=== PATIENT | female | born 1985 | race Caucasian/White ===

== ENCOUNTER 2017-11-26 14:21 | Inpatient (IN) | payer MEDICAID, SELFPAY ==
[2017-11-26] VITALS (18 sets, daily range): BP systolic 106–133; BP diastolic 53–80; PULSE 68–101; RESP 18–19; TEMP 35.9–39.6; O2SAT 95–100
--- NOTE | 2017-11-26 14:46 | ED.GENADUL_ITS ---
Discharge Plan Discharge Details Chief Complaint: Orthopedic Primary Care Provider: Devi Alex ED Provider: Tim Fitzpatrick Home Meds and New Rx's Prescriptions: No Action gabapentin 600 MG tablet PO TID RF: 0 methylphenidate HCl 20 MG tablet 20 mg PO TID RF: 0 buprenorphine-naloxone [Suboxone] 1 EACH film 2 film Sublingual DAILY RF: 0 etonogestrel [Nexplanon] 68 MG implant 1 ea Intradermal DIRECTED RF: 0 escitalopram oxalate [Lexapro] 20 MG tablet 20 g PO DAILY RF: 0 acetaminophen [Tylenol Extra Strength] 500 MG tablet 1,000 mg PO Q6H PRN (Reason: Pain) Qty: 20 RF: 0 ibuprofen 600 MG tablet 600 mg PO Q6H PRN (Reason: Pain) Qty: 16 RF: 0 Medical Decision Making MDM Narrative Medical decision making narrative: 32 yofemale with hx of ivdu on suboxone who recently relapsed, 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 She does have a fever here and is noted to have very red and swollen right knee , likely septic joint. I spoke with Dr. Flores given diffuse redness who recommended proceeding with arthrocentisis which patient consents to. pt remains stable, does have evidence of likely knee infection and on exam has faint systolic murmur at right anterior sternal border. I discussed the case with Dr. Flores who feels she will likely need washout of the knee but will likely due it tomorrow and not tonight and recommends medical admission for workup of possible endocarditis. Spoke with Dr. rivera who accepts the patient for admission. Differential Diagnosis septic joint, cellulitis Lab Data Lab results reviewed: Yes I reviewed the patient's lab results. HPI General Mode of arrival: wheelchair . Date/Time Provider Initiated Documentation: 11/26/17 14:25 . Information obtained by: patient . History of Present Illness 32 year old F presents to the emergency department with the chief complaint of right knee pain, described as severe, with intensity rated at 9. and is localized to the right and upper extremity. Patient reports no radiation. Patient started experiencing this day(s) (2) and it has been constant. No relieving factors improve symptom(s), No exacerbating factors reported . Patient notes no other symptoms.. Patient did receive the following treatments prior to arrival, none Related Data Home Medications Medication Instructions Recorded Confirmed etonogestrel [Nexplanon] 1 ea INTRADERMAL DIRECTED 10/30/16 04/21/17 escitalopram oxalate [Lexapro] 20 g PO DAILY 11/18/16 04/21/17 buprenorphine-naloxone [Suboxone] 2 film SUBLINGUAL DAILY 03/23/17 04/21/17 gabapentin 0 mg PO TID 03/23/17 04/21/17 methylphenidate HCl 20 mg PO TID 03/23/17 04/21/17 Previous Rx's Medication Instructions Recorded acetaminophen [Tylenol Extra 1,000 mg PO Q6H PRN #20 tab-cap 04/21/17 Strength] ibuprofen 600 mg PO Q6H PRN #16 tablet 04/21/17 Allergies Allergy/AdvReac Type Severity Reaction Status Date / Time bupropion HCl AdvReac Intermediate Contraindic Unverified 06/26/17 08:51 [From Wellbutrin SR] ated General Stated Complaint: Orthopedic CELESTE: 3 Review of Systems Review of Systems All systems reviewed & are unremarkable except as noted in HPI and below Constitutional Denies weakness Eyes Patient Denies loss of vision ENT Denies change in voice Cardiovascular Denies chest pain and Denies dyspnea Respiratory Denies dyspnea Gastrointestinal Denies abdominal pain, Denies nausea and Denies vomiting Genitourinary Denies dysuria Neurologic Denies loss of vision and Denies weakness Psychiatric Denies depression Endocrine Denies cold intolerance and Denies heat intolerance Allergic/Immunologic Reports urticaria PFSH Family History Mother No problems noted. Father No problems noted. Brother No problems noted. Grandfather No problems noted. Grandfather No problems noted. Grandmother No problems noted. Grandmother No problems noted. Son No problems noted. Son No problems noted. Daughter No problems noted. Daughter No problems noted. Medical History BV (bacterial vaginosis) Depression HSV infection Hepatitis C antibody test positive Incarceration Long-term current use of methadone for opiate dependence Tobacco use Social History Smoking/Tobacco Use Status: Current every day Surgical History Amputation section (11/24/12) Exam Const General: no acute distress Orientation: alert HENMT Head: normal to inspection Ears: external ears normal General nose exam: external nose normal Mouth: moist mucous membranes Eyes General: appearance normal, both eyes and all related structures Neck Neck: normal visual inspection Resp Effort & Inspection: normal respiratory effort and able to speak in complete sentences Cardio Rate: regular rate Skin General skin exam: erythema Neuro General: alert and oriented x3 Extrem General: normal capillary refill and other (diffuse redness and swelling of the right knee, warm to touch, limited rom) Psych Mental Status: mental status grossly normal Course Vital Signs Temperature 38.1 C H 11/26/17 14:31 Pulse 100 H 11/26/17 14:31 Respiratory Rate 18 11/26/17 14:31 Blood Pressure 121/77 11/26/17 14:31 Pulse Oximetry 98 11/26/17 14:31 Temperature 38.1 C H 11/26/17 14:31 Pulse 100 H 11/26/17 14:31 Respiratory Rate 18 11/26/17 14:31 Blood Pressure 121/77 11/26/17 14:31 Pulse Oximetry 98 11/26/17 14:31 Procedures Joint Aspiration/Injection Joint Asp./Inject. 1: Time Out Performed: Yes Side of body: right Joint Aspirated: knee Ultrasound Guidance: No Skin Prep: Chlorhexidene Local Anesthetic: Lidocaine 2% Amount of anesthesia used (mL): 6 Needle Size Used: 20G Fluid Obtained: bloody Total fluid obtained (mL): 10 Patient Tolerated Procedure: well
[2017-11-26 15:10] LABS: Abs Immature Grans 0.02 k/cumm (0.0-0.09); Absolute Basophil Count 0.02 k/cumm (0.0-0.2); Absolute Eosinophil Count 0.17 k/cumm (0.0-0.7); Absolute Lymphocyte Count 1.91 k/cumm (1.2-3.4); Absolute Monocyte Count 0.76 k/cumm (0.11-0.7); Absolute Neutrophil Count 5.41 k/cumm (1.2-6.7); Basophils % 0.2; Eosinophils % 2.1; HCT 40.6 % (36.0-46.0); HGB 13.5 g/dL (12.0-15.5); Immature Grans % 0.2; Lactate-non-spesis 1.6 mmol/L (0.6-1.4); Mean Corp. HGB Concentration 33.3 g/dL (32.0-36.0); Mean Corpuscular Volume 87.3 fL (80-95); Mean Platelet Volume 9.4 fL (8.0-11.0); Monocytes % 9.2; Neutrophils % 65.3; Platelet Count 263 x1000/uL (130-400); RBC 4.65 m/cumm (4.00-5.20); RBC Distribution Width 13.6 % (11.7-14.6); White Blood Cell Count 8.29 k/cumm (4.4-10.8)
[2017-11-26] MEDS: MORPHine 10 MG/ML VIAL 4 MG IVP ×2 (15:25→16:23)
[2017-11-26] MEDS: Normal Saline 1,000 ML 1000 ML IV (15:26)
[2017-11-26 15:35] LABS: ALT 144 U/L (12-78); AST 55 U/L (15-37); Albumin 4.1 g/dL (3.4-5.0); Alkaline Phosphatase 143 U/L (46-116); BUN 9 mg/dL (7-18); Bilirubin, Total 0.5 mg/dL (0.2-1.0); CREATININE 0.72 mg/dL (0.55-1.02); Calcium 9.1 mg/dL (8.5-10.1); Chloride 97 mmol/L (98-107); Glucose 106 mg/dL (70-100); Magnesium 2.1 mg/dL (1.8-2.4); Sodium 135 mmol/L (136-145); Total Protein 9.2 g/dL (6.4-8.2)
[2017-11-26 15:41] LABS: Clarity CLOUDY; Nucleated Cells 6010 /MM3 (0-0); Source R KNEE
[2017-11-26 16:04] LABS: Mononuclear Cells 14 % (0-0); Polynuclear Cells 86 % (0-0)
[2017-11-26] MEDS: VANCOMYCIN 1,000 MG in Normal Saline 250 ML 166.6666 MG IVPB (17:09)
[2017-11-26] MEDS: VANCOMYCIN 1,250 MG in Normal Saline 250 ML 166.6666 MG IVPB (17:45)
[2017-11-26] MEDS: Ibuprofen 800 MG TAB PO (19:48)
[2017-11-26] MEDS: Acetaminophen 325 MG TAB 650 MG PO (19:49)
--- NOTE | 2017-11-26 20:40 | W.PM.HP.N ---
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 She states that she has been clean for over a year now other than being on prescription suboxone. She is willing to undergo drug screen. At present she wants something for the pain in her right knee. I am only willing to treat her pain w/ NSAID's and will give her Toradol injectable for her pain. I spoke w/ Dr. Flores and he will evaluate her knee in the morning to aspirate the joint. For now she will be kept on broad spectrum antibiotics for presumptive staph bacteremia/septic arthritis/endocarditis until proven otherwise. She was started on Ceftriaxone 2 gm IVPB Q24hr and Vancomycin 1 gm Q8hr. I will ask pharmacy to dose her vancomycin w/ goal of trough of 15 to 20. History of Present Illness Chief Complaint: Fever with right knee pain and swelling and redness Narrative: 32-year-old female with a history of endocarditis and previous osteomyelitis of her right lower leg who is now status post right BKA is into the emergency department with a 2-day history of pain and swelling with redness over her right kneecap. She wears a prosthesis over her right BKA and has a abrasion over the end of the stump without any drainage from that. She states she has been having fevers of 102. Upon evaluation emergency department she was found to have a temperature of 38.1 Celsius. But surprisingly she had no leukocytosis with a total white cell count of 8200. Dr. Tim Fitzpatrick saw the patient and he did a tap of the right knee for which he says he genoveva off pus. Preliminary Gram stain showed no bacteria but many white blood cells. Cell count showed 6000 nucleated cells with 86% PMNs and 14% mononuclear cells in the fluid was cloudy. Fluid culture was sent and blood cultures were obtained and patient was started on broad-spectrum antibiotics including vancomycin. Review of Systems Constitutional Reports as per HPI Musculoskeletal Reports joint swelling (right knee) PFSH Family History Mother No problems noted. Father No problems noted. Brother No problems noted. Grandfather No problems noted. Grandfather No problems noted. Grandmother No problems noted. Grandmother No problems noted. Son No problems noted. Son No problems noted. Daughter No problems noted. Daughter No problems noted. Medical History BV (bacterial vaginosis) Depression HSV infection Hepatitis C antibody test positive Incarceration Long-term current use of methadone for opiate dependence Tobacco use Social History Smoking/Tobacco Use Status: Current every day Surgical History Amputation section (11/24/12) Meds Home Medications Medication Instructions Recorded Confirmed Type etonogestrel [Nexplanon] 1 ea INTRADERMAL DIRECTED 10/30/16 04/21/17 History escitalopram oxalate [Lexapro] 20 g PO DAILY 11/18/16 04/21/17 History buprenorphine-naloxone [Suboxone] 2 film SUBLINGUAL DAILY 03/23/17 11/27/17 History gabapentin 0 mg PO TID 03/23/17 11/27/17 History methylphenidate HCl 20 mg PO TID 03/23/17 11/27/17 History Allergies Allergy/AdvReac Type Severity Reaction Status Date / Time bupropion HCl AdvReac Intermediate Contraindic Unverified 06/26/17 08:51 [From Wellbutrin SR] ated Exam Const General: cooperative, well developed and ill appearing Nutritional Appearance: thin Orientation: alert, awake and oriented x3 HENMT Head: normal to inspection, normocephalic and atraumatic Ears: hearing grossly normal bilaterally General nose exam: external nose normal Face and sinus: normal facial exam Mouth: oral mucosae normal Eyes General: appearance normal, both eyes and all related structures Eyelids: eyelids normal Conjunctivae: conjunctivae normal Sclera: sclerae normal Cornea: corneas normal Pupils: PERRL EOM: EOM intact bilaterally Neck Neck: normal visual inspection, full ROM and no lymphadenopathy Carotids: normal carotid upstroke Lymphatic: no lymphadenopathy noted Resp Effort & Inspection: normal respiratory effort and able to speak in complete sentences Auscultation: clear to auscultation bilaterally Cardio Jugular venous pressure: no JVD Palpation: normal PMI Rate: regular rate Rhythm: regular rhythm Heart Sounds: S2 normal, normal, physiologic split S2 and murmur systolic early, crescendo, soft and at the apex Bruits: no abdominal aortic bruits and no carotid bruits GI Inspection: normal to inspection Palpation: soft, no hepatosplenomegaly and nontender Percussion: normal to percussion Auscultation: normal bowel sounds Skin General skin exam: erythema (over right patella) Neuro General: alert, awake, oriented x3, moves all extremities, normal light touch, pain and propioception and no focal motor deficits Extrem General: amputation noted Below the knee: right and edema Laterality: right Right lower extremity: knee Details: tenderness Location: of the patella Details: superiorly and swelling Location: of the pre-patellar area Results Imaging Imaging Studies: Patient Name: Tosha ROBERTS #: [id number]: ER Ordering Provider: Reymundo George NPAccount #: [id number]: [facility] ER Primary Care Provider: Devi Alex NPDate of Exam: 04/21/17ex: F : 1985Age: 31 Exam(s) [id number] RAD:Right Knee 3 View Complete [id number] RAD:Right Tib/Fib SYMPTOMS/DIAGNOSIS: BLUNT TRAUMA TO RIGHT KNEE, S/P [id number] AMPUTATION, FALL ONTO AMPUTATION RIGHT KNEE: Three views were obtained. No fracture is seen. RIGHT LEG: Two views were obtained. There is a [id number]-[id number]-[id number] amputation with multiple surgical clips projected at the amputation site. There is no evidence of acute fracture. Ordered By: Reymundo George SORT LINE CC: Dictated By: Joesph Lyman M.D. 04/21/17 1518 <Electronically signed by Joesph Lyman M.D.> 04/21/17 1529 Transcribed By: Arnold Cain 04/21/17 1522 Labs : 11/26/17 15:00 11/27/17 07:30 Laboratory Results - last 24 hr 11/26/17 11/26/17 11/26/17 15:00 15:00 15:00 WBC 8.29 RBC 4.65 Hgb 13.5 Hct 40.6 MCV 87.3 MCH 29.0 MCHC 33.3 RDW 13.6 Plt Count 263 MPV 9.4 Immature Gran % 0.2 Neutrophils % 65.3 Lymphocytes % 23.0 Monocytes % 9.2 Eosinophils % 2.1 Basophils % 0.2 Absolute Neutrophils 5.41 Absolute Lymphocytes 1.91 Absolute Monocytes 0.76 H Absolute Eosinophils 0.17 Absolute Basophils 0.02 Sodium 135 L Potassium 4.0 Chloride 97 L Carbon Dioxide 28.0 Anion Gap 10.0 BUN 9 Creatinine 0.72 Estimated GFR/1.73 m2 >= 60.00 Glucose 106 H Lactate 1.6 H Calcium 9.1 Magnesium 2.1 Total Bilirubin 0.5 AST 55 H ALT 144 H Alkaline Phosphatase 143 H Total Protein 9.2 H Albumin 4.1 Fluid Source Fluid Color Fluid Appearance Fluid WBC Fluid Mononuclear Cell Fl Polymorphonucl Cell Fluid Crystals Fluid Crystal Source 11/26/17 11/26/17 15:06 15:06 WBC RBC Hgb Hct MCV MCH MCHC RDW Plt Count MPV Immature Gran % Neutrophils % Lymphocytes % Monocytes % Eosinophils % Basophils % Absolute Neutrophils Absolute Lymphocytes Absolute Monocytes Absolute Eosinophils Absolute Basophils Sodium Potassium Chloride Carbon Dioxide Anion Gap BUN Creatinine Estimated GFR/1.73 m2 Glucose Lactate Calcium Magnesium Total Bilirubin AST ALT Alkaline Phosphatase Total Protein Albumin Fluid Source R knee Fluid Color Red Fluid Appearance Cloudy Fluid WBC 6010 H Fluid Mononuclear Cell 14 H Fl Polymorphonucl Cell 86 H Fluid Crystals See comment Fluid Crystal Source R knee
[2017-11-26] MEDS: Gabapentin 600 MG TAB PO (21:46)
[2017-11-26] MEDS: oxyCODONE 10 MG TAB PO (21:46)
[2017-11-26] MEDS: Normal Saline Flush 10 ML SYR IVP (21:55)
[2017-11-27] VITALS (23 sets, daily range): BP systolic 93–146; BP diastolic 44–81; PULSE 56–141; RESP 11–22; TEMP 36.3–37; O2SAT 95–100
[2017-11-27] MEDS: Ketorolac 30 MG/ML VIAL IVP ×3 (04:17→19:59)
[2017-11-27] MEDS: Normal Saline Flush 10 ML SYR IVP ×3 (04:20→22:49)
[2017-11-27] MEDS: VANCOMYCIN 1,000 MG in Normal Saline 250 ML 166.667 MG IVPB ×3 (06:52→21:18)
[2017-11-27] MEDS: Methylphenidate 10 MG TAB 20 MG PO ×3 (07:54→17:00)
[2017-11-27] MEDS: Gabapentin 600 MG TAB PO ×3 (07:55→19:58)
[2017-11-27 08:00] LABS: ALT 86 U/L (12-78); AST 30 U/L (15-37); Albumin 2.6 g/dL (3.4-5.0); Alkaline Phosphatase 88 U/L (46-116); Anion Gap 6.4 mmol/L (3-11); BUN 12 mg/dL (7-18); Bilirubin, Total 0.2 mg/dL (0.2-1.0); CO2 24.6 mmol/L (21.0-32.0); CREATININE 0.53 mg/dL (0.55-1.02); Calcium 8.2 mg/dL (8.5-10.1); Chloride 107 mmol/L (98-107); Glucose 115 mg/dL (70-100); Potassium 4.3 mmol/L (3.5-5.1); Sodium 138 mmol/L (136-145); Total Protein 6.4 g/dL (6.4-8.2)
--- NOTE | 2017-11-27 08:05 | MERGE_ITS ---
*[facility]* *[facility]* [address] [place] [address] Date of study: 11/27/2017 Transthoracic Echocardiography M-mode, complete 2D, complete spectral Doppler, and color Doppler *STUDY CONCLUSIONS* Impressions: No evidence of endocarditis, however, sensitivity for this finding on TTE is < 50%. LV/RV function has improved. Summary: 1. Left ventricle: The cavity size was normal. Wall thickness was normal. Systolic function was normal. The estimated ejection fraction was 55-60%. Wall motion was normal; there were no regional wall motion abnormalities. 2. Mitral valve: Mild thickening. There was mild regurgitation. 3. Right ventricle: The cavity size was normal. Wall thickness was normal. Systolic function was normal. 4. Pulmonic valve: Peak gradient (S): 6.7mm Hg. *PATIENT PRESENTATION* Height: 172.7cm ((68in) ) S/D Pressure: 115 / 70 Weight: 55.8kg ((122.7lb) ) BSA: 1.63m^2 Test start time: 08:05 AM. Test stop time: 09:12 AM. PERFORMING Unknown PERFORMING [facility] ORDERING Robbin Curtis REFERRING Robbin Curtis VICE PRESIDENT OF BUSINESS DEVELOPMENT Mary Felix *PROCEDURE DATA* Procedure information: This study was interpreted by [facility]. Pertinent images and digital data are archived for permanent storage and are available for subsequent review. Comparison was made to the study of 11/27/2016. Study status: Routine. Transthoracic echocardiography. M-mode, complete 2D, complete spectral Doppler, and color Doppler. A Transthoracic Echocardiogram was performed. Scanning was performed from the parasternal, apical, subcostal, and suprasternal notch acoustic windows. Images were obtained using an [employer] SC 2000 cardiac ultrasound machine. Image quality was fair. Study completion: The patient tolerated the procedure well. History: PMH: Hx endocarditis, Sepitc *CARDIAC ANATOMY* Left ventricle: The cavity size was normal. Wall thickness was normal. Systolic function was normal. The estimated ejection fraction was 55-60%. Wall motion was normal; there were no regional wall motion abnormalities. The study is not technically sufficient to allow evaluation of LV diastolic function. There was no evidence of elevated ventricular filling pressure by Doppler parameters. Aortic valve: Trileaflet; normal thickness leaflets. Mobility was not restricted. Doppler: Transvalvular velocity was within the normal range. There was no stenosis. There was no regurgitation. VTI ratio of LVOT to aortic valve: 0.79. Peak velocity ratio of LVOT to aortic valve: 0.77. Mean velocity ratio of LVOT to aortic valve: 0.62. Mean gradient (S): 6.2mm Hg. Peak gradient (S): 9.7mm Hg. Aorta: Aortic root: The aortic root was normal in size. Mitral valve: Mild thickening. Mobility was not restricted. Doppler: Transvalvular velocity was within the normal range. There was no evidence for stenosis. There was mild regurgitation. Valve area by pressure half-time: 4.7cm^2. Indexed valve area by pressure half-time: 2.9cm^2/m^2. Peak gradient (D): 2.7mm Hg. Left atrium: The atrium was normal in size. Right ventricle: The cavity size was normal. Wall thickness was normal. Systolic function was normal. Pulmonic valve: Poorly visualized. Doppler: Transvalvular velocity was within the normal range. There was no evidence for stenosis. There was no regurgitation. Peak gradient (S): 6.7mm Hg. Tricuspid valve: Structurally normal valve. Doppler: Transvalvular velocity was within the normal range. There was no evidence for stenosis. There was trivial regurgitation. Pulmonary artery: Pulmonary systolic pressure was within the normal range. Main pulmonary artery: The artery was not well visualized. Right atrium: The atrium was normal in size. Pericardium: There was no pericardial effusion. Systemic veins: Inferior vena cava: The vessel was patent and normal in size. The respirophasic diameter changes were in the normal range (greater than or equal to 50%), consistent with normal central venous pressure. Measurements Left ventricle Value 11/27/2016 Reference LV ID, ED, PLAX 4.6 cm 4.8 3.5 - 6.0 LV ID, ES, PLAX 2.9 cm 3.7 2.1 - 4.0 LV PW thickness, ED, PLAX 0.8 cm 0.9 LV end-diastolic volume, 1-p 106 ml 85 A2C LV ejection fraction, 1-p 59 % A2C LV end-diastolic volume, 1-p 86 ml 76 A4C LV ejection fraction, 1-p 56 % A4C Ventricular septum Value 11/27/2016 Reference IVS thickness, ED, PLAX 0.7 cm 1.0 LVOT Value 11/27/2016 Reference LVOT peak velocity, S 1.2 m/sec 1.3 LVOT mean velocity, S 0.75 m/sec LVOT VTI, S 19.7 cm 19.2 LVOT peak gradient, S 5.7 mm Hg 6.7 LVOT mean gradient, S 2.7 mm Hg 3.1 Aortic valve Value 11/27/2016 Reference Aortic valve peak velocity, 1.6 m/sec S Aortic valve mean velocity, 1.2 m/sec S Aortic valve VTI, S 25.1 cm Aortic mean gradient, S 6.2 mm Hg Aortic peak gradient, S 9.7 mm Hg VTI ratio, LVOT/AV 0.79 Velocity ratio, peak, 0.77 LVOT/AV Velocity ratio, mean, 0.62 LVOT/AV Aorta Value 11/27/2016 Reference Aortic root ID, ED 2.9 cm 2.8 Left atrium Value 11/27/2016 Reference LA ID, A-P, ES 3.0 cm LA ID/bsa, A-P 1.9 cm/m^2 <=2.2 LA area, ES, A4C 12.9 cm^2 14 8.8 - 23.4 LA area, ES, A2C 13 cm^2 LA volume/bsa, S 23 ml/m^2 LA volume, ES, 2-p 34 ml LA volume/bsa, ES, 2-p 21 ml/m^2 LA/aortic root ratio 1.05 1.18 Mitral valve Value 11/27/2016 Reference Mitral E-wave peak velocity 0.82 m/sec 0.91 Mitral A-wave peak velocity 1 m/sec 0.87 Mitral deceleration time 162 ms 150 - 230 Mitral pressure half-time 47 ms 44 Mitral peak gradient, D 2.7 mm Hg Mitral E/A ratio, peak 0.82 1.05 Mitral valve area, PHT, DP 4.7 cm^2 5 Right atrium Value 11/27/2016 Reference RA area, ES, A4C 9.5 cm^2 13 8.3 - 19.5 Pulmonic valve Value 11/27/2016 Reference Pulmonic peak gradient, S 6.7 mm Hg Legend: (L) and (H) carissa values outside specified reference range. I have personally reviewed the images and have reviewed and edited the reported findings. Electronically signed by Ermelinda Balderrama 11/27/2017:41
[2017-11-27 08:38] LABS: *AMPHETAMINES SCREEN URINE Negative (Negative); *BARBITURATES SCREEN URINE Negative (Negative); *BENZODIAZEPINES SCREEN URINE Negative (Negative); Cannabinoids THC Negative (Negative); Cocaine Screen,Urine Negative (Negative); METHADONE URINE SCREEN Negative (Negative); OPIATES URINE SCREEN Negative (Negative)
[2017-11-27 08:39] LABS: Tricyclic Antidepressants Negative (Negative)
[2017-11-27] MEDS: Lactated Ringers 1,000 ML 200 ML IV (09:40)
[2017-11-27 10:13] LABS: HCG Qual (Urine) Negative
[2017-11-27] MEDS: LORazepam 2 MG/ML VIAL 1 MG IVP ×2 (11:44→23:58)
--- NOTE | 2017-11-27 11:47 | PHARADMIT ---
Addendum entered by Konstantin Arias III 12/03/17 12:43: Pharmacy Note Subjective MD spoke to [facility], DEBORAH showed vegetation on heart valves. Smiley case. Oxacillin started. MRI of knee showed no osteo only pre-patelar swelling. Objective VS-OK Lytes, SCr, WBC, H&H,Plts-OK BG-135 Last BM 11/29 Assessment Oxacillin 2gm IV q4hrs started x 6 weeks. Plan IV restarted, (4th restart). Patient need 6 weeks of IV ABX. Original Note: Addendum entered by Konstantin Arias III 12/02/17 15:02: Pharmacy Note Subjective Patient had DEBORAH today (no results yet) wwill follow with CAT scan and then determine if 6 weeks of IV ABX are warranted. Spiked fever (38.5C) Objective Temp-37.4C VS-OK SCr-0.61 (Vanco trough-24.6) No other Labs, No BM reported since 11/29 Assessment Vancomycin dose adjusted to 1,250mg IV q8hr, restarting at 1800 Plan Patient not pleased at the prospect of 6weeks of IV ABX Original Note: Addendum entered by Konstantin Arias III 11/30/17 10:44: Pharmacy Note Subjective Spiked fever (38.C) BP-up (151/92). Stump infection of BKA, awaiting sensitivities. Objective K+4.6 Na-140 H&H-9.7/30.3 WBC-4.62 Assessment Vancomycin trough mis-drawn, reschedule trough for 1300 today. Jennifer Case Plan MD to schedule DEBORAH, patient refuses Drug Urine screening. MD suspects illicit activities in her room. Original Note: Addendum entered by Khloe Gibson 11/29/17 14:06: vanco trough came back low at 12.9, so vanco dosing changed to 1 gram Q6H to target a trough of 16.3 vanco trough scheduled for tomorrow morning at @0700 suboxone dosing was increased starting tomorrow Original Note: Addendum entered by Khloe Gibson 11/29/17 09:58: Pharmacy Note Subjective md wants to avoid opiates for pain control as much as possible (currently none ordered) Objective bp-144/100 hr-92 h/h-9.7/30.3 Assessment -synovial knee culture grew staph, one of the two blood cultures grew gram+ cocci, other had no growth -vanco and ceftriaxone continue, vanco trough scheduled for this afternoon duloxetine ordered, acetaminophen changed from PO PRN to IV scheduled, IV ketorolac discontinued, lorazepam discontinued Plan adjust vanco dosing if needed based on trough this afternoon Original Note: Admission Pharmacy Clinical Review dysphagia Code Status Full Code Current Weight 56.245 kg Renally Cleared and Narrow Therapeutic Index Meds crcl ~104ml/min QTc Value / Action Taken BP Control, Fever 125/63 afebrile Electrolytes reviewed ok DVT Prophylaxis no, surgery today Opiate Usage / Scheduled Bowel Regimen Ordered no/prn Plt/SCr for Heparin / Enoxaparin 263/0.53 INR for Warfarin na H/H stable, WBC/Bands 13.5/40.6 wbc 8.29 Antibiotic appropriateness vanco, one dose ceftriaxone given yesterday Cultures and Sensitivities Bc pending, synovial knee fluid no growth 24 hours Surgical ABX d/c within 24 hr na DM control / Insulin Dosing na Heart Failure (Check EF%) (ANABELLA's, B-Block, Diuretics) na IV to PO Switch Home Meds Reviewed Home Meds Not Ordered etonogestrel [Nexplanon] 1 ea INTRADERMAL DIRECTED 10/30/16 escitalopram oxalate [Lexapro] 20 g PO DAILY 11/18/16 buprenorphine-naloxone [Suboxone] 2 film SUBLINGUAL DAILY 03/23/17 ibuprofen 600 mg PO Q6H PRN #16 tablet 04/21/17 [Rx] Comments
--- NOTE | 2017-11-27 12:09 | ROE_ITS ---
DATE OF PROCEDURE: November 27, 2017 PREOPERATIVE DIAGNOSIS: Possible septic arthritis right knee. POSTOPERATIVE DIAGNOSIS: Prepatellar bursa infection, right. PROCEDURE: 1. Aspiration right knee. 2. Aspiration prepatellar bursa, right. ANESTHESIA: General, Arron Hillman CRNA SURGEON: Joesph Flores M.D. 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 She was being treated with Suboxone but admits that she has lapsed and has begun injecting opioids again . She presented to the Emergency Room yesterday with a painful, erythematous and swollen right knee. Tim Fitzpatrick M.D. initially saw her and performed an aspiration of her knee at my direction. The aspiration revealed 6000 white cells, 80% of them polys. It was presumed that she had a septic arth ritis of her right knee. This was decided when she had the previous below knee amputation for osteom yelitis. It was felt that she needed an arthroscopic washout to treat her infection. It would also require prolonged IV antibiotic administration for the infection. This would require insertion of a PICC line. The patient was taken to the operating room on 11/26/17 directly from the cardiac echo. I had not had a chance to see the patient until she presented to the operating room. On examination in PACU I tho ught that the patient actually had a prepatellar bursa infection. I thought that the aspiration that had been performed had been of the prepatellar bursa and not her knee. The nurse who inserts the PI CC line was not available. IV access was a problem. I discussed her case fully with Denisse the Nurse Supervisor [employer]. I felt that she probably will not need an arthroscopic washout of her knee. In order to confirm the diagnosis, I recommended that they star t a midline IV. I don't think that she's going to need anything long-term IV. I then would proceed to aspirate her knee. If there was no fluid in her knee, I would then proceed to aspirate the prepat ellar bursa in order to confirm that this is a prepatellar bursa infection. I would not recommend an y surgical procedure for a prepatellar bursa infection. If fluid is retrieved from the knee, would p roceed with a formal arthroscopic washout of her knee. The patient agreed with my treatment plan. PROCEDURE: The patient was taken to the operating room, placed supine on the operating table and a g eneral anesthetic was administered. With a sterile technique I inserted an 18 gauge needle into her knee, along with a 20 cc syringe. I was not able to aspirate any fluid from her knee. I then took a new 18 gauge needle with a 20 cc syringe and inserted it in the prepatellar bursa. I removed about 10 cc's of some bloody fluid from the prepatellar bursa. I felt at this point that the diagnosis was confirmed that this was a prepatellar bursa infection and not a septic arthritis of her right knee. The patient's anesthesia was reversed without complications. She was discharged to recovery in good condition.
--- NOTE | 2017-11-27 12:33 | PDOC.ANES ---
Date of service: 11/27/17 Time of Service: 09:40 Midline Placement: Consent received after patient made aware and all questions answered. Time out performed. Left upper arm cleaned with chlorhexadine. Ultrasound used to obtain target vessel (basilic Vein). Lidocaine injected into skin/subcutaneously. 20 gauge Powerglide pro midline catheter placed under direct ultrasound visualization and flash obtained. Guidewire advanced without resistance and catheter advanced into vessel with ease. Positive venous blood return noted and line connected to crystalloid fluid. Line dressed with statlock device and tegaderm. Positive blood return and easy to flush line. No complications encountered with this one provider one attempt procedure. Pt. tolerated very well.
--- NOTE | 2017-11-27 13:37 | W.PM.PROGNOT ---
Date of service: 11/27/17 Time of Service: 13:37 Assessment and Plan (1) Prepatellar bursitis of right knee: Current visit: No Status: Acute Continue broad-spectrum antibiotics until we get the results of her blood cultures and prepatellar bursal fluid culture. Continue NSAIDs for pain control. Patient's been resumed on her outpatient dose of Suboxone. No further narcotics will be ordered for her pain. Await results of her cultures and if no bacteremia then she can be discharged over the weekend on oral antibiotics, however, given her prior hx of endocarditis and osteomyelitis, I would await all culture reports and sensitivities before making a disposition and deciding on oral agents. I would even consider observation on oral antibiotics for 24 hr before discharge if the patient will allow. Case was reviewed w/ Dr. Flores Subjective Interval history since last seen: Patient's fevers have come down overnight since initiation of IV antibiotics. She is currently afebrile at 36.3. Dr. Flores took the patient to surgery and drain the right knee prepatellar bursa which was the source of her infection. Dr. Flores showed me pictures of her knee and indicated that she did not have a joint infection but had a prepatellar bursitis and that the site of aspiration perform by the emergency room personnel was from the prepatellar bursa and not from the knee joint itself. The preliminary reading on the right knee aspirate culture is that there is no growth. Analysis for crystals showed no evidence for crystals in the fluid. Blood cultures from yesterday are still pending. She remains on vancomycin and ceftriaxone empirically. Patient underwent an transthoracic echocardiogram this morning and no vegetations were seen. However the caveat is that a transthoracic echo is less than 50% sensitive for picking up endocarditis. Her left ventricular cavity size was normal with normal wall thickness and normal systolic function with no regional wall motion abnormalities. Mitral valve showed mild thickening with mild regurgitation. Right ventricular cavity size and wall thickness and systolic function was normal. I told Denisse that as long as her blood cultures show no evidence of bacteremia then she could be discharged home on oral antibiotics but I would not discharge her until we get the results of both her blood cultures and her prepatellar bursal fluid culture. For now keep her on ceftriaxone and vancomycin given her prior history of endocarditis. Exam Narrative Exam Narrative: I met Denisse in the intensive care unit after she had been brought back from surgery and nursing staff is getting ready to wheel her out to the medical/surgical floor. Examination of her right knee shows a marked decrease in the swelling and erythema. The prepatellar surface of her knee still has some mild to moderate erythema but the increased warmth that was noted last night has resolved. Furthermore her knee is less tender. Although the patient is requesting further Toradol. Objective Objective Clinical Data: Abnormal lab results 11/26/17 11/26/17 11/26/17 Range/Units 15:00 15:00 15:00 Absolute Monocytes 0.76 H (0.11-0.7) k/cumm Sodium 135 L (136-145) mmol/L Chloride 97 L (98-107) mmol/L Creatinine (0.55-1.02) mg/dL Glucose 106 H (70-100) mg/dL Lactate 1.6 H (0.6-1.4) mmol/L Calcium (8.5-10.1) mg/dL AST 55 H (15-37) U/L ALT 144 H (12-78) U/L Alkaline Phosphatase 143 H (46-116) U/L Total Protein 9.2 H (6.4-8.2) g/dL Albumin (3.4-5.0) g/dL Fluid WBC (0-0) /MM3 Fluid Mononuclear Cell (0-0) % Fl Polymorphonucl Cell (0-0) % 11/26/17 11/27/17 Range/Units 15:06 07:30 Absolute Monocytes (0.11-0.7) k/cumm Sodium (136-145) mmol/L Chloride (98-107) mmol/L Creatinine 0.53 L (0.55-1.02) mg/dL Glucose 115 H (70-100) mg/dL Lactate (0.6-1.4) mmol/L Calcium 8.2 L (8.5-10.1) mg/dL AST (15-37) U/L ALT 86 H (12-78) U/L Alkaline Phosphatase (46-116) U/L Total Protein (6.4-8.2) g/dL Albumin 2.6 L (3.4-5.0) g/dL Fluid WBC 6010 H (0-0) /MM3 Fluid Mononuclear Cell 14 H (0-0) % Fl Polymorphonucl Cell 86 H (0-0) % Vital Signs Temp 36.3 C L 11/27/17 13:11 Pulse 100 H 11/27/17 13:11 Resp 20 11/27/17 13:11 BP 133/73 11/27/17 13:11 Pulse Ox 100 11/27/17 13:11 Intake & Output 11/26/17 11/27/17 11/27/17 23:59 11:59 23:59 Intake Total 1810 / 1810 602.778 / 602.778 150 / 150 Output Total 900 / 900 Balance 1810 / 1810 -297.222 / -297.222 150 / 150 Weight 56.245 kg Intake: IV 250 / 250 602.778 / 602.778 150 / 150 Oral 1560 / 1560 Output: Urine 900 / 900 Other: Urine Color Yellow Urine Appearance Cloudy Emesis Description None None Laboratory Results WBC 8.29 k/cumm (4.4-10.8) 11/26/17 15:00 RBC 4.65 m/cumm (4.00-5.20) 11/26/17 15:00 Hgb 13.5 g/dL (12.0-15.5) 11/26/17 15:00 Hct 40.6 % (36.0-46.0) 11/26/17 15:00 MCV 87.3 fL (80-95) 11/26/17 15:00 MCH 29.0 pg (27.0-33.0) 11/26/17 15:00 MCHC 33.3 g/dL (32.0-36.0) 11/26/17 15:00 RDW 13.6 % (11.7-14.6) 11/26/17 15:00 Plt Count 263 x1000/uL (130-400) 11/26/17 15:00 MPV 9.4 fL (8.0-11.0) 11/26/17 15:00 Immature Gran % 0.2 11/26/17 15:00 Neutrophils % 65.3 11/26/17 15:00 Lymphocytes % 23.0 11/26/17 15:00 Monocytes % 9.2 11/26/17 15:00 Eosinophils % 2.1 11/26/17 15:00 Basophils % 0.2 11/26/17 15:00 Absolute Neutrophils 5.41 k/cumm (1.2-6.7) 11/26/17 15:00 Absolute Lymphocytes 1.91 k/cumm (1.2-3.4) 11/26/17 15:00 Absolute Monocytes 0.76 k/cumm (0.11-0.7) H 11/26/17 15:00 Absolute Eosinophils 0.17 k/cumm (0.0-0.7) 11/26/17 15:00 Absolute Basophils 0.02 k/cumm (0.0-0.2) 11/26/17 15:00 Sodium 138 mmol/L (136-145) 11/27/17 07:30 Potassium 4.3 mmol/L (3.5-5.1) 11/27/17 07:30 Chloride 107 mmol/L (98-107) 11/27/17 07:30 Carbon Dioxide 24.6 mmol/L (21.0-32.0) 11/27/17 07:30 Anion Gap 6.4 mmol/L (3-11) 11/27/17 07:30 BUN 12 mg/dL (7-18) 11/27/17 07:30 Creatinine 0.53 mg/dL (0.55-1.02) L 11/27/17 07:30 Estimated GFR/1.73 m2 >= 60.00 (mL/min/1.73m2) 11/27/17 07:30 Glucose 115 mg/dL (70-100) H 11/27/17 07:30 Lactate 1.6 mmol/L (0.6-1.4) H 11/26/17 15:00 Calcium 8.2 mg/dL (8.5-10.1) L 11/27/17 07:30 Magnesium 2.1 mg/dL (1.8-2.4) 11/26/17 15:00 Total Bilirubin 0.2 mg/dL (0.2-1.0) 11/27/17 07:30 AST 30 U/L (15-37) 11/27/17 07:30 ALT 86 U/L (12-78) H 11/27/17 07:30 Alkaline Phosphatase 88 U/L (46-116) 11/27/17 07:30 Total Protein 6.4 g/dL (6.4-8.2) 11/27/17 07:30 Albumin 2.6 g/dL (3.4-5.0) L 11/27/17 07:30 Urine HCG, Qual Negative 11/27/17 07:58 Fluid Source R knee 11/26/17 15:06 Fluid Color Red 11/26/17 15:06 Fluid Appearance Cloudy 11/26/17 15:06 Fluid WBC 6010 /MM3 (0-0) H 11/26/17 15:06 Fluid Mononuclear Cell 14 % (0-0) H 11/26/17 15:06 Fl Polymorphonucl Cell 86 % (0-0) H 11/26/17 15:06 Fluid Crystals See comment 11/26/17 15:06 Fluid Crystal Source R knee 11/26/17 15:06 Fl Crystal Path Review See comment 11/26/17 15:06 Urine Opiates Screen Negative (Negative) 11/27/17 07:58 Urine Methadone Screen Negative (Negative) 11/27/17 07:58 Ur Barbiturates Screen Negative (Negative) 11/27/17 07:58 Ur Tricyclics Screen Negative (Negative) 11/27/17 07:58 Ur Amphetamines Screen Negative (Negative) 11/27/17 07:58 U Benzodiazepines Scrn Negative (Negative) 11/27/17 07:58 Urine Cocaine Screen Negative (Negative) 11/27/17 07:58 Ur THC Screen Negative (Negative) 11/27/17 07:58 Path Cons Comment 11/26/17 15:06
--- NOTE | 2017-11-27 14:17 | PDOC.CMIN ---
- If Service Date Differs Date of service: 11/27/17 Time of Service: 14:17 Care Management Initial Assess REASON FOR HOSPITALIZATION:: Prepatellar brusitis of right knee. PAST MEDICAL HISTORY/PAST SURGICAL HISTORY:: Endocarditis, sepsis, Hep C, HSV, staphylococcus aureus bacteremia, mitral and tricuspid regurgitation, acute kidney injury, respiratory failure, opioid dependence, anemia, anxiety, PE, osteomyelitis. Surgical hx: R BKA, section. PREVIOUS FUNCTIONAL STATUS/SOCIAL/FAMILY SUPPORTS:: Denisse resides in [facility] in her mother's home. Her mother has custody of her 2 1/2 year old daughter, Jessica, who lives with them. Denisse had been working at the [employer] up until recently. She stopped working due to the long hours on her feet; Denisse has a right BKA. Denisse has a prosthetic leg and reports that she is getting a new one d/t changes in her stump size. She is independent with her ADLs. CURRENT FUNCTIONAL STATUS:: Denisse is sitting in her bed with boyfriend, Carlos, and two friends (one of whom is a pt at [facility]) at bedside. She is engaged in conversation, makes good eye contact and is talkative. She is receiving IV fluids and antibiotics and is being monitored on telemetry. ADVANCE DIRECTIVES:: None on file at [facility]. Has patient been provided with information about the portal?: No Did the patient sign up for the portal?: No CODE STATUS:: Full Code INSURANCE COVERAGE / FINANCIAL ISSUES:: Medicaid. CURRENT HOME/COMMUNITY SERVICES/EQUIPMENT:: No current home or community services. Denisse is interested in applying for disability. She has a prosthetic leg d/t a right BKA. PRIMARY CARE PHYSICIAN:: Devi Alex is on file, however Denisse reports that her PCP is Berenice Pavon. POTENTIAL DISCHARGE NEEDS:: Follow up appointment with PCP. PATIENT/FAMILY EDUCATION NEEDS:: Discharge education, any limitations and follow up plan of care. Ask Me Three discussion. ANTICIPATED BARRIERS TO DISCHARGE:: No anticipated barriers to discharge. TRANSPORTATION:: Denisse will transport via private vehicle with her boyfriend, Carlos. PLAN:: Denisse will discharge home when medically ready per MD. Anticipate pt will discharge with no services and follow up with PCP. Denisse will transport via private vehicle with her boyfriend, Carlos. CM will continue to provide support to patient and care team regarding discharge planning and disposition.
--- NOTE | 2017-11-27 14:37 | INITIAL_ITS ---
- If Service Date Differs Date of service: 11/27/17 Time of Service: 14:17 Care Management Initial Assess REASON FOR HOSPITALIZATION:: Prepatellar brusitis of right knee. PAST MEDICAL HISTORY/PAST SURGICAL HISTORY:: Endocarditis, sepsis, Hep C, HSV, staphylococcus aureus bacteremia, mitral and tricuspid regurgitation, acute kidney injury, respiratory failure, opioid dependence, anemia, anxiety, PE, osteomyelitis. Surgical hx: R BKA, section. PREVIOUS FUNCTIONAL STATUS/SOCIAL/FAMILY SUPPORTS:: Denisse resides in [facility] in her mother's home. Her mother has custody of her 2 1/2 year old daughter, Jessica, who lives with them. Denisse had been working at the [employer] up until recently. She stopped working due to the long hours on her feet; Denisse has a right BKA. Denisse has a prosthetic leg and reports that she is getting a new one d/t changes in her stump size. She is independent with her ADLs. CURRENT FUNCTIONAL STATUS:: Denisse is sitting in her bed with boyfriend, Carlos, and two friends (one of whom is a pt at [facility]) at bedside. She is engaged in conversation, makes good eye contact and is talkative. She is receiving IV fluids and antibiotics and is being monitored on telemetry. ADVANCE DIRECTIVES:: None on file at [facility]. Has patient been provided with information about the portal?: No Did the patient sign up for the portal?: No CODE STATUS:: Full Code INSURANCE COVERAGE / FINANCIAL ISSUES:: Medicaid. CURRENT HOME/COMMUNITY SERVICES/EQUIPMENT:: No current home or community services. Denisse is interested in applying for disability. She has a prosthetic leg d/t a right BKA. PRIMARY CARE PHYSICIAN:: Devi Alex is on file, however Denisse reports that her PCP is Berenice Pavon. POTENTIAL DISCHARGE NEEDS:: Follow up appointment with PCP. PATIENT/FAMILY EDUCATION NEEDS:: Discharge education, any limitations and follow up plan of care. Ask Me Three discussion. ANTICIPATED BARRIERS TO DISCHARGE:: No anticipated barriers to discharge. TRANSPORTATION:: Denisse will transport via private vehicle with her boyfriend, Carlos. PLAN:: Denisse will discharge home when medically ready per MD. Anticipate pt will discharge with no services and follow up with PCP. Denisse will transport via private vehicle with her boyfriend, Carlos. CM will continue to provide support to patient and care team regarding discharge planning and disposition.
[2017-11-27] MEDS: Acetaminophen 500 MG TAB 1000 MG PO (18:50)
[2017-11-27] MEDS: Buprenorphine/Naloxone 8 mg/2 mg FILM 1 EACH SL (19:58)
[2017-11-27] MEDS: Nicotine 21 MG/24 HR PATCH TD (23:56)
[2017-11-28] VITALS (7 sets, daily range): BP systolic 116–135; BP diastolic 70–85; PULSE 72–141; RESP 18–20; TEMP 36.6–37.2; O2SAT 97–99
[2017-11-28] MEDS: Normal Saline Flush 10 ML SYR IVP ×5 (00:13→21:29)
[2017-11-28] MEDS: Ketorolac 30 MG/ML VIAL IVP ×4 (00:44→21:30)
--- NOTE | 2017-11-28 01:30 | NUR.NOTE ---
Nursing Note: Pt cried out of pain on right knee, rated 10 continuously. Affected knee is red and swollen and warmth to touched. Ice pack applied and no relief as verbalized. MD economic forecaster called by Charge nurse and ordered to give scheduled Toradol at 02:00. Pt stated of med not effective. Refused to take tylenol as PRN. Advised to elevate affected BKA on pillow. Nicotine patch applied on left shoulder and Ativan 0.5 mg administered IVP as PRN. Fiancee at bedside. Pt keeps on taking off tele monitor. Requested to get more food at bedtime. Nursing will continue to monitor.
[2017-11-28] MEDS: Methylphenidate 10 MG TAB 20 MG PO ×3 (06:14→14:38)
[2017-11-28] MEDS: VANCOMYCIN 1,000 MG in Normal Saline 250 ML 166.667 MG IVPB ×2 (06:15→14:39)
[2017-11-28] MEDS: Gabapentin 600 MG TAB PO ×2 (08:24→13:14)
[2017-11-28] MEDS: Buprenorphine/Naloxone 8 mg/2 mg FILM 1 EACH SL (08:24)
[2017-11-28 10:08] LABS: Absolute Basophil Count 0.01 k/cumm (0.0-0.2); Absolute Eosinophil Count 0.18 k/cumm (0.0-0.7); Absolute Lymphocyte Count 1.16 k/cumm (1.2-3.4); Absolute Monocyte Count 0.29 k/cumm (0.11-0.7); Absolute Neutrophil Count 3.99 k/cumm (1.2-6.7); Basophils % 0.2; Eosinophils % 3.2; HCT 29.7 % (36.0-46.0); HGB 9.6 g/dL (12.0-15.5); Lymphocytes % 20.6; Mean Corp. HGB Concentration 32.3 g/dL (32.0-36.0); Mean Corpuscular Hemoglobin 28.8 pg (27.0-33.0); Mean Corpuscular Volume 89.2 fL (80-95); Mean Platelet Volume 9.1 fL (8.0-11.0); Monocytes % 5.2; Neutrophils % 70.8; Platelet Count 185 x1000/uL (130-400); RBC 3.33 m/cumm (4.00-5.20); RBC Distribution Width 13.1 % (11.7-14.6); White Blood Cell Count 5.63 k/cumm (4.4-10.8)
[2017-11-28 10:13] LABS: ALT 72 U/L (12-78); AST 24 U/L (15-37); Albumin 2.8 g/dL (3.4-5.0); Alkaline Phosphatase 95 U/L (46-116); Anion Gap 7.2 mmol/L (3-11); BUN 10 mg/dL (7-18); Bilirubin, Total 0.2 mg/dL (0.2-1.0); CO2 26.8 mmol/L (21.0-32.0); CREATININE 0.68 mg/dL (0.55-1.02); Calcium 8.3 mg/dL (8.5-10.1); Chloride 103 mmol/L (98-107); Glucose 161 mg/dL (70-100); Potassium 3.5 mmol/L (3.5-5.1); Sodium 137 mmol/L (136-145); Total Protein 6.5 g/dL (6.4-8.2)
[2017-11-28] MEDS: DULoxetine 30 MG CAP 60 MG PO (13:13)
--- NOTE | 2017-11-28 14:02 | PDOC.CMPRO ---
- If Service Date Differs Date of service: 11/28/17 Time of Service: 14:02 Care Management Progress Note S/O: Denisse is lying in bed when this physician underwriter visits with her this morning. She is pleasant and open to discussion. Denisse states that she has a hard time being hospitalized as she likes to be outside. Denisse also states that she was seeing a therapist in the past and feels as though she needs to reconnect with her at some point. Denisse had questions in regards to her HIPAA form, CM obtained current HIPAA form and reviewed with Denisse. Denisse wanted to update the HIPAA therefore CM assisted with this, scanned to access, and placed original on chart. Denisse talked about her daughter with this physician underwriter and how she is her motivation to maintain sobriety. Denisse also discussed how her blood cultures were positive and she is upset by this as she does not want to have to stay in the hospital for an extended period of time. A: 32 y/o female admitted 11/26/17 for Prepatellar brusitis of right knee. P: Anticipated Denisse will return home with no anticipated services once medically cleared. She will F/U with PCP and plan of care as prescribed. Denisse's SO Carlos to transport when ready.
--- NOTE | 2017-11-28 14:06 | CMPROGNOTE_ITS ---
- If Service Date Differs Date of service: 11/28/17 Time of Service: 14:02 Care Management Progress Note S/O: Denisse is lying in bed when this senior mortgage underwriter visits with her this morning. She is pleasant and open to discussion. Denisse states that she has a hard time being hospitalized as she likes to be outside. Denisse also states that she was seeing a therapist in the past and feels as though she needs to reconnect with her at some point. Denisse had questions in regards to her HIPAA form, CM obtained current HIPAA form and reviewed with Denisse. Denisse wanted to update the HIPAA therefore CM assisted with this, scanned to access, and placed original on chart. Denisse talked about her daughter with this senior mortgage underwriter and how she is her motivation to maintain sobriety. Denisse also discussed how her blood cultures were positive and she is upset by this as she does not want to have to stay in the hospital for an extended period of time. A: 32 y/o female admitted 11/26/17 for Prepatellar brusitis of right knee. P: Anticipated Denisse will return home with no anticipated services once medically cleared. She will F/U with PCP and plan of care as prescribed. Denisse' s SO Carlos to transport when ready.
--- NOTE | 2017-11-28 15:34 | PGE_ITS ---
Date of service: 11/28/17 Time of Service: 15:39 Assessment and Plan (1) Fever: Current visit: Yes Status: Acute Concern for septic arthritis with bacteremia, as current blood culture is growing Gram Positive Cocci - Obvious concern for staph bacteremia in patient with prior history of IVDA and endocarditis. Continue Vancomycin and Ceftriaxone, currently day #2. Continue to await blood and joint culture results. Consider DEBORAH, official ID consultation pending results of the above. (2) Opioid dependence: Current visit: Yes Status: Chronic Continue home dose of Buprenorphine. Avoid Opiates for pain control as much as possible. (3) DVT prophylaxis: Current visit: Yes Status: Acute Start SC Lovenox. Subjective Interval history since last seen: 32-year-old woman with a past medical history significant for IVDA, now reportedly in remission, with a prior sepsis syndrome , Osteomyelitis necessitating a right sided below the knee amputation, as well as endocarditis, presented to [facility] emergency department with a 2-day history of pain and swelling with redness over her right kneecap. Ms. Mcdermott wears a prosthesis over her right BKA and has a abrasion over the end of the stump without any reported drainage, but with noted swelling and erythema overlying the right knee. She also complained of fevers at home. The patient was initially found to be febrile but without a leukocytosis. She underwent a tap of the right knee in the ED, with evacuation of purulent material - showing many WBCs but without growth for 48 hours. There was some question as to whether the joint or the Prepatellar Bursa was actually drained, and the patient went to the OR with ortho with reported tap of the knee joint, culture results unavailable. Blood culture in one set is also showing growth of Gram Positive Cocci, with gram stain showing GPC in clusters. for which he says he genoveva off pus. Patient's fevers have resolved since hospitalization. Her echocardiogram showed no evidence of vegetation, but was a TTE. She remains on CTx and Vancomycin, now day #2. Also with reported pain at the site. No other events reported. Currently remains afebrile. Exam Narrative Exam Narrative: General: Patient appears comfortable, AAOX3, NAD Neck: Supple CV: Regular, nontachycardic, S1S2, No rubs, murmurs, or gallops. Pulmonary: Clear to auscultation bilaterally, no crackles, wheezing, or rhonchi Abdomen: + Bowel Sounds, soft, nontender, nondistended Vascular: No left lower extremity edema Musculoskeletal: Right below the knee amputation noted. Knee joint with swelling and mild erythema. Neurologic: CN II-XII grossly intact. No focal deficits. Psych: Normal mood and affect. Objective Objective Clinical Data: Abnormal lab results 11/28/17 11/28/17 Range/Units 09:45 09:45 RBC 3.33 L (4.00-5.20) m/cumm Hgb 9.6 L D (12.0-15.5) g/dL Hct 29.7 L D (36.0-46.0) % Absolute Lymphocytes 1.16 L (1.2-3.4) k/cumm Glucose 161 H (70-100) mg/dL Calcium 8.3 L (8.5-10.1) mg/dL Albumin 2.8 L (3.4-5.0) g/dL Vital Signs Temperature 36.6 C 11/28/17 11:40 Temperature Source Tympanic 11/28/17 07:32 Pulse 111 H 11/28/17 11:40 Pulse Rhythm Regular 11/28/17 10:46 Pulse 70 11/27/17 06:16 Respiratory Rate 20 11/28/17 11:40 Respiratory Effort Non-Labored 11/28/17 10:46 Respiratory Depth Normal 11/28/17 10:46 Respiratory Pattern Normal 11/28/17 10:46 Blood Pressure 130/85 11/28/17 11:40 Blood Pressure Mean 80 11/27/17 00:46 Blood Pressure Position Supine 11/26/17 19:33 Pulse Oximetry 99 11/28/17 11:40 Respiratory End-tidal CO2 32 11/27/17 12:30 Oxygen Delivery Method Room Air 11/28/17 11:40 Oxygen Flow Rate 0 11/28/17 11:40 Pain Level 0 11/28/17 11:40 Comment 11/26/17 23:45 Intake & Output 11/27/17 11/28/17 11/28/17 23:59 11:59 23:59 Intake Total 700 / 700 980 / 980 Output Total 450 / 450 Balance 700 / 700 530 / 530 Intake: IV 700 / 700 250 / 250 Oral 730 / 730 Output: Urine 450 / 450 Other: Urine Color Yellow Urine Appearance Clear Urine Odor Normal Emesis Description None Voiding Methods Toilet Laboratory Results WBC 5.63 k/cumm (4.4-10.8) 11/28/17 09:45 RBC 3.33 m/cumm (4.00-5.20) L 11/28/17 09:45 Hgb 9.6 g/dL (12.0-15.5) L D 11/28/17 09:45 Hct 29.7 % (36.0-46.0) L D 11/28/17 09:45 MCV 89.2 fL (80-95) 11/28/17 09:45 MCH 28.8 pg (27.0-33.0) 11/28/17 09:45 MCHC 32.3 g/dL (32.0-36.0) 11/28/17 09:45 RDW 13.1 % (11.7-14.6) 11/28/17 09:45 Plt Count 185 x1000/uL (130-400) 11/28/17 09:45 MPV 9.1 fL (8.0-11.0) 11/28/17 09:45 Immature Gran % 0.0 11/28/17 09:45 Neutrophils % 70.8 11/28/17 09:45 Lymphocytes % 20.6 11/28/17 09:45 Monocytes % 5.2 11/28/17 09:45 Eosinophils % 3.2 11/28/17 09:45 Basophils % 0.2 11/28/17 09:45 Absolute Neutrophils 3.99 k/cumm (1.2-6.7) 11/28/17 09:45 Absolute Lymphocytes 1.16 k/cumm (1.2-3.4) L 11/28/17 09:45 Absolute Monocytes 0.29 k/cumm (0.11-0.7) 11/28/17 09:45 Absolute Eosinophils 0.18 k/cumm (0.0-0.7) 11/28/17 09:45 Absolute Basophils 0.01 k/cumm (0.0-0.2) 11/28/17 09:45 Sodium 137 mmol/L (136-145) 11/28/17 09:45 Potassium 3.5 mmol/L (3.5-5.1) 11/28/17 09:45 Chloride 103 mmol/L (98-107) 11/28/17 09:45 Carbon Dioxide 26.8 mmol/L (21.0-32.0) 11/28/17 09:45 Anion Gap 7.2 mmol/L (3-11) 11/28/17 09:45 BUN 10 mg/dL (7-18) 11/28/17 09:45 Creatinine 0.68 mg/dL (0.55-1.02) 11/28/17 09:45 Estimated GFR/1.73 m2 >= 60.00 (mL/min/1.73m2) 11/28/17 09:45 Glucose 161 mg/dL (70-100) H 11/28/17 09:45 Lactate 1.6 mmol/L (0.6-1.4) H 11/26/17 15:00 Calcium 8.3 mg/dL (8.5-10.1) L 11/28/17 09:45 Magnesium 2.1 mg/dL (1.8-2.4) 11/26/17 15:00 Total Bilirubin 0.2 mg/dL (0.2-1.0) 11/28/17 09:45 AST 24 U/L (15-37) 11/28/17 09:45 ALT 72 U/L (12-78) 11/28/17 09:45 Alkaline Phosphatase 95 U/L (46-116) 11/28/17 09:45 Total Protein 6.5 g/dL (6.4-8.2) 11/28/17 09:45 Albumin 2.8 g/dL (3.4-5.0) L 11/28/17 09:45 Urine HCG, Qual Negative 11/27/17 07:58 Fluid Source R knee 11/26/17 15:06 Fluid Color Red 11/26/17 15:06 Fluid Appearance Cloudy 11/26/17 15:06 Fluid WBC 6010 /MM3 (0-0) H 11/26/17 15:06 Fluid Mononuclear Cell 14 % (0-0) H 11/26/17 15:06 Fl Polymorphonucl Cell 86 % (0-0) H 11/26/17 15:06 Fluid Crystals See comment 11/26/17 15:06 Fluid Crystal Source R knee 11/26/17 15:06 Fl Crystal Path Review See comment 11/26/17 15:06 Urine Opiates Screen Negative (Negative) 11/27/17 07:58 Urine Methadone Screen Negative (Negative) 11/27/17 07:58 Ur Barbiturates Screen Negative (Negative) 11/27/17 07:58 Ur Tricyclics Screen Negative (Negative) 11/27/17 07:58 Ur Amphetamines Screen Negative (Negative) 11/27/17 07:58 U Benzodiazepines Scrn Negative (Negative) 11/27/17 07:58 Urine Cocaine Screen Negative (Negative) 11/27/17 07:58 Ur THC Screen Negative (Negative) 11/27/17 07:58 Path Cons Comment 11/26/17 15:06
--- NOTE | 2017-11-28 16:36 | NUR.NOTE ---
Nursing Note: This RN has attempted x 3 to see this patient. The first time this RN was in the room she was called away. There was a wheelchair blocking the door so this RN had trouble entering the room all 3 times. The second time this RN was told she could not enter. The patient stated she was busy on the phone with family and could not make time for this RN. The 3rd time the patient allowed this nurse into the room but then refused all care, stating again that she was busy on the phone. This RN did not that the patient's Vancomycin was still running that should have ended 30 minutes earlier.
[2017-11-28] MEDS: Enoxaparin 40 MG/0.4 ML SYR SC (17:44)
[2017-11-28] MEDS: Acetaminophen 500 MG TAB 1000 MG PO (17:44)
[2017-11-28] MEDS: Gabapentin 600 MG TAB 1200 MG PO (21:30)
[2017-11-28] MEDS: Normal Saline 500 ML IVPB (21:34)
[2017-11-28] MEDS: VANCOMYCIN 1,000 MG in Normal Saline 250 ML 166.67 MG IVPB (21:35)
[2017-11-29 00:39] VITALS: BP 111/76; PULSE 89; RESP 20; TEMP 36.8; O2SAT 96
[2017-11-29] MEDS: Normal Saline Flush 10 ML SYR IVP ×5 (02:32→20:41)
[2017-11-29] MEDS: Ketorolac 30 MG/ML VIAL IVP ×2 (02:33→08:16)
[2017-11-29] MEDS: Methylphenidate 10 MG TAB 20 MG PO ×3 (06:46→14:26)
[2017-11-29] MEDS: Acetaminophen 500 MG TAB 1000 MG PO (06:46)
[2017-11-29] MEDS: VANCOMYCIN 1,000 MG in Normal Saline 250 ML 167 MG IVPB (07:05)
[2017-11-29 07:21] LABS: Absolute Basophil Count 0.01 k/cumm (0.0-0.2); Absolute Eosinophil Count 0.28 k/cumm (0.0-0.7); Absolute Lymphocyte Count 1.13 k/cumm (1.2-3.4); Basophils % 0.2; Eosinophils % 6.1; HCT 30.3 % (36.0-46.0); HGB 9.7 g/dL (12.0-15.5); Lymphocytes % 24.5; Mean Corpuscular Hemoglobin 28.4 pg (27.0-33.0); Mean Corpuscular Volume 88.6 fL (80-95); Mean Platelet Volume 8.8 fL (8.0-11.0); Monocytes % 6.5; Neutrophils % 62.7; Platelet Count 186 x1000/uL (130-400); RBC 3.42 m/cumm (4.00-5.20); RBC Distribution Width 13.1 % (11.7-14.6); White Blood Cell Count 4.62 k/cumm (4.4-10.8)
[2017-11-29 07:23] VITALS: BP 148/90; PULSE 104; RESP 18; TEMP 37.1; O2SAT 96
[2017-11-29 07:32] LABS: Anion Gap 7.5 mmol/L (3-11); BUN 11 mg/dL (7-18); CO2 28.5 mmol/L (21.0-32.0); CREATININE 0.73 mg/dL (0.55-1.02); Calcium 8.4 mg/dL (8.5-10.1); Chloride 104 mmol/L (98-107); Glucose 97 mg/dL (70-100); Potassium 4.6 mmol/L (3.5-5.1); Sodium 140 mmol/L (136-145)
[2017-11-29 07:35] VITALS: BP 144/100; PULSE 92; O2SAT 98
[2017-11-29 08:04] LABS: ESR 59 MM/HR (0-20)
[2017-11-29] MEDS: Buprenorphine/Naloxone 8 mg/2 mg FILM 1 EACH SL (08:16)
[2017-11-29] MEDS: DULoxetine 30 MG CAP 60 MG PO (08:16)
[2017-11-29] MEDS: Gabapentin 600 MG TAB 1200 MG PO ×2 (08:16→20:41)
[2017-11-29] MEDS: ACETAMINOPHEN 1,000 MG/100 ML BTL 400 MG IVPB ×2 (10:11→17:06)
--- NOTE | 2017-11-29 11:11 | CMPROGNOTE_ITS ---
- If Service Date Differs Date of service: 11/29/17 Time of Service: 11:09 Care Management Progress Note S/O: Denisse is sitting up in her chair when this senior technical writer visits this morning. She states that she is going stir crazy in her room and is hopeful that she will not need a long course of IV antibiotics. Denisse states that she is hopeful that she can quit smoking while she is here, she states that she is craving a cigarette and that by not smoking while in the hospital she feels as though she will be able to quit again. Denisse also states that she is in need of crutches at time of DC. She has requested a laptop, to assist with arranging this tomorrow. A: 32 y/o female admitted 11/26/17 for Prepatellar brusitis of right knee. P: Anticipated Denisse will return home with no anticipated services once medically cleared. She will F/U with PCP and plan of care as prescribed. Denisse' s SO Carlos to transport when ready.
[2017-11-29] MEDS: Gabapentin 600 MG TAB PO (12:25)
[2017-11-29 13:52] LABS: Vancomycin, Trough 12.9 ug/mL (10.0-20.0)
[2017-11-29] MEDS: VANCOMYCIN 1,000 MG in Normal Saline 250 ML 166.667 MG IVPB ×2 (14:15→20:50)
--- NOTE | 2017-11-29 15:54 | W.PM.PROGNOT ---
Assessment and Plan (1) Fever: Current visit: Yes Status: Acute Concern for septic arthritis with Staph bacteremia, as current blood culture is growing Gram Positive Cocci with knee aspirate showing staph aureus. Obvious concern for staph bacteremia in patient with prior history of IVDA and endocarditis. Continue Vancomycin and Ceftriaxone, currently day #3. Continue to await blood and joint culture results. If Blood Culture matches knee aspiration will discontinue CTx. Consider DEBORAH, official ID consultation pending results of the above. (2) Opioid dependence: Current visit: Yes Status: Chronic Continue home dose of Buprenorphine. Avoid Opiates for pain control as much as possible. Patient has displayed some occasional drug seeking behavior. (3) DVT prophylaxis: Current visit: Yes Status: Acute Continue SC Lovenox. Subjective Interval history since last seen: 32-year-old woman with a past medical history significant for IVDA, now reportedly in remission, with a prior sepsis syndrome, Osteomyelitis necessitating a right sided below the knee amputation, as well as endocarditis, presented to [facility] emergency department with a 2-day history of pain and swelling with redness over her right kneecap. Ms. Mcdermott wears a prosthesis over her right BKA and has a abrasion over the end of the stump without any reported drainage, but with noted swelling and erythema overlying the right knee. She also complained of fevers at home. The patient was initially found to be febrile but without a leukocytosis. She underwent a tap of the right knee in the ED, with evacuation of purulent material - showing many WBCs and now with Staphylococcus Aureus on culture. There was some question as to whether the joint or the Prepatellar Bursa was actually drained, and the patient went to the OR with ortho with reported tap of the knee joint, culture results unavailable. Blood culture in one set is also showing growth of Gram Positive Cocci, with gram stain showing GPC in clusters. Patient's fevers have resolved since hospitalization. Her echocardiogram showed no evidence of vegetation, but was a TTE. She remains on CTx and Vancomycin, now day #3. Also with reported pain and erythema at the site that is improved. No other events reported. Currently remains afebrile. Exam Narrative Exam Narrative: General: Patient appears comfortable, AAOX3, NAD Neck: Supple CV: Regular, nontachycardic, S1S2, No rubs, murmurs, or gallops. Pulmonary: Clear to auscultation bilaterally, no crackles, wheezing, or rhonchi Abdomen: + Bowel Sounds, soft, nontender, nondistended Vascular: No left lower extremity edema Musculoskeletal: Right below the knee amputation noted. Knee joint with swelling and mild erythema. Neurologic: CN II-XII grossly intact. No focal deficits. Psych: Normal mood and affect. Objective Objective Clinical Data: Abnormal lab results 11/29/17 11/29/17 Range/Units 07:05 07:05 RBC 3.42 L (4.00-5.20) m/cumm Hgb 9.7 L (12.0-15.5) g/dL Hct 30.3 L (36.0-46.0) % Absolute Lymphocytes 1.13 L (1.2-3.4) k/cumm ESR 59 H (0-20) MM/HR Calcium 8.4 L (8.5-10.1) mg/dL C-Reactive Protein 7.00 H (0.0-0.3) mg/dL Vital Signs Temperature 37.1 C 11/29/17 07:23 Temperature Source Tympanic 11/29/17 07:23 Pulse 92 H 11/29/17 07:35 Pulse Rhythm Regular 11/29/17 11:03 Pulse 70 11/27/17 06:16 Respiratory Rate 18 11/29/17 07:23 Respiratory Effort Non-Labored 11/29/17 11:03 Respiratory Depth Normal 11/29/17 11:03 Respiratory Pattern Normal 11/29/17 11:03 Blood Pressure 144/100 H 11/29/17 07:35 Blood Pressure Mean 80 11/27/17 00:46 Blood Pressure Position Supine 11/26/17 19:33 Pulse Oximetry 98 11/29/17 07:35 Respiratory End-tidal CO2 32 11/27/17 12:30 Oxygen Delivery Method Room Air 11/29/17 07:35 Oxygen Flow Rate 0 11/29/17 07:35 Pain Level 6 11/29/17 10:11 Comment 11/29/17 07:35 Intake & Output 11/28/17 11/29/17 11/29/17 23:59 11:59 23:59 Intake Total 1430.650 / 1430.650 830 / 830 450 / 450 Balance 1430.650 / 1430.650 830 / 830 450 / 450 Intake: IV 590.650 / 590.650 380 / 380 Oral 840 / 840 450 / 450 450 / 450 Other: Urine Odor Normal None Comment pt voiding in the bathroom independently VOID X 2 ONE DURING NOC AND AT 0650 Stool Size Small Stool Characteristics Formed Hard Voiding Methods Toilet Toilet Laboratory Results WBC 4.62 k/cumm (4.4-10.8) 11/29/17 07:05 RBC 3.42 m/cumm (4.00-5.20) L 11/29/17 07:05 Hgb 9.7 g/dL (12.0-15.5) L 11/29/17 07:05 Hct 30.3 % (36.0-46.0) L 11/29/17 07:05 MCV 88.6 fL (80-95) 11/29/17 07:05 MCH 28.4 pg (27.0-33.0) 11/29/17 07:05 MCHC 32.0 g/dL (32.0-36.0) 11/29/17 07:05 RDW 13.1 % (11.7-14.6) 11/29/17 07:05 Plt Count 186 x1000/uL (130-400) 11/29/17 07:05 MPV 8.8 fL (8.0-11.0) 11/29/17 07:05 Immature Gran % 0.0 11/29/17 07:05 Neutrophils % 62.7 11/29/17 07:05 Lymphocytes % 24.5 11/29/17 07:05 Monocytes % 6.5 11/29/17 07:05 Eosinophils % 6.1 11/29/17 07:05 Basophils % 0.2 11/29/17 07:05 Absolute Neutrophils 2.90 k/cumm (1.2-6.7) 11/29/17 07:05 Absolute Lymphocytes 1.13 k/cumm (1.2-3.4) L 11/29/17 07:05 Absolute Monocytes 0.30 k/cumm (0.11-0.7) 11/29/17 07:05 Absolute Eosinophils 0.28 k/cumm (0.0-0.7) 11/29/17 07:05 Absolute Basophils 0.01 k/cumm (0.0-0.2) 11/29/17 07:05 ESR 59 MM/HR (0-20) H 11/29/17 07:05 Sodium 140 mmol/L (136-145) 11/29/17 07:05 Potassium 4.6 mmol/L (3.5-5.1) D 11/29/17 07:05 Chloride 104 mmol/L (98-107) 11/29/17 07:05 Carbon Dioxide 28.5 mmol/L (21.0-32.0) 11/29/17 07:05 Anion Gap 7.5 mmol/L (3-11) 11/29/17 07:05 BUN 11 mg/dL (7-18) 11/29/17 07:05 Creatinine 0.73 mg/dL (0.55-1.02) 11/29/17 07:05 Estimated GFR/1.73 m2 >= 60.00 (mL/min/1.73m2) 11/29/17 07:05 Glucose 97 mg/dL (70-100) D 11/29/17 07:05 Lactate 1.6 mmol/L (0.6-1.4) H 11/26/17 15:00 Calcium 8.4 mg/dL (8.5-10.1) L 11/29/17 07:05 Magnesium 2.1 mg/dL (1.8-2.4) 11/26/17 15:00 Total Bilirubin 0.2 mg/dL (0.2-1.0) 11/28/17 09:45 AST 24 U/L (15-37) 11/28/17 09:45 ALT 72 U/L (12-78) 11/28/17 09:45 Alkaline Phosphatase 95 U/L (46-116) 11/28/17 09:45 C-Reactive Protein 7.00 mg/dL (0.0-0.3) H 11/29/17 07:05 Total Protein 6.5 g/dL (6.4-8.2) 11/28/17 09:45 Albumin 2.8 g/dL (3.4-5.0) L 11/28/17 09:45 Urine HCG, Qual Negative 11/27/17 07:58 Fluid Source R knee 11/26/17 15:06 Fluid Color Red 11/26/17 15:06 Fluid Appearance Cloudy 11/26/17 15:06 Fluid WBC 6010 /MM3 (0-0) H 11/26/17 15:06 Fluid Mononuclear Cell 14 % (0-0) H 11/26/17 15:06 Fl Polymorphonucl Cell 86 % (0-0) H 11/26/17 15:06 Fluid Crystals See comment 11/26/17 15:06 Fluid Crystal Source R knee 11/26/17 15:06 Fl Crystal Path Review See comment 11/26/17 15:06 Vancomycin Trough 12.9 ug/mL (10.0-20.0) 11/29/17 13:30 Urine Opiates Screen Negative (Negative) 11/27/17 07:58 Urine Methadone Screen Negative (Negative) 11/27/17 07:58 Ur Barbiturates Screen Negative (Negative) 11/27/17 07:58 Ur Tricyclics Screen Negative (Negative) 11/27/17 07:58 Ur Amphetamines Screen Negative (Negative) 11/27/17 07:58 U Benzodiazepines Scrn Negative (Negative) 11/27/17 07:58 Urine Cocaine Screen Negative (Negative) 11/27/17 07:58 Ur THC Screen Negative (Negative) 11/27/17 07:58 Path Cons Comment 11/26/17 15:06
[2017-11-29 16:11] VITALS: BP 151/92; PULSE 111; RESP 18; TEMP 37.1; O2SAT 96
[2017-11-29 17:03] VITALS: TEMP 38.3
[2017-11-29] MEDS: Enoxaparin 40 MG/0.4 ML SYR SC (17:21)
[2017-11-29] MEDS: busPIRone 5 MG TAB 10 MG PO (20:41)
[2017-11-29 22:20] VITALS: TEMP 38.4
[2017-11-30] VITALS (10 sets, daily range): BP systolic 122–128; BP diastolic 74–84; PULSE 64–100; RESP 16–22; TEMP 36.8–39.5; O2SAT 95–100
[2017-11-30] MEDS: Normal Saline 500 ML 400 ML IVPB (00:01)
[2017-11-30] MEDS: ACETAMINOPHEN 1,000 MG/100 ML BTL 400 MG IVPB ×4 (00:03→23:48)
[2017-11-30] MEDS: VANCOMYCIN 1,000 MG in Normal Saline 250 ML 167 MG IVPB ×2 (02:14→08:27)
[2017-11-30] MEDS: Methylphenidate 10 MG TAB 20 MG PO ×3 (06:20→14:03)
[2017-11-30] MEDS: DULoxetine 30 MG CAP 60 MG PO (08:26)
[2017-11-30] MEDS: busPIRone 5 MG TAB 10 MG PO ×3 (08:26→20:50)
[2017-11-30] MEDS: Gabapentin 600 MG TAB 1200 MG PO ×2 (08:26→20:50)
[2017-11-30] MEDS: Buprenorphine/Naloxone 8 mg/2 mg FILM 2 EACH SL (08:26)
[2017-11-30 09:44] LABS: Vancomycin, Trough 20.1 ug/mL (10.0-20.0)
--- NOTE | 2017-11-30 11:10 | PGE_ITS ---
Date of service: 11/30/17 Time of Service: 10:55 Subjective Interval history since last seen: This patient is still here receiving IV antibiotics. I determined on 11/27/2017 that her initial aspiration in the emergency room was of the prepatellar bursa and not of her knee joint. I performed an aspiration of her right knee on 11/27/2017 that did not yield any fluid. I then aspirated her prepatellar bursa which showed serosanguineous fluid. From the scab from her previous aspiration attempt, I determined that the prepatellar bursa had been aspirated in the emergency room and not her knee joint. I did not send fluid from my aspiration for culture. This is because the prepatellar bursa had already been aspirated and she has been on IV antibiotics since then. Apparently a confusion has resulted because the prepatellar bursa aspirate is growing staph aureus but the blood culture is growing staph species not aureus. The micro lab noted that the staph growing from the blood culture was probably a contaminant. I agree. Objective Objective Clinical Data: Abnormal lab results 11/30/17 Range/Units 09:02 Vancomycin Trough 20.1 H (10.0-20.0) ug/mL Vital Signs Temperature 37.4 C 11/30/17 07:35 Temperature Source Tympanic 11/30/17 07:35 Pulse 64 11/30/17 07:35 Pulse Rhythm Regular 11/30/17 07:35 Pulse 70 11/27/17 06:16 Respiratory Rate 22 11/30/17 07:35 Respiratory Effort Non-Labored 11/30/17 07:35 Respiratory Depth Normal 11/30/17 07:35 Respiratory Pattern Normal 11/30/17 07:35 Blood Pressure 126/74 11/30/17 07:35 Blood Pressure Mean 80 11/27/17 00:46 Blood Pressure Position Supine 11/26/17 19:33 Pulse Oximetry 100 11/30/17 07:35 Respiratory End-tidal CO2 32 11/27/17 12:30 Oxygen Delivery Method Room Air 11/30/17 07:35 Oxygen Flow Rate 0 11/30/17 07:35 Pain Level 3 11/30/17 07:30 Comment 11/30/17 00:15 Intake & Output 11/29/17 11/29/17 11/30/17 11:59 23:59 11:59 Intake Total 830 / 830 1225.667 / 1225.667 370 / 370 Balance 830 / 830 1225.667 / 1225.667 370 / 370 Weight 58.1 kg Intake: IV 380 / 380 775.667 / 775.667 370 / 370 Oral 450 / 450 450 / 450 Other: Urine Odor None Comment VOID X 2 ONE DURING NOC AND AT 0650 pt voiding independently and flushing, urine not viewed pt voiding independently and flushing, urine not viewed Stool Size Small Stool Characteristics Formed Hard Voiding Methods Toilet Toilet Toilet Laboratory Results WBC 4.62 k/cumm (4.4-10.8) 11/29/17 07:05 RBC 3.42 m/cumm (4.00-5.20) L 11/29/17 07:05 Hgb 9.7 g/dL (12.0-15.5) L 11/29/17 07:05 Hct 30.3 % (36.0-46.0) L 11/29/17 07:05 MCV 88.6 fL (80-95) 11/29/17 07:05 MCH 28.4 pg (27.0-33.0) 11/29/17 07:05 MCHC 32.0 g/dL (32.0-36.0) 11/29/17 07:05 RDW 13.1 % (11.7-14.6) 11/29/17 07:05 Plt Count 186 x1000/uL (130-400) 11/29/17 07:05 MPV 8.8 fL (8.0-11.0) 11/29/17 07:05 Immature Gran % 0.0 11/29/17 07:05 Neutrophils % 62.7 11/29/17 07:05 Lymphocytes % 24.5 11/29/17 07:05 Monocytes % 6.5 11/29/17 07:05 Eosinophils % 6.1 11/29/17 07:05 Basophils % 0.2 11/29/17 07:05 Absolute Neutrophils 2.90 k/cumm (1.2-6.7) 11/29/17 07:05 Absolute Lymphocytes 1.13 k/cumm (1.2-3.4) L 11/29/17 07:05 Absolute Monocytes 0.30 k/cumm (0.11-0.7) 11/29/17 07:05 Absolute Eosinophils 0.28 k/cumm (0.0-0.7) 11/29/17 07:05 Absolute Basophils 0.01 k/cumm (0.0-0.2) 11/29/17 07:05 ESR 59 MM/HR (0-20) H 11/29/17 07:05 Sodium 140 mmol/L (136-145) 11/29/17 07:05 Potassium 4.6 mmol/L (3.5-5.1) D 11/29/17 07:05 Chloride 104 mmol/L (98-107) 11/29/17 07:05 Carbon Dioxide 28.5 mmol/L (21.0-32.0) 11/29/17 07:05 Anion Gap 7.5 mmol/L (3-11) 11/29/17 07:05 BUN 11 mg/dL (7-18) 11/29/17 07:05 Creatinine 0.73 mg/dL (0.55-1.02) 11/29/17 07:05 Estimated GFR/1.73 m2 >= 60.00 (mL/min/1.73m2) 11/29/17 07:05 Glucose 97 mg/dL (70-100) D 11/29/17 07:05 Lactate 1.6 mmol/L (0.6-1.4) H 11/26/17 15:00 Calcium 8.4 mg/dL (8.5-10.1) L 11/29/17 07:05 Magnesium 2.1 mg/dL (1.8-2.4) 11/26/17 15:00 Total Bilirubin 0.2 mg/dL (0.2-1.0) 11/28/17 09:45 AST 24 U/L (15-37) 11/28/17 09:45 ALT 72 U/L (12-78) 11/28/17 09:45 Alkaline Phosphatase 95 U/L (46-116) 11/28/17 09:45 C-Reactive Protein 7.00 mg/dL (0.0-0.3) H 11/29/17 07:05 Total Protein 6.5 g/dL (6.4-8.2) 11/28/17 09:45 Albumin 2.8 g/dL (3.4-5.0) L 11/28/17 09:45 Urine HCG, Qual Negative 11/27/17 07:58 Fluid Source R knee 11/26/17 15:06 Fluid Color Red 11/26/17 15:06 Fluid Appearance Cloudy 11/26/17 15:06 Fluid WBC 6010 /MM3 (0-0) H 11/26/17 15:06 Fluid Mononuclear Cell 14 % (0-0) H 11/26/17 15:06 Fl Polymorphonucl Cell 86 % (0-0) H 11/26/17 15:06 Fluid Crystals See comment 11/26/17 15:06 Fluid Crystal Source R knee 11/26/17 15:06 Fl Crystal Path Review See comment 11/26/17 15:06 Vancomycin Trough 20.1 ug/mL (10.0-20.0) H 11/30/17 09:02 Urine Opiates Screen Negative (Negative) 11/27/17 07:58 Urine Methadone Screen Negative (Negative) 11/27/17 07:58 Ur Barbiturates Screen Negative (Negative) 11/27/17 07:58 Ur Tricyclics Screen Negative (Negative) 11/27/17 07:58 Ur Amphetamines Screen Negative (Negative) 11/27/17 07:58 U Benzodiazepines Scrn Negative (Negative) 11/27/17 07:58 Urine Cocaine Screen Negative (Negative) 11/27/17 07:58 Ur THC Screen Negative (Negative) 11/27/17 07:58 Path Cons Comment 11/26/17 15:06 Objective Narrative Objective Narrative: The cultur he is labeled as synovial fluid. However, this is incorrect. The fluid obtained was from the prepatellar bursa not from her knee joint. This is growing staph aureus, sensitive to oxacillin. Blood culture is growing staph species not aureus. This is a different organism from what is growing from her prepatellar bursa fluid. I agree with the lab that this growth is probably a contaminant. Assessment: Right prepatellar bursa infection. She should be switched to p.o. and antibiotics and treated as an outpatient. She can follow-up with me in 7- 10 days.
[2017-11-30] MEDS: Gabapentin 600 MG TAB PO (11:59)
--- NOTE | 2017-11-30 13:01 | PDOC.CMPRO ---
- If Service Date Differs Date of service: 11/30/17 Time of Service: 13:01 Care Management Progress Note S/O: Denisse is sitting up in bed with boyfriend Carlos, at bedside, when CM visits twice this morning. She is engaged in conversation, makes good eye contact and is talkative. Denisse has asked for a laptop and CM provided her with one to use. Denisse had asked about getting crutches for use at hospital and home. CM inquired with PT and was informed that there was not a pair available. Denisse's PCP has apparently ordered a pair for her and they will be available to Denisse upon discharge. Denisse continues to receive IV antibiotics. A: 32 y/o female admitted 11/26/17 for Sepsis. P: Denisse will return home with no anticipated services once medically cleared per MD. She will follow up with PCP and plan of care as prescribed. Denisse's boyfriend, Carlos will transport via private vehicle.
[2017-11-30] MEDS: Bacitracin 1 PACKET (16:20)
--- NOTE | 2017-11-30 17:12 | W.PM.PROGNOT ---
Date of service: 11/30/17 Time of Service: 17:12 Assessment and Plan (1) Fever: Current visit: Yes Status: Acute Concern for septic arthritis with what was initially thought to be Staph bacteremia, however now appears to be a contaminant. Continue Vancomycin and Ceftriaxone, currently day #4. Consider DEBORAH, official ID consultation pending results of the above. (2) Opioid dependence: Current visit: Yes Status: Chronic Continue home dose of Buprenorphine. Avoid Opiates for pain control as much as possible. Patient has displayed some occasional drug seeking behavior. (3) DVT prophylaxis: Current visit: Yes Status: Acute Continue SC Lovenox. Subjective Patient reports: no new complaints Interval history since last seen: 32-year-old woman with past medical history significant for IV drug use currently in remission, prior sepsis syndrome secondary to osteomyelitis requiring right below the knee amputation, as well as endocarditis, currently being treated for cellulitis of the right stump due to wound from prosthesis. Apparently there is some confusion regarding Of the right knee, which eventually grew Staphylococcus aureus on culture, however was thought to be drawn from the prepatellar bursa. Blood cultures are now growing staph, not staph aureus, that is thought to be a contaminant. Denisse ran a fever last night, however has remained afebrile today. Echocardiogram showed no evidence of vegetation, however this was a transthoracic echo. Is currently on day #4 of IV vancomycin. Her only complaint today is pain at her IV insertion site. Exam Narrative Exam Narrative: General: 32 yo thin female. Well developed and well nourished. No acute distress. A/Ox3. Pleasant and cooperative, anxious and tearful. HEENT: Normocephalic, Atraumatic. Conjunctiva clear, sclera non-icteric. PERRL. EOMI. Moist mucous membranes, oropharynx clear. Neck supple, no JVD, thyromegaly or lymphadenopathy. Cardiovascular: Regular rate and rhythm, S1S2, no S3 or S4. No murmur, rub, gallop. Respiratory: Chest expansion symmetrical, respirations unlabored. Lungs clear to auscultation, no adventitious breath sounds. GI: Abdomen round, soft, non-tender to palpation. Normoactive bowel sounds in all 4 quadrants. No hepatosplenomegaly or prominent masses. : deferred Extremities: Lower extremities without deformity or edema Neurological: non-focal. CN 2-12 grossly intact. Psychiatric: pleasant and cooperative. Speech clear and articulate. Objective Objective Clinical Data: Abnormal lab results 11/30/17 Range/Units 09:02 Vancomycin Trough 20.1 H (10.0-20.0) ug/mL Vital Signs Temperature 39.5 C H 11/30/17 17:03 Temperature Source Tympanic 11/30/17 17:03 Pulse 98 H 11/30/17 17:03 Pulse Rhythm Regular 11/30/17 07:35 Pulse 70 11/27/17 06:16 Respiratory Rate 16 11/30/17 17:03 Respiratory Effort Non-Labored 11/30/17 07:35 Respiratory Depth Normal 11/30/17 07:35 Respiratory Pattern Normal 11/30/17 07:35 Blood Pressure 122/74 11/30/17 17:03 Blood Pressure Mean 80 11/27/17 00:46 Blood Pressure Position Supine 11/26/17 19:33 Pulse Oximetry 96 11/30/17 17:03 Respiratory End-tidal CO2 32 11/27/17 12:30 Oxygen Delivery Method Room Air 11/30/17 17:03 Oxygen Flow Rate 0 11/30/17 17:03 Pain Level 3 11/30/17 17:02 Comment 11/30/17 14:08 Intake & Output 11/29/17 11/30/17 11/30/17 23:59 11:59 23:59 Intake Total 1225.667 / 7797.376 2558 / 1170 1100 / 1100 Balance 1225.667 / 7141.176 3897 / 1170 1100 / 1100 Weight 58.1 kg Intake: IV 775.667 / 775.667 720 / 720 Oral 450 / 450 450 / 450 1100 / 1100 Other: Comment pt voiding independently and flushing, urine not viewed pt voiding independently and flushing, urine not viewed Voiding Methods Toilet Toilet Laboratory Results WBC 4.62 k/cumm (4.4-10.8) 11/29/17 07:05 RBC 3.42 m/cumm (4.00-5.20) L 11/29/17 07:05 Hgb 9.7 g/dL (12.0-15.5) L 11/29/17 07:05 Hct 30.3 % (36.0-46.0) L 11/29/17 07:05 MCV 88.6 fL (80-95) 11/29/17 07:05 MCH 28.4 pg (27.0-33.0) 11/29/17 07:05 MCHC 32.0 g/dL (32.0-36.0) 11/29/17 07:05 RDW 13.1 % (11.7-14.6) 11/29/17 07:05 Plt Count 186 x1000/uL (130-400) 11/29/17 07:05 MPV 8.8 fL (8.0-11.0) 11/29/17 07:05 Immature Gran % 0.0 11/29/17 07:05 Neutrophils % 62.7 11/29/17 07:05 Lymphocytes % 24.5 11/29/17 07:05 Monocytes % 6.5 11/29/17 07:05 Eosinophils % 6.1 11/29/17 07:05 Basophils % 0.2 11/29/17 07:05 Absolute Neutrophils 2.90 k/cumm (1.2-6.7) 11/29/17 07:05 Absolute Lymphocytes 1.13 k/cumm (1.2-3.4) L 11/29/17 07:05 Absolute Monocytes 0.30 k/cumm (0.11-0.7) 11/29/17 07:05 Absolute Eosinophils 0.28 k/cumm (0.0-0.7) 11/29/17 07:05 Absolute Basophils 0.01 k/cumm (0.0-0.2) 11/29/17 07:05 ESR 59 MM/HR (0-20) H 11/29/17 07:05 Sodium 140 mmol/L (136-145) 11/29/17 07:05 Potassium 4.6 mmol/L (3.5-5.1) D 11/29/17 07:05 Chloride 104 mmol/L (98-107) 11/29/17 07:05 Carbon Dioxide 28.5 mmol/L (21.0-32.0) 11/29/17 07:05 Anion Gap 7.5 mmol/L (3-11) 11/29/17 07:05 BUN 11 mg/dL (7-18) 11/29/17 07:05 Creatinine 0.73 mg/dL (0.55-1.02) 11/29/17 07:05 Estimated GFR/1.73 m2 >= 60.00 (mL/min/1.73m2) 11/29/17 07:05 Glucose 97 mg/dL (70-100) D 11/29/17 07:05 Lactate 1.6 mmol/L (0.6-1.4) H 11/26/17 15:00 Calcium 8.4 mg/dL (8.5-10.1) L 11/29/17 07:05 Magnesium 2.1 mg/dL (1.8-2.4) 11/26/17 15:00 Total Bilirubin 0.2 mg/dL (0.2-1.0) 11/28/17 09:45 AST 24 U/L (15-37) 11/28/17 09:45 ALT 72 U/L (12-78) 11/28/17 09:45 Alkaline Phosphatase 95 U/L (46-116) 11/28/17 09:45 C-Reactive Protein 7.00 mg/dL (0.0-0.3) H 11/29/17 07:05 Total Protein 6.5 g/dL (6.4-8.2) 11/28/17 09:45 Albumin 2.8 g/dL (3.4-5.0) L 11/28/17 09:45 Urine HCG, Qual Negative 11/27/17 07:58 Fluid Source R knee 11/26/17 15:06 Fluid Color Red 11/26/17 15:06 Fluid Appearance Cloudy 11/26/17 15:06 Fluid WBC 6010 /MM3 (0-0) H 11/26/17 15:06 Fluid Mononuclear Cell 14 % (0-0) H 11/26/17 15:06 Fl Polymorphonucl Cell 86 % (0-0) H 11/26/17 15:06 Fluid Crystals See comment 11/26/17 15:06 Fluid Crystal Source R knee 11/26/17 15:06 Fl Crystal Path Review See comment 11/26/17 15:06 Vancomycin Trough 19.0 ug/mL (10.0-20.0) 11/30/17 13:08 Urine Opiates Screen Negative (Negative) 11/27/17 07:58 Urine Methadone Screen Negative (Negative) 11/27/17 07:58 Ur Barbiturates Screen Negative (Negative) 11/27/17 07:58 Ur Tricyclics Screen Negative (Negative) 11/27/17 07:58 Ur Amphetamines Screen Negative (Negative) 11/27/17 07:58 U Benzodiazepines Scrn Negative (Negative) 11/27/17 07:58 Urine Cocaine Screen Negative (Negative) 11/27/17 07:58 Ur THC Screen Negative (Negative) 11/27/17 07:58 Path Cons Comment 11/26/17 15:06
[2017-11-30] MEDS: VANCOMYCIN 1,000 MG in Normal Saline 250 ML 166.667 MG IVPB (17:30)
[2017-11-30] MEDS: Enoxaparin 40 MG/0.4 ML SYR SC (17:33)
--- NOTE | 2017-11-30 19:19 | NUR.NOTE ---
Nursing Note: Around 1700, RN noted that the midline dressing to the right upper arm was falling off. RN reinforced and educated patient about safety. About an hour later, RN was called into the room where patient stated that she got hung up in the bathroom sink, almost fell, and midline came out. Drsg applied to site, no active bleeding noted.
[2017-11-30 21:06] LABS: *AMPHETAMINES SCREEN URINE Negative (Negative); *BARBITURATES SCREEN URINE Negative (Negative); *BENZODIAZEPINES SCREEN URINE Negative (Negative); Cannabinoids THC Negative (Negative); Cocaine Screen,Urine Negative (Negative); METHADONE URINE SCREEN Negative (Negative); OPIATES URINE SCREEN Negative (Negative)
[2017-11-30 21:09] LABS: Tricyclic Antidepressants Negative (Negative)
[2017-11-30] MEDS: Normal Saline 500 ML 100 ML IVPB (23:47)
[2017-11-30] MEDS: Normal Saline Flush 10 ML SYR IVP (23:48)
[2017-12-01] VITALS (7 sets, daily range): BP systolic 119–141; BP diastolic 61–97; PULSE 96–117; RESP 14–20; TEMP 36.5–38.5; O2SAT 97–99
[2017-12-01] MEDS: VANCOMYCIN 1,000 MG in Normal Saline 250 ML 166.667 MG IVPB (00:34)
[2017-12-01] MEDS: VANCOMYCIN 1,000 MG in Normal Saline 250 ML 167 MG IVPB ×3 (06:21→18:21)
[2017-12-01] MEDS: Normal Saline Flush 10 ML SYR IVP ×3 (06:21→18:21)
[2017-12-01] MEDS: Methylphenidate 10 MG TAB 20 MG PO ×3 (06:40→14:17)
[2017-12-01] MEDS: ACETAMINOPHEN 1,000 MG/100 ML BTL 400 MG IVPB ×3 (09:01→23:17)
[2017-12-01] MEDS: Gabapentin 600 MG TAB 1200 MG PO ×2 (10:46→21:11)
[2017-12-01] MEDS: Buprenorphine/Naloxone 8 mg/2 mg FILM 2 EACH SL (10:46)
[2017-12-01] MEDS: DULoxetine 30 MG CAP 60 MG PO (10:47)
[2017-12-01 11:35] LABS: Vancomycin, Trough 18.9 ug/mL (10.0-20.0)
--- NOTE | 2017-12-01 13:57 | PDOC.CMPRO ---
- If Service Date Differs Date of service: 12/01/17 Time of Service: 13:57 Care Management Progress Note S/O: Patient presented at interdisciplinary rounds. Denisse is sitting up in bed when CM visits this morning. She reports that she is not having a good morning and has been angry and arguing with her nurse. Denisse reports that she ate peanut butter, crackers and cereal at 0430 (she was supposed to remain NPO prior to a procedure). CM informed TERESA Mccauley. CM continued to make phone calls to DSU and SPD regarding loaner crutches for Denisse. Following calls, Denisse realized that her crutches (ordered through her PCP) were waiting for her at [facility] and reported that her boyfriend, Carlos, could pick them up and bring them to her. Denisse continues to receive IV antibiotics. A: 32 y/o female admitted 11/26/17 for Sepsis. P: Denisse will return home with no anticipated services once medically cleared per MD. She will follow up with PCP and plan of care as prescribed. Denisse's boyfriend, Carlos will transport via private vehicle.
--- NOTE | 2017-12-01 14:08 | CMPROGNOTE_ITS ---
- If Service Date Differs Date of service: 12/01/17 Time of Service: 13:57 Care Management Progress Note S/O: Patient presented at interdisciplinary rounds. Denisse is sitting up in bed when CM visits this morning. She reports that she is not having a good morning and has been angry and arguing with her nurse. Denisse reports that she ate peanut butter, crackers and cereal at 0430 (she was supposed to remain NPO prior to a procedure). CM informed TERESA Mccauley. CM continued to make phone calls to DSU and SPD regarding loaner crutches for Denisse. Following calls, Denisse realized that her crutches (ordered through her PCP) were waiting for her at [email or web address] and reported that her boyfriend, Carlos, could pick them up and bring them to her. Denisse continues to receive IV antibiotics. A: 32 y/o female admitted 11/26/17 for Sepsis. P: Denisse will return home with no anticipated services once medically cleared per MD. She will follow up with PCP and plan of care as prescribed. Denisse's boyfriend, Carlos will transport via private vehicle.
[2017-12-01] MEDS: Gabapentin 600 MG TAB PO (14:17)
--- NOTE | 2017-12-01 15:14 | NUR.NOTE ---
Nursing Note: Pt reports to sandra that she ate at 0430 this morning. She was ordered to be NPO for DEBORAH. Coordinator Shayla Zhu notified.
[2017-12-01] MEDS: Enoxaparin 40 MG/0.4 ML SYR SC (15:57)
--- NOTE | 2017-12-01 17:29 | PGE_ITS ---
Date of service: 12/01/17 Time of Service: 17:28 Assessment and Plan (1) Fever: Current visit: No Status: Acute Continues to spike fevers in the setting of antibiotic therapy with IV Vancomycin. This was previously thought to be related to septic arthritis, she went for a washout of that knee, without culture results available. She has been followed by [place], Dr. Flores does not feel this is related to septic joint as her initial cultures were actually from her prepatellar bursa. She has a history of endocarditis. She had a TTE, with no noted vegetation of her valves. She will go on to have a DEBORAH tomorrow. She did have one set of blood cultures grow Micrococcus Luteus, which was reported as a probably contaminant. Blood cultures were repeated with her fever last night, results are currently pending. Plan to have DEBORAH tomorrow and continue to monitor blood culture results. Continue IV vancomycin. She will be NPO after midnight. (2) Opioid dependence: Current visit: No Status: Chronic Continue home dose of Buprenorphine. Avoid Opiates for pain control as much as possible. Patient has displayed some occasional drug seeking behavior. (3) DVT prophylaxis: Current visit: No Status: Acute Continue subcutaneous lovenox. (4) Discharge planning issues: Current visit: Yes Status: Acute She is a full code. This case was discussed with Dr. Villanueva who is in agreement. Subjective Interval history since last seen: 32-year-old woman with a past medical history significant for IVDA, now reportedly in remission, with a prior sepsis syndrome , Osteomyelitis necessitating a right sided below the knee amputation, as well as endocarditis, presented to [facility] emergency department with a 2-day history of pain and swelling with redness over her right kneecap. She wears a prosthesis over her right BKA and has a abrasion over the end of the stump without any reported drainage, but with noted swelling and erythema overlying the right knee. She also complained of fevers at home. The patient was initially found to be febrile but without a leukocytosis. She underwent a tap of the right knee in the ED, which actually from her prepatellar bursa, there was note of evacuation of purulent material, the culture grew Staph Aureus. She went on to go to the OR with Dr. Flores, Orthopedics, with reported tap of the knee joint, culture results unavailable. Blood culture in one set is also showing growth of micrococcus luteus, reportedly a probable contaminant. She continues to spike fevers, as high as 39.5 last night. Blood cultures were drawn at that time and are currently pending. She continues on IV Vanco, day # 5. She really has no complaints today, except that she is bored here. She mentioned that when she was at [facility] last year, they discussed the possibility of a valve replacement. We have requested records from [facility]. She is scheduled for a DEBORAH tomorrow. Exam Const General: cooperative, comfortable and no acute distress (Thin female.) Orientation: alert, awake and oriented x3 HENMT Head: normocephalic and atraumatic Mouth: moist mucous membranes Neck Neck: supple Resp Effort & Inspection: normal respiratory effort Auscultation: clear to auscultation bilaterally, no rales, no rhonchi and no wheezes Cardio Rate: regular rate and tachycardic Heart Sounds: no murmurs GI Palpation: soft, no masses and nontender Auscultation: normal bowel sounds Skin Wounds: amputation site (Wound noted on stump RLE, no drainage, no erythema. Mild edema above amputation site. Surgical incision well healed otherwise.) Extrem General: no clubbing, cyanosis or edema and amputation noted Below the knee: right Objective Objective Clinical Data: Vital Signs Temperature 37.0 C 12/01/17 16:00 Temperature Source Tympanic 12/01/17 16:00 Pulse 109 H 12/01/17 16:00 Pulse Rhythm Regular 12/01/17 08:00 Pulse 70 11/27/17 06:16 Respiratory Rate 20 12/01/17 16:00 Respiratory Effort Non-Labored 12/01/17 08:00 Respiratory Depth Normal 12/01/17 08:00 Respiratory Pattern Normal 12/01/17 08:00 Blood Pressure 141/97 H 12/01/17 16:00 Blood Pressure Mean 80 11/27/17 00:46 Blood Pressure Position Supine 11/26/17 19:33 Pulse Oximetry 97 12/01/17 16:00 Respiratory End-tidal CO2 32 11/27/17 12:30 Oxygen Delivery Method Room Air 12/01/17 16:00 Oxygen Flow Rate 0 12/01/17 16:00 Pain Level 3 11/30/17 17:02 Comment 11/30/17 20:44 Intake & Output 11/30/17 12/01/17 12/01/17 23:59 11:59 23:59 Intake Total 1550 / 1550 738.333 / 738.333 360 / 360 Balance 1550 / 1550 738.333 / 738.333 360 / 360 Weight 57.5 kg Intake: IV 738.333 / 738.333 Oral 1550 / 1550 360 / 360 Other: Urine Color Yellow Urine Appearance Clear Urine Odor None Comment urine specimen given voi x 2 voiding w/o difficulty in toilet. Voiding Methods Toilet Toilet Laboratory Results WBC 4.62 k/cumm (4.4-10.8) 11/29/17 07:05 RBC 3.42 m/cumm (4.00-5.20) L 11/29/17 07:05 Hgb 9.7 g/dL (12.0-15.5) L 11/29/17 07:05 Hct 30.3 % (36.0-46.0) L 11/29/17 07:05 MCV 88.6 fL (80-95) 11/29/17 07:05 MCH 28.4 pg (27.0-33.0) 11/29/17 07:05 MCHC 32.0 g/dL (32.0-36.0) 11/29/17 07:05 RDW 13.1 % (11.7-14.6) 11/29/17 07:05 Plt Count 186 x1000/uL (130-400) 11/29/17 07:05 MPV 8.8 fL (8.0-11.0) 11/29/17 07:05 Immature Gran % 0.0 11/29/17 07:05 Neutrophils % 62.7 11/29/17 07:05 Lymphocytes % 24.5 11/29/17 07:05 Monocytes % 6.5 11/29/17 07:05 Eosinophils % 6.1 11/29/17 07:05 Basophils % 0.2 11/29/17 07:05 Absolute Neutrophils 2.90 k/cumm (1.2-6.7) 11/29/17 07:05 Absolute Lymphocytes 1.13 k/cumm (1.2-3.4) L 11/29/17 07:05 Absolute Monocytes 0.30 k/cumm (0.11-0.7) 11/29/17 07:05 Absolute Eosinophils 0.28 k/cumm (0.0-0.7) 11/29/17 07:05 Absolute Basophils 0.01 k/cumm (0.0-0.2) 11/29/17 07:05 ESR 59 MM/HR (0-20) H 11/29/17 07:05 Sodium 140 mmol/L (136-145) 11/29/17 07:05 Potassium 4.6 mmol/L (3.5-5.1) D 11/29/17 07:05 Chloride 104 mmol/L (98-107) 11/29/17 07:05 Carbon Dioxide 28.5 mmol/L (21.0-32.0) 11/29/17 07:05 Anion Gap 7.5 mmol/L (3-11) 11/29/17 07:05 BUN 11 mg/dL (7-18) 11/29/17 07:05 Creatinine 0.73 mg/dL (0.55-1.02) 11/29/17 07:05 Estimated GFR/1.73 m2 >= 60.00 (mL/min/1.73m2) 11/29/17 07:05 Glucose 97 mg/dL (70-100) D 11/29/17 07:05 Lactate 1.6 mmol/L (0.6-1.4) H 11/26/17 15:00 Calcium 8.4 mg/dL (8.5-10.1) L 11/29/17 07:05 Magnesium 2.1 mg/dL (1.8-2.4) 11/26/17 15:00 Total Bilirubin 0.2 mg/dL (0.2-1.0) 11/28/17 09:45 AST 24 U/L (15-37) 11/28/17 09:45 ALT 72 U/L (12-78) 11/28/17 09:45 Alkaline Phosphatase 95 U/L (46-116) 11/28/17 09:45 C-Reactive Protein 7.00 mg/dL (0.0-0.3) H 11/29/17 07:05 Total Protein 6.5 g/dL (6.4-8.2) 11/28/17 09:45 Albumin 2.8 g/dL (3.4-5.0) L 11/28/17 09:45 Urine HCG, Qual Negative 11/27/17 07:58 Fluid Source R knee 11/26/17 15:06 Fluid Color Red 11/26/17 15:06 Fluid Appearance Cloudy 11/26/17 15:06 Fluid WBC 6010 /MM3 (0-0) H 11/26/17 15:06 Fluid Mononuclear Cell 14 % (0-0) H 11/26/17 15:06 Fl Polymorphonucl Cell 86 % (0-0) H 11/26/17 15:06 Fluid Crystals See comment 11/26/17 15:06 Fluid Crystal Source R knee 11/26/17 15:06 Fl Crystal Path Review See comment 11/26/17 15:06 Vancomycin Trough 18.9 ug/mL (10.0-20.0) 12/01/17 10:57 Urine Opiates Screen Negative (Negative) 11/30/17 18:22 Urine Methadone Screen Negative (Negative) 11/30/17 18:22 Ur Barbiturates Screen Negative (Negative) 11/30/17 18:22 Ur Tricyclics Screen Negative (Negative) 11/30/17 18:22 Ur Amphetamines Screen Negative (Negative) 11/30/17 18:22 U Benzodiazepines Scrn Negative (Negative) 11/30/17 18:22 Urine Cocaine Screen Negative (Negative) 11/30/17 18:22 Ur THC Screen Negative (Negative) 11/30/17 18:22 Path Cons Comment 11/26/17 15:06
[2017-12-02] VITALS (8 sets, daily range): BP systolic 128–133; BP diastolic 70–92; PULSE 114–117; RESP 18–20; TEMP 37.1–39.7; O2SAT 97–99
[2017-12-02] MEDS: VANCOMYCIN 1,000 MG in Normal Saline 250 ML 167 MG IVPB ×2 (00:29→06:47)
[2017-12-02] MEDS: Methylphenidate 10 MG TAB 20 MG PO ×3 (06:46→14:26)
--- NOTE | 2017-12-02 09:20 | MERGE_ITS ---
*[facility]* * Cardiology* [address] [place] [address] Date of study: 12/02/2017 Transesophageal Echocardiography 2D, spectral Doppler, and color Doppler *STUDY CONCLUSIONS* Impressions: Possible small vegetations associated with the aortic and pulmonic valves. Summary: 1. Left ventricle: The cavity size was normal. Wall thickness was normal. Systolic function was normal. The estimated ejection fraction was 55-60%. Wall motion was normal; there were no regional wall motion abnormalities. 2. Aortic valve: There was a possible, small, 1.0cm (L) x 0.2cm (W), strand-like, mobilemass on the aortic aspect of the right coronary cusp; the appearance is consistent with vegetation. 3. Mitral valve: Mild thickening. Mild systolic bowing without prolapse, involving the anterior leaflet. There was mild regurgitation. 4. Left atrium: No evidence of thrombus in the atrial cavity or appendage. The appendage was of normal size. Emptying velocity was mildly reduced. 5. Right ventricle: The cavity size was normal. Wall thickness was normal. Systolic function was normal. 6. Pulmonic valve: There was a possible, small, 0.9cm (L) x 0.3cm (W), strand-like, mobilemass on the pulmonic aspect of the right cusp; the appearance is consistent with vegetation. *PATIENT PRESENTATION* Height: 172.7cm ((68in) ) S/D Pressure: Weight: 57.2kg ((125.7lb) ) BSA: 1.65m^2 Test start time: 09:58 AM. Test stop time: 10:28 AM. PERFORMING Unknown PERFORMING [facility] ORDERING Robbin Curtis REFERRING Robbin Curtis RAZOR GRINDER Mary Felix *PROCEDURE DATA* Procedure information: This study was interpreted by [facility]. Pertinent images and digital data are archived for permanent storage and are available for subsequent review. Study status: Routine. Diagnostic transesophageal echocardiography. 2D, spectral Doppler, and color Doppler. Consent: The risks, benefits, and alternatives to the procedure were explained to the patient and consent was verbally obtained. Barriers to education: No barriers to education identified. Initial setup. The patient was brought to the laboratory in the fasting state. Surface ECG leads, blood pressure measurements, and pulse oximetric signals were monitored. Sedation. General anesthesia was administered by Anesthesiology. A Transesophageal echocardiogram was performed. Topical anesthesia was obtained using viscous lidocaine. An adult multiplane transesophageal probe was inserted by Ermelinda Balderrama MDwithout difficulty. Images were obtained using an [employer] SC 2000 cardiac ultrasound machine. Image quality was adequate. The transesophageal probe was removed. Study completion: The patient tolerated the procedure well. There was no blood loss or specimens removed during the procedure. Final verification was completed with patient and staff. Ermelinda Balderrama MD There were no complications. History: PMH: Staph bacteremia. *CARDIAC ANATOMY* Left ventricle: The cavity size was normal. Wall thickness was normal. Systolic function was normal. The estimated ejection fraction was 55-60%. Wall motion was normal; there were no regional wall motion abnormalities. Aortic valve: Structurally normal valve. Trileaflet; normal thickness leaflets. Cusp separation was normal. Mobility was not restricted. There was a possible, small, 1.0cm (L) x 0.2cm (W), strand-like, mobilemass on the aortic aspect of the right coronary cusp; the appearance is consistent with vegetation. Doppler: Transvalvular velocity was within the normal range. There was no stenosis. There was no regurgitation. Aorta: There was no atheroma. There was no evidence for dissection. Aortic root: The aortic root was not dilated. Ascending aorta: The ascending aorta was normal in size. Descending aorta: The descending aorta was normal in size. Mitral valve: Mild thickening. Leaflet separation was normal. Mobility was not restricted. Mild systolic bowing without prolapse, involving the anterior leaflet. No evidence of vegetation. No evidence of vegetation. Doppler: Transvalvular velocity was within the normal range. There was no evidence for stenosis. There was mild regurgitation. Left atrium: The atrium was normal in size. No evidence of thrombus in the atrial cavity or appendage. The appendage was of normal size. Emptying velocity was mildly reduced. Right ventricle: The cavity size was normal. Wall thickness was normal. Systolic function was normal. Pulmonic valve: Structurally normal valve. There was a possible, small, 0.9cm (L) x 0.3cm (W), strand-like, mobilemass on the pulmonic aspect of the right cusp; the appearance is consistent with vegetation. Doppler: Transvalvular velocity was within the normal range. There was no evidence for stenosis. There was no regurgitation. Tricuspid valve: Structurally normal valve. Leaflet separation was normal. No evidence of vegetation. Doppler: Transvalvular velocity was within the normal range. There was no evidence for stenosis. There was trivial regurgitation. Pulmonary artery: The main pulmonary artery was normal-sized. Right atrium: The atrium was normal in size. No evidence of thrombus. Pericardium: There was no pericardial effusion. I have personally reviewed the images and have reviewed and edited the reported findings. Electronically signed by Ermelinda Balderrama 12/02/2017 15:44
[2017-12-02] MEDS: Lactated Ringers 1,000 ML 80 ML IV (09:26)
[2017-12-02] MEDS: DULoxetine 30 MG CAP 60 MG PO (11:03)
[2017-12-02] MEDS: Gabapentin 600 MG TAB 1200 MG PO ×2 (11:03→21:44)
[2017-12-02] MEDS: busPIRone 5 MG TAB 10 MG PO ×2 (11:03→14:27)
[2017-12-02] MEDS: Buprenorphine/Naloxone 8 mg/2 mg FILM 2 EACH SL (11:04)
[2017-12-02] MEDS: ACETAMINOPHEN 1,000 MG/100 ML BTL 400 MG IVPB (11:04)
[2017-12-02] MEDS: Normal Saline Flush 10 ML SYR IVP ×3 (11:07→19:22)
[2017-12-02 11:54] LABS: CREATININE 0.61 mg/dL (0.55-1.02)
[2017-12-02 11:57] LABS: Vancomycin, Trough 24.6 ug/mL (10.0-20.0)
--- NOTE | 2017-12-02 14:05 | PDOC.CMPRO ---
- If Service Date Differs Date of service: 12/02/17 Time of Service: 14:05 Care Management Progress Note S/O: Patient presented at interdisciplinary rounds. Denisse is returning from the OR following a transeophageal echocardiography (DEBORAH) when CM visits. She reports that she is feeling better today compared with yesterday. Per MD, Denisse will have a CT scan and then continue on with IV antibiotics; possibly 6 weeks. Dneisse reports that she is not happy about this but is in better spirits today than she has been in the past. A: 32 y/o female admitted 11/26/17 for Sepsis. P: Denisse will return home with no anticipated services once medically cleared per MD. She will follow up with PCP and plan of care as prescribed. Denisse's boyfriend, Carlos will transport via private vehicle.
[2017-12-02] MEDS: Gabapentin 600 MG TAB PO (14:26)
--- NOTE | 2017-12-02 17:14 | PGE_ITS ---
Date of service: 12/02/17 Time of Service: 17:13 Assessment and Plan (1) Fever: Current visit: No Status: Acute Continues to spike fevers in the setting of antibiotic therapy with IV Vancomycin. This was previously thought to be related to septic arthritis, R knee was aspirated by Dr. Flores, from which he did not obtain any fluid. She has been followed by [facility], Dr. Flores does not feel this is related to septic joint as her initial cultures were actually from her prepatellar bursa. She has a history of endocarditis. She had a TTE, with no noted vegetation of her valves. She had a DEBORAH today, which did reveal what appears to be small vegetation on her aortic and pulmonic valves. She did have one set of blood cultures grow Micrococcus Luteus, which was reported as a probably contaminant. Blood cultures were repeated with her fever on 11/30/17 which have yielded no growth at 24 hours. Plan to continue IV vanco and contact ID at [facility] for recommendations. She has been seen at [facility] in the past and reports that there was discussion about potential valve replacement last year when she was a patient there. (2) Opioid dependence: Current visit: No Status: Chronic Continue home dose of Buprenorphine. Avoid Opiates for pain control as much as possible. Patient has displayed some occasional drug seeking behavior. (3) DVT prophylaxis: Current visit: No Status: Acute Continue subcutaneous lovenox. (4) Discharge planning issues: Current visit: Yes Status: Acute She is a full code. This case was discussed with Dr. Villanueva who is in agreement. (5) Insomnia: Current visit: Yes Status: Acute She reports insomnia. Melatonin and benadryl ordered for PRN use at . Subjective Interval history since last seen: Denisse is a 32-year-old woman with a past medical history significant for IVDA, now reportedly in remission, with a prior sepsis syndrome, Osteomyelitis necessitating a right sided below the knee amputation, as well as endocarditis, presented to [facility] emergency department with a 2-day history of pain and swelling with redness over her right kneecap. She wears a prosthesis over her right BKA and has a abrasion over the end of the stump without any reported drainage, but with noted swelling and erythema overlying the right knee. She also complained of fevers at home. The patient was initially found to be febrile but without a leukocytosis. She underwent a tap of the right knee in the ED, which actually from her prepatellar bursa, there was note of evacuation of purulent material, the culture grew Staph Aureus. She went on to go to the OR with Dr. Flores, Orthopedics, with reported tap of the knee joint, culture results unavailable. One set of blood cultures is growing micrococcus luteus, reportedly a probable contaminant. She had a TTE which did not show evidence of endocarditis. She went on to have a DEBORAH today, which revealed a possible, small, strand-like, mobile mass on the aortic valve, consistent with the appearance of vegetation. She also had a possible, small, strand-like, mobile mass on the pulmonic valve with the appearance consistent with vegetation as well. She continues to run fevers, as recently as 2315 last night she had a temperature of 38.5. She remains tachycardic. She is not sleeping well here and is asking for something to help her sleep. Otherwise, she denies chest pain/pressure, palpitations, no shortness of breath, coughing, wheezing. Her bowels and bladder are functioning well. Exam Const General: cooperative, comfortable and no acute distress (Thin female.) Orientation: alert, awake and oriented x3 HENMT Head: normocephalic and atraumatic Mouth: moist mucous membranes Neck Neck: supple Resp Effort & Inspection: normal respiratory effort Auscultation: clear to auscultation bilaterally, no rales, no rhonchi and no wheezes Cardio Rate: regular rate and tachycardic Heart Sounds: no murmurs GI Palpation: soft, no masses and nontender Auscultation: normal bowel sounds Skin Wounds: amputation site (Wound noted on stump RLE, no drainage, no erythema. Mild edema above amputation site, this is not an unusual finding for her. Surgical incision well healed otherwise. Knee appears benign.) Extrem General: no clubbing, cyanosis or edema and amputation noted Below the knee: right Objective Objective Clinical Data: Abnormal lab results 12/02/17 Range/Units 11:25 Vancomycin Trough 24.6 H* (10.0-20.0) ug/mL Vital Signs Temperature 37.1 C 12/02/17 16:21 Temperature Source Tympanic 12/02/17 16:21 Pulse 117 H 12/02/17 16:21 Pulse Rhythm Regular 12/02/17 09:00 Pulse 70 11/27/17 06:16 Respiratory Rate 20 12/02/17 16:21 Respiratory Effort Non-Labored 12/02/17 09:00 Respiratory Depth Normal 12/02/17 09:00 Respiratory Pattern Normal 12/02/17 09:00 Blood Pressure 133/92 H 12/02/17 16:21 Blood Pressure Mean 80 11/27/17 00:46 Blood Pressure Position Supine 11/26/17 19:33 Pulse Oximetry 97 12/02/17 16:21 Respiratory End-tidal CO2 32 11/27/17 12:30 Oxygen Delivery Method Room Air 12/02/17 16:21 Oxygen Flow Rate 0 12/02/17 16:21 Pain Level 0 12/02/17 07:25 Comment 12/01/17 23:15 Intake & Output 12/01/17 12/02/17 12/02/17 23:59 11:59 23:59 Intake Total 1190 / 1190 1025 / 1025 700 / 700 Balance 1190 / 1190 1025 / 1025 700 / 700 Intake: IV 350 / 350 1010 / 1010 Oral 840 / 840 15 / 15 700 / 700 Other: Urine Appearance Clear Comment not visualized, denies any issues with voiding. voiding w/o difficulty Voiding Methods Toilet Toilet Laboratory Results WBC 4.62 k/cumm (4.4-10.8) 11/29/17 07:05 RBC 3.42 m/cumm (4.00-5.20) L 11/29/17 07:05 Hgb 9.7 g/dL (12.0-15.5) L 11/29/17 07:05 Hct 30.3 % (36.0-46.0) L 11/29/17 07:05 MCV 88.6 fL (80-95) 11/29/17 07:05 MCH 28.4 pg (27.0-33.0) 11/29/17 07:05 MCHC 32.0 g/dL (32.0-36.0) 11/29/17 07:05 RDW 13.1 % (11.7-14.6) 11/29/17 07:05 Plt Count 186 x1000/uL (130-400) 11/29/17 07:05 MPV 8.8 fL (8.0-11.0) 11/29/17 07:05 Immature Gran % 0.0 11/29/17 07:05 Neutrophils % 62.7 11/29/17 07:05 Lymphocytes % 24.5 11/29/17 07:05 Monocytes % 6.5 11/29/17 07:05 Eosinophils % 6.1 11/29/17 07:05 Basophils % 0.2 11/29/17 07:05 Absolute Neutrophils 2.90 k/cumm (1.2-6.7) 11/29/17 07:05 Absolute Lymphocytes 1.13 k/cumm (1.2-3.4) L 11/29/17 07:05 Absolute Monocytes 0.30 k/cumm (0.11-0.7) 11/29/17 07:05 Absolute Eosinophils 0.28 k/cumm (0.0-0.7) 11/29/17 07:05 Absolute Basophils 0.01 k/cumm (0.0-0.2) 11/29/17 07:05 ESR 59 MM/HR (0-20) H 11/29/17 07:05 Sodium 140 mmol/L (136-145) 11/29/17 07:05 Potassium 4.6 mmol/L (3.5-5.1) D 11/29/17 07:05 Chloride 104 mmol/L (98-107) 11/29/17 07:05 Carbon Dioxide 28.5 mmol/L (21.0-32.0) 11/29/17 07:05 Anion Gap 7.5 mmol/L (3-11) 11/29/17 07:05 BUN 11 mg/dL (7-18) 11/29/17 07:05 Creatinine 0.61 mg/dL (0.55-1.02) 12/02/17 11:25 Estimated GFR/1.73 m2 >= 60.00 (mL/min/1.73m2) 12/02/17 11:25 Glucose 97 mg/dL (70-100) D 11/29/17 07:05 Lactate 1.6 mmol/L (0.6-1.4) H 11/26/17 15:00 Calcium 8.4 mg/dL (8.5-10.1) L 11/29/17 07:05 Magnesium 2.1 mg/dL (1.8-2.4) 11/26/17 15:00 Total Bilirubin 0.2 mg/dL (0.2-1.0) 11/28/17 09:45 AST 24 U/L (15-37) 11/28/17 09:45 ALT 72 U/L (12-78) 11/28/17 09:45 Alkaline Phosphatase 95 U/L (46-116) 11/28/17 09:45 C-Reactive Protein 7.00 mg/dL (0.0-0.3) H 11/29/17 07:05 Total Protein 6.5 g/dL (6.4-8.2) 11/28/17 09:45 Albumin 2.8 g/dL (3.4-5.0) L 11/28/17 09:45 Urine HCG, Qual Negative 11/27/17 07:58 Fluid Source R knee 11/26/17 15:06 Fluid Color Red 11/26/17 15:06 Fluid Appearance Cloudy 11/26/17 15:06 Fluid WBC 6010 /MM3 (0-0) H 11/26/17 15:06 Fluid Mononuclear Cell 14 % (0-0) H 11/26/17 15:06 Fl Polymorphonucl Cell 86 % (0-0) H 11/26/17 15:06 Fluid Crystals See comment 11/26/17 15:06 Fluid Crystal Source R knee 11/26/17 15:06 Fl Crystal Path Review See comment 11/26/17 15:06 Vancomycin Trough 24.6 ug/mL (10.0-20.0) H* 12/02/17 11:25 Urine Opiates Screen Negative (Negative) 11/30/17 18:22 Urine Methadone Screen Negative (Negative) 11/30/17 18:22 Ur Barbiturates Screen Negative (Negative) 11/30/17 18:22 Ur Tricyclics Screen Negative (Negative) 11/30/17 18:22 Ur Amphetamines Screen Negative (Negative) 11/30/17 18:22 U Benzodiazepines Scrn Negative (Negative) 11/30/17 18:22 Urine Cocaine Screen Negative (Negative) 11/30/17 18:22 Ur THC Screen Negative (Negative) 11/30/17 18:22 Path Cons Comment 11/26/17 15:06
[2017-12-02] MEDS: Enoxaparin 40 MG/0.4 ML SYR SC (17:21)
[2017-12-02] MEDS: VANCOMYCIN 1,250 MG in Normal Saline 250 ML 166.667 MG IVPB (17:27)
[2017-12-02] MEDS: Acetaminophen 500 MG TAB 1000 MG PO (19:22)
[2017-12-02] MEDS: Normal Saline 500 ML 167 ML IVPB (19:55)
[2017-12-02] MEDS: Ibuprofen 800 MG TAB PO (21:44)
[2017-12-03 00:15] VITALS: BP 100/57; PULSE 65; RESP 20; TEMP 35.3; O2SAT 96
[2017-12-03] MEDS: Normal Saline Flush 10 ML SYR IVP ×3 (00:49→10:40)
[2017-12-03] MEDS: VANCOMYCIN 1,250 MG in Normal Saline 250 ML 167 MG IVPB ×2 (00:49→05:23)
[2017-12-03] MEDS: Methylphenidate 10 MG TAB 20 MG PO ×3 (05:22→13:13)
[2017-12-03 07:20] VITALS: O2SAT 95
[2017-12-03 07:35] VITALS: BP 122/69; PULSE 95; RESP 18; TEMP 36.3; O2SAT 100
[2017-12-03 07:48] LABS: Abs Immature Grans 0.01 k/cumm (0.0-0.09); Absolute Basophil Count 0.04 k/cumm (0.0-0.2); Absolute Eosinophil Count 0.46 k/cumm (0.0-0.7); Absolute Lymphocyte Count 1.04 k/cumm (1.2-3.4); Absolute Monocyte Count 0.71 k/cumm (0.11-0.7); Absolute Neutrophil Count 4.98 k/cumm (1.2-6.7); Anion Gap 8.3 mmol/L (3-11); BUN 11 mg/dL (7-18); Basophils % 0.6; CO2 26.7 mmol/L (21.0-32.0); CREATININE 0.59 mg/dL (0.55-1.02); Calcium 8.4 mg/dL (8.5-10.1); Chloride 104 mmol/L (98-107); Eosinophils % 6.4; Glucose 135 mg/dL (70-100); HCT 31.4 % (36.0-46.0); HGB 10.2 g/dL (12.0-15.5); Immature Grans % 0.1; Lymphocytes % 14.4; Mean Corp. HGB Concentration 32.5 g/dL (32.0-36.0); Mean Corpuscular Hemoglobin 28.6 pg (27.0-33.0); Mean Platelet Volume 9.3 fL (8.0-11.0); Monocytes % 9.8; Neutrophils % 68.7; Platelet Count 244 x1000/uL (130-400); Potassium 4.3 mmol/L (3.5-5.1); RBC 3.57 m/cumm (4.00-5.20); RBC Distribution Width 12.9 % (11.7-14.6); Sodium 139 mmol/L (136-145); White Blood Cell Count 7.24 k/cumm (4.4-10.8)
--- NOTE | 2017-12-03 08:07 | NUR.NOTE ---
[id number] HUY came to tell me that pt's iv in L:fa was out. Entered room to find iv catheter out. gauze drsg applied.Pt had asked about me d/c ing her midline. Told pt that Annie (Martha) would be looking into her midline today. Came to nurse's station to get supplies to start a new iv and went back to room to find pt with her midline in her hand. Pt stated it was hurting her and she was worried about an infection so she took it out. HUY after this happened told this nurse that she was fiddling with the bottom of the tape on her midline drsg when he was in the room and he had told her not to pull at it and that Annie would be looking at it. drsg applied to site. Nursing Note:
[2017-12-03] MEDS: Gabapentin 600 MG TAB 1200 MG PO (08:40)
[2017-12-03] MEDS: DULoxetine 30 MG CAP 60 MG PO (08:40)
[2017-12-03] MEDS: Buprenorphine/Naloxone 8 mg/2 mg FILM 2 EACH SL (08:41)
--- NOTE | 2017-12-03 11:39 | DI.RAD_ITS ---
SYMPTOM/DIAGNOSIS: EVAL PRIOR TO MRI, ENDOCARDITIS, WOUND TO STUMP AP AND LATERAL PROJECTIONS RIGHT KNEE: There is prominent soft tissue swelling over the pre-patellar region. Bony structures appear intact. There are no regions of bony destruction or periosteal new bone involving the knee or stump in this patient who is status BK amputation.
--- NOTE | 2017-12-03 12:42 | W.PM.PROGNOT ---
Assessment and Plan (1) Fever: Current visit: No Status: Acute Continues to spike fevers in the setting of antibiotic therapy with IV Vancomycin. This was previously thought to be related to septic arthritis, R knee was aspirated by Dr. Flores, from which he did not obtain any fluid. She has been followed by Ortho, Dr. Flores does not feel this is related to septic joint as her initial cultures were actually from her prepatellar bursa (cutlure grew MSSA). She has a history of endocarditis. She had a TTE, with no noted vegetation of her valves. She had a DEBORAH 12/02/17, which did reveal what appears to be small vegetation on her aortic and pulmonic valves. She did have one set of blood cultures grow Micrococcus Luteus, which was reported as a probably contaminant. Blood cultures were repeated with her fever on 11/30/17 which have yielded no growth at 48 hours. This case was discussed with ID at [facility] for recommendations. She has been seen at [facility] in the past and reports that there was discussion about potential valve replacement last year when she was a patient there. ID at [facility] recommends MRI of the R knee and stump. ID agrees with changing her antibiotics over to Oxacillin as the original culture from the prepatellar bursa grew MSSA. Plan to MRI right knee and stump and CT chest, abdomen and pelvis to search for occult abscess. Her vancomycin has been discontinued and Oxacillin has been ordered. (2) Opioid dependence: Current visit: No Status: Chronic Continue home dose of Buprenorphine. Continue to avoid Opiates for pain control. Patient has displayed some occasional drug seeking behavior. She is not currently verbalizing pain. (3) DVT prophylaxis: Current visit: No Status: Acute Continue subcutaneous lovenox. (4) Discharge planning issues: Current visit: No Status: Acute She is a full code. This case was discussed with Dr. Villanueva who is in agreement. (5) Insomnia: Current visit: No Status: Acute She reports sleeping better last night. Melatonin and benadryl ordered for PRN use at . Subjective Interval history since last seen: Denisse is a 32-year-old woman with a past medical history significant for IVDA, now reportedly in remission, with a prior sepsis syndrome, Osteomyelitis necessitating a right sided below the knee amputation, as well as endocarditis, presented to [facility] emergency department with a 2-day history of pain and swelling with redness over her right kneecap. She wears a prosthesis over her right BKA and has a abrasion over the end of the stump without any reported drainage, but with noted swelling and erythema overlying the right knee. She also complained of fevers at home. The patient was initially found to be febrile but without a leukocytosis. She underwent a tap of the right knee in the ED, which actually from her prepatellar bursa, there was note of evacuation of purulent material, the culture grew Staph Aureus. She went on to go to the OR with Dr. Flores, Orthopedics, with reported tap of the knee joint, culture results unavailable. One set of blood cultures is growing micrococcus luteus, reportedly a probable contaminant. She had a TTE which did not show evidence of endocarditis. She went on to have a DEBORAH 12/02/17, which revealed a possible, small, strand-like, mobile mass on the aortic valve, consistent with the appearance of vegetation. She also had a possible, small, strand-like, mobile mass on the pulmonic valve with the appearance consistent with vegetation as well. She continues to run fevers, as recently as 2021 last night, her temperature at that time was 39.7. She reports that she slept better last night. We discussed the [facility] Infectious disease recommendation to switch her antibiotics to IV Oxacillin. She states she will not stay here for 6 weeks. She feels tearful, but denies any other concerns, such as chest pain/pressure, palpitations, no shortness of breath, coughing, wheezing. Her bowels and bladder are functioning well. Exam Const General: cooperative, comfortable and no acute distress (Thin female.) Orientation: alert, awake and oriented x3 [facility] Head: normocephalic and atraumatic Mouth: moist mucous membranes Neck Neck: supple Resp Effort & Inspection: normal respiratory effort Auscultation: clear to auscultation bilaterally, no rales, no rhonchi and no wheezes Cardio Rate: regular rate and not tachycardic (not tachycardic at present.) Heart Sounds: no murmurs GI Palpation: soft, no masses and nontender Auscultation: normal bowel sounds Skin Wounds: amputation site (Wound noted on stump RLE, no drainage, no erythema. Mild edema above amputation site, this is not an unusual finding for her. Surgical incision well healed otherwise. Knee appears benign. No warmth, edema or erythema to the knee joint.) Extrem General: no clubbing, cyanosis or edema and amputation noted Below the knee: right Objective Objective Clinical Data: Abnormal lab results 12/03/17 12/03/17 Range/Units 07:30 07:30 RBC 3.57 L (4.00-5.20) m/cumm Hgb 10.2 L (12.0-15.5) g/dL Hct 31.4 L (36.0-46.0) % Absolute Lymphocytes 1.04 L (1.2-3.4) k/cumm Absolute Monocytes 0.71 H (0.11-0.7) k/cumm Glucose 135 H (70-100) mg/dL Calcium 8.4 L (8.5-10.1) mg/dL Vital Signs Temperature 36.3 C L 12/03/17 07:35 Temperature Source Tympanic 12/03/17 07:35 Pulse 95 H 12/03/17 07:35 Pulse Rhythm Regular 12/03/17 00:15 Pulse 70 11/27/17 06:16 Respiratory Rate 18 12/03/17 07:35 Respiratory Effort 12/03/17 00:15 Respiratory Depth Normal 12/03/17 00:15 Respiratory Pattern Normal 12/03/17 00:15 Blood Pressure 122/69 12/03/17 07:35 Blood Pressure Mean 80 11/27/17 00:46 Blood Pressure Position Supine 11/26/17 19:33 Pulse Oximetry 100 12/03/17 07:35 Respiratory End-tidal CO2 32 11/27/17 12:30 Oxygen Delivery Method Room Air 12/03/17 07:35 Oxygen Flow Rate 0 12/03/17 07:35 Pain Level 0 12/03/17 07:35 Comment 12/03/17 00:15 Intake & Output 12/02/17 12/03/17 12/03/17 23:59 11:59 23:59 Intake Total 1040.617 / 2814.962 8362.717 / 1037.717 Balance 1040.617 / 3556.466 9831.717 / 1037.717 Intake: IV 340.617 / 340.617 497.717 / 497.717 Oral 700 / 700 540 / 540 Other: Urine Color Yellow Comment pt voiding independently in the toilet an flushing void x 2 during noc Voiding Methods Toilet Toilet Laboratory Results WBC 7.24 k/cumm (4.4-10.8) 12/03/17 07:30 RBC 3.57 m/cumm (4.00-5.20) L 12/03/17 07:30 Hgb 10.2 g/dL (12.0-15.5) L 12/03/17 07:30 Hct 31.4 % (36.0-46.0) L 12/03/17 07:30 MCV 88.0 fL (80-95) 12/03/17 07:30 MCH 28.6 pg (27.0-33.0) 12/03/17 07:30 MCHC 32.5 g/dL (32.0-36.0) 12/03/17 07:30 RDW 12.9 % (11.7-14.6) 12/03/17 07:30 Plt Count 244 x1000/uL (130-400) 12/03/17 07:30 MPV 9.3 fL (8.0-11.0) 12/03/17 07:30 Immature Gran % 0.1 12/03/17 07:30 Neutrophils % 68.7 12/03/17 07:30 Lymphocytes % 14.4 12/03/17 07:30 Monocytes % 9.8 12/03/17 07:30 Eosinophils % 6.4 12/03/17 07:30 Basophils % 0.6 12/03/17 07:30 Absolute Neutrophils 4.98 k/cumm (1.2-6.7) 12/03/17 07:30 Absolute Lymphocytes 1.04 k/cumm (1.2-3.4) L 12/03/17 07:30 Absolute Monocytes 0.71 k/cumm (0.11-0.7) H 12/03/17 07:30 Absolute Eosinophils 0.46 k/cumm (0.0-0.7) 12/03/17 07:30 Absolute Basophils 0.04 k/cumm (0.0-0.2) 12/03/17 07:30 ESR 59 MM/HR (0-20) H 11/29/17 07:05 Sodium 139 mmol/L (136-145) 12/03/17 07:30 Potassium 4.3 mmol/L (3.5-5.1) 12/03/17 07:30 Chloride 104 mmol/L (98-107) 12/03/17 07:30 Carbon Dioxide 26.7 mmol/L (21.0-32.0) 12/03/17 07:30 Anion Gap 8.3 mmol/L (3-11) 12/03/17 07:30 BUN 11 mg/dL (7-18) 12/03/17 07:30 Creatinine 0.59 mg/dL (0.55-1.02) 12/03/17 07:30 Estimated GFR/1.73 m2 >= 60.00 (mL/min/1.73m2) 12/03/17 07:30 Glucose 135 mg/dL (70-100) H 12/03/17 07:30 Lactate 1.6 mmol/L (0.6-1.4) H 11/26/17 15:00 Calcium 8.4 mg/dL (8.5-10.1) L 12/03/17 07:30 Magnesium 2.1 mg/dL (1.8-2.4) 11/26/17 15:00 Total Bilirubin 0.2 mg/dL (0.2-1.0) 11/28/17 09:45 AST 24 U/L (15-37) 11/28/17 09:45 ALT 72 U/L (12-78) 11/28/17 09:45 Alkaline Phosphatase 95 U/L (46-116) 11/28/17 09:45 C-Reactive Protein 7.00 mg/dL (0.0-0.3) H 11/29/17 07:05 Total Protein 6.5 g/dL (6.4-8.2) 11/28/17 09:45 Albumin 2.8 g/dL (3.4-5.0) L 11/28/17 09:45 Urine HCG, Qual Negative 11/27/17 07:58 Fluid Source R knee 11/26/17 15:06 Fluid Color Red 11/26/17 15:06 Fluid Appearance Cloudy 11/26/17 15:06 Fluid WBC 6010 /MM3 (0-0) H 11/26/17 15:06 Fluid Mononuclear Cell 14 % (0-0) H 11/26/17 15:06 Fl Polymorphonucl Cell 86 % (0-0) H 11/26/17 15:06 Fluid Crystals See comment 11/26/17 15:06 Fluid Crystal Source R knee 11/26/17 15:06 Fl Crystal Path Review See comment 11/26/17 15:06 Vancomycin Trough 24.6 ug/mL (10.0-20.0) H* 12/02/17 11:25 Urine Opiates Screen Negative (Negative) 11/30/17 18:22 Urine Methadone Screen Negative (Negative) 11/30/17 18:22 Ur Barbiturates Screen Negative (Negative) 11/30/17 18:22 Ur Tricyclics Screen Negative (Negative) 11/30/17 18:22 Ur Amphetamines Screen Negative (Negative) 11/30/17 18:22 U Benzodiazepines Scrn Negative (Negative) 11/30/17 18:22 Urine Cocaine Screen Negative (Negative) 11/30/17 18:22 Ur THC Screen Negative (Negative) 11/30/17 18:22 Path Cons Comment 11/26/17 15:06
--- NOTE | 2017-12-03 12:48 | PGE_ITS ---
Assessment and Plan (1) Fever: Current visit: No Status: Acute Continues to spike fevers in the setting of antibiotic therapy with IV Vancomycin. This was previously thought to be related to septic arthritis, R knee was aspirated by Dr. Flores, from which he did not obtain any fluid. She has been followed by Ortho, Dr. Flores does not feel this is related to septic joint as her initial cultures were actually from her prepatellar bursa (cutlure grew MSSA). She has a history of endocarditis. She had a TTE, with no noted vegetation of her valves. She had a DEBORAH 12/02/17, which did reveal what appears to be small vegetation on her aortic and pulmonic valves. She did have one set of blood cultures grow Micrococcus Luteus, which was reported as a probably contaminant. Blood cultures were repeated with her fever on 11/30/17 which have yielded no growth at 48 hours. This case was discussed with ID at [facility] for recommendations. She has been seen at [facility] in the past and reports that there was discussion about potential valve replacement last year when she was a patient there. ID at [facility] recommends MRI of the R knee and stump. ID agrees with changing her antibiotics over to Oxacillin as the original culture from the prepatellar bursa grew MSSA. Plan to MRI right knee and stump and CT chest, abdomen and pelvis to search for occult abscess. Her vancomycin has been discontinued and Oxacillin has been ordered. (2) Opioid dependence: Current visit: No Status: Chronic Continue home dose of Buprenorphine. Continue to avoid Opiates for pain control. Patient has displayed some occasional drug seeking behavior. She is not currently verbalizing pain. (3) DVT prophylaxis: Current visit: No Status: Acute Continue subcutaneous lovenox. (4) Discharge planning issues: Current visit: No Status: Acute She is a full code. This case was discussed with Dr. Villanueva who is in agreement. (5) Insomnia: Current visit: No Status: Acute She reports sleeping better last night. Melatonin and benadryl ordered for PRN use at . Subjective Interval history since last seen: Denisse is a 32-year-old woman with a past medical history significant for IVDA, now reportedly in remission, with a prior sepsis syndrome, Osteomyelitis necessitating a right sided below the knee amputation, as well as endocarditis, presented to [facility] emergency department with a 2-day history of pain and swelling with redness over her right kneecap. She wears a prosthesis over her right BKA and has a abrasion over the end of the stump without any reported drainage, but with noted swelling and erythema overlying the right knee. She also complained of fevers at home. The patient was initially found to be febrile but without a leukocytosis. She underwent a tap of the right knee in the ED, which actually from her prepatellar bursa, there was note of evacuation of purulent material, the culture grew Staph Aureus. She went on to go to the OR with Dr. Flores, Orthopedics, with reported tap of the knee joint, culture results unavailable. One set of blood cultures is growing micrococcus luteus, reportedly a probable contaminant. She had a TTE which did not show evidence of endocarditis. She went on to have a DEBORAH 12/02/17, which revealed a possible, small, strand-like, mobile mass on the aortic valve, consistent with the appearance of vegetation. She also had a possible, small, strand-like, mobile mass on the pulmonic valve with the appearance consistent with vegetation as well. She continues to run fevers, as recently as 2021 last night, her temperature at that time was 39.7. She reports that she slept better last night. We discussed the [facility] Infectious disease recommendation to switch her antibiotics to IV Oxacillin. She states she will not stay here for 6 weeks. She feels tearful, but denies any other concerns, such as chest pain/pressure, palpitations, no shortness of breath, coughing, wheezing. Her bowels and bladder are functioning well. Exam Const General: cooperative, comfortable and no acute distress (Thin female.) Orientation: alert, awake and oriented x3 [facility] Head: normocephalic and atraumatic Mouth: moist mucous membranes Neck Neck: supple Resp Effort & Inspection: normal respiratory effort Auscultation: clear to auscultation bilaterally, no rales, no rhonchi and no wheezes Cardio Rate: regular rate and not tachycardic (not tachycardic at present.) Heart Sounds: no murmurs GI Palpation: soft, no masses and nontender Auscultation: normal bowel sounds Skin Wounds: amputation site (Wound noted on stump RLE, no drainage, no erythema. Mild edema above amputation site, this is not an unusual finding for her. Surgical incision well healed otherwise. Knee appears benign. No warmth, edema or erythema to the knee joint.) Extrem General: no clubbing, cyanosis or edema and amputation noted Below the knee: right Objective Objective Clinical Data: Abnormal lab results 12/03/17 12/03/17 Range/Units 07:30 07:30 RBC 3.57 L (4.00-5.20) m/cumm Hgb 10.2 L (12.0-15.5) g/dL Hct 31.4 L (36.0-46.0) % Absolute Lymphocytes 1.04 L (1.2-3.4) k/cumm Absolute Monocytes 0.71 H (0.11-0.7) k/cumm Glucose 135 H (70-100) mg/dL Calcium 8.4 L (8.5-10.1) mg/dL Vital Signs Temperature 36.3 C L 12/03/17 07:35 Temperature Source Tympanic 12/03/17 07:35 Pulse 95 H 12/03/17 07:35 Pulse Rhythm Regular 12/03/17 00:15 Pulse 70 11/27/17 06:16 Respiratory Rate 18 12/03/17 07:35 Respiratory Effort 12/03/17 00:15 Respiratory Depth Normal 12/03/17 00:15 Respiratory Pattern Normal 12/03/17 00:15 Blood Pressure 122/69 12/03/17 07:35 Blood Pressure Mean 80 11/27/17 00:46 Blood Pressure Position Supine 11/26/17 19:33 Pulse Oximetry 100 12/03/17 07:35 Respiratory End-tidal CO2 32 11/27/17 12:30 Oxygen Delivery Method Room Air 12/03/17 07:35 Oxygen Flow Rate 0 12/03/17 07:35 Pain Level 0 12/03/17 07:35 Comment 12/03/17 00:15 Intake & Output 12/02/17 12/03/17 12/03/17 23:59 11:59 23:59 Intake Total 1040.617 / 4019.031 5684.717 / 1037.717 Balance 1040.617 / 8777.340 4894.717 / 1037.717 Intake: IV 340.617 / 340.617 497.717 / 497.717 Oral 700 / 700 540 / 540 Other: Urine Color Yellow Comment pt voiding independently in the toilet an flushing void x 2 during noc Voiding Methods Toilet Toilet Laboratory Results WBC 7.24 k/cumm (4.4-10.8) 12/03/17 07:30 RBC 3.57 m/cumm (4.00-5.20) L 12/03/17 07:30 Hgb 10.2 g/dL (12.0-15.5) L 12/03/17 07:30 Hct 31.4 % (36.0-46.0) L 12/03/17 07:30 MCV 88.0 fL (80-95) 12/03/17 07:30 MCH 28.6 pg (27.0-33.0) 12/03/17 07:30 MCHC 32.5 g/dL (32.0-36.0) 12/03/17 07:30 RDW 12.9 % (11.7-14.6) 12/03/17 07:30 Plt Count 244 x1000/uL (130-400) 12/03/17 07:30 MPV 9.3 fL (8.0-11.0) 12/03/17 07:30 Immature Gran % 0.1 12/03/17 07:30 Neutrophils % 68.7 12/03/17 07:30 Lymphocytes % 14.4 12/03/17 07:30 Monocytes % 9.8 12/03/17 07:30 Eosinophils % 6.4 12/03/17 07:30 Basophils % 0.6 12/03/17 07:30 Absolute Neutrophils 4.98 k/cumm (1.2-6.7) 12/03/17 07:30 Absolute Lymphocytes 1.04 k/cumm (1.2-3.4) L 12/03/17 07:30 Absolute Monocytes 0.71 k/cumm (0.11-0.7) H 12/03/17 07:30 Absolute Eosinophils 0.46 k/cumm (0.0-0.7) 12/03/17 07:30 Absolute Basophils 0.04 k/cumm (0.0-0.2) 12/03/17 07:30 ESR 59 MM/HR (0-20) H 11/29/17 07:05 Sodium 139 mmol/L (136-145) 12/03/17 07:30 Potassium 4.3 mmol/L (3.5-5.1) 12/03/17 07:30 Chloride 104 mmol/L (98-107) 12/03/17 07:30 Carbon Dioxide 26.7 mmol/L (21.0-32.0) 12/03/17 07:30 Anion Gap 8.3 mmol/L (3-11) 12/03/17 07:30 BUN 11 mg/dL (7-18) 12/03/17 07:30 Creatinine 0.59 mg/dL (0.55-1.02) 12/03/17 07:30 Estimated GFR/1.73 m2 >= 60.00 (mL/min/1.73m2) 12/03/17 07:30 Glucose 135 mg/dL (70-100) H 12/03/17 07:30 Lactate 1.6 mmol/L (0.6-1.4) H 11/26/17 15:00 Calcium 8.4 mg/dL (8.5-10.1) L 12/03/17 07:30 Magnesium 2.1 mg/dL (1.8-2.4) 11/26/17 15:00 Total Bilirubin 0.2 mg/dL (0.2-1.0) 11/28/17 09:45 AST 24 U/L (15-37) 11/28/17 09:45 ALT 72 U/L (12-78) 11/28/17 09:45 Alkaline Phosphatase 95 U/L (46-116) 11/28/17 09:45 C-Reactive Protein 7.00 mg/dL (0.0-0.3) H 11/29/17 07:05 Total Protein 6.5 g/dL (6.4-8.2) 11/28/17 09:45 Albumin 2.8 g/dL (3.4-5.0) L 11/28/17 09:45 Urine HCG, Qual Negative 11/27/17 07:58 Fluid Source R knee 11/26/17 15:06 Fluid Color Red 11/26/17 15:06 Fluid Appearance Cloudy 11/26/17 15:06 Fluid WBC 6010 /MM3 (0-0) H 11/26/17 15:06 Fluid Mononuclear Cell 14 % (0-0) H 11/26/17 15:06 Fl Polymorphonucl Cell 86 % (0-0) H 11/26/17 15:06 Fluid Crystals See comment 11/26/17 15:06 Fluid Crystal Source R knee 11/26/17 15:06 Fl Crystal Path Review See comment 11/26/17 15:06 Vancomycin Trough 24.6 ug/mL (10.0-20.0) H* 12/02/17 11:25 Urine Opiates Screen Negative (Negative) 11/30/17 18:22 Urine Methadone Screen Negative (Negative) 11/30/17 18:22 Ur Barbiturates Screen Negative (Negative) 11/30/17 18:22 Ur Tricyclics Screen Negative (Negative) 11/30/17 18:22 Ur Amphetamines Screen Negative (Negative) 11/30/17 18:22 U Benzodiazepines Scrn Negative (Negative) 11/30/17 18:22 Urine Cocaine Screen Negative (Negative) 11/30/17 18:22 Ur THC Screen Negative (Negative) 11/30/17 18:22 Path Cons Comment 11/26/17 15:06
--- NOTE | 2017-12-03 13:00 | DI.MRI_ITS ---
SYMPTOMS/DIAGNOSIS: CONTINUED FEVERS ON ABX, ENDOCARDITIS, ? ABSCESS RIGHT KNEE MRI: The examination was carried out according to the usual protocol. A large quantity of fluid and debris are noted in the prepatellar bursa. The extensor mechanism of the knee is intact. No significant bony signal abnormality is seen. The patella and patellar cartilage are well maintained. The medial and lateral patellar retinaculum and medial and lateral collateral ligaments of the knee appear intact. There is no evidence of a meniscal or cruciate tear. SUMMARY: Large quantity of fluid and heterogeneous signal is noted in the prepatellar bursa. The findings would certainly be consistent with an abscess. There is no evidence of intra-articular pathology and nothing to suggest osteomyelitis.
[2017-12-03] MEDS: Gabapentin 600 MG TAB PO (13:13)
[2017-12-03 13:20] VITALS: TEMP 39.1
[2017-12-03] MEDS: Acetaminophen 500 MG TAB 1000 MG PO (13:20)
[2017-12-03] MEDS: Omnipaque 350 MG/ML 50 ML BTL IJ (14:26)
[2017-12-03] MEDS: Breeza Beverage 473 ML BTL PO (14:26)
[2017-12-03] MEDS: Omnipaque 350 MG/ML 100 ML BTL IJ (14:27)
[2017-12-03 14:40] VITALS: TEMP 38.3
--- NOTE | 2017-12-03 15:12 | PDOC.CMPRO ---
- If Service Date Differs Date of service: 12/03/17 Time of Service: 15:12 Care Management Progress Note S/O: Denisse is lying in bed when this editorial writer visits this morning. She is pleasant throughout interaction. Team huddle held this afternoon to discuss direction of care, as well as behavioral health plan for Denisse. CM attempted to meet with Denisse again this afternoon to discuss Behavioral Health Plan, however she was in radiology for a CT. CM to review Behavioral Health Plan with Denisse when she is available to discuss the establishment of the plan, and to gain Denisse's input. Anticipate Denisse will require 6 weeks of IV antibiotics, awaiting further studies at this time. A: 32 y/o female admitted 11/26/17 for Sepsis. P: Denisse will return home with no anticipated services once medically cleared per MD. She will follow up with PCP and plan of care as prescribed. Denisse's boyfriend, Carlos will transport via private vehicle.
--- NOTE | 2017-12-03 15:15 | CMPROGNOTE_ITS ---
- If Service Date Differs Date of service: 12/03/17 Time of Service: 15:12 Care Management Progress Note S/O: Denisse is lying in bed when this contract technical writer visits this morning. She is pleasant throughout interaction. Team huddle held this afternoon to discuss direction of care, as well as behavioral health plan for Denisse. CM attempted to meet with Denisse again this afternoon to discuss Behavioral Health Plan, however she was in radiology for a CT. CM to review Behavioral Health Plan with Denisse when she is available to discuss the establishment of the plan, and to gain Denisse's input. Anticipate Denisse will require 6 weeks of IV antibiotics, awaiting further studies at this time. A: 32 y/o female admitted 11/26/17 for Sepsis. P: Denisse will return home with no anticipated services once medically cleared per MD. She will follow up with PCP and plan of care as prescribed. Denisse's boyfriend, Carlos will transport via private vehicle.
--- NOTE | 2017-12-03 17:18 | PDOC.ANES ---
Date of service: 12/03/17 Time of Service: 17:18 Anesthesia Note Report Anesthesia Note: Was called to obtain vascular access needed for IV antibiotics. On entering room she stated she does not want another IV and that I can leave. On re-questioning she restated that she does not want another IV. IV was not placed due to patient refusal.
--- NOTE | 2017-12-03 17:34 | PDOC.CMPRO ---
- If Service Date Differs Date of service: 12/03/17 Time of Service: 17:35 Care Management Progress Note CM met with Denisse to review behavioral health plan/contract and discuss changes or request to be made. Denisse began crying and screaming that she was leaving AMA. CM attempted to deescalated patient and educate her on risk of leaving against medical advice. She states that she has been clean and sober for a year and that she is humiliated and hurt that CM is presenting her with a behavior plan. CM explained to patient that behavioral plan is a means to engage her in her care plan and goals.She states that she does not agree with any of the behavioral plan and crumples it up. She states to CM that boyfriend has been spending the night and she is embarrassed of her amputation. She refuses to have her door open which was included in the plan. CM again redirected Denisse and provided reflection on her goals including treatment for infection and risk of is she was to leave AMA. Denisse states she will receive care but it will not be here at [facility]. CM encouraged Denisse to stay and continue to receive antibiotic therapy as recommended. Denisse does not have IV access at this time, while CM is with patient she refuses IV start by anaesthesia. CM met with providers and reviewed the above. At this time providers states that Denisse is competent to make her own decisions related to her health care. CCRN notified of patient wanting to leave AMA. Denisse contacted her boyfriend Carlos and demanded he pick her up at [facility].
--- NOTE | 2017-12-03 17:55 | NUR.NOTE ---
Nursing Note: This RN returned to the nurses station to find this patient standing at the desk with all of her belongings. This patient was crying and stating that she was leaving. This RN, NINA Hay and Annie Thomas, Nurse Transfer Station Operator explained the risks of leaving but the patient stated her mind was made up. The patient signed her AMA form and left [id number]
--- NOTE | 2017-12-03 17:58 | CMPROGNOTE_ITS ---
- If Service Date Differs Date of service: 12/03/17 Time of Service: 17:35 Care Management Progress Note CM met with Denisse to review behavioral health plan/contract and discuss changes or request to be made. Denisse began crying and screaming that she was leaving AMA. CM attempted to deescalated patient and educate her on risk of leaving against medical advice. She states that she has been clean and sober for a year and that she is humiliated and hurt that CM is presenting her with a behavior plan. CM explained to patient that behavioral plan is a means to engage her in her care plan and goals.She states that she does not agree with any of the behavioral plan and crumples it up. She states to CM that boyfriend has been spending the night and she is embarrassed of her amputation. She refuses to have her door open which was included in the plan. CM again redirected Denisse and provided reflection on her goals including treatment for infection and risk of is she was to leave AMA. Denisse states she will receive care but it will not be here at [facility]. CM encouraged Denisse to stay and continue to receive antibiotic therapy as recommended. Denisse does not have IV access at this time, while CM is with patient she refuses IV start by anaesthesia. CM met with providers and reviewed the above. At this time providers states that Denisse is competent to make her own decisions related to her health care. CCRN notified of patient wanting to leave AMA. Denisse contacted her boyfriend Carlos and demanded he pick her up at [facility].
== END 2017-12-03 17:53 | disposition left against medical advice (07) | DRG 557 ==
LOC: ER 17:16 → ICU 11-27 08:37 → MS 11-28 22:30 → ICU 12-21 13:35
PROVIDERS: Internal Medicine Cardiovascular Disease; Nurse Anesthetist, Certified Registered; Orthopaedic Surgery; Admitting Provider Internal Medicine; Emergency Provider Emergency Medicine; Visit Provider Internal Medicine
PROC: 0M9N3ZX Drainage of Right Knee Bursa and Ligament, Percutaneous Approach, Diagnostic (ICD-10-PCS; CPT 29870; principal; 2017-11-27 09:15)
PROC: B24BZZ4 Ultrasonography of Heart with Aorta, Transesophageal (ICD-10-PCS; CPT 93312; principal; 2017-12-02 09:30)
DX: M71.161 Other infective bursitis, right knee (principal); I33.0 Acute and subacute infective endocarditis; F11.20 Opioid dependence, uncomplicated; R50.9 Fever, unspecified; Z53.21 Procedure and treatment not carried out due to patient leaving prior to being seen by health care provider; F19.11 Other psychoactive substance abuse, in remission; F17.210 Nicotine dependence, cigarettes, uncomplicated; Z89.511 Acquired absence of right leg below knee; S80.211A Abrasion, right knee, initial encounter; X58.XXXA Exposure to other specified factors, initial encounter; I34.0 Nonrheumatic mitral (valve) insufficiency; Z86.19 Personal history of other infectious and parasitic diseases; B96.1 Klebsiella pneumoniae [K. pneumoniae] as the cause of diseases classified elsewhere; B95.2 Enterococcus as the cause of diseases classified elsewhere; B95.61 Methicillin susceptible Staphylococcus aureus infection as the cause of diseases classified elsewhere; Z16.23 Resistance to quinolones and fluoroquinolones; Z16.29 Resistance to other single specified antibiotic; T80.89XA Other complications following infusion, transfusion and therapeutic injection, initial encounter; Y71.8 Miscellaneous cardiovascular devices associated with adverse incidents, not elsewhere classified; Y92.230 Patient room in hospital as the place of occurrence of the external cause; Z76.5 Malingerer [conscious simulation]; G47.00 Insomnia, unspecified
CPT/HCPCS: 20610; 36415; 36416; 36569; 73721; 74177; 76942; 80048; 80053; 80307; 85652; 87040; 87077; 96361; 96365; 96366; 96368; 96375; 96376; 99223; 99232; 99233; 99285; J1650; NC; 71260; 73560; 80202; 81025; 82565; 83605; 83735; 85025; 86140; 87070; 87186; 87205; 89051; 89060; 93306; 93312; 93320; 93325; J0131; J1100; J1885; J2060; J2250; J2270; J2405; J2700; J3490; Q9967

== ENCOUNTER 2017-12-07 12:12 | Emergency (ER) | payer MEDICAID, SELFPAY ==
[2017-12-07 12:29] VITALS: BP 130/64; PULSE 78; RESP 16; TEMP 36.6; O2SAT 100
--- NOTE | 2017-12-07 12:53 | DI.US_ITS ---
SYMPTOMS/DIAGNOSIS: PALPABLE PAINFUL CORD DUPLEX VENOUS ULTRASOUND, RIGHT UPPER EXTREMITY: Duplex evaluation of deep venous system of the right upper extremity was performed according to the usual protocol. Note is made of thrombus in basilic and cephalic veins, thrombus corresponds to palpable abnormalities in this patient. CONCLUSION: Findings consistent with marked superficial venous thrombus involving basilic and cephalic veins. No DVT or proximal thrombus identified in axillary or subclavian veins.
--- NOTE | 2017-12-07 12:57 | W.ED.GENAD ---
Discharge Plan Disposition Patient Disposition: HOME Condition: Fair Discharge Details Chief Complaint: Vascular Clinical Impression: Superficial thrombophlebitis Primary Care Provider: Devi Alex ED Provider: Joyce Cornell Home Meds and New Rx's Prescriptions: New apixaban [Eliquis] 5 mg tablet 10 mg PO BID Qty: 14 RF: 0 Continue gabapentin 600 MG tablet PO TID RF: 0 methylphenidate HCl 20 MG tablet 20 mg PO TID RF: 0 buprenorphine-naloxone [Suboxone] 1 EACH film 2 film Sublingual DAILY RF: 0 duloxetine 60 mg Capsule,Delayed Release(Dr/Ec) 60 mg PO DAILY RF: 0 etonogestrel [Nexplanon] 68 MG implant 1 ea Intradermal DIRECTED RF: 0 escitalopram oxalate [Lexapro] 20 MG tablet 20 g PO DAILY RF: 0 acetaminophen [Tylenol Extra Strength] 500 MG tablet 1,000 mg PO Q6H PRN (Reason: Pain) Qty: 20 RF: 0 Discontinued ibuprofen 600 MG tablet 600 mg PO Q6H PRN (Reason: Pain) Qty: 16 RF: 0 Discharge Instructions Instructions: Apixaban (By mouth), Superficial Thrombophlebitis (ED) Additional Instructions: Encourage hydration. Please take Eliquis as prescribed. For the first week, please take 2 pills twice daily. After that you may take 1 pill twice daily. Please keep your appointment tomorrow with primary care and discuss her current issue as well as the discharge recommendations. Please follow-up with orthopedics regarding your ongoing knee pain history of infection. If you develop new or worsening symptoms please seek care urgently once again. Referrals: Devi Alex, LILIANE [Primary Care Provider] - Discharge Data Discharge Date/Time-TO BE ENTERED AT DEPARTURE: 12/07/17 14:54 Medical Decision Making Patient presents today with chief complaint of right arm pain. Patient was seen here and treated for sepsis, thought to be stemming from an orthopedic source, last week. Patient does not wish to discuss this issue at this time. Is not interested in readmission. Wants to address the discomfort has been having up her arm. Patient removed her PICC line herself prior to leaving [facility]. Since that time, she is reported increasing discomfort. On exam, there is a palpable cord running in the medial aspect of her upper arm. No signs of infection, no erythema, warmth or drainage. Patient is afebrile reports she has been afebrile at home although this report changes. She reported to nursing staff that she had low-grade temps at home and reported to myself that she has been afebrile. As the patient removed the PICC line herself, will obtain chest x-ray to ensure no retained fragments and obtain an ultrasound to evaluate for possible clot We are contacted by radiologist. Advised that the chest x-ray is significant for a left lung scarring which he associates with findings he was noted previously when she had multiple pulmonary emboli. Advises no acute cardiopulmonary process and does not note retained foreign body. The palpable area of the right upper arm is consistent with a thrombosed superficial vein over 5 cm in length. Discussed findings with the patient. Given the size of the clot, although this is noted to be superficial, up-to-date recommends anticoagulation. I did discuss this with the patient. We discussed the risks/benefits of anticoagulation in depth. I advised that she not take any anti-inflammatories while taking this medication. We also discussed activities that she should avoid. Patient has an appointment tomorrow with her primary care. She will begun on Eliquis today, first dose and was given here. She was given strict return precautions. I did advise that if at any time she would like to come back for reevaluation of her recent infection she may do so. I did advise that she follow-up with Dr. Flores as she typically sees him for her chronic knee pain and associated infection. All of her questions and concerns were addressed and she is in agreement with this plan HPI General Mode of arrival: ambulatory (patient has right BKA, uses crutches). Date/Time Provider Initiated Documentation: 12/07/17 12:17. Limitations to Documentation: no limitations. Information obtained by: patient. HPI Narrative: Patient is a 32-year-old female presenting today with chief complaint of right arm pain. Patient left AMA from inpatient status where she was being treated for sepsis 4 days ago. She reports that prior to leaving the department AGAINST MEDICAL ADVICE, she pulled out her own PICC line. States that prior to self extracting the PICC line, she had been having discomfort in this area. Had PICC line on the contralateral side of the place and was awaiting for the father someone to be removed. She remove this herself and left the department. Did not have any imaging. Patient reports that since that time she has developed a palpable hard area that runs on the medial aspect of the right upper arm. Patient is right-hand dominant. She denies any altered sensation in the right hand. She denies any recent trauma. States that she has had low-grade fevers. On the last day of her visit here, patient was continuing to spike fevers despite being on IV vancomycin. She denies any chest pain or shortness of breath. Reports that she is otherwise feeling improved. Related Data Home Medications Medication Instructions Recorded Confirmed etonogestrel [Nexplanon] 1 ea INTRADERMAL DIRECTED 10/30/16 04/21/17 escitalopram oxalate [Lexapro] 20 g PO DAILY 11/18/16 12/07/17 buprenorphine-naloxone [Suboxone] 2 film SUBLINGUAL DAILY 03/23/17 12/07/17 gabapentin 0 mg PO TID 03/23/17 12/07/17 methylphenidate HCl 20 mg PO TID 03/23/17 12/07/17 acetaminophen [Tylenol Extra 1,000 mg PO Q6H PRN #20 tab-cap 04/21/17 12/07/17 Strength] duloxetine 60 mg PO DAILY 11/28/17 12/07/17 apixaban [Eliquis] 10 mg PO BID #14 tab 12/07/17 Previous Rx's Medication Instructions Recorded acetaminophen [Tylenol Extra 1,000 mg PO Q6H PRN #20 tab-cap 04/21/17 Strength] apixaban [Eliquis] 10 mg PO BID #14 tab 12/07/17 Allergies Allergy/AdvReac Type Severity Reaction Status Date / Time bupropion HCl AdvReac Intermediate Contraindic Unverified 12/07/17 12:33 [From Wellbutrin SR] ated General Stated Complaint: Cellulitis CELESTE: 3 Review of Systems Constitutional Reports as per HPI Cardiovascular Reports as per HPI, Denies chest pain, Denies chest pain at rest, Denies dyspnea and Denies dyspnea on exertion Respiratory Denies cough, Denies dyspnea, Denies dyspnea on exertion, Denies stridor and Denies wheezing Gastrointestinal Denies change in bowel habits, Denies nausea and Denies vomiting Musculoskeletal Reports as per HPI Integumentary/Breasts Denies rash, Denies unusual bruising and Reports wounds (patient shows 2 puncture wounds to the right medial upper arm with associated ecchymosis) Neurologic Reports as per HPI Allergic/Immunologic Denies wheezing Exam Const General: cooperative, healthy appearing, comfortable, no acute distress, well developed and well groomed Nutritional Appearance: average body habitus and well nourished Orientation: alert and awake Eyes General: appearance normal, both eyes and all related structures Resp Effort & Inspection: normal respiratory effort, able to speak in complete sentences and no respiratory distress Auscultation: clear to auscultation bilaterally, no rales, no rhonchi and no wheezes Cardio Rate: regular rate Rhythm: regular rhythm Heart Sounds: S1 normal, S2 normal and no murmurs Skin General skin exam: ecchymosis (patient has multiple areas of ecchymosis over the right upper arm. ), no erythema, no excoriation(s), no fluctuance and induration (patient has palpable cord of induration running from just inferior to the right axilla to the elbow flexor surface, feels consistent with superficial thrombus. No superficial erythema, no warmth) Trauma: puncture (2 areas of puncture medial right upper arm, she reports this is from two PICC line placements while inpatient last week. Appear to be healing well with no surrounding erythema, warmth or drainage.) Neuro General: alert and awake Cognition: normal cognition Speech: speech normal Gait: normal gait Motor: strength 5/5 throughout (5/5 driller's offsider strength) Sensory Exam: no sensory deficits noted Extrem General: abnormal to inspection (as above, plapable area of induration concerning for thrombus. Full ROM. 2+ distal pulses), full ROM and normal capillary refill Psych Appearance: grossly normal and well kempt Mental Status: mental status grossly normal Speech and Movement: speech and movement normal Course Vital Signs Temperature 36.6 C 12/07/17 12:29 Pulse 78 12/07/17 12:29 Respiratory Rate 16 12/07/17 12:29 Blood Pressure 130/64 12/07/17 12:29 Pulse Oximetry 100 12/07/17 12:29 Temperature 36.6 C 12/07/17 12:29 Temperature Source Skin 12/07/17 12:29 Pulse 78 12/07/17 12:29 Respiratory Rate 16 12/07/17 12:29 Respiratory Effort Non-Labored 12/07/17 12:44 Respiratory Depth Normal 10/01/18 12:44 Respiratory Pattern Normal 12/07/17 12:44 Blood Pressure 130/64 12/07/17 12:29 Pulse Oximetry 100 12/07/17 12:29 Oxygen Delivery Method Room Air 12/07/17 12:29 Oxygen Flow Rate 0 12/07/17 12:29 Pain Level 10 12/07/17 12:44
--- NOTE | 2017-12-07 14:01 | DI.RAD_ITS ---
SYMPTOMS/DIAGNOSIS: PATIENT PULLED OUT HER PICC LINE, ? RETAINED FRAGMENT PA AND LATERAL CHEST: The heart is not enlarged. Lungs are generally clear except for minimal streaky radiodensities in the left lung apex. No pleural effusions seen. CONCLUSION: Minimal nonspecific, predominantly linear radiodensities in left lung apex. No gross consolidation identified.
[2017-12-07] MEDS: Apixaban 5 MG TAB 10 MG PO (14:58)
--- NOTE | 2017-12-08 15:54 | PDOC.ERCMPRO ---
Care Management Progress Note 12/08/17-Pt was seen 12/07/17 CHARLIE Henao for Superficial Thrombophlebitis of the Right arm. CM f/u with Pt to ensure she filled her Eliquis RX. Pt stated she dis not but, was on her way to do so now and that while in the ED with the first dose her arm had already started feeling better. CM expressed the importance of this med to Pt. Inpt NORMAN Rizvi was contacted by Pt who had requested faxes to be sent to her PCP, Berenice Whitley's at [facility] in [place], [place]. Inpt and ED reports have been faxed. Access has updated Pt's cell phone and PCP name, practice address and phone.
--- NOTE | 2017-12-08 16:10 | CMPROGNOTE_ITS ---
Care Management Progress Note 12/08/17-Pt was seen 12/07/17 CHARLIE Henao for Superficial Thrombophlebitis of the Right arm. CM f/u with Pt to ensure she filled her Eliquis RX. Pt stated she dis not but, was on her way to do so now and that while in the ED with the first dose her arm had already started feeling better. CM expressed the importance of this med to Pt. Inpt NORMAN Rizvi was contacted by Pt who had requested faxes to be sent to her PCP, Berenice Whitley's at [facility] in [place], [place]. Inpt and ED reports have been faxed. Access has updated Pt' s cell phone and PCP name, practice address and phone.
== END 2017-12-07 14:54 | disposition home or self-care (01) ==
PROVIDERS: Emergency Provider Physician Assistant
DX: I80.8 Phlebitis and thrombophlebitis of other sites (principal); M25.561 Pain in right knee; Z79.01 Long term (current) use of anticoagulants
CPT/HCPCS: 99285; 71046; 93971; 99284; E0114

== ENCOUNTER 2018-05-11 10:03 | Outpatient (CLI) | payer MEDICAID, SELFPAY ==
[2018-05-11 10:43] LABS: HCT 33.6 % (36.0-46.0); HGB 11.3 g/dL (12.0-15.5); Mean Corp. HGB Concentration 33.6 g/dL (32.0-36.0); Mean Corpuscular Volume 86.4 fL (80-95); Mean Platelet Volume 9.1 fL (8.0-11.0); Platelet Count 224 x1000/uL (130-400); RBC 3.89 m/cumm (4.00-5.20); RBC Distribution Width 15.1 % (11.7-14.6); White Blood Cell Count 6.17 k/cumm (4.4-10.8)
[2018-05-11 11:38] LABS: ALT 39 U/L (12-78); AST 19 U/L (15-37); Alkaline Phosphatase 108 U/L (46-116); Anion Gap 8.1 mmol/L (3-11); BUN 6 mg/dL (7-18); Bilirubin, Total 0.4 mg/dL (0.2-1.0); CO2 28.9 mmol/L (21.0-32.0); Calcium 8.5 mg/dL (8.5-10.1); Chloride 101 mmol/L (98-107); Cholesterol 125 mg/dL (50-200); Glucose 130 mg/dL (70-100); HDL Cholesterol 45 mg/dL (40-60); LDL CHOLESTEROL 68 mg/dL (<100); Potassium 3.8 mmol/L (3.5-5.1); Sodium 138 mmol/L (136-145); Total Protein 6.8 g/dL (6.4-8.2); Triglyceride 55 mg/dL (30-150)
[2018-05-12 10:37] LABS: HIV-1/2 Ag & Ab Screen Negative (NEGAT)
[2018-05-12 15:17] LABS: HCV RNA Detection Quantitative Undetected IU/mL (UNDECT)
== END 2018-05-11 10:23 ==
PROVIDERS: Visit Provider Nurse Practitioner Family
DX: Z13.0 Encounter for screening for diseases of the blood and blood-forming organs and certain disorders involving the immune mechanism (principal); Z13.228 Encounter for screening for other metabolic disorders; Z13.220 Encounter for screening for lipoid disorders; Z11.59 Encounter for screening for other viral diseases; Z11.4 Encounter for screening for human immunodeficiency virus [HIV]; Z00.00 Encounter for general adult medical examination without abnormal findings
CPT/HCPCS: 36415; 80053; 80061; 83721; 85027; 86803; 87389; 87522

== ENCOUNTER 2018-06-14 09:30 | Emergency (ER) | payer MEDICAID, SELFPAY ==
[2018-06-14 09:32] VITALS: BP 138/86; PULSE 110; TEMP 36.9; O2SAT 97
--- NOTE | 2018-06-14 10:01 | ED.GENADUL_ITS ---
Discharge Plan Disposition Patient Disposition: HOME Condition: Stable Discharge Details Chief Complaint: Cellulitis Clinical Impression: Cellulitis of face Primary Care Provider: Ivonne Hampton ED Provider: Lakia Florian Home Meds and New Rx's Prescriptions: New doxycycline hyclate 100 mg tablet 100 mg PO BID 10 Days Qty: 19 RF: 0 Continued gabapentin 600 MG tablet PO TID RF: 0 methylphenidate HCl 20 MG tablet 20 mg PO TID RF: 0 buprenorphine-naloxone [Suboxone] 1 EACH film 2 film Sublingual DAILY RF: 0 duloxetine 60 mg Capsule,Delayed Release(Dr/Ec) 60 mg PO DAILY RF: 0 Nexplanon 68 MG implant 1 ea Intradermal DIRECTED RF: 0 escitalopram oxalate [Lexapro] 20 MG tablet 20 g PO DAILY RF: 0 acetaminophen [Tylenol Extra Strength] 500 MG tablet 1,000 mg PO Q6H PRN (Reason: Pain) Qty: 20 RF: 0 Discharge Instructions Instructions: Cellulitis (ED) Additional Instructions: Please return immediately to the emergency department if you develop any new or worsening symptoms or if you become otherwise concerned it is extremely important that you attend your scheduled appointment with Ivonne Hampton tomorrow at 9:45. 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 On exam patient is well and nontoxic appearing. Tenderness of the nose extending to the left infraorbital area with painful extraocular movements of the left. Exam/history is not consistent with meningitis, infection involving airway, sepsis. Concern for cellulitis with possible extension beyond nose. Plan for screening labs, CT facial bones with c ontrast, venous fluid hydration, IV Toradol. Patient reports pain improved after Toradol. Dr. Bello, CT face shows mild left infraorbital edema without signs of abscess or other infection. Plan to treat for cellulitis with doxycycline. Care management involved for follow-up appointment, appointment scheduled for 9: 45 tomorrow a.m. for recheck. Patient also has appointment with PCP on 06/17, which she was encouraged to attend as well. Prior to discharge I had a lengthy discussion with the patient regarding return to emergency department precautions, home care, and importance of outpatient follow-up tomorrow and on 06/17. Patient was discharged with clear plan for follow-up. Patient verbalized understanding the plan was amenable. All questions were answered. Medical Records Medical records reviewed: Yes I reviewed the patient's medical records. Imaging Data Radiologic Study: Attestation: I personally reviewed and interpreted this imaging study as follows: Lab Data Lab results reviewed: Yes I reviewed the patient's lab results. 06/14/18 10:25 Blood Blood Culture - Pending 06/14/18 09:49 Blood Blood Culture - Pending Laboratory Tests Range/Units 06/14/18 06/14/18 06/14/18 10:25 10:25 10:25 WBC (4.4-10.8) k/cumm 8.64 RBC (4.00-5.20) m/cumm 4.74 Hgb (12.0-15.5) g/dL 13.7 Hct (36.0-46.0) % 41.2 MCV (80-95) fL 86.9 MCH (27.0-33.0) pg 28.9 MCHC (32.0-36.0) g/dL 33.3 RDW (11.7-14.6) % 14.1 Plt Count (130-400) x1000/uL 280 MPV (8.0-11.0) fL 9.1 Immature Gran % 0.1 Neutrophils % 65.0 Lymphocytes % 25.3 Monocytes % 5.8 Eosinophils % 3.6 Basophils % 0.2 Absolute Neutrophils (1.2-6.7) k/cumm 5.61 Absolute Lymphocytes (1.2-3.4) k/cumm 2.19 Absolute Monocytes (0.11-0.7) k/cumm 0.50 Absolute Eosinophils (0.0-0.7) k/cumm 0.31 Absolute Basophils (0.0-0.2) k/cumm 0.02 Sodium (136-145) mmol/L 136 Potassium (3.5-5.1) mmol/L 4.3 Chloride (98-107) mmol/L 101 Carbon Dioxide (21.0-32.0) mmol/L 26.1 Anion Gap (3-11) mmol/L 8.9 BUN (7-18) mg/dL 7 Creatinine (0.55-1.02) mg/dL 0.59 Estimated GFR/1.73 m2 (mL/min/1.73m2) >= 60.00 Glucose (70-100) mg/dL 119 H Lactate (0.6-1.4) mmol/l 1.1 Calcium (8.5-10.1) mg/dL 9.1 Total Bilirubin (0.2-1.0) mg/dL 0.3 AST (15-37) U/L 15 ALT (12-78) U/L 15 Alkaline Phosphatase (46-116) U/L 114 Total Protein (6.4-8.2) g/dL 8.2 Albumin (3.4-5.0) g/dL 3.7 HPI General Mode of arrival: ambulatory . Date/Time Provider Initiated Documentation: 06/14/18 09:32 . Limitations to Documentation: no limitations . Information obtained by: patient, RN notes reviewed and old records reviewed . HPI Narrative: Denisse Mcdermott is a 32-year-old woman with history of IV drug abuse in the past now on Suboxone, hepatitis C, cardiomyopathy, right BKA secondary to osteomyelitis presenting to the emergency department with infection of her nose. Patient reports that 2 days ago she noticed a pimple on the left side of her nose that she popped. She has had progressive redness of the outside of her nose since that time, along with worsening pain to her nose and her face. Patient reports that she came to the emergency department because pain has now extended beyond her nose into the area below her left eye. She also has significant pain on the inside of her left nare. She has had chills but no fever. No vomiting or diarrhea. No other pain. No other rash. Patient reports that she is currently on Suboxone and not using IV drugs. No other recent illness. No nasal discharge. Related Data Home Medications Medication Instructions Recorded Confirmed Nexplanon 1 ea INTRADERMAL DIRECTED 10/30/16 06/14/18 escitalopram oxalate [Lexapro] 20 g PO DAILY 11/18/16 06/14/18 buprenorphine-naloxone [Suboxone] 2 film SUBLINGUAL DAILY 03/23/17 06/14/18 gabapentin 0 mg PO TID 03/23/17 06/14/18 methylphenidate HCl 20 mg PO TID 03/23/17 06/14/18 acetaminophen [Tylenol Extra 1,000 mg PO Q6H PRN #20 tab-cap 04/21/17 06/14/18 Strength] duloxetine 60 mg PO DAILY 11/28/17 06/14/18 doxycycline hyclate 100 mg PO BID 10 Days #19 tab 06/14/18 Previous Rx's Medication Instructions Recorded acetaminophen [Tylenol Extra 1,000 mg PO Q6H PRN #20 tab-cap 04/21/17 Strength] doxycycline hyclate 100 mg PO BID 10 Days #19 tab 06/14/18 Allergies Allergy/AdvReac Type Severity Reaction Status Date / Time bupropion HCl AdvReac Intermediate Contraindic Unverified 06/14/18 09:38 [From Wellbutrin SR] ated General CELESTE: 3 Review of Systems Review of Systems Constitutional: denies fevers reports chills Eyes: denies eye pain ENT: Reports pain to her nose, left infraorbital area, denies dental pain, sore throat Cardiovascular: denies chest pain Respiratory: denies SOB, cough GI: denies abdominal pain, vomiting, diarrhea : denies flank pain MSK: denies back pain, neck pain, arthralgias, myalgias Skin: denies rash Neuro: denies headaches PFSH Medical History Hepatitis C infection (Chronic) Opioid dependence (Chronic) Anemia (Chronic) Anxiety (Chronic) BV (bacterial vaginosis) Depression HSV infection Hepatitis C antibody test positive Incarceration Long-term current use of methadone for opiate dependence Tobacco use Social History Smoking/Tobacco Use Status: Current every day Alcohol Intake: former Drug use: Current Sobriety Do you feel safe at home: Yes Do you feel safe in your relationship?: Yes Exam Narrative Exam Narrative: Constitutional: well and [id number], pleasant, conversing normally HENT: head atraumatic/normocephalic/normal inspection, mucous membranes moist, nose with erythema and edema over the cartilaginous area worse on the left, no intranasal lesion, no nasal discharge, exquisite tenderness over the nose extending into the left infraorbital area, mild edema without erythema of the left infraorbital area Eyes: conjunctiva normal, sclera normal, pupils 3mm b/l, extraocular movements intact but painful on the left Neck: no stridor, normal ROM, trachea midline Chest: normal inspection Resp: normal work of breathing, LCTAB Cardio: normal rate, normal rhythm, no murmur appreciated Skin: warm, dry, normal color, no rash Neuro: alert, not altered, grossly non-focal, normal tone, normal gait Psych: normal mood, normal affect, normal behavior
[2018-06-14 10:36] LABS: Lactate-non-spesis 1.1 mmol/l (0.6-1.4)
[2018-06-14 10:40] LABS: Abs Immature Grans 0.01 k/cumm (0.0-0.09); Absolute Basophil Count 0.02 k/cumm (0.0-0.2); Absolute Eosinophil Count 0.31 k/cumm (0.0-0.7); Absolute Lymphocyte Count 2.19 k/cumm (1.2-3.4); Absolute Neutrophil Count 5.61 k/cumm (1.2-6.7); Basophils % 0.2; Eosinophils % 3.6; HCT 41.2 % (36.0-46.0); HGB 13.7 g/dL (12.0-15.5); Immature Grans % 0.1; Lymphocytes % 25.3; Mean Corp. HGB Concentration 33.3 g/dL (32.0-36.0); Mean Corpuscular Hemoglobin 28.9 pg (27.0-33.0); Mean Corpuscular Volume 86.9 fL (80-95); Mean Platelet Volume 9.1 fL (8.0-11.0); Monocytes % 5.8; Platelet Count 280 x1000/uL (130-400); RBC 4.74 m/cumm (4.00-5.20); RBC Distribution Width 14.1 % (11.7-14.6); White Blood Cell Count 8.64 k/cumm (4.4-10.8)
[2018-06-14] MEDS: Normal Saline 1,000 ML 1000 ML IV (10:40)
[2018-06-14] MEDS: Ketorolac 15 MG/ML VIAL IVP (10:40)
[2018-06-14 11:01] LABS: ALT 15 U/L (12-78); AST 15 U/L (15-37); Albumin 3.7 g/dL (3.4-5.0); Alkaline Phosphatase 114 U/L (46-116); Anion Gap 8.9 mmol/L (3-11); BUN 7 mg/dL (7-18); Bilirubin, Total 0.3 mg/dL (0.2-1.0); CO2 26.1 mmol/L (21.0-32.0); CREATININE 0.59 mg/dL (0.55-1.02); Calcium 9.1 mg/dL (8.5-10.1); Chloride 101 mmol/L (98-107); Glucose 119 mg/dL (70-100); Potassium 4.3 mmol/L (3.5-5.1); Sodium 136 mmol/L (136-145); Total Protein 8.2 g/dL (6.4-8.2)
[2018-06-14] MEDS: Normal Saline Flush 10 ML SYR IVP (11:08)
--- NOTE | 2018-06-14 11:10 | DI.CT_ITS ---
SYMPTOMS/DIAGNOSIS: CELLULITIS OF NOSE, PAIN WITH EOM ON LT, TENDER TO PALPATION LT INFRAORBITAL AREA CT SCAN OF THE FACE: CT scan of the face was performed following the uneventful administration of intravenous contrast material. There is mild soft tissue swelling seen around the left periorbital region, over the left cheek and along the left nasal bone. No focal fluid collection is seen to suggest an abscess. This likely reflects cellulitis. The bones are intact. No evidence of an occult fracture or osteomyelitis. There is mild mucosal thickening seen in the right frontal sinus, the right sphenoid and a few ethmoid air cells. There is small mucous retention cysts or polyps in the maxillary sinuses bilaterally. No fluid levels are seen. The mastoid air cells are well pneumatized. The orbits and retro-orbital soft tissues are unremarkable. The nasal septum is unremarkable as are the ostiomeatal complexes and turbinates. IMPRESSION: Mild cellulitis over the left face and periorbital region. No focal fluid collection is seen to suggest an abscess. The findings were discussed with Dr. Lakia Florian of the emergency department on the date of the examination.
--- NOTE | 2018-06-14 11:54 | CMPROGNOTE_ITS ---
Care Management Progress Note 06/14-Dr. Karin Florian requested assistance with a PCP ([facility]) f/u tomorrow for cellulitis nose/face. Dr. Karin Florian has placed on doxycycline. Called [facility] and spoke with Mery. Mery scheduled Denisse for Thursday, 06/15 at [address] Karin Florian aware and she will place appt on d/c orders. Patient also given an appt card.
[2018-06-14] MEDS: Doxycycline Hyclate 100 MG CAP PO (11:57)
== END 2018-06-14 12:07 | disposition home or self-care (01) ==
PROVIDERS: Emergency Provider Student in an Organized Health Care Education/Training Program; PCP Nurse Practitioner Family
DX: L03.211 Cellulitis of face (principal)
CPT/HCPCS: 36415; 80053; 81025; 87040; 96361; 96374; 99284; 70487; 83605; 85025; J1885

== ENCOUNTER 2018-06-27 16:28 | Emergency (ER) | payer MEDICAID, SELFPAY ==
[2018-06-27 16:39] VITALS: BP 111/72; PULSE 92; RESP 16; TEMP 36.7; O2SAT 96
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
== END 2018-06-27 18:10 | disposition left against medical advice (07) ==
PROVIDERS: Emergency Provider Student in an Organized Health Care Education/Training Program; PCP Nurse Practitioner Family
DX: R07.89 Other chest pain (principal); Z53.29 Procedure and treatment not carried out because of patient's decision for other reasons
CPT/HCPCS: 99283

== ENCOUNTER 2018-07-16 10:24 | Outpatient (REF) | payer MEDICAID, SELFPAY ==
[2018-07-19 17:48] LABS: Fentanyl Interpretation Negative.; Fentanyl by LC-MS/MS Negative; Norfentanyl by LC-MS/MS Negative
[2018-07-20 05:30] LABS: Buprenorphine Negative; Norbuprenorphine Negative
[2018-07-20 06:08] LABS: Amphetamine Negative ng/mL (Cutoff: 25); Amphetamines Interpretation Negative.; MDA (Ecstasy Metabolite) Negative ng/mL (Cutoff: 25); MDMA (Ecstasy) Negative ng/mL (Cutoff: 25); Methamphetamine Negative ng/mL (Cutoff: 25); Phentermine Negative ng/mL (Cutoff: 25); Pseudoephedrine/Ephedrine Negative ng/mL (Cutoff: 25)
== END 2018-07-16 10:44 ==
LOC: NCHCN 10:24
PROVIDERS: PCP Nurse Practitioner Family; Visit Provider Nurse Practitioner Family
DX: F11.20 Opioid dependence, uncomplicated (principal); Z51.81 Encounter for therapeutic drug level monitoring
CPT/HCPCS: 80307; 80324; 80354

== ENCOUNTER 2018-08-26 20:19 | Emergency (ER) | payer MEDICAID, SELFPAY ==
[2018-08-26 20:29] VITALS: PULSE 100; RESP 16; TEMP 36.7; O2SAT 97
--- NOTE | 2018-08-26 20:58 | W.ED.GENAD ---
Discharge Plan Disposition Patient Disposition: HOME Condition: Stable Discharge Details Chief Complaint: Orthopedic Clinical Impression: Cellulitis Primary Care Provider: Ivonne Hampton ED Provider: Reymundo George Home Meds and New Rx's Prescriptions: New cephalexin [Keflex] 500 mg capsule 500 mg PO QID 7 Days Qty: 28 RF: 0 sulfamethoxazole-trimethoprim [Bactrim DS] 800-160 mg tablet 1 tab PO BID 7 Days Qty: 14 RF: 0 Continued gabapentin 600 MG tablet PO TID RF: 0 methylphenidate HCl 20 MG tablet 20 mg PO TID RF: 0 buprenorphine-naloxone [Suboxone] 1 EACH film 2 film Sublingual DAILY RF: 0 duloxetine 60 mg Capsule,Delayed Release(Dr/Ec) 60 mg PO DAILY RF: 0 Nexplanon 68 MG implant 1 ea Intradermal DIRECTED RF: 0 escitalopram oxalate [Lexapro] 20 MG tablet 20 g PO DAILY RF: 0 acetaminophen [Tylenol Extra Strength] 500 MG tablet 1,000 mg PO Q6H PRN (Reason: Pain) Qty: 20 RF: 0 Discharge Instructions Instructions: Cellulitis (ED) Additional Instructions: You should follow-up with your prosthetic provider for reassessment of your prosthesis as I feel that this may be causing some discomfort to your lower extremity. Please take the antibiotics in case this is an overlying cellulitis of the area as well. Return immediately to the emergency department for new or worsening symptoms, diffuse spread of redness to your lower extremity, inability to move your knee. Otherwise follow-up with your primary care provider for reassessment. It is recommended that you leave your prosthesis off for the next couple days and just use crutches for ambulation Referrals: Ivonne Hampton [Primary Care Provider] - (For reassessment if not improving) Discharge Data Discharge Date/Time-TO BE ENTERED AT DEPARTURE: 08/26/18 21:25 Medical Decision Making Patient presenting to the emergency department for chief complaint of right lower leg pain. 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 She states that her prosthesis has been bothering her and and rubbing which she has an appointment next week for adjustment but over the past week she has noted some increased redness, and irritation with use of her prosthesis. She states that when she removes this the pain and discomfort subsides but this evening pain was more significant. She does state that she hit her knee against a plastic chair also a week ago causing a small superficial abrasion to the knee. She states that the prosthesis has also been rubbing against this area causing discomfort. Physical exam shows full range of motion of the knee, redness to the lateral aspects and the stump of the knee along with some prepatellar swelling and mild erythema. Patient is otherwise stable, denies any chest pain or other symptoms, denies fever, is slightly anxious but otherwise unremarkable examination. Main concern of symptoms is due to prosthesis causing some irritation to the skin but also of consideration is mild infection. It is difficult to determine just since patient just removed prosthesis but given patient's history I do feel that antibiotics are warranted. I do not feel that labs are needed at this time given stable vital signs, patient stating that symptoms improved with prosthesis removed. These were considered and discussed with patient but patient states that she would prefer not to have labs drawn at this time. We did discuss then close return precautions which patient was agreeable and stated that she would return for any new or worsening symptoms. Patient was given crutches and told to leave the prosthesis off for the next couple days to see if this improves her symptoms otherwise patient placed on Keflex and Bactrim for concern of possible cellulitis. At this time I do not think that patient has infected joint as areas of erythema are very localized and not diffuse throughout the joint, joint has full range of motion, patient is afebrile, and patient not specifically complaining of joint pain as so much as pain to the lower portion of her leg. Return precautions were discussed. After discussion of diagnosis and plan of care patient is no further needs, questions, or concerns and states clear understanding to return to the emergency department for any worsening symptoms. HPI General Mode of arrival: wheelchair. Date/Time Provider Initiated Documentation: 08/26/18 20:25. Limitations to Documentation: no limitations. Information obtained by: patient and RN notes reviewed. History of Present Illness 33 year old F presents to the emergency department with the chief complaint of right leg pain, reddness , described as moderate, with intensity rated at 6. Quality is described as aching and sharp, and is localized to the right and lower extremity. Patient proximal. Patient started experiencing this week(s) (1) and it has been constant. other things that improve symptom(s), (Removing prosthesis) Other factors that worsen symptoms (Walking around on lower extremity prosthesis) . Patient notes no other symptoms.. Patient did receive the following treatments prior to arrival, none Related Data Home Medications Medication Instructions Recorded Confirmed Nexplanon 1 ea INTRADERMAL DIRECTED 10/30/16 08/26/18 escitalopram oxalate [Lexapro] 20 g PO DAILY 11/18/16 08/26/18 buprenorphine-naloxone [Suboxone] 2 film SUBLINGUAL DAILY 03/23/17 08/26/18 gabapentin 0 mg PO TID 03/23/17 08/26/18 methylphenidate HCl 20 mg PO TID 03/23/17 08/26/18 acetaminophen [Tylenol Extra 1,000 mg PO Q6H PRN #20 tab-cap 04/21/17 08/26/18 Strength] duloxetine 60 mg PO DAILY 11/28/17 08/26/18 cephalexin [Keflex] 500 mg PO QID 7 Days #28 cap 08/26/18 sulfamethoxazole-trimethoprim 1 tab PO BID 7 Days #14 tab 08/26/18 [Bactrim DS] Previous Rx's Medication Instructions Recorded acetaminophen [Tylenol Extra 1,000 mg PO Q6H PRN #20 tab-cap 04/21/17 Strength] cephalexin [Keflex] 500 mg PO QID 7 Days #28 cap 08/26/18 sulfamethoxazole-trimethoprim 1 tab PO BID 7 Days #14 tab 08/26/18 [Bactrim DS] Allergies Allergy/AdvReac Type Severity Reaction Status Date / Time bupropion HCl AdvReac Intermediate Contraindic Unverified 08/26/18 20:39 [From Wellbutrin SR] ated General Stated Complaint: Orthopedic CELESTE: 4 Review of Systems Constitutional Denies chills, Denies fever(s) and Denies malaise Cardiovascular Denies chest pain, Denies irregular heart rhythm, Denies palpitations and Denies dyspnea Respiratory Denies cough and Denies dyspnea Gastrointestinal Denies nausea and Denies vomiting Musculoskeletal Reports as per HPI, Reports joint swelling and Denies limited range of motion Integumentary/Breasts Reports as per HPI, Reports erythema and Reports wounds Endocrine Denies palpitations [facility] Medical History Hepatitis C infection (Chronic) Opioid dependence (Chronic) Anemia (Chronic) Anxiety (Chronic) BV (bacterial vaginosis) Depression HSV infection Hepatitis C antibody test positive Incarceration Long-term current use of methadone for opiate dependence Tobacco use Surgical History Amputation section (11/24/12) Family History Mother No problems noted. Father No problems noted. Brother No problems noted. Grandfather No problems noted. Grandfather No problems noted. Grandmother No problems noted. Grandmother No problems noted. Son No problems noted. Son No problems noted. Daughter No problems noted. Daughter No problems noted. Social History Smoking/Tobacco Use Status: Current every day Alcohol Intake: former Drug use: Current Sobriety Do you feel safe at home: Yes Do you feel safe in your relationship?: Yes Exam Const General: cooperative, comfortable, no acute distress and anxious Orientation: alert, awake and oriented x3 Resp Effort & Inspection: normal respiratory effort, able to speak in complete sentences and no respiratory distress Skin General skin exam: no rashes or lesions noted Extrem Right lower extremity: knee (Below the knee amputation is noted) Details: abnormal to inspection Details: erythematous (Pre-patella and proximal tib-fib), swelling Location: of the pre-patellar area and normal ROM; no lacerations Course Vital Signs Temperature 36.7 C 08/26/18 20:29 Pulse 100 H 08/26/18 20:29 Respiratory Rate 16 08/26/18 20:29 Pulse Oximetry 97 08/26/18 20:29 Temperature 36.7 C 08/26/18 20:29 Temperature Source Temporal Artery Scan 08/26/18 20:29 Pulse 100 H 08/26/18 20:29 Respiratory Rate 16 08/26/18 20:29 Respiratory Effort 08/26/18 20:29 Pulse Oximetry 97 08/26/18 20:29 Oxygen Delivery Method Room Air 08/26/18 20:29 Oxygen Flow Rate 0 08/26/18 20:29 Pain Level 7 08/26/18 20:38
--- NOTE | 2018-08-26 21:11 | ED.GENADUL_ITS ---
Discharge Plan Disposition Patient Disposition: HOME Condition: Stable Discharge Details Chief Complaint: Orthopedic Clinical Impression: Cellulitis Primary Care Provider: Ivonne Hampton ED Provider: Reymundo George Home Meds and New Rx's Prescriptions: New cephalexin [Keflex] 500 mg capsule 500 mg PO QID 7 Days Qty: 28 RF: 0 sulfamethoxazole-trimethoprim [Bactrim DS] 800-160 mg tablet 1 tab PO BID 7 Days Qty: 14 RF: 0 Continued gabapentin 600 MG tablet PO TID RF: 0 methylphenidate HCl 20 MG tablet 20 mg PO TID RF: 0 buprenorphine-naloxone [Suboxone] 1 EACH film 2 film Sublingual DAILY RF: 0 duloxetine 60 mg Capsule,Delayed Release(Dr/Ec) 60 mg PO DAILY RF: 0 Nexplanon 68 MG implant 1 ea Intradermal DIRECTED RF: 0 escitalopram oxalate [Lexapro] 20 MG tablet 20 g PO DAILY RF: 0 acetaminophen [Tylenol Extra Strength] 500 MG tablet 1,000 mg PO Q6H PRN (Reason: Pain) Qty: 20 RF: 0 Discharge Instructions Instructions: Cellulitis (ED) Additional Instructions: You should follow-up with your prosthetic provider for reassessment of your prosthesis as I feel that this may be causing some discomfort to your lower extremity. Please take the antibiotics in case this is an overlying cellulitis of the area as well. Return immediately to the emergency department for new or worsening symptoms, diffuse spread of redness to your lower extremity, inability to move your knee. Otherwise follow-up with your primary care provider for reassessment. It is recommended that you leave your prosthesis off for the next couple days and just use crutches for ambulation Referrals: Ivonne Hampton [Primary Care Provider] - (For reassessment if not improving) Discharge Data Discharge Date/Time-TO BE ENTERED AT DEPARTURE: 08/26/18 21:25 Medical Decision Making Patient presenting to the emergency department for chief complaint of right lower leg pain. 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 She states that her prosthesis has been bothering her and and rubbing which she has an appointment next week for adjustment but over the past week she has noted some increased redness, and irritation with use of her prosthesis. She states that when she removes this the pain and discomfort subsides but this evening pain was more significant. She does state that she hit her knee against a plastic chair also a week ago causing a small superficial abrasion to the knee. She states that the prosthesis has also been rubbing against this area causing discomfort. Physical exam shows full range of motion of the knee, redness to the lateral aspects and the stump of the knee along with some prepatellar swelling and mild erythema. Patient is otherwise stable, denies any chest pain or other symptoms, denies fever, is slightly anxious but otherwise unremarkable examination. Main concern of symptoms is due to prosthesis causing some irritation to the skin but also of consideration is mild infection. It is difficult to determine just since patient just removed prosthesis but given patient's history I do feel that antibiotics are warranted. I do not feel that labs are needed at this time given stable vital signs, patient stating that symptoms improved with prosthesis removed. These were considered and discussed with patient but patient states that she would prefer not to have labs drawn at this time. We did discuss then close return precautions which patient was agreeable and stated that she would return for any new or worsening symptoms. Patient was given crutches and told to leave the p rosthesis off for the next couple days to see if this improves her symptoms otherwise patient placed on Keflex and Bactrim for concern of possible cellulitis. At this time I do not think that patient has infected joint as areas of erythema are very localized and not diffuse throughout the joint, joint has full range of motion, patient is afebrile, and patient not specifically complaining of joint pain as so much as pain to the lower portion of her leg. Return precautions were discussed. After discussion of diagnosis and plan of care patient is no further needs, questions, or concerns and states clear understanding to return to the emergency department for any worsening symptoms. HPI General Mode of arrival: wheelchair . Date/Time Provider Initiated Documentation: 08/26/18 20:25 . Limitations to Documentation: no limitations . Information obtained by: patient and RN notes reviewed . History of Present Illness 33 year old F presents to the emergency department with the chief complaint of right leg pain, reddness , described as moderate, with intensity rated at 6. Quality is described as aching and sharp, and is localized to the right and lower extremity. Patient proximal. Patient started experiencing this week(s) (1) and it has been constant. other things that improve symptom(s), (Removing prosthesis) Other factors that worsen symptoms (Walking around on lower extremity prosthesis) . Patient notes no other symptoms.. Patient did receive the following treatments prior to arrival, none Related Data Home Medications Medication Instructions Recorded Confirmed Nexplanon 1 ea INTRADERMAL DIRECTED 10/30/16 08/26/18 escitalopram oxalate [Lexapro] 20 g PO DAILY 11/18/16 08/26/18 buprenorphine-naloxone [Suboxone] 2 film SUBLINGUAL DAILY 03/23/17 08/26/18 gabapentin 0 mg PO TID 03/23/17 08/26/18 methylphenidate HCl 20 mg PO TID 03/23/17 08/26/18 acetaminophen [Tylenol Extra 1,000 mg PO Q6H PRN #20 tab-cap 04/21/17 08/26/18 Strength] duloxetine 60 mg PO DAILY 11/28/17 08/26/18 cephalexin [Keflex] 500 mg PO QID 7 Days #28 cap 08/26/18 sulfamethoxazole-trimethoprim 1 tab PO BID 7 Days #14 tab 08/26/18 [Bactrim DS] Previous Rx's Medication Instructions Recorded acetaminophen [Tylenol Extra 1,000 mg PO Q6H PRN #20 tab-cap 04/21/17 Strength] cephalexin [Keflex] 500 mg PO QID 7 Days #28 cap 08/26/18 sulfamethoxazole-trimethoprim 1 tab PO BID 7 Days #14 tab 08/26/18 [Bactrim DS] Allergies Allergy/AdvReac Type Severity Reaction Status Date / Time bupropion HCl AdvReac Intermediate Contraindic Unverified 08/26/18 20:39 [From Wellbutrin SR] ated General Stated Complaint: Orthopedic CELESTE: 4 Review of Systems Constitutional Denies chills, Denies fever(s) and Denies malaise Cardiovascular Denies chest pain, Denies irregular heart rhythm, Denies palpitations and Denies dyspnea Respiratory Denies cough and Denies dyspnea Gastrointestinal Denies nausea and Denies vomiting Musculoskeletal Reports as per HPI, Reports joint swelling and Denies limited range of motion Integumentary/Breasts Reports as per HPI, Reports erythema and Reports wounds Endocrine Denies palpitations PFSH Medical History Hepatitis C infection (Chronic) Opioid dependence (Chronic) Anemia (Chronic) Anxiety (Chronic) BV (bacterial vaginosis) Depression HSV infection Hepatitis C antibody test positive Incarceration Long-term current use of methadone for opiate dependence Tobacco use Surgical History Amputation section (11/24/12) Family History Mother No problems noted. Father No problems noted. Brother No problems noted. Grandfather No problems noted. Grandfather No problems noted. Grandmother No problems noted. Grandmother No problems noted. Son No problems noted. Son No problems noted. Daughter No problems noted. Daughter No problems noted. Social History Smoking/Tobacco Use Status: Current every day Alcohol Intake: former Drug use: Current Sobriety Do you feel safe at home: Yes Do you feel safe in your relationship?: Yes Exam Const General: cooperative, comfortable, no acute distress and anxious Orientation: alert, awake and oriented x3 Resp Effort & Inspection: normal respiratory effort, able to speak in complete sentences and no respiratory distress Skin General skin exam: no rashes or lesions noted Extrem Right lower extremity: knee (Below the knee amputation is noted) Details: abn ormal to inspection Details: erythematous (Pre-patella and proximal tib-fib), swelling Location: of the pre-patellar area and normal ROM; no lacerations Course Vital Signs Temperature 36.7 C 08/26/18 20:29 Pulse 100 H 08/26/18 20:29 Respiratory Rate 16 08/26/18 20:29 Pulse Oximetry 97 08/26/18 20:29 Temperature 36.7 C 08/26/18 20:29 Temperature Source Temporal Artery Scan 08/26/18 20:29 Pulse 100 H 08/26/18 20:29 Respiratory Rate 16 08/26/18 20:29 Respiratory Effort 08/26/18 20:29 Pulse Oximetry 97 08/26/18 20:29 Oxygen Delivery Method Room Air 08/26/18 20:29 Oxygen Flow Rate 0 08/26/18 20:29 Pain Level 7 08/26/18 20:38
[2018-08-26] MEDS: Cephalexin 500 MG CAP PO (21:20)
[2018-08-26] MEDS: Sulfameth/Trimeth DS TAB 1 TAB PO (21:20)
[2018-08-26] MEDS: Acetaminophen 325 MG TAB 650 MG PO (21:20)
[2018-08-26] MEDS: Cephalexin 500 MG CAP 1000 MG PO (21:21)
== END 2018-08-26 21:25 | disposition home or self-care (01) ==
PROVIDERS: Emergency Provider Nurse Practitioner Family; PCP Nurse Practitioner Family
DX: L03.115 Cellulitis of right lower limb (principal)
CPT/HCPCS: 81025; 99283; E0114

== ENCOUNTER 2018-09-22 08:24 | Emergency (ER) | payer MEDICAID, SELFPAY ==
[2018-09-22 08:31] VITALS: BP 114/94; PULSE 71; RESP 16; TEMP 36.5; O2SAT 97
--- NOTE | 2018-09-22 08:43 | ED.GENADUL_ITS ---
Discharge Plan Disposition Patient Disposition: HOME Condition: Good Discharge Details Chief Complaint: EarProblem Clinical Impression: Otitis externa Primary Care Provider: Ivonne Hampton ED Provider: Reymundo George Home Meds and New Rx's Prescriptions: New Ciprodex 0.3-0.1 % drops,suspension 4 drp OT BID Qty: 7.5 RF: 0 Continued gabapentin 600 MG tablet 0 mg PO TID RF: 0 methylphenidate HCl 20 MG tablet 20 mg PO TID RF: 0 buprenorphine-naloxone [Suboxone] 1 EACH film 2 film Sublingual DAILY RF: 0 duloxetine 60 mg Capsule,Delayed Release(Dr/Ec) 60 mg PO DAILY RF: 0 Nexplanon 68 MG implant 1 ea Intradermal DIRECTED RF: 0 escitalopram oxalate [Lexapro] 20 MG tablet 20 g PO DAILY RF: 0 acetaminophen [Tylenol Extra Strength] 500 MG tablet 1,000 mg PO Q6H PRN (Reason: Pain) Qty: 20 RF: 0 Discharge Instructions Instructions: Otitis Externa (ED) Additional Instructions: You may continue to take [id number] pain medication such as Tylenol or ibuprofen as needed for discomfort along with your other prescribed medications. Please use eardrops for the next 7 days and feel free to return for any new or significant worsening of symptoms otherwise follow-up with your primary care provider as needed. Referrals: Ivonne Hampton [Primary Care Provider] - (As needed for reassessment) Medical Decision Making Patient presenting to the emergency department for chief complaint of right ear pain. Patient states that this is been going on for the past 3 days. Patient has been swimming recently. Patient denies any URI or other cold type symptoms, fever chills, any other complaints. Physical exam shows findings consistent with otitis externa of the right ear. There is no cerumen impaction and TM is able to be slightly visualized but not completely so I do not feel need for wicking material at this point. Patient placed up on Ciprodex. Return precautions discussed. After discussion of diagnosis and plan of care patient has no further needs, questions, or concerns and states clear understanding to return to the emergency department for any worsening symptoms. HPI General Mode of arrival: ambulatory . Date/Time Provider Initiated Documentation: 09/22/18 08:33 . Limitations to Documentation: no limitations . Information obtained by: RN notes reviewed . History of Present Illness 33 year old F presents to the emergency department with the chief complaint of Right ear pain, described as moderate, with intensity rated at 8. Quality is described as aching and sharp, and is localized to the right (ear). Patient started experiencing this day(s) (3) and it has been constant. No relieving factors improve symptom(s), No exacerbating factors reported . Patient notes no other symptoms.. Related Data Home Medications Medication Instructions Recorded Confirmed Nexplanon 1 ea INTRADERMAL DIRECTED 10/30/16 09/22/18 escitalopram oxalate [Lexapro] 20 g PO DAILY 11/18/16 09/22/18 buprenorphine-naloxone [Suboxone] 2 film SUBLINGUAL DAILY 03/23/17 09/22/18 gabapentin 0 mg PO TID 03/23/17 09/22/18 methylphenidate HCl 20 mg PO TID 03/23/17 09/22/18 acetaminophen [Tylenol Extra 1,000 mg PO Q6H PRN #20 tab-cap 04/21/17 09/22/18 Strength] duloxetine 60 mg PO DAILY 11/28/17 09/22/18 ciprofloxacin-dexamethasone 4 drp OT BID #7.5 ml 09/22/18 [Ciprodex] Previous Rx's Medication Instructions Recorded acetaminophen [Tylenol Extra 1,000 mg PO Q6H PRN #20 tab-cap 04/21/17 Strength] ciprofloxacin-dexamethasone 4 drp OT BID #7.5 ml 09/22/18 [Ciprodex] Allergies Allergy/AdvReac Type Severity Reaction Status Date / Time bupropion HCl AdvReac Intermediate Contraindic Unverified 09/22/18 08:34 [From Wellbutrin SR] ated General Stated Complaint: EarProblem CELESTE: 4 Review of Systems Constitutional Denies chills and Denies fever(s) Eyes Denies change in vision ENT Reports ear discharge, Reports otalgia, Denies nasal discharge and Denies nasal obstruction Respiratory Denies cough PFSH Medical History Anemia (Chronic) Anxiety (Chronic) BV (bacterial vaginosis) Depression Hepatitis C antibody test positive Hepatitis C infection (Chronic) HSV infection Incarceration Long-term current use of methadone for opiate dependence Opioid dependence (Chronic) Tobacco use Surgical History Amputation section (11/24/12) Family History Mother No problems noted. Father No problems noted. Brother No problems noted. Grandfather No problems noted. Grandfather No problems noted. Grandmother No problems noted. Grandmother No problems noted. Son No problems noted. Son No problems noted. Daughter No problems noted. Daughter No problems noted. Social History Smoking/Tobacco Use Status: Current every day Alcohol Intake: former Drug use: Current Sobriety Do you feel safe at home: Yes Do you feel safe in your relationship?: Yes Exam Const General: cooperative, comfortable and no acute distress Orientation: alert, awake and oriented x3 HENMT Head: normal to inspection Ears: TM normal on the left, mastoids normal, no periauricular adenopathy, EAC abnormal erythema, edema, EAC tenderness on the right and otic discharge purulent on the right and unable to visualize TM on the right (due to edema) Face and sinus: normal facial exam Resp Effort & Inspection: normal respiratory effort and able to speak in complete sentences Course Vital Signs Temperature 36.5 C 09/22/18 08:31 Pulse 71 09/22/18 08:31 Respiratory Rate 16 09/22/18 08:31 Blood Pressure 114/94 H 09/22/18 08:31 Pulse Oximetry 97 09/22/18 08:31 Temperature 36.5 C 09/22/18 08:31 Temperature Source Skin 09/22/18 08:31 Pulse 71 09/22/18 08:31 Respiratory Rate 16 09/22/18 08:31 Respiratory Effort Non-Labored 09/22/18 08:31 Blood Pressure 114/94 H 09/22/18 08:31 Blood Pressure Position Sitting 09/22/18 08:31 Pulse Oximetry 97 09/22/18 08:31 Oxygen Delivery Method Room Air 09/22/18 08:31 Oxygen Flow Rate 0 09/22/18 08:31 Pain Level 8 09/22/18 08:31
== END 2018-09-22 08:52 | disposition home or self-care (01) ==
PROVIDERS: Emergency Provider Nurse Practitioner Family; PCP Nurse Practitioner Family
DX: H60.501 Unspecified acute noninfective otitis externa, right ear (principal)
CPT/HCPCS: 99283

== ENCOUNTER 2018-10-12 16:39 | Outpatient (REF) | payer MEDICAID, SELFPAY ==
[2018-10-19 15:46] LABS: Methylphenidate NEGATIVE; Ritalinic Acid NEGATIVE
== END 2018-10-12 16:59 ==
LOC: NCHCN 16:39
PROVIDERS: PCP Nurse Practitioner Family; Visit Provider Nurse Practitioner Family
DX: Z51.81 Encounter for therapeutic drug level monitoring (principal); Z79.899 Other long term (current) drug therapy
CPT/HCPCS: 80360

== ENCOUNTER 2018-10-28 10:28 | Emergency (ER) | payer MEDICAID, SELFPAY ==
[2018-10-28 10:33] VITALS: BP 121/73; PULSE 84; RESP 14; TEMP 36.1; O2SAT 96
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
[2018-10-28] MEDS: Sulfameth/Trimeth DS TAB 1 TAB PO (11:06)
[2018-10-28] MEDS: Cephalexin 500 MG CAP PO (11:06)
[2018-10-28 11:14] VITALS: BP 121/73; PULSE 84; RESP 14; TEMP 36.1; O2SAT 96
--- NOTE | 2018-10-28 15:21 | NUR.NOTE ---
Spoke with Care Management Roxanna Rizvi, she will touch base with patient.Nursing Note:
== END 2018-10-28 11:14 | disposition home or self-care (01) ==
PROVIDERS: Emergency Provider Physician Assistant; PCP Nurse Practitioner Family
DX: S91.332A Puncture wound without foreign body, left foot, initial encounter (principal); L03.116 Cellulitis of left lower limb; W46.0XXA Contact with hypodermic needle, initial encounter; F11.20 Opioid dependence, uncomplicated
CPT/HCPCS: 99283

== ENCOUNTER 2018-11-25 09:03 | Emergency (ER) | payer MEDICAID, SELFPAY ==
[2018-11-25 09:06] VITALS: BP 143/79; PULSE 92; RESP 14; TEMP 36.7; O2SAT 97
--- NOTE | 2018-11-25 09:14 | DI.RAD_ITS ---
EXAM: XR WRIST LT COMPLETE INDICATION: Left WRIST/HAND PAIN AND SWELLING,S/P FALL COMPARISON: No exams were available for comparison TECHNIQUE: 2D digital imaging was performed. FINDINGS: Soft tissue swelling is demonstrated about the left wrist and proximal portion of the hand. There is no evidence of fracture or dislocation.
--- NOTE | 2018-11-25 09:15 | ED.GENADUL_ITS ---
Discharge Plan Disposition Patient Disposition: HOME Condition: Stable Discharge Details Chief Complaint: Orthopedic Clinical Impression: Left wrist sprain Primary Care Provider: Ivonne Hampton ED Provider: Joesph Pool Home Meds and New Rx's Prescriptions: Continued gabapentin 600 MG tablet 0 mg PO TID RF: 0 methylphenidate HCl 20 MG tablet 20 mg PO TID RF: 0 buprenorphine-naloxone [Suboxone] 1 EACH film 2 film Sublingual DAILY RF: 0 duloxetine 60 mg Capsule,Delayed Release(Dr/Ec) 60 mg PO DAILY RF: 0 Nexplanon 68 MG implant 1 ea Intradermal DIRECTED RF: 0 escitalopram oxalate [Lexapro] 20 MG tablet 20 g PO DAILY RF: 0 acetaminophen [Tylenol Extra Strength] 500 MG tablet 1,000 mg PO Q6H PRN (Reason: Pain) Qty: 20 RF: 0 No Action Ciprodex 0.3-0.1 % drops,suspension 4 drp OT BID Qty: 7.5 RF: 0 Discharge Instructions Instructions: Wrist Sprain (ED) Additional Instructions: Rest, ice, elevate to reduce pain and swelling. Wear splint for 7 to 10 days time. Return if you have increasing pain, develop a fever or redness overlying the joint, or any other acute concerns. Your x-ray did not show a fracture. Medical Decision Making 33 old female states she was horsing around with a friend last night and is had somewhat of a malfunctioning right below the knee prosthesis. This caused her to tumble down 5 stairs and strike her left wrist on the ground. She was able to sleep through the night, applied ice this morning. Now presents for evaluation of left wrist/hand pain and swelling. X-ray without underlying fracture. Will place in splint. Discussed with her home management. She says she has not been using illicit medications, there is no fever or warmth to the joint. Do not feel this represents osteomyelitis. Stable for outpatient management of contusion and strain. HPI General Mode of arrival: ambulatory . Date/Time Provider Initiated Documentation: 11/25/18 09:04 . Limitations to Documentation: no limitations . Information obtained by: patient . History of Present Illness 33 year old F presents to the emergency department with the chief complaint of Left wrist pain and swelling after fall last night, described as moderate, Quality is described as dull, and is localized to the left and upper extremity. Patient reports no radiation. Patient started experiencing this hour(s) and it has been constant. No relieving factors improve symptom(s), Movement worsens symptoms . Patient notes no other symptoms.; denies chest pain, fever/chills, headaches, syncope and weakness. Patient did receive the following treatments prior to arrival, none Related Data Home Medications Medication Instructions Recorded Confirmed Nexplanon 1 ea INTRADERMAL DIRECTED 10/30/16 11/25/18 escitalopram oxalate [Lexapro] 20 g PO DAILY 11/18/16 11/25/18 buprenorphine-naloxone [Suboxone] 2 film SUBLINGUAL DAILY 03/23/17 11/25/18 gabapentin 0 mg PO TID 03/23/17 11/25/18 methylphenidate HCl 20 mg PO TID 03/23/17 11/25/18 acetaminophen [Tylenol Extra 1,000 mg PO Q6H PRN #20 tab-cap 04/21/17 11/25/18 Strength] duloxetine 60 mg PO DAILY 11/28/17 11/25/18 Ciprodex 4 drp OT BID #7.5 ml 09/22/18 11/25/18 Previous Rx's Medication Instructions Recorded acetaminophen [Tylenol Extra 1,000 mg PO Q6H PRN #20 tab-cap 04/21/17 Strength] Ciprodex 4 drp OT BID #7.5 ml 09/22/18 Allergies Allergy/AdvReac Type Severity Reaction Status Date / Time bupropion HCl AdvReac Intermediate Contraindic Unverified 11/25/18 09:15 [From Wellbutrin SR] ated General Stated Complaint: Orthopedic CELESTE: 4 Review of Systems Review of Systems Narrative: 6 systems reviewed and otherwise negative. No numbness or tingling. States she has not been using IV drugs. [facility] Medical History Anemia (Chronic) Anxiety (Chronic) BV (bacterial vaginosis) Rx with Metronidazole vaginal gel. 04/19/15. Depression difficulty bonding with 2nd child. child removed from her custody. was on Wellbutrin but had sz and not on meds at this time. has appt with counselor 03/2015 Hepatitis C antibody test positive Hepatitis C infection (Chronic) HSV infection Hx of infant who one week after . ? HSV or H1N1 infection. Pt has been on prophylaxis with pregnancies. Incarceration violated probation with DUI infraction Long-term current use of methadone for opiate dependence weaning Opioid dependence (Chronic) Tobacco use Surgical History Amputation 12/23/16;[facility]; RIGHT BELOW THE KNEE section (11/24/12) PCD @ 35w. IUGR. NRFH. [id number]. [facility] [place]. 03/26/15 RCD. Pt arrived in labor and declined SUN. F. Jessica. Family History Mother No problems noted. Father No problems noted. Brother No problems noted. Grandfather No problems noted. Grandfather No problems noted. Grandmother No problems noted. Grandmother No problems noted. Son No problems noted. Son No problems noted. Daughter No problems noted. Daughter No problems noted. Social History Smoking/Tobacco Use Status: Current every day Alcohol Intake: former Drug use: Current Sobriety Do you feel safe at home: Yes Do you feel safe in your relationship?: Yes Exam Narrative Exam Narrative: GEN: awake, alert, oriented 3. Pleasant, well groomed, interactive. HEAD: Normocephalic, atraumatic ENT: Mucous membranes moist, oropharynx unremarkable, External ear exam unremarkable EYES: PERRL, EOMI NECK: Full ROM, no ALLEY, no menigismus CHEST/RESP: Nontender, clear to auscultation bilateral, no wheeze/rhonchi/rales CARDIOVASCULAR: RRR, no murmur, rub rosaline. 2+ Rad pulse bilateral ABDOMEN: Soft, nontender, no mass. +Bowel sounds EXT: Right below the knee amputation with prosthesis. Full ROM, left distal radius and hand tender and mildly edematous. Range of motion intact. Sensation intact throughout. Neuro: Grossly normal neurologic exam, conversant, interactive. Psych: Speech fluent, thoughts congruent, affect normal Course Vital Signs Vital signs: Vital Signs Temperature 36.7 C 11/25/18 09:06 Pulse 92 H 11/25/18 09:06 Respiratory Rate 14 11/25/18 09:06 Blood Pressure 143/79 H 11/25/18 09:06 Pulse Oximetry 97 11/25/18 09:06 Temperature 36.7 C 11/25/18 09:06 Temperature Source Skin 11/25/18 09:06 Pulse 92 H 11/25/18 09:06 Respiratory Rate 14 11/25/18 09:06 Respiratory Effort 11/25/18 09:12 Blood Pressure 143/79 H 11/25/18 09:06 Blood Pressure Position Sitting 11/25/18 09:06 Pulse Oximetry 97 11/25/18 09:06 Oxygen Delivery Method Room Air 11/25/18 09:06 Oxygen Flow Rate 0 11/25/18 09:06 Pain Level 8 11/25/18 09:10 Comment 11/25/18 09:06
[2018-11-25] MEDS: Naproxen 250 MG TAB PO (09:24)
[2018-11-25] MEDS: Ketorolac 15 MG/ML VIAL IM (09:54)
== END 2018-11-25 10:13 | disposition home or self-care (01) ==
PROVIDERS: Emergency Provider Emergency Medicine; PCP Nurse Practitioner Family
DX: S63.502A Unspecified sprain of left wrist, initial encounter (principal); W10.8XXA Fall (on) (from) other stairs and steps, initial encounter; Z89.511 Acquired absence of right leg below knee
CPT/HCPCS: 29125; 96372; 99284; 73110; J1885; L3908

== ENCOUNTER 2019-02-15 15:25 | Emergency (ER) | payer MEDICAID, SELFPAY ==
[2019-02-15 15:35] VITALS: BP 117/84; PULSE 103; RESP 16; TEMP 36.4; O2SAT 94
--- NOTE | 2019-02-15 16:00 | ED.GENADUL_ITS ---
Discharge Plan Disposition Patient Disposition: HOME Condition: Improving Discharge Details Chief Complaint: RashLesion Clinical Impression: Urticaria Primary Care Provider: Ivonne Hampton ED Provider: Joesph Pool Home Meds and New Rx's Prescriptions: New prednisone 50 mg tablet 50 mg PO DAILY 5 Days Qty: 5 RF: 0 Continued gabapentin 600 MG tablet 600 mg PO TID RF: 0 methylphenidate HCl 20 MG tablet 20 mg PO TID RF: 0 duloxetine 60 mg Capsule,Delayed Release(Dr/Ec) 60 mg PO DAILY RF: 0 Ciprodex 0.3-0.1 % drops,suspension 4 drp OT BID Qty: 7.5 RF: 0 Nexplanon 68 MG implant 1 ea Intradermal DIRECTED RF: 0 acetaminophen [Tylenol Extra Strength] 500 MG tablet 1,000 mg PO Q6H PRN (Reason: Pain) Qty: 20 RF: 0 amitriptyline 100 mg Tablet 100 mg PO .QHS RF: 0 Discharge Instructions Instructions: Urticaria (ED) Additional Instructions: Please take prednisone as prescribed. May use Benadryl 25 to 50 mg every 6 hours as needed for persistent itching. Please follow-up with Ivonne Caldera if not improving in 3 days time. Return to the emergency department for any acute concern or worsening. Medical Decision Making 33-year-old female presents emergency department complaining of day 2 of a diffuse itching rash that is minimally responded to Benadryl. She does not note any new topical exposure. Exam reveals a erythematous, raised rash that blanches to the touch. Most consistent with urticaria of unknown inciting agent. Will treat with a course of prednisone. She may continue [id number] antihistamine. She is stable for discharge home at this time. HPI General Mode of arrival: ambulatory . Date/Time Provider Initiated Documentation: 02/15/19 15:41 . Limitations to Documentation: no limitations . Information obtained by: patient . History of Present Illness 33 year old F presents to the emergency department with the chief complaint of Itching rash diffusely for 2 days, described as moderate, Quality is described as constant, and is localized to the head, chest and back. Patient reports no radiation. Patient started experiencing this day(s) and it has been constant. No relieving factors improve symptom(s), No exacerbating factors reported . Patient notes other (No drooling or change to voice. Does not note any recent new topical/Derm exposures.); denies shortness of breath. Patient did receive the following treatments prior to arrival, other (Benadryl) Related Data Home Medications Medication Instructions Recorded Confirmed Nexplanon 1 ea INTRADERMAL DIRECTED 10/30/16 02/15/19 gabapentin 600 mg PO TID 03/23/17 02/15/19 methylphenidate HCl 20 mg PO TID 03/23/17 02/15/19 acetaminophen [Tylenol Extra 1,000 mg PO Q6H PRN #20 tab-cap 04/21/17 02/15/19 Strength] duloxetine 60 mg PO DAILY 11/28/17 02/15/19 Ciprodex 4 drp OT BID #7.5 ml 09/22/18 02/15/19 amitriptyline 100 mg PO .QHS 02/15/19 02/15/19 prednisone 50 mg PO DAILY 5 Days #5 tab 02/15/19 Previous Rx's Medication Instructions Recorded acetaminophen [Tylenol Extra 1,000 mg PO Q6H PRN #20 tab-cap 04/21/17 Strength] Ciprodex 4 drp OT BID #7.5 ml 09/22/18 prednisone 50 mg PO DAILY 5 Days #5 tab 02/15/19 Allergies Allergy/AdvReac Type Severity Reaction Status Date / Time bupropion HCl AdvReac Intermediate Contraindic Unverified 02/15/19 15:38 [From Wellbutrin SR] ated General Stated Complaint: RashLesion CELESTE: 4 Review of Systems Narrative: No fever. No known new sick contacts or dermatologic exposures. Sick systems reviewed and otherwise negative [facility] Social History Smoking/Tobacco Use Status: Current every day Alcohol Intake: former Drug use: Current Sobriety Do you feel safe at home: Yes Do you feel safe in your relationship?: Yes Exam Narrative Exam Narrative: GEN: awake, alert, oriented 3. Pleasant, well groomed, interactive. HEAD: Normocephalic, atraumatic ENT: Mucous membranes moist, oropharynx unremarkable-no lesions, External ear exam unremarkable EYES: PERRL, EOMI NECK: Full ROM, no ALLEY, no menigismus CHEST/RESP: Nontender, clear to auscultation bilateral, no wheeze/rhonchi/rales CARDIOVASCULAR: RRR, no murmur, rub rosaline. 2+ Rad pulse bilateral EXT: Full ROM, no edema Skin: Mild diffuse areas of blanching, erythematous rash without vesicles or fluctuance. Nontender. Neuro: Grossly normal neurologic exam, conversant, interactive. Psych: Speech fluent, thoughts congruent, affect normal Course Vital Signs Vital signs: Vital Signs Temperature 36.4 C L 02/15/19 15:35 Pulse 103 H 02/15/19 15:35 Respiratory Rate 16 02/15/19 15:35 Blood Pressure 117/84 02/15/19 15:35 Pulse Oximetry 94 L 02/15/19 15:35 Temperature 36.4 C L 02/15/19 15:35 Temperature Source Skin 02/15/19 15:35 Pulse 103 H 02/15/19 15:35 Respiratory Rate 16 02/15/19 15:35 Respiratory Effort Non-Labored 02/15/19 15:35 Blood Pressure 117/84 02/15/19 15:35 Blood Pressure Position Sitting 02/15/19 15:35 Pulse Oximetry 94 L 02/15/19 15:35 Oxygen Delivery Method Room Air 02/15/19 15:35 Oxygen Flow Rate 0 02/15/19 15:35 Pain Level 0 02/15/19 15:35
[2019-02-15] MEDS: predniSONE 20 MG TAB 60 MG PO (16:15)
[2019-02-15 20:19] VITALS: BP 155/87; PULSE 86; RESP 12; TEMP 37.4; O2SAT 99
== END 2019-02-15 16:05 | disposition home or self-care (01) ==
PROVIDERS: Emergency Provider Emergency Medicine; PCP Nurse Practitioner Family
DX: L50.0 Allergic urticaria (principal)
CPT/HCPCS: 99283; J7512

== ENCOUNTER 2019-02-24 21:21 | Emergency (ER) | payer MEDICAID, SELFPAY ==
[2019-02-24] VITALS (11 sets, daily range): BP systolic 106–118; BP diastolic 62–76; PULSE 72–114; RESP 15–26; TEMP 35–37.5; O2SAT 96–100
[2019-02-24] MEDS: Rocuronium 50 MG/5 ML SYR 100 MG IVP (21:06)
--- NOTE | 2019-02-24 21:08 | DI.RAD_ITS ---
EXAM: XR PORTABLE CHEST AP POST LINE CLINICAL HISTORY: tube placement TECHNIQUE: COMPARISON: XR CHEST 2V PA LATERAL from 12/07/2017 CT HEAD CERVICAL SPINE WO from 02/24/2019 FINDINGS: Portable views of the chest were obtained and show endotracheal tube and NG tube in good position. L ungs are grossly clear and well expanded. IMPRESSION:
--- NOTE | 2019-02-24 21:26 | ED.GENADUL_ITS ---
Discharge Plan Disposition Patient Disposition: [facility] Condition: Stable Discharge Details Chief Complaint: OD/Poison Clinical Impression: Polysubstance overdose, Laceration of toe Primary Care Provider: Ivonne Hampton ED Provider: Mohsen Macedo Medshivam and New Rx's Prescriptions: No Action gabapentin 600 MG tablet 600 mg PO TID RF: 0 methylphenidate HCl 20 MG tablet 20 mg PO TID RF: 0 duloxetine 60 mg Capsule,Delayed Release(Dr/Ec) 60 mg PO DAILY RF: 0 Ciprodex 0.3-0.1 % drops,suspension 4 drp OT BID Qty: 7.5 RF: 0 Nexplanon 68 MG implant 1 ea Intradermal DIRECTED RF: 0 acetaminophen [Tylenol Extra Strength] 500 MG tablet 1,000 mg PO Q6H PRN (Reason: Pain) Qty: 20 RF: 0 amitriptyline 100 mg Tablet 100 mg PO .QHS RF: 0 Medical Decision Making Patient arrives with polysubstance overdose of probable suicide intent. Sedated with ketamine and Ativan in the field. Arrived without line. Right external jugular IV placed by me on arrival. Patient then given rocuronium 100 mg IV. She was intubated on first attempt with a 7-0 ET tube. Fluids were given and Versed drip was started. Mancuso and NG tube placed. Laboratory studies, ABG, portable chest x-ray, CT scan of head and cervical spine ordered. Both nursing and myself with ultrasound guidance attempted other IVs but were unsuccessful on multiple attempts. ABG was obtained and labs were obtained from this. Portable chest x-ray confirmed good ET tube placement. NG tube was still high. When we attempted to advance this patient suddenly woke up despite Versed drip. She was held down so was not to extubate herself. She was given 10 mg of vecuronium and 5 mg of Versed IV push. She then went for CT head and neck. Patient discussed with [facility] ICU team. Patient accepted to medical ICU under Dr. Lincoln at [facility]. [facility] called for transport. Laboratory studies significant for a blood gas which shows a pH of 7.40 with PCO2 of 41 and bicarb 25. She has a mild anemia. Chemistries are normal with no anion gap. Lactic acid normal. Liver function normal. test negative. Drug screen positive for opiates cocaine and tricyclics. Alcohol, acetaminophen, salicylate negative. CT scan of the head reveals no intracranial injury. There is an occipital hematoma and question laceration. I do not visualize any blood but did not specifically roll a look at the back of her head. Cervical spine negative for fracture. Questionable upper lung airspace disease. Toe laceration was closed by physician trade sales assistant Ariel. [facility] transport arrived to take patient to [facility]. Patient care transferred to [facility] medical team. She left ED in stable condition intubated and sedated. Lab Data Lab results reviewed: Yes I reviewed the patient's lab results. ECG Data Attestation: I personally reviewed and interpreted this ECG (s) as follows: Prior ECG tracings: available for review Interpretation: Sinus rhythm. No QRS widening. No prolonged T wave. No ST changes. HPI General Mode of arrival: EMS . Date/Time Provider Initiated Documentation: 02/24/19 21:26 . Limitations to Documentation: altered mental status . Information obtained by: family (boyfriend) and EMS . HPI Narrative: Patient brought in by EMS after responding to call for agitated individual. There was questionable report of seizure. EMS feels that this was more of combativeness, agitation, altered mental status than seizure. Per report she was a polysubstance drug ingestion. Subsequently boyfriend was able to inform us that she had taken heroin, crack, gabapentin, Ritalin, amitriptyline and red bull energy drink. It is presumed this was intentional as a possible suicide attempt although not known for sure. Patient received ketamine 250 mg IM and Ativan 2 mg IM prior to being placed in the ambulance due to combativeness and agitation. Per report she kicked and broke a mirror as well as slammed her head against schwab and floor during her combativeness. She arrives here deeply sedated with assisted ventilation. Per EMS report she had temperature of 103.9 for them. Related Data Home Medications Medication Instructions Recorded Confirmed Nexplanon 1 ea INTRADERMAL DIRECTED 10/30/16 02/15/19 gabapentin 600 mg PO TID 03/23/17 02/15/19 methylphenidate HCl 20 mg PO TID 03/23/17 02/15/19 acetaminophen [Tylenol Extra 1,000 mg PO Q6H PRN #20 tab-cap 04/21/17 02/15/19 Strength] duloxetine 60 mg PO DAILY 11/28/17 02/15/19 Ciprodex 4 drp OT BID #7.5 ml 09/22/18 02/15/19 amitriptyline 100 mg PO .QHS 02/15/19 02/15/19 Previous Rx's Medication Instructions Recorded acetaminophen [Tylenol Extra 1,000 mg PO Q6H PRN #20 tab-cap 04/21/17 Strength] Ciprodex 4 drp OT BID #7.5 ml 09/22/18 Allergies Allergy/AdvReac Type Severity Reaction Status Date / Time bupropion HCl AdvReac Intermediate Contraindic Unverified 02/15/19 15:38 [From Wellbutrin SR] ated General CELESTE: 4 Review of Systems Unobtainable due to mental status [facility] Medical History ADHD, hyperactive-impulsive type (Chronic 05/14/16) Anemia (Chronic) Anxiety (Chronic) Cardiomyopathy (Chronic 01/22/16) Depression difficulty bonding with 2nd child. child removed from her custody. was on Wellbutrin but had sz and not on meds at this time. has appt with counselor 03/2015 Hepatitis C infection (Chronic) HSV infection Hx of infant who one week after . ? HSV or H1N1 infection. Pt has been on prophylaxis with pregnancies. Opioid dependence (Chronic) Subacute endocarditis (Acute 01/22/16) MSSA endocarditis January, Surgical History Amputation 12/23/16;[facility]; RIGHT BELOW THE KNEE section (11/24/12) PCD @ 34w. IUGR. [facility]. [id number]. [facility]. 03/26/15 RCD. Pt arrived in labor and declined SUN. F. Jessica. Social History Smoking/Tobacco Use Status: Current every day Alcohol Intake: former Substance use type: crack/cocaine and heroin Do you feel safe at home: Yes Do you feel safe in your relationship?: Yes Exam Narrative Exam Narrative: Vitals: A febrile here with temperature sensing Mancuso. Mildly tachycardic. Normal blood pressure. Normal O2 saturations with assisted ventilation. Const: WDWN female deeply sedated with assisted ventilation. HEENT: NC/AT. Normal facial exam. Right external ear with dry/cracked eczematous type lesion. Eyes: PERRL. Anicteric. Neck: Trachea midline. Lungs: Assited ventilation. Lungs are clear. Cor: RRR without murmur/gallop. Tachy. Good radial pulses. GI: Soft and nondistended. Neuro: Deeply sedated. CHANEL x4. Ext: No C/C/E. No deformity. Right BKA. Laceration to 2nd toe on left. Superficial lac to dorsum left foot. Skin: Warm and dry. Laceration on toe about 1.5 cm. Superficial laceration of foot about 3cm. Procedures ABG Interpretation ABG Interpretation 1: Interpretation: normal EJ/Peripheral Line Neck R: Skin Cleansed in Sterile Fashion: Yes Size (gauge): 18 IV Secured and Dressing Applied: Yes Patient Tolerated Procedure: well Intubation Time out performed: Yes sedative: other (Ketamine and Ativan in field) paralytic: Rocuronium Mg Given: 100 Laryngoscope: Andrés ET Tube Size: 7 ET Tube Uncuffed: No Tube Secured Depth (cm): 23 Tube Secured Location: lips Tube Placement Confirmation: visualized tube passing through cords, equal breath sounds bilaterally and confirmation by capnometry Patient Tolerated Procedure: no complications Intubation Complications: none Critical Care Time Critical Care Time Critical Care Time: Yes Total Critical Care Time: 60 Attestation: Upon my evaluation, this patient had a high probability of imminent or life- threatening deterioration, which required my direct attention, intervention, and personal management. I have personally provided minutes of critical care time exclusive of time spent on separately billable procedures. Time includes review of laboratory data, radiology results, discussion with consultants, and monitoring for potential decompensation. Interventions were performed as documented above.
--- NOTE | 2019-02-24 21:50 | DI.VRAD_ITS ---
PROCEDURE INFORMATION: Exam: XR Chest, 1 View Exam date and time: 02/24/2019 21:27 Age: 33 years old Clinical indication: Device placement; Ng tube TECHNIQUE: Imaging protocol: XR of the chest Views: 1 view. COMPARISON: CR XR CHEST 2V PA LATERAL 12/07/2017 13:53 FINDINGS: Tubes, catheters and devices: Endotracheal tube in satisfactory position. The nasogastric tube terminates in the mid-to distal thoracic esophagus; advancement by 10-15 cm is recommended. Lungs: Mild vascular congestion with no isaac airspace consolidation. Pleural space: No significant pleural effusion. No pneumothorax. Heart/Mediastinum: No cardiomegaly. Bones/joints: No acute fracture. IMPRESSION: 1. Endotracheal tube in satisfactory position. 2. The nasogastric tube terminates in the mid-to distal thoracic esophagus; advancement by 10-15 cm is recommended. Dictated and Authenticated by: Dilma Padilla MD. Ordering:BECKI Connolly MD
[2019-02-24] MEDS: Vecuronium 10 MG VIAL IVP (21:55)
[2019-02-24] MEDS: Midazolam 5 MG/5 ML VIAL (21:56)
[2019-02-24] MEDS: Lactated Ringers 1,000 ML 1000 ML IV (22:17)
[2019-02-24] MEDS: Normal Saline Flush 10 ML SYR IVP (22:26)
[2019-02-24 22:27] LABS: BE 0.3 mmol/L (-3-3); HCO3 25 mmol/L (22-28); pCO2 41 mmHg (34-47); pO2 214 mmHg (83-108)
[2019-02-24 22:29] LABS: Site Right Radial
[2019-02-24 22:36] LABS: Abs Immature Grans 0.01 k/cumm (0.0-0.09); Absolute Basophil Count 0.01 k/cumm (0.0-0.2); Absolute Eosinophil Count 0.07 k/cumm (0.0-0.7); Absolute Lymphocyte Count 1.17 k/cumm (1.2-3.4); Absolute Monocyte Count 0.61 k/cumm (0.11-0.7); Absolute Neutrophil Count 5.76 k/cumm (1.2-6.7); Basophils % 0.1; Eosinophils % 0.9; HGB 11.2 g/dL (12.0-15.5); Immature Grans % 0.1; Lymphocytes % 15.3; Mean Corp. HGB Concentration 33.9 g/dL (32.0-36.0); Mean Corpuscular Hemoglobin 29.9 pg (27.0-33.0); Mean Corpuscular Volume 88.2 fL (80-95); Mean Platelet Volume 8.9 fL (8.0-11.0); Neutrophils % 75.6; Platelet Count 207 x1000/uL (130-400); RBC 3.74 m/cumm (4.00-5.20); RBC Distribution Width 13.2 % (11.7-14.6); White Blood Cell Count 7.63 k/cumm (4.4-10.8)
[2019-02-24 22:37] LABS: Bilirubin Negative (Negative); Blood Negative (Negative); Clarity Clear (Clear); Glucose Negative (Negative); Ketones Trace mg/dL (Negative); Leukocyte Esterase Negative (Negative); Nitrite Negative (Negative); Specific Gravity 1.025 (1.005-1.025); Urobilinogen 0.2 EU/dL (Up TO 0.2); pH 6.5 (5-8)
[2019-02-24] MEDS: Lactated Ringers 1,000 ML 200 ML IV (22:39)
--- NOTE | 2019-02-24 22:39 | W.ED.PROC ---
Procedures Laceration Laceration 1: Site: lower extremity Side (If applicable): left Size (cm): 2 Description: other (half herrera shaped) Depth: simple, single layer Local Anesthetic: other anesthetic (medically sedated, medically paralyzed. ) Pre-repair: wound explored and irrigated extensively Size (cm): 5-0 (prolene) Number of sutures: 4 Size: 5-0
[2019-02-24 22:45] LABS: Lactate 1.2 mmol/L (0.6-1.4)
[2019-02-24 22:46] LABS: Bacteria Negative HPF (Negative); Crystals Moderate Amorphous HPF (Negative); Epithelial Cells Negative HPF (Negative); Other Cells Negative (Negative); RBC Negative HPF (0-2); WBC 0-2 HPF (0-5)
[2019-02-24 22:47] LABS: C & S Indicated? No; Casts Negative LPF (Negative); Mucus Negative (Negative)
[2019-02-24 22:50] LABS: ALT 21 U/L (14-59); AST 20 U/L (15-37); Albumin 3.6 g/dL (3.4-5.0); Alkaline Phosphatase 56 U/L (46-116); Anion Gap 10.3 mmol/L (3-11); BUN 10 mg/dL (7-18); Bilirubin, Total 0.3 mg/dL (0.2-1.0); CO2 24.7 mmol/L (21.0-32.0); Calcium 8.5 mg/dL (8.5-10.1); Chloride 106 mmol/L (98-107); Glucose 92 mg/dL (74-106); Potassium 4.1 mmol/L (3.5-5.1); Sodium 141 mmol/L (136-145); Total Protein 6.5 g/dL (6.4-8.2)
[2019-02-24 22:52] LABS: *AMPHETAMINES SCREEN URINE Negative (Negative); *BARBITURATES SCREEN URINE Negative (Negative); *BENZODIAZEPINES SCREEN URINE Negative (Negative); Cannabinoids THC Negative (Negative); Cocaine Screen,Urine POSITIVE (Negative); METHADONE URINE SCREEN Negative (Negative); OPIATES URINE SCREEN POSITIVE (Negative)
[2019-02-24 22:55] LABS: Tricyclic Antidepressants POSITIVE (Negative)
--- NOTE | 2019-02-24 23:06 | DI.CT_ITS ---
EXAM: CT HEAD CERVICAL SPINE WO CLINICAL HISTORY: unresponsive/combative TECHNIQUE: The exam was performed according to protocol without contrast. COMPARISON: XR CHEST 2V PA LATERAL from 12/07/2017 CT FACIAL W from 06/14/2018 FINDINGS: CT examination of the cervical spine was performed with multi slice acquisition. Images obtained thr ough the lung apices show multiple areas of pleural thickening and also multiple areas of increased i ntrapulmonary radiodensity which are vaguely nodular, some of which appear to contain cysts or be cav itary in nature. Follow-up chest CT recommended to evaluate the possibility of chronic infectious or neoplastic process. No cervical spine fracture or dislocation seen. No cervical mass or adenopathy. Endotracheal tube a nd NG tube are noted in position. Noncontrast cranial CT was performed. Ventricular system is normal in appearance. No evidence of ac gisell intracranial hemorrhage, mass effect or midline shift. The orbital and temporal bone structures appear intact. No calvarial fracture identified. Paranasal sinuses and mastoid air cells are genera lly well aerated as visualized. IMPRESSION: No evidence of acute intracranial injury. No evidence of acute cervical spine fracture Multiple apical lung lesions, indeterminate but possibility of chronic infectious or neoplastic disea se is raised. Chest CT suggested for further evaluation.
[2019-02-24 23:23] LABS: Acetaminophen < 2 ug/mL (10-30)
--- NOTE | 2019-02-24 23:24 | DI.VRAD_ITS ---
PROCEDURE INFORMATION: Exam: CT Head Without Contrast Exam date and time: 02/24/2019 22:57 Age: 33 years old Clinical indication: Injury or trauma; Initial encounter; Injury date: 02/24/2019; Injury details: PT unresponsive/combative TECHNIQUE: Imaging protocol: Computed tomography of the head without contrast. Radiation optimization: All CT scans at this facility use at least one of these dose optimization techniques: automated exposure control; mA and/or kV adjustment per patient size (includes targeted exams where dose is matched to clinical indication); or iterative reconstruction. COMPARISON: CT HEAD WITHOUT CONTRAST 03/23/2017 10:21 FINDINGS: Brain: No hemorrhage. No significant white matter disease. No edema. Ventricles: No ventriculomegaly. Bones/joints: No acute fracture. Sinuses: Mild mucosal thickening in the ethmoid air cells. Mastoid air cells: No mastoid effusion. Soft tissues: Mild left parietal occipital scalp swelling and laceration. IMPRESSION: 1. No acute intracranial findings. 2. Mild left parietal occipital scalp swelling and laceration. PROCEDURE INFORMATION: Exam: CT Cervical Spine Without Contrast Exam date and time: 02/24/2019 22:57 Age: 33 years old Clinical indication: Injury or trauma; Initial encounter; Injury date: 02/24/2019; Injury details: PT unresponsive/combative TECHNIQUE: Imaging protocol: Computed tomography images of the cervical spine without contrast. Radiation optimization: All CT scans at this facility use at least one of these dose optimization techniques: automated exposure control; mA and/or kV adjustment per patient size (includes targeted exams where dose is matched to clinical indication); or iterative reconstruction. COMPARISON: CT HEAD WITHOUT CONTRAST 03/23/2017 10:21 FINDINGS: Tubes, catheters and devices: Nasogastric and endotracheal tubes partially seen in the expected position. Vertebrae: Reversal of the normal cervical lordosis. No acute fracture or subluxation. Discs/Spinal canal/Neural foramina: No significant spinal stenosis. Soft tissues: No suspicious lesions. Lungs: Airspace disease in both upper lobes. Left greater than right. Cystic regions present within areas of airspace opacification in the left lung apex. Vasculature: Very minor gas left neck superficial veins most likely related to medication or contrast injection. IMPRESSION: 1. No cervical spine fracture. 2. Airspace disease in both upper lobes suggests infection which may be nonacute. Dictated and Authenticated by: Dilma Padilla MD. Ordering:BECKI Connolly MD
--- NOTE | 2019-02-24 23:47 | NUR.NOTE ---
VICKY Sarmiento from home at 2047 as Yasmin Florentino, had been at home, agitated, out of control, kicking mirrors and speaking incomprehensible words. Was given 250mg ketamine IM and 2mg ativan IM en route. Dropped sats to 80's, bagged by EMS for several minutes till arrival. Per EMS temp 103.9 tympanically. On arrival #18 to REJ by MD Macedo. Intubation with 7.0 ETT, 24 at lip. NGT to right nare, 45 at nare. placed on versed drip at 39mcg/kg, changed to 20mcg/kg. Pt noted to have right BKA, left foot has mulitple lacerations and abrasions. Lac to 2nd toe sutured by CHARLIE George with 4 sutures. Steri-strips to abrasions. PERRLA, 4mm to 2mm. multiple attempts to place second line by RN, and using US with no success. Xray showed NGT needed advancement, attempted, pt became agitated, sat up in bed, required versed bolus to sedate. Per MD Macedo, will attempt to advance after return from CT. To CT without incident, began raising right arm on arrival back to ED, 2mg versed bolus per MD Macedo and [facility]. Transported to [facility] via [facility]. Report to Roxanna in ICU [phone].
== END 2019-02-24 23:30 | disposition short-term general hospital (02) ==
PROVIDERS: Emergency Provider Emergency Medicine; PCP Nurse Practitioner Family
DX: T40.1X2A Poisoning by heroin, intentional self-harm, initial encounter (principal); T40.5X2A Poisoning by cocaine, intentional self-harm, initial encounter; S00.03XA Contusion of scalp, initial encounter; T43.632A Poisoning by methylphenidate, intentional self-harm, initial encounter; S91.115A Laceration without foreign body of left lesser toe(s) without damage to nail, initial encounter; W25.XXXA Contact with sharp glass, initial encounter; S90.811A Abrasion, right foot, initial encounter
CPT/HCPCS: 12001; 31500; 36415; 51702; 71045; 80053; 80307; 81025; 82805; 87040; 93005; 96361; 96365; 96366; 96375; 96376; 99291; 36010; 36600; 70450; 72125; 80320; 80329; 81003; 81015; 83605; 85025; 93010; J2250; L0172

== ENCOUNTER 2019-05-03 08:22 | Emergency (ER) | payer MEDICAID, SELFPAY ==
[2019-05-03 08:25] VITALS: BP 144/78; PULSE 94; RESP 20; TEMP 36.6; O2SAT 97
--- NOTE | 2019-05-03 09:05 | W.ED.GENAD ---
Discharge Plan Disposition Patient Disposition: HOME Condition: Stable Discharge Details Chief Complaint: Fever Clinical Impression: Viral illness, Dehydration Primary Care Provider: Jah Ortiz ED Provider: Madyson George Home Meds and New Rx's Prescriptions: No Action gabapentin 600 MG tablet 600 mg PO TID RF: 0 methylphenidate HCl 20 MG tablet 20 mg PO TID RF: 0 pramipexole [Mirapex] 1 mg Tablet PO DAILY RF: 0 risperidone [Risperdal] 2 mg Tablet 2 mg PO DAILY RF: 0 prazosin 2 mg Capsule 2 mg PO TID RF: 0 Nexplanon 68 MG implant 1 ea Intradermal DIRECTED RF: 0 acetaminophen [Tylenol Extra Strength] 500 MG tablet 1,000 mg PO Q6H PRN (Reason: Pain) Qty: 20 RF: 0 Discharge Instructions Instructions: Dehydration (ED), Viral Syndrome (ED) Additional Instructions: Drink plenty of fluids. Rest activities as tolerated. You have blood cultures pending. We will call for any positive results. Follow-up closely with your primary care doctor. Please follow-up with the population health coach. Consider restarting on Suboxone or an alternative creative reducing medication as discussed. Abstain from using heroin or cocaine. Return to the emergency room for any worsening, concerns or alarming symptoms sooner if needed Medical Decision Making <CHARLIE Salas - Last Filed: 05/03/19 11:37> This is a 33-year-old patient presenting to the emergency room for complaints of fever for 1 week. Patient reports her daughter was also ill with similar symptoms prior to onset of her symptoms. Patient did report headache and body ache associated with nasal congestion, sore throat and coughing. Fevers for approximately 1 week intermittently. On day 6 of illness she did have several episodes of vomiting and reports throughout the week diarrhea was present. Patient denies chest pain, difficulty breathing or shortness of breath or wheezing. Patient reports no persistent vomiting or nausea. Patient is concerned as she did use IV drugs 1 week ago and does have a history of bacterial endocarditis. Patient's initial vital signs reviewed. Heart rate is 94 afebrile. Patient is in no apparent distress at this time. Patient with a notable TM perforations bilaterally. Patient does report some diminished hearing. I have recommended she follow-up with her PCP or ENT for this. Patient is aware of chronic perforations which she reports are due to trauma. Plan to check labs including blood cultures for concerns of bacterial endocarditis. Check influenza swab and rehydrate IV. EKG reviewed which reveals sinus rhythm with a heart rate of 78 with no interval abnormalities or ST segment changes. This was reviewed with Dr. Leyva. Nothing to indicate myocarditis at this time. No tachycardia noted. ice hockey coach called for consultation due to IV drug use. Patient consents to this consultation. Patient's labs entirely reassuring. Patient has no associated leukocytosis, very minimal elevation of sed rate at 22, CMP reviewed and normal, urinalysis reviewed and normal. Patient is not . Did provide patient 1 L of IV fluid. Patient is feeling well at this time. Patient spoke with population health coach at length. Together they have formed a plan of care to maintain sobriety. Patient intends to pursue this plan of care as an outpatient. Blood cultures pending. Patient feels comfortable discharge home at this time. Patient aware of alarming signs and symptoms for which she should return. The patient was stable and requested discharge. Prior to discharge, my usual and customary return precautions were reviewed with the patient - this included follow-up instructions and reasons to return to the Emergency Department if conditions worsens, does not improve as expected, or other new concerns arise. <Theodore Leyva DO - Last Filed: 05/03/19 09:32> Candidate vein examined with linear array probe - confirmed collapsibility, lack of pulsatility, and proper anatomic location. Using aseptic technique, IV catheter inserted with flash of blood noted, flow of venous blood confirmed. Flushes easily and without pain. No hematoma or complications noted. IV secured. Patient tolerated well. HPI <CHARLIE Salas - Last Filed: 05/03/19 11:37> General Date/Time Provider Initiated Documentation: 05/03/19 08:36. HPI Narrative: Is a 33-year-old patient presenting to the emergency room for complaints of fever. Patient reports 1 week of fever. Onset of nasal congestion, body ache, cough. Patient reports on day 6 of illness she began to vomit and vomited several times. Patient does report diarrhea throughout the course of the week. Patient denies difficulty breathing or shortness of breath or wheezing. Patient does feel dehydrated at this time. Fever seemingly resolved yesterday. She awoke afebrile this morning. Patient denies chills at this time. Patient denies nausea or vomiting at this time. Does report mild persistent diarrhea. Patient is also concerned as she did use IV drugs in her left foot 1 week ago prior to onset of her symptoms. Patient is concerned as she does have a significant medical history including endocarditis, osteomyelitis, right leg amputation, hepatitis C, anemia. Patient does report mild lower abdominal discomfort. No significant dysuria, urgency or frequency. Patient denies vaginal discharge or bleeding. Patient is concerned as she had not used IV drugs until 1 week ago and is concerned with the possibility of infection secondary to use. Related Data Home Medications Medication Instructions Recorded Confirmed Nexplanon 1 ea INTRADERMAL DIRECTED 10/30/16 05/03/19 gabapentin 600 mg PO TID 03/23/17 05/03/19 methylphenidate HCl 20 mg PO TID 03/23/17 05/03/19 acetaminophen [Tylenol Extra 1,000 mg PO Q6H PRN #20 tab-cap 04/21/17 05/03/19 Strength] pramipexole [Mirapex] mg PO DAILY 05/03/19 prazosin 2 mg PO TID 05/03/19 05/03/19 risperidone [Risperdal] 2 mg PO DAILY 05/03/19 05/03/19 Previous Rx's Medication Instructions Recorded acetaminophen [Tylenol Extra 1,000 mg PO Q6H PRN #20 tab-cap 04/21/17 Strength] Allergies Allergy/AdvReac Type Severity Reaction Status Date / Time bupropion HCl AdvReac Intermediate Contraindic Unverified 05/03/19 08:27 [From Wellbutrin SR] ated General Stated Complaint: Fever CELESTE: 4 Review of Systems <CHARLIE Salas - Last Filed: 05/03/19 11:37> All systems reviewed & are unremarkable except as noted in HPI and below Constitutional Constitutional: Denies chills, Reports fatigue, Reports fever(s) (Resolved this morning), Reports headache(s) and Reports malaise ENT Ears, Nose, Mouth, and Throat: Denies vertigo, Denies dizziness, Reports headache(s), Reports nasal congestion and Reports sore throat Cardiovascular Cardiovascular: Denies chest pain, Denies irregular heart rhythm, Denies palpitations, Denies dyspnea and Denies dyspnea on exertion Respiratory Respiratory: Reports cough, Denies dyspnea and Denies dyspnea on exertion Gastrointestinal Gastrointestinal: Reports abdominal pain, Reports diarrhea, Reports nausea and Reports vomiting Genitourinary Genitourinary: Denies hematuria and Denies dysuria Integumentary/Breasts Skin/Breast: Denies erythema and Denies skin swelling Neurologic Neurologic: Denies vertigo, Denies dizziness and Reports headache(s) Endocrine Endocrine: Reports fatigue and Denies palpitations PFSH <CHARLIE Salas - Last Filed: 05/03/19 11:37> Medical History ADHD, hyperactive-impulsive type (Chronic 05/14/16) Anemia (Chronic) Anxiety (Chronic) Cardiomyopathy (Chronic 01/22/16) Depression difficulty bonding with 2nd child. child removed from her custody. was on Wellbutrin but had sz and not on meds at this time. has appt with counselor 03/2015 Hepatitis C infection (Chronic) HSV infection Hx of who one week after . ? HSV or H1N1 infection. Pt has been on prophylaxis with pregnancies. Opioid dependence (Chronic) Subacute endocarditis (Acute 01/22/16) MSSA endocarditis January, Social History Smoking/Tobacco Use Status: Current every day Alcohol Intake: former Drug use: Daily Substance use type: crack/cocaine and heroin Do you feel safe at home: Yes Do you feel safe in your relationship?: Yes Exam <CHARLIE Salas - Last Filed: 05/03/19 11:37> Narrative Exam Narrative: CONST: Healthy appearing patient, in no acute distress. She is dry mucous membranes. Alert and oriented. HENMT: Head nomocephalic, normal to inspection. Atraumatic. Hearing grossly normal. TMs bilateral perforations present which appear chronic. No pharyngeal erythema. EYES: General normal appearance. Alignment normal. Eyelids normal. Conjunctiva normal. NECK: Normal visual inspection. FROM. Trachea midline. No Midline tenderness. No cervical lymphadenopathy at this time CHEST: Normal insepection of the chest. RESP: Normal respiratory effort. Speaking full sentences. No cough. No audible wheezing. No retractions. Breath sounds clear, full and equal bilaterally. No wheezing, rhonchi or rales. CARDIO: No JVD. No murmur. Regular rate and rhythm Abdomen: Bowel sounds are present in all 4 quadrants, abdomen is soft, mild suprapubic discomfort with palpation otherwise no palpable abdominal pain elicited. No peritoneal signs, rebound or guarding. MUSCULOSKELETAL: Below the knee prosthetic on the right leg. Left leg with multiple track gonzalez present without sign of associated abscess or infection at this time SKIN: Normal. Dry. No rashes. NEURO: Alert and awake. Speech clear. PSYCH: Normal affect. Cooperative. Course <CHARLIE Salas - Last Filed: 05/03/19 11:37> Vital Signs Vital signs: Vital Signs Temperature 36.6 C 05/03/19 08:25 Pulse 94 H 05/03/19 08:25 Respiratory Rate 20 05/03/19 08:25 Blood Pressure 144/78 H 05/03/19 08:25 Pulse Oximetry 97 05/03/19 08:25 Temperature 36.6 C 05/03/19 08:25 Temperature Source Temporal Artery Scan 05/03/19 08:25 Pulse 94 H 05/03/19 08:25 Respiratory Rate 20 05/03/19 08:25 Respiratory Effort Non-Labored 05/03/19 08:32 Blood Pressure 144/78 H 05/03/19 08:25 Pulse Oximetry 97 05/03/19 08:25 Pain Level 0 05/03/19 08:25 Lab/Test Results Lab/Test Results: 05/03/19 08:51 Nasopharynx Influenza Types A,B Antigen - Pending 05/03/19 08:38 Blood Blood Culture - Pending 05/03/19 08:38 Blood Blood Culture - Pending
[2019-05-03 09:20] LABS: Bilirubin Negative (Negative); Blood Negative (Negative); Clarity Clear (Clear); Glucose Negative (Negative); Ketones Negative (Negative); Leukocyte Esterase Negative (Negative); Nitrite Negative (Negative); Specific Gravity 1.015 (1.005-1.025); Urobilinogen 0.2 EU/dL (Up TO 0.2)
[2019-05-03 09:43] VITALS: BP 93/66; PULSE 78; RESP 18; TEMP 36.6; O2SAT 100
[2019-05-03 09:50] LABS: Abs Immature Grans 0.01 k/cumm (0.0-0.09); Absolute Basophil Count 0.02 k/cumm (0.0-0.2); Absolute Eosinophil Count 0.22 k/cumm (0.0-0.7); Absolute Lymphocyte Count 1.09 k/cumm (1.2-3.4); Absolute Monocyte Count 0.33 k/cumm (0.11-0.7); Basophils % 0.4; Eosinophils % 4.3; HCT 38.6 % (36.0-46.0); HGB 12.9 g/dL (12.0-15.5); Immature Grans % 0.2 %; Lymphocytes % 21.1; Mean Corp. HGB Concentration 33.4 g/dL (32.0-36.0); Mean Corpuscular Hemoglobin 30.5 pg (27.0-33.0); Mean Corpuscular Volume 91.3 fL (80-95); Mean Platelet Volume 9.3 fL (8.0-11.0); Monocytes % 6.4; Neutrophils % 67.6; Platelet Count 275 x1000/uL (130-400); RBC 4.23 m/cumm (4.00-5.20); RBC Distribution Width 13.5 % (11.7-14.6); White Blood Cell Count 5.17 k/cumm (4.4-10.8)
[2019-05-03 09:51] LABS: Lactate 0.9 mmol/L (0.6-1.4)
[2019-05-03 10:06] LABS: ALT 25 U/L (14-59); AST 21 U/L (15-37); Albumin 3.7 g/dL (3.4-5.0); Alkaline Phosphatase 73 U/L (46-116); Anion Gap 9.5 mmol/L (3-11); BUN 8 mg/dL (7-18); Bilirubin, Total 0.1 mg/dL (0.2-1.0); CO2 25.5 mmol/L (21.0-32.0); CREATININE 0.79 mg/dL (0.55-1.02); Calcium 8.4 mg/dL (8.5-10.1); Chloride 107 mmol/L (98-107); Glucose 105 mg/dL (74-106); Potassium 3.8 mmol/L (3.5-5.1); Sodium 142 mmol/L (136-145); Total Protein 7.5 g/dL (6.4-8.2)
[2019-05-03] MEDS: Methylphenidate 10 MG TAB 20 MG PO (10:20)
[2019-05-03 10:28] LABS: ESR 22 mm/hr (0-20)
[2019-05-03] MEDS: Normal Saline 1,000 ML 1000 ML IV (10:56)
== END 2019-05-03 11:45 | disposition home or self-care (01) ==
PROVIDERS: Emergency Provider Physician Assistant; PCP Counselor Mental Health
DX: B34.8 Other viral infections of unspecified site (principal); E86.0 Dehydration; F19.90 Other psychoactive substance use, unspecified, uncomplicated
CPT/HCPCS: 36415; 80053; 81025; 85652; 87040; 87449; 93005; 96360; 99284; 81003; 83605; 85025; 93010; 99283

== ENCOUNTER 2019-07-07 15:32 | Emergency (ER) | payer MEDICAID, SELFPAY ==
[2019-07-07 15:37] VITALS: BP 139/98; PULSE 99; TEMP 36.6; O2SAT 97
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
== END 2019-07-07 17:30 | disposition left against medical advice (07) ==
PROVIDERS: Emergency Provider Physician Assistant; PCP Counselor Mental Health
DX: S00.83XA Contusion of other part of head, initial encounter (principal); S01.511A Laceration without foreign body of lip, initial encounter; Y04.0XXA Assault by unarmed brawl or fight, initial encounter; Y07.03 Male partner, perpetrator of maltreatment and neglect; Z53.29 Procedure and treatment not carried out because of patient's decision for other reasons
CPT/HCPCS: 81025; 99283; 99282

== ENCOUNTER 2019-07-07 19:26 | Emergency (ER) | payer MEDICAID, SELFPAY ==
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
[2019-07-07 19:29] VITALS: BP 142/61; PULSE 83; RESP 16; TEMP 36.4; O2SAT 96
[2019-07-07] MEDS: Penicillin V POTASSIUM 500 MG TAB, 4 TABS/BTL PO (20:06)
[2019-07-07] MEDS: Penicillin V POTASSIUM 500 MG TAB PO (20:06)
[2019-07-07] MEDS: Fluorescein STRIPS 100/BOX 1 MG (20:07)
[2019-07-07] MEDS: Balanced Salt Solution 15 ML BTL (20:07)
[2019-07-07] MEDS: Tetracaine 0.5% 4 ML BTL (20:07)
--- NOTE | 2019-07-07 20:20 | DI.CT_ITS ---
EXAM: CT HEAD CERV SPINE FACIAL WO CLINICAL HISTORY: R eye hematoma, lip laceration. TECHNIQUE: Imaging Protocol: Axial computed tomography images with coronal and sagittal reformatted images were created and reviewed COMPARISON: CT HEAD CERVICAL SPINE WO from 02/24/2019 FINDINGS: Noncontrast cranial CT was performed. There is mild right periorbital soft tissue swelling. The ventricular system is normal in appearance. No evidence of acute intracranial hemorrhage, mass effect, or midline shift. The orbital structures are unremarkable. The temporal bone structures appear intact. Calvarium: Normal. Visualized Paranasal sinuses/Mastoids: Clear. Noncontrast facial CT was performed. No evidence of acute facial fracture. Orbital structures appear intact. No mandibular fracture. Paranasal sinuses are well aerated. Noncontrast cervical spine CT was performed. Nonspecific nodular pulmonary radiodensities are again n oted in the left lung apex, unchanged from 02/24/2019. Correlation with chest CT recommended. Neoplas tic disease not excluded.fungal or atypical mycobacterial infection not excluded. There is no evidence of a cervical spine fracture or dislocation. Tracheolaryngeal structures appear intact. IMPRESSION: No evidence of acute intracranial injury.. No evidence of acute facial fracture. No evidence of acute cervical spine fracture. Left apical multiple intrapulmonary nodules noted, infe ctious versus neoplastic etiology, chest CT recommended for further evaluation. RADIATION DOSE DELIVERED: Total DLP DATA REPOSITORY: All CT scans at this facility are submitted to the National Radiology Data Registry (NRDR) Dose Index Registry (DIR) with the [employer] ([employer]). RADIATION OPTIMIZATION: All CT scans at this facility use at least one of these dose optimization te chniques: automated exposure control; mA and/or kV adjustment per patient size (includes targeted exa ms where dose is matched to clinical indication); or iterative reconstruction.
[2019-07-07 21:10] VITALS: BP 142/78; PULSE 89; RESP 16; TEMP 36.3; O2SAT 98
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
--- NOTE | 2019-07-09 08:28 | W.ED.FU ---
Radiologist called the ED stating that patient was noted to have nonspecific nodular pulmonary radiodensities are again noted in the left lung apex, unchanged from 02/24/2019. Correlation with chest CT recommended. Neoplastic disease not excluded.fungal or atypical mycobacterial infection not excluded. on CT head/facial bones/cervical spine on ED visit this week. Patient's phone number in her chart not active. Case was discussed with care management who was able to obtain an appropriate number for patient and with a plan to establish care with a pcp to order an outpatient ct chest. Dr. 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 Patient was called at home at [phone]. She stated she has a follow-up appointment with [facility] on July 17. She was advised to call on Thursday morning 07/10 to have them schedule an outpatient CT chest and plan to follow-up on results. Patient has no acute complaints at this time. She is understanding of plan.
== END 2019-07-07 21:30 | disposition home or self-care (01) ==
PROVIDERS: Emergency Provider Emergency Medicine; PCP Counselor Mental Health
DX: S09.8XXA Other specified injuries of head, initial encounter (principal); S00.11XA Contusion of right eyelid and periocular area, initial encounter; S01.511A Laceration without foreign body of lip, initial encounter; Y04.0XXA Assault by unarmed brawl or fight, initial encounter; Y07.03 Male partner, perpetrator of maltreatment and neglect; Z86.79 Personal history of other diseases of the circulatory system
CPT/HCPCS: 12011; 99284; 70450; 70486; 72125; 99283; E0114

== ENCOUNTER 2019-07-08 15:37 | Outpatient (REF) | payer MEDICAID, SELFPAY ==
[2019-07-09 07:40] LABS: COVID-19 RT-PCR UVMMC Result Negative (Negative)
== END 2019-07-08 15:57 ==
LOC: NCHCN 15:37
PROVIDERS: PCP Counselor Mental Health; Visit Provider Physician Assistant
DX: Z11.59 Encounter for screening for other viral diseases (principal)
CPT/HCPCS: U0003

== ENCOUNTER 2019-08-21 20:42 | Emergency (ER) | payer MEDICAID, SELFPAY ==
--- NOTE | 2019-08-21 20:44 | W.ED.GENAD ---
Discharge Plan Disposition Patient Disposition: HOME Condition: Good Discharge Details Chief Complaint: Fever Clinical Impression: Cellulitis of foot Primary Care Provider: Glenn Tinajero ED Provider: Theodore Leyva Home Meds and New Rx's Prescriptions: New clindamycin HCl 150 mg capsule 450 mg PO TID 7 Days Qty: 63 RF: 0 No Action gabapentin 600 MG tablet 600 mg PO TID RF: 0 methylphenidate HCl [Ritalin] 20 mg Tablet 20 mg TID RF: 0 Nexplanon 68 MG implant 1 ea Intradermal DIRECTED RF: 0 acetaminophen [Tylenol Extra Strength] 500 MG tablet 1,000 mg PO Q6H PRN (Reason: Pain) Qty: 20 RF: 0 Discharge Instructions Instructions: Cellulitis (ED) Additional Instructions: Is you and I both know it is best for your health and wellbeing to stop using illicit drugs and injecting into the remaining foot. Please contact your strength and conditioning coach as we discussed tonight. Please take the antibiotic as directed. Make sure to take the antibiotic with a yogurt that has live cultures in like activity to help prevent any diarrhea. If you notice any worsening of your symptoms, or any new symptoms such as black spots, worsening swelling, worsening pain or redness, vomiting, diarrhea, fever, chills, shortness of breath, chest pain, numbness, weakness, or fainting , please return immediately to the emergency department for reevaluation. Please follow up with your primary care provider as soon as possible for reassessment and reevaluation. As always, it was a pleasure participating in your medical care today. Referrals: Glenn Tinajero [Primary Care Provider] - Medical Decision Making Patient is a 33-year-old female with a history of IV drug abuse, endocarditis, cardiomyopathy, anxiety and depression, hepatitis, HSV, previous amputation of the right lower extremity secondary to IV drug abuse, who presents today for evaluation of pain and swelling in her remaining left foot. Patient states that last night she injected into her left foot, it was with heroin, she was uncertain if it was cut with anything else. Since then she has noticed mild redness and swelling in the foot where she injected. She denies any significant fever or chills. She denies any mid or proximal leg pain. She denies any other systemic symptoms. She has no other complaints at this time. Physical exam demonstrates mild cellulitis in the left lower extremity, no evidence of circumferential redness. No systemic symptoms of fever chills, vital signs stable, no clinical evidence of septicemia. Signs and symptoms consistent with mild cellulitis. No evidence of trauma no indication for imaging or labs at this time. No murmur on cardiac exam, no evidence of infective endocarditis at this time clinically. Patient will be started on clindamycin, given the first dose here. I did offer to contact her strength and conditioning coach but she states that she will when she gets home. Discussed red flags for which to return. No clinical evidence of retained foreign body. I have extensively reviewed the treatment plan and discharge instructions with the patient. I have addressed all patient concerns at this time. The patient was made aware of what symptoms to monitor for that would warrant a return to the emergency department. Discussed the plan with the patient, they demonstrate verbal understanding and agreement with our assessment and plan at this time. HPI General Date/Time Provider Initiated Documentation: 08/21/19 20:42. HPI Narrative: Patient is a 33-year-old female with a history of IV drug abuse, endocarditis, cardiomyopathy, anxiety and depression, hepatitis, HSV, previous amputation of the right lower extremity secondary to IV drug abuse, who presents today for evaluation of pain and swelling in her remaining left foot. Patient states that last night she injected into her left foot, it was with heroin, she was uncertain if it was cut with anything else. Since then she has noticed mild redness and swelling in the foot where she injected. She denies any significant fever or chills. She denies any mid or proximal leg pain. She denies any other systemic symptoms. She has no other complaints at this time. Related Data Home Medications Medication Instructions Recorded Confirmed Nexplanon 1 ea INTRADERMAL DIRECTED 10/30/16 07/07/19 gabapentin 600 mg PO TID 03/23/17 07/07/19 acetaminophen [Tylenol Extra 1,000 mg PO Q6H PRN #20 tab-cap 04/21/17 07/07/19 Strength] methylphenidate HCl [Ritalin] 20 mg TID 07/07/19 07/07/19 clindamycin HCl 450 mg PO TID 7 Days #63 cap 08/21/19 Previous Rx's Medication Instructions Recorded acetaminophen [Tylenol Extra 1,000 mg PO Q6H PRN #20 tab-cap 04/21/17 Strength] clindamycin HCl 450 mg PO TID 7 Days #63 cap 08/21/19 Allergies Allergy/AdvReac Type Severity Reaction Status Date / Time bupropion HCl AdvReac Intermediate Contraindic Unverified 07/07/19 15:42 [From Wellbutrin SR] ated General CELESTE: 3 Review of Systems All systems reviewed & are unremarkable except as noted in HPI and below PFSH Medical History ADHD, hyperactive-impulsive type (Chronic 05/14/16) Anemia (Chronic) Anxiety (Chronic) Cardiomyopathy (Chronic 01/22/16) Depression difficulty bonding with 2nd child. child removed from her custody. was on Wellbutrin but had sz and not on meds at this time. has appt with counselor 03/2015 Hepatitis C infection (Chronic) HSV infection Hx of infant who one week after . ? HSV or H1N1 infection. Pt has been on prophylaxis with pregnancies. Opioid dependence (Chronic) Subacute endocarditis (Acute 01/22/16) MSSA endocarditis January, Surgical History Amputation 12/23/16;[facility]; RIGHT BELOW THE KNEE section (11/24/12) PCD @ 34w. [facility]. [facility]. [id number]. [facility] [place] [facility]. 03/26/15 RCD. Pt arrived in labor and declined SUN. F. Jessica. Family History Mother No problems noted. Father No problems noted. Brother No problems noted. Grandfather No problems noted. Grandfather No problems noted. Grandmother No problems noted. Grandmother No problems noted. Son No problems noted. Son No problems noted. Daughter No problems noted. Daughter No problems noted. Social History Smoking/Tobacco Use Status: Current every day Alcohol Intake: current Alcohol Intake frequency: a few times a month Alcohol type: beer Drug use: Daily Substance use type: crack/cocaine and heroin Do you feel safe at home: Yes Do you feel safe in your relationship?: Yes Exam Narrative Exam Narrative: 1.Const: Well-nourished, Well-developed, appearing stated age 2.Eyes: PERRL, no conjunctival injection, and symmetrical lids. 3.ENT: Atraumatic external nose and ears. Moist MM. Neck: Symmetric, trachea midline, No thyromegaly. 4.CVS: +S1/S2, No murmurs or gallops. Peripheral pulses 2+ and equal in all extremities. Brisk capillary refill in all extremities. 5.RESP: Unlabored respiratory effort. Clear to auscultation bilaterally. No wheezes rales or rhonchi 6.GI: Soft, Nontender/Nondistended, No hepatosplenomegaly. No guarding or rebound. 7.MSK: Below the knee amputation of the right lower extremity. Left lower extremity demonstrates mild swelling over the dorsum of the foot. Minimal redness. Mild tenderness on palpation, no fluctuance. Good capillary refill, good neurovascular exam. No evidence of necrotic lesions or ulcers. No pain or tenderness with movement of the ankle. Symptoms consistent with mild superficial cellulitis. Multiple previous injection sites are noted. 8.Skin: Warm, Dry. No rashes or lesions. 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 Sensation grossly intact, no focal neurologic deficits. 10.Psych: (AAO) x3. Appropriate mood and affect
[2019-08-21 20:48] VITALS: BP 131/71; PULSE 84; RESP 18; TEMP 36.9; O2SAT 96
[2019-08-21] MEDS: Clindamycin 150 MG CAP, 12 CAPS/BTL 450 MG PO (20:55)
== END 2019-08-21 21:00 | disposition home or self-care (01) ==
PROVIDERS: Emergency Provider Student in an Organized Health Care Education/Training Program; PCP Physician Assistant
DX: L03.116 Cellulitis of left lower limb (principal); F11.20 Opioid dependence, uncomplicated; Z89.511 Acquired absence of right leg below knee; W46.0XXA Contact with hypodermic needle, initial encounter
CPT/HCPCS: 99283

== ENCOUNTER 2019-09-13 13:34 | Outpatient (REF) | payer MEDICAID, SELFPAY ==
[2019-09-17 18:55] LABS: SARS-CoV-2 RNA Undetected (Undetected); SARS-CoV-2 Specimen Source Nasopharynx
== END 2019-09-13 13:54 ==
LOC: NCHCN 13:34
PROVIDERS: PCP Physician Assistant; Visit Provider Nurse Practitioner Family
DX: Z20.828 Contact with and (suspected) exposure to other viral communicable diseases (principal)
CPT/HCPCS: U0003

== ENCOUNTER 2019-12-04 15:50 | Emergency (ER) | payer MEDICAID, SELFPAY ==
[2019-12-04 15:56] VITALS: BP 113/72; PULSE 66; RESP 18; TEMP 36.5; O2SAT 97
--- NOTE | 2019-12-04 16:00 | DI.RAD_ITS ---
EXAM: XR ELBOW RT COMPLETE CLINICAL HISTORY: fall, posterior pin, swelling. TECHNIQUE: 2D digital imaging was performed. COMPARISON: CR LEFT ELBOW LIMITED from 09/29/2009 FINDINGS: BONES: No acute fracture is present. No bony destructive lesion is seen. JOINTS: The elbow is normally aligned. No joint effusion is seen. SOFT TISSUE: There is soft tissue swelling posterior to the olecranon . IMPRESSION: Posterior soft tissue swelling DATA REPOSITORY: RADIATION DOSE DELIVERED:
--- NOTE | 2019-12-04 16:09 | W.ED.GENAD ---
Discharge Plan Disposition Patient Disposition: HOME Condition: Stable Discharge Details Clinical Impression: Olecranon bursitis of right elbow Primary Care Provider: Glenn Tinajero ED Provider: Joesph Pool Home Meds and New Rx's Prescriptions: Continued gabapentin 600 MG tablet 1,200 mg PO TID RF: 0 methylphenidate HCl [Ritalin] 20 mg Tablet 20 mg QID RF: 0 duloxetine [Cymbalta] 60 mg Capsule,Delayed Release(Dr/Ec) 60 mg PO DAILY RF: 0 Nexplanon 68 MG implant 1 ea Intradermal DIRECTED RF: 0 acetaminophen [Tylenol Extra Strength] 500 MG tablet 1,000 mg PO Q6H PRN (Reason: Pain) Qty: 20 RF: 0 Discharge Instructions Instructions: Elbow Bursitis (ED) Additional Instructions: You have a traumatic olecranon bursitis. Ice, gentle compression, joint protection with a sling uppercase to healing as are a small amount of NSAIDs such as ibuprofen or naproxen twice daily. If you develop a fever, redness or inability to bend the elbow please see your regular doctor or return for reevaluation. Continue your regularly prescribed medications. Medical Decision Making 34-year-old female presents after slipping and falling while walking and striking her elbow on hard object. She did not injure self in any other way. She developed olecranon swelling and discomfort. No other injury and can move the joint fully. Her vital signs are normal. Most consistent with olecranon bursitis, must rule out underlying bony injury. She is referred for x-ray which does not show any acute underlying findings. Discussed with her joint protection with sling and Elfego bandage if needed. She will use NSAIDs. Do not feel there is any indication for aspiration as this is a traumatic bursitis, not consistent with infection or gout. HPI General Mode of arrival: ambulatory. Date/Time Provider Initiated Documentation: 12/04/19 15:57. Limitations to Documentation: no limitations. Information obtained by: patient. History of Present Illness 34 year old F presents to the emergency department with the chief complaint of Right elbow pain after fall, described as mild, Quality is described as dull, and is localized to the right and upper extremity. Patient reports no radiation. Patient started experiencing this minute(s) and it has been constant. No relieving factors improve symptom(s), No exacerbating factors reported . Patient notes no other symptoms.; denies weakness. Patient did receive the following treatments prior to arrival, none Related Data Home Medications Medication Instructions Recorded Confirmed Nexplanon 1 ea INTRADERMAL DIRECTED 10/30/16 12/04/19 gabapentin 1,200 mg PO TID 03/23/17 07/07/19 acetaminophen [Tylenol Extra 1,000 mg PO Q6H PRN #20 tab-cap 04/21/17 12/04/19 Strength] methylphenidate HCl [Ritalin] 20 mg QID 07/07/19 12/04/19 duloxetine [Cymbalta] 60 mg PO DAILY 12/04/19 12/04/19 Previous Rx's Medication Instructions Recorded acetaminophen [Tylenol Extra 1,000 mg PO Q6H PRN #20 tab-cap 04/21/17 Strength] Allergies Allergy/AdvReac Type Severity Reaction Status Date / Time bupropion HCl AdvReac Intermediate Contraindic Unverified 12/04/19 16:01 [From Wellbutrin SR] ated General Stated Complaint: Orthopedic CELESTE: 3 Review of Systems Narrative: Denies fever, no redness, no other injury. 4 systems reviewed and otherwise negative. [facility] Medical History (Updated 12/04/19 @ 16:33 by Joesph Pool MD) ADHD, hyperactive-impulsive type (05/14/16) Anemia Anxiety Cardiomyopathy (01/22/16) Depression difficulty bonding with 2nd child. child removed from her custody. was on Wellbutrin but had sz and not on meds at this time. has appt with counselor 03/2015 Hepatitis C infection HSV infection Hx of infant who one week after . ? HSV or H1N1 infection. Pt has been on prophylaxis with pregnancies. Opioid dependence Subacute endocarditis (01/22/16) MSSA endocarditis January, Surgical History Amputation 12/23/16;[facility]; RIGHT BELOW THE KNEE section (11/24/12) PCD @ 35w. IUGR. [facility]. [id number][place] [facility] [place] Pt arrived in labor and declined SUN. F. Jessica. Family History Mother No problems noted. Father No problems noted. Brother No problems noted. Grandfather No problems noted. Grandfather No problems noted. Grandmother No problems noted. Grandmother No problems noted. Son No problems noted. Son No problems noted. Daughter No problems noted. Daughter No problems noted. Social History Smoking/Tobacco Use Status: Current every day Tobacco Type: cigarettes Alcohol Intake: former Drug use: Current Sobriety Substance use type: former substance user, crack/cocaine and heroin Do you feel safe at home: Yes Do you feel safe in your relationship?: Yes Exam Narrative Exam Narrative: GEN: awake, alert, oriented 3. Pleasant, well groomed, interactive. HEAD: Normocephalic, atraumatic EYES: PERRL, EOMI NECK: Full ROM, no ALLEY, no menigismus CHEST/RESP: No respiratory distress EXT: Right olecranon bursa swelling and tenderness. Full range of motion including full extension. 2+ radial pulse bilaterally. Full ROM, no edema, no rash Neuro: Grossly normal neurologic exam, conversant, interactive. Psych: Speech fluent, thoughts congruent, affect normal Course Vital Signs Vital signs: Vital Signs Temperature 36.5 C 12/04/19 15:56 Pulse 66 12/04/19 15:56 Respiratory Rate 18 12/04/19 15:56 Blood Pressure 113/72 12/04/19 15:56 Pulse Oximetry 97 12/04/19 15:56 Temperature 36.5 C 12/04/19 15:56 Temperature Source Temporal Artery Scan 12/04/19 15:56 Pulse 66 12/04/19 15:56 Respiratory Rate 18 12/04/19 15:56 Respiratory Effort Non-Labored 12/04/19 16:04 Blood Pressure 113/72 12/04/19 15:56 Blood Pressure Position Sitting 12/04/19 15:56 Pulse Oximetry 97 12/04/19 15:56 Oxygen Delivery Method Room Air 12/04/19 15:56 Oxygen Flow Rate 0 12/04/19 15:56 Pain Level 7 12/04/19 15:56
--- NOTE | 2019-12-04 16:28 | DI.VRAD_ITS ---
PROCEDURE INFORMATION: Exam: XR Right Elbow Exam date and time: 12/04/2019 4:20 PM Age: 34 years old Clinical indication: Pain; Elbow; Right TECHNIQUE: Imaging protocol: XR Right elbow. Views: 3 or more views. COMPARISON: No relevant prior studies available. FINDINGS: Bones/joints: Normal. Soft tissues: Normal. IMPRESSION: No acute findings. Dictated and Authenticated by: Mona Lindquist MD. Ordering:RANCHO Pink MD
== END 2019-12-04 16:46 | disposition home or self-care (01) ==
PROVIDERS: Emergency Provider Emergency Medicine; PCP Physician Assistant
DX: M70.21 Olecranon bursitis, right elbow (principal); W18.39XA Other fall on same level, initial encounter
CPT/HCPCS: 99283; 73080; L3650

== ENCOUNTER 2019-12-05 08:15 | Emergency (ER) | payer MEDICAID, SELFPAY ==
[2019-12-05 08:26] VITALS: BP 113/73; PULSE 63; RESP 16; TEMP 36.8; O2SAT 98
--- NOTE | 2019-12-05 08:26 | ED.GENADUL_ITS ---
Discharge Plan Disposition Patient Disposition: HOME Condition: Stable Discharge Details Clinical Impression: Fracture of metacarpal, Bursitis, olecranon Primary Care Provider: Glenn Tinajero ED Provider: Chetan Harvey Home Meds and New Rx's Prescriptions: Continued gabapentin 600 MG tablet 1,200 mg PO TID RF: 0 methylphenidate HCl [Ritalin] 20 mg Tablet 20 mg QID RF: 0 duloxetine [Cymbalta] 60 mg Capsule,Delayed Release(Dr/Ec) 60 mg PO DAILY RF: 0 Nexplanon 68 MG implant 1 ea Intradermal DIRECTED RF: 0 acetaminophen [Tylenol Extra Strength] 500 MG tablet 1,000 mg PO Q6H PRN (Reason: Pain) Qty: 20 RF: 0 Discharge Instructions Instructions: Elbow Bursitis (ED), Hand Fracture (ED) Additional Instructions: Continue wearing Elfego wrap for the olecranon bursitis. Wear hand splint until reevaluation with orthopedics. Rest, elevate, cool compresses every 2 hours for 20 minutes. Please watch for new or worsening symptoms and return to the ER for any concerns. [id number] Tylenol and/or Motrin as directed for discomfort. I have placed you on the orthopedic list, I recommend contacting their office later today or tomorrow for prompt outpatient reevaluation Referrals: Joesph Flores MD [ [facility] STAFF PHYSICIAN] - Medical Decision Making 34-year-old female who is right-hand dominant presents concerned about right forearm and hand swelling status post a fall yesterday. She was seen in the ER yesterday, x-ray of the elbow was negative and diagnosed with olecranon bursitis. Examination is consistent with olecranon bursitis today as well. She is afebrile, there is no erythema or warmth. Full range of motion of the elbow, no signs of infection such as septic joint, septic bursitis, cellulitis, etc. I do believe that the swelling of her forearm and hand are likely secondary from her elbow injury, she did not have any pain yesterday. Upon awaking this morning she had swelling of both her forearm and hand. She has diffuse mild discomfort but no bony point tenderness or deformity. Neuro, vascular, tendon intact. I do believe that this is likely simply edema from the elbow injury and will resolve with cool compresses and elevation however I do think that obtaining x-ray of the forearm and hand is certainly reasonable. Patient is agreeable to this plan and has no additional questions or concerns. We discussed the importance of continuing care of her olecranon bursitis as directed yesterday. There is no clear indication for aspiration today. X-ray of forearm and hand obtained and read by radiology, question of a nondisplaced fracture of the fifth metacarpal. Findings with the patient. On reevaluation, she does have discomfort over the fifth metacarpal. Given the increased pain and swelling over the past 24 hours, pain over the fifth metacarpal I do believe that splinting is perfectly reasonable with outpatient follow-up through orthopedics. At that appointment they can likely reassess her olecranon bursitis as well. Patient is agreeable to this plan and does request something for pain. Will provide 60 IM Toradol. Patient placed into a ulnar gutter splint, tolerated well. Neuro, vascular, tendon intact status post splint application as examined by me. Elfego wrap reapplied to the olecranon bursitis. Patient to be placed on the orthopedic list. Medical Records Medical records reviewed: Yes I reviewed the patient's medical records. HPI General Mode of arrival: ambulatory . Date/Time Provider Initiated Documentation: 12/05/19 08:18 . Limitations to Documentation: no limitations . Information obtained by: patient . HPI Narrative: This is a 34-year-old female who was seen in the ER yesterday, negative elbow x-ray, subsequently diagnosed with olecranon bursitis. Original injury occurred secondary to a fall she denies any other injury from the fall. She denies any new injury or trauma overnight. Reports that her right elbow is the same as it was yesterday however upon waking this morning now her forearm and hand has significant swelling and moderate pain, there is no pain or swelling in these areas yesterday prior to going to bed. She is right-hand dominant. She denies fever, numbness, tingling, weakness. She has been wearing an Elfego wrap for her elbow. Patient has full range of motion of her elbow but limited in her hand because it is swollen and feels tight. She denies any recent IV drug use. Related Data Home Medications Medication Instructions Recorded Confirmed Nexplanon 1 ea INTRADERMAL DIRECTED 10/30/16 12/05/19 gabapentin 1,200 mg PO TID 03/23/17 12/05/19 acetaminophen [Tylenol Extra 1,000 mg PO Q6H PRN #20 tab-cap 04/21/17 12/05/19 Strength] methylphenidate HCl [Ritalin] 20 mg QID 07/07/19 12/05/19 duloxetine [Cymbalta] 60 mg PO DAILY 12/04/19 12/05/19 Previous Rx's Medication Instructions Recorded acetaminophen [Tylenol Extra 1,000 mg PO Q6H PRN #20 tab-cap 04/21/17 Strength] Allergies Allergy/AdvReac Type Severity Reaction Status Date / Time bupropion HCl AdvReac Intermediate Contraindic Unverified 12/05/19 08:28 [From Wellbutrin SR] ated General CELESTE: 3 Review of Systems Constitutional Constitutional: Denies fever(s) and Denies weakness Musculoskeletal Musculoskeletal: Denies numbness, Reports stiffness and Denies tingling Integumentary/Breasts Skin/Breast: Denies erythema Neurologic Neurologic: Denies numbness, Denies tingling and Denies weakness [facility] Medical History (Updated 12/05/19 @ 09:38 by CHARLIE Copeland) ADHD, hyperactive-impulsive type (05/14/16) Anemia Anxiety Cardiomyopathy (01/22/16) Depression difficulty bonding with 2nd child. child removed from her custody. was on Wellbutrin but had sz and not on meds at this time. has appt with counselor 03/2015 Hepatitis C infection HSV infection Hx of who one week after . ? HSV or H1N1 infection. Pt has been on prophylaxis with pregnancies. Opioid dependence Subacute endocarditis (01/22/16) MSSA endocarditis January, Surgical History Amputation 12/23/16;[facility]; RIGHT BELOW THE KNEE section (11/24/12) PCD @ 34w. IUGR. [facility]. [id number]. [facility] [place]. 03/26/15 RCD. Pt arrived in labor and declined SUN. F. Jessica. Family History Mother No problems noted. Father No problems noted. Brother No problems noted. Grandfather No problems noted. Grandfather No problems noted. Grandmother No problems noted. Grandmother No problems noted. Son No problems noted. Son No problems noted. Daughter No problems noted. Daughter No problems noted. Social History Smoking/Tobacco Use Status: Current every day Tobacco Type: cigarettes Alcohol Intake: former Drug use: Current Sobriety Substance use type: former substance user, crack/cocaine and heroin Do you feel safe at home: Yes Do you feel safe in your relationship?: Yes Exam Const General: cooperative, healthy appearing, comfortable and no acute distress Orientation: alert and awake HENMT Head: normal to inspection, normocephalic and atraumatic Mouth: moist mucous membranes Eyes Conjunctivae: conjunctivae normal Sclera: sclerae normal Neck Neck: normal visual inspection, trachea midline and supple Resp Effort & Inspection: normal respiratory effort and able to speak in complete sentences Cardio Rate: regular rate Rhythm: regular rhythm Skin General skin exam: no rashes or lesions noted Neuro General: patient alert, patient awake, moves all extremities and no focal motor deficits Motor: muscle tone normal throughout and strength 5/5 throughout Sensory Exam: no sensory deficits noted Extrem Right upper extremity: normal capillary refill, shoulder/upper arm Details: normal to inspection; no tenderness and no swelling, elbow/forearm Details: tenderness (Diffuse mild entire forearm) Location: of the olecranon (Posterior aspect), swelling (Diffuse mild entire forearm) Location: of the olecranon, normal ROM and distal pulses intact; no unusual warmth, wrist Details: swelling (Diffuse mild); no tenderness and hand Details: normal capillary refill, tendon exam normal, tenderness (Diffuse mild) and swelling (Diffuse mild); no ecchymosis Psych Appearance: grossly normal Mental Status: mental status grossly normal
--- NOTE | 2019-12-05 08:30 | DI.RAD_ITS ---
EXAM: XR FOREARM RT CLINICAL HISTORY: fall yesterday, pain/swelling now. TECHNIQUE: 2D digital imaging was performed. COMPARISON: CR,XR XR ELBOW RT COMPLETE from 12/04/2019 CR XR HAND RT COMPLETE from 12/05/2019 FINDINGS: BONES: No acute fracture is present. No bony destructive lesion is seen. Visualized portion of elbow and wrist joints are unremarkable. SOFT TISSUE: Swelling IMPRESSION: Soft tissue swelling. No fracture. DATA REPOSITORY: RADIATION DOSE DELIVERED:
--- NOTE | 2019-12-05 08:30 | DI.RAD_ITS ---
EXAM: XR HAND RT COMPLETE CLINICAL HISTORY: fall yesterday, pain/swelling now. TECHNIQUE: 2D digital imaging was performed. COMPARISON: No exams were available for comparison FINDINGS: There is marked soft tissue swelling over the dorsum of the metacarpal region. There is a question o f a nondisplaced fracture through the 5th metacarpal seen only on the lateral view. There is no evid ence of dislocation. Benign cystic changes are seen in the ulnar styloid. IMPRESSION: Soft tissue swelling. Question of a nondisplaced fracture of the 5th metacarpal. DATA REPOSITORY: RADIATION DOSE DELIVERED:
[2019-12-05] MEDS: Ketorolac 60 MG/2 ML VIAL IM (09:30)
== END 2019-12-05 09:47 | disposition home or self-care (01) ==
PROVIDERS: Emergency Provider Physician Assistant; PCP Physician Assistant
DX: M70.21 Olecranon bursitis, right elbow (principal); W18.39XA Other fall on same level, initial encounter; S62.356A Nondisplaced fracture of shaft of fifth metacarpal bone, right hand, initial encounter for closed fracture
CPT/HCPCS: 26600; 96372; 99282; 73090; 73130; 99281; E0114; J1885; L3809

== ENCOUNTER 2020-03-04 11:08 | Emergency (ER) | payer MEDICAID, SELFPAY ==
[2020-03-04 11:19] VITALS: BP 135/61; PULSE 89; RESP 16; TEMP 38.3; O2SAT 97
--- NOTE | 2020-03-04 11:33 | W.ED.GENAD ---
Discharge Plan Disposition Patient Disposition: HOME Condition: Improving Discharge Details Clinical Impression: Fever, Constipation, Cellulitis and abscess of leg Primary Care Provider: Ivonne Hampton ED Provider: Joesph Pool Home Meds and New Rx's Prescriptions: New cephalexin 500 mg capsule 500 mg PO TID 7 Days Qty: 21 RF: 0 Continued gabapentin 600 MG tablet 1,200 mg PO TID RF: 0 methylphenidate HCl [Ritalin] 20 mg Tablet 20 mg QID RF: 0 duloxetine [Cymbalta] 60 mg Capsule,Delayed Release(Dr/Ec) 60 mg PO DAILY RF: 0 Nexplanon 68 MG implant 1 ea Intradermal DIRECTED RF: 0 acetaminophen [Tylenol Extra Strength] 500 MG tablet 1,000 mg PO Q6H PRN (Reason: Pain) Qty: 20 RF: 0 Discharge Instructions Instructions: Constipation (ED), Cellulitis (ED), Fever in Adults (ED) Additional Instructions: Leave current Band-Aid in place for 24 hours, then may remove and replace once daily. Take Keflex as prescribed. Take Colace at bedtime the next 2-3 nights. (available over the counter) Return to the ER for any acute concerns. Continue your regular medications. Stand Alone Forms: PENDING COVID-19 TESTING Discharge Data Discharge Date/Time-TO BE ENTERED AT DEPARTURE: 03/04/20 14:54 Medical Decision Making 34-year old female presents with 10+ days of left flank pain. Today associated with fever. She arrives with both 38.3, pulse 89, blood pressure 135/61. She is tender to percussion left flank. Differential diagnosis includes pyelonephritis, UTI, colitis. She also has a small area of irritated skin in the popliteal fossa of the right leg which has undergone BKA and for which she wears a prosthesis. IV access, screening blood work and urinalysis obtained. She does not have evidence of UTI, white blood cell count is normal and labs are reassuring. CT of the abdomen obtained: Large amount of stool in the colon. Incidental findings noted. Please see formal report Patient's fever broke. Small area of irritated skin with question developing abscess was anesthetized and needle aspiration performed. Culture was sent to lab and patient to be placed on Keflex. Her normal white blood cell count is reassuring and she repeatedly denies any current IV drug use, therefore making osteomyelitis or endocarditis significantly less likely. I discussed with her indications to return. We will trial Colace at home for her constipation. She is stable and appropriate for discharge. HPI General Mode of arrival: ambulatory. Date/Time Provider Initiated Documentation: 03/04/20 11:17. Limitations to Documentation: no limitations. Information obtained by: patient. History of Present Illness 34 year old F presents to the emergency department with the chief complaint of Left flank pain, described as moderate, Quality is described as dull, and is localized to the back and left. Patient reports no radiation. Patient started experiencing this day(s) and it has been constant. other things that improve symptom(s), (Improved after drinking cranberry juice) No exacerbating factors reported . Patient notes fever/chills; denies cough, loss of appetite, nausea/vomiting and shortness of breath. Patient did receive the following treatments prior to arrival, other (Tylenol) Related Data Home Medications Medication Instructions Recorded Confirmed Nexplanon 1 ea INTRADERMAL DIRECTED 10/30/16 03/04/20 gabapentin 1,200 mg PO TID 03/23/17 03/04/20 acetaminophen [Tylenol Extra 1,000 mg PO Q6H PRN #20 tab-cap 04/21/17 03/04/20 Strength] methylphenidate HCl [Ritalin] 20 mg QID 07/07/19 03/04/20 duloxetine [Cymbalta] 60 mg PO DAILY 12/04/19 03/04/20 cephalexin 500 mg PO TID 7 Days #21 cap 03/04/20 Previous Rx's Medication Instructions Recorded acetaminophen [Tylenol Extra 1,000 mg PO Q6H PRN #20 tab-cap 04/21/17 Strength] cephalexin 500 mg PO TID 7 Days #21 cap 03/04/20 Allergies Allergy/AdvReac Type Severity Reaction Status Date / Time bupropion HCl AdvReac Intermediate Contraindic Unverified 03/04/20 11:24 [From Wellbutrin SR] ated General Stated Complaint: FlankPain CELESTE: 2 Review of Systems Narrative: No cough, eating and drinking normally, denies vaginal discharge or bleeding. States she is not using illicit drugs. 8 systems reviewed and otherwise negative [facility] Medical History (Updated 03/04/20 @ 14:26 by Joesph Pool MD) ADHD, hyperactive-impulsive type (05/14/16) Anemia Anxiety Cardiomyopathy (01/22/16) Depression difficulty bonding with 2nd child. child removed from her custody. was on Wellbutrin but had sz and not on meds at this time. has appt with counselor 03/2015 Hepatitis C infection HSV infection Hx of who one week after . ? HSV or H1N1 infection. Pt has been on prophylaxis with pregnancies. Opioid dependence Subacute endocarditis (01/22/16) MSSA endocarditis January, Surgical History Amputation 12/23/16;[facility]; RIGHT BELOW THE KNEE section (11/24/12) PCD @ 35w. IUGR. [facility]. [id number]. [facility] [place]. Pt arrived in labor and declined SUN. Daisy. Jessica. Family History Mother No problems noted. Father No problems noted. Brother No problems noted. Grandfather No problems noted. Grandfather No problems noted. Grandmother No problems noted. Grandmother No problems noted. Son No problems noted. Son No problems noted. Daughter No problems noted. Daughter No problems noted. Social History Smoking/Tobacco Use Status: Current every day Tobacco Type: cigarettes Smoking risk assessment performed?: Yes Alcohol Intake: former Drug use: Current Sobriety Substance use type: former substance user, crack/cocaine and heroin Do you feel safe at home: Yes Do you feel safe in your relationship?: Yes Exam Narrative Exam Narrative: GEN: awake, alert, oriented 3. Pleasant, well groomed, interactive. HEAD: Normocephalic, atraumatic ENT: Mucous membranes moist, oropharynx unremarkable, External ear exam unremarkable EYES: PERRL, EOMI NECK: Full ROM, no ALLEY, no menigismus CHEST/RESP: Nontender, clear to auscultation bilateral, no wheeze/rhonchi/rales CARDIOVASCULAR: RRR, no murmur, rub rosaline. 2+ Rad pulse bilateral ABDOMEN: Soft, the left flank is tender to percussion, no anterior tenderness, no mass. +Bowel sounds LEG: R BKA with small area irritated skin popliteal fossa Neuro: Grossly normal neurologic exam, conversant, interactive. Psych: Speech fluent, thoughts congruent, affect normal Course Vital Signs Vital signs: Vital Signs Temperature 38.3 C H 03/04/20 11:19 Pulse 89 03/04/20 11:19 Respiratory Rate 16 03/04/20 11:19 Blood Pressure 135/61 03/04/20 11:19 Pulse Oximetry 97 03/04/20 11:19 Temperature 38.3 C H 03/04/20 11:19 Temperature Source Oral 03/04/20 11:19 Pulse 89 03/04/20 11:19 Respiratory Rate 16 03/04/20 11:19 Respiratory Effort Non-Labored 03/04/20 11:19 Blood Pressure 135/61 03/04/20 11:19 Blood Pressure Position Sitting 03/04/20 11:19 Pulse Oximetry 97 03/04/20 11:19 Oxygen Delivery Method Room Air 03/04/20 11:19 Oxygen Flow Rate 0 03/04/20 11:19 Pain Level 10 03/04/20 11:19 Procedures Abscess I/D Site: Lower Extremity Side (if applicable): Right Local Anesthetic: Lidocaine 1% Amount of anesthesia used (mL): 2 Technique: Needle Aspiration Amount of fluid expressed (mL): 1.5
[2020-03-04 11:45] LABS: Bilirubin Negative (Negative); Blood Negative (Negative); Clarity Clear (Clear); Glucose Negative (Negative); Ketones Negative (Negative); Leukocyte Esterase Negative (Negative); Nitrite Negative (Negative); Urobilinogen 0.2 EU/dL (Up TO 0.2)
--- NOTE | 2020-03-04 11:47 | DI.CT_ITS ---
EXAM: CT ABDOMEN PELVIS W CLINICAL HISTORY: L flank pain fever. TECHNIQUE: Imaging Protocol: Axial computed tomography images with coronal and sagittal reformatted images were created and reviewed CONTRAST MATERIAL: Intravenous: Omnipaque 100cc Oral: None FINDINGS: VISUALIZED LUNG BASES: There is a tiny 3 millimeter nodule evident in the lateral basal segment left lower lobe (series 5/image 12). Mild increased markings in the posterior basal segments of left lowe r lobes exhibit benign appearance.. There are no associated pleural effusions ABDOMEN: There is no ascites. LIVER: There are no obvious focal hepatic lesions evident . GALLBLADDER/BILIARY: No obvious gallbladder pathology. CBD is not dilated. PANCREAS: No evidence of pancreatic mass nor dilatation of the pancreatic duct. SPLEEN: Spleen size is upper normal. No intrasplenic lesions evident. Splenic and portal veins are patent. ADRENALS: There are no significant adrenal masses. KIDNEYS:No cysts evident. No solid renal masses. No calculi nor hydronephrosis.. ABDOMINAL AORTA: Abdominal aorta is not enlarged and there is no [id number]-sgik-mfuflb adenopat hy. ABDOMINAL WALL/GI: No evidence of significant anterior abdominal wall hernia. No bowel obstruction. Position of the cecum is quite low sitting on top of the right side of the urinary bladder. There is no evidence of obvious inflammatory process at this level. PELVIS: GI: No evidence of appendicitis.No evidence of sigmoid diverticulitis. LYMPH NODES: There is no intrapelvic nor inguinal adenopathy. REPRODUCTIVE: Uterus and adnexal regions appear age appropriate. Prominent left adnexal veins drain into a prominent left gonadal vein which drains into the left renal vein. URINARY BLADDER: No calculi nor obvious masses evident OSSEOUS: There is no acute appearing fracture of the left transverse process of L3. there is no promi nent hematoma in this region. No other fractures identified nor significant focal renal findings. Sacroiliac joints appear unremarkable. IMPRESSION: 1. There is an acute appearing fracture of the left transverse process of L3. No large surrounding h ematoma evident. No other fractures identified. 2. There are prominent left adnexal veins which drain into a prominent gonadal vein which drains into (as is typically the case) into the left renal vein. This study 1st read by Shankar rivera. My final report called to the emergency room physician Thursday 020 7:50 p.m. RADIATION DOSE DELIVERED: 957.23mGy.cm Total DLP DATA REPOSITORY: All CT scans at this facility are submitted to the National Radiology Data Registry (NRDR) Dose Index Registry (DIR) with the [employer] (A[employer]). RADIATION OPTIMIZATION: All CT scans at this facility use at least one of these dose optimization te chniques: automated exposure control; mA and/or kV adjustment per patient size (includes targeted exa ms where dose is matched to clinical indication); or iterative reconstruction.
[2020-03-04] MEDS: Methylphenidate 10 MG TAB 20 MG PO ×2 (11:56→14:59)
[2020-03-04] MEDS: Gabapentin 400 MG CAP 1200 MG PO (11:56)
[2020-03-04] MEDS: DULoxetine 30 MG CAP 60 MG PO (11:56)
[2020-03-04] MEDS: Ibuprofen 800 MG TAB PO (11:56)
[2020-03-04 12:25] LABS: Abs Immature Grans 0.01 10^3/uL (0.0-0.06); Absolute Basophil Count 0.02 10^3/uL (0.0-0.2); Absolute Eosinophil Count 0.14 10^3/uL (0.0-0.7); Absolute Lymphocyte Count 1.26 10^3/uL (1.2-3.4); Absolute Monocyte Count 0.44 10^3/uL (0.1-0.8); Absolute Neutrophil Count 2.73 10^3/uL (1.2-6.7); Basophils % 0.4; HCT 36.6 % (36.0-46.0); HGB 12.1 g/dL (11.2-15.7); Immature Grans % 0.2; Lymphocytes % 27.4; MCH 29.5 pg (27.0-33.0); MCHC 33.1 % (32.0-36.0); MCV 89.3 fL (80-95); MPV 9.6 fL (8.0-11.0); Monocytes % 9.6; Neutrophils % 59.4; Nucleated RBC 0 %; Platelet Count 163 10^3/uL (130-400); RDW 13.5 % (11.7-14.6); RDW-SD 44.1 fL
[2020-03-04 12:40] LABS: ALT 38 U/L (14-59); AST 32 U/L (15-37); Albumin 3.9 g/dL (3.4-5.0); Alkaline Phosphatase 113 U/L (46-116); Anion Gap 9.7 mmol/L (3-11); BUN 10 mg/dL (7-18); Bilirubin, Total 0.4 mg/dL (0.2-1.0); CO2 25.3 mmol/L (21.0-32.0); CREATININE 0.78 mg/dL (0.55-1.02); Calcium 8.5 mg/dL (8.5-10.1); Chloride 99 mmol/L (98-107); Glucose 88 mg/dL (74-106); Potassium 4.3 mmol/L (3.5-5.1); Sodium 134 mmol/L (136-145); Total Protein 8.1 g/dL (6.4-8.2)
[2020-03-04] MEDS: Normal Saline 1,000 ML 150 ML IV (13:20)
[2020-03-04] MEDS: Omnipaque 350 MG/ML 100 ML BTL IV (13:41)
[2020-03-04] MEDS: Normal Saline - Diluent 50 ML VIAL IV (13:43)
[2020-03-04] MEDS: Normal Saline Flush 10 ML SYR IVP (13:44)
--- NOTE | 2020-03-04 14:11 | DI.VRAD_ITS ---
PROCEDURE INFORMATION: Exam: CT Abdomen And Pelvis With Contrast Exam date and time: 03/04/2020 1:43 PM Age: 34 years old Clinical indication: Other: L flank pain \T\ fever TECHNIQUE: Imaging protocol: Computed tomography of the abdomen and pelvis with intravenous contrast. Radiation optimization: All CT scans at this facility use at least one of these dose optimization techniques: automated exposure control; mA and/or kV adjustment per patient size (includes targeted exams where dose is matched to clinical indication); or iterative reconstruction. Contrast material: OMNIPAQUE 350; Contrast volume: 100 ml; Contrast route: INTRAVENOUS (IV); Other contrast: l flank pain \T\ fever; COMPARISON: CT Abdomen^CAP WITH (Adult) 12/03/2017 2:35 PM FINDINGS: Liver: Normal. No mass. Gallbladder and bile ducts: Normal. No calcified stones. No ductal dilation. Pancreas: Normal. No ductal dilation. Spleen: Normal. No splenomegaly. Adrenal glands: Normal. No mass. Kidneys and ureters: Normal. No hydronephrosis. Stomach and bowel: Large amount of stool in the colon. Appendix: No evidence of appendicitis. Intraperitoneal space: Unremarkable. No free air. No significant fluid collection. Vasculature: Unremarkable. No abdominal aortic aneurysm. Lymph nodes: Unremarkable. No enlarged lymph nodes. Urinary bladder: Cecum is located very low in the pelvis and causes mass effect on right side of the urinary bladder. Reproductive: Unremarkable as visualized. Bones/joints: Dilated left adnexal veins likely rib flex pelvic venous congestion. Soft tissues: Unremarkable. IMPRESSION: 1. No acute findings 2. Incidental dilated left adnexal vein likely reflects pelvic venous congestion. 3. Large amount stool in the colon with very low position of the cecum. Dictated and Authenticated by: Kyleigh Zhu MD. Ordering:RANCHO Pink MD
[2020-03-04 14:58] VITALS: BP 144/91; PULSE 104; RESP 17; TEMP 36.3; O2SAT 98
[2020-03-04] MEDS: Cephalexin 500 MG CAP, 2 CAPS/BTL PO (14:59)
[2020-03-04] MEDS: Docusate Sodium 100 MG CAP PO (14:59)
[2020-03-06 19:29] LABS: COVID-19 RT-PCR UVMMC Result Positive (Negative)
--- NOTE | 2020-03-06 19:51 | NUR.NOTE ---
Nursing Note: Attempted to reach patient. Number listed on file is for patient's father, and other number is not correct. Father will attempt to reach patient and have her call back.
--- NOTE | 2020-03-07 11:03 | ED.FU.B_ITS ---
Patient seen here on 03/04 for fever and back pain and had a Covid swab obtained which resulted positive on 03/06. Attempted to reach patient on the numbers listed on her chart and her father answered and he does not know her whereabouts. Multiple attempts were made to contact patient and unsuccessful. Discussed with Cee Quigley with infection control who advised that we call the [facility]. I discussed with Jhon from [facility] and she was given patient contact information for attempting to inform her of result and contact tracing. Shortly after case discussed with Department of Health, Denisse called the emergency department and she was informed of her results. She has an appointment with her PCP this afternoon. She was advised on social distancing, wearing a mask and over the counter treatment of viral symptoms.
== END 2020-03-04 14:54 | disposition home or self-care (01) ==
PROVIDERS: Emergency Provider Emergency Medicine; PCP Nurse Practitioner Family
DX: U07.1 COVID-19 (principal); K59.00 Constipation, unspecified; L03.115 Cellulitis of right lower limb; L02.415 Cutaneous abscess of right lower limb; Z89.511 Acquired absence of right leg below knee; R93.7 Abnormal findings on diagnostic imaging of other parts of musculoskeletal system
CPT/HCPCS: 10160; 36415; 80053; 81025; 96360; 96361; 99285; U0003; 74177; 81003; 85025; 87070; 87205; 99283; J3490

== ENCOUNTER 2020-09-24 06:22 | Emergency (ER) | payer MEDICAID, SELFPAY ==
[2020-09-24 06:27] VITALS: BP 130/73; PULSE 65; RESP 17; TEMP 36.5; O2SAT 97
--- NOTE | 2020-09-24 06:31 | W.ED.GENAD ---
Discharge Plan Disposition Patient Disposition: HOME Condition: Good Discharge Details Clinical Impression: Cellulitis of hand, right Primary Care Provider: Ivonne Hampton ED Provider: Theodore Leyva Home Meds and New Rx's Prescriptions: New clindamycin HCl 150 mg capsule 150 mg PO TID 10 Days Qty: 30 RF: 0 Continued methadone 10 mg tablet 80 mg PO DAILY RF: 0 dexmethylphenidate [Focalin XR] 40 mg capsule,ER biphasic 50-50 40 mg PO DAILY RF: 0 PNV no.[id number]-dha-epa 27 mg iron-1000 mcg-300 mg capsule 1 cap PO DAILY RF: 0 Narcan 4 mg/actuation spray,non-aerosol 4 mg intranasal Q2M PRNRF: 0 gabapentin 600 MG tablet 1,200 mg PO TID RF: 0 Discharge Instructions Instructions: Cellulitis (ED) Additional Instructions: You have cellulitis of your right hand. Please take the antibiotic clindamycin as directed. The prescription has been sent to your pharmacy on file. Please make sure to be eating yogurt with live culture to prevent any diarrhea. If you notice any worsening of your symptoms, or any new symptoms such as vomiting, diarrhea, fever, chills, shortness of breath, chest pain, numbness, weakness, or fainting , please return immediately to the emergency department for reevaluation. Please follow up with your primary care provider as soon as possible for reassessment and reevaluation. As always, it was a pleasure participating in your medical care today. 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 Patient states that she relapsed 4 to 5 days ago and injected IV drugs into her right hand. Subsequently at that site she has developed redness and swelling. She denies fever or chills. She denies any pain in her arm. She denies any chest pain or shortness of breath. She states that she feels that the needle was cleaned when she used it. She does not want additional help from recovery coaches at this time. No other complaints at this time. No significant pain or tenderness other than mild soreness. Physical exam demonstrates evidence consistent with mild cellulitis over the first metacarpal of the right hand where the patient injected. No abscess or fluctuance at all. Mild swelling of the hand in general, symptoms consistent with mild cellulitis. Compartments are warm and soft otherwise. Good capillary refill, good movement of the fingers. No evidence of systemic infection at this point. We will give clindamycin for treatment as she does have a history of MRSA and doxycycline would be inappropriate during . Discussed red flags for which to return. Did offer to call the recovery coaches however the patient refused this. I have extensively reviewed the treatment plan and discharge instructions with the patient. I have addressed all patient concerns at this time. The patient was made aware of what symptoms to monitor for that would warrant a return to the emergency department. Discussed the plan with the patient, they demonstrate verbal understanding and agreement with our assessment and plan at this time. The documentation in this chart was dictated using [employer] dictation software. Please excuse any dictation errors. HPI General Date/Time Provider Initiated Documentation: 09/24/20 06:24. 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 Patient states that she relapsed 4 to 5 days ago and injected IV drugs into her right hand. Subsequently at that site she has developed redness and swelling. She denies fever or chills. She denies any pain in her arm. She denies any chest pain or shortness of breath. She states that she feels that the needle was cleaned when she used it. She does not want additional help from recovery coaches at this time. No other complaints at this time. No significant pain or tenderness other than mild soreness. Related Data Home Medications Medication Instructions Recorded Confirmed gabapentin 1,200 mg PO TID 03/23/17 03/04/20 naloxone 4 mg/actuation nasal spray 4 mg INTRANASAL Q2M PRN 05/29/20 vits 100-iron 27 mg-folic cap PO DAILY cap 05/29/20 ac 1,000 mcg-dha 300 mg-epa capsule dexmethylphenidate 40 mg 40 mg PO DAILY 08/28/20 capsule,extended release [id number] methadone 10 mg tablet 80 mg PO DAILY tab 08/28/20 clindamycin HCl 150 mg PO TID 10 Days #30 cap 09/24/20 Previous Rx's Medication Instructions Recorded clindamycin HCl 150 mg PO TID 10 Days #30 cap 09/24/20 Allergies Allergy/AdvReac Type Severity Reaction Status Date / Time bupropion HCl AdvReac Intermediate Contraindic Unverified 09/24/20 06:38 [From Wellbutrin SR] ated General CELESTE: 2 Review of Systems All systems reviewed & are unremarkable except as noted in HPI and below PFSH Medical History ADHD ADHD, hyperactive-impulsive type (05/14/16) Alcohol abuse Amputation of right foot Anemia Anxiety Cardiomyopathy (01/22/16) COVID-19 virus infection Depression difficulty bonding with 2nd child. child removed from her custody. was on Wellbutrin but had sz and not on meds at this time. has appt with counselor 03/2015 Effusion, right knee Herpes, vulvar History of depression History of oligohydramnios in prior , currently in third trimester (01/11/15) HSV infection Hx of infant who one week after . ? HSV or H1N1 infection. Pt has been on prophylaxis with pregnancies. Hx of cocaine abuse Opioid dependence Paresthesia of both hands Personality disorder examination or test, positive result PTSD (post-traumatic stress disorder) Smoker Subacute endocarditis (01/22/16) MSSA endocarditis January, Surgical History Amputation 12/23/16;[facility]; RIGHT BELOW THE KNEE section (11/24/12) PCD @ 35w. IUGR. [facility]. [id number]. [facility] [place]. 03/26/15 RCD. Pt arrived in labor and declined SUN. Chad Lopez. Family History Mother No problems noted. Father No problems noted. Brother No problems noted. Grandfather No problems noted. Grandfather No problems noted. Grandmother No problems noted. Grandmother No problems noted. Son No problems noted. Son No problems noted. Daughter No problems noted. Daughter No problems noted. Social History Smoking/Tobacco Use Status: Current every day Tobacco Type: cigarettes Smoking risk assessment performed?: Yes Alcohol Intake: former Drug use: Current Sobriety Substance use type: former substance user, crack/cocaine and heroin Do you feel safe at home: Yes Do you feel safe in your relationship?: Yes History History 4 Para 4 Hx # Term Pregnancies Multiple births Hx # Pregnancies Ectopic pregnancies AB induced Hx Number of Living Children 3 AB spontaneous Exam Narrative Exam Narrative: 1.Const: Well-nourished, Well-developed, appearing stated age 2.Eyes: PERRL, no conjunctival injection, and symmetrical lids. 3.ENT: Atraumatic external nose and ears. Moist MM. Neck: Symmetric, trachea midline, No thyromegaly. 4.CVS: +S1/S2, No murmurs or gallops. Peripheral pulses 2+ and equal in all extremities. Brisk capillary refill in all extremities. 5.RESP: Unlabored respiratory effort. Clear to auscultation bilaterally. No wheezes rales or rhonchi 6.GI: Soft, Nontender/Nondistended, No hepatosplenomegaly. No guarding or rebound. 7.MSK: Right hand demonstrates mild edema, mild redness over the first metacarpal. Minimal tenderness there. Mild swelling is noted. No significant pain with movement of the joints. Good capillary refill in all fingers, good sensation throughout. Patient is able to move fingers well. No red streaking up the arm 8.Skin: Warm, Dry. Please see msc 9.Neuro: shift commander II-XII grossly intact. Sensation grossly intact, no focal neurologic deficits. 10.Psych: (AAO) x3. Appropriate mood and affect
[2020-09-24] MEDS: Clindamycin 150 MG CAP 450 MG PO (06:46)
== END 2020-09-24 06:50 | disposition home or self-care (01) ==
PROVIDERS: Emergency Provider Student in an Organized Health Care Education/Training Program; PCP Nurse Practitioner Family
DX: L03.113 Cellulitis of right upper limb (principal); Z33.1 Pregnant state, incidental
CPT/HCPCS: 99283

== ENCOUNTER 2020-10-04 11:16 | Emergency (ER) | payer MEDICAID, SELFPAY ==
[2020-10-04 11:23] VITALS: BP 129/67; PULSE 68; RESP 16; TEMP 36.2; O2SAT 100
--- NOTE | 2020-10-04 11:30 | DI.RAD_ITS ---
Exam(s) XR WRIST LT COMPLETE EXAM: XR WRIST LT COMPLETE CLINICAL HISTORY: eval for fb. TECHNIQUE: 2D digital imaging was performed. COMPARISON: CR XR WRIST LT COMPLETE from 11/25/2018 FINDINGS: There is a subtle nondisplaced fracture of the tip of the ulnar styloid. No distal radius fracture s een. No carpal dislocation. No radiopaque foreign body IMPRESSION: Nondisplaced fracture of the ulnar styloid tip. DATA REPOSITORY: RADIATION DOSE DELIVERED:
--- NOTE | 2020-10-04 11:45 | DI.US_ITS ---
Exam(s) US UPPER EXTREMITY VENOUS LT EXAM: US UPPER EXTREMITY VENOUS LT CLINICAL HISTORY: ivda with swelling and pain , look for dvt, and ab TECHNIQUE: GRAYSCALE, COLOR, DOPPLER IMAGING OF THE VENOUS SYSTEM OF THE UPPER EXTREMITY-BILATERAL COMPARISON: US US upper extremity venous RT from 12/07/2017 FINDINGS: This is a negative study with no evidence of superficial phlebitis nor intraluminal thrombus in the o ther interrogated upper extremity veins. Basilic vein: Patent. Normal color-flow and normal compression and augmentation properties. Brachial vein(s):Patent. Normal color flow. Normal compression and augmentation properties. Cephalic vein:Not visualized Axillary vein: Patent. Normal color flow. Normal compression and augmentation properties. Visualized subclavian vein: Patent. No obvious intraluminal thrombus. IMPRESSION: 1. No evidence of venous thrombosis in the left upper extremity. 2. No abnormal fluid collection. DATA REPOSITORY:
--- NOTE | 2020-10-04 12:04 | NUR.NOTE ---
2 rings removed from left hand--1 came off with surgilube and 1 had to be clipped off.Nursing Note:
[2020-10-04] MEDS: Gabapentin 400 MG CAP PO (12:19)
--- NOTE | 2020-10-04 12:32 | ED.GENADUL_ITS ---
Discharge Plan Disposition Patient Disposition: AGAINST MEDICAL ADVICE Condition: Serious Discharge Details Clinical Impression: Cellulitis Primary Care Provider: Ivonne Hampton ED Provider: Patricia Pereira Home Meds and New Rx's Prescriptions: New clindamycin HCl 150 mg capsule 450 mg PO TID Qty: 90 RF: 0 Saccharomyces boulardii [Florastor] 250 mg capsule 250 mg PO BID Qty: 14 RF: 0 No Action methadone 10 mg tablet 80 mg PO DAILY RF: 0 dexmethylphenidate [Focalin XR] 40 mg capsule,ER biphasic 50-50 40 mg PO DAILY RF: 0 PNV no.[id number] 27 mg iron-1000 mcg-300 mg capsule 1 cap PO DAILY RF: 0 Narcan 4 mg/actuation spray,non-aerosol 4 mg intranasal Q2M PRNRF: 0 gabapentin 600 MG tablet 1,200 mg PO TID RF: 0 Discharge Instructions Instructions: Cellulitis (ED) Medical Decision Making Patient receiving x-ray and ultrasound, initial plan was to order CT scan ricardo gan patient is IV vancomycin ordered, patient has been on Clinda for 1 week with persistent swelling and pain, she will need admission to the hospital for IV antibiotics There is no evidence of septic joint, she has limited range of motion secondary to swelling, she does not have significant pain with range of motion X-ray does not show acute abnormality or foreign body Ultrasound does not show DVT or evidence of abscess Recommendation was for patient to be admitted and I did order blood cultures and lab Patient is alert, oriented, of decisional capacity, initially she agreed to stay, however after discussion regarding risks of losing limb and further decompensation, she has declined and has left AGAINST MEDICAL ADVICE I did send a extended course of her clindamycin to her pharmacy She is encouraged to return at the earliest ability she did exhibit comprehension to make this decision at time of my evaluation HPI General Mode of arrival: ambulatory . Date/Time Provider Initiated Documentation: 10/04/20 11:17 . Limitations to Documentation: no limitations . Information obtained by: patient . HPI Narrative: This 35-year-old female presents with an left wrist pain and swelling. Patient does note 1 week ago had a fall as needed for rule out and injected heroin a week ago. She is been on antibiotics for the past week for suspected cellulitis not improving. She states she had subjective fevers. She is , she got out last week. She mentions approximately 3 weeks. She denies any chest pain or shortness of breath. She denies dizziness or weakness. She has been sober since the last of episode of abuse reportedly in using methadone at this time. She denies any additional complaints at this time. Related Data Home Medications Medication Instructions Recorded Confirmed gabapentin 1,200 mg PO TID 03/23/17 10/04/20 naloxone 4 mg/actuation nasal spray 4 mg INTRANASAL Q2M PRN 05/29/20 10/04/20 vits 100-iron 27 mg-folic 1 cap PO DAILY cap 05/29/20 10/04/20 ac 1,000 mcg-dha 300 mg-epa capsule dexmethylphenidate 40 mg 40 mg PO DAILY 08/28/20 10/04/20 capsule,extended release [id number] methadone 10 mg tablet 80 mg PO DAILY tab 08/28/20 10/04/20 Saccharomyces boulardii [Florastor] 250 mg PO BID #14 cap 10/04/20 clindamycin HCl 450 mg PO TID #90 cap 10/04/20 Previous Rx's Medication Instructions Recorded Saccharomyces boulardii [Florastor] 250 mg PO BID #14 cap 10/04/20 clindamycin HCl 450 mg PO TID #90 cap 10/04/20 Allergies Allergy/AdvReac Type Severity Reaction Status Date / Time bupropion HCl AdvReac Intermediate Contraindic Unverified 10/04/20 11:29 [From Wellbutrin SR] ated General Stated Complaint: Cellulitis CELESTE: 3 Review of Systems All systems reviewed & are unremarkable except as noted in HPI and below [facility] Medical History ADHD ADHD, hyperactive-impulsive type (05/14/16) Alcohol abuse Amputation of right foot Anemia Anxiety Cardiomyopathy (01/22/16) COVID-19 virus infection Depression difficulty bonding with 2nd child. child removed from her custody. was on Wellbutrin but had sz and not on meds at this time. has appt with counselor 03/2015 Effusion, right knee Herpes, vulvar History of depression History of oligohydramnios in prior , currently in third trimester (01/11/15) HSV infection Hx of who one week after . ? HSV or H1N1 infection. Pt has been on prophylaxis with pregnancies. Hx of cocaine abuse Opioid dependence Paresthesia of both hands Personality disorder examination or test, positive result PTSD (post-traumatic stress disorder) Smoker Subacute endocarditis (01/22/16) MSSA endocarditis January, Surgical History Amputation 12/23/16;[facility]; RIGHT BELOW THE KNEE section (11/24/12) PCD @ 34w. [facility]. [facility]. [id number]. [facility] [place]. Pt arrived in labor and declined SUN. F. Jessica. Family History Mother No problems noted. Father No problems noted. Brother No problems noted. Grandfather No problems noted. Grandfather No problems noted. Grandmother No problems noted. Grandmother No problems noted. Son No problems noted. Son No problems noted. Daughter No problems noted. Daughter No problems noted. Social History Smoking/Tobacco Use Status: Current every day Tobacco Type: cigarettes Smoking risk assessment performed?: Yes Alcohol Intake: former Drug use: Current Sobriety Substance use type: former substance user, crack/cocaine and heroin Do you feel safe at home: Yes Do you feel safe in your relationship?: Yes History History 4 Para 4 Hx # Term Pregnancies Multiple births Hx # Pregnancies Ectopic pregnancies AB induced Hx Number of Living Children 3 AB spontaneous Exam Const General: cooperative Eyes Pupils: PERRL Resp Effort & Inspection: normal respiratory effort Cardio Rate: regular rate Skin Other: Cellulitis noted to left upper extremity, significant swelling from mid forearm into the hand, lymphangitis surrounding thumb, diminished range of motion, no evidence of septic arthritis, neurovascularly intact No obvious [place] lesions Neuro General: patient alert and patient oriented x3 Course Vital Signs Vital signs: Vital Signs Temperature 36.2 C L 10/04/20 11:23 Pulse 68 10/04/20 11:23 Respiratory Rate 16 10/04/20 11:23 Blood Pressure 129/67 10/04/20 11:23 Pulse Oximetry 100 10/04/20 11:23 Temperature 36.2 C L 10/04/20 11:23 Temperature Source Skin 10/04/20 11:23 Pulse 68 10/04/20 11:23 Respiratory Rate 16 10/04/20 11:23 Respiratory Effort Non-Labored 10/04/20 11:23 Blood Pressure 129/67 10/04/20 11:23 Blood Pressure Position Sitting 10/04/20 11:23 Pulse Oximetry 100 10/04/20 11:23 Oxygen Delivery Method Room Air 10/04/20 11:23 Oxygen Flow Rate 0 10/04/20 11:23 Pain Level 8 10/04/20 11:23 Lab/Test Results Lab/Test Results: 10/04/20 11:44 Blood Blood Culture - Pending 10/04/20 11:44 Blood Blood Culture - Pending Laboratory Tests Range/Units 10/04/20 12:09 Urine HCG, Qual Cancelled
== END 2020-10-04 13:31 | disposition left against medical advice (07) ==
PROVIDERS: Emergency Provider Physician Assistant; PCP Nurse Practitioner Family
DX: L03.114 Cellulitis of left upper limb (principal); S52.612A Displaced fracture of left ulna styloid process, initial encounter for closed fracture; W18.39XA Other fall on same level, initial encounter; Z53.29 Procedure and treatment not carried out because of patient's decision for other reasons; Z33.1 Pregnant state, incidental
CPT/HCPCS: 80053; 85027; 85652; 87040; 99284; 73110; 81025; 86140; 93971

== ENCOUNTER 2020-10-22 11:06 | Emergency (ER) | payer MEDICAID, SELFPAY ==
[2020-10-22 11:10] VITALS: BP 123/51; PULSE 64; RESP 18; TEMP 36.5; O2SAT 100
--- NOTE | 2020-10-22 11:23 | ED.GENADUL_ITS ---
Discharge Plan Disposition Patient Disposition: HOME Condition: Stable Discharge Details Clinical Impression: Throat pain in adult Primary Care Provider: Ivonne Hampton ED Provider: Jeannette Duffy Home Meds and New Rx's Prescriptions: No Action methadone 10 mg tablet 80 mg PO DAILY RF: 0 dexmethylphenidate [Focalin XR] 40 mg capsule,ER biphasic 50-50 40 mg PO DAILY RF: 0 PNV no.[id number] 27 mg iron-1000 mcg-300 mg capsule 1 cap PO DAILY RF: 0 Narcan 4 mg/actuation spray,non-aerosol 4 mg intranasal Q2M PRNRF: 0 gabapentin 600 MG tablet 1,200 mg PO TID RF: 0 Saccharomyces boulardii [Florastor] 250 mg capsule 250 mg PO BID Qty: 14 RF: 0 Discharge Instructions Instructions: Benzocaine/Menthol (By mouth), Pharyngitis (ED) Additional Instructions: Use Hurricaine spray every 3-4 hours as needed for pain. Take Tylenol every 4-6 hours as needed. Gargle with warm salt water. Do not use marijuana during . Follow up with primary care provider in 3-5 days. Return to ED sooner if any worsening or concerns. Increase oral fluids. Referrals: Ivonne Hampton [Primary Care Provider] - Medical Decision Making 35-year-old female presents to the ER chief complaint of throat pain. Patient states that she was smoking marijuana pipe last night and burned the back of her throat. Patient is reporting trouble swallowing. She is speaking in full sentences no stridor. Patient is . Hurricaine spray and 10 mg Dexamethasone ordered PO. Patient given Hurricaine spray to go instructed on use, verbalized understanding. Patient remained hemodynamically stable throughout stay. HPI General Mode of arrival: ambulatory . Date/Time Provider Initiated Documentation: 10/22/20 11:09 . Limitations to Documentation: no limitations . Information obtained by: patient and RN notes reviewed . HPI Narrative: 35-year-old female presents to the ER chief complaint of throat pain. Patient states that she was smoking marijuana pipe last night and burned the back of her throat. Patient is reporting trouble swallowing. She is speaking in full sentences no stridor. Patient is . Related Data Home Medications Medication Instructions Recorded Confirmed gabapentin 1,200 mg PO TID 03/23/17 10/22/20 naloxone 4 mg/actuation nasal spray 4 mg INTRANASAL Q2M PRN 05/29/20 10/22/20 vits 100-iron 27 mg-folic 1 cap PO DAILY cap 05/29/20 10/22/20 ac 1,000 mcg-dha 300 mg-epa capsule dexmethylphenidate 40 mg 40 mg PO DAILY 08/28/20 10/22/20 capsule,extended release [id number] methadone 10 mg tablet 80 mg PO DAILY tab 08/28/20 10/22/20 Saccharomyces boulardii [Florastor] 250 mg PO BID #14 cap 10/04/20 10/22/20 Previous Rx's Medication Instructions Recorded Saccharomyces boulardii [Florastor] 250 mg PO BID #14 cap 10/04/20 Allergies Allergy/AdvReac Type Severity Reaction Status Date / Time bupropion HCl AdvReac Intermediate Contraindic Unverified 10/22/20 11:16 [From Wellbutrin SR] ated General Stated Complaint: Burn CELESTE: 3 Review of Systems All systems reviewed & are unremarkable except as noted in HPI and below ENT Ears, Nose, Mouth, and Throat: Reports as per HPI, Reports dysphagia and Reports sore throat Gastrointestinal Gastrointestinal: Reports dysphagia PFSH Medical History ADHD ADHD, hyperactive-impulsive type (05/14/16) Alcohol abuse Amputation of right foot Anemia Anxiety Cardiomyopathy (01/22/16) COVID-19 virus infection Depression difficulty bonding with 2nd child. child removed from her custody. was on Wellbutrin but had sz and not on meds at this time. has appt with counselor 03/2015 Effusion, right knee Herpes, vulvar History of depression History of oligohydramnios in prior , currently in third trim darrick (01/11/15) HSV infection Hx of infant who one week after . ? HSV or H1N1 infection. Pt has been on prophylaxis with pregnancies. Hx of cocaine abuse Opioid dependence Paresthesia of both hands Personality disorder examination or test, positive result PTSD (post-traumatic stress disorder) Smoker Subacute endocarditis (01/22/16) MSSA endocarditis January, Surgical History Amputation 12/23/16;[facility]; RIGHT BELOW THE KNEE section (11/24/12) PCD @ 35w. IUGR. NRFH. [id number][place] [facility] [place]. Pt arrived in labor and declined SUN. Chad Lopez. Family History Mother No problems noted. Father No problems noted. Brother No problems noted. Grandfather No problems noted. Grandfather No problems noted. Grandmother No problems noted. Grandmother No problems noted. Son No problems noted. Son No problems noted. Daughter No problems noted. Daughter No problems noted. Social History Smoking/Tobacco Use Status: Current every day Tobacco Type: cigarettes Smoking risk assessment performed?: Yes Alcohol Intake: former Substance use type: former substance user, marijuana, crack/cocaine and heroin Do you feel safe at home: Yes Do you feel safe in your relationship?: Yes History History 4 Para 4 Hx # Term Pregnancies Multiple births Hx # Pregnancies Ectopic pregnancies AB induced Hx Number of Living Children 3 AB spontaneous Exam Narrative Exam Narrative: Constitutional: Alert and oriented x3. Appears stated age. Normal body habitus. Head: Normocephalic, no trauma. Eyes: Pupils PERRLA, Red reflex noted, EOM's intact. Eyelids symmetrical without lesions, discharge, or swelling. ENT: Bilateral TM's WNL, External ear normal to inspection, no mastoid TTP, swelling, or erythema, Nasal turbinates WNL, no nasal discharge. Normal dentition, Posterior pharynx erythemic, uvula midline, no exudate. No stridor. Chest: RRR, Normal S1, S2, distal pulses intact. Resp: Lungs clear to auscultation bilaterally, no wheezes, rales, or rhonchi. Musculoskeletal: Normal gait, 5/5 strength to all four extremities. Skin: No suspicious rashes or lesions. Capillary refill less than 2 sec. Neurologic: Cranial nerves II-XII intact. Alert and oriented x 3. DTR's intact. Hematologic/Lymphatic: No ecchymosis, no lymphadenopathy. Course Vital Signs Vital signs: Vital Signs Temperature 36.5 C 10/22/20 11:10 Pulse 64 10/22/20 11:10 Respiratory Rate 18 10/22/20 11:10 Blood Pressure 123/51 L 10/22/20 11:10 Pulse Oximetry 100 10/22/20 11:10 Temperature 36.5 C 10/22/20 11:10 Temperature Source Temporal Artery Scan 10/22/20 11:10 Pulse 64 10/22/20 11:10 Respiratory Rate 18 10/22/20 11:10 Respiratory Effort Non-Labored 10/22/20 11:15 Blood Pressure 123/51 L 10/22/20 11:10 Blood Pressure Position Sitting 10/22/20 11:10 Pulse Oximetry 100 10/22/20 11:10 Oxygen Delivery Method Room Air 10/22/20 11:10 Oxygen Flow Rate 0 10/22/20 11:10 Pain Level 9 10/22/20 11:10
[2020-10-22] MEDS: Benzocaine 20% 60 ML CAN TP (11:29)
[2020-10-22] MEDS: Dexamethasone 10 MG/ML VIAL PO (11:30)
== END 2020-10-22 11:38 | disposition home or self-care (01) ==
LOC: ER 13:47
PROVIDERS: Emergency Provider Registered Nurse Emergency; PCP Nurse Practitioner Family
DX: R07.0 Pain in throat (principal); R13.10 Dysphagia, unspecified; Z3A.16 16 weeks gestation of pregnancy; O99.322 Drug use complicating pregnancy, second trimester; F12.10 Cannabis abuse, uncomplicated
CPT/HCPCS: 99283; J1100

== ENCOUNTER 2020-12-05 08:01 | Emergency (ER) | payer MEDICAID, SELFPAY ==
[2020-12-05 08:05] VITALS: BP 106/62; PULSE 80; RESP 18; TEMP 36.3; O2SAT 96
--- NOTE | 2020-12-05 08:45 | DI.RAD_ITS ---
Exam(s) XR ANKLE LT COMPLETE XR FOOT LT LIMITED EXAM: XR ANKLE LT COMPLETE and XR foot LT CLINICAL HISTORY: Left ankle foot pain swelling TECHNIQUE: 2D digital imaging was performed of the left ankle and foot. Six images were obtained. AP, lateral and oblique views were obtained. COMPARISON: No previous for comparison. FINDINGS: BONES: No acute fracture is present. No bony destructive lesion is seen. JOINTS:The ankle mortise is normally aligned. SOFT TISSUE: There is a 1 cm linear density in the soft tissues lateral to the cuboid with associated soft tissue swelling. IMPRESSION: 1. 1 cm linear foreign body in the soft tissues lateral to the cuboid. 2. Soft tissue swelling in the lateral hindfoot. DATA REPOSITORY: RADIATION DOSE DELIVERED:
--- NOTE | 2020-12-05 08:55 | ED.GENADUL_ITS ---
Discharge Plan Disposition Patient Disposition: HOME Condition: Stable Discharge Details Clinical Impression: Foreign body in foot, left Primary Care Provider: Ivonne Hampton ED Provider: Jeannette Duffy Home Meds and New Rx's Prescriptions: No Action methadone 10 mg tablet 90 mg PO DAILY RF: 0 dexmethylphenidate [Focalin XR] 40 mg capsule,ER biphasic 50-50 40 mg PO DAILY RF: 0 PNV no.[id number]-epa 27 mg iron-1000 mcg-300 mg capsule 1 cap PO DAILY RF: 0 Narcan 4 mg/actuation spray,non-aerosol 4 mg intranasal Q2M PRNRF: 0 gabapentin 600 MG tablet 1,200 mg PO TID RF: 0 mirtazapine 30 mg tablet 30 mg PO QHS RF: 0 Saccharomyces boulardii [Florastor] 250 mg capsule 250 mg PO BID Qty: 14 RF: 0 Discharge Instructions Instructions: Soft Tissue Foreign Body (ED) Additional Instructions: Please follow-up with orthopedics as discussed. Do not pick at area. Please return sooner or be seen sooner for any signs of infection including increased redness, swelling, drainage, chills or fever. Rest, ice, compression, elevation. Please take Tylenol with food every 4-6 hours as needed for pain and swelling. Referrals: Jj Ortiz MD [ [facility] STAFF PHYSICIAN] - 3 days Medical Decision Making 35-year-old female with a past medical history of opioid dependence disorder, cardiomyopathy, depression, ADHD, mitral regurgitation and a right below the knee amputation who is 5 months presents to the ER with left foot swelling and pain which she has noticed over the last week. She denies any known injury. She does have some ecchymosis noted on the lateral aspect of the foot. Foot is not erythemic or warm does not appear cellulitic. She denies any current drug use. She is on methadone daily. heart tones were obtained by triage nurse upon arrival and are within normal limits. She did not take any Tylenol before arrival. CLINICAL HISTORY: Left ankle foot pain swelling TECHNIQUE: 2D digital imaging was performed of the left ankle and foot. Six images were obtained. AP, lateral and oblique views were obtained. COMPARISON: No previous for comparison. FINDINGS: BONES: No acute fracture is present. No bony destructive lesion is seen. JOINTS:The ankle mortise is normally aligned. SOFT TISSUE: There is a 1 cm linear density in the soft tissues lateral to the cuboid with associated soft tissue swelling. IMPRESSION: 1. 1 cm linear foreign body in the soft tissues lateral to the cuboid. 2. Soft tissue swelling in the lateral hindfoot. 1025: Discussed x-ray results with patient who verbalizes understanding. She is unsure of how long this may have been in there does appear to be a possible needle. She reports it may have been in there for months and months. I did discuss the options to follow-up with Ortho versus attempting to obtain foreign body here in the department. She opted to follow-up with Ortho, Ortho paged. 1100: Spoke with Dr. Ortiz who reports that she would not be a candidate for removal in the ER or by procedure due to . Patient will be able to follow-up with Ortho to discuss possible procedures for foreign body removal after she is not anymore. At this time there is no signs of infection that I can see hourly. Foot is not warm or red. She denies any fever chills. I do feel like this is a reasonable plan of care. I did discuss strict return instructions and follow-up with patient. This text was generated using [employer] dictation system, please disregard any oddities of phrase or misspellings. HPI General Mode of arrival: ambulatory . Date/Time Provider Initiated Documentation: 12/05/20 08:46 . Limitations to Documentation: no limitations . Information obtained by: patient, RN notes reviewed and old records reviewed . HPI Narrative: 35-year-old female with a past medical history of opioid dependence disorder, cardiomyopathy, depression, ADHD, mitral regurgitation and a right below the knee amputation who is 5 months presents to the ER with left foot swelling and pain which she has noticed over the last week. She denies any known injury. She does have some ecchymosis noted on the lateral aspect of the foot. Foot is not erythemic or warm does not appear cellulitic. She denies any current drug use. She is on methadone daily. heart tones were obtained by triage nurse upon arrival and are within normal limits. She did not take any Tylenol before arrival. Related Data Home Medications Medication Instructions Recorded Confirmed gabapentin 1,200 mg PO TID 03/23/17 12/05/20 naloxone 4 mg/actuation nasal spray 4 mg INTRANASAL Q2M PRN 05/29/20 12/05/20 vits 100-iron 27 mg-folic 1 cap PO DAILY cap 05/29/20 10/22/20 ac 1,000 mcg-dha 300 mg-epa capsule dexmethylphenidate 40 mg 40 mg PO DAILY 08/28/20 12/05/20 capsule,extended release [id number] methadone 10 mg tablet 90 mg PO DAILY tab 08/28/20 12/05/20 Saccharomyces boulardii [Florastor] 250 mg PO BID #14 cap 10/04/20 10/22/20 mirtazapine 30 mg PO QHS 12/05/20 12/05/20 Previous Rx's Medication Instructions Recorded Saccharomyces boulardii [Florastor] 250 mg PO BID #14 cap 10/04/20 Allergies Allergy/AdvReac Type Severity Reaction Status Date / Time bupropion HCl AdvReac Intermediate Contraindic Unverified 12/05/20 08:09 [From Wellbutrin SR] ated General Stated Complaint: Orthopedic CELESTE: 3 Review of Systems All systems reviewed & are unremarkable except as noted in HPI and below Constitutional Constitutional: Denies chills and Denies fever(s) Musculoskeletal Musculoskeletal: Reports as per HPI, Denies deformity, Reports arthralgias, Reports joint swelling (Left foot swelling) and Denies loss of height [facility] Medical History ADHD ADHD, hyperactive-impulsive type (05/14/16) Alcohol abuse Amputation of right foot Anemia Anxiety Cardiomyopathy (01/22/16) COVID-19 virus infection Depression difficulty bonding with 2nd child. child removed from her custody. was on Wellbutrin but had sz and not on meds at this time. has appt with counselor 03/2015 Effusion, right knee Herpes, vulvar History of depression History of oligohydramnios in prior , currently in third trimester (01/11/15) HSV infection Hx of who one week after . ? HSV or H1N1 infection. Pt has been on prophylaxis with pregnancies. Hx of cocaine abuse Opioid dependence Paresthesia of both hands Personality disorder examination or test, positive result PTSD (post-traumatic stress disorder) Smoker Subacute endocarditis (01/22/16) MSSA endocarditis January, Surgical History Amputation 10/17/17;[facility]; RIGHT BELOW THE KNEE section (11/24/12) PCD @ 35w. IUGR. NRFH. [id number]. [facility] [place]. 03/26/15 RCD. Pt arrived in labor and declined SUN. Chad Jessica. Family History Mother No problems noted. Father No problems noted. Brother No problems noted. Grandfather No problems noted. Grandfather No problems noted. Grandmother No problems noted. Grandmother No problems noted. Son No problems noted. Son No problems noted. Daughter No problems noted. Daughter No problems noted. Social History Smoking/Tobacco Use Status: Current every day Tobacco Type: cigarettes Smoking risk assessment performed?: Yes Alcohol Intake: former Drug use: Current Sobriety Substance use type: former substance user, marijuana, crack/cocaine and heroin Do you feel safe at home: Yes Do you feel safe in your relationship?: Yes History History 4 Para 4 Hx # Term Pregnancies Multiple births Hx # Pregnancies Ectopic pregnancies AB induced Hx Number of Living Children 3 AB spontaneous Exam Narrative Exam Narrative: Constitutional: Alert and oriented x3. Appears stated age. Normal body habitus. Head: Normocephalic, no trauma. Eyes: Pupils PERRLA, Red reflex noted, EOM's intact. Eyelids symmetrical without lesions, discharge, or swelling. ENT: Bilateral TM's WNL, External ear normal to inspection, no mastoid TTP, swelling, or erythema, Nasal turbinates WNL, no nasal discharge. Normal dentition, Posterior pharynx WNL, no exudate. Chest: RRR, Normal S1, S2, distal pulses intact. Resp: Lungs clear to auscultation bilaterally, no wheezes, rales, or rhonchi. Abdomen: Consistent with 5-month gestation. Soft nontender to palpation. Musculoskeletal: Right below the knee amputation with a prosthetic leg. Left foot is swollen dorsal pedal pulses intact. Cap refill less than 2 seconds distally. Does have some ecchymosis laterally to the foot and generalized swelling to the foot and ankle. No obvious deformity no erythema or warmth. Skin: Capillary refill less than 2 sec. Neurologic: Cranial nerves II-XII intact. Alert and oriented x 3. DTR's intact. Hematologic/Lymphatic: No ecchymosis, no lymphadenopathy. Course Vital Signs Vital signs: Vital Signs Temperature 36.3 C L 12/05/20 08:05 Pulse 80 12/05/20 08:05 Respiratory Rate 18 12/05/20 08:05 Blood Pressure 106/62 12/05/20 08:05 Pulse Oximetry 96 12/05/20 08:05 Temperature 36.3 C L 12/05/20 08:05 Temperature Source Temporal Artery Scan 12/05/20 08:05 Pulse 80 12/05/20 08:05 Respiratory Rate 18 12/05/20 08:05 Respiratory Effort Non-Labored 12/05/20 08:12 Blood Pressure 106/62 12/05/20 08:05 Blood Pressure Position Sitting 12/05/20 08:05 Pulse Oximetry 96 12/05/20 08:05 Oxygen Delivery Method Room Air 12/05/20 08:05 Oxygen Flow Rate 0 12/05/20 08:05 Pain Level 8 12/05/20 08:05
[2020-12-05] MEDS: Acetaminophen 325 MG TAB PO (09:24)
[2020-12-05] MEDS: Gabapentin 300 MG CAP 600 MG PO (10:40)
[2020-12-05 11:07] VITALS: BP 107/58; PULSE 65; RESP 18; O2SAT 98
== END 2020-12-05 11:09 | disposition home or self-care (01) ==
PROVIDERS: Emergency Provider Registered Nurse Emergency; PCP Nurse Practitioner Family
DX: S91.342A Puncture wound with foreign body, left foot, initial encounter (principal); M79.89 Other specified soft tissue disorders; W45.8XXA Other foreign body or object entering through skin, initial encounter
CPT/HCPCS: 99284; 73610; 73620; 99283

== ENCOUNTER 2021-01-04 03:32 | Outpatient (CLI) | payer MEDICAID, SELFPAY ==
[2021-01-04 08:39] LABS: Abs Immature Grans 0.02 10^3/uL (0.0-0.06); Absolute Basophil Count 0.02 10^3/uL (0.0-0.2); Absolute Eosinophil Count 0.21 10^3/uL (0.0-0.7); Absolute Lymphocyte Count 1.61 10^3/uL (1.2-3.4); Absolute Monocyte Count 0.34 10^3/uL (0.1-0.8); Absolute Neutrophil Count 5.57 10^3/uL (1.2-6.7); Basophils % 0.3; Eosinophils % 2.7; HCT 35.6 % (36.0-46.0); HGB 11.8 g/dL (11.2-15.7); Immature Grans % 0.3; Lymphocytes % 20.7; MCH 29.4 pg (27.0-33.0); MCHC 33.1 % (32.0-36.0); MCV 88.8 fL (80-95); MPV 9.6 fL (8.0-11.0); Monocytes % 4.4; Neutrophils % 71.6; Nucleated RBC 0 %; Platelet Count 191 10^3/uL (130-400); RBC 4.01 10^6/uL (3.93-5.22); RDW 13.6 % (11.7-14.6); RDW-SD 44.5 fL; WBC 7.77 10^3/uL (4.4-10.8)
[2021-01-05 16:44] LABS: Syphilis Total Ab w/Reflex Nonreactive (Nonreactive)
[2021-01-07 09:57] LABS: Rubella IgG Ab (UVM) Positive (See Note)
[2021-01-07 10:58] LABS: Hepatitis B Surface Ag Negative (Negative)
[2021-01-07 11:52] LABS: HIV-1/2 Ag & Ab Screen Negative (Negative)
[2021-01-07 12:29] LABS: HCV RNA Detection Quantitative 276000 IU/mL (Undetected); HCV RNA Qualitative Detected (Undetected)
== END 2021-01-04 03:33 | disposition home or self-care (01) ==
LOC: LBO 03:32
PROVIDERS: PCP Nurse Practitioner Family; Visit Provider Nurse Practitioner Women's Health
DX: O09.522 Supervision of elderly multigravida, second trimester (principal); Z87.898 Personal history of other specified conditions
CPT/HCPCS: 36415; 86850; 86900; 86901; 87340; 87389; 87522; 85025; 86762; 86780

== ENCOUNTER 2021-02-20 15:14 | Emergency (ER) | payer MEDICAID, SELFPAY ==
[2021-02-20 15:23] VITALS: BP 128/83; PULSE 80; RESP 16; TEMP 36.3; O2SAT 98
--- NOTE | 2021-02-20 15:30 | DI.US_ITS ---
Exam(s) US LOWER EXTREMITY VENOUS LT EXAM: US LOWER EXTREMITY VENOUS LT CLINICAL HISTORY: swelling, pain TECHNIQUE: Grayscale, color, and doppler imaging of the deep venous system of the left lower extremi ty was performed. COMPARISON: US US UPPER EXTREMITY VENOUS LT from 10/04/2020 FINDINGS: There is no evidence of intraluminal thrombus and there is normal compression and augmentation demons trated within the common femoral vein, femoral vein, and popliteal vein. In the ipsilateral calf the interrogated veins also exhibit normal compression/ augmentation properti es. The ipsilateral saphenofemoral junction is patent. IMPRESSION: 1. No evidence of DVT in the left lower extremity. 2. DATA REPOSITORY:
--- NOTE | 2021-02-20 16:16 | ED.GENADUL_ITS ---
Discharge Plan Disposition Patient Disposition: AGAINST MEDICAL ADVICE Discharge Details Clinical Impression: Localized swelling of left lower extremity Primary Care Provider: Ivonne Hampton ED Provider: Ole Florian Home Meds and New Rx's Prescriptions: No Action methadone 10 mg tablet 110 mg PO DAILY RF: 0 dexmethylphenidate [Focalin XR] 40 mg capsule,ER biphasic 50-50 40 mg PO DAILY RF: 0 PNV [id number] 27 mg iron-1000 mcg-300 mg capsule 1 cap PO DAILY RF: 0 Narcan 4 mg/actuation spray,non-aerosol 4 mg intranasal Q2M PRNRF: 0 gabapentin 600 MG tablet 1,200 mg PO TID RF: 0 dexmethylphenidate [Focalin XR] 30 mg capsule,ER biphasic 50-50 30 mg PO .QHS RF: 0 dexmethylphenidate [Focalin XR] 40 mg capsule,ER biphasic 50-50 PO RF: 0 cefadroxil 500 mg Capsule 1,000 mg PO BID RF: 0 Discharge Data Discharge Date/Time-TO BE ENTERED AT DEPARTURE: 02/20/21 17:30 Medical Decision Making <Lakia Florian MD - Last Filed: 02/25/21 11:00> Denisse Mcdermott is a 35-year-old woman with a history of substance use disorder on methadone, mitral regurgitation, 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 On exam there is a 2 cm mass over the left anterior tibia at the midshaft level that is mildly tender to palpation, not warm, not erythematous without surrounding skin changes or other changes of the left lower extremity or foot. Consistent with hematoma, however patient reports that changes occurred without trauma. Concern for hematoma, possible old superficial thrombophlebitis, abscess, other. Exam/history at this time is not consistent with sepsis, worsening cellulitis to left lower extremity. Given recent history of cellulitis and hospitalization, plan for screening labs in addition to left lower extremity ultrasound. Lower extremity ultrasound negative for DVT or fluid collection in area of interest left anterior tibia. Patient signed out to Dr. Ole Florian at time of shift change awaiting screening labs. Medical Records Medical records reviewed: Yes I reviewed the patient's medical records. Imaging Data Radiologic Study: Attestation: I personally reviewed and interpreted this imaging study as follows: Radiologist's impression: EXAM: US LOWER EXTREMITY VENOUS LT CLINICAL HISTORY: swelling, pain TECHNIQUE: Grayscale, color, and doppler imaging of the deep venous system of the left lower extremity was performed. COMPARISON: US US UPPER EXTREMITY VENOUS LT from 10/04/2020 FINDINGS: There is no evidence of intraluminal thrombus and there is normal compression and augmentation demonstrated within the common femoral vein, femoral vein, and popliteal vein. In the ipsilateral calf the interrogated veins also exhibit normal compression/ augmentation properties. The ipsilateral saphenofemoral junction is patent. IMPRESSION: 1. No evidence of DVT in the left lower extremity. <Ole Florian MD - Last Filed: 02/20/21 17:47> Patient signed out by Dr. Yris Florian with plan to follow-up on CBC and BMP and reassess patient for disposition. Ultrasound of the left lower extremity negative for DVT per radiology. BMP interpreted by radiology as negative. CBC pending. Patient wishing to leave prior to completion of work-up. I had a discussion with the patient about my diagnostic/treatment plan. She declines plan and wishes to leave against medical advise. I reiterated my concerns to the patient and explained the risks of leaving prior to completion of workup and treatment. I specifically emphasized the possibility of life- threatening or lifestyle modifying disease that would not be appropriately treated if they leave. Patient verbalized understanding of my concerns and the potential for life threatening or lifestyle modifying disease. Patient has capacity to make informed decision. I again explained my concerns and urged the patient to stay for treatment as outlined. Patient continued to refused to wait for results. I recommended that the patient follow-up with primary care physician KAELYN or return to the Emergency Department at any time for further treatment. HPI <Lakia Florian MD - Last Filed: 02/25/21 11:00> General Mode of arrival: ambulatory . Date/Time Provider Initiated Documentation: 02/20/21 15:14 . Limitations to Documentation: no limitations . Information obtained by: patient, RN notes reviewed and old records reviewed . HPI Narrative: Denisse Mcdermott is a 35-year-old woman with a history of substance use disorder on methadone, amputation of right foot, currently at 30 weeks gestational age presenting to the emergency department for bump on left lower leg. Patient reports that she was admitted to [facility] last week for several days for left lower extremity cellulitis, was discharged home on cefadroxil which she has been taking as prescribed. Patient reports that yesterday she noticed a bump on the anterior aspect of her left lower leg approximately the midshaft tibia level. Patient reports that she does not recall trauma hitting her leg, or any other inciting event. Patient reports that her leg and foot are significantly less swollen than when she was initially being treated with cellulitis, and erythema from cellulitis has resolved. She reports no worsening of edema or erythema since being discharged from the hospital. Patient states that she presents emergency department because she was concerned that some on the front of her left lower leg could represent a blood clot. She denies pain, fevers, cough, shortness of breath, vomiting, diarrhea, numbness, weakness, vaginal bleeding. Patient reports that motion of the baby has been at his usual level. Has been eating and drinking as usual. Related Data Home Medications Medication Instructions Recorded Confirmed gabapentin 1,200 mg PO TID 03/23/17 02/20/21 naloxone 4 mg/actuation nasal spray 4 mg INTRANASAL Q2M PRN 05/29/20 02/20/21 vits 100-iron 27 mg-folic 1 cap PO DAILY cap 05/29/20 02/20/21 ac 1,000 mcg-dha 300 mg-epa capsule dexmethylphenidate 40 mg 40 mg PO DAILY 08/28/20 02/20/21 capsule,extended release [id number] methadone 10 mg tablet 110 mg PO DAILY tab 08/28/20 02/20/21 cefadroxil 1,000 mg PO BID 02/20/21 02/20/21 dexmethylphenidate [Focalin XR] 30 mg PO .QHS 02/20/21 02/20/21 dexmethylphenidate [Focalin XR] mg PO 02/20/21 02/20/21 Allergies Allergy/AdvReac Type Severity Reaction Status Date / Time bupropion HCl AdvReac Intermediate Contraindic Unverified 02/20/21 15:29 [From Wellbutrin SR] ated General Stated Complaint: Cellulitis CELESTE: 3 Review of Systems <Lakia Florian MD - Last Filed: 02/25/21 11:00> Narrative: Constitutional: denies fevers Eyes: denies eye pain ENT: denies ear pain, dental pain, sore throat Cardiovascular: denies chest pain, edema Respiratory: denies SOB, cough GI: denies abdominal pain, vomiting, diarrhea : denies flank pain MSK: denies back pain, neck pain, arthralgias, myalgias Skin: denies rash, reports mass left anterior lower leg Neuro: denies headaches, numbness, weakness PFS <Lakia Florian MD - Last Filed: 02/25/21 11:00> All Active Problems Foreign body in foot, left (Acute) Localized swelling of left lower extremity (Acute) Cellulitis of hand, right (Acute) Cellulitis (Acute) Throat pain in adult (Acute) (Acute) Smoker (Acute) Viral illness (Acute) Dehydration (Acute) ADHD, hyperactive-impulsive type (Chronic 05/14/16) Subacute endocarditis (Acute 01/22/16) MSSA endocarditis January, Cardiomyopathy (Chronic 01/22/16) Pleural effusion, bilateral (Acute 01/22/16) History of prior with IUGR (Acute 01/11/15) History of kidney injury (Acute 01/17/16) Acute January, History of drug abuse (Acute 01/17/16) In IP treatment at [facility], no longer on methadone as of 01/17/16. Family court is close to resolved - will end . She is expecting 1st daughter to come home. Depression (Acute 01/11/15) Chronic hepatitis C without hepatic coma (Acute 01/11/15) Bacterial vaginosis (Acute 05/24/13) Rx with Metronidazole cream given 04/19/15. Anemia of chronic disease (Acute 01/17/16) Insomnia (Acute) Discharge planning issues (Acute) DVT prophylaxis (Acute) Fever (Acute) Prepatellar bursitis of right knee (Acute) Edema (Acute) Mitral regurgitation (Chronic) Opioid dependence (Chronic) Anemia (Chronic) Anxiety (Chronic) Medical History ADHD Alcohol abuse Amputation of right foot COVID-19 virus infection Depression difficulty bonding with 2nd child. child removed from her custody. was on Wellbutrin but had sz and not on meds at this time. has appt with counselor 03/2015 Effusion, right knee Herpes, vulvar History of depression HSV infection Hx of infant who one week after . ? HSV or H1N1 infection. Pt has been on prophylaxis with pregnancies. Hx of cocaine abuse Paresthesia of both hands Personality disorder examination or test, positive result PTSD (post-traumatic stress disorder) Surgical History Amputation 12/23/16;[facility]; RIGHT BELOW THE KNEE section (11/24/12) PCD @ 35w. IUGR. [facility]. [id number]. [facility] [place]. 03/26/15 RCD. Pt arrived in labor and declined SUN. F. Jessica. Family History Mother No problems noted. Father No problems noted. Brother No problems noted. Grandfather No problems noted. Grandfather No problems noted. Grandmother No problems noted. Grandmother No problems noted. Son No problems noted. Son No problems noted. Daughter No problems noted. Daughter No problems noted. Social History Smoking/Tobacco Use Status: Current every day Tobacco Type: cigarettes Smoking risk assessment performed?: Yes Alcohol Intake: former Drug use: Current Sobriety Substance use type: former substance user, marijuana, crack/cocaine and heroin Do you feel safe at home: Yes Do you feel safe in your relationship?: Yes History History 4 Para 4 Hx # Term Pregnancies Multiple births Hx # Pregnancies Ectopic pregnancies AB induced Hx Number of Living Children 3 AB spontaneous Past Pregnancies Del. Date GA/Weeks # Outcome Route Wgt Sex Labor Lgth Anesthes ia Location Prov Complic 12/28/20 25 Delivery Date: 12/28/20 Patient transferred OB care to [facility] Roxanna Varma Exam <Lakia Florian MD - Last Filed: 02/25/21 11:00> Narrative Exam Narrative: Constitutional: well and [id number], pleasant, conversing normally HENT: head atraumatic/normocephalic/normal inspection, mucous membranes moist Eyes: conjunctiva normal, sclera normal, pupils 3mm b/l Neck: no stridor, normal ROM, trachea midline Chest: normal inspection Resp: normal work of breathing, LCTAB Cardio: normal rate, normal rhythm, no murmur appreciated GI: abdomen soft, non-tender, non-distended Back: normal inspection, no rash Skin: warm, dry, normal color, no rash Neuro: alert, not altered, grossly non-focal, normal tone Ext: no edema, right BKA, left DP pulses intact, approximately 2 cm raised area over the midshaft anterior tibia on the left, mildly tender to palpation, no warmth, no erythema, no fluctuance, no skin wound, associated with faint ecchymosis, no posterior calf tenderness palpation Psych: normal mood, normal affect, normal behavior Course <Lakia Florian MD - Last Filed: 02/25/21 11:00> Vital Signs Vital signs: Vital Signs Temperature 36.3 C L 02/20/21 15:23 Pulse 80 02/20/21 15:23 Respiratory Rate 16 02/20/21 15:23 Blood Pressure 128/83 02/20/21 15:23 Pulse Oximetry 98 02/20/21 15:23 Temperature 36.3 C L 02/20/21 15:23 Pulse 80 02/20/21 15:23 Respiratory Rate 16 02/20/21 15:23 Respiratory Effort Non-Labored 02/20/21 15:23 Blood Pressure 128/83 02/20/21 15:23 Blood Pressure Position Sitting 02/20/21 15:23 Pulse Oximetry 98 02/20/21 15:23 Oxygen Delivery Method Room Air 02/20/21 15:23 Oxygen Flow Rate 0 02/20/21 15:23 Pain Level 5 02/20/21 15:23 Sign Out <Lakia Florian MD - Last Filed: 02/25/21 11:00> Sign Out Data: Sign Out Comment: Patient signed out to Dr. Ole Florian at time of shift change with labs pending Last updated by Lakia Florian MD at 02/20/21 16:18
[2021-02-20 17:17] LABS: Abs Immature Grans 0.05 10^3/uL (0.0-0.06); Absolute Basophil Count 0.03 10^3/uL (0.0-0.2); Absolute Eosinophil Count 0.18 10^3/uL (0.0-0.7); Absolute Lymphocyte Count 2.56 10^3/uL (1.2-3.4); Absolute Monocyte Count 0.45 10^3/uL (0.1-0.8); Absolute Neutrophil Count 6.71 10^3/uL (1.2-6.7); Basophils % 0.3; Eosinophils % 1.8; HCT 35.8 % (36.0-46.0); HGB 11.5 g/dL (11.2-15.7); Immature Grans % 0.5; Lymphocytes % 25.7; MCHC 32.1 % (32.0-36.0); MCV 87.1 fL (80-95); Monocytes % 4.5; Neutrophils % 67.2; Nucleated RBC 0 %; RBC 4.11 10^6/uL (3.93-5.22); RDW 13.1 % (11.7-14.6); RDW-SD 41.2 fL; WBC 9.98 10^3/uL (4.4-10.8)
[2021-02-20 17:19] LABS: Anion Gap 8.6 mmol/L (3-11); BUN 10 mg/dL (7-18); CO2 25.4 mmol/L (21.0-32.0); CREATININE 0.5 mg/dL (0.55-1.02); Calcium 8.6 mg/dL (8.5-10.1); Chloride 101 mmol/L (98-107); Glucose 102 mg/dL (74-106); Potassium 4.2 mmol/L (3.5-5.1); Sodium 135 mmol/L (136-145)
== END 2021-02-20 17:30 | disposition left against medical advice (07) ==
PROVIDERS: Student in an Organized Health Care Education/Training Program; Emergency Provider Student in an Organized Health Care Education/Training Program; PCP Nurse Practitioner Family
DX: O26.893 Other specified pregnancy related conditions, third trimester (principal); R22.42 Localized swelling, mass and lump, left lower limb; Z3A.30 30 weeks gestation of pregnancy; Z53.29 Procedure and treatment not carried out because of patient's decision for other reasons
CPT/HCPCS: 80048; 99284; 85025; 93971; 99283

== ENCOUNTER 2021-05-31 12:26 | Emergency (ER) | payer MEDICAID, SELFPAY ==
[2021-05-31 12:37] VITALS: BP 119/70; PULSE 66; RESP 16; TEMP 36.1; O2SAT 97
--- NOTE | 2021-05-31 13:24 | ED.GENADUL_ITS ---
Discharge Plan Disposition Patient Disposition: AGAINST MEDICAL ADVICE Condition: Fair Discharge Details Clinical Impression: Cellulitis Primary Care Provider: Ivonne Hampton ED Provider: Reymundo George Home Meds and New Rx's Prescriptions: New clindamycin HCl 150 mg capsule 450 mg PO TID 7 Days Qty: 63 0RF Continued methadone 10 mg tablet 125 mg PO DAILY 0RF naloxone [Narcan] 4 mg/actuation spray,non-aerosol 4 mg intranasal Q2M PRN0RF Rx Instructions: spray 1 dose into ONE nostril; alternate nostrils w each dose until help arrives gabapentin 600 MG tablet 1,200 mg PO TID 0RF Label Comments: 1200MG MORNING, 600MG AFTERNOON, 1200MG BEDTIME (CONFIRMED W/[facility] F[facility] 03/17/17) Rx Instructions: 2 tablets by mouth every AM, 1 tablet in the afternoon, and 2 tablets at bedtime methylphenidate HCl 20 mg tablet 20 mg PO QID 0RF Label Comments: TAKE 1 TABLET BY MOUTH THREE TIMES DAILY. MAY FILL WHEN FOCALIN DUE mirtazapine 30 mg tablet 30 mg PO DAILY 0RF Label Comments: TAKE 1 TABLET BY MOUTH AT BEDTIME Discharge Instructions Instructions: Cellulitis (ED) Additional Instructions: As per our discussion you have chosen to leave AGAINST MEDICAL ADVICE. Please understand that not a full work-up was able to be completed such as x-rays blood work and full evaluation of your hand swelling. I am concerned for infection but there may be also other processes going on which are better evaluated with further testing. Please understand that you may return at any point to the emergency department to complete your full evaluation and take antibiotics as prescribed. Referrals: Ivonne Hampton [Primary Care Provider] - 3 days Discharge Data Discharge Date/Time-TO BE ENTERED AT DEPARTURE: 05/31/21 13:42 Medical Decision Making Patient presenting to the emergency department with chief complaint of left hand infection. She states that she just needs oral antibiotics and that she has to leave right away due to inability to miss appointment at 2 PM. Patient has significant cellulitis to left hand that is circumferential with significant swelling. Patient states that she is unwilling to stay for radiological imaging and blood work along with consideration of possible need of IV antibiotics. Patient denies any systemic symptoms. Patient is well familiar to myself and has significant history of drug abuse including injection. Patient denies any recent drug abuse but I am concerned for this being because. Patient reports that his was a cedar chest she was moving that she got multiple splinters but I have low suspicion of this being the actual cause as I see no obvious splinters. Patient states that she is going to leave AMA so we will give given initial dose of clindamycin p.o. and sent home with prescription but informed that she should return for complete and thorough evaluation that was unable to be completed here today. HPI General Mode of arrival: ambulatory . Date/Time Provider Initiated Documentation: 05/31/21 13:23 . Limitations to Documentation: no limitations . Information obtained by: patient . History of Present Illness 35 year old F presents to the emergency department with the chief complaint of left hand infection, described as moderate, with intensity rated at 8. Quality is described as aching, and is localized to the left and upper extremity. Patient reports no radiation. Patient started experiencing this day(s) (3) and it has been constant. improves with No relieving factors improve symptom(s), No exacerbating factors reported . Patient notes no other symptoms.. Patient did receive the following treatments prior to arrival, none Related Data Home Medications Medication Instructions Recorded Confirmed gabapentin 600 mg tablet 1,200 mg PO TID 03/23/17 05/31/21 naloxone 4 mg/actuation nasal 4 mg INTRANASAL Q2M PRN 05/29/20 05/31/21 spray (Narcan) methadone 10 mg tablet 125 mg PO DAILY tab 08/28/20 05/31/21 clindamycin HCl 150 mg capsule 450 mg PO TID 7 Days #63 cap 05/31/21 methylphenidate HCl 20 mg tablet 20 mg PO QID 05/31/21 05/31/21 mirtazapine 30 mg tablet 30 mg PO DAILY 05/31/21 05/31/21 Previous Rx's Medication Instructions Recorded clindamycin HCl 150 mg capsule 450 mg PO TID 7 Days #63 cap 05/31/21 Allergies Allergy/AdvReac Type Severity Reaction Status Date / Time bupropion HCl AdvReac Intermediate Contraindic Unverified 05/31/21 12:41 [From Wellbutrin SR] ated General Stated Complaint: Cellulitis CELESTE: 3 Review of Systems Constitutional Constitutional: Denies chills, Denies fever(s), Denies headache(s), Denies malaise and Denies poor appetite ENT Ears, Nose, Mouth, and Throat: Denies headache(s) Cardiovascular Cardiovascular: Denies chest pain and Denies dyspnea Respiratory Respiratory: Denies cough and Denies dyspnea Gastrointestinal Gastrointestinal: Denies diarrhea, Denies nausea and Denies vomiting Musculoskeletal Musculoskeletal: Reports as per HPI and Denies numbness Integumentary/Breasts Skin/Breast: Reports as per HPI, Reports skin pain, Reports skin swelling and Reports sores Neurologic Neurologic: Denies headache(s), Denies numbness and Denies paresthesias Hematologic/Lymphatic Hematologic/Lymphatic: Denies lymphadenopathy PFSH All Active Problems Foreign body in foot, left (Acute) Localized swelling of left lower extremity (Acute) Cellulitis of hand, right (Acute) Cellulitis (Acute) Throat pain in adult (Acute) (Acute) Smoker (Acute) Viral illness (Acute) Dehydration (Acute) ADHD, hyperactive-impulsive type (Chronic 05/14/16) Subacute endocarditis (Acute 01/22/16) MSSA endocarditis January, Cardiomyopathy (Chronic 01/22/16) Pleural effusion, bilateral (Acute 01/22/16) History of prior with IUGR (Acute 01/11/15) History of kidney injury (Acute 01/17/16) Acute January, History of drug abuse (Acute 01/17/16) In IP treatment at [place], no longer on methadone as of 01/17/16. Family court is close to resolved - will end . She is expecting 1st daughter to come home. Depression (Acute 01/11/15) Chronic hepatitis C without hepatic coma (Acute 01/11/15) Bacterial vaginosis (Acute 05/24/13) Rx with Metronidazole cream given 04/19/15. Anemia of chronic disease (Acute 01/17/16) Insomnia (Acute) Discharge planning issues (Acute) DVT prophylaxis (Acute) Fever (Acute) Prepatellar bursitis of right knee (Acute) Edema (Acute) Mitral regurgitation (Chronic) Opioid dependence (Chronic) Anemia (Chronic) Anxiety (Chronic) Medical History ADHD Alcohol abuse Amputation of right foot COVID-19 virus infection Depression difficulty bonding with 2nd child. child removed from her custody. was on Wellbutrin but had sz and not on meds at this time. has appt with counselor 03/2015 Effusion, right knee Herpes, vulvar History of depression HSV infection Hx of who one week after . ? HSV or H1N1 infection. Pt has been on prophylaxis with pregnancies. Hx of cocaine abuse Paresthesia of both hands Personality disorder examination or test, positive result PTSD (post-traumatic stress disorder) Surgical History Amputation 12/23/16;[facility]; RIGHT BELOW THE KNEE section (11/24/12) PCD @ 35w. IUGR. [facility]. [id number]. [facility] [place]. 03/26/15 RCD. Pt arrived in labor and declined SUN. Chad Hausera. Family History Mother No problems noted. Father No problems noted. Brother No problems noted. Grandfather No problems noted. Grandfather No problems noted. Grandmother No problems noted. Grandmother No problems noted. Son No problems noted. Son No problems noted. Daughter No problems noted. Daughter No problems noted. Social History Smoking/Tobacco Use Status: Current every day Tobacco Type: cigarettes Smoking risk assessment performed?: Yes Alcohol Intake: former Drug use: Current Sobriety Substance use type: former substance user, marijuana, crack/cocaine and heroin Do you feel safe at home: Yes Do you feel safe in your relationship?: Yes History History 4 Para 4 Hx # Term Pregnancies Multiple births Hx # Pregnancies Ectopic pregnancies AB induced Hx Number of Living Children 3 AB spontaneous Past Pregnancies Del. Date GA/Weeks # Outcome Route Wgt Sex [facility] Delivery Date: 12/28/20 Last Updated by: Roxanna Rocha LPN Patient transferred OB care to [facility] Exam Const General: cooperative, no acute distress and not ill appearing Orientation: alert, awake and oriented x3 Resp Effort & Inspection: normal respiratory effort, able to speak in complete sentences and no respiratory distress Cardio Rate: regular rate Rhythm: regular rhythm Pulses: radial pulses present Skin Trauma: abrasion (Multiple to both upper extremities) Neuro General: patient alert, patient awake, patient oriented x3, moves all extremities and no focal motor deficits Sensory Exam: no sensory deficits noted Extrem Right upper extremity: wrist Details: abnormal to inspection Details: erythema, tenderness, swelling and radial pulse present and hand Details: abnormal to inspection Details: joint swelling and other (Erythema), normal capillary refill, neuromotor exam normal, neurosensory exam normal, tendon exam normal, tenderness, normal ROM of fingers, warmth and swelling Course Vital Signs Vital signs: Vital Signs Temperature 36.1 C L 05/31/21 12:37 Pulse 66 05/31/21 12:37 Respiratory Rate 16 05/31/21 12:37 Blood Pressure 119/70 05/31/21 12:37 Pulse Oximetry 97 05/31/21 12:37 Temperature 36.1 C L 05/31/21 12:37 Temperature Source Skin 05/31/21 12:37 Pulse 66 05/31/21 12:37 Respiratory Rate 16 05/31/21 12:37 Respiratory Effort 05/31/21 12:37 Blood Pressure 119/70 05/31/21 12:37 Blood Pressure Position Sitting 05/31/21 12:37 Pulse Oximetry 97 05/31/21 12:37 Oxygen Delivery Method Room Air 05/31/21 12:37 Oxygen Flow Rate 0 05/31/21 12:37 Pain Level 8 05/31/21 12:37
--- NOTE | 2021-05-31 13:35 | NUR.NOTE ---
Nursing Note: PT INFO GIVEN TO CARE MANAGEMENT TO BE SEEN FOR LEFT HAND CELLULITIS IN 1 WEEK, CHANI, ED
[2021-05-31] MEDS: Clindamycin 150 MG CAP 450 MG PO (13:40)
== END 2021-05-31 13:42 | disposition left against medical advice (07) ==
PROVIDERS: Emergency Provider Nurse Practitioner Family; PCP Nurse Practitioner Family
DX: L03.114 Cellulitis of left upper limb (principal); Z53.29 Procedure and treatment not carried out because of patient's decision for other reasons
CPT/HCPCS: 99283

== ENCOUNTER 2021-06-01 16:34 | Inpatient (IN) | payer MEDICAID, SELFPAY ==
[2021-06-01 16:39] VITALS: BP 127/69; PULSE 65; RESP 16; TEMP 36; O2SAT 96
--- NOTE | 2021-06-01 16:45 | DI.RAD_ITS ---
Exam(s) XR FOREARM LT EXAM: XR FOREARM LT CLINICAL HISTORY: Swelling, R/O Fracture, gas. TECHNIQUE: 2D digital imaging was performed. COMPARISON: CR LEFT ELBOW LIMITED from 09/29/2009 CR XR FOREARM RT from 12/05/2019 FINDINGS: BONES: No acute fracture is present. No bony destructive lesion is seen. Visualized portion of elbow and wrist joints are unremarkable. SOFT TISSUE: Diffuse soft tissue edema greater around the wrist. There is a linear metallic foreign body seen on the lateral view projecting anterior to the distal humerus. This was present on a prior exam from 2009 and has the appearance an imbedded needle. No additional foreign bodies are seen mor e distally. IMPRESSION: Soft tissue swelling. Needle projecting anterior to humerus, unchanged. No additional foreign allen s. No fracture. DATA REPOSITORY: RADIATION DOSE DELIVERED:
--- NOTE | 2021-06-01 16:45 | DI.RAD_ITS ---
Exam(s) XR HAND LT COMPLETE EXAM: XR HAND LT COMPLETE CLINICAL HISTORY: Cellulitis, R/O Fracture, FB. TECHNIQUE: 2D digital imaging was performed. Three views. COMPARISON: CR XR HAND RT COMPLETE from 12/05/2019 FINDINGS: Exam limited by finger positioning. Fingers are held in flexion. BONES: No acute fracture is present. No bony destructive lesion is seen. JOINTS: No dislocation present. SOFT TISSUE: Marked dorsal soft tissue swelling. No gas collection or foreign body. IMPRESSION: Marked dorsal soft tissue swelling over the metacarpal region. No evidence of fracture or foreign romulo dy. DATA REPOSITORY: RADIATION DOSE DELIVERED:
--- NOTE | 2021-06-01 16:52 | ED.GENADUL_ITS ---
Discharge Plan Discharge Details Chief Complaint: Cellulitis Primary Care Provider: Ivonne Hampton ED Provider: Jeannette Duffy Home Meds and New Rx's Prescriptions: No Action methadone 10 mg tablet 125 mg PO DAILY 0RF naloxone [Narcan] 4 mg/actuation spray,non-aerosol 4 mg intranasal Q2M PRN0RF Rx Instructions: spray 1 dose into ONE nostril; alternate nostrils w each dose until help arrives gabapentin 600 MG tablet 1,200 mg PO TID 0RF Label Comments: 1200MG MORNING, 600MG AFTERNOON, 1200MG BEDTIME (CONFIRMED W/RITSamina VALLES, EMELY, LSAT FILLED 03/17/17) Rx Instructions: 2 tablets by mouth every AM, 1 tablet in the afternoon, and 2 tablets at bedtime methylphenidate HCl 20 mg tablet 20 mg PO QID 0RF Label Comments: TAKE 1 TABLET BY MOUTH THREE TIMES DAILY. MAY FILL WHEN FOCALIN DUE mirtazapine 30 mg tablet 30 mg PO DAILY 0RF Label Comments: TAKE 1 TABLET BY MOUTH AT BEDTIME clindamycin HCl 150 mg capsule 450 mg PO TID 7 Days Qty: 63 0RF Medical Decision Making 35-year-old female presents to the ER with chief complaint of left hand and forearm swelling. Patient was seen here yesterday for same and left AMA. Yesterday patient was declining lab work or imaging. At this time the swelling has gone up to mid forearm. She is unable to extend or flex her wrist. She reports that she was moving a cedar chest approximately 3 days ago when she dropped it and may have gotten some splinters into her fingers. She denies any IV drug use or skin popping. She reports that she is clean. She does have some small flexion extension of her left index finger. She denies any axillary tenderness. She does report chills. She was prescribed clindamycin yesterday. Past medical history includes hepatitis C, anemia, anxiety, bilateral pleural effusion, endocarditis, history of drug abuse, mitral regurgitation. IV, CBC, CMP, lactate, blood cultures x2, and x-ray of the left hand and forearm ordered. 1830: Attempted to get a ultrasound-guided IV which was unsuccessful. Casandra Colvin at bedside for attempt at IV access. Patient requesting her normal dose of methylphenidate and gabapentin. Orders placed. Casandra Colvin at bedside to attempt a midline or PICC line he was unsuccessful attempt x3. I did attempt a right EJ which was unsuccessful. Plan to move patient into a more proper room and discussed option for additional attempt at blood draw via femoral stick or an additional EJ placement versus central line. Imaging protocol: XR Left forearm. Views: 2 views. COMPARISON: CR XR WRIST LT COMPLETE 10/04/2020 13:03 FINDINGS: Bones/joints: No acute fracture or subluxation. No focal osseous erosion. Soft tissues: Generalized soft tissue swelling. Metallic linear 14 mm foreign body projecting over the volar distal upper arm. IMPRESSION: Needle fragment projecting over the volar distal upper arm. Thank you for allowing us to participate in the care of your patient. Dictated and Authenticated by: Dimla Padilla MD Imaging protocol: XR Left hand. Views: 3 or more views. COMPARISON: CR LEFT HAND COMPLETE 09/20/2015 13:33 FINDINGS: Bones/joints: Fixed flexion of the digits limits assessment of the phalanges. Allowing for this no fracture or listhesis. No focal osseous erosion. Slight lucency in the distal ulnar diaphysis appears well corticated and this favors a benign enchondroma or other chronic lesion. Soft tissues: Generalized soft tissue swelling. No emphysema or radiopaque foreign body. Benign calcifications in the soft tissues. IMPRESSION: Severe soft tissue swelling. No emphysema or radiopaque foreign body. Thank you for allowing us to participate in the care of your patient. Dictated and Authenticated by: Dilma Padilla MD 1917: Spoke with Dr. Washington with hospitalist regarding patient case and details he will not accept patient without IV access at this time. He recommends consult with Ortho or surgery for possible foreign body noted on the x-ray. Ortho paged. 2100: Central line placed by Dr. Janessa Wynne at my request. Blood was obtained. HPI General Mode of arrival: ambulatory . Date/Time Provider Initiated Documentation: 06/01/21 16:36 . Limitations to Documentation: no limitations . Information obtained by: patient, RN notes reviewed and old records reviewed . HPI Narrative: 35-year-old female presents to the ER with chief complaint of left hand and forearm swelling. Patient was seen here yesterday for same and left AMA. Yesterday patient was declining lab work or imaging. At this time the swelling has gone up to mid forearm. She is unable to extend or flex her wrist. She reports that she was moving a cedar chest approximately 3 days ago when she dropped it and may have gotten some splinters into her fingers. She denies any IV drug use or skin popping. She reports that she is clean. She does have some small flexion extension of her left index finger. She denies any axillary tenderness. She does report chills. She was prescribed clindamycin yesterday. Past medical history includes hepatitis C, anemia, anxiety, bilateral pleural effusion, endocarditis, history of drug abuse, mitral regurgitation. Related Data Home Medications Medication Instructions Recorded Confirmed gabapentin 600 mg tablet 1,200 mg PO TID 03/23/17 06/01/21 naloxone 4 mg/actuation nasal 4 mg INTRANASAL Q2M PRN 05/29/20 06/01/21 spray (Narcan) methadone 10 mg tablet 125 mg PO DAILY tab 08/28/20 06/01/21 clindamycin HCl 150 mg capsule 450 mg PO TID 7 Days #63 cap 05/31/21 06/01/21 methylphenidate HCl 20 mg tablet 20 mg PO QID 05/31/21 06/01/21 mirtazapine 30 mg tablet 30 mg PO DAILY 05/31/21 06/01/21 Previous Rx's Medication Instructions Recorded clindamycin HCl 150 mg capsule 450 mg PO TID 7 Days #63 cap 05/31/21 Allergies Allergy/AdvReac Type Severity Reaction Status Date / Time bupropion HCl AdvReac Intermediate Contraindic Unverified 06/01/21 16:42 [From Wellbutrin SR] ated General Stated Complaint: Cellulitis CELESTE: 3 Review of Systems All systems reviewed & are unremarkable except as noted in HPI and below Constitutional Constitutional: Reports as per HPI and Reports chills Musculoskeletal Musculoskeletal: Reports as per HPI, Reports arthralgias, Reports joint swelling, Reports limited range of motion and Reports stiffness PFSH All Active Problems Foreign body in foot, left (Acute) Localized swelling of left lower extremity (Acute) Cellulitis of hand, right (Acute) Cellulitis (Acute) Throat pain in adult (Acute) (Acute) Smoker (Acute) Viral illness (Acute) Dehydration (Acute) ADHD, hyperactive-impulsive type (Chronic 05/14/16) Subacute endocarditis (Acute 01/22/16) MSSA endocarditis January, Cardiomyopathy (Chronic 01/22/16) Pleural effusion, bilateral (Acute 01/22/16) History of prior with IUGR (Acute 01/11/15) History of kidney injury (Acute 01/17/16) Acute January, History of drug abuse (Acute 01/17/16) In IP treatment at [facility], no longer on methadone as of 01/17/16. Family court is close to resolved - will end . She is expecting 1st daughter to come home. Depression (Acute 01/11/15) Chronic hepatitis C without hepatic coma (Acute 01/11/15) Bacterial vaginosis (Acute 05/24/13) Rx with Metronidazole cream given 04/19/15. Anemia of chronic disease (Acute 01/17/16) Insomnia (Acute) Discharge planning issues (Acute) DVT prophylaxis (Acute) Fever (Acute) Prepatellar bursitis of right knee (Acute) Edema (Acute) Mitral regurgitation (Chronic) Opioid dependence (Chronic) Anemia (Chronic) Anxiety (Chronic) Medical History ADHD Alcohol abuse Amputation of right foot COVID-19 virus infection Depression difficulty bonding with 2nd child. child removed from her custody. was on Wellbutrin but had sz and not on meds at this time. has appt with counselor 03/2015 Effusion, right knee Herpes, vulvar History of depression HSV infection Hx of who one week after . ? HSV or H1N1 infection. Pt has been on prophylaxis with pregnancies. Hx of cocaine abuse Paresthesia of both hands Personality disorder examination or test, positive result PTSD (post-traumatic stress disorder) Surgical History Amputation 12/23/16;[facility]; RIGHT BELOW THE KNEE section (11/24/12) PCD @ 35w. IUGR. NRFH. [id number]. [facility] [place]. 03/26/15 RCD. Pt arrived in labor and declined SUN. F. Jessica. Family History Mother No problems noted. Father No problems noted. Brother No problems noted. Grandfather No problems noted. Grandfather No problems noted. Grandmother No problems noted. Grandmother No problems noted. Son No problems noted. Son No problems noted. Daughter No problems noted. Daughter No problems noted. Social History Smoking/Tobacco Use Status: Current every day Tobacco Type: cigarettes Smoking risk assessment performed?: Yes Alcohol Intake: former Drug use: Current Sobriety Substance use type: former substance user, marijuana, crack/cocaine and heroin Do you feel safe at home: Yes Do you feel safe in your relationship?: Yes History History 4 Para 4 Hx # Term Pregnancies Multiple births Hx # Pregnancies Ectopic pregnancies AB induced Hx Number of Living Children 3 AB spontaneous Past Pregnancies Del. Date GA/Weeks # Outcome Route Wgt Sex Labor Lgth Anesthes ia Location Prov Complic 12/28/20 25 Delivery Date: 12/28/20 Last Updated by: Roxanna Rocha LPN [facility] Exam Narrative Exam Narrative: Constitutional: Alert and oriented x3. Appears stated age. Normal body habitus. Head: Normocephalic, no trauma. Eyes: Pupils PERRL, Red reflex noted, EOM's intact. Eyelids symmetrical without lesions, discharge, or swelling. ENT: Bilateral TM's WNL, External ear normal to inspection, no mastoid TTP, swelling, or erythema, Nasal turbinates WNL, no nasal discharge. Normal dentition, Posterior pharynx WNL, no exudate. Chest: RRR, Normal S1, S2, distal pulses intact. Resp: Lungs clear to auscultation bilaterally, no wheezes, rales, or rhonchi. Abdomen: Soft, non-distended, Normoactive bowel sounds all 4 quads. Musculoskeletal:See Below: Skin: See Below Left hand Neurologic: Cranial nerves II-XII intact. Alert and oriented x 3. Motor: No deficits noted. Sensory: Intact bilaterally all 4 extremities. Reflexes: DTR's intact bilaterally.. Hematologic/Lymphatic: No ecchymosis, no lymphadenopathy. Extrem Left upper extremity: elbow/forearm Details: tenderness and swelling, wrist Details: tenderness, swelling and abnormal ROM and hand Details: abnormal to inspection, neuromotor exam abnormal Details: wrist extension abnormal, thumb opposition abnormal and thumb IP flexion abnormal, tenderness, warmth, swelling and puncture wound (Small questionable puncture wounds noted to fingers) Course Vital Signs Vital signs: Vital Signs Temperature 36.0 C L 06/01/21 16:39 Pulse 65 06/01/21 16:39 Respiratory Rate 16 06/01/21 16:39 Blood Pressure 127/69 06/01/21 16:39 Pulse Oximetry 96 06/01/21 16:39 Temperature 36.0 C L 06/01/21 16:39 Temperature Source Skin 06/01/21 16:39 Pulse 65 06/01/21 16:39 Respiratory Rate 16 06/01/21 16:39 Respiratory Effort 06/01/21 16:44 Blood Pressure 127/69 06/01/21 16:39 Blood Pressure Position Sitting 06/01/21 16:39 Pulse Oximetry 96 06/01/21 16:39 Oxygen Delivery Method Room Air 06/01/21 16:39 Oxygen Flow Rate 0 06/01/21 16:39 Pain Level 8 06/01/21 16:39 Comment 06/01/21 16:39 Lab/Test Results Lab/Test Results: 06/01/21 16:43 Blood Blood Culture - Pending 06/01/21 16:43 Blood Blood Culture - Pending
[2021-06-01 17:57] LABS: Bilirubin Negative (Negative); Blood Negative (Negative); Clarity Sl Cloudy (Clear); Glucose Negative (Negative); Ketones Negative (Negative); Leukocyte Esterase Negative (Negative); Nitrite Negative (Negative); Urobilinogen 0.2 EU/dL (Up TO 0.2); pH 7.5 (5-8)
[2021-06-01 18:15] LABS: *AMPHETAMINES SCREEN URINE Negative (Negative); *BARBITURATES SCREEN URINE Negative (Negative); *BENZODIAZEPINES SCREEN URINE Negative (Negative); Cannabinoids THC Negative (Negative); Cocaine Screen,Urine Negative (Negative); METHADONE URINE SCREEN Positive (Negative); OPIATES URINE SCREEN Negative (Negative)
[2021-06-01 18:19] LABS: Tricyclic Antidepressants Negative (Negative)
--- NOTE | 2021-06-01 18:58 | DI.VRAD_ITS ---
PROCEDURE INFORMATION: Exam: XR Left Forearm Exam date and time: 06/01/2021 17:40 Age: 35 years old Clinical indication: Swelling; Arm, lower; Left; Patient HX: Cellulitis, R/O fb TECHNIQUE: Imaging protocol: XR Left forearm. Views: 2 views. COMPARISON: CR XR WRIST LT COMPLETE 10/04/2020 13:03 FINDINGS: Bones/joints: No acute fracture or subluxation. No focal osseous erosion. Soft tissues: Generalized soft tissue swelling. Metallic linear 14 mm foreign body projecting over the volar distal upper arm. IMPRESSION: Needle fragment projecting over the volar distal upper arm. Dictated and Authenticated by: Dilma Padilla MD. Ordering:LULÚ Machado MD
--- NOTE | 2021-06-01 18:58 | DI.VRAD_ITS ---
PROCEDURE INFORMATION: Exam: XR Left Hand Exam date and time: 06/01/2021 17:41 Age: 35 years old Clinical indication: Arm, lower and hand; Left; Patient HX: Hand swelling, R/O FX, gas, fb. TECHNIQUE: Imaging protocol: XR Left hand. Views: 3 or more views. COMPARISON: CR LEFT HAND COMPLETE 09/20/2015 13:33 FINDINGS: Bones/joints: Fixed flexion of the digits limits assessment of the phalanges. Allowing for this no fracture or listhesis. No focal osseous erosion. Slight lucency in the distal ulnar diaphysis appears well corticated and this favors a benign enchondroma or other chronic lesion. Soft tissues: Generalized soft tissue swelling. No emphysema or radiopaque foreign body. Benign calcifications in the soft tissues. IMPRESSION: Severe soft tissue swelling. No emphysema or radiopaque foreign body. Dictated and Authenticated by: Dilma Padilla MD. Ordering:LULÚ Machado MD
[2021-06-01] MEDS: Methylphenidate 10 MG TAB 20 MG PO (19:18)
[2021-06-01] MEDS: Gabapentin 300 MG CAP 600 MG PO (19:18)
--- NOTE | 2021-06-01 20:45 | DI.RAD_ITS ---
Exam(s) XR LINE PLACEMENT PICC/CVA EXAM: XR LINE PLACEMENT PICC/CVA INDICATION: Post Central line placement. COMPARISON: CR CHEST 2 VIEWS PA,LAT from 11/29/2016 CT CHEST WITHOUT CONTRAST from 11/30/2016 CR,XR XR PORTABLE CHEST AP POST LINE from 02/24/2019 TECHNIQUE: 2D digital imaging was performed. Portable upright AP view. FINDINGS: A catheter is been inserted via the right internal jugular approach. The tip lies in the SVC. No ev idence of pneumothorax. Left upper lobe scarring. No acute infiltrate. Heart size normal. No effu sions. IMPRESSION: Satisfactory placement of internal jugular catheter. DATA REPOSITORY: RADIATION DOSE DELIVERED:
[2021-06-01 21:04] LABS: Lactate 0.5 mmol/L (0.6-1.4)
--- NOTE | 2021-06-01 21:04 | W.ED.PROC ---
Date of service: 06/01/21 Time of Service: 21:00 Procedures Central Line Placement Right IJ: Time Out Performed: Yes Patient Placed on Monitor/Pulse Ox: Yes MD Prep: mask, gown and gloves Central Line Prep: Chlorhexidine scrub Local Anesthetic: Lidocaine 1% Amount of anesthesia used (mL): 2 Ultrasound Used for Placement: Yes Central Line Lumen Inserted: triple Post Procedure: good blood return, all ports aspirated, flushed, capped and sutured in place with 3-0 nylon Patient Tolerated Procedure: well Complications: none Additional Comments: IJ inserted for IV access, blood draw, and meds; poor IV access peripherally Medical Decision Making Internal jugular triple-lumen access was needed given poor peripheral access due to chronic IV drug use.
[2021-06-01 21:07] LABS: Abs Immature Grans 0.01 10^3/uL (0.0-0.06); Absolute Basophil Count 0.02 10^3/uL (0.0-0.2); Absolute Eosinophil Count 0.26 10^3/uL (0.0-0.7); Absolute Lymphocyte Count 1.91 10^3/uL (1.2-3.4); Absolute Monocyte Count 0.46 10^3/uL (0.1-0.8); Absolute Neutrophil Count 3.04 10^3/uL (1.2-6.7); Basophils % 0.4; Eosinophils % 4.6; HCT 33.9 % (36.0-46.0); HGB 10.6 g/dL (11.2-15.7); Immature Grans % 0.2; Lymphocytes % 33.5; MCH 28.1 pg (27.0-33.0); MCHC 31.3 % (32.0-36.0); MCV 89.9 fL (80-95); MPV 9.2 fL (8.0-11.0); Monocytes % 8.1; Neutrophils % 53.2; Nucleated RBC 0 %; Platelet Count 213 10^3/uL (130-400); RBC 3.77 10^6/uL (3.93-5.22); RDW 14.1 % (11.7-14.6); RDW-SD 46.5 fL
[2021-06-01 21:19] LABS: ALT 29 U/L (14-59); AST 13 U/L (15-37); Albumin 3.1 g/dL (3.4-5.0); Alkaline Phosphatase 87 U/L (46-116); Anion Gap 4.2 mmol/L (3-11); BUN 12 mg/dL (7-18); Bilirubin, Total 0.2 mg/dL (0.2-1.0); CO2 28.8 mmol/L (21.0-32.0); CREATININE 0.7 mg/dL (0.55-1.02); Calcium 8.4 mg/dL (8.5-10.1); Chloride 104 mmol/L (98-107); Glucose 88 mg/dL (74-106); Magnesium 1.8 mg/dL (1.8-2.4); Potassium 4.5 mmol/L (3.5-5.1); Sodium 137 mmol/L (136-145)
--- NOTE | 2021-06-01 21:28 | DI.VRAD_ITS ---
PROCEDURE INFORMATION: Exam: XR Chest Exam date and time: 06/01/2021 21:08 Age: 35 years old Clinical indication: Device placement; Other: Central line placement TECHNIQUE: Imaging protocol: XR of the chest. Views: 1 view. COMPARISON: CR XR PORTABLE CHEST AP POST LINE 02/24/2019 21:08 FINDINGS: Tubes, catheters and devices: Right jugular catheter, satisfactory position. Lungs: Mild infiltrate, left lung apex. Pleural spaces: No pleural effusion. No pneumothorax. Heart/Mediastinum: No cardiomegaly. Bones/joints: No acute fracture. IMPRESSION: 1. Right jugular catheter, satisfactory position. 2. Mild infiltrate, left lung apex. Dictated and Authenticated by: Dilma Padilla MD. Ordering:LULÚ Machado MD
[2021-06-01] MEDS: ACETAMINOPHEN 1,000 MG/100 ML BTL 400 MG IVPB (21:41)
[2021-06-01] MEDS: VANCOMYCIN 1,000 MG in Normal Saline 250 ML 166.6666 MG IVPB (21:55)
--- NOTE | 2021-06-01 22:08 | HPE_ITS ---
Date of service: 06/01/21 Time of Service: 22:08 Assessment and Plan Assessment and plan (1) Cellulitis of left hand: Start date: 06/01/21 Status: Acute Assessment and plan: This is a 35-year-old lady who had cedar wooden splinters into her left hand and fingers about 3 days prior to admission operating with progressing cellulitis which is involving extensive amount of soft tissue of the hand and wrist. There are no tender epitrochlear lymph nodes and no fever or leukocytosis. She does not have ED IV access and has a central line placed. She will continue on vancomycin and cefepime with close monitoring. Symptoms and surgical consultation if needed. Pain control may be an issue with her opiate dependence. Will try to avoid IV narcotics and maintain her high-dose methadone using NSAIDs and acetaminophen. (2) Opioid dependence: Start date: 06/01/21 Status: Chronic Assessment and plan: Confirm and continue maintenance meds daily. She takes this in the morning. (3) ADHD, hyperactive-impulsive type: Start date: 06/01/21 Status: Chronic Assessment and plan: Continue high-dose methylphenidate dose 4 times daily. (4) Chronic hepatitis C without hepatic coma: Start date: 06/01/21 Status: Chronic Assessment and plan: Patient states that has not been treated as of yet and caution for exposure. Soft with a Mancuso in place. History of Present Illness History of Present Illness Chief Complaint: Left hand swelling and pain Narrative: This is a 35-year-old female patient with history of IV drug use and chronic hep C on chronic methadone who presented to the ED with swelling of her left hand having been sent home AMA refusing lab work or imaging but apparently on clindamycin now returning with worsening symptoms of swelling and not able to move her hand. She gives a history of having splinters in and moving monitor that eventually became infected and has had no IV drug use recently. She has failed outpatient therapy with clindamycin and imaging did not reveal any soft tissue gas or evidence of osteomyelitis with surgeon reviewing imaging. access obtained with central line and no no elevated WBC or fever, the patient needs IV antibiotic therapy to be initiated with central line access being obtained and maintenance of this access difficult to do safely as an outpatient with patient's history of IV drug use. When I examined the patient she was comfortable with pain having been given gabapentin and Tylenol and is on high- dose chronic methadone which is given in the morning. Patient is hospital status may be a split dose pain management and can be considered in the morning with shift change for the hospitalist. If needed Toradol IV can be given the patient taking ibuprofen chronic. Patient offers no other new complaints. Disabled with her right BKA status post x-ray about 4 years ago. Review of Systems Narrative: 13 point review of systems otherwise unrevealing or stable. PFSH All Active Problems (Updated 06/02/21 @ 06:43 by Sergio Acevedo) Cellulitis of left hand (Acute) Foreign body in foot, left (Acute) Localized swelling of left lower extremity (Acute) Cellulitis of hand, right (Acute) Cellulitis (Acute) Throat pain in adult (Acute) (Acute) Smoker (Acute) Viral illness (Acute) Dehydration (Acute) ADHD, hyperactive-impulsive type (Chronic 05/14/16) Subacute endocarditis (Acute 01/22/16) MSSA endocarditis January, Cardiomyopathy (Chronic 01/22/16) Pleural effusion, bilateral (Acute 01/22/16) History of prior with IUGR (Acute 01/11/15) History of kidney injury (Acute 01/17/16) Acute January, History of drug abuse (Acute 01/17/16) In IP treatment at [facility], no longer on methadone as of 01/17/16. Family court is close to resolved - will end . She is expecting 1st daughter to come home. Depression (Acute 01/11/15) Chronic hepatitis C without hepatic coma (Chronic 01/11/15) Bacterial vaginosis (Acute 05/24/13) Rx with Metronidazole cream given 04/19/15. Anemia of chronic disease (Acute 01/17/16) Insomnia (Acute) Discharge planning issues (Acute) DVT prophylaxis (Acute) Fever (Acute) Prepatellar bursitis of right knee (Acute) Edema (Acute) Mitral regurgitation (Chronic) Opioid dependence (Chronic) Anemia (Chronic) Anxiety (Chronic) Medical History ADHD Alcohol abuse Amputation of right foot COVID-19 virus infection Depression difficulty bonding with 2nd child. child removed from her custody. was on Wellbutrin but had sz and not on meds at this time. has appt with counselor 03/2015 Effusion, right knee Herpes, vulvar History of depression HSV infection Hx of who one week after . ? HSV or H1N1 infection. Pt has been on prophylaxis with pregnancies. Hx of cocaine abuse Paresthesia of both hands Personality disorder examination or test, positive result PTSD (post-traumatic stress disorder) Surgical History Amputation 12/23/16;[facility]; RIGHT BELOW THE KNEE section (11/24/12) PCD @ 35w. IUGR. NRFH. [id number]. [facility] [place]. 03/26/15 RCD. Pt arrived in labor and declined SUN. F. Jessica. Family History Mother No problems noted. Father No problems noted. Brother No problems noted. Grandfather No problems noted. Grandfather No problems noted. Grandmother No problems noted. Grandmother No problems noted. Son No problems noted. Son No problems noted. Daughter No problems noted. Daughter No problems noted. Social History Smoking/Tobacco Use Status: Current every day Tobacco Type: cigarettes Smoking risk assessment performed?: Yes Alcohol Intake: former Drug use: Current Sobriety Substance use type: former substance user, marijuana, crack/cocaine and heroin Do you feel safe at home: Yes Do you feel safe in your relationship?: Yes History History 4 Para 4 Hx # Term Pregnancies Multiple births Hx # Pregnancies Ectopic pregnancies AB induced Hx Number of Living Children 3 AB spontaneous Past Pregnancies Del. Date GA/Weeks # Outcome Route Wgt Sex Labor Lgth Anesthes ia Lo cation Prov Complic 12/28/20 25 Delivery Date: 12/28/20 Last Updated by: Roxanna Rocha LPN Patient transferred [email or web address] Meds Allergies and Home Medications Allergies Allergy/AdvReac Type Severity Reaction Status Date / Time bupropion HCl AdvReac Intermediate Contraindic Unverified 06/01/21 16:42 [From Wellbutrin SR] ated Home Medications Medication Instructions Recorded Confirmed Type gabapentin 600 mg tablet 1,200 mg PO TID 03/23/17 06/01/21 History naloxone 4 mg/actuation nasal 4 mg INTRANASAL Q2M PRN 05/29/20 06/01/21 History spray (Narcan) methadone 10 mg tablet 125 mg PO DAILY tab 08/28/20 06/01/21 History clindamycin HCl 150 mg capsule 450 mg PO TID 7 Days #63 cap 05/31/21 06/01/21 Rx methylphenidate HCl 20 mg tablet 20 mg PO QID 05/31/21 06/01/21 History mirtazapine 30 mg tablet 30 mg PO DAILY 05/31/21 06/01/21 History Exam Narrative Exam Narrative: General: Patient appears older than stated age, moderately obese, in no acute distress with slightly pressured speech and anxious. Good eye contact. She is alert and oriented x3. HEENT: Normocephalic, eyes pupils equal and reactive to light symmetrically, extraocular movement intact and sclera anicteric. Oropharynx with dry mucosa and poor dentition Neck: Supple without JVD. Lungs: Fair aeration and clear to auscultation percussion without localizing rales or rhonchi. Heart: Regular rate and rhythm with no murmurs or gallops.. Breast: Exam deferred. Abdomen: Mildly obese contour, soft nontender to palpate with no palpable hepatosplenomegaly. Bowel sounds positive all quadrants. Genitalia/rectal: Exam deferred. Skin: Normal color except over left hand and wrist where there is increased erythema but no ulceration. Normal warmth and turgor. Actinic changes over sun exposed areas. Skin is dry. Extremities: Right BKA with prosthesis in place, otherwise no edema, cyanosis or clubbing. Joints have fair range of motion. Left wrist and hand has tense edema with erythema and tenderness to any movement. No ulcerations noted but multiple superficial puncture wounds over the tips of the fingers. No discharge comes from the lesions. Peripheral pulses intact. Neuro: Cranial nerves II through XII grossly intact, no focal motor deficits. Psych: Slightly anxious with pressured speech, some attention deficit with wandering conversation, no abnormal thought processes. Remote and recent memory intact. Results Imaging Imaging Studies: Exam: XR Left Forearm Exam date and time: 06/01/2021 17:40 Age: 35 years old Clinical indication: Swelling; Arm, lower; Left; Patient HX: Cellulitis, R/O fb TECHNIQUE: Imaging protocol: XR Left forearm. Views: 2 views. COMPARISON: CR XR WRIST LT COMPLETE 10/04/2020 13:03 FINDINGS: Bones/joints: No acute fracture or subluxation. No focal osseous erosion. Soft tissues: Generalized soft tissue swelling. Metallic linear 14 mm foreign body projecting over the volar distal upper arm. IMPRESSION: Needle fragment projecting over the volar distal upper arm. Exam: XR Left Forearm Exam date and time: 06/01/2021 17:40 Age: 35 years old Clinical indication: Swelling; Arm, lower; Left; Patient HX: Cellulitis, R/O fb TECHNIQUE: Imaging protocol: XR Left forearm. Views: 2 views. COMPARISON: CR XR WRIST LT COMPLETE 10/04/2020 13:03 FINDINGS: Bones/joints: No acute fracture or subluxation. No focal osseous erosion. Soft tissues: Generalized soft tissue swelling. Metallic linear 14 mm foreign body projecting over the volar distal upper arm. IMPRESSION: Needle fragment projecting over the volar distal upper arm. Exam: XR Chest Exam date and time: 06/01/2021 21:08 Age: 35 years old Clinical indication: Device placement; Other: Central line placement TECHNIQUE: Imaging protocol: XR of the chest. Views: 1 view. COMPARISON: CR XR PORTABLE CHEST AP POST LINE 02/24/2019 21:08 FINDINGS: Tubes, catheters and devices: Right jugular catheter, satisfactory position. Lungs: Mild infiltrate, left lung apex. Pleural spaces: No pleural effusion. No pneumothorax. Heart/Mediastinum: No cardiomegaly. Bones/joints: No acute fracture.? IMPRESSION: 1. Right jugular catheter, satisfactory position. 2. Mild infiltrate, left lung apex. Labs Result diagrams: 06/01/21 21:00 06/01/21 21:00 Labs: Laboratory Results - last 24 hr 06/01/21 06/01/21 06/01/21 17:30 17:30 21:00 WBC RBC Hgb Hct MCV MCH MCHC RDW Plt Count MPV Immature Gran % Neutrophils % Lymphocytes % Monocytes % Eosinophils % Basophils % Nucleated RBC % Absolute Neutrophils Absolute Lymphocytes Absolute Monocytes Absolute Eosinophils Absolute Basophils VBG Lactate 0.5 L Sodium Potassium Chloride Carbon Dioxide Anion Gap BUN Creatinine Estimated GFR/1.73 m2 Glucose Calcium Magnesium Total Bilirubin AST ALT Alkaline Phosphatase Total Protein Albumin Urine Color Yellow Urine Clarity Sl Cloudy Urine pH 7.5 Ur Specific [place] 1.020 Urine Protein Negative Urine Ketones Negative Urine Blood Negative Urine Nitrite Negative Urine Bilirubin Negative Urine Urobilinogen 0.2 Ur Leukocyte Esterase Negative Urine Glucose Negative Urine Opiates Screen Negative Urine Methadone Screen Positive A Ur Barbiturates Screen Negative Ur Tricyclics Screen Negative Ur Amphetamines Screen Negative U Benzodiazepines Scrn Negative Urine Cocaine Screen Negative Ur THC Screen Negative 06/01/21 06/01/21 21:00 21:00 WBC 5.70 RBC 3.77 L Hgb 10.6 L Hct 33.9 L MCV 89.9 MCH 28.1 MCHC 31.3 L RDW 14.1 Plt Count 213 MPV 9.2 Immature Gran % 0.2 Neutrophils % 53.2 Lymphocytes % 33.5 Monocytes % 8.1 Eosinophils % 4.6 Basophils % 0.4 Nucleated RBC % 0 Absolute Neutrophils 3.04 Absolute Lymphocytes 1.91 Absolute Monocytes 0.46 Absolute Eosinophils 0.26 Absolute Basophils 0.02 VBG Lactate Sodium 137 Potassium 4.5 Chloride 104 Carbon Dioxide 28.8 Anion Gap 4.2 BUN 12 Creatinine 0.7 Estimated GFR/1.73 m2 >= 60.00 Glucose 88 Calcium 8.4 L Magnesium 1.8 Total Bilirubin 0.2 AST 13 L ALT 29 Alkaline Phosphatase 87 Total Protein 7.0 Albumin 3.1 L Urine Color Urine Clarity Urine pH Ur Specific [place] Urine Protein Urine Ketones Urine Blood Urine Nitrite Urine Bilirubin Urine Urobilinogen Ur Leukocyte Esterase Urine Glucose Urine Opiates Screen Urine Methadone Screen Ur Barbiturates Screen Ur Tricyclics Screen Ur Amphetamines Screen U Benzodiazepines Scrn Urine Cocaine Screen Ur THC Screen Last Vital Signs Temp 36.0 C L 06/01/21 16:39 Pulse 65 06/01/21 16:39 Resp 16 06/01/21 16:39 BP 127/69 06/01/21 16:39 Pulse Ox 96 06/01/21 16:39
[2021-06-01 22:18] LABS: Source Nasal/Nares
[2021-06-01 22:42] VITALS: BP 118/75; PULSE 87; RESP 18; O2SAT 98
[2021-06-01 22:54] LABS: COVID-19 PCR Negative (Negative)
[2021-06-01 23:22] VITALS: BP 126/74; PULSE 67; RESP 18; TEMP 36.9; O2SAT 95
[2021-06-01] MEDS: Gabapentin 300 MG CAP 900 MG PO (23:45)
[2021-06-02] MEDS: Methylphenidate 10 MG TAB 20 MG PO ×5 (00:37→19:37)
[2021-06-02] MEDS: CEFEPIME 2 GM in Normal Saline 100 ML IVPB ×3 (00:38→23:18)
[2021-06-02] MEDS: Acetaminophen 325 MG TAB 650 MG PO ×4 (03:13→21:09)
[2021-06-02 04:22] VITALS: BP 136/84; PULSE 63; RESP 20; TEMP 37; O2SAT 98
[2021-06-02] MEDS: Ketorolac 15 MG/ML VIAL IVP (06:21)
[2021-06-02 07:07] LABS: Abs Immature Grans 0.01 10^3/uL (0.0-0.06); Absolute Basophil Count 0.01 10^3/uL (0.0-0.2); Absolute Eosinophil Count 0.22 10^3/uL (0.0-0.7); Absolute Lymphocyte Count 1.49 10^3/uL (1.2-3.4); Absolute Monocyte Count 0.41 10^3/uL (0.1-0.8); Absolute Neutrophil Count 3.24 10^3/uL (1.2-6.7); Basophils % 0.2; Eosinophils % 4.1; HCT 33.7 % (36.0-46.0); HGB 10.5 g/dL (11.2-15.7); Immature Grans % 0.2; Lymphocytes % 27.7; MCH 27.8 pg (27.0-33.0); MCHC 31.2 % (32.0-36.0); MCV 89.2 fL (80-95); Monocytes % 7.6; Neutrophils % 60.2; Nucleated RBC 0 %; Platelet Count 193 10^3/uL (130-400); RBC 3.78 10^6/uL (3.93-5.22); RDW-SD 45.5 fL; WBC 5.38 10^3/uL (4.4-10.8)
[2021-06-02 07:24] LABS: ALT 25 U/L (14-59); AST 13 U/L (15-37); Alkaline Phosphatase 84 U/L (46-116); Anion Gap 7.3 mmol/L (3-11); BUN 10 mg/dL (7-18); Bilirubin, Total 0.2 mg/dL (0.2-1.0); CO2 26.7 mmol/L (21.0-32.0); CREATININE 0.7 mg/dL (0.55-1.02); Calcium 8.2 mg/dL (8.5-10.1); Chloride 104 mmol/L (98-107); Glucose 98 mg/dL (74-106); Potassium 4.1 mmol/L (3.5-5.1); Sodium 138 mmol/L (136-145); Total Protein 6.8 g/dL (6.4-8.2)
[2021-06-02 07:45] VITALS: BP 127/73; PULSE 62; RESP 16; TEMP 36.6; O2SAT 98
[2021-06-02] MEDS: Normal Saline Flush 10 ML SYR IVP ×3 (07:57→23:19)
[2021-06-02] MEDS: Gabapentin 400 MG CAP 1600 MG PO ×2 (07:58→19:36)
[2021-06-02] MEDS: Mirtazapine 15 MG TAB 30 MG PO ×2 (07:58→21:10)
[2021-06-02] MEDS: Methadone Liquid 10 MG/ML 125 MG PO (08:25)
[2021-06-02] MEDS: VANCOMYCIN/WATER (PEG) 1 GM/200 ML BAG IVPB ×3 (09:08→23:43)
--- NOTE | 2021-06-02 10:09 | PHACLINREV_ITS ---
Pharmacy Admission Review - Admission Clinical Review (Last Reviewed 06/01/21 @ 22:11 by Sergio Acevedo) Cellulitis of left hand (Acute) bupropion HCl [From Wellbutrin SR] Adverse Reaction (Intermediate, Unverified 06/01/21 16:42) Contraindicated Resuscitation Status Full Code Height 5 ft 8 in Weight 61.7 kg - Renal Dosing Renal Dosing: BUN 10 mg/dL (7-18) 06/02/21 06:30 Creatinine 0.7 mg/dL (0.55-1.02) 06/02/21 06:30 Medications needing adjustments: Reviewed (SCr: 0.7, eCrCl: 94.69mL/min. All medications dosed appropriately.) - Anticoagulation Anticoagulation: Hgb 10.5 g/dL (11.2-15.7) L 06/02/21 06:30 Hct 33.7 % (36.0-46.0) L 06/02/21 06:30 Plt Count 193 10^3/uL (130-400) 06/02/21 06:30 Creatinine 0.7 mg/dL (0.55-1.02) 06/02/21 06:30 DVT Prophylaxis: Reviewed Medications: Enoxaparin (Enoxaparin 40mg SC Q24H.) - Opiate Usage Evaluate Pain Scale/Pains Meds: Reviewed (Maintenance Methadone 125mg daily ordered.) Scheduled Bowel Reg ordered if on Opiates?: No (PRN Docusate, Miralax) - Relevant Labs Sodium 138 mmol/L (136-145) 06/02/21 06:30 Potassium 4.1 mmol/L (3.5-5.1) 06/02/21 06:30 Chloride 104 mmol/L (98-107) 06/02/21 06:30 Magnesium 1.8 mg/dL (1.8-2.4) 06/01/21 21:00 Electrolytes, C-Reactive P, ESR: Reviewed - DM Control DM Control: Glucose 98 mg/dL (74-106) 06/02/21 06:30 Insulin Dosing: N/A - Heart Failure/TX EF%, ANABELLA's, B-Blockers, Diuretics: N/A - BP Control BP Control: Blood Pressure 127/73 Blood Pressure 136/84 Blood Pressure 126/74 Blood Pressure 118/75 If elevated: Reviewed (Blood pressure within normal limits.) - Qtc Review If Elevated: N/A (QTc not recorded.) - IV to PO Switch IV Medications: Reviewed - Home Meds Home Med List reviewed: Reviewed (Methadone 125mg daily - Spoke with [facility] and confirmed dose of 125mg QAM at 0400 during inpatient stay 04/10/21-04/13/21. Will confirm with [facility] tomorrow when they open.) - Current meds Current Medication Order Review: Intervened (Administer Mirtazapine at bedtime, Methylphenidate 20mg QID (home meds Methylphenidate 20mg TID and Dexmethylphenidate XR 30mg daily - non-formulary, dosing Methylphenidate 20mg QID while inpatient), Gabapentin 800mg QID (ordered as 1600mg BID, same total daily dose).) - Comments Comments/Follow Ups: Continue to monitor labs, vancomycin trough, vitals and for medication changes. Antibiotic Activity - Pharmacy Antibiotic Review Pharmacy Antibiotic Activity: Reviewed, no change (Vancomycin (Day 2), Cefepime (Day 1) pending culture and sensitivies.)
[2021-06-02 12:01] VITALS: BP 118/74; PULSE 73; RESP 18; TEMP 36.6; O2SAT 97
--- NOTE | 2021-06-02 12:36 | PGE_ITS ---
Date of Service Date of service: 06/02/21 Time of Service: 12:36 Assessment and Plan Assessment and plan (1) Cellulitis of left hand: Status: Acute Assessment and plan: This is a 35-year-old lady who had cedar wood splinters into her left hand and fingers about 3 days prior to admission withprogressing cellulitis which is involving extensive amount of soft tissue of the hand and wrist. There are no tender epitrochlear lymph nodes and no fever or leukocytosis. She has a central line placed. She will continue on vancomycin and cefepime with close monitoring. Symptoms and surgical consultation if needed. Cont methadone. She endorses that she does not want narcotic pain meds. Cont prn NSAIDs and acetaminophen. Wrist xray, of note, indicated a needle fragment. Age of this is undetermined but she endorses being clean. UDS was negative except for methadone. (2) Opioid dependence: Status: Chronic Assessment and plan: Confirm and continue maintenance meds daily. She takes this in the morning. (3) ADHD, hyperactive-impulsive type: Status: Chronic Assessment and plan: Continue high-dose methylphenidate dose 4 times daily. (4) Chronic hepatitis C without hepatic coma: Status: Chronic Assessment and plan: Patient states that has not been treated as of yet and caution for exposure. Subjective Subjective Patient reports: no new complaints, still having pain (Left hand), tolerating a regular diet and afebrile; denies nausea or vomiting Exam Narrative Exam Narrative: General: Patient appears older than stated age, moderately obese, in no acute distress with slightly pressured speech and anxious. Good eye contact. She is alert and oriented x3. HEENT: Normocephalic, eyes pupils equal and reactive to light symmetrically, extraocular movement intact and sclera anicteric. Oropharynx with dry mucosa and poor dentition Neck: Supple without JVD. Lungs: Fair aeration and clear to auscultation percussion without localizing rales or rhonchi. Heart: Regular rate and rhythm with no murmurs or gallops.. Breast: Exam deferred. Abdomen: Mildly obese contour, soft nontender to palpate with no palpable hepatosplenomegaly. Bowel sounds positive all quadrants. Genitalia/rectal: Exam deferred. Skin: Normal color except over left hand and wrist where there is increased erythema but no ulceration. Normal warmth and turgor. Actinic changes over sun exposed areas. Skin is dry. Extremities: Right BKA with prosthesis in place, otherwise no edema, cyanosis or clubbing. Joints have fair range of motion. Left wrist and hand has tense edema with erythema and tenderness to any movement. No ulcerations noted but multiple superficial puncture wounds over the tips of the fingers. No discharge comes from the lesions. Peripheral pulses intact. Neuro: Cranial nerves II through XII grossly intact, no focal motor deficits. Psych: Slightly anxious with pressured speech, some attention deficit with wandering conversation, no abnormal thought processes. Remote and recent memory intact. Const General: cooperative, no acute distress and disheveled Nutritional Appearance: thin Orientation: alert and oriented x3 Eyes General: appearance normal, both eyes and all related structures Sclera: sclerae normal Resp Effort & Inspection: normal respiratory effort Auscultation: clear to auscultation bilaterally Cardio Rate: regular rate Rhythm: regular rhythm Heart Sounds: S1 normal and S2 normal GI Palpation: soft and nontender Skin Rashes: no rashes Trauma: puncture (Several on fingers of both hands; crusted over.) Neuro General: no focal motor deficits Cranial Nerves: facial strength normal Cognition: normal cognition Speech: speech normal Extrem General: no pedal edema and no calf tenderness Left upper extremity: hand (Dorsal swelling/mild erythema including the wrist& forearm.) Psych Mental Status: mental status grossly normal Mood: anxious mood Affect: normal affect (mildly animated) Objective Last Vital Signs Temp 36.6 C 06/02/21 12:01 Pulse 73 06/02/21 12:01 Resp 18 06/02/21 12:01 BP 118/74 06/02/21 12:01 Pulse Ox 97 06/02/21 12:01 Laboratory Results - last 24 hr 06/01/21 06/01/21 06/01/21 17:30 17:30 21:00 WBC RBC Hgb Hct MCV MCH MCHC RDW Plt Count MPV Immature Gran % Neutrophils % Lymphocytes % Monocytes % Eosinophils % Basophils % Nucleated RBC % Absolute Neutrophils Absolute Lymphocytes Absolute Monocytes Absolute Eosinophils Absolute Basophils VBG Lactate 0.5 L Sodium Potassium Chloride Carbon Dioxide Anion Gap BUN Creatinine Estimated GFR/1.73 m2 Glucose Calcium Magnesium Total Bilirubin AST ALT Alkaline Phosphatase Total Protein Albumin Urine Color Yellow Urine Clarity Sl Cloudy Urine pH 7.5 Ur Specific [place] 1.020 Urine Protein Negative Urine Ketones Negative Urine Blood Negative Urine Nitrite Negative Urine Bilirubin Negative Urine Urobilinogen 0.2 Ur Leukocyte Esterase Negative Urine Glucose Negative Urine Opiates Screen Negative Urine Methadone Screen Positive A Ur Barbiturates Screen Negative Ur Tricyclics Screen Negative Ur Amphetamines Screen Negative U Benzodiazepines Scrn Negative Urine Cocaine Screen Negative Ur THC Screen Negative COVID-19 Source SARS-CoV-2 (PCR) Hep Bs Antigen Hepatitis C Antibody 06/01/21 06/01/21 06/01/21 21:00 21:00 21:40 WBC 5.70 RBC 3.77 L Hgb 10.6 L Hct 33.9 L MCV 89.9 MCH 28.1 MCHC 31.3 L RDW 14.1 Plt Count 213 MPV 9.2 Immature Gran % 0.2 Neutrophils % 53.2 Lymphocytes % 33.5 Monocytes % 8.1 Eosinophils % 4.6 Basophils % 0.4 Nucleated RBC % 0 Absolute Neutrophils 3.04 Absolute Lymphocytes 1.91 Absolute Monocytes 0.46 Absolute Eosinophils 0.26 Absolute Basophils 0.02 VBG Lactate Sodium 137 Potassium 4.5 Chloride 104 Carbon Dioxide 28.8 Anion Gap 4.2 BUN 12 Creatinine 0.7 Estimated GFR/1.73 m2 >= 60.00 Glucose 88 Calcium 8.4 L Magnesium 1.8 Total Bilirubin 0.2 AST 13 L ALT 29 Alkaline Phosphatase 87 Total Protein 7.0 Albumin 3.1 L Urine Color Urine Clarity Urine pH Ur Specific [place] Urine Protein Urine Ketones Urine Blood Urine Nitrite Urine Bilirubin Urine Urobilinogen Ur Leukocyte Esterase Urine Glucose Urine Opiates Screen Urine Methadone Screen Ur Barbiturates Screen Ur Tricyclics Screen Ur Amphetamines Screen U Benzodiazepines Scrn Urine Cocaine Screen Ur THC Screen COVID-19 Source SARS-CoV-2 (PCR) Hep Bs Antigen Cancelled Hepatitis C Antibody Cancelled 06/01/21 06/02/21 06/02/21 21:55 06:30 06:30 WBC 5.38 RBC 3.78 L Hgb 10.5 L Hct 33.7 L MCV 89.2 MCH 27.8 MCHC 31.2 L RDW 14.0 Plt Count 193 MPV 9.0 Immature Gran % 0.2 Neutrophils % 60.2 Lymphocytes % 27.7 Monocytes % 7.6 Eosinophils % 4.1 Basophils % 0.2 Nucleated RBC % 0 Absolute Neutrophils 3.24 Absolute Lymphocytes 1.49 Absolute Monocytes 0.41 Absolute Eosinophils 0.22 Absolute Basophils 0.01 VBG Lactate Sodium 138 Potassium 4.1 Chloride 104 Carbon Dioxide 26.7 Anion Gap 7.3 BUN 10 Creatinine 0.7 Estimated GFR/1.73 m2 >= 60.00 Glucose 98 Calcium 8.2 L Magnesium Total Bilirubin 0.2 AST 13 L ALT 25 Alkaline Phosphatase 84 Total Protein 6.8 Albumin 3.0 L Urine Color Urine Clarity Urine pH Ur Specific [place] Urine Protein Urine Ketones Urine Blood Urine Nitrite Urine Bilirubin Urine Urobilinogen Ur Leukocyte Esterase Urine Glucose Urine Opiates Screen Urine Methadone Screen Ur Barbiturates Screen Ur Tricyclics Screen Ur Amphetamines Screen U Benzodiazepines Scrn Urine Cocaine Screen Ur THC Screen COVID-19 Source Nasal/Nares SARS-CoV-2 (PCR) Negative Hep Bs Antigen Hepatitis C Antibody
--- NOTE | 2021-06-02 13:02 | PDOC.CMIN ---
- If Service Date Differs Date of service: 06/02/21 Time of Service: 13:03 Care Management Initial Assess REASON FOR HOSPITALIZATION:: Cellulitis Left Hand PAST MEDICAL HISTORY/PAST SURGICAL HISTORY:: Medical History . ADHD. Alcohol abuse. Amputation of right foot. COVID-19 virus infection. Depression. difficulty bonding with 2nd child. child removed from her custody. was on Wellbutrin but had sz and not on meds at this time. has appt with counselor 03/2015. Effusion, right knee. Herpes, vulvar. History of depression. HSV infection. Hx of infant who one week after . ? HSV or H1N1 infection. Pt has been on prophylaxis with pregnancies. Hx of cocaine abuse. Paresthesia of both hands. Personality disorder. . examination or test, positive result. PTSD (post-traumatic stress disorder). Surgical History . Amputation. 12/23/16;[facility]; RIGHT BELOW THE KNEE. section (11/24/12). PCD @ 35w. [facility]. [facility]. [id number]. [facility] [place]. 03/26/15 RCD. Pt arrived in labor and declined SUN. F. Jessica. PREVIOUS FUNCTIONAL STATUS/SOCIAL/FAMILY SUPPORTS:: Denisse resides in [facility] with her mother, significant other and child. She is independent at baseline, with disability determination due to BKA. Denisse is in [facility] recovery at this time attached to maintenance program. CURRENT FUNCTIONAL STATUS:: Denisse is sitting on the side of her bed, on the phone-reviewing visitor policy. She is friendly in interaction and shares no concerns at this time. She is hopeful she can discharge tomorrow; per MD, Denisse may require medical terminologist IV ABX, dependent on I&D consult, cultures, etc. ADVANCE DIRECTIVES:: None on file. Has patient been provided with info about the portal/API?: Yes Did the patient sign up for the portal?: No CODE STATUS:: Full Code INSURANCE COVERAGE / FINANCIAL ISSUES:: Medicaid CURRENT HOME/COMMUNITY SERVICES/EQUIPMENT:: Opiate maintenance program: Methadone daily dosing. PRIMARY CARE PHYSICIAN:: Ivonne Hampton POTENTIAL DISCHARGE NEEDS:: Resumption of NUPUR maintenance program. Follow up appointments. PATIENT/FAMILY EDUCATION NEEDS:: Review discharge instructions, discuss Ask Me Three. ANTICIPATED BARRIERS TO DISCHARGE:: None identified at this time. TRANSPORTATION:: Via private vehicle with family. PLAN:: Denisse continues to be treated with IV ABX, anticipate I&D consult and surgical consult, if needed. Methadone treatment continues while inpatient-last dose letter will be provided upon discharge for transition of care. Denisse is advocating against narcotic pain meds. She will follow up with community based providers and transport via private vehicle with family. CM continues to follow.
[2021-06-02 15:54] VITALS: BP 130/79; PULSE 82; RESP 18; TEMP 37.7; O2SAT 100
[2021-06-02 19:32] VITALS: BP 125/76; PULSE 72; RESP 18; TEMP 36.5; O2SAT 98
[2021-06-02] MEDS: Enoxaparin 40 MG/0.4 ML SYR SC (21:11)
[2021-06-02 23:49] VITALS: BP 110/65; PULSE 66; RESP 18; TEMP 36.6; O2SAT 96
--- NOTE | 2021-06-03 | DI.US_ITS ---
Exam(s) US SOFT TISSUE EXTREMITY EXAM: US SOFT TISSUE EXTREMITY CLINICAL HISTORY: Cellulitis. Swelling of dorsum of Left hand.. TECHNIQUE: Ultrasound was performed using standard protocol. COMPARISON: CR,XR XR HAND LT COMPLETE from 06/01/2021 FINDINGS: Sonographic assessment utilizing grayscale and color Doppler imaging was performed and targeted to th e area of clinical concern at the dorsal aspect of the hand. There is a fluid collection measuring 4.2 cm in length by 1.1 x 2.5 cm which surrounds the extensor t endons. No intrinsic tendon abnormality is visible. There is severe edema in the subcutaneous fat b ut no drainable collection.. IMPRESSION: Cellulitis of the subcutaneous tissues of the dorsum of the hand without drainable collection. Fluid collection seen surrounding the extensor tendons at the dorsum of the hand. DATA REPOSITORY:
--- NOTE | 2021-06-03 00:28 | NUR.NOTE ---
Patient is very drowsy keeps falling asleep during assessment. Adamantly refused for left foot to be assessed beyond her heel, which is very callous, lotion applied
[2021-06-03 03:40] VITALS: BP 109/70; PULSE 66; RESP 18; TEMP 36.1; O2SAT 99
[2021-06-03 07:03] LABS: Vancomycin, Trough 16.4 ug/mL (10.0-20.0)
[2021-06-03 07:38] VITALS: BP 130/73; PULSE 79; RESP 17; TEMP 38; O2SAT 99
[2021-06-03] MEDS: Gabapentin 400 MG CAP 1600 MG PO ×2 (07:51→19:07)
[2021-06-03] MEDS: Methylphenidate 10 MG TAB 20 MG PO ×4 (07:51→19:06)
[2021-06-03] MEDS: Acetaminophen 325 MG TAB 650 MG PO ×2 (07:52→18:18)
[2021-06-03] MEDS: VANCOMYCIN/WATER (PEG) 1 GM/200 ML BAG IVPB ×2 (07:58→16:19)
[2021-06-03] MEDS: Normal Saline Flush 10 ML SYR IVP ×3 (07:58→18:19)
[2021-06-03] MEDS: Methadone Liquid 10 MG/ML 125 MG PO (08:14)
[2021-06-03] MEDS: Ketorolac 30 MG/ML VIAL IVP ×2 (09:53→18:17)
[2021-06-03 11:26] VITALS: BP 114/68; PULSE 75; RESP 17; TEMP 36.5; O2SAT 96
[2021-06-03] MEDS: CEFEPIME 2 GM in Normal Saline 100 ML IVPB ×2 (11:28→23:24)
--- NOTE | 2021-06-03 13:35 | W.PM.PROGNOT ---
Date of Service Date of service: 06/03/21 Time of Service: 13:36 Assessment and Plan Assessment and plan (1) Cellulitis of left hand: Status: Acute Assessment and plan: This is a 35-year-old lady who had cedar wood splinters into her left hand and fingers about 3 days prior to admission withprogressing cellulitis which is involving extensive amount of soft tissue of the hand and wrist. There are no tender epitrochlear lymph nodes and no fever or leukocytosis. She has a central line placed. She will continue on vancomycin and cefepime with close monitoring. Symptoms and surgical consultation if needed. No improvement in swelling. US of hand: Cellulitis of the subcutaneous tissues of the dorsum of the hand without drainable collection.? Fluid collection seen surrounding the extensor tendons at the dorsum of the hand.? Will elevate LUE with stockinette suspended from IV pole. Cont methadone. She endorses that she does not want narcotic pain meds. Cont prn Toradol and acetaminophen. Wrist xray, of note, indicated a needle fragment. Age of this is undetermined but she endorses being clean. UDS was negative except for methadone. (2) Opioid dependence: Status: Chronic Assessment and plan: Cont methadone. (3) ADHD, hyperactive-impulsive type: Status: Chronic Assessment and plan: Continue high-dose methylphenidate dose 4 times daily. (4) Chronic hepatitis C without hepatic coma: Status: Chronic Assessment and plan: Patient states that has not been treated as of yet and caution for exposure. Subjective Subjective Patient reports: no new complaints, still having pain (L hand and wrist. ) and fever (38 this AM); denies nausea, vomiting or shortness of breath Interval history since last seen: She endorses no improvement in the swelling of the dorsum of Left hand and wrist. Exam Const General: cooperative, no acute distress and disheveled Nutritional Appearance: thin Orientation: alert and oriented x3 Eyes General: appearance normal, both eyes and all related structures Sclera: sclerae normal Resp Effort & Inspection: normal respiratory effort Auscultation: clear to auscultation bilaterally Cardio Rate: regular rate Rhythm: regular rhythm Heart Sounds: S1 normal and S2 normal GI Palpation: soft and nontender Skin Rashes: no rashes Trauma: puncture (Several on fingers of both hands; crusted over.) Neuro General: no focal motor deficits Cranial Nerves: facial strength normal Cognition: normal cognition Speech: speech normal Extrem General: no pedal edema and no calf tenderness Left upper extremity: hand (Dorsal swelling/mild erythema including the wrist& forearm.) Psych Mental Status: mental status grossly normal Mood: anxious mood Affect: normal affect (mildly animated) Objective Last Vital Signs Temp 36.5 C 06/03/21 11:26 Pulse 75 06/03/21 11:26 Resp 17 06/03/21 11:26 BP 114/68 06/03/21 11:26 Pulse Ox 96 06/03/21 11:26 Laboratory Results - last 24 hr 06/03/21 06:00 Vancomycin Trough 16.4
[2021-06-03 15:55] VITALS: BP 118/70; PULSE 68; RESP 16; TEMP 36.7; O2SAT 97
--- NOTE | 2021-06-03 17:00 | CMPROGNOTE_ITS ---
- If Service Date Differs Date of service: 06/03/21 Time of Service: 17:00 Care Management Progress Note S/O: Denisse remains inpatient, on IV ABX through central line. She remains pleasant in interaction with no concerns at this time. CM continues to follow. A: 35 year old female admitted to [facility] 06/01/21 Cellulitis Left Hand P: Denisse continues to be treated with IV ABX, anticipate I&D consult and surgical consult, if needed. Methadone treatment continues while inpatient-last dose letter will be provided upon discharge for transition of care. Denisse is advocating against narcotic pain meds. She will follow up with community based providers and transport via private vehicle with family. CM continues to follow.
[2021-06-03 19:56] VITALS: BP 120/85; PULSE 87; RESP 20; TEMP 37.2; O2SAT 98
[2021-06-03] MEDS: Mirtazapine 15 MG TAB 30 MG PO (21:35)
[2021-06-04] MEDS: VANCOMYCIN/WATER (PEG) 1 GM/200 ML BAG IVPB ×3 (00:15→16:39)
[2021-06-04 00:28] VITALS: BP 119/79; PULSE 72; RESP 20; TEMP 36.5; O2SAT 98
[2021-06-04 03:44] VITALS: BP 109/65; PULSE 63; RESP 14; TEMP 36.7; O2SAT 96
[2021-06-04 06:56] LABS: HGB 10.2 g/dL (11.2-15.7); MCH 27.8 pg (27.0-33.0); MCHC 30.9 % (32.0-36.0); MCV 89.9 fL (80-95); MPV 8.9 fL (8.0-11.0); Platelet Count 195 10^3/uL (130-400); RBC 3.67 10^6/uL (3.93-5.22); RDW 13.9 % (11.7-14.6); RDW-SD 45.5 fL; WBC 3.81 10^3/uL (4.4-10.8)
[2021-06-04 08:11] VITALS: BP 115/78; PULSE 80; RESP 18; TEMP 36.2; O2SAT 99
[2021-06-04] MEDS: Methadone Liquid 10 MG/ML 125 MG PO (08:20)
[2021-06-04] MEDS: Ketorolac 30 MG/ML VIAL IVP ×2 (08:35→18:22)
[2021-06-04] MEDS: Normal Saline Flush 10 ML SYR IVP ×5 (08:35→20:48)
[2021-06-04] MEDS: Gabapentin 400 MG CAP 1600 MG PO ×2 (08:35→20:45)
[2021-06-04] MEDS: Methylphenidate 10 MG TAB 20 MG PO ×4 (08:35→20:45)
--- NOTE | 2021-06-04 11:02 | CMPROGNOTE_ITS ---
- If Service Date Differs Date of service: 06/04/21 Time of Service: 11:02 Care Management Progress Note S/O: Denisse was sitting up on the side of her bed when CM met with her. She stated that she is feeling well except for the pain in her hands. She explained to CM that she was moving a wooden chest and sustained some slivers in both of her hands which have since become infected. Denisse's main concern was that she receive a copy of the urine drug screen done on admission which was negative for any drugs other than the methadone she receives at [facility]. The nursing executive of the unit was able to provide her with this information. Denisse stated that she needs it for her oracle technical architect who is advocating for her to regain custody of her daughter. A: 35 year old female admitted to [facility] 06/01/21 Cellulitis Left Hand P: Denisse continues to be treated with IV antibiotics for cellulitis of her left hand. Methadone treatment continues while inpatient-last dose letter will be provided upon discharge for transition of care. Denisse is advocating against narcotic pain meds. She will follow up with community based providers and transport via private vehicle with family. CM will continue to support discharge planning concerns.
[2021-06-04 11:19] VITALS: BP 121/71; PULSE 68; RESP 18; TEMP 36.5; O2SAT 96
[2021-06-04] MEDS: CEFEPIME 2 GM in Normal Saline 100 ML IVPB (11:32)
[2021-06-04 14:37] VITALS: BP 134/83; PULSE 83; RESP 18; TEMP 36.6; O2SAT 95
[2021-06-04] MEDS: Acetaminophen 325 MG TAB 650 MG PO ×2 (16:37→22:01)
--- NOTE | 2021-06-04 17:49 | W.PM.PROGNOT ---
Date of Service Date of service: 06/04/21 Time of Service: 17:49 Assessment and Plan Assessment and plan (1) Cellulitis of left hand: Status: Acute Assessment and plan: This is a 35-year-old lady who had cedar wood splinters into her left hand and fingers about 3 days prior to admission withprogressing cellulitis which is involving extensive amount of soft tissue of the hand and wrist. There are no tender epitrochlear lymph nodes and no fever or leukocytosis. She has a central line placed. MRSA nasal swab positive. Stopped cefepime and continue vancomycin. Improvement in hand swelling and pain. US of hand: Cellulitis of the subcutaneous tissues of the dorsum of the hand without drainable collection.? Fluid collection seen surrounding the extensor tendons at the dorsum of the hand.? Ordere to elevate LUE with stockinette suspended from IV pole was not carried out yesterday but was today; should see more improvement by tomorrow. Cont methadone. She endorses that she does not want narcotic pain meds. Cont prn Toradol and acetaminophen. Wrist xray, of note, indicated a needle fragment. Age of this is undetermined but she endorses being clean. UDS was negative except for methadone. (2) Opioid dependence: Status: Chronic Assessment and plan: Cont methadone. (3) ADHD, hyperactive-impulsive type: Status: Chronic Assessment and plan: Continue high-dose methylphenidate dose 4 times daily. (4) Chronic hepatitis C without hepatic coma: Status: Chronic Assessment and plan: Patient states that has not been treated as of yet and caution for exposure. Subjective Subjective Patient reports: no new complaints and fever (38 this AM); denies nausea, vomiting or shortness of breath Exam Narrative Exam Narrative: General: Patient appears older than stated age, moderately obese, in no acute distress with slightly pressured speech and anxious. Good eye contact. She is alert and oriented x3. HEENT: Normocephalic, eyes pupils equal and reactive to light symmetrically, extraocular movement intact and sclera anicteric. Oropharynx with dry mucosa and poor dentition Neck: Supple without JVD. Lungs: Fair aeration and clear to auscultation percussion without localizing rales or rhonchi. Heart: Regular rate and rhythm with no murmurs or gallops.. Breast: Exam deferred. Abdomen: Mildly obese contour, soft nontender to palpate with no palpable hepatosplenomegaly. Bowel sounds positive all quadrants. Genitalia/rectal: Exam deferred. Skin: Normal color except over left hand and wrist where there is increased erythema but no ulceration. Normal warmth and turgor. Actinic changes over sun exposed areas. Skin is dry. Extremities: Right BKA with prosthesis in place, otherwise no edema, cyanosis or clubbing. Joints have fair range of motion. Left wrist and hand has tense edema with erythema and tenderness to any movement. No ulcerations noted but multiple superficial puncture wounds over the tips of the fingers. No discharge comes from the lesions. Peripheral pulses intact. Neuro: Cranial nerves II through XII grossly intact, no focal motor deficits. Psych: Slightly anxious with pressured speech, some attention deficit with wandering conversation, no abnormal thought processes. Remote and recent memory intact. Const General: cooperative, no acute distress and disheveled Nutritional Appearance: thin Orientation: alert and oriented x3 Eyes General: appearance normal, both eyes and all related structures Sclera: sclerae normal Resp Effort & Inspection: normal respiratory effort Auscultation: clear to auscultation bilaterally Cardio Rate: regular rate Rhythm: regular rhythm Heart Sounds: S1 normal and S2 normal GI Palpation: soft and nontender Skin Rashes: no rashes Trauma: puncture (Several on fingers of both hands; crusted over.) Neuro General: no focal motor deficits Cranial Nerves: facial strength normal Cognition: normal cognition Speech: speech normal Extrem General: no pedal edema and no calf tenderness Left upper extremity: hand (Improved Dorsal swelling/mild erythema including the wrist& forearm.) Psych Mental Status: mental status grossly normal Mood: anxious mood Affect: normal affect (mildly animated) Objective Last Vital Signs Temp 36.6 C 06/04/21 14:37 Pulse 83 06/04/21 14:37 Resp 18 06/04/21 14:37 BP 134/83 06/04/21 14:37 Pulse Ox 95 06/04/21 14:37 Laboratory Results - last 24 hr 06/04/21 06:10 WBC 3.81 L RBC 3.67 L Hgb 10.2 L Hct 33.0 L MCV 89.9 MCH 27.8 MCHC 30.9 L RDW 13.9 Plt Count 195 MPV 8.9
[2021-06-04 20:42] VITALS: BP 128/84; PULSE 84; RESP 19; TEMP 36.2; O2SAT 97
[2021-06-04] MEDS: Enoxaparin 40 MG/0.4 ML SYR SC (21:18)
[2021-06-04] MEDS: Mirtazapine 15 MG TAB 30 MG PO (21:18)
[2021-06-05 00:20] VITALS: BP 119/72; PULSE 81; RESP 19; TEMP 37.1; O2SAT 100
[2021-06-05] MEDS: Ketorolac 30 MG/ML VIAL IVP ×2 (00:23→08:31)
[2021-06-05] MEDS: VANCOMYCIN/WATER (PEG) 1 GM/200 ML BAG IVPB (00:24)
[2021-06-05] MEDS: Normal Saline Flush 10 ML SYR IVP ×2 (00:24→08:31)
[2021-06-05 05:20] VITALS: BP 119/71; PULSE 68; RESP 19; TEMP 36.3; O2SAT 99
[2021-06-05 07:48] VITALS: BP 139/73; PULSE 83; RESP 18; TEMP 37.3; O2SAT 99
--- NOTE | 2021-06-05 08:26 | W.PM.DS.N ---
Date of service: 06/05/21 Time of Service: 08:26 DS: Diagnosis Discharge Diagnosis (1) Cellulitis of left hand: Status: Acute (2) Opioid dependence: Status: Chronic (3) ADHD, hyperactive-impulsive type: Status: Chronic (4) Chronic hepatitis C without hepatic coma: Status: Chronic Discharge Plan Disposition Patient Disposition: HOME Condition: Good Discharge Details Reason For Visit: Cellulitis Left Hand Admit Date/Time: 06/01/21 21:54 Admit Provider: Sergio Acevedo Attending Provider: Sergio Acevedo Primary Care Provider: Ivonne Hampton Hospital Course Hospital Course: This is a 35-year-old female patient with history of IV drug use and chronic hep C on chronic methadone who presented to the ED with swelling of her left hand having been sent home AMA refusing lab work or imaging but apparently on clindamycin now returning with worsening symptoms of swelling and not able to move her hand.? She gives a history of having splinters in both hands that eventually became infected appearing. Denies IV drug use recently.? UDS negative other than for her prescribed methadone. She has failed outpatient therapy with clindamycin and imaging did not reveal any soft tissue gas or evidence of osteomyelitis with surgeon reviewing imaging.? IV Access obtained with central line. No elevated WBC or fever. PRN Toradol IV initiated. Cont methadone. ? Patient offers no other new complaints.? She is disabled with her right BKA . Vancomycin and cefepime initiated. Her hand swelling initially persisted until her affected LUE was elevated by suspending from an IV pole. This decreased the swelling significantly. During this stay an US of the hand was performed that showed no abscess. The erythema diminished significantly, as did the pain. She was transitioned to Bactrim DS BID for 7 days as outpatient. PCP follow up in 1 week. Home Meds and New Rx's Prescriptions: New Acetaminophen [Tylenol] 650 mg PO Q4H PRN PRNQty: 0 0RF sulfamethoxazole-trimethoprim 800-160 mg tablet 1 tab PO BID Qty: 14 0RF Continued naloxone [Narcan] 4 mg/actuation spray,non-aerosol 4 mg intranasal Q2M PRN0RF Rx Instructions: spray 1 dose into ONE nostril; alternate nostrils w each dose until help arrives methylphenidate HCl 30 mg capsule,ER biphasic 50-50 30 mg PO DAILY 0RF Label Comments: TAKE 1 CAPSULE BY MOUTH EVERY DAY Rx Instructions: Dexmethylphenidate ER 30mg QAM, Methylphenidate IR 20mg TID gabapentin 800 mg tablet 800 mg PO QID 0RF Label Comments: TAKE ONE TABLET BY MOUTH FOUR TIMES A DAY methadone 10 mg/mL Concentrate 125 mg PO DAILY 0RF Rx Instructions: CONFIRMED DOSE WITH [facility] 04/10/21-04/13/21. 125MG QAM AT 0400. WILL CONTACT LORIN IN AM TO CONFIRM CURRENT DOSING. methylphenidate HCl 20 mg tablet 20 mg PO TID 0RF Label Comments: TAKE 1 TABLET BY MOUTH THREE TIMES DAILY. MAY FILL WHEN FOCALIN DUE Rx Instructions: Dexmethylphenidate ER 30mg QAM, Methylphenidate IR 20mg TID mirtazapine 30 mg tablet 30 mg PO HS 0RF Label Comments: TAKE 1 TABLET BY MOUTH AT BEDTIME Discharge Instructions Instructions: Cellulitis (GEN) Additional Instructions: Elevate Left hand above heart level frequently throughout the day and overnight. Stand Alone Forms: Nursing Discharge Form Referrals: Ivonne Hampton [Primary Care Provider] - 06/20/21 8:30 am Activity:: Activity as Tolerated Equipment/Supplies:: No Equipment Needed Diet:: As Tolerated Discharge Orders Discharge Orders: Discharge Order (Routine); Ordered 06/05/21 Ordered By: Ray Khan Discharge Data Discharge Date/Time-TO BE ENTERED AT DEPARTURE: 06/05/21 09:01 DS: Summary Time Spent with Patient providing and/or coordinating discharge services: Greater than 30 minutes Status at Discharge Functional status at discharge: independent ambulation Overall status at discharge: patient is progressing back to baseline Mental Status: mental status grossly normal Speech and Movement: speech and movement normal Mood: anxious mood Affect: normal affect (mildly animated) Exam Const General: cooperative, no acute distress and disheveled Nutritional Appearance: thin Orientation: alert and oriented x3 Eyes General: appearance normal, both eyes and all related structures Sclera: sclerae normal Resp Effort & Inspection: normal respiratory effort Auscultation: clear to auscultation bilaterally Cardio Rate: regular rate Rhythm: regular rhythm Heart Sounds: S1 normal and S2 normal GI Palpation: soft and nontender Skin Rashes: no rashes Trauma: puncture (Several on fingers of both hands; crusted over.) Neuro General: no focal motor deficits Cranial Nerves: facial strength normal Cognition: normal cognition Speech: speech normal Extrem General: no pedal edema and no calf tenderness Left upper extremity: hand (Improved Dorsal swelling/mild erythema including the wrist& forearm.) Psych Mental Status: mental status grossly normal Speech and Movement: speech and movement normal Mood: anxious mood Affect: normal affect (mildly animated) DS: Data Vitals/I&O Vitals and I&O: Vital Signs Temperature 37.3 C 06/05/21 07:48 Temperature Source Tympanic 06/05/21 07:48 Pulse 83 06/05/21 07:48 Pulse Rhythm Regular 06/05/21 03:23 Respiratory Rate 18 06/05/21 07:48 Respiratory Effort Non-Labored 06/05/21 03:23 Respiratory Depth Normal 06/05/21 03:23 Respiratory Pattern Normal 06/05/21 03:23 Blood Pressure 139/73 06/05/21 07:48 Blood Pressure Position Sitting 06/01/21 16:39 Pulse Oximetry 99 06/05/21 07:48 Oxygen Delivery Method Room Air 06/05/21 07:48 Oxygen Flow Rate 0 06/05/21 07:48 Pain Level 6 06/05/21 07:48 Comment 06/01/21 16:39 Intake & Output 06/04/21 06/04/21 06/05/21 11:59 23:59 11:59 Intake Total 1000 / 1830 830 / 1830 120 / 120 Output Total 200 / 200 Balance 800 / 1630 830 / 1630 120 / 120 Weight 65.9 kg 66.3 kg Intake: IV 500 / 830 330 / 830 20 / 20 Oral 500 / 1000 500 / 1000 100 / 100 Output: Urine 200 / 200 Other: Urine Color Yellow Yellow Yellow Urine Appearance Clear Clear Clear Urine Odor Normal Normal Normal Comment unknown amount, pt stated she voided Voiding Methods Toilet Toilet Toilet Data Completed and Pending Labs on day of discharge: Labs from last 24 hours 06/05/21 06:35 Vancomycin Trough Pending Preliminary micro results at discharge 06/01/21 21:00 Blood Culture - Preliminary Blood NO GROWTH 72 HOURS 06/01/21 18:10 Blood Culture - Preliminary Blood NO GROWTH 72 HOURS PFSH All Active Problems Cellulitis of left hand (Acute) Foreign body in foot, left (Acute) Localized swelling of left lower extremity (Acute) Cellulitis of hand, right (Acute) Cellulitis (Acute) Throat pain in adult (Acute) (Acute) Smoker (Acute) Viral illness (Acute) Dehydration (Acute) ADHD, hyperactive-impulsive type (Chronic 05/14/16) Subacute endocarditis (Acute 01/22/16) 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 Family court is close to resolved - will end . She is expecting 1st daughter to come home. Depression (Acute 01/11/15) Chronic hepatitis C without hepatic coma (Chronic 01/11/15) Bacterial vaginosis (Acute 05/24/13) Rx with Metronidazole cream given 04/19/15. Anemia of chronic disease (Acute 01/17/16) Insomnia (Acute) Discharge planning issues (Acute) DVT prophylaxis (Acute) Fever (Acute) Prepatellar bursitis of right knee (Acute) Edema (Acute) Mitral regurgitation (Chronic) Opioid dependence (Chronic) Anemia (Chronic) Anxiety (Chronic) Medical History ADHD Alcohol abuse Amputation of right foot COVID-19 virus infection Depression difficulty bonding with 2nd child. child removed from her custody. was on Wellbutrin but had sz and not on meds at this time. has appt with counselor 03/2015 Effusion, right knee Herpes, vulvar History of depression HSV infection Hx of who one week after . ? HSV or H1N1 infection. Pt has been on prophylaxis with pregnancies. Hx of cocaine abuse Paresthesia of both hands Personality disorder examination or test, positive result PTSD (post-traumatic stress disorder) Surgical History Amputation 12/23/16;[facility]; RIGHT BELOW THE KNEE section (11/24/12) PCD @ 35w. IUGR. [facility]. [id number]. [facility] [place]. 03/26/[place] RCD. Pt arrived in labor and declined SUN. Chad Lopez. Family History Mother No problems noted. Father No problems noted. Brother No problems noted. Grandfather No problems noted. Grandfather No problems noted. Grandmother No problems noted. Grandmother No problems noted. Son No problems noted. Son No problems noted. Daughter No problems noted. Daughter No problems noted. Social History Smoking/Tobacco Use Status: Current every day Tobacco Type: cigarettes Smoking risk assessment performed?: Yes Alcohol Intake: former Drug use: Current Sobriety Substance use type: former substance user, marijuana, crack/cocaine and heroin Do you feel safe at home: Yes Do you feel safe in your relationship?: Yes History History 4 Para 4 Hx # Term Pregnancies Multiple births Hx # Pregnancies Ectopic pregnancies AB induced Hx Number of Living Children 3 AB spontaneous Past Pregnancies Del. Date GA/Weeks # Outcome Route Wgt Sex Labor Lgth Anesthesia Location Prov Complic 12/28/20 25 Delivery Date: 12/28/20 Last Updated by: Roxanna Rocha LPN Patient transferred OB care to [facility]
[2021-06-05] MEDS: Gabapentin 400 MG CAP 1600 MG PO (08:29)
[2021-06-05] MEDS: Methylphenidate 10 MG TAB 20 MG PO (08:29)
[2021-06-05] MEDS: Methadone Liquid 10 MG/ML 125 MG PO (08:30)
[2021-06-05] MEDS: Bacitracin 1 PACKET (08:45)
[2021-06-05 10:08] LABS: Vancomycin, Trough 19.8 ug/mL (10.0-20.0)
--- NOTE | 2021-06-05 11:49 | CMDISCH_ITS ---
- If Service Date Differs Date of service: 06/05/21 Time of Service: 11:49 LACE Index Scoring Tool - Questions: Length of Stay (in days): 4 - 6 Acuity (Admit via E.D.?): Yes E.D. Visits: 7 - Answers: Total Score: 11 Risk of Readmission: High Risk Care Management Discharge Reason for Hospitalization: Cellulitis Left Hand Discharge Plan: Denises will discharge home with no new services. She will follow up with community based providers and transport via private vehicle with claire grace. Patient/Family Education Needs: Review discharge instructions,limitations, activity, medications and discuss Ask Me Three.
== END 2021-06-05 09:01 | disposition home or self-care (01) | DRG 603 ==
LOC: ER 16:40 → MS 23:13
PROVIDERS: Family Medicine; Admitting Provider Family Medicine; Emergency Provider Registered Nurse Emergency; PCP Nurse Practitioner Family; Visit Provider Family Medicine
DX: L03.114 Cellulitis of left upper limb (principal); F11.20 Opioid dependence, uncomplicated; I42.9 Cardiomyopathy, unspecified; F90.1 Attention-deficit hyperactivity disorder, predominantly hyperactive type; B18.2 Chronic viral hepatitis C; F17.210 Nicotine dependence, cigarettes, uncomplicated; F32.9 Major depressive disorder, single episode, unspecified; D63.8 Anemia in other chronic diseases classified elsewhere; F41.9 Anxiety disorder, unspecified; I34.0 Nonrheumatic mitral (valve) insufficiency; G47.00 Insomnia, unspecified; F10.10 Alcohol abuse, uncomplicated; F14.11 Cocaine abuse, in remission; F43.10 Post-traumatic stress disorder, unspecified; Z89.431 Acquired absence of right foot
CPT/HCPCS: 36556; 76881; 77001; 80053; 80307; 81025; 85027; 86803; 87040; 87081; 87340; 87635; 96365; 96368; 99285; J1650; 73090; 73130; 80202; 81003; 83605; 83735; 85025; 99223; 99232; 99233; 99239; 99284; J0131; J1885

== ENCOUNTER 2021-07-13 06:44 | Emergency (ER) | payer MEDICAID, SELFPAY ==
[2021-07-13] VITALS (51 sets, daily range): BP systolic 94–154; BP diastolic 53–93; PULSE 61–110; RESP 9–32; TEMP 35–36.7; O2SAT 90–100
[2021-07-13] MEDS: Ketamine 500 MG/10 ML VIAL 250 MG IM (06:50)
[2021-07-13] MEDS: Etomidate 20 MG/10 ML VIAL IVP (07:27)
[2021-07-13] MEDS: Rocuronium 50 MG/5 ML SYR 70 MG IVP (07:27)
[2021-07-13 07:31] LABS: Bilirubin Negative (Negative); Blood Moderate (Negative); Clarity Sl Cloudy (Clear); Glucose Negative (Negative); Ketones Negative (Negative); Leukocyte Esterase Negative (Negative); Nitrite Negative (Negative); Specific Gravity >= 1.030 (1.005-1.025); Urobilinogen 0.2 EU/dL (Up TO 0.2); pH 5.5 (5-8)
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
[2021-07-13 07:40] LABS: Bacteria Negative HPF (Negative); C & S Indicated? No; Casts 3-5 Hyaline LPF (Negative); Crystals Moderate Amorphous HPF (Negative); Epithelial Cells Few HPF (Negative); Mucus Trace (Negative); WBC Negative HPF (0-5)
[2021-07-13] MEDS: Normal Saline 1,000 ML 150 ML IV (07:40)
[2021-07-13 07:42] LABS: *AMPHETAMINES SCREEN URINE Positive (Negative); *BARBITURATES SCREEN URINE Negative (Negative); *BENZODIAZEPINES SCREEN URINE Positive (Negative); Cannabinoids THC Negative (Negative); Cocaine Screen,Urine Positive (Negative); METHADONE URINE SCREEN Positive (Negative); OPIATES URINE SCREEN Negative (Negative)
[2021-07-13 07:43] LABS: Tricyclic Antidepressants Negative (Negative)
[2021-07-13] MEDS: Lidocaine 2% Multi-Dose 50 ML VIAL (07:45)
--- NOTE | 2021-07-13 07:45 | RT.EKG_ITS ---
APPROVED REPORT Exam: Resting ECG Reason for Exam: altered mentation Patient Location: E HR:73 bpm ECG Measurements Heart Rate 73 AXIS NH 148 P 83 QRSd 95 QRS 83 QT 434 T 62 QTc 479 Conclusion Sinus rhythm...normal P axis Probable left atrial enlargement
--- NOTE | 2021-07-13 08:11 | DI.CT_ITS ---
Exam(s) CT CHEST/ABD/PEL W EXAM: CT CHEST/ABD/PEL W TECHNIQUE: CT examination of the chest, abdomen, and pelvis was performed with intravenous infusion of 100 cc of Omnipaque 350... COMPARISON: CT CT HEAD CERVICAL SPINE WO from 02/24/[address] ABDOMEN PELVIS W from 03/04/2020 FINDINGS: There is no evidence of a thoracic vascular injury. There are consolidative and streaky opacities i n the lung apices, probably grossly unchanged from prior cervical CT of February 2019. There are bib asilar pulmonary peripheral posterior radiodensities which are nonspecific, pulmonary contusion not e xcluded. No other focal pulmonary findings.. No pneumothorax or pleural effusion. No mediastinal he matoma. No adenopathy in the chest. Tracheobronchial tree appears intact. The liver, spleen, and pancreas appear normal. Gallbladder and bile ducts are normal. Adrenals and kidneys are unremarkable. No evidence of urinary tract injury or obstruction. No abdominal or pelvic vascular injury seen. No abdominal or pelvic adenopathy. No significant abdomi nal wall hernia or hematoma. No evidence of bowel injury. There are anterior compression fractures of T12 and L1, vertical fracture plane extends through the m id to anterior vertebral body L1 with mild displacement. The middle and posterior columns appear int act. There is slight loss of height anteriorly of both T12 and L1 vertebral bodies. No additional f racture seen.. IMPRESSION: Anterior compression fractures of T12 and L1 vertebral bodies as described above without involvement of posterior or middle columns of the spine. No solid organ injury, although posterior lower lobe pu lmonary contusion is not excluded... RADIATION DOSE DELIVERED: 2489.39 mGy.cm Total DLP 2489.39 mGy.cm Total DLP !Error CTDIvol DATA REPOSITORY: All CT scans at this facility are submitted to the National Radiology Data Registry (NRDR) Dose Index Registry (DIR) with the [employer] (A[employer]). RADIATION OPTIMIZATION: All CT scans at this facility use at least one of these dose optimization te chniques: automated exposure control; mA and/or kV adjustment per patient size (includes targeted exa ms where dose is matched to clinical indication); or iterative reconstruction.
--- NOTE | 2021-07-13 08:11 | DI.CT_ITS ---
Exam(s) CT HEAD CERVICAL SPINE WO EXAM: CT HEAD CERVICAL SPINE WO COMPARISON: CT CT CHEST/ABD/PEL W from 07/13/2021 FINDINGS: CT examination of the cervical spine was performed without contrast administration. Note is made of an endotracheal tube in place. There is no evidence of acute cervical spine fracture or dislocation. Intervertebral disc spaces are well maintained. Tracheolaryngeal structures appear intact. No cervical mass or adenopathy. Noncontrast cranial CT was performed. Ventricular system is normal in appearance. No evidence of acute intracranial hemorrhage, mass effect, or midline shift. No calvarial fracture. The orbital and temporal bone structures appear intact. Visualized mastoid air cells and paranasal sinuses appear clear. IMPRESSION: No evidence of acute cervical spine injury. No evidence of acute intracranial injury. RADIATION DOSE DELIVERED: Total DLP Total DLP !Error CTDIvol DATA REPOSITORY: All CT scans at this facility are submitted to the National Radiology Data Registry (NRDR) Dose Index Registry (DIR) with the [employer] (ACR). RADIATION OPTIMIZATION: All CT scans at this facility use at least one of these dose optimization te chniques: automated exposure control; mA and/or kV adjustment per patient size (includes targeted exa ms where dose is matched to clinical indication); or iterative reconstruction.
[2021-07-13] MEDS: Omnipaque 350 MG/ML 100 ML BTL IJ (08:39)
[2021-07-13] MEDS: fentaNYL 1,000 MCG in Normal Saline 80 ML 7 MCG IV (08:45)
[2021-07-13] MEDS: MIDAZOLAM 50 MG in Normal Saline 90 ML IV (08:46)
[2021-07-13] MEDS: Midazolam 2 MG/2 ML VIAL IVP ×6 (08:56→11:44)
--- NOTE | 2021-07-13 08:59 | W.ED.PROC ---
Date of service: 07/13/21 Time of Service: 08:59 Procedures Central Line Placement Right Femoral: Time Out Performed: Yes Patient Placed on Monitor/Pulse Ox: Yes MD Prep: mask, gown and gloves Central Line Prep: Chlorhexidine scrub Local Anesthetic: Lidocaine 1% Amount of anesthesia used (mL): 1 Ultrasound Used for Placement: Yes Central Line Lumen Inserted: triple Post Procedure: good blood return, all ports aspirated, flushed, capped and sutured in place with nylon Complications: none Medical Decision Making Ultrasound this is right femoral triple-lumen catheter placed approximately 13 cm of depth, sutured in place. Performed under sterile conditions.
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
[2021-07-13 09:10] LABS: BE -2 mmol/L (-2-3); HCO3 25 mmol/L (22-26); pCO2 57 mmHg (35-45); pH 7.25 (7.35-7.45); pO2 117 mmHg (80-105); sO2 99 % (95-98); tCO2 24 mmol/L (23-27)
[2021-07-13] MEDS: fentaNYL 100 MCG/2 ML VIAL 50 MCG IVP ×2 (09:11→11:44)
[2021-07-13 09:12] LABS: FIO2 30 %; Site Right Radial
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
--- NOTE | 2021-07-13 09:14 | W.EDPROG ---
Date of service: 07/13/21 Time of Service: 09:15 Medical Decision Making Received signout from Dr. Florian. Please see his note regarding the patient's initial presentation and exam. Patient remained intubated and sedated. I placed a right femoral triple-lumen catheter due to lack of adequate peripheral access and reliance on an IO in L tibia. CT scan of the head and cervical spine were unremarkable for acute process other than resolving hematoma. CT scan of the chest/abdomen/pelvis showed questionable pulmonary contusions and note of small pleural-based nodular density to the of the right upper lobe. There is evidence of T12 and L1 endplate fractures. See formal read The patient's laboratories showed an ABG with pH 7.25 PCO2 of 57, PO2 of 117. Patient's minute ventilation was increased to blow off her CO2. Chemistry panel shows reassuring electrolytes, BUN 14 creatinine 1.6. AST 76, ALT 47, ammonia is 12. TSH was 1.7. Urine is concentrated with a specific gravity greater than 1.03. Given the traumatic injury, mild respiratory acidosis, the case was discussed with Dr. Andrea of [facility] trauma service. Patient accepted in transfer. Lab Data Lab results reviewed: Yes I reviewed the patient's lab results. Labs: Laboratory Results - last 24 hr 07/13/21 07/13/21 07/13/21 07:09 07:09 09:05 WBC RBC Hgb Hct MCV MCH MCHC RDW Plt Count MPV Immature Gran % Neutrophils % Lymphocytes % Monocytes % Eosinophils % Basophils % Nucleated RBC % Absolute Neutrophils Absolute Lymphocytes Absolute Monocytes Absolute Eosinophils Absolute Basophils ABG Sample Site Right Radial ABG pH 7.25 L ABG pCO2 57 H ABG pO2 117 H ABG HCO3 25 ABG Total CO2 24 ABG O2 Saturation 99 H ABG Base Excess -2 FiO2 30 Sodium Potassium Chloride Carbon Dioxide Anion Gap BUN Creatinine Estimated GFR/1.73 m2 Glucose Calcium Total Bilirubin AST ALT Alkaline Phosphatase Ammonia Total Protein Albumin TSH Urine Color Yellow Urine Clarity Sl Cloudy Urine pH 5.5 Ur Specific [place] >= 1.030 H Urine Protein 100 H Urine Ketones Negative Urine Blood Moderate H Urine Nitrite Negative Urine Bilirubin Negative Urine Urobilinogen 0.2 Ur Leukocyte Esterase Negative Urine RBC 5-10 H Urine WBC Negative Ur Epithelial Cells Few Urine Crystals Moderate Amorphous Urine Bacteria Negative Urine Casts 3-5 Hyaline Urine Mucus Trace Ur Culture Indicated? No Urine Glucose Negative Urine Opiates Screen Negative Urine Methadone Screen Positive A Ur Barbiturates Screen Negative Ur Tricyclics Screen Negative Ur Amphetamines Screen Positive A U Benzodiazepines Scrn Positive A Urine Cocaine Screen Positive A Ur THC Screen Negative Ethyl Alcohol COVID-19 Source SARS-CoV-2 (PCR) 07/13/21 07/13/21 07/13/21 09:24 09:24 09:24 WBC 13.49 H RBC 3.95 Hgb 11.0 L Hct 35.0 L MCV 89 MCH 27.8 MCHC 31.4 L RDW 14.0 Plt Count 217 MPV 9.2 Immature Gran % 0.6 Neutrophils % 89.7 Lymphocytes % 4.5 Monocytes % 4.9 Eosinophils % 0.1 Basophils % 0.2 Nucleated RBC % 0.0 Absolute Neutrophils 12.10 H Absolute Lymphocytes 0.61 L Absolute Monocytes 0.66 Absolute Eosinophils 0.01 Absolute Basophils 0.03 ABG Sample Site ABG pH ABG pCO2 ABG pO2 ABG HCO3 ABG Total CO2 ABG O2 Saturation ABG Base Excess FiO2 Sodium 139 Potassium 4.2 Chloride 105 Carbon Dioxide 27.3 Anion Gap 6.7 BUN 14 Creatinine 1.6 H Estimated GFR/1.73 m2 36.47 Glucose 106 Calcium 7.9 L Total Bilirubin 0.5 AST 76 H ALT 47 Alkaline Phosphatase 86 Ammonia 12 Total Protein 7.3 Albumin 3.6 TSH 1.77 Urine Color Urine Clarity Urine pH Ur Specific [place] Urine Protein Urine Ketones Urine Blood Urine Nitrite Urine Bilirubin Urine Urobilinogen Ur Leukocyte Esterase Urine RBC Urine WBC Ur Epithelial Cells Urine Crystals Urine Bacteria Urine Casts Urine Mucus Ur Culture Indicated? Urine Glucose Urine Opiates Screen Urine Methadone Screen Ur Barbiturates Screen Ur Tricyclics Screen Ur Amphetamines Screen U Benzodiazepines Scrn Urine Cocaine Screen Ur THC Screen Ethyl Alcohol < 3.0 COVID-19 Source SARS-CoV-2 (PCR) 07/13/21 09:28 WBC RBC Hgb Hct MCV MCH MCHC RDW Plt Count MPV Immature Gran % Neutrophils % Lymphocytes % Monocytes % Eosinophils % Basophils % Nucleated RBC % Absolute Neutrophils Absolute Lymphocytes Absolute Monocytes Absolute Eosinophils Absolute Basophils ABG Sample Site ABG pH ABG pCO2 ABG pO2 ABG HCO3 ABG Total CO2 ABG O2 Saturation ABG Base Excess FiO2 Sodium Potassium Chloride Carbon Dioxide Anion Gap BUN Creatinine Estimated GFR/1.73 m2 Glucose Calcium Total Bilirubin AST ALT Alkaline Phosphatase Ammonia Total Protein Albumin TSH Urine Color Urine Clarity Urine pH Ur Specific [place] Urine Protein Urine Ketones Urine Blood Urine Nitrite Urine Bilirubin Urine Urobilinogen Ur Leukocyte Esterase Urine RBC Urine WBC Ur Epithelial Cells Urine Crystals Urine Bacteria Urine Casts Urine Mucus Ur Culture Indicated? Urine Glucose Urine Opiates Screen Urine Methadone Screen Ur Barbiturates Screen Ur Tricyclics Screen Ur Amphetamines Screen U Benzodiazepines Scrn Urine Cocaine Screen Ur THC Screen Ethyl Alcohol COVID-19 Source Nasal/Nares SARS-CoV-2 (PCR) Negative Sign Out Sign Out Data: Sign Out Comment: f/u labs, ct, ekg. reassess pt for disposition. Last updated by Ole Florian MD at 07/13/21 08:33 Discharge Plan Disposition Patient Disposition: [facility] Condition: Critical Discharge Details Clinical Impression: Altered mental status, Polysubstance abuse Primary Care Provider: Ivonne Hampton ED Provider: Joesph Pool Home Meds and New Rx's Prescriptions: No Action naloxone [Narcan] 4 mg/actuation spray,non-aerosol 4 mg intranasal Q2M PRN0RF Rx Instructions: spray 1 dose into ONE nostril; alternate nostrils w each dose until help arrives methylphenidate HCl 30 mg capsule,ER biphasic 50-50 30 mg PO DAILY 0RF Label Comments: TAKE 1 CAPSULE BY MOUTH EVERY DAY Rx Instructions: Dexmethylphenidate ER 30mg QAM, Methylphenidate IR 20mg TID gabapentin 800 mg tablet 800 mg PO QID 0RF Label Comments: TAKE ONE TABLET BY MOUTH FOUR TIMES A DAY methadone 10 mg/mL Concentrate 125 mg PO DAILY 0RF Rx Instructions: CONFIRMED DOSE WITH [facility] FOR INPATIENT STAY 04/10/21-04/13/21. 125MG QAM AT 0400. WILL CONTACT LORIN IN AM TO CONFIRM CURRENT DOSING. Acetaminophen [Tylenol] 650 mg PO Q4H PRN PRNQty: 0 0RF sulfamethoxazole-trimethoprim 800-160 mg tablet 1 tab PO BID Qty: 14 0RF methylphenidate HCl 20 mg tablet 20 mg PO TID 0RF Label Comments: TAKE 1 TABLET BY MOUTH THREE TIMES DAILY. MAY FILL WHEN FOCALIN DUE Rx Instructions: Dexmethylphenidate ER 30mg QAM, Methylphenidate IR 20mg TID mirtazapine 30 mg tablet 30 mg PO HS 0RF Label Comments: TAKE 1 TABLET BY MOUTH AT BEDTIME
[2021-07-13 09:36] LABS: Source Nasal/Nares
[2021-07-13 09:37] LABS: Abs Immature Grans 0.08 10^3/uL (0.0-0.06); Absolute Basophil Count 0.03 10^3/uL (0.0-0.2); Absolute Eosinophil Count 0.01 10^3/uL (0.0-0.7); Absolute Lymphocyte Count 0.61 10^3/uL (1.2-3.4); Absolute Monocyte Count 0.66 10^3/uL (0.1-0.8); Basophils % 0.2; Eosinophils % 0.1; Immature Grans % 0.6; Lymphocytes % 4.5; MCH 27.8 pg (27.0-33.0); MCHC 31.4 % (32.0-36.0); MCV 89 fL (80-95); MPV 9.2 fL (8.0-11.0); Monocytes % 4.9; Neutrophils % 89.7; Platelet Count 217 10^3/uL (130-400); RBC 3.95 10^6/uL (3.93-5.22); RDW-SD 45.5 fL; WBC 13.49 10^3/uL (4.4-10.8)
[2021-07-13 09:45] LABS: Ammonia 12 umol/L (11-32)
[2021-07-13 09:56] LABS: ALT 47 U/L (14-59); AST 76 U/L (15-37); Albumin 3.6 g/dL (3.4-5.0); Alkaline Phosphatase 86 U/L (46-116); Anion Gap 6.7 mmol/L (3-11); BUN 14 mg/dL (7-18); Bilirubin, Total 0.5 mg/dL (0.2-1.0); CO2 27.3 mmol/L (21.0-32.0); CREATININE 1.6 mg/dL (0.55-1.02); Calcium 7.9 mg/dL (8.5-10.1); Chloride 105 mmol/L (98-107); Estimated GFR 36.47 (mL/min/1.73m2); Glucose 106 mg/dL (74-106); Potassium 4.2 mmol/L (3.5-5.1); Sodium 139 mmol/L (136-145); TSH (W/Ref FT4) 1.77 uIU/mL (0.36-3.74); Total Protein 7.3 g/dL (6.4-8.2)
[2021-07-13 10:04] LABS: ETHANOL BLOOD < 3.0 mg/dL (<10)
[2021-07-13 10:13] LABS: COVID-19 PCR Negative (Negative)
[2021-07-13] MEDS: fentaNYL 100 MCG/2 ML VIAL IVP (11:24)
--- NOTE | 2021-07-14 11:38 | DI.CT_ITS ---
Exam(s) CT THORACIC LUMBAR SPINE REC EXAM: CT THORACIC LUMBAR SPINE REC CLINICAL HISTORY: PER [facility]. TECHNIQUE: Imaging Protocol: Axial, coronal and sagittal images of the thoracic and lumbar spine wer e reconstructed from the chest abdomen pelvic CT. CONTRAST MATERIAL: Intravenous: Omnipaque 350 Contrast volume:No additional contrast given. Oral: no COMPARISON: CT CT HEAD CERVICAL SPINE WO from 07/13/[address] CHEST/ABD/PEL W from 07/13/2021 FINDINGS: Mild compression fracture anterior superior endplate of T12. Fracture of the anterosuperior endplate of L1 with mild loss of height. Additional fractures extending through the vertebral body without d isplacement. No posterior element involvement. Remaining vertebral bodies as well as pelvis are int act. IMPRESSION: Mild compression fracture T12. Compression fracture of L1 with additional fracture extending through the anterior to mid portion of the vertebral body. RADIATION DOSE DELIVERED: Total DLP Total DLP DATA REPOSITORY: All CT scans at this facility are submitted to the National Radiology Data Registry (NRDR) Dose Index Registry (DIR) with the [employer] (ACR). RADIATION OPTIMIZATION: All CT scans at this facility use at least one of these dose optimization te chniques: automated exposure control; mA and/or kV adjustment per patient size (includes targeted exa ms where dose is matched to clinical indication); or iterative reconstruction.
--- NOTE | 2021-07-14 14:54 | DI.VRAD_ITS ---
PROCEDURE INFORMATION: Exam: CT Thoracic Spine Without Contrast Exam date and time: 07/13/2021 7:59 AM Age: 35 years old Clinical indication: Trauma TECHNIQUE: Imaging protocol: Computed tomography images of the thoracic spine without contrast. COMPARISON: CT ABDOMEN PELVIS W 03/04/2020 1:39 PM FINDINGS: Vertebrae: The non spinal elements are evaluated separately. Mild acute compression deformity along the anterior superior margin of T12 not extending into the posterior elements. T1-T2: No significant disc protrusion. No severe spinal canal stenosis. No significant neural foraminal narrowing. T2-T3: No significant disc protrusion. No severe spinal canal stenosis. No significant neural foraminal narrowing. T3-T4: No significant disc protrusion. No severe spinal canal stenosis. No significant neural foraminal narrowing. T4-T5: No significant disc protrusion. No severe spinal canal stenosis. No significant neural foraminal narrowing. T5-T6: No significant disc protrusion. No severe spinal canal stenosis. No significant neural foraminal narrowing. T6-T7: No significant disc protrusion. No severe spinal canal stenosis. No significant neural foraminal narrowing. T7-T8: No significant disc protrusion. No severe spinal canal stenosis. No significant neural foraminal narrowing. T8-T9: No significant disc protrusion. No severe spinal canal stenosis. No significant neural foraminal narrowing. T9-T10: No significant disc protrusion. No severe spinal canal stenosis. No significant neural foraminal narrowing. T10-T11: No significant disc protrusion. No severe spinal canal stenosis. No significant neural foraminal narrowing. T11-T12: No significant disc protrusion. No severe spinal canal stenosis. No significant neural foraminal narrowing. T12-L1: No significant disc protrusion. No severe spinal canal stenosis. No significant neural foraminal narrowing. Spinal epidural space: No epidural fluid. Lungs: Patchy to nodular opacities in the lungs. Follow-up recommended. Soft tissues: Mild paraspinal thickening laterally at the level of the T12 fracture could be a small amount of paraspinal hematoma. Other findings: No high-grade central stenosis. IMPRESSION: T12 fracture without epidural fluid. No retropulsed fragments. PROCEDURE INFORMATION: Exam: CT Lumbar Spine Without Contrast Exam date and time: 07/13/2021 7:59 AM Age: 35 years old Clinical indication: Trauma TECHNIQUE: Imaging protocol: Computed tomography images of the lumbar spine without contrast. COMPARISON: CT ABDOMEN PELVIS W 03/04/2020 1:39 PM FINDINGS: Tubes, catheters and devices: Mancuso catheter in the urinary bladder. Vertebrae: Mild acute L1 compression deformity anteriorly with a transverse component through the vertebral body. No extension into the posterior elements. No other fractures are seen. The non spinal elements are evaluated separately. Disc spaces: Bulging discs at L4-L5, and L5-S1 with least mild central encroachment. Minimal bulging of the disc at T12-L1 without significant mass effect. More pronounced bulging of the disc at L2-L3 with mild to moderate central stenosis. Epidural space: No epidural fluid. Soft tissues: Mild paraspinal soft tissue thickening laterally at the level the fracture may be related to small amount of hematoma. Other findings: No high-grade central stenosis. IMPRESSION: L1 fracture without epidural fluid. No retropulsed fragments. Disc bulges at multiple levels. For Dictated and Authenticated by: Ray Goodrich MD. Ordering:[facility]
== END 2021-07-13 12:10 | disposition short-term general hospital (02) ==
PROVIDERS: Student in an Organized Health Care Education/Training Program; Emergency Provider Emergency Medicine; PCP Nurse Practitioner Family
DX: R41.82 Altered mental status, unspecified (principal); F15.10 Other stimulant abuse, uncomplicated; F14.10 Cocaine abuse, uncomplicated; F13.10 Sedative, hypnotic or anxiolytic abuse, uncomplicated; E87.2 Acidosis; S00.81XA Abrasion of other part of head, initial encounter; S22.088A Other fracture of T11-T12 vertebra, initial encounter for closed fracture; S32.018A Other fracture of first lumbar vertebra, initial encounter for closed fracture; X58.XXXA Exposure to other specified factors, initial encounter
CPT/HCPCS: 31500; 36415; 36556; 74177; 80053; 80307; 82805; 87635; 93005; 96365; 96366; 96367; 96372; 96376; 99291; 70450; 71260; 72125; 80320; 81003; 81015; 82140; 84443; 85025; 93010; J2250; J3010; J3490

== ENCOUNTER 2021-08-19 21:05 | Observation (INO) | payer MEDICAID, SELFPAY ==
[2021-08-19] VITALS (29 sets, daily range): BP systolic 110–164; BP diastolic 67–87; PULSE 65–113; RESP 12–26; O2SAT 90–100
[2021-08-19] MEDS: Ketamine 500 MG/10 ML VIAL (21:25)
--- NOTE | 2021-08-19 21:42 | W.ED.GENAD ---
Discharge Plan Disposition Patient Disposition: [facility] INPATIENT Condition: Improving Discharge Details Chief Complaint: AMS/LOC Clinical Impression: AMS (altered mental status), Agitated Primary Care Provider: Ivonne Hampton ED Provider: Theodore Leyva Home Meds and New Rx's Prescriptions: No Action naloxone [Narcan] 4 mg/actuation spray,non-aerosol 4 mg intranasal Q2M PRN Rx Instructions: spray 1 dose into ONE nostril; alternate nostrils w each dose until help arrives methylphenidate HCl 30 mg capsule,ER biphasic 50-50 30 mg PO DAILY Label Comments: TAKE 1 CAPSULE BY MOUTH EVERY DAY Rx Instructions: Dexmethylphenidate ER 30mg QAM, Methylphenidate IR 20mg TID gabapentin 800 mg tablet 800 mg PO QID Label Comments: TAKE ONE TABLET BY MOUTH FOUR TIMES A DAY methadone 10 mg/mL Concentrate 125 mg PO DAILY Rx Instructions: CONFIRMED DOSE WITH [facility] FOR INPATIENT STAY 04/10/21-04/13/21. 125MG QAM AT 0400. WILL CONTACT LORIN IN AM TO CONFIRM CURRENT DOSING. Acetaminophen [Tylenol] 650 mg PO Q4H PRN PRNQty: 0 0RF sulfamethoxazole-trimethoprim 800-160 mg tablet 1 tab PO BID Qty: 14 0RF methylphenidate HCl 20 mg tablet 20 mg PO TID Label Comments: TAKE 1 TABLET BY MOUTH THREE TIMES DAILY. 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 She presents today for agitated state and altered mental status. Her significant other patient was found in her bedroom, surrounded by vomit, leaning up against her bed, and it agitated and delirious state. She was brought to the ER for further assessment. Significant other is uncertain how long she was like that but estimates between 1 and 3 hours. Significant other does not know if she has had any recent drugs in her system, or has done any new home therapies. He states that this is similar to how she has been before when she has utilized other drugs in the past, but denies any knowledge of any on this episode. No other known recent trauma otherwise. Patient due to her altered mental status has no other complaints and is unable to add anything else to the history at this time. Physical exam demonstrates the patient in a notable agitated and delirious state, no clear focal neurologic deficit is appreciated that she demonstrates normal strength in all extremities, no facial asymmetry. No nuchal rigidity. Lungs are clear. High suspicion is for altered mental status secondary to drug intoxication or use, she is afebrile, and symptoms appearing consistent with serotonin syndrome, or malignant hyperthermia, or meningitis/encephalitis. No evidence of rash on exam or viral exanthem. We will evaluate for potential toxic etiology causing the patient's symptoms, gently rehydrate, monitor closely and reassess 9:45 PM Patient was not able to be brought to a state where inadequate assessment, line, labs could be drawn. Patient was sedated with ketamine to achieve this. She was put in three-point restraints for her own safety as she continued to flail about hitting the side rails of the bed. 10:24 PM On reassessment after the patient was woken up from ketamine she is significantly improved. She follows commands, she is slightly agitated but she is able to talk and converse and discussed the situation. She does not recall the event that brought her to this place. She does not want to discuss the previous episodes that occurred tonight either. She has nothing to add to the history at this time. 12:15 AM Patient was removed from restraints. Work-up is relatively unremarkable. Mild anion gap, mildly elevated BUN/creatinine. test negative. Urinalysis negative for infection. COVID flu and RSV negative. I suspect that patient is still suffering from taking an illicit substance that brought about this episode. Patient is still somewhat agitated and slightly confused. I do feel that she would benefit from continued admission and observation. Discussed the case with the hospitalist Dr. Anand. He agrees with the assessment and plan. I have extensively reviewed the treatment plan with the patient. I have addressed all patient concerns at this time. I have also discussed the plan with the admitting physician and they agree with the current assessment and plan and have agreed to assume responsibility for the patient. All parties demonstrate verbal understanding and agreement with our assessment and plan at this time. The documentation in this chart was dictated using [employer] dictation software. Please excuse any dictation errors. HPI General Date/Time Provider Initiated Documentation: 08/19/21 21:08. 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 She presents today for agitated state and altered mental status. Her significant other patient was found in her bedroom, surrounded by vomit, leaning up against her bed, and it agitated and delirious state. She was brought to the ER for further assessment. Significant other is uncertain how long she was like that but estimates between 1 and 3 hours. Significant other does not know if she has had any recent drugs in her system, or has done any new home therapies. He states that this is similar to how she has been before when she has utilized other drugs in the past, but denies any knowledge of any on this episode. No other known recent trauma otherwise. Patient due to her altered mental status has no other complaints and is unable to add anything else to the history at this time. Related Data Home Medications Medication Instructions Recorded Confirmed naloxone 4 mg/actuation nasal 4 mg intranasal Q2M PRN 05/29/20 07/13/21 spray (Narcan) methylphenidate HCl 20 mg tablet 20 mg PO TID 05/31/21 07/13/21 mirtazapine 30 mg tablet 30 mg PO HS 05/31/21 07/13/21 gabapentin 800 mg tablet 800 mg PO QID 06/02/21 07/13/21 methadone 10 mg/mL oral concentrate 125 mg PO DAILY 06/02/21 06/02/21 methylphenidate HCl 30 mg biphasic 30 mg PO DAILY 06/02/21 07/13/21 50-50 capsule,extended release Acetaminophen [Tylenol] 650 mg PO Q4H PRN PRN ##0 06/05/21 07/13/21 sulfamethoxazole 800 1 tab PO BID #14 tabs 06/05/21 mg-trimethoprim 160 mg tablet Previous Rx's Medication Instructions Recorded Acetaminophen [Tylenol] 650 mg PO Q4H PRN PRN ##0 06/05/21 sulfamethoxazole 800 1 tab PO BID #14 tabs 06/05/21 mg-trimethoprim 160 mg tablet Allergies Allergy/AdvReac Type Severity Reaction Status Date / Time bupropion HCl AdvReac Intermediate Contraindic Unverified 07/13/21 06:59 [From Wellbutrin SR] ated General CELESTE: 2 Review of Systems All systems reviewed & are unremarkable except as noted in HPI and below PFSH All Active Problems (Updated 08/20/21 @ 00:20 by Theodore Leyva DO) AMS (altered mental status) (Acute) Agitated (Acute) Cellulitis of left hand (Acute) Foreign body in foot, left (Acute) Localized swelling of left lower extremity (Acute) Cellulitis of hand, right (Acute) Cellulitis (Acute) Throat pain in adult (Acute) (Acute) Smoker (Acute) Viral illness (Acute) Dehydration (Acute) ADHD, hyperactive-impulsive type (Chronic 05/14/16) Subacute endocarditis (Acute 01/22/16) MSSA endocarditis January, Cardiomyopathy (Chronic 01/22/16) Pleural effusion, bilateral (Acute 01/22/16) History of prior with IUGR (Acute 01/11/15) History of kidney injury (Acute 01/17/16) Acute January, History of drug abuse (Acute 01/17/16) In IP treatment at [place], no longer on methadone as of 01/17/16. Family court is close to resolved - will end . She is expecting 1st daughter to come home. Depression (Acute 01/11/15) Chronic hepatitis C without hepatic coma (Chronic 01/11/15) Bacterial vaginosis (Acute 05/24/13) Rx with Metronidazole cream given 04/19/15. Anemia of chronic disease (Acute 01/17/16) Insomnia (Acute) Discharge planning issues (Acute) DVT prophylaxis (Acute) Fever (Acute) Prepatellar bursitis of right knee (Acute) Edema (Acute) Mitral regurgitation (Chronic) Opioid dependence (Chronic) Anemia (Chronic) Anxiety (Chronic) Medical History ADHD Alcohol abuse Amputation of right foot COVID-19 virus infection Depression difficulty bonding with 2nd child. child removed from her custody. was on Wellbutrin but had sz and not on meds at this time. has appt with counselor 03/2015 Effusion, right knee Herpes, vulvar History of depression HSV infection Hx of who one week after . ? HSV or H1N1 infection. Pt has been on prophylaxis with pregnancies. Hx of cocaine abuse Paresthesia of both hands Personality disorder examination or test, positive result PTSD (post-traumatic stress disorder) Surgical History Amputation 12/23/16;[facility]; RIGHT BELOW THE KNEE section (11/24/12) PCD @ 35w. IUGR. NRFH. [id number]. [facility] [place]. 03/26/15 RCD. Pt arrived in labor and declined SUN. F. Jessica. Family History Mother No problems noted. Father No problems noted. Brother No problems noted. Grandfather No problems noted. Grandfather No problems noted. Grandmother No problems noted. Grandmother No problems noted. Son No problems noted. Son No problems noted. Daughter No problems noted. Daughter No problems noted. Social History Smoking/Tobacco Use Status: Current every day Tobacco Type: cigarettes Smoking risk assessment performed?: Yes Alcohol Intake: former Drug use: Occasionally Substance use type: former substance user, marijuana, crack/cocaine and heroin Do you feel safe at home: Yes Do you feel safe in your relationship?: Yes History History 4 Para 4 Hx # Term Pregnancies Multiple births Hx # Pregnancies Ectopic pregnancies AB induced Hx Number of Living Children 3 AB spontaneous Past Pregnancies Del. Date GA/Weeks # Outcome Route Wgt Sex Labor Lgth Anesthesia Location Prov Complic 12/28/20 25 Delivery Date: 12/28/20 Last Updated by: Roxanna Rocha LPN Patient transferred OB care to [facility] Exam Narrative Exam Narrative: 1.Const: Well-nourished, Well-developed, appearing stated age 2.Eyes: PERRL, no conjunctival injection, and symmetrical lids. 3.ENT: Atraumatic external nose and ears. Moist MM. Neck: Symmetric, trachea midline, No thyromegaly. No nuchal rigidity. 4.CVS: +S1/S2, No murmurs or gallops. Peripheral pulses 2+ and equal in all extremities. Brisk capillary refill in all extremities. 5.RESP: Unlabored respiratory effort. Clear to auscultation bilaterally. No wheezes rales or rhonchi 6.GI: Soft, Nontender/Nondistended, No hepatosplenomegaly. No guarding or rebound. 7.MSK: Normocephalic/Atraumatic, patient is flailing all extremities. BKA on the right is unremarkable. No evidence of significant trauma. 8.Skin: Warm, Dry. No rashes or lesions. No clear evidence of rash, abscess, or cellulitis. 9.Neuro: Patient moving all extremities, patient is able to answer some questions in an altered form. She is able to focus for about half a seconds on certain focuses of attention and then rapidly goes back to flailing all extremities, and stating random words. All extremities demonstrate normal, strength. No facial droop. 10.Psych: In a notable state of an agitated and delirious sensorium
[2021-08-19 22:02] LABS: Abs Immature Grans 0.03 10^3/uL (0.0-0.06); Absolute Basophil Count 0.02 10^3/uL (0.0-0.2); Absolute Eosinophil Count 0.02 10^3/uL (0.0-0.7); Absolute Lymphocyte Count 0.92 10^3/uL (1.2-3.4); Absolute Neutrophil Count 6.14 10^3/uL (1.2-6.7); Basophils % 0.3; Eosinophils % 0.3; HCT 37.2 % (36.0-46.0); HGB 11.9 g/dL (11.2-15.7); Immature Grans % 0.4; Lymphocytes % 12.4; MCH 26.4 pg (27.0-33.0); MCV 83 fL (80-95); MPV 9.5 fL (8.0-11.0); Neutrophils % 82.6; Platelet Count 321 10^3/uL (130-400); RBC 4.51 10^6/uL (3.93-5.22); RDW 13.8 % (11.7-14.6); RDW-SD 41.5 fL; WBC 7.43 10^3/uL (4.4-10.8)
[2021-08-19 22:04] LABS: BE (Venous) 2 mmol/L (-2-3); HCO3 (Venous) 27 mmol/L (23-28); O2 Sat (Venous) 53 %; TCO2 (Venous) 25 mmol/L (24-29); pCO2 (Venous) 44 mmHg (41-51); pH (Venous) 7.39 (7.31-7.41); pO2 (Venous) 30 mmHg
[2021-08-19 22:08] LABS: ESR 54 mm/hr (0-20)
[2021-08-19 22:14] LABS: Bilirubin Negative (Negative); Blood Negative (Negative); Clarity Clear (Clear); Glucose Negative (Negative); Ketones Negative (Negative); Leukocyte Esterase Negative (Negative); Nitrite Negative (Negative); Specific Gravity >= 1.030 (1.005-1.025); Urobilinogen 0.2 EU/dL (Up TO 0.2)
[2021-08-19 22:20] LABS: WBC 0-2 HPF (0-5)
[2021-08-19 22:21] LABS: Bacteria Rare HPF (Negative); C & S Indicated? No; Casts 0-2 Hyaline LPF (Negative); Crystals Negative HPF (Negative); Epithelial Cells Few HPF (Negative); Mucus Trace (Negative); RBC Negative HPF (0-2)
[2021-08-19 22:26] LABS: *AMPHETAMINES SCREEN URINE Negative (Negative); *BARBITURATES SCREEN URINE Negative (Negative); *BENZODIAZEPINES SCREEN URINE Negative (Negative); Cannabinoids THC Negative (Negative); Cocaine Screen,Urine Negative (Negative); METHADONE URINE SCREEN Positive (Negative); OPIATES URINE SCREEN Negative (Negative)
[2021-08-19 22:27] LABS: Ammonia 16 umol/L (11-32)
[2021-08-19 22:28] LABS: Tricyclic Antidepressants Negative (Negative)
--- NOTE | 2021-08-19 22:37 | NUR.NOTE ---
Nursing Note: Pt father in waiting room, he questions if she had ritalin and this may of brought on tonights episode of delirium. States he dropped her off at home around 1800 and she was fine, provider notified.
[2021-08-19 22:49] LABS: Acetaminophen < 2 ug/mL (10-30); Salicylate 3.2 mg/dL (<2.8)
[2021-08-19 22:58] LABS: ALT 29 U/L (14-59); AST 30 U/L (15-37); Albumin 4.3 g/dL (3.4-5.0); Alkaline Phosphatase 136 U/L (46-116); Anion Gap 11.8 mmol/L (3-11); BUN 19 mg/dL (7-18); Bilirubin, Total 0.3 mg/dL (0.2-1.0); C-Reactive Protein 2.58 mg/dL (0.0-0.3); CO2 25.2 mmol/L (21.0-32.0); CREATININE 1.2 mg/dL (0.55-1.02); Calcium 9.6 mg/dL (8.5-10.1); Chloride 98 mmol/L (98-107); Estimated GFR 50.55 (mL/min/1.73m2); Glucose 98 mg/dL (74-106); Potassium 4.2 mmol/L (3.5-5.1); Sodium 135 mmol/L (136-145); TSH (W/Ref FT4) 2.11 uIU/mL (0.36-3.74); Total Protein 9.1 g/dL (6.4-8.2)
[2021-08-19 22:59] LABS: HCG Quant, Pregnancy < 1 mIU/mL (1-3)
[2021-08-19 23:01] LABS: ETHANOL BLOOD < 3.0 mg/dL (<10)
[2021-08-19 23:11] LABS: COVID-19 PCR Negative (Negative); Influenza A PCR Negative (Negative); Influenza B PCR Negative (Negative); RSV PCR Negative (Negative)
[2021-08-19 23:12] LABS: Source Nasopharynx
[2021-08-20] VITALS (96 sets, daily range): BP systolic 102–123; BP diastolic 51–74; PULSE 52–91; RESP 7–22; TEMP 36.5–37.2; O2SAT 96–100
--- NOTE | 2021-08-20 00:15 | DI.CT_ITS ---
Exam(s) CT HEAD WO EXAM: CT HEAD WO CLINICAL HISTORY: ams. TECHNIQUE: Imaging Protocol: Axial computed tomography images with coronal and sagittal reformatted images were created and reviewed COMPARISON: CT CT HEAD CERVICAL SPINE WO from 07/13/2021 FINDINGS: No skull fractures. Mucosal thickening in the maxillary sinuses is noted, left more so than right, not associated with fluid level therein. Sphenoid sinuses and frontal sinuses are clear, as are the ethmoidal air cells and mastoid air cells. There is no evidence of intracranial hemorrhage, mass effect, or shift of midline structures. There are no extra-axial fluid collections. The ventricles are not enlarged or shifted and there is no blo od within the ventricular system nor within the basal cisterns. IMPRESSION: No acute intracranial findings on this noninfused CT scan of the brain. RADIATION DOSE DELIVERED: 718.77mGy.cm Total DLP DATA REPOSITORY: All CT scans at this facility are submitted to the National Radiology Data Registry (NRDR) Dose Index Registry (DIR) with the [employer] (A[employer]). RADIATION OPTIMIZATION: All CT scans at this facility use at least one of these dose optimization te chniques: automated exposure control; mA and/or kV adjustment per patient size (includes targeted exa ms where dose is matched to clinical indication); or iterative reconstruction.
--- NOTE | 2021-08-20 00:22 | HPE_ITS ---
Date of service: 08/20/21 Time of Service: 00:22 Assessment and Plan Assessment and plan (1) AMS (altered mental status): Status: Acute Assessment and plan: Altered mental status. Almost certainly some drug ingestion, though for completeness sake will obtain head CT. Will provide general supportive measures overnight with hydration and close observation, and on telemetry. Hold all usual meds in interim. History of Present Illness History of Present Illness Chief Complaint: altered mental status Narrative: 36 female with h/o substance abuse. Boyfriend found her at home today agitated, confused, estimates she was not under observation for period of 1-3 hours. Brought to ER. In ER patiently agitated, thrashing about, required physical and chemical restraint (Ketamine) to evaluate. Evaluation of note for normal vital signs, non-focal exam; and general labs notably unremarkable save a CRP 2.58 (chronically elevated) and UDS positive only for Methadone (which she is on). After Ketamine patient is described as significantly improved though still altered. I was asked to evaluate for admission. Patient does not provide any history, and specifically no response when asked if she took any drugs tonight. Review of Systems Narrative: unable due to mental status PFSH All Active Problems AMS (altered mental status) (Acute) Agitated (Acute) Cellulitis of left hand (Acute) Foreign body in foot, left (Acute) Localized swelling of left lower extremity (Acute) Cellulitis of hand, right (Acute) Cellulitis (Acute) Throat pain in adult (Acute) (Acute) Smoker (Acute) Viral illness (Acute) Dehydration (Acute) ADHD, hyperactive-impulsive type (Chronic 05/14/16) Subacute endocarditis (Acute 01/22/16) MSSA endocarditis January, Cardiomyopathy (Chronic 01/22/16) Pleural effusion, bilateral (Acute 01/22/16) History of prior with IUGR (Acute 01/11/15) History of kidney injury (Acute 01/17/16) Acute January, History of drug abuse (Acute 01/17/16) In IP treatment at [place], no longer on methadone as of 01/17/16. [facility] is close to resolved - will end . She is expecting 1st daughter to come home. Depression (Acute 01/11/15) Chronic hepatitis C without hepatic coma (Chronic 01/11/15) Bacterial vaginosis (Acute 05/24/13) Rx with Metronidazole cream given 04/19/15. Anemia of chronic disease (Acute 01/17/16) Insomnia (Acute) Discharge planning issues (Acute) DVT prophylaxis (Acute) Fever (Acute) Prepatellar bursitis of right knee (Acute) Edema (Acute) Mitral regurgitation (Chronic) Opioid dependence (Chronic) Anemia (Chronic) Anxiety (Chronic) Medical History ADHD Alcohol abuse Amputation of right foot COVID-19 virus infection Depression difficulty bonding with 2nd child. child removed from her custody. was on Wellbutrin but had sz and not on meds at this time. has appt with counselor 03/2015 Effusion, right knee Herpes, vulvar History of depression HSV infection Hx of infant who one week after . ? HSV or H1N1 infection. Pt has been on prophylaxis with pregnancies. Hx of cocaine abuse Paresthesia of both hands Personality disorder examination or test, positive result PTSD (post-traumatic stress disorder) Surgical History Amputation 12/23/16;[facility]; RIGHT BELOW THE KNEE section (11/24/12) PCD @ 35w. IUGR. [facility]. [id number]. [facility]. [place]. Pt arrived in labor and declined SUN. F. Jessica. Family History Mother No problems noted. Father No problems noted. Brother No problems noted. Grandfather No problems noted. Grandfather No problems noted. Grandmother No problems noted. Grandmother No problems noted. Son No problems noted. Son No problems noted. Daughter No problems noted. Daughter No problems noted. Social History Smoking/Tobacco Use Status: Current every day Tobacco Type: cigarettes Smoking risk assessment performed?: Yes Alcohol Intake: former Drug use: Occasionally Substance use type: former substance user, marijuana, crack/cocaine and heroin Do you feel safe at home: Yes Do you feel safe in your relationship?: Yes History History 4 Para 4 Hx # Term Pregnancies Multiple births Hx # Pregnancies Ectopic pregnancies AB induced Hx Number of Living Children 3 AB spontaneous Past Pregnancies Del. Date GA/Weeks # Outcome Route Wgt Sex Labor Lgth Anesthes ia Location Prov Complic 12/28/20 25 Delivery Date: 12/28/20 Last Updated by: Roxanna Rocha LPN Patient transferred OB care to [facility] Meds Allergies and Home Medications Allergies Allergy/AdvReac Type Severity Reaction Status Date / Time bupropion HCl AdvReac Intermediate Contraindic Unverified 07/13/21 06:59 [From Wellbutrin SR] ated Home Medications Medication Instructions Recorded Confirmed Type naloxone 4 mg/actuation nasal 4 mg intranasal Q2M PRN 05/29/20 07/13/21 History spray (Narcan) methylphenidate HCl 20 mg tablet 20 mg PO TID 05/31/21 07/13/21 History mirtazapine 30 mg tablet 30 mg PO HS 05/31/21 07/13/21 History gabapentin 800 mg tablet 800 mg PO QID 06/02/21 07/13/21 History methadone 10 mg/mL oral concentrate 125 mg PO DAILY 06/02/21 06/02/21 History methylphenidate HCl 30 mg biphasic 30 mg PO DAILY 06/02/21 07/13/21 History 50-50 capsule,extended release Acetaminophen [Tylenol] 650 mg PO Q4H PRN PRN ##0 06/05/21 07/13/21 Rx sulfamethoxazole 800 1 tab PO BID #14 tabs 06/05/21 Rx mg-trimethoprim 160 mg tablet Exam Narrative Exam Narrative: 117/67, 68, 36.7, 15, 99% RA. HEENT atraumatic; neck supple; lungs clear; heart RRR; abdomen soft and NT; extremities w/o edema; neuro alternately resting or moaning with gentle thrashing of limbs, no verbal response but does follow one step commands with all 4s Results Labs Result diagrams: 08/19/21 21:55 08/19/21 21:55 Labs: Laboratory Results - last 24 hr 08/19/21 08/19/21 08/19/21 21:55 21:55 21:55 WBC RBC Hgb Hct MCV MCH MCHC RDW Plt Count MPV Immature Gran % Neutrophils % Lymphocytes % Monocytes % Eosinophils % Basophils % Nucleated RBC % Absolute Neutrophils Absolute Lymphocytes Absolute Monocytes Absolute Eosinophils Absolute Basophils ESR VBG pH VBG pCO2 VBG pO2 VBG HCO3 VBG Total CO2 VBG O2 Saturation VBG Base Excess Sodium 135 L Potassium 4.2 Chloride 98 Carbon Dioxide 25.2 Anion Gap 11.8 H BUN 19 H Creatinine 1.2 H Estimated GFR/1.73 m2 50.55 Glucose 98 Calcium 9.6 Total Bilirubin 0.3 AST 30 ALT 29 Alkaline Phosphatase 136 H Ammonia 16 C-Reactive Protein 2.58 H Total Protein 9.1 H Albumin 4.3 TSH 2.11 Beta HCG, Quant < 1 L Urine Color Urine Clarity Urine pH Ur Specific [place] Urine Protein Urine Ketones Urine Blood Urine Nitrite Urine Bilirubin Urine Urobilinogen Ur Leukocyte Esterase Urine RBC Urine WBC Ur Epithelial Cells Urine Crystals Urine Bacteria Urine Casts Urine Mucus Ur Culture Indicated? Urine Glucose Salicylates 3.2 Urine Opiates Screen Urine Methadone Screen Acetaminophen < 2 Ur Barbiturates Screen Ur Tricyclics Screen Ur Amphetamines Screen U Benzodiazepines Scrn Urine Cocaine Screen Ur THC Screen Ethyl Alcohol < 3.0 COVID-19 Source SARS-CoV-2 (PCR) Influenza Type A (PCR) Influenza Type B (PCR) RSV (PCR) 08/19/21 08/19/21 08/19/21 21:55 21:55 21:55 WBC 7.43 RBC 4.51 Hgb 11.9 Hct 37.2 MCV 83 MCH 26.4 L MCHC 32.0 RDW 13.8 Plt Count 321 MPV 9.5 Immature Gran % 0.4 Neutrophils % 82.6 Lymphocytes % 12.4 Monocytes % 4.0 Eosinophils % 0.3 Basophils % 0.3 Nucleated RBC % 0.0 Absolute Neutrophils 6.14 Absolute Lymphocytes 0.92 L Absolute Monocytes 0.30 Absolute Eosinophils 0.02 Absolute Basophils 0.02 ESR 54 H VBG pH 7.39 VBG pCO2 44 VBG pO2 30 VBG HCO3 27 VBG Total CO2 25 VBG O2 Saturation 53 VBG Base Excess 2 Sodium Potassium Chloride Carbon Dioxide Anion Gap BUN Creatinine Estimated GFR/1.73 m2 Glucose Calcium Total Bilirubin AST ALT Alkaline Phosphatase Ammonia C-Reactive Protein Total Protein Albumin TSH Beta HCG, Quant Urine Color Urine Clarity Urine pH Ur Specific [place] Urine Protein Urine Ketones Urine Blood Urine Nitrite Urine Bilirubin Urine Urobilinogen Ur Leukocyte Esterase Urine RBC Urine WBC Ur Epithelial Cells Urine Crystals Urine Bacteria Urine Casts Urine Mucus Ur Culture Indicated? Urine Glucose Salicylates Urine Opiates Screen Urine Methadone Screen Acetaminophen Ur Barbiturates Screen Ur Tricyclics Screen Ur Amphetamines Screen U Benzodiazepines Scrn Urine Cocaine Screen Ur THC Screen Ethyl Alcohol COVID-19 Source SARS-CoV-2 (PCR) Influenza Type A (PCR) Influenza Type B (PCR) RSV (PCR) 08/19/21 08/19/21 08/19/21 22:03 22:03 22:17 WBC RBC Hgb Hct MCV MCH MCHC RDW Plt Count MPV Immature Gran % Neutrophils % Lymphocytes % Monocytes % Eosinophils % Basophils % Nucleated RBC % Absolute Neutrophils Absolute Lymphocytes Absolute Monocytes Absolute Eosinophils Absolute Basophils ESR VBG pH VBG pCO2 VBG pO2 VBG HCO3 VBG Total CO2 VBG O2 Saturation VBG Base Excess Sodium Potassium Chloride Carbon Dioxide Anion Gap BUN Creatinine Estimated GFR/1.73 m2 Glucose Calcium Total Bilirubin AST ALT Alkaline Phosphatase Ammonia C-Reactive Protein Total Protein Albumin TSH Beta HCG, Quant Urine Color Yellow Urine Clarity Clear Urine pH 6.0 Ur Specific [place] >= 1.030 H Urine Protein Trace H Urine Ketones Negative Urine Blood Negative Urine Nitrite Negative Urine Bilirubin Negative Urine Urobilinogen 0.2 Ur Leukocyte Esterase Negative Urine RBC Negative Urine WBC 0-2 Ur Epithelial Cells Few Urine Crystals Negative Urine Bacteria Rare Urine Casts 0-2 Hyaline Urine Mucus Trace Ur Culture Indicated? No Urine Glucose Negative Salicylates Urine Opiates Screen Negative Urine Methadone Screen Positive A Acetaminophen Ur Barbiturates Screen Negative Ur Tricyclics Screen Negative Ur Amphetamines Screen Negative U Benzodiazepines Scrn Negative Urine Cocaine Screen Negative Ur THC Screen Negative Ethyl Alcohol COVID-19 Source Nasopharynx SARS-CoV-2 (PCR) Negative Influenza Type A (PCR) Negative Influenza Type B (PCR) Negative RSV (PCR) Negative Last Vital Signs Pulse 66 08/20/21 00:00 Resp 15 08/20/21 00:01 BP 117/67 08/20/21 00:00 Pulse Ox 99 08/20/21 00:01
--- NOTE | 2021-08-20 00:30 | NUR.NOTE ---
Nursing Note: Significant other, Carlos Bustillos, phone number is [phone]. Father, Toribio Bourgeois, phone number is [phone].
--- NOTE | 2021-08-20 01:10 | RESPIRATORY ---
2150 RT called in for conscious sedation on pt with altered mental status and violent behavior. Pt resting comfortably with intermittent bouts of agitation. Pt didn't require any supplemental O2. SpO2 > 98%.
[2021-08-20] MEDS: Lactated Ringers 1,000 ML 150 ML IV (02:15)
--- NOTE | 2021-08-20 02:59 | DI.VRAD_ITS ---
PROCEDURE INFORMATION: Exam: CT Head Without Contrast Exam date and time: 08/20/2021 12:38 AM Age: 36 years old Clinical indication: Altered mental status/memory loss; Confusion or disorientation; Patient HX: AMS TECHNIQUE: Imaging protocol: Computed tomography of the head without contrast. Radiation optimization: All CT scans at this facility use at least one of these dose optimization techniques: automated exposure control; mA and/or kV adjustment per patient size (includes targeted exams where dose is matched to clinical indication); or iterative reconstruction. COMPARISON: CT HEAD CERVICAL SPINE WO 07/13/2021 7:59 AM FINDINGS: Brain: Normal. No hemorrhage. Unremarkable white matter. No mass effect. Cerebral ventricles: No ventriculomegaly. Paranasal sinuses: Minimal mucosal thickening left maxillary sinus. No fluid levels. Mastoid air cells: Visualized mastoid air cells are well aerated. Bones/joints: Unremarkable. No acute fracture. Soft tissues: Unremarkable. IMPRESSION: No acute intracranial abnormality. Dictated and Authenticated by: Sean Lopez MD. Ordering:ARIANNE Jaimes MD
[2021-08-20] MEDS: ACETAMINOPHEN 1,000 MG/100 ML BTL 400 MG IVPB (04:02)
--- NOTE | 2021-08-20 07:57 | INITIAL_ITS ---
- If Service Date Differs Date of service: 08/20/21 Time of Service: 07:57 Care Management Initial Assess REASON FOR HOSPITALIZATION:: AMS PAST MEDICAL HISTORY/PAST SURGICAL HISTORY:: All Active Problems . AMS (altered mental status) (Acute). Agitated (Acute). Cellulitis of left hand (Acute). Foreign body in foot, left (Acute). Localized swelling of left lower extremity (Acute). Cellulitis of hand, right (Acute). Cellulitis (Acute). Throat pain in adult (Acute). (Acute). Smoker (Acute). Viral illness (Acute). Dehydration (Acute). ADHD, hyperactive-impulsive type (Chronic 05/14/16). Subacute endocarditis (Acute 01/22/16). MSSA endocarditis January,. Cardiomyopathy (Chronic 01/22/16). Pleural effusion, bilateral (Acute 01/22/16). History of prior with IUGR (Acute 01/11/15). History of kidney injury (Acute 01/17/16). Acute January,. History of drug abuse (Acute 01/17/16). In IP treatment at [place], no longer on methadone as of 01/17/16. Family court is close to resolved - will end . She is expecting 1st daughter to come home. Depression (Acute 01/11/15). Chronic hepatitis C without hepatic coma (Chronic 01/11/15). B acterial vaginosis (Acute 05/24/13). Rx with Metronidazole cream given 04/19/15. Anemia of chronic disease (Acute 01/17/16). Insomnia (Acute). Discharge planning issues (Acute). DVT prophylaxis (Acute). Fever (Acute). Prepatellar bursitis of right knee (Acute). Edema (Acute). Mitral regurgitation (Chronic). Opioid dependence (Chronic). Anemia (Chronic). Anxiety (Chronic). Medical History . ADHD. Alcohol abuse. Amputation of right foot. COVID-19 virus infection. Depression. difficulty bonding with 2nd child. child removed from her custody. was on Wellbutrin but had sz and not on meds at this time. has appt with counselor 03/2015. Effusion, right knee. Herpes, vulvar. History of depression. HSV infection. Hx of infant who one week after . ? HSV or H1N1 infection. Pt has been on prophylaxis with pregnancies. Hx of cocaine abuse. Paresthesia of both hands. Personality disorder. . examination or test, positive result. PTSD (post-traumatic stress disorder). Surgical History . Amputation. 12/23/16;[facility]; RIGHT BELOW THE KNEE. section (11/24/12). PCD @ 35w. [facility]. [facility]. [id number]. [facility] [place]. 03/26/15 RCD. Pt arrived in labor and declined SUN. Daisy. Jessica. PREVIOUS FUNCTIONAL STATUS/SOCIAL/FAMILY SUPPORTS:: Denisse resides in [place] with her mother and 2 children, a 6 month old baby and a 6 year old daughter.. She has a significant other, Carlos Bustillos, who often stays with her as well. Denisse is independent at baseline, with disability determination due to BKA. Denisse is in [facility] recovery at this time attached to maintenance program. CURRENT FUNCTIONAL STATUS:: Denisse was sitting up in bed preparing to be discharged when CM met with her. She was friendly and talkative and stated that she just wanted to go home to be with her children. She stated that she did not feel the need for any services. ADVANCE DIRECTIVES:: none on file at [facility] Has patient been provided with info about the portal/API?: Yes Did the patient sign up for the portal?: No CODE STATUS:: Full Code INSURANCE COVERAGE / FINANCIAL ISSUES:: Medicaid CURRENT HOME/COMMUNITY SERVICES/EQUIPMENT:: methadone maintenance PRIMARY CARE PHYSICIAN:: Ivonne Hampton POTENTIAL DISCHARGE NEEDS:: follow up with PCP and plan of care PATIENT/FAMILY EDUCATION NEEDS:: Review of discharge instructions, limitations, activity, medications, follow up plan; discuss Ask Me Three TRANSPORTATION:: via private vehicle with family PLAN:: Denisse will likely be dischgarge home with no new services. She will follow up with her PCP and plan of care and transport with shashi. CM will support Denisse and her discharge planning needs.
[2021-08-20] MEDS: Methadone Liquid 10 MG/ML 125 MG PO (09:24)
[2021-08-20] MEDS: Gabapentin 600 MG TAB PO ×2 (09:24→13:56)
[2021-08-20] MEDS: Normal Saline Flush 10 ML SYR IVP (09:43)
[2021-08-20] MEDS: Methylphenidate 10 MG TAB 30 MG PO ×3 (10:29→15:33)
--- NOTE | 2021-08-20 15:06 | DSE_ITS ---
Date of service: 08/20/21 Time of Service: 15:06 DS: Diagnosis Discharge Diagnosis (1) AMS (altered mental status): Status: Resolved Discharge Plan Disposition Patient Disposition: HOME Condition: Improving Discharge Details Reason For Visit: Altered Mental Status Admit Date/Time: 08/20/21 00:35 Admit Provider: Sergio Anand Attending Provider: Sergio Anand Primary Care Provider: Ivonne Hampton Hospital Course Hospital Course: This is a 36 female with h/o substance abuse, bacterial endocarditis, cardiomyopathy, chronic hepatitis C, depression/anxiety, personality disorder, ADHD, . She presented to the ED after her boyfriend found her at home agitated, confused. Estimates she was not under observation for a period of 1-3 hours. In ER she was agitated, thrashing about, required physical and chemical restraint (Ketamine) to evaluate. Evaluation of note for normal vital signs, non-focal exam; and general labs notably unremarkable save a CRP 2.58 (chronically elevated) and UDS positive only for Methadone (which she is on). After Ketamine patient is described as significantly improved though still altered. Hospitalist was asked to evaluate for admission. Patient did not provide any history, and specifically no response when asked if she took any drugs recently. Her UDS was positive methadone; she is prescribed this. Her hospital course was unremarkable. The day following admission she was at her baseline level of functioning / cognition and was d/c'd to home. Care management evaluated. PCP f/u in 1 week. Home Meds and New Rx's Prescriptions: Continued naloxone [Narcan] 4 mg/actuation spray,non-aerosol 4 mg intranasal Q2M PRN Rx Instructions: spray 1 dose into ONE nostril; alternate nostrils w each dose until help arrives gabapentin 800 mg tablet 800 mg PO QID Label Comments: TAKE ONE TABLET BY MOUTH FOUR TIMES A DAY methadone 10 mg/mL Concentrate 125 mg PO DAILY Rx Instructions: CONFIRMED DOSE WITH LORIN 08/20/21 125MG QAM Acetaminophen [Tylenol] 650 mg PO Q4H PRN PRNQty: 0 0RF olanzapine 5 mg tablet 5 mg PO TID PRN PRN (Reason: Agitation) Label Comments: TAKE ONE TABLET BY MOUTH EVERY EVENING AND EVERY 8 HOURS FOR AGITATION olanzapine 5 mg tablet 1 tab PO HS Label Comments: TAKE ONE TABLET BY MOUTH EVERY EVENING AND EVERY 8 HOURS FOR AGITATION methylphenidate HCl 10 mg tablet 10 mg PO TID Rx Instructions: take with 20 mg cap for 30 mg tid methylphenidate HCl 20 mg tablet 20 mg PO TID Label Comments: TAKE 1 TABLET BY MOUTH THREE TIMES DAILY. MAY FILL WHEN FOCALIN DUE Rx Instructions: Dexmethylphenidate ER 30mg QAM, Methylphenidate IR 20mg TID mirtazapine 30 mg tablet 30 mg PO HS Label Comments: TAKE 1 TABLET BY MOUTH AT BEDTIME Discharge Instructions Referrals: Ivonne Hampton [Primary Care Provider] - (Follow up with your PCP within 1 week.) Activity:: Activity as Tolerated Equipment/Supplies:: No Equipment Needed Diet:: Resume usual diet Discharge Orders Discharge Orders: Discharge Order (Routine); Ordered 08/20/21 Ordered By: Ray Khan Discharge Data Discharge Date/Time-TO BE ENTERED AT DEPARTURE: 08/20/21 15:40 Discharge Comment: All questions answered. Escorted to [facility]. DS: Summary Time Spent with Patient providing and/or coordinating discharge services: Less than 30 minutes Status at Discharge Functional status at discharge: independent ambulation Overall status at discharge: patient is back to baseline Mental Status: mental status grossly normal Speech and Movement: speech and movement normal Mood: anxious mood Affect: anxious affect Exam Psych Mental Status: mental status grossly normal Speech and Movement: speech and movement normal Mood: anxious mood Affect: anxious affect DS: Data Vitals/I&O Vitals and I&O: Vital Signs Temperature 37.1 C 08/20/21 12:00 Temperature Source Tympanic 08/20/21 12:00 Pulse 80 08/20/21 12:00 Pulse 74 08/20/21 13:50 Respiratory Rate 20 08/20/21 13:50 Respiratory Effort Non-Labored 08/20/21 12:00 Respiratory Depth Normal 08/20/21 12:00 Respiratory Pattern Normal 08/20/21 12:00 Blood Pressure 109/56 L 08/20/21 12:00 Blood Pressure Mean 73 08/20/21 12:00 Blood Pressure Position Supine 08/20/21 12:00 Pulse Oximetry 97 08/20/21 12:00 Oxygen Delivery Method Room Air 08/20/21 12:00 Oxygen Flow Rate 0 08/20/21 12:00 Pain Level 4 08/20/21 12:00 Intake & Output 08/19/21 08/20/2108/20/22 23:59 11:59 23:59 Intake Total 1590 / 1590 Output Total 450 / 950 500 / 950 Balance 1140 / 640 -500 / 640 Weight 62.142 kg 56.6 kg Intake: IV 1110 / 1110 Oral 480 / 480 Output: Urine 450 / 950 500 / 950 Other: Urine Color Dark Patricia Dark Patricia Urine Appearance Clear Cloudy Urine Odor Strong Normal Comment Tramatic straight cath in ED Tramatic straight cath in ED Stool Occult Blood Negative Stool Size Small Stool Characteristics Formed Voiding Methods Bedside Commode Bedside Commode Data Completed and Pending Labs on day of discharge: Labs from last 24 hours 08/19/21 08/19/21 08/19/21 22:17 22:03 22:03 WBC RBC Hgb Hct MCV MCH MCHC RDW Plt Count MPV Immature Gran % Neutrophils % Lymphocytes % Monocytes % Eosinophils % Basophils % Nucleated RBC % Absolute Neutrophils Absolute Lymphocytes Absolute Monocytes Absolute Eosinophils Absolute Basophils ESR VBG pH VBG pCO2 VBG pO2 VBG HCO3 VBG Total CO2 VBG O2 Saturation VBG Base Excess Sodium Potassium Chloride Carbon Dioxide Anion Gap BUN Creatinine Estimated GFR/1.73 m2 Glucose Calcium Total Bilirubin AST ALT Alkaline Phosphatase Ammonia C-Reactive Protein Total Protein Albumin TSH Beta HCG, Quant Urine Color Yellow Urine Clarity Clear Urine pH 6.0 Ur Specific [place] >= 1.030 H Urine Protein Trace H Urine Ketones Negative Urine Blood Negative Urine Nitrite Negative Urine Bilirubin Negative Urine Urobilinogen 0.2 Ur Leukocyte Esterase Negative Urine RBC Negative Urine WBC 0-2 Ur Epithelial Cells Few Urine Crystals Negative Urine Bacteria Rare Urine Casts 0-2 Hyaline Urine Mucus Trace Ur Culture Indicated? No Urine Glucose Negative Salicylates Urine Opiates Screen Negative Urine Methadone Screen Positive A Acetaminophen Ur Barbiturates Screen Negative Ur Tricyclics Screen Negative Ur Amphetamines Screen Negative U Benzodiazepines Scrn Negative Urine Cocaine Screen Negative Ur THC Screen Negative Ethyl Alcohol COVID-19 Source Nasopharynx SARS-CoV-2 (PCR) Negative Influenza Type A (PCR) Negative Influenza Type B (PCR) Negative RSV (PCR) Negative 08/19/21 08/19/21 08/19/21 21:55 21:55 21:55 WBC 7.43 RBC 4.51 Hgb 11.9 Hct 37.2 MCV 83 MCH 26.4 L MCHC 32.0 RDW 13.8 Plt Count 321 MPV 9.5 Immature Gran % 0.4 Neutrophils % 82.6 Lymphocytes % 12.4 Monocytes % 4.0 Eosinophils % 0.3 Basophils % 0.3 Nucleated RBC % 0.0 Absolute Neutrophils 6.14 Absolute Lymphocytes 0.92 L Absolute Monocytes 0.30 Absolute Eosinophils 0.02 Absolute Basophils 0.02 ESR 54 H VBG pH 7.39 VBG pCO2 44 VBG pO2 30 VBG HCO3 27 VBG Total CO2 25 VBG O2 Saturation 53 VBG Base Excess 2 Sodium Potassium Chloride Carbon Dioxide Anion Gap BUN Creatinine Estimated GFR/1.73 m2 Glucose Calcium Total Bilirubin AST ALT Alkaline Phosphatase Ammonia C-Reactive Protein Total Protein Albumin TSH Beta HCG, Quant Urine Color Urine Clarity Urine pH Ur Specific [place] Urine Protein Urine Ketones Urine Blood Urine Nitrite Urine Bilirubin Urine Urobilinogen Ur Leukocyte Esterase Urine RBC Urine WBC Ur Epithelial Cells Urine Crystals Urine Bacteria Urine Casts Urine Mucus Ur Culture Indicated? Urine Glucose Salicylates Urine Opiates Screen Urine Methadone Screen Acetaminophen Ur Barbiturates Screen Ur Tricyclics Screen Ur Amphetamines Screen U Benzodiazepines Scrn Urine Cocaine Screen Ur THC Screen Ethyl Alcohol COVID-19 Source SARS-CoV-2 (PCR) Influenza Type A (PCR) Influenza Type B (PCR) RSV (PCR) 08/19/21 08/19/21 08/19/21 21:55 21:55 21:55 WBC RBC Hgb Hct MCV MCH MCHC RDW Plt Count MPV Immature Gran % Neutrophils % Lymphocytes % Monocytes % Eosinophils % Basophils % Nucleated RBC % Absolute Neutrophils Absolute Lymphocytes Absolute Monocytes Absolute Eosinophils Absolute Basophils ESR VBG pH VBG pCO2 VBG pO2 VBG HCO3 VBG Total CO2 VBG O2 Saturation VBG Base Excess Sodium 135 L Potassium 4.2 Chloride 98 Carbon Dioxide 25.2 Anion Gap 11.8 H BUN 19 H Creatinine 1.2 H Estimated GFR/1.73 m2 50.55 Glucose 98 Calcium 9.6 Total Bilirubin 0.3 AST 30 ALT 29 Alkaline Phosphatase 136 H Ammonia 16 C-Reactive Protein 2.58 H Total Protein 9.1 H Albumin 4.3 TSH 2.11 Beta HCG, Quant < 1 L Urine Color Urine Clarity Urine pH Ur Specific [place] Urine Protein Urine Ketones Urine Blood Urine Nitrite Urine Bilirubin Urine Urobilinogen Ur Leukocyte Esterase Urine RBC Urine WBC Ur Epithelial Cells Urine Crystals Urine Bacteria Urine Casts Urine Mucus Ur Culture Indicated? Urine Glucose Salicylates 3.2 Urine Opiates Screen Urine Methadone Screen Acetaminophen < 2 Ur Barbiturates Screen Ur Tricyclics Screen Ur Amphetamines Screen U Benzodiazepines Scrn Urine Cocaine Screen Ur THC Screen Ethyl Alcohol < 3.0 COVID-19 Source SARS-CoV-2 (PCR) Influenza Type A (PCR) Influenza Type B (PCR) RSV (PCR) PFSH All Active Problems (Updated 08/21/21 @ 00:05 by LYDUMILA MUNGUIA) Cellulitis of left hand (Acute) Foreign body in foot, left (Acute) Localized swelling of left lower extremity (Acute) Cellulitis of hand, right (Acute) Cellulitis (Acute) Throat pain in adult (Acute) (Acute) Smoker (Acute) Viral illness (Acute) Dehydration (Acute) ADHD, hyperactive-impulsive type (Chronic 05/14/16) Subacute endocarditis (Acute 01/22/16) MSSA endocarditis January, Cardiomyopathy (Chronic 01/22/16) Pleural effusion, bilateral (Acute 01/22/16) History of prior with IUGR (Acute 01/11/15) History of kidney injury (Acute 01/17/16) Acute January, History of drug abuse (Acute 01/17/16) In IP treatment at [facility], no longer on methadone as of 01/17/16. Family court is close to resolved - will end . She is expecting 1st daughter to come home. Depression (Acute 01/11/15) Chronic hepatitis C without hepatic coma (Chronic 01/11/15) Bacterial vaginosis (Acute 05/24/13) Rx with Metronidazole cream given 04/19/15. Anemia of chronic disease (Acute 01/17/16) Insomnia (Acute) Discharge planning issues (Acute) DVT prophylaxis (Acute) Fever (Acute) Prepatellar bursitis of right knee (Acute) Edema (Acute) Mitral regurgitation (Chronic) Opioid dependence (Chronic) Anemia (Chronic) Anxiety (Chronic) Medical History ADHD Alcohol abuse Amputation of right foot COVID-19 virus infection Depression difficulty bonding with 2nd child. child removed from her custody. was on Wellbutrin but had sz and not on meds at this time. has appt with counselor 03/2015 Effusion, right knee Herpes, vulvar History of depression HSV infection Hx of who one week after . ? HSV or H1N1 infection. Pt has been on prophylaxis with pregnancies. Hx of cocaine abuse Paresthesia of both hands Personality disorder examination or test, positive result PTSD (post-traumatic stress disorder) Surgical History Amputation 12/23/16;[facility]; RIGHT BELOW THE KNEE section (11/24/12) PCD @ 35w. IUGR. NRFH. [id number][place] [facility] [place]. Pt arrived in labor and declined SUN. F. Jessica. Family History Mother No problems noted. Father No problems noted. Brother No problems noted. Grandfather No problems noted. Grandfather No problems noted. Grandmother No problems noted. Grandmother No problems noted. Son No problems noted. Son No problems noted. Daughter No problems noted. Daughter No problems noted. Social History Smoking/Tobacco Use Status: Current every day Tobacco Type: cigarettes Smoking risk assessment performed?: Yes Alcohol Intake: former Drug use: Occasionally Substance use type: former substance user, marijuana, crack/cocaine and heroin Do you feel safe at home: Yes Do you feel safe in your relationship?: Yes History History 4 Para 4 Hx # Term Pregnancies Multiple births Hx # Pregnancies Ectopic pregnancies AB induced Hx Number of Living Children 3 AB spontaneous Past Pregnancies Del. Date GA/Weeks # Outcome Route Wgt Sex Labor Lgth Anesthes ia Location Prov Complic 12/28/20 25 Delivery Date: 12/28/20 Last Updated by: Roxanna Rocha LPN Patient transferred OB care to [facility]
--- NOTE | 2021-08-20 17:56 | PDOC.CMDIS ---
- If Service Date Differs Date of service: 08/20/21 Time of Service: 17:56 LACE Index Scoring Tool - Questions: Length of Stay (in days): 1 Acuity (Admit via E.D.?): Yes Comorbidities: Liver or Renal Disease E.D. Visits: 9 - Answers: Total Score: 13 Risk of Readmission: High Risk Care Management Discharge Reason for Hospitalization: AMS Discharge Plan: Denisse will be dischgarge home with no new services. She will follow up with her PCP and plan of care and transport with family. Patient/Family Education Needs: Review of discharge instructions, limitations, activity, medications, follow up plan; discuss Ask Me Three
== END 2021-08-20 15:40 | disposition home or self-care (01) ==
LOC: ER 08-20 01:12 → ICU 08-20 01:43
PROVIDERS: Admitting Provider General Practice; Emergency Provider Student in an Organized Health Care Education/Training Program; PCP Nurse Practitioner Family; Visit Provider General Practice
DX: R41.82 Altered mental status, unspecified (principal); R45.1 Restlessness and agitation; Z78.1 Physical restraint status; F11.20 Opioid dependence, uncomplicated; F41.9 Anxiety disorder, unspecified; F32.A Depression, unspecified; F90.9 Attention-deficit hyperactivity disorder, unspecified type; F17.210 Nicotine dependence, cigarettes, uncomplicated; I42.9 Cardiomyopathy, unspecified; B18.2 Chronic viral hepatitis C; D63.8 Anemia in other chronic diseases classified elsewhere; F19.11 Other psychoactive substance abuse, in remission; I34.0 Nonrheumatic mitral (valve) insufficiency; Z20.822 Contact with and (suspected) exposure to COVID-19; Z89.511 Acquired absence of right leg below knee; Z32.02 Encounter for pregnancy test, result negative
CPT/HCPCS: 36415; 80053; 80307; 81025; 82805; 85652; 87637; 96361; 96365; 99285; 70450; 80320; 80329; 81003; 81015; 82140; 84443; 84702; 85025; 86140; 99235; G0378; J0131

== ENCOUNTER 2021-09-03 15:37 | Outpatient (REF) | payer MEDICAID, SELFPAY ==
[2021-09-03 15:41] LABS: Bilirubin Negative (Negative); Blood Trace-intact (Negative); Clarity Clear (Clear); Glucose Negative (Negative); Ketones Negative (Negative); Leukocyte Esterase Negative (Negative); Nitrite Negative (Negative); Urobilinogen 0.2 EU/dL (Up TO 0.2)
[2021-09-03 15:52] LABS: Bacteria Negative HPF (Negative); C & S Indicated? C&S Done As Ordered; Casts Negative LPF (Negative); Crystals Negative HPF (Negative); Epithelial Cells Negative HPF (Negative); Mucus Negative (Negative); Other Cells Negative (Negative)
[2021-09-04 19:32] LABS: Chlamydia Result Negative (Negative); GC Result Negative (Negative)
== END 2021-09-03 15:38 | disposition home or self-care (01) ==
LOC: LBN 15:37
PROVIDERS: PCP Nurse Practitioner Family; Visit Provider Nurse Practitioner Family
DX: N39.0 Urinary tract infection, site not specified (principal); R30.0 Dysuria
CPT/HCPCS: 87077; 87491; 87591; 81003; 81015; 87086; 87186

== ENCOUNTER 2021-10-13 14:12 | Emergency (ER) | payer MEDICAID, SELFPAY ==
[2021-10-13 14:19] VITALS: PULSE 68; RESP 18; O2SAT 98
--- NOTE | 2021-10-13 14:30 | DI.RAD_ITS ---
Exam(s) XR KNEE RT 4V AP,LAT,PORTER,PAT EXAM: XR KNEE RT 4V AP,LAT,PORTER,PAT CLINICAL HISTORY: pain. TECHNIQUE: 2D digital imaging was performed. Three views. COMPARISON: No exams were available for comparison FINDINGS: Below the knee amputation. Soft tissue swelling at stump. No bony erosions prepatellar edema. No j oint effusion. Joint spaces are well maintained. IMPRESSION: Soft tissue swelling at stump as well as prepatellar region. DATA REPOSITORY: RADIATION DOSE DELIVERED:
--- NOTE | 2021-10-13 14:32 | W.ED.GENAD ---
Discharge Plan Disposition Patient Disposition: HOME Discharge Details Clinical Impression: Leg pain Primary Care Provider: Ivonne Hampton ED Provider: Yair Leung Home Meds and New Rx's Prescriptions: No Action naloxone [Narcan] 4 mg/actuation spray,non-aerosol 4 mg intranasal Q2M PRN Rx Instructions: spray 1 dose into ONE nostril; alternate nostrils w each dose until help arrives gabapentin 800 mg tablet 800 mg PO QID Label Comments: TAKE ONE TABLET BY MOUTH FOUR TIMES A DAY methadone 10 mg/mL Concentrate 125 mg PO DAILY Rx Instructions: CONFIRMED DOSE WITH BAART 08/20/21 125MG QAM Acetaminophen [Tylenol] 650 mg PO Q4H PRN PRNQty: 0 0RF olanzapine 5 mg tablet 5 mg PO TID PRN PRN (Reason: Agitation) Label Comments: TAKE ONE TABLET BY MOUTH EVERY EVENING AND EVERY 8 HOURS FOR AGITATION olanzapine 5 mg tablet 1 tab PO HS Label Comments: TAKE ONE TABLET BY MOUTH EVERY EVENING AND EVERY 8 HOURS FOR AGITATION methylphenidate HCl 10 mg tablet 10 mg PO TID Rx Instructions: take with 20 mg cap for 30 mg tid methylphenidate HCl 20 mg tablet 20 mg PO TID Label Comments: TAKE 1 TABLET BY MOUTH THREE TIMES DAILY. MAY FILL WHEN FOCALIN DUE Rx Instructions: Dexmethylphenidate ER 30mg QAM, Methylphenidate IR 20mg TID mirtazapine 30 mg tablet 30 mg PO HS Label Comments: TAKE 1 TABLET BY MOUTH AT BEDTIME Discharge Instructions Additional Instructions: Apply ice pack to the affected area for comfort. You may take Tylenol or Motrin for the pain. Try not to use your prosthesis for the next 2 days. Follow-up with your primary care doctor in the next week Medical Decision Making X-ray of the knee and the stump site does not reveal any fracture. There is a question of this suspected prepatellar soft tissue edema. This could be secondary to the fall that she had over the use of the prosthesis. Patient will be discharged after dose of Toradol in the emergency department. She was told to follow-up with her PCP as needed. I have asked her to avoid using the prosthesis for the next 2 days to get the stump site arrest. HPI General Date/Time Provider Initiated Documentation: 10/13/21 14:31. HPI Narrative: 36-year-old presented to the emergency room for evaluation of pain on the stump of the right leg. She states that she was swimming in the pool this morning with her prosthesis. Upon getting out of the pool she slipped and somehow hurt her leg. He states that the site of the stump has been very tender since then. Unable to use her prosthesis. She does not believe she broke the prosthesis. This is an isolated injury to the right leg. No head trauma no chest trauma no back pain abdominal pain no other extremity injury. She took some Motrin prior to coming to the emergency department which seems to be helping a bit. She has not applied any ice. The pain is described as moderate. No radiation. Worse with touch. Related Data Home Medications Medication Instructions Recorded Confirmed naloxone 4 mg/actuation nasal 4 mg intranasal Q2M PRN 05/29/20 08/20/21 spray (Narcan) methylphenidate HCl 20 mg tablet 20 mg PO TID 05/31/21 08/20/21 mirtazapine 30 mg tablet 30 mg PO HS 05/31/21 08/20/21 gabapentin 800 mg tablet 800 mg PO QID 06/02/21 08/20/21 methadone 10 mg/mL oral concentrate 125 mg PO DAILY 06/02/21 08/20/21 Acetaminophen [Tylenol] 650 mg PO Q4H PRN PRN ##0 06/05/21 08/20/21 methylphenidate HCl 10 mg tablet 10 mg PO TID 08/20/21 08/20/21 olanzapine 5 mg tablet 1 tab PO HS 08/20/21 08/20/21 olanzapine 5 mg tablet 5 mg PO TID PRN PRN Agitation 08/20/21 08/20/21 Previous Rx's Medication Instructions Recorded Acetaminophen [Tylenol] 650 mg PO Q4H PRN PRN ##0 06/05/21 Allergies Allergy/AdvReac Type Severity Reaction Status Date / Time bupropion HCl AdvReac Intermediate Contraindic Unverified 08/20/21 01:11 [From Wellbutrin SR] ated General Stated Complaint: Orthopedic CELESTE: 4 Review of Systems Narrative: Constitutional negative for fever chills negative for malaise and fatigue HEENT negative Cardiovascular no palpitations no chest pain Pulmonary no shortness of breath no cough GI no abdominal pain no nausea vomiting MSK see HPI No rashes Neuro no headaches Hematological no blood thinners PFSH All Active Problems (Updated 10/13/21 @ 15:09 by Yair Leung MD) Leg pain (Acute) Cellulitis of left hand (Acute) Foreign body in foot, left (Acute) Localized swelling of left lower extremity (Acute) Cellulitis of hand, right (Acute) Cellulitis (Acute) Throat pain in adult (Acute) (Acute) Smoker (Acute) Viral illness (Acute) Dehydration (Acute) ADHD, hyperactive-impulsive type (Chronic 05/14/16) Subacute endocarditis (Acute 01/22/16) MSSA endocarditis January, Cardiomyopathy (Chronic 01/22/16) Pleural effusion, bilateral (Acute 01/22/16) History of prior with IUGR (Acute 01/11/15) History of kidney injury (Acute 01/17/16) Acute January, History of drug abuse (Acute 01/17/16) In IP treatment at [facility], no longer on methadone as of 01/17/16. Family court is close to resolved - will end . She is expecting 1st daughter to come home. Depression (Acute 01/11/15) Chronic hepatitis C without hepatic coma (Chronic 01/11/15) Bacterial vaginosis (Acute 05/24/13) Rx with Metronidazole cream given 04/19/15. Anemia of chronic disease (Acute 01/17/16) Insomnia (Acute) Discharge planning issues (Acute) DVT prophylaxis (Acute) Fever (Acute) Prepatellar bursitis of right knee (Acute) Edema (Acute) Mitral regurgitation (Chronic) Opioid dependence (Chronic) Anemia (Chronic) Anxiety (Chronic) Medical History ADHD Alcohol abuse Amputation of right foot COVID-19 virus infection Depression difficulty bonding with 2nd child. child removed from her custody. was on Wellbutrin but had sz and not on meds at this time. has appt with counselor 03/2015 Effusion, right knee Herpes, vulvar History of depression HSV infection Hx of infant who one week after . ? HSV or H1N1 infection. Pt has been on prophylaxis with pregnancies. Hx of cocaine abuse Paresthesia of both hands Personality disorder examination or test, positive result PTSD (post-traumatic stress disorder) Surgical History Amputation 12/23/16;[facility]; RIGHT BELOW THE KNEE section (11/24/12) PCD @ 35w. IUGR. NRFH. [id number]. [facility] [place]. Pt arrived in labor and declined SUN. Chad Lopez. Family History Mother No problems noted. Father No problems noted. Brother No problems noted. Grandfather No problems noted. Grandfather No problems noted. Grandmother No problems noted. Grandmother No problems noted. Son No problems noted. Son No problems noted. Daughter No problems noted. Daughter No problems noted. Social History Smoking/Tobacco Use Status: Current every day Tobacco Type: cigarettes Smoking risk assessment performed?: Yes Alcohol Intake: former Drug use: Occasionally Substance use type: former substance user, marijuana, crack/cocaine and heroin Do you feel safe at home: Yes Do you feel safe in your relationship?: Yes Additional Social history: pt states she is on methadone History History 4 Para 4 Hx # Term Pregnancies Multiple births Hx # Pregnancies Ectopic pregnancies AB induced Hx Number of Living Children 3 AB spontaneous Past Pregnancies Del. Date GA/Weeks # Preg Succ Route Wgt Sex Labor Lgth Anesthesia Location [facility] 12/28/20 25 Delivery Date: 12/28/20 Last Updated by: Roxanna Rocha LPN Patient transferred OB care to [facility] Exam Narrative Exam Narrative: Awake alert [place] x3 in mild discomfort. We will watch her in the waiting room. Normocephalic atraumatic PERRLA EOMI MMM anicteric Normal work of breathing. Cardiovascular normal cap refill Right leg. Stump site appears to have mild erythema. No break in the skin. Inspection no significant swelling Skin no rashes Neuro grossly intact Course Vital Signs Vital signs: Vital Signs Pulse 68 10/13/21 14:19 Respiratory Rate 18 10/13/21 14:19 Pulse Oximetry 98 10/13/21 14:19 Temperature Source Temporal Artery Scan 10/13/21 14:19 Pulse 68 10/13/21 14:19 Respiratory Rate 18 10/13/21 14:19 Respiratory Effort Non-Labored 10/13/21 14:26 Blood Pressure Position Supine 10/13/21 14:19 Pulse Oximetry 98 10/13/21 14:19 Oxygen Delivery Method Room Air 10/13/21 14:19 Oxygen Flow Rate 0 10/13/21 14:19 Pain Level 8 10/13/21 14:19
--- NOTE | 2021-10-13 15:08 | DI.VRAD_ITS ---
PROCEDURE INFORMATION: Exam: XR Left Knee Exam date and time: 10/13/2021 2:49 PM Age: 36 years old Clinical indication: Pain; Knee; Right TECHNIQUE: Imaging protocol: Radiologic exam of the Left knee. Views: 4 or more views. COMPARISON: No relevant prior studies available. FINDINGS: Bones/joints: Below the knee amputation. No acute fracture or dislocation. Soft tissues: Suspected prepatellar soft tissue edema, clinical correlation recommended. IMPRESSION: Suspected prepatellar soft tissue edema, clinical correlation recommended. Dictated and Authenticated by: Beth Christopher MD. Ordering:RICKIE Mazariegos MD
[2021-10-13] MEDS: Ketorolac 30 MG/ML VIAL IM (15:51)
== END 2021-10-13 15:51 | disposition home or self-care (01) ==
PROVIDERS: Emergency Provider Emergency Medicine; PCP Nurse Practitioner Family
DX: M79.604 Pain in right leg (principal); G89.11 Acute pain due to trauma; F17.210 Nicotine dependence, cigarettes, uncomplicated; Z96.651 Presence of right artificial knee joint; W18.40XA Slipping, tripping and stumbling without falling, unspecified, initial encounter; Y93.11 Activity, swimming; Y92.34 Swimming pool (public) as the place of occurrence of the external cause
CPT/HCPCS: 96372; 99284; 73564; J1885

== ENCOUNTER 2021-10-14 02:19 | Emergency (ER) | payer MEDICAID, SELFPAY ==
--- NOTE | 2021-10-14 02:15 | DI.RAD_ITS ---
Exam(s) XR TIB/FIB RT EXAM: XR TIB/FIB RT CLINICAL HISTORY: h/o bka, r/o foreign body, fx. TECHNIQUE: 2D digital imaging was performed. COMPARISON: No exams were available for comparison FINDINGS: 3 views There is below-knee amputation with no evidence of fracture and no radiographic evidence of osteomyel itis. There is some soft tissue thickening over the stump but no gas and no obvious skin ulcer evide nt. No radiographic evidence of osteomyelitis. No radiopaque foreign body evident. IMPRESSION: DATA REPOSITORY: RADIATION DOSE DELIVERED:
[2021-10-14 02:23] VITALS: BP 144/83; PULSE 64; RESP 18; TEMP 36.6; O2SAT 99
[2021-10-14] MEDS: Acetaminophen 500 MG TAB 1000 MG PO (03:00)
--- NOTE | 2021-10-14 03:35 | ED.GENADUL_ITS ---
Discharge Plan Disposition Patient Disposition: HOME Condition: Stable Discharge Details Clinical Impression: Contusion of leg, right, Hx of right BKA Primary Care Provider: Ivonne Hampton ED Provider: Marizol Forrest Home Meds and New Rx's Prescriptions: New cephalexin 500 mg capsule 500 mg PO QID 7 Days Qty: 28 0RF Continued naloxone [Narcan] 4 mg/actuation spray,non-aerosol 4 mg intranasal Q2M PRN Rx Instructions: spray 1 dose into ONE nostril; alternate nostrils w each dose until help arrives gabapentin 800 mg tablet 800 mg PO QID Label Comments: TAKE ONE TABLET BY MOUTH FOUR TIMES A DAY methadone 10 mg/mL Concentrate 125 mg PO DAILY Rx Instructions: CONFIRMED DOSE WITH [facility]ART 08/20/21 125MG QAM Acetaminophen [Tylenol] 650 mg PO Q4H PRN PRNQty: 0 0RF olanzapine 5 mg tablet 5 mg PO TID PRN PRN (Reason: Agitation) Label Comments: TAKE ONE TABLET BY MOUTH EVERY EVENING AND EVERY 8 HOURS FOR AGITATION olanzapine 5 mg tablet 1 tab PO HS Label Comments: TAKE ONE TABLET BY MOUTH EVERY EVENING AND EVERY 8 HOURS FOR AGITATION methylphenidate HCl 10 mg tablet 10 mg PO TID Rx Instructions: take with 20 mg cap for 30 mg tid methylphenidate HCl 20 mg tablet 20 mg PO TID Label Comments: TAKE 1 TABLET BY MOUTH THREE TIMES DAILY. MAY FILL WHEN FOCALIN DUE Rx Instructions: Dexmethylphenidate ER 30mg QAM, Methylphenidate IR 20mg TID mirtazapine 30 mg tablet 30 mg PO HS Label Comments: TAKE 1 TABLET BY MOUTH AT BEDTIME Discharge Instructions Instructions: Contusion in Adults (ED) Additional Instructions: Your x-ray today shows no evidence of fracture. Your lab work is reassuring and shows no significant concerning findings for infection. Due to your history of right foot infection, a prescription for antibiotics has been sent electronically to your pharmacy to start if you notice worsening right leg pain, redness, or swelling. Follow-up with your primary care doctor in 1 week. Return to the emergency department with any worsening or new concerning symptoms. 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 Her vitals are within normal limits. She has very minimal erythema noted to the right leg stump. There is no induration or fluctuance. She was referred for tib-fib x-ray which was unremarkable. Due to her history of osteomyelitis, screening labs were obtained which were reassuring. She has a normal white blood cell count with a CRP minimally elevated at 1.11. We will send a pr escription for oral antibiotics to her pharmacy if her redness does not improve or worsens. She is advised to return here immediately if she develops any fever, significant increase in pain, redness or swelling or any other concerns. Medical Records Medical records reviewed: Yes I reviewed the patient's medical records. Imaging Data Radiologic Study: Radiologist's impression: XR right Tibia and Fibula Exam date and time: 10/14/2021 3:10 AM Age: 36 years old Clinical indication: Pain; Lower leg; right; Prior surgery; Surgery date: 6+ months; Surgery type: Bka; Patient HX: FX, R/O fb TECHNIQUE: Imaging protocol: Radiologic exam of the right tibia and fibula. Views: 2 views. COMPARISON: CR XR FOOT LT LIMITED 12/05/2020 9:20 AM FINDINGS: Bones/joints: Status post BKA with sharp surgical margins. No acute fracture.? Films miss labeled left, studies of the right lower extremity Soft tissues: Normal. IMPRESSION: No acute finding. HPI General Mode of arrival: ambulatory . Date/Time Provider Initiated Documentation: 10/14/21 02:19 . Limitations to Documentation: no limitations . Information obtained by: patient . HPI Narrative: Patient is a 34-year-old female with a former history of IV drug abuse with history of right leg BKA who presents with pain at the stump after falling on her leg today. Patient states she was walking when she tripped and hit her right stump on the cement ground. She was seen here earlier today and had x- rays of her right knee and stump which were unremarkable but presents with per sistent pain. Related Data Home Medications Medication Instructions Recorded Confirmed naloxone 4 mg/actuation nasal 4 mg intranasal Q2M PRN 05/29/20 10/14/21 spray (Narcan) methylphenidate HCl 20 mg tablet 20 mg PO TID 05/31/21 10/14/21 mirtazapine 30 mg tablet 30 mg PO HS 05/31/21 10/14/21 gabapentin 800 mg tablet 800 mg PO QID 06/02/21 10/14/21 methadone 10 mg/mL oral concentrate 125 mg PO DAILY 06/02/21 10/14/21 Acetaminophen [Tylenol] 650 mg PO Q4H PRN PRN ##0 06/05/21 08/20/21 methylphenidate HCl 10 mg tablet 10 mg PO TID 08/20/21 10/14/21 olanzapine 5 mg tablet 1 tab PO HS 08/20/21 10/14/21 olanzapine 5 mg tablet 5 mg PO TID PRN PRN Agitation 08/20/21 10/14/21 cephalexin 500 mg capsule 500 mg PO QID 7 days #28 caps 10/14/21 Previous Rx's Medication Instructions Recorded Acetaminophen [Tylenol] 650 mg PO Q4H PRN PRN ##0 06/05/21 cephalexin 500 mg capsule 500 mg PO QID 7 days #28 caps 10/14/21 Allergies Allergy/AdvReac Type Severity Reaction Status Date / Time bupropion HCl AdvReac Intermediate Contraindic Unverified 08/20/21 01:11 [From Wellbutrin SR] ated General Stated Complaint: Orthopedic CELESTE: 4 Review of Systems All systems reviewed & are unremarkable except as noted in HPI and below Constitutional Constitutional: Reports as per HPI, Denies chills and Denies fever(s) Eyes Eyes: Denies blurry vision ENT Ears, Nose, Mouth, and Throat: Denies dizziness, Denies sore throat and Denies throat swelling Cardiovascular Cardiovascular: Denies chest pain and Denies dyspnea Respiratory Respiratory: Denies cough and Denies dyspnea Gastrointestinal Gastrointestinal: Denies abdominal pain, Denies diarrhea and Denies vomiting Genitourinary Genitourinary: Denies hematuria and Denies dysuria Musculoskeletal Musculoskeletal: Denies back pain and Denies numbness Integumentary/Breasts Skin/Breast: Denies lesions and Denies rash Comments: L leg pain Neurologic Neurologic: Denies dizziness, Denies localized weakness and Denies numbness Allergic/Immunologic Allergic/Immunologic: Denies throat swelling PFSH All Active Problems (Updated 10/14/21 @ 05:08 by Marizol Forrest DO) Leg pain (Acute) Contusion of leg, right (Acute) Hx of right BKA (Acute) Cellulitis of left hand (Acute) Foreign body in foot, left (Acute) Localized swelling of left lower extremity (Acute) Cellulitis of hand, right (Acute) Cellulitis (Acute) Throat pain in adult (Acute) (Acute) Smoker (Acute) Viral illness (Acute) Dehydration (Acute) ADHD, hyperactive-impulsive type (Chronic 05/14/16) Subacute endocarditis (Acute 01/22/16) MSSA endocarditis January, Cardiomyopathy (Chronic 01/22/16) Pleural effusion, bilateral (Acute 01/22/16) History of prior with IUGR (Acute 01/11/15) History of kidney injury (Acute 01/17/16) Acute January, History of drug abuse (Acute 01/17/16) In IP treatment at [place], no longer on methadone as of 01/17/16. Family court is close to resolved - will end . She is expecting 1st daughter to come home. Depression (Acute 01/11/15) Chronic hepatitis C without hepatic coma (Chronic 01/11/15) Bacterial vaginosis (Acute 05/24/13) Rx with Metronidazole cream given 04/19/15. Anemia of chronic disease (Acute 01/17/16) Insomnia (Acute) Discharge planning issues (Acute) DVT prophylaxis (Acute) Fever (Acute) Prepatellar bursitis of right knee (Acute) Edema (Acute) Mitral regurgitation (Chronic) Opioid dependence (Chronic) Anemia (Chronic) Anxiety (Chronic) Medical History ADHD Alcohol abuse Amputation of right foot COVID-19 virus infection Depression difficulty bonding with 2nd child. child removed from her custody. was on Wellbutrin but had sz and not on meds at this time. has appt with counselor 03/2015 Effusion, right knee Herpes, vulvar History of depression HSV infection Hx of who one week after . ? HSV or H1N1 infection. Pt has been on prophylaxis with pregnancies. Hx of cocaine abuse Paresthesia of both hands Personality disorder examination or test, positive result PTSD (post-traumatic stress disorder) Surgical History Amputation 12/23/16;[facility]; RIGHT BELOW THE KNEE section (11/24/12) PCD @ 34w. IUGR. NRFH. [id number]. [facility]. 03/26/15 RCD. Pt arrived in labor and declined SUN. Chad Lopez. Family History Mother No problems noted. Father No problems noted. Brother No problems noted. Grandfather No problems noted. Grandfather No problems noted. Grandmother No problems noted. Grandmother No problems noted. Son No problems noted. Son No problems noted. Daughter No problems noted. Daughter No problems noted. Social History Smoking/Tobacco Use Status: Current every day Tobacco Type: cigarettes Smoking risk assessment performed?: Yes Alcohol Intake: former Drug use: Occasionally Substance use type: former substance user, marijuana, crack/cocaine and heroin Do you feel safe at home: Yes Do you feel safe in your relationship?: Yes Additional Social history: pt states she is on methadone History History 4 Para 4 Hx # Term Pregnancies Multiple births Hx # Pregnancies Ectopic pregnancies AB induced Hx Number of Living Children 3 AB spontaneous Past Pregnancies Del. Date GA/Weeks # Preg Succ Route Wgt Sex Labor Lgth Anesth esia Location [facility] 12/28/20 25 Delivery Date: 12/28/20 Last Updated by: Roxanna Rocha LPN Patient transferred OB care to [facility] Exam Const General: cooperative and no acute distress Orientation: alert, awake and oriented x3 HENMT Head: normal to inspection Mouth: oral mucosae normal Eyes General: appearance normal, both eyes and all related structures Neck Neck: normal visual inspection Resp Effort & Inspection: normal respiratory effort and able to speak in complete sentences Cardio Rate: regular rate Skin General skin exam: no rashes or lesions noted Neuro General: patient alert, patient awake and patient oriented x3 Motor: muscle tone normal throughout Extrem Ankle/foot/toe images: 1. There is mild edema and erythema of distal end of stump. There is moderate tenderness to distal end of stump. No crepitus, induration, fluctuance, rash or lesions. There is no erythema or significant pain with ROM of Right knee. Psych Appearance: grossly normal Affect: normal affect Course Vital Signs Vital signs: Vital Signs Temperature 97.9 F 08/08/22 02:23 Pulse 64 10/14/21 02:23 Respiratory Rate 18 10/14/21 02:23 Blood Pressure 144/83 H 10/14/21 02:23 Pulse Oximetry 99 10/14/21 02:23 Temperature 97.9 F 10/14/21 02:23 Pulse 64 10/14/21 02:23 Respiratory Rate 18 10/14/21 02:23 Respiratory Effort Non-Labored 10/14/21 02:31 Blood Pressure 144/83 H 10/14/21 02:23 Pulse Oximetry 99 10/14/21 02:23 Pain Level 10 10/14/21 03:00
--- NOTE | 2021-10-14 03:38 | DI.VRAD_ITS ---
PROCEDURE INFORMATION: Exam: XR right Tibia and Fibula Exam date and time: 10/14/2021 3:10 AM Age: 36 years old Clinical indication: Pain; Lower leg; right; Prior surgery; Surgery date: 6+ months; Surgery type: Bka; Patient HX: FX, R/O fb TECHNIQUE: Imaging protocol: Radiologic exam of the right tibia and fibula. Views: 2 views. COMPARISON: CR XR FOOT LT LIMITED 12/05/2020 9:20 AM FINDINGS: Bones/joints: Status post BKA with sharp surgical margins. No acute fracture. Films miss labeled left, studies of the right lower extremity Soft tissues: Normal. IMPRESSION: No acute finding. Dictated and Authenticated by: Tim Lopez MD. Ordering:CRISTAL Fontana MD
[2021-10-14] MEDS: Ketorolac 60 MG/2 ML VIAL IM (04:17)
[2021-10-14 04:47] LABS: Abs Immature Grans 0.02 10^3/uL (0.0-0.06); Absolute Basophil Count 0.03 10^3/uL (0.0-0.2); Absolute Eosinophil Count 0.22 10^3/uL (0.0-0.7); Absolute Lymphocyte Count 1.77 10^3/uL (1.2-3.4); Absolute Monocyte Count 0.46 10^3/uL (0.1-0.8); Absolute Neutrophil Count 4.35 10^3/uL (1.2-6.7); Basophils % 0.4; Eosinophils % 3.2; HCT 34.4 % (36.0-46.0); HGB 10.8 g/dL (11.2-15.7); Immature Grans % 0.3; Lymphocytes % 25.8; MCH 26.7 pg (27.0-33.0); MCHC 31.4 % (32.0-36.0); MCV 85 fL (80-95); MPV 9.6 fL (8.0-11.0); Monocytes % 6.7; Neutrophils % 63.6; Platelet Count 273 10^3/uL (130-400); RBC 4.05 10^6/uL (3.93-5.22); RDW 16.4 % (11.7-14.6); RDW-SD 51.2 fL; WBC 6.85 10^3/uL (4.4-10.8)
[2021-10-14 05:04] LABS: ALT 36 U/L (14-59); AST 23 U/L (15-37); Albumin 3.3 g/dL (3.4-5.0); Alkaline Phosphatase 116 U/L (46-116); Anion Gap 3.6 mmol/L (3-11); BUN 16 mg/dL (7-18); Bilirubin, Total 0.2 mg/dL (0.2-1.0); C-Reactive Protein 1.11 mg/dL (0.0-0.3); CO2 30.4 mmol/L (21.0-32.0); CREATININE 0.9 mg/dL (0.55-1.02); Calcium 8.4 mg/dL (8.5-10.1); Chloride 105 mmol/L (98-107); Glucose 127 mg/dL (74-106); Potassium 4.5 mmol/L (3.5-5.1); Sodium 139 mmol/L (136-145); Total Protein 7.1 g/dL (6.4-8.2)
[2021-10-14 05:21] VITALS: BP 129/84; PULSE 62; RESP 16; O2SAT 98
--- NOTE | 2021-10-16 08:06 | NUR.NOTE ---
Nursing Note: Patient called spoke with Francesca Pastor and was asking to have the prescription sent to [facility] in [facility]. It was transmitted to [facility]. With Dr Lakia Florian permission I called in the prescription to [facility].
== END 2021-10-14 05:23 | disposition home or self-care (01) ==
PROVIDERS: Emergency Provider Physician Assistant; PCP Nurse Practitioner Family
DX: S80.11XA Contusion of right lower leg, initial encounter (principal); R79.82 Elevated C-reactive protein (CRP); F17.210 Nicotine dependence, cigarettes, uncomplicated; Z32.02 Encounter for pregnancy test, result negative; Z89.511 Acquired absence of right leg below knee; W01.198A Fall on same level from slipping, tripping and stumbling with subsequent striking against other object, initial encounter
CPT/HCPCS: 36415; 80053; 81025; 96372; 99284; 73590; 85025; 86140; J1885

== ENCOUNTER 2021-11-27 10:18 | Inpatient (IN) | payer MEDICAID, SELFPAY ==
[2021-11-27] VITALS (7 sets, daily range): BP systolic 107–131; BP diastolic 45–81; PULSE 88–104; RESP 18–24; TEMP 36.1–39.8; O2SAT 95–99
--- NOTE | 2021-11-27 12:00 | DI.RAD_ITS ---
Exam(s) XR THORACIC SPINE COMPLETE EXAM: XR THORACIC SPINE COMPLETE CLINICAL HISTORY: pain. TECHNIQUE: 2D digital imaging was performed. COMPARISON: CR,XR XR LINE PLACEMENT PICC/CVA from 06/01/2021 FINDINGS: Two views Mild compression fracture at superior endplate of T12, not new. This was evident on CT scan July 2021. There is also more prominent compression fracture of L1 again noted. IMPRESSION: As above. Please also note that there appear to be patchy infiltrates in the lung valdivia. DATA REPOSITORY: RADIATION DOSE DELIVERED:
--- NOTE | 2021-11-27 12:00 | DI.RAD_ITS ---
Exam(s) XR LUMBAR SPINE AP, LAT EXAM: XR LUMBAR SPINE AP, LAT CLINICAL HISTORY: pain. TECHNIQUE: 2D digital imaging was performed. COMPARISON: No exams were available for comparison FINDINGS: 3 views Compression fractures of T12 and L1 appear similar to the CT scan of July 2021. No additional fractur es identified. No disc space narrowing. No listhesis. No radiographic evidence of osteomyelitis. IMPRESSION: DATA REPOSITORY: RADIATION DOSE DELIVERED:
--- NOTE | 2021-11-27 12:07 | DI.RAD_ITS ---
Exam(s) XR CHEST 1V IN DI DEPT EXAM: XR CHEST 1V IN DI DEPT CLINICAL HISTORY: cough. TECHNIQUE: 2D digital imaging was performed. COMPARISON: CR,XR XR LINE PLACEMENT PICC/CVA from 06/01/2021 FINDINGS: Single AP portable view. Heart size is upper normal. The mediastinum is not widened. There are patchy infiltrates throughout both lung valdivia. No pleural effusions. IMPRESSION: There are patchy nodular infiltrates throughout both lungs. These were not present on 06/01/2021. T here are no pleural effusions. Discussed with ER physician DATA REPOSITORY: RADIATION DOSE DELIVERED:
--- NOTE | 2021-11-27 12:15 | DI.RAD_ITS ---
Exam(s) XR TIB/FIB RT EXAM: XR TIB/FIB RT CLINICAL HISTORY: pain, xray stump. TECHNIQUE: 2D digital imaging was performed. COMPARISON: CR,XR XR TIB/FIB RT from 10/14/2021 FINDINGS: Two views: Again noted is below-knee amputation. Amputation lines are sharp. No radiographic evidence of osteo myelitis. No gas in the soft tissues. IMPRESSION: DATA REPOSITORY: RADIATION DOSE DELIVERED:
--- NOTE | 2021-11-27 12:15 | RT.EKG_ITS ---
APPROVED REPORT Exam: Resting ECG Reason for Exam: CP/SOB Patient Location: E HR:99 bpm ECG Measurements Heart Rate 99 AXIS MN 131 P 82 QRSd 90 QRS 76 QT 340 T 59 QTc 437 Conclusion Sinus rhythm...normal P axis, V-rate 60- 99
[2021-11-27 13:18] LABS: COVID-19 PCR Negative (Negative); Influenza A PCR Negative (Negative); Influenza B PCR Negative (Negative); RSV PCR Negative (Negative)
[2021-11-27 13:24] LABS: Source Nasopharynx
[2021-11-27] MEDS: Lactated Ringers 1,000 ML 1000 ML IV (13:52)
[2021-11-27] MEDS: LORazepam 20 MG/10 ML VIAL IVP (13:54)
[2021-11-27] MEDS: Ketorolac 15 MG/ML VIAL IVP (13:56)
[2021-11-27 14:04] LABS: Lactate 1.6 mmol/L (0.6-1.4)
[2021-11-27 14:05] LABS: HCT 27.1 % (36.0-46.0); MCH 26.9 pg (27.0-33.0); MCHC 33.2 % (32.0-36.0); MCV 81 fL (80-95); MPV 9.9 fL (8.0-11.0); Platelet Count 204 10^3/uL (130-400); RBC 3.35 10^6/uL (3.93-5.22); RDW 16.8 % (11.7-14.6); RDW-SD 49.8 fL
[2021-11-27 14:17] LABS: Absolute Eosinophil Count 0.06 10^3/uL (0.0-0.7); Absolute Monocyte Count 0.24 10^3/uL (0.1-0.8); Bands % 3; Diff Comment Manual Differential; RBC Morphology Normal
[2021-11-27 14:27] LABS: ALT 32 U/L (14-59); AST 13 U/L (15-37); Albumin 2.7 g/dL (3.4-5.0); Alkaline Phosphatase 129 U/L (46-116); Anion Gap 6.7 mmol/L (3-11); BUN 11 mg/dL (7-18); Bilirubin, Total 0.4 mg/dL (0.2-1.0); CO2 28.3 mmol/L (21.0-32.0); CREATININE 0.9 mg/dL (0.55-1.02); Calcium 8.3 mg/dL (8.5-10.1); Chloride 92 mmol/L (98-107); Estimated GFR 84.44 (mL/min/1.73m2); Glucose 80 mg/dL (74-106); Potassium 4.5 mmol/L (3.5-5.1); Sodium 127 mmol/L (136-145); Total Protein 7.3 g/dL (6.4-8.2); Troponin I < 50 ng/L (<or=60)
[2021-11-27 14:45] LABS: Bilirubin Negative (Negative); Blood Trace-intact (Negative); Clarity Sl Cloudy (Clear); Glucose Negative (Negative); Ketones Negative (Negative); Leukocyte Esterase Negative (Negative); Nitrite Negative (Negative); Urobilinogen 0.2 EU/dL (Up TO 0.2); pH 7.5 (5-8)
[2021-11-27 14:51] LABS: Bacteria Moderate HPF (Negative); C & S Indicated? Yes; Casts Negative LPF (Negative); Crystals Few Amorphous HPF (Negative); Epithelial Cells Rare HPF (Negative); Mucus Negative (Negative); RBC 0-2 HPF (0-2); WBC Negative HPF (0-5)
[2021-11-27 15:20] LABS: *AMPHETAMINES SCREEN URINE Negative (Negative); *BARBITURATES SCREEN URINE Negative (Negative); *BENZODIAZEPINES SCREEN URINE Negative (Negative); Cannabinoids THC Negative (Negative); Cocaine Screen,Urine Negative (Negative); METHADONE URINE SCREEN Positive (Negative); OPIATES URINE SCREEN Negative (Negative); Tricyclic Antidepressants Negative (Negative)
[2021-11-27] MEDS: Ketamine 500 MG/10 ML VIAL 9 MG IVP (15:20)
[2021-11-27] MEDS: Midazolam 2 MG/2 ML VIAL IVP (15:20)
--- NOTE | 2021-11-27 15:45 | DI.MRI_ITS ---
Exam(s) MR LUMBAR SPINE WO/W EXAM: MR LUMBAR SPINE WO/W CLINICAL HISTORY: pain, fever. TECHNIQUE: Multiplanar multisequence MRI of the Lumbar spine was performed. COMPARISON: CT CT THORACIC LUMBAR SPINE REC from 07/13/2021 CR XR THORACIC SPINE COMPLETE from 11/27/2021 CR XR LUMBAR SPINE AP, LAT from 11/27/2021 FINDINGS: Quality of this study is severely limited by abundant motion artifact making interpretation very diff icult Bones:Compression fractures of T12 and L1 noted although these findings were evident on CT scan of . Mild residual bone edema at levels. No obvious abnormality in the L2 and below lumbar vert ebrae. With respect to the individual disc levels... These cannot be accurately assessed because of the danna unt of motion artifact here. IMPRESSION: 1. Fractures T12-L1 which were previously present on CT scan of 07/13/2021. There is no gross compro mise of the spinal canal at these levels, realizing the severe limitations the study due to the signi ficant amount of motion DATA REPOSITORY:
--- NOTE | 2021-11-27 16:45 | DI.MRI_ITS ---
Exam(s) MR THORACIC SPINE WO/W EXAM: MR THORACIC SPINE WO/W CLINICAL HISTORY: pain low thoracic , fever TECHNIQUE: Multiplanar multisequence MRI of the thoracic spine was performed without and with intrav enous contrast. Contrast injected was 12 mL Dotarem. COMPARISON: CT CT THORACIC LUMBAR SPINE REC from 07/13/2021 MR MR LUMBAR SPINE WO/W from 11/27/2021 FINDINGS: OSSEOUS: There are no acute appearing thoracic vertebral fractures. Mild loss of height of superior e ndplate of T12 noted which is not a new finding. Please note that L1 vertebral body is fractured but out of the field of view here. This is better seen on the lumbar spine study but is nevertheless no t an acute finding and was evident on prior CT scan. There is no compromise of the spinal canal at T 12 level. SIGNIFICANT INDIVIDUAL LEVEL FINDINGS: Suboptimal study due to abundant motion artifact making accurate interpretation not possible. IMPRESSION: 1. Limited study due to the amount of motion artifact, particularly in the axial images. 2. However, there are fractures of T12 and L1, mild at L2-12 superior endplate level and not new. Mo re prominent at L1 level which is beyond the field of view of this study and seen on the lumbar spine MRI. Both of these findings are not new 3. Difficult to determine if there abnormal enhancing structures on the axial images but none on the sagittal sequences. Discussed by myself with the ER physician. DATA REPOSITORY:
--- NOTE | 2021-11-27 17:29 | ED.GENADUL_ITS ---
Discharge Plan Disposition Patient Disposition: [facility] INPATIENT Condition: Serious Discharge Details Chief Complaint: GenMedical Clinical Impression: Pneumonia, Anemia, Hyponatremia Primary Care Provider: Ivonne Hampton ED Provider: Ole Florian Home Meds and New Rx's Prescriptions: No Action naloxone [Narcan] 4 mg/actuation spray,non-aerosol 4 mg intranasal Q2M PRN Rx Instructions: spray 1 dose into ONE nostril; alternate nostrils w each dose until help arrives gabapentin 800 mg tablet 800 mg PO QID Label Comments: TAKE ONE TABLET BY MOUTH FOUR TIMES A DAY methadone 10 mg/mL Concentrate 125 mg PO DAILY Rx Instructions: CONFIRMED DOSE WITH BAART 08/20/21 125MG QAM Acetaminophen [Tylenol] 650 mg PO Q4H PRN PRNQty: 0 0RF olanzapine 5 mg tablet 5 mg PO TID PRN PRN (Reason: Agitation) Label Comments: TAKE ONE TABLET BY MOUTH EVERY EVENING AND EVERY 8 HOURS FOR AGITATION olanzapine 5 mg tablet 1 tab PO HS Label Comments: TAKE ONE TABLET BY MOUTH EVERY EVENING AND EVERY 8 HOURS FOR AGITATION methylphenidate HCl 10 mg tablet 10 mg PO TID Rx Instructions: take with 20 mg cap for 30 mg tid methylphenidate HCl 20 mg tablet 20 mg PO TID Label Comments: TAKE 1 TABLET BY MOUTH THREE TIMES DAILY. MAY FILL WHEN FOCALIN DUE Rx Instructions: Dexmethylphenidate ER 30mg QAM, Methylphenidate IR 20mg TID mirtazapine 30 mg tablet 30 mg PO HS Label Comments: TAKE 1 TABLET BY MOUTH AT BEDTIME Medical Decision Making 1800 --36-year-old female with multiple medical problems including history of IV drug use, osteomyelitis of the right lower extremity now status post partial amputation, here with multiple complaints including generally not feeling well, fever with cough and severe low back pain. Patient is saturating well and in no respiratory distress. She does have rales bilaterally. EKG was reviewed and interpreted by me: Sinus rhythm 99 bpm, normal axis, nondiagnostic. Patient given IV fluid bolus and Toradol IV. Considered osteomyelitis and epidural spinal abscess given degree of back pain. MRI of the thoracic and lumbar spine were obtained. I spoke with Dr. Olivares who interpreted MRI and notes significant artifact due to motion but no acute infection present, chronic fracture is present and unchanged from prior CT. X-ray of right lower extremity stump was reviewed and interpreted by radiology: No osteomyelitis. Chest x-ray was reviewed and interpreted by radiology: Bilateral pulmonary infiltrates concerning for pneumonia. Labs reviewed and no leukocytosis. Lactate is mildly elevated. Blood patient is anemic. Plan to obtain additional blood cultures. I do not appreciate a murmur on exam but consider endocarditis -patient does have a history of this in the past. Plan to initiate treatment with vancomycin and add cefepime. Plan to admit for further work-up and treatment. Lab Data Lab results reviewed: Yes I reviewed the patient's lab results. Labs: 11/27/21 14:28 Urine - Reflex from Ua Urine Culture - Pending 11/27/21 13:50 Blood Blood Culture - Pending 11/27/21 12:07 Blood Blood Culture - Pending Laboratory Tests Range/Units 11/27/21 11/27/21 11/27/21 12:12 12:20 13:50 WBC (4.4-10.8) 10^3/uL RBC (3.93-5.22) 10^6/uL Hgb (11.2-15.7) g/dL Hct (36.0-46.0) % MCV (80-95) fL MCH (27.0-33.0) pg MCHC (32.0-36.0) % RDW (11.7-14.6) % Plt Count (130-400) 10^3/uL MPV (8.0-11.0) fL Immature Gran % Neutrophils % Band Neutrophils % Lymphocytes % Monocytes % Eosinophils % Basophils % Nucleated RBC % (0.0-0.3) % Absolute Neutrophils (1.2-6.7) 10^3/uL Absolute Lymphocytes (1.2-3.4) 10^3/uL Absolute Monocytes (0.1-0.8) 10^3/uL Absolute Eosinophils (0.0-0.7) 10^3/uL Absolute Basophils (0.0-0.2) 10^3/uL RBC Morphology VBG Lactate (0.6-1.4) mmol/L Sodium (136-145) mmol/L 127 L Potassium (3.5-5.1) mmol/L 4.5 Chloride (98-107) mmol/L 92 L Carbon Dioxide (21.0-32.0) mmol/L 28.3 Anion Gap (3-11) mmol/L 6.7 BUN (7-18) mg/dL 11 Creatinine (0.55-1.02) mg/dL 0.9 Est GFR (CKD-EPI 2020) (mL/min/1.73m2) 84.44 Glucose (74-106) mg/dL 80 Calcium (8.5-10.1) mg/dL 8.3 L Total Bilirubin (0.2-1.0) mg/dL 0.4 AST (15-37) U/L 13 L ALT (14-59) U/L 32 Alkaline Phosphatase (46-116) U/L 129 H Troponin I (<or=60) ng/L < 50 Total Protein (6.4-8.2) g/dL 7.3 Albumin (3.4-5.0) g/dL 2.7 L Urine Color (Yellow) Urine Clarity (Clear) Urine pH (5-8) Ur Specific Mystic (1.005-1.025) Urine Protein (Negative) mg/dL Urine Ketones (Negative) mg/dL Urine Blood (Negative) Urine Nitrite (Negative) Urine Bilirubin (Negative) Urine Urobilinogen (Up TO 0.2) EU/dL Ur Leukocyte Esterase (Negative) Urine RBC (0-2) HPF Urine WBC (0-5) HPF Ur Epithelial Cells (Negative) HPF Urine Crystals (Negative) HPF Urine Bacteria (Negative) HPF Urine Casts (Negative) LPF Urine Mucus (Negative) Ur Culture Indicated? Urine Glucose (Negative) mg/dL Urine Opiates Screen (Negative) Urine Methadone Screen (Negative) Ur Barbiturates Screen (Negative) Ur Tricyclics Screen (Negative) Ur Amphetamines Screen (Negative) U Benzodiazepines Scrn (Negative) Urine Cocaine Screen (Negative) Ur THC Screen (Negative) COVID-19 Source Cancelled Nasopharynx SARS-CoV-2 (PCR) Cancelled Negative Influenza Type A (PCR) (Negative) Negative Influenza Type B (PCR) (Negative) Negative RSV (PCR) (Negative) Negative Range/Units 11/27/21 11/27/21 11/27/21 13:50 13:50 14:28 WBC (4.4-10.8) 10^3/uL 6.00 RBC (3.93-5.22) 10^6/uL 3.35 L Hgb (11.2-15.7) g/dL 9.0 L Hct (36.0-46.0) % 27.1 L MCV (80-95) fL 81 MCH (27.0-33.0) pg 26.9 L MCHC (32.0-36.0) % 33.2 RDW (11.7-14.6) % 16.8 H Plt Count (130-400) 10^3/uL 204 MPV (8.0-11.0) fL 9.9 Immature Gran % 0.0 Neutrophils % 82.0 Band Neutrophils % 3 Lymphocytes % 10.0 Monocytes % 4.0 Eosinophils % 1.0 Basophils % 0.0 Nucleated RBC % (0.0-0.3) % 0.0 Absolute Neutrophils (1.2-6.7) 10^3/uL 5.10 Absolute Lymphocytes (1.2-3.4) 10^3/uL 0.60 L Absolute Monocytes (0.1-0.8) 10^3/uL 0.24 Absolute Eosinophils (0.0-0.7) 10^3/uL 0.06 Absolute Basophils (0.0-0.2) 10^3/uL 0.00 RBC Morphology Normal VBG Lactate (0.6-1.4) mmol/L 1.6 H Sodium (136-145) mmol/L Potassium (3.5-5.1) mmol/L Chloride (98-107) mmol/L Carbon Dioxide (21.0-32.0) mmol/L Anion Gap (3-11) mmol/L BUN (7-18) mg/dL Creatinine (0.55-1.02) mg/dL Est GFR (CKD-EPI 2020) (mL/min/1.73m2) Glucose (74-106) mg/dL Calcium (8.5-10.1) mg/dL Total Bilirubin (0.2-1.0) mg/dL AST (15-37) U/L ALT (14-59) U/L Alkaline Phosphatase (46-116) U/L Troponin I (<or=60) ng/L Total Protein (6.4-8.2) g/dL Albumin (3.4-5.0) g/dL Urine Color (Yellow) Urine Clarity (Clear) Urine pH (5-8) Ur Specific Mystic (1.005-1.025) Urine Protein (Negative) mg/dL Urine Ketones (Negative) mg/dL Urine Blood (Negative) Urine Nitrite (Negative) Urine Bilirubin (Negative) Urine Urobilinogen (Up TO 0.2) EU/dL Ur Leukocyte Esterase (Negative) Urine RBC (0-2) HPF Urine WBC (0-5) HPF Ur Epithelial Cells (Negative) HPF Urine Crystals (Negative) HPF Urine Bacteria (Negative) HPF Urine Casts (Negative) LPF Urine Mucus (Negative) Ur Culture Indicated? Urine Glucose (Negative) mg/dL Urine Opiates Screen (Negative) Negative Urine Methadone Screen (Negative) Positive A Ur Barbiturates Screen (Negative) Negative Ur Tricyclics Screen (Negative) Negative Ur Amphetamines Screen (Negative) Negative U Benzodiazepines Scrn (Negative) Negative Urine Cocaine Screen (Negative) Negative Ur THC Screen (Negative) Negative COVID-19 Source SARS-CoV-2 (PCR) Influenza Type A (PCR) (Negative) Influenza Type B (PCR) (Negative) RSV (PCR) (Negative) Range/Units 11/27/21 14:28 WBC (4.4-10.8) 10^3/uL RBC (3.93-5.22) 10^6/uL Hgb (11.2-15.7) g/dL Hct (36.0-46.0) % MCV (80-95) fL MCH (27.0-33.0) pg MCHC (32.0-36.0) % RDW (11.7-14.6) % Plt Count (130-400) 10^3/uL MPV (8.0-11.0) fL Immature Gran % Neutrophils % Band Neutrophils % Lymphocytes % Monocytes % Eosinophils % Basophils % Nucleated RBC % (0.0-0.3) % Absolute Neutrophils (1.2-6.7) 10^3/uL Absolute Lymphocytes (1.2-3.4) 10^3/uL Absolute Monocytes (0.1-0.8) 10^3/uL Absolute Eosinophils (0.0-0.7) 10^3/uL Absolute Basophils (0.0-0.2) 10^3/uL RBC Morphology VBG Lactate (0.6-1.4) mmol/L Sodium (136-145) mmol/L Potassium (3.5-5.1) mmol/L Chloride (98-107) mmol/L Carbon Dioxide (21.0-32.0) mmol/L Anion Gap (3-11) mmol/L BUN (7-18) mg/dL Creatinine (0.55-1.02) mg/dL Est GFR (CKD-EPI 2020) (mL/min/1.73m2) Glucose (74-106) mg/dL Calcium (8.5-10.1) mg/dL Total Bilirubin (0.2-1.0) mg/dL AST (15-37) U/L ALT (14-59) U/L Alkaline Phosphatase (46-116) U/L Troponin I (<or=60) ng/L Total Protein (6.4-8.2) g/dL Albumin (3.4-5.0) g/dL Urine Color (Yellow) Yellow Urine Clarity (Clear) Sl Cloudy Urine pH (5-8) 7.5 Ur Specific Mystic (1.005-1.025) 1.020 Urine Protein (Negative) mg/dL Negative Urine Ketones (Negative) mg/dL Negative Urine Blood (Negative) Trace-intact H Urine Nitrite (Negative) Negative Urine Bilirubin (Negative) Negative Urine Urobilinogen (Up TO 0.2) EU/dL 0.2 Ur Leukocyte Esterase (Negative) Negative Urine RBC (0-2) HPF 0-2 Urine WBC (0-5) HPF Negative Ur Epithelial Cells (Negative) HPF Rare Urine Crystals (Negative) HPF Few Amorphous Urine Bacteria (Negative) HPF Moderate Urine Casts (Negative) LPF Negative Urine Mucus (Negative) Negative Ur Culture Indicated? Yes Urine Glucose (Negative) mg/dL Negative Urine Opiates Screen (Negative) Urine Methadone Screen (Negative) Ur Barbiturates Screen (Negative) Ur Tricyclics Screen (Negative) Ur Amphetamines Screen (Negative) U Benzodiazepines Scrn (Negative) Urine Cocaine Screen (Negative) Ur THC Screen (Negative) COVID-19 Source SARS-CoV-2 (PCR) Influenza Type A (PCR) (Negative) Influenza Type B (PCR) (Negative) RSV (PCR) (Negative) HPI General Mode of arrival: ambulatory . Date/Time Provider Initiated Documentation: 11/27/21 11:08 . Limitations to Documentation: no limitations . Information obtained by: patient . HPI Narrative: 36-year-old female with history of prior IV drug use, osteomyelitis of the right lower leg status post partial amputation, multiple other medical problems, here with chief complaint of generally not feeling well. Patient notes she has been feeling sick for the past few days. She notes fever, body aches, cough. Symptoms are severe. She has been using Tylenol for fever. She notes pain in her mid to low back bilaterally. Back pain is severe. No associated numbness or tingling. Patient also notes pain in her right lower extremity partial amputation stump that has been present for the past couple months since she fell and sustained hematoma. Related Data Home Medications Medication Instructions Recorded Confirmed naloxone 4 mg/actuation nasal 4 mg intranasal Q2M PRN 05/29/20 10/14/21 spray (Narcan) methylphenidate HCl 20 mg tablet 20 mg PO TID 05/31/21 10/14/21 mirtazapine 30 mg tablet 30 mg PO HS 05/31/21 10/14/21 gabapentin 800 mg tablet 800 mg PO QID 06/02/21 10/14/21 methadone 10 mg/mL oral concentrate 125 mg PO DAILY 06/02/21 10/14/21 Acetaminophen [Tylenol] 650 mg PO Q4H PRN PRN ##0 06/05/21 08/20/21 methylphenidate HCl 10 mg tablet 10 mg PO TID 08/20/21 10/14/21 olanzapine 5 mg tablet 1 tab PO HS 08/20/21 10/14/21 olanzapine 5 mg tablet 5 mg PO TID PRN PRN Agitation 08/20/21 10/14/21 Previous Rx's Medication Instructions Recorded Acetaminophen [Tylenol] 650 mg PO Q4H PRN PRN ##0 06/05/21 Allergies Allergy/AdvReac Type Severity Reaction Status Date / Time bupropion HCl AdvReac Intermediate Contraindic Unverified 11/27/21 12:16 [From Wellbutrin SR] ated General Stated Complaint: GenMedical CELESTE: 3 Review of Systems All systems reviewed & are unremarkable except as noted in HPI and below Constitutional Constitutional: Reports fever(s) Respiratory Respiratory: Reports cough Musculoskeletal Musculoskeletal: Reports as per HPI PFSH All Active Problems (Updated 11/27/21 @ 18:02 by Ole Florian MD) Pneumonia (Acute) Anemia (Chronic) Hyponatremia (Acute) Cellulitis of left hand (Acute) Foreign body in foot, left (Acute) Localized swelling of left lower extremity (Acute) Cellulitis of hand, right (Acute) Cellulitis (Acute) Throat pain in adult (Acute) (Acute) Smoker (Acute) Viral illness (Acute) Dehydration (Acute) ADHD, hyperactive-impulsive type (Chronic 05/14/16) Subacute endocarditis (Acute 01/22/16) MSSA endocarditis January, Cardiomyopathy (Chronic 01/22/16) Pleural effusion, bilateral (Acute 01/22/16) History of prior with IUGR (Acute 01/11/15) History of kidney injury (Acute 01/17/16) Acute January, History of drug abuse (Acute 01/17/16) In IP treatment at [facility], no longer on methadone as of 01/17/16. F[place] ly court is close to resolved - will end . She is expecting 1st daughter to come home. Depression (Acute 01/11/15) Chronic hepatitis C without hepatic coma (Chronic 01/11/15) Bacterial vaginosis (Acute 05/24/13) Rx with Metronidazole cream given 04/19/15. Anemia of chronic disease (Acute 01/17/16) Insomnia (Acute) Discharge planning issues (Acute) DVT prophylaxis (Acute) Fever (Acute) Prepatellar bursitis of right knee (Acute) Edema (Acute) Mitral regurgitation (Chronic) Opioid dependence (Chronic) Anemia (Chronic) Anxiety (Chronic) Medical History ADHD Alcohol abuse Amputation of right foot COVID-19 virus infection Depression difficulty bonding with 2nd child. child removed from her custody. was on Wellbutrin but had sz and not on meds at this time. has appt with counselor 03/2015 Effusion, right knee Herpes, vulvar History of depression HSV infection Hx of infant who one week after . ? HSV or H1N1 infection. Pt has been on prophylaxis with pregnancies. Hx of cocaine abuse Paresthesia of both hands Personality disorder examination or test, positive result PTSD (post-traumatic stress disorder) Surgical History Amputation 12/23/16;[facility]; RIGHT BELOW THE KNEE section (11/24/12) PCD @ 35w. IUGR. NRFH. 0me11gi. [facility] – [place]. 03/26/15 RCD. Pt arrived in labor and declined [facility]. Family History Mother No problems noted. Father No problems noted. Brother No problems noted. Grandfather No problems noted. Grandfather No problems noted. Grandmother No problems noted. Grandmother No problems noted. Son No problems noted. Son No problems noted. Daughter No problems noted. Daughter No problems noted. Social History Smoking/Tobacco Use Status: Current every day Tobacco Type: cigarettes Smoking risk assessment performed?: Yes Alcohol Intake: former Drug use: Occasionally Substance use type: former substance user, marijuana, crack/cocaine and heroin Do you feel safe at home: Yes Do you feel safe in your relationship?: Yes Additional Social history: pt states she is on methadone History History 4 Para 4 Hx # Term Pregnancies Multiple births Hx # Pregnancies Ectopic pregnancies AB induced Hx Number of Living Children 3 AB spontaneous Past Pregnancies Del. Date GA/Weeks # Preg Succ Route Wgt Sex Labor Lgth Anesth esia Location Prov Complic 12/28/20 25 Delivery Date: 12/28/20 Last Updated by: Roxanna Rocha LPN [facility] Exam Const General: cooperative and uncomfortable HENMT Head: atraumatic Mouth: moist mucous membranes Eyes Conjunctivae: normal conjunctivae Sclera: normal sclerae EOM: EOM intact bilaterally Neck Neck: trachea midline and supple Resp Auscultation: rales bilaterally, no rhonchi and no wheezes Cardio Rate: regular rate and not tachycardic Rhythm: regular rhythm Heart Sounds: no murmurs GI Palpation: soft, not firm, no guarding, no masses, not rigid and nontender Back/Spine/Pelvis Cervical Spine: No cervical spinal tenderness Thoracic/Lumbar Spine: paraspinal tenderness, thoracic spinal tenderness and lumbar spinal tenderness Skin General skin exam: no rashes or lesions noted Neuro General: patient alert, patient awake and tone normal Extrem General: no edema Right lower extremity: lower leg (Below-knee amputation, stump with no rash, mild swelling and mild tendernes) Details: no erythema, no crepitus and no unusual warmth Psych Appearance: grossly normal Mental Status: mental status grossly normal Course Vital Signs Vital signs: Vital Signs Temperature 38.5 C H 11/27/21 10:39 Pulse 93 H 11/27/21 10:39 Respiratory Rate 22 11/27/21 10:39 Blood Pressure 114/58 L 11/27/21 10:39 Pulse Oximetry 98 11/27/21 10:39 Temperature 37.2 C 11/27/21 12:22 Temperature Source Skin 11/27/21 12:22 Pulse 101 H 11/27/21 12:22 Respiratory Rate 24 11/27/21 12:22 Blood Pressure 108/45 L 11/27/21 12:22 Blood Pressure Position Sitting 11/27/21 10:39 Pulse Oximetry 99 11/27/21 12:22 Oxygen Delivery Method Room Air 11/27/21 12:22 Oxygen Flow Rate 0 11/27/21 12:22 Pain Level 9 11/27/21 13:56 Lab/Test Results Lab/Test Results: 11/27/21 14:28 Urine - Reflex from Ua Urine Culture - Pending 11/27/21 13:50 Blood Blood Culture - Pending 11/27/21 12:07 Blood Blood Culture - Pending Laboratory Tests Range/Units 11/27/21 11/27/21 11/27/21 12:12 12:20 13:50 WBC (4.4-10.8) 10^3/uL RBC (3.93-5.22) 10^6/uL Hgb (11.2-15.7) g/dL Hct (36.0-46.0) % MCV (80-95) fL MCH (27.0-33.0) pg MCHC (32.0-36.0) % RDW (11.7-14.6) % Plt Count (130-400) 10^3/uL MPV (8.0-11.0) fL Immature Gran % Neutrophils % Band Neutrophils % Lymphocytes % Monocytes % Eosinophils % Basophils % Nucleated RBC % (0.0-0.3) % Absolute Neutrophils (1.2-6.7) 10^3/uL Absolute Lymphocytes (1.2-3.4) 10^3/uL Absolute Monocytes (0.1-0.8) 10^3/uL Absolute Eosinophils (0.0-0.7) 10^3/uL Absolute Basophils (0.0-0.2) 10^3/uL RBC Morphology VBG Lactate (0.6-1.4) mmol/L Sodium (136-145) mmol/L 127 L Potassium (3.5-5.1) mmol/L 4.5 Chloride (98-107) mmol/L 92 L Carbon Dioxide (21.0-32.0) mmol/L 28.3 Anion Gap (3-11) mmol/L 6.7 BUN (7-18) mg/dL 11 Creatinine (0.55-1.02) mg/dL 0.9 Est GFR (CKD-EPI 2020) (mL/min/1.73m2) 84.44 Glucose (74-106) mg/dL 80 Calcium (8.5-10.1) mg/dL 8.3 L Total Bilirubin (0.2-1.0) mg/dL 0.4 AST (15-37) U/L 13 L ALT (14-59) U/L 32 Alkaline Phosphatase (46-116) U/L 129 H Troponin I (<or=60) ng/L < 50 Total Protein (6.4-8.2) g/dL 7.3 Albumin (3.4-5.0) g/dL 2.7 L Urine Color (Yellow) Urine Clarity (Clear) Urine pH (5-8) Ur Specific Mystic (1.005-1.025) Urine Protein (Negative) mg/dL Urine Ketones (Negative) mg/dL Urine Blood (Negative) Urine Nitrite (Negative) Urine Bilirubin (Negative) Urine Urobilinogen (Up TO 0.2) EU/dL Ur Leukocyte Esterase (Negative) Urine RBC (0-2) HPF Urine WBC (0-5) HPF Ur Epithelial Cells (Negative) HPF Urine Crystals (Negative) HPF Urine Bacteria (Negative) HPF Urine Casts (Negative) LPF Urine Mucus (Negative) Ur Culture Indicated? Urine Glucose (Negative) mg/dL Urine Opiates Screen (Negative) Urine Methadone Screen (Negative) Ur Barbiturates Screen (Negative) Ur Tricyclics Screen (Negative) Ur Amphetamines Screen (Negative) U Benzodiazepines Scrn (Negative) Urine Cocaine Screen (Negative) Ur THC Screen (Negative) COVID-19 Source Cancelled Nasopharynx SARS-CoV-2 (PCR) Cancelled Negative Influenza Type A (PCR) (Negative) Negative Influenza Type B (PCR) (Negative) Negative RSV (PCR) (Negative) Negative Range/Units 11/27/21 11/27/21 11/27/21 13:50 13:50 14:28 WBC (4.4-10.8) 10^3/uL 6.00 RBC (3.93-5.22) 10^6/uL 3.35 L Hgb (11.2-15.7) g/dL 9.0 L Hct (36.0-46.0) % 27.1 L MCV (80-95) fL 81 MCH (27.0-33.0) pg 26.9 L MCHC (32.0-36.0) % 33.2 RDW (11.7-14.6) % 16.8 H Plt Count (130-400) 10^3/uL 204 MPV (8.0-11.0) fL 9.9 Immature Gran % 0.0 Neutrophils % 82.0 Band Neutrophils % 3 Lymphocytes % 10.0 Monocytes % 4.0 Eosinophils % 1.0 Basophils % 0.0 Nucleated RBC % (0.0-0.3) % 0.0 Absolute Neutrophils (1.2-6.7) 10^3/uL 5.10 Absolute Lymphocytes (1.2-3.4) 10^3/uL 0.60 L Absolute Monocytes (0.1-0.8) 10^3/uL 0.24 Absolute Eosinophils (0.0-0.7) 10^3/uL 0.06 Absolute Basophils (0.0-0.2) 10^3/uL 0.00 RBC Morphology Normal VBG Lactate (0.6-1.4) mmol/L 1.6 H Sodium (136-145) mmol/L Potassium (3.5-5.1) mmol/L Chloride (98-107) mmol/L Carbon Dioxide (21.0-32.0) mmol/L Anion Gap (3-11) mmol/L BUN (7-18) mg/dL Creatinine (0.55-1.02) mg/dL Est GFR (CKD-EPI 2020) (mL/min/1.73m2) Glucose (74-106) mg/dL Calcium (8.5-10.1) mg/dL Total Bilirubin (0.2-1.0) mg/dL AST (15-37) U/L ALT (14-59) U/L Alkaline Phosphatase (46-116) U/L Troponin I (<or=60) ng/L Total Protein (6.4-8.2) g/dL Albumin (3.4-5.0) g/dL Urine Color (Yellow) Urine Clarity (Clear) Urine pH (5-8) Ur Specific Mystic (1.005-1.025) Urine Protein (Negative) mg/dL Urine Ketones (Negative) mg/dL Urine Blood (Negative) Urine Nitrite (Negative) Urine Bilirubin (Negative) Urine Urobilinogen (Up TO 0.2) EU/dL Ur Leukocyte Esterase (Negative) Urine RBC (0-2) HPF Urine WBC (0-5) HPF Ur Epithelial Cells (Negative) HPF Urine Crystals (Negative) HPF Urine Bacteria (Negative) HPF Urine Casts (Negative) LPF Urine Mucus (Negative) Ur Culture Indicated? Urine Glucose (Negative) mg/dL Urine Opiates Screen (Negative) Negative Urine Methadone Screen (Negative) Positive A Ur Barbiturates Screen (Negative) Negative Ur Tricyclics Screen (Negative) Negative Ur Amphetamines Screen (Negative) Negative U Benzodiazepines Scrn (Negative) Negative Urine Cocaine Screen (Negative) Negative Ur THC Screen (Negative) Negative COVID-19 Source SARS-CoV-2 (PCR) Influenza Type A (PCR) (Negative) Influenza Type B (PCR) (Negative) RSV (PCR) (Negative) Range/Units 11/27/21 14:28 WBC (4.4-10.8) 10^3/uL RBC (3.93-5.22) 10^6/uL Hgb (11.2-15.7) g/dL Hct (36.0-46.0) % MCV (80-95) fL MCH (27.0-33.0) pg MCHC (32.0-36.0) % RDW (11.7-14.6) % Plt Count (130-400) 10^3/uL MPV (8.0-11.0) fL Immature Gran % Neutrophils % Band Neutrophils % Lymphocytes % Monocytes % Eosinophils % Basophils % Nucleated RBC % (0.0-0.3) % Absolute Neutrophils (1.2-6.7) 10^3/uL Absolute Lymphocytes (1.2-3.4) 10^3/uL Absolute Monocytes (0.1-0.8) 10^3/uL Absolute Eosinophils (0.0-0.7) 10^3/uL Absolute Basophils (0.0-0.2) 10^3/uL RBC Morphology VBG Lactate (0.6-1.4) mmol/L Sodium (136-145) mmol/L Potassium (3.5-5.1) mmol/L Chloride (98-107) mmol/L Carbon Dioxide (21.0-32.0) mmol/L Anion Gap (3-11) mmol/L BUN (7-18) mg/dL Creatinine (0.55-1.02) mg/dL Est GFR (CKD-EPI 2020) (mL/min/1.73m2) Glucose (74-106) mg/dL Calcium (8.5-10.1) mg/dL Total Bilirubin (0.2-1.0) mg/dL AST (15-37) U/L ALT (14-59) U/L Alkaline Phosphatase (46-116) U/L Troponin I (<or=60) ng/L Total Protein (6.4-8.2) g/dL Albumin (3.4-5.0) g/dL Urine Color (Yellow) Yellow Urine Clarity (Clear) Sl Cloudy Urine pH (5-8) 7.5 Ur Specific Mystic (1.005-1.025) 1.020 Urine Protein (Negative) mg/dL Negative Urine Ketones (Negative) mg/dL Negative Urine Blood (Negative) Trace-intact H Urine Nitrite (Negative) Negative Urine Bilirubin (Negative) Negative Urine Urobilinogen (Up TO 0.2) EU/dL 0.2 Ur Leukocyte Esterase (Negative) Negative Urine RBC (0-2) HPF 0-2 Urine WBC (0-5) HPF Negative Ur Epithelial Cells (Negative) HPF Rare Urine Crystals (Negative) HPF Few Amorphous Urine Bacteria (Negative) HPF Moderate Urine Casts (Negative) LPF Negative Urine Mucus (Negative) Negative Ur Culture Indicated? Yes Urine Glucose (Negative) mg/dL Negative Urine Opiates Screen (Negative) Urine Methadone Screen (Negative) Ur Barbiturates Screen (Negative) Ur Tricyclics Screen (Negative) Ur Amphetamines Screen (Negative) U Benzodiazepines Scrn (Negative) Urine Cocaine Screen (Negative) Ur THC Screen (Negative) COVID-19 Source SARS-CoV-2 (PCR) Influenza Type A (PCR) (Negative) Influenza Type B (PCR) (Negative) RSV (PCR) (Negative)
--- NOTE | 2021-11-27 17:40 | NUR.NOTE ---
Nursing Note: pt is currently complaining of severe pain. difficulty understanding speech. complains of cold. Has multiple blankets. report from previous rn CT stated she may be in withdrawl. Dr guillaume is aware.
--- NOTE | 2021-11-27 17:50 | DI.VRAD_ITS ---
PROCEDURE INFORMATION: Exam: XR Thoracic Spine Exam date and time: 11/27/2021 5:05 PM Age: 36 years old Clinical indication: Other: Pain TECHNIQUE: Imaging protocol: Radiologic exam of the thoracic spine. Views: 3 views. COMPARISON: MR THORACIC SPINE WO/W 11/27/2021 2:52 PM FINDINGS: Bones/joints: There is mild broad-based thoracic dextroscoliosis. The disc spaces are maintained without degenerative changes. There are no acute compression fractures or displaced fractures. There are no subluxations. Soft tissues: Unremarkable. Lungs: Findings suggest mild atelectasis/scarring within the lateral apical region of the left upper lobe. IMPRESSION: 1. No degenerative changes. 2. No acute fractures or subluxations. 3. Mild broad-based thoracic dextroscoliosis. 4. Findings suggest mild atelectasis/scarring within the lateral apical region the left upper lobe. Dictated and Authenticated by: Martín Callahan MD. Ordering:BRANDO Handy MD
--- NOTE | 2021-11-27 17:57 | DI.VRAD_ITS ---
PROCEDURE INFORMATION: Exam: XR Lumbosacral Spine Exam date and time: 11/27/2021 5:06 PM Age: 36 years old Clinical indication: Other: Pain TECHNIQUE: Imaging protocol: Radiologic exam of the lumbosacral spine. Views: 2 or 3 views. COMPARISON: MR LUMBAR SPINE WO/W 11/27/2021 2:52 PM as well as [address] of the chest, abdomen and pelvis dated 07/13/2021. FINDINGS: Bones/joints: There is a mild to moderate anterior wedge compression deformity of the L1 vertebra, as well as a mild anterior wedge compression deformity of the T12 vertebra. These appear very similar to prior CT of the chest, abdomen and pelvis dated 07/13/2021. No acute displaced fractures are identified. There are no subluxations. There is multilevel mild spondylosis around the thoracolumbar junction. Both sacroiliac joints are patent and symmetric and appear unremarkable. Soft tissues: Unremarkable. IMPRESSION: Anterior wedge compression deformities of the T12 and L1 vertebra which appear similar to prior CT of the chest, abdomen and pelvis dated 07/13/2021. Please refer to report of MRI of the lumbar spine and thoracic spine dated 11/27/2021 for further evaluation. Dictated and Authenticated by: Martín Callahan MD. Ordering:BRANDO Handy MD
--- NOTE | 2021-11-27 18:01 | DI.VRAD_ITS ---
PROCEDURE INFORMATION: Exam: XR Right Tibia and Fibula Exam date and time: 11/27/2021 5:03 PM Age: 36 years old Clinical indication: Pain TECHNIQUE: Imaging protocol: Radiologic exam of the Right tibia and fibula. Views: 2 views. 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 The amputation margins appear smooth and corticated. There is no focal osseous destruction or abnormal periosteal reaction to suggest acute osteomyelitis. Osseous mineralization is normal. There are no inflammatory osseous erosive changes. No focal osseous lesions are identified. There are no acute displaced fractures or subluxations. Soft tissues: The soft tissue swelling distal to the amputation sites appears improved. However, there is increased mild soft tissue swelling anterior to patella and patellar tendon extending inferiorly to the level of the tibial tuberosity. There is no soft tissue air. IMPRESSION: 1. No fractures or subluxations. 2. No radiographic evidence of acute osteomyelitis. 3. Increased soft tissue swelling anterior to the patella and patellar tendon, may be posttraumatic or could reflect cellulitis. Recommend clinical correlation. Dictated and Authenticated by: Martín Callahan MD. Ordering:BRANDO Handy MD
--- NOTE | 2021-11-27 18:06 | DI.VRAD_ITS ---
PROCEDURE INFORMATION: Exam: XR Chest Exam date and time: 11/27/2021 5:17 PM Age: 36 years old Clinical indication: Pain; Other: Cough TECHNIQUE: Imaging protocol: Radiologic exam of the chest. Views: 1 view. COMPARISON: CT CHEST/ABD/PEL W 07/13/2021 7:59 AM FINDINGS: Lungs: Again noted is focal mild patchy airspace opacity at the lateral apical region of the left upper lobe suggesting chronic pleuroparenchymal scarring. There is new mild patchy and nodular branching airspace opacity at the left lung base as well as in the bilateral midlung regions and at the lateral right lung base, suggesting mild multifocal bronchopneumonia. There is no pulmonary vascular congestion. Pleural spaces: There are no pleural effusions present. There is no evidence of pneumothorax. Heart/Mediastinum: The cardiomediastinal silhouette is within normal limits. Bones/joints: Unremarkable. IMPRESSION: Findings suggest new mild multifocal bronchopneumonia as described above. Recommend follow-up PA and lateral chest x-ray in 8 weeks to document resolution. Dictated and Authenticated by: Martín Callahan MD. Ordering:BRANDO Handy MD
[2021-11-27] MEDS: CEFEPIME 2 GM in Normal Saline 100 ML IVPB (18:49)
[2021-11-27] MEDS: Ibuprofen 600 MG TAB PO (18:49)
--- NOTE | 2021-11-27 18:50 | NUR.NOTE ---
Nursing Note: lab came to collect blood cultures. multiple attempts were made on both hands by lab. they were unable to get a sample after 25+ minutes. Spoke with Dr guillaume. - he is aware and was ok with starting the antibiotics anyway
--- NOTE | 2021-11-27 19:04 | W.PM.HP.N ---
Date of service: 11/27/21 Time of Service: 19:04 Assessment and Plan Assessment and plan (1) Pneumonia: Start date: 11/27/21 Status: Acute Assessment and plan: This is a 36-year-old lady with ongoing IV drug use and risk for bacteremia with Staphylococcus having a previous history of endocarditis. She already has growth and her blood culture done in the ED and she is on appropriate therapy with vancomycin and cefepime. Follow-up blood cultures and update echocardiogram because of persistent mitral regurg murmur and concern for endocarditis with recurrent bacteremia and IV drug use. Patient is a full code. Prognosis poor with behavior not changing. (2) Bacteremia: Start date: 11/27/21 Status: Acute Assessment and plan: Continue IV vancomycin and cefepime adjusting medical therapy to blood cultures and sensitivities. Patient may need prolonged course if any evidence of endocarditis or osteomyelitis thus far having no evidence of osteomyelitis over her spine where she has previous compression fractures. Echocardiogram is pending to evaluate for vegetations. (3) Intractable low back pain: Start date: 11/27/21 Status: Acute Assessment and plan: Patient has known compression fractures which are nonacute but has intractable back pain which is difficult to interpret with her drug addiction. She is on methadone and take home dosing with family supervising. Monitor back pain as we treat her acute processes and watch closely for complications of osteomyelitis with bacteremia. Hopefully this can be avoided. (4) Hyponatremia: Start date: 11/27/21 Status: Acute Assessment and plan: Most likely associated with acute pneumonia and will treat with gentle IV hydration and monitor may need fluid restriction. (5) Opioid dependence: Status: Chronic Assessment and plan: Continue methadone once assuring dosing with methadone clinic. Avoid short acting narcotics with patient's chronic pain and use NSAIDs and/or Tylenol cautiously. (6) ADHD, hyperactive-impulsive type: Status: Chronic Assessment and plan: Patient on methylphenidate but appears to be abusing this medication with this to be held for now. Long-term patient needs to be reevaluated on treatment of addictive personality and self treatment with snorting and/or IV drug use an ongoing issue. (7) Mitral regurgitation: Status: Chronic Assessment and plan: Update echocardiogram with patient now having bacteremia with IV drug use and persistent murmur. She she is at risk for repeated endocarditis. Her insight is poor. History of Present Illness History of Present Illness Chief Complaint: Multifocal Pneumonia, IVDU Narrative: This is a 36-year-old female patient with known IV drug use claiming that she had not used IV drugs since July of this year but during her initial stay on Med[facility] she was seen on video camera crushing what appeared to be her dosing of methylphenidate and attempting to use a syringe to dissolve in water and use IV. Most likely she has active IV drug use by this observation. She did present with cough and body aches with fever as well as severe back pain which had no radiation of neurological symptoms. 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 She did sustain a hematoma over the stump a couple months ago and has had pain in that area since. She has difficult to assess for pain because of her chronic opioid abuse and methadone treatment. She also has ongoing self treatment as mentioned above. She was admitted with probable bacteremia secondary to IV drug use and for multifocal pneumonia found on imaging. This was done by CT. She also had imaging of her back which did not suggest any acute infection with a chronic vertebral compression fractures which was present and unchanged from prior CT. imaging of the right stump also revealed mild soft tissue swelling but no evidence of osteomyelitis. Review of Systems Narrative: 13 point review of systems otherwise unrevealing or table with patient chronically having musculoskeletal complaints and pain issues with self treatment unfortunately with IV drug use ongoing. She has had no pleuritic chest discomfort or chest pain with previous history of endocarditis. [facility]LY [facility] All Active Problems Bacteremia (Acute) Intractable low back pain (Acute) Pneumonia (Acute) Anemia (Chronic) Hyponatremia (Acute) Cellulitis of left hand (Acute) Foreign body in foot, left (Acute) Localized swelling of left lower extremity (Acute) Cellulitis of hand, right (Acute) Cellulitis (Acute) Throat pain in adult (Acute) (Acute) Smoker (Acute) Viral illness (Acute) Dehydration (Acute) ADHD, hyperactive-impulsive type (Chronic 05/14/16) Subacute endocarditis (Acute 01/22/16) MSSA endocarditis January, Cardiomyopathy (Chronic 01/22/16) Pleural effusion, bilateral (Acute 01/22/16) History of prior with IUGR (Acute 01/11/15) History of kidney injury (Acute 01/17/16) Acute January, History of drug abuse (Acute 01/17/16) In IP treatment at [place], no longer on methadone as of 01/17/16. Family court is close to resolved - will end . She is expecting 1st daughter to come home. Depression (Acute 01/11/15) Chronic hepatitis C without hepatic coma (Chronic 01/11/15) Bacterial vaginosis (Acute 05/24/13) Rx with Metronidazole cream given 04/19/15. Anemia of chronic disease (Acute 01/17/16) Insomnia (Acute) Discharge planning issues (Acute) DVT prophylaxis (Acute) Fever (Acute) Prepatellar bursitis of right knee (Acute) Edema (Acute) Mitral regurgitation (Chronic) Opioid dependence (Chronic) Anemia (Chronic) Anxiety (Chronic) Medical History ADHD Alcohol abuse Amputation of right foot COVID-19 virus infection Depression difficulty bonding with 2nd child. child removed from her custody. was on Wellbutrin but had sz and not on meds at this time. has appt with counselor 03/2015 Effusion, right knee Herpes, vulvar History of depression HSV infection Hx of who one week after . ? HSV or H1N1 infection. Pt has been on prophylaxis with pregnancies. Hx of cocaine abuse Paresthesia of both hands Personality disorder examination or test, positive result PTSD (post-traumatic stress disorder) Surgical History Amputation 12/23/16;[facility]; RIGHT BELOW THE KNEE section (11/24/12) PCD @ 35w. [facility] [id number]. [facility]. 03/26/15 RCD. Pt arrived in labor and declined SUN. Chad Hausera. Family History Mother No problems noted. Father No problems noted. Brother No problems noted. Grandfather No problems noted. Grandfather No problems noted. Grandmother No problems noted. Grandmother No problems noted. Son No problems noted. Son No problems noted. Daughter No problems noted. Daughter No problems noted. Social History Smoking/Tobacco Use Status: Current every day Tobacco Type: cigarettes Smoking risk assessment performed?: Yes Alcohol Intake: former Drug use: Occasionally Substance use type: former substance user, marijuana, crack/cocaine and heroin Do you feel safe at home: Yes Do you feel safe in your relationship?: Yes Additional Social history: pt states she is on methadone History History 4 Para 4 Hx # Term Pregnancies Multiple births Hx # Pregnancies Ectopic pregnancies AB induced Hx Number of Living Children 3 AB spontaneous Past Pregnancies Del. Date GA/Weeks # Preg Succ Route Wgt Sex Labor Lgth Anesthesia Location Prov Complic 12/28/20 25 Delivery Date: 12/28/20 Last Updated by: Roxanna Rocha LPN Patient transferred OB care to [facility] Meds Allergies and Home Medications Allergies Allergy/AdvReac Type Severity Reaction Status Date / Time bupropion HCl AdvReac Intermediate Contraindic Unverified 11/27/21 12:16 [From Wellbutrin SR] ated Home Medications Medication Instructions Recorded Confirmed Type naloxone 4 mg/actuation nasal 4 mg intranasal Q2M PRN 05/29/20 11/27/21 History spray (Narcan) methylphenidate HCl 20 mg tablet 20 mg PO TID 05/31/21 11/27/21 History gabapentin 800 mg tablet 800 mg PO QID 06/02/21 11/27/21 History methadone 10 mg/mL oral concentrate 125 mg PO DAILY 06/02/21 11/27/21 History Acetaminophen [Tylenol] 650 mg PO Q4H PRN PRN ##0 06/05/21 08/20/21 Rx methylphenidate HCl 10 mg tablet 10 mg PO TID 08/20/21 11/27/21 History olanzapine 5 mg tablet 1 tab PO HS 08/20/21 11/27/21 History duloxetine 30 mg capsule,delayed cap PO 11/27/21 History release Exam Narrative Exam Narrative: General: Patient is in moderate severe distress crying and complaining of pain in her back though this is intermittent with patient focusing and stopping her tearfulness especially when agitated about being seen attempted to use a needle to inject her methylphenidate and denying the attempt though she admits she tried to hide the syringe in her vagina because she did not know what to do. She is alert and oriented least person and place. She has wandering conversation and is difficult at times to understand. HEENT: Normocephalic, coarsened facial features, poor dentition with moist oral mucosa, eyes with pupils equal and reactive light symmetrically, extraocular movement intact and sclera anicteric. Neck: Supple without JVD. Back: Stooped posture with tenderness to palpation over the thoracic and lumbar spine, loss of lordotic curve lumbar spine and decreased range of motion with increased tone of paraspinal muscles. No specific point tenderness to palpation to correlate with old compression fractures seen on imaging. No CVA tenderness. Lungs: Bronchovesicular breath sounds diffusely and occasional expiratory crackles without focalizing with normal expiratory phase and no auscultated expiratory wheeze. Fair aeration diffusely. Heart: Regular rate and rhythm with 3/6 holosystolic murmur over apex. No gallops or rubs. Breast: Exam deferred. Abdomen: Slightly obese contour, soft and nontender to palpation with no palpable hepatosplenomegaly. Genitalia/rectal: Exam deferred. Extremities: Low right BKA with stump covered with stocking but not grossly edematous and skin over knee not erythematous. Left lower extremity intact. Fair capillary refill. No clubbing, cyanosis or pitting edema. Skin: Normal color, warm and moist diffusely with patient slightly diaphoretic with fever. Neuro: Cranial nerves II through XII gross intact, no focalizing motor deficits or tremor. Psych: Labile affect and depressed mood with patient having strong element of denial but no other abnormal thought processes. She is a poor historian and has avoidance behavior when discussing difficult issues. Remote and recent memory appear to be grossly intact. Results Imaging Imaging Studies: Exam: XR Chest Exam date and time: 11/27/2021 5:17 PM Age: 36 years old Clinical indication: Pain; Other: Cough TECHNIQUE: Imaging protocol: Radiologic exam of the chest. Views: 1 view. COMPARISON: CT CHEST/ABD/PEL W 07/13/2021 7:59 AM FINDINGS: Lungs: Again noted is focal mild patchy airspace opacity at the lateral apical region of the left upper lobe suggesting chronic pleuroparenchymal scarring. There is new mild patchy and nodular branching airspace opacity at the left lung base as well as in the bilateral midlung regions and at the lateral right lung base, suggesting mild multifocal bronchopneumonia. There is no pulmonary vascular congestion. Pleural spaces: There are no pleural effusions present. There is no evidence of pneumothorax. Heart/Mediastinum: The cardiomediastinal silhouette is within normal limits. Bones/joints: Unremarkable. IMPRESSION: Findings suggest new mild multifocal bronchopneumonia as described above. Recommend follow-up PA and lateral chest x-ray in 8 weeks to document resolution. Exam: XR Right Tibia and Fibula Exam date and time: 11/27/2021 5:03 PM Age: 36 years old Clinical indication: Pain TECHNIQUE: Imaging protocol: Radiologic exam of the Right tibia and fibula. Views: 2 views. 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 The amputation margins appear smooth and corticated. There is no focal osseous destruction or abnormal periosteal reaction to suggest acute osteomyelitis. Osseous mineralization is normal. There are no inflammatory osseous erosive changes. No focal osseous lesions are identified. There are no acute displaced fractures or subluxations. Soft tissues: The soft tissue swelling distal to the amputation sites appears improved. However, there is increased mild soft tissue swelling anterior to patella and patellar tendon extending inferiorly to the level of the tibial tuberosity. There is no soft tissue air. IMPRESSION: 1. No fractures or subluxations. 2. No radiographic evidence of acute osteomyelitis. 3. Increased soft tissue swelling anterior to the patella and patellar tendon, may be posttraumatic or could reflect cellulitis. Recommend clinical correlation Exam: XR Lumbosacral Spine Exam date and time: 11/27/2021 5:06 PM Age: 36 years old Clinical indication: Other: Pain TECHNIQUE: Imaging protocol: Radiologic exam of the lumbosacral spine. Views: 2 or 3 views. COMPARISON: MR LUMBAR SPINE WO/W 11/27/2021 2:52 PM as well as CT of the chest, abdomen and pelvis dated 07/13/2021. FINDINGS: Bones/joints: There is a mild to moderate anterior wedge compression deformity of the L1 vertebra, as well as a mild anterior wedge compression deformity of the T12 vertebra. These appear very similar to prior CT of the chest, abdomen and pelvis dated 07/13/2021. No acute displaced fractures are identified. There are no subluxations. There is multilevel mild spondylosis around the thoracolumbar junction. Both sacroiliac joints are patent and symmetric and appear unremarkable. Soft tissues:? Unremarkable. IMPRESSION: Anterior wedge compression deformities of the T12 and L1 vertebra which appear similar to prior CT of the chest, abdomen and pelvis dated 07/13/2021. Please refer to report of MRI of the lumbar spine and thoracic spine dated 11/27/2021 for further evaluation. Exam: XR Thoracic Spine Exam date and time: 11/27/2021 5:05 PM Age: 36 years old Clinical indication: Other: Pain TECHNIQUE: Imaging protocol: Radiologic exam of the thoracic spine. Views: 3 views. COMPARISON: MR THORACIC SPINE WO/W 11/27/2021 2:52 PM FINDINGS: Bones/joints: There is mild broad-based thoracic dextroscoliosis. The disc spaces are maintained without degenerative changes. There are no acute compression fractures or displaced fractures. There are no subluxations. Soft tissues: Unremarkable. Lungs: Findings suggest mild atelectasis/scarring within the lateral apical region of the left upper lobe. IMPRESSION: 1. No degenerative changes. 2. No acute fractures or subluxations. 3. Mild broad-based thoracic dextroscoliosis. 4. Findings suggest mild atelectasis/scarring within the lateral apical region the left upper lobe. MR THORACIC SPINE WO/W EXAM:? MR THORACIC SPINE WO/W CLINICAL HISTORY:? pain low thoracic , fever TECHNIQUE:? Multiplanar multisequence MRI of the thoracic spine was performed without and with intravenous contrast.? Contrast injected was 12 mL Dotarem. COMPARISON:? CT CT THORACIC ? LUMBAR SPINE REC from 07/13/2021 MR MR LUMBAR SPINE WO/W from 11/27/2021 FINDINGS: OSSEOUS: There are no acute appearing thoracic vertebral fractures. Mild loss of height of superior endplate of T12 noted which is not a new finding.? Please note that L1 vertebral body is fractured but out of the field of view here.? This is better seen on the lumbar spine study but is nevertheless not an acute finding and was evident on prior CT scan.? There is no compromise of the spinal canal at T12 level. SIGNIFICANT INDIVIDUAL LEVEL FINDINGS: Suboptimal study due to abundant motion artifact making accurate interpretation not possible. IMPRESSION: 1. Limited study due to the amount of motion artifact, particularly in the axial images. 2. However, there are fractures of T12 and L1, mild at L2-12 superior endplate level and not new.? More prominent at L1 level which is beyond the field of view of this study and seen on the lumbar spine MRI.? Both of these findings are not new 3. Difficult to determine if there abnormal enhancing structures on the axial images but none on the sagittal sequences. MR LUMBAR SPINE WO/W EXAM:? MR LUMBAR SPINE WO/W CLINICAL HISTORY: ? pain, fever.? TECHNIQUE:? Multiplanar multisequence MRI of the Lumbar spine was performed. COMPARISON:? CT CT THORACIC ? LUMBAR SPINE REC from 07/13/2021 CR XR THORACIC SPINE COMPLETE from 11/27/2021 CR XR LUMBAR SPINE AP, LAT from 11/27/2021 FINDINGS: Quality of this study is severely limited by abundant motion artifact making interpretation very difficult Bones:Compression fractures of T12 and L1 noted although these findings were evident on CT scan of 07/13/2021. Mild residual bone edema at levels.? No obvious abnormality in the L2 and below lumbar vertebrae. With respect to the individual disc levels...? These cannot be accurately assessed because of the amount of motion artifact here. IMPRESSION: 1. Fractures T12-L1 which were previously present on CT scan of 07/13/2021.? There is no gross compromise of the spinal canal at these levels, realizing the severe limitations the study due to the significant amount of motion Labs Result diagrams: 11/27/21 13:50 11/27/21 13:50 Labs: Laboratory Results - last 24 hr 11/27/21 11/27/21 11/27/21 12:12 12:20 13:50 WBC RBC Hgb Hct MCV MCH MCHC RDW Plt Count MPV Immature Gran % Neutrophils % Band Neutrophils % Lymphocytes % Monocytes % Eosinophils % Basophils % Nucleated RBC % Absolute Neutrophils Absolute Lymphocytes Absolute Monocytes Absolute Eosinophils Absolute Basophils RBC Morphology VBG Lactate Sodium 127 L Potassium 4.5 Chloride 92 L Carbon Dioxide 28.3 Anion Gap 6.7 BUN 11 Creatinine 0.9 Est GFR (CKD-EPI 2020) 84.44 Glucose 80 Calcium 8.3 L Total Bilirubin 0.4 AST 13 L ALT 32 Alkaline Phosphatase 129 H Troponin I < 50 Total Protein 7.3 Albumin 2.7 L Urine Color Urine Clarity Urine pH Ur Specific [place] Urine Protein Urine Ketones Urine Blood Urine Nitrite Urine Bilirubin Urine Urobilinogen Ur Leukocyte Esterase Urine RBC Urine WBC Ur Epithelial Cells Urine Crystals Urine Bacteria Urine Casts Urine Mucus Ur Culture Indicated? Urine Glucose Urine Opiates Screen Urine Methadone Screen Ur Barbiturates Screen Ur Tricyclics Screen Ur Amphetamines Screen U Benzodiazepines Scrn Urine Cocaine Screen Ur THC Screen COVID-19 Source Cancelled Nasopharynx SARS-CoV-2 (PCR) Cancelled Negative Influenza Type A (PCR) Negative Influenza Type B (PCR) Negative RSV (PCR) Negative 11/27/21 11/27/21 11/27/21 13:50 13:50 14:28 WBC 6.00 RBC 3.35 L Hgb 9.0 L Hct 27.1 L MCV 81 MCH 26.9 L MCHC 33.2 RDW 16.8 H Plt Count 204 MPV 9.9 Immature Gran % 0.0 Neutrophils % 82.0 Band Neutrophils % 3 Lymphocytes % 10.0 Monocytes % 4.0 Eosinophils % 1.0 Basophils % 0.0 Nucleated RBC % 0.0 Absolute Neutrophils 5.10 Absolute Lymphocytes 0.60 L Absolute Monocytes 0.24 Absolute Eosinophils 0.06 Absolute Basophils 0.00 RBC Morphology Normal VBG Lactate 1.6 H Sodium Potassium Chloride Carbon Dioxide Anion Gap BUN Creatinine Est GFR (CKD-EPI 2020) Glucose Calcium Total Bilirubin AST ALT Alkaline Phosphatase Troponin I Total Protein Albumin Urine Color Urine Clarity Urine pH Ur Specific [place] Urine Protein Urine Ketones Urine Blood Urine Nitrite Urine Bilirubin Urine Urobilinogen Ur Leukocyte Esterase Urine RBC Urine WBC Ur Epithelial Cells Urine Crystals Urine Bacteria Urine Casts Urine Mucus Ur Culture Indicated? Urine Glucose Urine Opiates Screen Negative Urine Methadone Screen Positive A Ur Barbiturates Screen Negative Ur Tricyclics Screen Negative Ur Amphetamines Screen Negative U Benzodiazepines Scrn Negative Urine Cocaine Screen Negative Ur THC Screen Negative COVID-19 Source SARS-CoV-2 (PCR) Influenza Type A (PCR) Influenza Type B (PCR) RSV (PCR) 11/27/21 14:28 WBC RBC Hgb Hct MCV MCH MCHC RDW Plt Count MPV Immature Gran % Neutrophils % Band Neutrophils % Lymphocytes % Monocytes % Eosinophils % Basophils % Nucleated RBC % Absolute Neutrophils Absolute Lymphocytes Absolute Monocytes Absolute Eosinophils Absolute Basophils RBC Morphology VBG Lactate Sodium Potassium Chloride Carbon Dioxide Anion Gap BUN Creatinine Est GFR (CKD-EPI 2020) Glucose Calcium Total Bilirubin AST ALT Alkaline Phosphatase Troponin I Total Protein Albumin Urine Color Yellow Urine Clarity Sl Cloudy Urine pH 7.5 Ur Specific [place] 1.020 Urine Protein Negative Urine Ketones Negative Urine Blood Trace-intact H Urine Nitrite Negative Urine Bilirubin Negative Urine Urobilinogen 0.2 Ur Leukocyte Esterase Negative Urine RBC 0-2 Urine WBC Negative Ur Epithelial Cells Rare Urine Crystals Few Amorphous Urine Bacteria Moderate Urine Casts Negative Urine Mucus Negative Ur Culture Indicated? Yes Urine Glucose Negative Urine Opiates Screen Urine Methadone Screen Ur Barbiturates Screen Ur Tricyclics Screen Ur Amphetamines Screen U Benzodiazepines Scrn Urine Cocaine Screen Ur THC Screen COVID-19 Source SARS-CoV-2 (PCR) Influenza Type A (PCR) Influenza Type B (PCR) RSV (PCR) Last Vital Signs Temp 39.8 C H 11/27/21 18:52 Pulse 99 H 11/27/21 18:52 Resp 22 11/27/21 18:52 BP 108/50 L 11/27/21 18:52 Pulse Ox 99 11/27/21 18:52
[2021-11-27] MEDS: VANCOMYCIN 1,500 MG in Normal Saline 250 ML 166.6666 MG IVPB (19:40)
[2021-11-27] MEDS: OLANZapine 5 MG TAB PO (21:21)
[2021-11-27] MEDS: Acetaminophen 325 MG TAB PO (21:21)
[2021-11-27] MEDS: Normal Saline 1,000 ML 125 ML IV (21:22)
[2021-11-27] MEDS: Gabapentin 800 MG TAB PO (21:36)
[2021-11-27] MEDS: Mirtazapine 15 MG TAB 30 MG PO (21:36)
[2021-11-27] MEDS: Methylphenidate 10 MG TAB PO (22:19)
[2021-11-27] MEDS: Heparin 5,000 UNITS/ML VIAL 5000 UNITS SC (22:36)
[2021-11-28] VITALS (13 sets, daily range): BP systolic 98–142; BP diastolic 57–78; PULSE 65–116; RESP 16–20; TEMP 36.3–40; O2SAT 94–100
--- NOTE | 2021-11-28 00:06 | NUR.NOTE ---
Nursing Note: Patient was seen on video monitor removing 'a pill' (Last medication administered was Ritalin) from her mouth once RN left room. Pt then used her jello spoon and began to crush her pill on the bedside table. Patient then removed a syringe from her vaginal area, and RN ran to room door and knocked on the door, 'spooking' the patient . Patient immediately stopped what she was attempting. While RNs were donning PPE, patient was seen on camera squirting whatever was in the syringe onto the floor, then placing the syringe back into her vaginal area. Once RN entered the room, patient denied all actions, after several minutes of speaking with patient. Patient admitted to what she was doing, removed syringe from that body cavity and handed it over to RN to dispose of properly in sharps container. Patient was given very strict instructions that behavior would not be tolerated ever again. Patient became tearful and tried stating, I wouldn't even know how to do it, even if i was doing that. Regarding injecting crushed/dissolved medication into her IV line. NEW PLAN: Patient will be given her PO medication and show complete swallowing before RN leaves room. Patient has no belongings in her room. *Syringe did not come from room #217, possibly came from home or Dept. patient was in, before admission.
[2021-11-28] MEDS: Normal Saline 1,000 ML 125 ML IV (04:09)
[2021-11-28] MEDS: Acetaminophen 325 MG TAB PO ×4 (04:09→23:41)
[2021-11-28] MEDS: Ketorolac 15 MG/ML VIAL IVP ×3 (05:02→19:59)
--- NOTE | 2021-11-28 05:54 | NUR.NOTE ---
Nursing Note: 1x 15mg Toradol appears to be helping patients 10:10 back pain
[2021-11-28] MEDS: Normal Saline Flush 10 ML SYR IVP ×2 (08:06→19:59)
[2021-11-28] MEDS: DULoxetine 30 MG CAP PO (08:06)
[2021-11-28] MEDS: Gabapentin 800 MG TAB PO ×4 (08:15→19:59)
[2021-11-28] MEDS: Methadone Liquid 10 MG/ML 125 MG PO (08:22)
[2021-11-28 08:57] LABS: Lactate 3.5 mmol/L (0.6-1.4)
[2021-11-28 09:01] LABS: Abs Immature Grans 0.02 10^3/uL (0.0-0.06); HCT 27.9 % (36.0-46.0); HGB 9.2 g/dL (11.2-15.7); MCV 82 fL (80-95); MPV 10.9 fL (8.0-11.0); Platelet Count 134 10^3/uL (130-400); RBC 3.41 10^6/uL (3.93-5.22); RDW 17.1 % (11.7-14.6); RDW-SD 50.7 fL; WBC 3.75 10^3/uL (4.4-10.8)
[2021-11-28 09:07] LABS: INR 1.1 (0.9-1.1)
[2021-11-28 09:12] LABS: ALT 18 U/L (14-59); AST 10 U/L (15-37); Albumin 1.8 g/dL (3.4-5.0); Alkaline Phosphatase 100 U/L (46-116); Anion Gap 7.5 mmol/L (3-11); BUN 13 mg/dL (7-18); Bilirubin, Total 0.2 mg/dL (0.2-1.0); CO2 25.5 mmol/L (21.0-32.0); CREATININE 1.1 mg/dL (0.55-1.02); Calcium 7.8 mg/dL (8.5-10.1); Chloride 102 mmol/L (98-107); Estimated GFR 66.37 (mL/min/1.73m2); Glucose 176 mg/dL (74-106); Magnesium 1.7 mg/dL (1.8-2.4); Potassium 4.1 mmol/L (3.5-5.1); Sodium 135 mmol/L (136-145); Total Protein 5.7 g/dL (6.4-8.2)
--- NOTE | 2021-11-28 09:13 | INITIAL_ITS ---
- If Service Date Differs Date of service: 11/28/21 Time of Service: 09:14 Care Management Initial Assess REASON FOR HOSPITALIZATION:: Multifocal Pneumonia, IVDU PAST MEDICAL HISTORY/PAST SURGICAL HISTORY:: Medical History . ADHD. Alcohol abuse. Amputation of right foot. COVID-19 virus infection. Depression. difficulty bonding with 2nd child. child removed from her custody. was on Wellbutrin but had sz and not on meds at this time. has appt with counselor 03/2015. Effusion, right knee. Herpes, vulvar. History of depression. HSV infection. Hx of who one week after . ? HSV or H1N1 infection. Pt has been on prophylaxis with pregnancies. Hx of cocaine abuse. Paresthesia of both hands. Personality disorder. . examination or test, positive result. PTSD (post-traumatic stress disorder). Surgical History . Amputation. 12/23/16;[facility]; RIGHT BELOW THE KNEE. section (11/24/12). PCD @ 34w. [facility]. [id number]. [facility] [place]. Pt arrived in labor and declined SUN. Chad Lopez. PREVIOUS FUNCTIONAL STATUS/SOCIAL/FAMILY SUPPORTS:: Resides in [place], [place] with her mother. She is independent at baseline, with disability determination due to BKA. Denisse has been in and out of NPUUR recovery at this time; attached to maintenance program. CURRENT FUNCTIONAL STATUS:: Denisse is drowsy and resting. She has a significant medical and NUPUR history and often requires additional psychosocial support during hospitalizations. ADVANCE DIRECTIVES:: None on file. Has patient been provided with info about the portal/API?: Yes Did the patient sign up for the portal?: No CODE STATUS:: Full Code INSURANCE COVERAGE / FINANCIAL ISSUES:: Medicaid CURRENT HOME/COMMUNITY SERVICES/EQUIPMENT:: Opiate maintenance program: Methadone daily dosing. Wheelchair, tub seat/bench. PRIMARY CARE PHYSICIAN:: Ivonne Hampton POTENTIAL DISCHARGE NEEDS:: Resumption of NUPUR maintenance program. Follow up appointments. PATIENT/FAMILY EDUCATION NEEDS:: Review discharge instructions, discuss Ask Me Three. ANTICIPATED BARRIERS TO DISCHARGE:: None identified at this time. TRANSPORTATION:: Via private vehicle with family. PLAN:: Denisse continues to be treated with IV ABX, anticipate I&D consult and surgical consult, if needed. Methadone treatment continues while inpatient-last dose letter will be provided upon discharge for transition of care. She will follow up with community based providers and transport via private vehicle with family.
[2021-11-28 09:21] LABS: Absolute Lymphocyte Count 0.45 10^3/uL (1.2-3.4); Absolute Monocyte Count 0.23 10^3/uL (0.1-0.8); Absolute Neutrophil Count 3.04 10^3/uL (1.2-6.7); Bands % 5; Metamyelocytes % 1
[2021-11-28 09:22] LABS: C-Reactive Protein > 25.00 mg/dL (0.0-0.3); Diff Comment Manual Differential; Hypochromasia 2+
[2021-11-28 09:28] LABS: Procalcitonin 20.7 ng/mL
[2021-11-28] MEDS: CEFEPIME 2 GM in Normal Saline 100 ML IVPB ×2 (09:43→19:58)
[2021-11-28] MEDS: VANCOMYCIN 1,000 MG in Normal Saline 250 ML 167 MG IVPB ×2 (11:15→21:06)
[2021-11-28] MEDS: OLANZapine 5 MG TAB PO ×2 (11:15→21:07)
[2021-11-28] MEDS: Heparin 5,000 UNITS/ML VIAL 5000 UNITS SC (14:38)
--- NOTE | 2021-11-28 14:42 | DI.US_ITS ---
APPROVED REPORT EXAM: Comprehensive 2D, Doppler, and color-flow Echocardiogram Patient Location: In-Patient Room/Bed: 217 Program Review Director: Mary Felix RDCS (AE) Indications: Murmur with bacteremia Other Information Study Quality: Adequate. Technically limited study due to inability to position patient exam done sup ine bedside. Conclusion Normal left ventricular wall thickness and chamber size. Estimated ejection fraction is 60 to 65%. Wall motion is normal Normal right ventricular size and systolic function Both atria are normal in size Tricuspid valve leaflets appear thickened with probable vegetation Mild tricuspid regurgitation, 2 jets There are no additional valvular abnormalities Wall motion Left Ventricle The left ventricle is normal size. The left ventricular systolic function is normal. The left ventric ular ejection fraction is within the normal range. There is normal left ventricular wall thickness. T here is normal LV segmental wall motion. There is no ventricular septal defect visualized. LVEF is 60 -65%. Right Ventricle The right ventricle is normal size. The right ventricular systolic function is normal. The RVSP is 27 .6mmHg. Atria The left atrium size is normal. The right atrium size is normal. The interatrial septum is intact wit h no evidence for an atrial septal defect. Aortic Valve The aortic valve is normal in structure. Aortic valve is trileaflet. There is no aortic valvular sten osis. No aortic regurgitation is present. Mitral Valve The mitral valve is normal in structure. No evidence of mitral valve stenosis. Trace to mild mitral r egurgitation. Tricuspid Valve The tricuspid valve is appears thickened There is no tricuspid valve stenosis. Mild tricuspid regurgi tation. 2 separate jets Probable tricuspid valve vegetation Pulmonic Valve The pulmonary valve is normal in structure. There is no pulmonic valvular stenosis. There is no pulmo sharron valvular regurgitation. Great Vessels The aortic root is normal in size. The ascending aorta is normal in size. Aortic arch is normal in ca liber. IVC is normal in size and collapses >50% with inspiration. Pericardium There is no pericardial effusion. 2D Dimensions IVSD d PLAX 0.75 cm F: 0.6-1.0 LV Vol A2C d MOD 137.0 mL LVPW d PLAX 0.82 cm F: 0.6 - 1.0 LV Vol A4C d MOD 124.9 mL LVID d PLAX 5.41 cm F: 3.8 - 5.2 LA vol/ BSA A2C s A-L 18.2 mL/m2 LVDs 3.65 cm F: 2.2 - 3.5 LA vol/ BSA A4C s A-L 22.2 mL/m2 Ao Root d 2.64 cm F: 2.7 - 3.3 LA Vol/ BSA Biplane s A-L 20.7 mL/m2 Ao Asc Diam d 2.53 cm F: 2.3 - 3.1 LA Area A4C s MOD 15.02 cm2 LV EF Teichholz 59.5 % LA Area A2C s MOD 13.19 cm2 LVEF (Pruett's) 62.17 % F: 54 - 74 LV EF A4C MOD 65.5 % LV Volume 103.77 mL F: 46 - 106 LV EF A2C MOD 59.5 % LV Volume Index 59.63 mL/m2 F: 29 - 61 LV EF Biplane MOD 62.2 % LV Vol Biplane MOD 131.8 mL SV 81.93 mL FS 31.90 % SV Index 47.08 mL/m2 M-Mode TAPSE 2.85 cm (M/F) >1.7 LV Diastology MV E' medial 0.189 (>0.07 m/s) E/A Ratio 1.4 LV E/e MED 5.65 (<14) MV E Vmax 1.08 (0.4-1.3 m/s) MV E' lateral 0.200 (>0.1 m/s) MV A Vmax 0.75 (0.4-1.3 m/s) LV E/e LAT 5.35 (<14) MV E/A Ratio 1.40 MV E/E' medial 5.69 MV E/E' lateral 5.38 Aortic Valve LVOT Area 3.28 cm2 AoV Area Vmax 2.58 cm2 LVOT Vmax 1.23 m/s AoV Area/ BSA (Vmax) 1.48 cm2/m2 LVOT Mean Bhanu. 0.79 m/s J CARLOS Mean Bhanu. 2.20 cm2 LVOT Peak Grad 6.1 mmHg J CARLOS Mean Bhanu. Index 1.26 cm2/m2 LVOT Mean Grad 2.9 mmHg LVOT VTI 0.210 m LVOT Diam s 2.00 cm AoV Vmax 1.56 m/s Velocity Ratio 0.78 AoV Mean Bhanu. 1.17 m/s AoV Peak Grad 9.8 mmHg LVOT SV 68.96 mL AoV Mean Grad 6.1 mmHg AoV VTI 0.258 m AoV Area VTI 2.68 cm2 AoV Area/ BSA (VTI) 1.54 cm/m2 Mitral Valve MV DT 204 (160-240 msec) MV PHT 59 msec MV Area PHT 3.71 cm2 MV VTI 0.305 m MV Area VTI 2.26 (4.0-6.0 cm2) Pulmonary Valve PV Vmax 1.28 (0.5-1.5 m/s) RVOT Peak Gr. 3.79 mmHg PV Peak Grad 6.5 mmHg RVOT Mean Gr. 2.20 mmHg PV Mean Grad 3.3 mmHg RVOT VTI 0.168 m PV VTI 0.188 m RVOT Vmax 0.97 m/s Tricuspid Valve TR Peak Grad 24.6 mmHg TR Vmax 2.48 m/s RA Pressure 3.00 mmHg RVSP (TR) 27.6 mmHg
--- NOTE | 2021-11-28 18:20 | DI.RAD_ITS ---
Exam(s) XR SHOULDER RT COMPLETE 2+V EXAM: XR SHOULDER RT COMPLETE 2+V CLINICAL HISTORY: R shoulder pain - ?septic shoulder. TECHNIQUE: 2D digital imaging was performed. Five views. COMPARISON: CR,XR XR CHEST 1V IN DI DEPT from 11/27/2021 FINDINGS: BONES: No acute fracture is present. No bony destructive lesion is seen. JOINTS: No dislocation present. SOFT TISSUE: Normal. No abnormal gas collection or foreign body. Mild patchy nodular infiltrates vi sible in the right upper lobe. IMPRESSION: Unremarkable radiographs of the right shoulder. DATA REPOSITORY: RADIATION DOSE DELIVERED:
--- NOTE | 2021-11-28 18:28 | DI.VRAD_ITS ---
PROCEDURE INFORMATION: Exam: XR Right Shoulder Exam date and time: 11/28/2021 6:15 PM Age: 36 years old Clinical indication: Other: R shoulder pain - ? septic shoulder TECHNIQUE: Imaging protocol: Radiologic exam of the Right shoulder. Views: 2 or more views. COMPARISON: XR CHEST 1V IN DI DEPT 11/27/2021 5:17 PM FINDINGS: Bones/joints: Normal. Soft tissues: Normal. IMPRESSION: No acute findings. Dictated and Authenticated by: Sean Lopez MD. Ordering:LOGAN Bowman MD
[2021-11-28] MEDS: Lidocaine 5% Patch 2 PATCH TP (18:33)
--- NOTE | 2021-11-28 19:33 | W.PM.PROGNOT ---
Date of Service Date of service: 11/28/21 Time of Service: 17:00 Assessment and Plan Assessment and plan (1) Sepsis: Status: Acute Assessment and plan: Due to bacteremia and suspected endocarditis as well as pneumonia, present on admission. Blood cultures positive for GPCs (only 2 bottles collected on admission). Repeat blood cultures done this morning. Echo suggestive of tricuspid valve vegetation. Await blood culture results. Continue empiric vancomycin/cefepime. Trend lactates. (2) Endocarditis: Status: Acute Assessment and plan: As above (3) Pneumonia: Start date: 11/27/21 Status: Acute Assessment and plan: as above (4) Bacteremia: Start date: 11/27/21 Status: Acute Assessment and plan: As above (5) Intractable low back pain: Start date: 11/27/21 Status: Acute Assessment and plan: LUmbar and thoracic MRIs ruled out epidural abscesses or vertebral osteomyelitis. However, given R shoulder and neck discmofort, we will also obtain cervical and brain MRis. Will add lidocaine patches for pain control. (6) Hyponatremia: Start date: 11/27/21 Status: Acute Assessment and plan: Improved with IV hydration overnight. IVF d/c'ed. (7) Opioid dependence: Status: Chronic Assessment and plan: Continue methadone. (8) ADHD, hyperactive-impulsive type: Status: Chronic Assessment and plan: methylphenidate held due to reports of misuse in the room. At this point, the patient specifically told me not to talk to her PCP about ADHD medication choices. Will abstain from all ADHD medications at this time. (9) Mitral regurgitation: Status: Chronic Assessment and plan: Not explicitely mentioned on the echocardiogram today.. (10) DVT prophylaxis: Status: Acute Assessment and plan: SC heparin (11) Discharge planning issues: Status: Acute Assessment and plan: Full code Continues to require hospitalization Subjective Subjective Interval history since last seen: Denisse states that her R shoulder now hurts in addition to the lower back pain she has been having and she has a hard time elevating her R arm. She states that the pain travels down her shoulder into her arm. She endorsed neck pain to nursing today. She denies chest pain. States it hurts to take a deep breath. She blames it on pneumonia. She denies smoking anything but cigarettes. Exam Narrative Exam Narrative: General: Pleasant female who is eating dinner, A&Ox3, appears distracted HEENT: EOMI, MMM Heart: RRR, + ENID, tachycardic Lungs: CTAB Abdomen: soft, nontender, nondistended Extremities: S/p R BKA; L foot slightly swollen, nontender Objective Last Vital Signs Temp 36.6 C 11/28/21 17:12 Pulse 91 H 11/28/21 15:38 Resp 19 11/28/21 15:38 BP 122/68 11/28/21 15:38 Pulse Ox 96 11/28/21 15:38 Laboratory Results - last 24 hr 11/28/21 11/28/21 11/28/21 05:35 08:35 08:35 WBC 3.75 L RBC 3.41 L Hgb 9.2 L Hct 27.9 L MCV 82 MCH 27.0 MCHC 33.0 RDW 17.1 H Plt Count 134 MPV 10.9 Immature Gran % See Differential Neutrophils % 76.0 Band Neutrophils % 5 Lymphocytes % 12.0 Monocytes % 6.0 Eosinophils % 0.0 Basophils % 0.0 Metamyelocytes % 1 Nucleated RBC % 0.0 Absolute Neutrophils 3.04 Absolute Lymphocytes 0.45 L Absolute Monocytes 0.23 Absolute Eosinophils 0.00 Absolute Basophils 0.00 RBC Morphology See Below Hypochromasia 2+ PT 11.0 INR 1.1 VBG Lactate Sodium Cancelled Potassium Cancelled Chloride Cancelled Carbon Dioxide Cancelled Anion Gap Cancelled BUN Cancelled Creatinine Cancelled Est GFR (CKD-EPI 2020) Cancelled Glucose Cancelled Calcium Cancelled Magnesium Cancelled Total Bilirubin Cancelled AST Cancelled ALT Cancelled Alkaline Phosphatase Cancelled C-Reactive Protein Total Protein Cancelled Albumin Cancelled Procalcitonin 11/28/21 11/28/21 11/28/21 08:35 08:35 08:35 WBC RBC Hgb Hct MCV MCH MCHC RDW Plt Count MPV Immature Gran % Neutrophils % Band Neutrophils % Lymphocytes % Monocytes % Eosinophils % Basophils % Metamyelocytes % Nucleated RBC % Absolute Neutrophils Absolute Lymphocytes Absolute Monocytes Absolute Eosinophils Absolute Basophils RBC Morphology Hypochromasia PT INR VBG Lactate 3.5 H* Sodium 135 L Potassium 4.1 Chloride 102 Carbon Dioxide 25.5 Anion Gap 7.5 BUN 13 Creatinine 1.1 H Est GFR (CKD-EPI 2020) 66.37 Glucose 176 H Calcium 7.8 L Magnesium 1.7 L Total Bilirubin 0.2 AST 10 L ALT 18 Alkaline Phosphatase 100 C-Reactive Protein > 25.00 H Total Protein 5.7 L Albumin 1.8 L Procalcitonin 20.7 Objective Narrative Objective Narrative: Echo; Normal left ventricular wall thickness and chamber size.? Estimated ejection fraction is 60 to 65%.? Wall motion is normal Normal right ventricular size and systolic function Both atria are normal in size Tricuspid valve leaflets appear thickened with probable vegetation Mild tricuspid regurgitation, 2 jets There are no additional valvular abnormalities XR R shoulder: No acute findings.
[2021-11-28] MEDS: Normal Saline 500 ML 30 ML IV (19:58)
[2021-11-28] MEDS: Nicotine 14 MG/24 HR PATCH TD (19:59)
[2021-11-28] MEDS: Mirtazapine 15 MG TAB 30 MG PO (21:06)
[2021-11-29] VITALS (7 sets, daily range): BP systolic 110–135; BP diastolic 65–86; PULSE 76–109; RESP 16–20; TEMP 36.1–39.1; O2SAT 94–100
--- NOTE | 2021-11-29 | DI.MRI_ITS ---
Exam(s) MR CERVICAL SPINE WO/W EXAM: MR CERVICAL SPINE WO/W CLINICAL HISTORY: bacteremia, neck pain TECHNIQUE: Multiplanar multisequence MRI of the cervical spine was performed. CONTRAST MATERIAL: IV Contrast: 12 ML of Dotarem contrast administered. COMPARISON: CR,XR XR CHEST 1V IN DI DEPT from 11/27/2021 FINDINGS: BONES: Vertebral body heights are maintained. Intervertebral disc spaces are normal. Alignment is nor mal. In the posterior, left side of the T5 vertebral body, there is a small focus of high signal on T1 weighted images which shows suppression on fat suppressed sequences consistent with a small iliana ioma. CERVICAL CORD: Craniovertebral junction is unremarkable. The cervical cord is normal size and signal intensity. No lesion is present. SOFT TISSUES: Unremarkable. ENHANCEMENT: No suspicious enhancement identified. C2-3: No disc herniation or bulge is identified. C3-4: No disc herniation or bulge is identified. C4-5: No disc herniation or bulge is identified. C5-6: No disc herniation or bulge is identified. C6-7: No disc herniation or bulge is identified. C7-T1: No disc herniation or bulge is identified. IMPRESSION: Unremarkable MRI of the cervical spine. DATA REPOSITORY:
--- NOTE | 2021-11-29 | DI.MRI_ITS ---
Exam(s) MR BRAIN WO/W EXAM: MR BRAIN WO/W CLINICAL HISTORY: AMS, bacteremia. TECHNIQUE: Multiplanar multisequence MRI of the brain was performed. CONTRAST MATERIAL: IV Contrast: 12 ML of Dotarem contrast administered. COMPARISON: No exams were available for comparison FINDINGS: VENTRICLES AND EXTRA AXIAL SPACES: Normal in size and morphology for the patient's age. HEMORRHAGE: None. CEREBRAL PARENCHYMA: No focus of restricted diffusion to suggest acute infarct. No space-occupying le merly identified. MIDLINE SHIFT: None. BRAINSTEM/CEREBELLUM: Normal. CALVARIUM: Normal. ENHANCEMENT: No suspicious enhancement identified. VISUALIZED PARANASAL SINUSES/MASTOIDS: Clear. OTHER FINDINGS: None. IMPRESSION: Unremarkable MRI of the brain. DATA REPOSITORY:
[2021-11-29] MEDS: Ketorolac 15 MG/ML VIAL IVP ×4 (01:30→21:02)
[2021-11-29] MEDS: OLANZapine 5 MG TAB PO ×2 (01:31→21:02)
[2021-11-29] MEDS: VANCOMYCIN 1,000 MG in Normal Saline 250 ML 167 MG IVPB (04:35)
[2021-11-29] MEDS: Normal Saline Flush 10 ML SYR IVP ×3 (08:05→12:22)
[2021-11-29] MEDS: Nicotine 14 MG/24 HR PATCH TD (08:06)
[2021-11-29] MEDS: DULoxetine 30 MG CAP PO (08:07)
[2021-11-29] MEDS: Gabapentin 800 MG TAB PO ×4 (08:07→19:32)
[2021-11-29] MEDS: CEFEPIME 2 GM in Normal Saline 100 ML IVPB (08:07)
[2021-11-29] MEDS: Patch Removal 2 EACH TP (08:19)
[2021-11-29 08:38] LABS: Abs Immature Grans 0.05 10^3/uL (0.0-0.06); Absolute Basophil Count 0.02 10^3/uL (0.0-0.2); Absolute Eosinophil Count 0.09 10^3/uL (0.0-0.7); Absolute Lymphocyte Count 0.87 10^3/uL (1.2-3.4); Absolute Monocyte Count 0.59 10^3/uL (0.1-0.8); Absolute Neutrophil Count 5.03 10^3/uL (1.2-6.7); Basophils % 0.3; Eosinophils % 1.4; HCT 24.7 % (36.0-46.0); HGB 8.1 g/dL (11.2-15.7); Immature Grans % 0.8; Lymphocytes % 13.1; MCH 26.6 pg (27.0-33.0); MCHC 32.8 % (32.0-36.0); MCV 81 fL (80-95); Monocytes % 8.9; Neutrophils % 75.5; Platelet Count 196 10^3/uL (130-400); RBC 3.05 10^6/uL (3.93-5.22); RDW 17.2 % (11.7-14.6); WBC 6.65 10^3/uL (4.4-10.8)
[2021-11-29] MEDS: Acetaminophen 325 MG TAB PO ×3 (08:46→19:31)
[2021-11-29] MEDS: Methadone Liquid 10 MG/ML 125 MG PO (08:47)
[2021-11-29 08:55] LABS: Anion Gap 6.1 mmol/L (3-11); BUN 11 mg/dL (7-18); C-Reactive Protein 24.51 mg/dL (0.0-0.3); CO2 27.9 mmol/L (21.0-32.0); CREATININE 0.8 mg/dL (0.55-1.02); Calcium 8.3 mg/dL (8.5-10.1); Chloride 101 mmol/L (98-107); Estimated GFR 97.26 (mL/min/1.73m2); Glucose 85 mg/dL (74-106); Magnesium 1.9 mg/dL (1.8-2.4); Potassium 4.9 mmol/L (3.5-5.1); Sodium 135 mmol/L (136-145)
[2021-11-29] MEDS: LORazepam 20 MG/10 ML VIAL IVP (11:19)
[2021-11-29 13:09] LABS: Vancomycin, Trough 12.3 ug/mL (10.0-20.0)
[2021-11-29] MEDS: Heparin 5,000 UNITS/ML VIAL 5000 UNITS SC ×2 (14:01→21:02)
[2021-11-29] MEDS: VANCOMYCIN 1,250 MG in Normal Saline 250 ML 166.667 MG IVPB (15:01)
--- NOTE | 2021-11-29 16:19 | CMPROGNOTE_ITS ---
- If Service Date Differs Date of service: 11/29/21 Time of Service: 16:19 Care Management Progress Note S/O: Denisse remains inpatient, being treated for sepsis due to bacteremia and suspected endocarditis. Her boyfriend continues to visit, and she has been appropriate in presentation per report. CM continues to follow. A: 36 year old female admitted to [facility] 11/27/21 for multi-focal pneumonia, IVDU P: Denisse continues to be treated with IV ABX, anticipate I&D consult and surgical consult, if needed. Methadone treatment continues while inpatient-last dose letter will be provided upon discharge for transition of care. She will follow up with community based providers and transport via private vehicle with family.
[2021-11-29 17:08] LABS: HCG Qual (Urine) Negative
[2021-11-29] MEDS: Lidocaine 5% Patch 2 PATCH TP (17:25)
--- NOTE | 2021-11-29 19:30 | W.PM.PROGNOT ---
Date of Service Date of service: 11/29/21 Time of Service: 17:50 Assessment and Plan Assessment and plan (1) Sepsis: Status: Acute Assessment and plan: Due to MRSA bacteremia and suspected tricuspid valve endocarditis as well as pneumonia, present on admission. Blood cultures 11/27/21 (only 1 set collected): MRSA Blood cultures 11/28/21 (3/4 bottles): MRSA Will repeat blood cultures tomorrow am. Continue vancomycin. D/c cefepime. (2) Endocarditis: Status: Acute Assessment and plan: As above (3) Pneumonia: Status: Acute Assessment and plan: as above (4) Bacteremia: Status: Acute Assessment and plan: As above (5) Intractable low back pain: Status: Acute Assessment and plan: MRI brain, c-spine, lumbar and thoracic MRIs ruled out epidural abscesses or vertebral osteomyelitis. Continue tylenol, prn toradol, lidocaine patches. (6) Hyponatremia: Status: Acute Assessment and plan: Stable off of IVF. Continue to monitor. (7) Opioid dependence: Status: Chronic Assessment and plan: Continue methadone. (8) ADHD, hyperactive-impulsive type: Status: Chronic Assessment and plan: methylphenidate held due to reports of misuse in the room. At this point, the patient specifically told me not to talk to her PCP about ADHD medication choices. Will abstain from all ADHD medications at this time. (9) Mitral regurgitation: Status: Chronic Assessment and plan: Not explicitly mentioned on the echocardiogram (10) DVT prophylaxis: Status: Acute Assessment and plan: SC heparin (11) Discharge planning issues: Status: Acute Assessment and plan: Full code Continues to require hospitalization Subjective Subjective Interval history since last seen: States R shoulder feels better. Does not feel well overall. Still febrile most of the day. Denies dizziness,chest pain, shortness of breath, nausea. States it hurts to take a deep breath. Exam Narrative Exam Narrative: General: Pleasant female who is A&Ox3, appears distracted HEENT: EOMI, MMM Heart: RRR, + ENID, Lungs: CTAB Abdomen: soft, nontender, nondistended Extremities: S/p R BKA; L foot slightly swollen, nontender; improved ROM R shoulder Objective Last Vital Signs Temp 38.3 C H 11/29/21 15:23 Pulse 94 H 11/29/21 15:23 Resp 20 11/29/21 15:23 BP 121/66 11/29/21 15:23 Pulse Ox 96 11/29/21 15:23 Laboratory Results - last 24 hr 11/28/21 11/29/21 11/29/21 19:33 05:35 08:30 WBC 6.65 RBC 3.05 L Hgb 8.1 L Hct 24.7 L MCV 81 MCH 26.6 L MCHC 32.8 RDW 17.2 H Plt Count 196 MPV 11.0 Immature Gran % 0.8 Neutrophils % 75.5 Lymphocytes % 13.1 Monocytes % 8.9 Eosinophils % 1.4 Basophils % 0.3 Nucleated RBC % 0.0 Absolute Neutrophils 5.03 Absolute Lymphocytes 0.87 L Absolute Monocytes 0.59 Absolute Eosinophils 0.09 Absolute Basophils 0.02 VBG Lactate Cancelled Sodium 135 L Potassium 4.9 Chloride 101 Carbon Dioxide 27.9 Anion Gap 6.1 BUN 11 Creatinine 0.8 Est GFR (CKD-EPI 2020) 97.26 Glucose 85 Calcium 8.3 L Magnesium 1.9 C-Reactive Protein 24.51 H Urine HCG, Qual Vancomycin Trough 11/29/21 11/29/21 12:45 16:40 WBC RBC Hgb Hct MCV MCH MCHC RDW Plt Count MPV Immature Gran % Neutrophils % Lymphocytes % Monocytes % Eosinophils % Basophils % Nucleated RBC % Absolute Neutrophils Absolute Lymphocytes Absolute Monocytes Absolute Eosinophils Absolute Basophils VBG Lactate Sodium Potassium Chloride Carbon Dioxide Anion Gap BUN Creatinine Est GFR (CKD-EPI 2020) Glucose Calcium Magnesium C-Reactive Protein Urine HCG, Qual Negative Vancomycin Trough 12.3
[2021-11-29] MEDS: Mirtazapine 15 MG TAB 30 MG PO (21:02)
[2021-11-29] MEDS: VANCOMYCIN/WATER (PEG) 1.25 GM/250 ML BAG IVPB (21:28)
[2021-11-30] VITALS (12 sets, daily range): BP systolic 104–150; BP diastolic 60–83; PULSE 91–107; RESP 17–22; TEMP 36.7–39.9; O2SAT 94–98
[2021-11-30] MEDS: Ketorolac 15 MG/ML VIAL IVP ×3 (02:27→15:47)
[2021-11-30] MEDS: Acetaminophen 325 MG TAB PO ×4 (02:27→17:59)
[2021-11-30] MEDS: VANCOMYCIN/WATER (PEG) 1.25 GM/250 ML BAG IVPB ×3 (06:04→21:46)
[2021-11-30] MEDS: Patch Removal 2 EACH TP (06:05)
[2021-11-30] MEDS: Heparin 5,000 UNITS/ML VIAL 5000 UNITS SC ×3 (06:14→22:00)
[2021-11-30 06:43] LABS: Abs Immature Grans 0.05 10^3/uL (0.0-0.06); Absolute Basophil Count 0.03 10^3/uL (0.0-0.2); Absolute Eosinophil Count 0.09 10^3/uL (0.0-0.7); Absolute Lymphocyte Count 0.67 10^3/uL (1.2-3.4); Absolute Monocyte Count 0.57 10^3/uL (0.1-0.8); Absolute Neutrophil Count 5.84 10^3/uL (1.2-6.7); Basophils % 0.4; Eosinophils % 1.2; HCT 22.1 % (36.0-46.0); HGB 7.3 g/dL (11.2-15.7); Immature Grans % 0.7; Lymphocytes % 9.2; MCH 26.7 pg (27.0-33.0); MCV 81 fL (80-95); MPV 10.7 fL (8.0-11.0); Monocytes % 7.9; Neutrophils % 80.6; Platelet Count 204 10^3/uL (130-400); RBC 2.73 10^6/uL (3.93-5.22); RDW 17.5 % (11.7-14.6); RDW-SD 51.6 fL; WBC 7.25 10^3/uL (4.4-10.8)
[2021-11-30 07:08] LABS: Anion Gap 7.8 mmol/L (3-11); BUN 11 mg/dL (7-18); C-Reactive Protein 22.58 mg/dL (0.0-0.3); CO2 25.2 mmol/L (21.0-32.0); CREATININE 0.8 mg/dL (0.55-1.02); Calcium 8.2 mg/dL (8.5-10.1); Chloride 100 mmol/L (98-107); Estimated GFR 97.26 (mL/min/1.73m2); Glucose 166 mg/dL (74-106); Magnesium 1.5 mg/dL (1.8-2.4); Potassium 4.8 mmol/L (3.5-5.1); Sodium 133 mmol/L (136-145)
[2021-11-30 07:28] LABS: Procalcitonin 7.1 ng/mL
[2021-11-30] MEDS: OLANZapine 5 MG TAB PO ×2 (08:30→20:38)
[2021-11-30] MEDS: Gabapentin 800 MG TAB PO ×4 (08:30→20:29)
[2021-11-30] MEDS: DULoxetine 30 MG CAP PO (08:30)
[2021-11-30] MEDS: Methadone Liquid 10 MG/ML 125 MG PO (08:31)
[2021-11-30] MEDS: Normal Saline Flush 10 ML SYR IVP ×3 (09:13→21:42)
--- NOTE | 2021-11-30 12:16 | IN_ITS ---
PT Notes Visit Reasons: Multifocal Pneuomonia,IVDU Physical Therapy Inpatient Initial Evaluation Date: 11/30/21 Referring Doctor: Gracie Caro MD PT Orders: PT CONSULT: Limited Ability Precautions: Fall. Standard. R BKA. Patient Profile/Admitting Diagnosis: Denisse is 36 yo female that presented to the ER on 11/27 for malaise. She had a high fever and was admitted. Patient is starting to feel better with malaise today. Reports back pain limiting her ambulation. PMHX: See EMR Social History/Home Situation: Lives with mom, [address] and 2 level home. Independent at baseline with prosthetic and no use of AD. Equipment Owned/DME: None Subjective: Cleared by nursing to see patient and patient is agreeable to PT. Patient is standing in bathroom with FWW and right leg draped over the front while combing hair. She is independent in room. Notable swelling throughout b priscilla. This limits ability to wear prosthetic or get cast for a new one. Objective: General Observation: Easily distracted, cooperative Mental Status: A&O x3 Pain: 7/10 back ROM: Right Upper Extremity: Shoulder Flexion WFL. Shoulder abduction WFL. Elbow flexion WFL. Wrist flexion WFL. Opening and closing of hand WFL. Left Upper Extremity: Shoulder Flexion WFL. Shoulder abduction WFL. Elbow flexion WFL. Wrist flexion WFL. Opening and closing of hand WFL. Right Lower Extremity: Hip flexion WFL. Hip abduction WFL. Knee flexion WFL. Knee extension WFL. Left Lower Extremity: Hip flexion WFL. Hip abduction WFL. Knee flexion WFL. Knee extenison WFL. Ankle dorsiflexion WFL. Ankle plantarflexion WFL. Strength: Right Upper Extremity: Shoulder flexors 5/5. Shoulder abductors 5/5. Elbow flexors 5/5. Elbow extensors 5/5. Outbound Sales Advisor strong. Left Upper Extremity: Shoulder flexors 5/5. Shoulder abductors 5/5. Elbow flexors 5/5. Elbow extensors 5/5. Outbound Sales Advisor strong. Right Lower Extremity: Hip flexors 5/5. Knee flexors 5/5. Knee extensors 5/5. Ankle dorsiflexors 5/5. Ankle plantarflexors 5/5. Left Lower Extremity: Hip flexors 5/5. Knee flexors 5/5. Knee extensors 5/5. Ankle dorsiflexors 5/5. Ankle plantarflexors 5/5. Sensation: Intact as to pain and pressure on bilateral lower extremities. Bed Mobility/Transfers: Supine to sit: Min A Sit to supine: Independent Sit to stand: Independent Stand to sit: Independent Gait: Ambulated 10ft with FWW hopping on left LE, but reports pain. Stairs: Not assessed Balance: Static Sitting: Normal Dynamic Sitting: Normal Static Standing: Normal Dynamic Standing: Normal Therapeutic Exercise (00946) for ROM, strength, and endurance: 20 minutes Light STM to back seated Supine SKTC stretch Supine trunk rotation stretch Seated cat/cow stretch Seated forward reach stretch Provided handout with additional back exercises Instructed in use of loaner home TENs unit to help manage back pain (kai'ed by patient nurse and charge nurse) Special Tests: Mobility Limitations Standardized Measure [facility] AM-PAC 6 clicks Basic Mobility Inpatient Short Form: Raw Score: 18 CMS Score: 46% Informed Consent/Education: Patient instructed in purpose of PT consult and plan of care. Assessment: Patient presents with clinical signs and symptoms consistent with current/admitting diagnoses that have resulted to mobility limitations, gait instability, generalized weakness, and impairment of motor control as demonstrated by the following impairment level findings: 1. Impaired activity tolerance due to back pain Impairments are contributing to the following functional limitations: 1. Increased dependence with bed mobility skills 2. Inability to safely ambulate without assistive device and physical assistance 3. Increase completion time for mobility ADL performance 4. Increased fall risk 5. Inability to negotiate steps alone safely She reports light soft tissue mobilization of back feels good. Stretches do help some but can be irritating. Instructed in use of home TENS unit loaned during current admission. She reports this feels quite good on back as well. Patient is assessed as a Low complexity based on the following: History: 36 year old female with impairment level findings, functional limitations, and past medical history as indicated above Examination: Demonstrable impairment in strength, balance, and mobility level with underlying impairments and functional limitations as documented above Presentation: Stable Decision Making: Low complexity Goals: Goals x1 week 1. Supine-Sit: independent 2. Sit-Supine: independent 3. Sit-Stand: independent 4. Stand-Sit: independent 5. Bed-Chair: independent 6. Chair-Bed: independent 7. Independent gait on level surface with use of least restrictive device for at least 300 feet without report of pain nor dyspnea 8. Good static and dynamic standing balance/tolerance 9. Independent with home exercise program 10. Independent stair negotiation while holding onto bilateral rails for at least 10 steps without report of pain nor dyspnea Plan of Care/Treatment Plan: 1-2x/day, 7 days/week x1 week. Plan of care has been reviewed with the APPLIED ANTHROPOLOGIST providing the service under Physical Therapy direction. Initiate Physical Therapy intervention for strengthening, bed mobility, transfers, gait, stairs, balance training, and use of assistive device. Discharge Plan DISCHARGE RECOMMENDATIONS: Home with outpatient PT for back pain TREATMENT CODE/TIME: 11:45-12:25 (40 minutes), [id number], [id number] Thank you for the opportunity to participate in the care of this patient. Sherie Mosher, PT, DPT, OCS [facility] [place], [place]
[2021-11-30] MEDS: MAGNESIUM SULFATE 4 GM/100 ML BAG IVPB (12:38)
[2021-11-30 13:12] LABS: Vancomycin, Trough 16.9 ug/mL (10.0-20.0)
--- NOTE | 2021-11-30 17:59 | PGE_ITS ---
Date of Service Date of service: 11/30/21 Time of Service: 18:00 Assessment and Plan Assessment and plan (1) Sepsis: Status: Acute Assessment and plan: Due to MRSA bacteremia and suspected tricuspid valve endocarditis as well as pneumonia, present on admission. Blood cultures 11/27/21 (only 1 set collected): MRSA Blood cultures 11/28/21 (4/4 bottles): MRSA Blood cultures recollected today. Continue vancomycin. (2) Endocarditis: Status: Acute Assessment and plan: As above (3) Scalded skin syndrome: Status: Acute Assessment and plan: Continue vancomyicn. (4) Pneumonia: Status: Acute Assessment and plan: as above (5) Bacteremia: Status: Acute Assessment and plan: As above (6) Intractable low back pain: Status: Acute Assessment and plan: MRI brain, c-spine, lumbar and thoracic MRIs ruled out epidural abscesses or vertebral osteomyelitis. Continue tylenol, prn toradol, lidocaine patches. (7) Hyponatremia: Status: Acute Assessment and plan: Stable off of IVF. Continue to monitor. (8) Opioid dependence: Status: Chronic Assessment and plan: Continue methadone. (9) ADHD, hyperactive-impulsive type: Status: Chronic Assessment and plan: methylphenidate held initially due to reports of misuse in the room. We are resuming it, but administration will have to be supervised. (10) Mitral regurgitation: Status: Chronic Assessment and plan: Not explicitly mentioned on the echocardiogram (11) DVT prophylaxis: Status: Acute Assessment and plan: SC heparin (12) Discharge planning issues: Status: Acute Assessment and plan: Full code Continues to require hospitalization Subjective Subjective Interval history since last seen: Ms Mcdermott states that her hands started peeling and it's driving her nuts. She would like to have ritalin resumed. She takes 20 mg TID. Denies dizzines, chest pain, shortness of breath, nausea. Does point out that both of her legs are very swollen. Denies urinary symptoms currently. Exam Narrative Exam Narrative: General: Pleasant female who is A&Ox3, appears distracted HEENT: EOMI, MMM Heart: RRR, + ENID, Lungs: CTAB Abdomen: soft, nontender, nondistended Extremities: S/p R BKA; BLEs edematous; scalded skin appearance of bilateral hands Objective Last Vital Signs Temp 38.3 C H 11/30/21 16:56 Pulse 91 H 11/30/21 15:20 Resp 19 11/30/21 15:20 BP 126/75 11/30/21 15:20 Pulse Ox 98 11/30/21 15:20 Laboratory Results - last 24 hr 11/27/21 11/30/21 11/30/21 14:28 05:55 05:55 WBC RBC Hgb Hct MCV MCH MCHC RDW Plt Count MPV Immature Gran % Neutrophils % Lymphocytes % Monocytes % Eosinophils % Basophils % Nucleated RBC % Absolute Neutrophils Absolute Lymphocytes Absolute Monocytes Absolute Eosinophils Absolute Basophils Sodium 133 L Potassium 4.8 Chloride 100 Carbon Dioxide 25.2 Anion Gap 7.8 BUN 11 Creatinine 0.8 Est GFR (CKD-EPI 2020) 97.26 Glucose 166 H Calcium 8.2 L Magnesium 1.5 L C-Reactive Protein 22.58 H Procalcitonin 7.1 Urine Color Yellow Urine Clarity Sl Cloudy Urine pH 7.5 Ur Specific [place] 1.020 Urine Protein Negative Urine Ketones Negative Urine Blood Trace-intact H Urine Nitrite Negative Urine Bilirubin Negative Urine Urobilinogen 0.2 Ur Leukocyte Esterase Negative Urine RBC 0-2 Urine WBC Negative Ur Epithelial Cells Rare Urine Crystals Few Amorphous Urine Bacteria Moderate Urine Casts Negative Urine Mucus Negative Ur Culture Indicated? Yes Urine Glucose Negative Vancomycin Trough 11/30/21 11/30/21 05:55 12:54 WBC 7.25 RBC 2.73 L Hgb 7.3 L Hct 22.1 L MCV 81 MCH 26.7 L MCHC 33.0 RDW 17.5 H Plt Count 204 MPV 10.7 Immature Gran % 0.7 Neutrophils % 80.6 Lymphocytes % 9.2 Monocytes % 7.9 Eosinophils % 1.2 Basophils % 0.4 Nucleated RBC % 0.0 Absolute Neutrophils 5.84 Absolute Lymphocytes 0.67 L Absolute Monocytes 0.57 Absolute Eosinophils 0.09 Absolute Basophils 0.03 Sodium Potassium Chloride Carbon Dioxide Anion Gap BUN Creatinine Est GFR (CKD-EPI 2020) Glucose Calcium Magnesium C-Reactive Protein Procalcitonin Urine Color Urine Clarity Urine pH Ur Specific [place] Urine Protein Urine Ketones Urine Blood Urine Nitrite Urine Bilirubin Urine Urobilinogen Ur Leukocyte Esterase Urine RBC Urine WBC Ur Epithelial Cells Urine Crystals Urine Bacteria Urine Casts Urine Mucus Ur Culture Indicated? Urine Glucose Vancomycin Trough 16.9
[2021-11-30] MEDS: Lidocaine 5% Patch 2 PATCH TP (18:07)
[2021-11-30] MEDS: Ibuprofen 800 MG TAB PO (20:29)
[2021-11-30] MEDS: Mirtazapine 15 MG TAB 30 MG PO (21:42)
[2021-11-30] MEDS: Normal Saline 500 ML 10 ML IV (21:44)
[2021-11-30] MEDS: ACETAMINOPHEN 1,000 MG/100 ML BTL 400 MG IVPB (23:36)
[2021-12-01] VITALS (9 sets, daily range): BP systolic 115–156; BP diastolic 72–98; PULSE 57–117; RESP 15–23; TEMP 35.8–39.2; O2SAT 93–99
[2021-12-01] MEDS: Patch Removal 2 EACH TP (01:00)
[2021-12-01] MEDS: Ibuprofen 600 MG TAB PO ×5 (03:29→20:31)
[2021-12-01] MEDS: Normal Saline Flush 10 ML SYR IVP ×2 (05:34→21:57)
[2021-12-01] MEDS: ACETAMINOPHEN 1,000 MG/100 ML BTL 400 MG IVPB (05:40)
[2021-12-01] MEDS: Heparin 5,000 UNITS/ML VIAL 5000 UNITS SC ×3 (05:49→22:00)
[2021-12-01] MEDS: VANCOMYCIN/WATER (PEG) 1.25 GM/250 ML BAG IVPB ×3 (06:28→21:58)
[2021-12-01 06:43] LABS: Abs Immature Grans 0.05 10^3/uL (0.0-0.06); Absolute Basophil Count 0.02 10^3/uL (0.0-0.2); Absolute Eosinophil Count 0.13 10^3/uL (0.0-0.7); Absolute Monocyte Count 0.74 10^3/uL (0.1-0.8); Absolute Neutrophil Count 4.77 10^3/uL (1.2-6.7); Basophils % 0.3; HCT 21.7 % (36.0-46.0); Immature Grans % 0.8; Lymphocytes % 13.6; MCH 26.2 pg (27.0-33.0); MCHC 32.3 % (32.0-36.0); MCV 81 fL (80-95); MPV 10.4 fL (8.0-11.0); Monocytes % 11.2; Neutrophils % 72.1; Platelet Count 206 10^3/uL (130-400); RBC 2.67 10^6/uL (3.93-5.22); RDW 17.2 % (11.7-14.6); RDW-SD 51.4 fL; WBC 6.61 10^3/uL (4.4-10.8)
[2021-12-01 06:59] LABS: BUN 11 mg/dL (7-18); C-Reactive Protein 21.85 mg/dL (0.0-0.3); CREATININE 0.7 mg/dL (0.55-1.02); Calcium 8.4 mg/dL (8.5-10.1); Chloride 104 mmol/L (98-107); Estimated GFR 114.16 (mL/min/1.73m2); Glucose 142 mg/dL (74-106); Iron 10 ug/dL (50-170); Potassium 4.7 mmol/L (3.5-5.1); Sodium 136 mmol/L (136-145); Total Iron Binding Capacity 164 ug/dL (250-450); Transferrin Sat 6 % (15-50)
[2021-12-01 07:23] LABS: Folate 6.9 ng/mL (8.6-20.0); Vitamin B12 1487 pg/mL (193-986)
[2021-12-01 07:29] LABS: Ferritin 193 ng/mL (8-252)
[2021-12-01] MEDS: DULoxetine 30 MG CAP PO (08:17)
[2021-12-01] MEDS: Methylphenidate 10 MG TAB 20 MG PO ×3 (08:18→20:31)
[2021-12-01] MEDS: Gabapentin 800 MG TAB PO ×4 (08:18→20:31)
[2021-12-01] MEDS: Furosemide 20 MG TAB PO (08:19)
[2021-12-01] MEDS: Methadone Liquid 10 MG/ML 125 MG PO (08:20)
[2021-12-01] MEDS: Furosemide 20 MG/2 ML VIAL IVP (09:29)
--- NOTE | 2021-12-01 11:29 | PT.INNT ---
PT Notes Visit Reasons: Multifocal Pneuomonia,IVDU This PT spoke with patient. She had just gotten out of tub, but has been independent with mobility. Back continues to hurt, but TENs unit is helping. No additional needs today. Will check in on tomorrow.
[2021-12-01] MEDS: Acetaminophen 325 MG TAB 650 MG PO ×2 (14:37→23:34)
--- NOTE | 2021-12-01 17:10 | W.PM.PROGNOT ---
Date of Service Date of service: 12/01/21 Time of Service: 17:10 Assessment and Plan Assessment and plan (1) Sepsis: Status: Acute Assessment and plan: Due to MRSA bacteremia and suspected tricuspid valve endocarditis as well as pneumonia, present on admission. Blood cultures 11/27/21 (only 1 set collected): MRSA Blood cultures 11/28/21 (4/4 bottles): MRSA Blood cultures 11/30/21 (2/2 bottles): gram positive cocci Continue vancomycin. Repeat blood cultues in AM (2) Endocarditis: Status: Acute Assessment and plan: As above (3) Scalded skin syndrome: Status: Acute Assessment and plan: Continue vancomyicn. (4) Pneumonia: Status: Acute Assessment and plan: as above (5) Bacteremia: Status: Acute Assessment and plan: As above (6) Intractable low back pain: Status: Acute Assessment and plan: MRI brain, c-spine, lumbar and thoracic MRIs ruled out epidural abscesses or vertebral osteomyelitis. Continue tylenol, prn ibuprofen, lidocaine patches. (7) Hyponatremia: Status: Acute Assessment and plan: Stable off of IVF. Continue to monitor. (8) Opioid dependence: Status: Chronic Assessment and plan: Continue methadone. (9) ADHD, hyperactive-impulsive type: Status: Chronic Assessment and plan: methylphenidate held initially due to reports of misuse in the room. We are resuming it, but administration will have to be supervised. (10) Mitral regurgitation: Status: Chronic Assessment and plan: Not explicitly mentioned on the echocardiogram (11) DVT prophylaxis: Status: Acute Assessment and plan: SC heparin (12) Discharge planning issues: Status: Acute Assessment and plan: Full code Continues to require hospitalization Subjective Subjective Patient reports: no new complaints, still having pain ( in back), tolerating a regular diet (poor appetite. Drinking fluids well) and fever; denies nausea or vomiting Exam Narrative Exam Narrative: General: Pleasant female who is A&Ox3, sitting on edge of bed. Conversant. HEENT: EOMI, MMM, sclera clear. Heart: RRR, + ENID, Lungs: CTAB Abdomen: soft, nontender, nondistended Extremities: S/p R BKA; BLEs edematous; scalded skin appearance of bilateral hands with edema. Objective Last Vital Signs Temp 39.2 C H 12/01/21 16:36 Pulse 112 H 12/01/21 16:36 Resp 15 12/01/21 16:36 BP 136/76 12/01/21 16:36 Pulse Ox 95 12/01/21 16:36 Laboratory Results - last 24 hr 12/01/21 12/01/21 12/01/21 05:40 05:40 05:40 WBC 6.61 RBC 2.67 L Hgb 7.0 L* Hct 21.7 L MCV 81 MCH 26.2 L MCHC 32.3 RDW 17.2 H Plt Count 206 MPV 10.4 Immature Gran % 0.8 Neutrophils % 72.1 Lymphocytes % 13.6 Monocytes % 11.2 Eosinophils % 2.0 Basophils % 0.3 Nucleated RBC % 0.0 Absolute Neutrophils 4.77 Absolute Lymphocytes 0.90 L Absolute Monocytes 0.74 Absolute Eosinophils 0.13 Absolute Basophils 0.02 Sodium 136 Potassium 4.7 Chloride 104 Carbon Dioxide 26.0 Anion Gap 6.0 BUN 11 Creatinine 0.7 Est GFR (CKD-EPI 2020) 114.16 Glucose 142 H Calcium 8.4 L Magnesium 2.0 Iron 10 L TIBC 164 L Transferrin % Sat 6 L Ferritin 193 C-Reactive Protein 21.85 H Vitamin B12 Folate 12/01/21 05:40 WBC RBC Hgb Hct MCV MCH MCHC RDW Plt Count MPV Immature Gran % Neutrophils % Lymphocytes % Monocytes % Eosinophils % Basophils % Nucleated RBC % Absolute Neutrophils Absolute Lymphocytes Absolute Monocytes Absolute Eosinophils Absolute Basophils Sodium Potassium Chloride Carbon Dioxide Anion Gap BUN Creatinine Est GFR (CKD-EPI 2020) Glucose Calcium Magnesium Iron TIBC Transferrin % Sat Ferritin C-Reactive Protein Vitamin B12 1487 H Folate 6.9 L
[2021-12-01] MEDS: OLANZapine 5 MG TAB PO ×2 (17:46→21:55)
[2021-12-01] MEDS: Lidocaine 5% Patch 2 PATCH TP (17:46)
[2021-12-01] MEDS: Polyethylene Glycol 3350 17 GM PACKET PO (20:45)
[2021-12-01] MEDS: Mirtazapine 15 MG TAB 30 MG PO (21:55)
[2021-12-02] VITALS (11 sets, daily range): BP systolic 125–153; BP diastolic 72–91; PULSE 84–111; RESP 14–21; TEMP 36.5–38.2; O2SAT 89–98
[2021-12-02] MEDS: Acetaminophen 325 MG TAB 650 MG PO ×3 (03:47→21:27)
[2021-12-02] MEDS: Normal Saline Flush 10 ML SYR IVP ×4 (05:23→23:32)
[2021-12-02] MEDS: VANCOMYCIN/WATER (PEG) 1.25 GM/250 ML BAG IVPB (05:24)
[2021-12-02] MEDS: Heparin 5,000 UNITS/ML VIAL 5000 UNITS SC ×3 (05:26→21:26)
[2021-12-02] MEDS: Patch Removal 2 EACH TP (05:29)
[2021-12-02 07:05] LABS: HCT 21.4 % (36.0-46.0)
[2021-12-02 07:29] LABS: Vancomycin, Trough 39.1 ug/mL (10.0-20.0)
[2021-12-02] MEDS: Methadone Liquid 10 MG/ML 125 MG PO (08:12)
[2021-12-02] MEDS: Ibuprofen 600 MG TAB PO ×4 (08:13→23:33)
[2021-12-02] MEDS: Gabapentin 800 MG TAB PO ×4 (08:13→21:27)
[2021-12-02] MEDS: DULoxetine 30 MG CAP PO (08:13)
[2021-12-02] MEDS: Nicotine 14 MG/24 HR PATCH TD (08:13)
[2021-12-02] MEDS: Methylphenidate 10 MG TAB 20 MG PO ×3 (08:13→17:38)
[2021-12-02 13:28] LABS: Vancomycin, Trough 19.8 ug/mL (10.0-20.0)
--- NOTE | 2021-12-02 15:39 | W.PM.PROGNOT ---
Date of Service Date of service: 12/02/21 Time of Service: 15:39 Assessment and Plan Assessment and plan (1) Sepsis: Status: Acute Assessment and plan: Due to MRSA bacteremia and suspected tricuspid valve endocarditis as well as pneumonia, present on admission. Blood cultures 11/27/21 (only 1 set collected): MRSA Blood cultures 11/28/21 (4/4 bottles): MRSA Blood cultures 11/30/21 (2/2 bottles): MRSA Blood cultures 12/02/21: pending. Continue vancomycin. (2) Endocarditis: Status: Acute Assessment and plan: As above (3) Scalded skin syndrome: Status: Acute Assessment and plan: Mild desquamation of hands and feet. Continue vancomyicn. (4) Pneumonia: Status: Acute Assessment and plan: as above (5) Bacteremia: Status: Acute Assessment and plan: As above (6) Intractable low back pain: Status: Acute Assessment and plan: MRI brain, c-spine, lumbar and thoracic MRIs ruled out epidural abscesses or vertebral osteomyelitis. Continue tylenol, prn ibuprofen, lidocaine patches. (7) Hyponatremia: Status: Acute Assessment and plan: Stable off of IVF. Continue to monitor. (8) Opioid dependence: Status: Chronic Assessment and plan: Continue methadone. (9) ADHD, hyperactive-impulsive type: Status: Chronic Assessment and plan: methylphenidate held initially due to reports of misuse in the room. We are resuming it, but administration will have to be supervised. (10) Mitral regurgitation: Status: Chronic Assessment and plan: Not explicitly mentioned on the echocardiogram (11) DVT prophylaxis: Status: Acute Assessment and plan: SC heparin (12) Discharge planning issues: Status: Acute Assessment and plan: Full code Continues to require hospitalization (13) Anemia: Status: Chronic Assessment and plan: Likely bone marrow suppression from MRSA bacteremia/endocarditis as well as losses d/t need for frequent blood draws/blood cxs and possibly dietary. Hgb 7.0 x 2 days consecutively. Symptomatic; DILLARD. Transfuse 1 unit pRBCS. Monitor. Subjective Subjective Patient reports: no new complaints, shortness of breath (with ambulation. ) and afebrile; denies nausea or vomiting Interval history since last seen: Requests alteration in the scheduling of her methylphenidate Exam Narrative Exam Narrative: General: Pleasant female who is A&Ox3, sitting on edge of bed after walking from bathroom. Short of air. No CP. HEENT: EOMI, MMM, sclera clear. Heart: RRR, + ENID, Lungs: CTAB Abdomen: soft, nontender, nondistended Extremities: S/p R BKA; BLEs edematous; scalded skin appearance of bilateral hands with edema. Objective Last Vital Signs Temp 37 C 12/02/21 15:37 Pulse 109 H 12/02/21 15:37 Resp 18 12/02/21 15:37 BP 134/80 12/02/21 15:37 Pulse Ox 98 12/02/21 15:37 Laboratory Results - last 24 hr 12/02/21 12/02/21 12/02/21 06:00 06:00 13:10 Hgb 7.0 L* Hct 21.4 L Vancomycin Trough 39.1 H* 19.8 Patient ABO/Rh Antibody Screen Crossmatch 12/02/21 13:10 Hgb Hct Vancomycin Trough Patient ABO/Rh AB Positive Antibody Screen NEGATIVE Crossmatch See Detail
[2021-12-02] MEDS: VANCOMYCIN/WATER (PEG) 1 GM/200 ML BAG IVPB ×2 (16:26→23:31)
[2021-12-02] MEDS: Lidocaine 5% Patch 2 PATCH TP (17:54)
[2021-12-02] MEDS: OLANZapine 5 MG TAB PO (21:05)
[2021-12-02] MEDS: Mirtazapine 15 MG TAB 30 MG PO (21:05)
[2021-12-02] MEDS: Normal Saline 500 ML 30 ML IV (23:32)
[2021-12-03] VITALS (11 sets, daily range): BP systolic 112–172; BP diastolic 64–91; PULSE 73–119; RESP 16–21; TEMP 36.6–40.2; O2SAT 94–97
--- NOTE | 2021-12-03 01:08 | NUR.NOTE ---
Nursing Note: at 01:05 Patient called for assistance to disconnect the IV tubing with currently infusing vancomycin so she can take off her sweatshirt/hoodie. This nurse came to patient's room and explained to patient that the vancomysin need to be reconnected after she takes her sweatshirt off in order to finish administering the medication with 20 mL left in the bag. Patient insisted not to be reconnected to the medication until she gets back from the bathroom and until her bed is changed. Patient states,I don't want to wait for an hour for my bed to be change I'm soaking wet in here. This nurse replied, it would not be that long there is only a little left in the bag. Patient still refused. Once the IV medication was disconnected from the midline. This nurse about to leave the room to get the beddings for patient bed. Patient asked this nurse to help her take off her sweatshirt. This nurse asked the patient if she can do it by herself to encouraged the patient to continue being independent. Patient immediately raised her voice and states,you are rude, leave my room. This nurse replied, I only asked if you can do it yourself but then you got angry at me, I have been here taking care of you throughout the night making sure you are feeling better and now you are treating me like this. Patient states, leave my room, I don't want you here, you are rude, I'm going to call my mom. Patient took her sweatshirt off, got up from the bed, grabbed the walker and walked to the bathroom. This nurse left the room.
[2021-12-03] MEDS: Ibuprofen 600 MG TAB PO ×2 (06:27→12:19)
[2021-12-03] MEDS: Gabapentin 800 MG TAB PO ×4 (06:27→19:54)
[2021-12-03] MEDS: Normal Saline Flush 10 ML SYR IVP ×5 (06:28→19:57)
[2021-12-03] MEDS: Patch Removal 2 EACH TP (06:28)
[2021-12-03] MEDS: Heparin 5,000 UNITS/ML VIAL 5000 UNITS SC ×3 (06:28→22:08)
[2021-12-03 07:28] LABS: HCT 25.3 % (36.0-46.0); HGB 8.5 g/dL (11.2-15.7); MCH 27.2 pg (27.0-33.0); MCHC 33.6 % (32.0-36.0); MCV 81 fL (80-95); MPV 10.2 fL (8.0-11.0); Platelet Count 313 10^3/uL (130-400); RBC 3.13 10^6/uL (3.93-5.22); RDW-SD 50.3 fL; WBC 7.91 10^3/uL (4.4-10.8)
[2021-12-03] MEDS: Methadone Liquid 10 MG/ML 125 MG PO (08:13)
[2021-12-03] MEDS: Nicotine 14 MG/24 HR PATCH TD (08:14)
[2021-12-03] MEDS: DULoxetine 30 MG CAP PO (08:14)
[2021-12-03] MEDS: Acetaminophen 325 MG TAB 650 MG PO ×5 (08:15→23:39)
[2021-12-03] MEDS: Methylphenidate 10 MG TAB 20 MG PO ×3 (09:12→17:32)
[2021-12-03] MEDS: VANCOMYCIN/WATER (PEG) 1 GM/200 ML BAG IVPB ×3 (09:12→23:39)
[2021-12-03 16:39] LABS: Vancomycin, Trough 18.7 ug/mL (10.0-20.0)
--- NOTE | 2021-12-03 16:39 | W.PM.PROGNOT ---
Date of Service Date of service: 12/03/21 Time of Service: 16:39 Assessment and Plan Assessment and plan (1) Sepsis: Status: Acute Assessment and plan: Due to MRSA bacteremia and suspected tricuspid valve endocarditis as well as pneumonia, present on admission. Blood cultures 11/27/21 (only 1 set collected): MRSA Blood cultures 11/28/21 (4/4 bottles): MRSA Blood cultures 11/30/21 (2/2 bottles): MRSA Blood cultures 12/02/21 (2/2 bottles): gram + cocci Continue vancomycin. Consult with [facility] ID requested. (2) Endocarditis: Status: Acute Assessment and plan: As above (3) Scalded skin syndrome: Status: Acute Assessment and plan: Mild desquamation of hands and feet. Continue vancomyicn. (4) Pneumonia: Status: Acute Assessment and plan: as above Clinically resolved. (5) Bacteremia: Status: Acute Assessment and plan: As above (6) Intractable low back pain: Status: Acute Assessment and plan: MRI brain, c-spine, lumbar and thoracic MRIs ruled out epidural abscesses or vertebral osteomyelitis. Continue tylenol, lidocaine patches. Will d/c ibuprofen prn and schedule celebrex. (7) Hyponatremia: Status: Acute Assessment and plan: Stable off of IVF. Continue to monitor. (8) Opioid dependence: Status: Chronic Assessment and plan: Continue methadone. (9) ADHD, hyperactive-impulsive type: Status: Chronic Assessment and plan: methylphenidate held initially due to reports of misuse in the room. Now resumed and scheduled per her home schedule. (10) Mitral regurgitation: Status: Chronic Assessment and plan: Not explicitly mentioned on the echocardiogram (11) DVT prophylaxis: Status: Acute Assessment and plan: SC heparin (12) Discharge planning issues: Status: Acute Assessment and plan: Full code Continues to require hospitalization (13) Anemia: Status: Chronic Assessment and plan: Likely bone marrow suppression from MRSA bacteremia/endocarditis as well as losses d/t need for frequent blood draws/blood cxs and possibly dietary. Hgb 7.0 x 2 days consecutively. Symptomatic; DILLARD. Transfused 1 unit pRBCS. Hgb now 8.5 Much improvement in DILLARD Monitor. Subjective Subjective Patient reports: no new complaints, still having pain (back), tolerating a regular diet and fever (Tm today of 38.9); denies nausea or vomiting Exam Narrative Exam Narrative: General: Pleasant female who is A&Ox3, sitting on edge of bed after walking from bathroom. Short of air. No CP. HEENT: EOMI, MMM, sclera clear. Heart: RRR, + ENID, Lungs: CTAB Abdomen: soft, nontender, nondistended Extremities: S/p R BKA; BLEs edematous; scalded skin appearance of bilateral hands with edema. Nonpitting edema of hands. Objective Last Vital Signs Temp 38.9 C H 12/03/21 15:53 Pulse 101 H 12/03/21 15:42 Resp 21 12/03/21 15:42 BP 134/64 12/03/21 15:42 Pulse Ox 95 12/03/21 15:42 Laboratory Results - last 24 hr 12/02/21 12/03/21 12/03/21 13:10 06:40 06:40 WBC 7.91 RBC 3.13 L Hgb 8.5 L Cancelled Hct 25.3 L Cancelled MCV 81 MCH 27.2 MCHC 33.6 RDW 17.0 H Plt Count 313 D MPV 10.2 Crossmatch See Detail
--- NOTE | 2021-12-03 17:24 | CMPROGNOTE_ITS ---
- If Service Date Differs Date of service: 12/03/21 Time of Service: 17:24 Care Management Progress Note S/O: Denisse was sitting up on the side of her bed, CM provided patient devices; IPAD #5 and Patient Laptop to support Denisse in completing docusign forms for [employer]. CM collected signatures for releases for Gudelia Chen and [facility]IDEL as well. Denisse had visitors throughout the day including her significant other, her mother and daughter and father. She was gracious in interaction and forthcoming with information. CM continues to follow. A: 36 year old female admitted to [facility] 11/27/21 for multi-focal pneumonia, IVDU P: Denisse continues to be treated with IV ABX, anticipate I&D consult and surgi herminio consult, if needed. Methadone treatment continues while inpatient-last dose letter will be provided upon discharge for transition of care. CM continues to support care coordination with FIDEL, Gudelia Chen and [facility]. Anticipate Denisse may discharge to [facility], where she can reside with her daughter. She will follow up with community based providers and transport via private vehicle with family.
[2021-12-03] MEDS: Celecoxib 200 MG CAP PO (19:54)
[2021-12-03] MEDS: Mirtazapine 15 MG TAB 30 MG PO (22:07)
[2021-12-03] MEDS: OLANZapine 5 MG TAB PO (22:07)
[2021-12-04] VITALS (12 sets, daily range): BP systolic 111–148; BP diastolic 64–80; PULSE 70–105; RESP 16–18; TEMP 36–38.8; O2SAT 92–95
--- NOTE | 2021-12-04 | DI.CT_ITS ---
Exam(s) CT CHEST/ABD/PEL WO EXAM: CT CHEST/ABD/PEL WO CLINICAL HISTORY: MRSA bacteremia TECHNIQUE: COMPARISON: CT CT THORACIC LUMBAR SPINE REC from 07/13/2021 CR,XR XR THORACIC SPINE COMPLETE from 11/27/2021 MR MR THORACIC SPINE WO/W from 11/27/2021 MR MR LUMBAR SPINE WO/W from 11/27/2021 FINDINGS: CT examination of the chest, abdomen, and pelvis was performed without contrast administration. Note is made of previously described vertebral body fractures of T12 and L1, there is a free anterior fra gment L1 vertebral body which shows increased displacement in comparison prior CT examination of July 13. No gross interval change appearance of T12 vertebral body. No posterior element involvement L1 . No additional new spinal fracture seen. There are multiple enlarged axillary lymph nodes which is a nonspecific finding. Diffuse mild lympha denopathy of hilar and mediastinal lymph nodes also noted. There are numerous consolidative and cavi tating lesions seen throughout both lungs, of patient reportedly has history of MRSA bacteremia and t hese have appearance consistent with septic emboli. No pleural effusion seen. No pericardial effusi on seen. Liver and spleen have grossly unremarkable noncontrast appearance. Adrenals and kidneys appear opal l by noncontrast criteria. No urinary tract calcification or obstruction. Unremarkable appearance o f urinary bladder. No focal bowel pathology. No specific evidence of appendicitis or diverticulitis. No gross intra-ab dominal abscess by noncontrast criteria. Mild prominence of retroperitoneal lymph nodes, no bulky ad enopathy. Pancreas grossly intact as visualized. No free fluid in the peritoneal cavity. IMPRESSION: Increased displacement of anterior vertebral body fragment of L1 since July 13. No gross involvement of the posterior elements or the spinal canal. Multiple pulmonary lesions as described above, appearance is consistent with numerous bilateral septi c emboli. Multifocal mild lymphadenopathy noted as described above. RADIATION DOSE DELIVERED: 1,071.53mGy.cm Total DLP !Error CTDIvol DATA REPOSITORY: All CT scans at this facility are submitted to the National Radiology Data Registry (NRDR) Dose Index Registry (DIR) with the [employer] ([employer]). RADIATION OPTIMIZATION: All CT scans at this facility use at least one of these dose optimization te chniques: automated exposure control; mA and/or kV adjustment per patient size (includes targeted exa ms where dose is matched to clinical indication); or iterative reconstruction.
[2021-12-04] MEDS: Gabapentin 800 MG TAB PO ×4 (05:51→19:57)
[2021-12-04] MEDS: Heparin 5,000 UNITS/ML VIAL 5000 UNITS SC ×2 (05:52→22:55)
[2021-12-04] MEDS: Acetaminophen 325 MG TAB 650 MG PO ×3 (05:55→19:56)
[2021-12-04] MEDS: Normal Saline Flush 10 ML SYR IVP ×5 (05:57→19:58)
[2021-12-04 07:16] LABS: HCT 22.9 % (36.0-46.0); HGB 7.5 g/dL (11.2-15.7)
[2021-12-04] MEDS: Methadone Liquid 10 MG/ML 125 MG PO (08:40)
[2021-12-04] MEDS: DULoxetine 30 MG CAP PO (08:41)
[2021-12-04] MEDS: Nicotine 14 MG/24 HR PATCH TD (08:41)
[2021-12-04] MEDS: Methylphenidate 10 MG TAB 20 MG PO ×3 (08:41→17:16)
[2021-12-04] MEDS: Celecoxib 200 MG CAP PO ×2 (08:41→19:57)
[2021-12-04] MEDS: VANCOMYCIN/WATER (PEG) 1 GM/200 ML BAG IVPB ×3 (08:43→23:45)
--- NOTE | 2021-12-04 13:59 | CMPROGNOTE_ITS ---
- If Service Date Differs Date of service: 12/04/21 Time of Service: 13:59 Care Management Progress Note S/O: CM supported coordination of visit with her infant daughter, through Priscilla Mccain in the family room. CM also connected DCF worker Claudia Hitchcock with Dr. Khan and supported Denisse in email correspondence with her assemblies and installations inspector, as Denisse struggled to navigate her email. CM brought personal care supplies to Denisse, of which she verbalized feeling very thankful and appreciative. Denisse had visitors throughout the day including her significant other, and father. She remains gracious in interaction and forthcoming with information. CM continues to follow. A: 36 year old female admitted to [facility] 11/27/21 for multi-focal pneumonia, IVDU P: Denisse continues to be treated with IV ABX, though her fevers continue at this time per MD. Ongoing I&D consult and possible surgical consult, if indicated. Methadone treatment continues while inpatient-last dose letter will be provided upon discharge for transition of care. CM continues to support care coordination with [facility], Gudelia Chen and [place]. Anticipate Denisse may discharge to [facility], where she can reside with her daughter. She will follow up with community based providers and transport via private vehicle with family.
[2021-12-04 16:48] LABS: Lab Add On Test DONE
[2021-12-04] MEDS: OLANZapine 5 MG TAB PO ×2 (17:16→22:55)
--- NOTE | 2021-12-04 17:57 | W.PM.PROGNOT ---
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 Blood cultures 11/27/21 (only 1 set collected): MRSA Blood cultures 11/28/21 (4/4 bottles): MRSA Blood cultures 11/30/21 (2/2 bottles): MRSA Blood cultures 12/02/21 (2/2 bottles): MRSA Continue vancomycin. Discussed with ID at [facility] Recommended simmons-scanning to r/o abscess CT chest with bilateral multiple pulmonary nodues consistent with septic emboli. (2) Endocarditis: Status: Acute Assessment and plan: As above (3) Scalded skin syndrome: Status: Acute Assessment and plan: Mild desquamation of hands and feet. Continue vancomyicn. (4) Pneumonia: Status: Acute Assessment and plan: as above Clinically resolved. (5) Bacteremia: Status: Acute Assessment and plan: As above (6) Intractable low back pain: Status: Acute Assessment and plan: MRI brain, c-spine, lumbar and thoracic MRIs ruled out epidural abscesses or vertebral osteomyelitis. Continue tylenol, lidocaine patches. Will d/c ibuprofen prn and schedule celebrex. Not complaining of back pain currently. (7) Hyponatremia: Status: Acute Assessment and plan: Stable off of IVF. Continue to monitor. (8) Opioid dependence: Status: Chronic Assessment and plan: Continue methadone. (9) ADHD, hyperactive-impulsive type: Status: Chronic Assessment and plan: methylphenidate held initially due to reports of misuse in the room. Now resumed and scheduled per her home schedule. (10) Mitral regurgitation: Status: Chronic Assessment and plan: Not explicitly mentioned on the echocardiogram (11) DVT prophylaxis: Status: Acute Assessment and plan: SC heparin (12) Discharge planning issues: Status: Acute Assessment and plan: Full code Continues to require hospitalization (13) Anemia: Status: Chronic Assessment and plan: Likely bone marrow suppression from MRSA bacteremia/endocarditis as well as losses d/t need for frequent blood draws/blood cxs and possibly dietary. Hgb 7.0 x 2 days consecutively. Symptomatic; DILLARD. Transfused 1 unit pRBCS. Hgb improved to 85, then down to 7.5 Much improvement in DILLARD Monitor. (14) Pulmonary nodules: Status: Acute Assessment and plan: Likely septic emboli On Vancomycin Continues to be bacteremic. Subjective Subjective Patient reports: tolerating a regular diet and fever; denies nausea, vomiting or shortness of breath Interval history since last seen: Describes heaviness in her uterus lower mid abd. Exam Narrative Exam Narrative: General: Pleasant female who is A&Ox3. HEENT: EOMI, MMM, sclera clear. Heart: RRR, + ENID, Lungs: CTAB Abdomen: soft, mild tenderness in suprapubic area, nondistended Extremities: S/p R BKA; BLEs edematous; scalded skin appearance of bilateral hands with edema. Nonpitting edema of hands. MIld desquamation of hands/feet. Objective Last Vital Signs Temp 38.7 C H 12/04/21 15:25 Pulse 98 H 12/04/21 14:58 Resp 16 12/04/21 14:58 BP 120/78 12/04/21 14:58 Pulse Ox 94 12/04/21 14:58 Laboratory Results - last 24 hr 12/02/21 12/04/21 12/04/21 13:10 06:38 Unknown Hgb 7.5 L Hct 22.9 L Add-On Test Request DONE Patient ABO/Rh AB Positive Antibody Screen NEGATIVE Crossmatch See Detail
[2021-12-04 18:23] LABS: Creatine Kinase 9 U/L (26-192)
[2021-12-04] MEDS: Mirtazapine 15 MG TAB 30 MG PO (22:55)
[2021-12-04 23:03] LABS: *AMPHETAMINES SCREEN URINE Negative (Negative); *BARBITURATES SCREEN URINE Negative (Negative); *BENZODIAZEPINES SCREEN URINE Negative (Negative); Cannabinoids THC Negative (Negative); Cocaine Screen,Urine Negative (Negative); METHADONE URINE SCREEN Positive (Negative); OPIATES URINE SCREEN Negative (Negative)
[2021-12-04 23:04] LABS: Tricyclic Antidepressants Negative (Negative)
[2021-12-04] MEDS: Normal Saline 500 ML 30 ML IV (23:45)
[2021-12-05 05:50] VITALS: BP 164/88; PULSE 110; RESP 28; O2SAT 95
[2021-12-05 05:59] VITALS: TEMP 40.1
[2021-12-05] MEDS: Gabapentin 800 MG TAB PO ×4 (05:59→19:44)
[2021-12-05] MEDS: Acetaminophen 325 MG TAB 650 MG PO ×3 (05:59→19:44)
[2021-12-05 06:47] VITALS: TEMP 38.9
[2021-12-05 06:59] VITALS: TEMP 38.7
[2021-12-05] MEDS: Nicotine 14 MG/24 HR PATCH TD (07:43)
[2021-12-05] MEDS: Methylphenidate 10 MG TAB 20 MG PO ×3 (07:44→17:01)
[2021-12-05] MEDS: DULoxetine 30 MG CAP PO (07:44)
[2021-12-05] MEDS: Celecoxib 200 MG CAP PO ×2 (07:44→19:44)
[2021-12-05] MEDS: Methadone Liquid 10 MG/ML 125 MG PO (08:03)
[2021-12-05 09:10] LABS: HCT 27.6 % (36.0-46.0); HGB 9.3 g/dL (11.2-15.7)
[2021-12-05] MEDS: VANCOMYCIN/WATER (PEG) 1 GM/200 ML BAG IVPB ×3 (09:37→23:35)
--- NOTE | 2021-12-05 11:16 | NUR.NOTE ---
Nursing Note: $140 larson put in envelope and signed by this principal technical writer and pt. liaison officer chart to return money to pt.
[2021-12-05 11:34] VITALS: BP 110/63; PULSE 86; RESP 17; TEMP 36.3; O2SAT 96
[2021-12-05] MEDS: OLANZapine 5 MG TAB PO ×2 (14:29→21:48)
[2021-12-05] MEDS: Normal Saline Flush 10 ML SYR IVP (16:20)
--- NOTE | 2021-12-05 17:26 | CMPROGNOTE_ITS ---
- If Service Date Differs Date of service: 12/05/21 Time of Service: 17:26 Care Management Progress Note S/O: Denisse is being closely monitored and treated with IV abx for bacteremia.. Repeat Blood Cultures from today are pending, discussed Denisse's case with [facility] ID. Denisse was sitting on her bed talking with her boyfriend on the phone and visiting with her dad when CM met with her. She is pleasant in interaction, which she requested to be kept short so she could talk with her boyfriend, who is hard to reach by phone. Denisse has no questions or concerns at this time. CM continues to follow. A: 36 year old female admitted to [facility] 11/27/21 for multi-focal pneumonia, IVDU P: Denisse continues to be treated with IV ABX, though her fevers continue at this time per MD. Ongoing I&D consult and possible surgical consult, if indicated. Methadone treatment continues while inpatient-last dose letter will be provided upon discharge for transition of care. CM continues to support care coordination with [facility], Gudelia Chen and [place]. Anticipate Denisse may discharge to [facility], where she can reside with her daughter. She will follow up with community based providers and transport via private vehicle with family.
--- NOTE | 2021-12-05 18:26 | W.PM.PROGNOT ---
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 Blood cultures 11/27/21 (only 1 set collected): MRSA Blood cultures 11/28/21 (4/4 bottles): MRSA Blood cultures 11/30/21 (2/2 bottles): MRSA Blood cultures 12/02/21 (2/2 bottles): MRSA Blood cultures 12/05/21 (2/2 bottles): MRSA Continue vancomycin. Discussed with ID at [facility] Recommended simmons-scanning to r/o abscess CT chest with bilateral multiple pulmonary noduels consistent with septic emboli. (2) Endocarditis: Status: Acute Assessment and plan: As above (3) Scalded skin syndrome: Status: Acute Assessment and plan: Mild desquamation of hands and feet. Continue vancomyicn. (4) Pneumonia: Status: Acute Assessment and plan: as above Clinically resolved. (5) Bacteremia: Status: Acute Assessment and plan: As above (6) Intractable low back pain: Status: Acute Assessment and plan: MRI brain, c-spine, lumbar and thoracic MRIs ruled out epidural abscesses or vertebral osteomyelitis. Continue tylenol, lidocaine patches. Will d/c ibuprofen prn and schedule celebrex. Not complaining of back pain currently. (7) Hyponatremia: Status: Acute Assessment and plan: Stable off of IVF. Continue to monitor. (8) Opioid dependence: Status: Chronic Assessment and plan: Continue methadone. (9) ADHD, hyperactive-impulsive type: Status: Chronic Assessment and plan: methylphenidate held initially due to reports of misuse in the room. Now resumed and scheduled per her home schedule. (10) Mitral regurgitation: Status: Chronic Assessment and plan: Not explicitly mentioned on the echocardiogram (11) DVT prophylaxis: Status: Acute Assessment and plan: SC heparin (12) Discharge planning issues: Status: Acute Assessment and plan: Full code Continues to require hospitalization (13) Anemia: Status: Chronic Assessment and plan: Likely bone marrow suppression from MRSA bacteremia/endocarditis as well as losses d/t need for frequent blood draws/blood cxs and possibly dietary. Hgb 7.0 x 2 days consecutively. Symptomatic; DILLARD. Transfused 1 unit pRBCS. Hgb improved to 8.5, then down to 7.5 Transfused another 1 unit pRBCs Hgb 9.3. Much improvement in DILLARD Monitor. (14) Pulmonary nodules: Status: Acute Assessment and plan: Likely septic emboli On Vancomycin Continues to be bacteremic. Subjective Subjective Patient reports: tolerating a regular diet and fever; denies nausea, vomiting or shortness of breath Exam Narrative Exam Narrative: General: Pleasant female who is A&Ox3. HEENT: EOMI, MMM, sclera clear. Heart: RRR, + ENID, Lungs: CTAB Abdomen: soft, mild tenderness in suprapubic area, nondistended Extremities: S/p R BKA; BLEs edematous; scalded skin appearance of bilateral hands with edema. Nonpitting edema of hands. MIld desquamation of hands/feet. Objective Last Vital Signs Temp 36.3 C L 12/05/21 11:34 Pulse 86 12/05/21 11:34 Resp 17 12/05/21 11:34 BP 110/63 12/05/21 11:34 Pulse Ox 96 12/05/21 11:34 Laboratory Results - last 24 hr 12/04/21 12/05/21 22:25 08:50 Hgb 9.3 L Hct 27.6 L Urine Opiates Screen Negative Urine Methadone Screen Positive A Ur Barbiturates Screen Negative Ur Tricyclics Screen Negative Ur Amphetamines Screen Negative U Benzodiazepines Scrn Negative Urine Cocaine Screen Negative Ur THC Screen Negative
[2021-12-05 19:46] VITALS: BP 114/68; PULSE 87; RESP 16; TEMP 38.3; O2SAT 92
[2021-12-05] MEDS: Mirtazapine 15 MG TAB 30 MG PO (21:48)
[2021-12-06] VITALS (8 sets, daily range): BP systolic 114–144; BP diastolic 67–95; PULSE 79–108; RESP 17–20; TEMP 36.6–39.4; O2SAT 92–97
[2021-12-06] MEDS: Acetaminophen 325 MG TAB 650 MG PO ×5 (02:47→21:38)
[2021-12-06] MEDS: Gabapentin 800 MG TAB PO ×4 (05:44→19:12)
[2021-12-06] MEDS: Methylphenidate 10 MG TAB 20 MG PO ×3 (05:44→15:08)
[2021-12-06] MEDS: Patch Removal 2 EACH TP (05:45)
[2021-12-06] MEDS: Celecoxib 200 MG CAP PO ×2 (08:12→19:12)
[2021-12-06] MEDS: DULoxetine 30 MG CAP PO (08:12)
[2021-12-06] MEDS: Nicotine 14 MG/24 HR PATCH TD (08:12)
[2021-12-06] MEDS: Methadone Liquid 10 MG/ML 125 MG PO (08:19)
[2021-12-06] MEDS: Normal Saline Flush 10 ML SYR IVP (08:20)
[2021-12-06] MEDS: VANCOMYCIN/WATER (PEG) 1 GM/200 ML BAG IVPB ×2 (08:20→16:50)
--- NOTE | 2021-12-06 14:07 | PGE_ITS ---
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 Blood cultures 11/27/21 (only 1 set collected): MRSA Blood cultures 11/28/21 (4/4 bottles): MRSA Blood cultures 11/30/21 (2/2 bottles): MRSA Blood cultures 12/02/21 (2/2 bottles): MRSA Blood cultures 12/05/21 One set growing Gr+ cocci and a Gr+ naldo; likely contaminant; repeat blood cultures drawn today 12/06/21 and pending. Continue vancomycin. Discussed with ID at [facility] Recommended simmons-scanning to r/o abscess CT chest with bilateral multiple pulmonary noduels consistent with septic emboli. Also recommended considering changing antibiotics to ceftaroline and daptomycin. We don't have ceftaroline available. If current set of blood cultures that are pending are ultimately positive for MRSA, then consider transfer to [facility]. (2) Endocarditis: Status: Acute Assessment and plan: As above Vegetations on tricuspid valve. Mild regurgitation. (3) Scalded skin syndrome: Status: Acute Assessment and plan: Mild desquamation of hands and feet; mild. Continue vancomyicn. (4) Pneumonia: Status: Acute Assessment and plan: as above Clinically resolved. (5) Bacteremia: Status: Acute Assessment and plan: As above (6) Intractable low back pain: Status: Acute Assessment and plan: MRI brain, c-spine, lumbar and thoracic MRIs ruled out epidural abscesses or vertebral osteomyelitis. Continue tylenol, lidocaine patches. Will d/c ibuprofen prn and schedule celebrex. Not complaining of back pain currently. (7) Hyponatremia: Status: Acute Assessment and plan: Stable off of IVF. Continue to monitor. (8) Opioid dependence: Status: Chronic Assessment and plan: Continue methadone. (9) ADHD, hyperactive-impulsive type: Status: Chronic Assessment and plan: methylphenidate held initially due to reports of misuse in the room. Now resumed and scheduled per her home schedule. (10) Mitral regurgitation: Status: Chronic Assessment and plan: Not explicitly mentioned on the echocardiogram (11) DVT prophylaxis: Status: Acute Assessment and plan: SC heparin (12) Discharge planning issues: Status: Acute Assessment and plan: Full code Continues to require hospitalization (13) Anemia: Status: Chronic Assessment and plan: Likely bone marrow suppression from MRSA bacteremia/endocarditis as well as losses d/t need for frequent blood draws/blood cxs and possibly dietary. Hgb 7.0 x 2 days consecutively. Symptomatic; DILLARD. Transfused 1 unit pRBCS. Hgb improved to 8.5, then down to 7.5 Transfused another 1 unit pRBCs Hgb 9.3. Much improvement in DILLARD Monitor. (14) Pulmonary nodules: Status: Acute Assessment and plan: Likely septic emboli On Vancomycin Continues to be bacteremic. Subjective Subjective Patient reports: no new complaints, tolerating a regular diet and fever (Tm 38.3 overnight) Exam Narrative Exam Narrative: General: Pleasant female who is A&Ox3. She has her month old daughter visiting with DFS employee. HEENT: EOMI, MMM, sclera clear. Heart: RRR, + ENID, Lungs: CTAB Abdomen: soft, mild tenderness in suprapubic area, nondistended Extremities: S/p R BKA; BLEs edematous but improved; scalded skin appearance of bilateral hands with edema. Nonpitting edema of hands. MIld desquamation of hands/feet. Objective Last Vital Signs Temp 36.6 C 12/06/21 12:00 Pulse 79 12/06/21 12:00 Resp 17 12/06/21 12:00 BP 119/76 12/06/21 12:00 Pulse Ox 94 12/06/21 12:00
[2021-12-06 14:16] LABS: Bilirubin Negative (Negative); Blood Trace-intact (Negative); Clarity Clear (Clear); Glucose Negative (Negative); Ketones Negative (Negative); Leukocyte Esterase Negative (Negative); Nitrite Negative (Negative); Urobilinogen 0.2 EU/dL (Up TO 0.2); pH 6.5 (5-8)
[2021-12-06 14:24] LABS: Bacteria Few HPF (Negative); C & S Indicated? No/Sq. Contamination; Casts Negative LPF (Negative); Crystals Negative HPF (Negative); Epithelial Cells Moderate HPF (Negative); Mucus Negative (Negative); RBC 0-2 HPF (0-2); WBC Negative HPF (0-5)
--- NOTE | 2021-12-06 14:47 | CHAPLAIN ---
Denisse was walking around in her room when I visited. Her room was dark because she said she had a headache and if she opens the curtain it is too bright in her room. Her six year old daughter and Denisse's dad are visiting today and will be here soon. Denisse also has a seven month old daughter. Denisse said maybe transferred to [facility] is she doesn't get better soon. She perfers [facility] to [facility]. She spent two months at [facility] when her foot was amputated, and Denisse said the staff members were very kind at [facility]. Denisse has been her more than a week and she said she is very tired of being sick. She is being treated with IV antibiotics for an infection.
[2021-12-06] MEDS: Heparin 5,000 UNITS/ML VIAL 5000 UNITS SC (15:08)
[2021-12-06 16:02] LABS: Vancomycin, Trough 19.2 ug/mL (10.0-20.0)
--- NOTE | 2021-12-06 16:25 | CMPROGNOTE_ITS ---
- If Service Date Differs Date of service: 12/06/21 Time of Service: 16:25 Care Management Progress Note S/O: Denisse is being closely monitored and treated with IV abx for bacteremia.. Repeat Blood Cultures are redrawn today and pending. discussed Denisse's case with [facility] ID, and will consider transfer if her blood cultures from today are positive for MRSA. Denisse is pleasant in interaction and very upbeat. She had a supervised visit with her daughter today in the family room. CM continues to follow. A: 36 year old female admitted to [facility] 11/27/21 for multi-focal pneumonia, IVDU P: Denisse continues to be treated with IV ABX, though her fevers continue at this time per MD. Ongoing I&D consult and possible surgical consult, if indicated. Methadone treatment continues while inpatient-last dose letter will be provided upon discharge for transition of care. CM continues to support care coordination with [facility], Gudelia Chen and [place]. Anticipate Denisse may discharge to [facility], where she can reside with her daughter. She will follow up with community based providers and transport via private vehicle with family.
[2021-12-06 16:27] LABS: CREATININE 0.7 mg/dL (0.55-1.02); Estimated GFR 114.16 (mL/min/1.73m2)
[2021-12-06] MEDS: OLANZapine 5 MG TAB PO ×2 (16:43→21:38)
[2021-12-06] MEDS: Mirtazapine 15 MG TAB 30 MG PO (21:37)
[2021-12-07] VITALS (10 sets, daily range): BP systolic 114–167; BP diastolic 67–132; PULSE 67–112; RESP 4–18; TEMP 36.3–38.9; O2SAT 92–97
[2021-12-07] MEDS: VANCOMYCIN/WATER (PEG) 1 GM/200 ML BAG IVPB ×3 (00:07→15:57)
[2021-12-07] MEDS: Methylphenidate 10 MG TAB 20 MG PO ×3 (05:53→15:58)
[2021-12-07] MEDS: Gabapentin 800 MG TAB PO ×4 (05:53→21:21)
[2021-12-07] MEDS: Acetaminophen 325 MG TAB 650 MG PO ×2 (06:27→13:18)
[2021-12-07] MEDS: Nicotine 14 MG/24 HR PATCH TD (08:23)
[2021-12-07] MEDS: DULoxetine 30 MG CAP PO (08:23)
[2021-12-07] MEDS: Celecoxib 200 MG CAP PO ×2 (08:23→21:21)
[2021-12-07] MEDS: Methadone Liquid 10 MG/ML 125 MG PO (08:25)
[2021-12-07] MEDS: Bacitracin 1 PACKET (12:32)
[2021-12-07] MEDS: cefTRIAXone 2 GM/50 ML BAG IVPB (12:32)
[2021-12-07] MEDS: Heparin 5,000 UNITS/ML VIAL 5000 UNITS SC (13:18)
--- NOTE | 2021-12-07 13:43 | NUR.NOTE ---
Nursing Note: Tele applied to patient , she was asked if she would prefer to have a female attendant apply the instrument . She stated she really didn't want the tele period, as she didn't like it. Rationale for use, including the bacteremia and fungal infection which has been worsening. It was explained that staff would monitor for dysrythmia and changes. She allowed to have the tele applied. she stated it didn't matter to her if either male or female attendant applied it
--- NOTE | 2021-12-07 14:06 | NUR.NOTE ---
Nursing Note: Per MD, she feels the tip of the midline is a source of infection. ED SLAB PULLER gains access using a flex line with us guidance. Old Midline is removed tip sent for c&S
--- NOTE | 2021-12-07 14:26 | NUR.NOTE ---
Brought to charge nurses attentions, that shortly after exiting the bathroom patient had started slurring her words, and was exhibiting an altered level of mentation. Nursing Note:
[2021-12-07 15:04] LABS: *AMPHETAMINES SCREEN URINE Negative (Negative); *BARBITURATES SCREEN URINE Negative (Negative); *BENZODIAZEPINES SCREEN URINE Negative (Negative); Cannabinoids THC Negative (Negative); Cocaine Screen,Urine Negative (Negative); METHADONE URINE SCREEN Positive (Negative); OPIATES URINE SCREEN Negative (Negative)
[2021-12-07 15:07] LABS: Tricyclic Antidepressants Negative (Negative)
--- NOTE | 2021-12-07 17:40 | W.PM.PROGNOT ---
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 Now, blood cultures are also growing strep and yeast. Midline removed; a peripheral line was placed. Blood cultures to be repeated tomorrow. Ceftriaxone and micafungin added to vancomycin. Blood cultures 11/27/21 (only 1 set collected): MRSA Blood cultures 11/28/21 (4/4 bottles): MRSA Blood cultures 11/30/21 (2/2 bottles): MRSA Blood cultures 12/02/21 (2/2 bottles): MRSA Blood cultures 12/05/21 Strep spp and yeast. Blood cultures 12/06/21: GPCs CT chest with bilateral multiple pulmonary nodules consistent with septic emboli. Consider changing antibiotics to ceftaroline and daptomycin. Await blood culture results. Consider DEBORAH and transfer to [facility]. 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 (3) Scalded skin syndrome: Status: Resolved Assessment and plan: Continue vancomyicn. (4) Pneumonia: Status: Acute Assessment and plan: as above Obtain CXR. (5) Bacteremia: Status: Acute Assessment and plan: As above I am concerned about the fact that different bacteria are growing in blood now. IV changed. Awaiting speciation results. Also appears to have fungemia. (6) Intractable low back pain: Status: Acute Assessment and plan: No evidence of OM on MRIs c-spine through lumbar spine. However dose have increased displacement of her vertebral body fragment of L1 since July 13. I would consider repeating MRI since pain is worse. Continue tylenol, lidocaine patches, celebrex. PT is working with the patient. (7) Hyponatremia: Status: Acute Assessment and plan: Recheck labs in am. (8) Opioid dependence: Status: Chronic Assessment and plan: Continue methadone. (9) ADHD, hyperactive-impulsive type: Status: Chronic Assessment and plan: Continue methylphenidate. (10) Mitral regurgitation: Status: Chronic Assessment and plan: Not explicitly mentioned on the echocardiogram (11) Anemia: Status: Chronic Assessment and plan: S/p transfusion of 2 units pRBCs on this admission. No active bleeding. Recheck H/H in am. (12) Pulmonary nodules: Status: Acute Assessment and plan: Due to septic emboli. Continue vancomycin. (13) Discharge planning issues: Status: Acute Assessment and plan: Full code Continues to require hospitalization May require transfer to [facility] (down and back for a DEBORAH vs full transfer to [facility] where she is known). (14) DVT prophylaxis: Status: Acute Assessment and plan: SC heparin Subjective Subjective Interval history since last seen: Denisse reports a very sore throat (feels like strep; rapid strep is negative). It hurts to swallow. Denies dizziness, chest pain, endorses shortness of breath and cough productive of blood-tinged sputum. Denies n/v. Her midline had to come out today and was replaced witha peripheral because her blood cultu Exam Narrative Exam Narrative: General: Pleasant female who is A&Ox3, looks clinically better HEENT: EOMI, MMM, erythematous orpharynx with white spots Heart: RRR, + ENID Lungs: coarse breath sounds B, coughing Abdomen: soft, nontender, nondistended Extremities: S/p R BKA; mild edema LLE; RLE prosthesis in place Objective Last Vital Signs Temp 37.7 C H 12/07/21 09:49 Pulse 102 H 12/07/21 12:37 Resp 18 12/07/21 07:25 BP 114/67 12/07/21 07:25 Pulse Ox 92 12/07/21 07:25 Laboratory Results - last 24 hr 12/07/21 14:42 Urine Opiates Screen Negative Urine Methadone Screen Positive A Ur Barbiturates Screen Negative Ur Tricyclics Screen Negative Ur Amphetamines Screen Negative U Benzodiazepines Scrn Negative Urine Cocaine Screen Negative Ur THC Screen Negative
--- NOTE | 2021-12-07 18:20 | DI.RAD_ITS ---
Exam(s) XR PORTABLE CHEST AP EXAM: XR PORTABLE CHEST AP CLINICAL HISTORY: shortness of breath. TECHNIQUE: 2D digital imaging was performed. COMPARISON: CR,XR XR CHEST 1V IN DI DEPT from 11/27/[address] CHEST/ABD/PEL WO from 12/04/2021 FINDINGS: Single AP portable view. Heart size is normal. The mediastinum is not widened. There are multilevel bilateral patchy nodular infiltrates throughout both lung valdivia, as evident on recent imaging studies including CT scan of 12/04/2021. No pleural effusions. IMPRESSION: Extensive bilateral patchy nodular infiltrates throughout both lung valdivia again noted. No improveme nt. No pleural effusions. DATA REPOSITORY: RADIATION DOSE DELIVERED:
--- NOTE | 2021-12-07 18:30 | DI.VRAD_ITS ---
PROCEDURE INFORMATION: Exam: XR Chest Exam date and time: 12/07/2021 5:56 PM Age: 36 years old Clinical indication: Shortness of breath TECHNIQUE: Imaging protocol: Radiologic exam of the chest. Views: 1 view. COMPARISON: CT CHEST/ABD/PEL WO 12/04/2021 4:16 PM FINDINGS: Lungs: Moderate to severe interstitial thickening No consolidation. Pleural spaces: Minimal thickening of the minor fissure. No pneumothorax. Heart/Mediastinum: Enlargement of the tarsha No cardiomegaly. Bones/joints: Unremarkable. IMPRESSION: Moderate to severe pneumonitis versus edema and trace right fissural fluid Question hilar adenopathy Dictated and Authenticated by: Sean Lopez MD. Ordering:LOGAN Bowman MD
[2021-12-07] MEDS: Acetaminophen 500 MG TAB 1000 MG PO (18:36)
[2021-12-07] MEDS: Lidocaine 5% Patch 2 PATCH TP (18:37)
[2021-12-07 18:38] LABS: Source Nasal/Nares
[2021-12-07] MEDS: Levalbuterol HFA 15 GM INH 2 PUFF IH (18:38)
[2021-12-07 19:15] LABS: COVID-19 PCR Negative (Negative)
[2021-12-07] MEDS: OLANZapine 5 MG TAB PO ×2 (21:20→21:21)
[2021-12-07] MEDS: Mirtazapine 15 MG TAB 30 MG PO (21:20)
[2021-12-07] MEDS: cloNIDine 0.1 MG TAB 0.2 MG PO (21:21)
[2021-12-07] MEDS: Normal Saline Flush 10 ML SYR IVP (21:21)
[2021-12-07] MEDS: Albuterol 2.5 MG/3 ML INH SOLN VIAL UPD (21:22)
[2021-12-08 00:34] VITALS: BP 103/62; PULSE 73; RESP 16; TEMP 36.2; O2SAT 97
[2021-12-08] MEDS: Acetaminophen 500 MG TAB 1000 MG PO ×4 (00:35→19:55)
[2021-12-08] MEDS: VANCOMYCIN/WATER (PEG) 1 GM/200 ML BAG IVPB ×2 (00:35→19:54)
[2021-12-08] MEDS: Methylphenidate 10 MG TAB 20 MG PO ×3 (05:50→16:34)
[2021-12-08] MEDS: Gabapentin 800 MG TAB PO ×4 (05:50→19:56)
[2021-12-08 05:52] VITALS: BP 119/75; PULSE 86; RESP 16; TEMP 36; O2SAT 94
[2021-12-08 07:48] VITALS: BP 107/71; PULSE 88; RESP 16; TEMP 36.4; O2SAT 95
[2021-12-08] MEDS: Celecoxib 200 MG CAP PO ×2 (08:44→19:56)
[2021-12-08] MEDS: DULoxetine 30 MG CAP PO (08:44)
[2021-12-08] MEDS: Furosemide 20 MG/2 ML VIAL IVP (08:45)
[2021-12-08] MEDS: Normal Saline Flush 10 ML SYR IVP ×3 (08:46→21:53)
[2021-12-08] MEDS: Methadone Liquid 10 MG/ML 125 MG PO (08:47)
[2021-12-08] MEDS: Nicotine 14 MG/24 HR PATCH TD (08:47)
[2021-12-08] MEDS: cefTRIAXone 2 GM/50 ML BAG IVPB (10:09)
[2021-12-08 11:30] VITALS: BP 124/85; PULSE 106; RESP 16; TEMP 36.1; O2SAT 96
[2021-12-08 11:30] LABS: Abs Immature Grans 0.03 10^3/uL (0.0-0.06); Absolute Basophil Count 0.04 10^3/uL (0.0-0.2); Absolute Eosinophil Count 0.56 10^3/uL (0.0-0.7); Absolute Lymphocyte Count 1.51 10^3/uL (1.2-3.4); Absolute Monocyte Count 0.56 10^3/uL (0.1-0.8); Absolute Neutrophil Count 4.91 10^3/uL (1.2-6.7); Basophils % 0.5; Eosinophils % 7.4; HCT 34.7 % (36.0-46.0); Immature Grans % 0.4; Lymphocytes % 19.8; MCH 26.6 pg (27.0-33.0); MCHC 31.7 % (32.0-36.0); MCV 84 fL (80-95); MPV 9.6 fL (8.0-11.0); Monocytes % 7.4; Neutrophils % 64.5; Platelet Count 313 10^3/uL (130-400); RBC 4.13 10^6/uL (3.93-5.22); RDW 15.9 % (11.7-14.6); RDW-SD 49.2 fL; WBC 7.61 10^3/uL (4.4-10.8)
[2021-12-08 11:49] LABS: Vancomycin, Trough 17.1 ug/mL (10.0-20.0)
[2021-12-08 11:54] LABS: ALT 69 U/L (14-59); AST 60 U/L (15-37); Albumin 2.8 g/dL (3.4-5.0); Alkaline Phosphatase 316 U/L (46-116); Anion Gap 11.6 mmol/L (3-11); BUN 22 mg/dL (7-18); Bilirubin, Direct 0.1 mg/dL (0.0-0.2); Bilirubin, Total 0.2 mg/dL (0.2-1.0); CO2 24.4 mmol/L (21.0-32.0); Calcium 9.6 mg/dL (8.5-10.1); Chloride 102 mmol/L (98-107); Estimated GFR 74.41 (mL/min/1.73m2); Glucose 101 mg/dL (74-106); Magnesium 2.1 mg/dL (1.8-2.4); Potassium 5.3 mmol/L (3.5-5.1); Sodium 138 mmol/L (136-145); Total Protein 9.7 g/dL (6.4-8.2)
[2021-12-08 12:12] LABS: Procalcitonin 0.6 ng/mL
[2021-12-08 15:25] VITALS: BP 105/63; PULSE 85; RESP 18; TEMP 36; O2SAT 93
--- NOTE | 2021-12-08 15:56 | PGE_ITS ---
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 CT chest with bilateral multiple pulmonary nodules consistent with septic emboli. Now, blood cultures are also growing strep and yeast. Midline removed; a peripheral line was placed. Blood cultures to be repeated tomorrow. Ceftriaxone and micafungin added to vancomycin. Blood cultures 11/27/21 (only 1 set collected): MRSA Blood cultures 11/28/21 (4/4 bottles): MRSA Blood cultures 11/30/21 (2/2 bottles): MRSA Blood cultures 12/02/21 (2/2 bottles): MRSA Blood cultures 12/05/21 line draw: Strep spp x 2 and yeast. peripheral draw: strep spp (1 spp). Blood cultures 12/06/21: line draw: GNR, stresp spp, coag neg. staph peripheral draw: NGTD Cath tip cx 12/07: rare GPCs Blood cultures are being collected today. She has lost her replacement IV (placed yesterday). Awaiting alternative IV access. Continue vancomcyin/ceftraxone/micafungin. Once we have more speciation information available, I will call ID. Consider DEBORAH and transfer to [facility]. 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 As above - consider transfer for a DEBORAH. I suspect a component of yesterday's hypoxia was pulmonary edema. (3) Scalded skin syndrome: Status: Resolved Assessment and plan: Continue vancomyicn. (4) Pneumonia: Status: Acute Assessment and plan: as above Obtain CXR. (5) Bacteremia: Status: Acute Assessment and plan: As above I am concerned about the fact that different bacteria are growing in blood now. Originally infected line now out; awaiting alternative IV access. Awaiting speciation results. Also appears to have fungemia. (6) Intractable low back pain: Status: Acute Assessment and plan: No evidence of OM on MRIs c-spine through lumbar spine. However dose have increased displacement of her vertebral body fragment of L1 since July 13. Consider repeating MRI since pain is worse, but CRP and procalcitonin are improving, which is encouraging. Continue TENS unit. Continue tylenol, lidocaine patches, celebrex. PT is working with the patient. (7) Hyponatremia: Status: Acute Assessment and plan: Recheck labs in am. (8) Opioid dependence: Status: Chronic Assessment and plan: Continue methadone. (9) ADHD, hyperactive-impulsive type: Status: Chronic Assessment and plan: Continue methylphenidate. (10) Mitral regurgitation: Status: Chronic Assessment and plan: Not explicitly mentioned on the echocardiogram (11) Anemia: Status: Chronic Assessment and plan: S/p transfusion of 2 units pRBCs on this admission. No active bleeding. Recheck H/H in am. (12) Pulmonary nodules: Status: Acute Assessment and plan: Due to septic emboli. Continue vancomycin. (13) Discharge planning issues: Status: Acute Assessment and plan: Full code Continues to require hospitalization May require transfer to [facility] (down and back for a DEBORAH vs full transfer to [facility] where she is known). (14) DVT prophylaxis: Status: Acute Assessment and plan: SC heparin Subjective Subjective Interval history since last seen: Denisse states she feels better today. Her throat feels better, though it is still somewhat sore. Her cough is better. She required 3L of O2 last night but was able to come off of it this morning. She had a foul smelling stool this morning - diarrhea. She lost her IV and does not currently have IV access. Denies dizziness, chest pain, nausea. Does report a tummy ache after eating cookies for lunch and now in the room with me. Exam Narrative Exam Narrative: General: Pleasant female who is A&Ox3, looks better, appears to be in good spirits HEENT: EOMI, MMM Heart: RRR, + ENID Lungs: coarse breath sounds B, but improved from yesterday Abdomen: soft, nontender, nondistended Extremities: S/p R BKA; mild edema LLE Objective Last Vital Signs Temp 36.0 C L 12/08/21 15:25 Pulse 85 12/08/21 15:25 Resp 18 12/08/21 15:25 BP 105/63 12/08/21 15:25 Pulse Ox 93 12/08/21 15:25 Laboratory Results - last 24 hr 12/07/21 12/08/21 12/08/21 18:37 11:21 11:21 WBC RBC Hgb Hct MCV MCH MCHC RDW Plt Count MPV Immature Gran % Neutrophils % Lymphocytes % Monocytes % Eosinophils % Basophils % Nucleated RBC % Absolute Neutrophils Absolute Lymphocytes Absolute Monocytes Absolute Eosinophils Absolute Basophils Sodium 138 Potassium 5.3 H Chloride 102 Carbon Dioxide 24.4 Anion Gap 11.6 H BUN 22 H Creatinine 1.0 Est GFR (CKD-EPI 2020) 74.41 Glucose 101 Calcium 9.6 Magnesium 2.1 Total Bilirubin 0.2 Conjugated Bilirubin 0.1 AST 60 H ALT 69 H Alkaline Phosphatase 316 H C-Reactive Protein 16.40 H Total Protein 9.7 H Albumin 2.8 L Procalcitonin Vancomycin Trough 17.1 COVID-19 Source Nasal/Nares SARS-CoV-2 (PCR) Negative 12/08/21 12/08/21 11:21 11:21 WBC 7.61 RBC 4.13 Hgb 11.0 L Hct 34.7 L MCV 84 MCH 26.6 L MCHC 31.7 L RDW 15.9 H Plt Count 313 MPV 9.6 Immature Gran % 0.4 Neutrophils % 64.5 Lymphocytes % 19.8 Monocytes % 7.4 Eosinophils % 7.4 Basophils % 0.5 Nucleated RBC % 0.0 Absolute Neutrophils 4.91 Absolute Lymphocytes 1.51 Absolute Monocytes 0.56 Absolute Eosinophils 0.56 Absolute Basophils 0.04 Sodium Potassium Chloride Carbon Dioxide Anion Gap BUN Creatinine Est GFR (CKD-EPI 2020) Glucose Calcium Magnesium Total Bilirubin Conjugated Bilirubin AST ALT Alkaline Phosphatase C-Reactive Protein Total Protein Albumin Procalcitonin 0.6 Vancomycin Trough COVID-19 Source SARS-CoV-2 (PCR)
[2021-12-08 18:55] LABS: C Diff PCR Negative (Negative)
[2021-12-08] MEDS: Lidocaine 5% Patch 2 PATCH TP (21:50)
[2021-12-08] MEDS: cloNIDine 0.1 MG TAB 0.2 MG PO (21:53)
[2021-12-08] MEDS: OLANZapine 5 MG TAB PO (21:54)
[2021-12-08] MEDS: Mirtazapine 15 MG TAB 30 MG PO (21:54)
[2021-12-08] MEDS: Heparin 5,000 UNITS/ML VIAL 5000 UNITS SC (21:56)
[2021-12-09] VITALS (7 sets, daily range): BP systolic 102–137; BP diastolic 66–85; PULSE 65–118; RESP 16–20; TEMP 36–38.2; O2SAT 92–95
[2021-12-09] MEDS: Acetaminophen 500 MG TAB 1000 MG PO ×5 (01:00→23:30)
[2021-12-09] MEDS: VANCOMYCIN/WATER (PEG) 1 GM/200 ML BAG IVPB ×3 (04:25→23:31)
[2021-12-09] MEDS: Normal Saline Flush 10 ML SYR IVP ×4 (04:25→20:23)
[2021-12-09] MEDS: Methylphenidate 10 MG TAB 20 MG PO ×3 (05:17→15:32)
[2021-12-09] MEDS: Gabapentin 800 MG TAB PO ×4 (05:18→20:22)
[2021-12-09] MEDS: Patch Removal 2 EACH TP (05:21)
[2021-12-09 07:34] LABS: Abs Immature Grans 0.04 10^3/uL (0.0-0.06); Absolute Basophil Count 0.04 10^3/uL (0.0-0.2); Absolute Eosinophil Count 0.53 10^3/uL (0.0-0.7); Absolute Lymphocyte Count 1.67 10^3/uL (1.2-3.4); Absolute Monocyte Count 0.48 10^3/uL (0.1-0.8); Basophils % 0.5; HGB 10.8 g/dL (11.2-15.7); Immature Grans % 0.5; Lymphocytes % 22.1; MCH 26.7 pg (27.0-33.0); MCHC 31.8 % (32.0-36.0); MCV 84 fL (80-95); MPV 9.5 fL (8.0-11.0); Monocytes % 6.3; Neutrophils % 63.6; Platelet Count 337 10^3/uL (130-400); RBC 4.04 10^6/uL (3.93-5.22); RDW-SD 49.1 fL; WBC 7.56 10^3/uL (4.4-10.8)
[2021-12-09 08:00] LABS: ALT 49 U/L (14-59); AST 23 U/L (15-37); Albumin 2.7 g/dL (3.4-5.0); Alkaline Phosphatase 241 U/L (46-116); Anion Gap 10.4 mmol/L (3-11); BUN 26 mg/dL (7-18); Bilirubin, Direct 0.1 mg/dL (0.0-0.2); Bilirubin, Total 0.2 mg/dL (0.2-1.0); C-Reactive Protein 13.72 mg/dL (0.0-0.3); CO2 24.6 mmol/L (21.0-32.0); CREATININE 0.8 mg/dL (0.55-1.02); Calcium 9.5 mg/dL (8.5-10.1); Chloride 99 mmol/L (98-107); Estimated GFR 97.26 (mL/min/1.73m2); Glucose 112 mg/dL (74-106); Magnesium 2.1 mg/dL (1.8-2.4); Potassium 4.8 mmol/L (3.5-5.1); Sodium 134 mmol/L (136-145); Total Protein 9.3 g/dL (6.4-8.2)
[2021-12-09] MEDS: Methadone Liquid 10 MG/ML 125 MG PO (08:26)
[2021-12-09] MEDS: Celecoxib 200 MG CAP PO ×2 (08:33→20:22)
[2021-12-09] MEDS: DULoxetine 30 MG CAP PO (08:33)
--- NOTE | 2021-12-09 09:58 | CMPROGNOTE_ITS ---
- If Service Date Differs Date of service: 12/09/21 Time of Service: 09:58 Care Management Progress Note S/O: Denisse is pleasant in interaction and very upbeat. She had a supervised visit with her daughter this morning in the family room. Cultures are pending. Denisse was discharged from PT services today. Per provider: Consider down and back to [facility] for a DEBORAH vs. transfer to [facility], if indicated once cultures are resulted. A: 36 year old female admitted to [facility] 11/27/21 for multi-focal pneumonia, IVDU P: Denisse continues to be treated with IV ABX, though her fevers continue at this time per MD. Ongoing I&D consult and possible surgical consult, if indicated. Methadone treatment continues while inpatient-last dose letter will be provided upon discharge for transition of care. CM continues to support care coordination with [facility], [facility] and [place]. Anticipate Denisse may discharge to [facility], where she can reside with her daughter. She will follow up with community based providers and transport via private vehicle with family.
[2021-12-09] MEDS: cefTRIAXone 2 GM/50 ML BAG IVPB (10:05)
--- NOTE | 2021-12-09 13:28 | PT.INNT ---
Date of service: 12/09/21 Time of Service: 13:28 PT Notes Visit Reasons: Multifocal Pneuomonia,IVDU December 09, 2021 Went in to reassess Denisse this afternoon. Patient refused due to her children coming in for a visit. Denisse is up blow drying her hair. Continues to complain of back pain however is independent with all transfers and bed mobility. Does not require PT services at this time. Previously was utilizing TENs unit however complained it was not as beneficial. New pads were obtained if needed. Nursing can continue with Aqua K heating pads for pain management/control as needed. Patient will be considered discharged from PT services at this time. Yasmeen Olivarez,MPT
[2021-12-09] MEDS: Heparin 5,000 UNITS/ML VIAL 5000 UNITS SC (15:32)
--- NOTE | 2021-12-09 19:02 | PGE_ITS ---
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 CT chest with bilateral multiple pulmonary nodules consistent with septic emboli. Now, blood cultures are also growing strep and yeast. Midline removed; a peripheral line was placed. Blood cultures to be repeated tomorrow. Ceftriaxone and micafungin added to vancomycin. Blood cultures 11/27/21 (only 1 set collected): MRSA Blood cultures 11/28/21 (4/4 bottles): MRSA Blood cultures 11/30/21 (2/2 bottles): MRSA Blood cultures 12/02/21 (2/2 bottles): MRSA Blood cultures 12/05/21 line draw: Strep salivarius, strep mitis, and yeast. peripheral draw: strep spp (1 spp). Blood cultures 12/06/21: line draw: GNR, stresp spp, coag neg. staph peripheral draw: NGTD Cath tip cx 12/07: rare GPCs Blood cultures 12/08/21: NGTD s/p midline. Continue vancomcyin/ceftraxone/micafungin. Will obtain ID consult. Consider DEBORAH and transfer to [facility]. 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 As above - consider transfer for a DEBORAH. Component of hypoxia was pulmonary edema. Hypoxia now resolved. (3) Scalded skin syndrome: Status: Resolved Assessment and plan: Continue vancomyicn. (4) Pneumonia: Status: Acute Assessment and plan: as above CXR w/ evidence of B septic emboli. (5) Bacteremia: Status: Acute Assessment and plan: As above Also appears to have fungemia per line draw, but not peripherally Will discuss with ID. (6) Intractable low back pain: Status: Acute Assessment and plan: No evidence of OM on MRIs c-spine through lumbar spine. However dose have increased displacement of her vertebral body fragment of L1 since July 13. Consider repeating MRI since pain is worse, but CRP and procalcitonin are improving, which is encouraging. Continue TENS unit. Continue tylenol, lidocaine patches, celebrex. PT is working with the patient. (7) Hyponatremia: Status: Acute Assessment and plan: Worse today. Asymptomatic. Will recheck in am. (8) Opioid dependence: Status: Chronic Assessment and plan: Continue methadone. (9) ADHD, hyperactive-impulsive type: Status: Chronic Assessment and plan: Continue methylphenidate. (10) Mitral regurgitation: Status: Chronic Assessment and plan: Not explicitly mentioned on the echocardiogram (11) Anemia: Status: Chronic Assessment and plan: S/p transfusion of 2 units pRBCs on this admission. No active bleeding. Recheck H/H in am. I have asked blood bank to ensure that the blood we gave to the patient was not infected. (12) Pulmonary nodules: Status: Acute Assessment and plan: Due to septic emboli. Continue vancomycin. (13) Discharge planning issues: Status: Acute Assessment and plan: Full code Continues to require hospitalization May require transfer to [facility] (down and back for a DEBORAH vs full transfer to [facility] where she is known). (14) DVT prophylaxis: Status: Acute Assessment and plan: SC heparin Subjective Subjective Interval history since last seen: Denisse feels better. Denies dizziness, chest pain, shortness of breath, nausea. C/o that her RUE where she has the midline hurts. It is her boyfriend's birthday and she is doing her makeup. She has been afebrile x 24 hrs. Exam Narrative Exam Narrative: General: Pleasant female who is A&Ox3, looks better HEENT: EOMI, MMM Heart: not auscultated (patient is in the bathroom) Lungs: nonlabored breathing on RA Abdomen: soft, nondistended Extremities: S/p R BKA; mild edema LLE Objective Last Vital Signs Temp 36.9 C 12/09/21 16:11 Pulse 111 H 12/09/21 16:11 Resp 20 12/09/21 16:11 BP 137/83 12/09/21 16:11 Pulse Ox 92 12/09/21 16:11 Laboratory Results - last 24 hr 12/09/21 12/09/21 07:30 07:30 WBC 7.56 RBC 4.04 Hgb 10.8 L Hct 34.0 L MCV 84 MCH 26.7 L MCHC 31.8 L RDW 16.0 H Plt Count 337 MPV 9.5 Immature Gran % 0.5 Neutrophils % 63.6 Lymphocytes % 22.1 Monocytes % 6.3 Eosinophils % 7.0 Basophils % 0.5 Nucleated RBC % 0.0 Absolute Neutrophils 4.80 Absolute Lymphocytes 1.67 Absolute Monocytes 0.48 Absolute Eosinophils 0.53 Absolute Basophils 0.04 Sodium 134 L Potassium 4.8 Chloride 99 Carbon Dioxide 24.6 Anion Gap 10.4 BUN 26 H Creatinine 0.8 Est GFR (CKD-EPI 2020) 97.26 Glucose 112 H Calcium 9.5 Magnesium 2.1 Total Bilirubin 0.2 Conjugated Bilirubin 0.1 AST 23 ALT 49 Alkaline Phosphatase 241 H C-Reactive Protein 13.72 H Total Protein 9.3 H Albumin 2.7 L
[2021-12-09] MEDS: Mirtazapine 15 MG TAB 30 MG PO (22:26)
[2021-12-09] MEDS: OLANZapine 5 MG TAB PO (22:27)
[2021-12-09] MEDS: Lidocaine 5% Patch 2 PATCH TP (22:31)
[2021-12-09] MEDS: Levalbuterol HFA 15 GM INH 2 PUFF IH (22:34)
[2021-12-10] VITALS (57 sets, daily range): BP systolic 31–135; BP diastolic 14–95; PULSE 85–120; RESP 12–32; TEMP 36–37.4; O2SAT 92–100
--- NOTE | 2021-12-10 | DI.CT_ITS ---
Exam(s) CT HEAD CERVICAL SPINE WO EXAM: CT HEAD CERVICAL SPINE WO CLINICAL HISTORY: head trauma. TECHNIQUE: Imaging Protocol: Axial computed tomography images with coronal and sagittal reformatted images were created and reviewed COMPARISON: CT CT HEAD WO from 08/20/2021 FINDINGS: Head CT Ventricles and Extra axial spaces: Normal in size and morphology for the patient's age. Hemorrhage: None. Cerebral parenchyma: Normal. Midline shift: None. Brainstem/Cerebellum: Normal. Calvarium: Normal. Visualized Paranasal sinuses/Mastoids: Clear. Cervical Spine CT Endotracheal tube and nasogastric tube noted. BONES: Vertebral body heights are maintained. Alignment is normal. There is no evidence of acute frac ture. SOFT TISSUES: No paraspinal hematoma. The airway appears intact. IMPRESSION: Head CT: No acute abnormality. C-spine CT: no acute abnormality. RADIATION DOSE DELIVERED: 1,180.81mGy.cm Total DLP DATA REPOSITORY: All CT scans at this facility are submitted to the National Radiology Data Registry (NRDR) Dose Index Registry (DIR) with the [employer] (ACR). RADIATION OPTIMIZATION: All CT scans at this facility use at least one of these dose optimization te chniques: automated exposure control; mA and/or kV adjustment per patient size (includes targeted exa ms where dose is matched to clinical indication); or iterative reconstruction.
[2021-12-10] MEDS: Gabapentin 800 MG TAB PO ×4 (05:58→15:04)
[2021-12-10] MEDS: Methylphenidate 10 MG TAB 20 MG PO ×3 (05:58→15:04)
[2021-12-10] MEDS: Acetaminophen 500 MG TAB 1000 MG PO ×3 (05:58→12:32)
[2021-12-10 07:15] LABS: Abs Immature Grans 0.07 10^3/uL (0.0-0.06); Absolute Lymphocyte Count 2.11 10^3/uL (1.2-3.4); Absolute Monocyte Count 0.69 10^3/uL (0.1-0.8); Basophils % 0.6; Eosinophils % 5.6; HCT 33.2 % (36.0-46.0); HGB 10.9 g/dL (11.2-15.7); Immature Grans % 0.6; MCH 26.8 pg (27.0-33.0); MCHC 32.8 % (32.0-36.0); MCV 82 fL (80-95); MPV 9.1 fL (8.0-11.0); Monocytes % 5.6; Neutrophils % 70.6; Platelet Count 375 10^3/uL (130-400); RBC 4.07 10^6/uL (3.93-5.22); RDW 15.7 % (11.7-14.6); RDW-SD 47.4 fL; WBC 12.39 10^3/uL (4.4-10.8)
[2021-12-10 07:27] LABS: Absolute Basophil Count 0.07 10^3/uL (0.0-0.2); Absolute Eosinophil Count 0.69 10^3/uL (0.0-0.7); Absolute Neutrophil Count 8.75 10^3/uL (1.2-6.7)
[2021-12-10 07:42] LABS: ALT 41 U/L (14-59); AST 24 U/L (15-37); Albumin 2.7 g/dL (3.4-5.0); Alkaline Phosphatase 279 U/L (46-116); Anion Gap 11.1 mmol/L (3-11); BUN 19 mg/dL (7-18); Bilirubin, Direct 0.1 mg/dL (0.0-0.2); Bilirubin, Total 0.2 mg/dL (0.2-1.0); C-Reactive Protein 14.38 mg/dL (0.0-0.3); CO2 23.9 mmol/L (21.0-32.0); CREATININE 0.7 mg/dL (0.55-1.02); Calcium 9.4 mg/dL (8.5-10.1); Chloride 101 mmol/L (98-107); Estimated GFR 114.16 (mL/min/1.73m2); Glucose 76 mg/dL (74-106); Magnesium 2.2 mg/dL (1.8-2.4); Potassium 4.9 mmol/L (3.5-5.1); Sodium 136 mmol/L (136-145)
[2021-12-10 08:09] LABS: Procalcitonin 0.6 ng/mL
[2021-12-10] MEDS: Methadone Liquid 10 MG/ML 125 MG PO (08:13)
[2021-12-10] MEDS: DULoxetine 30 MG CAP PO (08:14)
[2021-12-10] MEDS: Celecoxib 200 MG CAP PO (08:14)
[2021-12-10] MEDS: cefTRIAXone 2 GM/50 ML BAG IVPB (09:56)
[2021-12-10] MEDS: Normal Saline Flush 10 ML SYR IVP ×4 (09:57→20:39)
[2021-12-10 10:06] LABS: Bilirubin Negative (Negative); Blood Negative (Negative); Clarity Clear (Clear); Glucose Negative (Negative); Ketones Negative (Negative); Leukocyte Esterase Negative (Negative); Nitrite Negative (Negative); Urobilinogen 0.2 EU/dL (Up TO 0.2)
[2021-12-10 10:19] LABS: Bacteria Rare HPF (Negative); C & S Indicated? C&S Done As Ordered; Casts Negative LPF (Negative); Crystals Negative HPF (Negative); Epithelial Cells Few HPF (Negative); Mucus Trace (Negative); Other Cells Negative (Negative); RBC Negative HPF (0-2); WBC 0-2 HPF (0-5)
--- NOTE | 2021-12-10 10:28 | PDOC.CMPRO ---
- If Service Date Differs Date of service: 12/10/21 Time of Service: 10:28 Care Management Progress Note S/O: NORMAN spoke with Denisse today around 1440pm. She c/o nausea and back pain, overall she just wasn't feeling well. Denisse mentioned that it was her boyfriends birthday yesterday and she ate 3 pieces of unicorn birthday cake and stated that a lot of sugar makes her sick. During our conversation, Denisse's primary RN entered the room and Denisse asked asked if she could have her 4pm medications an hour early. In addition, Denisse mentioned that she did not tolerate her morning medications and vomited them up. Denisse had a acute medical event sometime around 4pm, and was found unresponsive on her bathroom floor. A code response was called and she is now intubated in the ICU. During this time CM was able to reach patients s/o Carlos, and unable to reach pts mother Lashae and Father Toribio. Carlos came to the hospital and received updates from NORMAN and Dr. Caro. 1700 Contact is made to Densise's mom (via phone) and dad (in person). Both are updated, by Dr. Caro. A: 36 year old female admitted to [facility] 11/27/21 for multi-focal pneumonia, IVDU P: Denisse continues to be treated with IV ABX, though her fevers continue at this time per MD. Ongoing I&D consult and possible surgical consult, if indicated. Methadone treatment continues while inpatient-last dose letter will be provided upon discharge for transition of care. NORMAN continues to support care coordination with [facility], [facility] and [place]. Anticipate Denisse may discharge to [facility], where she can reside with her daughter. She will follow up with community based providers and transport via private vehicle with family.
[2021-12-10] MEDS: Patch Removal 2 EACH TP (10:43)
[2021-12-10] MEDS: VANCOMYCIN/WATER (PEG) 1 GM/200 ML BAG IVPB (11:10)
[2021-12-10 12:47] LABS: *AMPHETAMINES SCREEN URINE Negative (Negative); *BARBITURATES SCREEN URINE Negative (Negative); *BENZODIAZEPINES SCREEN URINE Negative (Negative); Cannabinoids THC Negative (Negative); Cocaine Screen,Urine Negative (Negative); METHADONE URINE SCREEN Positive (Negative); OPIATES URINE SCREEN Negative (Negative)
[2021-12-10 12:48] LABS: Tricyclic Antidepressants Negative (Negative)
[2021-12-10] MEDS: Levalbuterol HFA 15 GM INH 2 PUFF IH (12:59)
[2021-12-10] MEDS: LORazepam 2 MG/ML VIAL 0.5 MG IVP (15:03)
[2021-12-10] MEDS: Naloxone 0.4 MG/ML VIAL IVP (15:40)
[2021-12-10 16:35] LABS: BE -15 mmol/L (-2-3); HCO3 18 mmol/L (22-26); sO2 19 % (95-98); tCO2 20 mmol/L (23-27)
[2021-12-10 16:37] LABS: pCO2 94 mmHg (35-45); pH 6.89 (7.35-7.45)
[2021-12-10 16:38] LABS: pO2 28 mmHg (80-105)
[2021-12-10] MEDS: SODIUM BICARBONATE 150 MEQ in DEXTROSE 5%-WATER 850 ML 100 MEQ IV (16:40)
[2021-12-10] MEDS: PROPOFOL 1,000 MG/100 ML BTL 18.3 MG IVPB ×3 (16:45→23:00)
--- NOTE | 2021-12-10 16:45 | DI.RAD_ITS ---
Exam(s) XR PORTABLE CHEST AP EXAM: XR PORTABLE CHEST AP CLINICAL HISTORY: tube placement. TECHNIQUE: 2D digital imaging was performed. COMPARISON: CT CT CHEST/ABD/PEL WO from 12/04/2021 CR,XR XR PORTABLE CHEST AP from 12/07/2021 FINDINGS: Single AP portable view. The patient is now intubated. Distal tip of the endotracheal tube is in satisfactory position above the melissa. NG tube is noted in the stomach. Heart size is upper normal. The mediastinum is not widened. Multiple bilateral nodular infiltrates again noted throughout both lung valdivia. No obvious pleural e ffusions. No pneumothorax. There is a left subclavian catheter which is coiled in the subclavian vein left of center. IMPRESSION: Findings as above. DATA REPOSITORY: RADIATION DOSE DELIVERED:
--- NOTE | 2021-12-10 17:15 | DI.RAD_ITS ---
Exam(s) XR PORTABLE CHEST AP POST LINE EXAM: XR PORTABLE CHEST AP POST LINE CLINICAL HISTORY: Central line placement. TECHNIQUE: 2D digital imaging was performed. COMPARISON: CR XR PORTABLE CHEST AP from 12/10/2021 FINDINGS: Single AP portable view. Endotracheal tube is in satisfactory position and an NG tube is noted in the stomach. Heart size is upper normal. The mediastinum is not widened. Distal tip of the left subclavian central line is in the SVC just beyond the junction with the innomi ashish vein. On the opposite-right side there is a PICC line. Its distal tip appears to be in the axi llary vein. Nodular infiltrates again noted throughout both lung valdivia. No pleural effusions. No pneumothorax. IMPRESSION: As above. The left subclavian central line is in satisfactory position at this time DATA REPOSITORY: RADIATION DOSE DELIVERED:
--- NOTE | 2021-12-10 17:31 | W.ANESAIR ---
Airway Management Note Procedure Date and Time DO NOT use this note for patients in the OR, Use Intraop Record Instead Date Performed: 12/10/21 Procedure Time: 16:04 Procedure Location Procedure Location: Intensive Care Unit Requesting Provider: Gracie Caro Number of Previous Intubation attempts by other providers: 0 Procedure Type Procedure Type: Emergency Pre-Induction Setup Sterility: Hand Hygiene, Surgical Cap and Surgical Mask Preinduction Setup: Standard monitors applied, BVM at bedside, Suction ready, Airway equipment ready, Medications ready, IV/IO access patent & flowing and Post induction medications ready Induction Induction Time: 16:04 Induction setup: Pt. evaluated prior to induction, Bag Valve Mask Ventilation, Cervical immobilization maintained and Rapid Sequence Induction Induction Medications (Indicate Dose Given): Ketamine IV Dose:: 50mg, Propofol IV Dose:: 200mg wasted and Succinylcholine IV Dose:: 100mg Mask Ventilation: 2 provider Technique (RT) and Oral Airway Used Airway Device Airway Type: Intubation Laryngoscopy: Atraumatic Laryngoscopy and Teeth Intact Airway Grade: 1 Airway Blades: Glidescope 3 Endotracheal Tube: Oral, Cuffed and 7.0mm ETT Depth Where Secured (cm): 21 Placement Confirmation: Cuff inflated with minimally occlusive pressure, Secured with commercial device, Bilateral breath sounds, ETCO2 waveform present and Depth to teeth Number of Attempts (See previous attempts in note section): 1 Post Induction Management Post Induction Medications (Indicate Dose Given): Managed by Requesting Provider, Atropine IV Dose:: 1mg and Epinephrine IV Dose:: 1mg Gastric Tube Gastric Tube: Placed by Other Person Procedure Complications Procedure Complications: Other (Periarrest scenario) Procedure Outcome Procedure Outcome: Successful Procedure Comment: Called for a CODE BLUE in 217. Arrived to find pt. in ICU now with poorly effective respirations, being placed on monitor and assessing for pulse.. Equipment and medications prepared given closed mouth. Just prior to intubation, she became pulseless and CPR began. Intubated with brief pause in CPR with good ETCO2 return. Tube secured. Pt. noted to have bradycardia and 1mg atropine given with good effect. Shortly after, pulseless again and 1mg epi given. Assisted Dr. Caro who was primary provider. See her note for complete details. Proceduralist Performed By: Arron Hillman
[2021-12-10 17:52] LABS: HCO3 8 mmol/L (22-26); pCO2 40 mmHg (35-45); pO2 145 mmHg (80-105); sO2 96 % (95-98); tCO2 9 mmol/L (23-27)
[2021-12-10 17:56] LABS: FIO2 60 %; Site Left Radial; pH 6.93 (7.35-7.45)
--- NOTE | 2021-12-10 17:59 | CHAPLAIN ---
Denisse was transferred to the ICU from Med/Surg today following a code. She was found unresponsive in her bathroom. After CPR was administered, a pulse was found. She is intubated. Her boyfriend, Carlos, and her dad have been here. I will continue to support family. Dr. Caro explained to Carlos, and later Denisse's dad, that she is not sure how much of Denisse they were able to revive as she was without a heart rate for some time.
[2021-12-10 18:41] LABS: Lactate 9.5 mmol/L (0.6-1.4)
--- NOTE | 2021-12-10 18:42 | W.PM.PROGNOT ---
Date of Service Date of service: 12/10/21 Time of Service: 15:45 Assessment and Plan Assessment and plan (1) Cardiac asystole: Status: Acute (2) Lack of intravenous access: Status: Acute Assessment and plan: Ms Mcdermott is a 36-year-old female who was found down in her room with apneic breathing. She was brought to the ICU where she coded. I spent 3 hours with the patient helping with resuscitation and line placement. Subjective Subjective Interval history since last seen: Went to ICU for CODE BLUE. Patient of the hospitalists who was found down with agonal breathing. She was brought to the ICU were she coded. She was intubated and CPR was started. Eventually we got a pulse back. I was asked to place a Central line and a-line. Patient here for sepsis from iV drug abuse. HAs cardiac vegetations. Found down in her room with apneic respirations and brought to the ICU where she was intubated. Patient Coded 3 times. Central Line and a-line placed: Pre-op Dx: Code blue, need for IV access Post-op Dx: same Procedure: 1. attempted femoral Central line 2. Left subclavian triple lumen central line 3. Left radial artery a-line placement Surgeon: Tomer Rodríguez MD Anesthesia: Vented on Propofol Blood loss: 25 cc Specimen: none Complications: no immediate complications Procedure: During the first episode of CPR the patient's right groin was quickly prepped and draped in a sterile surgical fashion. The central line kit was opened. The long needle was inserted into what looked like the femoral vein. The removed blood was dark in color and did not look pulsatile. The guidewire was placed without difficulty into the vessel. The needle was removed. A small incision was made at the entrance of the guidewire with the 11 blade and the kit. The dilator was placed over the wire into the vessel. The dilator was removed and the triple-lumen catheter was placed over the guidewire into the vessel. The catheter was secured in place using a 2-0 silk suture. At this point the patient regained a pulse, and at that point I saw some pulsatile movement within the catheter. A guidewire was placed back into the vessel and the triple-lumen catheter removed. A femoral A-line catheter was placed over the guidewire into the vessel and secured in place with a pressure dressing. We could not get a good waveform from this arterial line so the catheter was removed and pressure was held for a minute. Another pressure dressing was applied. At this point the left chest wall was quickly prepped and draped in a sterile surgical fashion. Using the needle in a second central line kit the subclavian vein was found. Blood was easily pulled back. The guidewire was placed without any difficulty. A small incision was made at the entrance of the guidewire with the 11 blade and the dilator was placed over the guidewire into the subclavian vein. The dilator was removed and the true lumen catheter was placed over the guidewire into the vessel. The catheter secured. A chest x-ray was done and showed the tip of the catheter folded on itself. The sutures were cut and the catheter was pulled back and I was unable to straighten it without removing the catheter completely. Catheter was removed over the guidewire. Another central line kit was opened and a new triple-lumen catheter was placed over the guidewire it seemed to go a little bit easier this time. A follow-up chest x-ray showed the catheter in good position without any kinks. The catheter was secured. The skin was cleaned and dried and a dressing was applied. All 3 ports were flushed with saline. Blood was easily pulled back on all 3 ports. Next her left wrist was prepped and draped in a sterile surgical fashion. The radial artery arterial line kit was opened and a catheter was easily placed into the radial artery. The catheter was secured with a 2-0 silk suture and a dry dressing was applied to the. There was good waveform once the catheter was attached to the arterial line tubing. Objective Last Vital Signs Temp 97.9 F 12/10/21 12:07 Pulse 109 H 12/10/21 12:07 Resp 17 12/10/21 12:07 BP 105/59 L 12/10/21 12:07 Pulse Ox 92 12/10/21 12:07 Laboratory Results - last 24 hr 12/10/21 12/10/21 12/10/21 07:00 07:00 07:00 WBC 12.39 H RBC 4.07 Hgb 10.9 L Hct 33.2 L MCV 82 MCH 26.8 L MCHC 32.8 RDW 15.7 H Plt Count 375 MPV 9.1 Immature Gran % 0.6 Neutrophils % 70.6 Lymphocytes % 17.0 Monocytes % 5.6 Eosinophils % 5.6 Basophils % 0.6 Nucleated RBC % 0.0 Absolute Neutrophils 8.75 H Absolute Lymphocytes 2.11 Absolute Monocytes 0.69 Absolute Eosinophils 0.69 Absolute Basophils 0.07 ABG Sample Site ABG pH ABG pCO2 ABG pO2 ABG HCO3 ABG Total CO2 ABG O2 Saturation ABG Base Excess VBG Lactate Oxygen Liter Flow FiO2 Sodium 136 Potassium 4.9 Chloride 101 Carbon Dioxide 23.9 Anion Gap 11.1 H BUN 19 H Creatinine 0.7 Est GFR (CKD-EPI 2020) 114.16 Glucose 76 Calcium 9.4 Magnesium 2.2 Total Bilirubin 0.2 Conjugated Bilirubin 0.1 AST 24 ALT 41 Alkaline Phosphatase 279 H C-Reactive Protein 14.38 H Total Protein 9.0 H Albumin 2.7 L Procalcitonin 0.6 Urine Color Urine Clarity Urine pH Ur Specific [place] Urine Protein Urine Ketones Urine Blood Urine Nitrite Urine Bilirubin Urine Urobilinogen Ur Leukocyte Esterase Urine RBC Urine WBC Ur Epithelial Cells Urine Crystals Urine Bacteria Urine Casts Urine Mucus Urine Other Ur Culture Indicated? Urine Glucose Vancomycin Trough Urine Opiates Screen Urine Methadone Screen Ur Barbiturates Screen Ur Tricyclics Screen Ur Amphetamines Screen U Benzodiazepines Scrn Urine Cocaine Screen Ur THC Screen 12/10/21 12/10/21 12/10/21 09:30 09:41 09:41 WBC RBC Hgb Hct MCV MCH MCHC RDW Plt Count MPV Immature Gran % Neutrophils % Lymphocytes % Monocytes % Eosinophils % Basophils % Nucleated RBC % Absolute Neutrophils Absolute Lymphocytes Absolute Monocytes Absolute Eosinophils Absolute Basophils ABG Sample Site ABG pH ABG pCO2 ABG pO2 ABG HCO3 ABG Total CO2 ABG O2 Saturation ABG Base Excess VBG Lactate Oxygen Liter Flow FiO2 Sodium Potassium Chloride Carbon Dioxide Anion Gap BUN Creatinine Est GFR (CKD-EPI 2020) Glucose Calcium Magnesium Total Bilirubin Conjugated Bilirubin AST ALT Alkaline Phosphatase C-Reactive Protein Total Protein Albumin Procalcitonin Urine Color Yellow Urine Clarity Clear Urine pH 7.0 Ur Specific [place] 1.020 Urine Protein Trace H Urine Ketones Negative Urine Blood Negative Urine Nitrite Negative Urine Bilirubin Negative Urine Urobilinogen 0.2 Ur Leukocyte Esterase Negative Urine RBC Negative Urine WBC 0-2 Ur Epithelial Cells Few Urine Crystals Negative Urine Bacteria Rare Urine Casts Negative Urine Mucus Trace Urine Other Negative Ur Culture Indicated? C&S Done As Ordered Urine Glucose Negative Vancomycin Trough 15.0 Urine Opiates Screen Negative Urine Methadone Screen Positive A Ur Barbiturates Screen Negative Ur Tricyclics Screen Negative Ur Amphetamines Screen Negative U Benzodiazepines Scrn Negative Urine Cocaine Screen Negative Ur THC Screen Negative 12/10/21 12/10/21 12/10/21 16:20 17:48 18:17 WBC RBC Hgb Hct MCV MCH MCHC RDW Plt Count MPV Immature Gran % Neutrophils % Lymphocytes % Monocytes % Eosinophils % Basophils % Nucleated RBC % Absolute Neutrophils Absolute Lymphocytes Absolute Monocytes Absolute Eosinophils Absolute Basophils ABG Sample Site Unknown Left Radial ABG pH 6.89 L* 6.93 L* ABG pCO2 94 H* 40 ABG pO2 28 L* 145 H ABG HCO3 18 L 8 L ABG Total CO2 20 L 9 L ABG O2 Saturation 19 L 96 ABG Base Excess -15 L < -15 L VBG Lactate 9.5 H* Oxygen Liter Flow VT 370 PEEP 5 RR12 FiO2 60 Sodium Potassium Chloride Carbon Dioxide Anion Gap BUN Creatinine Est GFR (CKD-EPI 2020) Glucose Calcium Magnesium Total Bilirubin Conjugated Bilirubin AST ALT Alkaline Phosphatase C-Reactive Protein Total Protein Albumin Procalcitonin Urine Color Urine Clarity Urine pH Ur Specific [place] Urine Protein Urine Ketones Urine Blood Urine Nitrite Urine Bilirubin Urine Urobilinogen Ur Leukocyte Esterase Urine RBC Urine WBC Ur Epithelial Cells Urine Crystals Urine Bacteria Urine Casts Urine Mucus Urine Other Ur Culture Indicated? Urine Glucose Vancomycin Trough Urine Opiates Screen Urine Methadone Screen Ur Barbiturates Screen Ur Tricyclics Screen Ur Amphetamines Screen U Benzodiazepines Scrn Urine Cocaine Screen Ur THC Screen
[2021-12-10 18:50] LABS: HCT 32.4 % (36.0-46.0); MCH 27.2 pg (27.0-33.0); MCHC 30.9 % (32.0-36.0); MPV 9.6 fL (8.0-11.0); Platelet Count 467 10^3/uL (130-400); RBC 3.67 10^6/uL (3.93-5.22); RDW 16.1 % (11.7-14.6); RDW-SD 52.9 fL; WBC 20.28 10^3/uL (4.4-10.8)
[2021-12-10 18:52] LABS: MCV 88 fL (80-95)
--- NOTE | 2021-12-10 18:53 | DSE_ITS ---
Date of service: 12/10/21 Time of Service: 18:53 DS: Diagnosis Discharge Diagnosis (1) Sepsis: Status: Acute (2) Cardiac arrest with successful resuscitation: Status: Acute (3) Acute respiratory failure with hypoxia: Status: Acute (4) Metabolic acidosis: Status: Acute (5) Endocarditis: Status: Acute (6) Scalded skin syndrome: Status: Resolved (7) Pneumonia: Status: Acute (8) Bacteremia: Status: Acute (9) Intractable low back pain: Status: Acute (10) Hyponatremia: Status: Acute (11) ADHD, hyperactive-impulsive type: Status: Chronic (12) Mitral regurgitation: Status: Chronic (13) Pulmonary nodules: Status: Acute (14) Hyperkalemia: Status: Acute (15) Closed head injury: Status: Acute (16) Lactic acidosis: Status: Acute (17) PEGGY (acute kidney injury): Status: Acute (18) Fungemia: Status: Acute (19) RBBB: Status: Acute (20) Left posterior fascicular block (LPFB): Status: Acute (21) Anemia: Status: Chronic (22) Mild tricuspid regurgitation: Status: Acute (23) Opioid dependence: Status: Chronic (24) Hepatitis C: Status: Chronic (25) IV drug user: Status: Acute Discharge Plan Disposition Patient Disposition: [facility] Condition: Critical Discharge Details Reason For Visit: Multifocal Pneuomonia,IVDU Admit Date/Time: 11/27/21 19:07 Admit Provider: Sergio Acevedo Attending Provider: Sergio Acevedo Primary Care Provider: vIonne Hampton Hospital Course Hospital Course: Ms Mcdermott is a 36 year old female with PMHx of IVD use and h/o prior endocarditis, s/p R BKA, opioid depdence on methadone, ADHD on methylphenidate, suspected to be using it IV, who was admitted to [facility] under the hospitalist service on 11/27/21 for multifocal pneumonia and later found to be bacteremic with MRSA, having presented with cough and body aches as well as a fever and severe lower back pain. The patient was started on empiric vancomycin and cefepime, but continued on vancomycin alone once results of the blood cultures became known. MRI head through lumbar spine ruled out epidural abscess. Echoardiogram revealed a probable vegetation of the tricuspid valve with tricuspid valve leaflet thickening. There was evidence of mild tricuspid regurgitation and mild mitral regurgitation. She did have findings of scalded skin syndrome on her hands. The patient remained hospitalized while receiving IV vancomycin until her blood cultures grew organisms other than MRSA (strep salivarius and strep mitis, strep mutans), at which point ceftriaxone was introduced (12/07/21) and midline removed with a PIV placed x 24 hrs. Another midline was inserted when this line came out 24 hrs later. Micafungin was introduced on 12/08/21 when yeast was also reported in one of the blood cultures (line draw). On 12/08/21, the patient also reported symptoms of pharyngitis and had evidence of thrush. The patient had become hypoxic on the night of 12/07/21 and was more edematous. Her hypoxia and shortness of breath re solved with 1 dose of furosemide 20 mg IV. Flash pulmonary edema could not be ruled out. The patient does have evidence of septic emboli in her lungs on CT imaging. During the entirety of the patient's hospitalization, there was a strong suspicion that she might be injecting herself via her IV access while in the bathroom - possibly with methylphenidate, but this has never been confirmed. UDSs have been consistent positive for methadone only. Today, the patient was reporting worsening of her lumbar back pain, for which she was ordered to undergo an MRI of her lumbar spine with 0.5 mg of IV ativan ordered as pre- medication. About 40 minutes later the patient was found on the floor in the bathroom with agonal breaths and dilated pupils. It is suspected that she hit her head. Per nursing, the patient was conversant and responsive at her baseline mental status just 5 minutes prior to being found. She was hypoxic and unresponsive but initially still had a pulse. She did not respond to either narcan or flumazenil and was transferred to the ICU for impending respiratory arrest with code blue called. In the ICU, the patient became bradycardic to 30s, received atropine but did, in fact,end up losing her pulse with chest compressions being initiated and epinephrine given x 2 prior to regaining of the pulse with sinus complexes on the monitor. More narcan has been administered throughout the code. The patient was emergently intubated. Norepinephrine was initiated. She again lost her pulse, with resumption of chest compressions, more epinephrine given. Sodium bicarbonate and flumazenil were again repeated. Kian youngip initiated. Bicarb drip initiated. The patient regained her pulse. ABG revealed a pH of 6.89, pCO2 of 94, pO2 of 28, bicarb of 18, O2 sat of 19% on 100% with vent just being initiated. Repeat ABG showed a pH of 6.93, pCO2 of 40, pO2 of 145, bicarb of 8, and O2 sat of 96%. Her latest pH (19:40) is 7.03, w/ pCO2 of 37, pO2 of 88, bicarb of 10 and O2 sat of 91% on 80% fIo2. Post-code labs reveal a potassium of 7.0 which was treated with insulin + D50 and calcium chloride. Her lactate, which was initially 11 on the ABG is now down to 9.5. Her high sensitivity Troponin I is 750. Her EKG shows a RBBB and a LPFB. These findings were not seen on admission and raise a concern of a possible AV floresita abscess. During the code both central and arterial lines were placed. The patient did start to show evidence of wakefulness, squeezing my hand, opening eyes, responding to painful stimuli. Propofol was initiated for sedation. CT head and c-spine were negative. Parents and boyfriend were contacted and indicated that they wanted everything done, including transfer to a tertiary care center where [id number] critical care as well as specialty care such as DEBORAH and infectious diseases consultation could be provided. No critical care beds were available at [facility]. The patient was accepted in transfer to [facility] by Dr Aragon of critical care medicine. His assistance is greatly appreciated. Her culture data is as follows: Blood cultures 11/27/21 (only 1 set collected): MRSA (sensitive to vancomycin). Blood cultures 11/28/21 (4/4 bottles): MRSA Blood cultures 11/30/21 (4/4 bottles): MRSA Blood cultures 12/02/21 (3/4 bottles): MRSA Blood cultures 12/05/21 line draw (midline): Strep salivarius, strep mitis, and yeast. ? peripheral draw: strep mutans (viridans). Blood cultures 12/06/21: line draw: Acinetobacter baumanii complex, strep salivarius, staph epidermidis ? peripheral draw: NGTD Cath tip cx 12/07 (midline): rare GPCs, GP naldo Sputum cx 12/08: Normal truman, bud albicans Blood cultures 12/08/21: NGTD Blood cultures 12/10/21: pending (collected due to a new fever and a worsening of leucocytosis) Antibiotic hx: vancomycin 11/27/21 - present Ceftriaxone 12/07/21 - present micafungin 12/08/21 - present Please see MAR for list of inpatient medications. The list of medications below reflects outpatient prescriptions. Total Critical Care Time 180 minutes. Home Meds and New Rx's Prescriptions: No Action naloxone [Narcan] 4 mg/actuation spray,non-aerosol 4 mg intranasal Q2M PRN Label Comments: Patient does not have supply at home Rx Instructions: spray 1 dose into ONE nostril; alternate nostrils w each dose until help arrives gabapentin 800 mg tablet 800 mg PO QID Label Comments: TAKE ONE TABLET BY MOUTH FOUR TIMES A DAY methadone 10 mg/mL Concentrate 125 mg PO DAILY Rx Instructions: CONFIRMED DOSE WITH BAART 08/20/21 125MG QAM Acetaminophen [Tylenol] 650 mg PO Q4H PRN PRNQty: 0 0RF olanzapine 5 mg tablet 1 tab PO HS Label Comments: TAKE ONE TABLET BY MOUTH EVERY EVENING AND EVERY 8 HOURS FOR AGITATION methylphenidate HCl 10 mg tablet 10 mg PO TID Rx Instructions: take with 20 mg cap for 30 mg tid duloxetine 30 mg capsule,delayed release(DR/EC) 30 mg PO DAILY dexmethylphenidate [Focalin XR] 30 mg capsule,ER biphasic 50-50 30 mg PO DAILY Label Comments: 1 capsule by mouth once a day methylphenidate HCl 20 mg tablet 20 mg PO TID Label Comments: TAKE 1 TABLET BY MOUTH THREE TIMES DAILY. MAY FILL WHEN FOCALIN DUE Rx Instructions: Dexmethylphenidate ER 30mg QAM, Methylphenidate IR 20mg TID Discharge Instructions Activity:: bedrest Equipment/Supplies:: vent Diet:: NPO Discharge Orders Discharge Orders: Discharge Order (Routine); Ordered 12/10/21 Ordered By: Gracie Caro DS: Summary Time Spent with Patient providing and/or coordinating discharge services: Greater than 30 minutes Status at Discharge Functional status at discharge: bed bound Overall status at discharge: patient is not back to baseline Mental Status: other Speech and Movement: other Mood: other Affect: other Exam Narrative Exam Narrative: General: female, intubated/sedated, ET and OG tubes in place, c-collar on HEENT: symmetric dilated pupils, not tracking, dry MM Heart: RRR, tachycardic Lungs: CTAB Abdomen: soft, nondistended Extremities: s/p R BKA - stump well healed, +1 edema LLE Psych Mental Status: other Speech and Movement: other Mood: other Affect: other DS: Data Vitals/I&O Vitals and I&O: Vital Signs Temperature 36.6 C 12/10/21 12:07 Temperature Source Tympanic 12/10/21 12:07 Pulse 109 H 12/10/21 12:07 Pulse Rhythm Regular 12/10/21 07:05 Respiratory Rate 17 12/10/21 12:07 Respiratory Effort 12/10/21 15:30 Respiratory Depth Normal 12/10/21 07:05 Respiratory Pattern Normal 12/10/21 02:37 Blood Pressure 105/59 L 12/10/21 12:07 Blood Pressure Position Sitting 11/27/21 10:39 Pulse Oximetry 92 12/10/21 12:07 Oxygen Delivery Method Room Air 12/10/21 12:07 Oxygen Flow Rate 0 12/10/21 12:07 Pain Level 10 12/10/21 12:07 Comment 12/06/21 00:36 Intake & Output 12/09/21 12/10/21 12/10/21 23:59 11:59 23:59 Intake Total 300 / 1790 250 / 250 Balance 300 / 1790 250 / 250 Intake: IV 300 / 620 250 / 250 Other: Comment Pt voiding in toilet independently pT goes to the bathroom independently. Stool Size Moderate Stool Characteristics Liquid Soft Emesis Description Retching Voiding Methods Toilet Toilet Data Completed and Pending Completed studies during hospitalization [Text1]: CXR 11/27/21: There are patchy nodular infiltrates throughout both lungs.? These were not present on 06/01/2021.? There are no pleural effusions. XR thoracic spine 11/27/21: Mild compression fracture at superior endplate of T12, not new. This was evident on CT scan July 2021. There is also more prominent compression fracture of L1 again noted. Lumbar XR 11/27/21: Compression fractures of T12 and L1 appear similar to the CT scan of July 2021.? No additional fractures identified.? No disc space narrowing.? No listhesis.? No radiographic evidence of osteomyelitis. XR tib/fib 11/27/21: Again noted is below-knee amputation.? Amputation lines are sharp.? No radiographic evidence of osteomyelitis.? No gas in the soft tissues. Lumbar spine MRI w/w/o contrast 11/27/21: 1. Fractures T12-L1 which were prev iously present on CT scan of 07/13/2021.? There is no gross compromise of the spinal canal at these levels, realizing the severe limitations the study due to the significant amount of motion THoracic spine MRI w/w/o contrast 11/27/21: 1. Limited study due to the amount of motion artifact, particularly in the axial images. 2. However, there are fractures of T12 and L1, mild at L2-12 superior endplate level and not new.? More prominent at L1 level which is beyond the field of view of this study and seen on the lumbar spine MRI.? Both of these findings are not new 3. Difficult to determine if there abnormal enhancing structures on the axial images but none on the sagittal sequences. XR R shoulder 11/28/21: Unremarkable radiographs of the right shoulder. Echo 11/28/21; Normal left ventricular wall thickness and chamber size.? Estimated ejection fraction is 60 to 65%.? Wall motion is normal Normal right ventricular size and systolic function Both atria are normal in size Tricuspid valve leaflets appear thickened with probable vegetation Mild tricuspid regurgitation, 2 jets There are no additional valvular abnormalities MRI brain w/w/o contrast 11/29/21: Unremarkable MRI of the brain. MRI c-spine w/w/o contrast 11/29/21: Unremarkable MRI of the cervical spine. CT chest/abdomen/pelvis 12/04/21: Increased displacement of anterior vertebral body fragment of L1 since July 13.? No gross involvement of the posterior elements or the spinal canal. Multiple pulmonary lesions as described above, appearance is consistent with numerous bilateral septic emboli. Multifocal mild lymphadenopathy noted as described above. CXR 12/07/21: Extensive bilateral patchy nodular infiltrates throughout both lung valdivia again noted.? No improvement.? No pleural effusions. CT head/c-spine w/o contrast 12/10/21: No acute intracranial abnormality. The images of the lower cervical spine are mildly motion degraded from approximately C5 through C7. No evidence for acute cervical spine fracture, given limitations of motion degradation. CXR 12/10/21: The patient is now intubated.? Distal tip of the endotracheal tube is in satisfactory position above the melissa.? NG tube is noted in the stomach. Heart size is upper normal.? The mediastinum is not widened. Multiple bilateral nodular infiltrates again noted throughout both lung valdivia.? No obvious pleural effusions.? No pneumothorax. There is a left subclavian catheter which is coiled in the subclavian vein left of center. CXR #2 12/10/21: Endotracheal tube is in satisfactory position and an NG tube is noted in the stomach. Heart size is upper normal.? The mediastinum is not widened. Distal tip of the left subclavian central line is in the SVC just beyond the junction with the innominate vein.? On the opposite-right side there is a PICC line.? Its distal tip appears to be in the axillary vein. Nodular infiltrates again noted throughout both lung valdivia.? No pleural effusions.? No pneumothorax. Labs on day of discharge: Labs from last 24 hours 12/10/21 12/10/21 12/10/21 21:00 18:17 18:17 WBC Pending RBC Pending Hgb Pending Hct Pending MCV Pending MCH Pending MCHC Pending RDW Pending Plt Count Pending MPV Pending Immature Gran % Pending Neutrophils % Pending Lymphocytes % Pending Monocytes % Pending Eosinophils % Pending Basophils % Pending Nucleated RBC % Absolute Neutrophils Pending Absolute Lymphocytes Pending Absolute Monocytes Pending Absolute Eosinophils Pending Absolute Basophils Pending ABG Sample Site ABG pH ABG pCO2 ABG pO2 ABG HCO3 ABG Total CO2 ABG O2 Saturation ABG Base Excess VBG Lactate 9.5 H* Oxygen Liter Flow FiO2 Sodium Potassium Chloride Carbon Dioxide Anion Gap BUN Creatinine Est GFR (CKD-EPI 2020) Glucose Calcium Magnesium Total Bilirubin Conjugated Bilirubin AST ALT Alkaline Phosphatase Troponin I Pending C-Reactive Protein Total Protein Albumin Procalcitonin Urine Color Urine Clarity Urine pH Ur Specific [place] Urine Protein Urine Ketones Urine Blood Urine Nitrite Urine Bilirubin Urine Urobilinogen Ur Leukocyte Esterase Urine RBC Urine WBC Ur Epithelial Cells Urine Crystals Urine Bacteria Urine Casts Urine Mucus Urine Other Ur Culture Indicated? Urine Glucose Vancomycin Trough Urine Opiates Screen Urine Methadone Screen Ur Barbiturates Screen Ur Tricyclics Screen Ur Amphetamines Screen U Benzodiazepines Scrn Urine Cocaine Screen Ur THC Screen 12/10/21 12/10/21 12/10/21 18:17 17:48 16:20 WBC RBC Hgb Hct MCV MCH MCHC RDW Plt Count MPV Immature Gran % Neutrophils % Lymphocytes % Monocytes % Eosinophils % Basophils % Nucleated RBC % Absolute Neutrophils Absolute Lymphocytes Absolute Monocytes Absolute Eosinophils Absolute Basophils ABG Sample Site Left Radial Unknown ABG pH 6.93 L* 6.89 L* ABG pCO2 40 94 H* ABG pO2 145 H 28 L* ABG HCO3 8 L 18 L ABG Total CO2 9 L 20 L ABG O2 Saturation 96 19 L ABG Base Excess < -15 L -15 L VBG Lactate Oxygen Liter Flow VT 370 PEEP 5 RR12 FiO2 60 Sodium Pending Potassium Pending Chloride Pending Carbon Dioxide Pending Anion Gap Pending BUN Pending Creatinine Pending Est GFR (CKD-EPI 2020) Pending Glucose Pending Calcium Pending Magnesium Pending Total Bilirubin Conjugated Bilirubin AST ALT Alkaline Phosphatase Troponin I Pending C-Reactive Protein Total Protein Albumin Procalcitonin Urine Color Urine Clarity Urine pH Ur Specific [place] Urine Protein Urine Ketones Urine Blood Urine Nitrite Urine Bilirubin Urine Urobilinogen Ur Leukocyte Esterase Urine RBC Urine WBC Ur Epithelial Cells Urine Crystals Urine Bacteria Urine Casts Urine Mucus Urine Other Ur Culture Indicated? Urine Glucose Vancomycin Trough Urine Opiates Screen Urine Methadone Screen Ur Barbiturates Screen Ur Tricyclics Screen Ur Amphetamines Screen U Benzodiazepines Scrn Urine Cocaine Screen Ur THC Screen 12/10/21 12/10/21 12/10/21 09:41 09:41 09:30 WBC RBC Hgb Hct MCV MCH MCHC RDW Plt Count MPV Immature Gran % Neutrophils % Lymphocytes % Monocytes % Eosinophils % Basophils % Nucleated RBC % Absolute Neutrophils Absolute Lymphocytes Absolute Monocytes Absolute Eosinophils Absolute Basophils ABG Sample Site ABG pH ABG pCO2 ABG pO2 ABG HCO3 ABG Total CO2 ABG O2 Saturation ABG Base Excess VBG Lactate Oxygen Liter Flow FiO2 Sodium Potassium Chloride Carbon Dioxide Anion Gap BUN Creatinine Est GFR (CKD-EPI 2020) Glucose Calcium Magnesium Total Bilirubin Conjugated Bilirubin AST ALT Alkaline Phosphatase Troponin I C-Reactive Protein Total Protein Albumin Procalcitonin Urine Color Yellow Urine Clarity Clear Urine pH 7.0 Ur Specific [place] 1.020 Urine Protein Trace H Urine Ketones Negative Urine Blood Negative Urine Nitrite Negative Urine Bilirubin Negative Urine Urobilinogen 0.2 Ur Leukocyte Esterase Negative Urine RBC Negative Urine WBC 0-2 Ur Epithelial Cells Few Urine Crystals Negative Urine Bacteria Rare Urine Casts Negative Urine Mucus Trace Urine Other Negative Ur Culture Indicated? C&S Done As Ordered Urine Glucose Negative Vancomycin Trough 15.0 Urine Opiates Screen Negative Urine Methadone Screen Positive A Ur Barbiturates Screen Negative Ur Tricyclics Screen Negative Ur Amphetamines Screen Negative U Benzodiazepines Scrn Negative Urine Cocaine Screen Negative Ur THC Screen Negative 12/10/21 12/10/21 12/10/21 07:00 07:00 07:00 WBC 12.39 H RBC 4.07 Hgb 10.9 L Hct 33.2 L MCV 82 MCH 26.8 L MCHC 32.8 RDW 15.7 H Plt Count 375 MPV 9.1 Immature Gran % 0.6 Neutrophils % 70.6 Lymphocytes % 17.0 Monocytes % 5.6 Eosinophils % 5.6 Basophils % 0.6 Nucleated RBC % 0.0 Absolute Neutrophils 8.75 H Absolute Lymphocytes 2.11 Absolute Monocytes 0.69 Absolute Eosinophils 0.69 Absolute Basophils 0.07 ABG Sample Site ABG pH ABG pCO2 ABG pO2 ABG HCO3 ABG Total CO2 ABG O2 Saturation ABG Base Excess VBG Lactate Oxygen Liter Flow FiO2 Sodium 136 Potassium 4.9 Chloride 101 Carbon Dioxide 23.9 Anion Gap 11.1 H BUN 19 H Creatinine 0.7 Est GFR (CKD-EPI 2020) 114.16 Glucose 76 Calcium 9.4 Magnesium 2.2 Total Bilirubin 0.2 Conjugated Bilirubin 0.1 AST 24 ALT 41 Alkaline Phosphatase 279 H Troponin I C-Reactive Protein 14.38 H Total Protein 9.0 H Albumin 2.7 L Procalcitonin 0.6 Urine Color Urine Clarity Urine pH Ur Specific [place] Urine Protein Urine Ketones Urine Blood Urine Nitrite Urine Bilirubin Urine Urobilinogen Ur Leukocyte Esterase Urine RBC Urine WBC Ur Epithelial Cells Urine Crystals Urine Bacteria Urine Casts Urine Mucus Urine Other Ur Culture Indicated? Urine Glucose Vancomycin Trough Urine Opiates Screen Urine Methadone Screen Ur Barbiturates Screen Ur Tricyclics Screen Ur Amphetamines Screen U Benzodiazepines Scrn Urine Cocaine Screen Ur THC Screen 12/10/21 10:15 Blood Blood Culture - Pending 12/10/21 09:41 Urine - Clean Catch Urine Culture - Pending 12/10/21 09:30 Blood Blood Culture - Pending Preliminary micro results at discharge 12/08/21 16:05 Blood Culture - Preliminary Blood NO GROWTH 48 HOURS 12/08/21 15:47 Blood Culture - Preliminary Blood NO GROWTH 48 HOURS 12/06/21 11:10 Blood Culture - Preliminary Blood NO GROWTH 96 HOURS 12/10/21 10:15 Blood Culture - Pending Blood 12/10/21 09:41 Urine Culture - Pending Urine - Clean Catch 12/10/21 09:30 Blood Culture - Pending Blood 12/08/21 09:10 Sputum Culture - Preliminary Sputum - Expectorated Normal Truman Bud Albicans PFSH All Active Problems (Updated 12/10/21 @ 20:14 by Gracie Caro MD) IV drug user (Acute) Hepatitis C (Chronic) Mild tricuspid regurgitation (Acute) Left posterior fascicular block (LPFB) (Acute) RBBB (Acute) Acute respiratory failure with hypoxia (Acute) Fungemia (Acute) PEGGY (acute kidney injury) (Acute) Lactic acidosis (Acute) Closed head injury (Acute) Metabolic acidosis (Acute) Hyperkalemia (Acute) Cardiac arrest with successful resuscitation (Acute) Pulmonary nodules (Acute) Anemia (Chronic) Discharge planning issues (Acute) DVT prophylaxis (Acute) Endocarditis (Acute) Sepsis (Acute) Bacteremia (Acute) Intractable low back pain (Acute) Pneumonia (Acute) Anemia (Chronic) Hyponatremia (Acute) Cellulitis of left hand (Acute) Foreign body in foot, left (Acute) Localized swelling of left lower extremity (Acute) Cellulitis of hand, right (Acute) Cellulitis (Acute) Throat pain in adult (Acute) (Acute) Smoker (Acute) Viral illness (Acute) Dehydration (Acute) ADHD, hyperactive-impulsive type (Chronic 05/14/16) Subacute endocarditis (Acute 01/22/16) MSSA endocarditis January, Cardiomyopathy (Chronic 01/22/16) Pleural effusion, bilateral (Acute 01/22/16) History of prior with IUGR (Acute 01/11/15) History of kidney injury (Acute 01/17/16) Acute January, History of drug abuse (Acute 01/17/16) In IP treatment at [facility], no longer on methadone as of 01/17/16. Family court is close to resolved - will end . She is expecting 1st daughter to come home. Depression (Acute 01/11/15) Chronic hepatitis C without hepatic coma (Chronic 01/11/15) Bacterial vaginosis (Acute 05/24/13) Rx with Metronidazole cream given 2/11/16. Anemia of chronic disease (Acute 01/17/16) Insomnia (Acute) Discharge planning issues (Acute) DVT prophylaxis (Acute) Fever (Acute) Prepatellar bursitis of right knee (Acute) Edema (Acute) Mitral regurgitation (Chronic) Opioid dependence (Chronic) Anemia (Chronic) Anxiety (Chronic) Medical History ADHD Alcohol abuse Amputation of right foot COVID-19 virus infection Depression difficulty bonding with 2nd child. child removed from her custody. was on Wellbutrin but had sz and not on meds at this time. has appt with counselor 03/2015 Effusion, right knee Herpes, vulvar History of depression HSV infection Hx of who one week after . ? HSV or H1N1 infection. Pt has been on prophylaxis with pregnancies. Hx of cocaine abuse Paresthesia of both hands Personality disorder examination or test, positive result PTSD (post-traumatic stress disorder) Surgical History Amputation 12/23/16;[facility]; RIGHT BELOW THE KNEE section (11/24/12) PCD @ 34w. [id number]. 03/26/15 RCD. Pt arrived in labor and declined SUN. Chad Lopez. Family History Mother No problems noted. Father No problems noted. Brother No problems noted. Grandfather No problems noted. Grandfather No problems noted. Grandmother No problems noted. Grandmother No problems noted. Son No problems noted. Son No problems noted. Daughter No problems noted. Daughter No problems noted. Social History Smoking/Tobacco Use Status: Current every day Tobacco Type: cigarettes Smoking risk assessment performed?: Yes Alcohol Intake: former Drug use: Occasionally Substance use type: former substance user, marijuana, crack/cocaine and heroin Do you feel safe at home: Yes Do you feel safe in your relationship?: Yes Additional Social history: pt states she is on methadone History History 4 Para 4 Hx # Term Pregnancies Multiple births Hx # Pregnancies Ectopic pregnancies AB induced Hx Number of Living Children 3 AB spontaneous Past Pregnancies Del. Date GA/Weeks # Preg Succ Route Wgt Sex Labor Lgth Anesth esia Location Prov Complic 12/28/20 25 Delivery Date: 12/28/20 Last Updated by: Roxanna Rocha LPN Patient transferred OB care to [facility]
[2021-12-10 19:00] LABS: Anion Gap 21.6 mmol/L (3-11); BUN 26 mg/dL (7-18); CO2 13.4 mmol/L (21.0-32.0); CREATININE 1.7 mg/dL (0.55-1.02); Calcium 7.9 mg/dL (8.5-10.1); Chloride 102 mmol/L (98-107); Estimated GFR 39.36 (mL/min/1.73m2); Glucose 142 mg/dL (74-106); Magnesium 2.7 mg/dL (1.8-2.4); Sodium 137 mmol/L (136-145)
--- NOTE | 2021-12-10 19:00 | RT.EKG_ITS ---
APPROVED REPORT Exam: Resting ECG Reason for Exam: hyperkalemia Patient Location: I HR:103 bpm ECG Measurements Heart Rate 103 AXIS PA 186 P 102 QRSd 168 QRS 103 QT 423 T 5 QTc 554 Conclusion Sinus tachycardia...rate> 99 RBBB and LPFB...QRSd >120mS, axis(90,210)
[2021-12-10 19:04] LABS: Troponin I 750 ng/L (<or=60)
[2021-12-10 19:29] LABS: Absolute Lymphocyte Count 3.85 10^3/uL (1.2-3.4); Absolute Monocyte Count 0.61 10^3/uL (0.1-0.8); Absolute Neutrophil Count 15.21 10^3/uL (1.2-6.7); Atypical Lymphocytes % 1; Bands % 2
[2021-12-10 19:30] LABS: Anisocytosis 1+; Diff Comment Manual Differential; Hypochromasia 1+; Myelocytes % 2; Polychromasia Present
[2021-12-10 19:31] LABS: Poikilocytes 1+
[2021-12-10 19:39] LABS: HCO3 10 mmol/L (22-26); pCO2 37 mmHg (35-45); pO2 88 mmHg (80-105); sO2 91 % (95-98); tCO2 10 mmol/L (23-27)
[2021-12-10 19:41] LABS: FIO2 40 %; Site Right Radial; pH 7.03 (7.35-7.45)
--- NOTE | 2021-12-10 19:41 | DI.VRAD_ITS ---
PROCEDURE INFORMATION: Exam: CT Head Without Contrast Exam date and time: 12/10/2021 6:52 PM Age: 36 years old Clinical indication: Injury or trauma; Blunt trauma (contusions or hematomas); With loss of consciousness; Not specified; Injury date: 12/10/21; Injury details: Fall, head trauma TECHNIQUE: Imaging protocol: Computed tomography of the head without contrast. Radiation optimization: All CT scans at this facility use at least one of these dose optimization techniques: automated exposure control; mA and/or kV adjustment per patient size (includes targeted exams where dose is matched to clinical indication); or iterative reconstruction. COMPARISON: MR BRAIN WO/W 11/29/2021 11:38 AM FINDINGS: Brain: The brain parenchyma is normal appearance. No intracranial hemorrhage. No extra-axial fluid collection. No midline shift. Cerebral ventricles: No hydrocephalus. Paranasal sinuses: The paranasal sinuses are well aerated. Mastoid air cells: The mastoid air cells are well aerated. Orbital cavities: The intraorbital contents are normal appearance. Bones/joints: The skull and skull base are normal appearance. Slight angulation of the bilateral nasal bones, similar when compared to the prior study. Soft tissues: Unremarkable. IMPRESSION: No acute intracranial abnormality. PROCEDURE INFORMATION: Exam: CT Cervical Spine Without Contrast Exam date and time: 12/10/2021 6:52 PM Age: 36 years old Clinical indication: Injury or trauma; Blunt trauma (contusions or hematomas); With loss of consciousness; Not specified; Injury date: 12/10/21; Injury details: Fall, head trauma TECHNIQUE: Imaging protocol: Computed tomography of the cervical spine without contrast. Radiation optimization: All CT scans at this facility use at least one of these dose optimization techniques: automated exposure control; mA and/or kV adjustment per patient size (includes targeted exams where dose is matched to clinical indication); or iterative reconstruction. COMPARISON: MR CERVICAL SPINE WO/W 11/29/2021 11:51 AM FINDINGS: Bones/joints: Images of the lower cervical spine are motion degraded, for approximately C5 through C7. No evidence for acute fracture, given the limitations of motion degradation. No gross evidence for a high-grade neural foraminal or spinal canal stenosis. Lungs: The lung apices are not within the imaged field of view. Soft tissues: Unremarkable. IMPRESSION: The images of the lower cervical spine are mildly motion degraded from approximately C5 through C7. No evidence for acute cervical spine fracture, given limitations of motion degradation. Dictated and Authenticated by: Yvette Doe MD. Ordering:LOGAN Bowman MD
[2021-12-10] MEDS: Lactated Ringers 1,000 ML 1000 ML IV (19:46)
[2021-12-10] MEDS: Dextrose 50%-Water 25 GM/50 ML SYR IVP (19:47)
[2021-12-10] MEDS: Insulin REGULAR-Human 100 UNITS/ML UNIT IV (19:47)
[2021-12-10] MEDS: Calcium Chloride 1000 MG/10 ML SYR IVP (19:47)
--- NOTE | 2021-12-10 20:28 | NUR.NOTE ---
Addendum entered by Opal Mina 12/10/21 21:05: At 1551 Patient was being transferred to the ICU, accompanied by Jeferson Hillman CRNA, Dr. Caro, Raffaele Holcomb RT, Yuridia from RT, Shayla Owen RN, Penny Vieyra DNP and several other nurses from the Med Surg Unit. 1553 HR 57, RR 22, 02 @ 81 % 1556 HR 36 and neck collar being applied and Rt bagging patient. 1557 HR 64 1558 HR 103, RR 22, BP 107/78 1600 HR 72 1607 positive pulses, Sinus Tachycardia with HR at 151. 1609 BP 75/40, HR 127 per surveillance system monitor 1613 Postive pulses, Locus CPR machine placed on patient. 1613 HR 123, BP 118/96 1620 Positive pulses, HR 113 per surveillance system monitor 1625 BP 98/69, HR 112, C02 39 1630 OG placed 1635 BP 88/43, HR 117 per surveillance system monitor 1639 BP 60/27, HR 117 per surveillance system monitor, Patient trying to open her eyes. 1640 BP 104/61, HR 115 per surveillance system monitor 1645 Soft restraints Applied to UE's. Left Femoral Line removed by Arron Hillman CRNA. 1650 Dr Kapoor putting in a triple lumen central line (Left Chest) 1650 BP 86/66, Repeat BP 105/91 1700 Chest Xray being done, BP 99/67 1715 Arterial Line Placed in Left Radial Artery by Dr. Kapoor Original Note: Nursing Note: Medications Given per Code Blue Recorders: Roxanne Lopez RN, Penny Vieyra DPN, Yasmeen Verdin RN. 1557-Atropine 1 MG IVP 1559-Narcan 0.4 mg IVP 1600-Ketamine 50 mg IVP 1604-Epinephrine 1 mg IVP 1605-Narcan 2 mg IVP 1606-Epinephrine 1 mg IVP 1609-Norepinephrine 0.05 mcg/kg/min Drip 1610-Epinephrine 1 mg IVP 1613-Narcan 2 mg IVP 1617-Narcan IV 2 mg/hr Drip 1618-Epinephrine 1 mg IVP 1620-Sodium Bicarbonate 8.4%--50 meq IVP 1620-Norepinephrine 0.3 mcg/kg/min Drip 1625-50% Dextrose 25 grams IVP 1631-Flumazenil 0.2 mg IVP 1635-Flumazenil 0.2 mg IVP 1645-Propofol 50 mcg/kg/min Drip 1650-40 meq bolus given by Arron Hillman CRNA
[2021-12-10] MEDS: Lactated Ringers 1,000 ML 100 ML IV (23:01)
--- NOTE | 2021-12-11 00:36 | NUR.NOTE ---
Nursing Note: cardiac strips during code, 1900 and dc to [facility] pasted - would not load to [facility] see med records
--- NOTE | 2021-12-11 01:08 | NUR.NOTE ---
Nursing Note: all personal belongs brought by mariesucarlos a to icu office were brought to jeni zamora's office. safe was check for any additional belongings-none found. an inventory of all belonging was written competed by 2 staff in icu
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
== END 2021-12-10 20:55 | DRG 871 ==
LOC: ER 19:48 → MS 20:28 → ICU 12-10 15:55
PROVIDERS: Family Medicine; Internal Medicine; Admitting Provider Family Medicine; Emergency Provider Student in an Organized Health Care Education/Training Program; PCP Nurse Practitioner Family; Visit Provider Family Medicine
DX: A41.02 Sepsis due to Methicillin resistant Staphylococcus aureus (principal); I26.90 Septic pulmonary embolism without acute cor pulmonale; J18.9 Pneumonia, unspecified organism; I46.9 Cardiac arrest, cause unspecified; J96.01 Acute respiratory failure with hypoxia; J81.0 Acute pulmonary edema; E87.1 Hypo-osmolality and hyponatremia; F11.20 Opioid dependence, uncomplicated; I42.9 Cardiomyopathy, unspecified; J90 Pleural effusion, not elsewhere classified; I01.1 Acute rheumatic endocarditis; I76 Septic arterial embolism; T82.7XXA Infection and inflammatory reaction due to other cardiac and vascular devices, implants and grafts, initial encounter; N17.9 Acute kidney failure, unspecified; B49 Unspecified mycosis; I45.2 Bifascicular block; B37.0 Candidal stomatitis; Z89.511 Acquired absence of right leg below knee; D64.9 Anemia, unspecified; I34.0 Nonrheumatic mitral (valve) insufficiency; M54.50 Low back pain, unspecified; F90.1 Attention-deficit hyperactivity disorder, predominantly hyperactive type; G89.29 Other chronic pain; F17.210 Nicotine dependence, cigarettes, uncomplicated; E86.0 Dehydration; F32.A Depression, unspecified; B18.2 Chronic viral hepatitis C; G47.00 Insomnia, unspecified; F41.9 Anxiety disorder, unspecified; Z86.16 Personal history of COVID-19; F43.10 Post-traumatic stress disorder, unspecified; F14.11 Cocaine abuse, in remission; F60.9 Personality disorder, unspecified; M25.511 Pain in right shoulder; L00 Staphylococcal scalded skin syndrome; E87.5 Hyperkalemia; B95.4 Other streptococcus as the cause of diseases classified elsewhere; B95.7 Other staphylococcus as the cause of diseases classified elsewhere
CPT/HCPCS: 31500; 94002; 36556; 36410; 36415; 36591; 70553; 71045; 71250; 72158; 80048; 80053; 80076; 80307; 82550; 82805; 84145; 85027; 86850; 86900; 86901; 86920; 87040; 87077; 87493; 87635; 87637; 93005; 96361; 96365; 96367; 96375; 97110; 97161; 99285; 36600; 70450; 72072; 72100; 72125; 72156; 72157; 73030; 73590; 74176; 80202; 81003; 81015; 81025; 82565; 82607; 82728; 82746; 83540; 83550; 83605; 83735; 84484; 85014; 85018; 85025; 85610; 86140; 87070; 87081; 87086; 87186; 87205; 93010; 93306; 99223; 99232; 99233; 99291; 99292; J0131; J1644; J1885; J1941; J2060; J2250; J2310; J2704; J3475; J3490; J7060; J7613; P9016

== ENCOUNTER 2022-03-27 16:14 | Outpatient (REF) | payer MEDICAID, SELFPAY | END 2022-03-27 16:15 | disposition home or self-care (01) | LOC: LBN 16:14 | PROVIDERS: PCP Nurse Practitioner Family; Visit Provider Physician Assistant Medical | DX: L29.2 Pruritus vulvae (principal) | CPT/HCPCS: 87480; 87510; 87660 ==

== ENCOUNTER 2022-12-02 10:28 | Inpatient (IN) | payer MEDICAID, SELFPAY ==
[2022-12-02 10:33] VITALS: BP 151/88; PULSE 88; RESP 20; TEMP 36.8; O2SAT 99
--- NOTE | 2022-12-02 11:13 | ED.GENADUL_ITS ---
Discharge Plan Disposition Patient [facility] Discharge Details Clinical Impression: Acute foreign body of left foot, Cellulitis of left foot Admit Date/Time: 12/02/22 19:41 Admit Provider: Sergio Anand Attending Provider: Sergio Anand Primary Care Provider: Ivonne Hampton ED Provider: Martín Rao Discharge Data Discharge Date/Time-TO BE ENTERED AT DEPARTURE: 12/02/22 17:25 HPI General Date/Time Provider Initiated Documentation: 12/02/22 10:56 . HPI Narrative: HPI This is a 37-year-old female with a history of alcohol abuse endocarditis arri ving to the emergency department setting of left foot pain. Patient reports that 2 days ago she stepped on some glass. She went to urgent care yesterday to have the glass removed. She was placed on trimethoprim and sulfamethoxazole. She is concerned about worsening left foot swelling. She denies any foreign body insertions into her left foot. She has had subjective fevers but she denies nausea vomiting chest pain shortness of breath. She reports that she pulled the glass out of her foot 2 days ago. She has had no foul-smelling drainage from her foot. Exam General: Well-appearing in no acute distress speaking in complete sentences. Head: Normocephalic, atraumatic. Eye: Extraocular eye movements intact. No conjunctival injection. No scleral icterus. Ear, nose, mouth, throat: Grossly normal inspection. Normal voice, handling secretions normally. Neck: Trachea midline. Cardiovascular: Well-perfused distal extremities. Respiratory: Nonlabored respiration. Gastrointestinal: Nondistended abdomen. Musculoskeletal: Left foot markedly swollen and warm with diffuse erythema compared to contralateral foot. Intact PT and DP pulse. 4-5 strength in dorsi and plantarflexion of left foot. Cap refill less than 2 seconds in left toes. Patient does have a healing wound at the base of her left great toe, medial aspect. No pain out of proportion. No obvious fluctuance. Skin: Normal for age and race, grossly normal temperature and turgor. No acute rash. Neurologic: Alert and appropriate, no apparent acute deficits. Psychiatric: Mood and manner are appropriate. Grooming and personal hygiene are appropriate. MDM This is an uncomfortable appearing normothermic and not tachycardic 37-year-old female with history of IV drug use and left foot swelling concerning for retained foreign body given she stepped on glass several days ago. On the medial surface of her left foot near the base of the great toe half there is a healing abrasion. Her foot is markedly swollen. She has intact PT and DP pulses in her foot is warm so I am not concerned for critical limb ischemia. No pain out of proportion to suggest necrotizing soft tissue infection. No fluctuance to suggest abscess. Cellulitis is clearly present and patient has been receiving outpatient trimethoprim/sulfamethoxazole but has only received 1 dose. Patient is not septic appearing and though she does endorse systemic symptoms of fevers and chills she is not meeting SIRS criteria so I did not order lactate blood cultures nor treat empirically with IV antibiotics. We will ensure that she does not have a retained foreign body. If there is no obvious foreign body will allow patient to have a trial of oral outpatient antibiotics as she has only received 1 dose thus far. We will also add on cefpodoxime to cover strep in addition to MRSA coverage with trimethoprim/sulfamethoxazole. Patient denies that she could have injected any needles in her left foot. Patient has a history of endocarditis but has no obvious Janeway lesions. Patient reports that she has not been elevating her foot as she has a 2-year-old daughter at home. I counseled her on the importance of elevating her foot. 1:15 PM I spoke with Dr. Patel from podiatry who requested MRI. 1:45 PM I spoke with Dr. Bello from radiology who advised against MRI given concern for foreign body. I ordered a CT scan. 2:58 PM Base metabolic panel showing very mild hyponatremia. No PEGGY. No anion gap. CBC with no leukocytosis anemia nor thrombocytopenia. Patient was taken by podiatry to the OR. Chronic conditions affecting the care of the patient: Bacteremia endocarditis History obtained from an outside historian: N/A External record review: [facility] EMR records with [facility] record and History of cellulitis bacterial endocarditis hepatitis C Medications: abx Social determinants of health affecting disposition: N/A Management discussed with: podiatry Treatment/interventions considered: dc but given retained foreign body pt hospitalized Response to therapies provided: N/A Related Data Home Medications Medication Instructions Recorded Confirmed naloxone 4 mg/actuation nasal 4 mg intranasal Q2M PRN 05/29/20 12/02/22 spray (Narcan) methylphenidate HCl 20 mg tablet 20 mg PO TID 05/31/21 12/02/22 gabapentin 800 mg tablet 800 mg PO QID 06/02/21 12/02/22 methadone 10 mg/mL oral concentrate 125 mg PO DAILY 06/02/21 12/02/22 Acetaminophen [Tylenol] 650 mg PO Q4H PRN PRN ##0 06/05/21 12/02/22 methylphenidate HCl 10 mg tablet 10 mg PO TID 08/20/21 12/02/22 olanzapine 5 mg tablet 1 tab PO HS 08/20/21 12/02/22 duloxetine 30 mg capsule,delayed 30 mg PO DAILY 11/27/21 12/02/22 release dexmethylphenidate 30 mg 30 mg PO DAILY 12/08/21 12/02/22 capsule,extended release -48 (Focalin XR) Previous Rx's Medication Instructions Recorded Acetaminophen [Tylenol] 650 mg PO Q4H PRN PRN ##0 06/05/21 Allergies Allergy/AdvReac Type Severity Reaction Status Date / Time bupropion HCl AdvReac Intermediate Contraindic Unverified 12/02/22 12:17 [From Wellbutrin SR] ated General Stated Complaint: Cellulitis CELESTE: 3 PFSH All Active Problems (Updated 12/02/22 @ 16:53 by Cindi Patel DPM) Edema (Acute) Mitral regurgitation (Chronic) Opioid dependence (Chronic) Anemia (Chronic) Anxiety (Chronic) Prepatellar bursitis of right knee (Acute) Fever (Acute) DVT prophylaxis (Acute) Discharge planning issues (Acute) Insomnia (Acute) ADHD, hyperactive-impulsive type (Chronic 05/14/16) Anemia of chronic disease (Acute 01/17/16) Bacterial vaginosis (Acute 05/24/13) Rx with Metronidazole cream given 04/19/15. Cardiomyopathy (Chronic 01/22/16) Chronic hepatitis C without hepatic coma (Chronic 01/11/15) Depression (Acute 01/11/15) History of drug abuse (Acute 01/17/16) In IP treatment at [facility], no longer on methadone as of 01/17/16. Family court is close to resolved - will end . She is expecting 1st daughter to come home. History of kidney injury (Acute 01/17/16) Acute January, History of prior with IUGR (Acute 11/05/15) Pleural effusion, bilateral (Acute 01/22/16) Subacute endocarditis (Acute 01/22/16) MSSA endocarditis January, Viral illness (Acute) Dehydration (Acute) Smoker (Acute) (Acute) Cellulitis of hand, right (Acute) Cellulitis (Acute) Throat pain in adult (Acute) Foreign body in foot, left (Acute) Localized swelling of left lower extremity (Acute) Cellulitis of left hand (Acute) Pneumonia (Acute) Anemia (Chronic) Hyponatremia (Acute) Intractable low back pain (Acute) Bacteremia (Acute) Sepsis (Acute) Endocarditis (Acute) Anemia (Chronic) Pulmonary nodules (Acute) Cardiac arrest with successful resuscitation (Acute) Hyperkalemia (Acute) Metabolic acidosis (Acute) Closed head injury (Acute) Lactic acidosis (Acute) PEGGY (acute kidney injury) (Acute) Fungemia (Acute) Acute respiratory failure with hypoxia (Acute) RBBB (Acute) Left posterior fascicular block (LPFB) (Acute) Mild tricuspid regurgitation (Acute) Hepatitis C (Chronic) IV drug user (Acute) Cardiac asystole (Acute) Lack of intravenous access (Acute) Acute foreign body of left foot (Acute) Cellulitis of left foot (Acute) Pain in left foot (Acute) Medical History ADHD Alcohol abuse Amputation of right foot COVID-19 virus infection Depression difficulty bonding with 2nd child. child removed from her custody. was on Wellbutrin but had sz and not on meds at this time. has appt with counselor 03/2015 Effusion, right knee Herpes, vulvar History of depression HSV infection Hx of who one week after . ? HSV or H1N1 infection. Pt has been on prophylaxis with pregnancies. Hx of cocaine abuse Paresthesia of both hands Personality disorder examination or test, positive result PTSD (post-traumatic stress disorder) Surgical History Amputation 12/23/16;[facility]; RIGHT BELOW THE KNEE section (11/24/12) PCD @ 35w. IUGR. NRFH. [id number]. [facility]. 03/26/15 RCD. Pt arrived in labor and declined SUN. F. Jessica. Family History Mother No problems noted. Father No problems noted. Brother No problems noted. Grandfather No problems noted. Grandfather No problems noted. Grandmother No problems noted. Grandmother No problems noted. Son No problems noted. Son No problems noted. Daughter No problems noted. Daughter No problems noted. Social History Smoking/Tobacco Use Status: Current every day Tobacco Type: cigarettes Smoking risk assessment performed?: Yes Alcohol Intake: former Drug use: Occasionally Substance use type: former substance user, marijuana, crack/cocaine and heroin Housing: house Do you feel safe at home: Yes Do you feel safe in your relationship?: Yes Additional Social history: pt states she is on methadone History History 4 Para 4 Hx # Term Pregnancies Multiple births Hx # Pregnancies Ectopic pregnancies AB induced Hx Number of Living Children 3 AB spontaneous Past Pregnancies Del. Date GA/Weeks # Preg Succ Route Wgt Sex Labor Lgth Anesth esia Location [facility] 12/28/20 25 Delivery Date: 12/28/20 Last Updated by: Roxanna Rocha LPN [facility] Course Vital Signs Vital signs: Vital Signs Temperature 36.8 C 12/02/22 10:33 Pulse 88 12/02/22 10:33 Respiratory Rate 20 12/02/22 10:33 Blood Pressure 151/88 H 12/02/22 10:33 Pulse Oximetry 99 12/02/22 10:33 Temperature 36.8 C 12/02/22 10:33 Temperature Source Oral 12/02/22 10:33 Pulse 88 12/02/22 10:33 Respiratory Rate 20 12/02/22 10:33 Blood Pressure 151/88 H 12/02/22 10:33 Blood Pressure Position Supine 12/02/22 10:33 Pulse Oximetry 99 12/02/22 10:33 Oxygen Delivery Method Room Air 12/02/22 10:33 Oxygen Flow Rate 0 12/02/22 10:33 Pain Level 0 12/02/22 10:33
--- NOTE | 2022-12-02 11:17 | DI.RAD_ITS ---
Exam(s) XR FOOT LT COMPLETE EXAM: XR FOOT LT COMPLETE CLINICAL HISTORY: ? Foreign body glass. TECHNIQUE: 2D digital imaging was performed of the left foot. Images were obtained. AP, oblique a nd lateral views were obtained. COMPARISON: No exams were available for comparison FINDINGS: BONES: No acute fracture is present. No bony destructive lesion is seen. JOINTS: No dislocation present. SOFT TISSUE: There is a 1.2 cm long thin linear foreign body in the soft tissues lateral to the 5th t arsometatarsal joint. There is generalized diffuse soft tissue swelling of the foot noted. IMPRESSION: 1.2 cm thin for linear foreign body in the soft tissues lateral to the 5th tarsometatarsal joint with generalized soft tissue swelling of the foot. DATA REPOSITORY: RADIATION DOSE DELIVERED:
--- NOTE | 2022-12-02 13:30 | DI.CT_ITS ---
Exam(s) CT LOWER EXTREMITY LT WO EXAM: CT LOWER EXTREMITY LT WO CLINICAL HISTORY: Preoperative planning. TECHNIQUE: Imaging Protocol: Axial computed tomography images with coronal and sagittal reformatted images were created and reviewed. COMPARISON: CR XR FOOT LT COMPLETE from 12/02/2022 FINDINGS: Bones: The osseous structures and articular surfaces are intact. Bony alignment is satisfactory. N o cellulitic or osteomyelitic changes are identified. There is no evidence of joint space narrowing or cystic degeneration seen. No lytic or sclerotic lesions are identified. Soft Tissues: There is a 1.1 cm linear radiodense foreign body in the soft tissues lateral to the 5th tarsometatarsal joint. There is soft tissue swelling of the foot noted. There is a 4 mm density me dial to the talar navicular joint. IMPRESSION: 1. 1.1 cm linear foreign body in the soft tissues lateral to the 5th meta tarsal metatarsal joint. T his can be visualized on the x-ray of the left foot from the same day. 2. 4 mm density in the soft tissues medial to the talonavicular joint of indeterminate clinical signi ficance. Correlation with any puncture sites on the skin surface in this area. 3. Soft tissue swelling of the foot. RADIATION DOSE DELIVERED: 245.97mGy.cm Total DLP 245.97mGy.cm Total DLP DATA REPOSITORY: All CT scans at this facility are submitted to the National Radiology Data Registry (NRDR) Dose Index Registry (DIR) with the [employer] (A[employer]). RADIATION OPTIMIZATION: All CT scans at this facility use at least one of these dose optimization te chniques: automated exposure control; mA and/or kV adjustment per patient size (includes targeted exa ms where dose is matched to clinical indication); or iterative reconstruction.
[2022-12-02 14:41] LABS: Abs Immature Grans 0.01 10^3/uL (0.0-0.06); Absolute Basophil Count 0.02 10^3/uL (0.0-0.2); Absolute Eosinophil Count 0.13 10^3/uL (0.0-0.7); Absolute Lymphocyte Count 1.57 10^3/uL (1.2-3.4); Absolute Monocyte Count 0.51 10^3/uL (0.1-0.8); Absolute Neutrophil Count 4.17 10^3/uL (1.2-6.7); Basophils % 0.3; HCT 33.9 % (36.0-46.0); HGB 11.4 g/dL (11.2-15.7); Immature Grans % 0.2; Lymphocytes % 24.5; MCH 30.7 pg (27.0-33.0); MCHC 33.6 % (32.0-36.0); MCV 91 fL (80-95); MPV 9.4 fL (8.0-11.0); Platelet Count 195 10^3/uL (130-400); RBC 3.71 10^6/uL (3.93-5.22); RDW 13.3 % (11.7-14.6); RDW-SD 45.3 fL; WBC 6.41 10^3/uL (4.4-10.8)
[2022-12-02 14:53] LABS: Anion Gap 7.7 mmol/L (3-11); BUN 6 mg/dL (7-18); CO2 28.3 mmol/L (21.0-32.0); CREATININE 0.8 mg/dL (0.55-1.02); Calcium 9.2 mg/dL (8.5-10.1); Chloride 99 mmol/L (98-107); Estimated GFR 96.66 (mL/min/1.73m2); Glucose 90 mg/dL (74-106); Potassium 3.7 mmol/L (3.5-5.1); Sodium 135 mmol/L (136-145)
[2022-12-02] MEDS: PIPERACILLIN/TAZO 3.375 GM in Normal Saline 50 ML IVPB (14:57)
[2022-12-02 15:06] LABS: HCG Qual (Serum) Negative
[2022-12-02] MEDS: VANCOMYCIN/WATER (PEG) 1.5 GM/300 ML BAG IV (15:31)
[2022-12-02] MEDS: Ketorolac 15 MG/ML VIAL IVP (15:45)
--- NOTE | 2022-12-02 16:22 | W.PODCONSULT ---
Date of service: 12/02/22 Time of Service: 13:00 Assessment and Plan Assessment and plan (1) Foreign body in foot, left: Status: Acute (2) Localized swelling of left lower extremity: Status: Acute (3) Cellulitis of left foot: Status: Acute (4) Pain in left foot: Status: Acute Assessment and plan: Patient was seen in the ER today. Labs and imaging were reviewed. At this time there is significant edema erythema and warmth to the left foot. There is pain on palpation to the lateral aspect of the left foot along the fifth metatarsal base and cuboid joint. There is also tenderness to palpation and range of motion to the first metatarsophalangeal joint. There is also pain noted to the dorsal aspect of the left foot around the midfoot area. There is a small scab noted to the dorsal aspect of the left foot and the medial aspect of the left first metatarsophalangeal joint however no deeper lesions noted no palpable abscess noted. At this time, I recommend an OR exploratory I&D and attempting removal of the foreign body which is at the lateral aspect of the left foot. This will likely be left and packed open overnight. Patient may require further OR debridement. Patient has been n.p.o. We will proceed to the OR. History of Present Illness Narrative: 37-year-old female with a history of alcohol abuse endocarditis seen in the emergency department setting of left foot pain possible retained foreign body.? Patient reports that 2-3 days ago she stepped on some glass while running after her daughter.? She went to urgent care yesterday to have the glass removed which was removed. ? She was placed on aspirin and sulfamethoxazole. She states she has been taking the abx however the redness and swelling has been worsening.? She is concerned about worsening left foot swelling.? She denies any foreign body insertions into her left foot.? She has had subjective fevers but she denies nausea vomiting chest pain shortness of breath.? She reports that she pulled the glass out of her foot 2 days ago.? She has had no foul-smelling drainage from her foot. She states she has not used IV drugs for 6 months since completing her rehab. She also reports an amputation to the right lower extremity. She states about 6 yrs ago she jumped from the top of the truck and sustained fractures which subsequently got infected, she went into coma at that time and eventually lost her right leg. She has recovered from this completely however reports being traumatized from this. She is using a prosthetic to the right for ambulation. Review of Systems Constitutional Comments: Reports recent fevers. No chills noted. Integumentary/Breasts Comments: Edema and erythema to the right foot [facility] All Active Problems (Updated 12/02/22 @ 16:53 by Cindi Patel DPM) Pain in left foot (Acute) Edema (Acute) Mitral regurgitation (Chronic) Opioid dependence (Chronic) Anemia (Chronic) Anxiety (Chronic) Prepatellar bursitis of right knee (Acute) Fever (Acute) DVT prophylaxis (Acute) Discharge planning issues (Acute) Insomnia (Acute) ADHD, hyperactive-impulsive type (Chronic 05/14/16) Anemia of chronic disease (Acute 01/17/16) Bacterial vaginosis (Acute 05/24/13) Rx with Metronidazole cream given 04/19/15. Cardiomyopathy (Chronic 01/22/16) Chronic hepatitis C without hepatic coma (Chronic 01/11/15) Depression (Acute 01/11/15) History of drug abuse (Acute 01/17/16) In IP treatment at [facility], no longer on methadone as of 01/17/16. Family court is close to resolved - will end . She is expecting 1st daughter to come home. 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, Viral illness (Acute) Dehydration (Acute) Smoker (Acute) (Acute) Cellulitis of hand, right (Acute) Cellulitis (Acute) Throat pain in adult (Acute) Foreign body in foot, left (Acute) Localized swelling of left lower extremity (Acute) Cellulitis of left hand (Acute) Pneumonia (Acute) Anemia (Chronic) Hyponatremia (Acute) Intractable low back pain (Acute) Bacteremia (Acute) Sepsis (Acute) Endocarditis (Acute) Anemia (Chronic) Pulmonary nodules (Acute) Cardiac arrest with successful resuscitation (Acute) Hyperkalemia (Acute) Metabolic acidosis (Acute) Closed head injury (Acute) Lactic acidosis (Acute) PEGGY (acute kidney injury) (Acute) Fungemia (Acute) Acute respiratory failure with hypoxia (Acute) RBBB (Acute) Left posterior fascicular block (LPFB) (Acute) Mild tricuspid regurgitation (Acute) Hepatitis C (Chronic) IV drug user (Acute) Cardiac asystole (Acute) Lack of intravenous access (Acute) Acute foreign body of left foot (Acute) Cellulitis of left foot (Acute) Medical History ADHD Alcohol abuse Amputation of right foot COVID-19 virus infection Depression difficulty bonding with 2nd child. child removed from her custody. was on Wellbutrin but had sz and not on meds at this time. has appt with counselor 03/2015 Effusion, right knee Herpes, vulvar History of depression HSV infection Hx of infant who one week after . ? HSV or H1N1 infection. Pt has been on prophylaxis with pregnancies. Hx of cocaine abuse Paresthesia of both hands Personality disorder examination or test, positive result PTSD (post-traumatic stress disorder) Surgical History Amputation 12/23/16;[facility]; RIGHT BELOW THE KNEE section (11/24/12) PCD @ 35w. IUGR. [facility]. [id number]. [facility] [place]. 03/26/[place] RCD. Pt arrived in labor and declined SUN. Chad Lopez. Family History Mother No problems noted. Father No problems noted. Brother No problems noted. Grandfather No problems noted. Grandfather No problems noted. Grandmother No problems noted. Grandmother No problems noted. Son No problems noted. Son No problems noted. Daughter No problems noted. Daughter No problems noted. Social History Smoking/Tobacco Use Status: Current every day Tobacco Type: cigarettes Smoking risk assessment performed?: Yes Alcohol Intake: former Drug use: Occasionally Substance use type: former substance user, marijuana, crack/cocaine and heroin Do you feel safe at home: Yes Do you feel safe in your relationship?: Yes Additional Social history: pt states she is on methadone History History 4 Para 4 Hx # Term Pregnancies Multiple births Hx # Pregnancies Ectopic pregnancies AB induced Hx Number of Living Children 3 AB spontaneous Past Pregnancies Del. Date GA/Weeks # Preg Succ Route Wgt Sex Labor Lgth Anesthesia Location Prov Complic 12/28/20 25 Delivery Date: 12/28/20 Last Updated by: Roxanna Rocha LPN Patient transferred OB care to [facility] Exam HENME Head: normal to inspection Resp Effort & Inspection: normal respiratory effort and able to speak in complete sentences Auscultation: clear to auscultation bilaterally Cardio Rate: regular rate Rhythm: regular rhythm Extrem Other: Left lower extremity physical exam: Derm: Small eschar noted to the dorsum of the right foot, small eschar noted to the medial aspect of the right first metatarsophalangeal joint no open lesion is noted to the lateral aspect of the left foot. There is significant edema erythema and warmth noted to the left foot however no palpable abscess noted at this time no palpable foreign body at this time. No other open lesions or ulcerations noted. Vascular: DP PT pulses are faintly palpable secondary to edema skin is warm to touch CFT is brisk to all the toes. MSK: Muscle strength noted to be intact there is tenderness to palpation to the lateral aspect of the left and the fifth metatarsal cuboid joint, there is pain noted to the right first metatarsophalangeal joint as well as the dorsum of the left midfoot. Neuro: Light touch sensation noted to be intact without any hyperesthesias noted. Results Last Vital Signs Temp 98.2 F 12/02/22 10:33 Pulse 88 12/02/22 10:33 Resp 20 12/02/22 10:33 BP 151/88 H 12/02/22 10:33 Pulse Ox 99 12/02/22 10:33 Labs 12/02/22 14:30 12/02/22 14:30 Labs: Laboratory Results - last 24 hr 12/02/22 12/02/22 12/02/22 14:30 14:30 14:30 WBC 6.41 RBC 3.71 L Hgb 11.4 Hct 33.9 L MCV 91 MCH 30.7 MCHC 33.6 RDW 13.3 Plt Count 195 MPV 9.4 Immature Gran % 0.2 Neutrophils % 65.0 Lymphocytes % 24.5 Monocytes % 8.0 Eosinophils % 2.0 Basophils % 0.3 Nucleated RBC % 0.0 Absolute Neutrophils 4.17 Absolute Lymphocytes 1.57 Absolute Monocytes 0.51 Absolute Eosinophils 0.13 Absolute Basophils 0.02 Sodium 135 L Potassium 3.7 Chloride 99 Carbon Dioxide 28.3 Anion Gap 7.7 BUN 6 L Creatinine 0.8 Est GFR (CKD-EPI 2020) 96.66 Glucose 90 Calcium 9.2 Serum HCG, Qual Negative Imaging Imaging Studies: Patient Name: Denisse Mcdermott Unit #: [id number] Loc: ER ? Ordering Provider:? Martín Rao M.D. Status: REG ER ? Primary Care Provider: Ivonne Hampton Date of Exam: 12/02/22 Sex: F ? : 1985 Age: 37 ? Exam(s) a CT:CT lower extremity LT wo Exam(s) CT LOWER EXTREMITY LT WO EXAM: ? CT LOWER EXTREMITY LT WO CLINICAL HISTORY: ? Preoperative planning. ? TECHNIQUE:? Imaging Protocol: Axial computed tomography images with coronal and sagittal reformatted images were created and reviewed. COMPARISON:? CR XR FOOT LT COMPLETE from 12/02/2022 FINDINGS: Bones:? The osseous structures and articular surfaces are intact.? Bony alignment is satisfactory.? No cellulitic or osteomyelitic changes are identified.? There is no evidence of joint space narrowing or cystic degeneration seen. No lytic or sclerotic lesions are identified. Soft Tissues: There is a 1.1 cm linear radiodense foreign body in the soft tissues lateral to the 5th tarsometatarsal joint.? There is soft tissue swelling of the foot noted.? There is a 4 mm density medial to the talar navicular joint.? IMPRESSION: 1. 1.1 cm linear foreign body in the soft tissues lateral to the 5th meta tarsal metatarsal joint.? This can be visualized on the x-ray of the left foot from the same day. 2. 4 mm density in the soft tissues medial to the talonavicular joint of indeterminate clinical significance.? Correlation with any puncture sites on the skin surface in this area.? 3. Soft tissue swelling of the foot.
--- NOTE | 2022-12-02 16:45 | DI.RAD_ITS ---
Exam(s) XR FLOURO OR C-ARM <1 HR EXAM: XR FLOURO OR C-ARM <1 HR CLINICAL HISTORY: FOREIGN BODY/ SWOLLEN LEFT FOOT. TECHNIQUE: 2D digital imaging was performed. COMPARISON: No exams were available for comparison FINDINGS: Fluoroscopy was provided during procedure on left foot. See procedure report for details. Total fluoroscopy time 37 seconds. Radiation exposure index/cumulative dose: Ka,r= 0.6674 mGy IMPRESSION: DATA REPOSITORY: RADIATION DOSE DELIVERED:
--- NOTE | 2022-12-02 16:47 | ANES.PREOP_ITS ---
General Info Date of Service Date Performed: 12/02/22 Height: 5 ft 8 in Weight: 72.575 kg Body Mass Index (BMI): 24.3 Surgical Procedure: Operation Date: 12/02/22 16:25 Proposed Procedure Side Surgeon p I&D of Foot, Foreign Body Removal Left Cindi ShermanPEG mendez Meds Allergies and Home Medications Allergies Allergy/AdvReac Type Severity Reaction Status Date / Time bupropion HCl AdvReac Intermediate Contraindic Unverified 12/02/22 12:17 [From Wellbutrin SR] ated Home Medication Medication Instructions Recorded naloxone 4 mg/actuation nasal 4 mg intranasal Q2M PRN 05/29/20 spray (Narcan) methylphenidate HCl 20 mg tablet 20 mg PO TID 05/31/21 gabapentin 800 mg tablet 800 mg PO QID 06/02/21 methadone 10 mg/mL oral concentrate 125 mg PO DAILY 06/02/21 Acetaminophen [Tylenol] 650 mg PO Q4H PRN PRN ##0 06/05/21 methylphenidate HCl 10 mg tablet 10 mg PO TID 08/20/21 olanzapine 5 mg tablet 1 tab PO HS 08/20/21 duloxetine 30 mg capsule,delayed 30 mg PO DAILY 11/27/21 release dexmethylphenidate 30 mg 30 mg PO DAILY 12/08/21 capsule,extended release [id number] (Focalin XR) Current Visit Medications: Current Medications Generic Name Dose Route Start Last Admin Trade Name Freq PRN Reason Stop Dose Admin Sodium Chloride 500 mls @ 0 mls/hr 12/02/22 14:08 Saline 500ml Bag IV PRN PRN As Directed Cefazolin Sodium/Dextrose 2 gm in 50 mls @ 100 mls/hr 12/03/22 06:00 Ancef Duplex IVPB PREOP LUCY IV Miscellaneous Supplies 1 each 12/03/22 06:00 Iv Access IV DIRECTED LUCY Povidone Iodine 0 ml 12/02/22 15:00 Povidone-Iodine Soln. 118 Ml Btl TP DIRECTED LUCY Sodium Chloride 0 ml 12/02/22 14:08 Normal Saline Flush 10 Ml Syr IVP PRN PRN PFSH Active Problems Active Problems: Problem Status Onset Code Acute foreign body of left foot S90.852A Lack of intravenous access Z78.9 Cardiac asystole I46.9 IV drug user F19.90 Hepatitis C B19.20 Mild tricuspid regurgitation I07.1 Left posterior fascicular block (LPFB) I44.5 RBBB I45.10 Acute respiratory failure with hypoxia J96.01 Fungemia B49 PEGGY (acute kidney injury) N17.9 Lactic acidosis E87.20 Closed head injury S09.90XA Metabolic acidosis E87.20 Hyperkalemia E87.5 Cardiac arrest with successful resuscitation I46.9 Pulmonary nodules R91.8 Anemia D64.9 Scalded skin syndrome L00 Endocarditis I38 Sepsis A41.9 Bacteremia R78.81 Intractable low back pain M54.59 Pneumonia J18.9 Anemia D64.9 Hyponatremia E87.1 Cellulitis of left hand L03.114 Foreign body in foot, left S90.852A Localized swelling of left lower extremity R22.42 Cellulitis of hand, right L03.113 Cellulitis L03.90 Throat pain in adult R07.0 Z34.90 History of oligohydramnios in prior , currently in third trimester 01/11/15 O09.293 Smoker F17.200 Viral illness B34.9 Dehydration E86.0 ADHD, hyperactive-impulsive type 05/14/16 F90.1 Subacute endocarditis 01/22/16 I33.9 Cardiomyopathy 01/22/16 I42.9 Pleural effusion, bilateral 01/22/16 J90 History of prior with IUGR 01/11/15 Z87.59 History of kidney injury 01/17/16 Z87.828 History of drug abuse 01/17/16 Z87.898 Depression 01/11/15 F32.9 Chronic hepatitis C without hepatic coma 01/11/15 B18.2 Bacterial vaginosis 05/24/13 N76.0, B96.89 Anemia of chronic disease 01/17/16 D63.8 Insomnia G47.00 Discharge planning issues Z02.9 DVT prophylaxis Fever R50.9 Prepatellar bursitis of right knee M70.41 Edema R60.9 Mitral regurgitation I34.0 Opioid dependence F11.20 Anemia D64.9 Anxiety F41.9 Medical History Medical History ADHD Alcohol abuse Amputation of right foot COVID-19 virus infection Depression difficulty bonding with 2nd child. child removed from her custody. was on Wellbutrin but had sz and not on meds at this time. has appt with counselor 03/2015 Effusion, right knee Herpes, vulvar History of depression HSV infection Hx of infant who one week after . ? HSV or H1N1 infection. Pt has been on prophylaxis with pregnancies. Hx of cocaine abuse Paresthesia of both hands Personality disorder examination or test, positive result PTSD (post-traumatic stress disorder) Surgical History Surgical History Amputation 12/23/16;[facility]; RIGHT BELOW THE KNEE section (11/24/12) PCD @ 35w. [facility]. [facility]. [id number]. [facility] [place]. 03/26/15 RCD. Pt arrived in labor and declined SUN. Chad Lopez. Tobacco Smoking/Tobacco Use Status: Current every day Tobacco Type: cigarettes Smoking cigarettes per day: 10 Alcohol Alcohol Intake: former Substance Use Substance use: Occasionally Substance use type: former substance user, marijuana, crack/cocaine and heroin Prental History History 4 Para 4 Hx # Term Pregnancies Multiple births Hx # Pregnancies Ectopic pregnancies AB induced Hx Number of Living Children 3 AB spontaneous Past Pregnancies Del. Date GA/Weeks # Preg Succ Route Wgt Sex Labor Lgth Anesth esia Location [facility] [place] 12/28/20 25 Delivery Date: 12/28/20 Last Updated by: Roxanna Rocha LPN Patient transferred OB care to [facility] Vital Signs and Lab Results Vital Signs Most Recent Vital Signs in EMR: Most Recent Vital Signs Temp Pulse Resp BP Pulse Ox 36.8 C 88 20 151/88 H 99 12/02/22 10:33 12/02/22 10:33 12/02/22 10:33 12/02/22 10:33 12/02/22 10:33 Lab Results 12/02/22 14:30 12/02/22 14:30 Blood Type / Crossmatch: No Data to Display Complete Blood Count: White Blood Count 6.41 10^3/uL (4.4-10.8) 12/02/22 14:30 Red Blood Count 3.71 10^6/uL (3.93-5.22) L 12/02/22 14:30 Hemoglobin 11.4 g/dL (11.2-15.7) 12/02/22 14:30 Hematocrit 33.9 % (36.0-46.0) L 12/02/22 14:30 Platelet Count 195 10^3/uL (130-400) 12/02/22 14:30 Complete Metabolic Panel: Sodium 135 mmol/L (136-145) L 12/02/22 14:30 Potassium 3.7 mmol/L (3.5-5.1) 12/02/22 14:30 Chloride 99 mmol/L (98-107) 12/02/22 14:30 Carbon Dioxide 28.3 mmol/L (21.0-32.0) 12/02/22 14:30 BUN 6 mg/dL (7-18) L 12/02/22 14:30 Creatinine 0.8 mg/dL (0.55-1.02) 12/02/22 14:30 Est GFR (CKD-EPI 2020) 96.66 (mL/min/1.73m2) 12/02/22 14:30 Calcium 9.2 mg/dL (8.5-10.1) 12/02/22 14:30 Glucose 90 mg/dL (74-106) 12/02/22 14:30 Liver Function Panel: No Data to Display Coagulation Panel: No Data to Display Cardiac Panel: No Data to Display Arterial Blood Gas: No Data to Display Venous Blood Gas: No Data to Display Pancreas Panel: No Data to Display Thyroid Panel: No Data to Display Infectious Disease: No Data to Display Blood Cultures: No Data to Display Toxicology Panel: No Data to Display Panel: Serum HCG, Qualitative Negative 12/02/22 14:30 Anesthesia Assessment and Plan Anesthesia History Personal History: No History of Anesthesia Complications Family History: No Family History of Anesthesia Complications Exercise Tolerance Exercise Tolerance: Metabolic Equivalents>4 Pertinent Negatives Pertinent Negatives: No Symptoms of GERD Cardiac & Pulmonary Exam Cardiac Exam: Normal S1/S2 Heart Sounds Pulmonary Exam: Clear Bilateral Breath Sounds Implantable Cardiac Device Does patient have a Pacemaker or an ICD?: No Airway Exam Known Difficult Airway: No Mallampati Class: 1 Mouth Opening: Normal (> 3cm) Thyromental Distance: Greater than 3 cm Neck Range of Motion: Full ROM Neck Circumference: Normal Teeth Condition: Generalized Poor Dentition ASA Classification ASA Score: ASA 3 Emergency Case?: No NPO Status NPO Status: NPO Clears >2 hours, Solids >8 hours Status Status: Not Per Patient Anesthesia Plan Resuscitation Status: Full Code Anesthesia Technique: General Anesthesia Airway Planned: LMA Monitors Used: Standard Monitors Preoperative Comments:: Pt with extensive substance abuse history on methadone. Denies current use of no-prescription drugs or ETOH. Prior cardiac involvement with possible valvular vegetation from IV drug use.
[2022-12-02 16:51] VITALS: BMI 24.3
[2022-12-02 17:11] VITALS: BP 118/62; PULSE 74; RESP 14; TEMP 36.9; O2SAT 99
[2022-12-02] MEDS: Lactated Ringers 1,000 ML 125 ML IV ×2 (17:32→21:42)
[2022-12-02] MEDS: Lidocaine 1% Pres-Free 30 ML VIAL (17:48)
[2022-12-02] MEDS: Cellulose,Oxidized 2X3 PKT 1 EACH MC (19:17)
[2022-12-02] MEDS: Bupivacaine 0.25% Pres-Free 30 ML VIAL (19:28)
--- NOTE | 2022-12-02 19:58 | W.PM.OP ---
Date of service: 12/02/22 Time of Service: 17:30 Operative Note Operative Note DATE OF PROCEDURE: 12/02/22 PRE-OP DIAGNOSIS: Foreign body left foot Abscess, left foot Cellulitis, left foot POST-OP DIAGNOSIS: same PROCEDURE: Incision and drainage, left foot Foreign body removal, left foot SURGEON: Cindi Patel ANESTHESIA TYPE: Local By Surgeon (20 mL 1% lidocaine plain preop; 10 mL 0.25% Marcaine plain postop) and MAC Refer to Anesthesia Record ESTIMATED BLOOD LOSS: 70 PATHOLOGY: none sent (Wound cultures, foreign body, left foot) COMPLICATIONS: None Patient was transported to: observation Patient's condition: stable Implants: None Indications: This is a 37-year-old female patient with history significant for IV drug abuse. The patient suffered a puncture wound with glass in her foot about 2 to 3 days ago. Patient went to urgent care where the glass was removed. Over time patient noticed swelling and redness from the wound. Upon referral from her family she presented to the ER today. In the ER she was noted to have severe swelling redness and warmth to her foot. I was consulted to see the patient. Patient was noted to have a scabbed puncture wound to the dorsal aspect of the left foot a scab to the medial aspect of the left first metatarsophalangeal joint and edema and tenderness to palpation to the lateral aspect of the left foot just dorsal lateral to the fifth metatarsal base and cuboid joint. Findings: 10cc yellow marina purulence from the left 1st interspace incision tracking laterally to the 3rd metatarsal Serosanguinous drainage from the lateral incisions x 2 Serous drainage from the medial incision at the left 1st interspace Metal foreign body consistent with broken needle, lateral aspect of the 5th metatarsal base Procedure Description: Patient was identified in pre op. consent form was signed and reviewed. Patient was then brought to the OR with the anesthesia team and placed on the OR table in supine postion. Following induction of anesthesia, an ankle block was performed following prep with alcohol. An ankle TQ was then applied to the left foot. The left foot was then scrubbed prepped and draped in the usual aseptic manner. A timeout was then carried out. Using intraoperative fluoroscopy the foreign body was identified and marked on the skin to the lateral aspect of the left fifth metatarsal base. Using a skin marker an incision was planned at this site measuring approximately 2 cm using a sterile #15 blade incision was made in the skin the incision was then deepened through the skin and subcutaneous tissue no foreign body was visualized and then a decision was made to lengthen the incision to approximately 4 to 5 cm. The tourniquet was then inflated following exsanguination of the left foot as there was bleeding noted which was obscuring the surgical field. Foreign body was then not identified again intraoperatively fluoroscopy was then used to further identify and isolate the foreign body which was then identified and removed and passed from the surgical field to be sent to pathology. Attention was directed just superior to this incision site just below the ankle and overlying an area of bogginess a 2 to 3 cm linear longitudinal incision was made using a sterile #15 blade the incision was then deepened clear serous drainage was expressed. No evidence for purulence and no evidence for necrosis was noted at this site. Attention was then directed to the dorsal aspect of the left foot around the left first interspace where a scab and slight induration was noted. Using a sterile #15 blade, a 2 to 3 cm linear longitudinal incision was made directly over the scab the incision was deepened through the skin and subcutaneous tissue and immediately yellow-bonilla purulence was expressed the area was explored and was noted to track laterally to the third metatarsal. The purulence was then expressed slight necrotic tissue was noted to the wound bed which was removed using a rongeur. Attention was then directed to the medial aspect of the left first metatarsophalangeal joint where a scab was noted a 3 cm linear longitudinal incision was then planned with a skin marker incision was then made using a sterile #15 blade incision was then deepened no purulence was expressed here at this location clear serous fluid was expressed. Incision was deepened to explore the joint the joint appeared clean and without any purulence. The incision sites were then further explored 1 more time no further purulence was noted. The incision sites were then flushed with 3 L normal saline via cystoscopy tubing. All bleeders were ligated and cauterized as indicated. 2-0 Vicryl was used to reapproximate the first metatarsophalangeal joint medially. The tourniquet was then deflated. The skin was then closed using 4-0 nylon for all incisions. Dressings were then applied with Xeroform gauze, 4 x 4, ABD, Kerlix, Elfego wrap. Patient tolerated the procedure and anesthesia well with vital signs stable and vascular status intact to the left foot. Patient was transferred to inpatient observation for overnight monitoring. Patient is to keep the left lower extremity elevated at all times. She is to keep the dressings clean dry and intact. She is to apply ice to the ankle and behind the knee for 10 minutes on and 20 minutes off around the clock. Nursing may reinforce dressings as needed. I will evaluate the patient in house tomorrow.
[2022-12-02 20:00] VITALS: BP 114/70; BP 128/73; PULSE 63; PULSE 64; RESP 18; TEMP 35.4; TEMP 36.8; O2SAT 100
[2022-12-02 21:09] VITALS: BP 114/70; PULSE 63; RESP 18; TEMP 36.8; O2SAT 100
[2022-12-02] MEDS: Methylphenidate 10 MG TAB PO (21:42)
[2022-12-02] MEDS: Gabapentin 800 MG TAB PO (21:42)
[2022-12-02] MEDS: OLANZapine 5 MG TAB PO (21:43)
[2022-12-02 21:59] VITALS: BP 121/75; PULSE 66; RESP 16; TEMP 36.4; O2SAT 100
--- NOTE | 2022-12-03 | DI.MRI_ITS ---
Exam(s) MR LOWER EXTREMITY LT WO/W EXAM: MR LOWER EXTREMITY LT WO/W CLINICAL HISTORY: Abscess left foot. TECHNIQUE: Multiplanar multisequence MRI was performed. CONTRAST MATERIAL: IV Contrast: 15 mL of Dotarem contrast administered. COMPARISON: CR,XA XR FLOURO OR C-ARM <1 HR from 12/02/2022 CR XR FOOT LT COMPLETE from 12/02/[address] LOWER EXTREMITY LT WO from 12/02/2022 FINDINGS: BONES/JOINTS: No fracture or contusion pattern. No bone lesions identified. The talar dome is smooth. The ankle mortise is maintained. No joint effusion is present. No findings to suggest osteomyelitis. LIGAMENTS: The Lisfranc ligament is unremarkable. No evidence of a tear. MUSCULOTENDINOUS STRUCTURES: Achilles tendon: Unremarkable. Plantar fascia: Unremarkable. Anterior Extensor tendons: Unremarkable. Posterior Tibialis: There is mild increased signal seen in the distal aspect of the posterior tibiali s tendon. Flexor Digitorum longus: Unremarkable. Flexor Hallucis longus: Unremarkable. Peroneus longus: Unremarkable. Peroneus brevis:There is a short segment split thickness tear of the peroneus brevis tendon. SOFT TISSUES: There is diffuse subcutaneous edema particularly on the dorsum of the foot and the late ral aspect of the ankle. There are no focal/loculated fluid collections to suggest abscesses. There does appear to be a skin defect on the medial aspect of the dorsum of the foot. IMPRESSION: 1. No focal fluid collection to suggest an abscess. 2. Dense edema seen in the soft tissues on the dorsum of the foot with what appears to be a skin woun d along the medial aspect. 3. Tendinopathy or partial tear of the posterior tibialis tendon distally. 4. Question of a split-thickness tear of the peroneus brevis tendon. DATA REPOSITORY:
[2022-12-03] MEDS: PIPERACILLIN/TAZO 3.375 GM in Normal Saline 50 ML IVPB ×4 (00:30→17:50)
[2022-12-03 00:32] VITALS: BP 114/77; PULSE 61; RESP 16; TEMP 36.9; O2SAT 98
[2022-12-03] MEDS: VANCOMYCIN 750 MG in Normal Saline 250 ML 166.667 MG IVPB (01:17)
[2022-12-03] MEDS: Ketorolac 10 MG TAB 30 MG PO (02:45)
[2022-12-03 07:14] LABS: HCT 32.8 % (36.0-46.0); MCH 31.2 pg (27.0-33.0); MCHC 33.5 % (32.0-36.0); MCV 93 fL (80-95); MPV 9.7 fL (8.0-11.0); Platelet Count 173 10^3/uL (130-400); RBC 3.53 10^6/uL (3.93-5.22); RDW 13.3 % (11.7-14.6); RDW-SD 46.1 fL; WBC 4.58 10^3/uL (4.4-10.8)
[2022-12-03] MEDS: DULoxetine 30 MG CAP PO (07:52)
[2022-12-03] MEDS: Methylphenidate 10 MG TAB PO (07:53)
[2022-12-03 08:01] VITALS: BP 106/69; PULSE 64; RESP 18; TEMP 36.6; O2SAT 100
[2022-12-03] MEDS: Methadone Liquid 10 MG/ML 105 MG PO (08:04)
--- NOTE | 2022-12-03 08:19 | PDOC.CMIN ---
Date of service: 12/03/22 Time of Service: 08:19 Care Management Initial Assmt Initial Assessment REASON FOR HOSPITALIZATION:: foreign body in foot PREVIOUS FUNCTIONAL STATUS/SOCIAL/FAMILY SUPPORTS:: Denisse lives with her mother and 2 children in [facility]. She is disabled but independent with ADLs and self care. Denisse is attached to a [employer] maintenance program and takes suboxone daily. She has a wheelchair, crutches and tub/shower seat. CURRENT FUNCTIONAL STATUS:: Denisse was sitting up in bed when CM met with her in the morning. She expressed concern because her Ritalin dosing was incorrect. The issue was resolved when her Final [employer] rounded around noon. Denisse had an MRI this afternoon and is scheduled to have surgery again tomorrow. Dr. Lopez contacted CM to see if Denisse would be able to go to a SNF for a period of time for continued wound care and antibiotics. CM discussed this with Denisse. At first she agreed then later informed CM that she decided she would prefer to be at home with her children. As Denisse is on a Suboxone maintenance program, it is unlikely that she would receive a bed offer, as most SNFs cannot accommodate that need. ADVANCE DIRECTIVES:: none on file Has patient been provided with info about the portal/API?: Yes Did the patient sign up for the portal?: No CODE STATUS:: Full Code INSURANCE COVERAGE / FINANCIAL ISSUES:: Medicaid CURRENT HOME/COMMUNITY SERVICES/EQUIPMENT:: prosthesis, wheelchair, crutches, tub/shower chair, [employer] maintenance program. PRIMARY CARE PHYSICIAN:: Ivonne Hampton POTENTIAL DISCHARGE NEEDS:: follow up with PCP, Podiatry and plan of care PATIENT/FAMILY EDUCATION NEEDS:: Review of discharge instructions. limitations, activity, follow up plan, discuss Ask Me Three TRANSPORTATION:: via private vehicle with friend/family PLAN:: Denisse will likely be discharged home with new services home health services for dressing changes when medically cleared. She will follow up with her community providers and plan of care and transport with a friend or family. CM will follow and continue to support discharge planning needs. PFSH All Active Problems (Updated 12/03/22 @ 16:22 by Cindi Patel DPM) Edema (Acute) Mitral regurgitation (Chronic) Opioid dependence (Chronic) Anemia (Chronic) Anxiety (Chronic) Prepatellar bursitis of right knee (Acute) Fever (Acute) DVT prophylaxis (Acute) Discharge planning issues (Acute) Insomnia (Acute) ADHD, hyperactive-impulsive type (Chronic 05/14/16) Anemia of chronic disease (Acute 01/17/16) Bacterial vaginosis (Acute 05/24/13) Rx with Metronidazole cream given 04/19/15. Cardiomyopathy (Chronic 01/22/16) Chronic hepatitis C without hepatic coma (Chronic 01/11/15) Depression (Acute 01/11/15) History of drug abuse (Acute 01/17/16) In IP treatment at [facility], no longer on methadone as of 01/17/16. Family court is close to resolved - will end . She is expecting 1st daughter to come home. 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, Viral illness (Acute) Dehydration (Acute) Smoker (Acute) (Acute) Cellulitis of hand, right (Acute) Cellulitis (Acute) Throat pain in adult (Acute) Foreign body in foot, left (Acute) Localized swelling of left lower extremity (Acute) Cellulitis of left hand (Acute) Pneumonia (Acute) Anemia (Chronic) Hyponatremia (Acute) Intractable low back pain (Acute) Bacteremia (Acute) Sepsis (Acute) Endocarditis (Acute) Anemia (Chronic) Pulmonary nodules (Acute) Cardiac arrest with successful resuscitation (Acute) Hyperkalemia (Acute) Metabolic acidosis (Acute) Closed head injury (Acute) Lactic acidosis (Acute) PEGGY (acute kidney injury) (Acute) Fungemia (Acute) Acute respiratory failure with hypoxia (Acute) RBBB (Acute) Left posterior fascicular block (LPFB) (Acute) Mild tricuspid regurgitation (Acute) Hepatitis C (Chronic) IV drug user (Acute) Cardiac asystole (Acute) Lack of intravenous access (Acute) Acute foreign body of left foot (Acute) Cellulitis of left foot (Acute) Pain in left foot (Acute) Abscess of left foot excluding toes (Acute) Medical History ADHD Alcohol abuse Amputation of right foot COVID-19 virus infection Depression difficulty bonding with 2nd child. child removed from her custody. was on Wellbutrin but had sz and not on meds at this time. has appt with counselor 03/2015 Effusion, right knee Herpes, vulvar History of depression HSV infection Hx of who one week after . ? HSV or H1N1 infection. Pt has been on prophylaxis with pregnancies. Hx of cocaine abuse Paresthesia of both hands Personality disorder examination or test, positive result PTSD (post-traumatic stress disorder) Surgical History Amputation 12/23/16;[facility]; RIGHT BELOW THE KNEE section (11/24/12) PCD @ 35w. IUGR. [facility]. [id number]. [place]. 03/26/15 RCD. Pt arrived in labor and declined SUN. Chad Lopez. Family History Mother No problems noted. Father No problems noted. Brother No problems noted. Grandfather No problems noted. Grandfather No problems noted. Grandmother No problems noted. Grandmother No problems noted. Son No problems noted. Son No problems noted. Daughter No problems noted. Daughter No problems noted. Social History Smoking/Tobacco Use Status: Current every day Tobacco Type: cigarettes Smoking risk assessment performed?: Yes Alcohol Intake: former Drug use: Occasionally Substance use type: former substance user, marijuana, crack/cocaine and heroin Housing: house Do you feel safe at home: Yes Do you feel safe in your relationship?: Yes Additional Social history: pt states she is on methadone History History 4 Para 4 Hx # Term Pregnancies Multiple births Hx # Pregnancies Ectopic pregnancies AB induced Hx Number of Living Children 3 AB spontaneous Past Pregnancies Del. Date GA/Weeks # Preg Succ Route Wgt Sex Labor Lgth Anesthesia Location Prov Complic 12/28/20 25 Delivery Date: 12/28/20 Last Updated by: Roxanna Rocha LPN Patient transferred OB care to [facility]
[2022-12-03] MEDS: VANCOMYCIN/WATER (PEG) 750 MG/150 ML BAG 100 MG IV (10:06)
[2022-12-03 10:46] LABS: Absolute Basophil Count 0.02 10^3/uL (0.0-0.2); Absolute Eosinophil Count 0.19 10^3/uL (0.0-0.7); Absolute Lymphocyte Count 1.03 10^3/uL (1.2-3.4); Absolute Monocyte Count 0.45 10^3/uL (0.1-0.8); Absolute Neutrophil Count 2.78 10^3/uL (1.2-6.7); Basophils % 0.4; Eosinophils % 4.3; HCT 33.4 % (36.0-46.0); MCH 30.6 pg (27.0-33.0); MCHC 32.9 % (32.0-36.0); MCV 93 fL (80-95); MPV 9.8 fL (8.0-11.0); Monocytes % 10.1; Neutrophils % 62.2; Platelet Count 177 10^3/uL (130-400); RBC 3.59 10^6/uL (3.93-5.22); RDW 13.4 % (11.7-14.6); RDW-SD 45.7 fL; WBC 4.47 10^3/uL (4.4-10.8)
[2022-12-03] MEDS: Gabapentin 800 MG TAB PO ×3 (11:53→20:43)
[2022-12-03] MEDS: Normal Saline Flush 10 ML SYR IVP (15:16)
[2022-12-03] MEDS: Gadoterate meglumine 20 ML SYRINGE 15 ML IVP (15:17)
--- NOTE | 2022-12-03 15:51 | DI.VRAD_ITS ---
PROCEDURE INFORMATION: Exam: MR Left Lower Extremity Other Than Joint Without and With Contrast; Foot Exam date and time: 12/03/2022 3:05 PM Age: 37 years old Clinical indication: Edema; No, it is generalized; Prior surgery; Surgery date: Post-operative (0-2 days); Surgery type: Left foot surgery on 12/02/22 to remove f/b. Foot pain prior to surgery; Patient HX: Patient sts left foot feels hot severe left foot pain? Abscesses TECHNIQUE: Imaging protocol: Magnetic resonance imaging of the left lower extremity without and with contrast. Exam focused on the foot. Contrast material: DOTAREM; Contrast volume: 15 ml; Contrast route: INTRAVENOUS (IV); COMPARISON: CT LOWER EXTREMITY LT WO 12/02/2022 1:56 PM FINDINGS: Bones/joints: Thickening and heterogeneity the distal posterior tibialis tendon as it courses under navicular bone, suspicious for partial tearing tendinopathy. LIGAMENTS: Lisfranc ligament: Unremarkable. No evidence of tear. TENDONS: Flexor tendons of foot: Unremarkable. No evidence of tear. Tibialis posterior tendon: Unremarkable as visualized. Peroneal tendons: Unremarkable as visualized. Extensor tendons of foot: Unremarkable. No evidence of tear. Tibialis anterior tendon: Unremarkable as visualized. Tarsal canal (Sinus tarsi): Unremarkable. Tarsal tunnel: Unremarkable. Soft tissues: Diffuse subcutaneous edema, especially on top the foot on the lateral aspect ankle. Areas of non loculated fluid in the subcutaneous fat top foot. Skin wound top foot near the base of 1st and 2nd metatarsals extending into the dense edema. No loculated fluid collection is identified. Plantar fascia: Unremarkable as visualized. IMPRESSION: 1. Skin wound top of foot near the base of the 1st and 2nd MTP joints. 2. Very dense subcutaneous edema the foot, especially on the top of the foot 3. Short segment longitudinal split thickness tear peroneus brevis tendon 3. Tendinopathy or partial tearing posterior tibialis tendon Dictated and Authenticated by: Kyleigh Zhu MD. Ordering:NENITA Puente MD
--- NOTE | 2022-12-03 16:05 | W.ANESPOSTOP ---
Postoperative Evaluation Date, Time and Location Date Performed: 12/03/22 Time Performed: 16:05 Patient Location: Med/Surg Vital Signs Most Recent Imported Vital Signs: Most Recent Vital Signs Temp Pulse Resp BP Pulse Ox 36.6 C 64 18 106/69 100 12/03/22 08:01 12/03/22 08:01 12/03/22 08:01 12/03/22 08:01 12/03/22 08:01 Pain Score Most Recent Pain Score: Most Recent Pain Score Pain Level 7 12/03/22 02:45 Assessment Mental Status: Awake (Alert & Oriented to Patient Baseline) Airway and Respiratory Function: Patent airway with normal (patient baseline) respiratory exam Cardiovascular Function: Hemodynamically Stable Hydration Status: Adequately Hydrated Nausea & Vomiting: No Nausea or Vomiting Pain: Other (states her pain is okay, but she is uncomfortable and is asking for ketorloac - her RN was notified. ) Peripheral Nerve Block: Patient did not receive a nerve block
--- NOTE | 2022-12-03 16:11 | W.PM.PROGNOT ---
Date of Service Date of service: 12/03/22 Time of Service: 12:00 Assessment and Plan Assessment and plan (1) Abscess of left foot excluding toes: Status: Acute (2) Foreign body in foot, left: Status: Acute (3) Localized swelling of left lower extremity: Status: Acute (4) Cellulitis of left foot: Status: Acute (5) Pain in left foot: Status: Acute Assessment and plan: Patient was seen bedside today noted to be resting comfortably. All labs and imaging were reviewed. I ordered an MRI today. MRI shows evidence for dense edema to the left foot however no evidence for a drainable abscess or loculated collection noted. No evidence for glass or metal foreign body noted. Cultures were reviewed and noted to be with growth of Staphylococcus species. Patient does have history of MRSA. Vancomycin was discontinued and the patient was started on Bactrim. The left foot was evaluated today there was mild sanguinous drainage to the inner layer of dressings. There is palpable pain noted to the dorsal forefoot of the left foot particularly around the 1-5 metatarsal area. There is some residual erythema however erythema and edema noted to be significantly reduced at time. Patient was advised that considering the redness persists I recommend removal of 2 sutures to allow for the wound to be flushed. Patient understood and agreed. 2 sutures were removed from the dorsal first interspace incision site some coagulum was noted here however no purulence no malodor was noted. The area was irrigated with sterile saline. Dressings were then applied with Xeroform gauze, 4 x 4, ABD, Kerlix and an Elfego wrap. Patient is to keep the left lower extremity elevated at all times. Patient is to remain nonweightbearing to the left foot. Patient is advised to apply ice around the foot and behind the knee 10 minutes on 20 minutes off around the clock. We will plan to take the patient to the OR again tomorrow around noon for repeat washout since the redness, pain and edema persist. Patient to be n.p.o. midnight Subjective Subjective Interval history since last seen: Patient was seen bedside today resting comfortably. She reports some pain to the left foot when she attempted walking on it however with elevating the pain is controlled. She states that it feels 80% better than yesterday now. Overall pain is controlled. Denies any worsening denies fevers chills nausea vomiting or diarrhea. Patient is requesting her Ritalin Exam Extrem Other: Left lower extremity physical exam: Derm: 4 incision sites noted in total. Incision site medial aspect of the left first metatarsophalangeal joint is noted to be intact and healing well, sutures are intact without any signs of dehiscence there is no periwound erythema noted here. No bogginess no crepitus no fluctuance. Incision site dorsal aspect of the left interspace noted to be well coapted without any signs of dehiscence the sutures are in place, however there is erythema edema and tenderness to palpation noted here, no proximal streaking noted at this time no bogginess no crepitus no fluctuance no palpable abscess Incision site lateral aspect of the left fifth metatarsal base is noted to be healing very well with sutures in place without any signs of dehiscence no erythema mild edema no pain on palpation. Incision site just distal to the left ankle joint laterally is noted to be healing very well sutures are in place no signs of dehiscence no erythema mild edema no drainage no malodor noted. Vascular: DP PT pulses are palpable, skin is warm to touch, no calf pain no chest pain. MSK tenderness to palpation noted to the dorsal aspect of the left foot particularly around the midshaft of the 1-5 metatarsals. Neuro: Light touch sensation noted. To be intact. Objective Last Vital Signs Temp 97.9 F 12/03/22 08:01 Pulse 64 12/03/22 08:01 Resp 18 12/03/22 08:01 BP 106/69 12/03/22 08:01 Pulse Ox 100 12/03/22 08:01 Laboratory Results - last 24 hr 12/02/22 12/02/22 12/03/22 06:38 14:30 06:38 WBC 4.58 4.47 RBC 3.53 L 3.59 L Hgb 11.0 L 11.4 11.0 L Hct 32.8 L 33.4 L MCV 93 91 93 MCH 31.2 30.6 MCHC 33.5 33.6 32.9 RDW 13.3 13.4 Plt Count 173 195 177 MPV 9.7 9.8 Immature Gran % 0.0 Neutrophils % 62.2 Lymphocytes % 23.0 Monocytes % 10.1 Eosinophils % 4.3 Basophils % 0.4 Nucleated RBC % 0.0 Absolute Neutrophils 2.78 Absolute Lymphocytes 1.03 L Absolute Monocytes 0.45 Absolute Eosinophils 0.19 Absolute Basophils 0.02 Time Spent with Patient Time Spent with Patient: >50 minutes Time was spent: preparing to see the patient(eg.review tests), obtaining and/or reviewing separately otained hiistory, ordering medications,tests, procedures, referring, communicating with other health animal care supervisor, indepentently interpreting results, counseling the patient and care coordination
[2022-12-03 16:14] VITALS: BP 146/54; PULSE 76; RESP 18; TEMP 36.9; O2SAT 100
--- NOTE | 2022-12-03 16:16 | CHAPLAIN ---
Denisse and I remembered each other from previous admissions. She is here because her left foot and ankle are swollen. She had glass removed from her foot, according to ED notes and Denisse said she is going for a scan to see if there is any left in her foot that's causing the swelling. Her right foot was amputated a few years ago. Denisse asked for some snacks that I was able to get for her after checking with nursing staff.
[2022-12-03] MEDS: Lactated Ringers 1,000 ML 125 ML IV (18:31)
[2022-12-03] MEDS: Ketorolac 10 MG TAB PO (19:14)
[2022-12-03] MEDS: Sulfameth/Trimeth DS TAB 1 TAB PO (20:43)
[2022-12-04] VITALS (8 sets, daily range): BP systolic 72–122; BP diastolic 36–89; PULSE 52–70; RESP 11–18; TEMP 35.7–37; O2SAT 96–100; BMI 24.4
[2022-12-04] MEDS: PIPERACILLIN/TAZO 3.375 GM in Normal Saline 50 ML IVPB ×4 (01:14→20:13)
[2022-12-04] MEDS: Ketorolac 10 MG TAB PO ×3 (01:24→16:32)
[2022-12-04] MEDS: Sulfameth/Trimeth DS TAB 1 TAB PO ×2 (07:42→20:12)
[2022-12-04] MEDS: Normal Saline Flush 10 ML SYR IVP ×2 (07:43→20:13)
[2022-12-04] MEDS: DULoxetine 30 MG CAP 60 MG PO (07:45)
--- NOTE | 2022-12-04 08:13 | W.PODCONSULT ---
Date of service: 12/04/22 Time of Service: 07:45 Assessment and Plan Assessment and plan (1) Abscess of left foot excluding toes: Status: Acute (2) Foreign body in foot, left: Status: Acute (3) Localized swelling of left lower extremity: Status: Acute (4) Cellulitis of left foot: Status: Acute (5) Pain in left foot: Status: Acute Assessment and plan: Patient was seen bedside today noted to be resting comfortably. All labs and imaging were reviewed. I discussed the MRI findings with the patient today. Patient was discussed and advised that there is no evidence for glass remaining foreign body as noted in MRI at this time. She was also advised there is no evidence for a drainable abscess. Patient was advised that I am concerned about the persistent erythema and recommend repeat OR washout. Patient was advised that she is at risk for losing her left lower extremity. Patient verbalized understanding. Patient has been n.p.o. since midnight. Consult was placed to the hospitalist for medical management at this time. We will continue her on antibiotics. Final cultures pending History of Present Illness Narrative: Patient seen bedside today resting comfortably. Reports burning pain to the left foot. States she woke up several times overnight however that is normal for her being a mom. No events overnight. She is requesting Reglan dose change to 20 mg twice daily of Ritalin which is not extended release. She states that the dose she is getting here is not helping her. She did states that she has been taking Ritalin 40 mg daily along with methadone has been tolerating it well. She would like to know if her dose for gabapentin was changed. Review of Systems Integumentary/Breasts Comments: Left foot infection PFSH All Active Problems Abscess of left foot excluding toes (Acute) Pain in left foot (Acute) Edema (Acute) Mitral regurgitation (Chronic) Opioid dependence (Chronic) Anemia (Chronic) Anxiety (Chronic) Prepatellar bursitis of right knee (Acute) Fever (Acute) DVT prophylaxis (Acute) Discharge planning issues (Acute) Insomnia (Acute) ADHD, hyperactive-impulsive type (Chronic 05/14/16) Anemia of chronic disease (Acute 01/17/16) Bacterial vaginosis (Acute 05/24/13) Rx with Metronidazole cream given 04/19/15. Cardiomyopathy (Chronic 01/22/16) Chronic hepatitis C without hepatic coma (Chronic 01/11/15) Depression (Acute 01/11/15) History of drug abuse (Acute 01/17/16) In IP treatment at [place], no longer on methadone as of 01/17/16. Family court is close to resolved - will end . She is expecting 1st daughter to come home. 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, Viral illness (Acute) Dehydration (Acute) Smoker (Acute) (Acute) Cellulitis of hand, right (Acute) Cellulitis (Acute) Throat pain in adult (Acute) Foreign body in foot, left (Acute) Localized swelling of left lower extremity (Acute) Cellulitis of left hand (Acute) Pneumonia (Acute) Anemia (Chronic) Hyponatremia (Acute) Intractable low back pain (Acute) Bacteremia (Acute) Sepsis (Acute) Endocarditis (Acute) Anemia (Chronic) Pulmonary nodules (Acute) Cardiac arrest with successful resuscitation (Acute) Hyperkalemia (Acute) Metabolic acidosis (Acute) Closed head injury (Acute) Lactic acidosis (Acute) PEGGY (acute kidney injury) (Acute) Fungemia (Acute) Acute respiratory failure with hypoxia (Acute) RBBB (Acute) Left posterior fascicular block (LPFB) (Acute) Mild tricuspid regurgitation (Acute) Hepatitis C (Chronic) IV drug user (Acute) Cardiac asystole (Acute) Lack of intravenous access (Acute) Acute foreign body of left foot (Acute) Cellulitis of left foot (Acute) Medical History ADHD Alcohol abuse Amputation of right foot COVID-19 virus infection Depression difficulty bonding with 2nd child. child removed from her custody. was on Wellbutrin but had sz and not on meds at this time. has appt with counselor 03/2015 Effusion, right knee Herpes, vulvar History of depression HSV infection Hx of who one week after . ? HSV or H1N1 infection. Pt has been on prophylaxis with pregnancies. Hx of cocaine abuse Paresthesia of both hands Personality disorder examination or test, positive result PTSD (post-traumatic stress disorder) Surgical History Amputation 12/23/16;[facility]; RIGHT BELOW THE KNEE section (11/24/12) PCD @ 35w. IUGR. NRFH. [id number]. [facility] [place]. Pt arrived in labor and declined SUN. F. Jessica. Family History Mother No problems noted. Father No problems noted. Brother No problems noted. Grandfather No problems noted. Grandfather No problems noted. Grandmother No problems noted. Grandmother No problems noted. Son No problems noted. Son No problems noted. Daughter No problems noted. Daughter No problems noted. Social History Smoking/Tobacco Use Status: Current every day Tobacco Type: cigarettes Smoking risk assessment performed?: Yes Alcohol Intake: former Drug use: Occasionally Substance use type: former substance user, marijuana, crack/cocaine and heroin Housing: house Do you feel safe at home: Yes Do you feel safe in your relationship?: Yes Additional Social history: pt states she is on methadone History History 4 Para 4 Hx # Term Pregnancies Multiple births Hx # Pregnancies Ectopic pregnancies AB induced Hx Number of Living Children 3 AB spontaneous Past Pregnancies Del. Date GA/Weeks # Preg Succ Route Wgt Sex Labor Lgth Anesthesia Location Prov Complic 12/28/20 25 Delivery Date: 12/28/20 Last Updated by: Roxanna Rocha LPN Patient transferred OB care to [facility] Exam Extrem Other: Left lower extremity physical exam: Derm: 4 incision sites noted in total. Decreasing erythema and edema noted to the left foot however erythema does persist tenderness to palpation and paresthesias reported to the dorsum of the left foot. Incision site medial aspect of the left first metatarsophalangeal joint is noted to be intact and healing well, sutures are intact without any signs of dehiscence there is no periwound erythema noted here. No bogginess no crepitus no fluctuance. Incision site dorsal aspect of the left interspace noted to be well coapted without any signs of dehiscence the sutures are in place, however there is erythema edema and tenderness to palpation noted here, no proximal streaking noted at this time no bogginess no crepitus no fluctuance no palpable abscess Incision site lateral aspect of the left fifth metatarsal base is noted to be healing very well with sutures in place without any signs of dehiscence no erythema mild edema no pain on palpation. Incision site just distal to the left ankle joint laterally is noted to be healing very well sutures are in place no signs of dehiscence no erythema mild edema no drainage no malodor noted. Vascular: DP PT pulses are palpable, skin is warm to touch, no calf pain no chest pain. MSK tenderness to palpation noted to the dorsal aspect of the left foot particularly around the midshaft of the 1-5 metatarsals. Neuro: Light touch sensation noted. To be intact. Results Last Vital Signs Temp 98.6 F 12/04/22 07:55 Pulse 65 12/04/22 07:55 Resp 18 12/04/22 07:55 BP 108/69 12/04/22 07:55 Pulse Ox 98 12/04/22 07:55 Labs 12/03/22 06:38 12/02/22 14:30 Labs: Laboratory Results - last 24 hr 12/03/22 06:38 WBC 4.47 RBC 3.59 L Hgb 11.0 L Hct 33.4 L MCV 93 MCH 30.6 MCHC 32.9 RDW 13.4 Plt Count 177 MPV 9.8 Immature Gran % 0.0 Neutrophils % 62.2 Lymphocytes % 23.0 Monocytes % 10.1 Eosinophils % 4.3 Basophils % 0.4 Nucleated RBC % 0.0 Absolute Neutrophils 2.78 Absolute Lymphocytes 1.03 L Absolute Monocytes 0.45 Absolute Eosinophils 0.19 Absolute Basophils 0.02 Imaging Imaging Studies: Patient Name: Denisse Mcdermott Unit #: [id number] Loc: [place] ? Ordering Provider:? Status: ADM JESUSITA ? Primary Care Provider: Ivonne Hampton Date of Exam: 12/03/22 Sex: F ? : 1985 Age: 37 ? Exam(s) PROCEDURE INFORMATION: Exam: MR Left Lower Extremity Other Than Joint Without and With Contrast; Foot Exam date and time: 12/03/2022 3:05 PM Age: 37 years old Clinical indication: Edema; No, it is generalized; Prior surgery; Surgery date: Post-operative (0-2 days); Surgery type: Left foot surgery on 12/02/22 to remove f/b. Foot pain prior to surgery; Patient HX: Patient sts left foot feels hot severe left foot pain? Abscesses TECHNIQUE: Imaging protocol: Magnetic resonance imaging of the left lower extremity without and with contrast. Exam focused on the foot. Contrast material: DOTAREM; Contrast volume: 15 ml; Contrast route: INTRAVENOUS (IV);? COMPARISON: CT LOWER EXTREMITY LT WO 12/02/2022 1:56 PM FINDINGS: Bones/joints: Thickening and heterogeneity the distal posterior tibialis tendon as it courses under navicular bone, suspicious for partial tearing tendinopathy. LIGAMENTS: Lisfranc ligament: Unremarkable. No evidence of tear. TENDONS: Flexor tendons of foot: Unremarkable. No evidence of tear. Tibialis posterior tendon: Unremarkable as visualized. Peroneal tendons: Unremarkable as visualized. Extensor tendons of foot: Unremarkable. No evidence of tear. Tibialis anterior tendon: Unremarkable as visualized. Tarsal canal (Sinus tarsi): Unremarkable. Tarsal tunnel: Unremarkable. Soft tissues: Diffuse subcutaneous edema, especially on top the foot on the lateral aspect ankle. Areas of non loculated fluid in the subcutaneous fat top foot. Skin wound top foot near the base of 1st and 2nd metatarsals extending into the dense edema. No loculated fluid collection is identified. Plantar fascia: Unremarkable as visualized. IMPRESSION: 1. Skin wound top of foot near the base of the 1st and 2nd MTP joints. 2. Very dense subcutaneous edema the foot, especially on the top of the foot 3. Short segment longitudinal split thickness tear peroneus brevis tendon 3.? Tendinopathy or partial tearing posterior tibialis tendon? Dictated and Authenticated by: Kyleigh Zhu MD. Ordering:NENITA Puente MD Ordered By:? CC: ? Dictated By: Reports vrad? 12/03/22 1505 ? 12/03/22 1551 Transcribed By: Ivette Carrero?? ? This is privileged, confidential information intended only for the provider named. Any use or distribution by any person other than this provider is strictly prohibited. If you receive this report in error, please notify us immediately at [phone] and return the original report to us at the address above. Thank-you.
[2022-12-04] MEDS: Methadone Liquid 10 MG/ML 105 MG PO (08:38)
[2022-12-04] MEDS: Lactated Ringers 1,000 ML 125 ML IV (08:42)
[2022-12-04] MEDS: Gabapentin 800 MG TAB PO ×3 (10:07→20:12)
--- NOTE | 2022-12-04 10:10 | NUR.NOTE ---
Nursing Note:Gabapentin given 30mins past due, due to medication being question. med okay to give.
--- NOTE | 2022-12-04 11:37 | ANES.PREOP_ITS ---
General Info Date of Service Date Performed: 12/04/22 Height: 5 ft 8 in Weight: 72.857 kg Body Mass Index (BMI): 24.4 Surgical Procedure: Operation Date: 12/02/22 16:25 Proposed Procedure Side Surgeon p I&D of Foot, Foreign Body Removal Left Cindi PEG Patel Actual Procedure Side Surgeon p I&D of Foot, Foreign Body Removal Left Cindi Patel DPM Pre-Op Diagnosis Post-Op Diagnosis FOREIGN BODY/CELLULITIS/SWOLLEN LEFT FOOT FOREIGN BODY/CELLULITIS/SWOLLEN LEFT FOOT Operation Date: 12/04/22 12:10 Proposed Procedure Side Surgeon p I&D of Foot Left Cindi PEG Patel Meds Allergies and Home Medications Allergies Allergy/AdvReac Type Severity Reaction Status Date / Time bupropion HCl AdvReac Intermediate Contraindic Unverified 12/02/22 12:17 [From Wellbutrin SR] ated Home Medication Medication Instructions Recorded naloxone 4 mg/actuation nasal 4 mg intranasal Q2M PRN 05/29/20 spray (Narcan) gabapentin 800 mg tablet 800 mg PO QID 06/02/21 methadone 10 mg/mL oral concentrate 105 mg PO DAILY 06/02/21 duloxetine 30 mg capsule,delayed 60 mg PO DAILY 11/27/21 release furosemide 20 mg tablet 20 mg PO DAILY PRN PRN Edema 12/03/22 methylphenidate HCl 40 mg biphasic 40 mg PO DAILY 12/03/22 50-50 capsule,extended release (Ritalin LA) Current Visit Medications: Current Medications Generic Name Dose Route Start Last Admin Trade Name Freq PRN Reason Stop Dose Admin Duloxetine HCl 60 mg 12/04/22 08:30 12/04/22 07:45 Duloxetine 30 Mg Cap PO 60 mg DAILY LUCY Administration Gabapentin 800 mg 12/02/22 20:30 12/04/22 10:07 Gabapentin 800 Mg Tab PO 800 mg QID LUCY Administration Ringer's Solution 1,000 mls @ 125 mls/hr 12/02/22 18:00 12/04/22 08:42 IV 125 mls/hr INFUSION LUCY Administration Sodium Chloride 500 mls @ 0 mls/hr 12/02/22 19:41 Saline 500ml Bag IV PRN PRN As Directed Piperacillin Sod/Tazobactam 50 mls @ 100 mls/hr 12/03/22 06:00 12/04/22 06:12 Sod 3.375 gm/ Sodium Chloride IVPB Infused Q6H [facility] Infusion IV Miscellaneous Supplies 1 each 12/02/22 19:45 Iv Access IV DIRECTED [facility] Ketorolac Tromethamine 10 mg 12/03/22 18:48 12/04/22 07:42 Ketorolac 10 Mg Tab PO 10 mg Q6H PRN Administration Pain Methadone HCl 105 mg 12/03/22 08:30 12/04/22 08:38 Methadone Liquid 10 Mg/Ml PO 105 mg DAILY LUCY Administration Methylphenidate HCl 20 mg 12/03/22 17:00 12/04/22 07:01 Methylphenidate-Sr 20 Mg Tabcr PO Not Given BID@0500,1700 [facility] Povidone Iodine 0 ml 12/02/22 15:00 Povidone-Iodine Soln. 118 Ml Btl TP DIRECTED [facility] Sodium Chloride 0 ml 12/02/22 19:41 12/04/22 07:43 Normal Saline Flush 10 Ml Syr IVP 10 ml PRN PRN Administration Trimethoprim/Sulfamethoxazole 1 tab 12/03/22 20:00 12/04/22 07:42 Sulfameth/Trimeth Ds Tab PO 12/10/22 23:00 1 tab BID LUCY Administration Zolpidem Tartrate 5 mg 12/02/22 20:10 Zolpidem 5 Mg Tab PO HS PRN MAY REPEAT X1 PRN PFSH Active Problems Active Problems: Problem Status Onset Code Edema R60.9 Mitral regurgitation I34.0 Opioid dependence F11.20 Anemia D64.9 Anxiety F41.9 Prepatellar bursitis of right knee M70.41 Fever R50.9 DVT prophylaxis Discharge planning issues Z02.9 Insomnia G47.00 ADHD, hyperactive-impulsive type 05/14/16 F90.1 Anemia of chronic disease 01/17/16 D63.8 Bacterial vaginosis 05/24/13 N76.0, B96.89 Cardiomyopathy 01/22/16 I42.9 Chronic hepatitis C without hepatic coma 01/11/15 B18.2 Depression 01/11/15 F32.9 History of drug abuse 01/17/16 Z87.898 History of kidney injury 01/17/16 Z87.828 History of oligohydramnios in prior , currently in third trimester 11/05/15 O09.293 History of prior with IUGR 01/11/15 Z87.59 Pleural effusion, bilateral 01/22/16 J90 Subacute endocarditis 01/22/16 I33.9 Viral illness B34.9 Dehydration E86.0 Smoker F17.200 Z34.90 Cellulitis of hand, right L03.113 Cellulitis L03.90 Throat pain in adult R07.0 Foreign body in foot, left S90.852A Localized swelling of left lower extremity R22.42 Cellulitis of left hand L03.114 Pneumonia J18.9 Anemia D64.9 Hyponatremia E87.1 Intractable low back pain M54.59 Bacteremia R78.81 Sepsis A41.9 Endocarditis I38 Scalded skin syndrome L00 Anemia D64.9 Pulmonary nodules R91.8 Cardiac arrest with successful resuscitation I46.9 Hyperkalemia E87.5 Metabolic acidosis E87.20 Closed head injury S09.90XA Lactic acidosis E87.20 PEGGY (acute kidney injury) N17.9 Fungemia B49 Acute respiratory failure with hypoxia J96.01 RBBB I45.10 Left posterior fascicular block (LPFB) I44.5 Mild tricuspid regurgitation I07.1 Hepatitis C B19.20 IV drug user F19.90 Cardiac asystole I46.9 Lack of intravenous access Z78.9 Acute foreign body of left foot S90.852A Cellulitis of left foot L03.116 Pain in left foot M79.672 Abscess of left foot excluding toes L02.612 Medical History Medical History ADHD Alcohol abuse Amputation of right foot COVID-19 virus infection Depression difficulty bonding with 2nd child. child removed from her custody. was on Wellbutrin but had sz and not on meds at this time. has appt with counselor 03/2015 Effusion, right knee Herpes, vulvar History of depression HSV infection Hx of infant who one week after . ? HSV or H1N1 infection. Pt has been on prophylaxis with pregnancies. Hx of cocaine abuse Paresthesia of both hands Personality disorder examination or test, positive result PTSD (post-traumatic stress disorder) Surgical History Surgical History Amputation 12/23/16;[facility]; RIGHT BELOW THE KNEE section (11/24/12) PCD @ 35w. IUGR. NRFH. [id number]. [facility] [place]. 03/26/15 RCD. Pt arrived in labor and declined SUN. Chad Lopez. Tobacco Smoking/Tobacco Use Status: Current every day Tobacco Type: cigarettes Smoking cigarettes per day: 10 Alcohol Alcohol Intake: former Substance Use Substance use: Occasionally Substance use type: former substance user, marijuana, crack/cocaine and heroin Prental History History 4 Para 4 Hx # Term Pregnancies Multiple births Hx # Pregnancies Ectopic pregnancies AB induced Hx Number of Living Children 3 AB spontaneous Past Pregnancies Del. Date GA/Weeks # Preg Succ Route Wgt Sex Labor Lgth Anesth esia Location Prov [facility] 12/28/20 25 Delivery Date: 12/28/20 Last Updated by: Roxanna Rocha LPN Patient transferred OB care to [facility] Vital Signs and Lab Results Vital Signs Most Recent Vital Signs in EMR: Most Recent Vital Signs Temp Pulse Resp BP Pulse Ox 37.0 C 65 18 108/69 98 12/04/22 07:55 12/04/22 07:55 12/04/22 07:55 12/04/22 07:55 12/04/22 07:55 Lab Results 12/03/22 06:38 12/02/22 14:30 Blood Type / Crossmatch: No Data to Display Complete Blood Count: White Blood Count 4.47 10^3/uL (4.4-10.8) 12/03/22 06:38 Red Blood Count 3.59 10^6/uL (3.93-5.22) L 12/03/22 06:38 Hemoglobin 11.0 g/dL (11.2-15.7) L 12/03/22 06:38 Hematocrit 33.4 % (36.0-46.0) L 12/03/22 06:38 Platelet Count 177 10^3/uL (130-400) 12/03/22 06:38 Complete Metabolic Panel: Sodium 135 mmol/L (136-145) L 12/02/22 14:30 Potassium 3.7 mmol/L (3.5-5.1) 12/02/22 14:30 Chloride 99 mmol/L (98-107) 12/02/22 14:30 Carbon Dioxide 28.3 mmol/L (21.0-32.0) 12/02/22 14:30 BUN 6 mg/dL (7-18) L 12/02/22 14:30 Creatinine 0.8 mg/dL (0.55-1.02) 12/02/22 14:30 Est GFR (CKD-EPI 2020) 96.66 (mL/min/1.73m2) 12/02/22 14:30 Calcium 9.2 mg/dL (8.5-10.1) 12/02/22 14:30 Glucose 90 mg/dL (74-106) 12/02/22 14:30 Liver Function Panel: No Data to Display Coagulation Panel: No Data to Display Cardiac Panel: No Data to Display Arterial Blood Gas: No Data to Display Venous Blood Gas: No Data to Display Pancreas Panel: No Data to Display Thyroid Panel: No Data to Display Infectious Disease: No Data to Display Blood Cultures: No Data to Display Toxicology Panel: No Data to Display Panel: Serum HCG, Qualitative Negative 12/02/22 14:30 Imaging and Studies Imaging and Studies Study information below may be from another EMR and interpreted by another provider. Please see original notes in EMR for more complete details. EKG Summary: 12/10/2021: Exam: Resting ECG Reason for Exam: hyperkalemia Patient Location: I HR:103 bpm ECG Measurements Heart Rate [address] 186 P 102 QRSd 168 QRS 103 QT 423 T5 QTc 554 Conclusion Sinus tachycardia...rate> 99 RBBB and LPFB...QRSd >120mS, axis(90,210) Echocardiogram Summary: 11/28/2021: Conclusion Normal left ventricular wall thickness and chamber size. Estimated ejection fraction is 60 to 65%. Wall motion is normal Normal right ventricular size and systolic function Both atria are normal in size Tricuspid valve leaflets appear thickened with probable vegetation Mild tricuspid regurgitation, 2 jets There are no additional valvular abnormalities Anesthesia Assessment and Plan Anesthesia History Personal History: No History of Anesthesia Complications Family History: No Family History of Anesthesia Complications Exercise Tolerance Exercise Tolerance: Metabolic Equivalents>4 Pertinent Negatives Pertinent Negatives: No Symptoms of GERD, No Major Cardiovascular Symptoms or Complaints and No Major Pulmonary Symptoms or Complaints Cardiac & Pulmonary Exam Cardiac Exam: Normal S1/S2 Heart Sounds Pulmonary Exam: Clear Bilateral Breath Sounds Implantable Cardiac Device Does patient have a Pacemaker or an ICD?: No Airway Exam Known Difficult Airway: No Mallampati Class: 1 Mouth Opening: Normal (> 3cm) Thyromental Distance: Greater than 3 cm Neck Range of Motion: Full ROM Neck Circumference: Normal Teeth Condition: Generalized Poor Dentition ASA Classification ASA Score: ASA 3 Emergency Case?: No NPO Status NPO Status: NPO Clears >2 hours, Solids >8 hours Status Status: Negative HCG Anesthesia Plan Resuscitation Status: Full Code Anesthesia Technique: General Anesthesia Airway Planned: Natural Airway Monitors Used: Standard Monitors Preoperative Comments:: Surgeon to perform ankle block
[2022-12-04] MEDS: Lidocaine 1% Pres-Free 30 ML VIAL (13:11)
--- NOTE | 2022-12-04 13:11 | W.ANESVAS ---
Midline Placement Date Performed: 12/04/22 Procedure Time: 13:00 Requesting Provider: Nasima Castellanos Procedure Location: Operating Room Sedation Given (Indicate Dose Given): No Sedation given Patient Mental Status: Performed under general anesthesia Sterility: Hand Hygiene, Surgical Cap, Surgical Mask, Sterile Gloves, Sterile Drape/Sheet, Eye Protection and Chlorhexidine Laterality: Right Insertion Site: Brachial Midline Device: PowerGlide Pro 18G Catheter Length: 10 cm Midline Procedure Procedure: Vessel accessed with needle, Vessel accessed with catheter over needle, Guidewire placed with ease, Catheter placed without resistance and Guidewire removed Dressing: Other (Catheter removed) Blood Return: Present Flushes: Other (Did not flush) Ultrasound: Sterile probe cover and gel used Ultrasound Image Saved?: No Number of Attempts (See previous attempts in note section): 1 Procedure Tolerated: Complications Encountered Procedure Outcome: Unsuccessful Procedure Comment:: Ultrasound used with Yoni Cortés CRNA present. Under direct ultrasound guidance, vessel identified and compressible, and color doppler utilized. Vessel apears to be vein and accessed without difficulty, noted to have pulsating flow and catheter removed and pressure applied to site. No complications noted. Performed By: Nasima Castellanos
[2022-12-04] MEDS: Bupivacaine 0.5% Pres-Free 30 ML VIAL (13:20)
--- NOTE | 2022-12-04 13:33 | W.PM.OP ---
Date of service: 12/04/22 Time of Service: 12:00 Operative Note Operative Note DATE OF PROCEDURE: 12/02/22 PRE-OP DIAGNOSIS: Cellulitis, abscess, left foot POST-OP DIAGNOSIS: other (Cellulitis, left foot) PROCEDURE: Incision and drainage with debridement of necrotic tissue, left foot SURGEON: Cindi Patel ANESTHESIA TYPE: Local By Surgeon and MAC Refer to Anesthesia Record ESTIMATED BLOOD LOSS: 10 PATHOLOGY: none sent (Wound cultures, foreign body, left foot) TOURNIQUET TIME: 17 Patient was transported to: PACU Implants: None Indications: This is a 37-year-old female patient is status post ORIF I&D. Patient was seen postop day 1 and noted to have residual erythema and edema with severe tenderness to palpation to multiple sites of the left foot. Patient was seen on the floor again today noted to have edema erythema and tenderness to palpation to multiple sites on left foot of note, patient reports pain to the left first interspace, left fourth metatarsal, lateral aspect of the left fifth metatarsal with overlying the previous incision site, pain to left first interspace medially. Overall, patient reports less pain today however does continue to report severe pain. Advised patient I recommend repeat I&D to see if there is any residual abscess or foreign body. Patient understood and agreed. I discussed all risk benefits and possible complications of the procedure with the patient including but not limited to pain, nerve pain, delayed healing, nonhealing, wound dehiscence, need for further surgery or amputation, risk for DVT, PE, stroke, MA or with anesthesia, nerve pain CRPS or delayed healing. Patient understood and agree no contraindications were noted to the procedure at this time. All chart and imaging were reviewed. Procedure Description: Patient was identified in preop holding site was marked. I discussed the procedure in detail with the patient. Patient was brought to the operating room placed on the operating table in the supine position. After induction of general anesthesia the left lower extremity was blocked via a ankle block using 20 mL of 1% lidocaine plain. An ankle tourniquet was then applied. Left lower extremity was then scrubbed prepped and draped in the usual aseptic manner. The tourniquet was then inflated. Previous stitches were removed from the dorsal first interspace incision, medial and incision, lateral incision the incision site just below the ankle joint was left intact. These areas were then explored no further hematoma or abscess was noted. The skin looked clean however there was some necrotic tissue to the incision site at the first interspace this was debrided with a rongeur. Attention was then directed to the dorsal aspect of the left fourth metatarsal at the point of maximal tenderness identified prior and a 3 cm linear longitudinal incision was made using a sterile #15 blade this was deepened through the skin and subcutaneous tissue, care was taken not to violate any neurovascular structures, healthy yellow tissue was noted serous drainage was noted here as well and incision was made to not further deepen or explore this area as it looked healthy. All the incision sites were then irrigated with 3 mL saline with clindamycin solution. Incisions were then reapproximated using 3-0 nylon and the tourniquet was then deflated no extensive bleeders were identified. Dressings were then applied with Xeroform gauze, 4 x 4, Kerlix, Elfego wrap. Patient tolerated the procedure and anesthesia well with vital signs able and vascular status intact to left lower extremity. Patient was transferred to PACU for further monitoring. Patient is to be transferred back to the floor when stable. She is to keep the left lower extremity elevated at all times. She is to rest. She is to apply ice for 20 minutes on and 20 minutes off around the clock.
[2022-12-04] MEDS: ePHEDrine 25 MG/5 ML Syringe IVP (13:36)
--- NOTE | 2022-12-04 14:00 | W.ANESPOSTOP ---
Postoperative Evaluation Date, Time and Location Date Performed: 12/04/22 Time Performed: 14:00 Patient Location: Day Surgery Unit Vital Signs Most Recent Imported Vital Signs: Most Recent Vital Signs Temp Pulse Resp BP Pulse Ox 36.6 C 57 L 11 L 96/49 L 100 12/04/22 13:46 12/04/22 13:46 12/04/22 13:46 12/04/22 13:46 12/04/22 13:46 Most Recent Vital Signs Temp Pulse Resp BP Pulse Ox 36.6 C 64 18 106/69 100 12/03/22 08:01 12/03/22 08:01 12/03/22 08:01 12/03/22 08:01 12/03/22 08:01 Pain Score Most Recent Pain Score: Most Recent Pain Score Pain Level 5 12/04/22 07:55 Assessment Mental Status: Awake (Alert & Oriented to Patient Baseline) Airway and Respiratory Function: Patent airway with normal (patient baseline) respiratory exam Cardiovascular Function: Hemodynamically Stable Hydration Status: Adequately Hydrated Nausea & Vomiting: No Nausea or Vomiting Pain: Pt. Denies Any Pain Peripheral Nerve Block: Regional nerve block not resolved at time of post operative discharge (completed by surgeon)
[2022-12-04 16:38] LABS: Abs Immature Grans 0.01 10^3/uL (0.0-0.06); Absolute Basophil Count 0.01 10^3/uL (0.0-0.2); Absolute Eosinophil Count 0.08 10^3/uL (0.0-0.7); Absolute Lymphocyte Count 0.53 10^3/uL (1.2-3.4); Absolute Monocyte Count 0.14 10^3/uL (0.1-0.8); Absolute Neutrophil Count 3.71 10^3/uL (1.2-6.7); Basophils % 0.2; Eosinophils % 1.8; HCT 32.7 % (36.0-46.0); HGB 10.5 g/dL (11.2-15.7); Immature Grans % 0.2; Lymphocytes % 11.8; MCH 30.1 pg (27.0-33.0); MCHC 32.1 % (32.0-36.0); MCV 94 fL (80-95); MPV 9.2 fL (8.0-11.0); Monocytes % 3.1; Neutrophils % 82.9; Platelet Count 196 10^3/uL (130-400); RBC 3.49 10^6/uL (3.93-5.22); RDW 13.4 % (11.7-14.6); RDW-SD 45.9 fL; WBC 4.48 10^3/uL (4.4-10.8)
[2022-12-04 16:45] LABS: C-Reactive Protein 5.38 mg/dL (0.0-0.3)
--- NOTE | 2022-12-04 17:13 | PDOC.CMPRO ---
Date of service: 12/04/22 Time of Service: 17:14 Care Management Progress Note Progress Note Text Progress Note Text: S/O: venita was sitting up in bed when CM met with her. She was teary, stating that she misses her children. She returned to the OR today for further washout of her wound. She informed CM that she really wants to go home tomorrow. CM encouraged her to discuss her feelings and concerns with her provider in the morning, which she stated she plans to do. A: Venita is a 37 year old woman admitted on 12/03/22 with an abscess of her left foot. P:[facility] when medically cleared. She will follow up with her community providers and plan of care and transport with a friend or family. CM will follow and continue to support discharge planning needs.
--- NOTE | 2022-12-04 17:39 | NUR.NOTE ---
Nursing Note: pt recieved 20mg of ritalin @ 1500 and then 20 mg @1700 this is equal to pt home dose of 40mg, pharmacy is aware of how medication was given and signed off
[2022-12-05] MEDS: PIPERACILLIN/TAZO 3.375 GM in Normal Saline 50 ML IVPB ×4 (01:35→21:45)
[2022-12-05] MEDS: Ketorolac 10 MG TAB PO ×3 (04:17→16:42)
[2022-12-05 07:41] LABS: Abs Immature Grans 0.02 10^3/uL (0.0-0.06); Absolute Basophil Count 0.01 10^3/uL (0.0-0.2); Absolute Lymphocyte Count 0.83 10^3/uL (1.2-3.4); Absolute Monocyte Count 0.21 10^3/uL (0.1-0.8); Absolute Neutrophil Count 3.43 10^3/uL (1.2-6.7); Basophils % 0.2; Eosinophils % 4.3; HCT 35.5 % (36.0-46.0); Immature Grans % 0.4; Lymphocytes % 17.7; MCHC 33.8 % (32.0-36.0); MCV 92 fL (80-95); Monocytes % 4.5; Neutrophils % 72.9; RBC 3.87 10^6/uL (3.93-5.22); RDW 13.2 % (11.7-14.6); RDW-SD 44.4 fL
[2022-12-05 07:47] VITALS: BP 129/80; PULSE 83; RESP 18; TEMP 36.8; O2SAT 100
[2022-12-05 07:52] LABS: Diff Comment Diff Reviewed
[2022-12-05 07:53] LABS: RBC Morphology Normal
[2022-12-05] MEDS: Methadone Liquid 10 MG/ML 105 MG PO (08:31)
[2022-12-05] MEDS: DULoxetine 30 MG CAP 60 MG PO (08:32)
[2022-12-05] MEDS: Gabapentin 800 MG TAB PO ×4 (08:32→20:18)
[2022-12-05] MEDS: Sulfameth/Trimeth DS TAB 1 TAB PO ×2 (08:32→20:18)
--- NOTE | 2022-12-05 09:00 | PGE_ITS ---
Date of Service Date of service: 12/05/22 Time of Service: 09:01 Assessment and Plan Assessment and plan (1) Abscess of left foot excluding toes: Status: Acute (2) Foreign body in foot, left: Status: Acute (3) Localized swelling of left lower extremity: Status: Acute (4) Cellulitis of left foot: Status: Acute (5) Pain in left foot: Status: Acute Assessment and plan: Patient was seen and evaluated bedside today. The dressings were removed. There is resolving erythema resolving edema with very mild tenderness to palpation noted to the left foot uriah-incisional leg no drainage no bogginess no crepitus infection seems to be resolving very well at this time. There is no residual abscess at this time. Some erythema does persist. I reviewed labs and cultures today. Final cultures are pending for now we will continue Bactrim for Staph aureus we will continue Zosyn as well. Dressings were changed with nonadherent dressing, 4 x 4, Kerlix, Elfego wrap. Patient is to continue to keep her left lower extremity elevated at all times. I discussed the case in detail with the medicine team. Their recommendations are greatly appreciated. We will continue to follow Subjective Subjective Interval history since last seen: Patient was seen bedside today resting comfortably. She denies pain to the left foot. States that she feels about 80% better than she did yesterday with respect to the foot she states that there is only some tenderness to touch. Overall doing very well. States she did not sleep well last night because she had to take her Ritalin at 5. Patient would like her Ritalin dose to be adjusted. Exam Extrem Other: Left lower extremity physical exam: Derm: 5 incision sites noted in total. Decreasing erythema and edema noted to the left foot however erythema does persist tenderness to palpation and paresthesias reported to the dorsum of the left foot. Incision site medial aspect of the left first metatarsophalangeal joint is noted to be intact and healing well, sutures are intact without any signs of dehiscence there is no periwound erythema noted here. No bogginess no crepitus no fluctuance. Incision site dorsal aspect of the left interspace noted to be well coapted without any signs of dehiscence the sutures are in place, there is less erythema edema and tenderness to palpation noted here, no proximal streaking noted at this time no bogginess no crepitus no fluctuance no palpable abscess Incision site lateral aspect of the left fifth metatarsal base is noted to be healing very well with sutures in place without any signs of dehiscence no erythema mild edema no pain on palpation. Incision site just distal to the left ankle joint laterally is noted to be healing very well sutures are in place no signs of dehiscence no erythema mild edema no drainage no malodor noted. Incision site dorsal aspect of the left fourth metatarsal is noted to be healing very well and sutures are intact no signs of dehiscence no erythema no mild edema no drainage no malodor noted. Vascular: DP PT pulses are palpable, skin is warm to touch, no calf pain no chest pain. MSK there is less tenderness to palpation noted to the dorsal aspect of the left foot particularly around the midshaft of the 1-5 metatarsals. Neuro: Light touch sensation noted. To be intact. Objective Last Vital Signs Temp 98.2 F 12/05/22 07:47 Pulse 83 12/05/22 07:47 Resp 18 12/05/22 07:47 BP 129/80 12/05/22 07:47 Pulse Ox 100 12/05/22 07:47 Laboratory Results - last 24 hr 12/04/22 12/04/22 12/05/22 16:20 16:20 07:15 WBC 4.48 4.70 RBC 3.49 L 3.87 L Hgb 10.5 L 12.0 Hct 32.7 L 35.5 L MCV 94 92 MCH 30.1 31.0 MCHC 32.1 33.8 RDW 13.4 13.2 Plt Count 196 MPV 9.2 Immature Gran % 0.2 0.4 Neutrophils % 82.9 72.9 Lymphocytes % 11.8 17.7 Monocytes % 3.1 4.5 Eosinophils % 1.8 4.3 Basophils % 0.2 0.2 Nucleated RBC % 0.0 0.0 Absolute Neutrophils 3.71 3.43 Absolute Lymphocytes 0.53 L 0.83 L Absolute Monocytes 0.14 0.21 Absolute Eosinophils 0.08 0.20 Absolute Basophils 0.01 0.01 RBC Morphology Normal C-Reactive Protein 5.38 H Time Spent with Patient Time Spent with Patient: >50 minutes Time was spent: preparing to see the patient(eg.review tests), obtaining and/or reviewing separately otained hiistory, ordering medications,tests, procedures, referring, communicating with other health health care manager, indepentently interpreting results, counseling the patient and care coordination
[2022-12-05 09:13] VITALS: TEMP 38
--- NOTE | 2022-12-05 09:21 | PDOC.CMPRO ---
Date of service: 12/05/22 Time of Service: 09:21 Care Management Progress Note Progress Note Text Progress Note Text: S/O: Denisse was sitting up in bed when CM met with her. She was visiting with her dad and appeared to be in good spirits. Denisse again shared how much she misses her children and wants to go home. When asked, she did state that she had discussed this with her provider and hopes to be able to discharge tomorrow. Home health services for nursing will be ordered for daily dressing changes. She has been cleared by PT to ambulate in her room. A: Denisse is a 37 year old woman admitted on 12/03/22 with an abscess of her left foot. P:[facility] when medically cleared. She will follow up with her community providers and plan of care and transport with a friend or family. CM will follow and continue to support discharge planning needs.
--- NOTE | 2022-12-05 10:55 | PT.INIE ---
Date of service: 12/05/22 Time of Service: 10:55 PT Notes Visit Reasons: abscess left foot Physical Therapy Inpatient Initial Evaluation Date: 12/05/2022 Referring Doctor: Cindi Garcia MD and Sergio Acevedo MD PT Orders: PT CONSULT: S/P Ortho Surgery Precautions: Fall. Standard. Per Dr. Garcia, heel weight bearing only on the L with post op shoe and bilateral axillary crutches. Patient Profile/Admitting Diagnosis: Denisse is a 37-year-old female with diagnosis of abscess of left foot excluding toes, red body and left foot, localized swelling of left LE, cellulitis of left foot, and pain in the foot status post I&D with debridement of necrotic tissue and foreign body removal on 12/02/2022 and I and D of necrotic tissue on L foot on 12/04/2022. PMHX: All Active Problems?(Updated 12/02/22 @ 16:53 by Cindi Patel DPM) Pain in left foot (Acute) Edema (Acute) Mitral regurgitation (Chronic) Opioid dependence (Chronic) Anemia (Chronic) Anxiety (Chronic) Prepatellar bursitis of right knee (Acute) Fever (Acute) DVT prophylaxis (Acute) Discharge planning issues (Acute) Insomnia (Acute) ADHD, hyperactive-impulsive type (Chronic 05/14/16) Anemia of chronic disease (Acute 01/17/16) Bacterial vaginosis (Acute 05/24/13) Rx with Metronidazole cream given 04/19/15. Cardiomyopathy (Chronic 01/22/16) Chronic hepatitis C without hepatic coma (Chronic 01/11/15) Depression (Acute 01/11/15) History of drug abuse (Acute 01/17/16) In IP treatment at [facility], no longer on methadone as of 01/17/16.? Family court is close to resolved - will end .? She is expecting 1st daughter to come home. 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, Viral illness (Acute) Dehydration (Acute) Smoker (Acute) (Acute) Cellulitis of hand, right (Acute) Cellulitis (Acute) Throat pain in adult (Acute) Foreign body in foot, left (Acute) Localized swelling of left lower extremity (Acute) Cellulitis of left hand (Acute) Pneumonia (Acute) Anemia (Chronic) Hyponatremia (Acute) Intractable low back pain (Acute) Bacteremia (Acute) Sepsis (Acute) Endocarditis (Acute) Anemia (Chronic) Pulmonary nodules (Acute) Cardiac arrest with successful resuscitation (Acute) Hyperkalemia (Acute) Metabolic acidosis (Acute) Closed head injury (Acute) Lactic acidosis (Acute) PEGGY (acute kidney injury) (Acute) Fungemia (Acute) Acute respiratory failure with hypoxia (Acute) RBBB (Acute) Left posterior fascicular block (LPFB) (Acute) Mild tricuspid regurgitation (Acute) Hepatitis C (Chronic) IV drug user (Acute) Cardiac asystole (Acute) Lack of intravenous access (Acute) Acute foreign body of left foot (Acute) Cellulitis of left foot (Acute) Medical History? ADHD Alcohol abuse Amputation of right foot COVID-19 virus infection Depression difficulty bonding with 2nd child. child removed from her custody. was on Wellbutrin but had sz and not on meds at this time. has appt with counselor 03/2015 Effusion, right knee Herpes, vulvar History of depression HSV infection Hx of infant who one week after . ? HSV or H1N1 infection. Pt has been on prophylaxis with pregnancies. Hx of cocaine abuse Paresthesia of both hands Personality disorder examination or test, positive result PTSD (post-traumatic stress disorder) Surgical History? Amputation 12/23/16;[facility]; RIGHT BELOW THE KNEE section (11/24/12) PCD @ 35w. IUGR. NRFH. [id number]. [facility] [place]. 03/26/15 RCD. Pt arrived in labor and declined TOL. Chad Lopez. Social History/Home Situation: Independent with all aspects of ADLs prior to surgery. Uses a transtibial prosthesis on R prior to admission.. Equipment Owned/DME: Transtibial prosthesis on the R Subjective: Okay with being made independent in hallway using bilateral axillary crutches and post op shoe on the L side doing heel weight bearing on the right LE. Misses her kids. Objective: General Observation: Seated at edge of bed, putitng on her prosthesis. L transtibial residual limb cylindrical in shape. No skin issue noted. Mental Status: Alert and oriented as to person, place, time, and purpose. Able to pay attention, focus, and respond appropriately. Pain: 4-5/10 in the L foot with weight heel bearing Vital Signs: Wnl as closely monitored by nursing staff ROM: Right Upper Extremity: Shoulder Flexion WFL. Shoulder abduction WFL. Elbow flexion WFL. Wrist flexion WFL. Functional opening and closing of hand WFL. Left Upper Extremity: Shoulder Flexion WFL. Shoulder abduction WFL. Elbow flexion WFL. Wrist flexion WFL. Functional opening and closing of hand WFL. Right Lower Extremity: Hip flexion WFL. Hip abduction WFL. Knee flexion WFL. Left Lower Extremity: Hip flexion WFL. Hip abduction WFL. Knee flexion WFL. Ankle dorsiflexion able to heel weight bear. Ankle plantarflexion not assesed due to bulky dressing. Strength: Right Upper Extremity: Shoulder flexors 5/5. Shoulder abductors 5/5. Elbow flexors 5/5. Elbow extensors 5/5. Real Time Operator strong. Left Upper Extremity: Shoulder flexors 5/5. Shoulder abductors 5/5. Elbow flexors 5/5. Elbow extensors 5/5. Real Time Operator strong. Right Lower Extremity: Hip flexors 5/5. Hip abductors 5/5. Knee flexors 4-/5. Knee extensors 4-/5. Left Lower Extremity: Hip flexors 5/5. Hip abductors 5/5. Knee flexors 4/5. Knee extensors 4/5. Ankle dorsiflexors 3-/5. Ankle plantarflexors NT. Bed Mobility/Transfers: Rolling independent Supine to sit independent Sit to supine independent Sit to stand independent with bilateral axillary crutches, R transtibial prosthesis, and L post op shoe Stand to sit independent with bilateral axillary crutches, R transtibial prosthesis, and L post op shoe Gait: Instructed patient with level surface ambulation of 300 feet requiring supervision for verbal cueing with weight bearing precaution using front-wheeled walker. Pain report in L foot at 4-5/10. 3-point gait pattern recommended. Stairs: Ascended and descended 6 x 4 inch steps and 4 x 6 inch steps while holding onto bilateral rails using recommended a weightbearing precaution with supervision assist, step to gait pattern. Balance: Static Sitting: Normal Dynamic Sitting: Normal Static Standing: Fair Dynamic Standing: Fair Special Tests: Mobility Limitations Standardized Measure [facility] AM-PAC 6 clicks Basic Mobility Inpatient Short Form: Raw Score: 24 CMS Score: 0% deficit Informed Consent/Education: Patient was instructed in purpose of PT consult and plan of care. Understands the importance of complying with java consultant-ordered WB precaution of heel weight bearing on the L LE with post-op shoe and bilateral axllary cruthces. Assessment: Patient was made independent with use of bilateral axillary crutches, R transtibial prosthesis, and L post-op shoe inside room and in hallway. PT to do 3x/week session in order to slowly progress WB status per java consultant's recommendation. May go home with PT once medically cleared for functional mobility progression. Patient presents with clinical signs and symptoms consistent with current/admitting diagnoses that have resulted to mobility limitations, gait instability, generalized weakness, and overall ADL decline as demonstrated by the following impairment level findings: 1. Decreased strength to L ankle major muscle groups 2. Impaired standing balance 3. Impaired activity tolerance 4. Limitation of joint range of motion in L ankle Impairments are contributing to the following functional limitations: 1. Difficulty with ambulation without assistive device 2. Increased completion time for mobility ADL performance 3. Increased risk for falls Patient is assessed as a 34669 low complexity based on the following: History: 37-year-old female with past medical history as indicated above Examination: As above Presentation: Stable Decision Makin low complexity Goals: Patient to demonstrate modified indepedent with use of bilateral axillary crutches, L post op shoe, and R transtibial prosthesis over all ground surfaces for 1000 feet without LOB nor report of pain while complying with WB recommmednation by java consultant. Plan of Care/Treatment Plan: 1x/day, 3 days/week x 1 week. Plan of care has been reviewed with the GRADUATE INTERN providing the service under Physical Therapy direction. Initiate Physical Therapy intervention for pain management as needed, strengthening, bed mobility, transfers, gait, stairs, balance training, and use of assistive device. DISCHARGE RECOMMENDATIONS: [] Home with no services [] [X] Home with services. Patient will benefit from home health PT services in order to progress mobility level using least restrictive assistive ambulatory device, assess home safety, identify additional equipment needs, and establish a functional maintenance program that will increase ability of patient to remain at home. [] Home with outpatient PT [] [] SNF for continued rehabilitation [] [] Laundry Bag Punch Operator Care [] [] SNF versus LTC based on ability to participate and progress [] TREATMENT CODE/TIME: 38371 x 20 minutes, 90552 x 11 minutes beginning at 10:55 AM. Thank you for the opportunity to participate in the care of this patient. Pallavi Rodas PT, DPT, CLT [facility] [place], [place]
[2022-12-05 10:59] VITALS: TEMP 38
[2022-12-05] MEDS: Acetaminophen 325 MG TAB PO ×2 (10:59→16:02)
[2022-12-05 11:27] LABS: ESR (LRH) 53 mm/hr
[2022-12-05 14:36] VITALS: BP 113/63; PULSE 77; RESP 16; TEMP 37.2; O2SAT 95
[2022-12-05] MEDS: Normal Saline Flush 10 ML SYR IVP (20:19)
[2022-12-05] MEDS: Normal Saline 500 ML 30 ML IV (21:45)
[2022-12-06 00:16] VITALS: BP 135/64; PULSE 71; RESP 16; TEMP 36; O2SAT 94
[2022-12-06] MEDS: Ketorolac 10 MG TAB PO ×2 (00:33→07:51)
[2022-12-06] MEDS: PIPERACILLIN/TAZO 3.375 GM in Normal Saline 50 ML IVPB ×2 (02:58→10:15)
[2022-12-06 07:10] LABS: Abs Immature Grans 0.02 10^3/uL (0.0-0.06); Absolute Basophil Count 0.01 10^3/uL (0.0-0.2); Absolute Eosinophil Count 0.24 10^3/uL (0.0-0.7); Absolute Monocyte Count 0.34 10^3/uL (0.1-0.8); Absolute Neutrophil Count 2.68 10^3/uL (1.2-6.7); Basophils % 0.2; Eosinophils % 5.9; HCT 35.4 % (36.0-46.0); HGB 11.7 g/dL (11.2-15.7); Immature Grans % 0.5; Lymphocytes % 19.6; MCH 30.3 pg (27.0-33.0); MCHC 33.1 % (32.0-36.0); MCV 92 fL (80-95); MPV 9.6 fL (8.0-11.0); Monocytes % 8.3; Neutrophils % 65.5; Platelet Count 182 10^3/uL (130-400); RBC 3.86 10^6/uL (3.93-5.22); RDW 13.2 % (11.7-14.6); RDW-SD 45.1 fL; WBC 4.09 10^3/uL (4.4-10.8)
[2022-12-06 07:48] VITALS: BP 114/73; PULSE 84; RESP 18; TEMP 38.4; O2SAT 96
[2022-12-06] MEDS: DULoxetine 30 MG CAP 60 MG PO (07:50)
[2022-12-06] MEDS: Sulfameth/Trimeth DS TAB 1 TAB PO (07:50)
[2022-12-06 07:51] VITALS: TEMP 38.4
[2022-12-06] MEDS: Acetaminophen 325 MG TAB PO (07:51)
[2022-12-06] MEDS: Gabapentin 800 MG TAB PO ×2 (07:52→12:07)
[2022-12-06 08:51] VITALS: TEMP 36.3
[2022-12-06] MEDS: Methadone Liquid 10 MG/ML 105 MG PO (08:54)
[2022-12-06 12:02] VITALS: TEMP 36.3
--- NOTE | 2022-12-06 13:12 | W.PM.PROGNOT ---
Date of Service Date of service: 12/06/22 Time of Service: 13:13 Assessment and Plan Assessment and plan (1) Abscess of left foot excluding toes: Status: Acute (2) Foreign body in foot, left: Status: Acute (3) Localized swelling of left lower extremity: Status: Acute (4) Cellulitis of left foot: Status: Acute (5) Pain in left foot: Status: Acute Assessment and plan: Patient was seen and evaluated bedside today. The dressings were removed. There is resolved erythema resolving edema with no tenderness to palpation noted to the left foot uriah-incisional leg no drainage no bogginess no crepitus infection seems to be resolving very well at this time. There is no residual abscess at this time. I reviewed labs and cultures today. Final cultures are pending for now we will continue Bactrim for Staph aureus we will continue Zosyn as well. Dressings were changed with xeroform gauze, 4 x 4, Kerlix, Elfego wrap. Patient is to continue to keep her left lower extremity elevated at all times. Remain NWB to the left foot with heel touch for transfers. Will await final cultures and COVID results prior to d/c Will continue Tylenol for fevers. Have requsted Medicine to see for fevers since her left foot cellulitis/ abscess is now resolved however fevers persist. Will continue to follow Subjective Subjective Interval history since last seen: Patient is seen bedside today. Resting comfortably. Offers no complains. Requesting to go home now. Denies feeling feverish or chills. Exam Extrem Other: Left lower extremity physical exam: Derm: 5 incision sites noted in total. resolved erythema and edema noted to the left foot there is no tenderness to palpation and no paresthesias reported to the dorsum of the left foot. Incision site medial aspect of the left first metatarsophalangeal joint is noted to be intact and healing well, sutures are intact without any signs of dehiscence there is no periwound erythema noted here. No bogginess no crepitus no fluctuance. Incision site dorsal aspect of the left interspace noted to be well coapted without any signs of dehiscence the sutures are in place, there is no erythema edema and tenderness to palpation noted here, no proximal streaking noted at this time no bogginess no crepitus no fluctuance no palpable abscess Incision site lateral aspect of the left fifth metatarsal base is noted to be healing very well with sutures in place without any signs of dehiscence no erythema mild edema no pain on palpation. Incision site just distal to the left ankle joint laterally is noted to be healing very well sutures are in place no signs of dehiscence no erythema mild edema no drainage no malodor noted. Incision site dorsal aspect of the left fourth metatarsal is noted to be healing very well and sutures are intact no signs of dehiscence no erythema no mild edema no drainage no malodor noted. Vascular: DP PT pulses are palpable, skin is warm to touch, no calf pain no chest pain. MSK there is less tenderness to palpation noted to the dorsal aspect of the left foot particularly around the midshaft of the 1-5 metatarsals. Neuro: Light touch sensation noted. To be intact. Objective Last Vital Signs Temp 97.3 F L 12/06/22 12:02 Pulse 84 12/06/22 07:48 Resp 18 12/06/22 07:48 BP 114/73 12/06/22 07:48 Pulse Ox 96 12/06/22 07:48 Laboratory Results - last 24 hr 12/06/22 06:17 WBC 4.09 L RBC 3.86 L Hgb 11.7 Hct 35.4 L MCV 92 MCH 30.3 MCHC 33.1 RDW 13.2 Plt Count 182 MPV 9.6 Immature Gran % 0.5 Neutrophils % 65.5 Lymphocytes % 19.6 Monocytes % 8.3 Eosinophils % 5.9 Basophils % 0.2 Nucleated RBC % 0.0 Absolute Neutrophils 2.68 Absolute Lymphocytes 0.80 L Absolute Monocytes 0.34 Absolute Eosinophils 0.24 Absolute Basophils 0.01 Time Spent with Patient Time Spent with Patient: 25-34 minutes Time was spent: preparing to see the patient(eg.review tests), obtaining and/or reviewing separately otained hiistory, ordering medications,tests, procedures, referring, communicating with other health healthcare management consultant, indepentently interpreting results, counseling the patient and care coordination
[2022-12-06 13:16] LABS: Source Nasopharynx
[2022-12-06 13:49] LABS: COVID-19 PCR POSITIVE (Negative)
--- NOTE | 2022-12-06 13:56 | PDOC.DSDIS_ITS ---
Date of service: 12/06/22 Time of Service: 14:04 Discharge Plan Disposition Patient Disposition: Home Condition: Improving Discharge Details Reason For Visit: abscess left foot Admit Date/Time: 12/03/22 17:18 Admit Provider: Cindi Patel Attending Provider: Cindi Patel Primary Care Provider: Ivonne Hampton Hospital Course Hospital Course: Patient was placed on IV antibiotics through out her hospital course. Patient underwent OR I&D on 12/02/22 (purulence and foreign body) and then repeat I&D on 12/04/22. Intra op cultures postive for s. aureus and strep. Patient currently and discharged on abx. During hospital course, patient was also febrile despite resolved cellulitis. She was tested positive for COVID and discharged with Paxlovid considering resolved cellulitis, abscess and pain. Patient to follow up in office on Thursday. She is to keep the dressings clean, dry and intact. To use the surgical shoe. Patient to remain NWB to the left foot. Stable for d/c. Home Meds and New Rx's Prescriptions: New amoxicillin-pot clavulanate [Augmentin] 500-125 mg tablet 1 tab PO BID Qty: 20 0RF sulfamethoxazole-trimethoprim [Bactrim DS] 800-160 mg tablet 1 tab PO BID Qty: 20 0RF Continued naloxone [Narcan] 4 mg/actuation spray,non-aerosol 4 mg intranasal Q2M PRN Patient Comments: Patient does not have supply at home Rx Instructions: spray 1 dose into ONE nostril; alternate nostrils w each dose until help arrives gabapentin 800 mg tablet 800 mg PO QID Patient Comments: TAKE ONE TABLET BY MOUTH FOUR TIMES A DAY methadone 10 mg/mL Concentrate 105 mg PO DAILY Rx Instructions: CONFIRMED DOSE WITH [facility] 08/20/21 125MG QAM duloxetine 30 mg capsule,delayed release(DR/EC) 60 mg PO DAILY methylphenidate HCl [Ritalin LA] 40 mg capsule,ER biphasic 50-50 40 mg PO DAILY Patient Comments: Take 1 capsule by mouth once a day furosemide 20 mg tablet 20 mg PO DAILY PRN PRN (Reason: Edema) Patient Comments: 1 tablet by mouth once a day as needed TAKE ONE TABLET BY MOUTH EVERY DAY as needed for edema Discharge Instructions Instructions: How To Wash Your Hands (DC), Abscess (GEN), COVID-19 (Coronavirus Disease 2019) (DC), COVID-19: Slow the Coronavirus Spread (DC), Face Coverings (Masks) and COVID-19 (DC) Stand Alone Forms: Nursing Discharge Form Referrals: Cindi Patel DPM [[facility] STAFF PHYSICIAN] - (Please call Thursday morning to make a follow up appointment) Activity:: Activity as Tolerated Equipment/Supplies:: Crutches Diet:: As Tolerated Discharge Orders Discharge Orders: Discharge Order (Routine); Ordered 12/06/22 Ordered By: Cindi Patel Discharge Data Discharge Date/Time-TO BE ENTERED AT DEPARTURE: 12/06/22 14:26 DS: Diagnosis Discharge Diagnosis (1) Abscess of left foot excluding toes: Start date: 12/02/22 Status: Resolved Asessment and Plan: Patient was placed on IV antibiotics through out her hospital course. Patient underwent OR I&D on 12/02/22 and then repeat I&D on 12/04/22. Intra op cultures postive for s. aureus and strep. Patient currently and discharged on abx. During hospital course, patient was also febrile despite resolved cellulitis. She was tested positive for COVID and discharged with Paxlovid considering resolved cellulitis, abscess and pain. Patient to follow up in office on Thursday. She is to keep the dressings clean, dry and intact. To use the surgical shoe. Patient to remain NWB to the left foot. Stable for d/c. (2) Foreign body in foot, left: Start date: 12/02/22 Status: Resolved (3) Localized swelling of left lower extremity: Status: Acute (4) Cellulitis of left foot: Status: Resolved (5) Pain in left foot: Status: Resolved
--- NOTE | 2022-12-06 16:12 | PDOC.CMDIS ---
Date of service: 12/06/22 Time of Service: 16:13 LACE Index Scoring Tool Questions: Length of Stay (in days): 3 Was the patient admitted via the E.D.?: Yes E.D. Visits: 1 Answers: Total Score: 7 Risk of Readmission: Low Risk Care Management Discharge Plan Reason for Hospitalization: foreign body in foot Discharge Plan: Evelina is discharged home via private vehicle with family. She will follow up with community providers and her discharge plan of care as instructed. No [facility] is indicated at the time of discharge. Patient/Family Education Needs: Review discharge instructions, limitations, medications and plan to follow up with community providers. Discuss ask me three and goals of self care.
--- NOTE | 2022-12-08 09:00 | PT.INDS ---
PT Notes Visit Reasons: abscess left foot Patient seen for evaluation only, then able to discharge home prior to further intervention. Please see initial evaluation for functional status and discharge recommendations.
== END 2022-12-06 14:26 | disposition home or self-care (01) | DRG 571 ==
LOC: ER 15:46 → MS 12-03 13:35 → DSU 12-11 14:12 → ER 12-11 14:12 → MS 12-11 14:15
PROVIDERS: Admitting Provider Podiatrist; Emergency Provider Emergency Medicine; PCP Nurse Practitioner Family; Visit Provider Podiatrist
PROC: 0J9R0ZZ Drainage of Left Foot Subcutaneous Tissue and Fascia, Open Approach (ICD-10-PCS; CPT 10061; principal; 2022-12-02 16:15)
PROC: 0JBR0ZZ Excision of Left Foot Subcutaneous Tissue and Fascia, Open Approach (ICD-10-PCS; CPT 11042; principal; 2022-12-04 12:00)
DX: L03.116 Cellulitis of left lower limb (principal); F11.20 Opioid dependence, uncomplicated; I42.9 Cardiomyopathy, unspecified; I45.2 Bifascicular block; L02.612 Cutaneous abscess of left foot; S91.342A Puncture wound with foreign body, left foot, initial encounter; X58.XXXA Exposure to other specified factors, initial encounter; Z79.899 Other long term (current) drug therapy; F41.9 Anxiety disorder, unspecified; G47.00 Insomnia, unspecified; F90.1 Attention-deficit hyperactivity disorder, predominantly hyperactive type; D63.8 Anemia in other chronic diseases classified elsewhere; B18.2 Chronic viral hepatitis C; E86.0 Dehydration; F17.210 Nicotine dependence, cigarettes, uncomplicated; R91.8 Other nonspecific abnormal finding of lung field; Z86.74 Personal history of sudden cardiac arrest; F10.10 Alcohol abuse, uncomplicated; F32.A Depression, unspecified; Z89.431 Acquired absence of right foot; I08.1 Rheumatic disorders of both mitral and tricuspid valves; F14.11 Cocaine abuse, in remission; F60.9 Personality disorder, unspecified; F43.10 Post-traumatic stress disorder, unspecified
CPT/HCPCS: 10061; 28192; 11042; 36415; 76000; 80048; 85027; 85652; 87077; 87635; 96365; 96366; 96368; 96376; 97161; 97530; 99285; 73630; 73700; 73720; 84703; 85025; 86140; 87070; 87075; 87186; 87205; G0378; J1100; J1885; J2001; J2250; J2405; J2543; J3010

== ENCOUNTER 2022-12-22 09:43 | Inpatient (IN) | payer MEDICAID, SELFPAY ==
--- NOTE | 2022-12-22 09:45 | DI.RAD_ITS ---
Exam(s) XR FOOT LT COMPLETE EXAM: XR FOOT LT COMPLETE CLINICAL HISTORY: left foot pain, recent surgery, Fall, R/O gas,. TECHNIQUE: 2D digital imaging was performed of the left foot. Three images were obtained. AP, obli que and lateral views were obtained. COMPARISON: CR XR FOOT LT COMPLETE from 12/02/2022 FINDINGS: BONES: No acute fracture is present. No bony destructive lesion is seen. JOINTS: No dislocation present. SOFT TISSUE: There is soft tissue swelling of the foot. IMPRESSION: No acute fracture or dislocation. DATA REPOSITORY: RADIATION DOSE DELIVERED:
[2022-12-22 09:47] VITALS: BP 140/69; PULSE 69; RESP 20; TEMP 36.6; O2SAT 99
--- OUTSIDE RECORDS SUMMARY | 2022-12-22 09:51 | XMS_ITS | Continuity of Care Document ---
Author Name Unknown Organization [facility] Address Unknown Care Team Providers Care [employer] Name Role Phone Dylan Luna Primary Care Physician Encounter Date(s): 04/13/22 - 04/13/22 [facility] [address], [place] [address] Encounter Diagnosis Edema(Discharge Diagnosis) - 04/13/22 Discharge Disposition: Home or Self Care Attending Physician: MIKA FELDMAN PA-C Admitting Physician: MIKA FELDMAN PA-C Allergies, Adverse Reactions, Alerts Substance Reaction Severity Status Wellbutrin Seizures Active Medications gabapentin 800 mg oral tablet 800 mg = 1 tab(s), Oral, TID, # 270 tab(s), 0 Refill(s) Start Date: 04/13/22 Status: Ordered methadone 115 mg, Oral, Daily, 0 Refill(s) Start Date: 04/13/22 Status: Ordered Vyvanse 60 mg oral capsule 60 mg = 1 cap(s), Oral, qAM, 0 Refill(s) Start Date: 04/13/22 Status: Ordered Mental Status 04/13/22 Orientation Assessment Oriented x 4 Results Laboratory List Name Date .Estimated Glomerular Filtration Rate 04/13/22 Auto Differential 04/13/22 CBC Auto Diff reflex Manual Diff 04/13/22 Comprehensive Metabolic Panel (CMP) Thyroid Stimulating Hormone 04/13/22 Most recent to oldest [Reference Range]: 1 AGAP 7 *NA* (04/13/22 3:06 PM) A/G Ratio 1.1 *NA* (04/13/22 3:06 PM) BUN/Creat Ratio 18 *NA* (04/13/22 3:06 PM) RBC [4.00-5.20 x10(6)/mcL] 4.57 x10(6)/m cL (04/13/22 3:06 PM) RDW [11.5-14.5 %] 16.2 % *HI* (04/13/22 3:06 PM) Sodium Level [136-145 mmol/L] 136 mmol/L (04/13/22 3:06 PM) Total Protein [6.4-8.2 gm/dL] 7.2 gm/dL (04/13/22 3:06 PM) TSH [0.360-3.740 mcIU/mL] 3.450 mcIU/mL (04/13/22 3:06 PM) AST [15-37 IU/L] 25 IU/L (04/13/22 3:06 PM) Bili Total [0.20-1.00 mg/dL] 0.21 mg/dL (04/13/22 3:06 PM) CO2 [21-32 mmol/L] 28 mmol/L (04/13/22 3:06 PM) Albumin Level [3.4-5.0 gm/dL] 3.7 gm/dL (04/13/22 3:06 PM) Alk Phos [48-129 unit/L] 86 unit/L (04/13/22 3:06 PM) ALT [13-61 IU/L] 46 IU/L (04/13/22 3:06 PM) Hct [36.0-46.0 %] 39.0 % (04/13/22 3:06 PM) Hgb [12.0-15.0 gm/dL] 12.4 gm/dL (04/13/22 3:06 PM) MCH [26.0-34.0 pg] 27.1 pg (04/13/22 3:06 PM) MCHC [31.0-37.0 gm/dL] 31.8 gm/dL (04/13/22 3:06 PM) MCV [80-100 fL] 85 fL (04/13/22 3:06 PM) MPV [9.2-12.7 fL] 9.5 fL (04/13/22 3:06 PM) Glucose Level [74-106 mg/dL] 95 mg/dL (04/13/22 3:06 PM) Platelet [150-350 x10(3)/mcL] 190 x10(3) /mcL (04/13/22 3:06 PM) Potassium Level [3.5-5.1 mmol/L] 4.0 mmo l/L (04/13/22 3:06 PM) WBC [4.5-11.0 x10(3)/mcL] 4.5 x10(3)/mcL (04/13/22 3:06 PM) BUN [7-18 mg/dL] 16 mg/dL (04/13/22 3:06 PM) Calcium Level [8.5-10.1 mg/dL] 8.6 mg/dL (04/13/22 3:06 PM) Chloride [98-107 mmol/L] 105 mmol/L (04/13/22 3:06 PM) eGFR AA >60 mL/min/1.73 m2 *NA* (04/13/22 3:06 PM) eGFR THIERNO >60 mL/min/1.73 m2 *NA* (04/13/22 3:06 PM) Neutrophil Absolute [1.50-7.80 x10(3)/mc L] 1.98 x10(3)/mcL (04/13/22 3:06 PM) Lymphocyte Absolute [1.10-4.80 x10(3)/mc L] 1.78 x10(3)/mcL (04/13/22 3:06 PM) Monocyte Absolute 0.38 x10(3)/mcL *NA* (04/13/22 3:06 PM) Eosinophil Absolute 0.29 x10(3)/mcL *NA* (04/13/22 3:06 PM) Basophil Absolute 0.01 x10(3)/mcL *NA* (04/13/22 3:06 PM) Imm Gran Absolute 0.02 /mcL *NA* (04/13/22 3:06 PM) NRBC % [0.0-0.2 %] 0.0 % (04/13/22 3:06 PM) Osmol Calculated 273 mOsm/kg *NA* (04/13/22 3:06 PM) Eosinophil Auto [1.0-4.0 %] 6.5 % *HI* (04/13/22 3:06 PM) Immature Granulocyte Auto 0 % *NA* (04/13/22 3:06 PM) Lymphocyte Auto [24.0-44.0 %] 39.9 % (04/13/22 3:06 PM) Monocyte Auto [2.0-11.0 %] 8.5 % (04/13/22 3:06 PM) Neutrophil Auto [31.0-76.0 %] 44.5 % (04/13/22 3:06 PM) Basophil Auto [0.0-2.0 %] 0.2 % (04/13/22 3:06 PM) Creatinine [0.6-1.3 mg/dL] 0.9 mg/dL (04/13/22 3:06 PM) Vital Signs Most recent to oldest [Reference Range]: 1 2 Temperature Oral [35.8-37.3 DegC] 37 Deg C (04/13/22 2:14 PM) Peripheral Pulse Rate [60-100 bpm] 110 b pm *HI* (04/13/22 3:57 PM) 72 bpm (04/13/22 2:14 PM) Respiratory Rate [14-20 br/min] 18 br/mi n (04/13/22 3:57 PM) 20 br/min (04/13/22 2:14 PM) Blood Pressure 164/100mmHg (04/13/22 3:57 PM) 132/71mmHg (04/13/22 2:14 PM) Social History Social History Type Response Smoking Status Current every day sm oker; Type: Cigarettes; Tobacco use per day: 10; entered on: 04/13/22 Sex Female Hospital Discharge Instructions Patient Education 04/13/2022 15:43:48 Edema Edema Edema is an abnormal buildup of fluids in the body tissues and under the skin. Swelling of the legs, feet, and ankles is a common symptom that becomes more likely as you get older. Swelling is also common in looser tissues, like around the eyes. When the affected area is squeezed, the fluid may move out of that spot and leave a dent for a few moments. This dent is called pitting edema. There are many possible causes of edema. Eating too much salt (sodium) and being on your feet or sitting for a long time can cause edema in your legs, feet, and ankles. Hot weather may make edema worse. Common causes of edema include: ??? Heart failure. ??? Liver or kidney disease. ??? Weak leg blood vessels. ??? Cancer. ??? An injury. ??? . ??? Medicines. ??? Being obese. ??? Low protein levels in the blood. Edema is usually painless. Your skin may look swollen or shiny. Follow these instructions at home: ??? Keep the affected body part raised (elevated) above the level of your heart when you are sitting or lying down. ??? Do not sit still or stand for long periods of time. ??? Do not wear tight clothing. Do not wear garters on your upper legs. ??? Exercise your legs to get your circulation going. This helps to move the fluid back into your blood vessels, and it may help the swelling go down. ??? Wear elastic bandages or support stockings to reduce swelling as told by your health care provider. ??? Eat a low-salt (low-sodium) diet to reduce fluid as told by your health care provider. ??? Depending on the cause of your swelling, you may need to limit how much fluid you drink (fluid restriction). ??? Take [id number] and prescription medicines only as told by your health care provider. Contact a health care provider if: ??? Your edema does not get better with treatment. ??? You have heart, liver, or kidney disease and have symptoms of edema. ??? You have sudden and unexplained weight gain. Get help right away if: ??? You develop shortness of breath or chest pain. ??? You cannot breathe when you lie down. ??? You develop pain, redness, or warmth in the swollen areas. ??? You have heart, liver, or kidney disease and suddenly get edema. ??? You have a fever and your symptoms suddenly get worse. Summary ??? Edema is an abnormal buildup of fluids in the body tissues and under the skin. ??? Eating too much salt (sodium) and being on your feet or sitting for a long time can cause edemain your legs, feet, and ankles. ??? Keep the affected body part raised (elevated) above the level of your heart when you are sitting or lying down. This information is not intended to replace advice given to you by your health care provider. Make sure you discuss any questions you have with your health care provider. Document Revised: 07/25/2021 Document Reviewed: 12/18/2020 [employer] Patient Education ?? 2021 [employer]. Care Team Care Team Personnel Name: Dylan Luna MD Position: Physician - Psychiatry Member Role: Primary Care Physician Address: Address: [address] [place] [address] Name: Shantal Rios LPN Position: ED Nurse/[employer] Member Role: ED Nurse Name: MIKA FELDMAN PA-C Position: Physician - ED Member Role: Ordering Physician Address: Address: [address] [place] [address] Care Team Related Persons Name: HANSEL JAQUEZ
--- NOTE | 2022-12-22 09:52 | ED.GENADUL_ITS ---
Discharge Plan Disposition Patient Disposition: Admit to [facility] Discharge Details Clinical Impression: Postop check, Cellulitis of left foot Admit Date/Time: 12/22/22 12:45 Admit Provider: Ray Khan Attending Provider: Ray Khan Primary Care Provider: Glenn Tinajero ED Provider: Jeannette Duffy Discharge Data Discharge Date/Time-TO BE ENTERED AT DEPARTURE: 12/22/22 14:31 Discharge Physician: Jeannette Duffy Medical Decision Making 37-year-old female presents to the ER with a chief complaint of left foot pain, erythema and drainage. She recently had foreign body removal to her left foot approximately a couple weeks ago here. She did miss one of her follow-up appointments for suture removal. She does have an area of incision to her left lateral foot that is purulent, foot does appear infected. She did finish her previously prescribed antibiotics a week ago. She reports fever yesterday. None currently. She also states that she has not been using crutches at home. She does have crutches at home. Other associated symptoms as she did fall yesterday, also reports walking through puddles with possible fresh water exposure. 0957: Podiatry paged Spoke with Dr. Patel with podiatry, she recommends labs and XR. Orders placed. Will send her images of foot. 1223: 4 of the incisions the sutures were removed please see physical exam. A total of [address]. 19 sutures removed. Patient is tolerating with some difficulty. She is requesting more pain meds let ordered to place on the lateral incision. #3 Steri-Strips placed to incisions to reinforce them. Wound was cleaned with chlorhexidine surgical scrub by parts technician staff Arsenio. We will plan to send patient home on antibiotics. Will consider clinda and Augmentin versus Bactrim which she was on previously for 7 days. She has received 1 g of Rocephin here in the emergency department. 1240: Dr. Banks podiatry at bedside for patient jayne she did remove the remainder of the 6 sutures to the left lateral incision wound culture was obtained by her. She recommends admission under hospitalist, MRI foot with contrast ESR CRP add on and wound culture. 1245: Spoke with Dr. Khan who is on for hospitalist regarding patient case in details he agrees to accept for admission. This text was generated using [employer] system, please disregard any oddities of phrase or misspellings. Medical Records Medical records reviewed: Yes I reviewed the patient's medical records. Lab Data Lab results reviewed: Yes I reviewed the patient's lab results. Labs: Laboratory Tests Range/Units 12/22/22 10:50 WBC (4.4-10.8) 10^3/uL 5.01 RBC (3.93-5.22) 10^6/uL 4.18 Hgb (11.2-15.7) g/dL 12.4 Hct (36.0-46.0) % 37.7 MCV (80-95) fL 90 MCH (27.0-33.0) pg 29.7 MCHC (32.0-36.0) % 32.9 RDW (11.7-14.6) % 14.2 Plt Count (130-400) 10^3/uL 255 MPV (8.0-11.0) fL 9.0 Immature Gran % 0.2 Neutrophils % 60.7 Lymphocytes % 25.9 Monocytes % 9.2 Eosinophils % 3.4 Basophils % 0.6 Nucleated RBC % (0.0-0.3) % 0.0 Absolute Neutrophils (1.2-6.7) 10^3/uL 3.04 Absolute Lymphocytes (1.2-3.4) 10^3/uL 1.30 Absolute Monocytes (0.1-0.8) 10^3/uL 0.46 Absolute Eosinophils (0.0-0.7) 10^3/uL 0.17 Absolute Basophils (0.0-0.2) 10^3/uL 0.03 VBG Lactate (0.6-1.4) mmol/L 1.0 Sodium (136-145) mmol/L 136 Potassium (3.5-5.1) mmol/L 4.0 Chloride (98-107) mmol/L 101 Carbon Dioxide (21.0-32.0) mmol/L 28.1 Anion Gap (3-11) mmol/L 6.9 BUN (7-18) mg/dL 11 Creatinine (0.55-1.02) mg/dL 0.8 Est GFR (CKD-EPI 2020) (mL/min/1.73m2) 96.66 Glucose (74-106) mg/dL 110 H Calcium (8.5-10.1) mg/dL 9.6 Magnesium (1.8-2.4) mg/dL 2.2 Total Bilirubin (0.2-1.0) mg/dL 0.3 AST (15-37) U/L 16 ALT (14-59) U/L 17 Alkaline Phosphatase (46-116) U/L 137 H Total Protein (6.4-8.2) g/dL 8.7 H Albumin (3.4-5.0) g/dL 3.7 HPI General Mode of arrival: ambulatory . Date/Time Provider Initiated Documentation: 12/22/22 09:52 . Limitations to Documentation: no limitations . Information obtained by: patient, RN notes reviewed and old records reviewed . Related Data Home Medications Medication Instructions Recorded Confirmed naloxone 4 mg/actuation nasal 4 mg intranasal Q2M PRN 05/29/20 12/22/22 spray (Narcan) gabapentin 800 mg tablet 800 mg PO QID 06/02/21 12/22/22 methadone 10 mg/mL oral concentrate 105 mg PO DAILY 06/02/21 12/22/22 furosemide 20 mg tablet 20 mg PO DAILY PRN PRN Edema 12/03/22 12/22/22 methylphenidate HCl 40 mg biphasic 40 mg PO DAILY 12/03/22 12/22/22 50-50 capsule,extended release (Ritalin LA) amoxicillin 500 mg-potassium 1 tab PO BID #20 tabs 12/06/22 12/22/22 clavulanate 125 mg tablet (Augmentin) sulfamethoxazole 800 1 tab PO BID #20 tabs 12/06/22 12/22/22 mg-trimethoprim 160 mg tablet (Bactrim DS) duloxetine 60 mg capsule,delayed 60 mg PO DAILY 12/22/22 12/22/22 release Previous Rx's Medication Instructions Recorded amoxicillin 500 mg-potassium 1 tab PO BID #20 tabs 12/06/22 clavulanate 125 mg tablet (Augmentin) sulfamethoxazole 800 1 tab PO BID #20 tabs 12/06/22 mg-trimethoprim 160 mg tablet (Bactrim DS) Allergies Allergy/AdvReac Type Severity Reaction Status Date / Time bupropion HCl AdvReac Intermediate Contraindic Verified 12/22/22 09:53 [From Wellbutrin SR] ated General CELESTE: 3 Review of Systems All systems reviewed & are unremarkable except as noted in HPI and below Constitutional Constitutional: Reports as per HPI and Reports fever(s) (yeaterday) Musculoskeletal Musculoskeletal: Reports as per HPI Integumentary/Breasts Skin/Breast: Reports as per HPI, Reports erythema (Left foot), Reports skin pain and Reports skin swelling PFS All Active Problems (Updated 12/23/22 @ 16:25 by Jeannette Duffy NP) Cellulitis of left foot (Acute) Postop check (Acute) DVT prophylaxis (Acute) Wound infection (Acute) Wound dehiscence (Acute) Cardiac asystole (Acute) Hepatitis C (Chronic) Mild tricuspid regurgitation (Acute) Anemia (Chronic) Localized swelling of left lower extremity (Acute) Cellulitis (Acute) Smoker (Acute) Viral illness (Acute) History of prior with IUGR (Acute 01/11/15) History of kidney injury (Acute 01/17/16) Acute January, History of drug abuse (Acute 01/17/16) In treatment at [facility], no longer on methadone as of 01/17/16. Family court is close to resolved - will end . She is expecting 1st daughter to come home. Depression (Acute 01/11/15) Chronic hepatitis C without hepatic coma (Chronic 01/11/15) Cardiomyopathy (Chronic 01/22/16) Anemia of chronic disease (Acute 01/17/16) ADHD, hyperactive-impulsive type (Chronic 05/14/16) Insomnia (Acute) DVT prophylaxis (Acute) Fever (Acute) Prepatellar bursitis of right knee (Acute) Anxiety (Chronic) Anemia (Chronic) Opioid dependence (Chronic) Mitral regurgitation (Chronic) Edema (Acute) Medical History Lack of intravenous access IV drug user Left posterior fascicular block (LPFB) RBBB Acute respiratory failure with hypoxia Fungemia PEGGY (acute kidney injury) Lactic acidosis Closed head injury Metabolic acidosis Hyperkalemia Cardiac arrest with successful resuscitation Pulmonary nodules Anemia Scalded skin syndrome Endocarditis Sepsis Bacteremia Intractable low back pain Hyponatremia Pneumonia Cellulitis of left hand Cellulitis of hand, right Alcohol abuse History of depression Hx of cocaine abuse Personality disorder Herpes, vulvar PTSD (post-traumatic stress disorder) ADHD Amputation of right foot Paresthesia of both hands COVID-19 virus infection Effusion, right knee Dehydration Subacute endocarditis (01/22/16) MSSA endocarditis January, examination or test, positive result Pleural effusion, bilateral (01/22/16) Bacterial vaginosis (05/24/13) Rx with Metronidazole cream given 04/19/15. HSV infection Hx of infant who one week after . ? HSV or H1N1 infection. Pt has been on prophylaxis with pregnancies. Depression difficulty bonding with 2nd child. child removed from her custody. was on Wellbutrin but had sz and not on meds at this time. has appt with counselor 03/2015 Surgical History section (11/24/12) PCD @ 35w. IUGR. [facility]. [id number] [facility] [place]. Pt arrived in labor and declined SUN. F. Jessica. Amputation 12/23/16;[facility]; RIGHT BELOW THE KNEE Family History Mother No problems noted. Father No problems noted. Brother No problems noted. Grandfather No problems noted. Grandfather No problems noted. Grandmother No problems noted. Grandmother No problems noted. Son No problems noted. Son No problems noted. Daughter No problems noted. Daughter No problems noted. Social History Smoking/Tobacco Use Status: Current every day Tobacco Type: cigarettes Smoking risk assessment performed?: Yes Alcohol Intake: former Drug use: Occasionally Substance use type: former substance user, marijuana, crack/cocaine and heroin Housing: house Do you feel safe at home: Yes Do you feel safe in your relationship?: Yes Additional Social history: pt states she is on methadone History History 2 4 Para 4 Hx # Term Pregnancies Multiple births Hx # Pregnancies Ectopic pregnancies AB induced Hx Number of Living Children 3 AB spontaneous Past Pregnancies Del. Date GA/Weeks # Preg Succ Route Wgt Sex Labor Lgth Anesth esia Location [facility] 12/28/20 25 Delivery Date: 12/28/20 Last Updated by: Roxanna Rocha LPN Patient transferred OB care to [facility] Exam Narrative Exam Narrative: Constitutional: Alert and oriented x3. Appears stated age. Normal body habitus. Head: Normocephalic, no trauma. Eyes: Pupils PERRL, Red reflex noted, EOM's intact. Eyelids symmetrical without lesions, discharge, or swelling. ENT: Bilateral TM's WNL, External ear normal to inspection, no mastoid TTP, swelling, or erythema, Nasal turbinates WNL, no nasal discharge. Normal dentition, Posterior pharynx WNL, no exudate. Poor dentition. Chest: RRR, Normal S1, S2, distal pulses intact. Resp: Lungs clear to auscultation bilaterally, no wheezes, rales, or rhonchi. Abdomen: Soft, non-distended, Normoactive bowel sounds all 4 quads. Musculoskeletal: Normal gait, 5/5 strength to all four extremities. Skin: See extremity diagram and assessment below. She does have a right below the knee amputation with a prosthetic in place. Neurologic: Cranial nerves II-XII intact. Alert and oriented x 3. Motor: No deficits noted. Sensory: Intact bilaterally all 4 extremities. Hematologic/Lymphatic: No ecchymosis, no lymphadenopathy. Extrem Left lower extremity: foot (Erythema noted surrounding multiple incisions with sutures in place. ) Details: abnormal to inspection, tenderness, warmth, edema and other (erythema extends dorsum of mid foot) Ankle/foot/toe images: 2 1. [address] simple interrupted sutures in place, with surrounding erythema and purulent drainage, partially approximated. 2. 5 simple interrupted sutures in place with surrounding erythema and mild purulent drainage, well approximated. 3. 6 simple interrupted sutures in place with surrounding erythema and purulent drainage, partially approximated 4. Large approximately 5 cm poorly approximated laceration with sutures in place #6 with purulent drainage/ 5. Erythema
[2022-12-22] MEDS: Lidocaine 4% Cream 5 GM TUBE TP (10:28)
[2022-12-22 10:56] LABS: Abs Immature Grans 0.01 10^3/uL (0.0-0.06); Absolute Basophil Count 0.03 10^3/uL (0.0-0.2); Absolute Eosinophil Count 0.17 10^3/uL (0.0-0.7); Absolute Monocyte Count 0.46 10^3/uL (0.1-0.8); Absolute Neutrophil Count 3.04 10^3/uL (1.2-6.7); Basophils % 0.6; Eosinophils % 3.4; HCT 37.7 % (36.0-46.0); HGB 12.4 g/dL (11.2-15.7); Immature Grans % 0.2; Lymphocytes % 25.9; MCH 29.7 pg (27.0-33.0); MCHC 32.9 % (32.0-36.0); MCV 90 fL (80-95); Monocytes % 9.2; Neutrophils % 60.7; Platelet Count 255 10^3/uL (130-400); RBC 4.18 10^6/uL (3.93-5.22); RDW 14.2 % (11.7-14.6); RDW-SD 47.2 fL; WBC 5.01 10^3/uL (4.4-10.8)
[2022-12-22 11:12] LABS: ALT 17 U/L (14-59); AST 16 U/L (15-37); Albumin 3.7 g/dL (3.4-5.0); Alkaline Phosphatase 137 U/L (46-116); Anion Gap 6.9 mmol/L (3-11); BUN 11 mg/dL (7-18); Bilirubin, Total 0.3 mg/dL (0.2-1.0); CO2 28.1 mmol/L (21.0-32.0); CREATININE 0.8 mg/dL (0.55-1.02); Calcium 9.6 mg/dL (8.5-10.1); Chloride 101 mmol/L (98-107); Estimated GFR 96.66 (mL/min/1.73m2); Glucose 110 mg/dL (74-106); Magnesium 2.2 mg/dL (1.8-2.4); Sodium 136 mmol/L (136-145); Total Protein 8.7 g/dL (6.4-8.2)
[2022-12-22] MEDS: Gabapentin 300 MG CAP 600 MG PO (11:14)
[2022-12-22] MEDS: cefTRIAXone 1 GM/50 ML BAG IVPB (11:23)
[2022-12-22] MEDS: Methylphenidate 10 MG TAB 20 MG PO (12:28)
[2022-12-22] MEDS: Lidocaine/Epinephri/Tetracaine Topical Gel 3 ML TP (12:28)
--- NOTE | 2022-12-22 12:38 | DI.MRI_ITS ---
Exam(s) MR LOWER EXTREMITY LT WO/W EXAM: MR LOWER EXTREMITY LT WO/W CLINICAL HISTORY: Left Foot cellulitis TECHNIQUE: Multiplanar multisequence MRI was performed without intravenous contrast. COMPARISON: MR MR LOWER EXTREMITY LT WO/W from 12/03/2022 FINDINGS: SKIN: No evidence of ulcer nor subcutaneous tract. There is subcutaneous edema mostly over the dorsa l aspect of the foot. BONES/JOINTS: No evidence of fracture nor bone contusion. No osteochondral defects. Talar dome appe ars unremarkable. No bone edema. There is no evidence of para-articular ganglion. OSTEOMYELITIS?: There is no significant bone edema. There is no abnormal intraosseous enhancement. There is no confluent hypointense intraosseous T1 signal on precontrast images. Basically there is n o evidence of osteomyelitis. PLANTAR FASCIA: Unremarkable. LIGAMENTS: No obvious tears evident. No tenosynovitis. MUSCULOTENDINOUS STRUCTURES: No tendon tears nor tenosynovitis evident. SOFT TISSUES: Dorsal soft tissue swelling-edema but no evidence of formed abscess. OTHER FINDINGS: None. IMPRESSION: 1. Subcutaneous edema over the dorsal aspect of the foot consistent with cellulitis. No evidence of distinct soft tissue abscess. 2. No evidence of osteomyelitis. DATA REPOSITORY:
[2022-12-22] MEDS: CLINDAMYCIN 600 MG/50 ML BAG 100 MG IVPB ×3 (13:20→23:49)
[2022-12-22 13:30] LABS: Lab Add On Test DONE
[2022-12-22 13:40] LABS: C-Reactive Protein 7.52 mg/dL (0.0-0.3)
[2022-12-22 13:58] LABS: Source Nasal/Nares
[2022-12-22 14:30] LABS: COVID-19 PCR Negative (Negative)
--- OUTSIDE RECORDS SUMMARY | 2022-12-22 14:35 | XMS_ITS | Continuity of Care Document ---
Author Name Unknown Organization [facility] Address [address] [place] [address] Encounter LTTL_SC FIN NBR [id number] Date(s): 12/04/22 - 12/04/[address] [id number] Discharge Disposition: Home or Self Care Attending Physician: Unavailable, Physician Admitting Physician: Unavailable, Physician Referring Physician: Unavailable, Physician Results Laboratory List Name Date Sedimentation Rate (ESR) 12/04/22 Most recent to oldest [Reference Range]: 1 ESR, Westergren [0-20 mm/hr] 53 mm/hr *HI* (12/04/22 4:20 PM)
[2022-12-22 14:52] VITALS: BP 126/80; PULSE 61; RESP 14; TEMP 35; O2SAT 100
[2022-12-22] MEDS: Gadoterate meglumine 20 ML SYRINGE IVP (15:58)
[2022-12-22] MEDS: Normal Saline Flush 10 ML SYR IVP (15:58)
[2022-12-22] MEDS: Gabapentin 800 MG TAB PO ×2 (17:09→20:25)
--- NOTE | 2022-12-22 17:13 | POCOE_ITS ---
Date of service: 12/22/22 Time of Service: 12:00 Assessment and Plan Assessment and plan (1) Localized swelling of left lower extremity: Status: Acute (2) Cellulitis of left foot: Status: Resolved (3) Pain in left foot: Status: Resolved (4) Edema: Status: Acute (5) Cellulitis: Status: Acute (6) Wound dehiscence: Status: Acute Assessment and plan: Patient was seen and evaluated bedside today. Sutures were removed today by the ER and myself. There is some erythema and edema mild purulence from the wound as well as tenderness to palpation. There is recurrence of cellulitis. X-rays were reviewed and noted to be without any periosteal reaction. MRI were reviewed today and there is no evidence for a distinct soft tissue abscess at this time. I recommend IV antibiotic with clindamycin at this time. We will monitor response to antibiotics. If there is no response I would recommend an OR I&D however will hold off for now as there is no palpable abscess. I recommend daily dressing changes by nursing with Dakin's soaked 4 x 4, Kerlix, Elfego wrap. I counseled the patient on maintaining her appointments in office. She was advised that there is infection to the foot at this time. She was advised there is risk for amputation if there is osteomyelitis. Patient understands and verbalizes understanding. Thank you for allowing me to participate in this patient's care History of Present Illness Narrative: Patient is here today for infection pain redness swelling and drainage to the left foot. She states that a few days ago her foot got wet in the rain. She states that she missed her last 2 appointments due to a scheduling error on her part. Patient is status post OR I&D and foreign body removal on 12/02/2022 and repeat OR I&D on 12/04/2022 during her last hospitalization. Patient was seen in office on 12/08/2022 and was noted to be with resolving to nearly resolved cellulitis and well coapted healing incision sites. Patient was lost to follow- up for her 1 week appointment. We rescheduled the patient for the next day however patient was not able to make it for her appointment due to some scheduling issues. She is here today with pain redness swelling and drainage to the left foot. She denies fevers or chills. She does have history of recent COVID which she states that spread to her mother as she eventually tested positive as well. Patient denies nausea vomiting chills fever diarrhea shortness of breath or cough at this time. She states she is embarrassed that she knows she should do better and has not. Review of Systems Constitutional Constitutional: Denies weakness ENT Ears, Nose, Mouth, and Throat: Denies disequilibrium Cardiovascular Cardiovascular: Reports pedal edema and Denies dyspnea Respiratory Respiratory: Denies dyspnea Integumentary/Breasts Skin/Breast: Reports skin ulcer Neurologic Neurologic: Denies localized weakness, Denies paresthesias, Denies disequilibrium and Denies weakness PFS All Active Problems (Updated 12/22/22 @ 17:42 by Cindi Patel DPM) Wound dehiscence (Acute) Edema (Acute) Mitral regurgitation (Chronic) Opioid dependence (Chronic) Anemia (Chronic) Anxiety (Chronic) Prepatellar bursitis of right knee (Acute) Fever (Acute) DVT prophylaxis (Acute) Insomnia (Acute) ADHD, hyperactive-impulsive type (Chronic 05/14/16) Anemia of chronic disease (Acute 01/17/16) Cardiomyopathy (Chronic 01/22/16) Chronic hepatitis C without hepatic coma (Chronic 01/11/15) Depression (Acute 01/11/15) History of drug abuse (Acute 01/17/16) In IP treatment at [place], no longer on methadone as of 01/17/16. Family court is close to resolved - will end . She is expecting 1st daughter to come home. History of kidney injury (Acute 01/17/16) Acute January, History of prior with IUGR (Acute 01/11/15) Viral illness (Acute) Smoker (Acute) Cellulitis (Acute) Localized swelling of left lower extremity (Acute) Anemia (Chronic) Mild tricuspid regurgitation (Acute) Hepatitis C (Chronic) Cardiac asystole (Acute) Medical History Lack of intravenous access IV drug user Left posterior fascicular block (LPFB) RBBB Acute respiratory failure with hypoxia Fungemia PEGGY (acute kidney injury) Lactic acidosis Closed head injury Metabolic acidosis Hyperkalemia Cardiac arrest with successful resuscitation Pulmonary nodules Anemia Scalded skin syndrome Endocarditis Sepsis Bacteremia Intractable low back pain Hyponatremia Pneumonia Cellulitis of left hand Cellulitis of hand, right Alcohol abuse History of depression Hx of cocaine abuse Personality disorder Herpes, vulvar PTSD (post-traumatic stress disorder) ADHD Amputation of right foot Paresthesia of both hands COVID-19 virus infection Effusion, right knee Dehydration Subacute endocarditis (01/22/16) MSSA endocarditis January, examination or test, positive result Pleural effusion, bilateral (01/22/16) Bacterial vaginosis (05/24/13) Rx with Metronidazole cream given 04/19/15. HSV infection Hx of who one week after . ? HSV or H1N1 infection. Pt has been on prophylaxis with pregnancies. Depression difficulty bonding with 2nd child. child removed from her custody. was on Wellbutrin but had sz and not on meds at this time. has appt with counselor 03/2015 Surgical History section (11/24/12) PCD @ 35w. IUGR. NRFH. [id number]. [facility]. 03/26/15 RCD. Pt arrived in labor and declined SUN. [facility]. Amputation 12/23/16;[facility]; RIGHT BELOW THE KNEE Family History Mother No problems noted. Father No problems noted. Brother No problems noted. Grandfather No problems noted. Grandfather No problems noted. Grandmother No problems noted. Grandmother No problems noted. Son No problems noted. Son No problems noted. Daughter No problems noted. Daughter No problems noted. Social History Smoking/Tobacco Use Status: Current every day Tobacco Type: cigarettes Smoking risk assessment performed?: Yes Alcohol Intake: former Drug use: Occasionally Substance use type: former substance user, marijuana, crack/cocaine and heroin Housing: house Do you feel safe at home: Yes Do you feel safe in your relationship?: Yes Additional Social history: pt states she is on methadone History History 2 4 Para 4 Hx # Term Pregnancies Multiple births Hx # Pregnancies Ectopic pregnancies AB induced Hx Number of Living Children 3 AB spontaneous Past Pregnancies Del. Date GA/Weeks # Preg Succ Route Wgt Sex Labor Lgth Anesth esia Location [facility] 12/28/20 25 Delivery Date: 12/28/20 Last Updated by: Roxanna Rocha LPN Patient transferred OB care to [facility] Exam Extrem Other: Left lower extremity physical exam: Derm: 5 incision sites noted in total. Recurrence of erythema and edema noted to the left foot there is tenderness to palpation and no paresthesias reported to the dorsum of the left foot. Incision site medial aspect of the left first metatarsophalangeal joint is noted to be with slight dehiscence there is periwound erythema noted here. No bogginess no crepitus no fluctuance. No isaac drainage here Incision site dorsal aspect of the left first interspace noted to be with mild dehiscence dehiscence there is erythema edema and tenderness to palpation noted here, no proximal streaking noted at this time no bogginess no crepitus no fluctuance no palpable abscess Incision site lateral aspect of the left fifth metatarsal base is noted to be with dehiscence there is erythema edema, there is drainage noted pain on palpation., No crepitus no bogginess no fluctuance no palpable abscess Incision site just distal to the left ankle joint laterally is noted to be healing very well sutures are in place no signs of dehiscence no erythema mild edema no drainage no malodor noted. Incision site dorsal aspect of the left fourth metatarsal is noted to be with mild dehiscence there is erythema mild edema no drainage no malodor noted. Overall, several of the incision sites are with dehiscence, mild purulence no isaac abscess palpable at this time no crepitus no bogginess no proximal streaking however there is erythema edema and pain. Vascular: DP PT pulses are palpable, skin is warm to touch, no calf pain no chest pain. MSK there is less tenderness to palpation noted to the dorsal aspect of the left foot particularly around the midshaft of the 1-5 metatarsals. Neuro: Light touch sensation noted. To be intact. Results Last Vital Signs Temp 95 F L 12/22/22 14:52 Pulse 61 12/22/22 14:52 Resp 14 12/22/22 14:52 BP 126/80 12/22/22 14:52 Pulse Ox 100 12/22/22 14:52 Labs 12/22/22 10:50 12/22/22 10:50 Labs: Laboratory Results - last 24 hr 12/22/22 12/22/22 10:50 13:41 WBC 5.01 RBC 4.18 Hgb 12.4 Hct 37.7 MCV 90 MCH 29.7 MCHC 32.9 RDW 14.2 Plt Count 255 MPV 9.0 Immature Gran % 0.2 Neutrophils % 60.7 Lymphocytes % 25.9 Monocytes % 9.2 Eosinophils % 3.4 Basophils % 0.6 Nucleated RBC % 0.0 Absolute Neutrophils 3.04 Absolute Lymphocytes 1.30 Absolute Monocytes 0.46 Absolute Eosinophils 0.17 Absolute Basophils 0.03 VBG Lactate 1.0 Sodium 136 Potassium 4.0 Chloride 101 Carbon Dioxide 28.1 Anion Gap 6.9 BUN 11 Creatinine 0.8 Est GFR (CKD-EPI 2020) 96.66 Glucose 110 H Calcium 9.6 Magnesium 2.2 Total Bilirubin 0.3 AST 16 ALT 17 Alkaline Phosphatase 137 H C-Reactive Protein 7.52 H Total Protein 8.7 H Albumin 3.7 COVID-19 Source Nasal/Nares SARS-CoV-2 (PCR) Negative Add-On Test Request DONE Imaging Imaging Studies: Patient Name: Denisse Mcdermott Unit #: [id number] Loc: ER Ordering Provider: Jeannette Duffy NP Status: REG ER Primary Care Provider: Glenn Tinajero Date of Exam: 12/22/22 Sex: F Admission Date: 12/22/22 : 1985 Age: 37 Exam(s) XR FOOT LT COMPLETE EXAM: XR FOOT LT COMPLETE CLINICAL HISTORY: left foot pain, recent surgery, Fall, R/O gas,. TECHNIQUE: 2D digital imaging was performed of the left foot. Three images were obtained. AP, oblique and lateral views were obtained. COMPARISON: CR XR FOOT LT COMPLETE from 12/02/2022 FINDINGS: BONES: No acute fracture is present. No bony destructive lesion is seen. JOINTS: No dislocation present. SOFT TISSUE: There is soft tissue swelling of the foot. IMPRESSION: No acute fracture or dislocation. Patient Name: Denisse Mcdermott Unit #: [id number] Loc: [place] Ordering Provider: Jeannette Duffy [employer] Status: ADM IN Primary Care Provider: Glenn Tinajero Date of Exam: 12/22/22 Sex: F Admission Date: 12/22/22 : 1985 Age: 37 Exam(s) MR LOWER EXTREMITY LT WO/W EXAM: MR LOWER EXTREMITY LT WO/W CLINICAL HISTORY: Left Foot cellulitis TECHNIQUE: Multiplanar multisequence MRI was performed without intravenous contrast. COMPARISON: MR MR LOWER EXTREMITY LT WO/W from 12/03/2022 FINDINGS: SKIN: No evidence of ulcer nor subcutaneous tract. There is subcutaneous edema mostly over the dorsal aspect of the foot. BONES/JOINTS: No evidence of fracture nor bone contusion. No osteochondral defects. Talar dome appears unremarkable. No bone edema. There is no evidence of para-articular ganglion. OSTEOMYELITIS?: There is no significant bone edema. There is no abnormal intraosseous enhancement. There is no confluent hypointense intraosseous T1 signal on precontrast images. Basically there is no evidence of osteomyelitis. PLANTAR FASCIA: Unremarkable. LIGAMENTS: No obvious tears evident. No tenosynovitis. MUSCULOTENDINOUS STRUCTURES: No tendon tears nor tenosynovitis evident. SOFT TISSUES: Dorsal soft tissue swelling-edema but no evidence of formed abscess. OTHER FINDINGS: None. IMPRESSION: 1. Subcutaneous edema over the dorsal aspect of the foot consistent with cellulitis. No evidence of distinct soft tissue abscess. 2. No evidence of osteomyelitis.
--- NOTE | 2022-12-22 17:22 | DI.VRAD_ITS ---
PROCEDURE INFORMATION: Exam: MR Left Lower Extremity Other Than Joint Without and With Contrast; Foot Exam date and time: 12/22/2022 3:55 PM Age: 37 years old Clinical indication: Pain; Foot; Left; Prior surgery; Surgery date: <1 month; Surgery type: Foreign body removal TECHNIQUE: Imaging protocol: Magnetic resonance imaging of the left lower extremity without and with contrast. Exam focused on the foot. Contrast material: DOTAREM; Contrast volume: 15 ml; Contrast route: INTRAVENOUS (IV); COMPARISON: 1. Left foot complete 12/22/2022 2. MR LOWER EXTREMITY LT WO/W 12/03/2022 3:05 PM FINDINGS: Bones/joints: Unremarkable. No bone abnormalities. Articular cartilage is normal. No joint effusion. There is no pathologic infiltration of the bone marrow signal. LIGAMENTS: Lisfranc ligament: Unremarkable. No evidence of tear. TENDONS: Flexor tendons of foot: Unremarkable. No evidence of tear. Tibialis posterior tendon: Unremarkable as visualized. Peroneal tendons: Unremarkable as visualized. Extensor tendons of foot: Unremarkable. No evidence of tear. Tibialis anterior tendon: Unremarkable as visualized. Tarsal canal (Sinus tarsi): Unremarkable. Tarsal tunnel: Unremarkable. Soft tissues: Decreased edema throughout the dorsum of the foot. The small fluid collection deep to a dorsal skin wound is resolved and the wound is now coapted. Plantar fascia: Unremarkable as visualized. IMPRESSION: Decreased dorsal foot edema. There has been interval healing of the previously described dorsal wound. Dictated and Authenticated by: Kai Sanz MD. Ordering:LULÚ Machado MD
--- NOTE | 2022-12-22 19:00 | HPE_ITS ---
Date of service: 12/22/22 Time of Service: 17:00 Assessment and Plan Assessment and plan (1) Wound infection: Status: Acute Assessment and plan: Erythema, purulent discharge and pain to area of foot where foregin body was removed 12/[address] were still in place as patient did not make her podiatry appointments out pt; these were removed in the ED Xray and MRI done with no abscess noted IV Clindamycin started If no improvement Podiatry will take her to OR for wash out Podiatry recommends daily dsg changes by nursing with Dakin's soaked 4 x 4, Kerlix, Elfego wrap. (2) Wound dehiscence: Status: Acute Assessment and plan: As above (3) Hepatitis C: Status: Chronic Assessment and plan: Prior IVDA (4) Anxiety: Status: Chronic (5) DVT prophylaxis: Status: Acute Assessment and plan: Enoxaparin (6) Discharge planning issues: Status: Resolved Assessment and plan: Home when stable Non compliant with fu visits - has been told by podiatry she could have an amputation if she does not comply with medical instructions History of Present Illness History of Present Illness Chief Complaint: Painful left foot with drainage and redness Narrative: This is a 37-year-old female patient with past medical history of foreign body removal of left foot on 12/02 [place] and returned to OR on 12/04, was discharged to home and doing well. She followed up with podiatry once and did not keep the next two appointments and did not have sutures removed. Today she presented to the [facility] ED for evaluation of left foot pain, erythema and drainage, she states her foot got wet in the rain. She reported she did finish her previously prescribed antibiotics a week ago. She reported she had a subjective fever yesterday. None in ED. She also stated that she has not been using crutches at home, although she has crutches to use, and she fell yesterday. Patient does have an area of incision to her left lateral foot that is purulent, foot does appear infected. She was seen by podiatry in ED. Patient is admitted to the medical floor for IV abx and wound care. Patient is a full code. Review of Systems All systems reviewed & are unremarkable except as noted in HPI and below PFSH All Active Problems (Updated 12/22/22 @ 19:29 by Bere Doherty NP) DVT prophylaxis (Acute) Wound infection (Acute) Wound dehiscence (Acute) Cardiac asystole (Acute) Hepatitis C (Chronic) Mild tricuspid regurgitation (Acute) Anemia (Chronic) Localized swelling of left lower extremity (Acute) Cellulitis (Acute) Smoker (Acute) Viral illness (Acute) History of prior with IUGR (Acute 01/11/15) History of kidney injury (Acute 01/17/16) Acute January, History of drug abuse (Acute 01/17/16) In IP treatment at [place], no longer on methadone as of 01/17/16. Family court is close to resolved - will end . She is expecting 1st daughter to come home. Depression (Acute 01/11/15) Chronic hepatitis C without hepatic coma (Chronic 01/11/15) Cardiomyopathy (Chronic 01/22/16) Anemia of chronic disease (Acute 01/17/16) ADHD, hyperactive-impulsive type (Chronic 05/14/16) Insomnia (Acute) DVT prophylaxis (Acute) Fever (Acute) Prepatellar bursitis of right knee (Acute) Anxiety (Chronic) Anemia (Chronic) Opioid dependence (Chronic) Mitral regurgitation (Chronic) Edema (Acute) Medical History Lack of intravenous access IV drug user Left posterior fascicular block (LPFB) RBBB Acute respiratory failure with hypoxia Fungemia PEGGY (acute kidney injury) Lactic acidosis Closed head injury Metabolic acidosis Hyperkalemia Cardiac arrest with successful resuscitation Pulmonary nodules Anemia Scalded skin syndrome Endocarditis Sepsis Bacteremia Intractable low back pain Hyponatremia Pneumonia Cellulitis of left hand Cellulitis of hand, right Alcohol abuse History of depression Hx of cocaine abuse Personality disorder Herpes, vulvar PTSD (post-traumatic stress disorder) ADHD Amputation of right foot Paresthesia of both hands COVID-19 virus infection Effusion, right knee Dehydration Subacute endocarditis (01/22/16) MSSA endocarditis January, examination or test, positive result Pleural effusion, bilateral (01/22/16) Bacterial vaginosis (05/24/13) Rx with Metronidazole cream given 04/19/15. HSV infection Hx of infant who one week after . ? HSV or H1N1 infection. Pt has been on prophylaxis with pregnancies. Depression difficulty bonding with 2nd child. child removed from her custody. was on Wellbutrin but had sz and not on meds at this time. has appt with counselor 03/2015 Surgical History section (11/24/12) PCD @ 35w. IUGR. NRFH. [id number]. [facility] [place]. 03/26/15 RCD. Pt arrived in labor and declined SUN. [facility]. Amputation 12/23/16;[facility]; RIGHT BELOW THE KNEE Family History Mother No problems noted. Father No problems noted. Brother No problems noted. Grandfather No problems noted. Grandfather No problems noted. Grandmother No problems noted. Grandmother No problems noted. Son No problems noted. Son No problems noted. Daughter No problems noted. Daughter No problems noted. Social History Smoking/Tobacco Use Status: Current every day Tobacco Type: cigarettes Smoking risk assessment performed?: Yes Alcohol Intake: former Drug use: Occasionally Substance use type: former substance user, marijuana, crack/cocaine and heroin Housing: house Do you feel safe at home: Yes Do you feel safe in your relationship?: Yes Additional Social history: pt states she is on methadone History History 2 4 Para 4 Hx # Term Pregnancies Multiple births Hx # Pregnancies Ectopic pregnancies AB induced Hx Number of Living Children 3 AB spontaneous Past Pregnancies Del. Date GA/Weeks # Preg Succ Route Wgt Sex Labor Lgth Anesth esia Location [facility] 12/28/20 25 Delivery Date: 12/28/20 Last Updated by: Roxanna Rocha LPN [facility] Meds Allergies and Home Medications Allergies Allergy/AdvReac Type Severity Reaction Status Date / Time bupropion HCl AdvReac Intermediate Contraindic Verified 12/22/22 09:53 [From Wellbutrin SR] ated Home Medications Medication Instructions Recorded Confirmed Type naloxone 4 mg/actuation nasal 4 mg intranasal Q2M PRN 05/29/20 12/22/22 History spray (Narcan) gabapentin 800 mg tablet 800 mg PO QID 06/02/21 12/22/22 History methadone 10 mg/mL oral concentrate 105 mg PO DAILY 06/02/21 12/22/22 History furosemide 20 mg tablet 20 mg PO DAILY PRN PRN Edema 12/03/22 12/22/22 History methylphenidate HCl 40 mg biphasic 40 mg PO DAILY 12/03/22 12/22/22 History 50-50 capsule,extended release (Ritalin LA) amoxicillin 500 mg-potassium 1 tab PO BID #20 tabs 12/06/22 12/22/22 Rx clavulanate 125 mg tablet (Augmentin) sulfamethoxazole 800 1 tab PO BID #20 tabs 12/06/22 12/22/22 Rx mg-trimethoprim 160 mg tablet (Bactrim DS) duloxetine 60 mg capsule,delayed 60 mg PO DAILY 12/22/22 12/22/22 History release Exam Narrative Exam Narrative: Constitutional: Alert and oriented x3. Appears stated age. Normal body habitus. Head: Normocephalic, no trauma. Eyes: Pupils PERRL, Red reflex noted, EOM's intact. Eyelids symmetrical without lesions, discharge, or swelling. ENT: Bilateral TM's WNL, External ear normal to inspection, no mastoid TTP, swelling, or erythema, Nasal turbinates WNL, no nasal discharge. Normal dentition, Posterior pharynx WNL, no exudate. Poor dentition. Chest: RRR, Normal S1, S2, distal pulses intact. Resp: Lungs clear to auscultation bilaterally, no wheezes, rales, or rhonchi. Abdomen: Soft, non-distended, Normoactive bowel sounds all 4 quads. Musculoskeletal: Normal gait, 5/5 strength to all four extremities. Skin: See extremity diagram and assessment below. She does have a right below the knee amputation with a prosthetic in place. Neurologic: Cranial nerves II-XII intact. Alert and oriented x 3. Motor: No deficits noted. Sensory: Intact bilaterally all 4 extremities. Hematologic/Lymphatic: No ecchymosis, no lymphadenopathy. Extrem Left lower extremity: foot (Erythema noted surrounding multiple incisions with sutures in place. ) Details: abnormal to inspection, tenderness, warmth, edema and other (erythema extends dorsum of mid foot) Results Labs 12/22/22 10:50 12/22/22 10:50 Labs: Laboratory Results - last 24 hr 12/22/22 12/22/22 10:50 13:41 WBC 5.01 RBC 4.18 Hgb 12.4 Hct 37.7 MCV 90 MCH 29.7 MCHC 32.9 RDW 14.2 Plt Count 255 MPV 9.0 Immature Gran % 0.2 Neutrophils % 60.7 Lymphocytes % 25.9 Monocytes % 9.2 Eosinophils % 3.4 Basophils % 0.6 Nucleated RBC % 0.0 Absolute Neutrophils 3.04 Absolute Lymphocytes 1.30 Absolute Monocytes 0.46 Absolute Eosinophils 0.17 Absolute Basophils 0.03 VBG Lactate 1.0 Sodium 136 Potassium 4.0 Chloride 101 Carbon Dioxide 28.1 Anion Gap 6.9 BUN 11 Creatinine 0.8 Est GFR (CKD-EPI 2020) 96.66 Glucose 110 H Calcium 9.6 Magnesium 2.2 Total Bilirubin 0.3 AST 16 ALT 17 Alkaline Phosphatase 137 H C-Reactive Protein 7.52 H Total Protein 8.7 H Albumin 3.7 COVID-19 Source Nasal/Nares SARS-CoV-2 (PCR) Negative Add-On Test Request DONE Last Vital Signs Temp 35 C L 12/22/22 14:52 Pulse 61 12/22/22 14:52 Resp 14 12/22/22 14:52 BP 126/80 12/22/22 14:52 Pulse Ox 100 12/22/22 14:52 Time Spent Time spent with Patient: 55-74 minutes Time was spent: preparing to see the patient(eg.review tests), obtaining and/or reviewing separately otained hiistory, ordering medications,tests, procedures, referring, communicating with other health physician locums urgent care, indepentently interpreting results, counseling the patient and care coordination
[2022-12-22] MEDS: Enoxaparin 40 MG/0.4 ML SYR SC (20:25)
[2022-12-23 02:45] VITALS: BP 129/75; PULSE 68; RESP 18; TEMP 36.6; O2SAT 98
[2022-12-23] MEDS: Acetaminophen 325 MG TAB PO ×2 (02:52→08:01)
[2022-12-23] MEDS: CLINDAMYCIN 600 MG/50 ML BAG 100 MG IVPB ×4 (06:22→23:29)
[2022-12-23] MEDS: Normal Saline Flush 10 ML SYR IVP ×2 (06:26→12:31)
[2022-12-23 07:23] VITALS: BP 114/71; PULSE 76; RESP 22; TEMP 36.4; O2SAT 98
[2022-12-23 07:44] LABS: Abs Immature Grans 0.01 10^3/uL (0.0-0.06); Absolute Basophil Count 0.02 10^3/uL (0.0-0.2); Absolute Eosinophil Count 0.23 10^3/uL (0.0-0.7); Absolute Lymphocyte Count 1.07 10^3/uL (1.2-3.4); Absolute Monocyte Count 0.25 10^3/uL (0.1-0.8); Absolute Neutrophil Count 2.18 10^3/uL (1.2-6.7); Basophils % 0.5; Eosinophils % 6.1; HCT 37.8 % (36.0-46.0); HGB 12.2 g/dL (11.2-15.7); Immature Grans % 0.3; Lymphocytes % 28.5; MCH 29.3 pg (27.0-33.0); MCHC 32.3 % (32.0-36.0); MCV 91 fL (80-95); MPV 9.6 fL (8.0-11.0); Monocytes % 6.6; Platelet Count 210 10^3/uL (130-400); RBC 4.16 10^6/uL (3.93-5.22); RDW-SD 47.4 fL; WBC 3.76 10^3/uL (4.4-10.8)
[2022-12-23] MEDS: Gabapentin 800 MG TAB PO ×4 (08:01→19:55)
[2022-12-23] MEDS: DULoxetine 30 MG CAP 60 MG PO (08:01)
[2022-12-23 08:02] LABS: Anion Gap 6.6 mmol/L (3-11); BUN 12 mg/dL (7-18); CO2 27.4 mmol/L (21.0-32.0); CREATININE 0.7 mg/dL (0.55-1.02); Calcium 9.1 mg/dL (8.5-10.1); Chloride 101 mmol/L (98-107); Estimated GFR 113.46 (mL/min/1.73m2); Glucose 96 mg/dL (74-106); Magnesium 1.9 mg/dL (1.8-2.4); Potassium 4.2 mmol/L (3.5-5.1); Sodium 135 mmol/L (136-145)
[2022-12-23] MEDS: Methadone Liquid 10 MG/ML 105 MG PO (08:05)
--- NOTE | 2022-12-23 10:14 | PDOC.CMIN ---
Date of service: 12/23/22 Time of Service: 10:14 Care Management Initial Assmt Initial Assessment REASON FOR HOSPITALIZATION:: Cellulitis and abscess of foot PREVIOUS FUNCTIONAL STATUS/SOCIAL/FAMILY SUPPORTS:: Denisse lives with her mother and 2 children in [facility]. She is disabled but independent with ADLs and self care. Denisse is attached to a [employer] maintenance program and takes suboxone daily. She has a wheelchair, crutches and tub/shower seat. ADVANCE DIRECTIVES:: none on file Has patient been provided with info about the portal/API?: Yes Did the patient sign up for the portal?: No CODE STATUS:: Full Code INSURANCE COVERAGE / FINANCIAL ISSUES:: Medicaid CURRENT HOME/COMMUNITY SERVICES/EQUIPMENT:: prosthesis, wheelchair, crutches, tub/shower chair, [employer] maintenance program. PRIMARY CARE PHYSICIAN:: Ivonne Hampton POTENTIAL DISCHARGE NEEDS:: follow up with PCP, Podiatry and plan of care PATIENT/FAMILY EDUCATION NEEDS:: Review of discharge instructions. limitations, activity, follow up plan, discuss Ask Me Three TRANSPORTATION:: via private vehicle with friend/family PLAN:: Denisse will likely be discharged home with new services home health services for dressing changes when medically cleared. She will follow up with her community providers and plan of care and transport with a friend or family. CM will follow and continue to support discharge planning needs. PFSH All Active Problems (Updated 12/22/22 @ 19:29 by Bere Doherty NP) DVT prophylaxis (Acute) Wound infection (Acute) Wound dehiscence (Acute) Cardiac asystole (Acute) Hepatitis C (Chronic) Mild tricuspid regurgitation (Acute) Anemia (Chronic) Localized swelling of left lower extremity (Acute) Cellulitis (Acute) Smoker (Acute) Viral illness (Acute) History of prior with IUGR (Acute 01/11/15) History of kidney injury (Acute 01/17/16) Acute January, History of drug abuse (Acute 01/17/16) In IP treatment at [facility], no longer on methadone as of 01/17/16. Family court is close to resolved - will end . She is expecting 1st daughter to come home. Depression (Acute 01/11/15) Chronic hepatitis C without hepatic coma (Chronic 01/11/15) Cardiomyopathy (Chronic 01/22/16) Anemia of chronic disease (Acute 01/17/16) ADHD, hyperactive-impulsive type (Chronic 05/14/16) Insomnia (Acute) DVT prophylaxis (Acute) Fever (Acute) Prepatellar bursitis of right knee (Acute) Anxiety (Chronic) Anemia (Chronic) Opioid dependence (Chronic) Mitral regurgitation (Chronic) Edema (Acute) Medical History Lack of intravenous access IV drug user Left posterior fascicular block (LPFB) RBBB Acute respiratory failure with hypoxia Fungemia PEGGY (acute kidney injury) Lactic acidosis Closed head injury Metabolic acidosis Hyperkalemia Cardiac arrest with successful resuscitation Pulmonary nodules Anemia Scalded skin syndrome Endocarditis Sepsis Bacteremia Intractable low back pain Hyponatremia Pneumonia Cellulitis of left hand Cellulitis of hand, right Alcohol abuse History of depression Hx of cocaine abuse Personality disorder Herpes, vulvar PTSD (post-traumatic stress disorder) ADHD Amputation of right foot Paresthesia of both hands COVID-19 virus infection Effusion, right knee Dehydration Subacute endocarditis (01/22/16) MSSA endocarditis January, examination or test, positive result Pleural effusion, bilateral (01/22/16) Bacterial vaginosis (05/24/13) Rx with Metronidazole cream given 04/19/15. HSV infection Hx of infant who one week after . ? HSV or H1N1 infection. Pt has been on prophylaxis with pregnancies. Depression difficulty bonding with 2nd child. child removed from her custody. was on Wellbutrin but had sz and not on meds at this time. has appt with counselor 03/2015 Surgical History section (11/24/12) PCD @ 35w. [facility] [id number]. [facility]. 03/26/15 RCD. Pt arrived in labor and declined SUN. F. Jessica. Amputation 12/23/16;[facility]; RIGHT BELOW THE KNEE Family History Mother No problems noted. Father No problems noted. Brother No problems noted. Grandfather No problems noted. Grandfather No problems noted. Grandmother No problems noted. Grandmother No problems noted. Son No problems noted. Son No problems noted. Daughter No problems noted. Daughter No problems noted. Social History Smoking/Tobacco Use Status: Current every day Tobacco Type: cigarettes Smoking risk assessment performed?: Yes Alcohol Intake: former Drug use: Occasionally Substance use type: former substance user, marijuana, crack/cocaine and heroin Housing: house Do you feel safe at home: Yes Do you feel safe in your relationship?: Yes Additional Social history: pt states she is on methadone History History 4 Para 4 Hx # Term Pregnancies Multiple births Hx # Pregnancies Ectopic pregnancies AB induced Hx Number of Living Children 3 AB spontaneous Past Pregnancies Del. Date GA/Weeks # Preg Succ Route Wgt Sex Labor Lgth Anesthesia Location Prov Complic 12/28/20 25 Delivery Date: 12/28/20 Last Updated by: Roxanna Rocha LPN Patient transferred OB care to [facility] Readmission Within the Past 30 Days Yes or No: Yes Date of First Admission Date of 1st Admission: 12/02/22 Date of this Admission Date of Admission: 12/22/22 This admission was: Through ED Speicalist Appointments Have you seen any other specialist since your 1st Admission?: No Assessment for Readmission Summary of readmission circumstances, based upon interviews: Erythema, purulent discharge and pain to area of foot where foregin body was removed 12/02 [address]ures were still in place as patient did not make her podiatry appointments out pt; these were removed in the ED Xray and MRI done with no abscess noted IV Clindamycin started If no improvement Podiatry will take her to OR for wash out Podiatry recommends daily dsg changes by nursing with Dakin's soaked 4 x 4, Kerlix, Elfego wrap. Non compliant with fu visits - has been told by podiatry she could have an amputation if she does not comply with medical instructions
--- NOTE | 2022-12-23 10:39 | W.PM.PROGNOT ---
Date of Service Date of service: 12/23/22 Time of Service: 10:39 Assessment and Plan Assessment and plan (1) Wound infection: Status: Acute Assessment and plan: left foot erythema, decreased pain to left foot Contiune dressing as per podiatry:Podiatry recommends daily dsg changes by nursing with Dakin's soaked 4 x 4, Kerlix, Elfego wrap Xray and MRI done with no abscess noted IV Clindamycin If no improvement Podiatry will take her to OR for wash out (2) Wound dehiscence: Status: Acute Assessment and plan: As above (3) Hepatitis C: Status: Chronic Assessment and plan: Prior intravenous drug abuser (4) Anxiety: Status: Chronic Assessment and plan: Minimal when seen but reported by nursing as increasing Lorazepam considered but not recommended as per pharmacy (5) DVT prophylaxis: Status: Acute Assessment and plan: Continue Enoxaparin (6) Discharge planning issues: Status: Resolved Assessment and plan: Home when stable Non compliant with fu visits - has been told by podiatry she could have an amputation if she does not comply with medical instructions Subjective Subjective Patient reports: no new complaints, feels better, pain is less, tolerating liquids well, tolerating a regular diet, voiding w/o difficulty, bowel movement, shortness of breath and afebrile; denies flatus, diarrhea, nausea or vomiting Exam Narrative Exam Narrative: Constitutional The patient is sitting in bed comfortable and cooperative during the interview. SO at bedside The patient is without acute distress and has average body habitus HENMT: Head is atraumatic, normocephalic, no lymphadenopathy. Facial structures with normal appearance Eyes: Well aligned, intact ROM Neck: Normal ROM, no meningeal signs Neuro:alert and oriented to self, person, place time and situation. No neurological focal deficit, Chest:Chest is symmetrical and normal appearance Resp: Normal respiratory pattern, speaks in full sentences, unlabored breathing, clear lung bilaterally Cardio: regular rhythm, S1, S2, capillary refill<3 sec., bilateral radial and left dorsalis pedis pulses are positive, palpable GI: Abdomen is not distended, soft and non tender, bowel sounds are present : Negative Costovertebral angle tenderness, Back/spine/Pelvis: No back tenderness, Integumentary: skin lesions to left foot, dressing in place DCI Extremities: strength 5/5 to left lower and upper extremities, right BKA positive popliteal pulse Psych: RASS 0, congruent mood and normal affect. Objective Last Vital Signs Temp 36.4 C L 12/23/22 07:23 Pulse 76 12/23/22 07:23 Resp 22 12/23/22 07:23 BP 114/71 12/23/22 07:23 Pulse Ox 98 12/23/22 07:23 Laboratory Results - last 24 hr 12/22/22 12/22/22 12/23/22 10:50 13:41 07:10 WBC 5.01 3.76 L RBC 4.18 4.16 Hgb 12.4 12.2 Hct 37.7 37.8 MCV 90 91 MCH 29.7 29.3 MCHC 32.9 32.3 RDW 14.2 14.0 Plt Count 255 210 MPV 9.0 9.6 Immature Gran % 0.2 0.3 Neutrophils % 60.7 58.0 Lymphocytes % 25.9 28.5 Monocytes % 9.2 6.6 Eosinophils % 3.4 6.1 Basophils % 0.6 0.5 Nucleated RBC % 0.0 0.0 Absolute Neutrophils 3.04 2.18 Absolute Lymphocytes 1.30 1.07 L Absolute Monocytes 0.46 0.25 Absolute Eosinophils 0.17 0.23 Absolute Basophils 0.03 0.02 VBG Lactate 1.0 Sodium 136 135 L Potassium 4.0 4.2 Chloride 101 101 Carbon Dioxide 28.1 27.4 Anion Gap 6.9 6.6 BUN 11 12 Creatinine 0.8 0.7 Est GFR (CKD-EPI 2020) 96.66 113.46 Glucose 110 H 96 Calcium 9.6 9.1 Magnesium 2.2 1.9 Total Bilirubin 0.3 AST 16 ALT 17 Alkaline Phosphatase 137 H C-Reactive Protein 7.52 H 4.30 H Total Protein 8.7 H Albumin 3.7 COVID-19 Source Nasal/Nares SARS-CoV-2 (PCR) Negative Add-On Test Request DONE Time Spent with Patient Time Spent with Patient: >50 minutes Time was spent: preparing to see the patient(eg.review tests), ordering medications,tests, procedures, referring, communicating with other health pediatric critical care nurse, indepentently interpreting results, counseling the patient and care coordination
[2022-12-23] MEDS: Normal Saline 500 ML 100 ML IV (12:31)
[2022-12-23 14:19] LABS: MRSA PCR Negative (Negative)
[2022-12-23 14:48] LABS: ESR (LRH) 55 mm/hr
--- NOTE | 2022-12-23 17:00 | PGE_ITS ---
Date of Service Date of service: 12/23/22 Time of Service: 17:00 Assessment and Plan Assessment and plan (1) Localized swelling of left lower extremity: Status: Acute (2) Cellulitis of left foot: Status: Resolved (3) Pain in left foot: Status: Resolved (4) Edema: Status: Acute (5) Cellulitis: Status: Acute (6) Wound dehiscence: Status: Acute Assessment and plan: Patient was seen and evaluated bedside today. Dressings were removed today and noted to be with minimal to no drainage, there is resolving erythema noted throughout the left foot resolving edema noted there is no purulence noted today however there is very mild drainage noted. Dressings were applied today with Dakin soaked 4 x 4, 4 x 4, Kerlix, Elfego wrap to the left foot. Nursing to continue the same daily. Chart was reviewed today. MRI negative for soft tissue abscess. X-rays and MRI both were negative for osteomyelitis. No surgical intervention is indicated or planned at this time. I recommend continuing antibiotics at this time. Patient is complaining about a yeast infection communicated with this nursing patient may benefit from Diflucan. We will continue to follow. Subjective Subjective Interval history since last seen: Patient is seen bedside today resting comfortably. Reports less pain to the foot. She is complaining about developing a yeast infection at this time. No other pedal complaints. Exam Extrem Other: Left lower extremity physical exam: Derm: 5 incision sites noted in total. Resolving erythema and edema noted to the left foot there is less tenderness to palpation and no paresthesias reported to the dorsum of the left foot. Incision site medial aspect of the left first metatarsophalangeal joint is noted to be with slight dehiscence there is less periwound erythema noted here. No bogginess no crepitus no fluctuance. No isaac drainage here Incision site dorsal aspect of the left first interspace noted to be with mild dehiscence dehiscence there is less erythema edema and tenderness to palpation noted here, no proximal streaking noted at this time no bogginess no crepitus no fluctuance no palpable abscess Incision site lateral aspect of the left fifth metatarsal base is noted to be with dehiscence there is less erythema edema, there is less drainage noted pain on palpation., No crepitus no bogginess no fluctuance no palpable abscess Incision site just distal to the left ankle joint laterally is noted to be healing very well no erythema mild edema no drainage no malodor noted. Incision site dorsal aspect of the left fourth metatarsal is noted to be with mild dehiscence there is less erythema mild edema no drainage no malodor noted. Overall, several of the incision sites are with dehiscence, no purulence no isaac abscess palpable at this time no crepitus no bogginess no proximal streaking. There is now less erythema edema and pain. Vascular: DP PT pulses are palpable, skin is warm to touch, no calf pain no chest pain. MSK there is less tenderness to palpation noted to the dorsal aspect of the left foot particularly around the midshaft of the 1-5 metatarsals. Neuro: Light touch sensation noted. To be intact. Objective Last Vital Signs Temp 97.5 F L 12/23/22 07:23 Pulse 76 12/23/22 07:23 Resp 22 12/23/22 07:23 BP 114/71 12/23/22 07:23 Pulse Ox 98 12/23/22 07:23 Laboratory Results - last 24 hr 12/22/22 12/23/22 12/23/22 10:50 07:10 12:20 WBC 3.76 L RBC 4.16 Hgb 12.2 Hct 37.8 MCV 91 MCH 29.3 MCHC 32.3 RDW 14.0 Plt Count 210 MPV 9.6 Immature Gran % 0.3 Neutrophils % 58.0 Lymphocytes % 28.5 Monocytes % 6.6 Eosinophils % 6.1 Basophils % 0.5 Nucleated RBC % 0.0 Absolute Neutrophils 2.18 Absolute Lymphocytes 1.07 L Absolute Monocytes 0.25 Absolute Eosinophils 0.23 Absolute Basophils 0.02 ESR TNP 55 Sodium 135 L Potassium 4.2 Chloride 101 Carbon Dioxide 27.4 Anion Gap 6.6 BUN 12 Creatinine 0.7 Est GFR (CKD-EPI 2020) 113.46 Glucose 96 Calcium 9.1 Magnesium 1.9 C-Reactive Protein 4.30 H MRSA (TEM-PCR) Negative Time Spent with Patient Time Spent with Patient: 35-49 minutes Time was spent: preparing to see the patient(eg.review tests), obtaining and/or reviewing separately otained hiistory, ordering medications,tests, procedures, referring, communicating with other health health care / medical job titles, indepentently interpreting results, counseling the patient and care coordination
[2022-12-23] MEDS: Enoxaparin 40 MG/0.4 ML SYR SC (19:56)
[2022-12-23 19:59] VITALS: BP 165/96; PULSE 98; RESP 16; TEMP 37; O2SAT 99
[2022-12-23] MEDS: Fluconazole 150 MG TAB (23:30)
[2022-12-24 03:15] VITALS: BP 100/65; PULSE 79; RESP 16; TEMP 36.9; O2SAT 98
[2022-12-24] MEDS: CLINDAMYCIN 600 MG/50 ML BAG 100 MG IVPB ×3 (05:10→19:32)
[2022-12-24 07:27] LABS: Abs Immature Grans 0.01 10^3/uL (0.0-0.06); Absolute Basophil Count 0.01 10^3/uL (0.0-0.2); Absolute Eosinophil Count 0.28 10^3/uL (0.0-0.7); Absolute Lymphocyte Count 1.25 10^3/uL (1.2-3.4); Absolute Monocyte Count 0.29 10^3/uL (0.1-0.8); Absolute Neutrophil Count 2.22 10^3/uL (1.2-6.7); Basophils % 0.2; Eosinophils % 6.9; HCT 38.6 % (36.0-46.0); HGB 12.5 g/dL (11.2-15.7); Immature Grans % 0.2; Lymphocytes % 30.8; MCHC 32.4 % (32.0-36.0); MCV 90 fL (80-95); MPV 9.1 fL (8.0-11.0); Monocytes % 7.1; Neutrophils % 54.8; Platelet Count 235 10^3/uL (130-400); RBC 4.31 10^6/uL (3.93-5.22); RDW 13.7 % (11.7-14.6); RDW-SD 45.5 fL; WBC 4.06 10^3/uL (4.4-10.8)
[2022-12-24 07:40] LABS: BUN 8 mg/dL (7-18); CREATININE 0.7 mg/dL (0.55-1.02); Calcium 9.8 mg/dL (8.5-10.1); Chloride 100 mmol/L (98-107); Estimated GFR 113.46 (mL/min/1.73m2); Glucose 105 mg/dL (74-106); Potassium 4.1 mmol/L (3.5-5.1); Sodium 136 mmol/L (136-145)
[2022-12-24] MEDS: DULoxetine 30 MG CAP 60 MG PO (08:05)
[2022-12-24] MEDS: Methadone Liquid 10 MG/ML 105 MG PO (08:05)
[2022-12-24] MEDS: Gabapentin 800 MG TAB PO ×4 (08:05→19:33)
--- NOTE | 2022-12-24 09:13 | PDOC.CMPRO ---
Date of service: 12/24/22 Time of Service: 09:14 Care Management Progress Note Progress Note Text Progress Note Text: S/O:Denisse was sitting up in bed visiting with her father when CM met with her. She was smiling and seemed to be in good spirits. Denisse informed CM that she believes she will be able to go home in a day or two. She stated that she misses her children and wants to be with them. Clinically she is doing well. Per Dr. Patel, her foot looks better with less swelling and erythema and there is no purulent drainage. She will remain on IV antibiotics at this time. A: Denisse is a 37 year old woman admitted on 12/22/22 with cellulitis. P:Denisse will likely be discharged home with new services home health services for dressing changes when medically cleared. She will follow up with her community providers and plan of care and transport with a friend or family. CM will follow and continue to support discharge planning needs.
--- NOTE | 2022-12-24 13:02 | W.PM.PROGNOT ---
Date of Service Date of service: 12/24/22 Time of Service: 12:30 Assessment and Plan Assessment and plan (1) Localized swelling of left lower extremity: Status: Acute (2) Cellulitis of left foot: Status: Resolved (3) Pain in left foot: Status: Resolved (4) Edema: Status: Acute (5) Cellulitis: Status: Acute (6) Wound dehiscence: Status: Acute Assessment and plan: Patient was seen and evaluated bedside today. Dressings were removed today and noted to be with minimal to no drainage, there is resolving erythema noted throughout the left foot resolving edema noted there is no purulence noted today however there is no drainage noted. Dressings were applied today with Dakin soaked 4 x 4, 4 x 4, Kerlix, Elfego wrap to the left foot. Nursing to continue the same daily. Chart was reviewed today. MRI negative for soft tissue abscess. X-rays and MRI both were negative for osteomyelitis. No surgical intervention is indicated or planned at this time. I recommend continuing antibiotics at this time. We will plan on keeping the patient inpatient for now on IV antibiotics as this seems to be helping. Patient does have history of noncompliance which puts her at risk for limb loss. I discussed the case with the medicine team who agree with the above. Their recommendations are greatly appreciated. We will continue to follow. Subjective Subjective Interval history since last seen: Patient is seen resting in comfortably bedside today. She states that she would like to go home. Denies pain to the feet. Overall doing well. Denies new pedal complaints. Denies nausea vomiting chills fever or diarrhea. Exam Extrem Other: Left lower extremity physical exam: Derm: 5 incision sites noted in total. Resolving erythema and edema noted to the left foot there is less tenderness to palpation and no paresthesias reported to the dorsum of the left foot. Incision site medial aspect of the left first metatarsophalangeal joint is noted to be with slight dehiscence there is less periwound erythema noted here. No bogginess no crepitus no fluctuance. No isaac drainage here Incision site dorsal aspect of the left first interspace noted to be with mild dehiscence there is less erythema edema and tenderness to palpation noted here, no proximal streaking noted at this time no bogginess no crepitus no fluctuance no palpable abscess, appears to be healing Incision site lateral aspect of the left fifth metatarsal base is noted to be with dehiscence there is less erythema edema, there is less drainage noted pain on palpation. However there is a full-thickness ulceration noted here measuring approximately 4 cm x 0.5 cm x 0.5 cm with the base 50% fibrotic for necrotic,, No crepitus no bogginess no fluctuance no palpable abscess Incision site just distal to the left ankle joint laterally is noted to be healing very well no erythema mild edema no drainage no malodor noted, nearly healed Incision site dorsal aspect of the left fourth metatarsal is noted to be with less erythema mild edema no drainage no malodor noted, healing well now Overall, several of the incision sites are with dehiscence, no purulence no isaac abscess palpable at this time no crepitus no bogginess no proximal streaking. There is now less erythema edema and pain; increased healing noted today. Vascular: DP PT pulses are palpable, skin is warm to touch, no calf pain no chest pain. MSK there is less tenderness to palpation noted to the dorsal aspect of the left foot particularly around the midshaft of the 1-5 metatarsals. Neuro: Light touch sensation noted. To be intact. Objective Last Vital Signs Temp 98.4 F 12/24/22 03:15 Pulse 79 12/24/22 03:15 Resp 16 12/24/22 03:15 BP 100/65 12/24/22 03:15 Pulse Ox 98 12/24/22 03:15 Laboratory Results - last 24 hr 12/22/22 12/23/22 12/23/22 10:50 07:10 12:20 WBC RBC Hgb Hct MCV MCH MCHC RDW Plt Count MPV Immature Gran % Neutrophils % Lymphocytes % Monocytes % Eosinophils % Basophils % Nucleated RBC % Absolute Neutrophils Absolute Lymphocytes Absolute Monocytes Absolute Eosinophils Absolute Basophils ESR TNP 55 Sodium Potassium Chloride Carbon Dioxide Anion Gap BUN Creatinine Est GFR (CKD-EPI 2020) Glucose Calcium MRSA (TEM-PCR) Negative 12/24/22 07:00 WBC 4.06 L RBC 4.31 Hgb 12.5 Hct 38.6 MCV 90 MCH 29.0 MCHC 32.4 RDW 13.7 Plt Count 235 MPV 9.1 Immature Gran % 0.2 Neutrophils % 54.8 Lymphocytes % 30.8 Monocytes % 7.1 Eosinophils % 6.9 Basophils % 0.2 Nucleated RBC % 0.0 Absolute Neutrophils 2.22 Absolute Lymphocytes 1.25 Absolute Monocytes 0.29 Absolute Eosinophils 0.28 Absolute Basophils 0.01 ESR Sodium 136 Potassium 4.1 Chloride 100 Carbon Dioxide 30.0 Anion Gap 6.0 BUN 8 Creatinine 0.7 Est GFR (CKD-EPI 2020) 113.46 Glucose 105 Calcium 9.8 MRSA (TEM-PCR) Time Spent with Patient Time Spent with Patient: 25-34 minutes Time was spent: preparing to see the patient(eg.review tests), obtaining and/or reviewing separately otained hiistory, ordering medications,tests, procedures, referring, communicating with other health manager critical care unit, indepentently interpreting results, counseling the patient and care coordination
[2022-12-24] MEDS: Acetaminophen 325 MG TAB PO ×2 (13:21→23:58)
--- NOTE | 2022-12-24 16:11 | W.PM.PROGNOT ---
Date of Service Date of service: 12/24/22 Time of Service: 16:11 Assessment and Plan Assessment and plan (1) Wound infection: Status: Acute Assessment and plan: L foot, present on admission. Improving on clindamycin. Continue clindamycin IV + dressing changes. Dr Patel recommends discharge home tomorrow with bactrim. (2) Wound dehiscence: Status: Acute Assessment and plan: As above (3) Hepatitis C: Status: Chronic Assessment and plan: F/u as outpatient. (4) Anxiety: Status: Chronic Assessment and plan: The patient had a code in 2021 where it was not clear if anxiolytics played a role. I would like to avoid any substances at all that could recreate the situation. (5) DVT prophylaxis: Status: Acute Assessment and plan: SC enoxaparin (6) Discharge planning issues: Status: Resolved Assessment and plan: Ancitipate discharge home tomorrow. Subjective Subjective Interval history since last seen: Denisse remembers me from her admission in December of last year. Today she feels like her L foot is doing really well and she would like to go home. We discussed Dr Patel's recommendations for her to stay another night prior to being discharged home on bactrim. Denies dizziness, CP, SOB, nausea. States her arms hurt from infiltrated IVs. We discussed how she should use warm compresses. 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 She started to cry when this came up in conversation. She requrested that her room be changed. But then when that was actually offered she stated she was fine and didn't need to change her room. Exam Narrative Exam Narrative: General: Pleasant female who looks to be doing well, A&Ox3 HEENT: EOMI, MMM Heart: RRR, no m/r/g Lungs: CTAB Abdomen: soft, nontender, nondistended Extremities: s/p R BKA; L foot is dressed - c/d/i Objective Last Vital Signs Temp 36.9 C 12/24/22 03:15 Pulse 79 12/24/22 03:15 Resp 16 12/24/22 03:15 BP 100/65 12/24/22 03:15 Pulse Ox 98 12/24/22 03:15 Laboratory Results - last 24 hr 12/24/22 07:00 WBC 4.06 L RBC 4.31 Hgb 12.5 Hct 38.6 MCV 90 MCH 29.0 MCHC 32.4 RDW 13.7 Plt Count 235 MPV 9.1 Immature Gran % 0.2 Neutrophils % 54.8 Lymphocytes % 30.8 Monocytes % 7.1 Eosinophils % 6.9 Basophils % 0.2 Nucleated RBC % 0.0 Absolute Neutrophils 2.22 Absolute Lymphocytes 1.25 Absolute Monocytes 0.29 Absolute Eosinophils 0.28 Absolute Basophils 0.01 Sodium 136 Potassium 4.1 Chloride 100 Carbon Dioxide 30.0 Anion Gap 6.0 BUN 8 Creatinine 0.7 Est GFR (CKD-EPI 2020) 113.46 Glucose 105 Calcium 9.8 Time Spent with Patient Time Spent with Patient: 25-34 minutes Time was spent: preparing to see the patient(eg.review tests), obtaining and/or reviewing separately otained hiistory, ordering medications,tests, procedures, referring, communicating with other health health care marketing specialist, indepentently interpreting results, counseling the patient and care coordination
[2022-12-24] MEDS: Enoxaparin 40 MG/0.4 ML SYR SC (19:34)
[2022-12-24 23:19] VITALS: BP 119/75; PULSE 93; RESP 18; TEMP 37.2; O2SAT 98
[2022-12-25 07:16] VITALS: BP 131/97; PULSE 92; RESP 18; TEMP 37.1; O2SAT 97
[2022-12-25] MEDS: Methadone Liquid 10 MG/ML 105 MG PO (08:54)
--- NOTE | 2022-12-25 09:08 | PDOC.CMPRO ---
Date of service: 12/25/22 Time of Service: 09:09 Care Management Progress Note Progress Note Text Progress Note Text: S/O:Denisse left AMA this morning after receiving her dose of methadone. A: Denisse is a 37 year old woman admitted on 12/22/22 with cellulitis. P:Denisse left AMA before discharge services could be coordinated.
[2022-12-25] MEDS: Sulfameth/Trimeth DS TAB 2 TAB PO (09:11)
[2022-12-25] MEDS: DULoxetine 30 MG CAP 60 MG PO (09:14)
[2022-12-25] MEDS: Gabapentin 800 MG TAB PO (09:14)
--- NOTE | 2022-12-25 09:29 | PGE_ITS ---
Date of Service Date of service: 12/25/22 Time of Service: 12:00 Assessment and Plan Assessment and plan (1) Localized swelling of left lower extremity: Status: Acute (2) Cellulitis of left foot: Status: Resolved (3) Pain in left foot: Status: Resolved (4) Edema: Status: Acute (5) Cellulitis: Status: Acute (6) Wound dehiscence: Status: Acute Assessment and plan: Patient was seen and evaluated bedside today. Dressings were removed today and noted to be with no drainage, there is nearly resolved erythema noted throughout the left foot resolving edema noted there is no purulence noted today however there is no drainage noted. Dressings were applied today with Dakin soaked 4 x 4, 4 x 4, Kerlix, Elfego wrap to the left foot. Nursing to continue the same da luzma. I recommend continuing antibiotics at this time. Patient has nearly resolved erythema at this time she is adamant on leaving the hospital today. She states she will be leaving AMA. Patient was advised that I do not recommend this however she would like to continue. Patient was given strict instructions to follow-up in office on Thursday upon discharge. I discussed the risks for limb loss. She is advised to continue daily dressing changes as discussed above. We will continue to follow. Subjective Subjective Interval history since last seen: Patient was seen bedside resting comfortably. States that she would like to go home. Considering leaving AMA. Exam Extrem Other: Left lower extremity physical exam: Derm: 5 incision sites noted in total. Resolving erythema and edema noted to the left foot there is less tenderness to palpation and no paresthesias reported to the dorsum of the left foot. Incision site medial aspect of the left first metatarsophalangeal joint is noted to be with slight dehiscence there is nearly resolved periwound erythema noted here. No bogginess no crepitus no fluctuance. No isaac drainage here Incision site dorsal aspect of the left first interspace noted to be with mild dehiscence there is nearly resolved erythema edema and tenderness to palpation noted here, no proximal streaking noted at this time no bogginess no crepitus no fluctuance no palpable abscess, appears to be healing Incision site lateral aspect of the left fifth metatarsal base is noted to be with dehiscence there is nearly resolved erythema edema, there is less drainage noted pain on palpation. However there is a full-thickness ulceration noted here measuring approximately 4 cm x 0.5 cm x 0.5 cm with the base 50% fibrotic for necrotic,, No crepitus no bogginess no fluctuance no palpable abscess Incision site just distal to the left ankle joint laterally is noted to be healing very well no erythema mild edema no drainage no malodor noted, nearly healed Incision site dorsal aspect of the left fourth metatarsal is noted to be with nearly resolved erythema mild edema no drainage no malodor noted, healing well now Overall, several of the incision sites are with dehiscence, no purulence no isaac abscess palpable at this time no crepitus no bogginess no proximal streaking. There is now less erythema edema and pain; increased healing noted today. Vascular: DP PT pulses are palpable, skin is warm to touch, no calf pain no chest pain. MSK there is less tenderness to palpation noted to the dorsal aspect of the left foot particularly around the midshaft of the 1-5 metatarsals. Neuro: Light touch sensation noted. To be intact. Objective Last Vital Signs Temp 98.8 F 12/25/22 07:16 Pulse 92 H 12/25/22 07:16 Resp 18 12/25/22 07:16 BP 131/97 H 12/25/22 07:16 Pulse Ox 97 12/25/22 07:16 Time Spent with Patient Time Spent with Patient: >50 minutes Time was spent: preparing to see the patient(eg.review tests), obtaining and/or reviewing separately otained hiistory, ordering medications,tests, procedures, referring, communicating with other health specialist wound care, indepentently interpreting results, counseling the patient and care coordination
--- NOTE | 2022-12-25 09:57 | PDOC.CMDIS ---
LACE Index Scoring Tool Questions: Length of Stay (in days): 3 Was the patient admitted via the E.D.?: Yes Comorbidities: Liver or Renal Disease E.D. Visits: 7 Answers: Total Score: 15 Risk of Readmission: High Risk Care Management Discharge Plan Reason for Hospitalization: Cellulitis and abscess of foot
--- NOTE | 2022-12-25 10:14 | DSE_ITS ---
Date of service: 12/25/22 Time of Service: 10:14 DS: Diagnosis Discharge Diagnosis (1) Cellulitis of left foot: Status: Acute (2) Wound infection: Status: Acute Asessment and Plan: L foot (3) Wound dehiscence: Status: Acute (4) Localized swelling of left lower extremity: Status: Acute (5) Hepatitis C: Status: Chronic (6) Anxiety: Status: Chronic (7) Methadone maintenance therapy patient: Status: Acute (8) Fall: Status: Acute Discharge Plan Disposition Patient Disposition: Against Medical Advice Condition: Improving Discharge Details Reason For Visit: Cellulitis and abscess of foot Admit Date/Time: 12/22/22 12:45 Admit Provider: Ray Khan Attending Provider: Ray Khan Primary Care Provider: Glenn Tinajero Hospital Course Hospital Course: Ms Mcdermott is a 37 year old female with PMHx of prior IVD use, 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 The patient was started on IV clindamycin. XR and MRI of the foot ruled out an abscess. She was evaluated by Dr Patel in the hospital and did not require any surgical debridement. The patient improved significantly with IV antibiotics and dressing changes. Unfortunately, she left AMA today prior to being able to get discharge instructions. I did send in a script for 10 days of 2 tabs of DS bactrim BID and had asked care management to notify the patient of this script. We hope that she follow up with her PCP and with Dr Patel. I was unable to evaluate the patient today prior to her departure AMA. Home Meds and New Rx's Prescriptions: Continued gabapentin 800 mg tablet 800 mg PO QID Patient Comments: TAKE ONE TABLET BY MOUTH FOUR TIMES A DAY methadone 10 mg/mL Concentrate 105 mg PO DAILY Rx Instructions: CONFIRMED DOSE WITH [facility] 08/20/21 125MG QAM duloxetine 60 mg capsule,delayed release(DR/EC) 60 mg PO DAILY Patient Comments: Take 1 capsule by mouth once a day take 1 capsule by mouth daily naloxone 4 mg/actuation spray,non-aerosol 4 mg intranasal Q2M PRNQty: 2 12RF Rx Instructions: spray 1 dose into ONE nostril; alternate nostrils w each dose until help arrives methylphenidate HCl [Ritalin LA] 40 mg capsule,ER biphasic 50-50 40 mg PO DAILY Patient Comments: Take 1 capsule by mouth once a day furosemide 20 mg tablet 20 mg PO DAILY PRN PRN (Reason: Edema) Patient Comments: 1 tablet by mouth once a day as needed TAKE ONE TABLET BY MOUTH EVERY DAY as needed for edema Changed sulfamethoxazole-trimethoprim [Bactrim DS] 800-160 mg tablet 2 tab PO BID Qty: 40 0RF Discontinued amoxicillin-pot clavulanate [Augmentin] 500-125 mg tablet 1 tab PO BID Qty: 20 0RF Discharge Instructions Instructions: Sulfamethoxazole/Trimethoprim (By mouth), Cellulitis (DC) Referrals: Glenn Tinajero [Primary Care Provider] - Cindi Patel DPM [[facility] STAFF PHYSICIAN] - Discharge Orders Discharge Orders: Discharge Order (Routine); Ordered 12/25/22 Ordered By: Gracie Caro Discharge Data Discharge Date/Time-TO BE ENTERED AT DEPARTURE: 12/25/22 09:34 DS: Summary Time Spent with Patient providing and/or coordinating discharge services: Less than 30 minutes Status at Discharge Functional status at discharge: independent ambulation (with a prosthesis) Overall status at discharge: patient is progressing back to baseline Mental Status: mental status grossly normal Speech and Movement: speech and movement normal Mood: anxious mood Affect: anxious affect Exam Narrative Exam Narrative: Exam as of yesterday: General: Pleasant female who looks to be doing well, A&Ox3 HEENT: EOMI, MMM Heart: RRR, no m/r/g Lungs: CTAB Abdomen: soft, nontender, nondistended Extremities: s/p R BKA; L foot is dressed - c/d/i Psych Mental Status: mental status grossly normal Speech and Movement: speech and movement normal Mood: anxious mood Affect: anxious affect DS: Data Vitals/I&O Vitals and I&O: Vital Signs Temperature 37.1 C 12/25/22 07:16 Temperature Source Tympanic 12/25/22 07:16 Pulse 92 H 12/25/22 07:16 Pulse Rhythm Regular 12/25/22 00:10 Respiratory Rate 18 12/25/22 07:16 Respiratory Effort Normal 12/25/22 00:10 Respiratory Depth Normal 12/25/22 00:10 Respiratory Pattern Irregular 12/25/22 00:10 Blood Pressure 131/97 H 12/25/22 07:16 Blood Pressure Position Sitting 12/22/22 09:47 Pulse Oximetry 97 12/25/22 07:16 Oxygen Delivery Method Room Air 12/25/22 07:16 Oxygen Flow Rate 0 12/25/22 07:16 Pain Level 3 12/25/22 07:16 Comment bp called over the radio 12/25/22 07:16 Intake & Output 12/24/22 12/24/22 12/25/22 11:59 23:59 11:59 Intake Total 50 / 770 720 / 770 Balance 50 / 770 720 / 770 Intake: IV 50 / 150 100 / 150 Oral 620 / 620 Other: Urine Color Yellow Urine Appearance Clear Clear Clear Comment BRP didn't see void Voiding Methods Toilet Toilet Toilet Additional Comments Additional comments: XR L foot: No acute fracture or dislocation. MRI L foot: 1. Subcutaneous edema over the dorsal aspect of the foot consistent with cellulitis. No evidence of distinct soft tissue abscess. 2. No evidence of osteomyelitis. PFSH All Active Problems (Updated 12/25/22 @ 12:22 by Gracie Caro MD) Fall (Acute) Methadone maintenance therapy patient (Acute) Cellulitis of left foot (Acute) Postop check (Acute) DVT prophylaxis (Acute) Wound infection (Acute) Wound dehiscence (Acute) Cardiac asystole (Acute) Hepatitis C (Chronic) Mild tricuspid regurgitation (Acute) Anemia (Chronic) Localized swelling of left lower extremity (Acute) Cellulitis (Acute) Smoker (Acute) Viral illness (Acute) History of prior with IUGR (Acute 01/11/15) History of kidney injury (Acute 01/17/16) Acute January, History of drug abuse (Acute 01/17/16) In IP treatment at [facility] [place], no longer on methadone as of 01/17/16. Family court is close to resolved - will end . She is expecting 1st daughter to come home. Depression (Acute 01/11/15) Chronic hepatitis C without hepatic coma (Chronic 01/11/15) Cardiomyopathy (Chronic 01/22/16) Anemia of chronic disease (Acute 01/17/16) ADHD, hyperactive-impulsive type (Chronic 05/14/16) Insomnia (Acute) DVT prophylaxis (Acute) Fever (Acute) Prepatellar bursitis of right knee (Acute) Anxiety (Chronic) Anemia (Chronic) Opioid dependence (Chronic) Mitral regurgitation (Chronic) Edema (Acute) Medical History Lack of intravenous access IV drug user Left posterior fascicular block (LPFB) RBBB Acute respiratory failure with hypoxia Fungemia PEGGY (acute kidney injury) Lactic acidosis Closed head injury Metabolic acidosis Hyperkalemia Cardiac arrest with successful resuscitation Pulmonary nodules Anemia Scalded skin syndrome Endocarditis Sepsis Bacteremia Intractable low back pain Hyponatremia Pneumonia Cellulitis of left hand Cellulitis of hand, right Alcohol abuse History of depression Hx of cocaine abuse Personality disorder Herpes, vulvar PTSD (post-traumatic stress disorder) ADHD Amputation of right foot Paresthesia of both hands COVID-19 virus infection Effusion, right knee Dehydration Subacute endocarditis (01/22/16) MSSA endocarditis January, examination or test, positive result Pleural effusion, bilateral (01/22/16) Bacterial vaginosis (05/24/13) Rx with Metronidazole cream given 04/19/15. HSV infection Hx of who one week after . ? HSV or H1N1 infection. Pt has been on prophylaxis with pregnancies. Depression difficulty bonding with 2nd child. child removed from her custody. was on Wellbutrin but had sz and not on meds at this time. has appt with counselor 03/2015 Surgical History section (11/24/12) PCD @ 35w. IUGR. NRFH. [id number]. [facility] 03/26[place] RCD. Pt arrived in labor and declined SUN. F. Jessica. Amputation 12/23/16;[facility]; RIGHT BELOW THE KNEE Family History Mother No problems noted. Father No problems noted. Brother No problems noted. Grandfather No problems noted. Grandfather No problems noted. Grandmother No problems noted. Grandmother No problems noted. Son No problems noted. Son No problems noted. Daughter No problems noted. Daughter No problems noted. Social History Smoking/Tobacco Use Status: Current every day Tobacco Type: cigarettes Smoking risk assessment performed?: Yes Alcohol Intake: former Drug use: Occasionally Substance use type: former substance user, marijuana, crack/cocaine and heroin Housing: house Do you feel safe at home: Yes Do you feel safe in your relationship?: Yes Additional Social history: pt states she is on methadone History History 4 Para 4 Hx # Term Pregnancies Multiple births Hx # Pregnancies Ectopic pregnancies AB induced Hx Number of Living Children 3 AB spontaneous Past Pregnancies Del. Date GA/Weeks # Preg Succ Route Wgt Sex Labor [facility]th [facility] Delivery Date: 12/28/20 Last Updated by: Roxanna Rocha LPN Patient transferred OB care to [facility] Time Spent with Patient Time Spent with Patient: <45 minutes Time was spent: preparing to see the patient(eg.review tests), obtaining and/or reviewing separately otained hiistory, ordering medications,tests, procedures, referring, communicating with other health insurance healthcare representative, indepentently interpreting results and care coordination
--- NOTE | 2022-12-25 11:53 | NUR.NOTE ---
Pt with swelling in bilateral forearms. Red and warm to touch. MD notified. Pt not willing to stay to have this evaluated and decided to leave [place]. Paperwork completed. aware.
== END 2022-12-25 09:34 | disposition left against medical advice (07) | DRG 863 ==
LOC: ER 13:48 → MS 14:34
PROVIDERS: Nurse Practitioner Acute Care; Nurse Practitioner Family; Admitting Provider Family Medicine; Emergency Provider Registered Nurse Emergency; PCP Physician Assistant; Visit Provider Family Medicine
DX: T81.49XA Infection following a procedure, other surgical site, initial encounter (principal); L03.116 Cellulitis of left lower limb; T81.31XA Disruption of external operation (surgical) wound, not elsewhere classified, initial encounter; I42.9 Cardiomyopathy, unspecified; F11.20 Opioid dependence, uncomplicated; I34.0 Nonrheumatic mitral (valve) insufficiency; F41.9 Anxiety disorder, unspecified; G47.00 Insomnia, unspecified; F90.9 Attention-deficit hyperactivity disorder, unspecified type; D63.8 Anemia in other chronic diseases classified elsewhere; B18.2 Chronic viral hepatitis C; F32.A Depression, unspecified; F17.210 Nicotine dependence, cigarettes, uncomplicated; I45.10 Unspecified right bundle-branch block; F43.10 Post-traumatic stress disorder, unspecified
CPT/HCPCS: 00123; 36415; 80048; 80053; 85652; 87077; 87635; 87641; 96365; 96367; 99285; J1650; 73630; 73720; 83605; 83735; 85025; 86140; 87070; 87186; 87205; 99222; 99232; 99233; 99239; J0696

== ENCOUNTER 2023-01-18 07:20 | Emergency (ER) | payer MEDICAID, SELFPAY ==
[2023-01-18 07:22] VITALS: BP 156/132; PULSE 62; RESP 18; TEMP 36.8; O2SAT 99
[2023-01-18 07:33] VITALS: BP 128/74; PULSE 54; RESP 16; TEMP 36.8; O2SAT 100
[2023-01-18 07:51] VITALS: BP 124/79; PULSE 52; O2SAT 98
--- NOTE | 2023-01-18 08:20 | W.ED.GENAD ---
Discharge Plan Disposition Patient Disposition: Home Condition: Good Discharge Details Clinical Impression: Vomiting Primary Care Provider: Glenn Tinajero ED Provider: Yvette Yeung Home Meds and New Rx's Prescriptions: New ondansetron 4 mg tablet,disintegrating 4 mg PO Q8H PRNQty: 10 0RF No Action gabapentin 800 mg tablet 800 mg PO QID Patient Comments: TAKE ONE TABLET BY MOUTH FOUR TIMES A DAY methadone 10 mg/mL Concentrate 105 mg PO DAILY Rx Instructions: CONFIRMED DOSE WITH [facility] 08/20/21 125MG QAM duloxetine 60 mg capsule,delayed release(DR/EC) 60 mg PO DAILY Patient Comments: Take 1 capsule by mouth once a day take 1 capsule by mouth daily naloxone 4 mg/actuation spray,non-aerosol 4 mg intranasal Q2M PRNQty: 2 12RF Rx Instructions: spray 1 dose into ONE nostril; alternate nostrils w each dose until help arrives methylphenidate HCl [Ritalin LA] 40 mg capsule,ER biphasic 50-50 40 mg PO DAILY Patient Comments: Take 1 capsule by mouth once a day furosemide 20 mg tablet 20 mg PO DAILY PRN PRN (Reason: Edema) Patient Comments: 1 tablet by mouth once a day as needed TAKE ONE TABLET BY MOUTH EVERY DAY as needed for edema Discharge Instructions Instructions: Acute Nausea and Vomiting (ED) Additional Instructions: Zofran for nausea up to every 8 hours as needed. Call your primary care doctor tomorrow to schedule an appointment within 48 hours to follow up on your visit today. Return to the emergency department for new or worsening symptoms, including fever, inability to keep down fluids, new/different/worse abdominal pain, or if you have any other concerns. Referrals: Glenn Tinajero [Primary Care Provider] - Medical Decision Making 37yo F with hx anemia, hep C, polysubstance use, presenting with nausea and vomiting; onset yesterday evening, unable to keep anything down, associated diffuse crampy abdominal pain. Last BM 2-3 days ago, normal. Vital signs reassuring, no abdominal tenderness on exam. Not overtly septic. Will give 1L IVFB, zofran. With reassuring abdominal exam, will not pursue CT imaging at this time, low suspicion for acute/surgical intrabdominal process, obstruction, appendicitis, etc. IVFB and droperidol for symptoms. Labs reviewed as below, CBC & CMP with no actionable abnormalities, mild transaminitis consistent with known chronic disease processes. On reassessment she remains non-toxic appearing, abdominal remains nontender, she reports her symptoms have improved and she has tolerated PO fluids. She requests discharge home which is reasonable. EKG without significant QT prolongation.; will prescribe short course of PO zofran. Discharged home; discharge instructions including return precautions were reviewed with patient who verbalized understanding. All questions were answered and they are in full agreement with the plan. Lab Data Lab results reviewed: Yes I reviewed the patient's lab results. Labs: Laboratory Tests Range/Units 01/18/23 08:15 WBC (4.4-10.8) 10^3/uL 12.49 H RBC (3.93-5.22) 10^6/uL 4.62 Hgb (11.2-15.7) g/dL 13.2 Hct (36.0-46.0) % 40.6 MCV (80-95) fL 88 MCH (27.0-33.0) pg 28.6 MCHC (32.0-36.0) % 32.5 RDW (11.7-14.6) % 14.2 Plt Count (130-400) 10^3/uL 269 MPV (8.0-11.0) fL 9.3 Immature Gran % 0.3 Neutrophils % 92.5 Lymphocytes % 3.8 Monocytes % 3.0 Eosinophils % 0.2 Basophils % 0.2 Nucleated RBC % (0.0-0.3) % 0.0 Absolute Neutrophils (1.2-6.7) 10^3/uL 11.55 H Absolute Lymphocytes (1.2-3.4) 10^3/uL 0.47 L Absolute Monocytes (0.1-0.8) 10^3/uL 0.37 Absolute Eosinophils (0.0-0.7) 10^3/uL 0.02 Absolute Basophils (0.0-0.2) 10^3/uL 0.02 Sodium (136-145) mmol/L 134 L Potassium (3.5-5.1) mmol/L 4.2 Chloride (98-107) mmol/L 99 Carbon Dioxide (21.0-32.0) mmol/L 30.6 Anion Gap (3-11) mmol/L 4.4 BUN (7-18) mg/dL 15 Creatinine (0.55-1.02) mg/dL 0.8 Est GFR (CKD-EPI 2020) (mL/min/1.73m2) 96.66 Glucose (74-106) mg/dL 188 H Calcium (8.5-10.1) mg/dL 9.8 Magnesium (1.8-2.4) mg/dL 2.1 Total Bilirubin (0.2-1.0) mg/dL 0.4 AST (15-37) U/L 42 H ALT (14-59) U/L 71 H Alkaline Phosphatase (46-116) U/L 125 H Total Protein (6.4-8.2) g/dL 8.8 H Albumin (3.4-5.0) g/dL 3.8 HPI General Mode of arrival: ambulatory. Date/Time Provider Initiated Documentation: 01/18/23 07:22. Limitations to Documentation: no limitations. Information obtained by: patient. HPI Narrative: 37yo F with hx anemia, hep C, polysubstance use, presenting with nausea and vomiting. Symptoms started last night, frequent non-bloody nonbilious emesis. Has not been able to keep anything down. Last BM 2-3 days ago, normal. Diffuse abdominal pain,crampy. No fevers. She is otherwise in her usual state of health with no rash, dysuria, hematuria, chest pain, shortness of breath, lightheadedness, or other concerns. Related Data Home Medications Medication Instructions Recorded Confirmed gabapentin 800 mg tablet 800 mg PO QID 06/02/21 01/18/23 methadone 10 mg/mL oral concentrate 105 mg PO DAILY 06/02/21 01/18/23 furosemide 20 mg tablet 20 mg PO DAILY PRN PRN Edema 12/03/22 01/18/23 methylphenidate HCl 40 mg biphasic 40 mg PO DAILY 12/03/22 01/18/23 50-50 capsule,extended release (Ritalin LA) duloxetine 60 mg capsule,delayed 60 mg PO DAILY 12/22/22 01/18/23 release naloxone 4 mg/actuation nasal spray 4 mg intranasal Q2M PRN #2 ea 12/25/22 01/18/23 ondansetron 4 mg disintegrating 4 mg PO Q8H PRN #10 tabs 01/18/23 tablet Previous Rx's Medication Instructions Recorded naloxone 4 mg/actuation nasal spray 4 mg intranasal Q2M PRN #2 ea 12/25/22 ondansetron 4 mg disintegrating 4 mg PO Q8H PRN #10 tabs 01/18/23 tablet Allergies Allergy/AdvReac Type Severity Reaction Status Date / Time bupropion HCl AdvReac Intermediate Contraindic Verified 01/18/23 07:31 [From Wellbutrin SR] ated General Stated Complaint: Abd Prob CELESTE: 3 Review of Systems Narrative: see HPI PFSH All Active Problems (Updated 01/18/23 @ 11:03 by Yvette Yeung MD) Vomiting (Acute) Fall (Acute) Methadone maintenance therapy patient (Acute) Cellulitis of left foot (Acute) Postop check (Acute) Wound infection (Acute) Wound dehiscence (Acute) Cardiac asystole (Acute) Hepatitis C (Chronic) Mild tricuspid regurgitation (Acute) Anemia (Chronic) Localized swelling of left lower extremity (Acute) Cellulitis (Acute) Smoker (Acute) Viral illness (Acute) History of prior with IUGR (Acute 01/11/15) History of kidney injury (Acute 01/17/16) Acute January, History of drug abuse (Acute 01/17/16) In IP treatment at [place], no longer on methadone as of 01/17/16. Family court is close to resolved - will end . She is expecting 1st daughter to come home. Depression (Acute 01/11/15) Chronic hepatitis C without hepatic coma (Chronic 01/11/15) Cardiomyopathy (Chronic 01/22/16) Anemia of chronic disease (Acute 01/17/16) ADHD, hyperactive-impulsive type (Chronic 05/14/16) Insomnia (Acute) DVT prophylaxis (Acute) Fever (Acute) Prepatellar bursitis of right knee (Acute) Anxiety (Chronic) Anemia (Chronic) Opioid dependence (Chronic) Mitral regurgitation (Chronic) Edema (Acute) Medical History Lack of intravenous access IV drug user Left posterior fascicular block (LPFB) RBBB Acute respiratory failure with hypoxia Fungemia PEGGY (acute kidney injury) Lactic acidosis Closed head injury Metabolic acidosis Hyperkalemia Cardiac arrest with successful resuscitation Pulmonary nodules Anemia Scalded skin syndrome Endocarditis Sepsis Bacteremia Intractable low back pain Hyponatremia Pneumonia Cellulitis of left hand Cellulitis of hand, right Alcohol abuse History of depression Hx of cocaine abuse Personality disorder Herpes, vulvar PTSD (post-traumatic stress disorder) ADHD Amputation of right foot Paresthesia of both hands COVID-19 virus infection Effusion, right knee Dehydration Subacute endocarditis (01/22/16) MSSA endocarditis January, examination or test, positive result Pleural effusion, bilateral (01/22/16) Bacterial vaginosis (05/24/13) Rx with Metronidazole cream given 04/19/15. HSV infection Hx of infant who one week after . ? HSV or H1N1 infection. Pt has been on prophylaxis with pregnancies. Depression difficulty bonding with 2nd child. child removed from her custody. was on Wellbutrin but had sz and not on meds at this time. has appt with counselor 03/2015 Surgical History section (11/24/12) PCD @ 35w. IUGR. [facility]. [id number]. [facility]. 03/26/15 RCD. Pt arrived in labor and declined SUN. F. Jessica. Amputation 12/23/16;[facility]; RIGHT BELOW THE KNEE Family History Mother No problems noted. Father No problems noted. Brother No problems noted. Grandfather No problems noted. Grandfather No problems noted. Grandmother No problems noted. Grandmother No problems noted. Son No problems noted. Son No problems noted. Daughter No problems noted. Daughter No problems noted. Social History Smoking/Tobacco Use Status: Current every day Tobacco Type: cigarettes Smoking risk assessment performed?: Yes Alcohol Intake: current Alcohol Intake frequency: a few times a month Alcohol type: beer Drug use: Occasionally Substance use type: former substance user, marijuana, crack/cocaine and heroin Housing: house Do you feel safe at home: Yes Do you feel safe in your relationship?: Yes Additional Social history: pt states she is on methadone History History 4 Para 4 Hx # Term Pregnancies Multiple births Hx # Pregnancies Ectopic pregnancies AB induced Hx Number of Living Children 3 AB spontaneous Past Pregnancies Del. Date GA/Weeks # Preg Succ Route Wgt Sex Labor Lgth Anesthesia Location Prov Complic 12/28/20 25 Delivery Date: 12/28/20 Last Updated by: Roxanna Rocha LPN Patient transferred OB care to [facility] Exam Narrative Exam Narrative: General: Alert, well nourished, Head: Normocephalic, atraumatic Neck: Trachea midline, Neck supple. ENT: MMM. Poor dentition. Cardiac: RRR, no murmurs appreciated Resp: No respiratory distress. CTAB. Abd: Soft, non-distended, nontender : No suprapubic tenderness. Extremities: No deformities. No peripheral edema. Neurologic: GCS 15. Moves all extremities freely against gravity Course Vital Signs Vital signs: Vital Signs Temperature 36.8 C 01/18/23 07:22 Pulse 62 01/18/23 07:22 Respiratory Rate 18 01/18/23 07:22 Blood Pressure 156/132 H 01/18/23 07:22 Pulse Oximetry 99 01/18/23 07:22 Temperature 36.8 C 01/18/23 07:33 Temperature Source Skin 01/18/23 07:33 Pulse 52 L 01/18/23 07:51 Respiratory Rate 16 01/18/23 07:33 Respiratory Effort Normal 01/18/23 07:35 Blood Pressure 124/79 01/18/23 07:51 Blood Pressure Position Sitting 01/18/23 07:33 Pulse Oximetry 98 01/18/23 07:51 Oxygen Delivery Method Room Air 01/18/23 07:51 Oxygen Flow Rate 0 01/18/23 07:51 Pain Level 10 01/18/23 07:33 PAWSS Have you Been Recently Intoxicated or Drunk Within the Last 30 days?: Yes Have you Ever Experienced Previous Episodes of Alcohol Withdrawal?: No Have you ever Experienced Withdrawal Seizures?: No Have you ever Experienced Delirium Tremens(DT)s?: No Have you ever undergone Alcohol Rehabilitation Treatment (i.e, inpt ot outpatient treatment programs)?: No Have you ever Experienced Blackouts?: No Have you ever Combined Alcohol with other Downers within the last 90 days?: No Have you ever Combined Alcohol with any other Substance of Abuse during the last 90 days?: No Positive Blood Alcohol level on Presentation? [PCS.BAL]: No Evidence of Increased Autonomic Activity (i.e. HR>120, tremor, sweating, agitation, nausea)?: No Result: 1
[2023-01-18 08:23] LABS: Abs Immature Grans 0.04 10^3/uL (0.0-0.06); Absolute Eosinophil Count 0.02 10^3/uL (0.0-0.7); Basophils % 0.2; Eosinophils % 0.2; HCT 40.6 % (36.0-46.0); HGB 13.2 g/dL (11.2-15.7); Immature Grans % 0.3; Lymphocytes % 3.8; MCH 28.6 pg (27.0-33.0); MCHC 32.5 % (32.0-36.0); MCV 88 fL (80-95); MPV 9.3 fL (8.0-11.0); Neutrophils % 92.5; Platelet Count 269 10^3/uL (130-400); RBC 4.62 10^6/uL (3.93-5.22); RDW 14.2 % (11.7-14.6); RDW-SD 45.5 fL; WBC 12.49 10^3/uL (4.4-10.8)
[2023-01-18] MEDS: Droperidol 5 MG/2 ML VIAL 2.5 MG IVP (08:23)
[2023-01-18] MEDS: Normal Saline 1,000 ML 1000 ML IV (08:23)
[2023-01-18 08:25] LABS: Absolute Basophil Count 0.02 10^3/uL (0.0-0.2); Absolute Lymphocyte Count 0.47 10^3/uL (1.2-3.4); Absolute Monocyte Count 0.37 10^3/uL (0.1-0.8); Absolute Neutrophil Count 11.55 10^3/uL (1.2-6.7)
[2023-01-18 08:43] LABS: ALT 71 U/L (14-59); AST 42 U/L (15-37); Albumin 3.8 g/dL (3.4-5.0); Alkaline Phosphatase 125 U/L (46-116); Anion Gap 4.4 mmol/L (3-11); BUN 15 mg/dL (7-18); Bilirubin, Total 0.4 mg/dL (0.2-1.0); CO2 30.6 mmol/L (21.0-32.0); CREATININE 0.8 mg/dL (0.55-1.02); Calcium 9.8 mg/dL (8.5-10.1); Chloride 99 mmol/L (98-107); Estimated GFR 96.66 (mL/min/1.73m2); Glucose 188 mg/dL (74-106); Magnesium 2.1 mg/dL (1.8-2.4); Potassium 4.2 mmol/L (3.5-5.1); Sodium 134 mmol/L (136-145); Total Protein 8.8 g/dL (6.4-8.2)
--- NOTE | 2023-01-18 08:45 | RT.EKG_ITS ---
APPROVED REPORT Exam: Resting ECG Reason for Exam: QTc prolonging medication Patient Location: E HR:57 bpm ECG Measurements Heart Rate 57 AXIS WV 151 P 72 QRSd 90 QRS 76 QT 478 T 61 QTc 465 Conclusion Slow sinus arrhythmia...V-rate 50- 69, mean< 60
[2023-01-18 09:00] VITALS: BP 102/61; PULSE 58; RESP 16; TEMP 36.5; O2SAT 99
--- NOTE | 2023-01-18 09:52 | NUR.NOTE ---
0945: PO challenge Nursing Note:
[2023-01-18 10:02] VITALS: BP 96/68; PULSE 57; RESP 14; TEMP 36.4; O2SAT 100
== END 2023-01-18 11:22 | disposition home or self-care (01) ==
PROVIDERS: Emergency Provider Student in an Organized Health Care Education/Training Program; PCP Physician Assistant
DX: R10.9 Unspecified abdominal pain (principal); R11.2 Nausea with vomiting, unspecified; F17.210 Nicotine dependence, cigarettes, uncomplicated; Z86.74 Personal history of sudden cardiac arrest; Z89.431 Acquired absence of right foot
CPT/HCPCS: 36415; 80053; 93005; 96361; 96374; 99283; 83735; 85025; 93010; J1790

== ENCOUNTER 2023-03-19 16:50 | Emergency (ER) | payer MEDICAID, SELFPAY ==
[2023-03-19 16:57] VITALS: BP 136/96; PULSE 114; TEMP 37; O2SAT 100
--- NOTE | 2023-03-19 17:30 | RT.EKG_ITS ---
APPROVED REPORT Exam: Resting ECG Reason for Exam: seizure Patient Location: E HR:64 bpm ECG Measurements Heart Rate 64 AXIS KS 185 P 80 QRSd 96 QRS 85 QT 469 T 74 QTc 486 Conclusion Sinus rhythm normal axis no ST changes
--- NOTE | 2023-03-19 17:30 | DI.CT_ITS ---
Exam(s) CT HEAD WO EXAM: CT HEAD WO CLINICAL HISTORY: seizure. TECHNIQUE: Imaging Protocol: Axial computed tomography images with coronal and sagittal reformatted images were created and reviewed COMPARISON: CT CT HEAD CERVICAL SPINE WO from 12/10/2021 FINDINGS: Ventricles and Extra axial spaces: Normal in size and morphology for the patient's age. Hemorrhage: None. Cerebral parenchyma: Normal. Midline shift: None. Brainstem/Cerebellum: Normal. Calvarium: Normal. Visualized Paranasal sinuses/Mastoids: Clear. Soft Tissues: Unremarkable. IMPRESSION: No acute intracranial process. RADIATION DOSE DELIVERED: 720.56mGy.cm Total DLP DATA REPOSITORY: All CT scans at this facility are submitted to the National Radiology Data Registry (NRDR) Dose Index Registry (DIR) with the [employer] ([employer]). RADIATION OPTIMIZATION: All CT scans at this facility use at least one of these dose optimization te chniques: automated exposure control; mA and/or kV adjustment per patient size (includes targeted exa ms where dose is matched to clinical indication); or iterative reconstruction.
--- NOTE | 2023-03-19 17:34 | W.ED.GENAD ---
HPI General Stated Complaint: Seizure Mode of arrival: ambulatory. CELESTE: 3 Date/Time Provider Initiated Documentation: 03/19/23 17:02. Limitations to Documentation: altered mental status (under the influence). Information obtained by: patient, family, RN notes reviewed and old records reviewed. HPI Narrative: 37 year old female presents to the ED with her friend who reports that she was in the truck just prior to arrival looked behind her and went still, then had a grand mal seizure lasting approximately 2 minutes, she then was real sleepy. She endorses coke today and alcohol, she is also taking methadone. Pmhx includes Hx of IVDA, RBKA, hyponatremia, PTSD, herpes, ADHD, endocarditis, depression, On initial exam she has no signs of trauma denies hitting her head, she does appear to be influenza and easily falls asleep. She is maintaining her airway vital signs are stable. Related Data Home Medications Medication Instructions Recorded Confirmed gabapentin 800 mg tablet 800 mg PO QID 06/02/21 03/19/23 methadone 10 mg/mL oral concentrate 105 mg PO DAILY 06/02/21 03/19/23 furosemide 20 mg tablet 20 mg PO DAILY PRN PRN Edema 12/03/22 03/19/23 methylphenidate HCl 40 mg biphasic 40 mg PO DAILY 12/03/22 03/19/23 50-50 capsule,extended release (Ritalin LA) duloxetine 60 mg capsule,delayed 60 mg PO DAILY 12/22/22 03/19/23 release naloxone 4 mg/actuation nasal spray 4 mg intranasal Q2M PRN #2 ea 12/25/22 03/19/23 ondansetron 4 mg disintegrating 4 mg PO Q8H PRN #10 tabs 01/18/23 03/19/23 tablet Previous Rx's Medication Instructions Recorded naloxone 4 mg/actuation nasal spray 4 mg intranasal Q2M PRN #2 ea 12/25/22 ondansetron 4 mg disintegrating 4 mg PO Q8H PRN #10 tabs 01/18/23 tablet Allergies Allergy/AdvReac Type Severity Reaction Status Date / Time bupropion HCl AdvReac Intermediate Contraindic Verified 03/19/23 17:00 [From Wellbutrin SR] ated PFSH All Active Problems (Updated 03/19/23 @ 21:22 by Jeannette Duffy NP) Seizure (Acute) Substance abuse (Acute) Fall (Acute) Methadone maintenance therapy patient (Acute) Cellulitis of left foot (Acute) Postop check (Acute) Wound infection (Acute) Wound dehiscence (Acute) Cardiac asystole (Acute) Hepatitis C (Chronic) Mild tricuspid regurgitation (Acute) Anemia (Chronic) Localized swelling of left lower extremity (Acute) Cellulitis (Acute) Smoker (Acute) Viral illness (Acute) History of prior with IUGR (Acute 01/11/15) History of kidney injury (Acute 01/17/16) Acute January, History of drug abuse (Acute 01/17/16) In IP treatment at [place], no longer on methadone as of 01/17/16. Family court is close to resolved - will end . She is expecting 1st daughter to come home. Depression (Acute 01/11/15) Chronic hepatitis C without hepatic coma (Chronic 01/11/15) Cardiomyopathy (Chronic 01/22/16) Anemia of chronic disease (Acute 01/17/16) ADHD, hyperactive-impulsive type (Chronic 05/14/16) Insomnia (Acute) DVT prophylaxis (Acute) Fever (Acute) Prepatellar bursitis of right knee (Acute) Anxiety (Chronic) Anemia (Chronic) Opioid dependence (Chronic) Mitral regurgitation (Chronic) Edema (Acute) Medical History Lack of intravenous access IV drug user Left posterior fascicular block (LPFB) RBBB Acute respiratory failure with hypoxia Fungemia PEGGY (acute kidney injury) Lactic acidosis Closed head injury Metabolic acidosis Hyperkalemia Cardiac arrest with successful resuscitation Pulmonary nodules Anemia Scalded skin syndrome Endocarditis Sepsis Bacteremia Intractable low back pain Hyponatremia Pneumonia Cellulitis of left hand Cellulitis of hand, right Alcohol abuse History of depression Hx of cocaine abuse Personality disorder Herpes, vulvar PTSD (post-traumatic stress disorder) ADHD Amputation of right foot Paresthesia of both hands COVID-19 virus infection Effusion, right knee Dehydration Subacute endocarditis (01/22/16) MSSA endocarditis January, examination or test, positive result Pleural effusion, bilateral (01/22/16) Bacterial vaginosis (05/24/13) Rx with Metronidazole cream given 04/19/15. HSV infection Hx of who one week after . ? HSV or H1N1 infection. Pt has been on prophylaxis with pregnancies. Depression difficulty bonding with 2nd child. child removed from her custody. was on Wellbutrin but had sz and not on meds at this time. has appt with counselor 03/2015 Surgical History section (11/24/12) PCD @ 35w. IUGR. NRFH. [id number]. [facility]. 03/26/15 RCD. Pt arrived in labor and declined SUN. F. Jessica. Amputation 12/23/16;[facility]; RIGHT BELOW THE KNEE Family History Mother No problems noted. Father No problems noted. Brother No problems noted. Grandfather No problems noted. Grandfather No problems noted. Grandmother No problems noted. Grandmother No problems noted. Son No problems noted. Son No problems noted. Daughter No problems noted. Daughter No problems noted. Social History Smoking/Tobacco Use Status: Current every day Tobacco Type: cigarettes Smoking risk assessment performed?: Yes Alcohol Intake: current Alcohol Intake frequency: a few times a month Alcohol type: beer Drug use: Occasionally Substance use type: former substance user, marijuana, crack/cocaine and heroin Housing: house Do you feel safe at home: Yes Do you feel safe in your relationship?: Yes Additional Social history: pt states she is on methadone History History 4 Para 4 Hx # Term Pregnancies Multiple births Hx # Pregnancies Ectopic pregnancies AB induced Hx Number of Living Children 3 AB spontaneous Past Pregnancies Del. Date GA/Weeks # Preg Succ Route Wgt Sex Labor Lgth Anesthesia Location [facility] 12/28/20 25 Delivery Date: 12/28/20 Last Updated by: Roxanna Rocha LPN Patient transferred OB care to [facility] Course Vital Signs Vital signs: Vital Signs Temperature 37.0 C 03/19/23 16:57 Pulse 114 H 03/19/23 16:57 Blood Pressure 136/96 H 03/19/23 16:57 Pulse Oximetry 100 03/19/23 16:57 Temperature 37.0 C 03/19/23 16:57 Temperature Source Temporal Artery Scan 03/19/23 16:57 Pulse 114 H 03/19/23 16:57 Blood Pressure 136/96 H 03/19/23 16:57 Blood Pressure Position Sitting 03/19/23 16:57 Pulse Oximetry 100 03/19/23 16:57 Oxygen Delivery Method Room Air 03/19/23 16:57 Oxygen Flow Rate 0 03/19/23 16:57 Medical Decision Making 37 year old female presents to the ED with her friend who reports that she was in the truck just prior to arrival looked behind her and went still, then had a grand mal seizure lasting approximately 2 minutes, she then was real sleepy. She endorses coke today and alcohol, she is also taking methadone. Pmhx includes Hx of IVDA, RBKA, hyponatremia, PTSD, herpes, ADHD, endocarditis, depression, On initial exam she has no signs of trauma denies hitting her head, she does appear to be influenza and easily falls asleep. She is maintaining her airway vital signs are stable. [employer] baseball coach on phone to speak with patient and friend. Heart rate is responsive to liter of normal saline, she is no longer tachycardic. She is not hypertensive no tremors or evidence of alcohol withdrawal seizures. This could be related to the cocaine with methadone. She is not currently on antiepileptic medications. She does report that she has had a seizure in the past. Patient is somnolent, informed by set staff fitter and ED staff that patient's significant other is seen in and out of the room meeting with people in the parking lot. Security notified. Patient is maintaining her airway placed on pulse oximeter she is satting 95% on room air heart rate is 63, she does fall asleep easily. Will consider Narcan, due to somnolence. Unable to maintain a conversation at this time. 2044: Patient did respond to narcan, is up out of bed, opens the door of her room, she is c/o chills, still have not obtained a urine sample. Plan to discharge patient home with significant other. 2154: Patient ambulatory in department upon discharge. Discussed strict return instructions, home care, and follow up care. This text was generated using [employer] system, please disregard any oddities of phrase or misspellings. Medical Records Medical records reviewed: Yes I reviewed the patient's medical records. Imaging Data Radiologic Study: Imaging: CT Scan Radiologist's impression: CT HEAD WO EXAM: CT HEAD WO CLINICAL HISTORY: seizure. TECHNIQUE: Imaging Protocol: Axial computed tomography images with coronal and sagittal reformatted images were created and reviewed COMPARISON: CT CT HEAD CERVICAL SPINE WO from 12/10/2021 FINDINGS: Ventricles and Extra axial spaces: Normal in size and morphology for the patient's age. Hemorrhage: None. Cerebral parenchyma: Normal. Midline shift: None. Brainstem/Cerebellum: Normal. Calvarium: Normal. Visualized Paranasal sinuses/Mastoids: Clear. Soft Tissues: Unremarkable. IMPRESSION: No acute intracranial process. Lab Data Lab results reviewed: Yes I reviewed the patient's lab results. Labs: Laboratory Tests Range/Units 03/19/23 03/19/23 18:05 20:38 WBC (4.4-10.8) 10^3/uL 7.18 RBC (3.93-5.22) 10^6/uL 5.12 Hgb (11.2-15.7) g/dL 14.0 Hct (36.0-46.0) % 43.6 MCV (80-95) fL 85 MCH (27.0-33.0) pg 27.3 MCHC (32.0-36.0) % 32.1 RDW (11.7-14.6) % 14.5 Plt Count (130-400) 10^3/uL 443 H MPV (8.0-11.0) fL 8.7 Immature Gran % 0.3 Neutrophils % 70.5 Lymphocytes % 22.0 Monocytes % 3.5 Eosinophils % 3.3 Basophils % 0.4 Nucleated RBC % (0.0-0.3) % 0.0 Absolute Neutrophils (1.2-6.7) 10^3/uL 5.06 Absolute Lymphocytes (1.2-3.4) 10^3/uL 1.58 Absolute Monocytes (0.1-0.8) 10^3/uL 0.25 Absolute Eosinophils (0.0-0.7) 10^3/uL 0.24 Absolute Basophils (0.0-0.2) 10^3/uL 0.03 Sodium (136-145) mmol/L 136 Potassium (3.5-5.1) mmol/L 3.5 Chloride (98-107) mmol/L 98 Carbon Dioxide (21.0-32.0) mmol/L 31.9 Anion Gap (3-11) mmol/L 6.1 BUN (7-18) mg/dL 8 Creatinine (0.55-1.02) mg/dL 0.9 Est GFR (CKD-EPI 2020) (mL/min/1.73m2) 83.92 Glucose (74-106) mg/dL 102 Calcium (8.5-10.1) mg/dL 10.8 H Magnesium (1.8-2.4) mg/dL 2.6 H Total Bilirubin (0.2-1.0) mg/dL 0.2 AST (15-37) U/L 23 ALT (14-59) U/L 27 Alkaline Phosphatase (46-116) U/L 118 H Troponin I (< or =60) ng/L < 50 Cancelled Total Protein (6.4-8.2) g/dL 10.4 H Albumin (3.4-5.0) g/dL 4.4 TSH (0.36-3.74) uIU/mL 3.41 Salicylates (<2.8) mg/dL 3.0 Acetaminophen (10-30) ug/mL < 2 Ethyl Alcohol (<10) mg/dL < 3.0 Quality:SDOH Health Related Social Needs: No Data to Display Discharge Plan Disposition Patient Disposition: Home Condition: Improving Discharge Details Clinical Impression: Substance abuse, Seizure Primary Care Provider: Glenn Tinajero ED Provider: Jeannette Duffy [place] Meds and New Rx's Prescriptions: No Action gabapentin 800 mg tablet 800 mg PO QID Patient Comments: TAKE ONE TABLET BY MOUTH FOUR TIMES A DAY methadone 10 mg/mL Concentrate 105 mg PO DAILY Rx Instructions: CONFIRMED DOSE WITH LORIN 08/20/21 125MG QAM duloxetine 60 mg capsule,delayed release(DR/EC) 60 mg PO DAILY Patient Comments: Take 1 capsule by mouth once a day take 1 capsule by mouth daily naloxone 4 mg/actuation spray,non-aerosol 4 mg intranasal Q2M PRNQty: 2 12RF Rx Instructions: spray 1 dose into ONE nostril; alternate nostrils w each dose until help arrives ondansetron 4 mg tablet,disintegrating 4 mg PO Q8H PRNQty: 10 0RF methylphenidate HCl [Ritalin LA] 40 mg capsule,ER biphasic 50-50 40 mg PO DAILY Patient Comments: Take 1 capsule by mouth once a day furosemide 20 mg tablet 20 mg PO DAILY PRN PRN (Reason: Edema) Patient Comments: 1 tablet by mouth once a day as needed TAKE ONE TABLET BY MOUTH EVERY DAY as needed for edema Discharge Instructions Instructions: Generalized Tonic Clonic Seizures (ED) Additional Instructions: Please contact the [facility] for rehab options. Return to the ER for any further seizure-like activity or concerns. Follow up with primary care provider in 3-5 days. Return to ED sooner if any worsening or concerns. Increase oral fluids. Please take Tylenol or Ibuprofen with food every 4-6 hours as needed for pain and swelling. Referrals: [facility] [Outside] - 1 day (Please call) [facility] [Outside] Glenn Tinajero [Primary Care Provider] - 3 days
[2023-03-19] MEDS: Normal Saline 1,000 ML 1000 ML IV (18:09)
[2023-03-19 18:10] VITALS: O2SAT 97
[2023-03-19 18:12] VITALS: BP 114/64; PULSE 64; O2SAT 97
[2023-03-19 18:16] VITALS: BP 112/58; PULSE 64; O2SAT 96
[2023-03-19 18:18] LABS: Abs Immature Grans 0.02 10^3/uL (0.0-0.06); Absolute Basophil Count 0.03 10^3/uL (0.0-0.2); Absolute Eosinophil Count 0.24 10^3/uL (0.0-0.7); Absolute Lymphocyte Count 1.58 10^3/uL (1.2-3.4); Absolute Monocyte Count 0.25 10^3/uL (0.1-0.8); Absolute Neutrophil Count 5.06 10^3/uL (1.2-6.7); Basophils % 0.4; Eosinophils % 3.3; HCT 43.6 % (36.0-46.0); Immature Grans % 0.3; MCH 27.3 pg (27.0-33.0); MCHC 32.1 % (32.0-36.0); MCV 85 fL (80-95); MPV 8.7 fL (8.0-11.0); Monocytes % 3.5; Neutrophils % 70.5; Platelet Count 443 10^3/uL (130-400); RBC 5.12 10^6/uL (3.93-5.22); RDW 14.5 % (11.7-14.6); RDW-SD 45.2 fL; WBC 7.18 10^3/uL (4.4-10.8)
[2023-03-19 18:36] LABS: Troponin I < 50 ng/L (< or =60)
[2023-03-19 18:51] LABS: Acetaminophen < 2 ug/mL (10-30)
[2023-03-19 19:03] LABS: ALT 27 U/L (14-59); AST 23 U/L (15-37); Albumin 4.4 g/dL (3.4-5.0); Alkaline Phosphatase 118 U/L (46-116); Anion Gap 6.1 mmol/L (3-11); BUN 8 mg/dL (7-18); Bilirubin, Total 0.2 mg/dL (0.2-1.0); CO2 31.9 mmol/L (21.0-32.0); CREATININE 0.9 mg/dL (0.55-1.02); Calcium 10.8 mg/dL (8.5-10.1); Chloride 98 mmol/L (98-107); Estimated GFR 83.92 (mL/min/1.73m2); Glucose 102 mg/dL (74-106); Magnesium 2.6 mg/dL (1.8-2.4); Potassium 3.5 mmol/L (3.5-5.1); Sodium 136 mmol/L (136-145); TSH (W/Ref FT4) 3.41 uIU/mL (0.36-3.74); Total Protein 10.4 g/dL (6.4-8.2)
[2023-03-19 19:11] LABS: ETHANOL BLOOD < 3.0 mg/dL (<10)
[2023-03-19] MEDS: Naloxone 0.4 MG/ML VIAL IVP (20:40)
[2023-03-19 21:31] LABS: Bilirubin Negative (Negative); Blood Negative (Negative); Clarity Sl Cloudy (Clear); Glucose Negative (Negative); Ketones Negative (Negative); Leukocyte Esterase Negative (Negative); Nitrite Negative (Negative); Specific Gravity 1.015 (1.005-1.025); Urobilinogen 0.2 mg/dL (Up to 0.2)
[2023-03-19 21:56] LABS: *AMPHETAMINES SCREEN URINE Negative (Negative); *BARBITURATES SCREEN URINE Negative (Negative); *BENZODIAZEPINES SCREEN URINE Negative (Negative); Cannabinoids THC Negative (Negative); Cocaine Screen,Urine Positive (Negative); METHADONE URINE SCREEN Positive (Negative); OPIATES URINE SCREEN Negative (Negative); Tricyclic Antidepressants Negative (Negative)
== END 2023-03-19 21:57 | disposition home or self-care (01) ==
PROVIDERS: Emergency Provider Registered Nurse Emergency; PCP Physician Assistant
DX: G40.909 Epilepsy, unspecified, not intractable, without status epilepticus (principal); F19.90 Other psychoactive substance use, unspecified, uncomplicated; Z86.74 Personal history of sudden cardiac arrest; F17.210 Nicotine dependence, cigarettes, uncomplicated
CPT/HCPCS: 80053; 80307; 93005; 96360; 99284; 70450; 80320; 80329; 81003; 83735; 84443; 84484; 85025; 93010; J2310

== ENCOUNTER 2023-04-14 18:04 | Emergency (ER) | payer MEDICAID, SELFPAY ==
[2023-04-14] VITALS (7 sets, daily range): BP systolic 122; BP diastolic 75; PULSE 72–82; RESP 14–21; TEMP 39; O2SAT 97
--- NOTE | 2023-04-14 18:30 | DI.RAD_ITS ---
Exam(s) XR PORTABLE CHEST AP EXAM: XR PORTABLE CHEST AP CLINICAL HISTORY: fever. TECHNIQUE: 2D digital imaging was performed. COMPARISON: CR XR PORTABLE CHEST AP POST LINE from 12/10/2021 FINDINGS: Single AP portable view. Heart size is upper normal. The mediastinum is not widened. Nodular density over the right lung base is probably the breast nipple shadow. There is some platelike atelectasis or scarring in the left lung. No confluent infiltrates and no pl eural effusions. IMPRESSION: As above. No obvious acute infiltrates nor pleural effusions. DATA REPOSITORY: RADIATION DOSE DELIVERED:
[2023-04-14 18:32] LABS: Bilirubin Negative (Negative); Blood Negative (Negative); Clarity Clear (Clear); Glucose Negative (Negative); Ketones Negative (Negative); Leukocyte Esterase Negative (Negative); Nitrite Negative (Negative); Specific Gravity 1.015 (1.005-1.025); pH >= 9.0 (5-8)
[2023-04-14 18:38] LABS: Bacteria Negative HPF (Negative); C & S Indicated? No; Casts Negative LPF (Negative); Crystals Negative HPF (Negative); Epithelial Cells Rare HPF (Negative); Mucus Trace (Negative); RBC Negative HPF (0-2); WBC 0-2 HPF (0-5)
--- NOTE | 2023-04-14 19:30 | RT.EKG_ITS ---
APPROVED REPORT Exam: Resting ECG Reason for Exam: tachy Patient Location: E HR:74 bpm ECG Measurements Heart Rate 74 AXIS IN 143 P 83 QRSd 85 QRS 93 QT 390 T 56 QTc 433 Conclusion Sinus rhythm normal axis LVH no stemi
[2023-04-14] MEDS: Acetaminophen 500 MG TAB 1000 MG PO (19:48)
[2023-04-14] MEDS: Normal Saline 1,000 ML 1000 ML IV (19:48)
[2023-04-14] MEDS: Ketorolac 15 MG/ML VIAL 10 MG IVP (19:48)
[2023-04-14 20:01] LABS: Abs Immature Grans 0.06 10^3/uL (0.0-0.06); Absolute Eosinophil Count 0.03 10^3/uL (0.0-0.7); Absolute Lymphocyte Count 1.69 10^3/uL (1.2-3.4); Basophils % 0.2; Eosinophils % 0.2; HCT 31.4 % (36.0-46.0); HGB 10.4 g/dL (11.2-15.7); Immature Grans % 0.5; Lymphocytes % 12.7; MCH 27.7 pg (27.0-33.0); MCHC 33.1 % (32.0-36.0); MCV 84 fL (80-95); MPV 9.1 fL (8.0-11.0); Monocytes % 6.6; Neutrophils % 79.8; Platelet Count 202 10^3/uL (130-400); RBC 3.75 10^6/uL (3.93-5.22); RDW 14.6 % (11.7-14.6); RDW-SD 45.1 fL; WBC 13.27 10^3/uL (4.4-10.8)
[2023-04-14 20:02] LABS: Lactate 1.4 mmol/L (0.6-1.4)
[2023-04-14 20:08] LABS: ESR 52 mm/hr (0-20)
[2023-04-14 20:09] LABS: Absolute Basophil Count 0.03 10^3/uL (0.0-0.2); Absolute Monocyte Count 0.88 10^3/uL (0.1-0.8); Absolute Neutrophil Count 10.59 10^3/uL (1.2-6.7)
--- NOTE | 2023-04-14 20:10 | DI.VRAD_ITS ---
PROCEDURE INFORMATION: Exam: XR Chest Exam date and time: 04/14/2023 7:41 PM Age: 37 years old Clinical indication: Fever TECHNIQUE: Imaging protocol: Radiologic exam of the chest. Views: 1 view. COMPARISON: CR XR PORTABLE CHEST AP POST LINE 12/10/2021 5:09 PM FINDINGS: Lungs: No alveolar infiltrate. A few minimal areas of scarring within each lung. Pleural spaces: No pleural fluid collection. No pneumothorax. Heart/Mediastinum: Normal heart size. Bones/joints: Unremarkable for patient age. Soft tissues: Bilateral nipple shadows superimposed over each lower lung zone. IMPRESSION: No acute infiltrate. A few minimal areas of scarring within each lung. Dictated and Authenticated by: August Granados MD. Ordering:IRMA Hartman MD
[2023-04-14 20:20] LABS: C-Reactive Protein 13.06 mg/dL (<or=0.5)
[2023-04-14 20:24] LABS: ALT 154 U/L (14-59); AST 78 U/L (15-37); Albumin 2.8 g/dL (3.4-5.0); Alkaline Phosphatase 81 U/L (46-116); Anion Gap 9.3 mmol/L (3-11); BUN 11 mg/dL (7-18); Bilirubin, Total 0.5 mg/dL (0.2-1.0); CO2 25.7 mmol/L (21.0-32.0); CREATININE 0.8 mg/dL (0.55-1.02); Calcium 8.1 mg/dL (8.5-10.1); Chloride 99 mmol/L (98-107); Estimated GFR 96.66 (mL/min/1.73m2); Glucose 132 mg/dL (74-106); Sodium 134 mmol/L (136-145); Total Protein 6.5 g/dL (6.4-8.2)
[2023-04-14 20:25] LABS: COVID-19 PCR Negative (Negative); Influenza A PCR Negative (Negative); Influenza B PCR Negative (Negative); RSV PCR Negative (Negative)
[2023-04-14 20:26] LABS: Source NASOPHARYNX
[2023-04-14 20:44] LABS: Procalcitonin 0.4 ng/mL
--- NOTE | 2023-04-14 21:21 | ED.GENADUL_ITS ---
HPI General Date/Time Provider Initiated Documentation: 04/14/23 18:07 . Limitations to Documentation: no limitations . Information obtained by: patient . HPI Narrative: 37-year-old female with past medical history of severe opiate dependence, right lower extremity amputation, methadone maintenance therapy presents for evaluation of right side pain. Reports this has been ongoing since yesterday. She states that pain is severe, constant, worse with touching the area. She is worried that her kidneys are infected. She does not have any chest pain cough or shortness of breath. She did not know that she had a fever prior to today. She reports that there is a spot on her right stump that is painful. She states that she is lost a lot of weight and her prosthesis does not fit very well and so it rubs against her leg. She reports that she is still currently using IV injection drugs. Last use was this week. Related Data Home Medications Medication Instructions Recorded Confirmed gabapentin 800 mg tablet 800 mg PO QID 06/02/21 04/14/23 methadone 10 mg/mL oral concentrate 120 mg PO DAILY 06/02/21 04/14/23 furosemide 20 mg tablet 20 mg PO DAILY PRN PRN Edema 12/03/22 04/14/23 methylphenidate HCl 40 mg biphasic 40 mg PO DAILY 12/03/22 04/14/23 50-50 capsule,extended release (Ritalin LA) duloxetine 60 mg capsule,delayed 60 mg PO DAILY 12/22/22 04/14/23 release naloxone 4 mg/actuation nasal spray 4 mg intranasal Q2M PRN #2 ea 12/25/22 04/14/23 Previous Rx's Medication Instructions Recorded naloxone 4 mg/actuation nasal spray 4 mg intranasal Q2M PRN #2 ea 12/25/22 Allergies Allergy/AdvReac Type Severity Reaction Status Date / Time bupropion HCl AdvReac Intermediate Contraindic Verified 03/19/23 17:00 [From Wellbutrin SR] ated General Stated Complaint: FlankPain CELESTE: 3 Exam Narrative Exam Narrative: Review of Systems: All systems reviewed & are unremarkable except as noted in HPI and below Well-developed, no acute distress, very disheveled + Febrile NCAT PERRL, normal conjunctiva RRR, no murmurs Unlabored respiratory effort, clear breath sounds bilaterally no crackles Nondistended abdomen , nontender, no CVA tenderness Extremities w/o deformity, no cyanosis, no edema Right lower extremity BKA, there are some scabs on the stump, there is a small area of a one by one cm of erythema, no induration, no fluctuance, no drainage but it is tender Right flank with no skin changes no focal neurologic deficits Appropriate mood and affect Course Vital Signs Vital signs: Vital Signs Temperature 39 C H 04/14/23 18:11 Pulse 82 04/14/23 18:11 Respiratory Rate 21 04/14/23 18:11 Blood Pressure 122/75 04/14/23 18:11 Pulse Oximetry 97 04/14/23 18:11 Temperature 39 C H 04/14/23 18:28 Temperature Source Oral 04/14/23 18:28 Pulse 82 04/14/23 18:28 Pulse 72 04/14/23 20:30 Respiratory Rate 16 04/14/23 20:30 Respiratory Effort Normal, Non-Labored 04/14/23 18:21 Blood Pressure 122/75 04/14/23 18:28 Blood Pressure Position Sitting 04/14/23 18:28 Pulse Oximetry 97 04/14/23 18:28 Oxygen Delivery Method Room Air 04/14/23 18:28 Oxygen Flow Rate 0 04/14/23 18:28 Pain Level 8 04/14/23 18:28 Lab/Test Results Lab/Test Results: 04/14/23 19:37 Blood Blood Culture - Pending 04/14/23 18:38 Blood Blood Culture - Pending Laboratory Tests Range/Units 04/14/23 04/14/23 04/14/23 18:19 19:33 19:35 WBC (4.4-10.8) 10^3/uL 13.27 H RBC (3.93-5.22) 10^6/uL 3.75 L Hgb (11.2-15.7) g/dL 10.4 L Hct (36.0-46.0) % 31.4 L MCV (80-95) fL 84 MCH (27.0-33.0) pg 27.7 MCHC (32.0-36.0) % 33.1 RDW (11.7-14.6) % 14.6 Plt Count (130-400) 10^3/uL 202 MPV (8.0-11.0) fL 9.1 Immature Gran % 0.5 Neutrophils % 79.8 Lymphocytes % 12.7 Monocytes % 6.6 Eosinophils % 0.2 Basophils % 0.2 Nucleated RBC % (0.0-0.3) % 0.0 Absolute Neutrophils (1.2-6.7) 10^3/uL 10.59 H Absolute Lymphocytes (1.2-3.4) 10^3/uL 1.69 Absolute Monocytes (0.1-0.8) 10^3/uL 0.88 H Absolute Eosinophils (0.0-0.7) 10^3/uL 0.03 Absolute Basophils (0.0-0.2) 10^3/uL 0.03 ESR (0-20) mm/hr 52 H VBG Lactate (0.6-1.4) mmol/L 1.4 Sodium (136-145) mmol/L 134 L Potassium (3.5-5.1) mmol/L 4.0 Chloride (98-107) mmol/L 99 Carbon Dioxide (21.0-32.0) mmol/L 25.7 Anion Gap (3-11) mmol/L 9.3 BUN (7-18) mg/dL 11 Creatinine (0.55-1.02) mg/dL 0.8 Est GFR (CKD-EPI 2020) (mL/min/1.73m2) 96.66 Glucose (74-106) mg/dL 132 H Calcium (8.5-10.1) mg/dL 8.1 L Total Bilirubin (0.2-1.0) mg/dL 0.5 AST (15-37) U/L 78 H ALT (14-59) U/L 154 H Alkaline Phosphatase (46-116) U/L 81 C-Reactive Protein (<or=0.5) mg/dL 13.06 H Total Protein (6.4-8.2) g/dL 6.5 Albumin (3.4-5.0) g/dL 2.8 L Procalcitonin ng/mL 0.4 Urine Color (Yellow) Yellow Urine Clarity (Clear) Clear Urine pH (5-8) >= 9.0 H Ur Specific [place] (1.005-1.025) 1.015 Urine Protein (Negative) mg/dL 30 H Urine Ketones (Negative) mg/dL Negative Urine Blood (Negative) Negative Urine Nitrite (Negative) Negative Urine Bilirubin (Negative) Negative Urine Urobilinogen (Up to 0.2) mg/dL 1.0 H Ur Leukocyte Esterase (Negative) Negative Urine RBC (0-2) HPF Negative Urine WBC (0-5) HPF 0-2 Ur Epithelial Cells (Negative) HPF Rare Urine Crystals (Negative) HPF Negative Urine Bacteria (Negative) HPF Negative Urine Casts (Negative) LPF Negative Urine Mucus (Negative) Trace Ur Culture Indicated? No Urine Glucose (Negative) mg/dL Negative COVID-19 Source NASOPHARYNX SARS-CoV-2 (PCR) (Negative) Negative Influenza Type A (PCR) (Negative) Negative Influenza Type B (PCR) (Negative) Negative RSV (PCR) (Negative) Negative POC- Test(urine) Negative Medical Decision Making Emergent evaluation of acute febrile illness and right flank pain. Differential includes viral illness, UTI, pyelonephritis. The area of tenderness on her right stump is likely from irritation from the prosthesis and not infection, I do not appreciate abscess and do not think that this area would cause her to have a fever. She has no skin changes on the area of her right flank despite significant tenderness with light touch, could be early shingles but currently no signs of that. Given her fever and history of IV drug use and history of endocarditis, lab work will be obtained including blood cultures Lab work and cultures reviewed. She does have leukocytosis. Mild anemia. Her ESR is slightly elevated at 52, CRP slightly elevated at 13. Her procalcitonin is not elevated. Her urine is not infected. Her viral testing is negative. Chest x-ray obtained, there is no consolidative process or signs of heart failure. I have a high suspicion for endocarditis. I discussed this with the patient and at this time she does not want to stay in the hospital. Blood cultures have been sent and the patient understands that if her cultures are positive she needs to return to the emergency department immediately for further treatment. She he has the capacity to make this medical decision and decide if she wants to stay in the hospital at this time. The patient understands to return to the emergency department if she has persistent fevers. If she has any new additional symptoms of chest pain or shortness of breath. Any other concerns and the patient should have a low threshold for returning to the emergency department Medical Records Medical records reviewed: Yes I reviewed the patient's medical records. Lab Data Lab results reviewed: Yes I reviewed the patient's lab results. Quality:[facility] Health Related Social Needs: No Data to Display PFSH All Active Problems Acute flank pain (Acute) Seizure (Acute) Substance abuse (Acute) Fall (Acute) Methadone maintenance therapy patient (Acute) Cellulitis of left foot (Acute) Postop check (Acute) Wound infection (Acute) Wound dehiscence (Acute) Cardiac asystole (Acute) Hepatitis C (Chronic) Mild tricuspid regurgitation (Acute) Anemia (Chronic) Localized swelling of left lower extremity (Acute) Cellulitis (Acute) Smoker (Acute) Viral illness (Acute) History of prior with IUGR (Acute 01/11/15) History of kidney injury (Acute 01/17/16) Acute January, History of drug abuse (Acute 01/17/16) In IP treatment at [place], no longer on methadone as of 01/17/16. Family court is close to resolved - will end . She is expecting 1st daughter to come home. Depression (Acute 01/11/15) Chronic hepatitis C without hepatic coma (Chronic 01/11/15) Cardiomyopathy (Chronic 01/22/16) Anemia of chronic disease (Acute 01/17/16) ADHD, hyperactive-impulsive type (Chronic 05/14/16) Insomnia (Acute) DVT prophylaxis (Acute) Fever (Acute) Prepatellar bursitis of right knee (Acute) Anxiety (Chronic) Anemia (Chronic) Opioid dependence (Chronic) Mitral regurgitation (Chronic) Edema (Acute) Medical History Lack of intravenous access IV drug user Left posterior fascicular block (LPFB) RBBB Acute respiratory failure with hypoxia Fungemia PEGGY (acute kidney injury) Lactic acidosis Closed head injury Metabolic acidosis Hyperkalemia Cardiac arrest with successful resuscitation Pulmonary nodules Anemia Scalded skin syndrome Endocarditis Sepsis Bacteremia Intractable low back pain Hyponatremia Pneumonia Cellulitis of left hand Cellulitis of hand, right Alcohol abuse History of depression Hx of cocaine abuse Personality disorder Herpes, vulvar PTSD (post-traumatic stress disorder) ADHD Amputation of right foot Paresthesia of both hands COVID-19 virus infection Effusion, right knee Dehydration Subacute endocarditis (01/22/16) MSSA endocarditis January, examination or test, positive result Pleural effusion, bilateral (01/22/16) Bacterial vaginosis (05/24/13) Rx with Metronidazole cream given 04/19/15. HSV infection Hx of infant who one week after . ? HSV or H1N1 infection. Pt has been on prophylaxis with pregnancies. Depression difficulty bonding with 2nd child. child removed from her custody. was on Wellbutrin but had sz and not on meds at this time. has appt with counselor 03/2015 Surgical History section (11/24/12) PCD @ 35w. IUGR. NRFH. [id number]. [facility]. 03/26/15 RCD. Pt arrived in labor and declined SUN. [facility]. [facility]. Amputation 12/23/16;[facility]; RIGHT BELOW THE KNEE Family History Mother No problems noted. Father No problems noted. Brother No problems noted. Grandfather No problems noted. Grandfather No problems noted. Grandmother No problems noted. Grandmother No problems noted. Son No problems noted. Son No problems noted. Daughter No problems noted. Daughter No problems noted. Social History Smoking/Tobacco Use Status: Current every day Tobacco Type: cigarettes Smoking risk assessment performed?: Yes Alcohol Intake: current Alcohol Intake frequency: a few times a month Alcohol type: beer Drug use: Occasionally Substance use type: former substance user, marijuana, crack/cocaine and heroin Details: haven't used recreationally drugs for few days starting treatment Thursday. CHINO,RN 04/14/23 Housing: house Do you feel safe at home: Yes Do you feel safe in your relationship?: Yes Additional Social history: pt states she is on methadone History History 4 Para 4 Hx # Term Pregnancies Multiple births Hx # Pregnancies Ectopic pregnancies AB induced Hx Number of Living Children 3 AB spontaneous Past Pregnancies Del. Date GA/Weeks # Preg Succ Route Wgt Sex Labor Lgth Anesth esia Location [facility] 12/28/20 25 Delivery Date: 12/28/20 Last Updated by: Roxanna Rocha LPN Patient transferred OB care to [facility] PAWSS Have you Been Recently Intoxicated or Drunk Within the Last 30 days?: No Have you Ever Experienced Previous Episodes of Alcohol Withdrawal?: No Have you ever Experienced Withdrawal Seizures?: No Have you ever Experienced Delirium Tremens(DT)s?: No Have you ever undergone Alcohol Rehabilitation Treatment (i.e, inpt ot outpatient treatment programs)?: No Have you ever Experienced Blackouts?: No Have you ever Combined Alcohol with other Downers within the last 90 days?: No Have you ever Combined Alcohol with any other Substance of Abuse during the last 90 days?: No Result: 0 Discharge Plan Disposition Patient Disposition: Home Discharge Details Clinical Impression: Fever, Methadone maintenance therapy patient, Substance abuse, Acute flank pain Primary Care Provider: Glenn Tinajero ED Provider: Kayla Wiley Home Meds and New Rx's Prescriptions: No Action gabapentin 800 mg tablet 800 mg PO QID Patient Comments: TAKE ONE TABLET BY MOUTH FOUR TIMES A DAY methadone 10 mg/mL Concentrate 120 mg PO DAILY Rx Instructions: CONFIRMED DOSE WITH LORIN 08/20/21 125MG QAM duloxetine 60 mg capsule,delayed release(DR/EC) 60 mg PO DAILY Patient Comments: Take 1 capsule by mouth once a day take 1 capsule by mouth daily naloxone 4 mg/actuation spray,non-aerosol 4 mg intranasal Q2M PRNQty: 2 12RF Rx Instructions: spray 1 dose into ONE nostril; alternate nostrils w each dose until help arrives methylphenidate HCl [Ritalin LA] 40 mg capsule,ER biphasic 50-50 40 mg PO DAILY Patient Comments: Take 1 capsule by mouth once a day furosemide 20 mg tablet 20 mg PO DAILY PRN PRN (Reason: Edema) Patient Comments: 1 tablet by mouth once a day as needed TAKE ONE TABLET BY MOUTH EVERY DAY as needed for edema Discharge Instructions Instructions: Fever in Adults (ED) Additional Instructions: If fever persists, you develop chest pain or shortness of breath you need to return to the emergency department for reevaluation. If your cultures are positive, you will be contacted so that you can return to the emergency department for treatment. We have not ruled out that you might have endocarditis, so please return if there are any concerns
--- NOTE | 2023-04-15 12:10 | NUR.NOTE ---
Patient called asking if her cultures were done yet she still felt feverish. The blood cultures are not done. Told her it could be 24 to 48 hrs. If she feels worse she can return to the ED. Pt gave us a 3rd phone number to reach her [phone]. Nursing Note:
== END 2023-04-14 20:56 | disposition home or self-care (01) ==
PROVIDERS: Emergency Provider Emergency Medicine; PCP Physician Assistant
DX: R50.9 Fever, unspecified (principal); F11.20 Opioid dependence, uncomplicated; R10.9 Unspecified abdominal pain; R00.0 Tachycardia, unspecified; Z86.74 Personal history of sudden cardiac arrest; Z11.52 Encounter for screening for COVID-19; Z89.431 Acquired absence of right foot; F17.210 Nicotine dependence, cigarettes, uncomplicated
CPT/HCPCS: 80053; 84145; 85652; 87040; 87637; 93005; 96374; 99285; 71045; 81003; 81015; 83605; 85025; 86140; 93010; 99284; J1885

== ENCOUNTER 2023-05-29 13:45 | Outpatient (REF) | payer MEDICAID, SELFPAY ==
[2023-05-29 16:24] LABS: ALT 160 U/L (14-59); AST 31 U/L (15-37); Albumin 4.1 g/dL (3.4-5.0); Alkaline Phosphatase 141 U/L (46-116); Anion Gap 11.6 mmol/L (3-11); BUN 10 mg/dL (7-18); Bilirubin, Total 0.9 mg/dL (0.2-1.0); CO2 24.4 mmol/L (21.0-32.0); CREATININE 0.6 mg/dL (0.55-1.02); Calcium 9.2 mg/dL (8.5-10.1); Chloride 102 mmol/L (98-107); Estimated GFR 117.75 (mL/min/1.73m2); Glucose 78 mg/dL (74-106); Potassium 4.6 mmol/L (3.5-5.1); Sodium 138 mmol/L (136-145); Total Protein 8.3 g/dL (6.4-8.2)
== END 2023-05-29 13:46 | disposition home or self-care (01) ==
LOC: NCHCN 13:45
PROVIDERS: PCP Physician Assistant; Visit Provider Physician Assistant
DX: B18.2 Chronic viral hepatitis C (principal)
CPT/HCPCS: 80053

== ENCOUNTER 2023-08-25 00:52 | Inpatient (IN) | payer MEDICAID, SELFPAY ==
[2023-08-25] VITALS (40 sets, daily range): BP systolic 115–146; BP diastolic 6–96; PULSE 51–86; RESP 11–27; TEMP 36.1–37.4; O2SAT 95–100
--- NOTE | 2023-08-25 00:58 | ED.GENADUL_ITS ---
Discharge Plan Discharge Details Chief Complaint: Cellulitis Clinical Impression: Effusion of knee joint, left, Methadone maintenance therapy patient, IVDU (intravenous drug user) Primary Care Provider: Glenn Tinajero ED Provider: Mohsen Macedo Home Meds and New Rx's Prescriptions: No Action gabapentin 800 mg tablet 800 mg PO QID Patient Comments: TAKE ONE TABLET BY MOUTH FOUR TIMES A DAY methadone 10 mg/mL Concentrate 120 mg PO DAILY Rx Instructions: CONFIRMED DOSE WITH BAART 08/20/21 125MG QAM duloxetine 60 mg capsule,delayed release(DR/EC) 60 mg PO DAILY Patient Comments: Take 1 capsule by mouth once a day take 1 capsule by mouth daily naloxone 4 mg/actuation spray,non-aerosol 4 mg intranasal Q2M PRNQty: 2 12RF Rx Instructions: spray 1 dose into ONE nostril; alternate nostrils w each dose until help arrives methylphenidate HCl [Ritalin LA] 40 mg capsule,ER biphasic 50-50 40 mg PO DAILY Patient Comments: Take 1 capsule by mouth once a day furosemide 20 mg tablet 20 mg PO DAILY PRN PRN (Reason: Edema) Patient Comments: 1 tablet by mouth once a day as needed TAKE ONE TABLET BY MOUTH EVERY DAY as needed for edema HPI General Mode of arrival: EMS . Date/Time Provider Initiated Documentation: 08/25/23 00:56 . Limitations to Documentation: no limitations . Information obtained by: patient, RN notes reviewed and old records reviewed . HPI Narrative: Patient presents to ED with left lower extremity pain since waking up today. At this point unable to walk or bear weight. Knee is swollen and the pain seems to be centered in that area. The whole leg however is painful. She is a current IV drug abuser. She had a right BKA due to osteomyelitis in the past. She denies any fever or chills, cough, shortness of breath, chest pain, abdominal pain. She last used the night before and actually injected in to the left leg. Pain has become unbearable and she is unable to tolerate any type of range of motion in the knee. Related Data Home Medications Medication Instructions Recorded Confirmed gabapentin 800 mg tablet 800 mg PO QID 06/02/21 08/25/23 methadone 10 mg/mL oral concentrate 120 mg PO DAILY 06/02/21 08/25/23 furosemide 20 mg tablet 20 mg PO DAILY PRN PRN Edema 12/03/22 08/25/23 methylphenidate HCl 40 mg biphasic 40 mg PO DAILY 12/03/22 08/25/23 50-50 capsule,extended release (Ritalin LA) duloxetine 60 mg capsule,delayed 60 mg PO DAILY 12/22/22 08/25/23 release naloxone 4 mg/actuation nasal spray 4 mg intranasal Q2M PRN #2 ea 12/25/22 08/25/23 Previous Rx's Medication Instructions Recorded naloxone 4 mg/actuation nasal spray 4 mg intranasal Q2M PRN #2 ea 12/25/22 Allergies Allergy/AdvReac Type Severity Reaction Status Date / Time bupropion HCl AdvReac Intermediate Contraindic Verified 08/25/23 00:58 [From Wellbutrin SR] ated General Stated Complaint: Cellulitis CELESTE: 3 Review of Systems Narrative: Per HPI Exam Narrative Exam Narrative: Const: WDWN female in NAD. VS per triage. HEENT: NC/AT. Normal facial exam. Neck: Supple. Trachea midline. Lungs: Normal respiratory effort. Cor: Good radial pulses. GI: Soft/ND Neuro: A+O x 3. Normal speech, mentation. Cranial nerves II - XII grossly intact. No gross motor or sensory deficit. Ext: RLE BKA. LLE with markedly swollen knee and very limited ROM both passive and active. No erythema or rash. No tenderness involving thigh or calf. Able to roll hip and flex/extend ankle. Skin: No cellulitis. Multiple track gonzalez on all extremities. Course Vital Signs Vital signs: Vital Signs Temperature 99.4 F 08/25/23 00:51 Pulse 79 08/25/23 00:51 Respiratory Rate 16 08/25/23 00:51 Blood Pressure 143/88 H 08/25/23 00:51 Pulse Oximetry 97 08/25/23 00:51 Temperature 99.4 F 08/25/23 00:51 Pulse 79 08/25/23 00:51 Respiratory Rate 16 08/25/23 00:51 Respiratory Effort Normal 08/25/23 00:56 Blood Pressure 143/88 H 08/25/23 00:51 Pulse Oximetry 97 08/25/23 00:51 Oxygen Delivery Method Room Air 08/25/23 00:51 Oxygen Flow Rate 0 08/25/23 00:51 Pain Level 10 08/25/23 00:51 Procedures Joint Aspiration/Injection Joint Asp./Inject. 1: Side of body: left Joint Aspirated: knee Ultrasound Guidance: No Skin Prep: Povidone-Iodine1% Local Anesthetic: Lidocaine 1% and with Epi Amount of anesthesia used (mL): 2 Needle Size Used: 18G Fluid Obtained: turbid Total fluid obtained (mL): 20 Patient Tolerated Procedure: well Complications: none Medical Decision Making Patient presenting with left leg pain and swelling involving the knee. She is a active IV drug abuser. She has had a right BKA because of osteomyelitis. Suspect septic joint at this point. Does not appear to have muscle tenderness, skin change other than track gonzalze to suggest necrotizing fasciitis or cellulitis. Will need to obtain ultrasound-guided IV access as she is a very difficult patient to obtain access on. Laboratory studies including blood cultures sent. Fluids started. Acetaminophen and ketorolac given for pain. Patient verbally consented to left knee joint aspiration. Joint fluid obtained is a hazy yellow. Vancomycin and ceftriaxone ordered once cultures and the aspiration completed. Labs are notable for a white count of 10.9. Chemistries unremarkable. Synovial fluid with 18,000 white cells that are 95% polynuclear with no crystals. No bacteria noted on Gram stain. Discussed with orthopedics, Dr. Ortiz. Sheridan that he WBC count on the joint fluid is too low to be consistent with septic arthritis. Requesting tickborne panel, arthritis panel, CRP, ESR, GC/chlamydia PCR to be added on to testing. X-rays of the left knee ordered. Confirmed patient's methadone dosing with clinic. I have ordered her daily dose of methadone which is [address] Ortiz to review films and labs but patient likely to be admitted to hospitalist for management of pain and pending result of fluid aspirate culture. Signed out to oncoming ED physician Dr. Fitzpatrick. Medical Records Medical records reviewed: Yes I reviewed the patient's medical records. Medical records narrative: Records related to previous BKA and history of endocarditis Lab Data Lab results reviewed: Yes I reviewed the patient's lab results. Quality:[facility] Health Related Social Needs: No Data to Display PFSH All Active Problems (Updated 08/25/23 @ 07:32 by Mohsen Macedo MD) IVDU (intravenous drug user) (Acute) Effusion of knee joint, left (Acute) Fall (Acute) Methadone maintenance therapy patient (Acute) Cellulitis of left foot (Acute) Postop check (Acute) Wound infection (Acute) Wound dehiscence (Acute) Cardiac asystole (Acute) Hepatitis C (Chronic) Mild tricuspid regurgitation (Acute) Anemia (Chronic) Localized swelling of left lower extremity (Acute) Cellulitis (Acute) Smoker (Acute) Viral illness (Acute) History of prior with IUGR (Acute 01/11/15) History of kidney injury (Acute 01/17/16) Acute January, History of drug abuse (Acute 01/17/16) In IP treatment at [place], no longer on methadone as of 01/17/16. Family court is close to resolved - will end . She is expecting 1st daughter to come home. Depression (Acute 01/11/15) Chronic hepatitis C without hepatic coma (Chronic 01/11/15) Cardiomyopathy (Chronic 01/22/16) Anemia of chronic disease (Acute 01/17/16) ADHD, hyperactive-impulsive type (Chronic 05/14/16) Insomnia (Acute) DVT prophylaxis (Acute) Fever (Acute) Prepatellar bursitis of right knee (Acute) Anxiety (Chronic) Anemia (Chronic) Opioid dependence (Chronic) Mitral regurgitation (Chronic) Edema (Acute) Medical History Lack of intravenous access IV drug user Left posterior fascicular block (LPFB) RBBB Fungemia Closed head injury Cardiac arrest with successful resuscitation Pulmonary nodules Anemia Scalded skin syndrome Alcohol abuse Hx of cocaine abuse Personality disorder Herpes, vulvar PTSD (post-traumatic stress disorder) ADHD Subacute endocarditis (01/22/16) MSSA endocarditis January, HSV infection Hx of infant who one week after . ? HSV or H1N1 infection. Pt has been on prophylaxis with pregnancies. Depression difficulty bonding with 2nd child. child removed from her custody. was on Wellbutrin but had sz and not on meds at this time. has appt with counselor 03/2015 Surgical History section (11/24/12) PCD @ 35w. IUGR. NRFH. [id number]. [facility]. 03/26/15 RCD. Pt arrived in labor and declined SUN. F. Jessica. Amputation 12/23/16;[facility]; RIGHT BELOW THE KNEE Family History Mother No problems noted. Father No problems noted. Brother No problems noted. Grandfather No problems noted. Grandfather No problems noted. Grandmother No problems noted. Grandmother No problems noted. Son No problems noted. Son No problems noted. Daughter No problems noted. Daughter No problems noted. Social History Smoking/Tobacco Use Status: Current every day Tobacco Type: cigarettes Smoking risk assessment performed?: Yes Alcohol Intake: current Alcohol Intake frequency: a few times a month Alcohol type: beer Drug use: Occasionally Substance use type: former substance user, marijuana, crack/cocaine and heroin Details: haven't used recreationally drugs for few days starting treatment Thursday. CHINO,RN 04/14/23 Housing: house Do you feel safe at home: Yes Do you feel safe in your relationship?: Yes Additional Social history: pt states she is on methadone History History 4 Para 4 Hx # Term Pregnancies Multiple births Hx # Pregnancies Ectopic pregnancies AB induced Hx Number of Living Children 3 AB spontaneous Past Pregnancies Del. Date GA/Weeks # Preg Succ Route Wgt Sex Labor Lgth Anesth esia Location Prov [facility] 12/28/20 25 Delivery Date: 12/28/20 Last Updated by: Roxanna Rocha LPN Patient transferred OB care to [facility]
[2023-08-25 01:28] LABS: Abs Immature Grans 0.04 10^3/uL (0.0-0.06); Absolute Basophil Count 0.03 10^3/uL (0.0-0.2); Absolute Eosinophil Count 0.04 10^3/uL (0.0-0.7); Absolute Lymphocyte Count 0.91 10^3/uL (1.2-3.4); Absolute Monocyte Count 0.72 10^3/uL (0.1-0.8); Basophils % 0.3 %; Eosinophils % 0.4 %; HCT 39.9 % (36.0-46.0); HGB 13.2 g/dL (11.2-15.7); Immature Grans % 0.4 %; Lymphocytes % 8.4 %; MCH 29.2 pg (27.0-33.0); MCHC 33.1 % (32.0-36.0); MCV 88 fL (80-95); MPV 8.9 fL (8.0-11.0); Monocytes % 6.6 %; Neutrophils % 83.9 %; Platelet Count 287 10^3/uL (130-400); RBC 4.52 10^6/uL (3.93-5.22); RDW 13.2 % (11.7-14.6); RDW-SD 42.6 fL; WBC 10.88 10^3/uL (4.4-10.8)
[2023-08-25] MEDS: ACETAMINOPHEN 1,000 MG/100 ML BTL 400 MG IVPB (01:28)
[2023-08-25] MEDS: Lactated Ringers 500 ML 1000 ML IV (01:29)
[2023-08-25] MEDS: Ketorolac 30 MG/ML VIAL IVP (01:29)
[2023-08-25] MEDS: cefTRIAXone 1 GM/50 ML BAG IVPB (01:30)
[2023-08-25 01:31] LABS: Absolute Neutrophil Count 9.13 10^3/uL (1.2-6.7)
[2023-08-25 01:46] LABS: ALT 23 U/L (14-59); AST 24 U/L (15-37); Albumin 3.8 g/dL (3.4-5.0); Alkaline Phosphatase 126 U/L (46-116); Anion Gap 12.3 mmol/L (3-11); BUN 10 mg/dL (7-18); Bilirubin, Total 0.6 mg/dL (0.2-1.0); CO2 25.7 mmol/L (21.0-32.0); CREATININE 0.7 mg/dL (0.55-1.02); Chloride 98 mmol/L (98-107); Estimated GFR 112.75 (mL/min/1.73m2); Glucose 133 mg/dL (74-106); Potassium 4.1 mmol/L (3.5-5.1); Sodium 136 mmol/L (136-145); Total Protein 8.7 g/dL (6.4-8.2)
[2023-08-25 02:00] LABS: Lab Add On Test DONE
[2023-08-25 02:22] LABS: INR 1.1 (0.9-1.1); PTT Activated 27.2 sec (23.6-32.8); Prothrombin Time 10.6 sec (9.1-11.1)
[2023-08-25 02:35] LABS: Clarity Cloudy; Nucleated Cells 18040 uL (0)
[2023-08-25 02:37] LABS: HCG Qual (Serum) Negative
[2023-08-25] MEDS: VANCOMYCIN 1,300 MG in Normal Saline 500 ML 333.3333 MG IVPB (02:44)
[2023-08-25 03:03] LABS: Crystals (BF) No Crystals seen
[2023-08-25 03:08] LABS: Mononuclear Cells 5 %; Polynuclear Cells 95 %
--- NOTE | 2023-08-25 06:00 | DI.RAD_ITS ---
Exam(s) XR KNEE LT 3V AP,LAT,PORTER EXAM: XR KNEE LT 3V AP,LAT,PORTER CLINICAL HISTORY: knee pain/swelling. TECHNIQUE: 2D digital imaging was performed. COMPARISON: CR,XR XR KNEE RT 4V AP,LAT,PORTER,PAT from 10/13/2021 FINDINGS: 3 views No evidence of fracture. There is joint effusion noted which may signify an internal derangement. T here is also swelling anterior to the patella. No evidence of patellar fracture. Joint spaces in the are normal. IMPRESSION: Soft tissue swelling anterior to the patella as well as joint effusion. There are no acute osseous f indings. DATA REPOSITORY: RADIATION DOSE DELIVERED:
[2023-08-25 06:46] LABS: ESR 31 mm/hr (0-20)
[2023-08-25 07:00] LABS: C-Reactive Protein 6.16 mg/dL (<or=0.5); Uric Acid 3.9 mg/dL (2.6-6.0)
--- NOTE | 2023-08-25 07:23 | NUR.NOTE ---
Called [facility] to verify methadone dose. Nurse stated she comes daily for her 150 mg dose, but missed yesterday. Dr. Macedo advised.
--- NOTE | 2023-08-25 07:35 | OCONE_ITS ---
Date of service: 08/25/23 Time of Service: 12:00 Assessment and Plan Assessment and plan (1) Effusion of knee joint, left: Status: Acute Assessment and plan: 38-year-old female with left knee pain and effusion due to unknown cause No orthopedic surgeon on-call today, but reviewed with the emergency room doctor. High risk patient, but vital signs, lab work, aspiration, and clinical exam do not seem consistent with [place] joint acute septic arthritis. Recommend observation versus transfer to tertiary care facility if truly concerned about septic arthritis given lack of orthopedic surgery coverage today and complex infectious disease and social history. Otherwise, hospital medical admission reasonable with empiric antibiotics for Lyme disease and organism(s) that caused previous infections and amputation on the contralateral leg. NSAIDs for reactive arthrtis. Serial exams and repeat infectious/inflammatory markers. Follow knee aspiration results. Patient reports that she had been clean from any IV drug use for the past 45 days, relapsed with IV heroin over the past 2 days. She states that her left knee had been sore maybe for a day or so like she sprained it. She does admit to multiple falls, denies any specific injury that she can recall. She awoke from a nap yesterday with significant left knee pain. She prefers to hold her leg in near full extension. Reports that her knee is slightly swollen when compared to the contralateral side. Denies prior knee injury. Denies redness, warmth, fever. Denies prior knee injury. Reports discomfort about the entire knee. Denies any discomfort in the rest of her leg, hip, ankle, other joints. Left knee exam: Visual inspection without erythema or obvious deformity. There is diffuse mild anterior soft tissue swelling with small effusion. There are areas of ecchymosis in various stages of healing. Ecchymosis about the superolateral region likely secondary to recent aspiration. Patient prefers to hold her leg about 10 degrees short of full extension, active range of motion about 5-20. Passively I can get her knee just a couple degrees short of full extension, flexion to about 25-30 degrees. There is no warmth to palpation. There is diffuse discomfort about her entire knee. Knee is stable to varus and valgus stress without significant discomfort. Negative anterior draw. Examination for both Caron and Mana are challenging secondary guarding. Calf is soft, nontender, easily compressed. Track gonzalez noted about the lower extremity. PFSH All Active Problems (Updated 08/25/23 @ 12:42 by Bianca Fox APRN) Pain (Acute) On deep vein thrombosis (DVT) prophylaxis (Acute) IVDU (intravenous drug user) (Acute) Effusion of knee joint, left (Acute) Fall (Acute) Methadone maintenance therapy patient (Acute) Cellulitis of left foot (Acute) Postop check (Acute) Wound infection (Acute) Wound dehiscence (Acute) Cardiac asystole (Acute) Hepatitis C (Chronic) Mild tricuspid regurgitation (Acute) Anemia (Chronic) Localized swelling of left lower extremity (Acute) Cellulitis (Acute) Smoker (Acute) Viral illness (Acute) History of prior with IUGR (Acute 01/11/15) History of kidney injury (Acute 01/17/16) Acute January, History of drug abuse (Acute 01/17/16) In IP treatment at [place], no longer on methadone as of 01/17/16. Family court is close to resolved - will end . She is expecting 1st daughter to come home. Depression (Acute 01/11/15) Chronic hepatitis C without hepatic coma (Chronic 01/11/15) Cardiomyopathy (Chronic 01/22/16) Anemia of chronic disease (Acute 01/17/16) ADHD, hyperactive-impulsive type (Chronic 05/14/16) Insomnia (Acute) DVT prophylaxis (Acute) Fever (Acute) Prepatellar bursitis of right knee (Acute) Anxiety (Chronic) Anemia (Chronic) Opioid dependence (Chronic) Mitral regurgitation (Chronic) Edema (Acute) Medical History Lack of intravenous access IV drug user Left posterior fascicular block (LPFB) RBBB Fungemia Closed head injury Cardiac arrest with successful resuscitation Pulmonary nodules Anemia Scalded skin syndrome Alcohol abuse Hx of cocaine abuse Personality disorder Herpes, vulvar PTSD (post-traumatic stress disorder) ADHD Subacute endocarditis (01/22/16) MSSA endocarditis January, HSV infection Hx of infant who one week after . ? HSV or H1N1 infection. Pt has been on prophylaxis with pregnancies. Depression difficulty bonding with 2nd child. child removed from her custody. was on Wellbutrin but had sz and not on meds at this time. has appt with counselor 03/2015 Surgical History section (11/24/12) PCD @ 35w. IUGR. [facility]. [id number]. [facility] [place]. [place]/26[place]15 RCD. Pt arrived in labor and declined SUN. [facility]. Amputation 12/23/16;[facility]; RIGHT BELOW THE KNEE Family History Mother No problems noted. Father No problems noted. Brother No problems noted. Grandfather No problems noted. Grandfather No problems noted. Grandmother No problems noted. Grandmother No problems noted. Son No problems noted. Son No problems noted. Daughter No problems noted. Daughter No problems noted. Social History Smoking/Tobacco Use Status: Current every day Tobacco Type: cigarettes Smoking risk assessment performed?: Yes Alcohol Intake: current Alcohol Intake frequency: a few times a month Alcohol type: beer Drug use: Occasionally Substance use type: former substance user, marijuana, crack/cocaine and heroin Details: haven't used recreationally drugs for few days starting treatment Thursday. CHINO,RN 04/14/23 Housing: house Do you feel safe at home: Yes Do you feel safe in your relationship?: Yes Additional Social history: pt states she is on methadone History History 2 4 Para 4 Hx # Term Pregnancies Multiple births Hx # Pregnancies Ectopic pregnancies AB induced Hx Number of Living Children 3 AB spontaneous Past Pregnancies Del. Date GA/Weeks # Preg Succ Route Wgt Sex Labor Lgth Anesth esia Location [facility] 12/28/20 25 Delivery Date: 12/28/20 Last Updated by: Roxanna Rocha LPN Patient transferred OB care to [facility] Results Last Vital Signs Temp 97.0 F L 08/25/23 05:23 Pulse 61 08/25/23 06:16 Resp 12 08/25/23 06:30 BP 128/81 08/25/23 06:16 Pulse Ox 100 08/25/23 06:30 Labs 08/25/23 01:22 08/25/23 01:22 Labs: Laboratory Results - last 24 hr 06/18/24 06/18/24 06/18/24 01:22 01:26 01:40 WBC 10.88 H RBC 4.52 Hgb 13.2 Hct 39.9 MCV 88 MCH 29.2 MCHC 33.1 RDW 13.2 Plt Count 287 MPV 8.9 Immature Gran % 0.4 Neutrophils % 83.9 Lymphocytes % 8.4 Monocytes % 6.6 Eosinophils % 0.4 Basophils % 0.3 Nucleated RBC % 0.0 Absolute Neutrophils 9.13 H Absolute Lymphocytes 0.91 L Absolute Monocytes 0.72 Absolute Eosinophils 0.04 Absolute Basophils 0.03 ESR PT Cancelled Cancelled INR Cancelled Cancelled APTT Cancelled Cancelled Sodium 136 Potassium 4.1 Chloride 98 Carbon Dioxide 25.7 Anion Gap 12.3 H BUN 10 Creatinine 0.7 Est GFR (CKD-EPI 2020) 112.75 Glucose 133 H Uric Acid Calcium 9.0 Total Bilirubin 0.6 AST 24 ALT 23 Alkaline Phosphatase 126 H C-Reactive Protein Total Protein 8.7 H Albumin 3.8 Serum HCG, Qual Cancelled Fluid Source L Knee Fluid Color Yellow Fluid Clarity Cloudy Fluid WBC 72150 Fld Polynuclear WBCs % 95 Fluid Mononuclear Cell 5 Fluid Crystals No Crystals seen Fluid Crystal Source L Knee Add-On Test Request DONE 08/25/23 08/25/23 08/25/23 02:00 02:15 06:30 WBC RBC Hgb Hct MCV MCH MCHC RDW Plt Count MPV Immature Gran % Neutrophils % Lymphocytes % Monocytes % Eosinophils % Basophils % Nucleated RBC % Absolute Neutrophils Absolute Lymphocytes Absolute Monocytes Absolute Eosinophils Absolute Basophils ESR 31 H PT 10.6 INR 1.1 APTT 27.2 Sodium Potassium Chloride Carbon Dioxide Anion Gap BUN Creatinine Est GFR (CKD-EPI 2020) Glucose Uric Acid 3.9 Calcium Total Bilirubin AST ALT Alkaline Phosphatase C-Reactive Protein 6.16 H Total Protein Albumin Serum HCG, Qual Negative Fluid Source Fluid Color Fluid Clarity Fluid WBC Fld Polynuclear WBCs % Fluid Mononuclear Cell Fluid Crystals Fluid Crystal Source Add-On Test Request
--- NOTE | 2023-08-25 07:59 | NUR.NOTE ---
Called [facility] to verify patient's methadone dose. Nurse there stated that patient usually comes in daily for her 120 mg dose, but missed yesterday. Dr. Macedo advised.
[2023-08-25] MEDS: Ketorolac 15 MG/ML VIAL IVP ×3 (08:25→17:37)
[2023-08-25] MEDS: Normal Saline 10 ML VIAL IJ (08:26)
[2023-08-25] MEDS: Methadone Liquid 10 MG/ML 120 MG PO (08:35)
--- NOTE | 2023-08-25 09:32 | DI.VRAD_ITS ---
PROCEDURE INFORMATION: Exam: XR Left Knee Exam date and time: 08/25/2023 6:53 AM Age: 38 years old Clinical indication: Left; Patient HX: L knee pain after fall, cellulitis TECHNIQUE: Imaging protocol: Radiologic exam of the left knee. Views: 3 views. COMPARISON: MR LOWER EXTREMITY LT WO/W 12/22/2022 3:55 PM FINDINGS: Bones/joints: Small to moderate-sized articular effusion. Soft tissues: Thickening of the anterior soft tissues over the patella. IMPRESSION: 1. No acute osseous abnormality. 2. Nonspecific thickening of the anterior soft tissues over the patella, may represent infection, bursitis, posttraumatic change. 3. Small to moderate-sized articular effusion. Dictated and Authenticated by: Ousmane David MD. Ordering:BECKI Connolly MD
--- NOTE | 2023-08-25 10:07 | HPE_ITS ---
Date of service: 08/25/23 Time of Service: 10:07 Assessment and Plan Assessment and plan (1) Effusion of knee joint, left: Status: Acute Assessment and plan: IVDA hx with Hx of endocarditis and osteomyelitis and BKA right knee; currently still using IV drugs and using left leg as the injection site. Ortho consulted On ceftriaxone On Vancomycin Synovial fluid culture results pending Blood cultures results pending Trending inflammatory markers:ESR, CRP (2) Methadone maintenance therapy patient: Status: Acute Assessment and plan: On home dose of methadone (3) Pain: Status: Acute Assessment and plan: Scheduled APAP, ketorolac On home dose neurontin and cymbalta patient mentioned to RN Sydni Power that she would like to avoid narcotics (4) On deep vein thrombosis (DVT) prophylaxis: Status: Acute Assessment and plan: Will do Lovenox SC (5) Discharge planning issues: Status: Resolved Assessment and plan: CM to f/u as needed, no new need a this time. Discussed with Dr. 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 She reported being unable to bear weight on the leg.In the ED the patient denied fever, chills, cough , SOB, chest pain, GI symptoms. In the ED showed a WBC of 10.9 with unremarkable chemistries. X-ray of the left knee showed small to moderate size articular effusion with thickening of the anterior soft tissues over the patella which may represent infection, bursitis or posttraumatic change. Synovial fluid was noticeable for 18,000 white cells that are 95% polynuclear without crystals no bacteria noted on Gram stain. In the ED the patient was treated with IV ceftriaxone and vancomycin as well as acetaminophen and ketorolac for pain. The orthopedic surgeon was consulted and status post easy colored aspiration recommended observation, empiric antibiotics for Lyme disease and organism that caused the previous infection and amputation on the contralateral leg as well as NSAIDs for reactive arthritis. Dr. Ortiz evaluated that presentation does not seem consistent with [place] joint acute septic arthritis. When seen in her room, the patient was complaining of pain to her left knee. She reported having completed an injection to her left lower extremity four days prior to arrival to the ED, but could not remember the exact date today but knew it was August. She denied fainting, change in vision, nausea, vomiting, or dysuria. The patient reported subjective fevers, chills, tiredness, dizziness and also falling and hitting her left knee a few days ago. Review of Systems All systems reviewed & are unremarkable except as noted in HPI and below PFSH All Active Problems (Updated 08/25/23 @ 12:42 by Bianca Fox APRN) Pain (Acute) On deep vein thrombosis (DVT) prophylaxis (Acute) IVDU (intravenous drug user) (Acute) Effusion of knee joint, left (Acute) Fall (Acute) Methadone maintenance therapy patient (Acute) Cellulitis of left foot (Acute) Postop check (Acute) Wound infection (Acute) Wound dehiscence (Acute) Cardiac asystole (Acute) Hepatitis C (Chronic) Mild tricuspid regurgitation (Acute) Anemia (Chronic) Localized swelling of left lower extremity (Acute) Cellulitis (Acute) Smoker (Acute) Viral illness (Acute) History of prior with IUGR (Acute 01/11/15) History of kidney injury (Acute 01/17/16) Acute January, History of drug abuse (Acute 01/17/16) In IP treatment at [facility], no longer on methadone as of 01/17/16. Family court is close to resolved - will end . She is expecting 1st daughter to come home. Depression (Acute 01/11/15) Chronic hepatitis C without hepatic coma (Chronic 01/11/15) Cardiomyopathy (Chronic 01/22/16) Anemia of chronic disease (Acute 01/17/16) ADHD, hyperactive-impulsive type (Chronic 05/14/16) Insomnia (Acute) DVT prophylaxis (Acute) Fever (Acute) Prepatellar bursitis of right knee (Acute) Anxiety (Chronic) Anemia (Chronic) Opioid dependence (Chronic) Mitral regurgitation (Chronic) Edema (Acute) Medical History Lack of intravenous access IV drug user Left posterior fascicular block (LPFB) RBBB Fungemia Closed head injury Cardiac arrest with successful resuscitation Pulmonary nodules Anemia Scalded skin syndrome Alcohol abuse Hx of cocaine abuse Personality disorder Herpes, vulvar PTSD (post-traumatic stress disorder) ADHD Subacute endocarditis (01/22/16) MSSA endocarditis January, HSV infection Hx of who one week after . ? HSV or H1N1 infection. Pt has been on prophylaxis with pregnancies. Depression difficulty bonding with 2nd child. child removed from her custody. was on Wellbutrin but had sz and not on meds at this time. has appt with counselor 03/2015 Surgical History section (11/24/12) PCD @ 35w. [id number] [place]. 03/26/15 RCD. Pt arrived in labor and declined SUN. [facility]. Amputation 12/23/16;[facility]; RIGHT BELOW THE KNEE Family History Mother No problems noted. Father No problems noted. Brother No problems noted. Grandfather No problems noted. Grandfather No problems noted. Grandmother No problems noted. Grandmother No problems noted. Son No problems noted. Son No problems noted. Daughter No problems noted. Daughter No problems noted. Social History Smoking/Tobacco Use Status: Current every day Tobacco Type: cigarettes Smoking risk assessment performed?: Yes Alcohol Intake: current Alcohol Intake frequency: a few times a month Alcohol type: beer Drug use: Occasionally Substance use type: former substance user, marijuana, crack/cocaine and heroin Details: haven't used recreationally drugs for few days starting treatment Thursday. CHINO,RN 04/14/23 Housing: house Do you feel safe at home: Yes Do you feel safe in your relationship?: Yes Additional Social history: pt states she is on methadone History History 2 4 Para 4 Hx # Term Pregnancies Multiple births Hx # Pregnancies Ectopic pregnancies AB induced Hx Number of Living Children 3 AB spontaneous Past Pregnancies Del. Date GA/Weeks # Preg Succ Route Wgt Sex [facility] Delivery Date: 12/28/20 Last Updated by: Roxanna Rocha LPN Patient transferred OB care to [facility] Meds Allergies and Home Medications Allergies Allergy/AdvReac Type Severity Reaction Status Date / Time bupropion HCl AdvReac Intermediate Contraindic Verified 08/25/23 00:58 [From Wellbutrin SR] ated Home Medications Medication Instructions Recorded Confirmed Type gabapentin 800 mg tablet 800 mg PO QID 06/02/21 08/25/23 History methadone 10 mg/mL oral concentrate 120 mg PO DAILY 06/02/21 08/25/23 History furosemide 20 mg tablet 20 mg PO DAILY PRN PRN Edema 12/03/22 08/25/23 History methylphenidate HCl 40 mg biphasic 40 mg PO DAILY 12/03/22 08/25/23 History 50-50 capsule,extended release (Ritalin LA) duloxetine 60 mg capsule,delayed 60 mg PO DAILY 12/22/22 08/25/23 History release naloxone 4 mg/actuation nasal spray 4 mg intranasal Q2M PRN #2 ea 12/25/22 08/25/23 Rx Exam Narrative Exam Narrative: Constitutional The patient is sitting in bed uncomfortable but cooperative during the interview. The patient is without acute cardiovascular distress and has thin body habitus. HENMT: Head is atraumatic, normocephalic, no lymphadenopathy. Facial structures with normal appearance Eyes: Well aligned, intact ROM Neck: Normal ROM, no meningeal signs Neuro:alert and oriented to self, person, place and situation. No neurological focal deficit Resp: Normal respiratory pattern, speaks in full sentences, unlabored breathing, clear lung bilaterally Cardio: regular rhythm, S1, S2, no murmur, capillary refill<3 sec., bilateral radial and dorsalis pedis pulses are positive. GI: Abdomen is not distended, soft and non tender, bowel sounds are present : Negative Costovertebral angle tenderness, no bladder distension Back/spine/Pelvis: No back tenderness, normal alignment Integumentary: Track gonzalez to left lower leg, swollen knee, puncture site from ED tap visible w/o redness or drainage Extremities: left knee has limited active mobility Psych: RASS 0, congruent mood and normal affect. Results Labs 08/25/23 01:22 08/25/23 01:22 Labs: Laboratory Results - last 24 hr 08/25/23 08/25/23 08/25/23 01:22 01:26 01:40 WBC 10.88 H RBC 4.52 Hgb 13.2 Hct 39.9 MCV 88 MCH 29.2 MCHC 33.1 RDW 13.2 Plt Count 287 MPV 8.9 Immature Gran % 0.4 Neutrophils % 83.9 Lymphocytes % 8.4 Monocytes % 6.6 Eosinophils % 0.4 Basophils % 0.3 Nucleated RBC % 0.0 Absolute Neutrophils 9.13 H Absolute Lymphocytes 0.91 L Absolute Monocytes 0.72 Absolute Eosinophils 0.04 Absolute Basophils 0.03 ESR PT Cancelled Cancelled INR Cancelled Cancelled APTT Cancelled Cancelled Sodium 136 Potassium 4.1 Chloride 98 Carbon Dioxide 25.7 Anion Gap 12.3 H BUN 10 Creatinine 0.7 Est GFR (CKD-EPI 2020) 112.75 Glucose 133 H Uric Acid Calcium 9.0 Total Bilirubin 0.6 AST 24 ALT 23 Alkaline Phosphatase 126 H C-Reactive Protein Total Protein 8.7 H Albumin 3.8 Serum HCG, Qual Cancelled Fluid Source L Knee Fluid Color Yellow Fluid Clarity Cloudy Fluid WBC 15207 Fld Polynuclear WBCs % 95 Fluid Mononuclear Cell 5 Fluid Crystals No Crystals seen Fluid Crystal Source L Knee Add-On Test Request DONE 08/25/23 08/25/23 08/25/23 02:00 02:15 06:30 WBC RBC Hgb Hct MCV MCH MCHC RDW Plt Count MPV Immature Gran % Neutrophils % Lymphocytes % Monocytes % Eosinophils % Basophils % Nucleated RBC % Absolute Neutrophils Absolute Lymphocytes Absolute Monocytes Absolute Eosinophils Absolute Basophils ESR 31 H PT 10.6 INR 1.1 APTT 27.2 Sodium Potassium Chloride Carbon Dioxide Anion Gap BUN Creatinine Est GFR (CKD-EPI 2020) Glucose Uric Acid 3.9 Calcium Total Bilirubin AST ALT Alkaline Phosphatase C-Reactive Protein 6.16 H Total Protein Albumin Serum HCG, Qual Negative Fluid Source Fluid Color Fluid Clarity Fluid WBC Fld Polynuclear WBCs % Fluid Mononuclear Cell Fluid Crystals Fluid Crystal Source Add-On Test Request Last Vital Signs Temp 37.1 C 08/25/23 09:09 Pulse 72 08/25/23 09:09 Resp 20 08/25/23 09:09 BP 126/71 08/25/23 09:09 Pulse Ox 97 08/25/23 09:09 Time Spent Time spent with Patient: >75 minutes Time was spent: preparing to see the patient(eg.review tests), obtaining and/or reviewing separately otained hiistory, ordering medications,tests, procedures, referring, communicating with other health health care analyst, indepentently interpreting results, counseling the patient and care coordination
[2023-08-25] MEDS: Acetaminophen 325 MG TAB PO ×3 (11:01→19:19)
[2023-08-25] MEDS: Gabapentin 800 MG TAB PO ×3 (11:01→19:19)
[2023-08-25] MEDS: Normal Saline Flush 10 ML SYR IVP (11:06)
[2023-08-25] MEDS: DULoxetine 30 MG CAP 60 MG PO (12:04)
[2023-08-25] MEDS: Methylphenidate 10 MG TAB PO ×2 (12:05→14:07)
[2023-08-25] MEDS: VANCOMYCIN/WATER (PEG) 750 MG/150 ML BAG 150 MG IVPB (12:14)
[2023-08-25] MEDS: Enoxaparin 30 MG/0.3 ML SYR SC (14:49)
--- NOTE | 2023-08-25 15:55 | PHA.REVIEW2 ---
Pharmacy Admission Review Admission Clinical Review Admission Pharmacy Review: Pain (Acute) On deep vein thrombosis (DVT) prophylaxis (Acute) Effusion of knee joint, left (Acute) Methadone maintenance therapy patient (Acute) bupropion HCl [From Wellbutrin SR] Adverse Reaction (Intermediate, Verified 08/25/23 00:58) Contraindicated Resuscitation Status Full Code Height 5 ft 8 in Weight 60.328 kg Comments Comments/Follow Ups: Watch VS, labs, for culture results and for med changes. Pharmacy Admission Review Renal Dosing Renal Dosing: BUN 10 mg/dL (7-18) 08/25/23 01:22 Creatinine 0.7 mg/dL (0.55-1.02) 08/25/23 01:22 Medications needing adjustments: Reviewed (Crcl ~102.8 mL/min current meds okay) Anticoagulation Anticoagulation: Hgb 13.2 g/dL (11.2-15.7) 08/25/23 01:22 Hct 39.9 % (36.0-46.0) 08/25/23 01:22 Plt Count 287 10^3/uL (130-400) 08/25/23 01:22 INR 1.1 (0.9-1.1) 08/25/23 02:00 Creatinine 0.7 mg/dL (0.55-1.02) 08/25/23 01:22 DVT Prophylaxis: Reviewed Medications: Enoxaparin Opiate Usage Evaluate Pain Scale/Pains Meds: Reviewed Scheduled Bowel Reg ordered if on Opiates?: No (has PRN meds ordered) Relevant Labs Relevant Labs: ESR 31 mm/hr (0-20) H 08/25/23 06:30 Sodium 136 mmol/L (136-145) 08/25/23 01:22 Potassium 4.1 mmol/L (3.5-5.1) 08/25/23 01:22 Chloride 98 mmol/L (98-107) 08/25/23 01:22 C-Reactive Protein 6.16 mg/dL (<or=0.5) H 08/25/23 06:30 Electrolytes, C-Reactive P, ESR: Reviewed DM Control DM Control: N/A Cardiac Review BP, HR, EF%: Reviewed QTc Review QTc: N/A IV to PO Switch IV Medications: Reviewed Home Meds Home Med List reviewed: Intervened (methadone dose verified w/[facility].) Relevent Home Meds Not ordered & why?: furosemide (PRN), naloxone (PRN) Current Meds Current Medication Order Review: Intervened (Discontinued duplicate med orders.) Pharmacy Antibiotic Review Relevant Labs: Relevant Labs 08/25/23 06:30 C-Reactive Protein 6.16 H Pharmacy Antibiotic Activity: C/S review Comments: Blood and synovial knee cultures pending. Ceftriaxone and vanco ordered empirically due to effusion of knee joint. Vanco ordered 750 mg Q8H, predicted AUC 561. Change to trough based pending indication/cultures. Serum HCG negative, premix vanco okay. Comments Comments/Follow Ups: Watch VS, labs, for culture results and for med changes.
[2023-08-25 17:28] LABS: Rheumatoid Factor 15.1 IU/mL (<12.0)
[2023-08-25] MEDS: Methylphenidate 10 MG TAB 20 MG PO (17:37)
[2023-08-25] MEDS: VANCOMYCIN/WATER (PEG) 750 MG/150 ML BAG 300 MG IVPB (19:20)
[2023-08-26] VITALS (7 sets, daily range): BP systolic 126–149; BP diastolic 90–95; PULSE 20–90; RESP 18–20; TEMP 35.9–37.2; O2SAT 94–100
[2023-08-26] MEDS: Acetaminophen 325 MG TAB PO ×3 (03:52→22:11)
[2023-08-26] MEDS: Ketorolac 15 MG/ML VIAL IM (04:11)
[2023-08-26] MEDS: cefTRIAXone 1 GM VIAL IM (04:52)
[2023-08-26] MEDS: Water,Injection,Sterile 10 ML VIAL (05:06)
[2023-08-26] MEDS: Methylphenidate 10 MG TAB 20 MG PO (06:06)
[2023-08-26 07:13] LABS: HCT 37.6 % (36.0-46.0); HGB 12.4 g/dL (11.2-15.7); MCH 29.2 pg (27.0-33.0); MCV 89 fL (80-95); MPV 9.2 fL (8.0-11.0); Platelet Count 246 10^3/uL (130-400); RBC 4.25 10^6/uL (3.93-5.22); RDW 13.2 % (11.7-14.6); RDW-SD 42.5 fL; WBC 8.62 10^3/uL (4.4-10.8)
[2023-08-26 07:20] LABS: ESR 49 mm/hr (0-20)
[2023-08-26 07:49] LABS: Anion Gap 7.9 mmol/L (3-11); BUN 11 mg/dL (7-18); C-Reactive Protein 10.77 mg/dL (<or=0.5); CO2 28.1 mmol/L (21.0-32.0); CREATININE 0.8 mg/dL (0.55-1.02); Calcium 8.6 mg/dL (8.5-10.1); Chloride 102 mmol/L (98-107); Estimated GFR 96.06 (mL/min/1.73m2); Glucose 96 mg/dL (74-106); Magnesium 1.9 mg/dL (1.8-2.4); Potassium 4.5 mmol/L (3.5-5.1); Sodium 138 mmol/L (136-145)
[2023-08-26] MEDS: Gabapentin 800 MG TAB PO ×4 (08:21→22:11)
[2023-08-26] MEDS: VANCOMYCIN/WATER (PEG) 750 MG/150 ML BAG 150 MG IVPB (08:22)
[2023-08-26] MEDS: Normal Saline Flush 10 ML SYR IVP ×5 (08:23→22:12)
--- NOTE | 2023-08-26 08:23 | PGE_ITS ---
Date of Service Date of service: 08/26/23 Time of Service: 08:15 Assessment and Plan Assessment and plan (1) Effusion of knee joint, left: Status: Acute Assessment and plan: Patient states that she had a very challenging night secondary to pain. She states the pain seems to be spreading both proximally and distally away from her knee slightly. The pain now is worse just proximal and medial to the knee, less discomfort directly within the knee. She denies any new symptoms. Denies fever, rash, joint pain elsewhere in her body. Patient does state that if her pain is not more adequately controlled that she will consider leaving and going to [facility]. Patient is resting, no acute distress, but does appear slightly uncomfortable. Her left knee is elevated and flexed on pillows to about 15 degrees. Visual inspection without erythema or obvious deformity. There is slightly increased diffuse soft tissue swelling and larger effusion about the anterior knee, more so about the superior medial aspect. No induration or fluctuance. Patient is able to actively extend her knee to about 10 degrees, passively I can get this a few degrees further. She is able to flex her knee to about 50 degrees both actively and passively but states that she would prefer to do this passively because of less pain. She does have diffuse discomfort about her entire knee but there is increased discomfort about the proximal end in the medial soft tissue of the knee. Knee is stable to varus and valgus stress without significant discomfort. Negative anterior draw. She continues to receive antibiotics. Upon quick chart review, states patient was not given her overnight pain medications as she was sleeping. Her white blood cell count has decreased to 8.62. ESR has increased to 49 from 31 and her CRP is now 10.77 from 6.16. Her rheumatoid factor, MARIELLE, tickborne panel, remaining infectious workup is still pending. Presentation is challenging secondary to her multiple social and medical factors, relapse on heroin makes the details regarding the knee discomfort very challenging. Difficult to determine whether this was a injury secondary to fall or possible infectious process. Examination is not overly consistent with acute septic joint, no questioning more of a extra-articular etiology. Patient does admit to using heroin in her lower extremity, question deep soft tissue abscess and/or infection. Plan to make her n.p.o. and will obtain MRI of the left knee to determine next appropriate steps. PM update?patient has improved comfort since MRI, was able to mobilize more readily. Remains afebrile. Normal blood pressure and pulse. Pain scores remain about 10/10. MRI shows a large joint effusion and surrounding soft tissue edema. No purulence or gas visualized. No abscess. No meniscus or ligament tear. Likely incidental small patellar cartilage lesion. Heterogenous bone marrow signal unknown significance. Small suprapatellar prepatellar burs itis. Rheumatoid factor and MARIELLE are positive. Lyme, chlamydia, and gonorrhea are negative. Because of knee pain and effusion remains challenging. Possible autoimmune disease. Aspiration and blood cultures remain negative. Objectively, tolerates short arc passive motion and aspiration results no consistent with septic arthritis. Discussed with hospitalist team. Recommend pain control. Continue antibiotics for now. Follow-up remainder of lab work tomorrow. Repeat WBC, ESR, and CRP in the morning. N.p.o. after midnight. Consider knee arthroscopy to drain effusion and obtain additional fluid and soft tissue samples to aid in diagnosis. Objective Last Vital Signs Temp 35.9 C L 08/26/23 07:55 Pulse 20 L 08/26/23 07:55 Resp 20 08/26/23 07:55 BP 145/92 H 08/26/23 07:55 Pulse Ox 99 08/26/23 07:55 Laboratory Results - last 24 hr 08/25/23 08/26/23 01:26 06:56 WBC 8.62 RBC 4.25 Hgb 12.4 Hct 37.6 MCV 89 MCH 29.2 MCHC 33.0 RDW 13.2 Plt Count 246 MPV 9.2 ESR 49 H Sodium 138 Potassium 4.5 Chloride 102 Carbon Dioxide 28.1 Anion Gap 7.9 BUN 11 Creatinine 0.8 Est GFR (CKD-EPI 2020) 96.06 Glucose 96 Calcium 8.6 Magnesium 1.9 C-Reactive Protein 10.77 H Path Cons Comment SEE COMMENT Time Spent with Patient Time Spent with Patient: 35-49 minutes Time was spent: preparing to see the patient(eg.review tests), obtaining and/or reviewing separately otained hiistory, ordering medications,tests, procedures, referring, communicating with other health critical care nurse specialist, indepentently interpreting results, counseling the patient and care coordination
[2023-08-26] MEDS: Methadone Liquid 10 MG/ML 120 MG PO (08:26)
--- NOTE | 2023-08-26 08:26 | INITIAL_ITS ---
Date of service: 08/26/23 Time of Service: 08:26 Care Management Initial Assmt Initial Assessment Reason for Hospitalization: septic arthritis Functional Status/Living Situation Patient Presentation: Denisse was sitting up in bed when CM met with her. She was in good spirits and engaged easily with CM, well known to her from previous admissions. Denisse was admitted with a painful knee and septic arthritis is being ruled out. She has a history of endocarditis and osteomyelitis and has a right BKA. There was a possibility Denisse would go to surgery today for a wash out of her knee joint but that is no longer the plan. She is receiving IV antibiotics and will have repeat blood work in the morning to monitor her inflammatory markers. Denisse mentioned that she feels she should be eligible for disability. CM offered to send a referral to [facility] to assist with the process. Town of Residence: [place] [facility] Resides with: Parent (lives with her Mom) Significant Other/Family: Local Natural Supports: Mom and boyfriend Employment Status: Unemployed Instrumental Activities of Daily Living (ADLs): Independent Medications Medication Management: No Issues/Barriers identified Physical Functioning/Mobility Assistive Device: uses crutches and has a prosthesis for her right leg Advance Directives Advance Directives: Do you have an Advance Directive: N 07/16/12 17:03 AD On File at [facility]: N 06/13/12 00:00 Date Asked 08/25/23 08/25/23 09:05 AD Date Reviewed COLST On File at [facility] COLST Date Scanned Code Status Resuscitation Status Full Code Portal Pt does not currently have a portal and education provided: No Insurance Coverage/Financial Issues Insurance: Medicaid ACO Member: No Care Team Visit Care Team Role Provider Type Glenn Tinajero Primary Care Provider NON-[facility] STAFF PHYSICIAN Mohsen Macedo MD Emergency Provider [facility] STAFF PHYSICIAN Joseph Waldrop MD Admit Provider [facility] STAFF PHYSICIAN Attending Provider Discharge Potential Discharge Needs: PCP F/U Appt and Surgical F/U Appt Anticipated Barriers to Discharge: Medical Status Patient/Family Education Needs: Review discharge instructions, discuss Ask Me Three Transportation: RCT Plan: Anticipate Denisse will be discharged home when medically stable. She will follow up with her PCP and plan of care and transport via private vehicle. CM will follow and continue to assess for discharge needs. PFSH All Active Problems (Updated 08/26/23 @ 08:37 by Ángel Stark MD) Exhausted vascular access (Acute) Pain (Acute) On deep vein thrombosis (DVT) prophylaxis (Acute) IVDU (intravenous drug user) (Acute) Effusion of knee joint, left (Acute) Fall (Acute) Methadone maintenance therapy patient (Acute) Cellulitis of left foot (Acute) Postop check (Acute) Wound infection (Acute) Wound dehiscence (Acute) Cardiac asystole (Acute) Hepatitis C (Chronic) Mild tricuspid regurgitation (Acute) Anemia (Chronic) Localized swelling of left lower extremity (Acute) Cellulitis (Acute) Smoker (Acute) Viral illness (Acute) History of prior with IUGR (Acute 01/11/15) History of kidney injury (Acute 01/17/16) Acute January, History of drug abuse (Acute 01/17/16) In IP treatment at [place], no longer on methadone as of 01/17/16. Family court is close to resolved - will end . She is expecting 1st daughter to come home. Depression (Acute 01/11/15) Chronic hepatitis C without hepatic coma (Chronic 01/11/15) Cardiomyopathy (Chronic 01/22/16) Anemia of chronic disease (Acute 01/17/16) ADHD, hyperactive-impulsive type (Chronic 05/14/16) Insomnia (Acute) DVT prophylaxis (Acute) Fever (Acute) Prepatellar bursitis of right knee (Acute) Anxiety (Chronic) Anemia (Chronic) Opioid dependence (Chronic) Mitral regurgitation (Chronic) Edema (Acute) Medical History Lack of intravenous access IV drug user Left posterior fascicular block (LPFB) RBBB Fungemia Closed head injury Cardiac arrest with successful resuscitation Pulmonary nodules Anemia Scalded skin syndrome Alcohol abuse Hx of cocaine abuse Personality disorder Herpes, vulvar PTSD (post-traumatic stress disorder) ADHD Subacute endocarditis (01/22/16) MSSA endocarditis January, HSV infection Hx of who one week after . ? HSV or H1N1 infection. Pt has be en on prophylaxis with pregnancies. Depression difficulty bonding with 2nd child. child removed from her custody. was on Wellbutrin but had sz and not on meds at this time. has appt with counselor 03/2015 Surgical History section (11/24/12) PCD @ 35w. IUGR. NRFH. [id number]. [facility] [place]. 03/26/15 RCD. Pt arrived in labor and declined SUN. Daisy. Jessica. Amputation 12/23/16;[facility]; RIGHT BELOW THE KNEE Family History Mother No problems noted. Father No problems noted. Brother No problems noted. Grandfather No problems noted. Grandfather No problems noted. Grandmother No problems noted. Grandmother No problems noted. Son No problems noted. Son No problems noted. Daughter No problems noted. Daughter No problems noted. Social History Smoking/Tobacco Use Status: Current every day Tobacco Type: cigarettes Smoking risk assessment performed?: Yes Alcohol Intake: current Alcohol Intake frequency: a few times a month Alcohol type: beer Drug use: Occasionally Substance use type: former substance user, marijuana, crack/cocaine and heroin Details: haven't used recreationally drugs for few days starting treatment Thursday. CHINO,RN 04/14/23 Housing: house Do you feel safe at home: Yes Do you feel safe in your relationship?: Yes Additional Social history: pt states she is on methadone History History 4 Para 4 Hx # Term Pregnancies Multiple births Hx # Pregnancies Ectopic pregnancies AB induced Hx Number of Living Children 3 AB spontaneous Past Pregnancies Del. Date GA/Weeks # Preg Succ Route Wgt Sex Labor Lgth Anesth esia Location [facility] 12/28/20 25 Delivery Date: 12/28/20 Last Updated by: Roxanna Rocha LPN Patient transferred OB care to [facility] SDOH(Care Management) Screening Will the Patient Participate in the Screening?: Yes Do you worry about having a steady place to live?: no Problems where you live: no known problems In the past 12 months, have you had to go without electric, gas, oil or water in your home?: no Have you or anyone in your house had to go without enough food to eat?: no Has lack of transportation kept you from medical appointments or from doing things needed for daily living?: no Has anyone in your support network made you feel unsafe for any reason?: yes Health Related Social Needs Health related social needs: problem related to primary support group(Z63.9)
--- NOTE | 2023-08-26 08:35 | W.SURGCON ---
Date of service: 08/26/23 Time of Service: 08:35 Assessment and Plan Assessment and plan (1) Exhausted vascular access: Status: Acute Assessment and plan: 38-year-old woman who has difficult venous access because of IV drug use. She needs IV antibiotics. At this time of consult, a peripheral IV has been able to be placed by nursing staff. This access has been confirmed with the hospitalist as well as the nursing staff to be acceptable and sufficient for her IV antibiotics. Overall plan: Central access not required at this time. Surgery signing off. History of Present Illness Narrative: Asked by night hospitalist to come see the patient early this morning for IV access. Reportedly no one able to to get peripheral access on this patient who needs antibiotics this morning. Patient will need a central line. [facility] All Active Problems (Updated 08/26/23 @ 08:37 by Ángel Stark MD) Exhausted vascular access (Acute) Pain (Acute) On deep vein thrombosis (DVT) prophylaxis (Acute) IVDU (intravenous drug user) (Acute) Effusion of knee joint, left (Acute) Fall (Acute) Methadone maintenance therapy patient (Acute) Cellulitis of left foot (Acute) Postop check (Acute) Wound infection (Acute) Wound dehiscence (Acute) Cardiac asystole (Acute) Hepatitis C (Chronic) Mild tricuspid regurgitation (Acute) Anemia (Chronic) Localized swelling of left lower extremity (Acute) Cellulitis (Acute) Smoker (Acute) Viral illness (Acute) History of prior with IUGR (Acute 01/11/15) History of kidney injury (Acute 01/17/16) Acute January, History of drug abuse (Acute 01/17/16) In IP treatment at [place], no longer on methadone as of 01/17/16. Family court is close to resolved - will end . She is expecting 1st daughter to come home. Depression (Acute 01/11/15) Chronic hepatitis C without hepatic coma (Chronic 01/11/15) Cardiomyopathy (Chronic 01/22/16) Anemia of chronic disease (Acute 01/17/16) ADHD, hyperactive-impulsive type (Chronic 05/14/16) Insomnia (Acute) DVT prophylaxis (Acute) Fever (Acute) Prepatellar bursitis of right knee (Acute) Anxiety (Chronic) Anemia (Chronic) Opioid dependence (Chronic) Mitral regurgitation (Chronic) Edema (Acute) Medical History Lack of intravenous access IV drug user Left posterior fascicular block (LPFB) RBBB Fungemia Closed head injury Cardiac arrest with successful resuscitation Pulmonary nodules Anemia Scalded skin syndrome Alcohol abuse Hx of cocaine abuse Personality disorder Herpes, vulvar PTSD (post-traumatic stress disorder) ADHD Subacute endocarditis (01/22/16) MSSA endocarditis January, HSV infection Hx of who one week after . ? HSV or H1N1 infection. Pt has been on prophylaxis with pregnancies. Depression difficulty bonding with 2nd child. child removed from her custody. was on Wellbutrin but had sz and not on meds at this time. has appt with counselor 03/2015 Surgical History section (11/24/12) PCD @ 35w. IUGR. NRFH. [id number]. [facility] [place]. 03/26/15 RCD. Pt arrived in labor and declined SUN. F. Jessica. Amputation 12/23/16;[facility]; RIGHT BELOW THE KNEE Family History Mother No problems noted. Father No problems noted. Brother No problems noted. Grandfather No problems noted. Grandfather No problems noted. Grandmother No problems noted. Grandmother No problems noted. Son No problems noted. Son No problems noted. Daughter No problems noted. Daughter No problems noted. Social History Smoking/Tobacco Use Status: Current every day Tobacco Type: cigarettes Smoking risk assessment performed?: Yes Alcohol Intake: current Alcohol Intake frequency: a few times a month Alcohol type: beer Drug use: Occasionally Substance use type: former substance user, marijuana, crack/cocaine and heroin Details: haven't used recreationally drugs for few days starting treatment Thursday. [facility] 04/14/23 Housing: house Do you feel safe at home: Yes Do you feel safe in your relationship?: Yes Additional Social history: pt states she is on methadone History History 4 Para 4 Hx # Term Pregnancies Multiple births Hx # Pregnancies Ectopic pregnancies AB induced Hx Number of Living Children 3 AB spontaneous Past Pregnancies Del. Date GA/Weeks # Preg Succ Route Wgt Sex Labor Lgth Anesthesia Location Prov [facility] 12/28/20 25 Delivery Date: 12/28/20 Last Updated by: Roxanna Rocha LPN Patient transferred OB care to [facility] Exam Narrative Exam Narrative: Peripheral IV in place. Results Last Vital Signs Temp 96.6 F L 08/26/23 07:55 Pulse 20 L 08/26/23 07:55 Resp 20 08/26/23 07:55 BP 145/92 H 08/26/23 07:55 Pulse Ox 99 08/26/23 07:55 Labs 08/26/23 06:56 08/26/23 06:56 Labs: Laboratory Results - last 24 hr 08/25/23 08/26/23 01:26 06:56 WBC 8.62 RBC 4.25 Hgb 12.4 Hct 37.6 MCV 89 MCH 29.2 MCHC 33.0 RDW 13.2 Plt Count 246 MPV 9.2 ESR 49 H Sodium 138 Potassium 4.5 Chloride 102 Carbon Dioxide 28.1 Anion Gap 7.9 BUN 11 Creatinine 0.8 Est GFR (CKD-EPI 2020) 96.06 Glucose 96 Calcium 8.6 Magnesium 1.9 C-Reactive Protein 10.77 H Path Cons Comment SEE COMMENT
--- NOTE | 2023-08-26 09:02 | PGE_ITS ---
Date of Service Date of service: 08/26/23 Time of Service: 09:02 Assessment and Plan Assessment and plan (1) Effusion of knee joint, left: Status: Acute Assessment and plan: IVDA hx with Hx of endocarditis and osteomyelitis and BKA right knee; currently still using IV drugs and using left leg as the injection site. Ortho consult: MRI and wash out VS d/c pending result of imaging study -no drainage but recommends to d/c s/p improved inflammatory markers On ceftriaxone On Vancomycin: MRSA PCR pending Tick s and Lyme panel pending but lyme disease negative RF at 15.1, MARIELLE pending Synovial fluid culture results: no growth at 24 hours, GS w moderate WBC and no bacteria Blood cultures results: no growth at 24 hours Trending inflammatory markers:ESR up to 49 from 31, CRP up to 10.77 from 6.16 (2) Methadone maintenance therapy patient: Status: Acute Assessment and plan: continue home dose of methadone (3) Pain: Status: Acute Assessment and plan: Continue multimodal pain management with: Scheduled APAP, ketorolac On home dose neurontin and cymbalta patient had mentioned on admission day to RN Sydni Power that she would like to avoid narcotics (4) On deep vein thrombosis (DVT) prophylaxis: Status: Acute Assessment and plan: continue Lovenox SC (5) ADHD: Assessment and plan: On Ritalin ER 40 mg daily Will continue the dosing with IR 20 mg at 6AM and 10 mg at 10AM and 2PM Dose increase as requested by patient should be done with PCP (6) Discharge planning issues: Status: Resolved Assessment and plan: CM to f/u as needed, no new need a this time. Discussed with Dr. Waldrop Subjective Subjective Patient reports: feels better, still having pain, pain is less, tolerating liquids well, tolerating a regular diet, voiding w/o difficulty and bowel movement; denies diarrhea, nausea, vomiting or shortness of breath Exam Narrative Exam Narrative: Constitutional The patient is sitting in bed more comfortable but cooperative during the interview; able to remove pants and bend knee with less discomfort . Neuro:alert and oriented to self, person, place and situation Resp: clear lung bilaterally Cardio: regular rhythm, S1, S2, no murmur,left pedal pulse is positive GI: Abdomen is not distended, soft and non tender, bowel sounds are present : Negative Costovertebral angle tenderness, no bladder distension Back/spine/Pelvis: No back tenderness, normal alignment Integumentary: Track gonzalez to left lower leg, swollen knee, puncture site from ED tap minimally visible w/o redness or drainage Extremities: left knee has limited active mobility Psych: RASS 0, congruent mood and normal affect. Objective Last Vital Signs Temp 35.9 C L 08/26/23 07:55 Pulse 20 L 08/26/23 07:55 Resp 20 08/26/23 07:55 BP 145/92 H 08/26/23 07:55 Pulse Ox 99 08/26/23 07:55 Laboratory Results - last 24 hr 08/25/23 08/26/23 01:26 06:56 WBC 8.62 RBC 4.25 Hgb 12.4 Hct 37.6 MCV 89 MCH 29.2 MCHC 33.0 RDW 13.2 Plt Count 246 MPV 9.2 ESR 49 H Sodium 138 Potassium 4.5 Chloride 102 Carbon Dioxide 28.1 Anion Gap 7.9 BUN 11 Creatinine 0.8 Est GFR (CKD-EPI 2020) 96.06 Glucose 96 Calcium 8.6 Magnesium 1.9 C-Reactive Protein 10.77 H Path Cons Comment SEE COMMENT Time Spent with Patient Time Spent with Patient: >50 minutes Time was spent: preparing to see the patient(eg.review tests), obtaining and/or reviewing separately otained hiistory, ordering medications,tests, procedures, referring, communicating with other health health care marketing manager, indepentently interpreting results, counseling the patient and care coordination
[2023-08-26] MEDS: DULoxetine 30 MG CAP 60 MG PO (09:44)
[2023-08-26] MEDS: Methylphenidate 10 MG TAB PO ×2 (10:50→13:06)
[2023-08-26 11:52] LABS: Lyme Ab w Rflx to Lyme Confirm Negative (Negative)
--- NOTE | 2023-08-26 12:00 | DI.MRI_ITS ---
Exam(s) MR LOWER JOINT LT WO EXAM: MR LOWER JOINT LT WO CLINICAL HISTORY: Severe pain, injury vs infection. TECHNIQUE: Multiplanar multisequence MRI was performed. COMPARISON: MR MR lower joint RT wo from 12/03/2017 CR,XR XR KNEE LT 3V AP,LAT,PORTER from 08/25/2023 FINDINGS: Exam is limited by motion. BONES: There is no fracture or contusion pattern. JOINTS: A large joint effusion is present. Articular cartilage: Patellofemoral joint: Focal linear defect in the medial patellar facet extendin g down to but not involving underlying bone. Medial femoral tibial joint: Articular cartilage is unremarkable. Lateral femoral tibial joint: Articular cartilage is unremarkable. TENDONS: Extensor mechanism: Unremarkable. Medial retinaculum: Unremarkable. Lateral retinaculum: Unremarkable. Popliteus: Unremarkable. MUSCLES: Unremarkable. MENISCI: The medial meniscus is unremarkable. The lateral meniscus is unremarkable. SOFT TISSUES: Edema in the soft tissues LIGAMENTS: Anterior Cruciate: Unremarkable. Posterior Cruciate: Unremarkable. Medial Collateral:Unremarkable. Lateral Collateral: Unremarkable. IMPRESSION: Large joint effusion significant soft tissue edema surrounding the knee. No evidence of ligament or meniscal tear. No evidence of bone contusion. Focal linear defect in the medial patellar facet cartilage. DATA REPOSITORY:
[2023-08-26] MEDS: Ketorolac 15 MG/ML VIAL IVP ×2 (12:33→18:12)
[2023-08-26 12:55] LABS: ANA Interpretation Positive (Negative); ANA Titer Pattern 1:80 Speckled
[2023-08-26 13:12] LABS: Chlamydia Result Negative (Negative); GC Result Negative (Negative)
[2023-08-26] MEDS: Enoxaparin 30 MG/0.3 ML SYR SC (13:56)
[2023-08-26 15:14] LABS: Vancomycin, Trough 8.3 ug/mL (10.0-20.0)
[2023-08-26 16:43] LABS: MRSA PCR Positive (Negative)
[2023-08-26] MEDS: VANCOMYCIN/WATER (PEG) 1.5 GM/300 ML BAG IVPB (22:11)
[2023-08-27] VITALS (20 sets, daily range): BP systolic 105–140; BP diastolic 47–116; PULSE 62–118; RESP 11–31; TEMP 36.3–37.9; O2SAT 94–100; BMI 20.2
[2023-08-27] MEDS: Ketorolac 15 MG/ML VIAL IVP ×4 (00:21→23:08)
[2023-08-27] MEDS: cefTRIAXone 1 GM/50 ML BAG IVPB ×2 (00:21→23:08)
--- NOTE | 2023-08-27 07:18 | PGE_ITS ---
Date of Service Date of service: 08/27/23 Time of Service: 10:14 Assessment and Plan Assessment and plan (1) Effusion of knee joint, left: Status: Acute Assessment and plan: The patient states that she developed some chills, temperature was noted to be 37.3 Celsius. States that her pain is now an 8 out of 10, down from 10 out of 10. Still quite severe, unable to really move her leg anymore than yesterday. Denies any other new symptoms. Patient was resting comfortably and in no acute distress for my examination. Knee exam reveals slightly less anterior soft tissue swelling and effusion when compared to yesterday. Otherwise essentially the same. No change in tenderness or range of motion. White blood cell count trending downward, now 7.47. ESR continues to trend upward slightly, now 59. CRP about the same as yesterday, now 10.59. The patient with a challenging clinical situation, continues to have severe pain, no clear etiology of the painful effusion. Discussed options in length. Given the persistent pain, worse this afternoon, and developing low-grade fever and chills need to ensure no infection or septic joint despite low cell count, negative fluid cultures and blood cultures. Possible autoimmune arthritis given positive rheumatoid factor and MARIELLE. Reasonable and probably prudent to proceed with diagnostic intervention at this time. Would perform any necessary irrigation, debridement, and synovectomy if infection or inflammatory process. Will also obtain new fluid and tissue samples for culture and permanent specimen for rheumatoid disease. Discussed with medical team. Decision to proceed with surgery on 08/27/2023 left knee arthroscopy with irrigation, debridement, and synovial biopsy. Any other indicated meniscal, chondral, or synovial procedures. The risks, benefits, and alternatives were thoroughly discussed. Patient was counseled regarding pain management, expected postoperative course, and recovery timeline. Regional anesthesia will be used to optimize postoperative pain control. All questions were answered. Informed consent was obtained. Patient agrees and understands the treatment plan Objective Last Vital Signs Temp 97.5 F L 08/26/23 12:20 Pulse 84 08/26/23 12:20 Resp 20 08/26/23 12:20 BP 126/95 H 08/26/23 12:20 Pulse Ox 100 08/26/23 12:20 Laboratory Results - last 24 hr 08/25/23 08/25/23 08/26/23 06:30 07:08 06:56 WBC RBC Hgb Hct MCV MCH MCHC RDW Plt Count MPV Immature Gran % Neutrophils % Band Neutrophils % Lymphocytes % Atypical Lymphs % Monocytes % Eosinophils % Basophils % Metamyelocytes % Myelocytes % Promyelocytes % Other Cells % Nucleated RBC % Absolute Neutrophils Absolute Lymphocytes Absolute Monocytes Absolute Eosinophils Absolute Basophils RBC Morphology Polychromasia Hypochromasia Poikilocytosis Basophilic Stippling Anisocytosis Microcytosis Macrocytosis Spherocytes Tear Drop Cells Ovalocytes Stomatocytes [place] Bodies [place] Cells/Echinocytes Acanthocytes (Spur) Schistocytes ESR 49 H Sodium 138 Potassium 4.5 Chloride 102 Carbon Dioxide 28.1 Anion Gap 7.9 BUN 11 Creatinine 0.8 Est GFR (CKD-EPI 2020) 96.06 Glucose 96 Calcium 8.6 Magnesium 1.9 C-Reactive Protein 10.77 H Vancomycin Trough Random Vancomycin Rheumatoid Factor 15.1 H MARIELLE Titer 1:80 Speckled MARIELLE Titer 2 Not Applicable MARIELLE Titer 3 Not Applicable MARIELLE Interpretation Positive A Lyme Disease Antibody Negative Chlamydia DNA Probe Negative Chlamydia/GC DNA Source Not Applicable N.gonorrhoeae DNA Probe Negative MRSA (TEM-PCR) 08/26/23 08/26/23 08/26/23 08:00 14:00 14:10 WBC RBC Hgb Hct MCV MCH MCHC RDW Plt Count MPV Immature Gran % Neutrophils % Band Neutrophils % Lymphocytes % Atypical Lymphs % Monocytes % Eosinophils % Basophils % Metamyelocytes % Myelocytes % Promyelocytes % Other Cells % Nucleated RBC % Absolute Neutrophils Absolute Lymphocytes Absolute Monocytes Absolute Eosinophils Absolute Basophils RBC Morphology Polychromasia Hypochromasia Poikilocytosis Basophilic Stippling Anisocytosis Microcytosis Macrocytosis Spherocytes Tear Drop Cells Ovalocytes Stomatocytes [place] Bodies [place] Cells/Echinocytes Acanthocytes (Spur) Schistocytes ESR Sodium Potassium Chloride Carbon Dioxide Anion Gap BUN Creatinine Est GFR (CKD-EPI 2020) Glucose Calcium Magnesium C-Reactive Protein Vancomycin Trough 8.3 L Random Vancomycin Cancelled Rheumatoid Factor MARIELLE Titer MARIELLE Titer 2 MARIELLE Titer 3 MARIELLE Interpretation Lyme Disease Antibody Chlamydia DNA Probe Chlamydia/GC DNA Source N.gonorrhoeae DNA Probe MRSA (TEM-PCR) Positive A 08/27/23 08/27/23 05:35 06:00 WBC Cancelled RBC Cancelled Hgb Cancelled Hct Cancelled MCV Cancelled MCH Cancelled MCHC Cancelled RDW Cancelled Plt Count Cancelled MPV Cancelled Immature Gran % Cancelled Neutrophils % Cancelled Band Neutrophils % Cancelled Lymphocytes % Cancelled Atypical Lymphs % Cancelled Monocytes % Cancelled Eosinophils % Cancelled Basophils % Cancelled Metamyelocytes % Cancelled Myelocytes % Cancelled Promyelocytes % Cancelled Other Cells % Cancelled Nucleated RBC % Cancelled Absolute Neutrophils Cancelled Absolute Lymphocytes Cancelled Absolute Monocytes Cancelled Absolute Eosinophils Cancelled Absolute Basophils Cancelled RBC Morphology Cancelled Polychromasia Cancelled Hypochromasia Cancelled Poikilocytosis Cancelled Basophilic Stippling Cancelled Anisocytosis Cancelled Microcytosis Cancelled Macrocytosis Cancelled Spherocytes Cancelled Tear Drop Cells Cancelled Ovalocytes Cancelled Stomatocytes Cancelled [place] Bodies Cancelled [place] Cells/Echinocytes Cancelled Acanthocytes (Sp[place]) Cancelled Schistocytes Cancelled ESR Cancelled Sodium Cancelled Potassium Cancelled Chloride Cancelled Carbon Dioxide Cancelled Anion Gap Cancelled BUN Cancelled Creatinine Cancelled Est GFR (CKD-EPI 2020) Cancelled Glucose Cancelled Calcium Cancelled Magnesium C-Reactive Protein Cancelled Vancomycin Trough Random Vancomycin Cancelled Rheumatoid Factor MARIELLE Titer MARIELLE Titer 2 MARIELLE Titer 3 MARIELLE Interpretation Lyme Disease Antibody Chlamydia DNA Probe Chlamydia/GC DNA Source N.gonorrhoeae DNA Probe MRSA (TEM-PCR) Time Spent with Patient Time Spent with Patient: 35-49 minutes Time was spent: preparing to see the patient(eg.review tests), obtaining and/or reviewing separately otained hiistory, ordering medications,tests, procedures, referring, communicating with other health patient care technician, indepentently interpreting results and care coordination
[2023-08-27] MEDS: DULoxetine 30 MG CAP 60 MG PO (07:53)
[2023-08-27] MEDS: Acetaminophen 325 MG TAB PO ×4 (07:53→23:08)
[2023-08-27] MEDS: Gabapentin 800 MG TAB PO ×3 (07:54→19:23)
[2023-08-27] MEDS: Methylphenidate 10 MG TAB 20 MG PO (07:54)
[2023-08-27] MEDS: Normal Saline Flush 10 ML SYR IVP ×3 (07:55→19:23)
[2023-08-27 08:28] LABS: Abs Immature Grans 0.02 10^3/uL (0.0-0.06); Absolute Basophil Count 0.03 10^3/uL (0.0-0.2); Absolute Lymphocyte Count 0.89 10^3/uL (1.2-3.4); Absolute Monocyte Count 0.31 10^3/uL (0.1-0.8); Absolute Neutrophil Count 5.92 10^3/uL (1.2-6.7); Basophils % 0.4 %; HGB 12.2 g/dL (11.2-15.7); Immature Grans % 0.3 %; Lymphocytes % 11.9 %; MCH 29.3 pg (27.0-33.0); MCHC 32.1 % (32.0-36.0); MCV 91 fL (80-95); MPV 9.2 fL (8.0-11.0); Monocytes % 4.1 %; Neutrophils % 79.3 %; Nucleated RBC 0.3 % (0.0-0.3); Platelet Count 237 10^3/uL (130-400); RBC 4.17 10^6/uL (3.93-5.22); RDW 13.2 % (11.7-14.6); RDW-SD 44.3 fL; WBC 7.47 10^3/uL (4.4-10.8)
[2023-08-27] MEDS: Methadone Liquid 10 MG/ML 120 MG PO (08:31)
[2023-08-27 08:32] LABS: ESR 59 mm/hr (0-20)
[2023-08-27] MEDS: VANCOMYCIN/WATER (PEG) 1.5 GM/300 ML BAG IVPB ×2 (08:32→19:23)
[2023-08-27 08:47] LABS: Anion Gap 5.7 mmol/L (3-11); BUN 13 mg/dL (7-18); C-Reactive Protein 10.56 mg/dL (<or=0.5); CO2 28.3 mmol/L (21.0-32.0); CREATININE 0.7 mg/dL (0.55-1.02); Calcium 8.7 mg/dL (8.5-10.1); Chloride 103 mmol/L (98-107); Estimated GFR 112.75 (mL/min/1.73m2); Glucose 100 mg/dL (74-106); Potassium 4.7 mmol/L (3.5-5.1); Sodium 137 mmol/L (136-145)
[2023-08-27 08:52] LABS: Vancomycin, Random 12.1 ug/mL
[2023-08-27] MEDS: Methylphenidate 10 MG TAB PO ×2 (10:20→12:08)
--- NOTE | 2023-08-27 10:20 | W.PM.PROGNOT ---
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 Ortho consult: MRI and wash out VS d/c pending result of imaging study -no drainage but recommends to d/c s/p improved inflammatory markers On ceftriaxone On Vancomycin: MRSA PCR pending Tick s and Lyme panel pending but lyme disease negative RF at 15.1, MARIELLE pending Synovial fluid culture results: no growth at 24 hours, GS w moderate WBC and no bacteria Blood cultures results: no growth at 24 hours Trending inflammatory markers:ESR up to 49 from 31, CRP up to 10.77 from 6.16 (2) Methadone maintenance therapy patient: Status: Acute Assessment and plan: continue home dose of methadone (3) Pain: Status: Acute Assessment and plan: Continue multimodal pain management with: Scheduled APAP, ketorolac Continue home dose neurontin and cymbalta patient had mentioned on admission day to RN Sydni Power that she would like to avoid narcotics (4) On deep vein thrombosis (DVT) prophylaxis: Status: Acute Assessment and plan: On Lovenox SC (5) ADHD: Assessment and plan: On Ritalin ER 40 mg daily Continue the current dosing Dose increase as requested by patient should be done with PCP (6) Discharge planning issues: Status: Resolved Assessment and plan: CM to f/u as needed, no new need a this time. D/C in AM Discussed with Dr. Waldrop Subjective Subjective Patient reports: feels better, pain is less, tolerating liquids well, tolerating a regular diet, voiding w/o difficulty and fever; denies diarrhea, nausea, vomiting or shortness of breath Exam Narrative Exam Narrative: Constitutional The patient is sitting in bed more comfortable but cooperative during the interview; able to remove pants and bend knee with less discomfort . Neuro:alert and oriented to self, person, place and situation Resp: clear lung bilaterally Cardio: regular rhythm, S1, S2, no murmur,left pedal pulse is positive GI: Abdomen is not distended, soft and non tender, bowel sounds are present : Negative Costovertebral angle tenderness, no bladder distension Back/spine/Pelvis: No back tenderness, normal alignment Integumentary: Track gonzalez to left lower leg, swollen knee, puncture site from ED tap minimally visible w/o redness or drainage Extremities: left knee has limited active mobility Psych: RASS 0, congruent mood and normal affect. Objective Last Vital Signs Temp 37.3 C 08/27/23 07:53 Pulse 62 08/27/23 07:47 Resp 18 08/27/23 07:47 BP 140/116 H 08/27/23 07:47 Pulse Ox 100 08/27/23 07:47 Laboratory Results - last 24 hr 08/25/23 08/25/23 08/26/23 06:30 07:08 08:00 WBC RBC Hgb Hct MCV MCH MCHC RDW Plt Count MPV Immature Gran % Neutrophils % Band Neutrophils % Lymphocytes % Atypical Lymphs % Monocytes % Eosinophils % Basophils % Metamyelocytes % Myelocytes % Promyelocytes % Other Cells % Nucleated RBC % Absolute Neutrophils Absolute Lymphocytes Absolute Monocytes Absolute Eosinophils Absolute Basophils RBC Morphology Polychromasia Hypochromasia Poikilocytosis Basophilic Stippling Anisocytosis Microcytosis Macrocytosis Spherocytes Tear Drop Cells Ovalocytes Stomatocytes [place] Bodies [place] Cells/Echinocytes Acanthocytes (Spur) Schistocytes ESR Sodium Potassium Chloride Carbon Dioxide Anion Gap BUN Creatinine Est GFR (CKD-EPI 2020) Glucose Calcium C-Reactive Protein Vancomycin Trough Random Vancomycin Cancelled MARIELLE Titer 1:80 Speckled MARIELLE Titer 2 Not Applicable MARIELLE Titer 3 Not Applicable MARIELLE Interpretation Positive A Lyme Disease Antibody Negative Chlamydia DNA Probe Negative Chlamydia/GC DNA Source Not Applicable N.gonorrhoeae DNA Probe Negative MRSA (TEM-PCR) 08/26/23 08/26/23 08/27/23 14:00 14:10 05:35 WBC RBC Hgb Hct MCV MCH MCHC RDW Plt Count MPV Immature Gran % Neutrophils % Band Neutrophils % LANDSCAPE MANAGEMENT TECHNICIAN Lymphocytes % Atypical Lymphs % LANDSCAPE MANAGEMENT TECHNICIAN Monocytes % Eosinophils % Basophils % Metamyelocytes % LANDSCAPE MANAGEMENT TECHNICIAN Myelocytes % LANDSCAPE MANAGEMENT TECHNICIAN Promyelocytes % LANDSCAPE MANAGEMENT TECHNICIAN Other Cells % LANDSCAPE MANAGEMENT TECHNICIAN Nucleated RBC % Absolute Neutrophils Absolute Lymphocytes Absolute Monocytes Absolute Eosinophils Absolute Basophils RBC Morphology LANDSCAPE MANAGEMENT TECHNICIAN Polychromasia LANDSCAPE MANAGEMENT TECHNICIAN Hypochromasia LANDSCAPE MANAGEMENT TECHNICIAN Poikilocytosis LANDSCAPE MANAGEMENT TECHNICIAN Basophilic Stippling LANDSCAPE MANAGEMENT TECHNICIAN Anisocytosis LANDSCAPE MANAGEMENT TECHNICIAN Microcytosis LANDSCAPE MANAGEMENT TECHNICIAN Macrocytosis LANDSCAPE MANAGEMENT TECHNICIAN Spherocytes LANDSCAPE MANAGEMENT TECHNICIAN Tear Drop Cells LANDSCAPE MANAGEMENT TECHNICIAN Ovalocytes LANDSCAPE MANAGEMENT TECHNICIAN Stomatocytes LANDSCAPE MANAGEMENT TECHNICIAN [place] Bodies LANDSCAPE MANAGEMENT TECHNICIAN [place] Cells/Echinocytes LANDSCAPE MANAGEMENT TECHNICIAN Acanthocytes ([place]) LANDSCAPE MANAGEMENT TECHNICIAN Schistocytes LANDSCAPE MANAGEMENT TECHNICIAN ESR Sodium Potassium Chloride Carbon Dioxide Anion Gap BUN Creatinine Est GFR (CKD-EPI 2020) Glucose Calcium C-Reactive Protein Vancomycin Trough 8.3 L Random Vancomycin MARIELLE Titer MARIELLE Titer 2 MARIELLE Titer 3 MARIELLE Interpretation Lyme Disease Antibody Chlamydia DNA Probe Chlamydia/GC DNA Source N.gonorrhoeae DNA Probe MRSA (TEM-PCR) Positive A 08/27/23 08:10 WBC 7.47 RBC 4.17 Hgb 12.2 Hct 38.0 MCV 91 MCH 29.3 MCHC 32.1 RDW 13.2 Plt Count 237 MPV 9.2 Immature Gran % 0.3 Neutrophils % 79.3 Band Neutrophils % Lymphocytes % 11.9 Atypical Lymphs % Monocytes % 4.1 Eosinophils % 4.0 Basophils % 0.4 Metamyelocytes % Myelocytes % Promyelocytes % Other Cells % Nucleated RBC % 0.3 Absolute Neutrophils 5.92 Absolute Lymphocytes 0.89 L Absolute Monocytes 0.31 Absolute Eosinophils 0.30 Absolute Basophils 0.03 RBC Morphology Polychromasia Hypochromasia Poikilocytosis Basophilic Stippling Anisocytosis Microcytosis Macrocytosis Spherocytes Tear Drop Cells Ovalocytes Stomatocytes [place] Bodies [place] Cells/Echinocytes Acanthocytes ([place]) Schistocytes ESR 59 H Sodium 137 Potassium 4.7 Chloride 103 Carbon Dioxide 28.3 Anion Gap 5.7 BUN 13 Creatinine 0.7 Est GFR (CKD-EPI 2020) 112.75 Glucose 100 Calcium 8.7 C-Reactive Protein 10.56 H Vancomycin Trough Random Vancomycin 12.1 MARIELLE Titer MARIELLE Titer 2 MARIELLE Titer 3 MARIELLE Interpretation Lyme Disease Antibody Chlamydia DNA Probe Chlamydia/GC DNA Source N.gonorrhoeae DNA Probe MRSA (TEM-PCR) Time Spent with Patient Time Spent with Patient: >50 minutes Time was spent: preparing to see the patient(eg.review tests), obtaining and/or reviewing separately otained hiistory, ordering medications,tests, procedures, referring, communicating with other health care assistant, indepentently interpreting results, counseling the patient and care coordination
--- NOTE | 2023-08-27 11:34 | ANES.PREOP_ITS ---
General Info Date of Service Date Performed: 08/27/23 Height: 5 ft 8 in Weight: 60.328 kg Body Mass Index (BMI): 20.2 Surgical Procedure: Operation Date: 08/27/23 14:40 Proposed Procedure Side Surgeon p Knee Arthroscopy Jj Ortiz MD Meds Allergies and Home Medications Allergies Allergy/AdvReac Type Severity Reaction Status Date / Time bupropion HCl AdvReac Intermediate Contraindic Verified 08/25/23 00:58 [From Wellbutrin SR] ated Home Medication Medication Instructions Recorded gabapentin 800 mg tablet 800 mg PO QID 06/02/21 methadone 10 mg/mL oral concentrate 120 mg PO DAILY 06/02/21 furosemide 20 mg tablet 20 mg PO DAILY PRN PRN Edema 12/03/22 methylphenidate HCl 40 mg biphasic 40 mg PO DAILY 12/03/22 50-50 capsule,extended release (Ritalin LA) duloxetine 60 mg capsule,delayed 60 mg PO DAILY 12/22/22 release naloxone 4 mg/actuation nasal spray 4 mg intranasal Q2M PRN #2 ea 12/25/22 acetaminophen 500 mg capsule 1,000 mg (2 x 500 mg) PO Q6H PRN 08/26/23 #40 caps ibuprofen 800 mg tablet 800 mg PO TID #9 tabs 08/26/23 Current Visit Medications: Current Medications Generic Name Dose Route Start Last Admin Trade Name Freq PRN Reason Stop Dose Admin Acetaminophen 0 mg 08/25/23 09:16 08/27/23 07:53 Acetaminophen 325 Mg Tab PO 650 mg Q4H PRN PRN Administration Docusate Sodium 100 mg 08/25/23 09:16 Docusate Sodium 100 Mg Cap PO TID PRN PRN Duloxetine HCl 60 mg 08/25/23 11:15 08/27/23 07:53 Duloxetine 30 Mg Cap PO 60 mg DAILY LUCY Administration Enoxaparin Sodium 30 mg 08/25/23 14:00 08/26/23 13:56 Enoxaparin 30 Mg/0.3 Ml Syr SC 30 mg Q24H LUCY Administration Gabapentin 800 mg 08/25/23 11:00 08/27/23 07:54 Gabapentin 800 Mg Tab PO 800 mg QID LUCY Administration Ceftriaxone Sodium/Dextrose 1 gm in 50 mls @ 100 mls/hr 08/26/23 00:00 08/27/23 00:21 Rocephin IVPB 100 mls/hr Q24H LUCY Administration Vancomycin/PEG/NADA/Lysine/Water 1.5 gm in 300 mls @ 200 mls/hr 08/26/23 20:00 08/27/23 08:32 Vancocin Injection IVPB 200 mls/hr Q12H LUCY Administration IV Miscellaneous Supplies 1 each 08/25/23 09:16 Iv Access IV DIRECTED LUCY Ketorolac Tromethamine 15 mg 08/25/23 12:00 08/27/23 10:20 Ketorolac 15 Mg/Ml Vial IVP 08/30/23 11:59 15 mg Q6H LUCY Administration Methadone HCl 120 mg 08/26/23 08:30 08/27/23 08:31 Methadone Liquid 10 Mg/Ml PO 120 mg DAILY LUCY Administration Methylphenidate HCl 20 mg 08/26/23 06:00 08/27/23 07:54 Methylphenidate 10 Mg Tab PO 20 mg DAILY@0600 LUCY Administration Methylphenidate HCl 10 mg 08/26/23 09:00 08/27/23 10:20 Methylphenidate 10 Mg Tab PO 10 mg BID@0900,1300 LUCY Administration Polyethylene Glycol 17 gm 08/25/23 09:16 Polyethylene Glycol 3350 17 Gm Packet PO DAILY PRN PRN Constipation Sodium Chloride 0 ml 08/25/23 09:16 08/27/23 10:21 Normal Saline Flush 10 Ml Syr IVP 30 ml PRN PRN Administration Sodium Chloride 0 ml 08/25/23 09:16 08/27/23 07:55 Normal Saline Flush 10 Ml Syr IVP 10 ml BID LUCY Administration Sodium Chloride 0 ml 08/25/23 09:16 Normal Saline 10 Ml Vial IJ DIRECTED PRN PFSH Active Problems Active Problems: Problem Status Onset Code Exhausted vascular access Z45.2 Pain R52 On deep vein thrombosis (DVT) prophylaxis Z79.899 IVDU (intravenous drug user) F19.90 Effusion of knee joint, left M25.462 Fall W19.XXXA Methadone maintenance therapy patient F11.20 Cellulitis of left foot L03.116 Postop check Z09 Wound infection T14.8XXA, L08.9 Wound dehiscence T81.30XA Cardiac asystole I46.9 Hepatitis C B19.20 Mild tricuspid regurgitation I07.1 Anemia D64.9 Localized swelling of left lower extremity R22.42 Cellulitis L03.90 Smoker F17.200 Viral illness B34.9 History of prior with IUGR 01/11/15 Z87.59 History of oligohydramnios in prior , currently in third trimester 01/11/15 O09.293 History of kidney injury 01/17/16 Z87.828 History of drug abuse 01/17/16 Z87.898 Depression 01/11/15 F32.9 Chronic hepatitis C without hepatic coma 01/11/15 B18.2 Cardiomyopathy 01/22/16 I42.9 Anemia of chronic disease 01/17/16 D63.8 ADHD, hyperactive-impulsive type 05/14/16 F90.1 Insomnia G47.00 DVT prophylaxis Fever R50.9 Prepatellar bursitis of right knee M70.41 Anxiety F41.9 Anemia D64.9 Opioid dependence F11.20 Mitral regurgitation I34.0 Edema R60.9 Medical History Medical History Lack of intravenous access IV drug user Left posterior fascicular block (LPFB) RBBB Fungemia Closed head injury Cardiac arrest with successful resuscitation Pulmonary nodules Anemia Scalded skin syndrome Alcohol abuse Hx of cocaine abuse Personality disorder Herpes, vulvar PTSD (post-traumatic stress disorder) ADHD Subacute endocarditis (01/22/16) MSSA endocarditis January, HSV infection Hx of who one week after . ? HSV or H1N1 infection. Pt has been on prophylaxis with pregnancies. Depression difficulty bonding with 2nd child. child removed from her custody. was on Wellbutrin but had sz and not on meds at this time. has appt with counselor 03/2015 Surgical History Surgical History section (11/24/12) PCD @ 35w. IUGR. NRFH. [id number]. [facility] [place]26[place]CD. Pt arrived in labor and declined SUN. F. Jessica. Amputation 12/23/16;[facility]; RIGHT BELOW THE KNEE Tobacco Smoking/Tobacco Use Status: Current every day Tobacco Type: cigarettes Smoking cigarettes per day: 10 Alcohol Alcohol Intake: current Alcohol intake frequency: a few times a month Alcohol type: beer Substance Use Substance use: Occasionally Substance use type: former substance user, marijuana, crack/cocaine and heroin Details: haven't used recreationally drugs for few days starting treatment Thursday. CHINO,RN 04/14/23 Prental History History 2 4 Para 4 Hx # Term Pregnancies Multiple births Hx # Pregnancies Ectopic pregnancies AB induced Hx Number of Living Children 3 AB spontaneous Past Pregnancies Del. Date GA/Weeks # Preg Succ Route Wgt Sex Labor Lgth Anesth esia Location [facility] 12/28/20 25 Delivery Date: 12/28/20 Last Updated by: Roxanna Rocha LPN Patient transferred OB care to [facility] Vital Signs and Lab Results Vital Signs Most Recent Vital Signs in EMR: Most Recent Vital Signs Temp Pulse Resp BP Pulse Ox 36.3 C L 85 18 114/73 99 08/27/23 11:16 08/27/23 11:16 08/27/23 11:16 08/27/23 11:16 08/27/23 11:16 Lab Results 08/27/23 08:10 08/27/23 08:10 Blood Type / Crossmatch: 2 No Data to Display Complete Blood Count: 2 White Blood Count 7.47 10^3/uL (4.4-10.8) 08/27/23 08:10 Red Blood Count 4.17 10^6/uL (3.93-5.22) 08/27/23 08:10 Hemoglobin 12.2 g/dL (11.2-15.7) 08/27/23 08:10 Hematocrit 38.0 % (36.0-46.0) 08/27/23 08:10 Platelet Count 237 10^3/uL (130-400) 08/27/23 08:10 Complete Metabolic Panel: 2 Sodium 137 mmol/L (136-145) 08/27/23 08:10 Potassium 4.7 mmol/L (3.5-5.1) 08/27/23 08:10 Chloride 103 mmol/L (98-107) 08/27/23 08:10 Carbon Dioxide 28.3 mmol/L (21.0-32.0) 08/27/23 08:10 BUN 13 mg/dL (7-18) 08/27/23 08:10 Creatinine 0.7 mg/dL (0.55-1.02) 08/27/23 08:10 Est GFR (CKD-EPI 2020) 112.75 (mL/min/1.73m2) 08/27/23 08:10 Magnesium 1.9 mg/dL (1.8-2.4) 08/26/23 06:56 Calcium 8.7 mg/dL (8.5-10.1) 08/27/23 08:10 Albumin 3.8 g/dL (3.4-5.0) 08/25/23 01:22 Glucose 100 mg/dL (74-106) 08/27/23 08:10 C-Reactive Protein 10.56 mg/dL (<or=0.5) H 08/27/23 08:10 Liver Function Panel: 2 Alanine Aminotransferase (ALT/SGPT) 23 U/L (14-59) 08/25/23 01: 22 Aspartate Amino Transf (AST/SGOT) 24 U/L (15-37) 08/25/23 01:22 Coagulation Panel: 2 INR International Normalized Ratio 1.1 (0.9-1.1) 08/25/23 02:0 0 Prothrombin Time 10.6 sec (9.1-11.1) 08/25/23 02:00 Activated Partial Thromboplast Time 27.2 sec (23.6-32.8) 02:00 Cardiac Panel: 2 No Data to Display Arterial Blood Gas: 2 No Data to Display Venous Blood Gas: 2 No Data to Display Pancreas Panel: 2 No Data to Display Thyroid Panel: 2 No Data to Display Infectious Disease: 2 Neisseria gonorrhoeae DNA Probe Negative (Negative) 08/25/23 0 7:08 Blood Cultures: 2 No Data to Display Toxicology Panel: 2 No Data to Display Panel: 2 Serum HCG, Qualitative Negative 08/25/23 02:15 Imaging and Studies Imaging and Studies Study information below may be from another EMR and interpreted by another provider. Please see original notes in EMR for more complete details. EKG Summary: 12/10/2021: Exam: Resting ECG Reason for Exam: hyperkalemia Patient Location: I HR:103 bpm ECG Measurements Heart Rate 103 AXIS SD 186 P 102 QRSd 168 QRS 103 QT 423 T5 QTc 554 Conclusion Sinus tachycardia...rate> 99 RBBB and LPFB...QRSd >120mS, axis(90,210) Echocardiogram Summary: 11/28/2021: Conclusion Normal left ventricular wall thickness and chamber size. Estimated ejection fraction is 60 to 65%. Wall motion is normal Normal right ventricular size and systolic function Both atria are normal in size Tricuspid valve leaflets appear thickened with probable vegetation Mild tricuspid regurgitation, 2 jets There are no additional valvular abnormalities Anesthesia Assessment and Plan Anesthesia History Personal History: No History of Anesthesia Complications Family History: No Family History of Anesthesia Complications Exercise Tolerance Exercise Tolerance: Metabolic Equivalents>4 Cardiac & Pulmonary Exam Cardiac Exam: Normal S1/S2 Heart Sounds Pulmonary Exam: Clear Bilateral Breath Sounds Implantable Cardiac Device Does patient have a Pacemaker or an ICD?: No Airway Exam Known Difficult Airway: No Mallampati Class: 1 Mouth Opening: Normal (> 3cm) Thyromental Distance: Greater than 3 cm Neck Range of Motion: Full ROM Neck Circumference: Normal Teeth Condition: Generalized Poor Dentition ASA Classification ASA Score: ASA 3 Emergency Case?: No NPO Status NPO Status: NPO Clears >2 hours, Solids >8 hours Status Status: Not Relevant due to Medical History Anesthesia Plan Resuscitation Status: Full Code Anesthesia Technique: General Anesthesia Airway Planned: LMA Monitors Used: Standard Monitors Preoperative Comments:: 38 yo female for knee washout, admitted 08/25/23 with left knee pain. Sig PMHx: endocarditis, s/p right BKA (osteo), substance abuse/IVDA hx (methadone 120 mg/day), previous cardiac arrest, Hep C, smoker. Previous Anes/Airway: - I/D foot x 2, prop, natural airway, no issues. - DEBORAH, midaz, topical lido, prop, natural airway, no issues. - knee scope, prop, ketamine, LMA 4, no issues. - cardiac arrest, glide 3, grade 1.
[2023-08-27] MEDS: Lactated Ringers 1,000 ML 30 ML IV (14:19)
--- NOTE | 2023-08-27 14:37 | W.ANESNERVE ---
Nerve Block Single Injection Procedure Date and Time Date Performed: 08/27/23 Procedure Start: 14:29 Location Where Procedure Performed Procedure Location: Operating Room Procedure Stop: 14:34 Reason Performed: Postoperative Analgesia Requesting Provider: Jj Ortiz Timeout Performed Timeout Performed: Yes Monitoring Used ECG, Blood Pressure and SpO2 Sterility Sterility: Hand Hygiene, Surgical Cap, Surgical Mask, Sterile Gloves and Chlorhexidine Sedation Given During Procedure Sedation Given (Indicate Dose Given): No Sedation given Patient Mental Status Patient Mental Status: Performed under general anesthesia (Given under GA due to anxiety and likely inability to sit still and be blocked safely. ) Nerve Block 1st Nerve Block: Laterality: Left Block Type: Femoral Ultrasound Image Saved?: Yes Needle / Catheter Used: 120mm SonoPlex II Local Anesthetic Bolus (Indicate Dose Given): Injected in 3-5ml increments after negative blood aspiration and Bupivacaine 0.375% Dose:: 20 mL Additives (Indicate Dose Given): None Ultrasound: Sterile probe cover and gel used Nerve Stimulator: Supplement to Ultrasound use and No twitch or parasthesia noted < 0.5 mA Paresthesia: None Procedure Tolerated: No Complications Procedure Outcome: Successful Performed By: Bacilio Amaro
[2023-08-27] MEDS: Tranexamic Acid 1,000 MG/10 ML VIAL 1000 MG (14:45)
--- NOTE | 2023-08-27 14:55 | SYNOVIUM_PTH ---
PATIENT: Denisse Mcdermott LOC: U#:[id number] AGE/SX: 38/F ROOM: 230 RE08/25/[address]: Joseph Waldrop MD : [id number] BED: A DIS: 08/28/2023 SPEC #: [id number] RECD: 08/27/23 16:53 STATUS: LENY REQ #: [id number] JOSE: 08/27/23 14:[address]: Jj Ortiz DEPT: Surgical Specimen RECD BY: Patricia Otero ENTERED: 08/27/23 16:55 SP TYPE: SYNOVIUM OTHR DR: Glenn Tinajero MD Tissues: 1 - SYNOVIUM/IAL Procedures: GROSS AND MICRO LEVEL 4 SPECIAL STAIN 1 Comments: [id number]
[2023-08-27] MEDS: EPINEPHrine 10 MG/10 ML ML (15:09)
[2023-08-27] MEDS: Bupivacaine 0.25% Pres-Free W/EPI 30 ML VIAL (15:10)
--- NOTE | 2023-08-27 15:30 | ROE_ITS ---
Date of service: 08/27/23 Time of Service: 15:00 Operative Note Operative Note DATE OF PROCEDURE: 08/27/23 PRE-OP DIAGNOSIS: Left knee 1. Painful effusion 2. Chondromalacia patella POST-OP DIAGNOSIS: same Left knee 1. Painful effusion 2. Chondromalacia patella 3. small Lateral meniscus tear PROCEDURE: Left knee 1. Patellar chondroplasty, CPT #86929 2. Partial lateral meniscectomy, CPT #45200 3. Synovectomy, CPT #08108: Patellofemoral, anterior, intercondylar. SURGEON: Jj Ortiz UNIVERSITY RELATIONS DIRECTOR: None None ANESTHESIA TYPE: Local By Surgeon, General LMA/ETT and Primary Nerve Block (femoral) Refer to Anesthesia Record ESTIMATED BLOOD LOSS: 2 PATHOLOGY: other (fluid & tissue for cell count, cultures, and specimen) TOURNIQUET TIME: 0 COMPLICATIONS: None Patient was transported to: PACU Patient's condition: stable Indications: Please see complete medical record for details. Findings: Exam under anesthesia: Full knee range of motion, no instability, moderate effusion, no erythema, no other abscess or fluid collection Arthroscopic findings: Moderately sized effusion?no purulence, but small synovial debris. Mild suprapatellar and anterior synovitis, not significant. Small white zone lateral meniscus body tear. Moderate undersurface patella superior to central facet chondromalacia. Procedure Description: In the operating room, general anesthesia was induced. The patient was positioned supine on the operating room table. All bony prominences were well- padded. Preoperative antibiotics were held pending cultures. The knee was prepped and draped in the usual sterile fashion. The correct patient, procedure, and side of the procedure were all verified prior to incision. Exam under anesthesia was performed. The anterior lateral portal was establishe d and fluid drained through the arthroscope sheath into a specimen cup, and sent for cell count. Additional fluid was drained into another specimen cup and anaerobic and aerobic swab was used to obtain cultures. A diagnostic arthroscopy was done with relevant findings detailed above. Of note, there was no remarkable signs of inflammatory or infectious process to explain the severely painful effusion. About 30 cc effusion had been drained with small synovial debris. Pituitary rongeur was used to obtain synovial tissue samples from anterior and patellofemoral areas of most injection and mild small areas of synovial inflammation and into specimens for culture and pathology. Cefazolin antibiotics were administered. 30 cc of 0.25% bupivacaine containing epinephrine was infiltrated about the anterior medial, anterior lateral portals and about the knee joint. The mechanical shaver was used to remove the mildly abundant and inflamed patellofemoral and anterior and intercondylar synovitis. The mechanical shaver was used to debride the lateral meniscus body tear to a stable margin. The mechanical shaver was also used to debride the undersurface patella cartilage lesion to a more appropriate stable contour. 3 L of irrigation were then irrigated through the knee. Posterior medial posterior lateral compartments were also unrevealing. An 18-gauge needle was d irected anterior medial through the musculature down to the bone and retracted did not withdraw any fluid or pocket of infection in this area, which had the submuscular edema. The knee was then finally copiously irrigated with arthroscopic fluid until there was a clear effluent before being drained of all fluid. The anteromedial and anterolateral portals were closed in 3-0 Monocryl in a buried interrupted fashion. Mastisol, Steri-Strips, and 4 x 4 gauze were applied over the incisions. The knee was then wrapped gently with an ANABELLA comressive bandage. The patient awoke from anesthesia without complication and was transferred to the recovery room in a stable condition.
--- NOTE | 2023-08-27 15:42 | PDOC.CMPRO ---
Date of service: 08/27/23 Time of Service: 15:43 Care Management Progress Note Progress Note Text Progress Note Text: Denisse was in surgery when CM met with her. She is having left knee arthroscopy with irrigation, debridement, and synovial biopsy today with hopes of being able to go home later today or tomorrow. Last night she had chills and a low grade fever as well as tachycardia,which prompted the decision to do the procedure and obtain more information. Discharge Potential Discharge Needs: PCP F/U Appt and Surgical F/U Appt Anticipated Barriers to Discharge: None Identified Patient/Family Education Needs: Review discharge instructions, discuss Ask Me Three Transportation: Private vehicle Plan: Anticipate Denisse will be discharged home when medically stable. She will follow up with her PCP and plan of care and transport via private vehicle. CM will follow and continue to assess for discharge needs. SDOH(Care Management) Screening Will the Patient Participate in the Screening?: Yes Do you worry about having a steady place to live?: no Problems where you live: no known problems In the past 12 months, have you had to go without electric, gas, oil or water in your home?: no Have you or anyone in your house had to go without enough food to eat?: no Has lack of transportation kept you from medical appointments or from doing things needed for daily living?: no Has anyone in your support network made you feel unsafe for any reason?: yes Health Related Social Needs Health related social needs: problem related to primary support group(Z63.9)
--- NOTE | 2023-08-27 15:49 | W.ANESPOSTOP ---
Postoperative Evaluation Date, Time and Location Date Performed: 08/27/23 Time Performed: 15:42 Patient Location: PACU Vital Signs Most Recent Imported Vital Signs: Most Recent Vital Signs Temp Pulse Resp BP Pulse Ox 37.8 C H 91 H 11 L 108/55 L 94 08/27/23 15:38 08/27/23 15:40 08/27/23 15:41 08/27/23 15:40 08/27/23 15:41 Pain Score Most Recent Pain Score: Most Recent Pain Score Pain Level 9 08/27/23 11:16 Assessment Mental Status: Awake (Alert & Oriented to Patient Baseline) Airway and Respiratory Function: Patent airway with normal (patient baseline) respiratory exam Cardiovascular Function: Hemodynamically Stable Hydration Status: Adequately Hydrated Nausea & Vomiting: No Nausea or Vomiting Pain: Pt. Denies Any Pain Peripheral Nerve Block: Regional nerve block not resolved at time of post operative discharge
[2023-08-27 16:54] LABS: Clarity Bloody
[2023-08-27 16:57] LABS: Mononuclear Cells 4 %; Polynuclear Cells 96 %
--- NOTE | 2023-08-27 17:24 | DSE_ITS ---
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 The patient reported having injected herself in the left lower extremity last night made ambulating impossible as she was unable to bear weight on her left lower extremity. In the ED the patient denied fevers, chills, cough, shortness of breath, chest pain and gastrointestinal symptoms. Labs in the ED were unremarkable except for a WBC of 10.9. X-ray of the left knee showed small to moderate-sized articular effusion with thickening of the anterior soft tissue over the patella which may indicate infection versus bursitis versus posttraumatic changes. Synovial fluid was noticeable for 18,000 WBC that were 95% polynuclear without crystals and no bacteria noted on Gram stain. In the ED the patient was treated with IV ceftriaxone and IV vancomycin as well as acetaminophen and ketorolac for pain. An orthopedic consultation resulted in recommendation for observation, empiric IV antibiotics for Lyme disease and organism that caused the previous infection and amputation on the contralateral leg as well as NSAIDs for reactive arthritis. Evaluation resulted in the findings that presentation was not consistent with [place] joint acute septic arthritis. During the stay the patient continued to receive IV ceftriaxone and vancomycin. Leukocytosis resolved but CRP and ESR showed slowing in the uptrend. 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 Patient will be encouraged to pursue decolonization as directed by her primary care practitioner. Blood and synovial fluid cultures were negative at 72 hours. An MRI of the left knee was completed with no abuse injury but a focal linear defect in the medial patellar facet of the cartilage was observed. The MRI of the left knee also showed a large joint effusion significant with soft tissue edema surrounding the knee without evidence of ligament or meniscal tear or bone contusion. Dr. Ortiz, orthopedist, performed a drainage of the left knee effusion, fluid was collected for studies. Arthroscopic findings revealed moderate size effusion, without purulence but small synovial debris, insignificant mild suprapatellar and anterior synovitis, small white zone lateral meniscus body tear and moderate undersurface patella. S/p OR the nerve block persisted until this AM. Patient reported that her left leg was numb this AM but reported as ambulatory by nursing staff. Upon unannounced stimulation of her left sole the patient had a full knee flexion without pain then reported feeling tactile stimulation. Again today, the fluid collected from the left knee effusion is Gram stain is negative with no bacteria and only white blood cells. The patient remained afebrile without chills or night sweats except for 1 episode of postoperative fever status post left knee effusion drainage on 08/27/2023. The patient would benefit from a discussion regarding rheumatoid arthritis in the setting of rheumatoid factor level of 15.1 with her primary care provider and the need for DMARD drugs such as methotrexate versus expertise guideline with a follow-up with rheumatology. Lyme disease was negative and the Lyme and tick panel was still pending. The patient will be discharged on as needed ibuprofen and acetaminophen.As per the OR report,the anteromedial and anterolateral portals were closed in 3-0 Monocryl in a buried interrupted fashion. Mastisol, Steri-Strips, and 4 x 4 gauze were applied over the incisions. The knee was then wrapped gently with an ANABELLA compressive bandage. No redness and swelling noticed, anabella bandage slightly loosened this AM d/t c/o numbness. The patient should follow-up with her primary care practitioner within 7 days of discharge. Patient aware that she could not go initial pharmacy listed and ask for scripts to be sent to [place]. Also aware that She could also buy acetaminophen and ibuprofen over the counter. Discussed with Dr. Waldrop Maud Meds and New Rx's Prescriptions: New acetaminophen 500 mg tablet 1,000 mg PO Q6H PRNQty: 40 0RF ibuprofen 800 mg tablet 800 mg PO Q8H PRNQty: 15 0RF Continued gabapentin 800 mg tablet 800 mg PO QID Patient Comments: TAKE ONE TABLET BY MOUTH FOUR TIMES A DAY methadone 10 mg/mL Concentrate 120 mg PO DAILY Rx Instructions: CONFIRMED DOSE WITH LORIN 08/20/21 125MG QAM duloxetine 60 mg capsule,delayed release(DR/EC) 60 mg PO DAILY Patient Comments: Take 1 capsule by mouth once a day take 1 capsule by mouth daily naloxone 4 mg/actuation spray,non-aerosol 4 mg intranasal Q2M PRNQty: 2 12RF Rx Instructions: spray 1 dose into ONE nostril; alternate nostrils w each dose until help arrives methylphenidate HCl [Ritalin LA] 40 mg capsule,ER biphasic 50-50 40 mg PO DAILY Patient Comments: Take 1 capsule by mouth once a day furosemide 20 mg tablet 20 mg PO DAILY PRN PRN (Reason: Edema) Patient Comments: 1 tablet by mouth once a day as needed TAKE ONE TABLET BY MOUTH EVERY DAY as needed for edema Discharge Instructions Stand Alone Forms: Nursing Discharge Form Referrals: Glenn Tinajero [Primary Care Provider] - 09/02/23 1:30 pm () Activity:: Activity as Tolerated Equipment/Supplies:: R leg prosthesis at home Diet:: As Tolerated Discharge Orders Discharge Orders: Discharge Order (Routine); Ordered 08/28/23 Ordered By: Bianca Fox DS: Summary Time Spent with Patient providing and/or coordinating discharge services: Greater than 30 minutes Status at Discharge Functional status at discharge: independent ambulation Overall status at discharge: patient is progressing back to baseline Mental Status: mental status grossly normal Speech and Movement: speech and movement normal Mood: congruent mood Affect: normal affect Quality:SDOH Health Related Social Needs: Health related social needs personal safety Exam Narrative Exam Narrative: Neuro:alert and oriented to self, person, place and situation Resp: Clear lung bilaterally Cardio: regular rhythm, S1, S2, no murmur,left pedal pulse is positive Back/spine/Pelvis: No back tenderness, normal alignment Integumentary: Track gonzalez to left lower leg, swollen knee, arthroscopy site covered no visible w/o redness or drainage Extremities: left knee can be bent to 90 degrees with active mobility Psych: RASS 0, congruent mood and normal affect. Psych Mental Status: mental status grossly normal Speech and Movement: speech and movement normal Mood: congruent mood Affect: normal affect DS: Data Vitals/I&O Vitals and I&O: Vital Signs Temperature 37.9 C H 08/27/23 16:36 Temperature Source Tympanic 08/27/23 16:07 Pulse 89 08/27/23 16:07 Pulse Rhythm Regular 08/27/23 11:06 Pulse 100 H 08/27/23 15:41 Respiratory Rate 18 08/27/23 16:07 Respiratory Effort Normal, Non-Labored 08/27/23 11:06 Respiratory Depth Normal 08/27/23 11:06 Respiratory Pattern Normal 08/27/23 11:06 Blood Pressure 111/58 L 08/27/23 16:07 Blood Pressure Mean 72 08/27/23 15:40 Blood Pressure Position Sitting 08/25/23 05:23 Pulse Oximetry 98 08/27/23 16:07 Respiratory End-tidal CO2 08/27/23 15:35 Oxygen Delivery Method Room Air 08/27/23 16:07 Oxygen Flow Rate 0 08/27/23 16:07 Pain Level 0 08/27/23 16:07 Comment Refused 08/27/23 03:00 Intake & Output 08/26/23 08/27/23 08/27/23 23:59 11:59 23:59 Intake Total 300 / 700 400 / 700 Output Total 2 / 2 Balance 300 / 698 398 / 698 Weight 60.328 kg Intake: IV 300 / 700 400 / 700 Output: Estimated Blood Loss 2 / 2 Other: Urine Color Yellow Urine Appearance Clear Clear Comment voiding independently Stool Characteristics Soft Brown Emesis Description None Voiding Methods Bedside Commode Toilet Data Completed and Pending Labs on day of discharge: Labs from last 24 hours 08/27/23 08/27/23 08/27/23 14:50 08:10 05:35 WBC 7.47 RBC 4.17 Hgb 12.2 Hct 38.0 MCV 91 MCH 29.3 MCHC 32.1 RDW 13.2 Plt Count 237 MPV 9.2 Immature Gran % 0.3 Neutrophils % 79.3 Band Neutrophils % MANUFACTURING BUSINESS ANALYST Lymphocytes % 11.9 Atypical Lymphs % MANUFACTURING BUSINESS ANALYST Monocytes % 4.1 Eosinophils % 4.0 Basophils % 0.4 Metamyelocytes % MANUFACTURING BUSINESS ANALYST Myelocytes % MANUFACTURING BUSINESS ANALYST Promyelocytes % MANUFACTURING BUSINESS ANALYST Other Cells % MANUFACTURING BUSINESS ANALYST Nucleated RBC % 0.3 Absolute Neutrophils 5.92 Absolute Lymphocytes 0.89 L Absolute Monocytes 0.31 Absolute Eosinophils 0.30 Absolute Basophils 0.03 RBC Morphology MANUFACTURING BUSINESS ANALYST Polychromasia [employer]UFA[employer]URING BUSINESS ANALYST Hypochromasia [employer]UFACTURING BUSINESS [employer]NALYST Poikilocytosis MANUFACTURING BUSINESS ANALYST Basophilic Stippling [employer]UFACTURING BUSINESS ANALYST Anisocytosis MANUFACTURING BUSINESS ANALYST Microcytosis [employer]UFACTURING BUSINESS ANALYST Macrocytosis MANUFACTURING BUSINESS ANALYST Spherocytes MANUFACTURING BUSINESS ANALYST Tear Drop Cells MANUFACTURING BUSINESS ANALYST Ovalocytes MANUFACTURING BUSINESS ANALYST Stomatocytes MANUFACTURING BUSINESS ANALYST [place] Bodies MANUFACTURING BUSINESS ANALYST Andres Cells/Echinocytes MANUFACTURING BUSINESS ANALYST Acanthocytes (Spur) MANUFACTURING BUSINESS ANALYST Schistocytes MANUFACTURING BUSINESS ANALYST ESR 59 H Sodium 137 Potassium 4.7 Chloride 103 Carbon Dioxide 28.3 Anion Gap 5.7 BUN 13 Creatinine 0.7 Est GFR (CKD-EPI 2020) 112.75 Glucose 100 Calcium 8.7 C-Reactive Protein 10.56 H Fluid Source L Knee Fluid Color Red Fluid Clarity Bloody Fluid WBC 55214 Fld Polynuclear WBCs % 96 Fluid Mononuclear Cell 4 Random Vancomycin 12.1 Path Cons Comment Pending 08/27/23 14:50 Knee - Left Surgical Culture - Pending 08/27/23 14:50 Knee - Left Gram Stain - Pending 08/27/23 14:50 Knee - Left Anaerobic Culture - Pending 08/27/23 14:50 Knee - Left Anaerobic Culture - Pending 08/27/23 14:50 Knee - Left Surgical Culture - Pending 08/27/23 14:50 Knee - Left Gram Stain - Pending Preliminary micro results at discharge 08/27/23 14:50 Surgical Culture - Pending Knee - Left Gram Stain - Pending 08/27/23 14:50 Anaerobic Culture - Pending Knee - Left 08/27/23 14:50 Anaerobic Culture - Pending Knee - Left 08/27/23 14:50 Surgical Culture - Pending Knee - Left Gram Stain - Pending 08/25/23 01:26 Body Fluid Culture - Preliminary Synovial - Left Knee 08/25/23 01:40 Blood Culture - Preliminary Blood NO GROWTH 48 HOURS 08/25/23 01:22 Blood Culture - Preliminary Blood NO GROWTH 48 HOURS PFSH All Active Problems (Updated 08/26/23 @ 08:37 by Ángel Stark MD) Exhausted vascular access (Acute) Pain (Acute) On deep vein thrombosis (DVT) prophylaxis (Acute) IVDU (intravenous drug user) (Acute) Effusion of knee joint, left (Acute) Fall (Acute) Methadone maintenance therapy patient (Acute) Cellulitis of left foot (Acute) Postop check (Acute) Wound infection (Acute) Wound dehiscence (Acute) Cardiac asystole (Acute) Hepatitis C (Chronic) Mild tricuspid regurgitation (Acute) Anemia (Chronic) Localized swelling of left lower extremity (Acute) Cellulitis (Acute) Smoker (Acute) Viral illness (Acute) History of prior with IUGR (Acute 01/11/15) History of kidney injury (Acute 01/17/16) Acute January, History of drug abuse (Acute 01/17/16) In IP treatment at [place], no longer on methadone as of 01/17/16. Family court is close to resolved - will end . She is expecting 1st daughter to come home. Depression (Acute 01/11/15) Chronic hepatitis C without hepatic coma (Chronic 01/11/15) Cardiomyopathy (Chronic 01/22/16) Anemia of chronic disease (Acute 01/17/16) ADHD, hyperactive-impulsive type (Chronic 05/14/16) Insomnia (Acute) DVT prophylaxis (Acute) Fever (Acute) Prepatellar bursitis of right knee (Acute) Anxiety (Chronic) Anemia (Chronic) Opioid dependence (Chronic) Mitral regurgitation (Chronic) Edema (Acute) Medical History Lack of intravenous access IV drug user Left posterior fascicular block (LPFB) RBBB Fungemia Closed head injury Cardiac arrest with successful resuscitation Pulmonary nodules Anemia Scalded skin syndrome Alcohol abuse Hx of cocaine abuse Personality disorder Herpes, vulvar PTSD (post-traumatic stress disorder) ADHD Subacute endocarditis (01/22/16) MSSA endocarditis January, HSV infection Hx of infant who one week after . ? HSV or H1N1 infection. Pt has been on prophylaxis with pregnancies. Depression difficulty bonding with 2nd child. child removed from her custody. was on Wellbutrin but had sz and not on meds at this time. has appt with counselor 03/2015 Surgical History section (11/24/12) PCD @ 35w. [id number]. 03/26/15 RCD. Pt arrived in labor and declined SUN. F. Jessica. Amputation 12/23/16;[facility]; RIGHT BELOW THE KNEE Family History Mother No problems noted. Father No problems noted. Brother No problems noted. Grandfather No problems noted. Grandfather No problems noted. Grandmother No problems noted. Grandmother No problems noted. Son No problems noted. Son No problems noted. Daughter No problems noted. Daughter No problems noted. Social History Smoking/Tobacco Use Status: Current every day Tobacco Type: cigarettes Smoking risk assessment performed?: Yes Alcohol Intake: current Alcohol Intake frequency: a few times a month Alcohol type: beer Drug use: Occasionally Substance use type: former substance user, marijuana, crack/cocaine and heroin Details: haven't used recreationally drugs for few days starting treatment Thursday. CHINO,RN 04/14/23 Housing: house Do you feel safe at home: Yes Do you feel safe in your relationship?: Yes Additional Social history: pt states she is on methadone History History 4 Para 4 Hx # Term Pregnancies Multiple births Hx # Pregnancies Ectopic pregnancies AB induced Hx Number of Living Children 3 AB spontaneous Past Pregnancies Del. Date GA/Weeks # Preg Succ Route Wgt Sex Labor Lgth Anesth esia Location [facility] 12/28/20 25 Delivery Date: 12/28/20 Last Updated by: Roxanna Rocha LPN Patient transferred OB care to [facility] Time Spent with Patient Time Spent with Patient: 70-84 minutes4 Time was spent: preparing to see the patient(eg.review tests), obtaining and/or reviewing separately otained hiistory, ordering medications,tests, procedures, referring, communicating with other health rn progressive care unit, indepentently interpreting results, counseling the patient and care coordination
--- NOTE | 2023-08-27 20:31 | NUR.NOTE ---
Nursing Note: Pt drowsy upon initial assessment, able to be awoken by name/gentle shaking. Pt able to sit up to take scheduled PO medication. At 19:40, this RN was initiating scheduled IV vancomycin. Pt had fallen asleep with hand resting on bedside table. Pt knocked drink over off table onto bed/herself. Pt was startled and immediately sat at the edge of the bed and attempted to stand on L leg. Pt had no sensation in L leg d/t nerve block, lowered to floor to sitting position by this RN. Pt assisted up to bedside commode by staff x3, cleansed, linens changed and reassessed. Pt denies pain, VSS (T: 36.5, HR 80, BP 105/68, Resp 18, O2: 98%). Pt able to void while up to bedside commode (500cc clear yellow urine). Pt assisted with staff x3 to edge of bed and positioned self supine. Bed alarm set for patient safety. CC notified of event, will continue to monitor closely.
[2023-08-28 00:35] VITALS: BP 111/90; PULSE 61; RESP 16; TEMP 36.4; O2SAT 98
[2023-08-28] MEDS: Normal Saline Flush 10 ML SYR IVP ×2 (05:11→09:19)
[2023-08-28] MEDS: Ketorolac 15 MG/ML VIAL IVP ×2 (05:12→12:20)
[2023-08-28] MEDS: Methylphenidate 10 MG TAB 20 MG PO (05:12)
[2023-08-28] MEDS: Acetaminophen 325 MG TAB PO (05:12)
[2023-08-28 08:10] VITALS: BP 116/73; PULSE 81; RESP 17; TEMP 36.8; O2SAT 100
[2023-08-28] MEDS: DULoxetine 30 MG CAP 60 MG PO (09:19)
[2023-08-28] MEDS: Gabapentin 800 MG TAB PO ×2 (09:20→12:20)
[2023-08-28] MEDS: Methadone Liquid 10 MG/ML 120 MG PO (09:21)
[2023-08-28] MEDS: Methylphenidate 10 MG TAB PO ×2 (09:34→12:20)
[2023-08-28] MEDS: VANCOMYCIN/WATER (PEG) 1.5 GM/300 ML BAG IVPB (09:36)
[2023-08-28 11:34] VITALS: BP 131/85; PULSE 83; RESP 17; TEMP 36.6; O2SAT 99
[2023-08-28 23:47] LABS: Anaplasma phagocytophilum Negative (Negative); B. miyamotoi PCR Negative (Negative); Babesia divergens/MO-1 Negative (Negative); Babesia duncani Negative (Negative); Babesia microti Negative (Negative); Ehrlichia chaffeensis Negative (Negative); Ehrlichia ewingii/canis Negative (Negative); Ehrlichia muris eauclairensis Negative (Negative)
--- NOTE | 2023-08-29 14:27 | PDOC.CMDIS ---
Date of service: 08/28/23 Time of Service: 14:27 LACE Index Scoring Tool Questions: Length of Stay (in days): 3 Was the patient admitted via the E.D.?: Yes Comorbidities: Mild Liver/Renal Disease E.D. Visits: 2 Answers: Total Score: 10 Risk of Readmission: High Risk Care Management Discharge Plan Reason for Hospitalization: Septic Arthritis Discharge Plan: Denisse will be discharged home when medically stable. She will follow up with her PCP and plan of care and transport via private vehicle. Patient/Family Education Needs: Review discharge instructions, discuss Ask Me Three, to determine self care needs upon discharge. SDOH Health Related Social Needs: Health related social needs personal safety Health related social needs: problem related to primary support group(Z63.9)
== END 2023-08-28 13:03 | disposition home or self-care (01) | DRG 488 ==
LOC: ER 01:41 → MS 09:05
PROVIDERS: Nurse Practitioner Acute Care; Student in an Organized Health Care Education/Training Program; Admitting Provider Family Medicine; Emergency Provider Emergency Medicine; PCP Physician Assistant; Visit Provider Family Medicine
PROC: 0SBD4ZZ Excision of Left Knee Joint, Percutaneous Endoscopic Approach (ICD-10-PCS; CPT 29870; principal; 2023-08-27 14:30)
DX: M25.462 Effusion, left knee (principal); F11.20 Opioid dependence, uncomplicated; I42.9 Cardiomyopathy, unspecified; I45.2 Bifascicular block; M22.42 Chondromalacia patellae, left knee; F90.9 Attention-deficit hyperactivity disorder, unspecified type; R29.6 Repeated falls; B18.2 Chronic viral hepatitis C; F17.210 Nicotine dependence, cigarettes, uncomplicated; F32.A Depression, unspecified; D63.8 Anemia in other chronic diseases classified elsewhere; G47.00 Insomnia, unspecified; F41.9 Anxiety disorder, unspecified; I08.1 Rheumatic disorders of both mitral and tricuspid valves; Z86.74 Personal history of sudden cardiac arrest; F14.11 Cocaine abuse, in remission; F10.10 Alcohol abuse, uncomplicated; Z89.511 Acquired absence of right leg below knee; M25.561 Pain in right knee; D72.829 Elevated white blood cell count, unspecified; R50.9 Fever, unspecified; S83.282A Other tear of lateral meniscus, current injury, left knee, initial encounter; X58.XXXA Exposure to other specified factors, initial encounter; M65.862 Other synovitis and tenosynovitis, left lower leg; Z22.322 Carrier or suspected carrier of Methicillin resistant Staphylococcus aureus
CPT/HCPCS: 29876; 29881; 00123; 20610; 73562; 73721; 76942; 80048; 80053; 85027; 85652; 87040; 87491; 87591; 87641; 87798; 88305; 96365; 96366; 96367; 96375; 96376; 99285; 80202; 83735; 84550; 84703; 85025; 85610; 85730; 86038; 86140; 86431; 86618; 87070; 87075; 87205; 88312; 89051; 89060; 99223; 99233; 99239; J0131; J0171; J0665; J0690; J0696; J1100; J1650; J1885; J2001; J2250; J2405; J2704; J3010; J3370; J3372

== ENCOUNTER 2023-10-03 17:19 | Emergency (ER) | payer MEDICAID, SELFPAY ==
[2023-10-03 17:28] VITALS: BP 133/79; PULSE 69; RESP 16; TEMP 36.5; O2SAT 100
--- NOTE | 2023-10-03 18:00 | DI.RAD_ITS ---
Exam(s) XR THUMB RT EXAM: XR THUMB RT CLINICAL HISTORY: 1st digit. TECHNIQUE: 2D digital imaging was performed of the right finger. Three views were obtained. PA/AP, oblique, and lateral views were obtained. COMPARISON: CR XR HAND RT COMPLETE from 12/05/2019 FINDINGS: BONES: No acute fracture is present. No bony destructive lesion is seen. JOINTS: No dislocation present. SOFT TISSUE: Normal. IMPRESSION: No evidence of acute fracture or dislocation. DATA REPOSITORY: RADIATION DOSE DELIVERED:
--- NOTE | 2023-10-03 19:11 | DI.VRAD_ITS ---
PROCEDURE INFORMATION: Exam: XR Right Finger(s) Exam date and time: 10/03/2023 6:19 PM Age: 38 years old Clinical indication: Other: First digit TECHNIQUE: Imaging protocol: Radiologic exam of the right fingers. Views: Minimum 2 views. COMPARISON: CR XR FOREARM RT 12/05/2019 8:47 AM FINDINGS: Bones/joints: Normal. No fracture, dislocation or osseous abnormality. No arthropathic changes. Soft tissues: Soft tissue swelling of the thumb. IMPRESSION: No bony trauma. Dictated and Authenticated by: Joesph Stanton MD. Ordering:ANNMARIE Gomez MD
--- NOTE | 2023-10-04 16:04 | ED.GENADUL_ITS ---
Discharge Plan Discharge Details Chief Complaint: Orthopedic Primary Care Provider: Glenn Tinajero ED Provider: Patricia Pereira Home Meds and New Rx's Prescriptions: No Action gabapentin 800 mg tablet 800 mg PO QID Patient Comments: TAKE ONE TABLET BY MOUTH FOUR TIMES A DAY methadone 10 mg/mL Concentrate 120 mg PO DAILY Rx Instructions: CONFIRMED DOSE WITH [facility] 08/20/21 125MG QAM duloxetine 60 mg capsule,delayed release(DR/EC) 60 mg PO DAILY Patient Comments: Take 1 capsule by mouth once a day take 1 capsule by mouth daily naloxone 4 mg/actuation spray,non-aerosol 4 mg intranasal Q2M PRNQty: 2 12RF Rx Instructions: spray 1 dose into ONE nostril; alternate nostrils w each dose until help arrives methylphenidate HCl [Ritalin LA] 40 mg capsule,ER biphasic 50-50 40 mg PO DAILY Patient Comments: Take 1 capsule by mouth once a day furosemide 20 mg tablet 20 mg PO DAILY PRN PRN (Reason: Edema) Patient Comments: 1 tablet by mouth once a day as needed TAKE ONE TABLET BY MOUTH EVERY DAY as needed for edema acetaminophen 500 mg tablet 1,000 mg PO Q6H PRNQty: 40 0RF ibuprofen 800 mg tablet 800 mg PO Q8H PRNQty: 15 0RF Discharge Data Discharge Date/Time-TO BE ENTERED AT DEPARTURE: 10/03/23 18:56 HPI General Date/Time Provider Initiated Documentation: 10/03/23 18:04 . HPI Narrative: This 38-year-old female presents with injury to right thumb 3 days prior to arrival. States she shut it in a car door. Now with ecchymosis worsening swelling presents for assessment. Denies chance of . Denies any injections into the affected area. Thinks tetanus is up-to-date. Related Data Home Medications ?Medication ?Instructions ?Recorded ?Confirmed gabapentin 800 mg tablet 800 mg PO QID 06/02/21 10/03/23 methadone 10 mg/mL oral concentrate 120 mg PO DAILY 06/02/21 10/03/23 furosemide 20 mg tablet 20 mg PO DAILY PRN PRN Edema 12/03/22 10/03/23 methylphenidate HCl 40 mg biphasic 40 mg PO DAILY 12/03/22 10/03/23 50-50 capsule,extended release (Ritalin LA) duloxetine 60 mg capsule,delayed 60 mg PO DAILY 12/22/22 10/03/23 release naloxone 4 mg/actuation nasal spray 4 mg intranasal Q2M PRN #2 ea 12/25/22 10/03/23 acetaminophen 500 mg tablet 1,000 mg (2 x 500 mg) PO Q6H PRN 08/28/23 10/03/23 #40 tabs ibuprofen 800 mg tablet 800 mg PO Q8H PRN #15 tabs 08/28/23 10/03/23 Previous Rx's ?Medication ?Instructions ?Recorded naloxone 4 mg/actuation nasal spray 4 mg intranasal Q2M PRN #2 ea 12/25/22 acetaminophen 500 mg tablet 1,000 mg (2 x 500 mg) PO Q6H PRN 08/28/23 #40 tabs ibuprofen 800 mg tablet 800 mg PO Q8H PRN #15 tabs 08/28/23 Allergies Allergy/AdvReac Type Severity Reaction Status Date / Time bupropion HCl (From AdvReac Intermediate Contraindic Verified 10/03/23 17:32 Wellbutrin SR) ated General Stated Complaint: Orthopedic CELESTE: 4 Exam Narrative Exam Narrative: Left thumb with what appears to be purulent drainage in the tuft, swelling noted to the thumb, neurovascularly intact, no crepitus, no subungual hematoma Course Vital Signs Vital signs: Vital Signs Temperature 36.5 C 10/03/23 17:28 Pulse 69 10/03/23 17:28 Respiratory Rate 16 10/03/23 17:28 Blood Pressure 133/79 10/03/23 17:28 Pulse Oximetry 100 10/03/23 17:28 Temperature 36.5 C 10/03/23 17:28 Pulse 69 10/03/23 17:28 Respiratory Rate 16 10/03/23 17:28 Respiratory Effort Normal 10/03/23 17:32 Blood Pressure 133/79 10/03/23 17:28 Pulse Oximetry 100 10/03/23 17:28 Pain Level 4 10/03/23 19:14 Medical Decision Making 38-year-old female with history of polysubstance abuse presenting with left thumb injury with suspected abscess. X-ray per radiology interpretation my review does not show acute abnormality. Attempt made to perform incision and drainage, I performed a portion of a ring block, however patient became very aggressive and agitated and refused continuation of the procedure. Approximately 3 cc of Marcaine was used on the radial aspect of the thumb. She is aware that she could lose the thumb should not have further investigation. She is alert and oriented and does not appear to be under the influence of any mood altering substances at time of my assessment. I walked out of the room to give the patient time to reconsider continuation of procedure. I was told that she was leaving the hospital prior to being able to reassess patient. I did discuss risks of leaving prior to completion of procedure. Quality:SDOH Health Related Social Needs: Health related social needs personal safety PFSH All Active Problems (Updated 09/08/23 @ 13:04 by Jj Ortiz MD) No-show for appointment (Acute) Pain (Acute) IVDU (intravenous drug user) (Acute) Effusion of knee joint, left (Acute) Fall (Acute) Methadone maintenance therapy patient (Acute) Cellulitis of left foot (Acute) Postop check (Acute) Wound infection (Acute) Wound dehiscence (Acute) Cardiac asystole (Acute) Hepatitis C (Chronic) Mild tricuspid regurgitation (Acute) Anemia (Chronic) Localized swelling of left lower extremity (Acute) Cellulitis (Acute) Smoker (Acute) Viral illness (Acute) History of prior with IUGR (Acute 01/11/15) History of kidney injury (Acute 01/17/16) Acute January, History of drug abuse (Acute 01/17/16) In IP treatment at [place], no longer on methadone as of 01/17/16. Family court is close to resolved - will end . She is expecting 1st daughter to come home. Depression (Acute 01/11/15) Chronic hepatitis C without hepatic coma (Chronic 01/11/15) Cardiomyopathy (Chronic 01/22/16) Anemia of chronic disease (Acute 01/17/16) ADHD, hyperactive-impulsive type (Chronic 05/14/16) Insomnia (Acute) DVT prophylaxis (Acute) Fever (Acute) Prepatellar bursitis of right knee (Acute) Anxiety (Chronic) Anemia (Chronic) Opioid dependence (Chronic) Mitral regurgitation (Chronic) Edema (Acute) Medical History Lack of intravenous access IV drug user Left posterior fascicular block (LPFB) RBBB Fungemia Closed head injury Cardiac arrest with successful resuscitation Pulmonary nodules Anemia Scalded skin syndrome Alcohol abuse Hx of cocaine abuse Personality disorder Herpes, vulvar PTSD (post-traumatic stress disorder) ADHD Subacute endocarditis (01/22/16) MSSA endocarditis January, HSV infection Hx of who one week after . ? HSV or H1N1 infection. Pt has been on prophylaxis with pregnancies. Depression difficulty bonding with 2nd child. child removed from her custody. was on Wellbutrin but had sz and not on meds at this time. has appt with counselor 03/2015 Surgical History section (11/24/12) PCD @ 35w. IUGR. [facility]. [id number] [facility] [place]. Pt arrived in labor and declined SUN. [facility]. [facility]. Amputation 12/23/16;[facility]; RIGHT BELOW THE KNEE Family History Mother No problems noted. Father No problems noted. Brother No problems noted. Grandfather No problems noted. Grandfather No problems noted. Grandmother No problems noted. Grandmother No problems noted. Son No problems noted. Son No problems noted. Daughter No problems noted. Daughter No problems noted. Social History Smoking/Tobacco Use Status: Current every day Tobacco Type: cigarettes Smoking risk assessment performed?: Yes Alcohol Intake: current Alcohol Intake frequency: a few times a month Alcohol type: beer Drug use: Occasionally Substance use type: former substance user, marijuana, crack/cocaine and heroin Housing: house Do you feel safe at home: Yes Do you feel safe in your relationship?: Yes Additional Social history: pt states she is on methadone History History 4 Para 4 Hx # Term Pregnancies Multiple births Hx # Pregnancies Ectopic pregnancies AB induced Hx Number of Living Children 3 AB spontaneous Past Pregnancies Del. Date GA/Weeks # Preg Succ Route Wgt Sex Labor Lgth Anesth esia Location [facility] 12/28/20 25 Delivery Date: 12/28/20 Last Updated by: Roxanna Rocha LPN Patient transferred [facility] Have you Been Recently Intoxicated or Drunk Within the Last 30 days?: Yes Have you Ever Experienced Previous Episodes of Alcohol Withdrawal?: No Have you ever Experienced Withdrawal Seizures?: No Have you ever Experienced Delirium Tremens(DT)s?: No Have you ever undergone Alcohol Rehabilitation Treatment (i.e, inpt ot outpatient treatment programs)?: No Have you ever Experienced Blackouts?: No Have you ever Combined Alcohol with other Downers within the last 90 days?: No Have you ever Combined Alcohol with any other Substance of Abuse during the last 90 days?: No Positive Blood Alcohol level on Presentation? [PCS.BAL]: No Evidence of Increased Autonomic Activity (i.e. HR>120, tremor, sweating, agitation, nausea)?: No Result: 1
== END 2023-10-03 18:56 | disposition left against medical advice (07) ==
PROVIDERS: Emergency Provider Physician Assistant; PCP Physician Assistant
DX: S69.81XA Other specified injuries of right wrist, hand and finger(s), initial encounter (principal); F17.210 Nicotine dependence, cigarettes, uncomplicated; Z86.74 Personal history of sudden cardiac arrest; W23.0XXA Caught, crushed, jammed, or pinched between moving objects, initial encounter; Y93.89 Activity, other specified; Y92.018 Other place in single-family (private) house as the place of occurrence of the external cause; Z53.29 Procedure and treatment not carried out because of patient's decision for other reasons
CPT/HCPCS: 99283; 73140

== ENCOUNTER 2023-10-09 02:09 | Outpatient (RCR) | payer MEDICAID, SELFPAY ==
[2023-10-09] MEDS: DALBAVANCIN 1,500 MG in DEXTROSE 5%-WATER 325 ML 650 MG IVPB (13:13)
[2023-10-09] MEDS: Normal Saline Flush 10 ML SYR IVP (13:20)
== END 2023-11-07 23:59 | disposition home or self-care (01) ==
LOC: INF 02:09
PROVIDERS: PCP Physician Assistant; Visit Provider Internal Medicine
DX: L03.011 Cellulitis of right finger (principal)
CPT/HCPCS: 96365; J0875

== ENCOUNTER 2023-11-27 11:04 | Emergency (ER) | payer MEDICAID, SELFPAY ==
[2023-11-27 11:23] VITALS: BP 124/70; PULSE 66; RESP 18; TEMP 36.4; O2SAT 99
[2023-11-27 11:49] LABS: Bilirubin Negative (Negative); Blood Moderate (Negative); Clarity Cloudy (Clear); Glucose Negative (Negative); Ketones Negative (Negative); Leukocyte Esterase Moderate (Negative); Nitrite Positive (Negative); Specific Gravity 1.025 (1.005-1.025); Urobilinogen 0.2 mg/dL (Up to 0.2)
--- NOTE | 2023-11-27 11:52 | W.ED.GENAD ---
Discharge Plan Disposition Patient Disposition: Home Condition: Stable Discharge Details Clinical Impression: Urinary tract infection Primary Care Provider: Glenn Tinajero ED Provider: Theodore Pink Home Meds and New Rx's Prescriptions: New cefuroxime axetil 500 mg tablet 500 mg PO BID 10 Days Qty: 20 0RF Continued gabapentin 800 mg tablet 800 mg PO QID Patient Comments: TAKE ONE TABLET BY MOUTH FOUR TIMES A DAY methadone 10 mg/mL Concentrate 120 mg PO DAILY Rx Instructions: CONFIRMED DOSE WITH [facility] 08/20/21 125MG QAM duloxetine 60 mg capsule,delayed release(DR/EC) 60 mg PO DAILY Patient Comments: Take 1 capsule by mouth once a day take 1 capsule by mouth daily naloxone 4 mg/actuation spray,non-aerosol 4 mg intranasal Q2M PRNQty: 2 12RF Rx Instructions: spray 1 dose into ONE nostril; alternate nostrils w each dose until help arrives methylphenidate HCl [Ritalin LA] 40 mg capsule,ER biphasic 50-50 40 mg PO DAILY Patient Comments: Take 1 capsule by mouth once a day furosemide 20 mg tablet 20 mg PO DAILY PRN PRN (Reason: Edema) Patient Comments: 1 tablet by mouth once a day as needed TAKE ONE TABLET BY MOUTH EVERY DAY as needed for edema acetaminophen 500 mg tablet 1,000 mg PO Q6H PRNQty: 40 0RF ibuprofen 800 mg tablet 800 mg PO Q8H PRNQty: 15 0RF Discharge Instructions Instructions: Cefuroxime, Urinary Tract Infection, Adult ED Additional Instructions: You were seen in the emergency department for your dysuria, you have some left-sided flank pain and some chills over the past couple days were going to treat you for both UTI and kidney infection simultaneously. I sent cefuroxime to [facility] in [place], please stay well-hydrated. Please use therapeutic dosing of Tylenol (acetamenophen) & Advil (ibuprofen) in an alternating fashion as follows: Take 1000mg of Tylenol every 6 hours without missing doses- that is 4 times per day. [place] in between the Tylenol dosings, take 400-600mg of Advil also on a 6 hour schedule, that is also 4 times per day. The daily maximum dosing of Tylenol is 4000mg, and the daily maximum dosing of Advil is 2400mg. This is safe to do for weeks. Please note that some common cold medications & prescription pain medications may contain acetamenophen and you need to read OTC drug labels and factor that in to maximum daily dosings. Please return to the emergency department for any severe acute worsening of chills, nausea, weakness, fast heart rate, urinary retention or obstruction Referrals: Glenn Tinajero [Primary Care Provider] - Discharge Data Discharge Date/Time-TO BE ENTERED AT DEPARTURE: 11/27/23 12:32 HPI General Date/Time Provider Initiated Documentation: 11/27/23 11:07. HPI Narrative: 38 year-old female presents to ED today by POV/ambulating with a chief complaint of dysuria, urinary frequency, some flank pain with onset for the past 3 days. Quality described as burning with urination, no radiation to fever, nausea, vomiting, weakness, chest pain, shortness of breath, upper abdominal pain. Severity is described as moderate. Palliating factors include nothing specific attempted. Provoking factors include nothing specific. Events leading up to the incident/Associated Symptoms: Patient has history of UTIs. Patient not anticoagulated. Related Data Home Medications ?Medication ?Instructions ?Recorded ?Confirmed gabapentin 800 mg tablet 800 mg PO QID 06/02/21 11/27/23 methadone 10 mg/mL oral concentrate 120 mg PO DAILY 06/02/21 11/27/23 furosemide 20 mg tablet 20 mg PO DAILY PRN PRN Edema 12/03/22 11/27/23 methylphenidate HCl 40 mg biphasic 40 mg PO DAILY 12/03/22 11/27/23 50-50 capsule,extended release (Ritalin LA) duloxetine 60 mg capsule,delayed 60 mg PO DAILY 12/22/22 11/27/23 release naloxone 4 mg/actuation nasal spray 4 mg intranasal Q2M PRN #2 ea 12/25/22 11/27/23 acetaminophen 500 mg tablet 1,000 mg (2 x 500 mg) PO Q6H PRN 08/28/23 11/27/23 #40 tabs ibuprofen 800 mg tablet 800 mg PO Q8H PRN #15 tabs 08/28/23 11/27/23 cefuroxime axetil 500 mg tablet 500 mg PO BID 10 days #20 tabs 11/27/23 Previous Rx's ?Medication ?Instructions ?Recorded naloxone 4 mg/actuation nasal spray 4 mg intranasal Q2M PRN #2 ea 12/25/22 acetaminophen 500 mg tablet 1,000 mg (2 x 500 mg) PO Q6H PRN 08/28/23 #40 tabs ibuprofen 800 mg tablet 800 mg PO Q8H PRN #15 tabs 08/28/23 cefuroxime axetil 500 mg tablet 500 mg PO BID 10 days #20 tabs 11/27/23 Allergies Allergy/AdvReac Type Severity Reaction Status Date / Time bupropion HCl (From AdvReac Intermediate Contraindic Verified 11/27/23 11:28 Wellbutrin SR) ated General Stated Complaint: Urinary CELESTE: 4 Review of Systems All systems reviewed & are unremarkable except as noted in HPI and below Exam Narrative Exam Narrative: GENERAL APPEARANCE: Well-nourished, non-toxic, awake and alert, atraumatic, no acute distress. SKIN: Warm, pink, dry, intact, without rashes/lesions/ulcerations. HEAD: Normocephalic, atraumatic, normal hair distribution for gender/age. EYES: Normal conjunctiva, no exudates on lids/lashes. ENT: Nares patent, no circumoral cyanosis, no facial swelling NECK: Supple, trachea midline, painless cervical ROM. LUNGS/CHEST: Non-labored respirations, normal A/P diameter, symmetrical expansion, no chest wall deformity HEART (CV/PV): No peripheral edema, no JVD. ABDOMEN: Soft, non-distended, no guarding, L flank CVA tenderness to percussion MSK: Normal ROM, no swelling/deformity to bilateral UEs or LEs, moving all extremities without weakness, no cyanosis, spine midline without tenderness, normal curvature. NEURO: Mental Status AAOx4 - alert to person, place, time, events No facial droop, no forehead involvement. Motor: No focal weakness - strength 5/5 in bilateral UEs and LEs, proximal and distal, symmetric. Sensory: sensation intact to light touch globally. Gait normal: patient ambulated without ataxia into ED room. PSYCH: euthymic, cooperative, pleasant, appropriate speech Course Vital Signs Vital signs: Vital Signs Temperature 36.4 C 11/27/23 11:23 Pulse 66 11/27/23 11:23 Respiratory Rate 18 11/27/23 11:23 Blood Pressure 124/70 11/27/23 11:23 Pulse Oximetry 99 11/27/23 11:23 Temperature 36.4 C 11/27/23 11:23 Temperature Source Temporal Artery Scan 11/27/23 11:23 Pulse 66 11/27/23 11:23 Respiratory Rate 18 11/27/23 11:23 Blood Pressure 124/70 11/27/23 11:23 Pulse Oximetry 99 11/27/23 11:23 Oxygen Delivery Method Room Air 11/27/23 11:23 Oxygen Flow Rate 0 11/27/23 11:23 Lab/Test Results Lab/Test Results: Laboratory Tests Range/Units 11/27/23 10:30 Urine Color (Yellow) Yellow Urine Clarity (Clear) Cloudy Urine pH (5-8) 7.0 Ur Specific [place] (1.005-1.025) 1.025 Urine Protein (Neg-Trace) mg/dL 30 H Urine Ketones (Negative) mg/dL Negative Urine Blood (Negative) Moderate H Urine Nitrite (Negative) Positive H Urine Bilirubin (Negative) Negative Urine Urobilinogen (Up to 0.2) mg/dL 0.2 Ur Leukocyte Esterase (Negative) Moderate H Urine Glucose (Negative) mg/dL Negative POC- Test(urine) Negative Medical Decision Making This dictation utilizes [id number] dictation software and may contain unedited grammatical errors. 38 year-old female presents to ED today by POV/ambulating with a chief complaint of dysuria, urinary frequency, some flank pain with onset for the past 3 days. Quality described as burning with urination, no radiation to fever, nausea, vomiting, weakness, chest pain, shortness of breath, upper abdominal pain. Severity is described as moderate. Palliating factors include nothing specific attempted. Provoking factors include nothing specific. Events leading up to the incident/Associated Symptoms: Patient has history of UTIs. Patients' medical history: History of IV drug use, history of alcohol and cocaine abuse, subacute endocarditis, history of kidney injury. Family and social history: noncontributory. Pertinent exam findings / vital signs include mild lower abdominal tenderness, mild L flank tenderness to percussion, nontoxic vitals, afebrile, benign cardiopulmonary status. Differential / pathologies of concern include UTI, Pyelonephritis, unlikely sepsis. Diagnostic studies of: -UA - shows + nitrites, treating for UTI. Interventions of: -Rx Cefuroxime. ED Course/Assessment/Plan: 38-year-old female presents with dysuria and cramping with some mild left flank tenderness to percussion, treating for empiric pyelonephritis with subjective chills without overt fever with nitrite seen on urine, stressed strict return criteria for acute worsening, patient was provided with 1 dose of Azo prior to discharge. Findings not consistent with obstructive uropathy, toxic presentation, sepsis. Disposition of urinary tract infection. Patient verbalized understanding of the plan and return to ED criteria and engaged in shared decision making. Medical Records Medical records reviewed: Yes I reviewed the patient's medical records. Lab Data Lab results reviewed: Yes I reviewed the patient's lab results. Labs: Laboratory Tests Range/Units 11/27/23 10:30 Urine Color (Yellow) Yellow Urine Clarity (Clear) Cloudy Urine pH (5-8) 7.0 Ur Specific [place] (1.005-1.025) 1.025 Urine Protein (Neg-Trace) mg/dL 30 H Urine Ketones (Negative) mg/dL Negative Urine Blood (Negative) Moderate H Urine Nitrite (Negative) Positive H Urine Bilirubin (Negative) Negative Urine Urobilinogen (Up to 0.2) mg/dL 0.2 Ur Leukocyte Esterase (Negative) Moderate H Urine RBC (0-2) HPF 10-20 H Urine WBC (0-5) HPF 10-20 H Ur Epithelial Cells (Negative) HPF Many Urine Crystals (Negative) HPF Negative Urine Bacteria (Negative) HPF Moderate Urine Casts (Negative) LPF Negative Urine Mucus (Negative) Moderate Ur Culture Indicated? No/Sq. Contamination Urine Glucose (Negative) mg/dL Negative Quality:SDOH Health Related Social Needs: Health related social needs personal safety PFSH All Active Problems (Updated 11/27/23 @ 12:04 by CHARLIE Park) Urinary tract infection (Acute) No-show for appointment (Acute) Pain (Acute) IVDU (intravenous drug user) (Acute) Effusion of knee joint, left (Acute) Fall (Acute) Methadone maintenance therapy patient (Acute) Cellulitis of left foot (Acute) Postop check (Acute) Wound infection (Acute) Wound dehiscence (Acute) Cardiac asystole (Acute) Hepatitis C (Chronic) Mild tricuspid regurgitation (Acute) Anemia (Chronic) Localized swelling of left lower extremity (Acute) Cellulitis (Acute) Smoker (Acute) Viral illness (Acute) History of prior with IUGR (Acute 11/05/15) History of kidney injury (Acute 01/17/16) Acute January, History of drug abuse (Acute 01/17/16) In IP treatment at [place], no longer on methadone as of 01/17/16. Family court is close to resolved - will end . She is expecting 1st daughter to come home. Depression (Acute 01/11/15) Chronic hepatitis C without hepatic coma (Chronic 01/11/15) Cardiomyopathy (Chronic 01/22/16) Anemia of chronic disease (Acute 01/17/16) ADHD, hyperactive-impulsive type (Chronic 05/14/16) Insomnia (Acute) DVT prophylaxis (Acute) Fever (Acute) Prepatellar bursitis of right knee (Acute) Anxiety (Chronic) Anemia (Chronic) Opioid dependence (Chronic) Mitral regurgitation (Chronic) Edema (Acute) Medical History Lack of intravenous access IV drug user Left posterior fascicular block (LPFB) RBBB Fungemia Closed head injury Cardiac arrest with successful resuscitation Pulmonary nodules Anemia Scalded skin syndrome Alcohol abuse Hx of cocaine abuse Personality disorder Herpes, vulvar PTSD (post-traumatic stress disorder) ADHD Subacute endocarditis (01/22/16) MSSA endocarditis January, HSV infection Hx of infant who one week after . ? HSV or H1N1 infection. Pt has been on prophylaxis with pregnancies. Depression difficulty bonding with 2nd child. child removed from her custody. was on Wellbutrin but had sz and not on meds at this time. has appt with counselor 03/2015 Surgical History section (11/24/12) PCD @ 35w. [id number] [place]. 03/26/[place] RCD. Pt arrived in labor and declined SUN. [facility]. Jessica. Amputation 12/23/16;[facility]; RIGHT BELOW THE KNEE Family History Mother No problems noted. Father No problems noted. Brother No problems noted. Grandfather No problems noted. Grandfather No problems noted. Grandmother No problems noted. Grandmother No problems noted. Son No problems noted. Son No problems noted. Daughter No problems noted. Daughter No problems noted. Social History Smoking/Tobacco Use Status: Current every day Tobacco Type: cigarettes Smoking risk assessment performed?: Yes Alcohol Intake: current Alcohol Intake frequency: a few times a month Alcohol type: beer Drug use: Occasionally Substance use type: former substance user, marijuana, crack/cocaine and heroin Housing: house Do you feel safe at home: Yes Do you feel safe in your relationship?: Yes Additional Social history: pt states she is on methadone History History 4 Para 4 Hx # Term Pregnancies Multiple births Hx # Pregnancies Ectopic pregnancies AB induced Hx Number of Living Children 3 AB spontaneous Past Pregnancies Del. Date GA/Weeks # Preg Succ Route Wgt Sex Labor Lgth Anesthesia Location [facility] 12/28/20 25 Delivery Date: 12/28/20 Last Updated by: Roxanna Rocha LPN Patient transferred OB care to [facility]
[2023-11-27 11:54] LABS: Bacteria Moderate HPF (Negative); Crystals Negative HPF (Negative); Epithelial Cells Many HPF (Negative); Mucus Moderate (Negative)
[2023-11-27 11:55] LABS: C & S Indicated? No/Sq. Contamination; Casts Negative LPF (Negative)
[2023-11-27 12:26] VITALS: BP 128/80; PULSE 82; RESP 18; TEMP 36.8; O2SAT 98
[2023-11-27] MEDS: Phenazopyridine 200 MG TAB (12:32)
== END 2023-11-27 12:32 | disposition home or self-care (01) ==
PROVIDERS: Emergency Provider Physician Assistant; PCP Physician Assistant
DX: N39.0 Urinary tract infection, site not specified (principal); F17.210 Nicotine dependence, cigarettes, uncomplicated; Z86.74 Personal history of sudden cardiac arrest
CPT/HCPCS: 81025; 99283; 81003; 81015

== ENCOUNTER 2024-01-12 19:23 | Emergency (ER) | payer MEDICAID, SELFPAY ==
[2024-01-12] VITALS (90 sets, daily range): BP systolic 99–150; BP diastolic 44–69; PULSE 70–97; RESP 10–66; TEMP 35.8; O2SAT 90–98
--- NOTE | 2024-01-12 19:15 | RT.EKG_ITS ---
APPROVED REPORT Exam: Resting ECG Reason for Exam: meds Patient Location: E HR:80 bpm ECG Measurements Heart Rate 80 AXIS KS 155 P 84 QRSd 96 QRS 84 QT 438 T 67 QTc 504 Conclusion Sinus rhythm 80 normal axis no stemi
--- NOTE | 2024-01-12 19:31 | ED.GENADUL_ITS ---
Discharge Plan Discharge Details Chief Complaint: AMS/LOC Primary Care Provider: Glenn Tinajero ED Provider: Theodore Pink Home Meds and New Rx's Prescriptions: No Action gabapentin 800 mg tablet 800 mg PO QID Patient Comments: TAKE ONE TABLET BY MOUTH FOUR TIMES A DAY methadone 10 mg/mL Concentrate 120 mg PO DAILY Rx Instructions: CONFIRMED DOSE WITH MACARIO[facility] 08/20/21 125MG QAM duloxetine 60 mg capsule,delayed release(DR/EC) 60 mg PO DAILY Patient Comments: Take 1 capsule by mouth once a day take 1 capsule by mouth daily naloxone 4 mg/actuation spray,non-aerosol 4 mg intranasal Q2M PRNQty: 2 12RF Rx Instructions: spray 1 dose into ONE nostril; alternate nostrils w each dose until help arrives methylphenidate HCl [Ritalin LA] 40 mg capsule,ER biphasic 50-50 40 mg PO DAILY Patient Comments: Take 1 capsule by mouth once a day furosemide 20 mg tablet 20 mg PO DAILY PRN PRN (Reason: Edema) Patient Comments: 1 tablet by mouth once a day as needed TAKE ONE TABLET BY MOUTH EVERY DAY as needed for edema acetaminophen 500 mg tablet 1,000 mg PO Q6H PRNQty: 40 0RF ibuprofen 800 mg tablet 800 mg PO Q8H PRNQty: 15 0RF HPI General Date/Time Provider Initiated Documentation: 01/12/24 19:31 . HPI Narrative: 38 year-old female presents to ED today by EMS with a chief complaint of intoxication, patient recently got out of rehab and return to her family's home, went into the bathroom to ingest some substances and came out and was screaming and writhing on the floor whether their mother called the ambulance with onset just prior to arrival. Quality described as patient is restless and speaking in inappropriate words but appears intoxicated and not altered from seizure activ ity or other neurologic condition, no radiation to fever, toxic vitals, patient endorses taking down/heroin. Severity is described as unable to quantify/10. Palliating factors include nothing specific. Provoking factors include substance abuse. Patient not anticoagulated. Related Data Home Medications ?Medication ?Instructions ?Recorded ?Confirmed gabapentin 800 mg tablet 800 mg PO QID 06/02/21 11/27/23 methadone 10 mg/mL oral concentrate 120 mg PO DAILY 06/02/21 11/27/23 furosemide 20 mg tablet 20 mg PO DAILY PRN PRN Edema 12/03/22 11/27/23 methylphenidate HCl 40 mg biphasic 40 mg PO DAILY 12/03/22 11/27/23 50-50 capsule,extended release (Ritalin LA) duloxetine 60 mg capsule,delayed 60 mg PO DAILY 12/22/22 11/27/23 release naloxone 4 mg/actuation nasal spray 4 mg intranasal Q2M PRN #2 ea 12/25/22 11/27/23 acetaminophen 500 mg tablet 1,000 mg (2 x 500 mg) PO Q6H PRN 08/28/23 11/27/23 #40 tabs ibuprofen 800 mg tablet 800 mg PO Q8H PRN #15 tabs 08/28/23 11/27/23 Previous Rx's ?Medication ?Instructions ?Recorded naloxone 4 mg/actuation nasal spray 4 mg intranasal Q2M PRN #2 ea 12/25/22 acetaminophen 500 mg tablet 1,000 mg (2 x 500 mg) PO Q6H PRN 08/28/23 #40 tabs ibuprofen 800 mg tablet 800 mg PO Q8H PRN #15 tabs 08/28/23 Allergies Allergy/AdvReac Type Severity Reaction Status Date / Time bupropion HCl (From AdvReac Intermediate Contraindic Verified 11/27/23 11:28 Wellbutrin SR) ated General CELESTE: 4 Review of Systems All systems reviewed & are unremarkable except as noted in HPI and below Exam Narrative Exam Narrative: GENERAL APPEARANCE: Well-nourished, non-toxic, awake and intoxicated, atraumatic, no acute distress. SKIN: Warm, pink, dry, innumerous lesions of minor staph infection consistent with chronic IV drug use HEAD: Normocephalic, atraumatic, normal hair distribution for gender/age. EYES: Normal conjunctiva, no exudates on lids/lashes. ENT: Nares patent, no circumoral cyanosis, no facial swelling NECK: Supple, trachea midline, painless cervical ROM. LUNGS/CHEST: Lungs CTA bilaterally-no rhonchi/rales/wheezes diffusely, non- labored respirations, normal A/P diameter, symmetrical expansion, no chest wall deformity HEART (CV/PV): Regular rate and rhythm without murmur, no peripheral edema, no JVD. ABDOMEN: Soft, non-distended, no guarding, no overt tenderness. 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 Motor: No focal weakness - strength 5/5 in bilateral UEs and LEs, proximal and distal, symmetric. Sensory: sensation intact to light touch globally. Gait NT. PSYCH: dysthymic, cooperative, unpleasant, appropriate speech when prompted Medical Decision Making This dictation utilizes [id number] dictation software and may contain unedited grammatical errors. 38 year-old female presents to ED today by EMS with a chief complaint of intoxication, patient recently got out of rehab and return to her family's home, went into the bathroom to ingest some substances and came out and was screaming and writhing on the floor whether their mother called the ambulance with onset just prior to arrival. Quality described as patient is restless and speaking in inappropriate words but appears intoxicated and not altered from seizure activity or other neurologic condition, no radiation to fever, toxic vitals, patient endorses taking down/heroin. Severity is described as unable to quantify. Palliating factors include nothing specific. Provoking factors include substance abuse. Patients' medical history: Exhausted vascular access, IV drug use, right bundle branch block, alcohol abuse, cocaine abuse, personality disorder, hepatitis C, cardiomyopathy, opioid dependence. Family and social history: Endorses illicit drug use including heroin, also had her gabapentin and Ritalin at her normal doses she states, denies alcohol use. Pertinent exam findings / vital signs include innumerous minor lesions consistent with long-term IV drug use and likely subacute staph infections in various places, intoxicated on some sort of illicit substance that does not seem like at the present, otherwise nontoxic vitals and answering questions when prompted but easily distracted, no respiratory depression. Differential / pathologies of concern include illicit substance use, not seizure activity. Diagnostic studies of: -CBC, CMP, ethyl alcohol, TSH, lipase, BMP, magnesium, troponin, UDS, urinalysis, EKG. -CBC shows no leukocytosis -CMP shows no actionable abnormality -Troponin negative -BNP negative -Magnesium within normal limits -TSH within normal limits -Alcohol level negative -UA and UDS pending at time of signout Interventions of: -None, patient's vitals are stable she is resting comfortably and sleeping without signs of respiratory depression or hypoxia, remaining hemodynamically stable as observed on monitor. ED Course/Assessment/Plan: 38-year-old female landed to the bathroom in her parents home and ingested some sort of substance there is question whether she took her regular doses of Ritalin and gabapentin, she endorses taking down which is likely heroin but appears to be more intoxicated on methamphetamine like substance. She is resting comfortably and required no interventions and was cooperative with care before taking a nap. She likely needs to metabolize to discharge, patient signed out to oncoming provider Dr. Josselyn Yeung at shift change. Findings not consistent with respiratory depression, overdose, seizure activity. Disposition of Substance Abuse Disorder. Patient verbalized understanding of the plan and return to ED criteria and engaged in shared decision making. Medical Records Medical records reviewed: Yes I reviewed the patient's medical records. Lab Data Lab results reviewed: Yes I reviewed the patient's lab results. Labs: Laboratory Tests Range/Units 01/12/24 01/12/24 01/12/24 19:34 19:34 19:34 WBC (4.4-10.8) 10^3/uL 8.01 RBC (3.93-5.22) 10^6/uL 4.44 Hgb (11.2-15.7) g/dL 12.8 Hct (36.0-46.0) % 38.1 MCV (80-95) fL 86 MCH (27.0-33.0) pg 28.8 MCHC (32.0-36.0) % 33.6 RDW (11.7-14.6) % 13.1 Plt Count (130-400) 10^3/uL 325 MPV (8.0-11.0) fL 8.7 Immature Gran % % 0.1 Neutrophils % % 61.7 Lymphocytes % % 28.3 Monocytes % % 8.2 Eosinophils % % 1.2 Basophils % % 0.5 Nucleated RBC % (0.0-0.3) % 0.0 Absolute Neutrophils (1.2-6.7) 10^3/uL 4.93 Absolute Lymphocytes (1.2-3.4) 10^3/uL 2.27 Absolute Monocytes (0.1-0.8) 10^3/uL 0.66 Absolute Eosinophils (0.0-0.7) 10^3/uL 0.10 Absolute Basophils (0.0-0.2) 10^3/uL 0.04 Sodium (136-145) mmol/L 139 Potassium (3.5-5.1) mmol/L 4.8 Chloride (98-107) mmol/L 102 Carbon Dioxide (21.0-32.0) mmol/L 25.9 Anion Gap (3-11) mmol/L 11.1 H BUN (7-18) mg/dL 14 Creatinine (0.55-1.02) mg/dL 1.0 Est GFR (CKD-EPI 2020) (mL/min/1.73m2) 73.49 Glucose (74-106) mg/dL 95 Calcium (8.5-10.1) mg/dL 9.6 Magnesium (1.8-2.4) mg/dL 2.4 Cancelled Total Bilirubin (0.2-1.0) mg/dL 0.63 AST (15-37) U/L 39 H ALT (14-59) U/L 29 Alkaline Phosphatase (46-116) U/L 120 H Troponin I (<or=51) ng/L 4 Cancelled NT-Pro-B Natriuret Pep (<300) pg/mL 289 Total Protein (6.4-8.2) g/dL Albumin (3.4-5.0) g/dL Lipase (16-77) U/L TSH (0.36-3.74) uIU/mL Ethyl Alcohol (<10) mg/dL Range/Units 01/12/24 01/12/24 19:34 19:34 WBC (4.4-10.8) 10^3/uL RBC (3.93-5.22) 10^6/uL Hgb (11.2-15.7) g/dL Hct (36.0-46.0) % MCV (80-95) fL MCH (27.0-33.0) pg MCHC (32.0-36.0) % RDW (11.7-14.6) % Plt Count (130-400) 10^3/uL MPV (8.0-11.0) fL Immature Gran % % Neutrophils % % Lymphocytes % % Monocytes % % Eosinophils % % Basophils % % Nucleated RBC % (0.0-0.3) % Absolute Neutrophils (1.2-6.7) 10^3/uL Absolute Lymphocytes (1.2-3.4) 10^3/uL Absolute Monocytes (0.1-0.8) 10^3/uL Absolute Eosinophils (0.0-0.7) 10^3/uL Absolute Basophils (0.0-0.2) 10^3/uL Sodium (136-145) mmol/L Potassium (3.5-5.1) mmol/L Chloride (98-107) mmol/L Carbon Dioxide (21.0-32.0) mmol/L Anion Gap (3-11) mmol/L BUN (7-18) mg/dL Creatinine (0.55-1.02) mg/dL Est GFR (CKD-EPI 2020) (mL/min/1.73m2) Glucose (74-106) mg/dL Calcium (8.5-10.1) mg/dL Magnesium (1.8-2.4) mg/dL Total Bilirubin (0.2-1.0) mg/dL AST (15-37) U/L ALT (14-59) U/L Alkaline Phosphatase (46-116) U/L Troponin I (<or=51) ng/L NT-Pro-B Natriuret Pep (<300) pg/mL Cancelled Total Protein (6.4-8.2) g/dL 8.9 H Albumin (3.4-5.0) g/dL 4.1 Lipase (16-77) U/L 21 Cancelled TSH (0.36-3.74) uIU/mL 2.20 Ethyl Alcohol (<10) mg/dL < 3.0 Quality:SDOH Health Related Social Needs: Health related social needs problem related to primary support group(Z63.9) PFSH All Active Problems (Updated 12/28/23 @ 00:08 by LYUDMILA MUNGUIA) No-show for appointment (Acute) Pain (Acute) IVDU (intravenous drug user) (Acute) Effusion of knee joint, left (Acute) Fall (Acute) Methadone maintenance therapy patient (Acute) Cellulitis of left foot (Acute) Postop check (Acute) Wound infection (Acute) Wound dehiscence (Acute) Cardiac asystole (Acute) Hepatitis C (Chronic) Mild tricuspid regurgitation (Acute) Anemia (Chronic) Localized swelling of left lower extremity (Acute) Cellulitis (Acute) Smoker (Acute) Viral illness (Acute) History of prior with IUGR (Acute 01/11/15) History of kidney injury (Acute 01/17/16) Acute January, History of drug abuse (Acute 01/17/16) In IP treatment at [place], no longer on methadone as of 01/17/16. Family court is close to resolved - will end . She is expecting 1st daughter to come home. Depression (Acute 01/11/15) Chronic hepatitis C without hepatic coma (Chronic 01/11/15) Cardiomyopathy (Chronic 01/22/16) Anemia of chronic disease (Acute 01/17/16) ADHD, hyperactive-impulsive type (Chronic 05/14/16) Insomnia (Acute) DVT prophylaxis (Acute) Fever (Acute) Prepatellar bursitis of right knee (Acute) Anxiety (Chronic) Anemia (Chronic) Opioid dependence (Chronic) Mitral regurgitation (Chronic) Edema (Acute) Medical History Lack of intravenous access IV drug user Left posterior fascicular block (LPFB) RBBB Fungemia Closed head injury Cardiac arrest with successful resuscitation Pulmonary nodules Anemia Scalded skin syndrome Alcohol abuse Hx of cocaine abuse Personality disorder Herpes, vulvar PTSD (post-traumatic stress disorder) ADHD Subacute endocarditis (01/22/16) MSSA endocarditis January, HSV infection Hx of who one week after . ? HSV or H1N1 infection. Pt has been on prophylaxis with pregnancies. Depression difficulty bonding with 2nd child. child removed from her custody. was on Wellbutrin but had sz and not on meds at this time. has appt with counselor 03/2015 Surgical History section (11/24/12) PCD @ 35w. IUGR. NRFH. [id number]. [facility] [place]. 03/26/15 RCD. Pt arrived in labor and declined SUN. F. Jessica. Amputation 12/23/16;[facility]; RIGHT BELOW THE KNEE Family History Mother No problems noted. Father No problems noted. Brother No problems noted. Grandfather No problems noted. Grandfather No problems noted. Grandmother No problems noted. Grandmother No problems noted. Son No problems noted. Son No problems noted. Daughter No problems noted. Daughter No problems noted. Social History Smoking/Tobacco Use Status: Current every day Tobacco Type: cigarettes Smoking risk assessment performed?: Yes Alcohol Intake: current Alcohol Intake frequency: a few times a month Alcohol type: beer Drug use: Occasionally Substance use type: marijuana, crack/cocaine, heroin, amphetamines, opiates, IV drugs, methamphetamine and unknown Housing: house Do you feel safe at home: Yes Do you feel safe in your relationship?: Yes Additional Social history: pt states she is on methadone History History 4 Para 4 Hx # Term Pregnancies Multiple births Hx # Pregnancies Ectopic pregnancies AB induced Hx Number of Living Children 3 AB spontaneous Past Pregnancies Del. Date GA/Weeks # Preg Succ Route Wgt Sex [facility] Delivery Date: 12/28/20 Last Updated by: Roxanna Rocha LPN Patient transferred [facility]
[2024-01-12 19:41] LABS: Abs Immature Grans 0.01 10^3/uL (0.0-0.06); Absolute Basophil Count 0.04 10^3/uL (0.0-0.2); Absolute Lymphocyte Count 2.27 10^3/uL (1.2-3.4); Absolute Monocyte Count 0.66 10^3/uL (0.1-0.8); Absolute Neutrophil Count 4.93 10^3/uL (1.2-6.7); Basophils % 0.5 %; Eosinophils % 1.2 %; HCT 38.1 % (36.0-46.0); HGB 12.8 g/dL (11.2-15.7); Immature Grans % 0.1 %; Lymphocytes % 28.3 %; MCH 28.8 pg (27.0-33.0); MCHC 33.6 % (32.0-36.0); MCV 86 fL (80-95); MPV 8.7 fL (8.0-11.0); Monocytes % 8.2 %; Neutrophils % 61.7 %; Platelet Count 325 10^3/uL (130-400); RBC 4.44 10^6/uL (3.93-5.22); RDW 13.1 % (11.7-14.6); RDW-SD 40.8 fL; WBC 8.01 10^3/uL (4.4-10.8)
[2024-01-12 20:08] LABS: ALT 29 U/L (14-59); AST 39 U/L (15-37); Albumin 4.1 g/dL (3.4-5.0); Alkaline Phosphatase 120 U/L (46-116); Anion Gap 11.1 mmol/L (3-11); BUN 14 mg/dL (7-18); Bilirubin, Total 0.63 mg/dL (0.2-1.0); CO2 25.9 mmol/L (21.0-32.0); Calcium 9.6 mg/dL (8.5-10.1); Chloride 102 mmol/L (98-107); Estimated GFR 73.49 (mL/min/1.73m2); Glucose 95 mg/dL (74-106); Lipase 21 U/L (16-77); Magnesium 2.4 mg/dL (1.8-2.4); NT-proBNP 289 pg/mL (<300); Potassium 4.8 mmol/L (3.5-5.1); Sodium 139 mmol/L (136-145); Total Protein 8.9 g/dL (6.4-8.2); Troponin I 4 ng/L (<or=51)
[2024-01-12 20:21] LABS: ETHANOL BLOOD < 3.0 mg/dL (<10)
[2024-01-12 22:09] LABS: Troponin I 6 ng/L (<or=51)
--- NOTE | 2024-01-12 23:08 | ED.PROG_ITS ---
Date of service: 01/12/24 Time of Service: 22:30 Medical Decision Making This patient was signed out to me. Please see previous notes for H&P and initial eval. In brief, 38yo F presenting for substance abuse (reportedly on downer/heroin) however on arrival clinical presentation more consistent with methamphetamines/sympathomimetics. EKG and laboratory workup unremarkable. Signed out pending sober re-eval. UDS/UA ordered, pt declines to provide sample. No urinary symptoms and UDS will not private branch exchange service advisor; orders canceled. On reassessment she is awake, alert, with reassuring vital signs. Well appearing. Non-participatory in med rec. Discharged home; discharge instructions and return precautions were reviewed with patient who verbalized understanding. All questions were answered and she is in agreement with the plan. Lab Data Lab results reviewed: Yes I reviewed the patient's lab results. Quality:SDOH Health Related Social Needs: Health related social needs problem related to primary support group(Z63.9) Sign Out Sign Out Data: Sign Out Comment: UA, UDS pending- metabolize to freedom stated she may have done heroin, appeared more methy. No complications, observed hours sleeping on monitor without respiratory depression or hemodynamic instability Last updated by Theodore Pink PA at 01/12/24 21:46 Discharge Plan Disposition Patient Disposition: Home Condition: Good Discharge Details Clinical Impression: Substance abuse Primary Care Provider: Glenn Tinajero ED Provider: Yvette Yeung Home Meds and New Rx's Prescriptions: No Action gabapentin 800 mg tablet 800 mg PO QID Patient Comments: TAKE ONE TABLET BY MOUTH FOUR TIMES A DAY methadone 10 mg/mL Concentrate 120 mg PO DAILY Rx Instructions: CONFIRMED DOSE WITH LORIN 08/20/21 125MG QAM duloxetine 60 mg capsule,delayed release(DR/EC) 60 mg PO DAILY Patient Comments: Take 1 capsule by mouth once a day take 1 capsule by mouth daily naloxone 4 mg/actuation spray,non-aerosol 4 mg intranasal Q2M PRNQty: 2 12RF Rx Instructions: spray 1 dose into ONE nostril; alternate nostrils w each dose until help arrives methylphenidate HCl [Ritalin LA] 40 mg capsule,ER biphasic 50-50 40 mg PO DAILY Patient Comments: Take 1 capsule by mouth once a day furosemide 20 mg tablet 20 mg PO DAILY PRN PRN (Reason: Edema) Patient Comments: 1 tablet by mouth once a day as needed TAKE ONE TABLET BY MOUTH EVERY DAY as needed for edema acetaminophen 500 mg tablet 1,000 mg PO Q6H PRNQty: 40 0RF ibuprofen 800 mg tablet 800 mg PO Q8H PRNQty: 15 0RF Discharge Instructions Instructions: Drug Misuse and Addiction (DC) Additional Instructions: Call your primary care doctor today to schedule an appointment for within the next 72 hours to followup on your visit here. Make sure the people around you have Narcan and know how to use it should you need it. Return to the emergency department for new or worsening symptoms. Referrals: Glenn Tinajero [Primary Care Provider] -
[2024-01-13] VITALS (13 sets, daily range): BP systolic 111–131; BP diastolic 62–76; PULSE 68–88; RESP 12–22; TEMP 36.8; O2SAT 97
--- NOTE | 2024-01-13 07:39 | TELEP.MEDR_ITS ---
Date of service: 01/13/24 Time of Service: 07:45 Telepharmacy Home Med Rec Allergies Allergies: bupropion HCl (From Wellbutrin SR) Adverse Reaction (Intermediate, Verified 11/27/23 11:28) Contraindicated Interview Person Interviewed: * Patient Quality Quality of Interview/Accuracy of Medication List: Good Sources Sources used to compile medication list: [employer] Medication List, Retail Pharmacy, Patient List and SureScripts Changes made to Home Medication List: ADDITIONS: * none DELETIONS: * none CHANGES: * none Additional Notes Additional Notes: * Verified with LORIN that patient takes Methadone 120mg daily, last dose on 03/13/23 Recommended Changes Recommended Changes(reason for recommendation): * none Attestation: The home medication list is now updated to the best of my knowledge and is ready to be reconciled by the provider. Please contact the TelePharmacy Medication Reconciliation Pharmacist at for any questions.
--- NOTE | 2024-01-13 07:39 | TELEP.MEDREC ---
Date of service: 01/13/24 Time of Service: 07:45 Telepharmacy Home Med Rec Allergies Allergies: bupropion HCl (From Wellbutrin SR) Adverse Reaction (Intermediate, Verified 11/27/23 11:28) Contraindicated Interview Person Interviewed: Patient Quality Quality of Interview/Accuracy of Medication List: Good Sources Sources used to compile medication list: LMN-1 Medication List, Retail Pharmacy, Patient List and SureScripts Changes made to Home Medication List: ADDITIONS: none DELETIONS: none CHANGES: none Additional Notes Additional Notes: Verified with LORIN that patient takes Methadone 120mg daily, last dose on 01/12/24 Recommended Changes Recommended Changes(reason for recommendation): none Attestation: The home medication list is now updated to the best of my knowledge and is ready to be reconciled by the provider. Please contact the TelePharmacy Medication Reconciliation Pharmacist at for any questions.
== END 2024-01-13 08:15 | disposition home or self-care (01) ==
PROVIDERS: Physician Assistant; Emergency Provider Student in an Organized Health Care Education/Training Program; PCP Physician Assistant
DX: F14.20 Cocaine dependence, uncomplicated (principal); F11.20 Opioid dependence, uncomplicated; R41.82 Altered mental status, unspecified; F17.210 Nicotine dependence, cigarettes, uncomplicated; Z86.74 Personal history of sudden cardiac arrest
CPT/HCPCS: 00123; 80053; 83690; 93005; 99284; 80320; 83735; 83880; 84443; 84484; 85025; 93010

== ENCOUNTER 2024-02-16 09:03 | Emergency (ER) | payer MEDICAID, SELFPAY ==
[2024-02-16 09:14] VITALS: BP 118/74; PULSE 80; RESP 16; TEMP 36.8; O2SAT 96
--- NOTE | 2024-02-16 09:15 | DI.RAD_ITS ---
Exam(s) XR CHEST 2V PA LATERAL EXAM: XR CHEST 2V PA LATERAL CLINICAL HISTORY: cough with R sided CP, viral sx. TECHNIQUE: 2D digital imaging was performed. COMPARISON: CT CT CHEST/ABD/PEL WO from 12/04/2021 CR XR PORTABLE CHEST AP POST LINE from 12/10/2021 CR XR PORTABLE CHEST AP from 12/10/2021 CR,XR XR PORTABLE CHEST AP from 04/14/2023 FINDINGS: 2 views: Heart size is normal. The mediastinum is not widened. There is significant infiltrate evident in the right lower lobe. This measures approximately 6 x 5 c m. Does not exhibit cavitation at this time. There are also nodular infiltrates noted in the left l leonardo apex region, more so than previous. Remainder of the left lung is clear. There are no pleural e ffusions. No pulmonary edema. No pneumothorax. No fractures evident. IMPRESSION: Significant right lower lobe infiltrate. Also nodular densities in the left upper lobe sub apical re gion, more so than previous.No obvious pleural effusions. Incidentally noted is compression fracture of L1, as evident on CT scan of November 2021. DATA REPOSITORY: RADIATION DOSE DELIVERED:
--- NOTE | 2024-02-16 09:32 | W.ED.GENAD ---
Discharge Plan Disposition Patient Disposition: Home Discharge Details Clinical Impression: Right lower lobe pneumonia Primary Care Provider: Glenn Tinajero ED Provider: Aminta Ho Home Meds and New Rx's Prescriptions: New doxycycline hyclate 100 mg tablet 100 mg PO BID Qty: 10 0RF No Action gabapentin 800 mg tablet 800 mg PO QID Patient Comments: TAKE ONE TABLET BY MOUTH FOUR TIMES A DAY methadone 10 mg/mL Concentrate 120 mg PO DAILY Rx Instructions: CONFIRMED DOSE WITH [facility] ([phone]) 01/13/24 :120mg duloxetine 60 mg capsule,delayed release(DR/EC) 60 mg PO DAILY Patient Comments: Take 1 capsule by mouth once a day take 1 capsule by mouth daily naloxone 4 mg/actuation spray,non-aerosol 4 mg intranasal Q2M PRNQty: 2 12RF Rx Instructions: spray 1 dose into ONE nostril; alternate nostrils w each dose until help arrives methylphenidate HCl [Ritalin LA] 40 mg capsule,ER biphasic 50-50 40 mg PO DAILY Patient Comments: Take 1 capsule by mouth once a day furosemide 20 mg tablet 20 mg PO DAILY PRN PRN (Reason: Edema) Patient Comments: 1 tablet by mouth once a day as needed TAKE ONE TABLET BY MOUTH EVERY DAY as needed for edema acetaminophen 500 mg tablet 1,000 mg PO Q6H PRNQty: 40 0RF ibuprofen 800 mg tablet 800 mg PO Q8H PRNQty: 15 0RF Discharge Instructions Instructions: Community-Acquired Pneumonia, Adult (DC) Additional Instructions: Your chest x-ray was significant for a right lower lobe pneumonia. I recommend they call your primary care provider to schedule a follow-up appointment if you are not feeling significantly better by the end of the week. Please take the full course of doxycycline as prescribed. Return to emergency care if you develop high fevers after 48 hours of antibiotics, new difficulty breathing, worsening chest pain, episodes of passing out, inability to hold down your antibiotics, or if you are very worried and need to be rechecked again immediately Referrals: Glenn Tinajero [Primary Care Provider] - HPI General Date/Time Provider Initiated Documentation: 02/16/24 09:11. HPI Narrative: Denisse is a 38year old female who presents to the emergency department today for evaluation of cough with chest discomfort R>L, congestion, headaches, intermittent subjective fevers, postnasal drip, right ear discomfort, and sore throat. Symptoms started 4 to 5 days ago. She says that her daughter has been sick with similar symptoms. Denies productive cough, difficulty breathing, abdominal pain, nausea/vomiting, change in p.o. intake, change in urine output. She has had diarrhea to 3 times a day, watery stools with no blood since onset. She has a history of pneumonia requiring hospitalization in the past.. Past medical history is significant for former IV drug use with endocarditis, hep C, tobacco use, ADHD. She did not take her gabapentin this morning, says she is feeling uncomfortable all over. Physical exam reassuring. Easy work of breathing, lung sounds clear bilaterally. Occasional dry cough. Moist mucous membranes. No cervical or submandibular lymphadenopathy noted. Clear voice. Normal heart sounds. Abdomen soft, nondistended, nontender to palpation D/dx includes but is not limited to: Viral illness such as COVID or flu, pneumonia. No red flags concerning for cardiac etiology, sepsis, or serious systemic illness/dehydration/electrolyte derangement requiring bloodwork at this time. I independently interpreted the following tests: Chest x-ray remarkable for right lower lobe infiltrate consistent with pneumonia, this was confirmed by radiologist. COVID/flu negative. While in the emergency department, Denisse received first dose of doxycycline for treatment of pneumonia. Confirmed no abx within last 3 months. Reviewed discharge instructions with patient, including importance of completing full course of antibiotics, symptomatic management, and red flags indicating need for return to emergency care. She voices agreement with plan of care Related Data Home Medications ?Medication ?Instructions ?Recorded ?Confirmed gabapentin 800 mg tablet 800 mg PO QID 06/02/21 02/16/24 methadone 10 mg/mL oral concentrate 120 mg PO DAILY 06/02/21 02/16/24 furosemide 20 mg tablet 20 mg PO DAILY PRN PRN Edema 12/03/22 02/16/24 methylphenidate HCl 40 mg biphasic 40 mg PO DAILY 12/03/22 02/16/24 50-50 capsule,extended release (Ritalin LA) duloxetine 60 mg capsule,delayed 60 mg PO DAILY 12/22/22 02/16/24 release naloxone 4 mg/actuation nasal spray 4 mg intranasal Q2M PRN #2 ea 12/25/22 02/16/24 acetaminophen 500 mg tablet 1,000 mg (2 x 500 mg) PO Q6H PRN 08/28/23 02/16/24 #40 tabs ibuprofen 800 mg tablet 800 mg PO Q8H PRN #15 tabs 08/28/23 02/16/24 doxycycline hyclate 100 mg tablet 100 mg PO BID #10 tabs 02/16/24 Previous Rx's ?Medication ?Instructions ?Recorded naloxone 4 mg/actuation nasal spray 4 mg intranasal Q2M PRN #2 ea 12/25/22 acetaminophen 500 mg tablet 1,000 mg (2 x 500 mg) PO Q6H PRN 08/28/23 #40 tabs ibuprofen 800 mg tablet 800 mg PO Q8H PRN #15 tabs 08/28/23 doxycycline hyclate 100 mg tablet 100 mg PO BID #10 tabs 02/16/24 Allergies Allergy/AdvReac Type Severity Reaction Status Date / Time bupropion HCl (From AdvReac Intermediate Contraindic Verified 02/16/24 09:20 Wellbutrin SR) ated General Stated Complaint: RespSymp CELESTE: 4 Review of Systems Narrative: see HPI Exam Const General: cooperative, healthy appearing, comfortable, no acute distress and well developed Nutritional Appearance: average body habitus Orientation: alert and oriented x3 HENMT Head: normal to inspection Face and sinus: normal facial exam Mouth: oral mucosae normal and moist mucous membranes Teeth and gingiva: poor dentition Throat: posterior oropharynx normal Neck Neck: normal visual inspection, full ROM and no lymphadenopathy Resp Effort & Inspection: normal respiratory effort and able to speak in complete sentences Auscultation: clear to auscultation bilaterally Cardio Rate: regular rate Rhythm: regular rhythm GI Inspection: normal to inspection Palpation: soft, not firm, no guarding, not rigid and nontender Course Vital Signs Vital signs: Vital Signs Temperature 36.8 C 02/16/24 09:14 Pulse 80 02/16/24 09:14 Respiratory Rate 16 02/16/24 09:14 Blood Pressure 118/74 02/16/24 09:14 Pulse Oximetry 96 02/16/24 09:14 Temperature 36.8 C 02/16/24 09:14 Temperature Source Oral 02/16/24 09:14 Pulse 80 02/16/24 09:14 Respiratory Rate 16 02/16/24 09:14 Blood Pressure 118/74 02/16/24 09:14 Blood Pressure Position Sitting 02/16/24 09:14 Pulse Oximetry 96 02/16/24 09:14 Oxygen Delivery Method Room Air 02/16/24 09:14 Oxygen Flow Rate 0 02/16/24 09:14 Pain Level 7 02/16/24 09:14 Medical Decision Making Imaging Data Radiologic Study: Radiologist's impression: Exam(s) XR CHEST 2V PA LATERAL EXAM: XR CHEST 2V PA LATERAL CLINICAL HISTORY: cough with R sided CP, viral sx. TECHNIQUE: 2D digital imaging was performed. COMPARISON: CT CT CHEST/ABD/PEL WO from 12/04/2021 CR XR PORTABLE CHEST AP POST LINE from 12/10/2021 CR XR PORTABLE CHEST AP from 12/10/2021 CR,XR XR PORTABLE CHEST AP from 04/14/2023 FINDINGS: 2 views: Heart size is normal. The mediastinum is not widened. There is significant infiltrate evident in the right lower lobe. This measures approximately 6 x 5 cm. Does not exhibit cavitation at this time. There are also nodular infiltrates noted in the left lung apex region, more so than previous. Remainder of the left lung is clear. There are no pleural effusions. No pulmonary edema. No pneumothorax. No fractures evident. IMPRESSION: Significant right lower lobe infiltrate. Also nodular densities in the left upper lobe sub apical region, more so than previous.No obvious pleural effusions. Incidentally noted is compression fracture of L1, as evident on CT scan of November 2021. Quality:SDOH Health Related Social Needs: Health related social needs problem related to primary support group(Z63.9) [facility] All Active Problems (Updated 02/16/24 @ 10:09 by Aminta Graham) Right lower lobe pneumonia (Acute) No-show for appointment (Acute) Pain (Acute) IVDU (intravenous drug user) (Acute) Effusion of knee joint, left (Acute) Fall (Acute) Methadone maintenance therapy patient (Acute) Cellulitis of left foot (Acute) Postop check (Acute) Wound infection (Acute) Wound dehiscence (Acute) Cardiac asystole (Acute) Hepatitis C (Chronic) Mild tricuspid regurgitation (Acute) Anemia (Chronic) Localized swelling of left lower extremity (Acute) Cellulitis (Acute) Smoker (Acute) Viral illness (Acute) History of prior with IUGR (Acute 01/11/15) History of kidney injury (Acute 01/17/16) Acute January, History of drug abuse (Acute 01/17/16) In IP treatment at [place], no longer on methadone as of 01/17/16. Family court is close to resolved - will end . She is expecting 1st daughter to come home. Depression (Acute 01/11/15) Chronic hepatitis C without hepatic coma (Chronic 01/11/15) Cardiomyopathy (Chronic 01/22/16) Anemia of chronic disease (Acute 01/17/16) ADHD, hyperactive-impulsive type (Chronic 05/14/16) Insomnia (Acute) DVT prophylaxis (Acute) Fever (Acute) Prepatellar bursitis of right knee (Acute) Anxiety (Chronic) Anemia (Chronic) Opioid dependence (Chronic) Mitral regurgitation (Chronic) Edema (Acute) Medical History Lack of intravenous access IV drug user Left posterior fascicular block (LPFB) RBBB Fungemia Closed head injury Cardiac arrest with successful resuscitation Pulmonary nodules Anemia Scalded skin syndrome Alcohol abuse Hx of cocaine abuse Personality disorder Herpes, vulvar PTSD (post-traumatic stress disorder) ADHD Subacute endocarditis (01/22/16) MSSA endocarditis January, HSV infection Hx of infant who one week after . ? HSV or H1N1 infection. Pt has been on prophylaxis with pregnancies. Depression difficulty bonding with 2nd child. child removed from her custody. was on Wellbutrin but had sz and not on meds at this time. has appt with counselor 03/2015 Surgical History section (11/24/12) PCD @ 35w. IUGR. [facility]. [id number][place] [facility] [place]. Pt arrived in labor and declined SUN. [facility]. Amputation 12/23/16;[facility]; RIGHT BELOW THE KNEE Family History Mother No problems noted. Father No problems noted. Brother No problems noted. Grandfather No problems noted. Grandfather No problems noted. Grandmother No problems noted. Grandmother No problems noted. Son No problems noted. Son No problems noted. Daughter No problems noted. Daughter No problems noted. Social History Smoking/Tobacco Use Status: Current every day Tobacco Type: cigarettes Smoking risk assessment performed?: Yes Alcohol Intake: current Alcohol Intake frequency: a few times a month Alcohol type: beer Drug use: Occasionally Substance use type: marijuana, crack/cocaine, heroin, amphetamines, opiates, IV drugs, methamphetamine and unknown Housing: house Do you feel safe at home: Yes Do you feel safe in your relationship?: Yes Additional Social history: pt states she is on methadone History History 4 Para 4 Hx # Term Pregnancies Multiple births Hx # Pregnancies Ectopic pregnancies AB induced Hx Number of Living Children 3 AB spontaneous Past Pregnancies Del. Date GA/Weeks # Preg Succ Route Wgt Sex Labor Lgth Anesthesia Location Prov Complic 12/28/20 25 Delivery Date: 12/28/20 Last Updated by: Roxanna Rocha LPN Patient transferred OB care to [facility]
[2024-02-16] MEDS: Doxycycline Hyclate 100 MG CAP PO (10:18)
== END 2024-02-16 10:42 | disposition home or self-care (01) ==
PROVIDERS: Emergency Provider Nurse Practitioner Family; PCP Physician Assistant
DX: J18.9 Pneumonia, unspecified organism (principal); F17.210 Nicotine dependence, cigarettes, uncomplicated; Z86.74 Personal history of sudden cardiac arrest
CPT/HCPCS: 99284; 71046

== ENCOUNTER 2024-04-22 09:17 | Emergency (ER) | payer MEDICAID, SELFPAY ==
[2024-04-22 09:34] VITALS: BP 133/92; PULSE 63; RESP 18; TEMP 36.7; O2SAT 97
[2024-04-22 10:24] VITALS: BP 133/92; PULSE 63; RESP 18; TEMP 36.7; O2SAT 97
[2024-04-22] MEDS: Amoxicillin 875/Clav. 125 TAB PO (10:31)
[2024-04-22] MEDS: Ibuprofen 600 MG TAB PO (10:31)
[2024-04-22 10:51] LABS: Influenza A PCR Negative (Negative); Influenza B PCR Negative (Negative); RSV PCR Negative (Negative)
[2024-04-22 10:53] LABS: Source Nasopharynx
[2024-04-22 10:54] LABS: COVID-19 PCR Positive (Negative)
--- NOTE | 2024-04-22 10:55 | W.ED.GENAD ---
Discharge Plan Disposition Patient Disposition: Home Condition: Stable Discharge Details Clinical Impression: Right maxillary sinusitis, COVID-19 Primary Care Provider: Glenn Tinajero ED Provider: Ole Florian Home Meds and New Rx's Prescriptions: New amoxicillin-pot clavulanate 875-125 mg tablet 1 tab PO BID Qty: 13 0RF Continued gabapentin 800 mg tablet 800 mg PO QID Patient Comments: TAKE ONE TABLET BY MOUTH FOUR TIMES A DAY methadone 10 mg/mL Concentrate 120 mg PO DAILY Rx Instructions: CONFIRMED DOSE WITH [facility] ([phone]) 01/13/24 :120mg duloxetine 60 mg capsule,delayed release(DR/EC) 60 mg PO DAILY Patient Comments: Take 1 capsule by mouth once a day take 1 capsule by mouth daily naloxone 4 mg/actuation spray,non-aerosol 4 mg intranasal Q2M PRNQty: 2 12RF Rx Instructions: spray 1 dose into ONE nostril; alternate nostrils w each dose until help arrives methylphenidate HCl [Ritalin LA] 40 mg capsule,ER biphasic 50-50 40 mg PO DAILY Patient Comments: Take 1 capsule by mouth once a day furosemide 20 mg tablet 20 mg PO DAILY PRN PRN (Reason: Edema) Patient Comments: 1 tablet by mouth once a day as needed TAKE ONE TABLET BY MOUTH EVERY DAY as needed for edema acetaminophen 500 mg tablet 1,000 mg PO Q6H PRNQty: 40 0RF ibuprofen 800 mg tablet 800 mg PO Q8H PRNQty: 15 0RF Discharge Instructions Instructions: COVID-19 ED, Sinusitis, Adult ED Additional Instructions: Please drink plenty of fluids and allow for plenty of rest. Take antibiotic as prescribed. Be sure to complete the full course. You tested positive for covid today. You are contagious. Please see attached instructions. Return to the ER immediately for any worsening or new concerning symptoms. Take ibuoprofen for pain -- dose according to label. Stand Alone Forms: Work Release Referrals: Glenn Tinajero [Primary Care Provider] - Discharge Data Discharge Date/Time-TO BE ENTERED AT DEPARTURE: 04/22/24 11:01 HPI General Mode of arrival: ambulatory. Date/Time Provider Initiated Documentation: 04/22/24 09:47. Limitations to Documentation: no limitations. Information obtained by: patient. HPI Narrative: HISTORY OF PRESENT ILLNESS The patient presents for evaluation of sinusitis. She has been experiencing right-sided facial pain, fever, malaise, cough, and headaches for the past few days. The pain is described as similar to being struck in the face and is accompanied by pressure on her right eye with movement. No history of trauma, rashes, or swelling. She has been managing symptoms with Tylenol and is capable of ambulation. No known allergies to antibiotics. Related Data Home Medications ?Medication ?Instructions ?Recorded ?Confirmed gabapentin 800 mg tablet 800 mg PO QID 06/02/21 04/22/24 methadone 10 mg/mL oral concentrate 120 mg PO DAILY 06/02/21 04/22/24 furosemide 20 mg tablet 20 mg PO DAILY PRN PRN Edema 12/03/22 04/22/24 methylphenidate HCl 40 mg biphasic 40 mg PO DAILY 12/03/22 04/22/24 50-50 capsule,extended release (Ritalin LA) duloxetine 60 mg capsule,delayed 60 mg PO DAILY 12/22/22 04/22/24 release naloxone 4 mg/actuation nasal spray 4 mg intranasal Q2M PRN #2 ea 12/25/22 04/22/24 acetaminophen 500 mg tablet 1,000 mg (2 x 500 mg) PO Q6H PRN 08/28/23 04/22/24 #40 tabs ibuprofen 800 mg tablet 800 mg PO Q8H PRN #15 tabs 08/28/23 04/22/24 amoxicillin 875 mg-potassium 1 tab PO BID #13 tabs 04/22/24 clavulanate 125 mg tablet Previous Rx's ?Medication ?Instructions ?Recorded naloxone 4 mg/actuation nasal spray 4 mg intranasal Q2M PRN #2 ea 12/25/22 acetaminophen 500 mg tablet 1,000 mg (2 x 500 mg) PO Q6H PRN 08/28/23 #40 tabs ibuprofen 800 mg tablet 800 mg PO Q8H PRN #15 tabs 08/28/23 amoxicillin 875 mg-potassium 1 tab PO BID #13 tabs 04/22/24 clavulanate 125 mg tablet Allergies Allergy/AdvReac Type Severity Reaction Status Date / Time bupropion HCl (From AdvReac Intermediate Contraindic Verified 04/22/24 09:36 Wellbutrin SR) ated General Stated Complaint: RespSymp CELESTE: 4 Review of Systems All systems reviewed & are unremarkable except as noted in HPI and below Exam Narrative Exam Narrative: PHYSICAL EXAM General Appearance: Normal. Vital signs: Within normal limits. HEENT: Posterior oropharynx: mild erythema, no exudate or swelling. EOMI. Tenderness over right frontal and maxillary sinuses. No cervical lymphadenopathy. Respiratory: Lungs: rhonchi, no crackles or wheezing. Cardiovascular: Heart: regular rate and rhythm, no murmurs. Gastrointestinal: Abdomen: soft, nondistended, nontender. Skin: Warm and dry, no rash. Neurological: Normal. Course Vital Signs Vital signs: Vital Signs Temperature 36.7 C 04/22/24 09:34 Pulse 63 04/22/24 09:34 Respiratory Rate 18 04/22/24 09:34 Blood Pressure 133/92 H 04/22/24 09:34 Pulse Oximetry 97 04/22/24 09:34 Temperature 36.7 C 04/22/24 10:24 Temperature Source Oral 04/22/24 10:24 Pulse 63 04/22/24 10:24 Respiratory Rate 18 04/22/24 10:24 Respiratory Effort Normal, Non-Labored 04/22/24 10:25 Respiratory Depth Normal 04/22/24 10:25 Blood Pressure 133/92 H 04/22/24 10:24 Blood Pressure Position Sitting 04/22/24 10:24 Pulse Oximetry 97 04/22/24 10:24 Oxygen Delivery Method Room Air 04/22/24 10:24 Oxygen Flow Rate 0 04/22/24 10:24 Pain Level 7 04/22/24 10:24 Lab/Test Results Lab/Test Results: Laboratory Tests Range/Units 04/22/24 10:05 COVID-19 Source Nasopharynx SARS-CoV-2 (PCR) (Negative) Positive A Influenza Type A (PCR) (Negative) Negative Influenza Type B (PCR) (Negative) Negative RSV (PCR) (Negative) Negative Medical Decision Making ASSESSMENT AND PLAN Initial Assessment: Patient presents with right-sided facial pain, headache, and fever for a couple of days, suggestive of sinusitis. Differential Diagnosis: - Sinusitis: Clinical presentation suggests sinusitis. Plan to start amoxicillin, recommend ibuprofen for discomfort and inflammation, advise increased oral fluid intake and rest. - COVID-19 and Influenza: Tests ordered to rule out infections. ED Course: - Physical exam: Regular heart rate and rhythm, no murmurs. Lungs with upper airway rhonchi, no crackles or wheezing. Abdomen soft, nondistended, nontender. Mild erythema in posterior oropharynx, no exudate or swelling. No cervical lymphadenopathy. Tenderness over right frontal and right maxillary sinuses. - Medications: Administered ibuprofen for discomfort and inflammation. Prescribed Augmentin, sent to pharmacy. - Tests: COVID-19 and influenza tests ordered. - COVID positive. - Patient advised to increase oral fluid intake and rest. - Provided work note for return on Thursday if improved. Final Assessment: Patient diagnosed with sinusitis based on clinical presentation and physical exam findings. Treatment initiated with amoxicillin and ibuprofen. COVID-19 and influenza tests ordered to rule out other infections. Advised rest and increased fluid intake. Clinical Impression: - Sinusitis - COVID Disposition: - Discharge Patient Education: Advised to take ibuprofen for discomfort, start antibiotics, increase fluid intake, and rest. Usual and customary discharge instructions were reviewed. MDM Components Evaluation: - Number of Differential Diagnoses or Management Options: Sinusitis, COVID-19, Influenza - Amount and Complexity of Data Reviewed: Physical exam, COVID-19 and influenza tests - Risk of Complication and Morbidity or Mortality: Moderate risk due to potential for untreated sinusitis to worsen or lead to complications. This document was written with the assistance of SHERLY Elizondo. The patient consented to its use. Quality:SDOH Health Related Social Needs: No Data to Display PFSH All Active Problems (Updated 04/22/24 @ 10:57 by Ole Florian MD) COVID-19 (Acute) Right maxillary sinusitis (Acute) No-show for appointment (Acute) Pain (Acute) IVDU (intravenous drug user) (Acute) Effusion of knee joint, left (Acute) Fall (Acute) Methadone maintenance therapy patient (Acute) Cellulitis of left foot (Acute) Postop check (Acute) Wound infection (Acute) Wound dehiscence (Acute) Cardiac asystole (Acute) Hepatitis C (Chronic) Mild tricuspid regurgitation (Acute) Anemia (Chronic) Localized swelling of left lower extremity (Acute) Cellulitis (Acute) Smoker (Acute) Viral illness (Acute) History of prior with IUGR (Acute 01/11/15) History of kidney injury (Acute 01/17/16) Acute January, History of drug abuse (Acute 01/17/16) In treatment at [place], no longer on methadone as of 01/17/16. Family court is close to resolved - will end . She is expecting 1st daughter to come home. Depression (Acute 01/11/15) Chronic hepatitis C without hepatic coma (Chronic 01/11/15) Cardiomyopathy (Chronic 01/22/16) Anemia of chronic disease (Acute 01/17/16) ADHD, hyperactive-impulsive type (Chronic 05/14/16) Insomnia (Acute) DVT prophylaxis (Acute) Fever (Acute) Prepatellar bursitis of right knee (Acute) Anxiety (Chronic) Anemia (Chronic) Opioid dependence (Chronic) Mitral regurgitation (Chronic) Edema (Acute) Medical History Lack of intravenous access IV drug user Left posterior fascicular block (LPFB) RBBB Fungemia Closed head injury Cardiac arrest with successful resuscitation Pulmonary nodules Anemia Scalded skin syndrome Alcohol abuse Hx of cocaine abuse Personality disorder Herpes, vulvar PTSD (post-traumatic stress disorder) ADHD Subacute endocarditis (01/22/16) MSSA endocarditis January, HSV infection Hx of infant who one week after . ? HSV or H1N1 infection. Pt has been on prophylaxis with pregnancies. Depression difficulty bonding with 2nd child. child removed from her custody. was on Wellbutrin but had sz and not on meds at this time. has appt with counselor 03/2015 Surgical History section (11/24/12) PCD @ 35w. [id number] [place]. 03/26/15 RCD. Pt arrived in labor and declined SUN. [facility]. Amputation 12/23/16;[facility]; RIGHT BELOW THE KNEE Family History Mother No problems noted. Father No problems noted. Brother No problems noted. Grandfather No problems noted. Grandfather No problems noted. Grandmother No problems noted. Grandmother No problems noted. Son No problems noted. Son No problems noted. Daughter No problems noted. Daughter No problems noted. Social History Smoking/Tobacco Use Status: Current every day Tobacco Type: cigarettes Smoking risk assessment performed?: Yes Alcohol Intake: current Alcohol Intake frequency: a few times a month Alcohol type: beer Drug use: Occasionally Substance use type: marijuana, crack/cocaine, heroin, amphetamines, opiates, IV drugs, methamphetamine and unknown Housing: house Do you feel safe at home: Yes Do you feel safe in your relationship?: Yes Additional Social history: pt states she is on methadone History History 4 Para 4 Hx # Term Pregnancies Multiple births Hx # Pregnancies Ectopic pregnancies AB induced Hx Number of Living Children 3 AB spontaneous Past Pregnancies Del. Date GA/Weeks # Preg Succ Route Wgt Sex Labor Lgth Anesthesia Location Prov Complic 12/28/20 25 Delivery Date: 12/28/20 Last Updated by: Roxanna Rocha LPN Patient [facility]
[2024-04-22 11:00] VITALS: BP 115/76; PULSE 77; RESP 18; O2SAT 99
== END 2024-04-22 11:01 | disposition home or self-care (01) ==
PROVIDERS: Emergency Provider Student in an Organized Health Care Education/Training Program; PCP Physician Assistant
DX: J01.00 Acute maxillary sinusitis, unspecified (principal); U07.1 COVID-19
CPT/HCPCS: 87426; 87637; 99283

== ENCOUNTER 2024-05-02 10:03 | Inpatient (IN) | payer MEDICAID, SELFPAY ==
[2024-05-02] VITALS (24 sets, daily range): BP systolic 102–146; BP diastolic 51–92; PULSE 58–95; RESP 10–22; TEMP 37–39.4; O2SAT 76–100
[2024-05-02] MEDS: Acetaminophen 500 MG TAB 1000 MG PO ×2 (11:15→22:18)
[2024-05-02] MEDS: CEFEPIME 1 GM in Normal Saline 50 ML IVPB (12:06)
[2024-05-02 12:22] LABS: Abs Immature Grans 0.07 10^3/uL (0.0-0.06); Absolute Basophil Count 0.03 10^3/uL (0.0-0.2); Absolute Lymphocyte Count 1.09 10^3/uL (1.2-3.4); Absolute Neutrophil Count 11.18 10^3/uL (1.2-6.7); Basophils % 0.2 %; HCT 33.1 % (36.0-46.0); Immature Grans % 0.5 %; Lymphocytes % 8.2 %; MCH 30.4 pg (27.0-33.0); MCHC 33.2 % (32.0-36.0); MCV 91 fL (80-95); MPV 9.4 fL (8.0-11.0); Monocytes % 6.9 %; Neutrophils % 84.2 %; Platelet Count 217 10^3/uL (130-400); RBC 3.62 10^6/uL (3.93-5.22); RDW 14.2 % (11.7-14.6); RDW-SD 47.6 fL; WBC 13.28 10^3/uL (4.4-10.8)
[2024-05-02 12:23] LABS: Lactate 1.5 mmol/L (<or=2.0)
[2024-05-02 12:24] LABS: Absolute Monocyte Count 0.92 10^3/uL (0.1-0.8)
[2024-05-02 12:43] LABS: ALT 20 U/L (14-59); AST 19 U/L (15-37); Alkaline Phosphatase 119 U/L (46-116); BUN 8 mg/dL (7-18); Bilirubin, Total 0.73 mg/dL (0.2-1.0); CREATININE 0.7 mg/dL (0.55-1.02); Calcium 8.7 mg/dL (8.5-10.1); Chloride 97 mmol/L (98-107); Estimated GFR 112.75 (mL/min/1.73m2); Glucose 83 mg/dL (74-106); Magnesium 1.7 mg/dL (1.8-2.4); Potassium 4.2 mmol/L (3.5-5.1); Sodium 133 mmol/L (136-145); Total Protein 7.7 g/dL (6.4-8.2); Troponin I 6 ng/L (<or=51)
--- NOTE | 2024-05-02 12:45 | DI.CT_ITS ---
Exam(s) CT HEAD WO EXAM: CT HEAD WO CLINICAL HISTORY: FALL. TECHNIQUE: Imaging Protocol: Axial computed tomography images with coronal and sagittal reformatted images were created and reviewed COMPARISON: CT CT HEAD WO from 03/19/2023 FINDINGS: Ventricles and Extra axial spaces: Normal in size and morphology for the patient's age. Hemorrhage: None. Cerebral parenchyma: Normal. Midline shift: None. Brainstem/Cerebellum: Normal. Calvarium: Normal. Visualized Paranasal sinuses/Mastoids: Mucosal thickening in the visualized paranasal sinuses. Soft Tissues: Unremarkable. IMPRESSION: 1. No acute intracranial process. 2. Moderate paranasal sinusitis. RADIATION DOSE DELIVERED: 992.86mGy.cm Total DLP DATA REPOSITORY: All CT scans at this facility are submitted to the National Radiology Data Registry (NRDR) Dose Index Registry (DIR) with the [employer] ([employer]). RADIATION OPTIMIZATION: All CT scans at this facility use at least one of these dose optimization te chniques: automated exposure control; mA and/or kV adjustment per patient size (includes targeted exa ms where dose is matched to clinical indication); or iterative reconstruction.
[2024-05-02 13:03] LABS: Bilirubin Negative (Negative); Blood Negative (Negative); Clarity Sl Cloudy (Clear); Glucose Negative (Negative); Ketones Negative (Negative); Leukocyte Esterase Negative (Negative); Nitrite Negative (Negative); Urobilinogen >=8.0 mg/dL (Up to 0.2); pH 8.5 (5-8)
[2024-05-02 13:11] LABS: Bacteria Rare HPF (Negative); C & S Indicated? C&S Done As Ordered; Casts Negative LPF (Negative); Crystals Negative HPF (Negative); Epithelial Cells Many HPF (Negative); Mucus Negative (Negative); RBC 0-2 HPF (0-2); WBC 0-2 HPF (0-5)
--- NOTE | 2024-05-02 13:37 | NUR.NOTE ---
Nursing Note: [facility] & spoke w/Monet. Pt dose verified at 120mg QAM, was last dosed today 05/02/24
[2024-05-02 13:38] LABS: LDH 154 U/L (81-234)
[2024-05-02 13:43] LABS: Procalcitonin 0.29 ng/mL
[2024-05-02 14:01] LABS: Troponin I 6 ng/L (<or=51)
--- NOTE | 2024-05-02 14:05 | DI.RAD_ITS ---
Exam(s) XR CHEST 1V IN DI DEPT EXAM: XR CHEST 1V IN DI DEPT CLINICAL HISTORY: FEVER TECHNIQUE: 2D digital imaging was performed of the chest. One image was obtained. An AP view was ob tained. COMPARISON: CR,XR XR PORTABLE CHEST AP from 04/14/2023 CR XR CHEST 2V PA LATERAL from 02/16/2024 FINDINGS: MEDIASTINUM: Normal. HEART: Normal. PULMONARY VASCULATURE: Normal. LUNGS: There is underlying parenchymal scarring particularly seen in the left upper lobe. There are mildly increased interstitial markings in the lung bases particularly on the right. A superimposed p neumonia cannot be excluded. No focal consolidating infiltrate is seen. The lungs appear hyperinfla sara suggesting underlying COPD. PLEURAL SPACE: No pleural effusion or pneumothorax. BONE:Within normal limits for the patient's age. OTHER FINDINGS:Normal. IMPRESSION: 1. Increased lung markings in the bases bilaterally which may represent is developing pneumonia. No focal consolidating infiltrates are seen. 2. Findings suggestive underlying COPD and chronic scarring in the left upper lobe. DATA REPOSITORY: RADIATION DOSE DELIVERED:
[2024-05-02] MEDS: Gabapentin 800 MG TAB 1600 MG PO ×2 (14:23→20:54)
[2024-05-02] MEDS: Ondansetron 4 MG/2 ML VIAL IVP ×2 (15:05→20:59)
[2024-05-02] MEDS: VANCOMYCIN 1,500 MG in Normal Saline 250 ML 166.6666 MG IVPB (15:06)
[2024-05-02] MEDS: Methylphenidate 10 MG TAB PO (15:39)
--- NOTE | 2024-05-02 15:57 | W.PC.ACHO ---
Registration Status: Primary Language: Preferred Language: ED Information & Data Chief Complaint Fever 05/02/24 10:23 Chief Complaint Fever 05/02/24 10:16 Triage Note breathing problem, fevers x 05/02/24 10:16 2 days being taking ibuprofen and tylenol. patient state she had covid last week. headache and coughing, chills. state she took both tylenol and ibuprofen at 7am Medical / Surgical History (Last Reviewed 08/25/23 @ 01:42 by Mohsen Macedo MD) Exhausted vascular access Lack of intravenous access IV drug user Left posterior fascicular block (LPFB) RBBB Fungemia Closed head injury Cardiac arrest with successful resuscitation Pulmonary nodules Anemia Scalded skin syndrome Alcohol abuse Hx of cocaine abuse Personality disorder Herpes, vulvar PTSD (post-traumatic stress disorder) ADHD Subacute endocarditis (01/22/16) HSV infection Depression (Last Reviewed 08/25/23 @ 01:42 by Mohsen Macedo MD) section (11/24/12) Amputation Most Recent Vital Signs Temperature 39.3 C H 05/02/24 11:35 Temperature Source Oral 05/02/24 11:35 Pulse 74 05/02/24 15:43 Pulse 74 05/02/24 15:40 Respiratory Rate 16 05/02/24 15:40 Blood Pressure 146/92 H 05/02/24 15:43 Blood Pressure Mean 103 05/02/24 15:43 Blood Pressure Position Supine 05/02/24 11:35 Pulse Oximetry 96 05/02/24 14:30 Oxygen Delivery Method Room Air 05/02/24 11:35 Oxygen Flow Rate 0 05/02/24 10:16 Pain Level 7 05/02/24 10:16 Allergies bupropion HCl (From Wellbutrin SR) Adverse Reaction (Intermediate, Verified 04/22/24 09:36) Contraindicated PT. REPORTS CAN'T TAKE, SEIZURE Active Medications Generic Name Dose Route Start Last Admin Trade Name Freq PRN Reason Stop Dose Admin Gabapentin 1,600 mg 05/02/24 14:00 05/02/24 14:23 Gabapentin 800 Mg Tab PO 1,600 mg BID LUCY Administration IV IV Catheter Type [Left Peripheral IV Antecubital] IV Catheter Gauge [Left 18 Antecubital] Diet Orders Category Date Time Status Regular/Normal [DIET] Nutrition 05/02/24 Dinner Active Diagnostics 05/02/24 05/02/24 05/02/24 Range/Units 14:27 13:00 12:52 WBC (4.4-10.8) 10^3/uL RBC (3.93-5.22) 10^6/uL Hgb (11.2-15.7) g/dL Hct (36.0-46.0) % MCV (80-95) fL MCH (27.0-33.0) pg MCHC (32.0-36.0) % RDW (11.7-14.6) % Plt Count (130-400) 10^3/uL MPV (8.0-11.0) fL Immature Gran % % Neutrophils % % Lymphocytes % % Monocytes % % Eosinophils % % Basophils % % Nucleated RBC % (0.0-0.3) % Absolute Neutrophils (1.2-6.7) 10^3/uL Absolute Lymphocytes (1.2-3.4) 10^3/uL Absolute Monocytes (0.1-0.8) 10^3/uL Absolute Eosinophils (0.0-0.7) 10^3/uL Absolute Basophils (0.0-0.2) 10^3/uL VBG Lactate (<or=2.0) mmol/L Sodium (136-145) mmol/L Potassium (3.5-5.1) mmol/L Chloride (98-107) mmol/L Carbon Dioxide (21.0-32.0) mmol/L Anion Gap (3-11) mmol/L BUN (7-18) mg/dL Creatinine (0.55-1.02) mg/dL Est GFR (CKD-EPI 2020) (mL/min/1.73m2) Glucose (74-106) mg/dL Calcium (8.5-10.1) mg/dL Magnesium (1.8-2.4) mg/dL Total Bilirubin (0.2-1.0) mg/dL AST (15-37) U/L ALT (14-59) U/L Alkaline Phosphatase (46-116) U/L Lactate Dehydrogenase 154 (81-234) U/L Troponin I Pending 6 (<or=51) ng/L Total Protein (6.4-8.2) g/dL Albumin (3.4-5.0) g/dL Procalcitonin 0.29 ng/mL Urine Color Yellow (Yellow) Urine Clarity Sl Cloudy (Clear) Urine pH 8.5 H (5-8) Ur Specific [place] 1.020 (1.005-1.025) Urine Protein 100 H (Neg-Trace) mg/dL Urine Ketones Negative (Negative) mg/dL Urine Blood Negative (Negative) Urine Nitrite Negative (Negative) Urine Bilirubin Negative (Negative) Urine Urobilinogen >=8.0 H (Up to 0.2) mg/dL Ur Leukocyte Esterase Negative (Negative) Urine RBC 0-2 (0-2) HPF Urine WBC 0-2 (0-5) HPF Ur Epithelial Cells Many (Negative) HPF Urine Crystals Negative (Negative) HPF Urine Bacteria Rare (Negative) HPF Urine Casts Negative (Negative) LPF Urine Mucus Negative (Negative) Ur Culture Indicated? C&S Done As Ordered Urine Glucose Negative (Negative) mg/dL Fluid Type Fluid LDH ABO/Rh Antibody Screen 05/02/24 05/02/24 Range/Units 11:58 11:26 WBC 13.28 H (4.4-10.8) 10^3/uL RBC 3.62 L (3.93-5.22) 10^6/uL Hgb 11.0 L (11.2-15.7) g/dL Hct 33.1 L (36.0-46.0) % MCV 91 (80-95) fL MCH 30.4 (27.0-33.0) pg MCHC 33.2 (32.0-36.0) % RDW 14.2 (11.7-14.6) % Plt Count 217 (130-400) 10^3/uL MPV 9.4 (8.0-11.0) fL Immature Gran % 0.5 % Neutrophils % 84.2 % Lymphocytes % 8.2 % Monocytes % 6.9 % Eosinophils % 0.0 % Basophils % 0.2 % Nucleated RBC % 0.0 (0.0-0.3) % Absolute Neutrophils 11.18 H (1.2-6.7) 10^3/uL Absolute Lymphocytes 1.09 L (1.2-3.4) 10^3/uL Absolute Monocytes 0.92 H (0.1-0.8) 10^3/uL Absolute Eosinophils 0.00 (0.0-0.7) 10^3/uL Absolute Basophils 0.03 (0.0-0.2) 10^3/uL VBG Lactate 1.5 (<or=2.0) mmol/L Sodium 133 L (136-145) mmol/L Potassium 4.2 (3.5-5.1) mmol/L Chloride 97 L (98-107) mmol/L Carbon Dioxide 27.0 (21.0-32.0) mmol/L Anion Gap 9.0 (3-11) mmol/L BUN 8 (7-18) mg/dL Creatinine 0.7 (0.55-1.02) mg/dL Est GFR (CKD-EPI 2020) 112.75 (mL/min/1.73m2) Glucose 83 (74-106) mg/dL Calcium 8.7 (8.5-10.1) mg/dL Magnesium 1.7 L (1.8-2.4) mg/dL Total Bilirubin 0.73 (0.2-1.0) mg/dL AST 19 (15-37) U/L ALT 20 (14-59) U/L Alkaline Phosphatase 119 H (46-116) U/L Lactate Dehydrogenase (81-234) U/L Troponin I 6 (<or=51) ng/L Total Protein 7.7 (6.4-8.2) g/dL Albumin 3.0 L (3.4-5.0) g/dL Procalcitonin ng/mL Urine Color (Yellow) Urine Clarity (Clear) Urine pH (5-8) Ur Specific [place] (1.005-1.025) Urine Protein (Neg-Trace) mg/dL Urine Ketones (Negative) mg/dL Urine Blood (Negative) Urine Nitrite (Negative) Urine Bilirubin (Negative) Urine Urobilinogen (Up to 0.2) mg/dL Ur Leukocyte Esterase (Negative) Urine RBC (0-2) HPF Urine WBC (0-5) HPF Ur Epithelial Cells (Negative) HPF Urine Crystals (Negative) HPF Urine Bacteria (Negative) HPF Urine Casts (Negative) LPF Urine Mucus (Negative) Ur Culture Indicated? Urine Glucose (Negative) mg/dL Fluid Type Cancelled Fluid LDH Cancelled ABO/Rh AB Positive Antibody Screen NEGATIVE 05/02/24 15:01 Blood Culture - Pending Blood 05/02/24 12:52 Urine Culture - Pending Urine - Clean Catch 05/02/24 11:40 Blood Culture - Pending Blood 05/02/24 11:26 Blood Culture - Pending Blood [id number] Documentation POC Urine Test Start: 05/02/24 13:04 Freq: .Urine Test Status: Active Protocol: Activity Type Activity Date Activity User E-sign Co-sign Detail Recorded Client Recorded Date Recorded By Document 05/02/24 13:04 PS ED02 05/02/24 13:04 PS Intake and Output - 24 Hour Total 05/02/24 10:03 thru 05/02/24 12:39 Intake Total 50 Balance 50 Weight 65.771 kg Intake: IV 50 Falls Risk Assessment History of Falls Previous History 05/02/24 11:35 Contributing Factors Impairments 05/02/24 11:35 Ambulatory Aids Uses ambulatory device 05/02/24 11:35 Tubes/Lines None 05/02/24 11:35 Gait Evaluation W/no contributing factors 05/02/24 11:35 Cognition No cognitive impairment 05/02/24 11:35 Fall Total Score 43 05/02/24 11:35 Level of Risk Moderate Risk 05/02/24 11:35 Notes 05/02/24 13:37 Nursing Notes by Lakia Pagan Nursing Note: Called [facility] & spoke w/Monet. Pt dose verified at 120mg QAM, was last dosed today 05/02/24 Initialized on 05/02/24 13:37 - END OF NOTE v v v v v v v v v Sending and/or Receiving Nurses: Please use comment section below to note any information pertinent to the patient hand-off not included above. Information / Comments: Report received from: Mirtha MOORE 15:37
--- NOTE | 2024-05-02 15:59 | ED.GENADUL_ITS ---
Discharge Plan Disposition Patient Disposition: Admit to [facility] Condition: Poor Discharge Details Chief Complaint: Fever Clinical Impression: Fever, IVDU (intravenous drug user), Facial trauma, Pneumonia Primary Care Provider: Glenn Tinajero ED Provider: Kayla Wiley Home Meds and New Rx's Prescriptions: No Action gabapentin 800 mg tablet 1,600 mg PO BID methadone 10 mg/mL Concentrate 120 mg PO DAILY Rx Instructions: CONFIRMED DOSE WITH [facility] 05/02/24 :120mg duloxetine 60 mg capsule,delayed release(DR/EC) 60 mg PO DAILY Patient Comments: Take 1 capsule by mouth once a day take 1 capsule by mouth daily naloxone 4 mg/actuation spray,non-aerosol 4 mg intranasal Q2M PRNQty: 2 12RF Rx Instructions: spray 1 dose into ONE nostril; alternate nostrils w each dose until help arrives lamotrigine [Lamictal XR] 50 mg tablet extended release 24hr 50 mg PO DAILY methylphenidate HCl [Ritalin LA] 40 mg capsule,ER biphasic 50-50 20 mg PO TID Patient Comments: Take 1 capsule by mouth once a day furosemide 20 mg tablet 20 mg PO DAILY PRN PRN (Reason: Edema) Patient Comments: 1 tablet by mouth once a day as needed TAKE ONE TABLET BY MOUTH EVERY DAY as needed for edema acetaminophen 500 mg tablet 1,000 mg PO Q6H PRNQty: 40 0RF ibuprofen 800 mg tablet 800 mg PO Q8H PRNQty: 15 0RF HPI General Date/Time Provider Initiated Documentation: 05/02/24 10:40 . Limitations to Documentation: no limitations . Information obtained by: patient . HPI Narrative: 38-year-old female with past medical history of IV drug use, endocarditis, right lower extremity osteomyelitis with amputation, fungemia presents for evaluation of fever and weakness. She reports that she was evaluated in the emergency department 2 weeks ago and diagnosed with COVID. She states that she is still not felt all the way better, but she was not continuing to have fevers until 3 days ago when her fevers returned. She reports 3 days of high fevers, cough and some shortness of breath. She denies any chest pain. She reports poor oral intake and just generally feeling so terrible. She states that she has generalized weakness and had a fall which resulted in some facial trauma. She states that her last IV drug use was 6 months ago. She reports intermittent use of smoking fentanyl. Related Data Home Medications ?Medication ?Instructions ?Recorded ?Confirmed gabapentin 800 mg tablet 1,600 mg PO BID 06/02/21 05/02/24 methadone 10 mg/mL oral concentrate 120 mg PO DAILY 06/02/21 05/02/24 furosemide 20 mg tablet 20 mg PO DAILY PRN PRN Edema 12/03/22 05/02/24 methylphenidate HCl 40 mg biphasic 20 mg PO TID 12/03/22 05/02/24 50-50 capsule,extended release (Ritalin LA) duloxetine 60 mg capsule,delayed 60 mg PO DAILY 12/22/22 05/02/24 release naloxone 4 mg/actuation nasal spray 4 mg intranasal Q2M PRN #2 ea 12/25/22 05/02/24 acetaminophen 500 mg tablet 1,000 mg (2 x 500 mg) PO Q6H PRN 08/28/23 05/02/24 #40 tabs ibuprofen 800 mg tablet 800 mg PO Q8H PRN #15 tabs 08/28/23 05/02/24 lamotrigine 50 mg tablet,extended 50 mg PO DAILY 05/02/24 05/02/24 release 24 hr (Lamictal XR) Previous Rx's ?Medication ?Instructions ?Recorded naloxone 4 mg/actuation nasal spray 4 mg intranasal Q2M PRN #2 ea 12/25/22 acetaminophen 500 mg tablet 1,000 mg (2 x 500 mg) PO Q6H PRN 08/28/23 #40 tabs ibuprofen 800 mg tablet 800 mg PO Q8H PRN #15 tabs 08/28/23 Allergies Allergy/AdvReac Type Severity Reaction Status Date / Time bupropion HCl (From AdvReac Intermediate Contraindic Verified 04/22/24 09:36 Wellbutrin SR) ated General Stated Complaint: Fever CELESTE: 4 Exam Narrative Exam Narrative: Review of Systems: All systems reviewed & are unremarkable except as noted in HPI and below Ill-appearing, febrile Scab noted to mid forehead and periorbital bruising around the left eye, no facial instability or malocclusion PERRL, normal conjunctiva Tachycardic Coarse breath sounds, no focality Nondistended abdomen Right lower extremity with amputation noted No rashes or lesions. no focal neurologic deficits Appropriate mood and affect Course Vital Signs Vital signs: Vital Signs Temperature 39.4 C H 05/02/24 10:16 Pulse 95 H 05/02/24 10:16 Respiratory Rate 18 05/02/24 10:16 Blood Pressure 129/64 05/02/24 10:16 Pulse Oximetry 92 05/02/24 10:16 Temperature 39.3 C H 05/02/24 11:35 Temperature Source Oral 05/02/24 11:35 Pulse 74 05/02/24 15:43 Pulse 74 05/02/24 15:40 Respiratory Rate 16 05/02/24 15:40 Blood Pressure 146/92 H 05/02/24 15:43 Blood Pressure Mean 103 05/02/24 15:43 Blood Pressure Position Supine 05/02/24 11:35 Pulse Oximetry 96 05/02/24 14:30 Oxygen Delivery Method Room Air 05/02/24 11:35 Oxygen Flow Rate 0 05/02/24 10:16 Pain Level 7 05/02/24 10:16 Lab/Test Results Lab/Test Results: 05/02/24 15:01 Blood Blood Culture - Pending 05/02/24 12:52 Urine - Clean Catch Urine Culture - Pending 05/02/24 11:40 Blood Blood Culture - Pending 05/02/24 11:26 Blood Blood Culture - Pending Laboratory Tests Range/Units 05/02/24 05/02/24 05/02/24 11:26 11:58 12:52 WBC (4.4-10.8) 10^3/uL 13.28 H RBC (3.93-5.22) 10^6/uL 3.62 L Hgb (11.2-15.7) g/dL 11.0 L Hct (36.0-46.0) % 33.1 L MCV (80-95) fL 91 MCH (27.0-33.0) pg 30.4 MCHC (32.0-36.0) % 33.2 RDW (11.7-14.6) % 14.2 Plt Count (130-400) 10^3/uL 217 MPV (8.0-11.0) fL 9.4 Immature Gran % % 0.5 Neutrophils % % 84.2 Lymphocytes % % 8.2 Monocytes % % 6.9 Eosinophils % % 0.0 Basophils % % 0.2 Nucleated RBC % (0.0-0.3) % 0.0 Absolute Neutrophils (1.2-6.7) 10^3/uL 11.18 H Absolute Lymphocytes (1.2-3.4) 10^3/uL 1.09 L Absolute Monocytes (0.1-0.8) 10^3/uL 0.92 H Absolute Eosinophils (0.0-0.7) 10^3/uL 0.00 Absolute Basophils (0.0-0.2) 10^3/uL 0.03 VBG Lactate (<or=2.0) mmol/L 1.5 Sodium (136-145) mmol/L 133 L Potassium (3.5-5.1) mmol/L 4.2 Chloride (98-107) mmol/L 97 L Carbon Dioxide (21.0-32.0) mmol/L 27.0 Anion Gap (3-11) mmol/L 9.0 BUN (7-18) mg/dL 8 Creatinine (0.55-1.02) mg/dL 0.7 Est GFR (CKD-EPI 2020) (mL/min/1.73m2) 112.75 Glucose (74-106) mg/dL 83 Calcium (8.5-10.1) mg/dL 8.7 Magnesium (1.8-2.4) mg/dL 1.7 L Total Bilirubin (0.2-1.0) mg/dL 0.73 AST (15-37) U/L 19 ALT (14-59) U/L 20 Alkaline Phosphatase (46-116) U/L 119 H Lactate Dehydrogenase (81-234) U/L Troponin I (<or=51) ng/L 6 Total Protein (6.4-8.2) g/dL 7.7 Albumin (3.4-5.0) g/dL 3.0 L Procalcitonin ng/mL Urine Color (Yellow) Yellow Urine Clarity (Clear) Sl Cloudy Urine pH (5-8) 8.5 H Ur Specific [place] (1.005-1.025) 1.020 Urine Protein (Neg-Trace) mg/dL 100 H Urine Ketones (Negative) mg/dL Negative Urine Blood (Negative) Negative Urine Nitrite (Negative) Negative Urine Bilirubin (Negative) Negative Urine Urobilinogen (Up to 0.2) mg/dL >=8.0 H Ur Leukocyte Esterase (Negative) Negative Urine RBC (0-2) HPF 0-2 Urine WBC (0-5) HPF 0-2 Ur Epithelial Cells (Negative) HPF Many Urine Crystals (Negative) HPF Negative Urine Bacteria (Negative) HPF Rare Urine Casts (Negative) LPF Negative Urine Mucus (Negative) Negative Ur Culture Indicated? C&S Done As Ordered Urine Glucose (Negative) mg/dL Negative Fluid Type Cancelled Fluid LDH Cancelled ABO/Rh AB Positive Antibody Screen NEGATIVE Range/Units 05/02/24 13:00 WBC (4.4-10.8) 10^3/uL RBC (3.93-5.22) 10^6/uL Hgb (11.2-15.7) g/dL Hct (36.0-46.0) % MCV (80-95) fL MCH (27.0-33.0) pg MCHC (32.0-36.0) % RDW (11.7-14.6) % Plt Count (130-400) 10^3/uL MPV (8.0-11.0) fL Immature Gran % % Neutrophils % % Lymphocytes % % Monocytes % % Eosinophils % % Basophils % % Nucleated RBC % (0.0-0.3) % Absolute Neutrophils (1.2-6.7) 10^3/uL Absolute Lymphocytes (1.2-3.4) 10^3/uL Absolute Monocytes (0.1-0.8) 10^3/uL Absolute Eosinophils (0.0-0.7) 10^3/uL Absolute Basophils (0.0-0.2) 10^3/uL VBG Lactate (<or=2.0) mmol/L Sodium (136-145) mmol/L Potassium (3.5-5.1) mmol/L Chloride (98-107) mmol/L Carbon Dioxide (21.0-32.0) mmol/L Anion Gap (3-11) mmol/L BUN (7-18) mg/dL Creatinine (0.55-1.02) mg/dL Est GFR (CKD-EPI 2020) (mL/min/1.73m2) Glucose (74-106) mg/dL Calcium (8.5-10.1) mg/dL Magnesium (1.8-2.4) mg/dL Total Bilirubin (0.2-1.0) mg/dL AST (15-37) U/L ALT (14-59) U/L Alkaline Phosphatase (46-116) U/L Lactate Dehydrogenase (81-234) U/L 154 Troponin I (<or=51) ng/L 6 Total Protein (6.4-8.2) g/dL Albumin (3.4-5.0) g/dL Procalcitonin ng/mL 0.29 Urine Color (Yellow) Urine Clarity (Clear) Urine pH (5-8) Ur Specific [place] (1.005-1.025) Urine Protein (Neg-Trace) mg/dL Urine Ketones (Negative) mg/dL Urine Blood (Negative) Urine Nitrite (Negative) Urine Bilirubin (Negative) Urine Urobilinogen (Up to 0.2) mg/dL Ur Leukocyte Esterase (Negative) Urine RBC (0-2) HPF Urine WBC (0-5) HPF Ur Epithelial Cells (Negative) HPF Urine Crystals (Negative) HPF Urine Bacteria (Negative) HPF Urine Casts (Negative) LPF Urine Mucus (Negative) Ur Culture Indicated? Urine Glucose (Negative) mg/dL Fluid Type Fluid LDH ABO/Rh Antibody Screen POC- Test(urine) Negative Medical Decision Making Emergent evaluation of acute febrile illness. Patient has significant medical comorbidities including IV drug use that complicates her history. Prior history of endocarditis, prior history of cardiac arrest, septic vegetations that result ed in an lower extremity amputation. I am concerned about her current fever. Initial concerns include bacteremia, sepsis, endocarditis, viral illness. Patient had recent COVID diagnosis, viral testing today indicates a negative COVID and flu test. Given her history lab work and cultures were obtained, broad-spectrum antibiotics were initiated. Patient is noted to have a leukocytosis of 13. Does have some mild anemia of 11. Tripped she does have a left shift. Her lactic acid is not elevated. Her magnesium is slightly low and does not need emergent IV replacement. Her procalcitonin is slightly elevated. Her troponin was not elevated. Her urinalysis is not infected, but a urine culture has been sent. Her chest x-ray is indicative of bilateral infiltrate. This is pneumonia versus septic emboli until further evaluated. She is not hypoxic or having any respiratory distress or required respiratory intervention. I have reviewed her medical record and prior cultures but have not noted recent positive blood cultures. Old blood cultures were positive for MRSA. At this time the patient will be admitted for further management antibiotic therapy fever monitoring and echocardiogram to evaluate for further endocarditis complications. Quality:SDOH Health Related Social Needs: No Data to Display Critical Care Time Critical Care Time Critical Care Time: Yes Total Critical Care Time: 38 Attestation: CRITICAL CARE Upon my evaluation, this patient had a high probability of imminent or life- threatening deterioration due to sepsis which required my direct attention, intervention, and personal management. I have personally provided 38 minutes of critical care time exclusive of time spent on separately billable procedures. Time includes review of laboratory data, radiology results, discussion with consultants, and monitoring for potential decompensation. Interventions were performed as documented above. [facility] All Active Problems (Updated 05/02/24 @ 16:10 by Kayla Wiley MD) Pneumonia (Acute) Facial trauma (Acute) Fever (Acute) COVID-19 (Acute) Right maxillary sinusitis (Acute) No-show for appointment (Acute) Pain (Acute) IVDU (intravenous drug user) (Acute) Effusion of knee joint, left (Acute) Fall (Acute) Methadone maintenance therapy patient (Acute) Cellulitis of left foot (Acute) Postop check (Acute) Wound infection (Acute) Wound dehiscence (Acute) Cardiac asystole (Acute) Hepatitis C (Chronic) Mild tricuspid regurgitation (Acute) Anemia (Chronic) Localized swelling of left lower extremity (Acute) Cellulitis (Acute) Smoker (Acute) Viral illness (Acute) History of prior with IUGR (Acute 01/11/15) History of kidney injury (Acute 01/17/16) Acute January, History of drug abuse (Acute 01/17/16) In IP treatment at [facility], no longer on methadone as of 01/17/16. Family court is close to resolved - will end . She is expecting 1st daughter to come home. Depression (Acute 01/11/15) Chronic hepatitis C without hepatic coma (Chronic 01/11/15) Cardiomyopathy (Chronic 01/22/16) Anemia of chronic disease (Acute 01/17/16) ADHD, hyperactive-impulsive type (Chronic 05/14/16) Insomnia (Acute) DVT prophylaxis (Acute) Fever (Acute) Prepatellar bursitis of right knee (Acute) Anxiety (Chronic) Anemia (Chronic) Opioid dependence (Chronic) Mitral regurgitation (Chronic) Edema (Acute) Medical History Lack of intravenous access IV drug user Left posterior fascicular block (LPFB) RBBB Fungemia Closed head injury Cardiac arrest with successful resuscitation Pulmonary nodules Anemia Scalded skin syndrome Alcohol abuse Hx of cocaine abuse Personality disorder Herpes, vulvar PTSD (post-traumatic stress disorder) ADHD Subacute endocarditis (01/22/16) MSSA endocarditis January, HSV infection Hx of infant who one week after . ? HSV or H1N1 infection. Pt has been on prophylaxis with pregnancies. Depression difficulty bonding with 2nd child. child removed from her custody. was on Wellbutrin but had sz and not on meds at this time. has appt with counselor 03/2015 Surgical History section (11/24/12) PCD @ 35w. IUGR. NRFH. [id number]. [facility] [place]. 03/26/15 RCD. Pt arrived in labor and declined SUN. F. Jessica. Amputation 12/23/16;[facility]; RIGHT BELOW THE KNEE Family History Mother No problems noted. Father No problems noted. Brother No problems noted. Grandfather No problems noted. Grandfather No problems noted. Grandmother No problems noted. Grandmother No problems noted. Son No problems noted. Son No problems noted. Daughter No problems noted. Daughter No problems noted. Social History Smoking/Tobacco Use Status: Current every day Tobacco Type: cigarettes Smoking risk assessment performed?: Yes Alcohol Intake: current Alcohol Intake frequency: a few times a month Alcohol type: beer Drug use: Occasionally Substance use type: marijuana, crack/cocaine, heroin, amphetamines, opiates, IV drugs, methamphetamine and unknown Housing: house Do you feel safe at home: Yes Do you feel safe in your relationship?: Yes Additional Social history: pt states she is on methadone History History 4 Para 4 Hx # Term Pregnancies Multiple births Hx # Pregnancies Ectopic pregnancies AB induced Hx Number of Living Children 3 AB spontaneous Past Pregnancies Del. Date GA/Weeks # Preg Succ Route Wgt Sex Labor Lgth Anesth esia Location [facility] 12/28/20 25 Delivery Date: 12/28/20 Last Updated by: Roxanna Rocha LPN Patient transferred OB care to [facility] PAW Have you Been Recently Intoxicated or Drunk Within the Last 30 days?: No Have you Ever Experienced Previous Episodes of Alcohol Withdrawal?: No Have you ever Experienced Withdrawal Seizures?: No Have you ever Experienced Delirium Tremens(DT)s?: No Have you ever undergone Alcohol Rehabilitation Treatment (i.e, inpt ot outpatient treatment programs)?: No Have you ever Experienced Blackouts?: No Have you ever Combined Alcohol with other Downers within the last 90 days?: No Have you ever Combined Alcohol with any other Substance of Abuse during the last 90 days?: No Positive Blood Alcohol level on Presentation? [PCS.BAL]: No Evidence of Increased Autonomic Activity (i.e. HR>120, tremor, sweating, agitation, nausea)?: No Result: 0
[2024-05-02 17:08] LABS: Troponin I 6 ng/L (<or=51)
[2024-05-02] MEDS: Enoxaparin 40 MG/0.4 ML SYR SC (17:22)
[2024-05-02] MEDS: Normal Saline Flush 10 ML SYR IVP (17:24)
--- NOTE | 2024-05-02 20:11 | HPE_ITS ---
Date of service: 05/02/24 Time of Service: 14:30 Assessment and Plan Assessment and plan (1) Methadone maintenance therapy patient: Status: Acute Assessment and plan: continue home dose of methadone (2) Pain: Status: Acute Assessment and plan: Continue multimodal pain management with: home meds continue gabapentin, duloxetine, methadone Acetaminophen Midline- horrible access issues (3) On deep vein thrombosis (DVT) prophylaxis: Status: Deleted Assessment and plan: On Lovenox SC (4) ADHD: Assessment and plan: Continue methylphenidate 20 mg tid (5) Discharge planning issues: Status: Resolved Assessment and plan: CM to f/u as needed, no new need a this time. Discussed with Dr. Wilson History of Present Illness History of Present Illness Chief Complaint: Fever and generalized weakness N arrative: The patient is a 38-year-old female with a complex medical history, including intravenous drug use, endocarditis, right lower extremity osteomyelitis with amputation, and prior episodes of fungemia. She presents with a complaint of fever and generalized weakness, which started 3 days ago, along with high fevers, cough, and some shortness of breath. Her fevers had initially resolved after being diagnosed with COVID two weeks ago, but they have since returned. She denies chest pain but reports poor oral intake, generalized weakness, and a recent fall leading to facial trauma. She has a history of IV drug use, with her last reported use 6 months ago, and ongoing intermittent use of fentanyl. Given her complex background, including prior endocarditis, septic vegetations, and a history of cardiac arrest, there are concerns regarding possible bacteremia, sepsis, and endocarditis. The patient?s current presentation raises suspicion for bacterial infection or a viral illness, despite a recent COVID diagnosis. On initial evaluation, her laboratory results reveal leukocytosis (13), mild anemia (11), and a left shift. Her lactic acid level is normal, but her procalcitonin is slightly elevated. She is not hypoxic and has no respiratory distress, though her chest X-ray shows bilateral infiltrates, which may indicate pneumonia or septic emboli. Her urinalysis is not suggestive of infection, but a urine culture has been sent. Her troponin level is normal. Given her clinical presentation and history, she is being admitted for further workup, which includes broad-spectrum antibiotic therapy, fever monitoring, and an echocardiogram to evaluate for any further complications related to endocarditis. Patient is a full code. Review of Systems All systems reviewed & are unremarkable except as noted in HPI and below PFSH All Active Problems (Updated 05/02/24 @ 16:17 by LYUDMILA MUNGUIA) Pneumonia (Acute) Facial trauma (Acute) Fever (Acute) COVID-19 (Acute) Right maxillary sinusitis (Acute) No-show for appointment (Acute) Pain (Acute) IVDU (intravenous drug user) (Acute) Effusion of knee joint, left (Acute) Fall (Acute) Methadone maintenance therapy patient (Acute) Cellulitis of left foot (Acute) Postop check (Acute) Wound infection (Acute) Wound dehiscence (Acute) Cardiac asystole (Acute) Hepatitis C (Chronic) Mild tricuspid regurgitation (Acute) Anemia (Chronic) Localized swelling of left lower extremity (Acute) Cellulitis (Acute) Smoker (Acute) Viral illness (Acute) History of prior with IUGR (Acute 01/11/15) History of kidney injury (Acute 01/17/16) Acute January, History of drug abuse (Acute 01/17/16) In IP treatment at [facility], no longer on methadone as of 01/17/16. Family court is close to resolved - will end . She is expecting 1st daughter to come home. Depression (Acute 01/11/15) Chronic hepatitis C without hepatic coma (Chronic 01/11/15) Cardiomyopathy (Chronic 01/22/16) Anemia of chronic disease (Acute 01/17/16) ADHD, hyperactive-impulsive type (Chronic 05/14/16) Insomnia (Acute) DVT prophylaxis (Acute) Fever (Acute) Prepatellar bursitis of right knee (Acute) Anxiety (Chronic) Anemia (Chronic) Opioid dependence (Chronic) Mitral regurgitation (Chronic) Edema (Acute) Medical History Lack of intravenous access IV drug user Left posterior fascicular block (LPFB) RBBB Fungemia Closed head injury Cardiac arrest with successful resuscitation Pulmonary nodules Anemia Scalded skin syndrome Alcohol abuse Hx of cocaine abuse Personality disorder Herpes, vulvar PTSD (post-traumatic stress disorder) ADHD Subacute endocarditis (01/22/16) MSSA endocarditis January, HSV infection Hx of who one week after . ? HSV or H1N1 infection. Pt has been on prophylaxis with pregnancies. Depression difficulty bonding with 2nd child. child removed from her custody. was on Wellbutrin but had sz and not on meds at this time. has appt with counselor 03/2015 Surgical History section (11/24/12) PCD @ 35w. IUGR. [facility]. [id number]. [facility] [place]. 03/26/15 RCD. Pt arrived in labor and declined SUN. [facility]. [facility]. Amputation 12/23/16;[facility]; RIGHT BELOW THE KNEE Family History Mother No problems noted. Father No problems noted. Brother No problems noted. Grandfather No problems noted. Grandfather No problems noted. Grandmother No problems noted. Grandmother No problems noted. Son No problems noted. Son No problems noted. Daughter No problems noted. Daughter No problems noted. Social History Smoking/Tobacco Use Status: Current every day Tobacco Type: cigarettes Smoking risk assessment performed?: Yes Alcohol Intake: current Alcohol Intake frequency: a few times a month Alcohol type: beer Drug use: Occasionally Substance use type: marijuana, crack/cocaine, heroin, amphetamines, opiates, IV drugs, methamphetamine and unknown Housing: house Do you feel safe at home: Yes Do you feel safe in your relationship?: Yes Additional Social history: pt states she is on methadone History History 2 4 Para 4 Hx # Term Pregnancies Multiple births Hx # Pregnancies Ectopic pregnancies AB induced Hx Number of Living Children 3 AB spontaneous Past Pregnancies Del. Date GA/Weeks # Preg Succ Route Wgt Sex Labor Lgth Anesth esia Location Prov Complic 12/28/20 25 Delivery Date: 12/28/20 Last Updated by: Roxanna Rocha LPN Patient transferred OB care to [facility] Meds Allergies and Home Medications Allergies Allergy/AdvReac Type Severity Reaction Status Date / Time bupropion HCl (From AdvReac Intermediate Contraindic Verified 04/22/24 09:36 Wellbutrin SR) ated Home Medications ?Medication ?Instructions ?Recorded ?Confirmed ?Type gabapentin 800 mg tablet 1,600 mg PO BID 06/02/21 05/02/24 History methadone 10 mg/mL oral concentrate 120 mg PO DAILY 06/02/21 05/02/24 History furosemide 20 mg tablet 20 mg PO DAILY PRN PRN Edema 12/03/22 05/02/24 History methylphenidate HCl 40 mg biphasic 20 mg PO TID 12/03/22 05/02/24 History 50-50 capsule,extended release (Ritalin LA) duloxetine 60 mg capsule,delayed 60 mg PO DAILY 12/22/22 05/02/24 History release naloxone 4 mg/actuation nasal spray 4 mg intranasal Q2M PRN #2 ea 12/25/22 05/02/24 Rx acetaminophen 500 mg tablet 1,000 mg (2 x 500 mg) PO Q6H PRN 08/28/23 05/02/24 Rx #40 tabs ibuprofen 800 mg tablet 800 mg PO Q8H PRN #15 tabs 08/28/23 05/02/24 Rx lamotrigine 50 mg tablet,extended 50 mg PO DAILY 05/02/24 05/02/24 History release 24 hr (Lamictal XR) Exam Narrative Exam Narrative: * Ill-appearing, febrile female patient * Scab on mid-forehead, periorbital bruising around left eye * No facial instability or malocclusion * Pupils equal, round, reactive to light, normal conjunctiva * Tachycardic * Coarse breath sounds, no focal findings * Abdomen nondistended * Right lower extremity amputation noted * No rashes or lesions * No focal neurologic deficits * Appropriate mood and affect Results Labs 05/02/24 11:58 05/02/24 11:58 Labs: Laboratory Results - last 24 hr 05/02/24 05/02/24 05/02/24 11:26 11:58 12:52 WBC 13.28 H RBC 3.62 L Hgb 11.0 L Hct 33.1 L MCV 91 MCH 30.4 MCHC 33.2 RDW 14.2 Plt Count 217 MPV 9.4 Immature Gran % 0.5 Neutrophils % 84.2 Lymphocytes % 8.2 Monocytes % 6.9 Eosinophils % 0.0 Basophils % 0.2 Nucleated RBC % 0.0 Absolute Neutrophils 11.18 H Absolute Lymphocytes 1.09 L Absolute Monocytes 0.92 H Absolute Eosinophils 0.00 Absolute Basophils 0.03 VBG Lactate 1.5 Sodium 133 L Potassium 4.2 Chloride 97 L Carbon Dioxide 27.0 Anion Gap 9.0 BUN 8 Creatinine 0.7 Est GFR (CKD-EPI 2020) 112.75 Glucose 83 Calcium 8.7 Magnesium 1.7 L Total Bilirubin 0.73 AST 19 ALT 20 Alkaline Phosphatase 119 H Lactate Dehydrogenase Troponin I 6 Total Protein 7.7 Albumin 3.0 L Procalcitonin Urine Color Yellow Urine Clarity Sl Cloudy Urine pH 8.5 H Ur Specific Henderson 1.020 Urine Protein 100 H Urine Ketones Negative Urine Blood Negative Urine Nitrite Negative Urine Bilirubin Negative Urine Urobilinogen >=8.0 H Ur Leukocyte Esterase Negative Urine RBC 0-2 Urine WBC 0-2 Ur Epithelial Cells Many Urine Crystals Negative Urine Bacteria Rare Urine Casts Negative Urine Mucus Negative Ur Culture Indicated? C&S Done As Ordered Urine Glucose Negative Fluid Type Cancelled Fluid LDH Cancelled ABO/Rh AB Positive Antibody Screen NEGATIVE 05/02/24 05/02/24 13:00 16:44 WBC RBC Hgb Hct MCV MCH MCHC RDW Plt Count MPV Immature Gran % Neutrophils % Lymphocytes % Monocytes % Eosinophils % Basophils % Nucleated RBC % Absolute Neutrophils Absolute Lymphocytes Absolute Monocytes Absolute Eosinophils Absolute Basophils VBG Lactate Sodium Potassium Chloride Carbon Dioxide Anion Gap BUN Creatinine Est GFR (CKD-EPI 2020) Glucose Calcium Magnesium Total Bilirubin AST ALT Alkaline Phosphatase Lactate Dehydrogenase 154 Troponin I 6 6 Total Protein Albumin Procalcitonin 0.29 Urine Color Urine Clarity Urine pH Ur Specific Henderson Urine Protein Urine Ketones Urine Blood Urine Nitrite Urine Bilirubin Urine Urobilinogen Ur Leukocyte Esterase Urine RBC Urine WBC Ur Epithelial Cells Urine Crystals Urine Bacteria Urine Casts Urine Mucus Ur Culture Indicated? Urine Glucose Fluid Type Fluid LDH ABO/Rh Antibody Screen Last Vital Signs Temp 37 C 05/02/24 16:21 Pulse 73 05/02/24 16:21 Resp 16 05/02/24 16:21 BP 120/72 05/02/24 16:21 Pulse Ox 97 05/02/24 16:21 PAWSS Have you Been Recently Intoxicated or Drunk Within the Last 30 days?: Yes Have you Ever Experienced Previous Episodes of Alcohol Withdrawal?: Yes Have you ever Experienced Withdrawal Seizures?: No Have you ever Experienced Delirium Tremens(DT)s?: No Have you ever undergone Alcohol Rehabilitation Treatment (i.e, inpt ot outpatient treatment programs)?: Yes Have you ever Experienced Blackouts?: Yes Have you ever Combined Alcohol with other Downers within the last 90 days?: No Have you ever Combined Alcohol with any other Substance of Abuse during the last 90 days?: No Positive Blood Alcohol level on Presentation? [PCS.BAL]: No Evidence of Increased Autonomic Activity (i.e. HR>120, tremor, sweating, agitation, nausea)?: No Result: 4 Time Spent Time spent with Patient: 55-74 minutes Time was spent: preparing to see the patient(eg.review tests), obtaining and/or reviewing separately otained hiistory, ordering medications,tests, procedures, referring, communicating with other health manager career, indepentently interpreting results, counseling the patient and care coordination
[2024-05-02] MEDS: lamoTRIgine 25 MG TAB PO (23:03)
[2024-05-02] MEDS: CEFEPIME 2 GM in Normal Saline 100 ML IVPB (23:23)
[2024-05-02 23:57] LABS: Vancomycin, Trough 7.1 ug/mL (10.0-20.0)
[2024-05-03] VITALS (19 sets, daily range): BP systolic 107–140; BP diastolic 61–92; PULSE 53–82; RESP 18–20; TEMP 36–38.3; O2SAT 97–100
[2024-05-03] MEDS: Methylphenidate 10 MG TAB 20 MG PO ×3 (05:24→13:27)
[2024-05-03 07:06] LABS: Abs Immature Grans 0.02 10^3/uL (0.0-0.06); Absolute Basophil Count 0.02 10^3/uL (0.0-0.2); Absolute Eosinophil Count 0.08 10^3/uL (0.0-0.7); Absolute Lymphocyte Count 0.97 10^3/uL (1.2-3.4); Absolute Monocyte Count 0.43 10^3/uL (0.1-0.8); Absolute Neutrophil Count 4.19 10^3/uL (1.2-6.7); Basophils % 0.4 %; Eosinophils % 1.4 %; HCT 32.6 % (36.0-46.0); HGB 10.3 g/dL (11.2-15.7); Immature Grans % 0.4 %; MCH 29.9 pg (27.0-33.0); MCHC 31.6 % (32.0-36.0); MCV 95 fL (80-95); MPV 9.4 fL (8.0-11.0); Monocytes % 7.5 %; Neutrophils % 73.3 %; Platelet Count 180 10^3/uL (130-400); RBC 3.45 10^6/uL (3.93-5.22); RDW 14.1 % (11.7-14.6); RDW-SD 48.5 fL; WBC 5.71 10^3/uL (4.4-10.8)
[2024-05-03 07:30] LABS: Anion Gap 3.9 mmol/L (3-11); BUN 12 mg/dL (7-18); C-Reactive Protein 16.61 mg/dL (<or=0.5); CO2 31.1 mmol/L (21.0-32.0); CREATININE 0.7 mg/dL (0.55-1.02); Calcium 8.6 mg/dL (8.5-10.1); Chloride 105 mmol/L (98-107); Estimated GFR 112.75 (mL/min/1.73m2); Glucose 108 mg/dL (74-106); Magnesium 2.2 mg/dL (1.8-2.4); Potassium 4.2 mmol/L (3.5-5.1); Sodium 140 mmol/L (136-145)
[2024-05-03] MEDS: Ibuprofen 800 MG TAB PO ×2 (07:40→16:54)
[2024-05-03] MEDS: Gabapentin 800 MG TAB 1600 MG PO ×2 (07:40→20:08)
[2024-05-03] MEDS: DULoxetine 30 MG CAP 60 MG PO (07:40)
[2024-05-03] MEDS: Acetaminophen 500 MG TAB 1000 MG PO ×2 (07:41→16:53)
[2024-05-03] MEDS: Normal Saline Flush 10 ML SYR IVP (07:41)
[2024-05-03] MEDS: Methadone Liquid 10 MG/ML 120 MG PO (08:33)
[2024-05-03] MEDS: lamoTRIgine 25 MG TAB PO ×2 (08:48→20:08)
[2024-05-03] MEDS: CEFEPIME 2 GM in Normal Saline 100 ML IVPB ×3 (08:54→23:28)
[2024-05-03 10:44] LABS: Vancomycin, Random 1.4 ug/mL
[2024-05-03] MEDS: VANCOMYCIN/WATER (PEG) 1.75 GM/350 ML BAG IV (11:15)
--- NOTE | 2024-05-03 15:37 | NUR.NOTE ---
patient resting in room, denies pain, lung sounds similar to this AM (diminshed, no crackles, productive cough), MANAGER CATH LAB Bere to see pt soon, resting in bed, urine cx with NGTD. Denies further needs. Call serra in reachNursing Note:
[2024-05-03] MEDS: Enoxaparin 40 MG/0.4 ML SYR SC (16:41)
[2024-05-03] MEDS: Ondansetron 4 MG/2 ML VIAL IVP (16:55)
--- NOTE | 2024-05-03 17:44 | INITIAL_ITS ---
Date of service: 05/03/24 Time of Service: 16:00 Care Management Initial Assmt Initial Assessment Reason for Hospitalization: fever and generalized weakness, pneumonia Functional Status/Living Situation Patient Presentation: Denisse was admitted through the ED after coming in with c/o fever and generalized weakness, along with high fevers, cough and SOB. Denisse stated that she fell because she stood up without her prosthesis. She suffered a black eye a laceration on the bridge of her nose due to that fall. Today Denisse was sitting up in the bed when met with her. She was very pleas ant and easily engaged. She stated that she had never felt so sick, but is feeling better and hoping to go home tomorrow. Town of Residence: [facility] Resides with: Parent (Lives with parents and her 2 daughters. 1 daughter spends a good amount of time with her dad.) Significant Other/Family: Local (Parents, daughters and her daughter's father.) Natural Supports: family Employment Status: Unemployed (is working on getting disability. would like to work part -time once that is secured) Instrumental Activities of Daily Living (ADLs): Independent Activities/Hobbies/SocialSupport: Not doing much of anything right now. Focused on staying sober Medications Medication Management: No Issues/Barriers identified Advance Directives Advance Directives: Do you have an Advance Directive: N 07/16/12 17:03 AD On File at [facility]: N 06/13/12 00:00 Date Asked 04/22/24 04/22/24 09:19 AD Date Reviewed COLST On File at [facility] No 10/03/23 17:24 COLST Date Scanned Code Status Resuscitation Status Full Code Insurance Coverage/Financial Issues Insurance: Medicaid Care Team Visit Care Team Role Provider Type Bere Doherty NP MD [facility] STAFF PHYSICIAN Glenn Tinajero Primary Care Provider NON-[facility] STAFF PH YSICIAN Kayla Wiley MD Emergency Provider [facility] STAFF PHYSICIAN Ashok Wilson, Admit Provider [facility] STAFF PHYSICIAN Attending Provider Discharge Potential Discharge Needs: PCP F/U Appt Anticipated Barriers to Discharge: None Identified Patient/Family Education Needs: Review discharge instructions, discuss Ask Me Three Transportation: Private vehicle (after 2 pm) Plan: Anticipate that Denisse will be discharged home with no new services. She will be given resources to help with her addiction. She will f/u with her PCP and continue per her plan of care. She will be transported home in a private vehicle. CM will continue to follow and update the plan as needed. Social Determinants of Health Screening Social Determinants of Health last assessed: 05/03/24 Will the Patient Participate in the Screening?: Yes Do you worry about having a steady place to live?: no Problems where you live: no known problems In the past 12 months, have you had to go without electric, gas, oil or water in your home?: no Have you or anyone in your house had to go without enough food to eat?: no Has lack of transportation kept you from medical appointments or from doing things needed for daily living?: no Has anyone in your life made you feel unsafe or unsupported?: no How hard is it for you to pay for the very basics like food, housing, medical care, and heating? Would you say it is:: Not hard at all Do you want help finding or keeping work or a job?: I do not need or want help If for any reason you need help with day-to-day activities such as bathing, preparing meals, shopping, managing finances, etc., do you get the help you need?: I don?t need any help How often do you feel lonely or isolated from those around you?: Never Do you speak a language other than Maltese at home?: No Does the patient want assistance with any of the above?: No PFSH All Active Problems (Updated 05/02/24 @ 16:17 by LYUDMILA MUNGUIA) Pneumonia (Acute) Facial trauma (Acute) Fever (Acute) COVID-19 (Acute) Right maxillary sinusitis (Acute) No-show for appointment (Acute) Pain (Acute) IVDU (intravenous drug user) (Acute) Effusion of knee joint, left (Acute) Fall (Acute) Methadone maintenance therapy patient (Acute) Cellulitis of left foot (Acute) Postop check (Acute) Wound infection (Acute) Wound dehiscence (Acute) Cardiac asystole (Acute) Hepatitis C (Chronic) Mild tricuspid regurgitation (Acute) Anemia (Chronic) Localized swelling of left lower extremity (Acute) Cellulitis (Acute) Smoker (Acute) Viral illness (Acute) History of prior with IUGR (Acute 01/11/15) History of kidney injury (Acute 01/17/16) Acute January, History of drug abuse (Acute 01/17/16) In IP treatment at [place], no longer on methadone as of 01/17/16. Family court is close to resolved - will end . She is expecting 1st daughter to come home. Depression (Acute 01/11/15) Chronic hepatitis C without hepatic coma (Chronic 01/11/15) Cardiomyopathy (Chronic 01/22/16) Anemia of chronic disease (Acute 01/17/16) ADHD, hyperactive-impulsive type (Chronic 05/14/16) Insomnia (Acute) DVT prophylaxis (Acute) Fever (Acute) Prepatellar bursitis of right knee (Acute) Anxiety (Chronic) Anemia (Chronic) Opioid dependence (Chronic) Mitral regurgitation (Chronic) Edema (Acute) Medical History Lack of intravenous access IV drug user Left posterior fascicular block (LPFB) RBBB Fungemia Closed head injury Cardiac arrest with successful resuscitation Pulmonary nodules Anemia Scalded skin syndrome Alcohol abuse Hx of cocaine abuse Personality disorder Herpes, vulvar PTSD (post-traumatic stress disorder) ADHD Subacute endocarditis (01/22/16) MSSA endocarditis January, HSV infection Hx of who one week after . ? HSV or H1N1 infection. Pt has been on prophylaxis with pregnancies. Depression difficulty bonding with 2nd child. child removed from her custody. was on Wellbutrin but had sz and not on meds at this time. has appt with counselor 03/2015 Surgical History section (11/24/12) [facility] 35w[id number] [place]. 03/26/15 RCD. Pt arrived in labor and declined SUN. F. Jessica. Amputation 12/23/16;[facility]; RIGHT BELOW THE KNEE Family History Mother No problems noted. Father No problems noted. Brother No problems noted. Grandfather No problems noted. Grandfather No problems noted. Grandmother No problems noted. Grandmother No problems noted. Son No problems noted. Son No problems noted. Daughter No problems noted. Daughter No problems noted. Social History Smoking/Tobacco Use Status: Current every day Tobacco Type: cigarettes Smoking risk assessment performed?: Yes Alcohol Intake: current Alcohol Intake frequency: a few times a month Alcohol type: beer Drug use: Occasionally Substance use type: marijuana, crack/cocaine, heroin, amphetamines, opiates, IV drugs, methamphetamine and unknown Housing: house Do you feel safe at home: Yes Do you feel safe in your relationship?: Yes Additional Social history: pt states she is on methadone History History 4 Para 4 Hx # Term Pregnancies Multiple births Hx # Pregnancies Ectopic pregnancies AB induced Hx Number of Living Children 3 AB spontaneous Past Pregnancies Del. Date GA/Weeks # Preg Succ Route Wgt Sex Labor Lgth Anesth esia Location Prov Complic 12/28/20 25 Delivery Date: 12/28/20 Last Updated by: Roxanna Rocha LPN Patient transferred OB care to [facility] Readmission Within the Past 30 Days Yes or No: No
[2024-05-03] MEDS: VANCOMYCIN/WATER (PEG) 1.25 GM/250 ML BAG IV (18:34)
--- NOTE | 2024-05-03 18:47 | W.PM.PROGNOT ---
Date of Service Date of service: 05/03/24 Time of Service: 18:47 Assessment and Plan Assessment and plan (1) Fever: Status: Acute Assessment and plan: Continue vanco - add zosyn BC rechecked So far negative - continues to have fever Taking in oral liquids Tylenol for fever Hx endocarditits - echo in am (2) Methadone maintenance therapy patient: Status: Acute Assessment and plan: continue home dose of methadone (3) Pain: Status: Acute Assessment and plan: Continue multimodal pain management with: home meds continue gabapentin, duloxetine, methadone Acetaminophen Midline- in place (4) On deep vein thrombosis (DVT) prophylaxis: Status: Acute Assessment and plan: On Lovenox SC (5) Facial trauma: Status: Acute (6) ADHD: Assessment and plan: Continue methylphenidate 20 mg BID (corrected dose - discussed with [facility] re approp current dosing) (7) Discharge planning issues: Status: Resolved Assessment and plan: CM to f/u as needed, no new need a this time. Requests info re [facility] in [facility] - working on getting info. Discussed with Dr. Wilson Subjective Subjective Patient reports: no new complaints, tolerating liquids well, tolerating a regular diet, voiding w/o difficulty, bowel movement and fever; denies flatus, diarrhea, nausea, vomiting or shortness of breath Interval history since last seen: Awake and alert, tearful, states she does not want to do drugs anymore, has a good relationship with father of three year old also has a 9 year old. She is currently living with her mother and doing well, however knows she would benefit from acute intermediate frame tender drug rehab. Motivated to get well and clean. Exam Narrative Exam Narrative: Ill-appearing, febrile female patient Scab on mid-forehead, periorbital bruising around left eye No facial instability or malocclusion Pupils equal, round, reactive to light, normal conjunctiva Tachycardic Coarse breath sounds, no focal findings Abdomen nondistended Right lower extremity amputation noted No rashes or lesions No focal neurologic deficits Appropriate mood and affect Objective Last Vital Signs Temp 37.9 C H 05/03/24 18:34 Pulse 75 05/03/24 15:21 Resp 18 05/03/24 15:21 BP 128/92 H 05/03/24 15:21 Pulse Ox 98 05/03/24 15:21 Laboratory Results - last 24 hr 05/02/24 05/03/24 05/03/24 22:40 05:30 09:35 WBC 5.71 RBC 3.45 L Hgb 10.3 L Hct 32.6 L MCV 95 D MCH 29.9 MCHC 31.6 L RDW 14.1 Plt Count 180 MPV 9.4 Immature Gran % 0.4 Neutrophils % 73.3 Lymphocytes % 17.0 Monocytes % 7.5 Eosinophils % 1.4 Basophils % 0.4 Nucleated RBC % 0.0 Absolute Neutrophils 4.19 Absolute Lymphocytes 0.97 L Absolute Monocytes 0.43 Absolute Eosinophils 0.08 Absolute Basophils 0.02 Sodium 140 Potassium 4.2 Chloride 105 Carbon Dioxide 31.1 Anion Gap 3.9 BUN 12 Creatinine 0.7 Est GFR (CKD-EPI 2020) 112.75 Glucose 108 H Calcium 8.6 Magnesium 2.2 C-Reactive Protein 16.61 H Vancomycin Trough 7.1 L Random Vancomycin 1.4 PAWSS Have you Been Recently Intoxicated or Drunk Within the Last 30 days?: Yes Have you Ever Experienced Previous Episodes of Alcohol Withdrawal?: Yes Have you ever Experienced Withdrawal Seizures?: No Have you ever Experienced Delirium Tremens(DT)s?: No Have you ever undergone Alcohol Rehabilitation Treatment (i.e, inpt ot outpatient treatment programs)?: Yes Have you ever Experienced Blackouts?: Yes Have you ever Combined Alcohol with other Downers within the last 90 days?: No Have you ever Combined Alcohol with any other Substance of Abuse during the last 90 days?: No Positive Blood Alcohol level on Presentation? [PCS.BAL]: No Evidence of Increased Autonomic Activity (i.e. HR>120, tremor, sweating, agitation, nausea)?: No Result: 4 Time Spent with Patient Time Spent with Patient: >50 minutes Time was spent: preparing to see the patient(eg.review tests), obtaining and/or reviewing separately otained hiistory, ordering medications,tests, procedures, referring, communicating with other health director of managed care, indepentently interpreting results, counseling the patient and care coordination
[2024-05-03] MEDS: Zolpidem 10 MG TAB PO (20:08)
[2024-05-03] MEDS: Melatonin 3 MG TAB 9 MG PO (20:08)
[2024-05-04] MEDS: VANCOMYCIN/WATER (PEG) 1.25 GM/250 ML BAG IV ×3 (01:52→20:06)
[2024-05-04 02:30] VITALS: TEMP 38
[2024-05-04] MEDS: Acetaminophen 500 MG TAB 1000 MG PO ×2 (02:59→18:00)
[2024-05-04 04:01] VITALS: BP 128/79; PULSE 74; RESP 16; TEMP 38.6; O2SAT 96
[2024-05-04] MEDS: Methylphenidate 10 MG TAB 20 MG PO ×3 (05:21→14:15)
[2024-05-04 07:04] LABS: Abs Immature Grans 0.01 10^3/uL (0.0-0.06); Absolute Basophil Count 0.01 10^3/uL (0.0-0.2); Absolute Eosinophil Count 0.14 10^3/uL (0.0-0.7); Absolute Lymphocyte Count 0.52 10^3/uL (1.2-3.4); Absolute Monocyte Count 0.26 10^3/uL (0.1-0.8); Absolute Neutrophil Count 2.35 10^3/uL (1.2-6.7); Basophils % 0.3 %; Eosinophils % 4.3 %; HCT 31.2 % (36.0-46.0); Immature Grans % 0.3 %; Lymphocytes % 15.8 %; MCH 29.6 pg (27.0-33.0); MCHC 32.1 % (32.0-36.0); MCV 92 fL (80-95); MPV 9.2 fL (8.0-11.0); Monocytes % 7.9 %; Neutrophils % 71.4 %; Platelet Count 183 10^3/uL (130-400); RBC 3.38 10^6/uL (3.93-5.22); RDW 13.6 % (11.7-14.6); RDW-SD 46.2 fL; WBC 3.29 10^3/uL (4.4-10.8)
[2024-05-04 07:12] LABS: BUN 8 mg/dL (7-18); C-Reactive Protein 9.48 mg/dL (<or=0.5); CREATININE 0.6 mg/dL (0.55-1.02); Chloride 99 mmol/L (98-107); Estimated GFR 117.02 (mL/min/1.73m2); Glucose 105 mg/dL (74-106); Magnesium 1.7 mg/dL (1.8-2.4); Potassium 4.4 mmol/L (3.5-5.1); Sodium 134 mmol/L (136-145)
[2024-05-04 08:21] VITALS: BP 129/95; PULSE 76; RESP 16; TEMP 37.2; O2SAT 95
[2024-05-04] MEDS: Methadone Liquid 10 MG/ML 120 MG PO (08:23)
[2024-05-04] MEDS: Gabapentin 800 MG TAB 1600 MG PO ×2 (08:24→20:07)
[2024-05-04] MEDS: lamoTRIgine 25 MG TAB PO ×2 (08:24→20:07)
[2024-05-04] MEDS: DULoxetine 30 MG CAP 60 MG PO (08:24)
[2024-05-04] MEDS: Normal Saline Flush 10 ML SYR IVP ×2 (08:28→20:08)
[2024-05-04] MEDS: Ibuprofen 800 MG TAB PO (08:30)
[2024-05-04] MEDS: CEFEPIME 2 GM in Normal Saline 100 ML IVPB ×2 (09:37→18:01)
--- NOTE | 2024-05-04 15:12 | CHAPLAIN ---
Denisse and I know each other from her previous admissions. She said she came in after feeling weak. She had COVID two weeks ago. She feel recently and bruised her face. Denisse is working to stay in recovery.She said both her parents have many years of recovery, although her mom was actively drinking when Denisse was young. Her close friend is the director of the [facility] in [facility]. Denisse and her 9 year old daughter live with Denisse's mom and that is working well, Denisse said. Denisse's three year old daughter lives with the daughter's father, Carlos, and Denisse sees her often. Denisse said she and Carlos get along well. He is four years into his sobriety and is encouraging Denisse's sobriety as well. Denisse talked about the of her son, her first child, who came back to the hospital a few days after his and was [facility]ARTed to [facility] with Denisse and the flown to another hospital in [place]. He a few days later. Denisse talked about holding him for the lat time before he went in to the incubator. His is still prominent in Denisse's mind and we talked about how those life traumas stay with us for ever. We also talked about a variety of mandaeism faiths, the politics and if everything in life happens for a reason or is random. I will continue to visit.
[2024-05-04] MEDS: Enoxaparin 40 MG/0.4 ML SYR SC (16:53)
--- NOTE | 2024-05-04 17:56 | PDOC.CMPRO ---
Date of service: 05/04/24 Time of Service: 14:30 Care Management Progress Note Progress Note Text Progress Note Text: Denisse is feeling a bit better today, but is still c/o intermittent chills and a cough. She is planning on discharge for tomorrow as long as she is well enough. Denisse showered today, which she said felt amazing. Denisse spoke with a Optical Store Manager from [facility] today and after that meeting she called the [facility] in [place], [place], an addiction recovery center, and performed an intake over the phone. CM sat with Denisse and supported her while she made that call. CM also provided Denisse with other resources that she can attend as an outpatient, and other inpatient options Discharge Potential Discharge Needs: PCP F/U Appt Anticipated Barriers to Discharge: None Identified Patient/Family Education Needs: Review discharge instructions, discuss Ask Me Three Transportation: Private vehicle Plan: Anticipate that Denisse will be discharged home with no new services. She has been given resources to help with her addiction. She will f/u with her PCP and continue per her plan of care. She will be transported home in a private vehicle. CM will continue to follow and update the plan as needed. Social Determinants of Health Screening Social Determinants of Health last assessed: 05/04/24 Will the Patient Participate in the Screening?: Yes Do you worry about having a steady place to live?: no Problems where you live: no known problems In the past 12 months, have you had to go without electric, gas, oil or water in your home?: no Have you or anyone in your house had to go without enough food to eat?: no Has lack of transportation kept you from medical appointments or from doing things needed for daily living?: no Has anyone in your life made you feel unsafe or unsupported?: no How hard is it for you to pay for the very basics like food, housing, medical care, and heating? Would you say it is:: Not hard at all Do you want help finding or keeping work or a job?: I do not need or want help If for any reason you need help with day-to-day activities such as bathing, preparing meals, shopping, managing finances, etc., do you get the help you need?: I don?t need any help How often do you feel lonely or isolated from those around you?: Never Do you speak a language other than Slovenian at home?: No Does the patient want assistance with any of the above?: No
[2024-05-04 18:00] VITALS: TEMP 39.1
[2024-05-04 19:39] VITALS: BP 132/88; PULSE 85; RESP 20; TEMP 36.3; O2SAT 100
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
[2024-05-04] MEDS: Melatonin 3 MG TAB 9 MG PO (20:07)
[2024-05-04] MEDS: Zolpidem 10 MG TAB PO (20:07)
[2024-05-04 22:25] VITALS: BP 112/75; PULSE 72; RESP 18; TEMP 36; O2SAT 96
[2024-05-05] MEDS: Normal Saline Flush 10 ML SYR IVP ×3 (02:13→19:59)
[2024-05-05] MEDS: CEFEPIME 2 GM in Normal Saline 100 ML IVPB ×3 (02:13→20:08)
[2024-05-05 02:39] LABS: Vancomycin, Trough 14.6 ug/mL (10.0-20.0)
[2024-05-05 02:55] VITALS: BP 134/89; PULSE 68; RESP 17; TEMP 36.7; O2SAT 96
[2024-05-05] MEDS: VANCOMYCIN/WATER (PEG) 1.5 GM/300 ML BAG IV (04:14)
[2024-05-05] MEDS: Methylphenidate 10 MG TAB 20 MG PO ×3 (04:15→13:09)
[2024-05-05 06:14] VITALS: BP 138/84; PULSE 89; RESP 19; TEMP 38.3; O2SAT 97
[2024-05-05] MEDS: Acetaminophen 500 MG TAB 1000 MG PO (06:49)
[2024-05-05 06:51] LABS: Abs Immature Grans 0.02 10^3/uL (0.0-0.06); Absolute Basophil Count 0.01 10^3/uL (0.0-0.2); Absolute Eosinophil Count 0.24 10^3/uL (0.0-0.7); Absolute Lymphocyte Count 0.58 10^3/uL (1.2-3.4); Absolute Monocyte Count 0.32 10^3/uL (0.1-0.8); Absolute Neutrophil Count 1.71 10^3/uL (1.2-6.7); Basophils % 0.3 %; Eosinophils % 8.3 %; HCT 32.4 % (36.0-46.0); HGB 10.5 g/dL (11.2-15.7); Immature Grans % 0.7 %; Lymphocytes % 20.1 %; MCH 29.8 pg (27.0-33.0); MCHC 32.4 % (32.0-36.0); MCV 92 fL (80-95); MPV 8.9 fL (8.0-11.0); Monocytes % 11.1 %; Neutrophils % 59.5 %; Platelet Count 188 10^3/uL (130-400); RBC 3.52 10^6/uL (3.93-5.22); RDW 13.8 % (11.7-14.6); RDW-SD 47.1 fL; WBC 2.88 10^3/uL (4.4-10.8)
[2024-05-05 07:11] LABS: Anion Gap 4.6 mmol/L (3-11); BUN 9 mg/dL (7-18); CO2 27.4 mmol/L (21.0-32.0); CREATININE 0.7 mg/dL (0.55-1.02); Calcium 8.7 mg/dL (8.5-10.1); Chloride 101 mmol/L (98-107); Estimated GFR 112.75 (mL/min/1.73m2); Glucose 124 mg/dL (74-106); Magnesium 1.8 mg/dL (1.8-2.4); Potassium 4.3 mmol/L (3.5-5.1); Sodium 133 mmol/L (136-145)
[2024-05-05 07:44] VITALS: BP 132/90; PULSE 79; RESP 17; TEMP 37.3; O2SAT 99
[2024-05-05] MEDS: Gabapentin 800 MG TAB 1600 MG PO ×2 (08:06→19:58)
[2024-05-05] MEDS: DULoxetine 30 MG CAP 60 MG PO (08:09)
[2024-05-05] MEDS: lamoTRIgine 25 MG TAB PO ×2 (08:10→19:58)
[2024-05-05] MEDS: Methadone Liquid 10 MG/ML 120 MG PO (08:12)
[2024-05-05] MEDS: Ondansetron 4 MG/2 ML VIAL IVP (08:28)
--- NOTE | 2024-05-05 09:59 | PDOC.CMDIS ---
Date of service: 05/05/24 Time of Service: 09:59 LACE Index Scoring Tool Questions: Length of Stay (in days): 3 Was the patient admitted via the E.D.?: Yes Comorbidities: Liver or Renal Disease E.D. Visits: 5 Answers: Total Score: 15 Risk of Readmission: High Risk Care Management Discharge Plan Reason for Hospitalization: fever, pneumonia Discharge Plan: Denisse is discharged today with no new services. She started intake at [facility] in [place], and will f/u with them. She has a PCP appt on 05/30 at 2pm. Denisse will continue her plan of care, and will be given a Last Dose letter for BAART. Denisse will transport home in a private vehicle. SDOH Health Related Social Needs: No Data to Display
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
[2024-05-05 11:12] LABS: Vancomycin, Random 14.6 ug/mL
[2024-05-05 12:01] VITALS: BP 124/82; PULSE 83; RESP 17; TEMP 36.7; O2SAT 98
[2024-05-05] MEDS: DOXYCYCLINE 100 MG in Normal Saline 100 ML IVPB (13:00)
[2024-05-05 14:12] VITALS: BP 142/97; PULSE 103; RESP 16; TEMP 38.5; O2SAT 96
[2024-05-05 15:21] VITALS: BP 126/63; PULSE 89; RESP 17; TEMP 38.4; O2SAT 97
--- NOTE | 2024-05-05 15:59 | NUR.NOTE ---
After some discussion with the patient, it was decided to turn off the bed alarms. The patient was very tearful and felt like she did not need the call bells. She stated she would notify using her call serra if she felt unsteady.
[2024-05-05 16:00] LABS: MRSA PCR Negative (Negative)
--- NOTE | 2024-05-05 16:47 | NUR.NOTE ---
Patient refused x-ray and CT scan. Clinician is aware.
--- NOTE | 2024-05-05 17:34 | CMPROGNOTE_ITS ---
Date of service: 05/05/24 Time of Service: 12:00 Care Management Progress Note Progress Note Text Progress Note Text: Denisse has been very pleasant with CM today. She is still not feeling well, and still having fevers. She would like to go home. CM strongly encouraged her to stay until she is feeling better. Her treatment course has yet to improve her status. Denisse fell today. She stated she bumped her head and her arm, and she lost her midline in the process. She told CM that she has no pain from the fall, but is embarrassed as now she is on the bed alarm. Denisse reported that she had a call from the [facility] today, that she missed. She had yet to call them back when CM met with her as she was febrile and feeling lousy. She was encouraged to call them, any time, as they have 24/7 hours of operation. Discharge Potential Discharge Needs: PCP F/U Appt (has appointment on 05/30 at 2pm) Anticipated Barriers to Discharge: Medical Status Patient/Family Education Needs: Review discharge instructions, discuss Ask Me Three Transportation: Private vehicle Plan: Anticipate that Denisse will be discharged home with no new services. She has been given resources to help with her addiction. She will f/u with her PCP and continue per her plan of care. She will be transported home in a private vehicle. CM will continue to follow and update the plan as needed. Social Determinants of Health Screening Social Determinants of Health last assessed: 05/05/24 Will the Patient Participate in the Screening?: Yes Do you worry about having a steady place to live?: no Problems where you live: no known problems In the past 12 months, have you had to go without electric, gas, oil or water in your home?: no Have you or anyone in your house had to go without enough food to eat?: no Has lack of transportation kept you from medical appointments or from doing thin gs needed for daily living?: no Has anyone in your life made you feel unsafe or unsupported?: no How hard is it for you to pay for the very basics like food, housing, medical care, and heating? Would you say it is:: Not hard at all Do you want help finding or keeping work or a job?: I do not need or want help If for any reason you need help with day-to-day activities such as bathing, preparing meals, shopping, managing finances, etc., do you get the help you need?: I don?t need any help How often do you feel lonely or isolated from those around you?: Never Do you speak a language other than Ukrainian at home?: No Does the patient want assistance with any of the above?: No
[2024-05-05] MEDS: Enoxaparin 40 MG/0.4 ML SYR SC (17:48)
[2024-05-05] MEDS: VANCOMYCIN 1,500 MG in Normal Saline 250 ML 166.667 MG IVPB (18:22)
[2024-05-05] MEDS: Melatonin 3 MG TAB 9 MG PO (19:57)
[2024-05-05] MEDS: Zolpidem 10 MG TAB PO (19:58)
[2024-05-06] MEDS: DOXYCYCLINE 100 MG in Normal Saline 100 ML IVPB ×2 (00:12→12:35)
[2024-05-06 01:18] VITALS: BP 125/70; PULSE 73; RESP 15; TEMP 36.7; O2SAT 95
[2024-05-06 01:44] LABS: *AMPHETAMINES SCREEN URINE Negative (Negative); *BARBITURATES SCREEN URINE Negative (Negative); *BENZODIAZEPINES SCREEN URINE Negative (Negative); Cannabinoids THC Negative (Negative); Cocaine Screen,Urine Negative (Negative); METHADONE URINE SCREEN Positive (Negative); OPIATES URINE SCREEN Negative (Negative)
[2024-05-06 01:49] LABS: Tricyclic Antidepressants Negative (Negative)
[2024-05-06] MEDS: VANCOMYCIN 1,500 MG in Normal Saline 250 ML 166.667 MG IVPB ×2 (02:25→10:36)
[2024-05-06 04:31] VITALS: BP 106/62; PULSE 69; RESP 17; TEMP 37; O2SAT 95
[2024-05-06] MEDS: Methylphenidate 10 MG TAB 20 MG PO ×3 (04:38→11:58)
[2024-05-06] MEDS: CEFEPIME 2 GM in Normal Saline 100 ML IVPB ×2 (04:39→13:51)
[2024-05-06] MEDS: Ondansetron 4 MG/2 ML VIAL IVP (04:58)
[2024-05-06] MEDS: Normal Saline Flush 10 ML SYR IVP ×3 (04:59→14:36)
[2024-05-06 07:30] VITALS: BP 114/77; PULSE 73; RESP 16; TEMP 36.1; O2SAT 98
[2024-05-06] MEDS: DULoxetine 30 MG CAP 60 MG PO (08:38)
[2024-05-06] MEDS: Methadone Liquid 10 MG/ML 120 MG PO (08:39)
[2024-05-06] MEDS: lamoTRIgine 25 MG TAB PO (08:39)
[2024-05-06] MEDS: Gabapentin 800 MG TAB 1600 MG PO (08:39)
--- NOTE | 2024-05-06 11:15 | DSE_ITS ---
Date of service: 05/06/24 Time of Service: 15:04 DS: Diagnosis Discharge Diagnosis (1) Fever: Status: Acute (2) Methadone maintenance therapy patient: Status: Acute (3) Pain: Status: Acute (4) On deep vein thrombosis (DVT) prophylaxis: Status: Acute (5) Facial trauma: Status: Acute (6) ADHD: (7) Discharge planning issues: Status: Resolved (8) Fall: Status: Acute Discharge Plan Disposition Patient Disposition: Against Medical Advice Condition: Improving Discharge Details Reason For Visit: Fever Admit Date/Time: 05/06/24 11:17 Admit Provider: Ashok Wilson Attending Provider: Ashok Wilson Primary Care Provider: Glenn Tinajero Hospital Course Hospital Course: 38 years old female with a complex past medical history including IV drug use, endocarditis with septic dilatation, cardiac arrest, right lower lobe extremity cellulitis with amputation fungemia MRSA colonization presented to the ED on 05/02/2024 with complaints of fever generalized weakness fall at home as well as well as cough and some shortness of breath. The patient was diagnosed with COVID 2 weeks prior to presentation which fever resolving the morning. Patient reported last IV drug use about 6 months ago with ongoing intermittent use of fentanyl. Workup in the ED showed leukocytosis of 13 anemia, slightly elevated procalcitonin chest x-ray showed bilateral infiltrates which might have presented pneumonia. Due to presentation and the possibility of possible bacteremia the patient was started on vancomycin and the patient was admitted to the medical surgical floor pending blood culture results and fever resolution and for evaluation and management of community acquired pneumonia . MRSA nares was negative, blood cultures showed no growth. The patient has been afebrile for over 24 hours. Strep pneumo, Legionella and mycoplasma testing were ordered. The patient will transition to Augmentin to complete the course of treatment. An echocardiogram was completed with LVEF 60 to 65% without findings of left ventricular thrombus, mitral valve chordae are thickened, cardiac valves without evidence of vegetation ; trace mitral valve regurgitation w/o prolapse. The patient will need to follow-up with outpatient cardiology. The patient will need to follow-up with her primary care practitioner within 7 days of discharge. Patient left AMA before provider could talk to her or discharge papers provided. Discussed with Dr. Wilson patient Home Meds and New Rx's Prescriptions: New amoxicillin-pot clavulanate 875-125 mg tablet 1 tab PO BID Qty: 7 0RF Continued gabapentin 800 mg tablet 1,600 mg PO BID methadone 10 mg/mL Concentrate 120 mg PO DAILY Rx Instructions: CONFIRMED DOSE WITH LORIN Khan [facility] 05/02/24 :120mg duloxetine 60 mg capsule,delayed release(DR/EC) 60 mg PO DAILY Patient Comments: Take 1 capsule by mouth once a day take 1 capsule by mouth daily naloxone 4 mg/actuation spray,non-aerosol 4 mg intranasal Q2M PRNQty: 2 12RF Rx Instructions: spray 1 dose into ONE nostril; alternate nostrils w each dose until help arrives lamotrigine [Lamictal XR] 50 mg tablet extended release 24hr 50 mg PO DAILY methylphenidate HCl [Ritalin LA] 40 mg capsule,ER biphasic 50-50 40 mg PO DAILY Patient Comments: Take 1 capsule by mouth once a day furosemide 20 mg tablet 20 mg PO DAILY PRN PRN (Reason: Edema) Patient Comments: 1 tablet by mouth once a day as needed TAKE ONE TABLET BY MOUTH EVERY DAY as needed for edema acetaminophen 500 mg tablet 1,000 mg PO Q6H PRNQty: 40 0RF ibuprofen 800 mg tablet 800 mg PO Q8H PRNQty: 15 0RF Discharge Instructions Instructions: Drug Misuse and Addiction (DC), Opioid use disorder Referrals: Glenn Tinajero [Primary Care Provider] - (Vmail with 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 ) Samira Marquez MD [ [facility] STAFF PHYSICIAN] - (Hx of septic endocarditis, moderate TR regurg on echo- no bacteremia this admit for pneumonia- will need a f/u in 1-2 weeks) Activity:: Activity as Tolerated Equipment/Supplies:: No Equipment Needed Diet:: As Tolerated Discharge Orders Discharge Orders: Discharge Order (Routine); Ordered 05/06/24 Ordered By: Bianca Fox Discharge Data Discharge Date/Time-TO BE ENTERED AT DEPARTURE: 05/06/24 15:41 Discharge Comment: left AMA DS: Summary Time Spent with Patient providing and/or coordinating discharge services: Greater than 30 minutes Status at Discharge Functional status at discharge: independent ambulation (leg prothesis) Overall status at discharge: patient is progressing back to baseline Mental Status: mental status grossly normal Speech and Movement: speech and movement normal Mood: congruent mood Affect: normal affect Quality:SDOH Health Related Social Needs: No Data to Display Exam Psych Mental Status: mental status grossly normal Speech and Movement: speech and movement normal Mood: congruent mood Affect: normal affect DS: Data Vitals/I&O Vitals and I&O: Vital Signs Temperature 36.1 C L 05/06/24 07:30 Temperature Source Temporal Artery Scan 05/06/24 07:30 Pulse 73 05/06/24 07:30 Pulse Rhythm Regular 05/02/24 16:21 Pulse 74 05/02/24 15:40 Respiratory Rate 16 05/06/24 07:30 Respiratory Effort Normal 05/02/24 16:21 Respiratory Depth Normal 05/02/24 16:21 Respiratory Pattern Normal 05/02/24 16:21 Blood Pressure 114/77 05/06/24 07:30 Blood Pressure Mean 103 05/02/24 15:43 Blood Pressure Position Supine 05/02/24 11:35 Pulse Oximetry 98 05/06/24 07:30 Oxygen Delivery Method Room Air 05/06/24 07:30 Oxygen Flow Rate 0 05/06/24 07:30 Pain Level 0 05/06/24 07:30 Comment Patient refused oral tylenol at this time. pt educated on topic, and stated she will ring for RN when she wants tylenol. 05/04/24 02:30 Intake & Output 05/05/24 05/05/24 05/06/24 11:59 23:59 11:59 Intake Total 1580 / 2230 650 / 2230 450 / 450 Output Total 600 / 600 Balance 1580 / 2230 650 / 2230 -150 / -150 Weight 66.2 kg Intake: IV 350 / 1000 650 / 1000 450 / 450 Oral 1230 / 1230 Output: Urine 600 / 600 Other: Urine Color Yellow Yellow Urine Appearance Clear Clear Stool Size Moderate Stool Characteristics Soft Data Completed and Pending Labs on day of discharge: Labs from last 24 hours 05/06/24 05/05/24 01:20 14:00 Urine Opiates Screen Negative Urine Methadone Screen Positive A Urine Fentanyl Screen Pending Ur Barbiturates Screen Negative Ur Tricyclics Screen Negative Ur Amphetamines Screen Negative U Benzodiazepines Scrn Negative Urine Cocaine Screen Negative Ur THC Screen Negative Urine Xylazine Pending MRSA (TEM-PCR) Negative Ur Strep pneumoniae Ag Pending Preliminary micro results at discharge 05/03/24 19:30 Blood Culture - Preliminary Blood NO GROWTH 48 HOURS 05/03/24 19:20 Blood Culture - Preliminary Blood NO GROWTH 48 HOURS 05/02/24 16:44 Blood Culture - Preliminary Blood NO GROWTH 72 HOURS 05/02/24 15:01 Blood Culture - Preliminary Blood NO GROWTH 72 HOURS 05/02/24 11:40 Blood Culture - Preliminary Blood NO GROWTH 72 HOURS PFSH All Active Problems (Updated 05/03/24 @ 18:50 by Bere Doherty NP) Pneumonia (Acute) Facial trauma (Acute) Fever (Acute) COVID-19 (Acute) Right maxillary sinusitis (Acute) On deep vein thrombosis (DVT) prophylaxis (Acute) No-show for appointment (Acute) Pain (Acute) IVDU (intravenous drug user) (Acute) Effusion of knee joint, left (Acute) Fall (Acute) Methadone maintenance therapy patient (Acute) Cellulitis of left foot (Acute) Postop check (Acute) Wound infection (Acute) Wound dehiscence (Acute) Cardiac asystole (Acute) Hepatitis C (Chronic) Mild tricuspid regurgitation (Acute) Anemia (Chronic) Localized swelling of left lower extremity (Acute) Cellulitis (Acute) Smoker (Acute) Viral illness (Acute) History of prior with IUGR (Acute 01/11/15) History of kidney injury (Acute 01/17/16) Acute January, History of drug abuse (Acute 01/17/16) In IP treatment at [place], no longer on methadone as of 01/17/16. Family court is close to resolved - will end . She is expecting 1st daughter to come home. Depression (Acute 01/11/15) Chronic hepatitis C without hepatic coma (Chronic 01/11/15) Cardiomyopathy (Chronic 01/22/16) Anemia of chronic disease (Acute 01/17/16) ADHD, hyperactive-impulsive type (Chronic 05/14/16) Insomnia (Acute) DVT prophylaxis (Acute) Fever (Acute) Prepatellar bursitis of right knee (Acute) Anxiety (Chronic) Anemia (Chronic) Opioid dependence (Chronic) Mitral regurgitation (Chronic) Edema (Acute) Medical History Lack of intravenous access IV drug user Left posterior fascicular block (LPFB) RBBB Fungemia Closed head injury Cardiac arrest with successful resuscitation Pulmonary nodules Anemia Scalded skin syndrome Alcohol abuse Hx of cocaine abuse Personality disorder Herpes, vulvar PTSD (post-traumatic stress disorder) ADHD Subacute endocarditis (01/22/16) MSSA endocarditis January, HSV infection Hx of who one week after . ? HSV or H1N1 infection. Pt has been on prophylaxis with pregnancies. Depression difficulty bonding with 2nd child. child removed from her custody. was on We llbutrin but had sz and not on meds at this time. has appt with counselor 03/2015 Surgical History section (11/24/12) PCD @ 34w. IUGR. [facility]. [id number]. [facility] [place]. 03/26/15 RCD. Pt arrived in labor and declined SUN. F. Jessica. Amputation 12/23/16;[facility]; RIGHT BELOW THE KNEE Family History Mother No problems noted. Father No problems noted. Brother No problems noted. Grandfather No problems noted. Grandfather No problems noted. Grandmother No problems noted. Grandmother No problems noted. Son No problems noted. Son No problems noted. Daughter No problems noted. Daughter No problems noted. Social History Smoking/Tobacco Use Status: Current every day Tobacco Type: cigarettes Smoking risk assessment performed?: Yes Alcohol Intake: current Alcohol Intake frequency: a few times a month Alcohol type: beer Drug use: Occasionally Substance use type: marijuana, crack/cocaine, heroin, amphetamines, opiates, IV drugs, methamphetamine and unknown Housing: house Do you feel safe at home: Yes Do you feel safe in your relationship?: Yes Additional Social history: pt states she is on methadone History History 4 Para 4 Hx # Term Pregnancies Multiple births Hx # Pregnancies Ectopic pregnancies AB induced Hx Number of Living Children 3 AB spontaneous Past Pregnancies Del. Date GA/Weeks # Preg Succ Route Wgt Sex Labor Lgth Anesth esia Location [facility] 12/28/20 25 Delivery Date: 12/28/20 Last Updated by: Roxanna Rocha LPN Patient transferred OB care to [facility] Time Spent with Patient Time Spent with Patient: 70-84 minutes4 Time was spent: preparing to see the patient(eg.review tests), obtaining and/or reviewing separately otained hiistory, ordering medications,tests, procedures, referring, communicating with other health career consultant, indepentently interpreting results, counseling the patient and care coordination
[2024-05-06 11:47] VITALS: BP 127/79; PULSE 87; RESP 16; TEMP 37.1; O2SAT 98
--- NOTE | 2024-05-06 14:39 | PDOC.CMDIS ---
Date of service: 05/06/24 Time of Service: 14:39 LACE Index Scoring Tool Questions: Length of Stay (in days): 4 - 6 Was the patient admitted via the E.D.?: Yes Comorbidities: Mild Liver/Renal Disease and Liver or Renal Disease (chronic hep C) E.D. Visits: 6 Answers: Total Score: 16 Risk of Readmission: High Risk Care Management Discharge Plan Reason for Hospitalization: fever Discharge Plan: Denisse will be discharged home later this afternoon with a plan to f/u with her PCP. She will continue her methadone tx program, and was given a last dose letter. Densise is actively seeking placement in rehab, and has been in touch with a couple of local facilities. Denisse will be given a prescription for oral antibiotics, and will continue per her plan of care. Denisse will transport home in a private vehicle. Patient/Family Education Needs: Review of discharge instructions, activity, limitations, and discuss ask me 3. SDOH Health Related Social Needs: No Data to Display
[2024-05-07 18:36] LABS: Fentanyl Scr w/Rfx Confirm Positive ng/mL (<1)
[2024-05-10 09:27] LABS: Xylazine, Confirmation Urine Negative ng/mL (<50)
[2024-05-10 09:29] LABS: Fentanyl Confirmation Negative ng/mL (<2); Norfentanyl Confirmation Negative ng/mL (<10)
[2024-05-16 08:45] LABS: Streptococcus Pneumoniae Ag, U Negative (Negative)
== END 2024-05-06 15:41 | disposition left against medical advice (07) | DRG 194 ==
LOC: ER 16:10 → MS 22:42
PROVIDERS: Family Medicine; Nurse Practitioner Family; Admitting Provider Hospitalist; Emergency Provider Emergency Medicine; PCP Physician Assistant; Responsible Provider Nurse Practitioner Acute Care; Visit Provider Hospitalist
DX: J18.9 Pneumonia, unspecified organism (principal); F11.20 Opioid dependence, uncomplicated; I42.9 Cardiomyopathy, unspecified; I45.2 Bifascicular block; Z79.899 Other long term (current) drug therapy; F90.9 Attention-deficit hyperactivity disorder, unspecified type; W19.XXXA Unspecified fall, initial encounter; Z89.511 Acquired absence of right leg below knee; R53.1 Weakness; S00.12XA Contusion of left eyelid and periocular area, initial encounter; Z86.74 Personal history of sudden cardiac arrest; D72.829 Elevated white blood cell count, unspecified; D64.9 Anemia, unspecified; Z86.14 Personal history of Methicillin resistant Staphylococcus aureus infection; Z79.01 Long term (current) use of anticoagulants; B18.2 Chronic viral hepatitis C; I07.1 Rheumatic tricuspid insufficiency; F17.210 Nicotine dependence, cigarettes, uncomplicated; J01.00 Acute maxillary sinusitis, unspecified; F32.A Depression, unspecified; F14.11 Cocaine abuse, in remission; F10.10 Alcohol abuse, uncomplicated; F43.10 Post-traumatic stress disorder, unspecified
CPT/HCPCS: 36410 ×2; 00123; 36415; 80048; 80053; 80307; 80354; 80375; 81025; 84145; 86850; 86900; 86901; 87040; 87641; 96365; 96366; 96367; 96368; 96372; 96375; 96376; 99291; J1650; 70450; 71045; 80202; 81003; 81015; 83605; 83615; 83735; 84484; 85025; 86140; 87086; 87899; 93306; 99222; 99232; 99233; 99239; J0692; J2405; J3370; J3372

== ENCOUNTER 2024-05-25 02:01 | Emergency (ER) | payer MEDICAID, SELFPAY ==
--- NOTE | 2024-05-25 02:00 | RT.EKG_ITS ---
APPROVED REPORT Exam: Resting ECG Reason for Exam: Chest pain Patient Location: E HR:121 bpm ECG Measurements Heart Rate 121 AXIS IL 148 P 94 QRSd 91 QRS 90 QT 335 T 62 QTc 476 Conclusion Sinus tachycardia...rate> [address] segment or T wave abnormalities to suggest occlusive CT
[2024-05-25 02:02] VITALS: BP 148/86; PULSE 123; RESP 18; TEMP 37.7; O2SAT 95
[2024-05-25 02:05] VITALS: BP 148/86; PULSE 123
[2024-05-25 02:09] VITALS: BP 148/86; PULSE 123; RESP 18; RESP 22; TEMP 37.7; O2SAT 95
--- NOTE | 2024-05-25 02:15 | DI.CT_ITS ---
Exam(s) CT HEAD WO EXAM: CT HEAD WO CLINICAL HISTORY: fall, head injury. TECHNIQUE: Imaging Protocol: Axial computed tomography images with coronal and sagittal reformatted images were created and reviewed COMPARISON: No exams were available for comparison FINDINGS: Ventricles and Extra axial spaces: Normal in size and morphology for the patient's age. Hemorrhage: None. Cerebral parenchyma: No evidence of acute infarct or mass. Midline shift: None. Brainstem/Cerebellum: Normal. Calvarium: Normal. Visualized Paranasal sinuses:Clear. Mastoids: Clear. Soft Tissues: Unremarkable. ORBITS: Unremarkable. PITUITARY: Not enlarged. IMPRESSION: No acute intracranial process. RADIATION DOSE DELIVERED: 881.3mGy.cm Total DLP DATA REPOSITORY: All CT scans at this facility are submitted to the National Radiology Data Registry (NRDR) Dose Index Registry (DIR) with the [employer] (A[employer]). RADIATION OPTIMIZATION: All CT scans at this facility use at least one of these dose optimization te chniques: automated exposure control; mA and/or kV adjustment per patient size (includes targeted exa ms where dose is matched to clinical indication); or iterative reconstruction.
--- NOTE | 2024-05-25 02:15 | DI.RAD_ITS ---
Exam(s) XR CHEST 2V PA LATERAL EXAM: XR CHEST 2V PA LATERAL CLINICAL HISTORY: chest pain TECHNIQUE: 2D digital imaging was performed. Two views. COMPARISON: CT CT CHEST/ABD/PEL WO from 12/04/2021 CR,XR XR PORTABLE CHEST AP from 12/07/2021 CR XR CHEST 1V IN DI DEPT from 05/02/2024 FINDINGS: HEART: Normal size. Aorta: Not dilated. PULMONARY VASCULATURE: Normal. MEDIASTINUM: Unremarkable. LUNGS: Biapical scarring, left greater than right. Chronic interstitial changes. PLEURAL SPACE: No pleural effusion or pneumothorax. BONE:Unremarkable for age. SOFT TISSUES: Unremarkable. IMPRESSION: No acute abnormality. DATA REPOSITORY: RADIATION DOSE DELIVERED:
[2024-05-25] MEDS: LORazepam 1 MG TAB PO (02:30)
[2024-05-25] MEDS: Acetaminophen 500 MG TAB 1000 MG PO (02:30)
--- NOTE | 2024-05-25 02:30 | DI.RAD_ITS ---
Exam(s) XR SHOULDER RT COMPLETE 2+V EXAM: XR SHOULDER RT COMPLETE 2+V CLINICAL HISTORY: rt shoulder pain s/p fall. TECHNIQUE: 2D digital imaging was performed. Five views. COMPARISON: CR,XR XR SHOULDER RT COMPLETE 2+V from 11/28/2021 FINDINGS: BONES: No acute fracture is present. No bony destructive lesion is seen. JOINTS: No dislocation present. The AC joint is not widened. The glenohumeral joint is maintained. SOFT TISSUE: Normal. IMPRESSION: Unremarkable radiographs of the right shoulder. DATA REPOSITORY: RADIATION DOSE DELIVERED:
--- NOTE | 2024-05-25 02:34 | W.ED.GENAD ---
Discharge Plan Disposition Patient Disposition: [facility] Condition: Good Discharge Details Clinical Impression: Head injury, Chest pain, Acute shoulder pain Primary Care Provider: Glenn Tinajero ED Provider: Yvette Yeung Home Meds and New Rx's Prescriptions: Continued gabapentin 800 mg tablet 1,600 mg PO BID methadone 10 mg/mL Concentrate 120 mg PO DAILY Patient Comments: pt states dose is 150mg 05/25/24 Rx Instructions: CONFIRMED DOSE WITH [facility] 05/02/24 :120mg duloxetine 60 mg capsule,delayed release(DR/EC) 60 mg PO DAILY Patient Comments: Take 1 capsule by mouth once a day take 1 capsule by mouth daily naloxone 4 mg/actuation spray,non-aerosol 4 mg intranasal Q2M PRNQty: 2 12RF Rx Instructions: spray 1 dose into ONE nostril; alternate nostrils w each dose until help arrives lamotrigine [Lamictal XR] 50 mg tablet extended release 24hr 50 mg PO DAILY methylphenidate HCl [Ritalin LA] 40 mg capsule,ER biphasic 50-50 40 mg PO DAILY Patient Comments: Take 1 capsule by mouth once a day furosemide 20 mg tablet 20 mg PO DAILY PRN PRN (Reason: Edema) Patient Comments: 1 tablet by mouth once a day as needed TAKE ONE TABLET BY MOUTH EVERY DAY as needed for edema acetaminophen 500 mg tablet 1,000 mg PO Q6H PRNQty: 40 0RF ibuprofen 800 mg tablet 800 mg PO Q8H PRNQty: 15 0RF Discharge Instructions Instructions: Chest Pain, Adult ED, Minor Head Injury, Adult ED Additional Instructions: Tylenol and ibuprofen over the counter for pain; follow the directions on the bottle. Return to the emergency department for new or worsening symptoms including severe headache, vomiting, numbness, weakness, vision changes, difficulty breathing, feeling like you are going to pass out, or if you have any other concerns. HPI General Mode of arrival: EMS. Date/Time Provider Initiated Documentation: 05/25/24 02:13. Limitations to Documentation: no limitations. Information obtained by: patient and EMS. HPI Narrative: 38yo F with hx IVDU, cardiomyopathy, PTSD, anxiety, presenting via EMS for medical clearance. Was reportedly in altercation with the police. Patient reports head pain; states the hit the right side of her head on the pavement as well as her right shoulder.. No LOC, not on AC. No neck pain. No numbness, tingling, weakness, nausea, vomiting, vision changes, or vertigo. She also reports that her chest feels 'tight'; does not think she injured her chest, tates it has felt this way 'all day' and she thinks it may be related to anxiety. No shortness of breath. No pleurtic pain. +ETOH today. Otherwise in her usual state of health with no fevers, chills, rash, abdominal pain, LE pain, or other concerns. Related Data Home Medications ?Medication ?Instructions ?Recorded ?Confirmed gabapentin 800 mg tablet 1,600 mg PO BID 06/02/21 05/25/24 methadone 10 mg/mL oral concentrate 120 mg PO DAILY 06/02/21 05/25/24 furosemide 20 mg tablet 20 mg PO DAILY PRN PRN Edema 12/03/22 05/25/24 methylphenidate HCl 40 mg biphasic 40 mg PO DAILY 12/03/22 05/25/24 50-50 capsule,extended release (Ritalin LA) duloxetine 60 mg capsule,delayed 60 mg PO DAILY 12/22/22 05/25/24 release naloxone 4 mg/actuation nasal spray 4 mg intranasal Q2M PRN #2 ea 12/25/22 05/25/24 acetaminophen 500 mg tablet 1,000 mg (2 x 500 mg) PO Q6H PRN 08/28/23 05/25/24 #40 tabs ibuprofen 800 mg tablet 800 mg PO Q8H PRN #15 tabs 08/28/23 05/25/24 lamotrigine 50 mg tablet,extended 50 mg PO DAILY 05/02/24 05/25/24 release 24 hr (Lamictal XR) Previous Rx's ?Medication ?Instructions ?Recorded naloxone 4 mg/actuation nasal spray 4 mg intranasal Q2M PRN #2 ea 12/25/22 acetaminophen 500 mg tablet 1,000 mg (2 x 500 mg) PO Q6H PRN 08/28/23 #40 tabs ibuprofen 800 mg tablet 800 mg PO Q8H PRN #15 tabs 08/28/23 Allergies Allergy/AdvReac Type Severity Reaction Status Date / Time bupropion HCl (From AdvReac Intermediate Contraindic Verified 05/25/24 02:18 Wellbutrin SR) ated General Stated Complaint: GenMedical CELESTE: 3 Review of Systems Narrative: see HPI Exam Narrative Exam Narrative: GENERAL: Alert, restless SKIN: Warm and well perfused. HEAD: TTP of right forehead. Erythema to right cheek. No lacerations. No edema. Facial bones otherwise without tenderness. EYES: PERRL. No scleral icterus or conjunctival injection. Extraocular muscles intact without nystagmus or diplopia. No proptosis or enophthalmos. NOSE: No discharge, tenderness, laxity. No nasal septal hematoma. MOUTH: No malocclusion or trismus. Moist mucus membranes without blood. NECK: Trachea midline. No discolorations or edema. CV: Tachycardiac, regular, Normal s1 and s2. No murmurs, rubs, or gallops. PV: Radial pulses 2+ bilaterally and symmetric. 2+ capillary refill. No extremity edema. CHEST: No abrasions or ecchymosis. Chest symmetric with respirations. No chest wall tenderness. Lungs are clear to auscultation bilaterally. ABDOMEN: No ecchymosis or abrasions. Soft, nondistended, nontender. BACK: No abrasions, skin openings, or ecchymosis. Spine without bony tenderness, no step offs. PELVIC: Pelvis stable, nontender to lateral compression : Normal external genitalia. No ecchymosis or edema. MSK: Right BKA. Otherwise no gross deformities or discolorations or lesions. Tolerates full range of motion of extremities without tenderness. No snuffbox tenderness. Abrasions to bilateral knees. NEURO: ? GCS 15.? PERRL.? EOMI.? Fluent speech, no dysarthria. Motor- 5/5 strength symmetric bilateral upper and lower extremities Sensation- ?Intact to light touch and symmetric multiple dermatomes including upper and lower extremities Coordination- No dysmetria on finger to nose Reflexes- 2/4 achilles & patellar, no clonus Gait/station: ?Normal stance (with prosthetic on).? No truncal ataxia. Steady gait with equal normal steps CRANIAL NERVES: II: Pupils equal and reactive, III, IV, : EOM intact, no gaze preference or deviation, no nystagmus. V: normal sensation in V1, V2, and V3 segments bilaterally VII: no asymmetry, no nasolabial fold flattening VIII: normal hearing to speech IX, X: normal palatal elevation, no uvular deviation XI: 5/5 head turn and 5/5 shoulder shrug bilaterally XII: midline tongue protrusion Course Vital Signs Vital signs: Vital Signs Temperature 37.7 C H 05/25/24 02:02 Pulse 123 H 05/25/24 02:02 Respiratory Rate 18 05/25/24 02:02 Blood Pressure 148/86 H 05/25/24 02:02 Pulse Oximetry 95 05/25/24 02:02 Temperature 37.7 C H 05/25/24 02:09 Pulse 123 H 05/25/24 02:09 Respiratory Rate 22 05/25/24 02:09 Respiratory Effort Normal 05/25/24 02:09 Respiratory Depth Normal 05/25/24 02:09 Respiratory Pattern Normal 05/25/24 02:09 Blood Pressure 148/86 H 05/25/24 02:09 Blood Pressure Position Supine 05/25/24 02:09 Pulse Oximetry 95 05/25/24 02:09 Oxygen Delivery Method Room Air 05/25/24 02:09 Oxygen Flow Rate 0 05/25/24 02:02 Pain Level 8 05/25/24 02:30 Lab/Test Results Lab/Test Results: Laboratory Tests Range/Units 05/25/24 02:24 Beta HCG, Quant Cancelled Medical Decision Making 38yo F with hx IVDU, cardiomyopathy, PTSD, anxiety, [facility]; was reportedly in altercation with the police. Pt states she hit the right side of her head and her right shoulder on the ground, no LOC. Tachycardiac on arrival, vital signs otherwise reassuring. Tearful and restless on exam. Erythema to right cheek and right forehead TTP, also has bilateral knee abrasions. No other significant traumatic findings. Normal neurologic exam. Low suspicion for significant traumatic injury including intracranial injury, however given pt clinically intoxicated will get CT head and plain films of chest and shoulder. Pt attributes her chest tightness to anxiety and I suspect she is correct; will evaluate for life threatening causes with EKG, labs including troponin, and CXR. I suspect her tachycardia is most likely due to her current anxiety and mild agitation. No shortness of breath, pleurtic pain, or hypoxia to suggest pulmonary embolism; very low suspicion for this and weighing risk of radiation will not get dimer or CT imaging. Not concerned for sepsis. -EKG sinus tachcyardia, no ST segment or T wave abnormalities to suggest occlusive WI. -Tylenol for headache, ativan for anxiety -Labs reviewed as below, CBC reassuring with Hg at baseline (mild anemia), CMP with no actionable abnormalities, Mg normal, troponin normal with low-risk HEART 1 for RF score (would not further pursue ACS, trend troponin, etc ), upreg neg. Initially ordered ETOH level however delay in drawing labs; by time of lab drawn pt clinically sober and so dced order. -CT independently reviewed; no mass or ICH on my view, radiology read below with no acute findings -CXR independently reviewed; no focal pneumonia or pneumothorax on my view, radiology read below with no acute findings. -shoulder XR independently reviewed; no displaced fracture on my view, radiology read below with no acute findings. On reassessment patient calm with reassuring vital signs, normal HR. Continued right shoulder soreness; ordered 15mg IM toradol. Discharged; discharge instructions and return precautions were reviewed with patient who verbalized understanding. All questions were answered and she is in full agreement with the plan. Imaging Data Radiologic Study: Imaging: X-Ray and CT Scan Radiologist's impression: shoulder XR: IMPRESSION: No fracture seen CXR:IMPRESSION: No acute findings to explain reported symptoms. CT head: IMPRESSION: No acute intracranial abnormality appreciated. Quality:SDOH Health Related Social Needs: No Data to Display PFSH All Active Problems (Updated 05/25/24 @ 05:38 by Yvette Yeung MD) Acute shoulder pain (Acute) Chest pain (Acute) Head injury (Acute) Pneumonia (Acute) Facial trauma (Acute) Fever (Acute) COVID-19 (Acute) Right maxillary sinusitis (Acute) No-show for appointment (Acute) Pain (Acute) Effusion of knee joint, left (Acute) Fall (Acute) Cellulitis of left foot (Acute) Postop check (Acute) Wound infection (Acute) Wound dehiscence (Acute) Cardiac asystole (Acute) Hepatitis C (Chronic) Mild tricuspid regurgitation (Acute) Anemia (Chronic) Localized swelling of left lower extremity (Acute) Cellulitis (Acute) Smoker (Acute) Viral illness (Acute) History of prior with IUGR (Acute 01/11/15) History of kidney injury (Acute 01/17/16) Acute January, History of drug abuse (Acute 01/17/16) In IP treatment at [facility], no longer on methadone as of 01/17/16. Family court is close to resolved - will end . She is expecting 1st daughter to come home. Depression (Acute 01/11/15) Chronic hepatitis C without hepatic coma (Chronic 01/11/15) Cardiomyopathy (Chronic 01/22/16) Anemia of chronic disease (Acute 01/17/16) ADHD, hyperactive-impulsive type (Chronic 05/14/16) Insomnia (Acute) DVT prophylaxis (Acute) Fever (Acute) Prepatellar bursitis of right knee (Acute) Anxiety (Chronic) Anemia (Chronic) Opioid dependence (Chronic) Mitral regurgitation (Chronic) Edema (Acute) Medical History Lack of intravenous access IV drug user Left posterior fascicular block (LPFB) RBBB Fungemia Closed head injury Cardiac arrest with successful resuscitation Pulmonary nodules Anemia Scalded skin syndrome Alcohol abuse Hx of cocaine abuse Personality disorder Herpes, vulvar PTSD (post-traumatic stress disorder) ADHD Subacute endocarditis (01/22/16) MSSA endocarditis January, HSV infection Hx of infant who one week after . ? HSV or H1N1 infection. Pt has been on prophylaxis with pregnancies. Depression difficulty bonding with 2nd child. child removed from her custody. was on Wellbutrin but had sz and not on meds at this time. has appt with counselor 03/2015 Surgical History section (11/24/12) PCD @ 34w. [facility]. [facility] [id number]. 03/26/15 RCD. Pt arrived in labor and declined SUN. F. Jessica. Amputation 12/23/16;[facility]; RIGHT BELOW THE KNEE Family History Mother No problems noted. Father No problems noted. Brother No problems noted. Grandfather No problems noted. Grandfather No problems noted. Grandmother No problems noted. Grandmother No problems noted. Son No problems noted. Son No problems noted. Daughter No problems noted. Daughter No problems noted. Social History Smoking/Tobacco Use Status: Current every day Tobacco Type: cigarettes Smoking risk assessment performed?: Yes Alcohol Intake: current Alcohol Intake frequency: a few times a month Alcohol type: beer Drug use: Occasionally Substance use type: crack/cocaine, heroin, amphetamines, opiates, IV drugs, methamphetamine and unknown Details: last used fentanyl tonight prior to coming in Housing: house Do you feel safe at home: Yes Do you feel safe in your relationship?: Yes Additional Social history: pt states she is on methadone History History 4 Para 4 Hx # Term Pregnancies Multiple births Hx # Pregnancies Ectopic pregnancies AB induced Hx Number of Living Children 3 AB spontaneous Past Pregnancies Del. Date GA/Weeks # Preg Succ Route Wgt Sex Labor Lgth Anesthesia Location Prov Complic 12/28/20 25 Delivery Date: 12/28/20 Last Updated by: Roxanna Rocha LPN Patient transferred OB care to [facility] PAW Have you Been Recently Intoxicated or Drunk Within the Last 30 days?: Yes Have you Ever Experienced Previous Episodes of Alcohol Withdrawal?: Yes Have you ever Experienced Withdrawal Seizures?: Yes Have you ever Experienced Delirium Tremens(DT)s?: Yes Have you ever undergone Alcohol Rehabilitation Treatment (i.e, inpt ot outpatient treatment programs)?: Yes Have you ever Experienced Blackouts?: Yes Have you ever Combined Alcohol with other Downers within the last 90 days?: Yes Have you ever Combined Alcohol with any other Substance of Abuse during the last 90 days?: Yes Positive Blood Alcohol level on Presentation? [PCS.BAL]: Yes Evidence of Increased Autonomic Activity (i.e. HR>120, tremor, sweating, agitation, nausea)?: Yes Result: 10
--- NOTE | 2024-05-25 04:48 | DI.VRAD_ITS ---
PROCEDURE INFORMATION: Exam: CT Head Without Contrast Exam date and time: 05/25/2024 2:47 AM Age: 38 years old Clinical indication: Injury or trauma; Blunt trauma (contusions or hematomas); Consciousness not specified; Injury date: 05/25/24; Injury details: Fall, head injury TECHNIQUE: Imaging protocol: Computed tomography of the head without contrast. Radiation optimization: All CT scans at this facility use at least one of these dose optimization techniques: automated exposure control; mA and/or kV adjustment per patient size (includes targeted exams where dose is matched to clinical indication); or iterative reconstruction. COMPARISON: CT HEAD WO 05/02/2024 1:52 PM FINDINGS: Brain: No intracranial hemorrhage appreciated. No significant focal mass effect or significant midline shift. Cerebral ventricles: No disproportionate ventriculomegaly. Paranasal sinuses: No air-fluid levels seen. Mastoid air cells: No mastoid effusion. Bones: No acute cranial vault fracture seen. Soft tissues: No acute findings. IMPRESSION: No acute intracranial abnormality appreciated. Dictated and Authenticated by: Kimmy Contreras MD. Orderin Gamal Crawford MD
--- NOTE | 2024-05-25 04:49 | DI.VRAD_ITS ---
PROCEDURE INFORMATION: Exam: XR Right Shoulder Exam date and time: 05/25/2024 3:11 AM Age: 38 years old Clinical indication: Right; R shoulder pain S/P fall TECHNIQUE: Imaging protocol: Radiologic exam of the right shoulder. Views: 2 or more views. COMPARISON: CR XR SHOULDER RT COMPLETE 2+V 11/28/2021 6:15 PM FINDINGS: Bones/joints: No fracture or dislocation appreciated. Soft tissues: No focal acute abnormality. IMPRESSION: No fracture seen. Dictated and Authenticated by: Kimmy Contreras MD. Orderin Gamal Crawford MD
--- NOTE | 2024-05-25 04:51 | DI.VRAD_ITS ---
PROCEDURE INFORMATION: Exam: XR Chest Exam date and time: 05/25/2024 3:08 AM Age: 38 years old Clinical indication: Right-sided; Chest pain TECHNIQUE: Imaging protocol: Radiologic exam of the chest. Views: 2 views. COMPARISON: CR XR CHEST 1V IN DI DEPT 05/02/2024 1:56 PM FINDINGS: Lungs: Ill-defined left apical opacity, unchanged. Pleural spaces: Minimal blunting of the right costophrenic angle, unchanged. Heart/Mediastinum: No cardiomegaly. Bones/joints: No acute abnormality. IMPRESSION: No acute findings to explain reported symptoms. Dictated and Authenticated by: Kimmy Contreras MD. Orderin Gamal Crawford MD
[2024-05-25 05:09] LABS: Abs Immature Grans 0.03 10^3/uL (0.0-0.06); Absolute Basophil Count 0.03 10^3/uL (0.0-0.2); Absolute Eosinophil Count 0.02 10^3/uL (0.0-0.7); Absolute Lymphocyte Count 1.33 10^3/uL (1.2-3.4); Absolute Neutrophil Count 5.05 10^3/uL (1.2-6.7); Basophils % 0.4 %; Eosinophils % 0.3 %; HCT 33.1 % (36.0-46.0); HGB 10.8 g/dL (11.2-15.7); Immature Grans % 0.4 %; Lymphocytes % 19.4 %; MCH 29.2 pg (27.0-33.0); MCHC 32.6 % (32.0-36.0); MCV 90 fL (80-95); MPV 8.9 fL (8.0-11.0); Monocytes % 5.8 %; Neutrophils % 73.7 %; Platelet Count 185 10^3/uL (130-400); RDW 14.3 % (11.7-14.6); RDW-SD 46.1 fL; WBC 6.86 10^3/uL (4.4-10.8)
[2024-05-25 05:26] LABS: ALT 38 U/L (14-59); AST 38 U/L (15-37); Albumin 3.5 g/dL (3.4-5.0); Alkaline Phosphatase 125 U/L (46-116); Anion Gap 11.1 mmol/L (3-11); BUN 15 mg/dL (7-18); Bilirubin, Total 0.4 mg/dL (0.2-1.0); CO2 23.9 mmol/L (21.0-32.0); CREATININE 0.9 mg/dL (0.55-1.02); Calcium 8.4 mg/dL (8.5-10.1); Chloride 102 mmol/L (98-107); Glucose 94 mg/dL (74-106); Magnesium 1.9 mg/dL (1.8-2.4); Potassium 4.1 mmol/L (3.5-5.1); Sodium 137 mmol/L (136-145); Total Protein 7.2 g/dL (6.4-8.2); Troponin I 18 ng/L (<or=51)
[2024-05-25 05:31] VITALS: BP 115/55; PULSE 78; TEMP 36.4; O2SAT 93
[2024-05-25] MEDS: Ketorolac 15 MG/ML VIAL IM (05:42)
[2024-05-25 05:51] VITALS: BP 115/55; PULSE 78; RESP 22; TEMP 36.4; O2SAT 93
== END 2024-05-25 05:51 ==
PROVIDERS: Emergency Provider Student in an Organized Health Care Education/Training Program; PCP Physician Assistant
DX: M25.511 Pain in right shoulder; S80.211A Abrasion, right knee, initial encounter; S80.212A Abrasion, left knee, initial encounter; R07.9 Chest pain, unspecified; R51.9 Headache, unspecified; Y35.93XA Legal intervention, means unspecified, suspect injured, initial encounter; F41.9 Anxiety disorder, unspecified; F19.10 Other psychoactive substance abuse, uncomplicated; W19.XXXA Unspecified fall, initial encounter
CPT/HCPCS: 36415; 80053; 81025; 93005; 96374; 99285; 70450; 71046; 73030; 80320; 83735; 84484; 84702; 85025; 93010; J1885

== ENCOUNTER 2024-09-07 05:51 | Emergency (ER) | payer MEDICAID, SELFPAY ==
[2024-09-07 05:53] VITALS: BP 109/73; PULSE 69; RESP 18; TEMP 36.6; O2SAT 100
--- NOTE | 2024-09-07 05:53 | W.ED.GENAD ---
Discharge Plan Disposition Patient Disposition: Home Condition: Good Discharge Details Clinical Impression: Contusion of left lower leg, initial encounter Primary Care Provider: Glenn Tinajero ED Provider: Mohsen Macedo Meds and New Rx's Prescriptions: Continued gabapentin 800 mg tablet 1,600 mg PO BID methadone 10 mg/mL Concentrate 120 mg PO DAILY Patient Comments: pt states dose is 150mg 05/25/24 Rx Instructions: CONFIRMED DOSE WITH [facility] 05/02/24 :120mg duloxetine 60 mg capsule,delayed release(DR/EC) 60 mg PO DAILY Patient Comments: Take 1 capsule by mouth once a day take 1 capsule by mouth daily naloxone 4 mg/actuation spray,non-aerosol 4 mg intranasal Q2M PRNQty: 2 12RF Rx Instructions: spray 1 dose into ONE nostril; alternate nostrils w each dose until help arrives lamotrigine [Lamictal XR] 50 mg tablet extended release 24hr 50 mg PO DAILY methylphenidate HCl [Ritalin LA] 40 mg capsule,ER biphasic 50-50 40 mg PO DAILY Patient Comments: Take 1 capsule by mouth once a day furosemide 20 mg tablet 20 mg PO DAILY PRN PRN (Reason: Edema) Patient Comments: 1 tablet by mouth once a day as needed TAKE ONE TABLET BY MOUTH EVERY DAY as needed for edema acetaminophen 500 mg tablet 1,000 mg PO Q6H PRNQty: 40 0RF ibuprofen 800 mg tablet 800 mg PO Q8H PRNQty: 15 0RF Discharge Instructions Instructions: Minor Contusion ED Additional Instructions: You were seen for pain in the lower leg after a fall overnight. X-rays do not show evidence of a fracture. You should alternate acetaminophen with ibuprofen and use ice on and off for the next few days. We are unable to supply you with your methadone as you are not being admitted. Please follow-up with [facility] for your methadone maintenance. Follow-up with primary care next week if you are not having improvement in your leg pain. Return to ED for any numbness or weakness involving the left leg, other concerns. Referrals: Glenn Tinajero [Primary Care Provider, Medicine] [facility] General Mode of arrival: EMS. Date/Time Provider Initiated Documentation: 09/07/24 05:52. Limitations to Documentation: no limitations. Information obtained by: patient, EMS and RN notes reviewed. HPI Narrative: Patient presents to ED from home by ambulance with complaint of left lower leg pain. Patient apparently fell last night. She denies hitting her head or loss of consciousness. She is having difficulty bearing weight and has pain just below the left knee. It initially seems a little sleepy and dozing off while answering questions for nurse. Subsequently, wide-awake and sitting up and requesting that we dose her with her methadone. Related Data Home Medications ?Medication ?Instructions ?Recorded ?Confirmed gabapentin 800 mg tablet 1,600 mg PO BID 06/02/21 09/07/24 methadone 10 mg/mL oral concentrate 120 mg PO DAILY 06/02/21 09/07/24 furosemide 20 mg tablet 20 mg PO DAILY PRN PRN Edema 12/03/22 09/07/24 methylphenidate HCl 40 mg biphasic 40 mg PO DAILY 12/03/22 09/07/24 50-50 capsule,extended release (Ritalin LA) duloxetine 60 mg capsule,delayed 60 mg PO DAILY 12/22/22 09/07/24 release naloxone 4 mg/actuation nasal spray 4 mg intranasal Q2M PRN #2 ea 12/25/22 09/07/24 acetaminophen 500 mg tablet 1,000 mg (2 x 500 mg) PO Q6H PRN 08/28/23 09/07/24 #40 tabs ibuprofen 800 mg tablet 800 mg PO Q8H PRN #15 tabs 08/28/23 09/07/24 lamotrigine 50 mg tablet,extended 50 mg PO DAILY 05/02/24 09/07/24 release 24 hr (Lamictal XR) Previous Rx's ?Medication ?Instructions ?Recorded naloxone 4 mg/actuation nasal spray 4 mg intranasal Q2M PRN #2 ea 12/25/22 acetaminophen 500 mg tablet 1,000 mg (2 x 500 mg) PO Q6H PRN 08/28/23 #40 tabs ibuprofen 800 mg tablet 800 mg PO Q8H PRN #15 tabs 08/28/23 Allergies Allergy/AdvReac Type Severity Reaction Status Date / Time bupropion HCl (From AdvReac Intermediate Contraindic Verified 09/07/24 05:59 Wellbutrin SR) ated General CELESTE: 3 Exam Narrative Exam Narrative: Const: WDWN female in NAD. VS per triage. HEENT: NC/AT. Normal facial exam. Neck: Supple. Trachea midline. Lungs: Normal respiratory effort. Neuro: A+O x 3. Normal speech, mentation. Cranial nerves II - XII grossly intact. No gross motor or sensory deficit. Ext: R BKA. Left leg without deformity or bruising, tender over fibula head. NVI. Normal ROM at hip and knee. Medical Decision Making Patient presents to ED by ambulance complaint of left lower extremity pain after a fall. Would also like us to dose her with her methadone. I informed her that unless she is admitted to the hospital we do not provide methadone. She will be able to go to the clinic after discharge if there is no evidence of fracture. Patient is very manipulative and reports that she will have to kill herself if we do not give her her methadone. States that she cannot go to the clinic to get her methadone because she has missed 5 days of dosing. Informed her that that is still not an indication for us to provide her methadone. Will obtain x-ray as planned. X-ray of the tib-fib on the left is negative per my read. Specifically, there is no fracture involving the fibular head. Patient will be given Tylenol. She will be referred to the [facility] clinic for her methadone. Recommend ice on and off for the next few days to help with contusion. Follow-up with primary care if not improving. Return precautions provided. Imaging Data Radiologic Study: Attestation: I personally reviewed and interpreted this imaging study as follows: Imaging: X-Ray My impression: see [facility] All Active Problems (Updated 09/07/24 @ 06:57 by Mohsen Macedo MD) Contusion of left lower leg, initial encounter (Acute) Mild tricuspid regurgitation (Acute) Smoker (Acute) History of prior with IUGR (Acute 01/11/15) History of kidney injury (Acute 01/17/16) Acute January, History of drug abuse (Acute 01/17/16) In IP treatment at [place], no longer on methadone as of 01/17/16. Family court is close to resolved - will end . She is expecting 1st daughter to come home. Insomnia (Acute) Anxiety (Chronic) Anemia (Chronic) Opioid dependence (Chronic) Mitral regurgitation (Chronic) Medical History Cardiomyopathy (01/22/16) Hepatitis C IVDU (intravenous drug user) Methadone maintenance therapy patient Exhausted vascular access Left posterior fascicular block (LPFB) RBBB Closed head injury Cardiac arrest with successful resuscitation Pulmonary nodules Anemia Alcohol abuse Hx of cocaine abuse Personality disorder Herpes, vulvar PTSD (post-traumatic stress disorder) ADHD Subacute endocarditis (01/22/16) MSSA endocarditis January, HSV infection Hx of who one week after . ? HSV or H1N1 infection. Pt has been on prophylaxis with pregnancies. Depression difficulty bonding with 2nd child. child removed from her custody. was on Wellbutrin but had sz and not on meds at this time. has appt with counselor 03/2015 Surgical History section (11/24/12) PCD @ 34w. [address] [facility]. [id number]. [facility]. 03/26/15 RCD. Pt arrived in labor and declined SUN. [facility]. Amputation 12/23/16;[facility]; RIGHT BELOW THE KNEE Family History Mother No problems noted. Father No problems noted. Brother No problems noted. Grandfather No problems noted. Grandfather No problems noted. Grandmother No problems noted. Grandmother No problems noted. Son No problems noted. Son No problems noted. Daughter No problems noted. Daughter No problems noted. Social History Smoking/Tobacco Use Status: Current every day Tobacco Type: cigarettes Smoking risk assessment performed?: Yes Alcohol Intake: current Alcohol Intake frequency: a few times a month Alcohol type: beer Drug use: Current Sobriety Substance use type: former substance user, crack/cocaine, heroin, amphetamines, opiates, IV drugs, methamphetamine and unknown Details: states last use was 3 months ago as of 09/07/24 Housing: house Do you feel safe at home: Yes Do you feel safe in your relationship?: Yes Additional Social history: pt states she is on methadone History History 4 Para 4 Hx # Term Pregnancies Multiple births Hx # Pregnancies Ectopic pregnancies AB induced Hx Number of Living Children 3 AB spontaneous Past Pregnancies Del. Date GA/Weeks # Preg Succ Route Wgt Sex Labor Lgth Anesthesia Location Prov Complic 10/22/21 25 Delivery Date: 12/28/20 Last Updated by: Roxanna Rocha LPN Patient transferred OB care to [facility]
--- NOTE | 2024-09-07 06:00 | DI.RAD_ITS ---
Exam(s) XR TIB/FIB LT EXAM: XR TIB/FIB LT CLINICAL HISTORY: fall/trauma. TECHNIQUE: 2D digital imaging was performed. Two views. COMPARISON: CR,XR XR TIB/FIB RT from 11/27/2021 FINDINGS: BONES: No acute fracture is present. No bony destructive lesion is seen. Visualized portion of knee and ankle joints are unremarkable. SOFT TISSUE: Mild lower leg and ankle edema. IMPRESSION: Soft tissue swelling. No evidence of fracture. DATA REPOSITORY: RADIATION DOSE DELIVERED:
--- NOTE | 2024-09-07 07:09 | DI.VRAD_ITS ---
PROCEDURE INFORMATION: Exam: XR Left Tibia and Fibula Exam date and time: 09/07/2024 6:31 AM Age: 39 years old Clinical indication: Injury or trauma; Blunt trauma; Lower leg; Left; Fall/trauma TECHNIQUE: Imaging protocol: Radiologic exam of the left tibia and fibula. Views: 2 views. COMPARISON: MR LOWER JOINT LT WO 08/26/2023 11:27 AM FINDINGS: Bones/joints: Bone mineralization is age-appropriate. There is no evidence of fracture. No evidence of dislocation. The joint spaces are adequately preserved; no significant degenerative narrowing and no bony erosion seen. Soft tissues: No radiopaque foreign body present. There is soft tissue swelling present. IMPRESSION: 1. No acute osseous abnormality. 2. There is soft tissue swelling present. Dictated and Authenticated by: Arnold Jeff MD. Orderin Remington Connolly MD
[2024-09-07 07:30] VITALS: BP 130/83; PULSE 75; RESP 18; O2SAT 96
== END 2024-09-07 07:21 | disposition home or self-care (01) ==
PROVIDERS: Emergency Provider Emergency Medicine; PCP Physician Assistant
DX: S80.12XA Contusion of left lower leg, initial encounter (principal); F17.210 Nicotine dependence, cigarettes, uncomplicated; F11.20 Opioid dependence, uncomplicated
CPT/HCPCS: 99283; 73590

== ENCOUNTER 2024-09-07 10:49 | Inpatient (IN) | payer MEDICAID, SELFPAY ==
[2024-09-07] VITALS (45 sets, daily range): BP systolic 98–128; BP diastolic 62–86; PULSE 50–100; RESP 10–39; TEMP 36.1–37; O2SAT 94–100
--- NOTE | 2024-09-07 11:16 | W.ED.GENAD ---
Discharge Plan Disposition Patient Disposition: Admit to [facility] Condition: Poor Discharge Details Clinical Impression: Opioid dependence, Alcohol abuse, Withdrawal complaint Primary Care Provider: Glenn Tinajero ED Provider: Joyce Cornell Home Meds and New Rx's Prescriptions: No Action gabapentin 800 mg tablet 1,600 mg PO BID methadone 10 mg/mL Concentrate 120 mg PO DAILY Patient Comments: pt states last dose 4-5 days ago, unable to say where and when and how much Rx Instructions: CONFIRMED DOSE WITH LORIN [facility] 05/02/24 :120mg duloxetine 60 mg capsule,delayed release(DR/EC) 60 mg PO DAILY Patient Comments: Take 1 capsule by mouth once a day take 1 capsule by mouth daily naloxone 4 mg/actuation spray,non-aerosol 4 mg intranasal Q2M PRNQty: 2 12RF Rx Instructions: spray 1 dose into ONE nostril; alternate nostrils w each dose until help arrives lamotrigine [Lamictal XR] 50 mg tablet extended release 24hr 50 mg PO DAILY methylphenidate HCl [Ritalin LA] 40 mg capsule,ER biphasic 50-50 40 mg PO DAILY Patient Comments: Take 1 capsule by mouth once a day furosemide 20 mg tablet 20 mg PO DAILY PRN PRN (Reason: Edema) Patient Comments: 1 tablet by mouth once a day as needed TAKE ONE TABLET BY MOUTH EVERY DAY as needed for edema acetaminophen 500 mg tablet 1,000 mg PO Q6H PRNQty: 40 0RF ibuprofen 800 mg tablet 800 mg PO Q8H PRNQty: 15 0RF HPI General Date/Time Provider Initiated Documentation: 09/07/24 11:16. Limitations to Documentation: altered mental status (intoxicated appearing). Information obtained by: patient, RN/MD (contact by LORIN clinician prior to her arrival), RN notes reviewed and old records reviewed. History of Present Illness 39 year old F presents to the emergency department with the chief complaint of ETOH and narcotic withdrawal, described as moderate and similar to prior episodes, Patient started experiencing this minute(s) and it has been constant. No relieving factors improve symptom(s), No exacerbating factors reported . Patient notes denies chest pain, headaches, loss of appetite (requesting food), nausea/vomiting and shortness of breath. Patient did receive the following treatments prior to arrival, none Related Data Home Medications ?Medication ?Instructions ?Recorded ?Confirmed gabapentin 800 mg tablet 1,600 mg PO BID 06/02/21 09/07/24 methadone 10 mg/mL oral concentrate 120 mg PO DAILY 06/02/21 09/07/24 furosemide 20 mg tablet 20 mg PO DAILY PRN PRN Edema 12/03/22 09/07/24 methylphenidate HCl 40 mg biphasic 40 mg PO DAILY 12/03/22 09/07/24 50-50 capsule,extended release (Ritalin LA) duloxetine 60 mg capsule,delayed 60 mg PO DAILY 12/22/22 09/07/24 release naloxone 4 mg/actuation nasal spray 4 mg intranasal Q2M PRN #2 ea 12/25/22 09/07/24 acetaminophen 500 mg tablet 1,000 mg (2 x 500 mg) PO Q6H PRN 08/28/23 09/07/24 #40 tabs ibuprofen 800 mg tablet 800 mg PO Q8H PRN #15 tabs 08/28/23 09/07/24 lamotrigine 50 mg tablet,extended 50 mg PO DAILY 05/02/24 09/07/24 release 24 hr (Lamictal XR) Previous Rx's ?Medication ?Instructions ?Recorded naloxone 4 mg/actuation nasal spray 4 mg intranasal Q2M PRN #2 ea 12/25/22 acetaminophen 500 mg tablet 1,000 mg (2 x 500 mg) PO Q6H PRN 08/28/23 #40 tabs ibuprofen 800 mg tablet 800 mg PO Q8H PRN #15 tabs 08/28/23 Allergies Allergy/AdvReac Type Severity Reaction Status Date / Time bupropion HCl (From AdvReac Intermediate Contraindic Verified 09/07/24 05:59 Wellbutrin SR) ated General Stated Complaint: DrugWithdr/MAT CELESTE: 3 Review of Systems Constitutional Comments: Limited secondary to acute intoxication. Few questions answered are noted in HPI Exam Const General: comfortable (sleeping, needs to be aroused with physical stimuli), no acute distress, well developed, disheveled and intoxicated appearing Nutritional Appearance: average body habitus Orientation: alert and awake Eyes General: appearance normal, both eyes and all related structures Resp Effort & Inspection: normal respiratory effort and no respiratory distress Auscultation: clear to auscultation bilaterally, no rales, no rhonchi and no wheezes Cardio Rate: regular rate Rhythm: regular rhythm Heart Sounds: S1 normal and S2 normal Skin General skin exam: no rashes or lesions noted Neuro General: patient alert and patient awake Cognition: normal cognition Speech: speech normal Extrem General: normal to inspection (BKA on right, able to hop on left without pain) Psych Appearance: disheveled Mental Status: other (appears intoxicated) Speech and Movement: slurred speech Mood: labile mood and other (appears intoxicated) Insight: poor Judgment: poor Course Vital Signs Vital signs: Vital Signs Temperature 36.1 C L 09/07/24 11:01 Pulse 89 09/07/24 11:01 Respiratory Rate 13 09/07/24 11:01 Blood Pressure 98/62 L 09/07/24 11:01 Pulse Oximetry 100 09/07/24 11:01 Temperature 36.1 C L 09/07/24 11:01 Temperature Source Tympanic 09/07/24 11:01 Pulse 89 09/07/24 11:01 Respiratory Rate 13 09/07/24 11:01 Blood Pressure 98/62 L 09/07/24 11:01 Blood Pressure Position Supine 09/07/24 11:01 Pulse Oximetry 100 09/07/24 11:01 Oxygen Delivery Method Room Air 09/07/24 11:01 Oxygen Flow Rate 0 09/07/24 11:01 Medical Decision Making Patient is a 39-year-old female past medical history significant for cardiomyopathy, hepatitis C, IV drug use, methadone dependence, right bundle branch block, pulmonary nodules, alcohol abuse, PTSD, ADHD, depression, endocarditis, presenting today at the recommendation of the [facility] for Detox. Patient was seen here earlier this morning, please see prior note, at that time she was here for leg injury. Had requested to be discharged for methadone dosing. Went to the local clinic, please see my addendum to this morning's initial notes, where no methadone was given as the patient appeared acutely intoxicated and did have an elevated alcohol level. They advised that methadone with alcohol on board is contraindicated. They advised the patient go to the emergency department to discuss detox. Patient's father dropped her off here, he does not want to be involved with her continued management. On my initial exam, patient sleeping. She is hemodynamically stable and is not having any respiratory distress. When I try to wake her, she just continues to pull away and will not answer any of my questions. This sounds to be quite a different presentation than what my colleague witnessed in her this morning. Likely, patient had alcohol or drug exposure between that and now. I agree with the clinics clinician, adding methadone with her current inebriated state would be an appropriate. However, I am unable to discuss with the patient if she would like to undergo detox, I do not believe that she would be able to engage with a sales coach. In the event that the patient may have taken more than expected, we will obtain blood work. As she has been accompanied by her father or in the clinic since leaving here, been brought back by her father, no reason to think that she had any trauma between this morning and now. Her if usual discussed with me as well as her fatigue is more likely to be more intoxication. She is on monitor, will continue to reevaluate. Nursing staff and myself were reassessing the patient. We did temporarily put her on oxygen but this seemed to be more associated with poor pleth, after changing the O2 probe, we are able to get a better reading and oxygen no longer needed. Patient did also need to urinate and was able to jump up out of bed. She has had below the knee amp on her right was able to use the bedside commode. There is now joking with staff, asking for family. Labs are reassuring. Patient is positive for methadone and cocaine. Patient is alcohol back at 187. She does report that she has been drinking a large amount of vodka daily, was drinking a large amount this morning. Is now feeling anxious, tremulous and having symptoms of withdrawal. Will give Ativan. Patient does report that she has had seizures associated with her drawl historically and she is interested in going back to rehab. Patient seen by sales coach, she had been waffling between inpatient and outpatient treatment, now wants inpatient. She is back to more sedated. UInclear if cocaine washout, ETOH vs. other. Will begin on phenobarbital. Given CIWA score, starting at slightly lowered dose, the 6mg/kg instead of 10. Constulted with hospitalist who agrees to admission. Patient broke the IV line while initial dosing of phenobarbital was being infused. This patient continues to fluctuate between being quite sedated to being very anxious and appearing to have withdrawals, a decrease dosing does not seem to be completely inappropriate at this point as we can always add more. However, patient is now reporting withdrawals more from narcotics, consult with the hospitalist and will give clonidine. Patient admitted in stable condition to the ICU for alcohol and narcotic withdrawal. No acute trauma, no acute evidence of infection noted. Patient agreeable to admission. [facility] All Active Problems (Updated 09/07/24 @ 16:39 by CHARLIE Milton) Withdrawal complaint (Acute) Alcohol abuse (Chronic) Contusion of left lower leg, initial encounter (Acute) Mild tricuspid regurgitation (Acute) Smoker (Acute) History of prior with IUGR (Acute 01/11/15) History of kidney injury (Acute 01/17/16) Acute January, History of drug abuse (Acute 01/17/16) In IP treatment at [place], no longer on methadone as of 01/17/16. Family court is close to resolved - will end . She is expecting 1st daughter to come home. Insomnia (Acute) Anxiety (Chronic) Anemia (Chronic) Opioid dependence (Chronic) Mitral regurgitation (Chronic) Medical History Cardiomyopathy (01/22/16) Hepatitis C IVDU (intravenous drug user) Methadone maintenance therapy patient Exhausted vascular access Left posterior fascicular block (LPFB) RBBB Closed head injury Cardiac arrest with successful resuscitation Pulmonary nodules Anemia Alcohol abuse Hx of cocaine abuse Personality disorder Herpes, vulvar PTSD (post-traumatic stress disorder) ADHD Subacute endocarditis (01/22/16) MSSA endocarditis January, HSV infection Hx of who one week after . ? HSV or H1N1 infection. Pt has been on prophylaxis with pregnancies. Depression difficulty bonding with 2nd child. child removed from her custody. was on Wellbutrin but had sz and not on meds at this time. has appt with counselor 03/2015 Surgical History section (11/24/12) PCD @ 35w. IUGR. [facility]. [id number]. [facility] 03/26/[place] RCD. Pt arrived in labor and declined SUN. [facility]. Amputation 12/23/16;[facility]; RIGHT BELOW THE KNEE Family History Mother No problems noted. Father No problems noted. Brother No problems noted. Grandfather No problems noted. Grandfather No problems noted. Grandmother No problems noted. Grandmother No problems noted. Son No problems noted. Son No problems noted. Daughter No problems noted. Daughter No problems noted. Social History Smoking/Tobacco Use Status: Current every day Tobacco Type: cigarettes Smoking risk assessment performed?: Yes Alcohol Intake: current Alcohol Intake frequency: a few times a month Alcohol type: beer Drug use: Occasionally Substance use type: former substance user, crack/cocaine, heroin, amphetamines, opiates, IV drugs, methamphetamine and unknown Details: states last use was 3 months ago as of 09/07/24 Housing: house Do you feel safe at home: Yes Do you feel safe in your relationship?: Yes Additional Social history: pt states she is on methadone, states lives with father History History 4 Para 4 Hx # Term Pregnancies Multiple births Hx # Pregnancies Ectopic pregnancies AB induced Hx Number of Living Children 3 AB spontaneous Past Pregnancies Del. Date GA/Weeks # Preg Succ Route Wgt Sex Labor Lgth Anesthesia Location Prov Complic 12/28/20 25 Delivery Date: 12/28/20 Last Updated by: Roxanna Rocha LPN Patient [facility]
[2024-09-07 12:01] LABS: Abs Immature Grans 0.02 10^3/uL (0.0-0.06); HCT 37.6 % (36.0-46.0); HGB 12.5 g/dL (11.2-15.7); Immature Grans % 0.3 %; MCH 29.2 pg (27.0-33.0); MCHC 33.2 % (32.0-36.0); MCV 88 fL (80-95); MPV 9.3 fL (8.0-11.0); Platelet Count 263 10^3/uL (130-400); RBC 4.28 10^6/uL (3.93-5.22); RDW 13.4 % (11.7-14.6); RDW-SD 43.5 fL; WBC 7.54 10^3/uL (4.4-10.8)
[2024-09-07] MEDS: Normal Saline 1,000 ML 1000 ML IV (12:09)
[2024-09-07 12:10] LABS: Cannabinoids THC Negative (Negative); METHADONE URINE SCREEN Positive (Negative)
[2024-09-07 12:25] LABS: ALT 51 U/L (14-59); AST 30 U/L (15-37); Albumin 4.3 g/dL (3.4-5.0); Alkaline Phosphatase 90 U/L (46-116); Anion Gap 12.1 mmol/L (3-11); BUN 7 mg/dL (7-18); Bilirubin, Total 0.5 mg/dL (0.2-1.0); CO2 23.9 mmol/L (21.0-32.0); Calcium 8.6 mg/dL (8.5-10.1); Chloride 109 mmol/L (98-107); Estimated GFR 116.30 (mL/min/1.73m2); Glucose 100 mg/dL (74-106); Magnesium 2.2 mg/dL (1.8-2.4); Potassium 3.5 mmol/L (3.5-5.1); Salicylate < 2.8 mg/dL (<2.8); Sodium 145 mmol/L (136-145); Total Protein 8.1 g/dL (6.4-8.2)
[2024-09-07 12:27] LABS: Acetaminophen < 2 ug/mL (10-30)
[2024-09-07] MEDS: LORazepam 20 MG/10 ML VIAL IVP (13:28)
[2024-09-07] MEDS: PHENobarbital 140 MG in Normal Saline 50 ML 100 MG IVPB (15:36)
[2024-09-07] MEDS: cloNIDine 0.1 MG TAB PO ×2 (16:32→21:50)
--- NOTE | 2024-09-07 19:10 | HPE_ITS ---
<Statement entered by Martín Jasso - 09/08/24 06:52> Patient evaluated by Bere Doherty DATA SOLUTIONS ARCHITECT, then decided on ICU admission for MS monitoring given polysubstance use with phenobarbital protocol. Admission EKG was reassuring. Case reviewed and I agree with her note as above. - Martín Jasso MD Date of service: 09/07/24 Time of Service: 17:00 Assessment and Plan Assessment and plan (1) Alcohol abuse: Status: Acute Assessment and plan: ICU-level monitoring for alcohol withdrawal (CIWA protocol), sedative titration, and airway protection Hold methadone until ROMY normal and mental status improves; reassess dosing Monitor for arrhythmia, QTc prolongation (given methadone history and cardiac history) Alcohol Withdrawal ? Severe, with History of Seizures * Patient presents with acute alcohol withdrawal on a background of daily high- volume intake and prior withdrawal seizures. Recent discharge from rehab of 2 months stay. * CIWA scores fluctuating, currently requiring pharmacologic management. * Started on phenobarbital protocol (initial dose adjusted due to sedation risk). * Will continue phenobarbital taper and supportive care. * High risk for delirium tremens and seizure activity. * Thiamine, folate, multivitamins, IV fluids given. (2) Opioid dependence: Status: Acute Assessment and plan: Methadone-Dependent, Last Dose ~4?5 Days Ago * History of methadone maintenance (confirmed 120 mg/day). * Urine tox positive for cocaine and methadone. * Currently experiencing opioid withdrawal symptoms (anxiety, myalgias, lacrimation, restlessness). * Clonidine initiated for autonomic symptoms. * Currently sedated; fluctuating mental status likely due to poly-substance use. * Continuous monitoring for respiratory depression and hemodynamic instability. * O2 saturation stable, but patient placed on telemetry and pulse oximetry. * No naloxone needed at this time; will reassess if clinical status worsens. * Re-evaluate for possible methadone microdosing during hospitalization after stabilization. * Substance use counseling and NUPUR consult prior to discharge (3) Mild tricuspid regurgitation: Status: Chronic Assessment and plan: Past medical history of five cardiac arrests related to opioid-induced respiratory failure. History of cardiomyopathy, RBBB, LPFB, and mild valvular disease. EKG pending at time of admission; telemetry monitoring active. Avoid QT-prolonging medications and sedatives unless clearly indicated. History of Present Illness Narrative: Reason for Admission: Patient admitted to ICU for management of acute alcohol withdrawal in the setting of polysubstance abuse (methadone dependence, recent cocaine use) and elevated ROMY (187). At risk for seizures, autonomic instability, and respiratory compromise. High risk for medical complications due to history of alcohol withdrawal seizures, polysubstance dependence, and multiple prior cardiac arrests secondary to opioid-induced respiratory depression. Patient's clinical presentation fluctuated between sedation and agitation. History of Present Illness: 39-year-old female with extensive substance use history (methadone maintenance therapy, alcohol abuse, IV drug use, cocaine use) presented initially for evaluation of a leg contusion after a fall. While requesting methadone dosing, she was noted to be intoxicated with elevated ROMY and denied methadone at her clinic. Later returned to ED with complaints of withdrawal symptoms, was found to be somnolent, disoriented, and intermittently combative. Labs positive for methadone and cocaine. Patient has prior history of alcohol withdrawal seizures. Clinical Course in ED: * ROMY: 187 * Positive for methadone and cocaine * Exhibited signs of alcohol and opioid withdrawal * Received Ativan, then transitioned to phenobarbital protocol (initial reduced dose due to fluctuating sedation level) * Administered clonidine for opioid withdrawal symptoms * Fluctuating mentation; disoriented, slurred speech, poor insight * Initially declined detox, later agreed to inpatient treatment after [employer] involvement Assessment: Patient at high risk for complicated alcohol withdrawal, with history of seizures, current intoxication, and concurrent opioid withdrawal. Active risk of respiratory depression, cardiac instability, and behavioral dysregulation. Needs close monitoring, medication titration, and stabilization. Patient has a past medical history of cardiac arrest x 5; secondary to respiratory arrest in setting of opioids. Patient admitted to the ICU, guarded, for close observation, continuation of phenobarb protocol.. Review of Systems Narrative: Constitutional: Fatigue, episodic sedation, appears disheveled. No fever or chills reported. Neurologic: History of alcohol withdrawal seizures. Currently fluctuating between somnolence and agitation. No focal deficits noted on exam. Psychiatric: Labile mood, poor judgment, disorganized thought process. History of PTSD, depression, ADHD. Expressed suicidal ideation earlier in ED. Poor insight. Cardiovascular: History of cardiomyopathy, mitral/tricuspid regurgitation, and 5 prior cardiac arrests in setting of opioid-induced respiratory failure. Currently normotensive with regular rhythm. Respiratory: No current respiratory distress, but high risk for depression of respiratory drive due to alcohol, methadone, and other sedatives. History of opioid-related respiratory arrest. Gastrointestinal: Denies nausea or vomiting. Tolerating oral intake when awake. Musculoskeletal: Left leg pain secondary to recent fall; negative imaging for fracture. Right BKA?able to ambulate minimally. Skin: No rashes or signs of cellulitis. Skin intact. [facility] All Active Problems (Updated 09/07/24 @ 19:29 by Bere Doherty NP) Withdrawal complaint (Acute) Alcohol abuse (Acute) Contusion of left lower leg, initial encounter (Acute) Mild tricuspid regurgitation (Chronic) Smoker (Acute) History of prior with IUGR (Acute 01/11/15) History of kidney injury (Acute 01/17/16) Acute January, History of drug abuse (Acute 01/17/16) In IP treatment at [place], no longer on methadone as of 01/17/16. Family court is close to resolved - will end . She is expecting 1st daughter to come home. Insomnia (Acute) Anxiety (Chronic) Anemia (Chronic) Opioid dependence (Acute) Mitral regurgitation (Chronic) Medical History Cardiomyopathy (01/22/16) Hepatitis C IVDU (intravenous drug user) Methadone maintenance therapy patient Exhausted vascular access Left posterior fascicular block (LPFB) RBBB Closed head injury Cardiac arrest with successful resuscitation Pulmonary nodules Anemia Alcohol abuse Hx of cocaine abuse Personality disorder Herpes, vulvar PTSD (post-traumatic stress disorder) ADHD Subacute endocarditis (01/22/16) MSSA endocarditis January, HSV infection Hx of who one week after . ? HSV or H1N1 infection. Pt has been on prophylaxis with pregnancies. Depression difficulty bonding with 2nd child. child removed from her custody. was on Wellbutrin but had sz and not on meds at this time. has appt with counselor 03/2015 Surgical History section (11/24/12) PCD @ 35w. IUGR. [facility]. [id number] [facility] [place]. Pt arrived in labor and declined SUN. [facility]. Amputation 12/23/16;[facility]; RIGHT BELOW THE KNEE Family History Mother No problems noted. Father No problems noted. Brother No problems noted. Grandfather No problems noted. Grandfather No problems noted. Grandmother No problems noted. Grandmother No problems noted. Son No problems noted. Son No problems noted. Daughter No problems noted. Daughter No problems noted. Social History Smoking/Tobacco Use Status: Current every day Tobacco Type: cigarettes Smoking risk assessment performed?: Yes Alcohol Intake: current Alcohol Intake frequency: a few times a month Alcohol type: beer Drug use: Occasionally Substance use type: former substance user, crack/cocaine, heroin, amphetamines, opiates, IV drugs, methamphetamine and unknown Details: states last use was 3 months ago as of 09/07/24 Housing: house Do you feel safe at home: Yes Do you feel safe in your relationship?: Yes Additional Social history: pt states she is on methadone, states lives with father History History 2 4 Para 4 Hx # Term Pregnancies Multiple births Hx # Pregnancies Ectopic pregnancies AB induced Hx Number of Living Children 3 AB spontaneous Past Pregnancies Del. Date GA/Weeks # Preg Succ Route Wgt Sex Labor Lgth Anesth esia Location Prov Complic 12/28/20 Delivery Date: 12/28/20 Last Updated by: Roxanna Rocha LPN Patient transferred OB care to [facility] Meds Allergies and Home Medications Allergies Allergy/AdvReac Type Severity Reaction Status Date / Time bupropion HCl (From AdvReac Intermediate Contraindic Verified 09/07/24 05:59 Wellbutrin SR) ated Home Medications ?Medication ?Instructions ?Recorded ?Confirmed ?Type gabapentin 800 mg tablet 1,600 mg PO BID 06/02/2105/03 History methadone 10 mg/mL oral concentrate 120 mg PO DAILY 09/07/24 History furosemide 20 mg tablet 20 mg PO DAILY PRN PRN Edema 12/03/22 09/07/24 History methylphenidate HCl 40 mg biphasic 40 mg PO DAILY 11/0809/07/24 History 50-50 capsule,extended release (Ritalin LA) duloxetine 60 mg capsule,delayed 60 mg PO DAILY 09/07/24 History release naloxone 4 mg/actuation nasal spray 4 mg intranasal Q2 M PRN #2 ea 12/25/22 09/07/24 Rx acetaminophen 500 mg tablet 1,000 mg (2 x 500 mg) PO Q 6H PRN 08/28/23 09/07/24 Rx #40 tabs ibuprofen 800 mg tablet 800 mg PO Q8H PRN #15 tabs 0 08/28/23 09/07/24 Rx lamotrigine 50 mg tablet,extended 50 mg PO DAILY 05/0209/07/24 History release 24 hr (Lamictal XR) Exam Narrative Exam Narrative: General: Disheveled adult female, intermittently somnolent but arousable; labile affect. Appears intoxicated. No acute respiratory distress. Vital Signs: * Temp: 36.1?C * HR: 89 bpm, regular * RR: 13/min * BP: 98/62 mmHg * SpO?: 100% on room air HEENT: Normocephalic, atraumatic. Pupils equal, round, reactive to light. No scleral icterus. Oropharynx clear. Neck: Supple, no lymphadenopathy, no JVD, trachea midline. Cardiovascular: Regular rate and rhythm. Normal S1/S2. No murmurs, rubs, or gallops. History of RBBB and cardiomyopathy?monitoring ongoing. Respiratory: Clear to auscultation bilaterally. No wheezes, rales, or rhonchi. Normal work of breathing. Gastrointestinal: Soft, non-tender, non-distended. Normal bowel sounds. No hepatosplenomegaly. Neurologic: A&O x1?2 when aroused. Slurred speech. Moves all extremities spontaneously. Cranial nerves II?XII grossly intact. No focal motor or sensory deficits noted. History of seizures?precautions in place. Musculoskeletal: Left leg with mild tenderness at fibular head, no deformity. Right below-knee amputation with intact stump. [facility]. Skin: Warm, dry. No rashes, track gonzalez, or signs of cellulitis. No diaphoresis at this time. Psychiatric: Appears intoxicated. Labile mood, poor insight and judgment. Periods of agitation alternating with sedation. Poor impulse control. Results Labs 09/07/24 11:50 09/07/24 11:50 Labs: Laboratory Results - last 24 hr 09/07/24 09/07/24 11:41 11:50 WBC 7.54 RBC 4.28 Hgb 12.5 Hct 37.6 MCV 88 MCH 29.2 MCHC 33.2 RDW 13.4 Plt Count 263 MPV 9.3 Immature Gran % 0.3 Neutrophils % 79.4 Lymphocytes % 15.1 Monocytes % 5.0 Eosinophils % 0.1 Basophils % 0.1 Nucleated RBC % 0.0 Absolute Neutrophils 5.98 Absolute Lymphocytes 1.14 L Absolute Monocytes 0.38 Absolute Eosinophils 0.01 Absolute Basophils 0.01 Sodium 145 Potassium 3.5 Chloride 109 H Carbon Dioxide 23.9 Anion Gap 12.1 H BUN 7 Creatinine 0.6 Est GFR (CKD-EPI 2020) 116.30 Glucose 100 Calcium 8.6 Magnesium 2.2 Total Bilirubin 0.5 AST 30 ALT 51 Alkaline Phosphatase 90 Total Protein 8.1 Albumin 4.3 Salicylates < 2.8 Urine Opiates Screen Negative Urine Methadone Screen Positive A Acetaminophen < 2 Ur Barbiturates Screen Negative Ur Tricyclics Screen Negative Ur Amphetamines Screen Negative U Benzodiazepines Scrn Negative Urine Cocaine Screen Positive A Ur THC Screen Negative Ethyl Alcohol 187.4 H Last Vital Signs Temp 37.0 C 09/07/24 17:47 Pulse 100 H 09/07/24 16:10 Resp 39 H 09/07/24 17:33 BP 98/62 L 09/07/24 11:01 Pulse Ox 96 09/07/24 16:10 PAWSS Have you Been Recently Intoxicated or Drunk Within the Last 30 days?: Yes Have you Ever Experienced Previous Episodes of Alcohol Withdrawal?: Yes Have you ever Experienced Withdrawal Seizures?: Yes Have you ever Experienced Delirium Tremens(DT)s?: Yes Have you ever undergone Alcohol Rehabilitation Treatment (i.e, inpt ot outpatient treatment programs)?: Yes Have you ever Experienced Blackouts?: Yes Have you ever Combined Alcohol with other Downers within the last 90 days?: Yes Have you ever Combined Alcohol with any other Substance of Abuse during the last 90 days?: Yes Positive Blood Alcohol level on Presentation? [PCS.BAL]: Yes Evidence of Increased Autonomic Activity (i.e. HR>120, tremor, sweating, agitation, nausea)?: Yes Result: 10 Time Spent Time spent with Patient: 40-54 minutes Time was spent: preparing to see the patient(eg.review tests), obtaining and/or reviewing separately otained hiistory, ordering medications,tests, procedures, referring, communicating with other health child care group leader, indepentently interpreting results, counseling the patient and care coordination
[2024-09-07] MEDS: PHENobarbital 130 MG/ML VIAL IVP (23:49)
[2024-09-08] VITALS (31 sets, daily range): BP systolic 97–127; BP diastolic 69–98; PULSE 56–91; RESP 15–27; TEMP 36.9–37.3; O2SAT 93–99
[2024-09-08] MEDS: PHENobarbital 130 MG/ML VIAL IVP ×3 (01:17→05:40)
[2024-09-08] MEDS: Methadone 10 MG TAB 60 MG PO ×2 (06:23→10:00)
[2024-09-08 07:46] LABS: Abs Immature Grans 0.01 10^3/uL (0.0-0.06); HCT 31.9 % (36.0-46.0); HGB 10.8 g/dL (11.2-15.7); Immature Grans % 0.2 %; MCH 29.6 pg (27.0-33.0); MCHC 33.9 % (32.0-36.0); MCV 87 fL (80-95); MPV 9.3 fL (8.0-11.0); Platelet Count 212 10^3/uL (130-400); RBC 3.65 10^6/uL (3.93-5.22); RDW 13.2 % (11.7-14.6); RDW-SD 42.4 fL; WBC 5.31 10^3/uL (4.4-10.8)
--- NOTE | 2024-09-08 08:36 | INITIAL_ITS ---
Date of service: 09/08/24 Time of Service: 08:36 Care Management Initial Assmt Initial Assessment Reason for Hospitalization: ETOH abuse/withdrawal Functional Status/Living Situation Patient Presentation: Denisse presented to the ER yesterday morning with c/o ETOH and narcotic withdrawal. The ER had been contacted by [facility] clinician that Denisse would be presenting. She had gone to [facility] looking for methadone, but was intoxicated and sent to the ER. Denisse was sitting on the bed, fidgety, when NORMAN met with her today. Denisse is well known to NORMAN and she immediately responded with a hug. Denisse stated that she had been in rehab at a place called [facility] in [place] for 2.5 months. She was really feeling good, better than she had in years. When she was discharged, there was some confusion with her medications and her methadone was not restarted. She went 4 days without her methadone and was withdrawing from it. She felt so sick, and was withdrawing so hard, that she relapsed with drugs. Denisse stated that she feels embarrassed and that she has let her family down. She wants to feel good again. Denisse asked to get her the numbers for [facility] and also a rehab center called [facility], which was done. also called the [employer] at Denisse's request. Town of Residence: [facility] [facility] Resides with: Parent (Lives with parents and her 2 daughters. 1 daughter spends a good amount of time with her dad.) Significant Other/Family: Local (Parents, daughters and her daughter's father.) Natural Supports: family Employment Status: Unemployed (working on getting disability) Instrumental Activities of Daily Living (ADLs): Independent Physical Functioning/Mobility Assistive Device: right BKA prosthetic Advance Directives Advance Directives: Do you have an Advance Directive: N , 17:03 AD On File at [facility]: N 06/13/12, 00:00 Date Asked 09/07/24 09/07/24, 10:52 AD Date Reviewed COLST On File at [facility] No 10/03/23, 17:24 COLST Date Scanned Code Status Resuscitation Status Full Code Insurance Coverage/Financial Issues Insurance: Medicaid of [place] Care Team Visit Care Team Role Provider Type Glenn Tinajero Primary Care Provider NON-[facility] STAFF PHYSICIAN CHARLIE [facility] [employer] OFF[employer] Martín Jasso Admit Provider MD [facility] STAFF PHYSICIAN Attending Provider Discharge Potential Discharge Needs: PCP F/U Appt (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 She will f/u with her PCP and recovery supports and continue per her plan of care. CM will continue to follow. Social Determinants of Health Screening Social Determinants of health last assessed in clinic: 09/08/24 Will the Patient Participate in the Screening?: Yes Do you worry about having a steady place to live?: no Problems where you live: no known problems In the past 12 months, have you had to go without electric, gas, oil or water in your home?: no 1. Within the past 12 months, we worried whether our food would run out before we got money to buy more.: Never true 2. Within the past 12 months, the food we bought just didn't last and we didn't have money to get more.: Never true Has lack of transportation kept you from medical appointments or from doing things needed for daily living?: no Has anyone in your life made you feel unsafe or unsupported?: no How hard is it for you to pay for the very basics like food, housing, medical care, and heating? Would you say it is:: Somewhat hard Do you want help finding or keeping work or a job?: I do not need or want help If for any reason you need help with day-to-day activities such as bathing, preparing meals, shopping, managing finances, etc., do you get the help you need?: I get all the help I need How often do you feel lonely or isolated from those around you?: Sometimes Do you speak a language other than Korean at home?: No Does the patient want assistance with any of the above?: No Health Related Social Needs Health related social needs: problems related to housing/economic circumstances (Z59.89) and feeling lonely/isolated (Z60.8) Health related social needs details: patient utilizes the [facility] All Active Problems (Updated 09/07/24 @ 19:29 by Bere Doherty NP) Withdrawal complaint (Acute) Alcohol abuse (Acute) Contusion of left lower leg, initial encounter (Acute) Mild tricuspid regurgitation (Chronic) Smoker (Acute) History of prior with IUGR (Acute 01/11/15) History of kidney injury (Acute 01/17/16) Acute January, History of drug abuse (Acute 01/17/16) In IP treatment at [place], no longer on methadone as of 01/17/16. Family court is close to resolved - will end . She is expecting 1st daughter to come home. Insomnia (Acute) Anxiety (Chronic) Anemia (Chronic) Opioid dependence (Acute) Mitral regurgitation (Chronic) Medical History Cardiomyopathy (01/22/16) Hepatitis C IVDU (intravenous drug user) Methadone maintenance therapy patient Exhausted vascular access Left posterior fascicular block (LPFB) RBBB Closed head injury Cardiac arrest with successful resuscitation Pulmonary nodules Anemia Alcohol abuse Hx of cocaine abuse Personality disorder Herpes, vulvar PTSD (post-traumatic stress disorder) ADHD Subacute endocarditis (01/22/16) MSSA endocarditis January, HSV infection Hx of who one week after . ? HSV or H1N1 infection. Pt has been on prophylaxis with pregnancies. Depression difficulty bonding with 2nd child. child removed from her custody. was on Wellbutrin but had sz and not on meds at this time. has appt with counselor 03/2015 Surgical History section (11/24/12) PCD @ 35w. IUGR. [facility]. [id number] [facility] [place]. Pt arrived in labor and declined SUN. [facility]. Amputation 12/23/16;[facility]; RIGHT BELOW THE KNEE Family History Mother No problems noted. Father No problems noted. Brother No problems noted. Grandfather No problems noted. Grandfather No problems noted. Grandmother No problems noted. Grandmother No problems noted. Son No problems noted. Son No problems noted. Daughter No problems noted. Daughter No problems noted. Social History Smoking/Tobacco Use Status: Current every day Tobacco Type: cigarettes Smoking risk assessment performed?: Yes Alcohol Intake: current Alcohol Intake frequency: a few times a month Alcohol type: beer Drug use: Occasionally Substance use type: former substance user, crack/cocaine, heroin, amphetamines, opiates, IV drugs, methamphetamine and unknown Details: states last use was 3 months ago as of 09/07/24 Housing: house Do you feel safe at home: Yes Do you feel safe in your relationship?: Yes Additional Social history: pt states she is on methadone, states lives with father History History 4 Para 4 Hx # Term Pregnancies Multiple births Hx # Pregnancies Ectopic pregnancies AB induced Hx Number of Living Children 3 AB spontaneous Past Pregnancies Del. Date GA/Weeks # Preg Succ Route Wgt Sex Labor Lgth Anesth esia Location Prov Complic 12/28/20 25 Delivery Date: 12/28/20 Last Updated by: Roxanna Rocha LPN [facility]
[2024-09-08 08:41] LABS: ALT 39 U/L (14-59); AST 17 U/L (15-37); Albumin 3.7 g/dL (3.4-5.0); Alkaline Phosphatase 78 U/L (46-116); Anion Gap 11.2 mmol/L (3-11); BUN 8 mg/dL (7-18); Bilirubin, Total 0.6 mg/dL (0.2-1.0); CO2 23.8 mmol/L (21.0-32.0); Calcium 8.6 mg/dL (8.5-10.1); Chloride 107 mmol/L (98-107); Estimated GFR 121.52 (mL/min/1.73m2); Glucose 126 mg/dL (74-106); Potassium 3.6 mmol/L (3.5-5.1); Sodium 142 mmol/L (136-145); Total Protein 7.0 g/dL (6.4-8.2)
[2024-09-08] MEDS: Gabapentin 800 MG TAB 1600 MG PO (09:59)
[2024-09-08] MEDS: DULoxetine 30 MG CAP 60 MG PO (09:59)
[2024-09-08] MEDS: lamoTRIgine 25 MG TAB PO (09:59)
[2024-09-08] MEDS: Normal Saline Flush 10 ML SYR IVP ×2 (10:01→17:24)
[2024-09-08] MEDS: METHYLPHENIDATE PO (10:52)
--- NOTE | 2024-09-08 11:47 | W.NUTRFU ---
Date of service: 09/08/24 Time of Service: 11:47 Nutrition Note NOTE: 39yo female known to me from previous admissions. Hx of BKA. Currently in ICU on regular diet order with fair intake of lunch -reportedly well tolerated. Pt was ordered for IV MVI with 100mg B1 and 1mg FA No immediate nutrition concerns outside of the chronic detriments of etoh/substance use. Patient not appropriate currently for in-depth nutrition conversation/assessment Will monitor po intake, weight, nutrition-related labs, and follow up with patient regarding any specific nutrition needs this admission. Time Spent in Nutritional Counseling and Treatment: 0
[2024-09-08] MEDS: Methylphenidate 10 MG TAB PO (15:55)
--- NOTE | 2024-09-08 17:36 | DSE_ITS ---
Date of service: 09/08/24 Time of Service: 17:36 DS: Diagnosis Discharge Diagnosis (1) Alcohol abuse: Status: Acute (2) Opioid dependence: Status: Acute (3) Mild tricuspid regurgitation: Status: Chronic Discharge Plan Disposition Patient Disposition: Home Condition: Good Discharge Details Reason For Visit: Alcohol withdrawal; substance use disorder Admit Date/Time: 09/07/24 16:01 Admit Provider: Martín Jasso Attending Provider: Martín Jasso Primary Care Provider: Glenn Tinajero Hospital Course Hospital Course: 39 yo F with history of opioid use disorder on methadone, alcohol use disorder, cocaine use, h/o IVDU and multiple infectious complications including endocarditis and amputation, chornic HCV, ADHD, and anxiety/PTSD who presented agitated after an alcohol binge. She had been at rehab in [place] for 2+ mo nths and recently returned home, and was without her regular medications for 3-4 days, including methadone. Her alcohol level was 187.4 and her UDS was positive for methadone and cocaine. Due to her high risk history including withdrawal seizures and cardiac arrest, she was admitted to the ICU and started on phenobarbital protocol. By the following morning her mental status was clear. She did not get any additional prn phenobarbital doses. She stated she only drank for a day or two because she was trying to cope with opioid withdrawal from being off her methadone. Her methadone was resumed at 120mg day after a discussion with Dr. Mendosa from [facility] who states she can re-enroll. Dr. Mendosa did express concern for her alcohol use disorder being severe. She was not sedated on the 120mg of methadone. [facility] did not have her regular prescriptions so she was given a month prescription for her duloxetine and lamotrigine (she was off only for a few days) and one week of both versions of methylphenicate and her gabapentin. Acamprosate was prescribed for her alcohol use disorder. Her PCP is preparing to treat her HCV. HCV viral load and hepatitis B and HIV screens were sent to assess her current infection status. Her CBC and LFTs were not c/w advanced fibrosis. She made an appointment with her PCP Glenn Barton for 09/29, but plans to follow up sooner if she can as spots open up. Home Meds and New Rx's Prescriptions: New methylphenidate HCl 5 mg tablet 5 mg PO QPM Qty: 7 0RF methylphenidate HCl [Ritalin LA] 40 mg capsule,ER biphasic 50-50 40 mg PO QAM Qty: 7 0RF duloxetine 60 mg capsule,delayed release(DR/EC) 60 mg PO DAILY Qty: 30 0RF gabapentin 800 mg tablet 800 mg PO QID Qty: 28 0RF acamprosate 333 mg tablet,delayed release (DR/EC) 666 mg PO TID Qty: 270 2RF lamotrigine 50 mg tablet extended release 24hr 50 mg PO DAILY Qty: 30 0RF Continued methadone 10 mg/mL Concentrate 120 mg PO DAILY Patient Comments: pt states last dose 4-5 days ago, unable to say where and when and how much Rx Instructions: CONFIRMED DOSE WITH [facility] 05/02/24 :120mg naloxone 4 mg/actuation spray,non-aerosol 4 mg intranasal Q2M PRNQty: 2 12RF Rx Instructions: spray 1 dose into ONE nostril; alternate nostrils w each dose until help arrives furosemide 20 mg tablet 20 mg PO DAILY PRN PRN (Reason: Edema) Patient Comments: 1 tablet by mouth once a day as needed TAKE ONE TABLET BY MOUTH EVERY DAY as needed for edema acetaminophen 500 mg tablet 1,000 mg PO Q6H PRNQty: 40 0RF ibuprofen 800 mg tablet 800 mg PO Q8H PRNQty: 15 0RF Discontinued methylphenidate HCl [Ritalin LA] 40 mg capsule,ER biphasic 50-50 40 mg PO DAILY Patient Comments: Take 1 capsule by mouth once a day Discharge Instructions Instructions: Alcohol Use Disorder (DC) Additional Instructions: Try the acamprosate to help you not want to drink alcohol follow up with [facility] 09/09/[address] Mendosa Referrals: Glenn Tinajero [Primary Care Provider, Medicine] - 09/29/24 10:30 am Referral Note: Patient made appointment for 09/29 at 1030. Activity:: Activity as Tolerated Equipment/Supplies:: No Equipment Needed Diet:: As Tolerated Discharge Orders Discharge Orders: Discharge Order (Routine); Ordered 09/08/24 Ordered By: Martín Jasso DS: Summary Time Spent with Patient providing and/or coordinating discharge services: Greater than 30 minutes Status at Discharge Functional status at discharge: independent ambulation Overall status at discharge: patient is back to baseline Mental Status: mental status grossly normal Speech and Movement: speech and movement normal Mood: congruent mood Affect: normal affect Quality:SDOH Health Related Social Needs: Health related social needs house/econ circumstance lo antonio/isolated Health related social needs details patient utilizes t he [facility] Health related social needs details: patient utilizes the [facility] Exam Narrative Exam Narrative: GEN: Alert and oriented x 4, pleasant and cooperative. No acute distress at rest. Pupils mid-sized in room light. Yawning prior to methadone dose LUNGS: CTAB with normal effort CV: RRR ABD: active bowel sounds, soft, nontender and nondistended. No masses. EXT: no cyanosis. trace edema left, right AKA. NEURO: Normal movement, No tremor SKIN: No rashes or open wounds. PSYCH: normal mood and affect Psych Mental Status: mental status grossly normal Speech and Movement: speech and movement normal Mood: congruent mood Affect: normal affect DS: Data Vitals/I&O Vitals and I&O: Vital Signs Temperature 37.2 C 09/08/24 15:20 Temperature Source Temporal Artery Scan 09/08/24 15:20 Pulse 91 H 09/08/24 16:22 Pulse 68 09/08/24 03:20 Respiratory Rate 16 09/08/24 12:00 Respiratory Effort Normal 09/07/24 17:43 Respiratory Pattern Normal 09/07/24 14:54 Blood Pressure 127/78 09/08/24 16:22 Blood Pressure Mean 93 09/08/24 16:22 Blood Pressure Position Supine 09/07/24 11:01 Pulse Oximetry 98 09/08/24 16:22 Oxygen Delivery Method Room Air 09/08/24 15:20 Oxygen Flow Rate 0 09/08/24 15:20 Pain Level 10 09/07/24 13:28 Intake & Output 09/07/24 09/08/24 09/08/24 23:59 11:59 23:59 Intake Total 1030 / 1759 789.9719 / 641.8462 360 / 641.8462 Output Total 200 / 200 100 / 100 Balance 830 / 584 105.1343 / 541.8462 360 / 541.8462 Weight 75.1 kg Intake: IV 1030 / 9009 378.9877 / 101.8462 Oral 180 / 540 360 / 540 Output: Urine 200 / 200 100 / 100 Other: Urine Color Yellow Urine Appearance Clear Urine Odor Normal Comment unmeasurable mixed with stool in commode Stool Size Large Stool Characteristics Soft Formed Brown Data Completed and Pending Labs on day of discharge: Labs from last 24 hours 09/08/24 09/08/24 09/08/24 Unknown 16:16 07:00 WBC 5.31 RBC 3.65 L Hgb 10.8 L Hct 31.9 L MCV 87 MCH 29.6 MCHC 33.9 RDW 13.2 Plt Count 212 MPV 9.3 Immature Gran % 0.2 Neutrophils % 68.3 Lymphocytes % 23.0 Monocytes % 6.4 Eosinophils % 1.5 Basophils % 0.6 Nucleated RBC % 0.0 Absolute Neutrophils 3.63 Absolute Lymphocytes 1.22 Absolute Monocytes 0.34 Absolute Eosinophils 0.08 Absolute Basophils 0.03 Sodium 142 Potassium 3.6 Chloride 107 Carbon Dioxide 23.8 Anion Gap 11.2 H BUN 8 Creatinine 0.5 L Est GFR (CKD-EPI 2020) 121.52 Glucose 126 H Calcium 8.6 Total Bilirubin 0.6 AST 17 ALT 39 Alkaline Phosphatase 78 Total Protein 7.0 Albumin 3.7 Urine Color Pending Urine Clarity Pending Urine pH Pending Ur Specific [place] Pending Urine Protein Pending Urine Ketones Pending Urine Blood Pending Urine Nitrite Pending Urine Bilirubin Pending Urine Urobilinogen Pending Ur Leukocyte Esterase Pending Urine Glucose Pending Hep Bs Antigen Pending Hep Bs Antibody Pending Hep Bs Antibody, Quant Pending Hep B Core Total Ab Pending HCV RNA Qual (PCR) Pending Hepatitis C RNA Quant Pending HIV 1&2 Ag/Ab, 4th Gen Pending PFSH All Active Problems (Updated 09/07/24 @ 19:29 by Bere Doherty NP) Withdrawal complaint (Acute) Alcohol abuse (Acute) Contusion of left lower leg, initial encounter (Acute) Mild tricuspid regurgitation (Chronic) Smoker (Acute) History of prior with IUGR (Acute 01/11/15) History of kidney injury (Acute 01/17/16) Acute January, History of drug abuse (Acute 01/17/16) In IP treatment at [place], no longer on methadone as of 01/17/16. Family court is close to resolved - will end . She is expecting 1st daughter to come home. Insomnia (Acute) Anxiety (Chronic) Anemia (Chronic) Opioid dependence (Acute) Mitral regurgitation (Chronic) Medical History Cardiomyopathy (01/22/16) Hepatitis C IVDU (intravenous drug user) Methadone maintenance therapy patient Exhausted vascular access Left posterior fascicular block (LPFB) RBBB Closed head injury Cardiac arrest with successful resuscitation Pulmonary nodules Anemia Alcohol abuse Hx of cocaine abuse Personality disorder Herpes, vulvar PTSD (post-traumatic stress disorder) ADHD Subacute endocarditis (01/22/16) MSSA endocarditis January, HSV infection Hx of who one week after . ? HSV or H1N1 infection. Pt has been on prophylaxis with pregnancies. Depression difficulty bonding with 2nd child. child removed from her custody. was on Wellbutrin but had sz and not on meds at this time. has appt with counselor 03/2015 Surgical History section (11/24/12) PCD @ 35w. [facility]. [facility]. [id number]. [facility]. 03/26/15 RCD. Pt arrived in labor and declined SUN. [facility]. [facility]. Amputation 12/23/16;[facility]; RIGHT BELOW THE KNEE Family History Mother No problems noted. Father No problems noted. Brother No problems noted. Grandfather No problems noted. Grandfather No problems noted. Grandmother No problems noted. Grandmother No problems noted. Son No problems noted. Son No problems noted. Daughter No problems noted. Daughter No problems noted. Social History Smoking/Tobacco Use Status: Current every day Tobacco Type: cigarettes Smoking risk assessment performed?: Yes Alcohol Intake: current Alcohol Intake frequency: a few times a month Alcohol type: beer Drug use: Occasionally Substance use type: former substance user, crack/cocaine, heroin, amphetamines, opiates, IV drugs, methamphetamine and unknown Details: states last use was 3 months ago as of 09/07/24 Housing: house Do you feel safe at home: Yes Do you feel safe in your relationship?: Yes Additional Social history: pt states she is on methadone, states lives with father History History 4 Para 4 Hx # Term Pregnancies Multiple births Hx # Pregnancies Ectopic pregnancies AB induced Hx Number of Living Children 3 AB spontaneous Past Pregnancies Del. Date GA/Weeks # Preg Succ Route Wgt Sex Labor Lgth Anesth esia Location Prov Complic 12/28/20 25 Delivery Date: 12/28/20 Last Updated by: Roxanna Rocha LPN Patient transferred OB care to [facility] Time Spent with Patient Time Spent with Patient: 45-69 minutes Time was spent: preparing to see the patient(eg.review tests), obtaining and/or reviewing separately otained hiistory, ordering medications,tests, procedures, referring, communicating with other health lawn care technician, indepentently interpreting results, counseling the patient and care coordination
[2024-09-08 17:48] LABS: Glucose Negative (Negative)
[2024-09-09 17:17] LABS: HIV-1/2 Ag & Ab Screen Negative (Negative)
[2024-09-09 17:56] LABS: HBs Antibody, Quant 409.4 mIU/mL (See Note); Hepatitis B Surface Antigen Negative (Negative)
[2024-09-12 11:49] LABS: HCV RNA Detection Quantitative 13000 IU/mL (Undetected); HCV RNA Qualitative Detected (Undetected)
== END 2024-09-08 18:10 | disposition home or self-care (01) | DRG 897 ==
LOC: ER 16:39 → ICU 17:10
PROVIDERS: Nurse Practitioner Family; Admitting Provider Family Medicine; Emergency Provider Physician Assistant; PCP Physician Assistant; Responsible Provider Family Medicine; Visit Provider Family Medicine
DX: F10.139 Alcohol abuse with withdrawal, unspecified (principal); F11.20 Opioid dependence, uncomplicated; I42.9 Cardiomyopathy, unspecified; I45.2 Bifascicular block; I07.1 Rheumatic tricuspid insufficiency; Z86.74 Personal history of sudden cardiac arrest; Y90.6 Blood alcohol level of 120-199 mg/100 ml; F10.129 Alcohol abuse with intoxication, unspecified; F14.90 Cocaine use, unspecified, uncomplicated; B18.2 Chronic viral hepatitis C; F90.9 Attention-deficit hyperactivity disorder, unspecified type; F41.9 Anxiety disorder, unspecified; F43.10 Post-traumatic stress disorder, unspecified; Z89.611 Acquired absence of right leg above knee; Z59.89 Other problems related to housing and economic circumstances
CPT/HCPCS: 00123; 36410; 36415; 80053; 80307; 86704; 86706; 87340; 87389; 87522; 96361; 96365; 96375; 99285; 80320; 80329; 81003; 83735; 85025; 99222; 99223; 99239; J2060; J2560

== ENCOUNTER 2024-10-01 12:02 | Emergency (ER) | payer MEDICAID, SELFPAY ==
[2024-10-01 12:04] VITALS: BP 128/79; PULSE 71; RESP 16; TEMP 36.4; O2SAT 96
--- NOTE | 2024-10-01 12:21 | W.ED.GENAD ---
Discharge Plan Disposition Patient Disposition: Home Condition: Stable Discharge Details Clinical Impression: Blepharitis Primary Care Provider: Glenn Tinajero ED Provider: Tim Fitzpatrick Home Meds and New Rx's Prescriptions: Continued methadone 10 mg/mL Concentrate 140 mg PO DAILY Patient Comments: verified dose 10/01/24 w/BAART Rx Instructions: CONFIRMED DOSE WITH [facility] 05/02/24 :120mg naloxone 4 mg/actuation spray,non-aerosol 4 mg intranasal Q2M PRNQty: 2 12RF Rx Instructions: spray 1 dose into ONE nostril; alternate nostrils w each dose until help arrives furosemide 20 mg tablet 20 mg PO DAILY PRN PRN (Reason: Edema) Patient Comments: 1 tablet by mouth once a day as needed TAKE ONE TABLET BY MOUTH EVERY DAY as needed for edema acetaminophen 500 mg tablet 1,000 mg PO Q6H PRNQty: 40 0RF ibuprofen 800 mg tablet 800 mg PO Q8H PRNQty: 15 0RF methylphenidate HCl 5 mg tablet 5 mg PO QPM Qty: 7 0RF methylphenidate HCl [Ritalin LA] 40 mg capsule,ER biphasic 50-50 40 mg PO QAM Qty: 7 0RF duloxetine 60 mg capsule,delayed release(DR/EC) 60 mg PO DAILY Qty: 30 0RF gabapentin 800 mg tablet 800 mg PO QID Qty: 28 0RF lamotrigine 50 mg tablet extended release 24hr 50 mg PO DAILY Qty: 30 0RF No Action acamprosate 333 mg tablet,delayed release (DR/EC) 666 mg PO TID Qty: 270 2RF Discharge Instructions Additional Instructions: Use the eye ointment 3 times a day for 5 days or until the tube is gone on the left upper eyelid. If not improving within a week follow-up with your primary care provider. If you feel significantly more ill or have new symptoms such as high fevers or deep eye pain return to the emergency department for reevaluation HPI General Mode of arrival: ambulatory. Date/Time Provider Initiated Documentation: 10/01/24 12:12. Limitations to Documentation: no limitations. Information obtained by: patient. History of Present Illness 39 year old F presents to the emergency department with the chief complaint of left upper eyelid swollen, missed methadone dose, described as mild, Patient started experiencing this day(s) (2) and it has been constant. No relieving factors improve symptom(s), No exacerbating factors reported . Patient notes denies fever/chills. Patient did receive the following treatments prior to arrival, none Related Data Home Medications ?Medication ?Instructions ?Recorded ?Confirmed methadone 10 mg/mL oral concentrate 140 mg PO DAILY 06/02/21 10/01/24 furosemide 20 mg tablet 20 mg PO DAILY PRN PRN Edema 12/03/22 10/01/24 naloxone 4 mg/actuation nasal spray 4 mg intranasal Q2M PRN #2 ea 12/25/22 10/01/24 acetaminophen 500 mg tablet 1,000 mg (2 x 500 mg) PO Q6H PRN 08/28/23 10/01/24 #40 tabs ibuprofen 800 mg tablet 800 mg PO Q8H PRN #15 tabs 08/28/23 10/01/24 acamprosate 333 mg tablet,delayed 666 mg (2 x 333 mg) PO TID #270 09/08/24 10/01/24 release tabs duloxetine 60 mg capsule,delayed 60 mg PO DAILY #30 caps 09/08/24 10/01/24 release gabapentin 800 mg tablet 800 mg PO QID #28 tabs 09/08/24 10/01/24 lamotrigine 50 mg tablet,extended 50 mg PO DAILY #30 tabs 09/08/24 10/01/24 release 24 hr methylphenidate HCl 40 mg biphasic 40 mg PO QAM #7 caps 09/08/24 10/01/24 50-50 capsule,extended release (Ritalin LA) methylphenidate HCl 5 mg tablet 5 mg PO QPM #7 tabs 09/08/24 10/01/24 Previous Rx's ?Medication ?Instructions ?Recorded naloxone 4 mg/actuation nasal spray 4 mg intranasal Q2M PRN #2 ea 12/25/22 acetaminophen 500 mg tablet 1,000 mg (2 x 500 mg) PO Q6H PRN 08/28/23 #40 tabs ibuprofen 800 mg tablet 800 mg PO Q8H PRN #15 tabs 08/28/23 acamprosate 333 mg tablet,delayed 666 mg (2 x 333 mg) PO TID #270 09/08/24 release tabs duloxetine 60 mg capsule,delayed 60 mg PO DAILY #30 caps 09/08/24 release gabapentin 800 mg tablet 800 mg PO QID #28 tabs 09/08/24 lamotrigine 50 mg tablet,extended 50 mg PO DAILY #30 tabs 09/08/24 release 24 hr methylphenidate HCl 40 mg biphasic 40 mg PO QAM #7 caps 09/08/24 50-50 capsule,extended release (Ritalin LA) methylphenidate HCl 5 mg tablet 5 mg PO QPM #7 tabs 09/08/24 Allergies Allergy/AdvReac Type Severity Reaction Status Date / Time bupropion HCl (From AdvReac Intermediate Contraindic Verified 10/01/24 12:07 Wellbutrin SR) ated General Stated Complaint: EyeProblem CELESTE: 4 Review of Systems All systems reviewed & are unremarkable except as noted in HPI and below Constitutional Constitutional: Denies chills, Denies fever(s) and Denies weakness Eyes Eyes: Denies blurry vision Cardiovascular Cardiovascular: Denies chest pain and Denies dyspnea Respiratory Respiratory: Denies cough and Denies dyspnea Gastrointestinal Gastrointestinal: Denies abdominal pain, Denies nausea and Denies vomiting Neurologic Neurologic: Denies weakness Exam Const General: no acute distress Orientation: alert HENCO Head: normal to inspection Ears: external ears normal General nose exam: external nose normal Mouth: moist mucous membranes Eyes Alignment and Position: alignment normal Eyelids: abnormal eyelids Conjunctivae: conjunctivae normal Sclera: sclerae normal Pupils: PERRL EOM: EOM intact bilaterally Neck Neck: normal visual inspection Resp Effort & Inspection: normal respiratory effort and able to speak in complete sentences Cardio Rate: regular rate Skin General skin exam: no rashes or lesions noted Neuro General: patient alert and patient oriented x3 Extrem General: normal to inspection Psych Mental Status: mental status grossly normal Course Vital Signs Vital signs: Vital Signs Temperature 36.4 C 10/01/24 12:04 Pulse 71 10/01/24 12:04 Respiratory Rate 16 10/01/24 12:04 Blood Pressure 128/79 10/01/24 12:04 Pulse Oximetry 96 10/01/24 12:04 Temperature 36.4 C 10/01/24 12:04 Temperature Source Oral 10/01/24 12:04 Pulse 71 10/01/24 12:04 Respiratory Rate 16 10/01/24 12:04 Blood Pressure 128/79 10/01/24 12:04 Blood Pressure Position Sitting 10/01/24 12:04 Pulse Oximetry 96 10/01/24 12:04 Oxygen Delivery Method Room Air 10/01/24 12:04 Oxygen Flow Rate 0 10/01/24 12:04 Pain Level 7 10/01/24 12:04 Medical Decision Making 39-year-old female who states she is on methadone and is currently with umbrella and overslept this morning and missed her dose comes in with request for administration of her missed dose and also has been having issues with her left upper eyelid for 2 days. She says she gets eyelash distentions and thinks she had a reaction to it. She had them removed but her left upper eyelid is still itching and mildly swollen. She denies any changes in vision or fevers. She is well-appearing oriented x 4 with clear speech. She has no periorbital swelling but her left upper eyelid is mildly erythematous with swelling. Pupils are equal and reactive to light with extraocular eye movements intact. Exam findings are consistent with likely blepharitis and we will put her on erythromycin ointment. She has no findings on exam or history to suggest preseptal or orbital cellulitis and do not feel any labs or imaging are indicated. Patient is 20/25 in both eyes on my exam. Will confirm her methadone dose and order it once it is confirmed Differential Diagnosis Differential Diagnosis: Missed methadone dose, blepharitis, Quality:SDOH Health Related Social Needs: Health related social needs house/econ circumstance lonely/isolated Health related social needs details patient utilizes the [facility] All Active Problems (Updated 10/01/24 @ 12:31 by Tim Fitzpatrick MD) Blepharitis (Acute) Alcohol abuse (Acute) Contusion of left lower leg, initial encounter (Acute) Mild tricuspid regurgitation (Chronic) Smoker (Acute) History of prior with IUGR (Acute 01/11/15) History of kidney injury (Acute 01/17/16) Acute January, History of drug abuse (Acute 01/17/16) In IP treatment at [place], no longer on methadone as of 01/17/16. Family court is close to resolved - will end . She is expecting 1st daughter to come home. Insomnia (Acute) Anxiety (Chronic) Anemia (Chronic) Opioid dependence (Acute) Mitral regurgitation (Chronic) Medical History Cardiomyopathy (01/22/16) Hepatitis C IVDU (intravenous drug user) Methadone maintenance therapy patient Exhausted vascular access Left posterior fascicular block (LPFB) RBBB Closed head injury Cardiac arrest with successful resuscitation Pulmonary nodules Anemia Alcohol abuse Hx of cocaine abuse Personality disorder Herpes, vulvar PTSD (post-traumatic stress disorder) ADHD Subacute endocarditis (01/22/16) MSSA endocarditis January, HSV infection Hx of infant who one week after . ? HSV or H1N1 infection. Pt has been on prophylaxis with pregnancies. Depression difficulty bonding with 2nd child. child removed from her custody. was on Wellbutrin but had sz and not on meds at this time. has appt with counselor 03/2015 Surgical History section (11/24/12) PCD @ 35w. IU[facility]. [facility]. [id number]. [facility]. Pt arrived in labor and declined SUN. [facility]. Jessica. Amputation 12/23/16;[facility]; RIGHT BELOW THE KNEE Family History Mother No problems noted. Father No problems noted. Brother No problems noted. Grandfather No problems noted. Grandfather No problems noted. Grandmother No problems noted. Grandmother No problems noted. Son No problems noted. Son No problems noted. Daughter No problems noted. Daughter No problems noted. Social History Smoking/Tobacco Use Status: Current every day Tobacco Type: cigarettes Smoking risk assessment performed?: Yes Alcohol Intake: current Alcohol Intake frequency: a few times a month Alcohol type: beer Drug use: Occasionally Substance use type: former substance user, crack/cocaine, heroin, amphetamines, opiates, IV drugs, methamphetamine and unknown Details: states last use was 3 months ago as of 09/07/24 Housing: house Do you feel safe at home: Yes Do you feel safe in your relationship?: Yes Additional Social history: pt states she is on methadone, states lives with father History History 4 Para 4 Hx # Term Pregnancies Multiple births Hx # Pregnancies Ectopic pregnancies AB induced Hx Number of Living Children 3 AB spontaneous Past Pregnancies Del. Date GA/Weeks # Preg Succ Route Wgt Sex Labor Lgth Anesthesia Location Prov Complic 12/28/20 25 Delivery Date: 12/28/20 Last Updated by: Roxanna Rocha LPN Patient transferred OB care to [facility]
[2024-10-01] MEDS: Erythromycin Ophth Oint 3.5 GM TUBE OP (12:32)
--- NOTE | 2024-10-01 12:39 | NUR.NOTE ---
Nursing Note: Rosa torres/Raffaele @ [facility]. Patient dose is 140mg, last given yesterday 09/30/24
[2024-10-01] MEDS: Methadone Liquid 10 MG/ML 140 MG PO (13:45)
== END 2024-10-01 13:48 | disposition home or self-care (01) ==
PROVIDERS: Emergency Provider Emergency Medicine; PCP Physician Assistant
DX: H01.004 Unspecified blepharitis left upper eyelid (principal); F11.10 Opioid abuse, uncomplicated; F17.210 Nicotine dependence, cigarettes, uncomplicated; Z86.74 Personal history of sudden cardiac arrest
CPT/HCPCS: 99283

== ENCOUNTER 2024-10-02 10:37 | Emergency (ER) | payer MEDICAID, SELFPAY ==
[2024-10-02 10:47] VITALS: BP 116/76; PULSE 64; RESP 14; TEMP 36.7; O2SAT 97
--- NOTE | 2024-10-02 11:00 | DI.RAD_ITS ---
Exam(s) XR FOOT LT COMPLETE EXAM: XR FOOT LT COMPLETE CLINICAL HISTORY: pain and swelling. TECHNIQUE: 2D digital imaging was performed. Three views. COMPARISON: MR MR LOWER EXTREMITY LT WO/W from 12/22/2022 FINDINGS: BONES: No acute fracture is present. No bony destructive lesion is seen. JOINTS: No dislocation present. SOFT TISSUE: Dorsal soft tissue swelling. No foreign body or abnormal gas collection. IMPRESSION: Soft tissue swelling The preliminary [facility] report was reviewed. DATA REPOSITORY: RADIATION DOSE DELIVERED:
--- NOTE | 2024-10-02 11:15 | W.ED.GENAD ---
Discharge Plan Disposition Patient Disposition: Home Condition: Stable Discharge Details Clinical Impression: Cellulitis of foot, left Primary Care Provider: Glenn Tinajero ED Provider: Tim Fitzpatrick Home Meds and New Rx's Prescriptions: New amoxicillin-pot clavulanate 875-125 mg tablet 1 tab PO BID Qty: 14 0RF Continued methadone 10 mg/mL Concentrate 140 mg PO DAILY Patient Comments: verified dose 10/01/24 w/[facility] Rx Instructions: CONFIRMED DOSE WITH [facility] 05/02/24 :120mg naloxone 4 mg/actuation spray,non-aerosol 4 mg intranasal Q2M PRNQty: 2 12RF Rx Instructions: spray 1 dose into ONE nostril; alternate nostrils w each dose until help arrives furosemide 20 mg tablet 20 mg PO DAILY PRN PRN (Reason: Edema) Patient Comments: 1 tablet by mouth once a day as needed TAKE ONE TABLET BY MOUTH EVERY DAY as needed for edema acetaminophen 500 mg tablet 1,000 mg PO Q6H PRNQty: 40 0RF ibuprofen 800 mg tablet 800 mg PO Q8H PRNQty: 15 0RF methylphenidate HCl 5 mg tablet 5 mg PO QPM Qty: 7 0RF methylphenidate HCl [Ritalin LA] 40 mg capsule,ER biphasic 50-50 40 mg PO QAM Qty: 7 0RF duloxetine 60 mg capsule,delayed release(DR/EC) 60 mg PO DAILY Qty: 30 0RF gabapentin 800 mg tablet 800 mg PO QID Qty: 28 0RF lamotrigine 50 mg tablet extended release 24hr 50 mg PO DAILY Qty: 30 0RF Discontinued acamprosate 333 mg tablet,delayed release (DR/EC) 666 mg PO TID Qty: 270 2RF Discharge Instructions Additional Instructions: Take the antibiotic as prescribed. Follow-up with your primary care provider especially if it still not improving. If you feel more ill or develop new symptoms such as high fevers return to the emergency department for reevaluation. HPI General Mode of arrival: ambulatory. Date/Time Provider Initiated Documentation: 10/02/24 10:54. Limitations to Documentation: no limitations. Information obtained by: patient. History of Present Illness 39 year old F presents to the emergency department with the chief complaint of missed methadone dose, left foot discomfort/swelling, described as moderate, Quality is described as aching, and is localized to the left and lower extremity. Patient reports no radiation. and it has been constant. No relieving factors improve symptom(s), No exacerbating factors reported . Patient notes no other symptoms.. Patient did receive the following treatments prior to arrival, none Related Data Home Medications ?Medication ?Instructions ?Recorded ?Confirmed methadone 10 mg/mL oral concentrate 140 mg PO DAILY 06/02/21 10/02/24 furosemide 20 mg tablet 20 mg PO DAILY PRN PRN Edema 12/03/22 10/02/24 naloxone 4 mg/actuation nasal spray 4 mg intranasal Q2M PRN #2 ea 12/25/22 10/02/24 acetaminophen 500 mg tablet 1,000 mg (2 x 500 mg) PO Q6H PRN 08/28/23 10/02/24 #40 tabs ibuprofen 800 mg tablet 800 mg PO Q8H PRN #15 tabs 08/28/23 10/02/24 duloxetine 60 mg capsule,delayed 60 mg PO DAILY #30 caps 09/08/24 10/02/24 release gabapentin 800 mg tablet 800 mg PO QID #28 tabs 09/08/24 10/02/24 lamotrigine 50 mg tablet,extended 50 mg PO DAILY #30 tabs 09/08/24 10/02/24 release 24 hr methylphenidate HCl 40 mg biphasic 40 mg PO QAM #7 caps 09/08/24 10/02/24 50-50 capsule,extended release (Ritalin LA) methylphenidate HCl 5 mg tablet 5 mg PO QPM #7 tabs 09/08/24 10/02/24 amoxicillin 875 mg-potassium 1 tab PO BID #14 tabs 10/02/24 clavulanate 125 mg tablet Previous Rx's ?Medication ?Instructions ?Recorded naloxone 4 mg/actuation nasal spray 4 mg intranasal Q2M PRN #2 ea 12/25/22 acetaminophen 500 mg tablet 1,000 mg (2 x 500 mg) PO Q6H PRN 08/28/23 #40 tabs ibuprofen 800 mg tablet 800 mg PO Q8H PRN #15 tabs 08/28/23 duloxetine 60 mg capsule,delayed 60 mg PO DAILY #30 caps 09/08/24 release gabapentin 800 mg tablet 800 mg PO QID #28 tabs 09/08/24 lamotrigine 50 mg tablet,extended 50 mg PO DAILY #30 tabs 09/08/24 release 24 hr methylphenidate HCl 40 mg biphasic 40 mg PO QAM #7 caps 09/08/24 50-50 capsule,extended release (Ritalin LA) methylphenidate HCl 5 mg tablet 5 mg PO QPM #7 tabs 09/08/24 amoxicillin 875 mg-potassium 1 tab PO BID #14 tabs 10/02/24 clavulanate 125 mg tablet Allergies Allergy/AdvReac Type Severity Reaction Status Date / Time bupropion HCl (From AdvReac Intermediate Contraindic Verified 10/02/24 10:51 Wellbutrin SR) ated General Stated Complaint: Recheck CELESTE: 4 Review of Systems All systems reviewed & are unremarkable except as noted in HPI and below Constitutional Constitutional: Denies chills, Denies fever(s) and Denies weakness Cardiovascular Cardiovascular: Denies chest pain and Denies dyspnea Respiratory Respiratory: Denies cough and Denies dyspnea Gastrointestinal Gastrointestinal: Denies abdominal pain, Denies nausea and Denies vomiting Musculoskeletal Musculoskeletal: Reports other (foot swelling) Neurologic Neurologic: Denies weakness Exam Const General: no acute distress Orientation: alert HENAL Head: normal to inspection Ears: external ears normal General nose exam: external nose normal Mouth: moist mucous membranes Eyes General: appearance normal, both eyes and all related structures Neck Neck: normal visual inspection Resp Effort & Inspection: normal respiratory effort and able to speak in complete sentences Cardio Rate: regular rate Skin General skin exam: erythema Neuro General: patient alert and patient oriented x3 Extrem General: full ROM and capillary refill normal Psych Mental Status: mental status grossly normal Course Vital Signs Vital signs: Vital Signs Temperature 36.7 C 10/02/24 10:47 Pulse 64 10/02/24 10:47 Respiratory Rate 14 10/02/24 10:47 Blood Pressure 116/76 10/02/24 10:47 Pulse Oximetry 97 10/02/24 10:47 Temperature 36.7 C 10/02/24 10:47 Temperature Source Oral 10/02/24 10:47 Pulse 64 10/02/24 10:47 Respiratory Rate 14 10/02/24 10:47 Blood Pressure 116/76 10/02/24 10:47 Blood Pressure Position Supine 10/02/24 10:47 Pulse Oximetry 97 10/02/24 10:47 Oxygen Delivery Method Room Air 10/02/24 10:47 Oxygen Flow Rate 0 10/02/24 10:47 Pain Level 8 10/02/24 10:47 Medical Decision Making 39-year-old female comes in with 2 complaints. The first is that she missed her methadone dose today as part is closed and she is currently getting housing from brother was unable to hot die picker her weekend doses so came here for evaluation. She also notes that over the last several days her left foot has had some discomfort and swelling. She denies any high fevers or known trauma. She is well-appearing on exam. She does have some dorsal foot swelling on the left with very faint erythema. There is no significant warmth. She has full range of motion of the ankle and toes. Intact sensation and pulses. I will order her dose of methadone which was confirmed yesterday to be 140 mg. Will also obtain x-ray to exclude underlying fracture. I suspect either arthritis or cellulitis. X-ray negative, patient stable. She was seen yesterday for blepharitis of her left eyelid which seemed to improve yesterday but she states she lost the erythromycin so I will refill this for her. I am also starting her on Augmentin for possible cellulitis of the left foot. She is stable for discharge home follow-up with her PCP, return precautions given Differential Diagnosis Differential Diagnosis: Arthritis, cellulitis Quality:SDOH Health Related Social Needs: Health related social needs house/econ circumstance lonely/isolated Health related social needs details patient utilizes the [facility] All Active Problems (Updated 10/02/24 @ 13:41 by Tim Fitzpatrick MD) Cellulitis of foot, left (Acute) Blepharitis (Acute) Alcohol abuse (Acute) Contusion of left lower leg, initial encounter (Acute) Mild tricuspid regurgitation (Chronic) Smoker (Acute) History of prior with IUGR (Acute 01/11/15) History of kidney injury (Acute 01/17/16) Acute January, History of drug abuse (Acute 01/17/16) In IP treatment at [facility], no longer on methadone as of 01/17/16. Family court is close to resolved - will end . She is expecting 1st daughter to come home. Insomnia (Acute) Anxiety (Chronic) Anemia (Chronic) Opioid dependence (Acute) Mitral regurgitation (Chronic) Medical History Cardiomyopathy (01/22/16) Hepatitis C IVDU (intravenous drug user) Methadone maintenance therapy patient Exhausted vascular access Left posterior fascicular block (LPFB) RBBB Closed head injury Cardiac arrest with successful resuscitation Pulmonary nodules Anemia Alcohol abuse Hx of cocaine abuse Personality disorder Herpes, vulvar PTSD (post-traumatic stress disorder) ADHD Subacute endocarditis (01/22/16) MSSA endocarditis January, HSV infection Hx of who one week after . ? HSV or H1N1 infection. Pt has been on prophylaxis with pregnancies. Depression difficulty bonding with 2nd child. child removed from her custody. was on Wellbutrin but had sz and not on meds at this time. has appt with counselor 03/2015 Surgical History section (11/24/12) PCD @ 35w. IUGR. NRFH. [id number]. [facility] [place]. 03/26/15 RCD. Pt arrived in labor and declined SUN. [facility]. Amputation 12/23/16;[facility]; RIGHT BELOW THE KNEE Family History Mother No problems noted. Father No problems noted. Brother No problems noted. Grandfather No problems noted. Grandfather No problems noted. Grandmother No problems noted. Grandmother No problems noted. Son No problems noted. Son No problems noted. Daughter No problems noted. Daughter No problems noted. Social History Smoking/Tobacco Use Status: Current every day Tobacco Type: cigarettes Smoking risk assessment performed?: Yes Alcohol Intake: current Alcohol Intake frequency: a few times a month Alcohol type: beer Drug use: Occasionally Substance use type: former substance user, crack/cocaine, heroin, amphetamines, opiates, IV drugs, methamphetamine and unknown Details: states last use was 3 months ago as of 09/07/24 Housing: house Do you feel safe at home: Yes Do you feel safe in your relationship?: Yes Additional Social history: pt states she is on methadone, states lives with father History History 4 Para 4 Hx # Term Pregnancies Multiple births Hx # Pregnancies Ectopic pregnancies AB induced Hx Number of Living Children 3 AB spontaneous Past Pregnancies Del. Date GA/Weeks # Preg Succ Route Wgt Sex Labor Lgth Anesthesia Location Prov Complic 12/28/20 25 Delivery Date: 12/28/20 Last Updated by: Roxanna Rocha LPN Patient transferred OB care to [facility]
[2024-10-02] MEDS: Gabapentin 800 MG TAB PO (11:33)
[2024-10-02] MEDS: Methylphenidate 10 MG TAB 40 MG PO (11:33)
[2024-10-02] MEDS: Methadone Liquid 10 MG/ML 140 MG PO (11:34)
--- NOTE | 2024-10-02 12:44 | DI.VRAD_ITS ---
PROCEDURE INFORMATION: Exam: XR Left Foot Exam date and time: 10/02/2024 11:57 AM Age: 39 years old Clinical indication: Other: Pain and swelling TECHNIQUE: Imaging protocol: Radiologic exam of the left foot. Views: 3 or more views. COMPARISON: MR LOWER JOINT LT WO 08/26/2023 11:27 AM FINDINGS: Bones/joints: Bipartite medial hallux sesamoid. Soft tissues: There is soft tissue swelling. IMPRESSION: No acute fracture or dislocation. Dictated and Authenticated by: Gamal Kat MD. Orderin Amari Dumont MD
[2024-10-02 13:28] VITALS: BP 135/81; PULSE 76; RESP 16; O2SAT 98
[2024-10-02] MEDS: Erythromycin Ophth Oint 3.5 GM TUBE OP (13:49)
[2024-10-02] MEDS: Amox. 875/Clav. 125, 2 TABS/BTL 1 TAB PO (13:49)
== END 2024-10-02 13:53 | disposition home or self-care (01) ==
PROVIDERS: Emergency Provider Emergency Medicine; PCP Physician Assistant
DX: L03.116 Cellulitis of left lower limb (principal); F11.90 Opioid use, unspecified, uncomplicated
CPT/HCPCS: 99283; 99284; 73630

== ENCOUNTER 2024-10-04 11:34 | Emergency (ER) | payer MEDICAID, SELFPAY ==
[2024-10-04 11:35] VITALS: BP 107/67; PULSE 71; RESP 16; TEMP 36.8; O2SAT 93
--- NOTE | 2024-10-04 12:10 | W.ED.GENAD ---
Discharge Plan Disposition Patient Disposition: Home Condition: Stable Discharge Details Clinical Impression: Cellulitis of left foot Primary Care Provider: Glenn Tinajero ED Provider: Theodore Pink Home Meds and New Rx's Prescriptions: New clindamycin HCl [Cleocin HCl] 150 mg capsule 450 mg PO TID 10 Days Qty: 90 0RF Continued methadone 10 mg/mL Concentrate 140 mg PO DAILY Patient Comments: verified dose 10/01/24 w/[facility] Rx Instructions: CONFIRMED DOSE WITH [facility] 05/02/24 :120mg naloxone 4 mg/actuation spray,non-aerosol 4 mg intranasal Q2M PRNQty: 2 12RF Rx Instructions: spray 1 dose into ONE nostril; alternate nostrils w each dose until help arrives furosemide 20 mg tablet 20 mg PO DAILY PRN PRN (Reason: Edema) Patient Comments: 1 tablet by mouth once a day as needed TAKE ONE TABLET BY MOUTH EVERY DAY as needed for edema acetaminophen 500 mg tablet 1,000 mg PO Q6H PRNQty: 40 0RF ibuprofen 800 mg tablet 800 mg PO Q8H PRNQty: 15 0RF methylphenidate HCl 5 mg tablet 5 mg PO QPM Qty: 7 0RF methylphenidate HCl [Ritalin LA] 40 mg capsule,ER biphasic 50-50 40 mg PO QAM Qty: 7 0RF duloxetine 60 mg capsule,delayed release(DR/EC) 60 mg PO DAILY Qty: 30 0RF gabapentin 800 mg tablet 800 mg PO QID Qty: 28 0RF lamotrigine 50 mg tablet extended release 24hr 50 mg PO DAILY Qty: 30 0RF amoxicillin-pot clavulanate 875-125 mg tablet 1 tab PO BID Qty: 14 0RF Discharge Instructions Instructions: Cellulitis (Skin Infection), Adult ED Additional Instructions: You were seen in the emergency department for the cellulitis of your left foot. I think you need to keep taking your Augmentin that was prescribed at prior visit but I am adding clindamycin to cover MRSA, please return for any failure to improve, signs of systemic infection like fever, nausea, shakes or other emergent concerns. Referrals: Glenn Tinajero [Primary Care Provider, Medicine] Discharge Data Discharge Date/Time-TO BE ENTERED AT DEPARTURE: 10/04/24 12:44 HPI General Date/Time Provider Initiated Documentation: 10/04/24 11:38. HPI Narrative: 39 year-old female presents to ED today by POV/ambulating with a chief complaint of L foot swelling, tenderness, redness with onset 4 days ago- started on Augmentin for cellulitis here. Quality described as tender to touch, swells worse as she's up and walking on it, no radiation to drainage of pus, fever, red streaking, nausea. Severity is described as moderate. Palliating factors include nothing specific. Provoking factors include nothing specific. Events leading up to the incident/Associated Symptoms: Patient has a contralateral BKA and does not want this infection to progress. Patient not anticoagulated. Related Data Home Medications ?Medication ?Instructions ?Recorded ?Confirmed methadone 10 mg/mL oral concentrate 140 mg PO DAILY 06/02/21 10/04/24 furosemide 20 mg tablet 20 mg PO DAILY PRN PRN Edema 12/03/22 10/04/24 naloxone 4 mg/actuation nasal spray 4 mg intranasal Q2M PRN #2 ea 12/25/22 10/04/24 acetaminophen 500 mg tablet 1,000 mg (2 x 500 mg) PO Q6H PRN 08/28/23 10/04/24 #40 tabs ibuprofen 800 mg tablet 800 mg PO Q8H PRN #15 tabs 08/28/23 10/04/24 duloxetine 60 mg capsule,delayed 60 mg PO DAILY #30 caps 09/08/24 10/04/24 release gabapentin 800 mg tablet 800 mg PO QID #28 tabs 09/08/24 10/04/24 lamotrigine 50 mg tablet,extended 50 mg PO DAILY #30 tabs 09/08/24 10/04/24 release 24 hr methylphenidate HCl 40 mg biphasic 40 mg PO QAM #7 caps 09/08/24 10/04/24 50-50 capsule,extended release (Ritalin LA) methylphenidate HCl 5 mg tablet 5 mg PO QPM #7 tabs 09/08/24 10/04/24 amoxicillin 875 mg-potassium 1 tab PO BID #14 tabs 10/02/24 10/04/24 clavulanate 125 mg tablet clindamycin HCl 150 mg capsule 450 mg (3 x 150 mg) PO TID 10/04/24 (Cleocin HCl) cellulitis 10 days #90 caps Previous Rx's ?Medication ?Instructions ?Recorded naloxone 4 mg/actuation nasal spray 4 mg intranasal Q2M PRN #2 ea 12/25/22 acetaminophen 500 mg tablet 1,000 mg (2 x 500 mg) PO Q6H PRN 08/28/23 #40 tabs ibuprofen 800 mg tablet 800 mg PO Q8H PRN #15 tabs 08/28/23 duloxetine 60 mg capsule,delayed 60 mg PO DAILY #30 caps 09/08/24 release gabapentin 800 mg tablet 800 mg PO QID #28 tabs 09/08/24 lamotrigine 50 mg tablet,extended 50 mg PO DAILY #30 tabs 09/08/24 release 24 hr methylphenidate HCl 40 mg biphasic 40 mg PO QAM #7 caps 09/08/24 50-50 capsule,extended release (Ritalin LA) methylphenidate HCl 5 mg tablet 5 mg PO QPM #7 tabs 09/08/24 amoxicillin 875 mg-potassium 1 tab PO BID #14 tabs 10/02/24 clavulanate 125 mg tablet clindamycin HCl 150 mg capsule 450 mg (3 x 150 mg) PO TID 10/04/24 (Cleocin HCl) cellulitis 10 days #90 caps Allergies Allergy/AdvReac Type Severity Reaction Status Date / Time bupropion HCl (From AdvReac Intermediate Contraindic Verified 10/04/24 11:38 Wellbutrin SR) ated General Stated Complaint: Cellulitis CELESTE: 3 Review of Systems All systems reviewed & are unremarkable except as noted in HPI and below Exam Narrative Exam Narrative: GENERAL APPEARANCE: Well-nourished, non-toxic, awake and alert, atraumatic, no acute distress. SKIN: Warm, pink, dry, mild swelling and pink erythema to L foot diffusely without fluctuant swelling, drainage. brisk capillary refill, ROM intact, no pain with passive ROM HEAD: Normocephalic, atraumatic, normal hair distribution for gender/age. EYES: Normal conjunctiva, no exudates on lids/lashes. ENT: Nares patent, no circumoral cyanosis, no facial swelling NECK: Supple, trachea midline, painless cervical ROM. LUNGS/CHEST: Non-labored respirations, normal A/P diameter, symmetrical expansion, no chest wall deformity HEART (CV/PV): No peripheral edema, no JVD. ABDOMEN: Soft, non-distended, no guarding. MSK: Normal ROM, no swelling/deformity to bilateral UEs or L LE- R LE BKA, moving all extremities without weakness, no cyanosis, spine midline without tenderness, normal curvature. NEURO: Mental Status AAOx4 - alert to person, place, time, events No facial droop, no forehead involvement. Motor: No focal weakness Sensory: sensation intact to light touch globally. Gait normal: patient ambulated without ataxia into ED room. PSYCH: euthymic, cooperative, pleasant, appropriate speech Course Vital Signs Vital signs: Vital Signs Temperature 36.8 C 10/04/24 11:35 Pulse 71 10/04/24 11:35 Respiratory Rate 16 10/04/24 11:35 Blood Pressure 107/67 10/04/24 11:35 Pulse Oximetry 93 10/04/24 11:35 Temperature 36.8 C 10/04/24 11:35 Temperature Source Oral 10/04/24 11:35 Pulse 71 10/04/24 11:35 Respiratory Rate 16 10/04/24 11:35 Blood Pressure 107/67 10/04/24 11:35 Blood Pressure Position Sitting 10/04/24 11:35 Pulse Oximetry 93 10/04/24 11:35 Pain Level 7 10/04/24 11:35 Medical Decision Making This dictation utilizes [id number] dictation software and may contain unedited grammatical errors. 39 year-old female presents to ED today by POV/ambulating with a chief complaint of L foot swelling, tenderness, redness with onset 4 days ago- started on Augmentin for cellulitis here. Quality described as tender to touch, swells worse as she's up and walking on it, no radiation to drainage of pus, fever, red streaking, nausea. Severity is described as moderate. Palliating factors include nothing specific. Provoking factors include nothing specific. Events leading up to the incident/Associated Symptoms: Patient has a contralateral BKA and does not want this infection to progress. Patients' medical history: Cardiomyopathy, IVD use, hepatitis C, methadone patient, alcohol abuse, cocaine abuse, endocarditis. Pertinent exam findings / vital signs include diffuse mild swelling to the left foot, no jacob erythema or lymphadenitis, no drainage of pus from any wounds, no open lesions. Differential / pathologies of concern include cellulitis, abscess unlikely. Diagnostic studies of: -None. Interventions of: -Added Rx for clindamycin. ED Course/Assessment/Plan: 39-year-old female presents with left foot infection seen a few days ago for cellulitis started on Augmentin, has no fevers or systemic symptoms since then but noticed that the swelling is not improving, she has contralateral BKA due to infection and does not want this leg to end up the same. I did start her on clindamycin to cover for MRSA with her history and risk factors, stressed strict return criteria for worsening signs of infection for imaging at that time, patient engaged in shared decision making and verbalized understanding. Findings not consistent with neurovascular compromise, sepsis. Disposition of cellulitis of left foot. Medical Records Medical records reviewed: Yes I reviewed the patient's medical records. Quality:SDOH Health Related Social Needs: Health related social needs house/econ circumstance lonely/isolated Health related social needs details patient utilizes the [facility] All Active Problems (Updated 10/04/24 @ 12:15 by CHARLIE Park) Cellulitis of left foot (Acute) Cellulitis of foot, left (Acute) Blepharitis (Acute) Alcohol abuse (Acute) Contusion of left lower leg, initial encounter (Acute) Mild tricuspid regurgitation (Chronic) Smoker (Acute) History of prior with IUGR (Acute 01/11/15) History of kidney injury (Acute 01/17/16) Acute January, History of drug abuse (Acute 01/17/16) In IP treatment at [place], no longer on methadone as of 01/17/16. Family court is close to resolved - will end . She is expecting 1st daughter to come home. Insomnia (Acute) Anxiety (Chronic) Anemia (Chronic) Opioid dependence (Acute) Mitral regurgitation (Chronic) Medical History Cardiomyopathy (01/22/16) Hepatitis C IVDU (intravenous drug user) Methadone maintenance therapy patient Exhausted vascular access Left posterior fascicular block (LPFB) RBBB Closed head injury Cardiac arrest with successful resuscitation Pulmonary nodules Anemia Alcohol abuse Hx of cocaine abuse Personality disorder Herpes, vulvar PTSD (post-traumatic stress disorder) ADHD Subacute endocarditis (01/22/16) MSSA endocarditis January, HSV infection Hx of infant who one week after . ? HSV or H1N1 infection. Pt has been on prophylaxis with pregnancies. Depression difficulty bonding with 2nd child. child removed from her custody. was on Wellbutrin but had sz and not on meds at this time. has appt with counselor 03/2015 Surgical History section (11/24/12) PCD @ 35w. IUGR. NRFH. [id number]. [facility] [place]. 03/26/15 RCD. Pt arrived in labor and declined SUN. [facility]. [facility]. Amputation 12/23/16;[facility]; RIGHT BELOW THE KNEE Family History Mother No problems noted. Father No problems noted. Brother No problems noted. Grandfather No problems noted. Grandfather No problems noted. Grandmother No problems noted. Grandmother No problems noted. Son No problems noted. Son No problems noted. Daughter No problems noted. Daughter No problems noted. Social History Smoking/Tobacco Use Status: Current every day Tobacco Type: cigarettes Smoking risk assessment performed?: Yes Alcohol Intake: current Alcohol Intake frequency: a few times a month Alcohol type: beer Drug use: Occasionally Substance use type: former substance user, crack/cocaine, heroin, amphetamines, opiates, IV drugs, methamphetamine and unknown Details: states last use was 3 months ago as of 09/07/24 Housing: house Do you feel safe at home: Yes Do you feel safe in your relationship?: Yes Additional Social history: pt states she is on methadone, states lives with father History History 4 Para 4 Hx # Term Pregnancies Multiple births Hx # Pregnancies Ectopic pregnancies AB induced Hx Number of Living Children 3 AB spontaneous Past Pregnancies Del. Date GA/Weeks # Preg Succ Route Wgt Sex Labor Lgth Anesthesia Location Prov Complic 12/28/20 25 Delivery Date: 12/28/20 Last Updated by: Roxanna Rocha LPN [facility]
[2024-10-04 12:23] VITALS: BP 109/63; PULSE 69; RESP 16; TEMP 36; O2SAT 96
[2024-10-04] MEDS: Methylphenidate 10 MG TAB 40 MG PO (12:40)
[2024-10-04] MEDS: Gabapentin 400 MG CAP 800 MG PO (12:40)
== END 2024-10-04 12:44 | disposition home or self-care (01) ==
PROVIDERS: Emergency Provider Physician Assistant; PCP Physician Assistant
DX: L03.116 Cellulitis of left lower limb (principal)
CPT/HCPCS: 99283 ×2

== ENCOUNTER 2024-10-20 17:50 | Outpatient (REF) | payer MEDICAID, SELFPAY ==
[2024-10-20 19:40] LABS: Cannabinoids THC Negative (Negative); METHADONE URINE SCREEN Positive (Negative)
== END 2024-10-20 17:51 | disposition home or self-care (01) ==
LOC: NCHCN 17:50
PROVIDERS: PCP Physician Assistant; Visit Provider Physician Assistant
DX: Z79.899 Other long term (current) drug therapy (principal)
CPT/HCPCS: 80307

== ENCOUNTER 2024-10-25 10:06 | Emergency (ER) | payer MEDICAID, SELFPAY ==
[2024-10-25 10:13] VITALS: BP 137/81; PULSE 77; RESP 12; TEMP 36.6; O2SAT 94
--- NOTE | 2024-10-25 10:19 | W.ED.GENAD ---
Discharge Plan Discharge Details Chief Complaint: Orthopedic Primary Care Provider: Glenn Tinajero ED Provider: Theodore Pink Home Meds and New Rx's Prescriptions: No Action methadone 10 mg/mL Concentrate 140 mg PO DAILY Patient Comments: verified dose 10/01/24 w/[facility] Rx Instructions: CONFIRMED DOSE WITH [facility] 05/02/24 :120mg naloxone 4 mg/actuation spray,non-aerosol 4 mg intranasal Q2M PRNQty: 2 12RF Rx Instructions: spray 1 dose into ONE nostril; alternate nostrils w each dose until help arrives aripiprazole 5 mg tablet 5 mg PO DAILY Patient Comments: TAKE ONE TABLET BY MOUTH EVERY DAY furosemide 20 mg tablet 20 mg PO DAILY PRN PRN (Reason: Edema) Patient Comments: 1 tablet by mouth once a day as needed TAKE ONE TABLET BY MOUTH EVERY DAY as needed for edema acetaminophen 500 mg tablet 1,000 mg PO Q6H PRNQty: 40 0RF ibuprofen 800 mg tablet 800 mg PO Q8H PRNQty: 15 0RF methylphenidate HCl 5 mg tablet 5 mg PO QPM Qty: 7 0RF methylphenidate HCl [Ritalin LA] 40 mg capsule,ER biphasic 50-50 40 mg PO QAM Qty: 7 0RF duloxetine 60 mg capsule,delayed release(DR/EC) 60 mg PO DAILY Qty: 30 0RF gabapentin 800 mg tablet 800 mg PO QID Qty: 28 0RF lamotrigine 50 mg tablet extended release 24hr 50 mg PO DAILY Qty: 30 0RF HPI General Date/Time Provider Initiated Documentation: 10/25/24 10:10. HPI Narrative: [ ] year-old [ ] presents to ED today by [ ] with a chief complaint of [ ] with onset [ ]. Quality described as [ ], [ ] radiation to [ ]. Severity is described as [ ]/10. Palliating factors include [ ]. Provoking factors include [ ]. Events leading up to the incident/Associated Symptoms: [ ]. Patient [ ] anticoagulated. Related Data Home Medications ?Medication ?Instructions ?Recorded ?Confirmed methadone 10 mg/mL oral concentrate 140 mg PO DAILY 06/02/21 10/25/24 furosemide 20 mg tablet 20 mg PO DAILY PRN PRN Edema 12/03/22 10/25/24 naloxone 4 mg/actuation nasal spray 4 mg intranasal Q2M PRN #2 ea 12/25/22 10/25/24 acetaminophen 500 mg tablet 1,000 mg (2 x 500 mg) PO Q6H PRN 08/28/23 10/25/24 #40 tabs ibuprofen 800 mg tablet 800 mg PO Q8H PRN #15 tabs 08/28/23 10/25/24 duloxetine 60 mg capsule,delayed 60 mg PO DAILY #30 caps 09/08/24 10/25/24 release gabapentin 800 mg tablet 800 mg PO QID #28 tabs 09/08/24 10/25/24 lamotrigine 50 mg tablet,extended 50 mg PO DAILY #30 tabs 09/08/24 10/25/24 release 24 hr methylphenidate HCl 40 mg biphasic 40 mg PO QAM #7 caps 09/08/24 10/25/24 50-50 capsule,extended release (Ritalin LA) methylphenidate HCl 5 mg tablet 5 mg PO QPM #7 tabs 09/08/24 10/25/24 aripiprazole 5 mg tablet 5 mg PO DAILY 10/25/24 10/25/24 Previous Rx's ?Medication ?Instructions ?Recorded naloxone 4 mg/actuation nasal spray 4 mg intranasal Q2M PRN #2 ea 12/25/22 acetaminophen 500 mg tablet 1,000 mg (2 x 500 mg) PO Q6H PRN 08/28/23 #40 tabs ibuprofen 800 mg tablet 800 mg PO Q8H PRN #15 tabs 08/28/23 duloxetine 60 mg capsule,delayed 60 mg PO DAILY #30 caps 09/08/24 release gabapentin 800 mg tablet 800 mg PO QID #28 tabs 09/08/24 lamotrigine 50 mg tablet,extended 50 mg PO DAILY #30 tabs 09/08/24 release 24 hr methylphenidate HCl 40 mg biphasic 40 mg PO QAM #7 caps 09/08/24 50-50 capsule,extended release (Ritalin LA) methylphenidate HCl 5 mg tablet 5 mg PO QPM #7 tabs 09/08/24 Allergies Allergy/AdvReac Type Severity Reaction Status Date / Time bupropion HCl (From AdvReac Intermediate Contraindic Verified 10/25/24 10:15 Wellbutrin SR) ated General Stated Complaint: Orthopedic CELESTE: 4 Review of Systems All systems reviewed & are unremarkable except as noted in HPI and below Exam Narrative Exam Narrative: GENERAL APPEARANCE: Well-nourished, non-toxic, awake and alert, atraumatic, no acute distress. SKIN: Warm, pink, dry, intact, without rashes/lesions/ulcerations. HEAD: Normocephalic, atraumatic, normal hair distribution for gender/age. EYES: Normal conjunctiva, no exudates on lids/lashes. ENT: Nares patent, no circumoral cyanosis, no facial swelling NECK: Supple, trachea midline, painless cervical ROM. LUNGS/CHEST: Lungs CTA bilaterally, non-labored respirations, normal A/P diameter, symmetrical expansion, no chest wall deformity HEART (CV/PV): Regular rate and rhythm without murmur, no peripheral edema, no JVD. ABDOMEN: Soft, non-distended, no guarding. MSK: Normal ROM, no swelling/deformity to bilateral UEs or LEs, moving all extremities without weakness, no cyanosis, spine midline without tenderness, normal curvature. NEURO: Mental Status AAOx4 - alert to person, place, time, events No facial droop, no forehead involvement. Motor: No focal weakness - strength 5/5 in bilateral UEs and LEs, proximal and distal, symmetric. Sensory: sensation intact to light touch globally. Gait normal: patient ambulated without ataxia into ED room. PSYCH: euthymic, cooperative, pleasant, appropriate speech Course Vital Signs Vital signs: Vital Signs Temperature 36.6 C 10/25/24 10:13 Pulse 77 10/25/24 10:13 Respiratory Rate 12 10/25/24 10:13 Blood Pressure 137/81 10/25/24 10:13 Pulse Oximetry 94 10/25/24 10:13 Temperature 36.6 C 10/25/24 10:13 Temperature Source Oral 10/25/24 10:13 Pulse 77 10/25/24 10:13 Respiratory Rate 12 10/25/24 10:13 Blood Pressure 137/81 10/25/24 10:13 Blood Pressure Position Sitting 10/25/24 10:13 Pulse Oximetry 94 10/25/24 10:13 Oxygen Delivery Method Room Air 10/25/24 10:13 Oxygen Flow Rate 0 10/25/24 10:13 Medical Decision Making This dictation utilizes [id number] dictation software and may contain unedited grammatical errors. [ ]. Patients' medical history: [ ]. Family and social history: [ ]. Pertinent exam findings / vital signs include [ ]. Differential / pathologies of concern include [ ]. Diagnostic studies of: -[ ]. Interventions of: -[ ]. ED Course/Assessment/Plan: [ ]. Findings not consistent with [ ]. Disposition of [ ]. Patient verbalized understanding of the plan and return to ED criteria and engaged in shared decision making. Medical Records Medical records reviewed: Yes I reviewed the patient's medical records. Quality:SDOH Health Related Social Needs: Health related social needs house/econ circumstance lonely/isolated Health related social needs details patient utilizes the [facility] All Active Problems (Updated 10/04/24 @ 12:15 by CHARLIE Park) Cellulitis of left foot (Acute) Cellulitis of foot, left (Acute) Blepharitis (Acute) Alcohol abuse (Acute) Contusion of left lower leg, initial encounter (Acute) Mild tricuspid regurgitation (Chronic) Smoker (Acute) History of prior with IUGR (Acute 01/11/15) History of kidney injury (Acute 01/17/16) Acute January, History of drug abuse (Acute 01/17/16) In IP treatment at [place], no longer on methadone as of 01/17/16. Family court is close to resolved - will end . She is expecting 1st daughter to come home. Insomnia (Acute) Anxiety (Chronic) Anemia (Chronic) Opioid dependence (Acute) Mitral regurgitation (Chronic) Medical History Cardiomyopathy (01/22/16) Hepatitis C IVDU (intravenous drug user) Methadone maintenance therapy patient Exhausted vascular access Left posterior fascicular block (LPFB) RBBB Closed head injury Cardiac arrest with successful resuscitation Pulmonary nodules Anemia Alcohol abuse Hx of cocaine abuse Personality disorder Herpes, vulvar PTSD (post-traumatic stress disorder) ADHD Subacute endocarditis (01/22/16) MSSA endocarditis January, HSV infection Hx of who one week after . ? HSV or H1N1 infection. Pt has been on prophylaxis with pregnancies. Depression difficulty bonding with 2nd child. child removed from her custody. was on Wellbutrin but had sz and not on meds at this time. has appt with counselor 03/2015 Surgical History section (11/24/12) PCD @ 35w. IUGR. NRFH. [id number]. [facility]. 03/26/15 RCD. Pt arrived in labor and declined SUN. [facility]. Jessica. Amputation 12/23/16;[facility]; RIGHT BELOW THE KNEE Family History Mother No problems noted. Father No problems noted. Brother No problems noted. Grandfather No problems noted. Grandfather No problems noted. Grandmother No problems noted. Grandmother No problems noted. Son No problems noted. Son No problems noted. Daughter No problems noted. Daughter No problems noted. Social History Smoking/Tobacco Use Status: Current every day Tobacco Type: cigarettes Smoking risk assessment performed?: Yes Alcohol Intake: current Alcohol Intake frequency: a few times a month Alcohol type: beer Drug use: Occasionally Substance use type: former substance user, crack/cocaine, heroin, amphetamines, opiates, IV drugs, methamphetamine and unknown Details: states last use was 3 months ago as of 09/07/24 Housing: house Do you feel safe at home: Yes Do you feel safe in your relationship?: Yes Additional Social history: pt states she is on methadone, states lives with father History History 4 Para 4 Hx # Term Pregnancies Multiple births Hx # Pregnancies Ectopic pregnancies AB induced Hx Number of Living Children 3 AB spontaneous Past Pregnancies Del. Date GA/Weeks # Preg Succ Route Wgt Sex Labor Lgth Anesthesia Location Prov Complic 12/28/20 25 Delivery Date: 12/28/20 Last Updated by: Roxanna Rocha LPN Patient transferred OB care to [facility]
== END 2024-10-25 10:39 | disposition left against medical advice (07) ==
PROVIDERS: PCP Physician Assistant
DX: Z53.21 Procedure and treatment not carried out due to patient leaving prior to being seen by health care provider (principal)
CPT/HCPCS: 99024

== ENCOUNTER 2024-11-03 12:27 | Emergency (ER) | payer MEDICAID, SELFPAY ==
[2024-11-03 12:30] VITALS: BP 141/86; PULSE 57; RESP 16; TEMP 36.6; O2SAT 98
--- NOTE | 2024-11-03 12:36 | ED.GENADUL_ITS ---
Discharge Plan Disposition Patient Disposition: Home Condition: Good Discharge Details Clinical Impression: Pain of right scapula Primary Care Provider: Glenn Tinajero ED Provider: Theodore Leyva Home Meds and New Rx's Prescriptions: New cyclobenzaprine 10 mg tablet 10 mg PO TID Qty: 14 0RF lidocaine [Lidoderm] 5 % adhesive patch,medicated 1 patch Topical Q24H Qty: 15 0RF No Action methadone 10 mg/mL Concentrate 140 mg PO DAILY Patient Comments: verified dose 10/01/24 w/[facility] Rx Instructions: CONFIRMED DOSE WITH [facility] 05/02/24 :120mg naloxone 4 mg/actuation spray,non-aerosol 4 mg intranasal Q2M PRNQty: 2 12RF Rx Instructions: spray 1 dose into ONE nostril; alternate nostrils w each dose until help arrives aripiprazole 5 mg tablet 5 mg PO DAILY Patient Comments: TAKE ONE TABLET BY MOUTH EVERY DAY furosemide 20 mg tablet 20 mg PO DAILY PRN PRN (Reason: Edema) Patient Comments: 1 tablet by mouth once a day as needed TAKE ONE TABLET BY MOUTH EVERY DAY as needed for edema acetaminophen 500 mg tablet 1,000 mg PO Q6H PRNQty: 40 0RF ibuprofen 800 mg tablet 800 mg PO Q8H PRNQty: 15 0RF methylphenidate HCl 5 mg tablet 5 mg PO QPM Qty: 7 0RF methylphenidate HCl [Ritalin LA] 40 mg capsule,ER biphasic 50-50 40 mg PO QAM Qty: 7 0RF duloxetine 60 mg capsule,delayed release(DR/EC) 60 mg PO DAILY Qty: 30 0RF gabapentin 800 mg tablet 800 mg PO QID Qty: 28 0RF lamotrigine 50 mg tablet extended release 24hr 50 mg PO DAILY Qty: 30 0RF Discharge Instructions Instructions: Shoulder Pain ED Additional Instructions: At this time your x-ray shows no evidence of fracture or deformity for your chest or scapula. Your symptoms appear consistent with a spasm of your trapezius muscle in your rhomboid major and minor muscles. This is likely secondary to the position that you are in while sleeping on the couch with your daughter last night. Please apply the Lidoderm patches as prescribed. Please use ice and heat to your back to help with the spasm. Please take the muscle relaxant as prescribed. It can make you quite sleepy. Make sure not to operate firearms, drive, operate heavy equipment, swim, or climb ladders. If you notice any worsening of your symptoms, or any new symptoms such as vomiting, diarrhea, fever, chills, shortness of breath, chest pain, numbness, weakness, or fainting , please return immediately to the emergency department for reevaluation. Please follow up with your primary care provider as soon as possible for reassessment and reevaluation. As always, it was a pleasure participating in your medical care today. Referrals: Glenn Tinajero [Primary Care Provider, Medicine] [facility] General Date/Time Provider Initiated Documentation: 11/03/24 12:36 . HPI Narrative: This is a 39-year-old female with a history of IV drug abuse, endocarditis, cardiomyopathy, MRSA, anxiety and depression, hepatitis, HSV, previous amputation of the right lower extremity secondary to IV drug abuse, who states that she has not used for the last 5 months, who presents today for right shoulder pain. Patient states that she slept on the couch with her daughter last night when she woke up she is mildly sore behind the right scapula, then as the day went on it became more tense and spasmed. She denies fever or chills. She denies any trauma. She denies any headache, chest pain or shortness of breath. No other complaints at this time. No swelling in the extremities that is atypical. No warmth or redness. No injections in that area. No other complaints Related Data Home Medications ?Medication ?Instructions ?Recorded ?Confirmed methadone 10 mg/mL oral concentrate 140 mg PO DAILY 11/03/24 furosemide 20 mg tablet 20 mg PO DAILY PRN PRN Edema 12/03/22 11/03/24 naloxone 4 mg/actuation nasal spray 4 mg intranasal Q2 M PRN #2 ea 12/25/22 11/03/24 acetaminophen 500 mg tablet 1,000 mg (2 x 500 mg) PO Q 6H PRN 08/28/23 11/03/24 #40 tabs ibuprofen 800 mg tablet 800 mg PO Q8H PRN #15 tabs 0 08/28/23 11/03/24 duloxetine 60 mg capsule,delayed 60 mg PO DAILY #30 ca ps 09/08/24 11/03/24 release gabapentin 800 mg tablet 800 mg PO QID #28 tabs 09/0811/03/24 lamotrigine 50 mg tablet,extended 50 mg PO DAILY #30 t abs 09/08/24 11/03/24 release 24 hr methylphenidate HCl 40 mg biphasic 40 mg PO QAM #7 cap s 09/08/24 11/03/24 50-50 capsule,extended release (Ritalin LA) methylphenidate HCl 5 mg tablet 5 mg PO QPM #7 tabs 11/03/24 aripiprazole 5 mg tablet 5 mg PO DAILY 10/25/2411/03 cyclobenzaprine 10 mg tablet 10 mg PO TID #14 tabs lidocaine 5 % topical patch 1 patch topical Q24H #15 e a 11/03/24 (Lidoderm) Previous Rx's ?Medication ?Instructions ?Recorded naloxone 4 mg/actuation nasal spray 4 mg intranasal Q2 M PRN #2 ea 12/25/22 acetaminophen 500 mg tablet 1,000 mg (2 x 500 mg) PO Q 6H PRN 08/28/23 #40 tabs ibuprofen 800 mg tablet 800 mg PO Q8H PRN #15 tabs 0 08/28/23 duloxetine 60 mg capsule,delayed 60 mg PO DAILY #30 ca ps 09/08/24 release gabapentin 800 mg tablet 800 mg PO QID #28 tabs 09/08 lamotrigine 50 mg tablet,extended 50 mg PO DAILY #30 t abs 09/08/24 release 24 hr methylphenidate HCl 40 mg biphasic 40 mg PO QAM #7 cap s 09/08/24 50-50 capsule,extended release (Ritalin LA) methylphenidate HCl 5 mg tablet 5 mg PO QPM #7 tabs cyclobenzaprine 10 mg tablet 10 mg PO TID #14 tabs lidocaine 5 % topical patch 1 patch topical Q24H #15 e a 11/03/24 (Lidoderm) Allergies Allergy/AdvReac Type Severity Reaction Status Date / Time bupropion HCl (From AdvReac Intermediate Contraindic Verified 11/03/24 12:32 Wellbutrin SR) ated General Stated Complaint: Orthopedic CELESTE: 4 Exam Narrative Exam Narrative: 1.Const: Well-nourished, Well-developed, appearing stated age 2.Eyes: PERRL, no conjunctival injection, and symmetrical lids. 3.ENT: Atraumatic external nose and ears. Moist MM. Neck: Symmetric, trachea midline, No thyromegaly. 4.CVS: +S1/S2, Peripheral pulses 2+ and equal in all extremities. Brisk capillary refill in all extremities. 5.RESP: Unlabored respiratory effort. Clear to auscultation bilaterally. No wheezes rales or rhonchi 6.GI: Soft, Nontender/Nondistended, No hepatosplenomegaly. No guarding or rebound. 7.MSK: Normocephalic/Atraumatic, Extremities w/o deformity or ttp No cyanosis or clubbing, Normal movement of all extremities. Patient demonstrates good range of motion for the right upper extremity, however she does have notable spasm over the rhomboid major and rhomboid minor musculature, as well as the medial component of the trapezius muscle. No tenderness for the supraspinatus or infraspinatus areas. No midline cervical thoracic or lumbar spine tenderness. No tenderness on the ribs themselves. No warmth or redness in the shoulder or back to suggest cellulitis or abscess. No rash to suggest shingles. No other abnormalities. 8.Skin: Warm, Dry. No rashes or lesions. 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 Sensation grossly intact, no focal neurologic deficits. 10.Psych: (AAO) x3. Appropriate mood and affect Course Vital Signs Vital signs: Vital Signs Temperature 36.6 C 11/03/24 12:30 Pulse 57 L 11/03/24 12:30 Respiratory Rate 16 11/03/24 12:30 Blood Pressure 141/86 H 11/03/24 12:30 Pulse Oximetry 98 11/03/24 12:30 Temperature 36.6 C 11/03/24 12:30 Pulse 57 L 11/03/24 12:30 Respiratory Rate 16 11/03/24 12:30 Blood Pressure 141/86 H 11/03/24 12:30 Pulse Oximetry 98 11/03/24 12:30 Pain Level 8 11/03/24 12:30 Medical Decision Making This is a 39-year-old female with a history of IV drug abuse, endocarditis, cardiomyopathy, MRSA, anxiety and depression, hepatitis, HSV, previous amputation of the right lower extremity secondary to IV drug abuse, who states that she has not used for the last 5 months, who presents today for right shoulder pain. Patient states that she slept on the couch with her daughter last night when she woke up she is mildly sore behind the right scapula, then as the day went on it became more tense and spasmed. She denies fever or chills. She denies any trauma. She denies any headache, chest pain or shortness of breath. No other complaints at this time. No swelling in the extremities that is atypical. No warmth or redness. No injections in that area. No other complaints Patient demonstrates good range of motion for the right upper extremity, however she does have notable spasm over the rhomboid major and rhomboid minor musculature, as well as the medial component of the trapezius muscle. No tenderness for the supraspinatus or infraspinatus areas. No midline cervical thoracic or lumbar spine tenderness. No tenderness on the ribs themselves. No warmth or redness in the shoulder or back to suggest cellulitis or abscess. No rash to suggest shingles. No other abnormalities. Patient has no tachycardia or fever to suggest systemic infection, no pain in his shoulder to suggest septic arthritis. She denies any injections over the last 5 to 6 months. Low likelihood for traveling abscess or infectious component. X-ray was ordered and shows no evidence of bony abnormality, large parapneumonic abscess, pneumothorax, or other pathology. Patient feels improved after Lidoderm patches and cyclobenzaprine. Symptoms appear consistent with spasm of rhomboid musculature, likely secondary to Hyperflex back position that she slept in. Will recommend cyclobenzaprine, heat, Lidoderm patches and NSAID therapy at home. Patient is amendable to plan. Discussed red flags for which to return. I have extensively reviewed the treatment plan and discharge instructions with the patient. I have addressed all patient concerns at this time. The patient was made aware of what symptoms to monitor for that would warrant a return to the emergency department. Discussed the plan with the patient, they demonstrate verbal understanding and agreement with our assessment and plan at this time. The documentation in this chart was dictated using [employer] dictation software. Please excuse any dictation errors. FINDINGS: BONES: No acute fracture is present. No bony destructive lesion is seen. JOINTS: No dislocation present. SOFT TISSUE: Normal. IMPRESSION: No acute fracture or dislocation. Quality:SDOH Health Related Social Needs: Health related social needs house/econ circumstance lo antonio/isolated Health related social needs details patient utilizes t he [facility] All Active Problems (Updated 11/03/24 @ 14:18 by Theodore Leyva DO) Pain of right scapula (Acute) Cellulitis of left foot (Acute) Alcohol abuse (Acute) Contusion of left lower leg, initial encounter (Acute) Mild tricuspid regurgitation (Chronic) Smoker (Acute) History of prior with IUGR (Acute 01/11/15) History of kidney injury (Acute 01/17/16) Acute January, History of drug abuse (Acute 01/17/16) In IP treatment at [place], no longer on methadone as of 01/17/16. Family court is close to resolved - will end . She is expecting 1st daughter to come home. Insomnia (Acute) Anxiety (Chronic) Anemia (Chronic) Opioid dependence (Acute) Mitral regurgitation (Chronic) Medical History Cardiomyopathy (01/22/16) Hepatitis C IVDU (intravenous drug user) Methadone maintenance therapy patient Exhausted vascular access Left posterior fascicular block (LPFB) RBBB Closed head injury Cardiac arrest with successful resuscitation Pulmonary nodules Anemia Alcohol abuse Hx of cocaine abuse Personality disorder Herpes, vulvar PTSD (post-traumatic stress disorder) ADHD Subacute endocarditis (01/22/16) MSSA endocarditis January, HSV infection Hx of who one week after . ? HSV or H1N1 infection. Pt has been on prophylaxis with pregnancies. Depression difficulty bonding with 2nd child. child removed from her custody. was on Wellbutrin but had sz and not on meds at this time. has appt with counselor 03/2015 Surgical History section (11/24/12) PCD @ 35w. IUGR. NRFH. [id number]. [facility]. 03/26/15 RCD. Pt arrived in labor and declined SUN. F. Jessica. Amputation 12/23/16;[facility]; RIGHT BELOW THE KNEE Family History Mother No problems noted. Father No problems noted. Brother No problems noted. Grandfather No problems noted. Grandfather No problems noted. Grandmother No problems noted. Grandmother No problems noted. Son No problems noted. Son No problems noted. Daughter No problems noted. Daughter No problems noted. Social History Smoking/Tobacco Use Status: Current every day Tobacco Type: cigarettes Smoking risk assessment performed?: Yes Alcohol Intake: current Alcohol Intake frequency: a few times a month Alcohol type: beer Drug use: Occasionally Substance use type: former substance user, crack/cocaine, heroin, amphetamines, opiates, IV drugs, methamphetamine and unknown Housing: house Do you feel safe at home: Yes Do you feel safe in your relationship?: Yes Additional Social history: pt states she is on methadone, states lives with father History History 4 Para 4 Hx # Term Pregnancies Multiple births Hx # Pregnancies Ectopic pregnancies AB induced Hx Number of Living Children 3 AB spontaneous Past Pregnancies Del. Date GA/Weeks # Preg Succ Route Wgt Sex Labor Lgth Anesth esia Location [facility] 12/28/20 25 Delivery Date: 12/28/20 Last Updated by: Roxanna Rocha LPN Patient [facility]
--- NOTE | 2024-11-03 12:45 | DI.RAD_ITS ---
Exam(s) XR SCAPULA RT EXAM: XR SCAPULA RT CLINICAL HISTORY: right scapula pain, eval for fx. TECHNIQUE: 2D digital imaging was performed. Two images were obtained. COMPARISON: CT CT CHEST/ABD/PEL WO from 12/04/2021 CR,XR XR PORTABLE CHEST AP from 04/14/2023 CR,XR XR CHEST 2V PA LATERAL from 05/25/2024 CR,XR XR SHOULDER RT COMPLETE 2+V from 05/25/2024 FINDINGS: BONES: No acute fracture is present. No bony destructive lesion is seen. JOINTS: No dislocation present. SOFT TISSUE: Normal. IMPRESSION: No acute fracture or dislocation. DATA REPOSITORY: RADIATION DOSE DELIVERED:
[2024-11-03] MEDS: Lidocaine 5% Patch 2 PATCH TP (13:26)
[2024-11-03 13:38] VITALS: BP 119/69; PULSE 59; TEMP 36.6; O2SAT 96
[2024-11-03] MEDS: Cyclobenzaprine 10 MG TAB, 3 TABS/BTL PO (14:26)
[2024-11-03 14:32] VITALS: BP 115/68; PULSE 60; RESP 16; TEMP 37.1; O2SAT 99
== END 2024-11-03 14:33 | disposition home or self-care (01) ==
PROVIDERS: Emergency Provider Student in an Organized Health Care Education/Training Program; PCP Physician Assistant
DX: M54.9 Dorsalgia, unspecified (principal); Z59.89 Other problems related to housing and economic circumstances
CPT/HCPCS: 99283; 73010

== ENCOUNTER 2024-11-10 10:32 | Emergency (ER) | payer MEDICAID, SELFPAY ==
[2024-11-10 10:35] VITALS: BP 125/62; PULSE 69; RESP 18; TEMP 36.5; O2SAT 96
--- NOTE | 2024-11-10 11:23 | W.ED.GENAD ---
Discharge Plan Disposition Patient Disposition: Home Condition: Stable Discharge Details Clinical Impression: Cellulitis of right thigh Primary Care Provider: Glenn Tinajero ED Provider: Jeannette Duffy Home Meds and New Rx's Prescriptions: New sulfamethoxazole-trimethoprim [Bactrim DS] 800-160 mg tablet 1 tab PO BID 10 Days Qty: 20 0RF Rx Instructions: Please take 1 tablet by mouth twice daily for the next 10 days No Action methadone 10 mg/mL Concentrate 140 mg PO DAILY Patient Comments: verified dose 10/01/24 w/[facility] Rx Instructions: CONFIRMED DOSE WITH [facility] 05/02/24 :120mg naloxone 4 mg/actuation spray,non-aerosol 4 mg intranasal Q2M PRNQty: 2 12RF Rx Instructions: spray 1 dose into ONE nostril; alternate nostrils w each dose until help arrives aripiprazole 5 mg tablet 5 mg PO DAILY Patient Comments: TAKE ONE TABLET BY MOUTH EVERY DAY furosemide 20 mg tablet 20 mg PO DAILY PRN PRN (Reason: Edema) Patient Comments: 1 tablet by mouth once a day as needed TAKE ONE TABLET BY MOUTH EVERY DAY as needed for edema acetaminophen 500 mg tablet 1,000 mg PO Q6H PRNQty: 40 0RF ibuprofen 800 mg tablet 800 mg PO Q8H PRNQty: 15 0RF methylphenidate HCl 5 mg tablet 5 mg PO QPM Qty: 7 0RF methylphenidate HCl [Ritalin LA] 40 mg capsule,ER biphasic 50-50 40 mg PO QAM Qty: 7 0RF duloxetine 60 mg capsule,delayed release(DR/EC) 60 mg PO DAILY Qty: 30 0RF gabapentin 800 mg tablet 800 mg PO QID Qty: 28 0RF lamotrigine 50 mg tablet extended release 24hr 50 mg PO DAILY Qty: 30 0RF cyclobenzaprine 10 mg tablet 10 mg PO TID Qty: 14 0RF lidocaine [Lidoderm] 5 % adhesive patch,medicated 1 patch Topical Q24H Qty: 15 0RF Discharge Instructions Instructions: Cellulitis (Skin Infection), Adult ED Additional Instructions: At this time it does appear that you have an area that is infected around the sore on the right side of your upper leg. You are given the first antibiotic Bactrim here in the department with 2 tablets ago. Please follow-up with your primary care or prescribing provider for your normal daily medications do not use the ER to get your daily medications. You are able to get the gabapentin and lamotrigine here in the emergency department I am unable to give you your Ritalin at this time. Please watch the area of redness for any spreading give the antibiotics at least 3 to 5 days to kick in. Return to the ER for any fever, chills, spreading of the redness up your leg after 2 to 3 days of the antibiotic. Please take the antibiotic with yogurt or a probiotic. Change the dressing daily. Allow to air dry after the first 2 days. Follow up with primary care provider in 3-5 days. Return to ED sooner if any worsening or concerns. Please take Tylenol or Ibuprofen with food every 4-6 hours as needed for pain and swelling. Referrals: Glenn Tinajero [Primary Care Provider, Medicine] - 3 days Referral Note: For wound recheck and ER follow-up Clinical Impression: Cellulitis of right thigh Discharge Data Discharge Date/Time-TO BE ENTERED AT DEPARTURE: 11/10/24 12:14 HPI General Date/Time Provider Initiated Documentation: 11/10/24 11:22. Limitations to Documentation: no limitations. Information obtained by: patient, RN notes reviewed and old records reviewed. HPI Narrative: Patient has a past medical history of cardiomyopathy, hepatitis C, IV drug use, methadone maintenance therapy, alcohol abuse, anemia, PTSD, history of cocaine abuse, ADHD depression. Right below the knee amputation. Denies any other associated symptoms reports fever undocumented at this point, denies any chest pain shortness of breath. Related Data Home Medications ?Medication ?Instructions ?Recorded ?Confirmed methadone 10 mg/mL oral concentrate 140 mg PO DAILY 06/02/21 11/10/24 furosemide 20 mg tablet 20 mg PO DAILY PRN PRN Edema 12/03/22 11/10/24 naloxone 4 mg/actuation nasal spray 4 mg intranasal Q2M PRN #2 ea 12/25/22 11/10/24 acetaminophen 500 mg tablet 1,000 mg (2 x 500 mg) PO Q6H PRN 08/28/23 11/10/24 #40 tabs ibuprofen 800 mg tablet 800 mg PO Q8H PRN #15 tabs 08/28/23 11/10/24 duloxetine 60 mg capsule,delayed 60 mg PO DAILY #30 caps 09/08/24 11/10/24 release gabapentin 800 mg tablet 800 mg PO QID #28 tabs 09/08/24 11/10/24 lamotrigine 50 mg tablet,extended 50 mg PO DAILY #30 tabs 09/08/24 11/10/24 release 24 hr methylphenidate HCl 40 mg biphasic 40 mg PO QAM #7 caps 09/08/24 11/10/24 50-50 capsule,extended release (Ritalin LA) methylphenidate HCl 5 mg tablet 5 mg PO QPM #7 tabs 09/08/24 11/10/24 aripiprazole 5 mg tablet 5 mg PO DAILY 10/25/24 11/10/24 cyclobenzaprine 10 mg tablet 10 mg PO TID #14 tabs 11/03/24 11/10/24 lidocaine 5 % topical patch 1 patch topical Q24H #15 ea 11/03/24 11/10/24 (Lidoderm) sulfamethoxazole 800 1 tab PO BID Cellulitis 10 days 11/10/24 mg-trimethoprim 160 mg tablet #20 tabs (Bactrim DS) Previous Rx's ?Medication ?Instructions ?Recorded naloxone 4 mg/actuation nasal spray 4 mg intranasal Q2M PRN #2 ea 12/25/22 acetaminophen 500 mg tablet 1,000 mg (2 x 500 mg) PO Q6H PRN 08/28/23 #40 tabs ibuprofen 800 mg tablet 800 mg PO Q8H PRN #15 tabs 08/28/23 duloxetine 60 mg capsule,delayed 60 mg PO DAILY #30 caps 09/08/24 release gabapentin 800 mg tablet 800 mg PO QID #28 tabs 09/08/24 lamotrigine 50 mg tablet,extended 50 mg PO DAILY #30 tabs 09/08/24 release 24 hr methylphenidate HCl 40 mg biphasic 40 mg PO QAM #7 caps 09/08/24 50-50 capsule,extended release (Ritalin LA) methylphenidate HCl 5 mg tablet 5 mg PO QPM #7 tabs 09/08/24 cyclobenzaprine 10 mg tablet 10 mg PO TID #14 tabs 11/03/24 lidocaine 5 % topical patch 1 patch topical Q24H #15 ea 11/03/24 (Lidoderm) sulfamethoxazole 800 1 tab PO BID Cellulitis 10 days 11/10/24 mg-trimethoprim 160 mg tablet #20 tabs (Bactrim DS) Allergies Allergy/AdvReac Type Severity Reaction Status Date / Time bupropion HCl (From AdvReac Intermediate Contraindic Verified 11/10/24 10:37 Wellbutrin SR) ated General Stated Complaint: Cellulitis CELESTE: 3 Review of Systems All systems reviewed & are unremarkable except as noted in HPI and below Constitutional Constitutional: Reports as per HPI, Denies body ache(s) and Denies fever(s) Integumentary/Breasts Skin/Breast: Reports erythema, Reports skin pain, Reports skin swelling, Reports sores and Reports wounds Exam Resp Effort & Inspection: normal respiratory effort, able to speak in complete sentences, no audible wheezes, no cough, respiratory effort not decreased, no grunting, not labored and no nasal flaring Auscultation: clear to auscultation bilaterally Cardio Rate: regular rate Rhythm: regular rhythm Heart Sounds: S1 normal and S2 normal Extrem Elbow/forearm/wrist images:  1. Below the knee amputation 2. Approximately 5 cm x 4 cm in diameter area of erythema swelling and induration with a central scab or excoriation patient denies any known injury denies any skin popping or IV drug use. Course Vital Signs Vital signs: Vital Signs Temperature 36.5 C 11/10/24 10:35 Pulse 69 11/10/24 10:35 Respiratory Rate 18 11/10/24 10:35 Blood Pressure 125/62 11/10/24 10:35 Pulse Oximetry 96 11/10/24 10:35 Temperature 36.5 C 11/10/24 10:35 Pulse 69 11/10/24 10:35 Respiratory Rate 18 11/10/24 10:35 Blood Pressure 125/62 11/10/24 10:35 Pulse Oximetry 96 11/10/24 10:35 Oxygen Delivery Method Room Air 11/10/24 11:21 Oxygen Flow Rate 0 11/10/24 10:35 Pain Level 5 11/10/24 11:21 Procedure Abscess Drainage Date of Procedure: 11/10/24 Time of Procedure: 11:50 Provider that performed the procedure: Jeannette Davidson Time Out Performed: Yes Patient Consented: Verbally Pre Procedure Medication: Other (Pain-marcello topical spray) Location of Exam: Lower extremity/right (Right upper leg) Indication: Pain, Redness and Swelling. Local anesthetic: other anesthetic, Amount of Local Anesthetic Used (mL): 1. Sterility: Non Sterile. Procedure Prep: Hand hygiene, Surgical Mask, Chlohexidine and Alcohol. Technique used, needle aspiration. Amount of fluid expressed(mL): 0. Irrigation: no irrigation Procedure Prep: Hand hygiene and Surgical Mask. Outcome: Unsuccessful Procedure Description/Note: Needle aspiration attempted, no purulent drainage obtained, there is some sanguinous drainage noted. Patient tolerated with some difficulty. Complications: None Procedure Description Note: Dressing applied, erythema marked given instructions Bactrim here in the department and 2 tablets to go., Medical Decision Making 39-year-old female presents to the ER with a chief complaint of right upper leg wound, swelling and pain which she noticed yesterday. She does wear a prosthetic to that leg. She denies any skin popping or drug use. She is asking for her gabapentin and her daily medications. She did present here from the [facility] clinic and did get her daily methadone tablet. She reports that she is staying at her dad's house and has not been home to get her medications. On exam she does have a central scab with surrounding demarcated area of induration measuring approximately 7 cm x 4 cm in diameter. No significant fluctuance noted however, there is some swelling. Patient was seen in September and prescribed clindamycin which was added on to the Augmentin at that time for a foot sore. To her left foot. Will give her Bactrim here in the department and apply a dressing to the area. Will carissa to the erythema for observation. Patient is nontachycardic and afebrile here in the department. Will attempt a needle aspirate for possible abscess will consent verbally for procedure. Please see procedure note, no purulent discharge aspirated with needle aspiration I&D. Patient tolerated with some difficulty. Area was cleaned with chlorhexidine and alcohol swab, Pain-marcello spray applied and area injected with 21-gauge needle, sanguinous drainage noted. Dressing applied. Erythema marked with wound marker. Patient discharged with Bactrim first dose given here prescribed 10 days twice daily. Discussed strict return instructions and home care and follow-up care. Patient verbalized understanding. This text was generated using Complexaation system, please disregard any oddities of phrase or misspellings. Medical Records Medical records reviewed: Yes I reviewed the patient's medical records. Quality:SDOH Health Related Social Needs: Health related social needs house/econ circumstance lonely/isolated Health related social needs details patient utilizes the [facility] All Active Problems (Updated 11/10/24 @ 11:52 by Jeannette Duffy NP) Cellulitis of right thigh (Acute) Pain of right scapula (Acute) Alcohol abuse (Acute) Contusion of left lower leg, initial encounter (Acute) Mild tricuspid regurgitation (Chronic) Smoker (Acute) History of prior with IUGR (Acute 01/11/15) History of kidney injury (Acute 01/17/16) Acute January, History of drug abuse (Acute 01/17/16) In IP treatment at [place], no longer on methadone as of 01/17/16. Family court is close to resolved - will end . She is expecting 1st daughter to come home. Insomnia (Acute) Anxiety (Chronic) Anemia (Chronic) Opioid dependence (Acute) Mitral regurgitation (Chronic) Medical History Cardiomyopathy (01/22/16) Hepatitis C IVDU (intravenous drug user) Methadone maintenance therapy patient Exhausted vascular access Left posterior fascicular block (LPFB) RBBB Closed head injury Cardiac arrest with successful resuscitation Pulmonary nodules Anemia Alcohol abuse Hx of cocaine abuse Personality disorder Herpes, vulvar PTSD (post-traumatic stress disorder) ADHD Subacute endocarditis (01/22/16) MSSA endocarditis January, HSV infection Hx of who one week after . ? HSV or H1N1 infection. Pt has been on prophylaxis with pregnancies. Depression difficulty bonding with 2nd child. child removed from her custody. was on Wellbutrin but had sz and not on meds at this time. has appt with counselor 03/2015 Surgical History section (11/24/12) PCD @ 35w. IUGR. [facility]. [id number]. [facility]. 03/26/15 RCD. Pt arrived in labor and declined SUN. [facility]. Amputation 12/23/16;[facility]; RIGHT BELOW THE KNEE Family History Mother No problems noted. Father No problems noted. Brother No problems noted. Grandfather No problems noted. Grandfather No problems noted. Grandmother No problems noted. Grandmother No problems noted. Son No problems noted. Son No problems noted. Daughter No problems noted. Daughter No problems noted. Social History Smoking/Tobacco Use Status: Current every day Tobacco Type: cigarettes Smoking risk assessment performed?: Yes Alcohol Intake: current Alcohol Intake frequency: a few times a month Alcohol type: beer Drug use: Occasionally Substance use type: former substance user, crack/cocaine, heroin, amphetamines, opiates, IV drugs, methamphetamine and unknown Housing: house Do you feel safe at home: Yes Do you feel safe in your relationship?: Yes Additional Social history: pt states she is on methadone, states lives with father History History 4 Para 4 Hx # Term Pregnancies Multiple births Hx # Pregnancies Ectopic pregnancies AB induced Hx Number of Living Children 3 AB spontaneous Past Pregnancies Del. Date GA/Weeks # Preg Succ Route Wgt Sex Labor Lgth Anesthesia Location Prov Complic 12/28/20 25 Delivery Date: 12/28/20 Last Updated by: Roxanna Rocha LPN Patient transferred OB care to [facility] POCUS Exam (ED) Limited Soft Tissue Exam PROVIDER THAT PERFORMED THE STUDY: Jeannette Duffy
[2024-11-10] MEDS: Sulfameth/Trimeth DS, 2 TABS/BTL 1 TAB PO (11:38)
[2024-11-10] MEDS: Sulfameth/Trimeth DS TAB 1 TAB PO (11:38)
[2024-11-10 12:14] VITALS: BP 97/67; PULSE 63; RESP 16; O2SAT 94
[2024-11-10] MEDS: Gabapentin 300 MG CAP PO (12:14)
[2024-11-10] MEDS: lamoTRIgine 25 MG TAB 50 MG PO (12:14)
== END 2024-11-10 12:14 | disposition home or self-care (01) ==
PROVIDERS: Emergency Provider Registered Nurse Emergency; PCP Physician Assistant
DX: L03.115 Cellulitis of right lower limb (principal); Z97.13 Presence of artificial right leg (complete) (partial); Z59.89 Other problems related to housing and economic circumstances; Z60.8 Other problems related to social environment
CPT/HCPCS: 10060

== ENCOUNTER 2024-12-19 14:29 | Emergency (ER) | payer MEDICAID, SELFPAY ==
[2024-12-19 14:32] VITALS: BP 148/101; PULSE 76; RESP 16; TEMP 37; O2SAT 98
[2024-12-19] MEDS: Methadone Liquid 10 MG/ML 160 MG PO (15:23)
--- NOTE | 2024-12-19 15:42 | W.ED.GENAD ---
Discharge Plan Discharge Details Chief Complaint: DrugWithdr/MAT Primary Care Provider: Glenn Tinajero ED Provider: Patricia Pereira Home Meds and New Rx's Prescriptions: No Action methadone 10 mg/mL Concentrate 160 mg PO DAILY Patient Comments: verified dose 10/01/24 w/[facility] Rx Instructions: CONFIRMED DOSE WITH [facility] 05/02/24 :120mg naloxone 4 mg/actuation spray,non-aerosol 4 mg intranasal Q2M PRNQty: 2 12RF Rx Instructions: spray 1 dose into ONE nostril; alternate nostrils w each dose until help arrives aripiprazole 5 mg tablet 5 mg PO DAILY Patient Comments: TAKE ONE TABLET BY MOUTH EVERY DAY furosemide 20 mg tablet 20 mg PO DAILY PRN PRN (Reason: Edema) Patient Comments: 1 tablet by mouth once a day as needed TAKE ONE TABLET BY MOUTH EVERY DAY as needed for edema acetaminophen 500 mg tablet 1,000 mg PO Q6H PRNQty: 40 0RF ibuprofen 800 mg tablet 800 mg PO Q8H PRNQty: 15 0RF methylphenidate HCl 5 mg tablet 5 mg PO QPM Qty: 7 0RF methylphenidate HCl [Ritalin LA] 40 mg capsule,ER biphasic 50-50 40 mg PO QAM Qty: 7 0RF duloxetine 60 mg capsule,delayed release(DR/EC) 60 mg PO DAILY Qty: 30 0RF gabapentin 800 mg tablet 800 mg PO QID Qty: 28 0RF lamotrigine 50 mg tablet extended release 24hr 50 mg PO DAILY Qty: 30 0RF cyclobenzaprine 10 mg tablet 10 mg PO TID Qty: 14 0RF lidocaine [Lidoderm] 5 % adhesive patch,medicated 1 patch Topical Q24H Qty: 15 0RF HPI General Date/Time Provider Initiated Documentation: 12/19/24 14:30. HPI Narrative: This 39-year-old female presents with need for methadone therapy. Patient reportedly missed her dose of methadone today but she was with her daughter. She denies any current complaints and has not been utilizing any illicit substances. States she takes 160 mg. Related Data Home Medications ?Medication ?Instructions ?Recorded ?Confirmed methadone 10 mg/mL oral concentrate 160 mg PO DAILY 06/02/21 12/19/24 furosemide 20 mg tablet 20 mg PO DAILY PRN PRN Edema 12/03/22 12/19/24 naloxone 4 mg/actuation nasal spray 4 mg intranasal Q2M PRN #2 ea 12/25/22 12/19/24 acetaminophen 500 mg tablet 1,000 mg (2 x 500 mg) PO Q6H PRN 08/28/23 12/19/24 #40 tabs ibuprofen 800 mg tablet 800 mg PO Q8H PRN #15 tabs 08/28/23 12/19/24 duloxetine 60 mg capsule,delayed 60 mg PO DAILY #30 caps 09/08/24 12/19/24 release gabapentin 800 mg tablet 800 mg PO QID #28 tabs 09/08/24 12/19/24 lamotrigine 50 mg tablet,extended 50 mg PO DAILY #30 tabs 09/08/24 12/19/24 release 24 hr methylphenidate HCl 40 mg biphasic 40 mg PO QAM #7 caps 09/08/24 12/19/24 50-50 capsule,extended release (Ritalin LA) methylphenidate HCl 5 mg tablet 5 mg PO QPM #7 tabs 09/08/24 12/19/24 aripiprazole 5 mg tablet 5 mg PO DAILY 10/25/24 12/19/24 cyclobenzaprine 10 mg tablet 10 mg PO TID #14 tabs 11/03/24 12/19/24 lidocaine 5 % topical patch 1 patch topical Q24H #15 ea 11/03/24 12/19/24 (Lidoderm) Previous Rx's ?Medication ?Instructions ?Recorded naloxone 4 mg/actuation nasal spray 4 mg intranasal Q2M PRN #2 ea 12/25/22 acetaminophen 500 mg tablet 1,000 mg (2 x 500 mg) PO Q6H PRN 08/28/23 #40 tabs ibuprofen 800 mg tablet 800 mg PO Q8H PRN #15 tabs 08/28/23 duloxetine 60 mg capsule,delayed 60 mg PO DAILY #30 caps 09/08/24 release gabapentin 800 mg tablet 800 mg PO QID #28 tabs 09/08/24 lamotrigine 50 mg tablet,extended 50 mg PO DAILY #30 tabs 09/08/24 release 24 hr methylphenidate HCl 40 mg biphasic 40 mg PO QAM #7 caps 09/08/24 50-50 capsule,extended release (Ritalin LA) methylphenidate HCl 5 mg tablet 5 mg PO QPM #7 tabs 09/08/24 cyclobenzaprine 10 mg tablet 10 mg PO TID #14 tabs 11/03/24 lidocaine 5 % topical patch 1 patch topical Q24H #15 ea 11/03/24 (Lidoderm) Allergies Allergy/AdvReac Type Severity Reaction Status Date / Time bupropion HCl (From AdvReac Intermediate Contraindic Verified 12/19/24 14:34 Wellbutrin SR) ated General Stated Complaint: DrugWithdr/MAT CELESTE: 4 Exam Narrative Exam Narrative: This 39-year-old female is alert, oriented, no acute distress answering questions appropriately ambulatory with steady gait Course Vital Signs Vital signs: Vital Signs Temperature 37.0 C 12/19/24 14:32 Pulse 76 12/19/24 14:32 Respiratory Rate 16 12/19/24 14:32 Blood Pressure 148/101 H 12/19/24 14:32 Pulse Oximetry 98 12/19/24 14:32 Temperature 37.0 C 12/19/24 14:32 Pulse 76 12/19/24 14:32 Respiratory Rate 16 12/19/24 14:32 Blood Pressure 148/101 H 12/19/24 14:32 Pulse Oximetry 98 12/19/24 14:32 Pain Level 0 12/19/24 14:32 Medical Decision Making 160 mg of methadone was administered in the emergency department after confirmation that patient did not receive methadone today and dosing. Patient will follow-up with [facility] tomorrow. Sober on my assessment today. Quality:SDOH Health Related Social Needs: Health related social needs house/econ circumstance lonely/isolated Health related social needs details patient utilizes the [facility] All Active Problems (Updated 12/11/24 @ 00:02 by LYUDMILA MUNGUIA) Alcohol abuse (Acute) Contusion of left lower leg, initial encounter (Acute) Mild tricuspid regurgitation (Chronic) Smoker (Acute) History of prior with IUGR (Acute 01/11/15) History of kidney injury (Acute 01/17/16) Acute January, History of drug abuse (Acute 01/17/16) In IP treatment at [place], no longer on methadone as of 01/17/16. Family court is close to resolved - will end . She is expecting 1st daughter to come home. Insomnia (Acute) Anxiety (Chronic) Anemia (Chronic) Opioid dependence (Acute) Mitral regurgitation (Chronic) Medical History Cardiomyopathy (01/22/16) Hepatitis C IVDU (intravenous drug user) Methadone maintenance therapy patient Exhausted vascular access Left posterior fascicular block (LPFB) RBBB Closed head injury Cardiac arrest with successful resuscitation Pulmonary nodules Anemia Alcohol abuse Hx of cocaine abuse Personality disorder Herpes, vulvar PTSD (post-traumatic stress disorder) ADHD Subacute endocarditis (01/22/16) MSSA endocarditis January, HSV infection Hx of infant who one week after . ? HSV or H1N1 infection. Pt has been on prophylaxis with pregnancies. Depression difficulty bonding with 2nd child. child removed from her custody. was on Wellbutrin but had sz and not on meds at this time. has appt with counselor 03/2015 Surgical History section (11/24/12) PCD @ 35w. IUGR. [facility]. [id number]. [facility]. 03/26/15 RCD. Pt arrived in labor and declined SUN. [facility]. Amputation 12/23/16;[facility]; RIGHT BELOW THE KNEE Family History Mother No problems noted. Father No problems noted. Brother No problems noted. Grandfather No problems noted. Grandfather No problems noted. Grandmother No problems noted. Grandmother No problems noted. Son No problems noted. Son No problems noted. Daughter No problems noted. Daughter No problems noted. Social History Smoking/Tobacco Use Status: Current every day Tobacco Type: cigarettes Smoking risk assessment performed?: Yes Alcohol Intake: current Alcohol Intake frequency: a few times a month Alcohol type: beer Drug use: Never Substance use type: former substance user, crack/cocaine, heroin, amphetamines, opiates, IV drugs, methamphetamine and unknown Housing: house Do you feel safe at home: Yes Do you feel safe in your relationship?: Yes Additional Social history: pt states she is on methadone, states lives with father History History 4 Para 4 Hx # Term Pregnancies Multiple births Hx # Pregnancies Ectopic pregnancies AB induced Hx Number of Living Children 3 AB spontaneous Past Pregnancies Del. Date GA/Weeks # Preg Succ Route Wgt Sex Labor Lgth Anesthesia Location Prov Complic 12/28/20 25 Delivery Date: 12/28/20 Last Updated by: Roxanna Rocha LPN Patient transferred [facility]
== END 2024-12-19 15:28 | disposition home or self-care (01) ==
PROVIDERS: Emergency Provider Physician Assistant; PCP Physician Assistant
DX: F11.23 Opioid dependence with withdrawal (principal)
CPT/HCPCS: 99283 ×2

== ENCOUNTER 2025-01-04 11:30 | Emergency (ER) | payer MEDICAID, SELFPAY ==
[2025-01-04 12:07] VITALS: BP 136/93; PULSE 87; RESP 20; TEMP 36.4; O2SAT 98
--- NOTE | 2025-01-04 14:22 | W.ED.GENAD ---
Discharge Plan Disposition Patient Disposition: Home Condition: Stable Discharge Details Clinical Impression: Cellulitis of left leg Primary Care Provider: Glenn Tinajero ED Provider: Tim Fitzpatrick Home Meds and New Rx's Prescriptions: New sulfamethoxazole-trimethoprim [Bactrim DS] 800-160 mg tablet 1 tab PO BID Qty: 14 0RF amoxicillin-pot clavulanate 875-125 mg tablet 1 tab PO BID Qty: 14 0RF Continued methadone 10 mg/mL Concentrate 160 mg PO DAILY Patient Comments: verified dose 10/01/24 w/[facility] Rx Instructions: CONFIRMED DOSE WITH [facility] 05/02/24 :120mg naloxone 4 mg/actuation spray,non-aerosol 4 mg intranasal Q2M PRNQty: 2 12RF Rx Instructions: spray 1 dose into ONE nostril; alternate nostrils w each dose until help arrives aripiprazole 5 mg tablet 5 mg PO DAILY Patient Comments: TAKE ONE TABLET BY MOUTH EVERY DAY furosemide 20 mg tablet 20 mg PO DAILY PRN PRN (Reason: Edema) Patient Comments: 1 tablet by mouth once a day as needed TAKE ONE TABLET BY MOUTH EVERY DAY as needed for edema acetaminophen 500 mg tablet 1,000 mg PO Q6H PRNQty: 40 0RF ibuprofen 800 mg tablet 800 mg PO Q8H PRNQty: 15 0RF methylphenidate HCl 5 mg tablet 5 mg PO QPM Qty: 7 0RF methylphenidate HCl [Ritalin LA] 40 mg capsule,ER biphasic 50-50 40 mg PO QAM Qty: 7 0RF duloxetine 60 mg capsule,delayed release(DR/EC) 60 mg PO DAILY Qty: 30 0RF gabapentin 800 mg tablet 800 mg PO QID Qty: 28 0RF lamotrigine 50 mg tablet extended release 24hr 50 mg PO DAILY Qty: 30 0RF cyclobenzaprine 10 mg tablet 10 mg PO TID Qty: 14 0RF lidocaine [Lidoderm] 5 % adhesive patch,medicated 1 patch Topical Q24H Qty: 15 0RF Discharge Instructions Additional Instructions: Make the antibiotic as prescribed. Keeping your leg elevated when sitting or lying down can help with the swelling. If not improving within 5 days follow-up with primary care provider. If you feel significantly more ill or new symptoms such as high fevers return to emergency department for reevaluation. HPI General Mode of arrival: ambulatory. Date/Time Provider Initiated Documentation: 01/04/25 13:26. Limitations to Documentation: no limitations. Information obtained by: patient. History of Present Illness 39 year old F presents to the emergency department with the chief complaint of left leg redness, described as moderate, Quality is described as burning and aching, and is localized to the left and lower extremity. Patient reports no radiation. Patient started experiencing this day(s) (5) and it has been constant. No relieving factors improve symptom(s), No exacerbating factors reported . Patient notes no other symptoms.. Patient did receive the following treatments prior to arrival, none Related Data Home Medications Medication Instructions Recorded Confirmed methadone 10 mg/mL oral concentrate 160 mg PO DAILY 06/02/21 01/04/25 furosemide 20 mg tablet 20 mg PO DAILY PRN PRN Edema 12/03/22 01/04/25 naloxone 4 mg/actuation nasal spray 4 mg intranasal Q2M PRN #2 ea 12/25/22 01/04/25 acetaminophen 500 mg tablet 1,000 mg (2 x 500 mg) PO Q6H PRN 08/28/23 01/04/25 #40 tabs ibuprofen 800 mg tablet 800 mg PO Q8H PRN #15 tabs 08/28/23 01/04/25 duloxetine 60 mg capsule,delayed 60 mg PO DAILY #30 caps 09/08/24 01/04/25 release gabapentin 800 mg tablet 800 mg PO QID #28 tabs 09/08/24 01/04/25 lamotrigine 50 mg tablet,extended 50 mg PO DAILY #30 tabs 09/08/24 01/04/25 release 24 hr methylphenidate HCl 40 mg biphasic 40 mg PO QAM #7 caps 09/08/24 01/04/25 50-50 capsule,extended release (Ritalin LA) methylphenidate HCl 5 mg tablet 5 mg PO QPM #7 tabs 09/08/24 01/04/25 aripiprazole 5 mg tablet 5 mg PO DAILY 10/25/24 01/04/25 cyclobenzaprine 10 mg tablet 10 mg PO TID #14 tabs 11/03/24 01/04/25 lidocaine 5 % topical patch 1 patch topical Q24H #15 ea 11/03/24 01/04/25 (Lidoderm) amoxicillin 875 mg-potassium 1 tab PO BID #14 tabs 01/04/25 clavulanate 125 mg tablet sulfamethoxazole 800 1 tab PO BID #14 tabs 01/04/25 mg-trimethoprim 160 mg tablet (Bactrim DS) Previous Rx's Medication Instructions Recorded naloxone 4 mg/actuation nasal spray 4 mg intranasal Q2M PRN #2 ea 12/25/22 acetaminophen 500 mg tablet 1,000 mg (2 x 500 mg) PO Q6H PRN 08/28/23 #40 tabs ibuprofen 800 mg tablet 800 mg PO Q8H PRN #15 tabs 08/28/23 duloxetine 60 mg capsule,delayed 60 mg PO DAILY #30 caps 09/08/24 release gabapentin 800 mg tablet 800 mg PO QID #28 tabs 09/08/24 lamotrigine 50 mg tablet,extended 50 mg PO DAILY #30 tabs 09/08/24 release 24 hr methylphenidate HCl 40 mg biphasic 40 mg PO QAM #7 caps 09/08/24 50-50 capsule,extended release (Ritalin LA) methylphenidate HCl 5 mg tablet 5 mg PO QPM #7 tabs 09/08/24 cyclobenzaprine 10 mg tablet 10 mg PO TID #14 tabs 11/03/24 lidocaine 5 % topical patch 1 patch topical Q24H #15 ea 11/03/24 (Lidoderm) amoxicillin 875 mg-potassium 1 tab PO BID #14 tabs 01/04/25 clavulanate 125 mg tablet sulfamethoxazole 800 1 tab PO BID #14 tabs 01/04/25 mg-trimethoprim 160 mg tablet (Bactrim DS) Allergies Allergy/AdvReac Type Severity Reaction Status Date / Time bupropion HCl (From AdvReac Intermediate Contraindic Verified 01/04/25 12:06 Wellbutrin SR) ated General Stated Complaint: Orthopedic CELESTE: 3 Review of Systems All systems reviewed & are unremarkable except as noted in HPI and below Constitutional Constitutional: Denies chills, Denies fever(s) and Denies weakness Cardiovascular Cardiovascular: Denies dyspnea Respiratory Respiratory: Denies dyspnea Gastrointestinal Gastrointestinal: Denies vomiting Integumentary/Breasts Skin/Breast: Reports rash Neurologic Neurologic: Denies weakness Exam Const General: no acute distress Orientation: alert HENMT Head: normal to inspection Ears: external ears normal General nose exam: external nose normal Mouth: moist mucous membranes Eyes General: appearance normal, both eyes and all related structures Neck Neck: normal visual inspection Resp Effort & Inspection: normal respiratory effort and able to speak in complete sentences Cardio Rate: regular rate Skin General skin exam: erythema Neuro General: patient alert and patient oriented x3 Extrem General: full ROM Psych Mental Status: mental status grossly normal Course Vital Signs Vital signs: Vital Signs Temperature 36.4 C L 01/04/25 12:07 Pulse 87 01/04/25 12:07 Respiratory Rate 20 01/04/25 12:07 Blood Pressure 136/93 H 01/04/25 12:07 Pulse Oximetry 98 01/04/25 12:07 Temperature 36.4 C L 01/04/25 12:07 Temperature Source Tympanic 01/04/25 12:07 Pulse 87 01/04/25 12:07 Respiratory Rate 20 01/04/25 12:07 Blood Pressure 136/93 H 01/04/25 12:07 Blood Pressure Position Sitting 01/04/25 12:07 Pulse Oximetry 98 01/04/25 12:07 Oxygen Delivery Method Room Air 01/04/25 12:07 Oxygen Flow Rate 0 01/04/25 12:07 Pain Level 6 01/04/25 12:07 Medical Decision Making 39-year-old female on methadone who denies any illicit drug use recently comes in after she states in 5 to 6 days ago she cut her left her lower leg shaving with a razor. She has had increased redness and swelling of the leg since so came here for an evaluation. She denies any fevers or systemic symptoms or severe pain. She has an area of erythema 4 x 5 cm on the left medial lower leg between the knee and the ankle. She has full range of motion of the ankle knee without any pain is no erythema of any joints. She has no calf tenderness. Exam is consistent with likely cellulitis and she has no findings on exam or history to suggest entities such as sepsis, septic joint or necrotizing fasciitis so I do not feel any labs or imaging is indicated. I will start her on Augmentin and Bactrim. She will follow-up with her PCP if not improving and return precautions given. Quality:SDOH Health Related Social Needs: Health related social needs house/econ circumstance lonely/isolated Health related social needs details patient utilizes the [facility] All Active Problems (Updated 01/04/25 @ 14:23 by Tim Fitzpatrick MD) Cellulitis of left leg (Acute) Alcohol abuse (Acute) Contusion of left lower leg, initial encounter (Acute) Mild tricuspid regurgitation (Chronic) Smoker (Acute) History of prior with IUGR (Acute 01/11/15) History of kidney injury (Acute 01/17/16) Acute January, History of drug abuse (Acute 01/17/16) In IP treatment at [place], no longer on methadone as of 01/17/16. Family court is close to resolved - will end . She is expecting 1st daughter to come home. Insomnia (Acute) Anxiety (Chronic) Anemia (Chronic) Opioid dependence (Acute) Mitral regurgitation (Chronic) Medical History Cardiomyopathy (01/22/16) Hepatitis C IVDU (intravenous drug user) Methadone maintenance therapy patient Exhausted vascular access Left posterior fascicular block (LPFB) RBBB Closed head injury Cardiac arrest with successful resuscitation Pulmonary nodules Anemia Alcohol abuse Hx of cocaine abuse Personality disorder Herpes, vulvar PTSD (post-traumatic stress disorder) ADHD Subacute endocarditis (01/22/16) MSSA endocarditis January, HSV infection Hx of infant who one week after . ? HSV or H1N1 infection. Pt has been on prophylaxis with pregnancies. Depression difficulty bonding with 2nd child. child removed from her custody. was on Wellbutrin but had sz and not on meds at this time. has appt with counselor 03/2015 Surgical History section (11/24/12) PCD @ 35w. [id number]. 03/26/15 RCD. Pt arrived in labor and declined SUN. [facility]. Amputation 12/23/16;[facility]; RIGHT BELOW THE KNEE Family History Mother No problems noted. Father No problems noted. Brother No problems noted. Grandfather No problems noted. Grandfather No problems noted. Grandmother No problems noted. Grandmother No problems noted. Son No problems noted. Son No problems noted. Daughter No problems noted. Daughter No problems noted. Social History Smoking/Tobacco Use Status: Current every day Tobacco Type: cigarettes Smoking risk assessment performed?: Yes Alcohol Intake: current Alcohol Intake frequency: a few times a month Alcohol type: beer Drug use: Never Substance use type: former substance user, crack/cocaine, heroin, amphetamines, opiates, IV drugs, methamphetamine and unknown Housing: house Do you feel safe at home: Yes Do you feel safe in your relationship?: Yes Additional Social history: pt states she is on methadone, states lives with father History History 4 Para 4 Hx # Term Pregnancies Multiple births Hx # Pregnancies Ectopic pregnancies AB induced Hx Number of Living Children 3 AB spontaneous Past Pregnancies Del. Date GA/Weeks # Preg Succ Route Wgt Sex Labor Lgth Anesthesia Location Prov Complic 12/28/20 25 Delivery Date: 12/28/20 Last Updated by: Roxanna Rocha LPN Patient transferred OB care to [facility]
[2025-01-04] MEDS: Sulfameth/Trimeth DS, 2 TABS/BTL 1 TAB PO (14:28)
[2025-01-04] MEDS: Amox. 875/Clav. 125, 2 TABS/BTL 1 TAB PO (14:28)
[2025-01-04 14:36] VITALS: BP 135/96; PULSE 87; RESP 16; O2SAT 96
== END 2025-01-04 14:38 | disposition home or self-care (01) ==
PROVIDERS: Emergency Provider Emergency Medicine; PCP Physician Assistant
DX: L03.116 Cellulitis of left lower limb (principal)
CPT/HCPCS: 99283; 99284

== ENCOUNTER 2025-01-13 11:41 | Emergency (ER) | payer MEDICAID, SELFPAY ==
[2025-01-13 11:42] VITALS: BP 106/72; PULSE 78; RESP 18; TEMP 36.6; O2SAT 90
--- NOTE | 2025-01-13 12:00 | RT.EKG_ITS ---
APPROVED REPORT Exam: Resting ECG Reason for Exam: ams Patient Location: E HR:68 bpm ECG Measurements Heart Rate 68 AXIS NE 183 P 78 QRSd 95 QRS 75 QT 437 T 60 QTc 466 Conclusion Sinus rhythm...normal P axis, V-rate 60- 99 No STEMI
--- NOTE | 2025-01-13 12:12 | W.ED.GENAD ---
Discharge Plan Disposition Patient Disposition: Home Discharge Details Clinical Impression: Mental status change resolved, Edema, peripheral Primary Care Provider: Glenn Tinajeor ED Provider: Patricia Pereira Home Meds and New Rx's Prescriptions: New furosemide [Lasix] 20 mg tablet 20 mg PO DAILY Qty: 3 0RF Continued methadone 10 mg/mL Concentrate 160 mg PO DAILY Patient Comments: verified dose 10/01/24 w/[facility] Rx Instructions: CONFIRMED DOSE WITH [facility] 05/02/24 :120mg naloxone 4 mg/actuation spray,non-aerosol 4 mg intranasal Q2M PRNQty: 2 12RF Rx Instructions: spray 1 dose into ONE nostril; alternate nostrils w each dose until help arrives aripiprazole 5 mg tablet 5 mg PO DAILY Patient Comments: TAKE ONE TABLET BY MOUTH EVERY DAY sulfamethoxazole-trimethoprim [Bactrim DS] 800-160 mg tablet 1 tab PO BID Qty: 14 0RF amoxicillin-pot clavulanate 875-125 mg tablet 1 tab PO BID Qty: 14 0RF furosemide 20 mg tablet 20 mg PO DAILY PRN PRN (Reason: Edema) Patient Comments: 1 tablet by mouth once a day as needed TAKE ONE TABLET BY MOUTH EVERY DAY as needed for edema acetaminophen 500 mg tablet 1,000 mg PO Q6H PRNQty: 40 0RF ibuprofen 800 mg tablet 800 mg PO Q8H PRNQty: 15 0RF methylphenidate HCl 5 mg tablet 5 mg PO QPM Qty: 7 0RF methylphenidate HCl [Ritalin LA] 40 mg capsule,ER biphasic 50-50 40 mg PO QAM Qty: 7 0RF duloxetine 60 mg capsule,delayed release(DR/EC) 60 mg PO DAILY Qty: 30 0RF gabapentin 800 mg tablet 800 mg PO QID Qty: 28 0RF lamotrigine 50 mg tablet extended release 24hr 50 mg PO DAILY Qty: 30 0RF cyclobenzaprine 10 mg tablet 10 mg PO TID Qty: 14 0RF lidocaine [Lidoderm] 5 % adhesive patch,medicated 1 patch Topical Q24H Qty: 15 0RF Discharge Instructions Additional Instructions: Elevate your leg and wear compression stocking as much as possible Try to cut down on alcohol by 1 drink daily Take Lasix as prescribed for the next several days Talk to your doctor about possible options to help stay away from alcohol Continue with your methadone in the outpatient setting Please return earlier should you have new or worsening complaints Stand Alone Forms: Portal Information Referrals: [facility] [Outside] Glenn Tinajero [Primary Care Provider, Medicine] Discharge Data Discharge Date/Time-TO BE ENTERED AT DEPARTURE: 01/13/25 16:02 HPI General Date/Time Provider Initiated Documentation: 01/13/25 11:43. HPI Narrative: This chronically ill 39-year-old female with history of IV drug use, alcohol use endocarditis, methadone dependence presents with report of alteration in mental status at the methadone clinic just prior to arrival. She was in the bathroom and there was concern for potential seizure although this was not reportedly witnessed. A call was received from the [facility] physician. Discharged the patient from [facility] via private vehicle to the emergency department. Patient does endorse that she has been consuming alcohol daily, sixpack 12 ounce beer daily for the past month. She states she has had alcohol withdrawal seizures in the past however she normally has her first drink around this time and did drink last evening. Denies additional illicit substance use and states she has been compliant with methadone as well today. Denies any chance of fever or chills. Related Data Home Medications Medication Instructions Recorded Confirmed methadone 10 mg/mL oral concentrate 160 mg PO DAILY 06/02/21 01/13/25 furosemide 20 mg tablet 20 mg PO DAILY PRN PRN Edema 12/03/22 01/13/25 naloxone 4 mg/actuation nasal spray 4 mg intranasal Q2M PRN #2 ea 12/25/22 01/13/25 acetaminophen 500 mg tablet 1,000 mg (2 x 500 mg) PO Q6H PRN 08/28/23 01/13/25 #40 tabs ibuprofen 800 mg tablet 800 mg PO Q8H PRN #15 tabs 08/28/23 01/13/25 duloxetine 60 mg capsule,delayed 60 mg PO DAILY #30 caps 09/08/24 01/13/25 release gabapentin 800 mg tablet 800 mg PO QID #28 tabs 09/08/24 01/13/25 lamotrigine 50 mg tablet,extended 50 mg PO DAILY #30 tabs 09/08/24 01/13/25 release 24 hr methylphenidate HCl 40 mg biphasic 40 mg PO QAM #7 caps 09/08/24 01/13/25 50-50 capsule,extended release (Ritalin LA) methylphenidate HCl 5 mg tablet 5 mg PO QPM #7 tabs 09/08/24 01/13/25 aripiprazole 5 mg tablet 5 mg PO DAILY 10/25/24 01/13/25 cyclobenzaprine 10 mg tablet 10 mg PO TID #14 tabs 11/03/24 01/13/25 lidocaine 5 % topical patch 1 patch topical Q24H #15 ea 11/03/24 01/13/25 (Lidoderm) amoxicillin 875 mg-potassium 1 tab PO BID #14 tabs 01/04/25 01/13/25 clavulanate 125 mg tablet sulfamethoxazole 800 1 tab PO BID #14 tabs 01/04/25 01/13/25 mg-trimethoprim 160 mg tablet (Bactrim DS) furosemide 20 mg tablet (Lasix) 20 mg PO DAILY #3 tabs 01/13/25 Previous Rx's Medication Instructions Recorded naloxone 4 mg/actuation nasal spray 4 mg intranasal Q2M PRN #2 ea 12/25/22 acetaminophen 500 mg tablet 1,000 mg (2 x 500 mg) PO Q6H PRN 08/28/23 #40 tabs ibuprofen 800 mg tablet 800 mg PO Q8H PRN #15 tabs 08/28/23 duloxetine 60 mg capsule,delayed 60 mg PO DAILY #30 caps 09/08/24 release gabapentin 800 mg tablet 800 mg PO QID #28 tabs 09/08/24 lamotrigine 50 mg tablet,extended 50 mg PO DAILY #30 tabs 09/08/24 release 24 hr methylphenidate HCl 40 mg biphasic 40 mg PO QAM #7 caps 09/08/24 50-50 capsule,extended release (Ritalin LA) methylphenidate HCl 5 mg tablet 5 mg PO QPM #7 tabs 09/08/24 cyclobenzaprine 10 mg tablet 10 mg PO TID #14 tabs 11/03/24 lidocaine 5 % topical patch 1 patch topical Q24H #15 ea 11/03/24 (Lidoderm) amoxicillin 875 mg-potassium 1 tab PO BID #14 tabs 01/04/25 clavulanate 125 mg tablet sulfamethoxazole 800 1 tab PO BID #14 tabs 01/04/25 mg-trimethoprim 160 mg tablet (Bactrim DS) furosemide 20 mg tablet (Lasix) 20 mg PO DAILY #3 tabs 01/13/25 Allergies Allergy/AdvReac Type Severity Reaction Status Date / Time bupropion HCl (From AdvReac Intermediate Contraindic Verified 01/13/25 11:48 Wellbutrin SR) ated General Stated Complaint: ETOHWithdr CELESTE: 3 Exam Narrative Exam Narrative: Alert oriented but tired 39-year-old female in no acute distress, cardiac rate rhythm regular no murmur pupils equal round reactive to light and accommodation lungs clear to auscultation slightly slurred speech GCS 15 2+ edema to left lower extremity no meningismus Course Vital Signs Vital signs: Vital Signs Temperature 36.6 C 01/13/25 11:42 Pulse 78 01/13/25 11:42 Respiratory Rate 18 01/13/25 11:42 Blood Pressure 106/72 01/13/25 11:42 Pulse Oximetry 90 L 01/13/25 11:42 Temperature 36.6 C 01/13/25 11:42 Pulse 78 01/13/25 11:42 Respiratory Rate 18 01/13/25 11:42 Blood Pressure 106/72 01/13/25 11:42 Pulse Oximetry 90 L 01/13/25 11:42 Pain Level 0 01/13/25 11:42 Medical Decision Making Results: EKG does not show acute ischemia or QTc prolongation UDS positive for amphetamines methadone and cocaine all of which patient endorses, CBC and CMP reassuring, hemoglobin and hematocrit stable Assessment and plan: 39-year-old female initial presentation but was alcohol withdrawal although patient is exhibiting no signs or symptoms of alcohol withdrawal upon this encounter, it sounds like she perhaps had a presyncopal versus syncopal event, she has been alert and oriented although does endorse using cocaine yesterday evening. She denies any chest pain or current shortness of breath. Her lungs are clear to auscultation she is answering questions appropriately. She is not POC negative hemoglobin hematocrit are stable for patient she was observed on telemetry without obvious dysrhythmia. It sound like she is drinking alcohol again, we had a long discussion and she will talk to her doctor about possible options so that she can refrain from alcohol use, I am not sure if Vivitrol might be an option but I will leave this at the discretion of her PCP. She does have some peripheral edema I will order a DVT study for Thursday and compression stockings with Lasix for the next 3 days. [facility] referral and patient encouraged to follow-up with [facility] for counselor. At this time I think she stable for discharge home. She is requesting her methadone I will give her 140 mg. She is alert, oriented, answering questions appropriately and has stable vitals at time of discharge home Quality:SDOH Health Related Social Needs: Health related social needs house/econ circumstance lonely/isolated Health related social needs details patient utilizes the [facility] All Active Problems (Updated 01/13/25 @ 15:17 by CHARLIE De La Cruz) Edema, peripheral (Acute) Mental status change resolved (Acute) Cellulitis of left leg (Acute) Alcohol abuse (Acute) Contusion of left lower leg, initial encounter (Acute) Mild tricuspid regurgitation (Chronic) Smoker (Acute) History of prior with IUGR (Acute 01/11/15) History of kidney injury (Acute 01/17/16) Acute January, History of drug abuse (Acute 01/17/16) In treatment at [place], no longer on methadone as of 01/17/16. Family court is close to resolved - will end . She is expecting 1st daughter to come home. Insomnia (Acute) Anxiety (Chronic) Anemia (Chronic) Opioid dependence (Acute) Mitral regurgitation (Chronic) Medical History Cardiomyopathy (01/22/16) Hepatitis C IVDU (intravenous drug user) Methadone maintenance therapy patient Exhausted vascular access Left posterior fascicular block (LPFB) RBBB Closed head injury Cardiac arrest with successful resuscitation Pulmonary nodules Anemia Alcohol abuse Hx of cocaine abuse Personality disorder Herpes, vulvar PTSD (post-traumatic stress disorder) ADHD Subacute endocarditis (01/22/16) MSSA endocarditis January, HSV infection Hx of infant who one week after . ? HSV or H1N1 infection. Pt has been on prophylaxis with pregnancies. Depression difficulty bonding with 2nd child. child removed from her custody. was on Wellbutrin but had sz and not on meds at this time. has appt with counselor 03/2015 Surgical History section (11/24/12) PCD @ 35w. IUGR. [facility]. [id number]. [facility] [place] RCD. Pt arrived in labor and declined SUN. [facility]. Amputation 12/23/16;[facility]; RIGHT BELOW THE KNEE Family History Mother No problems noted. Father No problems noted. Brother No problems noted. Grandfather No problems noted. Grandfather No problems noted. Grandmother No problems noted. Grandmother No problems noted. Son No problems noted. Son No problems noted. Daughter No problems noted. Daughter No problems noted. Social History Smoking/Tobacco Use Status: Current every day Tobacco Type: cigarettes Smoking risk assessment performed?: Yes Alcohol Intake: current Alcohol Intake frequency: a few times a month Alcohol type: beer Drug use: Socially Substance use type: former substance user, crack/cocaine, heroin, amphetamines, opiates, IV drugs, methamphetamine and unknown Housing: house Do you feel safe at home: Yes Do you feel safe in your relationship?: Yes Additional Social history: pt states she is on methadone, states lives with father History History 4 Para 4 Hx # Term Pregnancies Multiple births Hx # Pregnancies Ectopic pregnancies AB induced Hx Number of Living Children 3 AB spontaneous Past Pregnancies Del. Date GA/Weeks # Preg Succ Route Wgt Sex Labor Lgth Anesthesia Location Prov Complic 12/28/20 25 Delivery Date: 12/28/20 Last Updated by: Roxanna Rocha LPN Patient transferred OB care to [facility]
[2025-01-13] MEDS: Normal Saline 1,000 ML 1000 ML IV (12:45)
[2025-01-13 13:01] LABS: Abs Immature Grans 0.01 10^3/uL (0.0-0.06); HCT 32.5 % (36.0-46.0); HGB 10.8 g/dL (11.2-15.7); Immature Grans % 0.3 %; MCH 30.2 pg (27.0-33.0); MCHC 33.2 % (32.0-36.0); MCV 91 fL (80-95); MPV 8.7 fL (8.0-11.0); Platelet Count 203 10^3/uL (130-400); RBC 3.58 10^6/uL (3.93-5.22); RDW 13.9 % (11.7-14.6); RDW-SD 46.6 fL; WBC 3.51 10^3/uL (4.4-10.8)
[2025-01-13 13:36] LABS: ALT 23 U/L (14-59); AST 29 U/L (15-37); Albumin 3.2 g/dL (3.4-5.0); Alkaline Phosphatase 115 U/L (46-116); Anion Gap 9.3 mmol/L (3-11); BUN 10 mg/dL (7-18); Bilirubin, Total 0.1 mg/dL (0.2-1.0); CO2 26.7 mmol/L (21.0-32.0); Calcium 8.4 mg/dL (8.5-10.1); Chloride 101 mmol/L (98-107); Glucose 95 mg/dL (74-106); Magnesium 1.9 mg/dL (1.8-2.4); Potassium 4.4 mmol/L (3.5-5.1); Sodium 137 mmol/L (136-145); TSH (W/Ref FT4) 2.26 uIU/mL (0.36-3.74); Total Protein 7.5 g/dL (6.4-8.2)
[2025-01-13] MEDS: Methadone Liquid 10 MG/ML 140 MG PO (15:17)
[2025-01-13 15:30] LABS: Cannabinoids THC Negative (Negative)
== END 2025-01-13 16:02 | disposition home or self-care (01) ==
PROVIDERS: Emergency Provider Physician Assistant; PCP Physician Assistant
DX: R60.0 Localized edema (principal)
CPT/HCPCS: 99284 ×2; 81025; 80053; 80307; 93005; 96360; 80320; 83735; 84443; 85025; 93010

== ENCOUNTER 2025-02-22 15:19 | Emergency (ER) | payer MEDICAID, SELFPAY ==
[2025-02-22 15:30] VITALS: BP 120/79; PULSE 102; RESP 18; TEMP 36.6; O2SAT 98
--- NOTE | 2025-02-22 15:50 | W.ED.GENAD ---
Discharge Plan Disposition Patient Disposition: Home Condition: Stable Discharge Details Clinical Impression: Cellulitis of left hip Primary Care Provider: Glenn Tinajero ED Provider: Theodore Pink Home Meds and New Rx's Prescriptions: New sulfamethoxazole-trimethoprim 800-160 mg tablet 1 tab PO BID 10 Days Qty: 20 0RF mupirocin [Centany] 2 % ointment 1 applic topical TID Qty: 15 0RF Continued methadone 10 mg/mL Concentrate 160 mg PO DAILY Patient Comments: verified dose 10/01/24 w/[facility] Rx Instructions: CONFIRMED DOSE WITH [facility] 05/02/24 :120mg naloxone 4 mg/actuation spray,non-aerosol 4 mg intranasal Q2M PRNQty: 2 12RF Rx Instructions: spray 1 dose into ONE nostril; alternate nostrils w each dose until help arrives aripiprazole 5 mg tablet 5 mg PO DAILY Patient Comments: TAKE ONE TABLET BY MOUTH EVERY DAY furosemide 20 mg tablet 20 mg PO DAILY PRN PRN (Reason: Edema) Patient Comments: 1 tablet by mouth once a day as needed TAKE ONE TABLET BY MOUTH EVERY DAY as needed for edema acetaminophen 500 mg tablet 1,000 mg PO Q6H PRNQty: 40 0RF ibuprofen 800 mg tablet 800 mg PO Q8H PRNQty: 15 0RF methylphenidate HCl 5 mg tablet 5 mg PO QPM Qty: 7 0RF methylphenidate HCl [Ritalin LA] 40 mg capsule,ER biphasic 50-50 40 mg PO QAM Qty: 7 0RF duloxetine 60 mg capsule,delayed release(DR/EC) 60 mg PO DAILY Qty: 30 0RF gabapentin 800 mg tablet 800 mg PO QID Qty: 28 0RF lamotrigine 50 mg tablet extended release 24hr 50 mg PO DAILY Qty: 30 0RF cyclobenzaprine 10 mg tablet 10 mg PO TID Qty: 14 0RF lidocaine [Lidoderm] 5 % adhesive patch,medicated 1 patch Topical Q24H Qty: 15 0RF furosemide [Lasix] 20 mg tablet 20 mg PO DAILY Qty: 3 0RF Discharge Instructions Instructions: Sulfamethoxazole and Trimethoprim, Mupirocin, Cellulitis (Skin Infection), Adult ED Additional Instructions: You were seen in the emergency department for your infected wound of left hip, this is a draining abscess, we did take a wound culture so we will get a report back in a matter of a few days to make sure the antibiotic works on this bacteria, in the meantime continue hot compresses, use the topical Neupro send 2-3 times per day and take the Bactrim antibiotic orally as prescribed, take Tylenol and ibuprofen for pain, return for any severe acute worsening despite treatment. You had an incidental finding of elevated liver enzymes, and I sent out a test for several forms of hepatitis, this should result in 4 to 5 days, please call back if you have not heard on results. Stand Alone Forms: Portal Information Referrals: Glenn Tinajero [Primary Care Provider, Medicine] Discharge Data Discharge Date/Time-TO BE ENTERED AT DEPARTURE: 02/22/25 17:50 HPI General Date/Time Provider Initiated Documentation: 02/22/25 15:35. HPI Narrative: 39 year-old female presents to ED today by POV/ambulating with her daughter with a chief complaint of draining boil on her left anterior thigh, intermittent fever/chills with onset of fever today, the boil has been ongoing for about a week. Quality described as drainage of pus, redness, no radiation to red streaking, nausea, shortness of breath, cough, headache, profound lethargy, chest pain, patient endorses mild swelling to the left leg, has a contralateral prosthesis. Severity is described as moderate. Palliating factors include has been performing hot compresses. Provoking factors include nothing specific. Events leading up to the incident/Associated Symptoms: Patient also wants her daughter checked for respiratory infection. Patient not anticoagulated. Related Data Home Medications ?Medication ?Instructions ?Recorded ?Confirmed methadone 10 mg/mL oral concentrate 160 mg PO DAILY 06/02/21 02/22/25 furosemide 20 mg tablet 20 mg PO DAILY PRN PRN Edema 12/03/22 02/22/25 naloxone 4 mg/actuation nasal spray 4 mg intranasal Q2M PRN #2 ea 12/25/22 02/22/25 acetaminophen 500 mg tablet 1,000 mg (2 x 500 mg) PO Q6H PRN 08/28/23 02/22/25 #40 tabs ibuprofen 800 mg tablet 800 mg PO Q8H PRN #15 tabs 08/28/23 02/22/25 duloxetine 60 mg capsule,delayed 60 mg PO DAILY #30 caps 09/08/24 02/22/25 release gabapentin 800 mg tablet 800 mg PO QID #28 tabs 09/08/24 02/22/25 lamotrigine 50 mg tablet,extended 50 mg PO DAILY #30 tabs 09/08/24 02/22/25 release 24 hr methylphenidate HCl 40 mg biphasic 40 mg PO QAM #7 caps 09/08/24 02/22/25 50-50 capsule,extended release (Ritalin LA) methylphenidate HCl 5 mg tablet 5 mg PO QPM #7 tabs 09/08/24 02/22/25 aripiprazole 5 mg tablet 5 mg PO DAILY 10/25/24 02/22/25 cyclobenzaprine 10 mg tablet 10 mg PO TID #14 tabs 11/03/24 02/22/25 lidocaine 5 % topical patch 1 patch topical Q24H #15 ea 11/03/24 02/22/25 (Lidoderm) furosemide 20 mg tablet (Lasix) 20 mg PO DAILY #3 tabs 01/13/25 02/22/25 mupirocin 2 % topical ointment 1 applic topical TID #15 grams 02/22/25 (Centany) sulfamethoxazole 800 1 tab PO BID 10 days #20 tabs 02/22/25 mg-trimethoprim 160 mg tablet Previous Rx's ?Medication ?Instructions ?Recorded naloxone 4 mg/actuation nasal spray 4 mg intranasal Q2M PRN #2 ea 12/25/22 acetaminophen 500 mg tablet 1,000 mg (2 x 500 mg) PO Q6H PRN 08/28/23 #40 tabs ibuprofen 800 mg tablet 800 mg PO Q8H PRN #15 tabs 08/28/23 duloxetine 60 mg capsule,delayed 60 mg PO DAILY #30 caps 09/08/24 release gabapentin 800 mg tablet 800 mg PO QID #28 tabs 09/08/24 lamotrigine 50 mg tablet,extended 50 mg PO DAILY #30 tabs 09/08/24 release 24 hr methylphenidate HCl 40 mg biphasic 40 mg PO QAM #7 caps 09/08/24 50-50 capsule,extended release (Ritalin LA) methylphenidate HCl 5 mg tablet 5 mg PO QPM #7 tabs 09/08/24 cyclobenzaprine 10 mg tablet 10 mg PO TID #14 tabs 11/03/24 lidocaine 5 % topical patch 1 patch topical Q24H #15 ea 11/03/24 (Lidoderm) furosemide 20 mg tablet (Lasix) 20 mg PO DAILY #3 tabs 01/13/25 mupirocin 2 % topical ointment 1 applic topical TID #15 grams 02/22/25 (Centany) sulfamethoxazole 800 1 tab PO BID 10 days #20 tabs 02/22/25 mg-trimethoprim 160 mg tablet Allergies Allergy/AdvReac Type Severity Reaction Status Date / Time bupropion HCl (From AdvReac Intermediate Contraindic Verified 02/22/25 15:32 Wellbutrin SR) ated General Stated Complaint: Cellulitis CELESTE: 3 Review of Systems All systems reviewed & are unremarkable except as noted in HPI and below Exam Narrative Exam Narrative: GENERAL APPEARANCE: Well-nourished, non-toxic, awake and alert, atraumatic, no acute distress. SKIN: Warm, pink, dry, 1x1cm draining abscess to L anterior hip, mild erythema 4x4cm surrounding this with no lymphadenitis HEAD: Normocephalic, atraumatic, normal hair distribution for gender/age. EYES: Normal conjunctiva, no exudates on lids/lashes. ENT: Nares patent, no circumoral cyanosis, no facial swelling NECK: Supple, trachea midline, painless cervical ROM. LUNGS/CHEST: Lungs CTA bilaterally- no rhonchi/rales/wheezes diffusely, non-labored respirations, normal A/P diameter, symmetrical expansion, no chest wall deformity HEART (CV/PV): Regular rate and rhythm without murmur, no peripheral edema, no JVD. ABDOMEN: Soft, non-distended, no guarding. MSK: Normal ROM, no swelling/deformity to bilateral UEs or LEs, moving all extremities without weakness, no cyanosis, spine midline without tenderness, normal curvature. NEURO: Mental Status AAOx4 - alert to person, place, time, events No facial droop, no forehead involvement. Motor: No focal weakness - strength 5/5 in bilateral UEs and LEs, proximal and distal, symmetric. Sensory: sensation intact to light touch globally. Gait normal: patient ambulated without ataxia into ED room. PSYCH: euthymic, cooperative, pleasant, appropriate speech Course Vital Signs Vital signs: Vital Signs Temperature 36.6 C 02/22/25 15:30 Pulse 102 H 02/22/25 15:30 Respiratory Rate 18 02/22/25 15:30 Blood Pressure 120/79 02/22/25 15:30 Pulse Oximetry 98 02/22/25 15:30 Temperature 36.6 C 02/22/25 15:30 Pulse 102 H 02/22/25 15:30 Respiratory Rate 18 02/22/25 15:30 Blood Pressure 120/79 02/22/25 15:30 Pulse Oximetry 98 02/22/25 15:30 Pain Level 5 02/22/25 15:30 Medical Decision Making This dictation utilizes [id number] dictation software and may contain unedited grammatical errors. 39 year-old female presents to ED today by POV/ambulating with her daughter with a chief complaint of draining boil on her left anterior thigh, intermittent fever/chills with onset of fever today, the boil has been ongoing for about a week. Quality described as drainage of pus, redness, no radiation to red streaking, nausea, shortness of breath, cough, headache, profound lethargy, chest pain, patient endorses mild swelling to the left leg, has a contralateral prosthesis. Severity is described as moderate. Palliating factors include has been performing hot compresses. Provoking factors include nothing specific. Events leading up to the incident/Associated Symptoms: Patient also wants her daughter checked for respiratory infection. Patients' medical history: History of hepatitis C, IVDU, polysubstance abuse, frequent alcohol use. Family and social history: Endorses still drinking red wine occasionally denies heavy drinking, states she sometimes still does drugs. Pertinent exam findings / vital signs include 1 x 1 cm draining abscess to the left anterior thigh and hip flexor area, no red streaking outward, has an area of mild erythema surrounding about 4 x 4 cm, no pitting edema to lower extremity, benign cardiopulmonary status, nontoxic and afebrile. Differential / pathologies of concern include draining abscess, cellulitis, sepsis. Diagnostic studies of: - CBC, CMP, lactate, blood cultures, wound culture. - CBC shows no leukocytosis - Lactate 2.6 but not likely in the setting of sepsis - CMP shows significantly elevated LFTs with AST and ALT both just above 200, patient is aware of her hep C, I did send an acute hepatitis panel - Wound and blood cultures pending Interventions of: - Started on Bactrim and Rx for topical mupirocin and recommend aggressive wound care. ED Course/Assessment/Plan: 39-year-old female presents with draining abscess to the left anterior hip area she has elevated LFTs incidentally on labs with known hep C, I did start her on Bactrim and topical mupirocin and recommend she continue hot compresses with strict return criteria for any acute worsening. Findings not consistent with sepsis, acute liver failure, active intoxication. Disposition of cellulitis of left hip. Patient verbalized understanding of the plan and return to ED criteria and engaged in shared decision making. Medical Records Medical records reviewed: Yes I reviewed the patient's medical records. Lab Data Lab results reviewed: Yes I reviewed the patient's lab results. Labs: 02/22/25 16:28 Hip - Left Wound Culture - Pending 02/22/25 16:28 Hip - Left Gram Stain - Final 02/22/25 17:00 Blood Blood Culture - Pending 02/22/25 16:46 Blood Blood Culture - Pending Laboratory Tests Range/Units 02/22/25 16:46 WBC (4.4-10.8) 10^3/uL 8.08 RBC (3.93-5.22) 10^6/uL 4.09 Hgb (11.2-15.7) g/dL 12.4 Hct (36.0-46.0) % 38.4 MCV (80-95) fL 94 MCH (27.0-33.0) pg 30.3 MCHC (32.0-36.0) % 32.3 RDW (11.7-14.6) % 13.4 Plt Count (130-400) 10^3/uL 189 MPV (8.0-11.0) fL 9.0 Immature Gran % % 0.4 Neutrophils % % 80.7 Lymphocytes % % 9.8 Monocytes % % 7.3 Eosinophils % % 1.4 Basophils % % 0.4 Nucleated RBC % (0.0-0.3) % 0.0 Absolute Neutrophils (1.2-6.7) 10^3/uL 6.53 Absolute Lymphocytes (1.2-3.4) 10^3/uL 0.79 L Absolute Monocytes (0.1-0.8) 10^3/uL 0.59 Absolute Eosinophils (0.0-0.7) 10^3/uL 0.11 Absolute Basophils (0.0-0.2) 10^3/uL 0.03 VBG Lactate (<or=2.0) mmol/L 2.6 H* Sodium (136-145) mmol/L 138 Potassium (3.5-5.1) mmol/L 4.5 Chloride (98-107) mmol/L 101 Carbon Dioxide (20.0-31.0) mmol/L 29.3 Anion Gap (3-11) mmol/L 7.7 BUN (9-23) mg/dL 7 L Creatinine (0.55-1.02) mg/dL 0.69 Est GFR (CKD-EPI 2020) (mL/min/1.73m2) 93.95 Glucose (74-106) mg/dL 102 Calcium (8.3-10.6) mg/dL 8.9 Total Bilirubin (0.2-1.2) mg/dL 0.4 AST (<34) U/L 201 H ALT (10-49) U/L 205 H Alkaline Phosphatase (46-116) U/L 173 H Total Protein (5.7-8.2) g/dL 7.9 Albumin (3.2-5.0) g/dL 4.3 Quality:SDOH Health Related Social Needs: Health related social needs house/econ circumstance lonely/isolated Health related social needs details patient utilizes the [facility] All Active Problems (Updated 02/22/25 @ 17:28 by CHARLIE Park) Cellulitis of left hip (Acute) Alcohol abuse (Acute) Contusion of left lower leg, initial encounter (Acute) Mild tricuspid regurgitation (Chronic) Smoker (Acute) History of prior with IUGR (Acute 01/11/15) History of kidney injury (Acute 01/17/16) Acute January, History of drug abuse (Acute 01/17/16) In IP treatment at [facility], no longer on methadone as of 01/17/16. Family court is close to resolved - will end . She is expecting 1st daughter to come home. Insomnia (Acute) Anxiety (Chronic) Anemia (Chronic) Opioid dependence (Acute) Mitral regurgitation (Chronic) Medical History Cardiomyopathy (01/22/16) Hepatitis C IVDU (intravenous drug user) Methadone maintenance therapy patient Exhausted vascular access Left posterior fascicular block (LPFB) RBBB Closed head injury Cardiac arrest with successful resuscitation Pulmonary nodules Anemia Alcohol abuse Hx of cocaine abuse Personality disorder Herpes, vulvar PTSD (post-traumatic stress disorder) ADHD Subacute endocarditis (01/22/16) MSSA endocarditis January, HSV infection Hx of infant who one week after . ? HSV or H1N1 infection. Pt has been on prophylaxis with pregnancies. Depression difficulty bonding with 2nd child. child removed from her custody. was on Wellbutrin but had sz and not on meds at this time. has appt with counselor 03/2015 Surgical History section (11/24/12) PCD @ 35w. IUGR. [facility]. [id number]. [facility]. 03/26/15 RCD. Pt arrived in labor and declined SUN. [facility]. [facility]. Amputation 12/23/16;[facility]; RIGHT BELOW THE KNEE Family History Mother No problems noted. Father No problems noted. Brother No problems noted. Grandfather No problems noted. Grandfather No problems noted. Grandmother No problems noted. Grandmother No problems noted. Son No problems noted. Son No problems noted. Daughter No problems noted. Daughter No problems noted. Social History Smoking/Tobacco Use Status: Current every day Tobacco Type: cigarettes and e-cigarettes Smoking risk assessment performed?: Yes Alcohol Intake: current Alcohol Intake frequency: a few times a month Alcohol type: beer Drug use: Socially Substance use type: former substance user, crack/cocaine, heroin, amphetamines, opiates, IV drugs, methamphetamine and unknown Housing: house Do you feel safe at home: Yes Do you feel safe in your relationship?: Yes Additional Social history: pt states she is on methadone, states lives with father History History 4 Para 4 Hx # Term Pregnancies Multiple births Hx # Pregnancies Ectopic pregnancies AB induced Hx Number of Living Children 3 AB spontaneous Past Pregnancies Del. Date GA/Weeks # Preg Succ Route Wgt Sex Labor Lgth Anesthesia Location [facility] 12/28/20 25 Delivery Date: 12/28/20 Last Updated by: Roxanna Rocha LPN Patient transferred OB care to [facility]
[2025-02-22 16:38] VITALS: BP 120/79; PULSE 102; RESP 18; TEMP 36.6; O2SAT 98
[2025-02-22 16:56] LABS: Abs Immature Grans 0.03 10^3/uL (0.0-0.06); HCT 38.4 % (36.0-46.0); HGB 12.4 g/dL (11.2-15.7); Immature Grans % 0.4 %; MCH 30.3 pg (27.0-33.0); MCHC 32.3 % (32.0-36.0); MCV 94 fL (80-95); MPV 9.0 fL (8.0-11.0); Platelet Count 189 10^3/uL (130-400); RBC 4.09 10^6/uL (3.93-5.22); RDW 13.4 % (11.7-14.6); RDW-SD 46.5 fL; WBC 8.08 10^3/uL (4.4-10.8)
[2025-02-22 17:15] LABS: ALT 205 U/L (10-49); AST 201 U/L (<34); Albumin 4.3 g/dL (3.2-5.0); Alkaline Phosphatase 173 U/L (46-116); Anion Gap 7.7 mmol/L (3-11); BUN 7 mg/dL (9-23); Bilirubin, Total 0.4 mg/dL (0.2-1.2); CO2 29.3 mmol/L (20.0-31.0); Calcium 8.9 mg/dL (8.3-10.6); Chloride 101 mmol/L (98-107); Glucose 102 mg/dL (74-106); Potassium 4.5 mmol/L (3.5-5.1); Sodium 138 mmol/L (136-145); Total Protein 7.9 g/dL (5.7-8.2)
[2025-02-22] MEDS: Sulfameth/Trimeth DS, 2 TABS/BTL 1 TAB PO (17:35)
[2025-02-23 20:40] LABS: Hepatitis A Antibody IgM Negative (Negative); Hepatitis C Ab w Rflx HCV PCR Reactive (Negative)
[2025-02-24 11:24] LABS: HCV RNA Qualitative Detected (Undetected)
[2025-02-27 12:27] LABS: HBc IgM Ab, S Negative (Negative)
== END 2025-02-22 17:50 | disposition home or self-care (01) ==
PROVIDERS: Emergency Provider Physician Assistant; PCP Physician Assistant
DX: L03.116 Cellulitis of left lower limb (principal); Z59.89 Other problems related to housing and economic circumstances; Z60.8 Other problems related to social environment
CPT/HCPCS: 36415; 80053; 86704; 86709; 86803; 87040; 87077; 87340; 87522; 99283; 83605; 85025; 86705; 87070; 87186; 87205

== ENCOUNTER 2025-02-23 09:58 | Emergency (ER) | payer MEDICAID, SELFPAY ==
[2025-02-23 10:04] VITALS: BP 124/81; PULSE 78; RESP 16; TEMP 36.5; O2SAT 98
--- NOTE | 2025-02-23 11:31 | W.ED.GENAD ---
Discharge Plan Disposition Patient Disposition: Against Medical Advice Condition: Critical Discharge Details Clinical Impression: Blood culture positive for microorganism Primary Care Provider: Glenn Tinajero ED Provider: Patricia Pereira Home Meds and New Rx's Prescriptions: No Action methadone 10 mg/mL Concentrate 160 mg PO DAILY Patient Comments: verified dose 10/01/24 w/BAART Rx Instructions: CONFIRMED DOSE WITH [facility] 05/02/24 :120mg naloxone 4 mg/actuation spray,non-aerosol 4 mg intranasal Q2M PRNQty: 2 12RF Rx Instructions: spray 1 dose into ONE nostril; alternate nostrils w each dose until help arrives aripiprazole 5 mg tablet 5 mg PO DAILY Patient Comments: TAKE ONE TABLET BY MOUTH EVERY DAY furosemide 20 mg tablet 20 mg PO DAILY PRN PRN (Reason: Edema) Patient Comments: 1 tablet by mouth once a day as needed TAKE ONE TABLET BY MOUTH EVERY DAY as needed for edema acetaminophen 500 mg tablet 1,000 mg PO Q6H PRNQty: 40 0RF ibuprofen 800 mg tablet 800 mg PO Q8H PRNQty: 15 0RF methylphenidate HCl 5 mg tablet 5 mg PO QPM Qty: 7 0RF methylphenidate HCl [Ritalin LA] 40 mg capsule,ER biphasic 50-50 40 mg PO QAM Qty: 7 0RF duloxetine 60 mg capsule,delayed release(DR/EC) 60 mg PO DAILY Qty: 30 0RF gabapentin 800 mg tablet 800 mg PO QID Qty: 28 0RF lamotrigine 50 mg tablet extended release 24hr 50 mg PO DAILY Qty: 30 0RF cyclobenzaprine 10 mg tablet 10 mg PO TID Qty: 14 0RF lidocaine [Lidoderm] 5 % adhesive patch,medicated 1 patch Topical Q24H Qty: 15 0RF furosemide [Lasix] 20 mg tablet 20 mg PO DAILY Qty: 3 0RF sulfamethoxazole-trimethoprim 800-160 mg tablet 1 tab PO BID 10 Days Qty: 20 0RF mupirocin [Centany] 2 % ointment 1 applic topical TID Qty: 15 0RF Discharge Instructions Stand Alone Forms: Portal Information HPI General Date/Time Provider Initiated Documentation: 02/23/25 10:14. HPI Narrative: This 39-year-old female with history of endocarditis alcohol abuse opiate abuse on methadone dependence and recent diagnosis of an abscess on left hip secondary to trauma with positive blood cultures presents for reassessment. She was instructed to return to the emergency department as she has positive blood cultures which were drawn yesterday. She is taking the Bactrim as prescribed. She states that she has general body aches, cough, weakness and her temp was 103 degrees orally prior to arrival she did take Tylenol. She does consume approximately 612 ounce packages of wine daily denies history of withdrawal. She is compliant with her methadone clinic administration and did receive her methadone dose prior to arrival. She has not used any IV illicit substances since approximately 2 months ago. She denies any chest pain or shortness of breath. She has had some pain across her back last evening but states this is resolved today. She does have tenderness overlying the abscess site which has been draining. She injured her head approximately a week and a half ago. She states she was sliding down a hill and a metal pole caused a laceration to her skin. Denies any known foreign body. Denies any chance of . Denies any stiff neck or headache. States she generally feels unwell. Related Data Home Medications ?Medication ?Instructions ?Recorded ?Confirmed methadone 10 mg/mL oral concentrate 160 mg PO DAILY 06/02/21 02/22/25 furosemide 20 mg tablet 20 mg PO DAILY PRN PRN Edema 12/03/22 02/22/25 naloxone 4 mg/actuation nasal spray 4 mg intranasal Q2M PRN #2 ea 12/25/22 02/22/25 acetaminophen 500 mg tablet 1,000 mg (2 x 500 mg) PO Q6H PRN 08/28/23 02/22/25 #40 tabs ibuprofen 800 mg tablet 800 mg PO Q8H PRN #15 tabs 08/28/23 02/22/25 duloxetine 60 mg capsule,delayed 60 mg PO DAILY #30 caps 09/08/24 02/22/25 release gabapentin 800 mg tablet 800 mg PO QID #28 tabs 09/08/24 02/22/25 lamotrigine 50 mg tablet,extended 50 mg PO DAILY #30 tabs 09/08/24 02/22/25 release 24 hr methylphenidate HCl 40 mg biphasic 40 mg PO QAM #7 caps 09/08/24 02/22/25 50-50 capsule,extended release (Ritalin LA) methylphenidate HCl 5 mg tablet 5 mg PO QPM #7 tabs 09/08/24 02/22/25 aripiprazole 5 mg tablet 5 mg PO DAILY 10/25/24 02/22/25 cyclobenzaprine 10 mg tablet 10 mg PO TID #14 tabs 11/03/24 02/22/25 lidocaine 5 % topical patch 1 patch topical Q24H #15 ea 11/03/24 02/22/25 (Lidoderm) furosemide 20 mg tablet (Lasix) 20 mg PO DAILY #3 tabs 01/13/25 02/22/25 mupirocin 2 % topical ointment 1 applic topical TID #15 grams 02/22/25 (Centany) sulfamethoxazole 800 1 tab PO BID 10 days #20 tabs 02/22/25 mg-trimethoprim 160 mg tablet Previous Rx's ?Medication ?Instructions ?Recorded naloxone 4 mg/actuation nasal spray 4 mg intranasal Q2M PRN #2 ea 12/25/22 acetaminophen 500 mg tablet 1,000 mg (2 x 500 mg) PO Q6H PRN 08/28/23 #40 tabs ibuprofen 800 mg tablet 800 mg PO Q8H PRN #15 tabs 08/28/23 duloxetine 60 mg capsule,delayed 60 mg PO DAILY #30 caps 09/08/24 release gabapentin 800 mg tablet 800 mg PO QID #28 tabs 09/08/24 lamotrigine 50 mg tablet,extended 50 mg PO DAILY #30 tabs 09/08/24 release 24 hr methylphenidate HCl 40 mg biphasic 40 mg PO QAM #7 caps 09/08/24 50-50 capsule,extended release (Ritalin LA) methylphenidate HCl 5 mg tablet 5 mg PO QPM #7 tabs 09/08/24 cyclobenzaprine 10 mg tablet 10 mg PO TID #14 tabs 11/03/24 lidocaine 5 % topical patch 1 patch topical Q24H #15 ea 11/03/24 (Lidoderm) furosemide 20 mg tablet (Lasix) 20 mg PO DAILY #3 tabs 01/13/25 mupirocin 2 % topical ointment 1 applic topical TID #15 grams 02/22/25 (Centany) sulfamethoxazole 800 1 tab PO BID 10 days #20 tabs 02/22/25 mg-trimethoprim 160 mg tablet Allergies Allergy/AdvReac Type Severity Reaction Status Date / Time bupropion HCl (From AdvReac Intermediate Contraindic Verified 02/23/25 10:10 Wellbutrin SR) ated General Stated Complaint: Cellulitis CELESTE: 3 Exam Narrative Exam Narrative: Alert and oriented 39-year-old female appears tired lungs have wheezes no respiratory distress, cardiac rate rhythm regular no abdominal tenderness no flank tenderness draining abscess noted to left upper thigh over anterior aspect, no lymphangitis no CVA tenderness distal pulse intact to left lower extremity right lower extremity prosthetic device in place pupils are equal round reactive to light and accommodation no meningismus answering questions appropriately Course Vital Signs Vital signs: Vital Signs Temperature 36.5 C 02/23/25 10:04 Pulse 78 02/23/25 10:04 Respiratory Rate 16 02/23/25 10:04 Blood Pressure 124/81 02/23/25 10:04 Pulse Oximetry 98 02/23/25 10:04 Temperature 36.5 C 02/23/25 10:04 Temperature Source Oral 02/23/25 10:04 Pulse 78 02/23/25 10:04 Respiratory Rate 16 02/23/25 10:04 Blood Pressure 124/81 02/23/25 10:04 Blood Pressure Position Sitting 02/23/25 10:04 Pulse Oximetry 98 02/23/25 10:04 Oxygen Delivery Method Room Air 02/23/25 10:04 Oxygen Flow Rate 0 02/23/25 10:04 Pain Level 5 02/23/25 10:04 Comment tylenol and ibuprofen 02/23/25 10:04 Medical Decision Making Assessment and plan: I ordered diagnostic imaging and blood work on this patient and plan for admission, however she left against medical recommendation as she would like to return to her home to bring supplies for an overnight stay. I was not able to speak with the patient prior to her leaving although she did relay to her registration staff that she was leaving. She was fully alert, oriented, decisional capacity at time of my initial assessment. She was made aware regarding need for admission for observation and IV antibiotics. Quality:SDOH Health Related Social Needs: Health related social needs house/econ circumstance lonely/isolated Health related social needs details patient utilizes the [facility] All Active Problems (Updated 02/23/25 @ 11:37 by CHARLIE De La Cruz) Blood culture positive for microorganism (Acute) Cellulitis of left hip (Acute) Alcohol abuse (Acute) Contusion of left lower leg, initial encounter (Acute) Mild tricuspid regurgitation (Chronic) Smoker (Acute) History of prior with IUGR (Acute 01/11/15) History of kidney injury (Acute 01/17/16) Acute January, History of drug abuse (Acute 01/17/16) In IP treatment at [place], no longer on methadone as of 01/17/16. Family court is close to resolved - will end . She is expecting 1st daughter to come home. Insomnia (Acute) Anxiety (Chronic) Anemia (Chronic) Opioid dependence (Acute) Mitral regurgitation (Chronic) Medical History Cardiomyopathy (01/22/16) Hepatitis C IVDU (intravenous drug user) Methadone maintenance therapy patient Exhausted vascular access Left posterior fascicular block (LPFB) RBBB Closed head injury Cardiac arrest with successful resuscitation Pulmonary nodules Anemia Alcohol abuse Hx of cocaine abuse Personality disorder Herpes, vulvar PTSD (post-traumatic stress disorder) ADHD Subacute endocarditis (01/22/16) MSSA endocarditis January, HSV infection Hx of infant who one week after . ? HSV or H1N1 infection. Pt has been on prophylaxis with pregnancies. Depression difficulty bonding with 2nd child. child removed from her custody. was on Wellbutrin but had sz and not on meds at this time. has appt with counselor 03/2015 Surgical History section (11/24/12) PCD @ 35w. IUGR. [facility]. [id number]. [facility] [place]. [place]/26[place]CD. Pt arrived in labor and declined SUN. [facility]. Amputation 12/23/16;[facility]; RIGHT BELOW THE KNEE Family History Mother No problems noted. Father No problems noted. Brother No problems noted. Grandfather No problems noted. Grandfather No problems noted. Grandmother No problems noted. Grandmother No problems noted. Son No problems noted. Son No problems noted. Daughter No problems noted. Daughter No problems noted. Social History Smoking/Tobacco Use Status: Current every day Tobacco Type: cigarettes and e-cigarettes Smoking risk assessment performed?: Yes Alcohol Intake: current Alcohol Intake frequency: a few times a month Alcohol type: beer Drug use: Current Sobriety Substance use type: former substance user, crack/cocaine, heroin, amphetamines, opiates, IV drugs, methamphetamine and unknown Housing: house Do you feel safe at home: Yes Do you feel safe in your relationship?: Yes Additional Social history: pt states she is on methadone, states lives with parents History History 4 Para 4 Hx # Term Pregnancies Multiple births Hx # Pregnancies Ectopic pregnancies AB induced Hx Number of Living Children 3 AB spontaneous Past Pregnancies Del. Date GA/Weeks # Preg Succ Route Wgt Sex Labor Lgth Anesthesia Location Prov Complic 12/28/20 25 Delivery Date: 12/28/20 Last Updated by: Roxanna Rocha LPN Patient transferred OB care to [facility]
== END 2025-02-23 11:37 | disposition left against medical advice (07) ==
PROVIDERS: Emergency Provider Physician Assistant; PCP Physician Assistant
DX: R79.89 Other specified abnormal findings of blood chemistry (principal); F10.10 Alcohol abuse, uncomplicated; F19.11 Other psychoactive substance abuse, in remission; Z53.29 Procedure and treatment not carried out because of patient's decision for other reasons
CPT/HCPCS: 99285 ×2

== ENCOUNTER 2025-02-23 12:56 | Inpatient (IN) | payer MEDICAID, SELFPAY ==
[2025-02-23 13:09] VITALS: BP 108/67; PULSE 78; RESP 16; TEMP 36.6; O2SAT 94
[2025-02-23 13:15] VITALS: BP 108/67; PULSE 78; RESP 16; TEMP 36.6; O2SAT 94
--- NOTE | 2025-02-23 13:15 | DI.RAD_ITS ---
Exam(s) XR HIP LT COMPLETE AP PELVIS EXAM: XR HIP LT COMPLETE AP PELVIS CLINICAL HISTORY: abscess, injury left hip. TECHNIQUE: 2D digital imaging was performed. Three views. COMPARISON: No exams were available for comparison FINDINGS: BONES: No acute fracture is present. No bony destructive lesion is seen. JOINTS: No dislocation present. The SI joints and pubic symphysis are intact. No significant degenerative changes. SOFT TISSUE: Normal. IMPRESSION: Unremarkable radiographs of the left hip. DATA REPOSITORY: RADIATION DOSE DELIVERED:
--- NOTE | 2025-02-23 13:15 | RT.EKG_ITS ---
APPROVED REPORT Exam: Resting ECG Reason for Exam: fever, weakness Patient Location: E HR:72 bpm ECG Measurements Heart Rate [address] 150 P 76 QRSd 95 QRS 65 QT 392 T 68 QTc 429 Conclusion Sinus rhythm...normal P axis, V-rate 60- 99 No Occlusion TN
--- NOTE | 2025-02-23 13:15 | DI.RAD_ITS ---
Exam(s) XR CHEST 2V PA LATERAL EXAM: XR CHEST 2V PA LATERAL CLINICAL HISTORY: blood culture + TECHNIQUE: 2D digital imaging was performed. Two views. COMPARISON: No exams were available for comparison FINDINGS: HEART: Normal size. Aorta: Not dilated. PULMONARY VASCULATURE: Normal. MEDIASTINUM: Unremarkable. LUNGS: Biapical scarring, left greater than right, otherwise clear. PLEURAL SPACE: No pleural effusion or pneumothorax. BONE:Unremarkable for age. SOFT TISSUES: Unremarkable. IMPRESSION: No acute abnormality. DATA REPOSITORY: RADIATION DOSE DELIVERED:
[2025-02-23 15:02] LABS: HCG Qual (Serum) Negative
--- NOTE | 2025-02-23 15:24 | W.ED.GENAD ---
Discharge Plan Disposition Patient Disposition: Home Condition: Stable Discharge Details Clinical Impression: Blood culture positive for microorganism, Abscess of left thigh Primary Care Provider: Glenn Tinajero ED Provider: Patricia Pereira Discharge Data Discharge Date/Time-TO BE ENTERED AT DEPARTURE: 02/23/25 17:46 HPI General Date/Time Provider Initiated Documentation: 02/23/25 13:21. HPI Narrative: This 39-year-old female with history of endocarditis alcohol abuse opiate abuse on methadone dependence and recent diagnosis of an abscess on left hip secondary to trauma with positive blood cultures presents for reassessment. She was instructed to return to the emergency department as she has positive blood cultures which were drawn yesterday. She is taking the Bactrim as prescribed. She states that she has general body aches, cough, weakness and her temp was 103 degrees orally prior to arrival she did take Tylenol. She does consume approximately 612 ounce packages of wine daily denies history of withdrawal. She is compliant with her methadone clinic administration and did receive her methadone dose prior to arrival. She has not used any IV illicit substances since approximately 2 months ago. She denies any chest pain or shortness of breath. She has had some pain across her back last evening but states this is resolved today. She does have tenderness overlying the abscess site which has been draining. She injured her head approximately a week and a half ago. She states she was sliding down a hill and a metal pole caused a laceration to her skin. Denies any known foreign body. Denies any chance of . Denies any stiff neck or headache. States she generally feels unwell. Related Data Home Medications ?Medication ?Instructions ?Recorded ?Confirmed methadone 10 mg/mL oral concentrate 160 mg PO DAILY 06/02/21 02/23/25 furosemide 20 mg tablet 20 mg PO DAILY Edema 12/03/22 02/23/25 naloxone 4 mg/actuation nasal spray 4 mg intranasal Q2M PRN #2 ea 12/25/22 02/23/25 acetaminophen 500 mg tablet 1,000 mg (2 x 500 mg) PO Q6H PRN 08/28/23 02/23/25 #40 tabs ibuprofen 800 mg tablet 800 mg PO Q8H PRN #15 tabs 08/28/23 02/23/25 duloxetine 60 mg capsule,delayed 60 mg PO DAILY #30 caps 09/08/24 02/23/25 release gabapentin 800 mg tablet 800 mg PO QID #28 tabs 09/08/24 02/23/25 methylphenidate HCl 40 mg biphasic 40 mg PO QAM #7 caps 09/08/24 02/23/25 50-50 capsule,extended release (Ritalin LA) aripiprazole 5 mg tablet 5 mg PO DAILY PRN 10/25/24 02/23/25 cyclobenzaprine 10 mg tablet 10 mg PO TID #14 tabs 11/03/24 02/22/25 lamotrigine 50 mg tablet,extended 150 mg PO DAILY 02/23/25 02/23/25 release 24 hr methylphenidate HCl 5 mg tablet 10 mg PO QPM 02/23/25 02/23/25 Previous Rx's ?Medication ?Instructions ?Recorded naloxone 4 mg/actuation nasal spray 4 mg intranasal Q2M PRN #2 ea 12/25/22 acetaminophen 500 mg tablet 1,000 mg (2 x 500 mg) PO Q6H PRN 08/28/23 #40 tabs ibuprofen 800 mg tablet 800 mg PO Q8H PRN #15 tabs 08/28/23 duloxetine 60 mg capsule,delayed 60 mg PO DAILY #30 caps 09/08/24 release gabapentin 800 mg tablet 800 mg PO QID #28 tabs 09/08/24 methylphenidate HCl 40 mg biphasic 40 mg PO QAM #7 caps 09/08/24 50-50 capsule,extended release (Ritalin LA) cyclobenzaprine 10 mg tablet 10 mg PO TID #14 tabs 11/03/24 Allergies Allergy/AdvReac Type Severity Reaction Status Date / Time bupropion HCl (From AdvReac Intermediate Contraindic Verified 02/23/25 13:14 Wellbutrin SR) ated General Stated Complaint: Cellulitis CELESTE: 3 Exam Narrative Exam Narrative: Patient is alert and oriented, she is slightly diaphoretic, cardiac rate rhythm regular distal pulses are intact abscess noted to left hip without crepitus, drainage noted, ambulatory with steady gait no abdominal tenderness lungs clear to auscultation no meningismus, small healing abscess noted to left forearm Course Vital Signs Vital signs: Vital Signs Temperature 36.6 C 02/23/25 13:09 Pulse 78 02/23/25 13:09 Respiratory Rate 16 02/23/25 13:09 Blood Pressure 108/67 02/23/25 13:09 Pulse Oximetry 94 02/23/25 13:09 Temperature 36.6 C 02/23/25 13:15 Temperature Source Temporal Artery Scan 02/23/25 13:15 Pulse 78 02/23/25 13:15 Respiratory Rate 16 02/23/25 13:15 Blood Pressure 108/67 02/23/25 13:15 Blood Pressure Position Sitting 02/23/25 13:15 Pulse Oximetry 94 02/23/25 13:15 Oxygen Delivery Method Room Air 02/23/25 13:15 Oxygen Flow Rate 0 02/23/25 13:15 Pain Level 5 02/23/25 13:15 Lab/Test Results Lab/Test Results: 02/23/25 14:38 Blood Blood Culture - Pending 02/23/25 14:29 Blood Blood Culture - Pending Laboratory Tests Range/Units 02/23/25 14:29 VBG Lactate (<or=2.0) mmol/L 3.4 H* Serum HCG, Qual Negative Medical Decision Making Results: CBC does not show acute abnormality, lactate of 3.4, chemistry pending chest x-ray and left hip x-ray do not show evidence of acute abnormality, positive blood cultures for gram-positive cocci Assessment and plan: Patient has positive blood cultures with an abscess on her leg although I do not have high suspicion that this is the cause, she has had a temperature of 103 today and has taken Tylenol twice last took Tylenol an hour and a half ago. My plan is to admit patient. Bango and [place] initiated, case discussed with admitting hospitalist, Dr. Gonzalez. Of note, patient does consume approximately 1-1/2 bottles of wine daily. Tox screen and alcohol pending. Please also review the documentation from earlier today. Patient in no acute distress, no hypoxemia, slightly diaphoretic, blood pressure stable. No clinical findings consistent with meningitis or additional findings overtly consistent with endocarditis. pt to be admitted to hospitalist service at this time. discussed with Dr Gonzalez. Quality:SDOH Health Related Social Needs: Health related social needs house/econ circumstance lonely/isolated Health related social needs details patient utilizes the [facility] All Active Problems (Updated 02/24/25 @ 14:09 by CHARLIE De La Cruz) Abscess of left thigh (Acute) Transaminitis (Acute) Severe sepsis (Acute) Substance abuse in remission (Acute) Gram-positive cocci bacteremia (Acute) Blood culture positive for microorganism (Acute) Cellulitis of left hip (Acute) Alcohol abuse (Acute) Contusion of left lower leg, initial encounter (Acute) Mild tricuspid regurgitation (Chronic) Smoker (Acute) History of prior with IUGR (Acute 01/11/15) History of kidney injury (Acute 01/17/16) Acute January, History of drug abuse (Acute 01/17/16) In treatment at [place], no longer on methadone as of 01/17/16. Family court is close to resolved - will end . She is expecting 1st daughter to come home. Insomnia (Acute) Anxiety (Chronic) Anemia (Chronic) Opioid dependence (Acute) Mitral regurgitation (Chronic) Medical History Cardiomyopathy (01/22/16) Hepatitis C IVDU (intravenous drug user) Methadone maintenance therapy patient Exhausted vascular access Left posterior fascicular block (LPFB) RBBB Closed head injury Cardiac arrest with successful resuscitation Pulmonary nodules Anemia Alcohol abuse Hx of cocaine abuse Personality disorder Herpes, vulvar PTSD (post-traumatic stress disorder) ADHD Subacute endocarditis (01/22/16) MSSA endocarditis January, HSV infection Hx of who one week after . ? HSV or H1N1 infection. Pt has been on prophylaxis with pregnancies. Depression difficulty bonding with 2nd child. child removed from her custody. was on Wellbutrin but had sz and not on meds at this time. has appt with counselor 03/2015 Surgical History section (11/24/12) PCD @ 35w. [id number] [place]. 03/26/15 RCD. Pt arrived in labor and declined SUN. [facility]. [facility]. Amputation 12/23/16;[facility]; RIGHT BELOW THE KNEE Family History Mother No problems noted. Father No problems noted. Brother No problems noted. Grandfather No problems noted. Grandfather No problems noted. Grandmother No problems noted. Grandmother No problems noted. Son No problems noted. Son No problems noted. Daughter No problems noted. Daughter No problems noted. Social History Smoking/Tobacco Use Status: Current every day Tobacco Type: cigarettes and e-cigarettes Smoking risk assessment performed?: Yes Alcohol Intake: current Alcohol Intake frequency: a few times a month Alcohol type: beer Drug use: Current Sobriety Substance use type: former substance user, crack/cocaine, heroin, amphetamines, opiates, IV drugs, methamphetamine and unknown Housing: house Do you feel safe at home: Yes Do you feel safe in your relationship?: Yes Additional Social history: pt states she is on methadone, states lives with parents History History 4 Para 4 Hx # Term Pregnancies Multiple births Hx # Pregnancies Ectopic pregnancies AB induced Hx Number of Living Children 3 AB spontaneous Past Pregnancies Del. Date GA/Weeks # Preg Succ Route Wgt Sex Labor Lgth Anesthesia Location Prov Complic 12/28/20 25 Delivery Date: 12/28/20 Last Updated by: Roxanna Rocha LPN Patient transferred OB care to [facility]
[2025-02-23 15:29] LABS: WBC 5.29 10^3/uL (4.4-10.8)
[2025-02-23 15:30] LABS: HCT 38.4 % (36.0-46.0); HGB 12.2 g/dL (11.2-15.7); MCH 30.5 pg (27.0-33.0); MCHC 31.8 % (32.0-36.0); MCV 96 fL (80-95); RBC 4.00 10^6/uL (3.93-5.22); RDW 13.3 % (11.7-14.6); RDW-SD 47.9 fL; Troponin I < 3 ng/L (<35)
[2025-02-23 15:33] LABS: Abs Immature Grans 0.01 10^3/uL (0.0-0.06); Immature Grans % 0.2 %; MPV 9.0 fL (8.0-11.0); Platelet Count 205 10^3/uL (130-400)
[2025-02-23] MEDS: Normal Saline 1,000 ML 1000 ML IV (15:38)
[2025-02-23] MEDS: PIPERACILLIN/TAZO 3.375 GM in Normal Saline 50 ML IVPB ×2 (15:39→21:54)
[2025-02-23] MEDS: Methylphenidate 10 MG TAB PO (15:40)
[2025-02-23 16:06] LABS: C-Reactive Protein 3.82 mg/dL (<=0.50)
[2025-02-23 16:14] LABS: ALT 210 U/L (10-49); AST 207 U/L (<34); Albumin 4.4 g/dL (3.2-5.0); Alkaline Phosphatase 171 U/L (46-116); Anion Gap 11.9 mmol/L (3-11); BUN 6 mg/dL (9-23); Bilirubin, Total 0.3 mg/dL (0.2-1.2); CO2 25.1 mmol/L (20.0-31.0); Calcium 8.8 mg/dL (8.3-10.6); Chloride 105 mmol/L (98-107); Glucose 98 mg/dL (74-106); Potassium 4.3 mmol/L (3.5-5.1); Sodium 142 mmol/L (136-145); Total Protein 8.3 g/dL (5.7-8.2)
[2025-02-23 16:16] LABS: ESR 1 mm/hr (0-20)
--- NOTE | 2025-02-23 16:17 | W.PM.HP.N ---
Date of service: 02/23/25 Time of Service: 16:17 Assessment and Plan Assessment and plan (1) Severe sepsis: Status: Acute Assessment and plan: As per HPI Tachycardia HR 92 and tachypnea RR 22 with source Left hip cellulitis and GPC baceremia Severity with lactate at 3.4 LR one liter bolus then repeat lactate at 1800 NS one liter given in the ED prior to lactate at 3.4 As below (2) Gram-positive cocci bacteremia: Status: Acute Assessment and plan: As per HPI Ongoing vancomycin Repeat blood Cx (3) Cellulitis of left hip: Status: Acute Assessment and plan: As per HPI Ongoing zosyn (4) Alcohol abuse: Status: Acute Assessment and plan: As per HPI Ethyl level pending (5) Depression: Assessment and plan: On home medicine regimen (6) Amputation: Assessment and plan: Uses prothesis at home - continue to use in acute setting (7) Substance abuse in remission: Status: Acute Assessment and plan: On methadone - continue outpatient dose UDS positive for opiates and amphetamines Urine fentanyl and xylazine pending (8) ADHD: Assessment and plan: On home medicine regimen (9) Opioid dependence: Status: Acute Assessment and plan: As per point 6 (10) Anxiety: Status: Chronic Assessment and plan: On home medicine regimen Discussed with Dr. Gonzalez Discharge Planning Discharge Planning: No determined yet History of Present Illness History of Present Illness Chief Complaint: Gram-positive bacteremia Narrative: This 39 years old female patient with past medical history of extensive substance abuse on methadone, endocarditis, cardiac arrest x 5, right BKA status post osteomyelitis, ADHD, PTSD, depression , presented today to the ED for evaluation of gram-positive bacteremia on blood culture drawn on 02/22/2025 for presentation on the said date for infected wound to the left hip?draining abscess for which she was discharged on Bactrim DS and mupirocin ointment. Patient was called to return to the emergency room after positive result on cultures today 02/23/2025. The patient reported general body aches, cough, weakness and a temperature of 103 prior to arrival for which she took acetaminophen, also reporting EtOH intake of 612 oz daily without withdrawal symptoms in the past. Patient denied illicit IV drug use in the past 2 months. No report of chest pain, shortness of breath, no tenderness over left hip abscess site which is continuously draining. Blood work was negative for leukocytosis, positive lactic at 3.4 and ongoing mild transaminitis, CRP 3.82. Full CODE STATUS confirmed Review of Systems All systems reviewed & are unremarkable except as noted in HPI and below PFSH All Active Problems (Updated 02/23/25 @ 17:02 by Bianca Fox APRN) Severe sepsis (Acute) Substance abuse in remission (Acute) Gram-positive cocci bacteremia (Acute) Blood culture positive for microorganism (Acute) Cellulitis of left hip (Acute) Alcohol abuse (Acute) Contusion of left lower leg, initial encounter (Acute) Mild tricuspid regurgitation (Chronic) Smoker (Acute) History of prior with IUGR (Acute 01/11/15) History of kidney injury (Acute 01/17/16) Acute January, History of drug abuse (Acute 01/17/16) In IP treatment at [place], no longer on methadone as of 01/17/16. Family court is close to resolved - will end . She is expecting 1st daughter to come home. Insomnia (Acute) Anxiety (Chronic) Anemia (Chronic) Opioid dependence (Acute) Mitral regurgitation (Chronic) Medical History Cardiomyopathy (01/22/16) Hepatitis C IVDU (intravenous drug user) Methadone maintenance therapy patient Exhausted vascular access Left posterior fascicular block (LPFB) RBBB Closed head injury Cardiac arrest with successful resuscitation Pulmonary nodules Anemia Alcohol abuse Hx of cocaine abuse Personality disorder Herpes, vulvar PTSD (post-traumatic stress disorder) ADHD Subacute endocarditis (01/22/16) MSSA endocarditis January, HSV infection Hx of infant who one week after . ? HSV or H1N1 infection. Pt has been on prophylaxis with pregnancies. Depression difficulty bonding with 2nd child. child removed from her custody. was on Wellbutrin but had sz and not on meds at this time. has appt with counselor 03/2015 Surgical History section (11/24/12) PCD @ 35w. IUGR. NR[facility]. [id number]. [facility] [place]. Pt arrived in labor and declined SUN. F. Jessica. Amputation 12/23/16;[facility]; RIGHT BELOW THE KNEE Family History Mother No problems noted. Father No problems noted. Brother No problems noted. Grandfather No problems noted. Grandfather No problems noted. Grandmother No problems noted. Grandmother No problems noted. Son No problems noted. Son No problems noted. Daughter No problems noted. Daughter No problems noted. Social History Smoking/Tobacco Use Status: Current every day Tobacco Type: cigarettes and e-cigarettes Smoking risk assessment performed?: Yes Alcohol Intake: current Alcohol Intake frequency: a few times a month Alcohol type: beer Drug use: Current Sobriety Substance use type: former substance user, crack/cocaine, heroin, amphetamines, opiates, IV drugs, methamphetamine and unknown Housing: house Do you feel safe at home: Yes Do you feel safe in your relationship?: Yes Additional Social history: pt states she is on methadone, states lives with parents History History 4 Para 4 Hx # Term Pregnancies Multiple births Hx # Pregnancies Ectopic pregnancies AB induced Hx Number of Living Children 3 AB spontaneous Past Pregnancies Del. Date GA/Weeks # Preg Succ Route Wgt Sex Labor Lgth Anesthesia Location Prov Complic 12/28/20 Delivery Date: 12/28/20 Last Updated by: Roxanna Rocha LPN Patient transferred OB care to [facility] Meds Allergies and Home Medications Allergies Allergy/AdvReac Type Severity Reaction Status Date / Time bupropion HCl (From AdvReac Intermediate Contraindic Verified 02/23/25 13:14 Wellbutrin SR) ated Home Medications ?Medication ?Instructions ?Recorded ?Confirmed ?Type methadone 10 mg/mL oral concentrate 160 mg PO DAILY 06/02/21 02/23/25 History furosemide 20 mg tablet 20 mg PO DAILY Edema 12/03/22 02/23/25 History naloxone 4 mg/actuation nasal spray 4 mg intranasal Q2M PRN #2 ea 12/25/22 02/23/25 Rx acetaminophen 500 mg tablet 1,000 mg (2 x 500 mg) PO Q6H PRN 08/28/23 02/23/25 Rx #40 tabs ibuprofen 800 mg tablet 800 mg PO Q8H PRN #15 tabs 08/28/23 02/23/25 Rx duloxetine 60 mg capsule,delayed 60 mg PO DAILY #30 caps 09/08/24 02/23/25 Rx release gabapentin 800 mg tablet 800 mg PO QID #28 tabs 09/08/24 02/23/25 Rx methylphenidate HCl 40 mg biphasic 40 mg PO QAM #7 caps 09/08/24 02/23/25 Rx 50-50 capsule,extended release (Ritalin LA) aripiprazole 5 mg tablet 5 mg PO DAILY PRN 10/25/24 02/23/25 History cyclobenzaprine 10 mg tablet 10 mg PO TID #14 tabs 11/03/24 02/22/25 Rx lamotrigine 50 mg tablet,extended 150 mg PO DAILY 02/23/25 02/23/25 History release 24 hr methylphenidate HCl 5 mg tablet 10 mg PO QPM 02/23/25 02/23/25 History Exam Narrative Exam Narrative: Alert oriented x 3, no acute distress, unlabored breathing, clear lungs, S1-S2, no murmur, abdomen is nondistended soft nontender, no CVA tenderness,L hip abscess site with serous purulent drainage and erythema, LLE trace edema non-pitting, R BKA site intact Results Labs 02/23/25 14:29 02/23/25 14:29 Labs: Laboratory Results - last 24 hr 02/23/25 14:29 WBC 5.29 RBC 4.00 Hgb 12.2 Hct 38.4 MCV 96 H MCH 30.5 MCHC 31.8 L RDW 13.3 Plt Count 205 MPV 9.0 Immature Gran % 0.2 Neutrophils % 54.5 Lymphocytes % 32.9 Monocytes % 9.5 Eosinophils % 2.5 Basophils % 0.4 Absolute Neutrophils 2.89 Absolute Lymphocytes 1.74 Absolute Monocytes 0.50 Absolute Eosinophils 0.13 Absolute Basophils 0.02 ESR 1 VBG Lactate 3.4 H* Sodium 142 Potassium 4.3 Chloride 105 Carbon Dioxide 25.1 Anion Gap 11.9 H BUN 6 L Creatinine 0.76 Est GFR (CKD-EPI 2020) 84.04 Glucose 98 Calcium 8.8 Total Bilirubin 0.3 AST 207 H ALT 210 H Alkaline Phosphatase 171 H Troponin I < 3 C-Reactive Protein 3.82 H Total Protein 8.3 H Albumin 4.4 Serum HCG, Qual Negative Last Vital Signs Temp 36.6 C 02/23/25 13:15 Pulse 78 02/23/25 13:15 Resp 16 02/23/25 13:15 BP 108/67 02/23/25 13:15 Pulse Ox 94 02/23/25 13:15 VTE Prohylaxis Risk Level: Moderate/High Risk Contraindications: None Prophylaxis: Pharmacologic Time Spent Time spent with Patient: >75 minutes Time was spent: preparing to see the patient(eg.review tests), obtaining and/or reviewing separately otained hiistory, ordering medications,tests, procedures, referring, communicating with other health wound care nurse, indepentently interpreting results, counseling the patient, care coordination and other
[2025-02-23 16:26] LABS: Cannabinoids THC Negative (Negative)
[2025-02-23] MEDS: VANCOMYCIN/WATER (PEG) 1.5 GM/300 ML BAG IVPB (16:30)
[2025-02-23 16:34] VITALS: BP 133/82; PULSE 92; RESP 22; TEMP 36.9; O2SAT 96
[2025-02-23 16:34] LABS: Troponin I < 3 ng/L (<35)
[2025-02-23 16:39] LABS: COVID-19 PCR Negative (Negative); RSV PCR Negative (Negative)
[2025-02-23 17:35] LABS: Fentanyl Scr w/Rflx to Conf, U Negative (Negative)
--- NOTE | 2025-02-23 17:37 | W.PC.ACHO ---
Registration Status: REG ER Primary Language: Preferred Language: Arabic ED Information & Data Chief Complaint Cellulitis 02/23/25 15:26 Triage Note pt returns for +BC 02/23/25 13:09 seen earlier today but didn' t want to wait Medical / Surgical History (Last Reviewed 09/07/24 @ 06:16 by Mohsen Macedo MD) Cardiomyopathy (01/22/16) Hepatitis C IVDU (intravenous drug user) Methadone maintenance therapy patient Exhausted vascular access Left posterior fascicular block (LPFB) RBBB Closed head injury Cardiac arrest with successful resuscitation Pulmonary nodules Anemia Alcohol abuse Hx of cocaine abuse Personality disorder Herpes, vulvar PTSD (post-traumatic stress disorder) ADHD Subacute endocarditis (01/22/16) HSV infection Depression (Last Reviewed 09/07/24 @ 06:16 by Mohsen Macedo MD) section (11/24/12) Amputation Most Recent Vital Signs Temperature 36.9 C 02/23/25 16:34 Temperature Source Temporal Artery Scan 02/23/25 13:15 Pulse 92 H 02/23/25 16:34 Respiratory Rate 22 02/23/25 16:34 Blood Pressure 133/82 02/23/25 16:34 Blood Pressure Mean 99 02/23/25 16:34 Blood Pressure Position Sitting 02/23/25 13:15 Pulse Oximetry 96 02/23/25 16:34 Oxygen Delivery Method Room Air 02/23/25 16:34 Oxygen Flow Rate 0 02/23/25 16:34 Pain Level 5 02/23/25 13:15 Allergies bupropion HCl (From Wellbutrin SR) Adverse Reaction (Intermediate, Verified 02/23/25 13:14) Contraindicated PT. REPORTS CAN'T TAKE, SEIZURE Active Medications Generic Name Dose Route Start Last Admin Trade Name Freq PRN Reason Stop Dose Admin Vancomycin/PEG/NADA/Lysine/Water 1.5 gm in 300 mls @ 200 mls/hr 02/23/25 16:15 02/23/25 16:30 Vancocin Injection IVPB 02/23/25 17:44 200 mls/hr NOW ONE Administration IV IV Catheter Type [Left Forearm Peripheral IV ] IV Catheter Gauge [Left 20 Forearm] Diagnostics 02/23/25 02/23/25 02/23/25 Range/Units 18:00 15:52 15:10 WBC (4.4-10.8) 10^3/uL RBC (3.93-5.22) 10^6/uL Hgb (11.2-15.7) g/dL Hct (36.0-46.0) % MCV (80-95) fL MCH (27.0-33.0) pg MCHC (32.0-36.0) % RDW (11.7-14.6) % Plt Count (130-400) 10^3/uL MPV (8.0-11.0) fL Immature Gran % % Neutrophils % % Lymphocytes % % Monocytes % % Eosinophils % % Basophils % % Absolute Neutrophils (1.2-6.7) 10^3/uL Absolute Lymphocytes (1.2-3.4) 10^3/uL Absolute Monocytes (0.1-0.8) 10^3/uL Absolute Eosinophils (0.0-0.7) 10^3/uL Absolute Basophils (0.0-0.2) 10^3/uL ESR (0-20) mm/hr VBG Lactate Pending (<or=2.0) mmol/L Sodium (136-145) mmol/L Potassium (3.5-5.1) mmol/L Chloride (98-107) mmol/L Carbon Dioxide (20.0-31.0) mmol/L Anion Gap (3-11) mmol/L BUN (9-23) mg/dL Creatinine (0.55-1.02) mg/dL Est GFR (CKD-EPI 2020) (mL/min/1.73m2) Glucose (74-106) mg/dL Calcium (8.3-10.6) mg/dL Total Bilirubin (0.2-1.2) mg/dL AST (<34) U/L ALT (10-49) U/L Alkaline Phosphatase (46-116) U/L Troponin I < 3 (<35) ng/L C-Reactive Protein (<=0.50) mg/dL Total Protein (5.7-8.2) g/dL Albumin (3.2-5.0) g/dL Serum HCG, Qual Urine Opiates Screen Negative (Negative) Urine Methadone Screen Positive A (Negative) Urine Fentanyl Screen Pending Ur Barbiturates Screen Negative (Negative) Ur Tricyclics Screen Negative (Negative) Ur Amphetamines Screen Positive A (Negative) U Benzodiazepines Scrn Negative (Negative) Urine Cocaine Screen Negative (Negative) U Cannabinoids Screen Negative (Negative) Ethyl Alcohol 207.2 H (<3) mg/dL Urine Xylazine Pending COVID-19 Source SARS-CoV-2 (PCR) (Negative) Influenza Type A (PCR) (Negative) Influenza Type B (PCR) (Negative) RSV (PCR) (Negative) 02/23/25 02/23/25 Range/Units 15:00 14:29 WBC 5.29 (4.4-10.8) 10^3/uL RBC 4.00 (3.93-5.22) 10^6/uL Hgb 12.2 (11.2-15.7) g/dL Hct 38.4 (36.0-46.0) % MCV 96 H (80-95) fL MCH 30.5 (27.0-33.0) pg MCHC 31.8 L (32.0-36.0) % RDW 13.3 (11.7-14.6) % Plt Count 205 (130-400) 10^3/uL MPV 9.0 (8.0-11.0) fL Immature Gran % 0.2 % Neutrophils % 54.5 % Lymphocytes % 32.9 % Monocytes % 9.5 % Eosinophils % 2.5 % Basophils % 0.4 % Absolute Neutrophils 2.89 (1.2-6.7) 10^3/uL Absolute Lymphocytes 1.74 (1.2-3.4) 10^3/uL Absolute Monocytes 0.50 (0.1-0.8) 10^3/uL Absolute Eosinophils 0.13 (0.0-0.7) 10^3/uL Absolute Basophils 0.02 (0.0-0.2) 10^3/uL ESR 1 (0-20) mm/hr VBG Lactate 3.4 H* (<or=2.0) mmol/L Sodium 142 (136-145) mmol/L Potassium 4.3 (3.5-5.1) mmol/L Chloride 105 (98-107) mmol/L Carbon Dioxide 25.1 (20.0-31.0) mmol/L Anion Gap 11.9 H (3-11) mmol/L BUN 6 L (9-23) mg/dL Creatinine 0.76 (0.55-1.02) mg/dL Est GFR (CKD-EPI 2020) 84.04 (mL/min/1.73m2) Glucose 98 (74-106) mg/dL Calcium 8.8 (8.3-10.6) mg/dL Total Bilirubin 0.3 (0.2-1.2) mg/dL AST 207 H (<34) U/L ALT 210 H (10-49) U/L Alkaline Phosphatase 171 H (46-116) U/L Troponin I < 3 (<35) ng/L C-Reactive Protein 3.82 H (<=0.50) mg/dL Total Protein 8.3 H (5.7-8.2) g/dL Albumin 4.4 (3.2-5.0) g/dL Serum HCG, Qual Negative Urine Opiates Screen (Negative) Urine Methadone Screen (Negative) Urine Fentanyl Screen Ur Barbiturates Screen (Negative) Ur Tricyclics Screen (Negative) Ur Amphetamines Screen (Negative) U Benzodiazepines Scrn (Negative) Urine Cocaine Screen (Negative) U Cannabinoids Screen (Negative) Ethyl Alcohol (<3) mg/dL Urine Xylazine COVID-19 Source Nasopharynx SARS-CoV-2 (PCR) Negative (Negative) Influenza Type A (PCR) Negative (Negative) Influenza Type B (PCR) Negative (Negative) RSV (PCR) Negative (Negative) 02/23/25 14:38 Blood Culture - Pending Blood 02/23/25 14:29 Blood Culture - Pending Blood [id number] Documentation POC Urine Test Start: 02/23/25 15:58 Freq: .Urine Test Status: Active Protocol: Activity Type Activity Date Activity User E-sign Co-sign Detail Recorded Client Recorded Date Recorded By Document 02/23/25 16:02 EC [id number] 02/23/25 16:04 EC Intake and Output - 24 Hour Total 02/23/25 12:56 thru 02/23/25 13:09 Weight 74.843 kg Falls Risk Assessment Contributing Factors No Factors 02/23/25 13:15 Fall Total Score 0 02/23/25 13:15 Level of Risk Standard/Low Risk 02/23/25 13:15 Problems (Last Reviewed 09/07/24 @ 06:16 by Mohsen Macedo MD) Severe sepsis (Acute) Substance abuse in remission (Acute) Gram-positive cocci bacteremia (Acute) Cellulitis of left hip (Acute) Alcohol abuse (Acute) Anxiety (Chronic) Opioid dependence (Acute) Attestation Statement: By documenting the first initial, last name, and credentials of the reporting nurse below, both parties acknowledge that all relevant information regarding the patient handoff has been communicated, and that all questions have been addressed to ensure continuity and safety of care. Additional Patient Information/Comments: Report Received From: paged at [phone], report called at [phone]. Report received from Tim full SBAR report given, no questions.
[2025-02-23 17:50] VITALS: BP 109/66; PULSE 82; RESP 16; TEMP 36.7; O2SAT 98
[2025-02-23 17:54] VITALS: BP 109/66; PULSE 82; RESP 16; TEMP 36.7; O2SAT 98
[2025-02-23] MEDS: Gabapentin 800 MG TAB PO (20:54)
[2025-02-23] MEDS: Cyclobenzaprine 10 MG TAB PO (20:54)
[2025-02-23] MEDS: Lactated Ringers 1,000 ML 1000 ML IV (22:44)
[2025-02-23 22:57] VITALS: BP 104/62; PULSE 76; RESP 16; TEMP 36.8; O2SAT 96
[2025-02-24] VITALS (7 sets, daily range): BP systolic 99–126; BP diastolic 64–78; PULSE 62–81; RESP 16; TEMP 35.9–36.8; O2SAT 95–99
[2025-02-24] MEDS: PIPERACILLIN/TAZO 3.375 GM in Normal Saline 50 ML IVPB ×4 (04:12→21:36)
[2025-02-24 07:27] LABS: Abs Immature Grans 0.01 10^3/uL (0.0-0.06); HCT 34.3 % (36.0-46.0); HGB 10.9 g/dL (11.2-15.7); Immature Grans % 0.3 %; MCH 30.3 pg (27.0-33.0); MCHC 31.8 % (32.0-36.0); MCV 95 fL (80-95); MPV 9.1 fL (8.0-11.0); Platelet Count 170 10^3/uL (130-400); RBC 3.60 10^6/uL (3.93-5.22); RDW 13.4 % (11.7-14.6); RDW-SD 47.7 fL; WBC 3.92 10^3/uL (4.4-10.8)
[2025-02-24] MEDS: Cyclobenzaprine 10 MG TAB PO ×3 (07:38→21:33)
[2025-02-24] MEDS: lamoTRIgine 100 MG TAB 150 MG PO (07:38)
[2025-02-24] MEDS: Gabapentin 800 MG TAB PO ×3 (07:38→21:33)
[2025-02-24] MEDS: Enoxaparin 40 MG/0.4 ML SYR SC (07:39)
[2025-02-24] MEDS: DULoxetine 30 MG CAP 60 MG PO (07:39)
[2025-02-24] MEDS: ARIPiprazole 5 MG TAB PO (07:43)
[2025-02-24 07:55] LABS: ALT 168 U/L (10-49); AST 162 U/L (<34); Albumin 3.6 g/dL (3.2-5.0); Alkaline Phosphatase 140 U/L (46-116); Anion Gap 7.6 mmol/L (3-11); BUN 10 mg/dL (9-23); Bilirubin, Total 0.2 mg/dL (0.2-1.2); CO2 26.4 mmol/L (20.0-31.0); Calcium 8.4 mg/dL (8.3-10.6); Chloride 105 mmol/L (98-107); Glucose 83 mg/dL (74-106); Potassium 4.5 mmol/L (3.5-5.1); Sodium 139 mmol/L (136-145); Total Protein 6.6 g/dL (5.7-8.2)
[2025-02-24] MEDS: Polyethylene Glycol 3350 17 GM PACKET PO (08:36)
[2025-02-24] MEDS: Methadone Liquid 10 MG/ML 160 MG PO (08:36)
[2025-02-24] MEDS: METHYLPHENIDATE PO (08:36)
--- NOTE | 2025-02-24 09:21 | PGE_ITS ---
Date of Service Date of service: 02/24/25 Time of Service: 09:21 Assessment and Plan Assessment and plan (1) Severe sepsis: Status: Acute Assessment and plan: Resolving - no fever - or SIRS symptoms today On admission : Tachycardia HR 92 and tachypnea RR 22 with source Left hip cellulitis and GPC baceremia Severity with lactate at 3.4- repeat 1.5 2 liters of IV crystalloid completed As below (2) Gram-positive cocci bacteremia: Status: Acute Assessment and plan: Ongoing vancomycin Repeat blood Cx #2 positive Blood Cx # 3 ordered for 14:00 02/24 Hx of endocarditis but denies having had a valve replaced - will review Hx to confirm (3) Cellulitis of left hip: Status: Acute Assessment and plan: As above Ongoing zosyn Surgical consult :As per discussion with Dr. 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 had left prior to 16:00 and was unable to come back CT w IV constrast ordered (4) Alcohol abuse: Status: Acute Assessment and plan: Ethyl level 207.2 on 02/23 Ongoing CIWA- call provider if positive (5) Depression: Assessment and plan: Home medicine regimen has not being filled and ordered as PRN -will hold for now (6) Amputation: Assessment and plan: Continue to use prosthesis in acute setting (7) Substance abuse in remission: Status: Acute Assessment and plan: On home methadone dose UDS positive for opiates and amphetamines Urine fentanyl and xylazine still pending- suspecting injection to Left ant hip site (8) ADHD: Assessment and plan: home medicine regimen (9) Opioid dependence: Status: Acute Assessment and plan: As per point 6 (10) Anxiety: Status: Chronic Assessment and plan: On home medicine regimen Discussed with Dr. Gonzalez (11) Transaminitis: Status: Acute Assessment and plan: improving hepatitis profile Hep B core + - also + in 09/[address] Jasso Subjective Subjective Patient reports: no new complaints, tolerating liquids well, tolerating a regular diet, voiding w/o difficulty, flatus, no bowel movement and other (fatigued, stating that she had stopped lamictal and restarted last week, not taking her meds all the time ); denies diarrhea, nausea, vomiting, shortness of breath or fever Exam Narrative Exam Narrative: Alert oriented x 3, no acute distress, unlabored breathing, clear lungs, S1-S2, no murmur, abdomen is nondistended soft nontender, no CVA tenderness,L hip abscess site with minimal erythema , no drainage , LLE trace edema non-pitting, R BKA site intact Objective Last Vital Signs Temp 35.9 C L 02/24/25 08:09 Pulse 81 02/24/25 08:09 Resp 16 02/24/25 08:09 BP 103/78 02/24/25 08:09 Pulse Ox 98 02/24/25 08:09 Laboratory Results - last 24 hr 02/23/25 02/23/25 02/23/25 14:29 15:00 15:10 WBC 5.29 RBC 4.00 Hgb 12.2 Hct 38.4 MCV 96 H MCH 30.5 MCHC 31.8 L RDW 13.3 Plt Count 205 MPV 9.0 Immature Gran % 0.2 Neutrophils % 54.5 Lymphocytes % 32.9 Monocytes % 9.5 Eosinophils % 2.5 Basophils % 0.4 Nucleated RBC % Absolute Neutrophils 2.89 Absolute Lymphocytes 1.74 Absolute Monocytes 0.50 Absolute Eosinophils 0.13 Absolute Basophils 0.02 ESR 1 VBG Lactate 3.4 H* Sodium 142 Potassium 4.3 Chloride 105 Carbon Dioxide 25.1 Anion Gap 11.9 H BUN 6 L Creatinine 0.76 Est GFR (CKD-EPI 2020) 84.04 Glucose 98 Calcium 8.8 Total Bilirubin 0.3 AST 207 H ALT 210 H Alkaline Phosphatase 171 H Troponin I < 3 C-Reactive Protein 3.82 H Total Protein 8.3 H Albumin 4.4 Serum HCG, Qual Negative Urine Opiates Screen Negative Urine Methadone Screen Positive A Urine Fentanyl Screen Negative Ur Barbiturates Screen Negative Ur Tricyclics Screen Negative Ur Amphetamines Screen Positive A U Benzodiazepines Scrn Negative Urine Cocaine Screen Negative U Cannabinoids Screen Negative Ethyl Alcohol COVID-19 Source Nasopharynx SARS-CoV-2 (PCR) Negative Influenza Type A (PCR) Negative Influenza Type B (PCR) Negative RSV (PCR) Negative 02/23/25 02/23/25 02/24/25 15:52 18:21 06:35 WBC 3.92 L RBC 3.60 L Hgb 10.9 L Hct 34.3 L MCV 95 MCH 30.3 MCHC 31.8 L RDW 13.4 Plt Count 170 MPV 9.1 Immature Gran % 0.3 Neutrophils % 54.3 Lymphocytes % 29.1 Monocytes % 11.0 Eosinophils % 4.8 Basophils % 0.5 Nucleated RBC % 0.0 Absolute Neutrophils 2.13 Absolute Lymphocytes 1.14 L Absolute Monocytes 0.43 Absolute Eosinophils 0.19 Absolute Basophils 0.02 ESR VBG Lactate 1.5 Sodium 139 Potassium 4.5 Chloride 105 Carbon Dioxide 26.4 Anion Gap 7.6 BUN 10 Creatinine 0.76 Est GFR (CKD-EPI 2020) 84.04 Glucose 83 Calcium 8.4 Total Bilirubin 0.2 AST 162 H ALT 168 H Alkaline Phosphatase 140 H Troponin I < 3 C-Reactive Protein Total Protein 6.6 Albumin 3.6 Serum HCG, Qual Urine Opiates Screen Urine Methadone Screen Urine Fentanyl Screen Ur Barbiturates Screen Ur Tricyclics Screen Ur Amphetamines Screen U Benzodiazepines Scrn Urine Cocaine Screen U Cannabinoids Screen Ethyl Alcohol 207.2 H COVID-19 Source SARS-CoV-2 (PCR) Influenza Type A (PCR) Influenza Type B (PCR) RSV (PCR) PAWSS Have you Been Recently Intoxicated or Drunk Within the Last 30 days?: No Have you Ever Experienced Previous Episodes of Alcohol Withdrawal?: No Have you ever Experienced Withdrawal Seizures?: No Have you ever Experienced Delirium Tremens(DT)s?: No Have you ever undergone Alcohol Rehabilitation Treatment (i.e, inpt ot outpatient treatment programs)?: Yes Have you ever Experienced Blackouts?: Yes Have you ever Combined Alcohol with other Downers within the last 90 days?: No Have you ever Combined Alcohol with any other Substance of Abuse during the last 90 days?: No Positive Blood Alcohol level on Presentation? [PCS.BAL]: Yes Evidence of Increased Autonomic Activity (i.e. HR>120, tremor, sweating, agitation, nausea)?: Yes Result: 4 VTE Prohylaxis Risk Level: Moderate/High Risk Contraindications: None Prophylaxis: Pharmacologic Time Spent with Patient Time Spent with Patient: >50 minutes Time was spent: preparing to see the patient(eg.review tests), obtaining and/or reviewing separately otained hiistory, ordering medications,tests, procedures, referring, communicating with other health medical care manager, indepentently interpreting results, counseling the patient, care coordination and other
[2025-02-24] MEDS: Normal Saline Flush 10 ML SYR IVP ×5 (10:16→21:33)
[2025-02-24] MEDS: VANCOMYCIN/WATER (PEG) 1.25 GM/250 ML BAG IVPB ×2 (11:28→22:06)
--- NOTE | 2025-02-24 12:02 | INITIAL_ITS ---
Date of service: 02/24/25 Time of Service: 12:02 Care Management Initial Assmt Initial Assessment Reason for Hospitalization: sepsis, left hip cellulitis and gram positive cocci bacteremia Functional Status/Living Situation Patient Presentation: Denisse had presented to the ED on 02/22 due to a wound in her left hip. She was diagnosed with an abscess on her left hip secondary to a trauma. She was sent home on Bactrim, but was instructed to come back in on 02/23 when her blood cultures were noted to be positive for gram positive cocci. Denisse was admitted for sepsis/cellulitis. She is on double antibiotics and close monitoring. Denisse was sitting up in the bed when CM met with her today. Her dad and her daughter were visiting. Denisse was very pleasant with CM, we have known each other for some time. Denisse looked well. She stated that she was very tired, but starting to feel a little better, and not having much pain. She is aware that she will likely need senior care antibiotics. 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 Care Team Visit Care Team Role Provider Type Bianca Fox APRN MD [facility] STAFF PHYSICIAN Glenn Tinajero Primary Care Provider NON-[facility] STAFF PHYSICIAN CHARLIE De La Cruz Emergency Provider [employer] COLLECTIONS DRIVER Maico Gonzalez MD Admit Provider [facility] STAFF PHYSICIAN Attending Provider Discharge Potential Discharge Needs: PCP F/U Appt, Surgical F/U Appt and Other (watermaster antibiotics) Anticipated Barriers to Discharge: Medical Status (Denisse is bacteremic and will likely need long-term antibiotics) Patient/Family Education Needs: Review discharge instructions, discuss Ask Me Three Transportation: Private vehicle Plan: Denisse will discharge home once medically stable. Depending on the course of her antibiotics, she will likely need swing bed or outpatient antibiotic therapy. Denisse will need to f/u with her PCP, and maybe the surgeon. She will transport home via private vehicle. CM will continue to follow and update the plan as needed. Social Determinants of Health Screening Social Determinants of health last assessed in clinic: 02/24/25 Will the Patient Participate in the Screening?: Yes Do you worry about having a steady place to live?: no Problems where you live: no known problems In the past 12 months, have you had to go without electric, gas, oil or water in your home?: no 1. Within the past 12 months, we worried whether our food would run out before we got money to buy more.: Don't know/refused 2. Within the past 12 months, the food we bought just didn't last and we didn't have money to get more.: Don't know/refused Has lack of transportation kept you from medical appointments or from doing things needed for daily living?: no Has anyone in your life made you feel unsafe or unsupported?: no How hard is it for you to pay for the very basics like food, housing, medical care, and heating? Would you say it is:: Not hard at all Do you want help finding or keeping work or a job?: I do not need or want help If for any reason you need help with day-to-day activities such as bathing, preparing meals, shopping, managing finances, etc., do you get the help you need?: I get all the help I need How often do you feel lonely or isolated from those around you?: Never Do you speak a language other than Sinhala at home?: No Does the patient want assistance with any of the above?: No PFSH All Active Problems (Updated 02/24/25 @ 14:09 by CHARLIE De La Cruz) Abscess of left thigh (Acute) Transaminitis (Acute) Severe sepsis (Acute) Substance abuse in remission (Acute) Gram-positive cocci bacteremia (Acute) Blood culture positive for microorganism (Acute) Cellulitis of left hip (Acute) Alcohol abuse (Acute) Contusion of left lower leg, initial encounter (Acute) Mild tricuspid regurgitation (Chronic) Smoker (Acute) History of prior with IUGR (Acute 01/11/15) History of kidney injury (Acute 01/17/16) Acute January, History of drug abuse (Acute 01/17/16) In IP treatment at [place], no longer on methadone as of 01/17/16. Family court is close to resolved - will end . She is expecting 1st daughter to come home. Insomnia (Acute) Anxiety (Chronic) Anemia (Chronic) Opioid dependence (Acute) Mitral regurgitation (Chronic) Medical History Cardiomyopathy (01/22/16) Hepatitis C IVDU (intravenous drug user) Methadone maintenance therapy patient Exhausted vascular access Left posterior fascicular block (LPFB) RBBB Closed head injury Cardiac arrest with successful resuscitation Pulmonary nodules Anemia Alcohol abuse Hx of cocaine abuse Personality disorder Herpes, vulvar PTSD (post-traumatic stress disorder) ADHD Subacute endocarditis (01/22/16) MSSA endocarditis January, HSV infection Hx of infant who one week after . ? HSV or H1N1 infection. Pt has been on prophylaxis with pregnancies. Depression difficulty bonding with 2nd child. child removed from her custody. was on Wellbutrin but had sz and not on meds at this time. has appt with counselor 03/2015 Surgical History section (11/24/12) PCD @ 35w. IUGR. NRFH. [id number]. [facility] [place]. 03/26/15 RCD. Pt arrived in labor and declined SUN. F. Jessica. Amputation 12/23/16;[facility]; RIGHT BELOW THE KNEE Family History Mother No problems noted. Father No problems noted. Brother No problems noted. Grandfather No problems noted. Grandfather No problems noted. Grandmother No problems noted. Grandmother No problems noted. Son No problems noted. Son No problems noted. Daughter No problems noted. Daughter No problems noted. Social History Smoking/Tobacco Use Status: Current every day Tobacco Type: cigarettes and e- cigarettes Smoking risk assessment performed?: Yes Alcohol Intake: current Alcohol Intake frequency: a few times a month Alcohol type: beer Drug use: Current Sobriety Substance use type: former substance user, crack/cocaine, heroin, amphetamines, opiates, IV drugs, methamphetamine and unknown Housing: house Do you feel safe at home: Yes Do you feel safe in your relationship?: Yes Additional Social history: pt states she is on methadone, states lives with parents History History 4 Para 4 Hx # Term Pregnancies Multiple births Hx # Pregnancies Ectopic pregnancies AB induced Hx Number of Living Children 3 AB spontaneous Past Pregnancies Del. Date GA/Weeks # Preg Succ Route Wgt Sex Labor Lgth Anesth esia Location Prov Complic 12/28/20 25 Delivery Date: 12/28/20 Last Updated by: Roxanna Rocha LPN Patient transferred OB care to [facility]
[2025-02-24] MEDS: Methylphenidate 10 MG TAB PO (13:39)
--- NOTE | 2025-02-24 15:27 | SCONE_ITS ---
Date of service: 02/24/25 Time of Service: 15:27 Assessment and Plan Assessment and plan (1) Abscess of left thigh: Status: Acute Assessment and plan: The wound is well-drained at this time, and at least by the markings on the skin, the surrounding cellulitis seems to be improving. It should be washed with warm soapy water, and the thin layer of Medihoney will also provide some protection to the surrounding tissues. It can be dressed with clean gauze with each nursing shift. I also recommend ultrasound of the left lower extremity to rule out DVT, as there is a fair amount of swelling in the lower portion of the leg. Overall, she seems to be responding to antibiotic therapy. But I would keep an eye out on the culture data to make sure that the Enterococcus is sensitive to vancomycin. History of Present Illness History of Present Illness Chief Complaint: Groin wound Narrative: Denisse is 39 years old. She is admitted to the hospital with bacteremia. She first came to the hospital on February. She complained of a wound on the left groin at that time. She described it as a boil, that had become increasingly painful and started to drain fluid. She was started on some antibiotics and subsequently discharged. As part of that workup, she underwent blood cultures. Blood cultures grew gram-positive cocci, and she was asked to return to the emergency department for admission and treatment of bacteremia. Blood cultures have since grown Enterococcus. She reports subjective fevers, and pain in the left groin. She does think that the pain has gotten better. She tells me that this all started as a injury in the groin that she says occurred when she was playing with her kids. She says she struck her groin on some type of pole when she was sledding. She did not seek any medical treatment at that time. The wound became more painful, thus the reason that she went to the emergency department. She tells me she has a past medical history of endocarditis, although she is not able to provide any real information about that. She has a right lower extremity BKA that she says was a result of a traumatic injury to the leg, and perhaps infection that developed after that. Review of Systems Constitutional Constitutional: Reports body ache(s), Reports fatigue, Reports fever(s) and Reports lethargy Eyes Eyes: Reports system reviewed and no additional complaints, except as documented ENT Ears, Nose, Mouth, and Throat: Reports system reviewed and no additional complaints, except as documented Cardiovascular Cardiovascular: Denies chest pain, Reports lightheadedness and Denies dyspnea Respiratory Respiratory: Denies chest congestion, Reports cough and Denies dyspnea Gastrointestinal Gastrointestinal: Reports system reviewed and no additional complaints, except as documented Musculoskeletal Musculoskeletal: Reports myalgias and Reports other (Upper and lower extremity swelling) Endocrine Endocrine: Reports fatigue PFSH All Active Problems (Updated 02/24/25 @ 14:09 by CHARLIE De La Cruz) Abscess of left thigh (Acute) Transaminitis (Acute) Severe sepsis (Acute) Substance abuse in remission (Acute) Gram-positive cocci bacteremia (Acute) Blood culture positive for microorganism (Acute) Cellulitis of left hip (Acute) Alcohol abuse (Acute) Contusion of left lower leg, initial encounter (Acute) Mild tricuspid regurgitation (Chronic) Smoker (Acute) History of prior with IUGR (Acute 01/11/15) History of kidney injury (Acute 01/17/16) Acute January, History of drug abuse (Acute 01/17/16) In IP treatment at [place], no longer on methadone as of 01/17/16. Family court is close to resolved - will end . She is expecting 1st daughter to come home. Insomnia (Acute) Anxiety (Chronic) Anemia (Chronic) Opioid dependence (Acute) Mitral regurgitation (Chronic) Medical History Cardiomyopathy (01/22/16) Hepatitis C IVDU (intravenous drug user) Methadone maintenance therapy patient Exhausted vascular access Left posterior fascicular block (LPFB) RBBB Closed head injury Cardiac arrest with successful resuscitation Pulmonary nodules Anemia Alcohol abuse Hx of cocaine abuse Personality disorder Herpes, vulvar PTSD (post-traumatic stress disorder) ADHD Subacute endocarditis (01/22/16) MSSA endocarditis January, HSV infection Hx of infant who one week after . ? HSV or H1N1 infection. Pt has been on prophylaxis with pregnancies. Depression difficulty bonding with 2nd child. child removed from her custody. was on Wellbutrin but had sz and not on meds at this time. has appt with counselor 03/2015 Surgical History section (11/24/12) PCD @ 35w. IUGR. NRFH. [id number]. [facility] [place]. 03/26/15 RCD. Pt arrived in labor and declined SUN. [facility]. Amputation 12/23/16;[facility]; RIGHT BELOW THE KNEE Family History Mother No problems noted. Father No problems noted. Brother No problems noted. Grandfather No problems noted. Grandfather No problems noted. Grandmother No problems noted. Grandmother No problems noted. Son No problems noted. Son No problems noted. Daughter No problems noted. Daughter No problems noted. Social History Smoking/Tobacco Use Status: Current every day Tobacco Type: cigarettes and e- cigarettes Smoking risk assessment performed?: Yes Alcohol Intake: current Alcohol Intake frequency: a few times a month Alcohol type: beer Drug use: Current Sobriety Substance use type: former substance user, crack/cocaine, heroin, amphetamines, opiates, IV drugs, methamphetamine and unknown Housing: house Do you feel safe at home: Yes Do you feel safe in your relationship?: Yes Additional Social history: pt states she is on methadone, states lives with parents History History 2 4 Para 4 Hx # Term Pregnancies Multiple births Hx # Pregnancies Ectopic pregnancies AB induced Hx Number of Living Children 3 AB spontaneous Past Pregnancies Del. Date GA/Weeks # Preg Succ Route Wgt Sex Labor Lgth Anesth esia Location [facility] 12/28/20 25 Delivery Date: 12/28/20 Last Updated by: Roxanna Rocha LPN Patient transferred OB care to [facility] Exam Const General: no acute distress and disheveled Orientation: alert and awake [facility] Head: normal to inspection Eyes General: appearance normal, both eyes and all related structures Neck Neck: normal visual inspection and full ROM Skin Other: There is a wound on the left groin. Approximately 2-1/2 cm long by about 1 cm top to bottom. This covered in fibrinous exudate. There is mild surrounding erythema that is within the confines of the previous skin marking. There are some induration. There is no drainage from the wound. It is tender. She has pulses in her foot. Left lower extremity is swollen about to the level of the knee, although she is wearing a compressive garment Extrem Right upper extremity: edema Left upper extremity: edema Left lower extremity: edema Results Last Vital Signs Temp 98.2 F 02/24/25 12:17 Pulse 71 02/24/25 12:17 Resp 16 02/24/25 12:17 BP 104/65 02/24/25 13:07 Pulse Ox 95 02/24/25 12:17 Labs 02/24/25 06:35 02/24/25 06:35 Labs: Laboratory Results - last 24 hr 02/23/25 02/23/25 02/23/25 14:29 15:00 15:10 WBC 5.29 RBC 4.00 Hgb 12.2 Hct 38.4 MCV 96 H MCH 30.5 MCHC 31.8 L RDW 13.3 Plt Count 205 MPV 9.0 Immature Gran % 0.2 Neutrophils % 54.5 Lymphocytes % 32.9 Monocytes % 9.5 Eosinophils % 2.5 Basophils % 0.4 Nucleated RBC % Absolute Neutrophils 2.89 Absolute Lymphocytes 1.74 Absolute Monocytes 0.50 Absolute Eosinophils 0.13 Absolute Basophils 0.02 ESR 1 VBG Lactate Sodium 142 Potassium 4.3 Chloride 105 Carbon Dioxide 25.1 Anion Gap 11.9 H BUN 6 L Creatinine 0.76 Est GFR (CKD-EPI 2020) 84.04 Glucose 98 Calcium 8.8 Total Bilirubin 0.3 AST 207 H ALT 210 H Alkaline Phosphatase 171 H Troponin I < 3 C-Reactive Protein 3.82 H Total Protein 8.3 H Albumin 4.4 Urine Opiates Screen Negative Urine Methadone Screen Positive A Urine Fentanyl Screen Negative Ur Barbiturates Screen Negative Ur Tricyclics Screen Negative Ur Amphetamines Screen Positive A U Benzodiazepines Scrn Negative Urine Cocaine Screen Negative U Cannabinoids Screen Negative Ethyl Alcohol COVID-19 Source Nasopharynx SARS-CoV-2 (PCR) Negative Influenza Type A (PCR) Negative Influenza Type B (PCR) Negative RSV (PCR) Negative 02/23/25 02/23/25 02/24/25 15:52 18:21 06:35 WBC 3.92 L RBC 3.60 L Hgb 10.9 L Hct 34.3 L MCV 95 MCH 30.3 MCHC 31.8 L RDW 13.4 Plt Count 170 MPV 9.1 Immature Gran % 0.3 Neutrophils % 54.3 Lymphocytes % 29.1 Monocytes % 11.0 Eosinophils % 4.8 Basophils % 0.5 Nucleated RBC % 0.0 Absolute Neutrophils 2.13 Absolute Lymphocytes 1.14 L Absolute Monocytes 0.43 Absolute Eosinophils 0.19 Absolute Basophils 0.02 ESR VBG Lactate 1.5 Sodium 139 Potassium 4.5 Chloride 105 Carbon Dioxide 26.4 Anion Gap 7.6 BUN 10 Creatinine 0.76 Est GFR (CKD-EPI 2020) 84.04 Glucose 83 Calcium 8.4 Total Bilirubin 0.2 AST 162 H ALT 168 H Alkaline Phosphatase 140 H Troponin I < 3 C-Reactive Protein Total Protein 6.6 Albumin 3.6 Urine Opiates Screen Urine Methadone Screen Urine Fentanyl Screen Ur Barbiturates Screen Ur Tricyclics Screen Ur Amphetamines Screen U Benzodiazepines Scrn Urine Cocaine Screen U Cannabinoids Screen Ethyl Alcohol 207.2 H COVID-19 Source SARS-CoV-2 (PCR) Influenza Type A (PCR) Influenza Type B (PCR) RSV (PCR)
--- NOTE | 2025-02-24 19:54 | W.ANESVAS ---
Midline Placement Date Performed: 02/24/25 Procedure Time: 19:15 Requesting Provider: Nasima Adler Requesting Provider (not listed above): RN request per supervising provider. Unable to obtain IV access. Procedure Location: Med/Surg Sedation Given (Indicate Dose Given): No Sedation given Patient Mental Status: Awake Sterility: Hand Hygiene, Surgical Cap, Surgical Mask, Sterile Gloves, Sterile Drape/Sheet and Chlorhexidine Laterality: Left Insertion Site: Basilic Midline Device: PowerGlide Pro 20G Catheter Length: 10 cm Midline Procedure Procedure: 1% Lidocaine to skin and subcutaneous tissue with 25g needle, Vessel accessed with needle, Vessel accessed with catheter over needle, Guidewire placed with ease, Catheter placed without resistance and Guidewire removed Dressing: Tegaderm Applied, Statlock Applied and Mastisol Used Blood Return: Present Flushes: Easily Ultrasound: Sterile probe cover and gel used Ultrasound Image Saved?: Yes Number of Attempts (See previous attempts in note section): 1 Procedure Tolerated: No Complications Procedure Outcome: Successful Procedure Comment:: Collapsible vessel, positive blood return/non-pulsatile, able to free flow fluid. Patient tolerated procedure well. Performed By: Nasima Adler
[2025-02-24 20:21] LABS: Vancomycin, Random 10.0 ug/mL
[2025-02-24] MEDS: lamoTRIgine 25 MG TAB 75 MG PO (21:33)
[2025-02-24] MEDS: Famotidine 20 MG TAB PO (22:06)
[2025-02-24] MEDS: Ondansetron O.D.T. 4 MG TABEF PO (22:06)
--- NOTE | 2025-02-25 | DI.CT_ITS ---
Exam(s) CT LOWER EXTREMITY LT W EXAM: CT LOWER EXTREMITY LT W CLINICAL HISTORY: LLE Swelling , DVT s/p abscess to L ant hip. TECHNIQUE: Imaging Protocol: Axial CT angiography was performed with multi- slice acquisition and multi-planar and/or 3D reconstructions. CONTRAST MATERIAL: Intravenous: Omnipaque 350 Contrast volume:structured data in ml mL Oral: yes / no COMPARISON: CT CT LOWER EXTREMITY LT WO from 12/02/2022 FINDINGS: Vascular Structures: The iliac veins in the veins of the lower extremities are not opacified due to the timing of the bolus. Pelvis: Iliac Arteries: No evidence of occlusion or significant stenosis. Lower extremity: Left: Femoral: No evidence of occlusion or significant stenosis. Deep femoral artery: No evidence of occlusion or significant stenosis. Popliteal: No evidence ofocclusion or significant stenosis. Knee Trifurcation: No evidence of occlusion or significant stenosis. Infrapopliteal arteries: No evidence of occlusion or significant stenosis. Soft Tissues: Lymph nodes: No significant adenopathy is present. Bladder: There is partial visualization of the urinary bladder. No gross abnormalities identified. Reproductive organs: The visualized reproductive organs are unremarkable. Bowel: No obstruction or bowel wall thickening. The appendix is unremarkable. Peritoneal cavity: No ascites, collection or mesenteric inflammatory response. No free air. Bones: Within normal limits for the patient's age. Soft tissues: There is a superficial wound overlying the anterior hip extending only into the subcutaneous tissues. (Series 11, images 57-72). No focal fluid collection is seen to suggest an abscess. There is mild subcutaneous edema seen in the lateral lower leg which may represent a cellulitis. No focal fluid collection is seen to suggest an abscess. IMPRESSION: 1. Due to the timing of the bolus, the lower extremity veins are not opacified. If there is continued clinical concern for lower extremity DVT, a lower extremity ultrasound is recommended for further evaluation. 2. No evidence of occlusion or significant stenosis of the left lower extremity arteries. 3. Superficial wound overlying the left anterior hip. There is no focal fluid collection to suggest an abscess. 4. The preliminary [facility] report was reviewed. RADIATION DOSE DELIVERED: 1,348.11mGy.cm Total DLP 1,348.11mGy.cm Total DLP 1,348.11mGy.cm Total DLP DATA REPOSITORY: All CT scans at this facility are submitted to the National Radiology Data Registry (NRDR) Dose Index Registry (DIR) with the [employer] ([employer]). RADIATION OPTIMIZATION: All CT scans at this facility use at least one of these dose optimization techniques: automated exposure control; mA and/or kV adjustment per patient size (includes targeted exams where dose is matched to clinical indication); or iterative reconstruction.
[2025-02-25] MEDS: Normal Saline Flush 10 ML SYR IVP ×7 (03:54→19:53)
[2025-02-25] MEDS: PIPERACILLIN/TAZO 3.375 GM in Normal Saline 50 ML IVPB ×4 (03:54→21:34)
[2025-02-25 06:55] LABS: Abs Immature Grans 0.01 10^3/uL (0.0-0.06); HCT 33.2 % (36.0-46.0); HGB 10.6 g/dL (11.2-15.7); Immature Grans % 0.2 %; MCH 30.1 pg (27.0-33.0); MCHC 31.9 % (32.0-36.0); MCV 94 fL (80-95); MPV 8.8 fL (8.0-11.0); Platelet Count 160 10^3/uL (130-400); RBC 3.52 10^6/uL (3.93-5.22); RDW 13.2 % (11.7-14.6); RDW-SD 45.8 fL; WBC 4.65 10^3/uL (4.4-10.8)
[2025-02-25 07:15] LABS: C-Reactive Protein 1.41 mg/dL (<=0.50)
[2025-02-25 07:17] LABS: ALT 162 U/L (10-49); AST 139 U/L (<34); Albumin 3.7 g/dL (3.2-5.0); Alkaline Phosphatase 141 U/L (46-116); Anion Gap 7.3 mmol/L (3-11); BUN 10 mg/dL (9-23); Bilirubin, Total 0.2 mg/dL (0.2-1.2); CO2 26.7 mmol/L (20.0-31.0); Calcium 8.4 mg/dL (8.3-10.6); Chloride 106 mmol/L (98-107); Glucose 120 mg/dL (74-106); Potassium 4.0 mmol/L (3.5-5.1); Sodium 140 mmol/L (136-145); Total Protein 6.8 g/dL (5.7-8.2)
[2025-02-25 07:34] VITALS: BP 97/53; PULSE 68; RESP 17; TEMP 35.8; O2SAT 99
[2025-02-25] MEDS: METHYLPHENIDATE PO (08:06)
[2025-02-25] MEDS: Enoxaparin 40 MG/0.4 ML SYR SC (08:06)
[2025-02-25] MEDS: Gabapentin 800 MG TAB PO ×4 (08:06→19:53)
[2025-02-25] MEDS: Cyclobenzaprine 10 MG TAB PO ×3 (08:06→19:53)
[2025-02-25] MEDS: DULoxetine 30 MG CAP 60 MG PO (08:06)
[2025-02-25] MEDS: METHADONE 1 EACH PO (08:54)
[2025-02-25] MEDS: lamoTRIgine 25 MG TAB 75 MG PO ×2 (08:54→19:52)
--- NOTE | 2025-02-25 09:58 | W.PM.PROGNOT ---
Date of Service Date of service: 02/25/25 Time of Service: 09:59 Assessment and Plan Assessment and plan (1) Severe sepsis: Status: Acute Assessment and plan: Resolving - no fever - SIRS symptoms free On admission : Tachycardia HR 92 and tachypnea RR 22 with source Left hip cellulitis and GPC /enterococcus F baceremia Severity with lactate at 3.4- repeat trended down to 1.5 2 liters of IV crystalloid completed CRP 3.82 on admission now 1.41 -trending As below (2) Gram-positive cocci bacteremia: Start date: 02/25/25 Start time: 14:20 Status: Acute Assessment and plan: Blood Cx - from 02/22 growing enterococcus faecalis- sensitive to vancomycin and ampicillin Ongoing vancomycin- most likely to deescalate after ID consult Repeat blood Cx #2 positive for enterococcus species Blood Cx # 3 pending at this time Hx of endocarditis but denies having had a valve replaced - will review Hx to confirm - Past aortic and pulmonic valves vegetations as per DEBORAH in 2018 No valve replacement as per TTE 04/2024 ID consult with [facility] [place] pending MID Line inserted 02/24 - (3) Left leg DVT: Start date: 02/25/25 Start time: 14:21 Status: Acute Assessment and plan: In the setting of Swelling of LLE, abscess to L ant hip US LLE unavailable LLE CT w contrast pending If positive for DVT consider starting DOAC (4) Cellulitis of left hip: Status: Acute Assessment and plan: As above Ongoing zosyn Surgical consult : As per discussion with Dr. Bello wound was most like not caused by the described mecahnism - with edema to LLE - concerns for DVT express US LLE order but the maintenance technician had left prior to 16:00 on 02/24 and was unable to come back , not available today CT w IV constrast ordered not completed - reordered (5) Alcohol abuse: Status: Acute Assessment and plan: Ethyl level 207.2 on 02/23 Continue CIWA- x 48 hours- call provider if positive (6) Depression: Assessment and plan: Home medicine regimen has not being filled opt and was ordered as PRN -will hold to be addressed with PCP (7) Amputation: Assessment and plan: Will use prosthesis in acute setting (8) Substance abuse in remission: Status: Acute Assessment and plan: C/w home methadone dose UDS positive for opiates and amphetamines Urine fentanyl negative and xylazine still pending- questioning injection to Left ant hip abscess site (9) ADHD: Assessment and plan: C/w home medicine regimen (10) Opioid dependence: Status: Acute Assessment and plan: As per point 6 (11) Anxiety: Status: Chronic Assessment and plan: C/w home medicine regimen (12) Transaminitis: Status: Acute Assessment and plan: improving Ongoing Hep C with increased HCV RNA to [phone] from [id number] in 09/2024- outpatient tx hepatitis profile Hep B core + - also + in 09/2024--Hep B core IgM Ab pending discussed with Dr. Jasso Subjective Subjective Patient reports: no new complaints, tolerating liquids well, tolerating a regular diet, voiding w/o difficulty, flatus, no bowel movement and other (fatigued, stating that she had stopped lamictal and restarted last week, not taking her meds all the time ); denies diarrhea, nausea, vomiting, shortness of breath or fever Exam Narrative Exam Narrative: Alert oriented x 3, no acute distress, unlabored breathing, clear lungs, S1-S2, no murmur, abdomen is nondistended soft nontender, no CVA tenderness.Dressing to L hip abscess site DCI: minimal erythema , drainage , LLE trace edema non-pitting, R BKA site intact Objective Last Vital Signs Temp 35.8 C L 02/25/25 07:34 Pulse 68 02/25/25 07:34 Resp 17 02/25/25 07:34 BP 97/53 L 02/25/25 07:34 Pulse Ox 99 02/25/25 07:34 Laboratory Results - last 24 hr 02/24/25 02/25/25 19:36 06:40 WBC 4.65 RBC 3.52 L Hgb 10.6 L Hct 33.2 L MCV 94 MCH 30.1 MCHC 31.9 L RDW 13.2 Plt Count 160 MPV 8.8 Immature Gran % 0.2 Neutrophils % 58.8 Lymphocytes % 24.3 Monocytes % 9.0 Eosinophils % 7.3 Basophils % 0.4 Nucleated RBC % 0.0 Absolute Neutrophils 2.73 Absolute Lymphocytes 1.13 L Absolute Monocytes 0.42 Absolute Eosinophils 0.34 Absolute Basophils 0.02 Sodium 140 Potassium 4.0 Chloride 106 Carbon Dioxide 26.7 Anion Gap 7.3 BUN 10 Creatinine 0.76 Est GFR (CKD-EPI 2020) 84.04 Glucose 120 H Calcium 8.4 Total Bilirubin 0.2 AST 139 H ALT 162 H Alkaline Phosphatase 141 H C-Reactive Protein 1.41 H Total Protein 6.8 Albumin 3.7 Random Vancomycin 10.0 PAWSS Have you Been Recently Intoxicated or Drunk Within the Last 30 days?: No Have you Ever Experienced Previous Episodes of Alcohol Withdrawal?: No Have you ever Experienced Withdrawal Seizures?: No Have you ever Experienced Delirium Tremens(DT)s?: No Have you ever undergone Alcohol Rehabilitation Treatment (i.e, inpt ot outpatient treatment programs)?: Yes Have you ever Experienced Blackouts?: Yes Have you ever Combined Alcohol with other Downers within the last 90 days?: No Have you ever Combined Alcohol with any other Substance of Abuse during the last 90 days?: No Positive Blood Alcohol level on Presentation? [PCS.BAL]: Yes Evidence of Increased Autonomic Activity (i.e. HR>120, tremor, sweating, agitation, nausea)?: Yes Result: 4 VTE Prohylaxis Risk Level: Moderate/High Risk Contraindications: None Prophylaxis: Pharmacologic Time Spent with Patient Time Spent with Patient: >50 minutes Time was spent: preparing to see the patient(eg.review tests), obtaining and/or reviewing separately otained hiistory, ordering medications,tests, procedures, referring, communicating with other health care transition coordinator, indepentently interpreting results, counseling the patient, care coordination and other
[2025-02-25] MEDS: VANCOMYCIN/WATER (PEG) 1.25 GM/250 ML BAG IVPB ×2 (10:39→22:05)
[2025-02-25 11:21] VITALS: BP 130/87; PULSE 86; RESP 19; TEMP 36.3; O2SAT 97
--- NOTE | 2025-02-25 11:50 | NUR.NOTE ---
Call from Lab, 02/22/25 wound hip, positive MRSA. Lab will call [facility] and notify the provider of this, pt is admitted. Nursing Note:
[2025-02-25] MEDS: Normal Saline - Diluent 50 ML VIAL IJ ×2 (12:37→12:39)
[2025-02-25] MEDS: Omnipaque 350 MG/ML 100 ML BTL IJ (12:37)
[2025-02-25] MEDS: Omnipaque 350 MG/ML 50 ML BTL IJ (12:38)
[2025-02-25] MEDS: Methylphenidate 10 MG TAB PO (13:08)
--- NOTE | 2025-02-25 14:22 | DI.VRAD_ITS ---
PROCEDURE INFORMATION: Exam: CT Left Lower Extremity With Contrast Exam date and time: 02/25/2025 12:28 PM Age: 39 years old Clinical indication: Other: Lle swelling , dvt S/P abscess to L ant hip TECHNIQUE: Imaging protocol: CT of the left lower extremity with intravenous contrast was performed. Contrast material: OMNIPAQUE 350; Contrast volume: 125 ml; Contrast route: INTRAVENOUS (IV); COMPARISON: MR LOWER JOINT LT WO 08/26/2023 11:27 AM FINDINGS: Bones/joints: Axial images are obtained from the left iliac crest to the foot. Additional coronal sagittal reconstructed images are obtained. There is no bony fracture of the left hemipelvis or femur. There is no significant degenerative change of the hip joint. The knee joint is intact. The patella is nondisplaced. There is no abnormal joint fluid. The ankle joint is intact. Soft tissues: There is a small superficial wound overlying the left proximal sartorius and tensor fascia laura. The wound only extends into the subcutaneous tissue. There is no extension to underlying musculature. The wound is approximately 3 cm in length x 4 cm in transverse dimension with a probable maximal depth of 5 mm. No other lesions in the thigh identified. There is mild prepatellar soft tissue swelling and subcutaneous density along the lateral aspect of the knee extending into the calf consistent with a probable cellulitis. This extends to the ankle. There is skin thickening over the dorsum of the foot which may represent a chronic dermatitis. There is no loculated fluid collections identified No soft tissue gas or muscular abnormality identified. No foreign bodies. IMPRESSION: 1. Small superficial wound over the anterior proximal thigh at the level of the hip joint. 2. Mild subcutaneous density principally along the lateral aspect of the knee and calf extending to the foot consistent with a cellulitis. Thickening of the skin over the foot which may represent a dermatitis 3. No necrotizing fasciitis muscular abnormality or foreign body identified. 4. No acute bony changes from the hip to the foot. Dictated and Authenticated by: Héctor Jensen MD. Orderin Ruddy Valenzuela MD
[2025-02-25] MEDS: Polyethylene Glycol 3350 17 GM PACKET PO (15:16)
[2025-02-25] MEDS: Famotidine 20 MG TAB PO (15:16)
[2025-02-25 15:24] VITALS: BP 123/89; PULSE 82; RESP 17; TEMP 35.8; O2SAT 96
[2025-02-25] MEDS: Ondansetron O.D.T. 4 MG TABEF PO (16:04)
[2025-02-25 19:26] VITALS: BP 114/67; PULSE 69; RESP 16; TEMP 36; O2SAT 99
[2025-02-26] MEDS: Normal Saline Flush 10 ML SYR IVP ×5 (04:00→22:58)
[2025-02-26] MEDS: PIPERACILLIN/TAZO 3.375 GM in Normal Saline 50 ML IVPB (04:00)
[2025-02-26 06:34] LABS: Abs Immature Grans 0.01 10^3/uL (0.0-0.06); HCT 33.1 % (36.0-46.0); HGB 10.9 g/dL (11.2-15.7); Immature Grans % 0.2 %; MCH 31.3 pg (27.0-33.0); MCHC 32.9 % (32.0-36.0); MCV 95 fL (80-95); MPV 9.3 fL (8.0-11.0); Platelet Count 190 10^3/uL (130-400); RBC 3.48 10^6/uL (3.93-5.22); RDW 13.2 % (11.7-14.6); RDW-SD 46.5 fL; WBC 4.50 10^3/uL (4.4-10.8)
[2025-02-26 06:51] LABS: ALT 162 U/L (10-49); AST 138 U/L (<34); Albumin 3.9 g/dL (3.2-5.0); Alkaline Phosphatase 148 U/L (46-116); Anion Gap 7.1 mmol/L (3-11); BUN 13 mg/dL (9-23); Bilirubin, Total 0.2 mg/dL (0.2-1.2); CO2 29.9 mmol/L (20.0-31.0); Calcium 8.7 mg/dL (8.3-10.6); Chloride 103 mmol/L (98-107); Glucose 131 mg/dL (74-106); Potassium 3.9 mmol/L (3.5-5.1); Sodium 140 mmol/L (136-145); Total Protein 7.1 g/dL (5.7-8.2)
[2025-02-26 06:57] LABS: Vancomycin, Random 15.7 ug/mL
[2025-02-26 07:53] VITALS: BP 109/72; PULSE 77; RESP 18; TEMP 36.1; O2SAT 99
[2025-02-26] MEDS: Polyethylene Glycol 3350 17 GM PACKET PO (08:21)
[2025-02-26] MEDS: METHADONE 1 EACH PO (08:21)
[2025-02-26] MEDS: Enoxaparin 40 MG/0.4 ML SYR SC (08:21)
[2025-02-26] MEDS: Famotidine 20 MG TAB PO (08:22)
[2025-02-26] MEDS: Ondansetron O.D.T. 4 MG TABEF PO ×2 (08:22→18:40)
[2025-02-26] MEDS: DULoxetine 30 MG CAP 60 MG PO (08:22)
[2025-02-26] MEDS: METHYLPHENIDATE PO (08:22)
[2025-02-26] MEDS: lamoTRIgine 25 MG TAB 75 MG PO ×2 (08:22→19:47)
[2025-02-26] MEDS: Cyclobenzaprine 10 MG TAB PO ×3 (08:22→19:47)
[2025-02-26] MEDS: Gabapentin 800 MG TAB PO ×4 (08:22→19:47)
--- NOTE | 2025-02-26 08:57 | NUR.NOTE ---
Faxed final wound culture report to [facility]. Ghislaine RN aware. Nursing Note:
[2025-02-26] MEDS: AMPICILLIN SODIUM 2 GM in Normal Saline 100 ML IVPB ×4 (10:20→22:04)
[2025-02-26] MEDS: VANCOMYCIN/WATER (PEG) 1.5 GM/300 ML BAG IVPB ×2 (11:09→22:57)
--- NOTE | 2025-02-26 12:05 | W.PM.PROGNOT ---
Date of Service Date of service: 02/26/25 Time of Service: 12:05 Assessment and Plan Assessment and plan (1) Enterococcal bacteremia: Status: Acute Assessment and plan: Intitially severe sepsis, has resolved. Blood Cx - from 02/22, 02/23 growing enterococcus faecalis- sensitive to vancomycin and ampicillin 02/24 cultures negative x 48+ hours Change abx to ampicillin Continue vancomycin for MRSA cellulitis in hip. Abnormal valve with of endocarditis and likely IVDU, get echo 02/26. Exam reassuring, but she may need DEBORAH before treatment ends. D/w ID consult DH before discharge Her considering AMA discharge is a challenge, back up plan would be oral amox high dose. MID Line inserted 02/24 - (2) Cellulitis of left hip: Status: Acute Assessment and plan: Healing. MRSA growing in wound. Continue vancomycin, also double covers enterobacter. Swelling in LLE mimimal, not tender. CT 02/25 reassuring. I doubt DVT, but she is at risk so if she still has any concerning LLE findings, get u/s 02/27. (3) Alcohol abuse: Status: Acute Assessment and plan: Ethyl level 207.2 on 02/23 Now off withdrawal protocol. Discuss additoinal options for treating AUD prior to discharge. (4) Opioid dependence: Status: Acute Assessment and plan: C/w home methadone dose UDS positive for opiates and amphetamines (not expected from methylfenidate). Urine fentanyl negative and xylazine still pending- questioning injection to Left ant hip abscess site a/w IVDU, which I think is very likely questioned crack use in room, but she has not appeared intoxicated and cocaine negative on admission (though recently positive 01/13. (5) Anxiety: Status: Chronic Assessment and plan: C/w home medicine duloxetine/methylfenidate for anxiety/depression/ADHD, though ongoing amphetamine and cocaine and alcohol use is complicating. (6) Transaminitis: Status: Acute Assessment and plan: improving chronic Hep C with increased HCV RNA to 7 [phone] from [id number] in 09/2024. Reinfection- was undetectable in 2019 but only once. Plan outpatient tx hepatitis profile Hep B core + - also + in 09/2024--Hep B core IgM Ab pending. Discharge Planning Discharge Planning: home after echo 02/27, plan for treatment duration for bacteremia per ID Subjective Subjective Patient reports: no new complaints and tolerating a regular diet; denies diarrhea, nausea, vomiting, shortness of breath or fever Interval history since last seen: Events: concern for crack use based on smell in room overnight, patient suggested she may leave AMA She feels okay this morning. wound in left groin feels better. No chest pain. She does want to get home [place] to get ready for [place] Exam Narrative Exam Narrative: Alert oriented x 3, no acute distress, unlabored breathing, clear lungs, heart with opal S1-S2, no murmur, abdomen is nondistended soft nontender, no CVA tenderness. Dressing to L hip abscess site, wound clean with minimal erythema, no drainage LLE trace edema non-pitting, R BKA site intact Objective Last Vital Signs Temp 36.1 C L 02/26/25 07:53 Pulse 77 02/26/25 07:53 Resp 18 02/26/25 07:53 BP 109/72 02/26/25 07:53 Pulse Ox 99 02/26/25 07:53 Laboratory Results - last 24 hr 02/26/25 05:30 WBC 4.50 RBC 3.48 L Hgb 10.9 L Hct 33.1 L MCV 95 MCH 31.3 MCHC 32.9 RDW 13.2 Plt Count 190 MPV 9.3 Immature Gran % 0.2 Neutrophils % 53.6 Lymphocytes % 27.1 Monocytes % 11.1 Eosinophils % 7.8 Basophils % 0.2 Nucleated RBC % 0.0 Absolute Neutrophils 2.41 Absolute Lymphocytes 1.22 Absolute Monocytes 0.50 Absolute Eosinophils 0.35 Absolute Basophils 0.01 Sodium 140 Potassium 3.9 Chloride 103 Carbon Dioxide 29.9 Anion Gap 7.1 BUN 13 Creatinine 0.76 Est GFR (CKD-EPI 2020) 84.04 Glucose 131 H Calcium 8.7 Total Bilirubin 0.2 AST 138 H ALT 162 H Alkaline Phosphatase 148 H Total Protein 7.1 Albumin 3.9 Random Vancomycin 15.7 PAWSS Have you Been Recently Intoxicated or Drunk Within the Last 30 days?: No Have you Ever Experienced Previous Episodes of Alcohol Withdrawal?: No Have you ever Experienced Withdrawal Seizures?: No Have you ever Experienced Delirium Tremens(DT)s?: No Have you ever undergone Alcohol Rehabilitation Treatment (i.e, inpt ot outpatient treatment programs)?: Yes Have you ever Experienced Blackouts?: Yes Have you ever Combined Alcohol with other Downers within the last 90 days?: No Have you ever Combined Alcohol with any other Substance of Abuse during the last 90 days?: No Positive Blood Alcohol level on Presentation? [PCS.BAL]: Yes Evidence of Increased Autonomic Activity (i.e. HR>120, tremor, sweating, agitation, nausea)?: Yes Result: 4 VTE Prohylaxis Risk Level: Moderate/High Risk Contraindications: None Prophylaxis: Pharmacologic Time Spent with Patient Time Spent with Patient: 35-49 minutes Time was spent: preparing to see the patient(eg.review tests), obtaining and/or reviewing separately otained hiistory, ordering medications,tests, procedures, referring, communicating with other health lawn care professional, indepentently interpreting results, counseling the patient and care coordination
[2025-02-26 12:44] VITALS: BP 114/76; PULSE 85; RESP 17; TEMP 35.9; O2SAT 95
[2025-02-26] MEDS: Methylphenidate 10 MG TAB PO (13:56)
[2025-02-26 15:16] VITALS: BP 149/94; PULSE 113; RESP 17; TEMP 36.8; O2SAT 99
[2025-02-26 19:55] VITALS: BP 124/72; PULSE 67; RESP 18; TEMP 36.7; O2SAT 98
[2025-02-26] MEDS: Mylanta Suspension 30 ML CUP PO (22:09)
[2025-02-26 23:58] VITALS: BP 132/78; PULSE 70; RESP 18; TEMP 36.7; O2SAT 95
[2025-02-27] MEDS: AMPICILLIN SODIUM 2 GM in Normal Saline 100 ML IVPB ×3 (01:56→11:46)
[2025-02-27] MEDS: Normal Saline Flush 10 ML SYR IVP ×5 (01:56→12:25)
[2025-02-27 04:37] VITALS: BP 111/73; PULSE 68; RESP 18; TEMP 36.7; O2SAT 94
[2025-02-27 06:37] LABS: C-Reactive Protein 1.43 mg/dL (<=0.50)
[2025-02-27 07:37] VITALS: BP 105/71; PULSE 77; RESP 17; TEMP 36.7; O2SAT 94
[2025-02-27] MEDS: METHYLPHENIDATE PO (07:55)
[2025-02-27] MEDS: Gabapentin 800 MG TAB PO ×3 (07:55→16:50)
--- NOTE | 2025-02-27 09:24 | PDOC.CMPRO ---
Date of service: 02/27/25 Time of Service: 09:24 Care Management Progress Note Discharge Potential Discharge Needs: PCP F/U Appt and Surgical F/U Appt Anticipated Barriers to Discharge: None Identified Patient/Family Education Needs: Review discharge instructions, discuss Ask Me Three Transportation: Private vehicle Social Determinants of Health Screening Social Determinants of health last assessed in clinic: 02/24/25 Will the Patient Participate in the Screening?: Yes Do you worry about having a steady place to live?: no Problems where you live: no known problems In the past 12 months, have you had to go without electric, gas, oil or water in your home?: no Has lack of transportation kept you from medical appointments or from doing things needed for daily living?: no Has anyone in your life made you feel unsafe or unsupported?: no How hard is it for you to pay for the very basics like food, housing, medical care, and heating? Would you say it is:: Not hard at all Do you want help finding or keeping work or a job?: I do not need or want help If for any reason you need help with day-to-day activities such as bathing, preparing meals, shopping, managing finances, etc., do you get the help you need?: I get all the help I need How often do you feel lonely or isolated from those around you?: Never Do you speak a language other than [place] at home?: No Does the patient want assistance with any of the above?: No
[2025-02-27] MEDS: Methadone Liquid 10 MG/ML 160 MG PO (09:26)
[2025-02-27] MEDS: VANCOMYCIN/WATER (PEG) 1.5 GM/300 ML BAG IVPB (09:29)
[2025-02-27] MEDS: Enoxaparin 40 MG/0.4 ML SYR SC (09:29)
[2025-02-27] MEDS: Cyclobenzaprine 10 MG TAB PO ×2 (09:30→13:43)
[2025-02-27] MEDS: Famotidine 20 MG TAB PO (09:30)
[2025-02-27] MEDS: lamoTRIgine 25 MG TAB 75 MG PO (09:30)
[2025-02-27] MEDS: Polyethylene Glycol 3350 17 GM PACKET PO (09:31)
[2025-02-27] MEDS: DULoxetine 30 MG CAP 60 MG PO (09:31)
--- NOTE | 2025-02-27 10:47 | PGE_ITS ---
Date of Service Date of service: 02/27/25 Time of Service: 10:47 Assessment and Plan Assessment and plan (1) Enterococcal bacteremia: Start date: 02/27/25 Start time: 13:04 Status: Acute Assessment and plan: Intitially severe sepsis, has resolved. Blood Cx - from 02/22, 02/23 grew enterococcus faecalis- sensitive to vancomycin and ampicillin Blood Cx from 02/24 negative to date Left hip wound Cx grew MRSA with ongoing vancomycin treatment Hx of endocarditis w/o artificial vlve in the past: concerns for abnormal valve with of endocarditis and likely IVDU, get echo 02/27 as a rule-in . Probable need for and opt DEBORAH before treatment ends. Echo report pending ID consult [facility] still pending initiated on 02/25 - called again this AM Mentioned AMA discharge but s/p discussion willing to wait for echo report and ID consult - If she insisted on AMA plan to give oral amox high dose. MID Line inserted 02/24 - remove on discharge (2) Cellulitis of left hip: Status: Acute Assessment and plan: As per CT no abscess and superficial now but + for MRSA and as above Resolved swelling in LLE , CT 02/25 w/o filling defect reported (3) Alcohol abuse: Status: Acute Assessment and plan: Ethyl level 207.2 on 02/23 Withdrawal protocol discontinued today - last drink on 02/23. Consider additoinal options for treating AUD prior to discharge. On pepcid for reflux and heart burn - discussed risk of alteration to esophageal mucosa with ongoing ETOH and reflux (4) Opioid dependence: Start date: 02/27/25 Start time: 13:16 Status: Acute Assessment and plan: On home methadone dose UDS positive for opiates and amphetamines (not expected from methylfenidate). Urine fentanyl negative and xylazine still pending- questioning injection to Left ant hip abscess site a/w IVDU, which I think is very likely questioned crack use in room, but she has not appeared intoxicated and cocaine negative on admission (though recently positive 01/13. (5) Anxiety: Status: Chronic Assessment and plan: C/w home medicine duloxetine/methylfenidate for anxiety/depression/ADHD, Encouraged to discussed medicine compliance with her PCP - as she was taking effexor only as needed as per report Ongoing amphetamine and alcohol use complicating treatment - no cocaine in urine this stay (6) Transaminitis: Status: Acute Assessment and plan: stable in the setting of ETOH and below chronic Hep C with increased HCV RNA to 7 730 000 from [address]306 in 09/2024. Reinfe ction- was undetectable in 2019 but only once. Plan outpatient tx hepatitis profile Hep B core + - also + in 09/2024--Hep B core IgM Ab still pending. Dsicussed w Dr. Jasso Subjective Subjective Patient reports: tolerating liquids well, tolerating a regular diet, voiding w/o difficulty, bowel movement and afebrile; denies nausea, vomiting or shortness of breath Exam Narrative Exam Narrative: 39 yo female looking flores than stated age. Alert oriented x 3, no acute distress, unlabored breathing, clear lungs, S1-S2, no murmur, , abdomen is nondistended soft nontender, no bladder distention. Dressing to left anterior hip wound site DCI: minimal erythema; resolved LLE edema , R BKA site intact Objective Last Vital Signs Temp 36.7 C 02/27/25 07:37 Pulse 77 02/27/25 07:37 Resp 17 02/27/25 07:37 BP 105/71 02/27/25 07:37 Pulse Ox 94 02/27/25 07:37 Laboratory Results - last 24 hr 02/27/25 05:40 C-Reactive Protein 1.43 H PAWSS Have you Been Recently Intoxicated or Drunk Within the Last 30 days?: No Have you Ever Experienced Previous Episodes of Alcohol Withdrawal?: No Have you ever Experienced Withdrawal Seizures?: No Have you ever Experienced Delirium Tremens(DT)s?: No Have you ever undergone Alcohol Rehabilitation Treatment (i.e, inpt ot outpatient treatment programs)?: Yes Have you ever Experienced Blackouts?: Yes Have you ever Combined Alcohol with other Downers within the last 90 days?: No Have you ever Combined Alcohol with any other Substance of Abuse during the last 90 days?: No Positive Blood Alcohol level on Presentation? [PCS.BAL]: Yes Evidence of Increased Autonomic Activity (i.e. HR>120, tremor, sweating, agitation, nausea)?: Yes Result: 4 VTE Prohylaxis Risk Level: Moderate/High Risk Contraindications: None Prophylaxis: Pharmacologic Time Spent with Patient Time Spent with Patient: >50 minutes Time was spent: preparing to see the patient(eg.review tests), obtaining and/or reviewing separately otained hiistory, ordering medications,tests, procedures, referring, communicating with other health care management associate, indepentently interpreting results, counseling the patient, care coordination and other
[2025-02-27 11:00] LABS: Abs Immature Grans 0.01 10^3/uL (0.0-0.06); HCT 31.5 % (36.0-46.0); HGB 10.0 g/dL (11.2-15.7); Immature Grans % 0.2 %; MCH 30.0 pg (27.0-33.0); MCHC 31.7 % (32.0-36.0); MCV 95 fL (80-95); MPV 9.4 fL (8.0-11.0); Platelet Count 169 10^3/uL (130-400); RBC 3.33 10^6/uL (3.93-5.22); RDW 13.2 % (11.7-14.6); RDW-SD 46.1 fL; WBC 4.26 10^3/uL (4.4-10.8)
[2025-02-27 11:04] VITALS: BP 136/89; PULSE 99; RESP 17; TEMP 36.7; O2SAT 96
[2025-02-27 11:14] LABS: Anion Gap 7.9 mmol/L (3-11); BUN 13 mg/dL (9-23); CO2 28.1 mmol/L (20.0-31.0); Calcium 8.6 mg/dL (8.3-10.6); Chloride 104 mmol/L (98-107); Glucose 94 mg/dL (74-106); Potassium 4.3 mmol/L (3.5-5.1); Sodium 140 mmol/L (136-145)
[2025-02-27] MEDS: Methylphenidate 10 MG TAB PO (13:43)
--- NOTE | 2025-02-27 14:31 | PHA.REVIEW2 ---
Pharmacy Admission Review Admission Clinical Review Admission Pharmacy Review: Enterococcal bacteremia (Acute) Left leg DVT (Acute) Abscess of left thigh (Acute) Transaminitis (Acute) Severe sepsis (Acute) Substance abuse in remission (Acute) Gram-positive cocci bacteremia (Acute) Cellulitis of left hip (Acute) Alcohol abuse (Acute) Opioid dependence (Acute) bupropion HCl (From Wellbutrin SR) Adverse Reaction (Intermediate, Verified 02/23/25 13:14) Contraindicated Resuscitation Status Full Code Height 5 ft 8 in Weight 77.111 kg Pharmacy Admission Review Renal Dosing Renal Dosing: BUN 13 mg/dL (9-23) 02/27/25 05:40 Creatinine 0.72 mg/dL (0.55-1.02) 02/27/25 05:40 Medications needing adjustments: Reviewed (CrCl 113.44 mL/min) List of meds needing interventions: Current medications are okay Anticoagulation Anticoagulation: Hgb 10.0 g/dL (11.2-15.7) L 02/27/25 05:40 Hct 31.5 % (36.0-46.0) L 02/27/25 05:40 Plt Count 169 10^3/uL (130-400) 02/27/25 05:40 Creatinine 0.72 mg/dL (0.55-1.02) 02/27/25 05:40 DVT Prophylaxis: Reviewed Medications: Enoxaparin (40mg daily) Opiate Usage Evaluate Pain Scale/Pains Meds: Reviewed (methadone 160mg daily) Scheduled Bowel Reg ordered if on Opiates?: Yes (daily Miralax) Relevant Labs Relevant Labs: ESR 1 mm/hr (0-20) 02/23/25 14:29 Sodium 140 mmol/L (136-145) 02/27/25 05:40 Potassium 4.3 mmol/L (3.5-5.1) 02/27/25 05:40 Chloride 104 mmol/L (98-107) 02/27/25 05:40 C-Reactive Protein 1.43 mg/dL (<=0.50) H 02/27/25 05:40 Electrolytes, C-Reactive P, ESR: Reviewed Cardiac Review Cardiac Review: Troponin I < 3 ng/L (<35) 02/23/25 15:52 BP, HR, EF%: Reviewed (BP WNL, HR 99) List meds needing interventions: Has order for furosemide 20mg daily as needed QTc Review QTc: Reviewed (429 from 02/23/25) IV to PO Switch IV Medications: Reviewed (ampicillin and vancomycin) Home Meds Home Med List reviewed: Reviewed Relevent Home Meds Not ordered & why?: aripiprazole (was ordered and then canceled by provider), Narcan (PRN) Current Meds Current Medication Order Review: Reviewed Pharmacy Antibiotic Review Relevant Labs: Relevant Labs 02/27/25 05:40 C-Reactive Protein 1.43 H WBC 4.26 10^3/uL (4.4-10.8) L 02/27/25 05:40 Temperature 36.7 C Temperature 36.7 C Temperature 36.7 C Microbiology 02/24/25 13:56 Blood Culture - Preliminary Blood NO GROWTH 48 HOURS 02/24/25 14:20 Blood Culture - Preliminary Blood NO GROWTH 48 HOURS Initial blood cultures 02/23/25 Organism 1 Enterococcus faecalis Ente faeca Result Ampicillin S Vancomycin S Pharmacy Antibiotic Activity: C/S review and Reviewed, no change Comments: Patient is on ampicillin (day 2) and vancomycin (day 4) for bacteremia/cellulitis. Vancomycin dose 1500mg q12h with predicted AUC of 51. Last level was 15.7 pm 02/26 - will reorder if any significant changes in renal function or prolonged therapy required.
[2025-02-27 15:20] VITALS: BP 135/74; PULSE 85; RESP 16; TEMP 36.8; O2SAT 97
--- NOTE | 2025-02-27 15:32 | DSE_ITS ---
Date of service: 02/27/25 Time of Service: 15:32 DS: Diagnosis Discharge Diagnosis (1) Enterococcal bacteremia: Status: Acute (2) Cellulitis of left hip: Status: Acute (3) Alcohol abuse: Status: Acute (4) Opioid dependence: Status: Acute (5) Anxiety: Status: Chronic (6) Transaminitis: Status: Acute Discharge Plan Disposition Patient Disposition: Home Condition: Improving Discharge Details Reason For Visit: GPC bacteremia Admit Date/Time: 02/23/25 16:29 Admit Provider: Maico Gonzalez Attending Provider: Maico Gonzalez Primary Care Provider: Glenn Tinajero Hospital Course Hospital Course: This 39 years old female patient with past medical history of extensive substance abuse on methadone, endocarditis, cardiac arrest x 5, right BKA status post osteomyelitis, ADHD, PTSD, depression , presented today to the ED for evaluation of gram-positive bacteremia on blood culture drawn on 02/22/2025 for presentation on the said date for infected wound to the left hip?draining abscess for which she was discharged on Bactrim DS and mupirocin ointment. Patient was called to return to the emergency room on 02/13/25 after GPC positive results on blood cultures. At the time work-up resulted with a diagnosis of severe sepsis in the setting of GPC bacteremia and L hip cellulitis /draining abscess and mild transaminitis. The patient was admitted to the medical surgical floor for further management with IV Zosyn and vancomycin. Blood cultures grew enterococcus faecalis and the wound grew MRSA. Antibiotics adjusted as per sensitivity. ID consult [facility] [place] on 02/25 and discussion completed today with Dr Whyte and recommendation for planned Dalbavancin 1500mg IV today and repeat dose in a week if endocarditis cannot be ruled out as per outpatient DEBORAH. TTE completed today but report was not available as patient threatens to leave against medical advise. Ethyl level > 207, but not sc oring on CIWA; famotidine imitated for ongoing heart silverman. Patient agreeable intitiation of therapy for alcohol abuse and recommendation made to follow-up [facility] PCP for alcohol abuse , med compliance, DEBORAH referral. Follow up with PCP within 7 days of discharge. If DEBORAH is not completed by next week on 03/06/25- your are to be scheduled for IV antibiotic infusion in the outpatient treatment center on 03/06/2025. Call [phone] on 02/28/2025 before [address] Jasso Recommendations for Follow Up Recommended tests to be ordered by follow up provider: Needs a DEBORAH for r/u endocarditis - if not completed plan for outpatient Dalbavancin 1500 mg IV for another dose in one week/7 days to cover endocarditis- ID [facility] recommendation - Set -up for outpatient infusion if DEBORAH not done prior to 03/06/25 Home Meds and New Rx's Prescriptions: New acetaminophen 500 mg Tablet 1,000 mg PO Q8H PRN PRNQty: 30 0RF famotidine 20 mg Tablet 20 mg PO DAILY Qty: 30 0RF acamprosate 333 mg Tablet,Delayed Release (Dr/Ec) 666 mg PO TID Qty: 90 0RF Continued methadone 10 mg/mL Concentrate 160 mg PO DAILY Patient Comments: verified dose 10/01/24 w/[facility] Rx Instructions: CONFIRMED DOSE WITH [facility] 05/02/24 :120mg naloxone 4 mg/actuation spray,non-aerosol 4 mg intranasal Q2M PRNQty: 2 12RF Rx Instructions: spray 1 dose into ONE nostril; alternate nostrils w each dose until help arrives methylphenidate HCl 5 mg tablet 10 mg PO QPM lamotrigine 50 mg tablet extended release 24hr 150 mg PO DAILY furosemide 20 mg tablet 20 mg PO DAILY Patient Comments: Pt taking daily Rx Instructions: 1 tablet by mouth once a day as needed TAKE ONE TABLET BY MOUTH EVERY DAY as needed for edema methylphenidate HCl [Ritalin LA] 40 mg capsule,ER biphasic 50-50 40 mg PO QAM Qty: 7 0RF duloxetine 60 mg capsule,delayed release(DR/EC) 60 mg PO DAILY Qty: 30 0RF gabapentin 800 mg tablet 800 mg PO QID Qty: 28 0RF cyclobenzaprine 10 mg tablet 10 mg PO TID Qty: 14 0RF Changed ibuprofen 800 mg tablet 600 mg PO Q8H PRNQty: 15 0RF Held aripiprazole 5 mg tablet 5 mg PO DAILY PRN Hold Instructions: Resume on 03/06/25. Discuss with your PCP - Rx seemed to have been ordered PRN and has no been refilled Patient Comments: TAKE ONE TABLET BY MOUTH EVERY DAY Discontinued acetaminophen 500 mg tablet 1,000 mg PO Q6H PRNQty: 40 0RF Discharge Instructions Stand Alone Forms: Portal Information Referrals: Glenn Tinajero [Primary Care Provider, Medicine] Referral Note: Follow-up with 7 days: Needs a DEBORAH to r/o endocarditis and evaluation on IV antibiotic need Activity:: Activity as Tolerated Equipment/Supplies:: No Equipment Needed Diet:: As Tolerated Discharge Orders Discharge Orders: Discharge Order (Routine); Ordered 02/27/25 Ordered By: Bianca Fox DS: Summary Time Spent with Patient providing and/or coordinating discharge services: Greater than 30 minutes Status at Discharge Functional status at discharge: independent ambulation Overall status at discharge: patient is progressing back to baseline Mental Status: mental status grossly normal Speech and Movement: speech and movement normal Mood: congruent mood Affect: normal affect Quality:SDOH Health Related Social Needs: Health related social needs house/econ circumstance [place]io/isolated Health related social needs details patient utilizes [facility] Exam Narrative Exam Narrative: 39 yo female looking flores than stated age. Alert oriented x 3, no acute distress, unlabored breathing, clear lungs, S1-S2, no murmur, , abdomen is nondistended soft nontender, no bladder distention. Dressing to left anterior hip wound site DCI: minimal erythema; resolved LLE edema , R BKA site intact Psych Mental Status: mental status grossly normal Speech and Movement: speech and movement normal Mood: congruent mood Affect: normal affect DS: Data Vitals/I&O Vitals and I&O: Vital Signs Temperature 36.8 C 02/27/25 15:20 Temperature Source Temporal Artery Scan 02/27/25 15:20 Pulse 85 02/27/25 15:20 Respiratory Rate 16 02/27/25 15:20 Blood Pressure 135/74 02/27/25 15:20 Blood Pressure Mean 94 02/27/25 15:20 Blood Pressure Position Sitting 02/23/25 13:15 Pulse Oximetry 97 02/27/25 15:20 Oxygen Delivery Method Room Air 02/27/25 15:20 Oxygen Flow Rate 0 02/27/25 15:20 Pain Level 0 02/27/25 15:20 Comment no pain 02/26/25 19:55 Intake & Output 02/26/25 02/27/25 02/27/25 23:59 11:59 23:59 Intake Total 1060 / 1210 500 / 600 100 / 600 Balance 1060 / 1210 500 / 600 100 / 600 Intake: IV 600 / 750 500 / 600 100 / 600 Oral 460 / 460 Other: Urine Color Yellow Urine Appearance Clear Urine Odor Normal Data Completed and Pending Pending Labs at Discharge: 02/23/25 02/23/25 02/23/25 14:29 15:00 15:10 WBC 5.29 RBC 4.00 Hgb 12.2 Hct 38.4 MCV 96 H MCH 30.5 MCHC 31.8 L RDW 13.3 Plt Count 205 MPV 9.0 Immature Gran % 0.2 Neutrophils % 54.5 Lymphocytes % 32.9 Monocytes % 9.5 Eosinophils % 2.5 Basophils % 0.4 Nucleated RBC % Absolute Neutrophils 2.89 Absolute Lymphocytes 1.74 Absolute Monocytes 0.50 Absolute Eosinophils 0.13 Absolute Basophils 0.02 ESR 1 VBG Lactate 3.4 H* Sodium 142 Potassium 4.3 Chloride 105 Carbon Dioxide 25.1 Anion Gap 11.9 H BUN 6 L Creatinine 0.76 Est GFR (CKD-EPI 2020) 84.04 Glucose 98 Calcium 8.8 Total Bilirubin 0.3 AST 207 H ALT 210 H Alkaline Phosphatase 171 H Troponin I < 3 C-Reactive Protein 3.82 H Total Protein 8.3 H Albumin 4.4 Serum HCG, Qual Negative Random Vancomycin Urine Opiates Screen Negative Urine Methadone Screen Positive A Urine Fentanyl Screen Negative Ur Barbiturates Screen Negative Ur Tricyclics Screen Negative Ur Amphetamines Screen Positive A U Benzodiazepines Scrn Negative Urine Cocaine Screen Negative U Cannabinoids Screen Negative Ethyl Alcohol Urine Xylazine Pending COVID-19 Source Nasopharynx SARS-CoV-2 (PCR) Negative Influenza Type A (PCR) Negative Influenza Type B (PCR) Negative RSV (PCR) Negative 02/23/25 02/23/25 02/24/25 15:52 18:21 06:35 WBC 3.92 L RBC 3.60 L Hgb 10.9 L Hct 34.3 L MCV 95 MCH 30.3 MCHC 31.8 L RDW 13.4 Plt Count 170 MPV 9.1 Immature Gran % 0.3 Neutrophils % 54.3 Lymphocytes % 29.1 Monocytes % 11.0 Eosinophils % 4.8 Basophils % 0.5 Nucleated RBC % 0.0 Absolute Neutrophils 2.13 Absolute Lymphocytes 1.14 L Absolute Monocytes 0.43 Absolute Eosinophils 0.19 Absolute Basophils 0.02 ESR VBG Lactate 1.5 Sodium 139 Potassium 4.5 Chloride 105 Carbon Dioxide 26.4 Anion Gap 7.6 BUN 10 Creatinine 0.76 Est GFR (CKD-EPI 2020) 84.04 Glucose 83 Calcium 8.4 Total Bilirubin 0.2 AST 162 H ALT 168 H Alkaline Phosphatase 140 H Troponin I < 3 C-Reactive Protein Total Protein 6.6 Albumin 3.6 Serum HCG, Qual Random Vancomycin Urine Opiates Screen Urine Methadone Screen Urine Fentanyl Screen Ur Barbiturates Screen Ur Tricyclics Screen Ur Amphetamines Screen U Benzodiazepines Scrn Urine Cocaine Screen U Cannabinoids Screen Ethyl Alcohol 207.2 H Urine Xylazine COVID-19 Source SARS-CoV-2 (PCR) Influenza Type A (PCR) Influenza Type B (PCR) RSV (PCR) 02/24/25 02/25/25 02/26/25 19:36 06:40 05:30 WBC 4.65 4.50 RBC 3.52 L 3.48 L Hgb 10.6 L 10.9 L Hct 33.2 L 33.1 L MCV 94 95 MCH 30.1 31.3 MCHC 31.9 L 32.9 RDW 13.2 13.2 Plt Count 160 190 MPV 8.8 9.3 Immature Gran % 0.2 0.2 Neutrophils % 58.8 53.6 Lymphocytes % 24.3 27.1 Monocytes % 9.0 11.1 Eosinophils % 7.3 7.8 Basophils % 0.4 0.2 Nucleated RBC % 0.0 0.0 Absolute Neutrophils 2.73 2.41 Absolute Lymphocytes 1.13 L 1.22 Absolute Monocytes 0.42 0.50 Absolute Eosinophils 0.34 0.35 Absolute Basophils 0.02 0.01 ESR VBG Lactate Sodium 140 140 Potassium 4.0 3.9 Chloride 106 103 Carbon Dioxide 26.7 29.9 Anion Gap 7.3 7.1 BUN 10 13 Creatinine 0.76 0.76 Est GFR (CKD-EPI 2020) 84.04 84.04 Glucose 120 H 131 H Calcium 8.4 8.7 Total Bilirubin 0.2 0.2 AST 139 H 138 H ALT 162 H 162 H Alkaline Phosphatase 141 H 148 H Troponin I C-Reactive Protein 1.41 H Total Protein 6.8 7.1 Albumin 3.7 3.9 Serum HCG, Qual Random Vancomycin 10.0 15.7 Urine Opiates Screen Urine Methadone Screen Urine Fentanyl Screen Ur Barbiturates Screen Ur Tricyclics Screen Ur Amphetamines Screen U Benzodiazepines Scrn Urine Cocaine Screen U Cannabinoids Screen Ethyl Alcohol Urine Xylazine COVID-19 Source SARS-CoV-2 (PCR) Influenza Type A (PCR) Influenza Type B (PCR) RSV (PCR) 02/27/25 05:40 WBC 4.26 L RBC 3.33 L Hgb 10.0 L Hct 31.5 L MCV 95 MCH 30.0 MCHC 31.7 L RDW 13.2 Plt Count 169 MPV 9.4 Immature Gran % 0.2 Neutrophils % 59.9 Lymphocytes % 22.5 Monocytes % 10.6 Eosinophils % 6.3 Basophils % 0.5 Nucleated RBC % 0.0 Absolute Neutrophils 2.55 Absolute Lymphocytes 0.96 L Absolute Monocytes 0.45 Absolute Eosinophils 0.27 Absolute Basophils 0.02 ESR VBG Lactate Sodium 140 Potassium 4.3 Chloride 104 Carbon Dioxide 28.1 Anion Gap 7.9 BUN 13 Creatinine 0.72 Est GFR (CKD-EPI 2020) 89.45 Glucose 94 Calcium 8.6 Total Bilirubin AST ALT Alkaline Phosphatase Troponin I C-Reactive Protein 1.43 H Total Protein Albumin Serum HCG, Qual Random Vancomycin Urine Opiates Screen Urine Methadone Screen Urine Fentanyl Screen Ur Barbiturates Screen Ur Tricyclics Screen Ur Amphetamines Screen U Benzodiazepines Scrn Urine Cocaine Screen U Cannabinoids Screen Ethyl Alcohol Urine Xylazine COVID-19 Source SARS-CoV-2 (PCR) Influenza Type A (PCR) Influenza Type B (PCR) RSV (PCR) Preliminary micro results at discharge 02/24/25 13:56 Blood Blood Culture - Preliminary NO GROWTH 48 HOURS 02/24/25 14:20 Blood Blood Culture - Preliminary NO GROWTH 48 HOURS 02/23/25 14:38 Blood Blood Culture - Preliminary Enterococcus faecalis 02/23/25 14:29 Blood Blood Culture - Preliminary Enterococcus faecalis [facility] All Active Problems (Updated 02/26/25 @ 12:09 by Martín Jasso) Enterococcal bacteremia (Acute) Left leg DVT (Acute) Abscess of left thigh (Acute) Transaminitis (Acute) Severe sepsis (Acute) Substance abuse in remission (Acute) Gram-positive cocci bacteremia (Acute) Blood culture positive for microorganism (Acute) Cellulitis of left hip (Acute) Alcohol abuse (Acute) Contusion of left lower leg, initial encounter (Acute) Mild tricuspid regurgitation (Chronic) Smoker (Acute) History of prior with IUGR (Acute 01/11/15) History of kidney injury (Acute 01/17/16) Acute January, History of drug abuse (Acute 01/17/16) In IP treatment at [place], no longer on methadone as of 01/17/16. [address] is close to resolved - will end . She is expecting 1st daughter to come home. Insomnia (Acute) Anxiety (Chronic) Anemia (Chronic) Opioid dependence (Acute) Mitral regurgitation (Chronic) Medical History Cardiomyopathy (01/22/16) Hepatitis C IVDU (intravenous drug user) Methadone maintenance therapy patient Exhausted vascular access Left posterior fascicular block (LPFB) RBBB Closed head injury Cardiac arrest with successful resuscitation Pulmonary nodules Anemia Alcohol abuse Hx of cocaine abuse Personality disorder Herpes, vulvar PTSD (post-traumatic stress disorder) ADHD Subacute endocarditis (01/22/16) MSSA endocarditis January, HSV infection Hx of who one week after . ? HSV or H1N1 infection. Pt has been on prophylaxis with pregnancies. Depression difficulty bonding with 2nd child. child removed from her custody. was on Wellbutrin but had sz and not on meds at this time. has appt with counselor 03/2015 Surgical History section (11/24/12) [facility]CD @ 35w. [id number]. 03/26/[place] RCD. Pt arrived in labor and declined SUN. F. Jessica. Amputation 12/23/16;[facility]; RIGHT BELOW THE KNEE Family History Mother No problems noted. Father No problems noted. Brother No problems noted. Grandfather No problems noted. Grandfather No problems noted. Grandmother No problems noted. Grandmother No problems noted. Son No problems noted. Son No problems noted. Daughter No problems noted. Daughter No problems noted. Social History Smoking/Tobacco Use Status: Current every day Tobacco Type: cigarettes and e- cigarettes Smoking risk assessment performed?: Yes Alcohol Intake: current Alcohol Intake frequency: a few times a month Alcohol type: beer Drug use: Current Sobriety Substance use type: former substance user, crack/cocaine, heroin, amphetamines, opiates, IV drugs, methamphetamine and unknown Housing: house Do you feel safe at home: Yes Do you feel safe in your relationship?: Yes Additional Social history: pt states she is on methadone, states lives with parents History History 4 Para 4 Hx # Term Pregnancies Multiple births Hx # Pregnancies Ectopic pregnancies AB induced Hx Number of Living Children 3 AB spontaneous Past Pregnancies Del. Date GA/Weeks # Preg Succ Route Wgt Sex Labor [facility] Delivery Date: 12/28/20 Last Updated by: Roxanna Rocha LPN Patient transferred OB care to [facility] Time Spent with Patient Time Spent with Patient: >85 minutes Time was spent: preparing to see the patient(eg.review tests), obtaining and/or reviewing separately otained hiistory, ordering medications,tests, procedures, referring, communicating with other health coronary care unit nurse, indepentently interpreting results, counseling the patient, care coordination and other
[2025-02-27] MEDS: DALBAVANCIN 1,500 MG in DEXTROSE 5%-WATER 325 ML 650 MG IVPB (16:09)
--- NOTE | 2025-02-27 16:13 | PDOC.CMDIS ---
Date of service: 02/27/25 Time of Service: 16:13 LACE Index Scoring Tool Questions: Length of Stay (in days): 4 - 6 Was the patient admitted via the E.D.?: Yes Comorbidities: Previous M.I. and Liver or Renal Disease E.D. Visits: 14 Answers: Total Score: 16 Risk of Readmission: High Risk Care Management Discharge Plan Reason for Hospitalization: enterococcal bacteremia Discharge Plan: Denisse will discharge this afternoon with no new home care services. She will be given a last dose letter for BAART. Denisse will come to outpatient infusion on 03/06 for a dose of dalbavancin, (infusion will call her with an appointment time) and she received a dose prior to discharge. Denisse will f/u with her PCP and continue per her plan of care. Denisse will transport home with her Dad. Patient/Family Education Needs: Review of discharge instructions, activity, limitations and discuss Ask me 3. Services Needed at Discharge: Infusion Therapy (outpatient appointment on 03/06) SDOH Health Related Social Needs: Health related social needs house/econ circumstance lonely/isolated Health related social needs details patient utilizes the [facility]
[2025-02-27] MEDS: Fluconazole 150 MG TAB PO (17:26)
[2025-02-28 09:13] LABS: Xylazine, Confirmation Urine Negative ng/mL (<50)
--- NOTE | 2025-02-28 14:40 | NUR.NOTE ---
Chart open to note that follow up with primary care was done. Nursing Note:
== END 2025-02-27 17:30 | disposition home or self-care (01) | DRG 872 ==
LOC: ER 13:21 → MS 17:47
PROVIDERS: Admitting Provider Family Medicine; Emergency Provider Physician Assistant; PCP Physician Assistant; Responsible Provider Nurse Practitioner Acute Care; Visit Provider Family Medicine
DX: A41.81 Sepsis due to Enterococcus (principal); L03.116 Cellulitis of left lower limb; L02.416 Cutaneous abscess of left lower limb; I45.2 Bifascicular block; F11.20 Opioid dependence, uncomplicated; R65.20 Severe sepsis without septic shock; F10.10 Alcohol abuse, uncomplicated; F32.A Depression, unspecified; F19.11 Other psychoactive substance abuse, in remission; F90.9 Attention-deficit hyperactivity disorder, unspecified type; F41.9 Anxiety disorder, unspecified; R74.01 Elevation of levels of liver transaminase levels; B95.2 Enterococcus as the cause of diseases classified elsewhere; Z89.511 Acquired absence of right leg below knee; B95.62 Methicillin resistant Staphylococcus aureus infection as the cause of diseases classified elsewhere; F17.210 Nicotine dependence, cigarettes, uncomplicated; G47.00 Insomnia, unspecified; D64.9 Anemia, unspecified; I08.1 Rheumatic disorders of both mitral and tricuspid valves; F43.10 Post-traumatic stress disorder, unspecified; R91.8 Other nonspecific abnormal finding of lung field; F14.11 Cocaine abuse, in remission; Z86.74 Personal history of sudden cardiac arrest; Z59.9 Problem related to housing and economic circumstances, unspecified
CPT/HCPCS: 00123; 36415; 76942; 80048; 80053; 80307; 80375; 81025; 85652; 87040; 87077; 87637; 93005; 96365; 96368; 99285; J1650; 71046; 73502; 73701; 80202; 80320; 83605; 84484; 84703; 85025; 86140; 87186; 93010; 93306; 99223; 99232; 99233; 99239; J0290; J0875; J2543; J3373; J3490; Q9967